=== PATIENT | female | born 1995 | race Caucasian/White ===

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

== ENCOUNTER 2024-05-20 09:55 | Inpatient (IN) ==
--- NOTE | 2024-05-20 10:21 | Emergency Department Note ---
Impression & Plan Elevated troponin ADMIT ED Provider Note HPI: History obtained from patient. The patient is a 29-year-old female who presents the emergency department with a chief complaint of fatigue, dyspnea, night sweats, and generalized arthralgias. Patient states that she has been having the symptoms for about the past year, patient states over the past 2 months she feels that they are getting worse. Patient states she is been working with her PCP and her nail kegger but they are unsure as of yet what exactly is causing her symptoms. Patient states at times she does get some headaches and shortness of breath as well. Patient notes that she was recently started on injectables (adalimumab) for her arthritis and she had an injection on April 28 as well as May 12 and she believes that this is actually worsened some of her symptoms. On arrival here to the ED the patient is noted to be tachycardic at 136, otherwise hemodynamically stable, she otherwise appears to be in no acute distress on my initial assessment. ROS: - Per HPI Differential Diagnosis: Rheumatoid arthritis, sepsis, urinary tract infection, pneumonia, adverse reaction to medication, myocarditis, pericarditis, pulmonary embolism, amongst other potential pathologies. *Outpatient medications and allergy history reviewed. PE: General: Alert HEENT: Normocephalic, trachea midline Eyes: Extraocular eye movement is intact, no scleral erythema Pulmonary: Clear to auscultation bilaterally, no wheezing Cardio: Tachycardic rate with regular rhythm GI: Abdomen is soft to palpation : No suprapubic tenderness MSK: No evidence of trauma or malformation of the extremities, no edema Skin: No evidence of rash Neuro: Alert, no focal deficits Psychiatric: Cooperative INDEPENDENT INTERPRETATIONS: monitor technician: (As interpreted by myself): - An order was placed for continuous cardiac monitoring - Patient was noted to be in sinus rhythm with a rate of 110 EKG: (As interpreted by myself): Rate: 104 Rhythm: Sinus tachycardia Intervals: Within normal limits ST changes: No ST elevation Time: 1028 Chest x-ray: (As interpreted by myself): No acute disease Interventions provided in ED: -IV fluid bolus Medical Decision Making: IV was established and lab work obtained, patient was placed on monitor technician. Lab work shows a mild nonspecific leukopenia at 1.83, hemoglobin is stable at 10.7, platelet count is normal. D-dimer was obtained given the patient's dyspnea and tachycardia, this is elevated at 2740, CMP does not show any evidence of any critical findings otherwise. Troponin did return elevated at 56.9 however the patient denies any chest pain. Urinalysis does not show any convincing evidence of infection and viral panel testing is negative. Lyme disease testing was added given the patient's elevated troponin. CT angiography of the chest was obtained as the patient's D-dimer was elevated, this does not show any evidence of pulmonary embolism, there is no evidence of pericardial effusion per the interpreting radiologist. On my reassessment the patient remains tachycardic, repeat troponin is down trended slightly to about 54. Given the patient's persistent tachycardia with unclear source for her troponin elevation, I do feel she would benefit from admission for observation and likely echocardiogram to be performed. Patient is in agreement to this plan, case was discussed with the on-call midlevel provider for [facility] and the patient was placed for admission in stable condition to the service of Dr. Quick. Consultants/Discussions held with other healthcare providers: -Hospitalist, Dr. Quick Disposition discussion held by myself with: -Patient and mother at the bedside Diagnosis: 1. Elevated troponin, acute, nonspecific 2. Dyspnea, acute, nonspecific 3. Sinus tachycardia Disposition: Admission Maikol Roman DO Emergency Medicine Past Med/Surg History Problem List (Updated 05/20/24 @ 14:33 by Maikol Roman DO) Elevated troponin (Acute) Anxiety Medical History No pertinent family history Anxiety Surgical History No pertinent past surgical history Family History Grandfather (Paternal) Myocardial infarction Father Myocardial infarction Family/Other Diabetes cousin Grandmother (Maternal) Pancreatoblastoma Social History Smoking Status: Never smoker Do You Dip or Chew Tobacco: No; Preferred Language: Austrian Feels Safe at Home: Yes Allergies Allergies Allergy/AdvReac Type Severity Reaction Status Date / Time adalimumab-atto Allergy Severe Chills and Unverified 05/20/24 12:40 [From Amjevita(CF)] hot flashes sulfasalazine Allergy Severe Unknown Unverified 05/20/24 12:40 Skin Reaction Home Meds Home Medications Medication Instructions Recorded Confirmed fluoxetine 20 mg capsule 20 mg PO QPM 04/01/24 05/20/24 norethindrone 1 mg-ethinyl 1 tab PO QPM 04/01/24 05/20/24 estradiol 20 mcg (21)-iron 75 mg (7) tablet (Melinda Fe 08/10 (28)) prednisone 5 mg tablet See Rx Instructions .Route .COMPLEX 04/01/24 05/20/24 baclofen 5 mg tablet 5 mg PO HS PRN Muscle Spasms 05/20/24 05/20/24 ferrous sulfate 325 mg (65 mg 325 mg PO Q2D 05/20/24 05/20/24 iron) tablet naratriptan 2.5 mg tablet 2.5 mg PO HS PRN Headache 05/20/24 05/20/24 topiramate 25 mg tablet See Rx Instructions .Route .COMPLEX 05/20/24 05/20/24 Results & Data (ED) Vital Signs Vital Signs - 24 hr 05/20/24 10:02 05/20/24 10:18 05/20/24 10:48 Temperature 37.6 C H Temperature Source Temporal Artery Scan Pulse Rate 136 H 109 H Pulse Rate [Apical] Pulse Rhythm Regular Respiratory Rate 18 18 Respiratory Effort / Characteristics Non-Labored Spontaneous Respiratory Depth Normal Respiratory Pattern Regular Blood Pressure 107/66 Blood Pressure [Right Arm] Blood Pressure Mean 79 Blood Pressure Mean [Right Arm] Pulse Oximetry 97 99 Oxygen Delivery Method Room Air Room Air Room Air Sepsis Recent Fever Within 48 Hours No Sepsis New/Unexplained Change in Mental Status No Sepsis Action Taken by Nursing No Action Required 05/20/24 11:56 05/20/24 12:32 05/20/24 12:46 Temperature Temperature Source Pulse Rate 112 H Pulse Rate [Apical] 113 H 89 Pulse Rhythm Respiratory Rate 20 20 Respiratory Effort / Characteristics Non-Labored Non-Labored Respiratory Depth Normal Normal Respiratory Pattern Blood Pressure Blood Pressure [Right Arm] 107/64 Blood Pressure Mean Blood Pressure Mean [Right Arm] 78 Pulse Oximetry 98 98 Oxygen Delivery Method Room Air Room Air Sepsis Recent Fever Within 48 Hours Sepsis New/Unexplained Change in Mental Status Sepsis Action Taken by Nursing 05/20/24 13:12 Temperature Temperature Source Pulse Rate Pulse Rate [Apical] 109 H Pulse Rhythm Respiratory Rate 20 Respiratory Effort / Characteristics Non-Labored Respiratory Depth Normal Respiratory Pattern Blood Pressure Blood Pressure [Right Arm] 109/67 Blood Pressure Mean Blood Pressure Mean [Right Arm] 81 Pulse Oximetry 99 Oxygen Delivery Method Room Air Sepsis Recent Fever Within 48 Hours Sepsis New/Unexplained Change in Mental Status Sepsis Action Taken by Nursing Laboratory Data 05/20/24 10:35 05/20/24 10:35 Lab Results 05/20/24 05/20/24 05/20/24 Range/Units 10:35 12:28 12:43 WBC 1.83 L (4.8-10.8) K/ul RBC 4.05 L (4.20-5.40) M/uL Hgb 10.7 L (12.0-16.0) g/dl Hct 32.2 L (37.0-47.0) % MCV 79.5 L (80.0-100.0) fL MCH 26.4 (25.0-34.0) pg MCHC 33.2 (32.0-36.0) g/dL RDW Std Deviation 50.4 H (36.4-46.3) fL RDW Coeff of Jackie 17.6 H (11.5-14.5) % Plt Count 331 (130-400) K/uL MPV 8.2 L (9.4-12.4) fL Immature Gran % (Auto) 1.6 % Neut % (Auto) 82.0 % Lymph % (Auto) 14.8 % Moore % (Auto) 1.6 % Eos % (Auto) 0.0 % Baso % (Auto) 0.0 % Neut # (Auto) 1.50 (1.40-6.50) K/uL Lymph # (Auto) 0.27 L (1.20-3.40) K/uL Moore # (Auto) 0.03 L (0.11-0.59) K/uL Eos # (Auto) 0.00 (0.00-0.50) K/uL Baso # (Auto) 0.00 (0.00-0.20) K/uL Immature Gran # (Auto) 0.03 (0.01-0.20) K/uL PT 9.8 (9.0-12.0) Seconds INR 0.9 (0.9-1.1) D-Dimer 2740 H* (0-500) ug/L FEU Sodium 134 L (136-145) mmol/L Potassium 3.9 (3.5-5.1) mmol/L Chloride 100 (98-107) mmol/L Carbon Dioxide 29 (21-32) mmol/L Anion Gap 5 (3-11) BUN 11 (6-23) mg/dl Creatinine 0.58 L (0.6-1.2) mg/dl Est Cr Clr Drug Dosing 125.8 ml/min eGFR 127.12 BUN/Creatinine Ratio 19.0 (10-20) Glucose 97 (70-99(Fasting)) mg/dl Calcium 8.2 L (8.6-10.3) mg/dl Total Bilirubin 0.4 (0.2-1.0) mg/dl AST 145 H (13-39) U/L ALT 48 (7-52) U/L Alkaline Phosphatase 92 (34-104) U/L Troponin I High Sens 56.9 H* 54.3 H* (0-14) pg/ml Total Protein 6.8 (6.0-8.3) gm/dl Albumin 2.8 L (3.4-5.0) gm/dl Globulin 4.0 (2.5-4.0) gm/dl Albumin/Globulin Ratio 0.7 L (0.9-2) Lipase 58 (11-82) U/L TSH 3.824 (0.300-4.500) uIu/ml Urine Color Yellow Urine Appearance Clear (Clear) Urine pH 8.0 H (4.5-7.5) Ur Specific [place] 1.037 H (1.000-1.030) Urine Protein 1+ H (Negative) Urine Glucose (UA) Negative (Negative) Urine Ketones Negative (Negative) Urine Blood Trace H (Negative) Urine Nitrite Negative (Negative) Urine Bilirubin Negative (Negative) Urine Urobilinogen Negative (Negative) Ur Leukocyte Esterase Negative (Negative) Urine WBC (Auto) 0-5 (0-5) /hpf Urine RBC (Auto) 0-2 (0-2) /hpf U Hyaline Cast (Auto) 0-2 (0-2) /lpf U Epithel Cells (Auto) 0-2 (0-2) /hpf Urine Bacteria (Auto) None Seen (None Seen) Adenovirus (PCR) Not Detected (NotDetected) B. pertussis DNA (PCR) Not Detected (NotDetected) B.parapertussis DNA PCR Not Detected (NotDetected) C. pneumoniae DNA (PCR) Not Detected (NotDetected) Coronavirus OC43 (PCR) Not Detected (NotDetected) Coronavirus HKU1 (PCR) Not Detected (NotDetected) Coronavirus 229E (PCR) Not Detected (NotDetected) SARS-CoV-2 (PCR) Not Detected (NotDetected) Coronavirus NL63 (PCR) Not Detected (NotDetected) Human Metapneumovir PCR Not Detected (NotDetected) Influenza Type A (PCR) Not Detected (NotDetected) Influenza Type B (PCR) Not Detected (NotDetected) M. pneumoniae (PCR) Not Detected (NotDetected) Parainfluenza 1 (PCR) Not Detected (NotDetected) Parainfluenza 2 (PCR) Not Detected (NotDetected) Parainfluenza 3 (PCR) Not Detected (NotDetected) Parainfluenza 4 (PCR) Not Detected (NotDetected) RSV (PCR) Not Detected (NotDetected) Entero/Rhino (PCR) Not Detected (NotDetected) Administered Medications Discontinued Medications Sodium Chloride (Nss) 1,000 mls @ 999 mls/hr IV .Q1H1M ONE Stop: 05/20/24 12:38 Last Infusion: 05/20/24 13:14 Dose: Infused Documented By: Admin: 05/20/24 11:44 Dose: 999 mls/hr Documented By: JESSICA Ioversol (Optiray 320 125ml) 118 ml IV ONCE ONE Stop: 05/20/24 12:06 Last Admin: 05/20/24 12:06 Dose: 118 ml Documented By: CE Imaging Data Radiologist's Impression: Chest X-Ray 05/20/24 10:18 SINGLE VIEW CHEST CLINICAL HISTORY: Generalized weakness. FINDINGS: An AP, portable, upright chest radiograph is compared to study dated 10/19/2023. The cardiomediastinal silhouette is unremarkable. The lungs and pleural spaces are clear. No pneumothorax is seen. The bony thorax is grossly intact. IMPRESSION: No active disease in the chest. ACT 112: Negative or not required by law. Electronically signed by: Obdulio Bliss M.D. 05/20/2024 11:01 AM Chest CTA 05/20/24 11:38 CT ANGIOGRAM OF THE CHEST CLINICAL HISTORY: Tachycardia. Lightheadedness. Nausea. COMPARISON STUDY: Chest x-ray dated 05/20/2024. TECHNIQUE: Following the IV administration of 118 cc of Optiray 320, CT angiogram of the chest was performed from the upper abdomen to the thoracic inlet utilizing the pulmonary embolus protocol. Images are reviewed in the axial, sagittal, and coronal planes. 3-D MIPS images are created and assessed. IV contrast was administered without complication. A dose lowering technique was utilized adhering to the principles of ALARA. CT DOSE: 512.78 mGy.cm FINDINGS: Thyroid: Imaged portions of the thyroid gland are normal in size and attenuation. Thoracic aorta: The thoracic aorta is normal in caliber and demonstrates standard 3-vessel arch anatomy. No dissection is seen. Pulmonary vasculature: The pulmonary trunk is normal in caliber. There are no filling defects identified in main, lobar, or segmental pulmonary branches to suggest pulmonary embolus. Heart: The heart is normal in size and without pericardial effusion. Lungs and pleural spaces: There is a 4 mm right middle lobe pulmonary nodule seen on axial image #110. This is of doubtful significance in this age group. No airspace consolidation or pleural effusion is identified. The trachea and central airways are clear. There is mild dependent atelectasis. Mediastinum: There is no mediastinal lymphadenopathy. Loren: Clear. Axillae: There are shotty axillary lymph nodes. Upper abdomen: Partially visualized upper abdominal viscera is within normal limits. Skeletal structures: No lytic or blastic bony lesions are seen. IMPRESSION: 1. There is no evidence of pulmonary embolus in the main, lobar, or segmental pulmonary arteries. 2. There is no airspace consolidation or pleural effusion. 3. Additional findings as above. ACT 112: Negative or not required by law. Electronically signed by: Obdulio Bliss M.D. 05/20/2024 12:29 PM Discharge Plan Visit Data Chief Complaint: Allergic Reaction Stated Complaint: ALLERGIC/NEW MED, CHILLS/HOT, PALPITATION, NAUSEA ED Provider: Maikol Roman Discharge Problem: Elevated troponin Forms Stand Alone Forms: [facility] Prescriptions Prescriptions: No Action topiramate 25 mg tablet See Rx Instructions .ROUTE .COMPLEX Rx Instructions: As of 05/20/24 - Pt is still on 25mg at bedtime, will start increase on 05/25/24 . Original Directions: TAKE 1 TABLET BY MOUTH EVERY NIGHT AT BEDTIME FOR 7 DAYS, THEN 2 TABS AT BEDTIME FOR 7 DAYS, THEN 3 TABS AT BEDTIME FOR 7 DAYS, THEN 4 TABS AT BEDTIME ferrous sulfate 325 mg (65 mg iron) Tablet 325 mg PO Q2D naratriptan 2.5 mg tablet 2.5 mg PO HS PRN (Reason: Headache) baclofen 5 mg tablet 5 mg PO HS PRN (Reason: Muscle Spasms) norethindrone-e.estradiol-iron [Melinda Doll 08/10 ()] 1 mg-20 mcg (21)/75 mg (7) tablet 1 tab PO QPM fluoxetine 20 mg capsule 20 mg PO QPM prednisone 5 mg tablet See Rx Instructions .ROUTE .COMPLEX Rx Instructions: take 4 tablets by mouth daily for 7 days, 3 tablets daily for 7 days, 2 tablets daily for 7 days, 1 tablet daily for 7 days. As of 05/20/24, pt took last dose of 10mg daily, Pt starts 5mg daily x7 days starting 05/21/24 Referrals Referrals: Payal Myers MD [Primary Care Provider] -
--- NOTE | 2024-05-20 11:02 | XRay Report ---
SINGLE VIEW CHEST CLINICAL HISTORY: Generalized weakness. FINDINGS: An AP, portable, upright chest radiograph is compared to study dated 10/19/2023. The cardiom ediastinal silhouette is unremarkable. The lungs and pleural spaces are clear. No pneumothorax is see n. The bony thorax is grossly intact. IMPRESSION: No active disease in the chest. ACT 112: Negative or not required by law. Electronically signed by: Obdulio Bliss M.D. 05/20/2024 11:01 AM
[2024-05-20 11:05] LABS: Hematocrit (blood only) 32.2 % (37.0-47.0); Hemoglobin 10.7 g/dl (12.0-16.0); Immature Granulocytes # (auto) 0.03 K/uL (0.01-0.20); Immature Granulocytes % (auto) 1.6 %; Lymphocytes # (auto) 0.27 K/uL (1.20-3.40); Lymphocytes % (auto) 14.8 %; Mean Corpuscular Hemoglobin 26.4 pg (25.0-34.0); Mean Corpuscular Hgb Conc 33.2 g/dL (32.0-36.0); Mean Corpuscular Volume 79.5 fL (80.0-100.0); Mean Platelet Volume 8.2 fL (9.4-12.4); Monocytes # (auto) 0.03 K/uL (0.11-0.59); Monocytes % (auto) 1.6 %; Platelet Count 331 K/uL (130-400); RDW Coefficient of Variation 17.6 % (11.5-14.5); RDW Standard Deviation 50.4 fL (36.4-46.3); Red Blood Count 4.05 M/uL (4.20-5.40); White Blood Count 1.83 K/ul (4.8-10.8)
[2024-05-20 11:22] LABS: Albumin Globulin Ratio 0.7 (0.9-2); Albumin Level 2.8 gm/dl (3.4-5.0); Bilirubin,Total 0.4 mg/dl (0.2-1.0); Calcium 8.2 mg/dl (8.6-10.3); Creatinine Clr Calc Pharmacy 125.8 ml/min; Potassium 3.9 mmol/L (3.5-5.1); Total Protein 6.8 gm/dl (6.0-8.3)
[2024-05-20 11:31] LABS: Troponin I High Sensitivity 56.9 pg/ml (0-14)
[2024-05-20 11:35] LABS: INR 0.9 (0.9-1.1); Prothrombin Time 9.8 Seconds (9.0-12.0)
[2024-05-20 11:38] LABS: D Dimer 2740 ug/L FEU (0-500); Thyroid Stimulating Hormone 3.824 uIu/ml (0.300-4.500)
--- OUTSIDE RECORDS SUMMARY | 2024-05-20 11:43 | External Medical Summary | Summary of Care ---
Author Name Unknown Organization [facility] Address [address] [place] [address] Phone [phone] Care Team Providers Care Telemarketer Name Role Phone Payal Myers MD Primary Care Provider [phone] Reason for Referral * Evaluate & Treat - Unlimited Visits (Within 10 days (routine)) - Pending Review Specialty Diagnoses / Procedures Referred By Conttaryn t Referred To Contact Pharmacist / Pharmacy Diagnoses Seronegative inflammatory arthritis Michelle Lima CRNP [address] [facility] [facility] [place] [address] Referral ID Status Reason Start Date Expiration Date Visits Requested Visits Authorized [id number] Pending Review Specialty Services Required 04/13/2024 10/10/2024 99 99 Question Answer Referral Priority Within 10 days (routine) Referring Provider Role: Specialist Specialty: Rheum Reason for Referral: Med Education Where should this appointment be scheduled? [facility] Reason for Visit * Reason Onset Date Comments Precert Approved 04/13/2024 AMJEVITA(CF) 40 MG/0.4ML AUTOIN Encounter Details Date Type Department Care Team (Late st Contact Info) Description 04/13/2024 Refill Rheumatology [address] [place] [phone] Michelle Lima CRNP [address] [facility] [place] [address] Seronegative inflammatory arthritis* Allergies Active Allergy Reactions Criticality Noted Date Comments Sulfasalazine Rash Medium 10/23/2023 documented as of this encounter (statuses as of 04/17/2024) Medications Medication Sig Dispensed Refills Start Date End Date Status 08/10 1-20 MG-MCG per tablet 1 Tablet in the morning. 11/16/2016 Active FLUoxetine HCl 20 MG Oral Capsule (PROzac)Indications :LUDA (generalized anxiety disorder) Take 1 Capsule by mouth in the morning. 90 Capsule 3 01/16/2024 Active Ferrous Sulfate 325 (65 Fe) MG Oral Tablet Delayed Release Take 1 Tablet by mouth. Every other day. Active predniSONE 5 MG Oral Tablet (Deltasone) Take 4 Tablets by mouth daily for 14 days, THEN 3 Tablets daily for 14 days, THEN 2 Tablets daily for 14 days, THEN 1 Tablet daily for 14 days. 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 Iron deficiency 02/28/2024 LUDA (generalized anxiety disorder) 10/09/2023 Seronegative inflammatory arthritis 10/09/2023 documented as of this encounter (statuses as of 04/17/2024) Immunizations Name Administration Dates Next Due COVID-19 mRNA, LNP-s, No Pre serve, 2-Dose Series (Moderna) 12/04/2020,11/06/2020 DTaP Dipth/Tet/Acell Pertussis (Infanrix), Peds 09/25/2001,10/18/1998,1997,08/19,1997 H1N1 2009 Influenza, IM 05/30/2009 HIB PRP-T, 4 Dose, PF, IM (H iberix, ActHib) 04/20/1998,1997,1997,06/22 HPV Vaccine, 4-Valent 09/13/2009,05/13/2009,02/19 Haemophilius B (HIB), unspecified 1997,1997,1997,06/22 Hepatitis A, Ped/Adol., 18 y ear and below, 2-Dose 02/06/2013,02/05/2012 Hepatitis B, 0-19 yrs 1997,1997,03/23 IPV - Polio Virus Vaccine (Inact) 2001,04/20/1998,1997,06/22 MMR - Measles/Mumps/Rubella Vaccine 09/25/2001,0 04/20/1998 Meningococcal Conjugate Vacc ine (Menactra/Menveo) 02/04/2014,01/30/2010 Seasonal Influenza, PF, 6 M & above, IM , (FluLaval or Fluzone) 05/02/2020,08/03/2019 Seasonal Influenza, Quadrivalent, ID 05/02/2020, 08/03/2019 TDAP (age 10 and older)(Boostrix) 01/12/2021,06/2010 Varicella Vaccine (Chicken Pox) 05/30/2007,04/20 documented as of this encounter Social History Tobacco Use Types Packs/Day Years Used Date Smoking Tobacco: Never Smokeless Tobacco: Never Alcohol Use Standard Drinks/Week Comments Yes 0 (1 standard drink = 0.6 oz pur e alcohol) occasionaly PHQ-2 Answer Date Recorded PHQ Adult Total Score 0 02/28/2024 Hunger Vital Sign Answer Date Recorded Within the past 12 months, y ou worried that your food would run out before you got the money to buy more. Never true 02/28/20 24 Within the past 12 months, t he food you bought just didn't last and you didn't have money to get more. Never true 02/28/2024 Childcare Answer Date Recorded Do you feel overwhelmed with taking care of a child, family member or friend? No 02/28/2024 Does your family need help f inding childcare? (Household - for ages 0-17 years) Not on file 02/28/2024 Clothing Answer Date Recorded Have you been unable to get clothing when it was really needed? No 02/28/2024 Is your family able to get c lothes or diapers when needed? (Household - for ages 0-17 years) Not on file 02/28/2024 Personal Safety Answer Date Recorded Do you feel unsafe or have concerns for your saf ety? No 02/28/2024 Do you have concerns for you r family's safety? (Household - for ages 0-17 years) Not on file 02/28/2024 Utilities Answer Date Recorded Do you have trouble paying y our heating, water, or electric bill? No 02/28/2024 Is your family able to pay t he heat, water, or electric bill? (Household - for ages 0-17 years) Not on file 02/28/2024 Does your family have access to good internet? (Household - for ages 0-17 years) Not on file 02/28/2024 Employment Status Answer Date Recorded Are you unemployed or without regular income? No 02/28/2024 Does the household have a re lar source of income? (Household - for ages 0-17 years) Not on file 02/28/2024 Social Connections Answer Date Recorded How often do you feel lonely or isolated from th ose around you? Never 02/28/2024 Financial Resource Strain Answer Date R ecorded Do you have any trouble payi ng for your medications, or do you think you might in the future? No 02/28/2024 Does your family have troubl e paying for medicine? (Household - for ages 0-17 years) Not on file 02/28/2024 Transportation Needs Answer Date Record ed Do you have trouble getting a ride to medical visits or work? (Adult - for ages 18 years and over) Not on file 02/28/2024 Does your family have a hard time getting a ride to doctors visits? (Household - for ages 0-17 years) Not on file 02/28/2024 Has lack of transportation k ept you from medical appointments, meetings, work, or from getting things needed for daily living? Check all that apply. No 02/28/2024 Do you (or your family) have trouble finding or paying for a ride (transportation)? (Household - for ages 0-17 years) Not on file 02/28/2024 Housing Stability Answer Date Recorded Do you currently live in a s helter or have no steady place to sleep at night? No 02/28/2024 Do you think you are at risk of becoming homeless? (Adult - for ages 18 years and over) Not on file 02/28/2024 Does your family worry about paying for your home or becoming homeless? (Household - for ages 0-17 years) Not on file 0 02/28/2024 Are you homeless or worried that you might be in the future? No 02/28/2024 Are you (or your family) nnamdi eless or worried that you might be in the future? (Household - for ages 0-17 years) Not on file Food Insecurity Answer Date Recorded Do you need food for this week? No 02/28/2024 Are you able to get enough f ood for your family? (Household - for ages 0-17 years) Not on file 02/28/2024 Does your family need food t his week? (Household - for ages 0-17 years) Not on file 02/28/2024 Do you always have enough fo od for your family? (Household - for ages 0-17 years) Not on file 02/28/2024 Sex and Gender Information Value Date Recorded Sex Assigned at Female 08/03/2019 10:35 AM EST Gender Identity Female 08/03/2019 10:35 AM EST Sexual Orientation Straight 08/03/2019 10 :35 AM EST Job Start Date Occupation Industry Not on file Not on file Not on file documented as of this encounter Miscellaneous Notes * Addendum Note - Lu Mandel CPhT - 04/17/2024 1:15 PM EDTAddended by: LU MANDEL on: 04/17/2024 01:15 PM Modules accepted: Orders * Telephone Encounter - Lu Mandel CPhT - 04/17/2024 1:15 PM EDT Rheumatology Pre-Certification Response Approved - Script pended - to be filled at [facility] (P: [phone]) Thank you, Lu Mandel CPhT-Adv Engineering Equipment Operator Inventory Control Supervisor [facility] ([facility]) 04/17/2024,1:15 PM * Telephone Encounter - Екатерина Love CPhT - 04/15/2024 12:09 PM EDT Patient Phone Numbers Sent [employer] message to patient to schedule MTD appointment for Medication Education. Appointment scheduled as noted below. 04/27/2024 Thank you, Екатерина Love CPhT Engineering Equipment Operator II [facility] ([facility]) 04/15/2024,12:09 PM * Telephone Encounter - Michelle Lima CRNP - 04/13/2024 4:12 PM EDT Please proceed with Hannah. ID cleared her in the past. Thank you * Telephone Encounter - Nirali Begum [facility] - 04/13/2024 11:41 AM EDT Rheumatology Pre-Certification Request Kathrin: I see that the TB was indeterminate but CXR seems WNL. Please advise if we are ok to proceed. Medication/Disease State Information: Diagnosis: Rheumatoid arthritis of multiple sites without rheumatoid factor [M06.09] Patient Age: [age] year old Medication/Dose/Route/Interval: Amjevita 40mg/0.4mL every other week Site of Care: Self-Administered Insurance considerations: [facility] Commercial: Formulary reviewed and medication selection on formulary Previously Tried Therapy: Previously tried and resulted in inadequate response/therapeutic failure: SSZ, Cimzia, MTX (Childbearing age), NSAID, Prednisone Required Screening Information: Vaccination(s): will coordinate care for pertinent vaccine TB Testing:Completed under scans, care everywhere or epic Hepatitis B Screenings: Completed under scans, care everywhere or epic Hepatitis C Screenings: Completed under scans, care everywhere or epic No active, severe, and/or uncontrolled infection Rheumatology Office Information: Jet Blade Polisher: MICHELLE LIMA Rheumatology Pharmacist: Nirali Begum Rheumatology Pharmacist Appointment Request Department & Provider: Rheumatology [address] [[id number]] - Pharmacist #1 Rheumatology [facility] [[id number]] Patient to be scheduled for visit type: Telephonic Medicine Visit [[id number]] Length of visit: 30 min Reason for visit: Med Edu: Narda MOSQUEDA Time Frame: within 1-2 weeks Request routed to [facility] Specialty Scheduling Pool ([id number]) Please route this encounter back to Rheum Pharmacist Refill Pool/Class [p [phone]] if unable to schedule patient after 3 attempts. * Telephone Encounter - LimaMichelle CRNP - 04/13/2024 11:16 AM EDT Rheumatology Education, Pre-Certification, and/or Pharmacist Co-Management Request Medication Education: yes Pre-Certification: [facility]: Pre-cert for Prednisone, DMARDs & IV/IM/SC Osteoporosis Meds (routeto rheumatology pharmacist pool p [phone]) Pharmacist Co-Management ([facility] ONLY; [place] select "no"): No Pharmacist Co-Management Medication/Disease State Information: Diagnosis: Rheumatoid arthritis of multiple sites without rheumatoid factor [M06.09] Medication:Adalimumab (Humira and biosimilars) per specialty workflow: 40 mg SQ every other week Failed or Intolerant to or Contraindicated: Cimzia and Sulfasalazine Comments Labs up to date Rheumatology Pharmacist Disease Modifying Antirheumatic Drug (DMARD) Co- Management (If Applicable) Minimum frequency patient should be seen in person for medication management: As appropriate per clinical condition and patient status By my signature, I understand that my patient will have [facility] per established policies, procedures, and protocols. I also certify that this referral may serve as an initiation of service for the management of drug therapy in the above noted patient. [facility] providers will be responsible for scheduling patient visits, obtaining appropriate laboratory studies, and adjusting medication management therapy per patient's need, in addition to those roles spelled out in the clinic policy, procedures, and drug management protocols. I understand that the service provided by the [facility] is voluntary and have informed patient that they can refuse the service at their discretion. I am aware that the [facility] Clinic will provide me with a copy of the patient encounter via my [employer] In-Basket. I authorize the [facility] to carryout these activities on my behalf. I consider this program to be a necessary part of the patient's medical care. BRYCE Rhodes documented in this encounter Plan of Treatment Upcoming Encounters Date Type Department Care Team (Late st Contact Info) Description 04/27/2024 9:30 AM EDT Telemedicine Rheumatology, [address] [address] Agc5, Pharmacist Rheumatology [address] [place] [address] 05/28/2024 1:30 PM EST Office Visit Rheumatology [address] [place] [address] Michelle Lima CRNP [address] [place] [address] [place] [address] 08/31/2024 8:20 AM EST Office Visit Family Practice [facility] [address] [facility] [place] [address] Payal Myers MD [address] [facility] [place] [address] Scheduled Referrals Name Type Priority Associated Diagnoses Orde r Schedule PHARMACIST MEDS THERAPY MGMT REFERRAL OP Referral Within 10 days (routine) Seronegative inflammatory arthritis Ordered: 04/13/2024 Health Maintenance Due Date Last Done Comments COVID-19 Vaccine ( season) 2024 12/04/2020, 11/06/2020 Influenza Vaccine (FLU shot) (#1) 2024 05/02/2020, 05/02/2020, 08/03/2019, Additional history exists Depression Screening 02/27/2025 02/28/2024 Pap Smear 06/25/2025 06/25/2022, 02/11/2019 DTap/Tdap Vaccines (8 - Td or Tdap) 01/12/2031 01/12/2021, 01/30/2010, 09/25/2001, Additional history exists Hepatitis B Vaccine Completed 1997, 1997, 1997 HPV (Gardasil) Vaccine Completed 0, 05/13/2009, 02/28/2009 MENINGOCOCCAL (MENACTRA/MENVEO) Completed 02/04/2014, 01/30/2010 Gonorrhea / Chlamydia Screen Discontinued 09/10/2023, 11/17/2016 Pneumococcal Vaccine: Pediatrics (0 to 5 Years) and At-Risk Patients (6 to 64 Years) Aged Out No longer eligible based on patient's age to complete this topic documented as of this encounter Medical Devices Not on filedocumented as of this encounter Visit Diagnoses Diagnosis Seronegative inflammatory arthritis- Primary documented in this encounter Care Teams Telemarketer Relationship Specialty Start Date End Date Payal Myers MD [address] [place] [address] PCP - General Family Medicine 01/21/24 documented as of this encounter
--- OUTSIDE RECORDS SUMMARY | 2024-05-20 11:43 | External Medical Summary | Summary of Care ---
Author Name Unknown Organization [facility] Address [address] [place] [address] Phone [phone] Care Team Providers Care Cook Room Supervisor Name Role Phone Payal Myers MD Primary Care Provider [phone] Reason for Referral * Evaluate & Treat - Unlimited Visits (Within 10 days (routine)) - Pending Review Specialty Diagnoses / Procedures Referred By Miko t Referred To Contact Pharmacist / Pharmacy Diagnoses Seronegative inflammatory arthritis Michelle Lima CRNP [address] [employer] [place] [place] [address] Referral ID Status Reason Start Date Expiration Date Visits Requested Visits Authorized [id number] Pending Review Specialty Services Required 04/13/2024 10/10/2024 99 99 Question Answer Referral Priority Within 10 days (routine) Referring Provider Role: Specialist Specialty: Rheum Reason for Referral: Med Education Where should this appointment be scheduled? [facility] Reason for Visit * Reason Onset Date Comments Precert Approved 04/13/2024 AMJEVITA(CF) 40 MG/0.4ML AUTOIN Encounter Details Date Type Department Care Team (Late st Contact Info) Description 04/13/2024 Telephone Rheumatology [address] [place] [phone] Michelle Lima CRNP [address] [facility] [place] [address] Precert Approved (AMJEVITA(CF) 40MG/0.4ML ... 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 Appointment scheduled as noted below. 04/27/2024 Thank you, Екатерина Love CPhT [employer] Print[employer] Worker II [facility] ([facility]) 04/15/2024,12:09 PM * Telephone Encounter - Michelle Lima CRNP - 04/13/2024 4:12 PM EDT Please proceed with Hannah. ID cleared her in the past. Thank you * Telephone Encounter - Nirali Begum [facility] - 04/13/2024 11:41 AM EDT Rheumatology Pre-Certification Request Kathrin: I see that the TB was indeterminate but CXR seems WNL. Please advise if we are ok to proceed. Medication/Disease State Information: Diagnosis: Rheumatoid arthritis of multiple sites without rheumatoid factor [M06.09] Patient Age: [age] year old Medication/Dose/Route/Interval: Amjevita 40mg/0.4mL every other week Site of Care: Self-Administered Insurance considerations: [facility] Commercial: Formulary reviewed and medication selection on [...] severe, and/or uncontrolled infection Rheumatology Office Information: Special Education Instructor: MICHELLE LIMA Rheumatology Pharmacist: Nirali Begum Rheumatology Pharmacist Appointment Request Department & Provider: Rheumatology [address] [[id number]] - Pharmacist #1 Rheumatology [facility] [[id number]] Patient to be scheduled for visit type: Telephonic Medicine Visit [[id number]] Length of visit: 30 min Reason for visit: Med Edu: Narda MOSQUEDA Time Frame: within 1-2 weeks Request routed to [facility] Specialty Scheduling Pool ([id number]) Please route this encounter back to Rheum Pharmacist Refill Pool/Class [p [phone]] if unable to schedule patient after 3 attempts. * Telephone Encounter - Michelle Lima CRNP - 04/13/2024 11:16 AM EDT Rheumatology Education, Pre-Certification, and/or Pharmacist Co-Management Request Medication Education: yes Pre-Certification: [facility]: Pre-cert for Prednisone, DMARDs & IV/IM/SC Osteoporosis Meds (route rheumatology pharmacist pool p [phone]) Pharmacist Co-Management ([facility] ONLY; [place] select "no"): No Pharmacist Co-Management Medication/Disease State [...] will have medication [facility] ([facility]) per established policies, procedures, and protocols. I also certify that this referral may serve as an initiation of service for the management of drug therapy in the above noted patient. [facility] providers will be responsible for scheduling patient visits, obtaining appropriate laboratory studies, and adjusting medication management therapy per patient's need, in addition to those roles spelled out in the clinic policy, procedures, and drug management protocols. I understand that the service provided by the [facility] Clinic is voluntary and have informed patient that they can refuse the service at their discretion. I am aware that the [facility] Clinic will provide me with a copy of the patient encounter via my [employer] In-Basket. I authorize the [facility] Clinic to carryout these activities on my behalf. I consider this program to be a necessary part of the patient's medical care. BRYCE Rhodes documented in this encounter Plan of Treatment Upcoming Encounters Date Type Department Care Team (Late st Contact Info) Description 04/27/2024 9:30 AM EDT Telemedicine Rheumatology, [address] [place] [address] Agc5, Pharmacist Rheumatology [address] [place] [address] 05/28/2024 1:30 PM EST Office Visit Rheumatology [facility] [address] [place] [address] Michelle Lima CRNP [address] [place] [address] 08/31/2024 8:20 AM EST Office Visit Family Practice [facility] [address] [facility] [place] [address] Payal Myers MD [address] [facility] [place] [address] Scheduled Referrals Name Type Priority Associated Diagnoses [...] Primary documented in this encounter Care Teams Cook Room Supervisor Relationship Specialty Start Date End Date Payal Myers MD [address] [place] [address] PCP - General Family Medicine 01/21/24 documented as of this encounter
--- OUTSIDE RECORDS SUMMARY | 2024-05-20 11:43 | External Medical Summary | Summary of Care ---
Author Name Unknown Organization [facility] Address [address] [place] [address] Phone [phone] Care Team Providers Care Fulfillment Associate Name Role Phone Payal Myers MD Primary Care Provider [phone] Reason for Visit * Reason Onset Date Comments Medication Refill 04/17/2024 Encounter Details Date Type Department Care Team (Late st Contact Info) Description 04/17/2024 [place]ill [place] [address] [place], [place] [phone] Michelle Goodwin CRNP [address] [place] [address] [place] [address] Allergies Active Allergy Reactions Criticality Noted Date Comments Sulfasalazine Rash Medium 10/23/2023 documented as of this encounter (statuses as of 04/17/2024) Medications Medication Sig Dispensed Refills Start Date End Date Status 08/10 1-20 MG-MCG per tablet 1 Tablet in the morning. 11/16/2016 Active FLUoxetine HCl 20 MG Oral Capsule (PROzac)Indication s:LUDA (generalized anxiety disorder) Take 1 Capsule by [...] 14 days. 140 Tablet 04/08/2024 06/03/2024 Active Amjevita 40 MG/0.4ML Subcutaneous Solution Auto-injector (Adalimumab-atto) Inject 40 mg under the skin every 14 days. 0.8 mL 2 04/17/2024 Active Amjevita 40 MG/0.4ML Subcutaneous Solution Auto-injector (Adalimumab-atto) Inject 40 mg under the skin every 14 days. 04/17/2024 04/17/2024 Discontinued (Refill) documented as of this encounter (statuses as [...] 02/28/2024 Does the household have a re gular source of income? (Household - for ages [...] encounter Miscellaneous Notes * Telephone Encounter - René Khan RPh - 04/17/2024 2:28 PM EDT Rheumatology: Refill Request(s) Per review of the refill parameters, Medication was refilled René Khan RPh [facility] Clinical Pharmacist Rheumatology Department 04/17/2024,2:28 PM documented in this encounter Plan of Treatment Upcoming Encounters Date Type Department Care Team (Late st Contact Info) Description 04/27/2024 9:30 AM EDT Telemedicine Rheumatology, [address] [address] Agc5, Pharmacist Rheumatology [address] [place] [address] 05/28/2024 1:30 PM EST Office Visit Rheumatology [place] [phone] [facility] [place], [place] [address] Michelle Goodwin CRNP [address] [email or web address] [place], [place] [address] 08/31/2024 8:20 AM EST Office Visit Family Practice [address] [place] [address] [facility] [place], [place] [address] Payal Myers MD [address] [facility] [place] [address] Health Maintenance Due Date Last Done Comments [...] Not on filedocumented as of this encounter Care Teams Fulfillment Associate Relationship Specialty Start Date End Date Payal Myers MD [address] [place] [address] PCP - General Family Medicine 01/21/24 documented as of this encounter
--- OUTSIDE RECORDS SUMMARY | 2024-05-20 11:43 | External Medical Summary | Summary of Care ---
Author Name Unknown Organization [facility] Address [address] [place] [address] Phone [phone] Care Team Providers Care Digital Data Analyst Name Role Phone Payal Myers MD Primary Care Provider [phone] Reason for Referral * Evaluate & Treat - Unlimited Visits (Within 10 days (routine)) - Pending Review Specialty Diagnoses / Procedures Referred By Conttaryn t Referred To Contact Pharmacist / Pharmacy Diagnoses Seronegative inflammatory arthritis Michelle Lima CRNP [address] [facility] [place] [address] Referral ID Status Reason Start Date Expiration Date Visits Requested Visits Authorized [id number] Pending Review Specialty Services Required 04/13/2024 10/10/2024 99 99 Question Answer Referral Priority Within 10 days (routine) Referring Provider Role: Specialist Specialty: Rheum Reason for Referral: Med Education Where should this appointment be scheduled? [facility] Reason for Visit * Reason Onset Date Comments Precert In Process 04/13/2024 24 DI GHP AMJEVITA(CF) 40MG/0.4ML AUTOIN Encounter Details Date Type Department Care Team (Late st Contact Info) Description 04/13/2024 Telephone Rheumatology [address] [place] [address] Michelle Lima CRNP [address] [facility] [place] [address] Precert In Process (24 DI GHP AMJEVITA... 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 Appointment scheduled as noted below. 04/27/2024 Thank you, Екатерина Love CPhT City Designer [facility] 04/15/2024,12:09 PM * Telephone Encounter - Michelle Lima CRNP - 04/13/2024 4:12 PM EDT Please proceed with Hannah. ID cleared her in the past. Thank you * Telephone Encounter - Nirali Begum [facility] - 04/13/2024 11:41 AM EDT Rheumatology Pre-Certification Request Kathrin: I see that the TB was indeterminate but CXR seems WNL. Please advise if we are ok to proceed. Medication/Disease State Information: Diagnosis: Rheumatoid arthritis of multiple sites without rheumatoid factor [M06.09] Patient Age: [age] year old Medication/Dose/Route/Interval: Amjevita 40mg/0.4mL every other week Site of Care: Self-Administered Insurance considerations: [employer] Commercial: Formulary reviewed and medication selection on [...] severe, and/or uncontrolled infection Rheumatology Office Information: Set And Exhibit Designer: MICHELLE LIMA Rheumatology Pharmacist: Nirali Begum Rheumatology Pharmacist Appointment Request Department & Provider: Rheumatology [address] [[id number]] - Pharmacist #1 Rheumatology [facility] [[id number]] Patient to be scheduled for visit type: Telephonic Medicine Visit [[id number]] Length of visit: 30 min Reason for visit: Med Edu: Narda MOSQUEDA Time Frame: within 1-2 weeks Request routed to [facility] Specialty Scheduling Pool ([id number]) Please route this encounter back to Rheum Pharmacist Refill Pool/Class [p [phone]] if unable to schedule patient after 3 attempts. * Telephone Encounter - Michelle Lima CRNP - 04/13/2024 11:16 AM EDT Rheumatology Education, Pre-Certification, and/or Pharmacist Co-Management Request Medication Education: yes Pre-Certification: [facility]: Pre-cert for Prednisone, DMARDs & IV/IM/SC Osteoporosis Meds ([facility] rheumatology pharmacist pool p [phone]) Pharmacist Co-Management ([facility] ONLY; Remigio select "no"): [...] will have medication therapy managed by [facility] ([facility]) per established policies, procedures, and protocols. I also certify that this referral may serve as an initiation of service for the management of drug therapy in the above noted patient. [facility] providers will be responsible for scheduling patient visits, obtaining appropriate laboratory studies, and adjusting medication management therapy per patient's need, in addition to those roles spelled out in the clinic policy, procedures, and drug management protocols. I understand that the service provided by the [facility] is voluntary and have informed patient that they can refuse the service at their discretion. I am aware that the [facility] will provide me with a copy of the patient encounter via my [email or web address] In-Basket. I authorize the [facility] to carryout these activities on my behalf. I consider this program to be a necessary part of the patient's medical care. BRYCE Rhodes documented in this encounter Plan of Treatment Upcoming Encounters Date Type Department Care Team (Late st Contact Info) Description 04/27/2024 9:30 AM EDT Telemedicine Rheumatology, [place] [address] [place] [address] Agc5, Pharmacist Rheumatology [address] [place] [address] 05/28/2024 1:30 PM EST Office Visit Rheumatology [facility] [email or web address] [place] [address] Michelle Lima CRNP [address] [facility] [place] [address] 08/31/2024 8:20 AM EST Office Visit Family Practice [facility] [address] [facility] [place] [address] Payal Myers MD [address] [facility] [place] [address] Scheduled Referrals Name Type Priority Associated Diagnoses [...] Primary documented in this encounter Care Teams Digital Data Analyst Relationship Specialty Start Date End Date Payal Myers MD [address] [place] [address] PCP - General Family Medicine 01/21/24 documented as of this encounter
--- OUTSIDE RECORDS SUMMARY | 2024-05-20 11:43 | External Medical Summary | Summary of Care ---
Author Name Unknown Organization [facility] Address [address] [place] [address] Phone [phone] Care Team Providers Care Clerical Assigner Name Role Phone Payal Myers MD Primary Care Provider [phone] Reason for Visit * Reason Onset Date Comments Appointment 05/06/2024 Encounter Details Date Type Department Care Team (Late st Contact Info) Description 05/06/2024 Telephone Radiology, [address] [address] Lupe Martell, RT (R) Appointment Allergies Active Allergy Reactions Criticality Noted Date Comments Sulfasalazine Rash Medium 10/23/2023 documented as of this encounter (statuses as of 05/06/2024) Medications Medication Sig Dispensed Refills Start Date End Date Status 08/10 1-20 MG-MCG per tablet 1 Tablet in the morning. 11/16/2016 Active FLUoxetine HCl 20 MG Oral Capsule (PROzac)Indications: LUDA (generalized anxiety disorder) Take 1 Capsule by [...] Subcutaneous Solution Auto-injector (Adalimumab-atto) Inject 40 mg (1 pen) under the skin every 14 days. 0.8 mL 2 04/17/2024 Active Gabapentin 300 MG Oral Capsule (Neurontin)Indicatio ns:Trigeminal neuralgia Take 1 Capsule by mouth in the morning and 1 Capsule at noon and 1 Capsule before bedtime. 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 Iron deficiency 02/28/2024 LUDA (generalized anxiety disorder) 10/09/2023 Seronegative inflammatory arthritis 10/09/2023 documented as of this encounter (statuses as of 05/06/2024) Immunizations Name Administration Dates Next Due COVID-19 [...] 05/02/2020,08/03/2019 Seasonal Influenza, Quadrivalent, ID 05/02/2020, 08/03/2019 Seasonal Influenza, Trivalen t, (IIV3), PF, (Fluzone) 04/24/2024 TDAP (age 10 and older)(Boostrix) 01/12/2021,06/2010 Varicella [...] encounter Miscellaneous Notes * Telephone Encounter - Lupe Martell RT (R) - 05/06/2024 9:20 AM EDT No implants documented in this encounter Plan of Treatment Upcoming Encounters Date Type Department Care Team (Late st Contact Info) Description 05/07/2024 4:00 PM EDT Hospital Encounter Radiology, [address] [address] 05/14/2024 11:20 AM EDT Office Visit [facility] [address] [place] [place] [address] Payal Myers MD [address] [place] [address] 05/28/2024 1:30 PM EST Office Visit Rheumatology [place] [address] [employer] [place] [address] Michelle Goodwin CRNP [facility] [employer] [place] [address] 08/31/2024 8:20 AM EST Office Visit [facility] [address] [place] [address] Payal Myers MD [address] [place] [address] Health Maintenance Due Date Last Done Comments COVID-19 Vaccine ( season) 2024 12/04/2020, 11/06/2020 Depression Screening 02/27/2025 02/28/2024 Pap Smear 06/25/2025 06/25/2022, 02/11/2019 DTap/Tdap Vaccines (8 - Td or Tdap) 01/12/2031 01/12/2021, 01/30/2010, 09/25/2001, Additional history exists Hepatitis B Vaccine Completed 1997, 1997, 1997 HPV (Gardasil) Vaccine Completed 0, 05/13/2009, 02/28/2009 MENINGOCOCCAL (MENACTRA/MENVEO) Completed 02/04/2014, 01/30/2010 Gonorrhea / Chlamydia Screen Discontinued 09/10/2023, 11/17/2016 Influenza Vaccine (FLU shot) Completed 04/24/2024, 05/02/2020, 05/02/2020, Additional history exists Pneumococcal Vaccine: Pediatrics (0 to 5 Years) and At-Risk Patients (6 to 64 Years) Aged Out No longer eligible based on patient's age to complete this topic documented as of this encounter Medical Devices Not on filedocumented as of this encounter Care Teams Clerical Assigner Relationship Specialty Start Date End Date Payal Myers MD [address] [place] [address] PCP - General Family Medicine 01/21/24 documented as of this encounter
--- OUTSIDE RECORDS SUMMARY | 2024-05-20 11:43 | External Medical Summary | Summary of Care ---
Author Name Unknown Organization [facility] Address [address] [place] [address] Phone [phone] Care Team Providers Care Hot Mix Operator Name Role Phone Payal Myers MD Primary Care Provider [phone] Reason for Visit * Reason Comments Medication Management Dosage Adjustment Via Phone (anticoag Cl inic) Encounter Details Date Type Department Care Team (Late st Contact Info) Description 04/27/2024 9:30 AM EDT Telemedicine Rheumatology, [place] [address] [place] [address] Agc5, Pharmacist Rheumatology [address] [place] [address] Seronegative inflammatory arthritis* Allergies Active Allergy Reactions Criticality Noted Date Comments Sulfasalazine Rash Medium 10/23/2023 documented as of this encounter (statuses as of 04/27/2024) Medications Medication Sig Dispensed Refills Start Date [...] 1 Capsule by mouth in the morning. 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 Patient was then informed that this was a telephone call only visit. The patient agreed to participate. Visit Disposition: Routine follow-up Total call duration was 12 minutes. 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 History of CHF: no History of Malignancy: no HEALTH MAINTENANCE: Immunizations recommended: Pneumonia - and HepB series PCP said patient does not need to repeat HBV Vaccine Labs recommended: no PLAN OF ACTION Medication Regimen: START Amjevita 40mg/0.4mL every other week Follow-Up Appointment: Pharmacist: Med Education Only Physician: 05/28/24 EDUCATION Medication Information: TNF Inhibitors The following information was verbally provided to the patient and afterwards, a copy of the ACR medication guide was provided to supplement with more extensive information: Adalimumab (Brand Name: Humira), is a Tumor Necrosis Factor (TNF) inhibitor, that inhibit inflammation and prevent disease progression. This medication is available in a subcutaneous injection or as an intravenous infusion. This medication may be taken with other oral medications for RA or may be taken alone. Side effects may include but are not limited to injection site reactions such as localized burning or itching, risk of worsening heart failure, and cancer, most commonly skin cancers and lymphoma. However, a more severe allergic reaction such as swelling of the lips, difficulty breathing, and low blood pressure can occur but medications to decrease the chances of an infusion reaction are available for use as needed. Because this medication can lower the ability of your immune system to fight infections, there is an increased risk of developing infections, including TB or fungal infections. If any of the above- mentioned side effects occur, please inform your physician or rheumatology pharmacist so that we can take the next appropriate steps in your care. Please make your physician aware if you are or planning to become , have kidney/liver damage, history of heart failure, history of MS or any demyelinating disease, HIV, Hepatitis B/C, any active infections, planning to get any vaccinations, or if you have new or changed medicationson your medication list as these factors may impact your care plan. This medication may take up to 4-12 weeks to see an effect on your joints. For your safety, we will monitor you routinely through aseries of blood work. For further inquiries, please refer to the medication information provided toyou as well as your rheumatology care team. Nirali Begum RPh [facility] Clinical Pharmacist Rheumatology Department 04/27/2024,9:26 AM documented in this encounter Plan of Treatment Upcoming Encounters Date Type Department Care Team (Late st Contact Info) Description 05/07/2024 4:00 PM EDT Appointment Radiology, [address] [address] 05/14/2024 11:20 AM EDT Office [facility] [place] [address] [place] [address] Payal Myers MD [address] [place] [address] 05/28/2024 1:30 PM EST Office Visit Rheumatology [facility] [place] [address] [place] [address] Michelle Goodwin CRNP [address] [place] [address] 08/31/2024 8:20 AM EST [facility] [place] [address] [place] [address] Payal Myers MD [address] [place] [address] Health Maintenance Due Date Last Done Comments COVID-19 Vaccine (2023- season) 2024 12/04/2020, 11/06/2020 Depression Screening 02/27/2025 [...] Primary documented in this encounter Care Teams Hot Mix Operator Relationship Specialty Start Date End Date Payal Myers MD [address] [place], [place] [address] PCP - General Family Medicine 01/21/24 documented as of this encounter
--- OUTSIDE RECORDS SUMMARY | 2024-05-20 11:43 | External Medical Summary | Summary of Care ---
Author Name Unknown Organization [facility] Address [address] [place] [address] Phone [phone] Care Team Providers Care Brand Sales Manager Name Role Phone Payal Myers MD Primary Care Provider [phone] Reason for Referral * Evaluate & Treat - Unlimited Visits (Within 10 days (routine)) - Authorized Specialty Diagnoses / Procedures Referred By Conttaryn t Referred To Contact Neurology Diagnoses Left-sided headache Payal Myers MD [address] [place] [address] Referral ID Status Reason Start Date Expiration Date Visits Requested Visits Authorized [id number] Authorized Specialty Services Required 4 [phone] Question Answer Referral Priority Within 10 days (routine) Where should this appointment be scheduled? [facility] Is this referral being placed for insurance purposes ONLY No, patient needs appointment [facility] NEUROLOGY REFERRAL QUESTIONS Headache Has the patient tried 1 abortive and 1 preventative medication? Yes Reason for Visit * Reason Comments Follow Up Encounter Details Date Type Department Care Team (Latest Contact Info) Description 05/14/2024 11:20 AM EDT Office Visit Family Practice [facility] [address] [place] [address] Payal Myers MD [address] [place] [address] Left-sided headache*; Seronegative inflammatory arthritis; Surveillance for control, oral contraceptives Allergies Active Allergy Reactions Criticality Noted Date Comments Sulfasalazine Rash Medium 10/23/2023 documented as of this encounter (statuses as of 05/14/2024) Medications Medication Sig Dispensed Refills Start Date [...] daily for 14 days. 140 Tablet 04/08/2024 4 Active Amjevita 40 MG/0.4ML Subcutaneous Solution Auto-injector (Adalimumab-atto) Inject 40 mg (1 pen) under the skin every 14 days. 0.8 mL 2 04/17/2024 Active OXcarbazepine 300 MG Oral Tablet (Trileptal)Indicat ions:Left-sided headache Take 1 Tablet by mouth in the morning and 1 Tablet before bedtime. 60 Tablet 3 05/14/2024 Active Gabapentin 300 MG Oral Capsule (Neurontin)Indicat ions:Trigeminal neuralgia Take 1 Capsule by mouth in the morning and 1 Capsule at noon and 1 Capsule before bedtime. 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 Iron deficiency 02/28/2024 LUDA (generalized anxiety disorder) 10/09/2023 Seronegative inflammatory arthritis 10/09/2023 documented as of this encounter (statuses as of 05/14/2024) Immunizations Name Administration Dates Next Due COVID-19 [...] on file documented as of this encounter Last Filed Vital Signs Vital Sign Reading Time Taken Comments Blood Pressure 102/58 05/14/2024 11:10 AM EDT Pulse 86 05/14/2024 11:10 AM EDT Temperature 37.2 C (99 F) 05/14/2024 11:10 AM EDT Respiratory Rate - - Oxygen Saturation 99% 05/14/2024 11:10 AM EDT Inhaled Oxygen Concentration - - Weight 55.7 kg (122 lb 12 oz) 05/14/2024 11:10 A M EDT Height 164.5 cm (5' 4.76") 05/14/2024 11:10 AM E DT Body Mass Index 20.58 05/14/2024 11:10 AM EDT documented in this encounter Progress Notes * Payal Myers MD - 05/14/2024 12:48 PM EDT Subjective Chief Complaint Patient presents with Follow Up HPI: Bhavin Wilson is a 29 year old female. Patient is unaccompanied. The following issues were addressed today: Patient is here for follow-up. She was seen on 04/24/24 for c/o intermittent, severe pain in the left side of her face and head which she described as an electrical shock-like sensation. She was started on gabapentin, up to 300mg TID. Does not think it has helped much. Has also continued to take Tylenol daily. She had a brain MRI done that showed the following: The left superior cerebellar artery contacts the upper surface of the cisternal left trigeminal nerve segment without displacement or associated volume loss, favored to be an incidental finding. No evidence of microvascular compression or other abnormality involving the internal auditory canal structures. Started on Amjevita by rheumatology for inflammatory arthritis. She has had two injections so far without any side effects. She remains on OCPs for control. Review of Systems: See HPI Objective BP 102/58 | Pulse 86 | Temp 37.2 C (99 F) | Ht 1.645 m (5' 4.76") | Wt 55.7 kg (122 lb 12 oz) |SpO2 99% | BMI 20.58 kg/m | BSA 1.6 m Wt Readings from Last 3 Encounters: 05/14/24 55.7 kg (122 lb 12 oz) 04/24/24 54.3 kg (119 lb 12.8 oz) 02/28/24 55.1 kg (121 lb 8 oz) BP Readings from Last 3 Encounters: 05/14/24 102/58 04/24/24 108/66 02/28/24 100/60 General: Well-appearing, no acute distress Neurological: Alert and oriented, no focal deficits noted Psychiatric: Appropriate mood and affect Assessment & Plan 1. Left-sided headache Will continue to treat as possible TGN. Switch to Trileptal 300mg BID since gabapentin has been ineffective. Monitor for rash. Discussed potential decreased efficacy of OCPs and need to use back-up method such as condoms. Will refer to neurology given persistent symptoms and unremarkable MRI. - ADULT NEUROLOGY REFERRAL OP - OXcarbazepine 300 MG Oral Tablet (Trileptal); Take 1 Tablet by mouth in the morning and 1 Tablet before bedtime. Dispense: 60 Tablet; Refill: 3 2. Seronegative inflammatory arthritis Plan per rheumatology. 3. Surveillance for control, oral contraceptives As above. Return in about 6 weeks (around 06/25/2024). This note was electronically signed by Payal Myers MD documented in this encounter Nursing Notes * Karyna Pabon CMA - 05/14/2024 11:08 AM EDT Patient presents today for follow up to review MRI results. MRI of brain was completed on 05/07/24.She denies any new concerns at this time. documented in this encounter Plan of Treatment Upcoming Encounters Date Type Department Care Team (Late st Contact Info) Description 05/18/2024 9:20 AM EDT Telemedicine Neurology [address] [place] [phone] Lalo Ivan, DO [address] [facility] [place] [address] 05/28/2024 1:30 PM EST Office Visit [facility]ology [facility] [address] [facility] [place] [address] Michelle Goodwin CRNP [address] [place] [address] 06/25/2024 11:40 AM EST [facility] [place] [address] [place] [address] Payal Myers MD [address] [place] [place] [address] 08/31/2024 8:20 AM EST Office Visit Family Practice [facility] [address] [place] [address] Payal Myers MD [address] [place] [address] Scheduled Referrals Name Type Priority Associated Diagnoses Orde r Schedule ADULT NEUROLOGY REFERRAL OP Referral Within 10 days (routine) Left-sided headache Ordered: 05/14/2024 Health Maintenance Due Date Last Done Comments [...] as of this encounter Visit Diagnoses Diagnosis Left-sided headache- Primary Headache Seronegative inflammatory arthritis Surveillance for control, oral contraceptives Surveillance of previously prescribed contraceptive pill documented in this encounter Care Teams Brand Sales Manager Relationship Specialty Start Date End Date Payal Myers MD [address] [place] [address] PCP - General Family Medicine 01/21/24 documented as of this encounter
--- OUTSIDE RECORDS SUMMARY | 2024-05-20 11:43 | External Medical Summary | Summary of Care ---
Author Name Unknown Organization [facility] Address [address] [place] [address] Phone [phone] Care Team Providers Care Stitcher Hand Name Role Phone Payal Myers MD Primary Care Provider [phone] Reason for Referral * Evaluate & Treat - Unlimited Visits (Within 10 days (routine)) - Pending Review Specialty Diagnoses / Procedures Referred By Conttaryn t Referred To Contact Pharmacist / Pharmacy Diagnoses Seronegative inflammatory arthritis Michelle Lima CRNP [address] [facility] [place] [address] Referral ID Status Reason Start Date Expiration Date Visits Requested Visits Authorized [id number] Pending Review Specialty Services Required 04/13/2024 10/10/2024 [...] st Contact Info) Description 04/13/2024 Refill Rheumatology [address] [place] [id number] Michelle Lima CRNP [address] [place] [address] Seronegative inflammatory arthritis* Allergies Active Allergy Reactions [...] encounter Miscellaneous Notes * Telephone Encounter - Brittney Khan RPh - 04/17/2024 2:30 PM EDTNo prescriptions requested or ordered in this encounter * Addendum Note - Brittney Khan RPh - 04/17/2024 2:30 PM EDTAddended by: BRITTNEY KHAN on: 04/17/2024 02:30 PM Modules accepted: Orders * Telephone Encounter - Brittney Khan RPh - 04/17/2024 2:26 PM EDT Rheumatology: Refill Request(s) Per review of the refill parameters, Medication was refilled in other encounter under correct dept Brittney Khan RPh [facility] Clinical Pharmacist Rheumatology Department 04/17/2024,2:26 PM * Addendum Note - Lu Mandel CPhT - 04/17/2024 1:15 PM EDTAddended by: LU MANDEL on: 04/17/2024 01:15 PM Modules accepted: Orders * Telephone Encounter - Lu Mandel CPhT - 04/17/2024 1:15 PM EDT Rheumatology Pre-Certification Response Approved - Script pended - to be filled at [facility] (P: [phone]) Thank you, Lu Mandel CPhT-[facility] [employer] [facility] 04/17/2024,1:15 PM * Telephone Encounter - Екатерина Love CPhT - 04/15/2024 12:09 PM EDT Patient Phone Numbers Sent 2Checkout message to patient to schedule [facility] appointment for Medication Education. Appointment scheduled as noted below. 04/27/2024 Thank you, Екатерина Love CPhT [facility] 04/15/2024,12:09 PM * Telephone Encounter - Michelle Lima CRNP - 04/13/2024 4:12 PM EDT Please proceed with Hannah. ID cleared her in the past. Thank you * Telephone Encounter - Nirali Begum RPh - 04/13/2024 11:41 AM EDT Rheumatology Pre-Certification Request Kathrin: I see that the TB was indeterminate but CXR seems WNL. Please advise if we are ok to proceed. Medication/Disease State Information: Diagnosis: Rheumatoid arthritis of multiple sites without rheumatoid factor [M06.09] Patient Age: [age] year old Medication/Dose/Route/Interval: Amjevita 40mg/0.4mL every other week Site of Care: Self-Administered Insurance considerations: [facility] Commercial: Formulary reviewed and medication selection [...] severe, and/or uncontrolled infection Rheumatology Office Information: Transport Company Manager: MICHELLE LIMA Rheumatology Pharmacist: Nirali Begum Rheumatology Pharmacist Appointment Request Department & Provider: Rheumatology [address] [[id number]] - Pharmacist #1 Rheumatology [facility] [[id number]] Patient to be scheduled for visit type: Telephonic Medicine Visit [[id number]] Length of visit: 30 min Reason for visit: Med Edu: Narda MOSQUEDA Time Frame: within 1-2 weeks Request routed to [facility] Specialty Scheduling Pool ([id number]) Please route this encounter back to Rheum Pharmacist Refill Pool/Class [p [id number]] if unable to schedule patient after 3 attempts. * Telephone Encounter - Michelle Lima CRNP - 04/13/2024 11:16 AM EDT Rheumatology Education, Pre-Certification, and/or Pharmacist Co-Management Request Medication Education: yes Pre-Certification: [facility]: Pre-cert for Prednisone, DMARDs & IV/IM/SC Osteoporosis Meds ([facility] rheumatology pharmacist pool p [phone]) Pharmacist Co-Management ([facility] ONLY; West select "no"): [...] will have medication therapy managed by [facility] ([facility]) per established policies, procedures, and protocols. I also certify that this referral may serve as an initiation of service for the management of drug therapy in the above noted patient. [facility] providers will be responsible for scheduling patient visits, obtaining appropriate laboratory studies, and adjusting medication management therapy per patient's need, in addition to those roles spelled out in the clinic policy, procedures, and drug management protocols. I understand that the service provided by the [facility] is voluntary and have informed patient that they can refuse the service at their discretion. I am aware that the [facility] will provide me with a copy of the patient encounter via my [employer] In-Basket. I authorize the [facility] to carryout these activities on my behalf. I consider this program to be a necessary part of the patient's medical care. BRYCE Rhodes documented in this encounter Plan of Treatment Upcoming Encounters Date Type Department Care Team (Late st Contact Info) Description 04/27/2024 9:30 AM EDT Telemedicine Rheumatology, [place] [address] [place] [address] Agc5, Pharmacist Rheumatology [facility] [place] [address] 05/28/2024 1:30 PM EST Office Visit Rheumatology [place] [address] [address] [place] [address] Michelle Lima CRNP [facility] [email or web address] [place] [address] 08/31/2024 8:20 AM EST Office Visit Family Practice [facility] [address] [facility] [place] [address] Payal Myers MD [address] [facility] [place] [address] Scheduled Referrals Name Type Priority Associated Diagnoses [...] Primary documented in this encounter Care Teams Stitcher Hand Relationship Specialty Start Date End Date Payal Myers MD [address] [place] [address] PCP - General Family Medicine 01/21/24 documented as of this encounter
--- OUTSIDE RECORDS SUMMARY | 2024-05-20 11:43 | External Medical Summary | Summary of Care ---
Author Name Unknown Organization [facility] Address [address] [place] [address] Phone [phone] Care Team Providers Care Data Management Name Role Phone Payal Myers MD Primary Care Provider [phone] Reason for Referral * Precert (Within 10 days (routine)) - Pending Review Specialty Diagnoses / Procedures Referred By Contac t Referred To Contact Radiology Diagnoses Trigeminal neuralgia Procedures MRI BRAIN W WO CONTRAST Payal Myers MD [address] [facility] [place] [address] Referral ID Status Reason Start Date Expiration Date V isits Requested Visits Authorized [id number] Pending Review 04/24/2024 999 999 Reason for Visit * Reason Comments Headache Encounter Details Date Type Department Care Team (Late st Contact Info) Description 04/24/2024 4:20 PM EDT Office Visit Family Practice [facility] [place] [address] [facility] [place] [address] Payal Myers MD [address] [facility] [place] [address] Trigeminal neuralgia*; Seronegative inflammatory arthritis; Need for prophylactic vaccination and inoculation against influenza Allergies Active Allergy Reactions Criticality Noted Date Comments Sulfasalazine Rash Medium 10/23/2023 documented as of this encounter (statuses as of 05/11/2024) Medications Medication Sig Dispensed Refills Start Date [...] 14 days. 0.8 mL 2 04/17/2024 Active predniSONE 5 MG Oral Tablet (Deltasone) Take 4 Tablets by mouth daily for 7 days, THEN 3 Tablets daily for 7 days, THEN 2 Tablets daily for 7 days, THEN 1 Tablet daily for 7 days. 70 Tablet 02/26/2024 04/24/2024 Discontinued (Medication List Clean Up) Gabapentin 300 MG Oral Capsule (Neurontin)Indicat ions:Trigeminal neuralgia Take 1 Capsule by mouth in the morning. 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 Iron deficiency 02/28/2024 LUDA (generalized anxiety disorder) 10/09/2023 Seronegative inflammatory arthritis 10/09/2023 documented as of this encounter (statuses as of 05/11/2024) Immunizations Name Administration Dates Next Due COVID-19 [...] Sign Reading Time Taken Comments Blood Pressure 108/66 04/24/2024 4:10 PM EDT Pulse 102 04/24/2024 4:10 PM EDT Temperature 36.9 C (98.5 F) 04/24/2024 4:10 PM ED T Respiratory Rate 16 04/24/2024 4:10 PM EDT Oxygen Saturation 97% 04/24/2024 4:10 PM EDT Inhaled Oxygen Concentration - - Weight 54.3 kg (119 lb 12.8 oz) 04/24/2024 4:10 PM EDT Height - - Body Mass Index 20.09 07/11/2023 8:40 AM EST documented in this encounter Progress Notes * Payal Myers MD - 04/24/2024 4:17 PM EDT Subjective Chief Complaint Patient presents with Headache HPI: Bhavin Wilson is a 29 year old female. Patient is unaccompanied. The following issues were addressed today: Patient presents today with c/o intermittent, severe pain in the left side of her face and head. Describes as an electrical shock-like sensation. Also feels inside the left ear. Notes that brushing her teeth, eating, or even the wind blowing on her face can trigger the symptoms. She has avoided taking NSAIDs given a recent allergic reaction to either Cimzia or Aleve. She also notes tender bumps at the back of her skull. Feel similar to enlarged lymph nodes she has experienced recently. She continues to follow with rheumatology for seronegative inflammatory arthritis. Review of Systems: See HPI Objective BP 108/66 | Pulse 102 | Temp 36.9 C (98.5 F) (Tympanic) | Resp 16 | Wt 54.3 kg (119 lb 12.8 oz)| SpO2 97% | BMI 20.09 kg/m | BSA 1.58 m Wt Readings from Last 3 Encounters: 04/24/24 54.3 kg (119 lb 12.8 oz) 02/28/24 55.1 kg (121 lb 8 oz) 02/26/24 57.2 kg (126 lb) BP Readings from Last 3 Encounters: 04/24/24 108/66 02/28/24 100/60 02/19/24 103/66 General: Well-appearing, no acute distress Head: Normocephalic and atraumatic Eyes: No conjunctival injection, no scleral icterus, extraocular movements are intact Ears: External ear unremarkable, canals normal and tympanic membranes clear bilaterally Throat/Mouth: Oral mucosa pink and moist, tongue normal in appearance without lesions and with symmetrical movement, pharynx normal in appearance Neurological: Alert and oriented, no focal deficits noted Psychiatric: Appropriate mood and affect Assessment & Plan 1. Trigeminal neuralgia Suspect TGN based on symptomatology. Will schedule for brain MRI. Trial of gabapentin 300mg once daily. Titrate dose as needed. Offered carbamazepine but worried about potential rash. - MRI BRAIN W WO CONTRAST; Future 2. Seronegative inflammatory arthritis Continue follow-up with rheumatology. 3. Need for prophylactic vaccination and inoculation against influenza - INFLUENZA VAC, TRIVALENT, (IIV3), PF, 0.5 ML (FLUZONE) Return for follow-up after MRI. This note was electronically signed by Payal Myers MD documented in this encounter Nursing Notes * Ekaterina Oates LPN - 04/24/2024 4:08 PM EDT Bhavin Wilson presents with complaints of frequent left sided headaches. documented in this encounter Plan of Treatment Upcoming Encounters Date Type Department Care Team (Late st Contact Info) Description 05/14/2024 11:20 AM EDT [address] [place] [address] Payal Myers MD [address] [place] [address] [place] [address] 05/28/2024 1:30 PM EST Office Visit Rheumatology [place] [address] [facility] [place] [address] Michelle Goodwin CRNP [address] [place] [address] 08/31/2024 8:20 AM EST Office Visit [place] [address] [address] [place] [address] Payal Myers MD [address] [place] [address] [place], [place] [address] Health Maintenance Due Date Last Done Comments [...] Not on filedocumented as of this encounter Results * MRI BRAIN W WO CONTRAST (05/07/2024 4:37 PM EDT) Anatomical Region Laterality Modality Neuro, Head Magnetic Resonan ce 05/08/2024 3:36 PM EDT Impressions 05/08/2024 3:59 PM EDT IMPRESSION No evidence of microvascular compression or other abnormality involving the internal auditory canal structures. No evidence of acute infarction, recent intracranial hemorrhage, or mass. I have personally reviewed this examination and agree with the resident/fellow physician's interpretation. Narrative 05/08/2024 3:59 PM EDT EXAM MRI BRAIN WITH AND WITHOUT CONTRAST - 05/07/2024 HISTORY Left-sided facial pain, concern for potential trigeminal neuralgia. TECHNIQUE MRI of the brain/internal auditory canals was performed with and without intravenous Gadavist contrast. COMPARISON None. FINDINGS No mass or abnormal enhancement within the internal auditory canals or cerebellopontine angle cisterns. Unremarkable appearance of the vestibulocochlear complexes. Normal course and caliber of the 5th, 7th, and 8th cranial nerves. The left superior cerebellar artery contacts the upper surface of the cisternal left trigeminal nerve segment without displacement or associated volume loss, favored to be an incidental finding. No evidence of acute infarction, recent hemorrhage, or mass. Normal parenchymal volume. No hydrocephalus. No extra-axial fluid collections. The vascular flow voids at the base of the brain are preserved. Chronic appearing polypoid mucosal thickening partially opacifying the right sphenoid sinus. The mastoid air cells are clear. Orbits are unremarkable. The calvarium is intact. Procedure Note Kel Encarnacion MD - 05/08/2024 EXAM MRI BRAIN WITH AND WITHOUT CONTRAST - 05/07/2024 HISTORY Left-sided facial pain, concern for potential trigeminal neuralgia. TECHNIQUE MRI of the brain/internal auditory canals was performed with and withoutintravenous Gadavist contrast. COMPARISON None. FINDINGS No mass or abnormal enhancement within the internal auditory canals orcerebellopontine angle cisterns. Unremarkable appearance of thevestibulocochlear complexes. Normal course and caliber of the 5th, 7th,and 8th cranial nerves. The left superior cerebellar artery contacts theupper surface of the cisternal left trigeminal nerve segment withoutdisplacement or associated volume loss, favored to be an incidentalfinding. No evidence of acute infarction, recent hemorrhage, or mass. Normalparenchymal volume. No hydrocephalus. No extra-axial fluid collections.The vascular flow voids at the base of the brain are preserved. Chronic appearing polypoid mucosal thickening partially opacifying theright sphenoid sinus. The mastoid air cells are clear. Orbits areunremarkable. The calvarium is intact. IMPRESSION IMPRESSION No evidence of microvascular compression or other abnormality involvingthe internal auditory canal structures. No evidence of acute infarction, recent intracranial hemorrhage, ormass. I have personally reviewed this examination and agree with the resident/fellow physician's interpretation. Payal Myers MD RAD MRI-MRA documented in this encounter Visit Diagnoses Diagnosis Trigeminal neuralgia- Primary Seronegative inflammatory arthritis Need for prophylactic vaccination and inoculation against influenza Trigeminal neuralgia documented in this encounter Care Teams Data Management Relationship Specialty Start Date End Date Payal Myers MD [address] [place] [address] [place] [address] PCP - General Family Medicine 01/21/24 documented as of this encounter"
--- OUTSIDE RECORDS SUMMARY | 2024-05-20 11:43 | External Medical Summary | Summary of Care ---
Author Name Unknown Organization [facility] Address [address] [place] [address] Phone [phone] Care Team Providers Care Medical Reimbursement Specialist Name Role Phone Payal Myers MD Primary Care Provider [phone] Reason for Referral * Precert (Within 10 days (routine)) - Pending Review Specialty Diagnoses / Procedures Referred By Contac t Referred To Contact Radiology Diagnoses Trigeminal neuralgia Procedures MRI BRAIN W WO CONTRAST Payal Myers MD [address] [place] [address] Referral ID Status Reason Start Date Expiration Date V isits Requested Visits Authorized [id number] Pending Review 04/24/2024 999 999 Reason for Visit * Precert (Within 10 days (routine)) - Pending Review Specialty Diagnoses / Procedures Referred By Contac t Referred To Contact Radiology Diagnoses Trigeminal neuralgia Procedures MRI BRAIN W WO CONTRAST Payal Myers MD [address] [place] [address] Referral ID Status Reason Start Date Expiration Date V isits Requested Visits Authorized [id number] Pending Review 04/24/2024 999 999 Encounter Details Date Type Department Care Team (Latest Contact Info) Description 05/07/2024 3:21 PM EDT - 05/07/2024 11:59 PM EDT Hospital Encounter Radiology, [address] [phone] Arrived Discharge Disposition: Home - Self Care Allergies Active Allergy Reactions Criticality Noted Date Comments Sulfasalazine Rash Medium 10/23/2023 documented as of this encounter (statuses as of 05/08/2024) Medications Medication Sig Dispensed Refills Start Date [...] as of this encounter (statuses as of 05/08/2024) Active Problems Problem Noted Date Diagnosed Date 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 Iron deficiency 02/28/2024 LUDA (generalized anxiety disorder) 10/09/2023 Seronegative inflammatory arthritis 10/09/2023 documented as of this encounter (statuses as of 05/08/2024) Immunizations Name Administration Dates Next Due COVID-19 [...] on file documented as of this encounter Plan of Treatment Upcoming Encounters Date Type Department Care Team (Late st Contact Info) Description 05/14/2024 11:20 AM EDT Office Visit Family Practice [facility] [place] [address] [place] [address] Payal Myers MD [address] [place] [address] 05/28/2024 1:30 PM EST Office Visit Rheumatology [facility] [address] [facility] [place] [address] Michelle Goodwin CRNP [address] [place], [place] [address] 08/31/2024 8:20 AM EST Office Visit [facility] [place] [address] [facility] [place] [address] Payal Myers MD [address] [facility] [place] [address] Pending Results Name Type Priority Associated Diagnoses Date /Time MRI BRAIN W WO CONTRAST Medical Imaging Routine Trigeminal neuralgia 05/07/2024 4:37 PM EDT Scheduled Orders Name Type Priority Associated Diagnoses Orde r Schedule MRI BRAIN W WO CONTRAST Medical Imaging Routine Trigeminal neuralgia 1 Occurrences starting 05/07/2024 until 05/07/2024 Health Maintenance Due Date Last Done Comments [...] as of this encounter Visit Diagnoses Diagnosis Trigeminal neuralgia documented in this encounter Administered Medications Inactive Administered Medications - up to 3 most recent administrations Medication Order MAR Action Action Date Dose Rate Site gadobutrol (Gadavist) inj 2 mL 2 mL, Intravenous, ONCE, On Yenny 05/07/24 at 1637, For 1 dose, Radiology Medication Routing (Non-IR) Given 05/07/2024 4:35 PM EDT 5.4 mL Antecubital Right documented in this encounter Care Teams Medical Reimbursement Specialist Relationship Specialty Start Date End Date Payal Myers MD [address] [place], [place] [phone] PCP - General Family Medicine 01/21/24 documented as of this encounter
--- OUTSIDE RECORDS SUMMARY | 2024-05-20 11:43 | External Medical Summary | Summary of Care ---
Author Name Unknown Organization [facility] Address [address] [place] [address] Phone [phone] Care Team Providers Care Director Cloud Transformation Name Role Phone Payal Myers MD Primary Care Provider [phone] Reason for Visit * Reason Comments NEW PATIENT Headache * Evaluate & Treat - Unlimited Visits (Within 10 days (routine)) - Authorized Specialty Diagnoses / Procedures Referred By Contac t Referred To Contact Neurology Diagnoses Left-sided headache Payal Myers MD [address] [place] [address] Referral ID Status Reason Start Date Expiration Date Visits Requested Visits Authorized [id number] Authorized Specialty Services Required [phone] Encounter Details Date Type Department Care Team (Late st Contact Info) Description 05/18/2024 9:20 AM EDT Telemedicine Neurology [address] [place] [phone] Lalo Ivan, DO [address] [place] [address] Occipital neuralgia of left side*; Migraine without aura and without status migrainosus, not intractable Allergies Active Allergy Reactions Criticality Noted Date Comments Sulfasalazine Rash Medium 10/23/2023 documented as of this encounter (statuses as of 05/18/2024) Medications Medication Sig Dispensed Refills Start Date [...] 04/17/2024 Active OXcarbazepine 300 MG Oral Tablet (Trileptal)Indicatio ns:Left-sided headache Take 1 Tablet by mouth in the morning and 1 Tablet before bedtime. 60 Tablet 3 05/14/2024 Active Topiramate 25 MG Oral Tablet (topAMAX) Take 1 Tablet by mouth every night at bedtime for 7 days, THEN 2 Tablets every night at bedtime for 7 days, THEN 3 Tablets every night at bedtime for 7 days, THEN 4 Tablets every night at bedtime. 90 Tablet 3 05/18/2024 06/08/2025 Active Naratriptan HCl 2.5 MG Oral Tablet (Amerge) Take 1 Tablet by mouth as needed for Migraine (take 1 tab by mouth at start of headache, may repeat once after 4 hours; may use up to 2 days a week). 10 Tablet 2 05/18/2024 Active Baclofen 5 MG Oral Tablet (Lioresal) Take 1 Tablet by mouth at bedtime as needed for Muscle spasms (for neck and jaw pain). 20 Tablet 3 05/18/2024 Active documented as of this encounter (statuses as of 05/18/2024) Active Problems Problem Noted Date Diagnosed Date 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 Iron deficiency 02/28/2024 LUDA (generalized anxiety disorder) 10/09/2023 Seronegative inflammatory arthritis 10/09/2023 documented as of this encounter (statuses as of 05/18/2024) Immunizations Name Administration Dates Next Due COVID-19 [...] as of this encounter Progress Notes * Lalo Ivan, - 05/18/2024 9:23 AM EDT Patient location: HOME. I was not in a hospital or clinic location. After connecting through televideo, patient was verified with two unique identifiers. 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 Methods to assure confidentiality were taken. Patient acknowledged consent and understanding of privacy and security of the Telemedicine visit. The patient agreed to participate. [facility] Consultation 05/18/2024 PCP: Payal Myers MD [address] [place] [id number] Name: Bhavin Wilson : 1995 Chief Complaint: Headache evaluation History of Present Illness: I saw Bhavin on 05/18/2024 via telemedicine with complaint of headache. She was referred by her PCP. She has not been seen by a prior neurologist. She is a 29 year old year old female who has a history of headaches since age 10- 11 (migraine hx). The headaches became problematic 6 months ago . This is when the pain increased in severity and frequency. Also , the location of pain has been different. Around 6 months ago, patient says she was also diagnosed with TMJ disorder. Currently, she has headaches daily (30/30 days per month) with average severity of 7-8/10 . This has been the trend for the past 2 months. Prior to that, the patient had headaches 15-16 days per month with average intensity of 3/10 -started 6 months ago. Had migraine headaches during youth, but decreased in frequency after several years. The worsening has been progressive. No thunderclap quality/sudden onset to the headache. No other events, lifestyle triggers, or illnesses that the patient can attribute the worsening to. The pain is currently described as a throbbing/pounding sensation. The pain is constant and starts in the left posterior head region. It radiates up to the left side of the head . No pain on the right side. There is neck msk tightness. Head movements do not trigger headaches. The patient says that initially ,the headaches started as a dull continuous headache and would go away after 2 weeks and then come back, however, in the last 2 months, her headaches have been continuous. Also, on top of the underlying dull constant pain, there was a period of time the patient would feel shock-like sensation on the left jewish lasting 1-2 minutes . The shock-like sensation went away about 2-3 weeks ago. The Sock-like pain would last 1-2 minutes and occur several times per day. That pain was not provoked by innocuous stimuli. Of note, patient also has jaw pain on the left. She saw her dentist and was told it was TMJ disorder. She was told to either consider mouth guard or chiropractor. Has not done these. Also, patient says there are 2 bumps on the left side posterior head region. She has already mentioned to her primary provider and was told not lymph node. Imaging negative. That area is tender to palpation. She does have paroxysmal, shooting or stabbing pain in the posterior part of the scalp on the left side, in the distribution(s) of the greater, lesser and/or third occipital nerves. There is dysaesthesia and/or allodynia apparent during innocuous stimulation of the scalp and/or hair. Difficult sleeping because placing back of head on pillow aggravates the posterior head pain. The duration of pain is continuous - from time she wakes up to the time she goes to sleep. The patient has photophobia and phonophobia with her headaches. GI symptoms include nausea , but no vomiting with headaches. Migraine Auras: Timing, frequency and sequence Visual aura - none Motor aura - none Sensory aura - none Language - none Brainstem aura - none Retinal aura - none Cranial autonomic symptoms --- NO lacrimation, conjunctival injection, ptosis, periorbital edema, itching/gritty eye, nasal congestion, rhinorrhea, ear fullness, facial flushing, facial pallor and sialorrhea. Atypical symptoms -- NO symptoms of TVO, whooshing sounds, jaw claudication, temporal tenderness, or visibly enlarged temporal arteries. She saw PCP . Sxs thought to be trigeminal neuralgia. Gabapentin tried for several weeks at 300mg TID dose, but not effective. No side effects. Switched to Trileptal 300mg BID. Took for a few days, but developed ?hot flashes so she stopped. Not on any preventive meds at this time. MRI Brain w/ and w/o did not show vascular or mass compressing on TN. Triggers and lifestyle factors: Stress may be a trigger. Menstrual cycle is regular. Currently on OCPs Menstrually related migraine - none Sleeps 3-4 hours, on average. Poor sleep because of the headaches. No snoring. No daytime fatigue. No history of HERO. Too much sleep is not a trigger. Too little sleep is not a trigger. Placing the posterior head down on pillow can trigger sharp stabs of pain that start in the posterior head region on the left and then radiate to the left-side of head/jewish. Food triggers - none Skipping meals is not a trigger. Dehydration is not a trigger. Weather changes is not a trigger. Heat exposure is not a trigger. Alcohol - rarely Caffeine - 1-2 cups per day Coughing, sneezing, and Valsalva maneuvers are not triggers. Postural changes are not triggers. Head or neck injury - PMHx: No past medical history on file. TMJ disorder Inflammatory arthritis / chronic pain Iron deficiency anemia Migraine headaches during youth There is NO history of HTN, HLD, DMII, stroke, TIA, PA, arrhythmia, kidney stones, or asthma. Psychiatric History: Anxiety and Depression Surgical Hx: Past Surgical History: Procedure Laterality Date IR BIOPSY 02/19/2024 Medication List: Current Outpatient Medications Medication Sig Dispense Refill 08/10 1-20 MG-MCG per tablet 1 Tablet in the morning. FLUoxetine HCl 20 MG Oral Capsule (PROzac) Take 1 Capsule by mouth in the morning. 90 Capsule 3 Ferrous Sulfate 325 (65 Fe) MG Oral Tablet Delayed Release Take 1 Tablet by mouth. Every other day. predniSONE 5 MG Oral Tablet (Deltasone) Take 4 Tablets by mouth daily for 14 days, THEN 3 Tablets daily for 14 days, THEN 2 Tablets daily for 14 days, THEN 1 Tablet daily for 14 days. 140 Tablet 0 Amjevita 40 MG/0.4ML Subcutaneous Solution Auto-injector (Adalimumab-atto) Inject 40 mg (1 pen) under the skin every 14 days. 0.8 mL 2 OXcarbazepine 300 MG Oral Tablet (Trileptal) Take 1 Tablet by mouth in the morning and 1 Tablet before bedtime. 60 Tablet 3 No current facility-administered medications for this visit. Name, dose, duration, effectiveness and side effects Current acute treatments: Tylenol 500mg prn - has been taking daily for 1 month; effective at reducing pain severity, but no pain resolution *on prednisone taper - for arthritis (did not help headaches) *avoiding NSAIDS bc she was told she had a reaction Current preventative treatments: None for headaches -- Fluoxetine 20mg daily - for A/D Past acute treatments: None Past preventative treatments: Gabapentin 300mg TID (2 weeks) - not effective ; no side effects Oxcarbazepine 300mg BID - took a few doses and had side effect of chills/hot flashes stopped Devices/procedures: No Botox tried Family Hx: Family history of migraine -- sister father w/ cluster Family History Problem Relation Name Age of Onset Cancer Mother bile duct Anemia Mother Heart Disorder Father mi Lung cancer Father Osteoarthritis Father Psoriasis Father Other (raynauds) Sister Psoriasis Sister Cancer Grandmother (Maternal) pancreatic Heart Disorder Grandfather (Paternal) mi @50 Allergies: Review of patient's allergies indicates: Allergen Reactions Sulfasalazine Rash Social Hx: Social History Socioeconomic History Marital status: Single Tobacco Use Smoking status: Never Smokeless tobacco: Never Vaping Use Vaping status: Never Used Substance and Sexual Activity Alcohol use: Yes Comment: occasionaly Drug use: Never Social Determinants of Health Financial Resource Strain: Low Risk (02/28/2024) Financial Resource Strain Do you have any trouble paying for your medications, or do you think you might in the future? (Adult - for ages 18 years and over): No Food Insecurity: No Food Insecurity (02/28/2024) Food Insecurity Do you need food for this week? (Adult - for ages 18 years and over): No Transportation Needs: No Transportation Needs (02/28/2024) Transportation Needs Has lack of transportation kept you from medical appointments, meetings, work, or from getting things needed for daily living? Check all that apply. (Adult - for ages 18 years and over): No Social Connections: Socially Integrated (02/28/2024) Social Connections How often do you feel lonely or isolated from those around you? (Adult - for ages 18 years and over): Never Housing Stability: Low Risk (02/28/2024) Housing Stability Do you currently live in a fpc or have no steady place to sleep at night? (Adult - for ages 18 years and over): No Are you homeless or worried that you might be in the future? 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 Mental Status: [ ] Confusion [ ] Poor memory [ ] Speech difficulty [ ] Word finding difficulty [ ] Difficulty read/writing [ ] Forgetting appointments [ ] Lost while driving [ ] Change in sleep habits [ ] Lost while driving [ ] Excessive daytime drowsiness [ ] Loss of interest in activities [ ] Loss of consciousness Cranial nerves: [ ] Change in smell [ ] Double vision [ ] Blurred vision [ ] Loss of vision [ ] Bright lines or flashes in vision [ ] Altered facial sensation [ ] Difficulty chewing [ ] Weakness of face [ ] Ringing in ears [ ] Diminished hearing [ ] Spinning sensation [ ] Difficulty swallowing Motor, Sen[place], Coordination: [ ] Difficulty standing [ ] Difficulty reaching [ ] Difficulty using hands [ ] Difficulty using feet [ ] Loss of muscle bulk [ ] Muscle twitching [ ] Muscle pain/cramps [ ] Incoordination [ ] Balance difficulty [ ] Involuntary movements [ ] Tremor [ ] Difficulty walking [ ] Numbness or tingling [ ] Urinary difficulty [ ] Bowel control difficulty [ ] Light headedness [ ] Fainting [ ] Change in sweating Systemic: [ ] Weight gain [ ] Weight loss [ ] Cold intolerance [ ] Heat intolerance [ ] Fever [ ] Chills [ ] Hair loss [ ] Shortness of breath [ ] Palpitations [ ] Chest pain [ ] Heart burn or acid reflux [ ] Joint pain [ ] Abdominal pain [ ] Night sweats [ ] Swollen glands [ ] Skin rash [ ] Nausea [ ] Vomiting [ ] Constipation [ ] Diarrhea [ ] Other: VITALS: 05/14/2024 04/24/2024 02/28/2024 BP: 102/58 108/66 100/60 Pulse: 86 102 108 Resp: -- 16 20 Temp: 37.2 C (99 F) 36.9 C (98.5 F) 36.7 C (98.1 F) Temp src: -- Tympanic Tympanic SpO2: 99 % 97 % -- Weight: 55.7 kg (122 lb 12 oz) 54.3 kg (119 lb 12.8 oz) 55.1 kg (121 lb 8 oz) Height: 1.645 m (5' 4.76" BMI 20 PHYSICAL EXAM: Mental Status: Alert, awake, and oriented with intact recent and remote memory. Full attention span, concentration, and fund of knowledge. Language: Speech is fluent and comprehension intact. Cranial Nerves: There is no ptosis. Extraocular movements are intact without nystagmus. Facial strength and sensation is symmetric, normal tongue position, speech is clear with no dysarthria, shoulder shrugs are full. Hearing is normal and symmetric to finger rub. Sensory: Intact to light touch. Motor: No tremors, no pronator drift. Able to get up out of a chair. Fine finger movements intact. Able to walk on the heels/toes. Coordination: No axial instability. Accurate finger to nose bilaterally. HEAVEN intact. Gait: Normal, narrow-based gait; Able to tandem well. * Physical exam was limited in the context of a video visit. Unable to perform manual motor exam, detailed sensory exam, full cranial nerve testing, reflexes, and tone exam. Labs: CBC Results: Results for orders placed or performed in visit on 02/28/24 CBC Result Value Ref Range WBC 8.69 4.00 - 10.80 K/uL RBC 4.55 3.85 - 5.15 M/uL HGB 11.8 (L) 12.0 - 15.3 g/dL HCT 37.3 36.0 - 45.2 % MCV 82.0 81.5 - 97.5 fL MCH 25.9 27.0 - 34.0 pg MCHC 31.6 32.0 - 36.0 g/dL RDW 14.0 11.5 - 15.5 % PLT 478 (H) 140 - 400 K/uL MPV 8.1 6.6 - 11.1 fL Basic Panel Results: TSH Results: No results found for: "TSH" Imaging: --- Neurodiagnostics --- MRI brain w/ and w/o contrast 05/07/2024: IMPRESSION No evidence of microvascular compression or other abnormality involving the internal auditory canalstructures. No evidence of acute infarction, recent intracranial hemorrhage, or mass. --- Eye Examination --- Last non-dilated exam was in the last 1 years ; wears glasses HEADACHE DISABILITY: MIDAS (Migraine Disability Assessment) score: DID NOT COMPLETE 1. On how many days in the last 3 months did you miss work or school because of your headaches? 2. How many days in the last 3 months was your productivity at work or school reduced by half or more because of your headaches? (Do not include days you counted in question 1 where you missed work or school) 3. On how many days in the last 3 months did you not do household work (such as housework, home repairs and maintenance, shopping, caring for children and relatives) because of your headaches? 4. How many days in the last 3 months was your productivity in household work reduced by half of more because of your headaches? (Do not include days you counted in question 3 where you did not do household work) 5. On how many days in the last 3 months did you miss family, social or leisure activities because of your headaches? TOTAL: MIDAS Score Level of impairment 0 - 5 MIDAS Grade I Little or no disability 6 - 10 MIDAS Grade II Mild disability 11 - 20 MIDAS Grade III Moderate disability >20 MIDAS Grade IV Severe disability No questionnaires available. Assessment and Plan: The patient presents with throbbing/pounding, constant head pain located on the left side of her head - developed about 6 months ago and progressively increased in frequency and intensity. No clear triggers/events preceding. Of note, was diagnosed with TMJ disorder on the left around same time. Certain characteristics of her current headaches fit migraine without aura phenotype (throbbing, > 4hours duration, + photo/phonophobia, +N). The patient has ap alissa hx of migraine diagnosed during her youth. There is a family history of migraine. Migraine comorbidities include anxiety, depression, iron deficiency, TMJ and inflammatory arthritis. Neuro exam is non-focal and previous neuro- imaging was negative for secondary migraine mimics. The patient would benefit from initiation of headache preventive and acute treatments as outlined below. Additionally, the patient does have paroxysmal, shooting or stabbing pain in the posterior part of the scalp on the left, in the distribution(s) of the greater, lesser and/or third occipital nerves. There is dysaesthesia and/or allodynia apparent during innocuous stimulation of the scalp and/or hair. Thus, can consider left-sided occipital neuralgia. Offered MEL block for diagnostic and therapeutic purposes, but patient defers for now. Patient also with cervicalgia. Will provide her with muscle relaxer. May help neck and jaw pain. Query if her TMJ is somewhat contributing to her current pain. Discussed with patient that I can referher to OMFS for further evaluation, but patient defers for now. Also encouraged patient to pursue mouth guard and PT through her dentist. Patient agrees and understands. The quality of her headaches at this time do not meet criteria for trigeminal neuralgia. Has tried both gabapentin and Trileptal with no improvement or intolerable side effects. MRI Brain w/ and w/o contrast was unremarkable - no vascular or mass compression of the TN. Additional diagnostic testing and studies: not indicated at this time, but may consider if headachered flags/changes occur Preventive treatment: Start topiramate 25mg nightly and increase by 25mg each week to a goal of 100mg nightly as tolerated; side effects discussed with patient Consider TCA in the future if above not effective or not tolerated Acute treatment: Start naratriptan 2.5 mg prn + APAP 500 mg prn Limit all acute agents to 2-3 per week to avoid MOH Start Baclofen 5mg prn for msk pain ; can increase dose in future if tolerated Avoid steroids for status as patient is currently on steroids for inflammatory arthritis Avoid NSIADS for now given reported reaction to them in the past Lifestyle Modification to include avoid skipping meals, avoid excessive caffeine, encourage aerobicexercise, smoking cessation, stress management, restorative sleep, adequate hydration, trigger identification and avoidance and headache diary (migraine mack chay) Offered OMFS referral for TMJ, but patient would like to hold off for now ; patient to continue with local dentist (encouraged mouth guard and PT) Given the location of her head pain ,patient may benefit from MEL block, bur she defers for now Follow-up: 3 months (sooner if needed) Lalo Ivan DO Headache Specialist Department of Neurology [facility] I spent a total of Greater than 55 mins (exact time 61 mins) on the date of service in preparation,delivery, and documentation of the care provided to Bhavin Wilson excluding any time spent in the performance of separately billed services. documented in this encounter Plan of Treatment Upcoming Encounters Date Type Department Care Team (Late st Contact Info) Description 05/28/2024 1:30 PM EST Office Visit Rheumatology [facility] [address] [facility] [place] [address] Michelle Goodwin CRNP [address] [facility] [place], [place] [address] 06/25/2024 11:40 AM EST Office Visit [facility] [address] [facility] [place] [id number] Payal Myers MD [address] [facility] [place] [id number] 08/31/2024 8:20 AM EST Office Visit [facility] [address] [facility] [place] [address] Payal Myers MD [address] [facility] [place], [place] [address] Health Maintenance Due Date Last Done Comments [...] as of this encounter Visit Diagnoses Diagnosis Occipital neuralgia of left side- Primary Migraine without aura and without status migrainosus, not intractable Migraine without aura, without mention of intractable migraine without mention of status migrainosus documented in this encounter Care Teams Director Cloud Transformation Relationship Specialty Start Date End Date Payal Myers MD [address] [facility] [place] [address] PCP - General Family Medicine 01/21/24 documented as of this encounter
[2024-05-20] MEDS: SODIUM CHLORIDE 0.9% 1,000 ML IV ONE ×2 (11:44→19:36)
--- OUTSIDE RECORDS SUMMARY | 2024-05-20 11:44 | External Medical Summary | Summary of Care ---
Author Name Unknown Organization [facility] Address [address] [place] [address] Phone [phone] Care Team Providers Care Orientor Name Role Phone Payal Myers MD Primary Care Provider [phone] Reason for Referral * Evaluate & Treat - Unlimited Visits (Within 10 days (routine)) - Pending Review Specialty Diagnoses / Procedures Referred By Conttaryn t Referred To Contact Pharmacist / Pharmacy Diagnoses Seronegative inflammatory arthritis Michelle Lima CRNP [address] [facility] [place] [address] Referral ID Status Reason Start Date Expiration Date Visits Requested Visits Authorized [id number] Pending Review Specialty Services Required 04/13/2024 10/10/2024 [...] st Contact Info) Description 04/13/2024 Telephone Rheumatology [address] [place] [address] Michelle Lima CRNP [address] [facility] [place] [address] Precert In Process (24 DI GHP AMJEVITA... [...] 12:09 PM EDT Patient Phone Numbers Sent BioRestorative Therapiest message to patient to schedule [facility] appointment for Medication Education. Appointment scheduled as noted below. 04/27/2024 Thank you, Екатерина Love CPhT Teacher Lip Reading II [facility]) 04/15/2024,12:09 PM * Telephone Encounter - Michelle Lima CRNP - 04/13/2024 4:12 PM EDT Please proceed with Hannah. ID cleared her in the past. Thank you * Telephone Encounter - Nirali Begum [facility] - 04/13/2024 11:41 AM EDT Rheumatology Pre-Certification Request Kathrin: I see that the TB was indeterminate but CXR seems WNL. Please advise if we are ok to proceed. Medication/Disease State Information: Diagnosis: Rheumatoid arthritis of multiple sites without rheumatoid factor [M06.09] Patient Age: [age] year old Medication/Dose/Route/Interval: Amjevita 40mg/0.4mL every other week Site of Care: Self-Administered Insurance considerations: [facility] Commercial: Formulary reviewed and medication [...] severe, and/or uncontrolled infection Rheumatology Office Information: Deck Officer: MICHELLE LIMA Rheumatology Pharmacist: Nirali Begum Rheumatology Pharmacist Appointment Request Department & Provider: Rheumatology [address] [[id number]] - Pharmacist #1 Rheumatology [facility] [[id number]] Patient to be scheduled for visit type: Telephonic Medicine Visit [[id number]] Length of visit: 30 min Reason for visit: Med Edu: Narda MOSQUEDA Time Frame: within 1-2 weeks Request routed to [facility] Specialty Scheduling Pool ([id number]) Please route this encounter back to Rheum Pharmacist Refill Pool/Class [p [phone]] if unable to schedule patient after 3 attempts. * Telephone Encounter - Michelle Lima CRNP - 04/13/2024 11:16 AM EDT Rheumatology Education, Pre-Certification, and/or Pharmacist Co-Management Request Medication Education: yes Pre-Certification: [facility]: Pre-cert for Prednisone, DMARDs & IV/IM/SC Osteoporosis Meds ([facility] rheumatology pharmacist pool p [phone]) Pharmacist Co-Management ([facility] ONLY; Remigio select "no"): [...] will have medication [facility]) per established policies, procedures, and protocols. I also certify that this referral may serve as an initiation of service for the management of drug therapy in the above noted patient. [facility] providers will be responsible for scheduling patient visits, obtaining appropriate laboratory studies, and adjusting medication management therapy per patient's need, in addition to those roles spelled out in the clinic policy, procedures, and drug management protocols. I understand that the service provided by the [facility] is voluntary and have informed patient that they can refuse the service at their discretion. I am aware that the [facility] will provide me with a copy of the patient encounter via my [email or web address] In-Basket. I authorize the [facility] to carryout these activities on my behalf. I consider this program to be a necessary part of the patient's medical care. BRYCE Rhodes documented in this encounter Plan of Treatment Upcoming Encounters Date Type Department Care Team (Late st Contact Info) Description 04/27/2024 9:30 AM EDT Telemedicine Rheumatology, [place] [address] [place] [address] Agc5, Pharmacist Rheumatology [address] [place] [address] 05/28/2024 1:30 PM EST Office Visit Rheumatology [facility] [address] [facility] [place] [address] Michelle Lima CRNP [address] [facility] [place] [address] 08/31/2024 8:20 AM EST Office Visit Family Practice [facility] [address] [facility] [place] [address] Payal Myers MD [address] [facility] [place] [address] Scheduled Referrals Name Type Priority Associated Diagnoses [...] Primary documented in this encounter Care Teams Orientor Relationship Specialty Start Date End Date Payal Myers MD [address] [place] [address] PCP - General Family Medicine 01/21/24 documented as of this encounter
--- OUTSIDE RECORDS SUMMARY | 2024-05-20 11:44 | External Medical Summary | Summary of Care ---
Author Name Unknown Organization [facility] Address [address] [place] [address] Phone [phone] Care Team Providers Care Operations Representative Name Role Phone Payal Myers MD Primary Care Provider [phone] Reason for Visit * Reason Onset Date Comments Follow Up 04/09/2024 Encounter Details Date Type Department Care Team (Late st Contact Info) Description 04/09/2024 Telephone Rheumatology [facility] [address] [place] [address] Michelle Goodwin CRNP [address] [place] [address] Follow Up Allergies Active Allergy Reactions Criticality Noted Date Comments Sulfasalazine Rash Medium 10/23/2023 documented as of this encounter (statuses as of 04/13/2024) Medications Medication Sig Dispensed Refills Start Date [...] as of this encounter (statuses as of 04/13/2024) Active Problems Problem Noted Date Diagnosed Date 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 Started Prednisone today already having a bit of relief. Reviewed benefits and side effects of Enbrel and Humira. Discussed continuing prednisone taper with starting biologic treatment. Advised patient to get blood work 1 month after starting treatment. Encouraged patient to contact clinic with any questions or concerns. documented in this encounter Plan of Treatment Upcoming Encounters Date Type Department Care Team (Late st Contact Info) Description 05/28/2024 1:30 PM EST Office Visit Rheumatology [address] [place], [place] [address] Michelle Goodwin CRNP [facility] [place] [address] 08/31/2024 8:20 AM EST Office Visit Family Practice [facility] [address] [facility] [place] [address] Payal Myers MD 200 [facility] [place] [address] Health Maintenance Due Date Last Done Comments [...] filedocumented as of this encounter Care Teams Operations Representative Relationship Specialty Start Date End Date Payal Myers MD [address] [place] [address] PCP - General Family Medicine 01/21/24 documented as of this encounter
--- OUTSIDE RECORDS SUMMARY | 2024-05-20 11:44 | External Medical Summary | Summary of Care ---
Author Name Unknown Organization [facility] Address [address] [place] [address] Phone [phone] Care Team Providers Care Solutions Consultant Name Role Phone Payal Myers MD Primary Care Provider [phone] Reason for Visit * Reason Onset Date Comments Follow Up 04/09/2024 Encounter Details Date Type Department Care Team (Late st Contact Info) Description 04/09/2024 Telephone Rheumatology [facility] [address] [place] [address] Michelle Goodwin CRNP [address] [place] [address] Follow Up Allergies Active Allergy Reactions Criticality Noted Date Comments Sulfasalazine Rash Medium 10/23/2023 documented as of this encounter (statuses as of 04/09/2024) Medications Medication Sig Dispensed Refills Start Date [...] as of this encounter (statuses as of 04/09/2024) Active Problems Problem Noted Date Diagnosed Date 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 Iron deficiency 02/28/2024 LUDA (generalized anxiety disorder) 10/09/2023 Seronegative inflammatory arthritis 10/09/2023 documented as of this encounter (statuses as of 04/09/2024) Immunizations Name Administration Dates Next Due COVID-19 [...] 05/28/2024 1:30 PM EST Office Visit [address]umatology [address] [place], [place] [address] Michelle Goodwin CRNP [facility] [employer] [place] [address] 08/31/2024 8:20 AM EST Office Visit Family Practice [facility] [address] [facility] [place] [address] Payal Myers MD [address] [facility] [place] [address] Health Maintenance Due Date Last Done Comments Pneumococcal Vaccine: Pediat rics (0 to 5 Years) and At-Risk Patients (6 to 64 Years) (1 of 2 - PCV) 2003 COVID-19 Vaccine (3 - Modern a risk series) 01/01/2021 12/04/2020, 11/06/2020 Influenza Vaccine (FLU shot) (#1) 2024 05/02/2020, 05/02/2020, 08/03/2019, Additional history exists Depression Screening 02/27/2025 02/28/2024 Pap Smear 06/25/2025 06/25/2022, 02/11/2019 DTap/Tdap Vaccines (8 - Td o r Tdap) 01/12/2031 01/12/2021, 01/30/2010, 09/25/2001, Additional history exists Hepatitis B Vaccine Completed 1997, 1997, 1997 HPV (Gardasil) Vaccine Completed 0, 05/13/2009, 02/28/2009 MENINGOCOCCAL (MENACTRA/MENVEO) Completed 4, 01/30/2010 Gonorrhea / Chlamydia Screen Discontinued 09/10/2023, 11/17/2016 documented as of this encounter Medical Devices Not on filedocumented as of this encounter Care Teams Solutions Consultant Relationship Specialty Start Date End Date Payal Myers MD [address] [place] [address] PCP - General Family Medicine 01/21/24 documented as of this encounter
--- OUTSIDE RECORDS SUMMARY | 2024-05-20 11:44 | External Medical Summary | Summary of Care ---
Author Name Unknown Organization [facility] Address [address] [place] [address] Phone [phone] Care Team Providers Care Ladle Cleaner Name Role Phone Payal Myers MD Primary Care Provider [phone] Reason for Visit * Reason Onset Date Comments Follow Up 04/09/2024 Encounter Details Date Type Department Care Team (Late st Contact Info) Description 04/09/2024 Telephone Rheumatology [facility] [address] [place] [address] Michelle Goodwin CRNP [address] [place] [address] Follow Up Allergies Active Allergy Reactions Criticality [...] 05/28/2024 1:30 PM EST Office Visit Rheumatology [address] [place], [place] [address] Michelle Goodwin CRNP [facility] [employer] [place] [address] 08/31/2024 8:20 AM EST Office Visit Family Practice [facility] [address] [facility] [place] [address] Payal Myers MD [address] [facility] [place] [address] Health Maintenance Due Date Last Done Comments [...] filedocumented as of this encounter Care Teams Ladle Cleaner Relationship Specialty Start Date End Date Payal Myers MD [address] [place] [address] PCP - General Family Medicine 01/21/24 documented as of this encounter
--- OUTSIDE RECORDS SUMMARY | 2024-05-20 11:44 | External Medical Summary | Summary of Care ---
Author Name Unknown Organization [facility] Address [address] [place] [address] Phone [phone] Care Team Providers Care Email Marketing Processor Name Role Phone Payal Myers MD Primary Care Provider [phone] Reason for Visit * Reason Onset Date Comments Follow Up 04/09/2024 Encounter Details Date Type Department Care Team (Late st Contact Info) Description 04/09/2024 Telephone Rheumatology [facility] [address] [place] [address] Michelle Goodwin CRNP [address] [place] [address] Follow Up Allergies Active Allergy Reactions Criticality [...] 05/28/2024 1:30 PM EST Office Visit Rheumatology [address] [place], [place] [address] Michelle Goodwin CRNP [facility] [place] [address] 08/31/2024 8:20 AM EST Office Visit Family Practice [facility] 200 [facility] [place] [address] Payal Myers MD [address] [facility] [place] [address] Health Maintenance Due Date Last Done Comments [...] filedocumented as of this encounter Care Teams Email Marketing Processor Relationship Specialty Start Date End Date Payal Myers MD [address] [place] [address] PCP - General Family Medicine 01/21/24 documented as of this encounter
--- OUTSIDE RECORDS SUMMARY | 2024-05-20 11:44 | External Medical Summary | Summary of Care ---
Author Name Unknown Organization [facility] Address [address] [place] [address] Phone [phone] Care Team Providers Care Director Of Dementia Operations Name Role Phone Payal Myers MD Primary Care Provider [phone] Reason for Visit * Reason Onset Date Comments Follow Up 04/09/2024 Encounter Details Date Type Department Care Team (Late st Contact Info) Description 04/09/2024 Telephone Rheumatology [facility] [address] [place] [address] Mihcelle Goodwin CRNP [address] [place] [address] Follow Up Allergies Active Allergy Reactions Criticality [...] 05/28/2024 1:30 PM EST Office Visit Rheumatology [address] [place], [place] [address] Michelle Goodwin CRNP [facility] [address] [place] [address] 08/31/2024 8:20 AM EST Office Visit Family Practice [facility] 200 [facility] [place] [address] Payal Myers MD 200 [facility] [place] [address] Health Maintenance Due Date Last Done Comments [...] filedocumented as of this encounter Care Teams Director Of Dementia Operations Relationship Specialty Start Date End Date Payal Myers MD [address] [place] [address] PCP - General Family Medicine 01/21/24 documented as of this encounter
--- OUTSIDE RECORDS SUMMARY | 2024-05-20 11:44 | External Medical Summary | Summary of Care ---
Author Name Unknown Organization [facility] Address [address] [place] [address] Phone [phone] Care Team Providers Care Crew Person Name Role Phone Payal Myers MD Primary Care Provider Reason for Visit * Reason Onset Date Comments Follow Up 04/09/2024 Encounter Details Date Type Department Care Team (Late st Contact Info) Description 04/09/2024 Telephone Rheumatology [facility] [address] [place] [address] Michelle Goodwin CRNP [address] [place] [address] Follow Up Allergies Active Allergy Reactions Criticality [...] 05/28/2024 1:30 PM EST Office Visit Rheumatology [address] [place], [place] [address] Michelle Goodwin CRNP [facility]0 [employer] [place] [address] 08/31/2024 8:20 AM EST Office Visit Family Practice [facility] [address] [facility] [place] [address] Payal Myers MD [address] [facility] [place] [address] Health Maintenance Due Date Last Done Comments [...] filedocumented as of this encounter Care Teams Crew Person Relationship Specialty Start Date End Date Payal Myers MD [address] [place] [address] PCP - General Family Medicine 01/21/24 documented as of this encounter
[2024-05-20 11:46] LABS: Adenovirus PCR Not Detected (NotDetected); Bordetella parapertussis PCR Not Detected (NotDetected); Bordetella pertussis PCR Not Detected (NotDetected); Chlamydia pneumoniae PCR Not Detected (NotDetected); Coronavirus 229E PCR Not Detected (NotDetected); Coronavirus CoV-2 (COVID19)PCR Not Detected (NotDetected); Coronavirus HKU1 PCR Not Detected (NotDetected); Coronavirus NL63 PCR Not Detected (NotDetected); Coronavirus OC43PCR Not Detected (NotDetected); Human Metapneumovirus PCR Not Detected (NotDetected); Influenza A PCR Not Detected (NotDetected); Influenza B PCR Not Detected (NotDetected); Mycoplasma pneumoniae PCR Not Detected (NotDetected); Parainfluenza Virus 1 PCR Not Detected (NotDetected); Parainfluenza Virus 2 PCR Not Detected (NotDetected); Parainfluenza Virus 3 PCR Not Detected (NotDetected); Parainfluenza Virus 4 PCR Not Detected (NotDetected); Respiratory Syncytial VirusPCR Not Detected (NotDetected); Rhinovirus/Enterovirus PCR Not Detected (NotDetected)
--- NOTE | 2024-05-20 11:58 | Electrocardiogram Report ---
Test Reason : Blood Pressure : */* mmHG Vent. Rate : 104 BPM Atrial Rate : 104 BPM P-R Int : 120 ms QRS Dur : 72 ms QT Int : 312 ms P-R-T Axes : 59 69 43 degrees QTcB Int : 410 ms Sinus tachycardia Low voltage QRS Borderline ECG When compared with ECG of 01-Apr-2024 18:52, No significant change was found Confirmed by Ren Suarez ([id number]) on 05/20/2024 11:58:08 AM Referred By: REFERRED SELF Confirmed By: Ren Suarez
[2024-05-20] MEDS: OPTIRAY 320 125ml IV ONE (12:06)
--- NOTE | 2024-05-20 12:30 | CT Scan Report ---
CT ANGIOGRAM OF THE CHEST CLINICAL HISTORY: Tachycardia. Lightheadedness. Nausea. COMPARISON STUDY: Chest x-ray dated 05/20/2024. TECHNIQUE: Following the IV administration of 118 cc of Optiray 320, CT angiogram of the chest was pe rformed from the upper abdomen to the thoracic inlet utilizing the pulmonary embolus protocol. Images are reviewed in the axial, sagittal, and coronal planes. 3-D MIPS images are created and assessed. I V contrast was administered without complication. A dose lowering technique was utilized adhering to the principles of ALARA. CT DOSE: 512.78 mGy.cm FINDINGS: Thyroid: Imaged portions of the thyroid gland are normal in size and attenuation. Thoracic aorta: The thoracic aorta is normal in caliber and demonstrates standard 3-vessel arch anato my. No dissection is seen. Pulmonary vasculature: The pulmonary trunk is normal in caliber. There are no filling defects identif ied in main, lobar, or segmental pulmonary branches to suggest pulmonary embolus. Heart: The heart is normal in size and without pericardial effusion. Lungs and pleural spaces: There is a 4 mm right middle lobe pulmonary nodule seen on axial image #110 . This is of doubtful significance in this age group. No airspace consolidation or pleural effusion i s identified. The trachea and central airways are clear. There is mild dependent atelectasis. Mediastinum: There is no mediastinal lymphadenopathy. Loren: Clear. Axillae: There are shotty axillary lymph nodes. Upper abdomen: Partially visualized upper abdominal viscera is within normal limits. Skeletal structures: No lytic or blastic bony lesions are seen. IMPRESSION: 1. There is no evidence of pulmonary embolus in the main, lobar, or segmental pulmonary arteries. 2. There is no airspace consolidation or pleural effusion. 3. Additional findings as above. ACT 112: Negative or not required by law. Electronically signed by: Obdulio Bliss M.D. 05/20/2024 12:29 PM
[2024-05-20 12:57] LABS: Appearance Urine Clear (Clear); Bacteria Urine Automated None Seen (None Seen); Bilirubin Urine Negative (Negative); Blood Urine Trace (Negative); Cast Urine Automated 0-2 /lpf (0-2); Color Urine Yellow; Epithelial Cell Urine Auto 0-2 /hpf (0-2); Glucose Urine UA Negative (Negative); Ketones Urine Negative (Negative); Leukocyte Esterase Urine Negative (Negative); Nitrite Urine Negative (Negative); Protein Urine 1+ (Negative); RBC Urine Automated 0-2 /hpf (0-2); Specific Gravity Urine 1.037 (1.000-1.030); Urobilinogen Urine Negative (Negative); WBC Urine Automated 0-5 /hpf (0-5)
--- NOTE | 2024-05-20 14:07 | History & Physical Report ---
Date of Service May 20, 2024 Assessment & Plan (1) Chills: (2) Arthralgia: (3) Sinus tachycardia: (4) Anemia: (5) Leukocytopenia: (6) Seronegative polyarthritis: Plan: #Chills #Arthralgia #Sinus tachycardia #Seronegative polyarthritis #Leukopenia #Elevated AST Patient is a 29-year-old female with PMH seronegative inflammatory polyarthritis presented to ER with c/o tactile fever, chills x 5 days. Started Amjevita 2 weeks ago, last dose was 8 days ago. Recurrent prednisone use, currently on prolonged prednisone taper with last dose of 10mg daily today and to start 5mg daily tomorrow. In ER T: 37.6C, P: 136, R: 18, BP 107/66, 97% on room air. Repeat T: 37.5C, P: 106, BP: 112/68, 97% on room air WBC: 1.83 Hgb:10.7 (11.8 on 02/28/24) Negative respiratory biofire panel Negative tickborne D-dimer: 2740 CTA chest: no infiltrate Obtain rthostatic vital signs Blood cultures pending Peripheral smear pending Tickborne labs pending Random cortisol, obtain cortisol level in a.m. CRP, ESR pending Anemia panel pending UA unremarkable In ER given 1L NSS Continue IV fluids Start empiric cefepime for possible underlying infection. Possible drug reaction ?Adrenal insufficiency Random cortisol level: 7.3. Obtain AM cortisol level. Will continue pt's home prednisone taper, is to start prednisone 5mg daily tomorrow. 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 PCP initially thought possible trigeminal neuralgia and trialed on gabapentin and Trileptal without relief. Outpatient brain MRI on 05/07/24 was unremarkable Hx of tele visit with [facility] neurology who stopped other medication and started on topiramate and baclofen prn and naratriptan prn History TMJ Obtain ESR and CRP. ?Possible temporal arteritis. If elevated consider general surgery consult for consideration biopsy #Elevated Dimer: D-dimer: 2740 CTA chest: negative for PE BLE venous doppler: negative for DVT #Elevated troponin: Troponin: 56.9--> 54.3 Denies CP Repeat troponin May need to consider echo or cardiology consult DVT Prophylaxis SCDs Admit telemetry Follows with Dr Payal Myers for routine care Pt was seen and care coordinated with Dr Quick. See addendum I spent a total of 80 minutes reviewing notes, outpatient records, labs, medication, coordinating, documenting and providing care for this patient excluding time spent in the performance of separately billed services. History of Present Illness Primary Care Provider: Payal Myers MD Patient is a 29-year-old female with PMH seronegative inflammatory polyarthritis presented to ER with c/o tactile fever, chills x 5 days. History obtained from patient and outpatient chart review. Patient reports having intermittent chills, hot flashes and sweats. Has been taking Tylenol so unsure if had fever. Also c/o some intermittent palpitations started 5 days ago. Today felt like had SOB. Denies CP. Today felt a little SOB. Denies leg pain or noted edema or erythema. States feeling tired. Having nausea. Hasn't been eating or drinking well. Lightheaded with standing. Has photophobia and denies vision changes. C/O some neck discomfort which she states often occurs. Denies vomiting, diarrhea, abdominal pain, urinary issues. Taking Tylenol daily. Currently menstruating. Denies V/D/C, syncope, orthopnea, cough, sore throat, choking, otalgia, rhinorrhea, abdominal pain, paresthesias, weakness, other rashes, urinary symptoms. Patient with ongoing history of intermittent HENRIQUEZ's, arthralgias and joint edema and has been following with rheumatology, Dr Malcolm. She has diagnosed seronegative inflammatory polyarthritis and has been tried on several me dications including sulfasalazine which caused rash and Cimzia which caused some similar symptoms. Patient reports her rash from Cimzia improved but never resolved. Patient feels her most recent symptoms seemed to have started after last dose of Amjevita. Last Amjevita 8 days ago. First dose was 2 weeks prior. She states has been on multiple prednisone tapers this year and this time was to be on almost 2 month taper. Today was last day of 10mg prednisone daily and tomorrow is to start 5mg daily. Reports has been having intermittent HENRIQUEZ's for 6 months that are intermittent left sided HENRIQUEZ around mormon. Has been following with PCP and seen on 04/24/24 and for left head and face pain thought possible trigeminal neuralgia and was started on gabapentin did not think that helped much. Had unremarkable brain MRI on 05/07/24 per outpatient chart review. Seen by PCP on 05/14/2024 for follow-up and was switched to Trileptal since gabapentin was ineffective. Was referred to neurology and had telemedicine neurology visit on 05/18/24 who felt less likely trigeminal neuralgia and was started on topiramate and baclofen prn and naratriptan prn. patient states is taking Topiramate and baclofen and hasn't noticed a difference in HENRIQUEZ's. Has not tried the naratriptan yet. She is also currently being treated for TMJ and using mouth guard. She reports enlarged left axilla lymph nodes and had benign appearing Lymph node biopsy left axilla in 01/2024 per chart review. Allergies Allergy/AdvReac Type Severity Reaction Status Date / Time adalimumab-atto Allergy Severe Chills and Unverified 05/20/24 12:40 [From Narda(EMIL)] hot flashes sulfasalazine Allergy Severe Unknown Unverified 05/20/24 12:40 Skin Reaction Home Medications Medication Instructions Recorded Confirmed Type fluoxetine 20 mg capsule 20 mg PO QPM 04/01/24 05/20/24 History norethindrone 1 mg-ethinyl 1 tab PO QPM 04/01/24 05/20/24 History estradiol 20 mcg (21)-iron 75 mg (7) tablet (Melinda Sharmila 08/10 ()) prednisone 5 mg tablet See Rx Instructions .Route .COMPLEX 04/01/24 05/20/24 History baclofen 5 mg tablet 5 mg PO HS PRN Muscle Spasms 05/20/24 05/20/24 History ferrous sulfate 325 mg (65 mg 325 mg PO Q2D 05/20/24 05/20/24 History iron) tablet naratriptan 2.5 mg tablet 2.5 mg PO HS PRN Headache 05/20/24 05/20/24 History topiramate 25 mg tablet See Rx Instructions .Route .COMPLEX 05/20/24 05/20/24 History Past Med/Surg History Problem List (Updated 05/20/24 @ 19:29 by Falguni Castelan PA-C) Leukocytopenia Seronegative polyarthritis Anemia Sinus tachycardia Arthralgia Chills Elevated troponin (Acute) Anxiety Surgical History (Updated 05/20/24 @ 19:29 by Falguni Castelan PA-C) History of lymph node biopsy Family History Grandfather (Paternal) Myocardial infarction Father Myocardial infarction Family/Other Diabetes cousin Grandmother (Maternal) Pancreatoblastoma Social History Smoking Status: Never smoker Do You Dip or Chew Tobacco: No; Hx Alcohol Use: No Hx Substance Use: No Preferred Language: Togolese Communication Ability: Effective It Help Desk Manager Required: No Beliefs That Will Affect Care: None Current Living Situation: Significant Other Current Living Situation Comment: one story home with Howard Feels Safe at Home: Yes Safety Concerns: Feels Safe At This Time Review of Systems Review of Systems: All systems reviewed & are unremarkable except as noted in HPI & below Physical Exam Physical Exam: PE per Dr Quick Results & Data Results & Data Vital Signs (Past 12 Hours) Vital Signs Temp Pulse Pulse Resp BP BP Pulse Ox 05/20/24 13:12 109 H 20 109/67 99 05/20/24 12:46 112 H 05/20/24 12:32 89 20 98 05/20/24 11:56 113 H 20 107/64 98 05/20/24 10:48 109 H 18 99 05/20/24 10:18 05/20/24 10:02 37.6 C H 136 H 18 107/66 97 O2 Del Method 05/20/24 13:12 Room Air 05/20/24 12:46 05/20/24 12:32 Room Air 05/20/24 11:56 Room Air 05/20/24 10:48 Room Air 05/20/24 10:18 Room Air 05/20/24 10:02 Room Air Laboratory Results Short CBC 05/20/24 Range/Units 10:35 WBC 1.83 L (4.8-10.8) K/ul Hgb 10.7 L (12.0-16.0) g/dl Hct 32.2 L (37.0-47.0) % Plt Count 331 (130-400) K/uL BMP 05/20/24 10:35 Sodium 134 L Potassium 3.9 Chloride 100 Carbon Dioxide 29 BUN 11 Creatinine 0.58 L Glucose 97 Calcium 8.2 L Liver Function 05/20/24 Range/Units 10:35 Total Bilirubin 0.4 (0.2-1.0) mg/dl AST 145 H (13-39) U/L ALT 48 (7-52) U/L Alkaline Phosphatase 92 (34-104) U/L Albumin 2.8 L (3.4-5.0) gm/dl Urine 05/20/24 Range/Units 12:43 Urine Color Yellow Urine Appearance Clear (Clear) Urine pH 8.0 H (4.5-7.5) Ur Specific [place] 1.037 H (1.000-1.030) Urine Protein 1+ H (Negative) Urine Glucose (UA) Negative (Negative) Diagnostic Findings Chest X-Ray 05/20/24 10:18 SINGLE VIEW CHEST CLINICAL HISTORY: Generalized weakness. FINDINGS: An AP, portable, upright chest radiograph is compared to study dated 10/19/2023. The cardiomediastinal silhouette is unremarkable. The lungs and pleural spaces are clear. No pneumothorax is seen. The bony thorax is grossly intact. IMPRESSION: No active disease in the chest. ACT 112: Negative or not required by law. Electronically signed by: Obdulio Bliss M.D. 05/20/2024 11:01 AM Chest CTA 05/20/24 11:38 CT ANGIOGRAM OF THE CHEST CLINICAL HISTORY: Tachycardia. Lightheadedness. Nausea. COMPARISON STUDY: Chest x-ray dated 05/20/2024. TECHNIQUE: Following the IV administration of 118 cc of Optiray 320, CT angiogram of the chest was performed from the upper abdomen to the thoracic inlet utilizing the pulmonary embolus protocol. Images are reviewed in the axial, sagittal, and coronal planes. 3-D MIPS images are created and assessed. IV contrast was administered without complication. A dose lowering technique was utilized adhering to the principles of ALARA. CT DOSE: 512.78 mGy.cm FINDINGS: Thyroid: Imaged portions of the thyroid gland are normal in size and attenuation. Thoracic aorta: The thoracic aorta is normal in caliber and demonstrates standard 3-vessel arch anatomy. No dissection is seen. Pulmonary vasculature: The pulmonary trunk is normal in caliber. There are no filling defects identified in main, lobar, or segmental pulmonary branches to suggest pulmonary embolus. Heart: The heart is normal in size and without pericardial effusion. Lungs and pleural spaces: There is a 4 mm right middle lobe pulmonary nodule seen on axial image #110. This is of doubtful significance in this age group. No airspace consolidation or pleural effusion is identified. The trachea and central airways are clear. There is mild dependent atelectasis. Mediastinum: There is no mediastinal lymphadenopathy. Loren: Clear. Axillae: There are shotty axillary lymph nodes. Upper abdomen: Partially visualized upper abdominal viscera is within normal limits. Skeletal structures: No lytic or blastic bony lesions are seen. IMPRESSION: 1. There is no evidence of pulmonary embolus in the main, lobar, or segmental pulmonary arteries. 2. There is no airspace consolidation or pleural effusion. 3. Additional findings as above. ACT 112: Negative or not required by law. Electronically signed by: Obdulio Bliss M.D. 05/20/2024 12:29 PM Venous Doppler Study 05/20/24 14:39 ULTRASOUND BILATERAL LOWER EXTREMITY VENOUS CLINICAL HISTORY: Elevated d-dimer. COMPARISON STUDY: No priors. TECHNIQUE: Real-time, grayscale, and color Doppler sonography of the deep veins of the right and left lower extremity was performed from the inguinal crease to the calf. Compression and augmentation were utilized. FINDINGS: There is no sonographic evidence of deep venous thrombosis identified in the right or left lower extremity. The common femoral, superficial femoral, and popliteal veins are patent and normally compressible bilaterally. The greater saphenous vein and the profunda femoris vein at the junction with the common femoral vein are clear in both legs. The visualized calf veins are patent bilaterally. IMPRESSION: There is no sonographic evidence of deep venous thrombosis identified in the right or left lower extremity. ACT 112: Negative or not required by law. Electronically signed by: Obdulio Bliss M.D. 05/20/2024 4:40 PM Supervising Physician Co-Signing Physician Notes Attending Addendum: Case reviewed with the advanced practitioner. I have personally performed a history and physical examination on the patient. I have reviewed the advanced practitioner's documentation on the date of service referenced in note, and I agree with, and take responsibility for the plan of care. please refer to her notes for full details patient seen and examined, records reviewed by myself as well on exam, patient Seen resting in bed, not in distress, appears weak Reports fever/chills, weakness, palpitations, nausea, poor appetite since receiving second dose of Amjevita for seronegative inflammatory arthritis Also reports worsening of chronic left-sided headache, no photophobia, blurring of vision no other symptoms VS noted and reviewed oriented x3, not in distress, speaks in sentences with no effort nor accessory muscle use, Somewhat weak Head: Positive moderate tenderness to the left temporal region Tachycardic, regular rhythm, no murmurs clear breath sounds bilaterally non distended, soft, nontender no bipedal edema, erythema, warmth no neuro deficits all labs, imaging noted and reviewed ASSESSMENT AND PLAN> Fever/chills, weakness Possible drug reaction to Amjevita (adalimumab) Rule out underlying infection Discussed with patient's other sports coach or instructor Dr. Malcolm Agree with the plan outlined below Call for questions anytime per Dr. Malcolm Chest x-ray: Negative BioFire: Negative UA: Negative Obtain blood cultures Empiric IV cefepime If fevers/chills, headache persistent, may need lumbar puncture Left-sided headache Positive tenderness on palpation of the left temporal region Was seen by [facility] headache specialist 2 days ago, and was diagnosed with occipital neuralgia and cervicalgia Prescribed with Topamax, Imitrex and baclofen, with minimal relief Concern for temporal arteritis? Check ESR, CRP Tachycardia, marginal blood pressure, weakness Rule out adrenal insufficiency Has been on multiple courses of prednisone throughout the year for seronegative inflammatory arthritis Check random cortisol, a.m. cortisol IV fluids, Protonix IV for associated poor appetite, nausea Neutropenia, anemia From drug reaction? 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
[2024-05-20] MEDS: PANTOprazole 40 MG/10 ML SYR IV ONE (15:10)
[2024-05-20] MEDS: CEFEPIME 2000MG 2,000 MG/20 ML SYR IV STA (15:31)
[2024-05-20] MEDS: SODIUM CHLORIDE 0.9% 1,000 ML IV SCH (15:50)
[2024-05-20 16:16] LABS: C Reactive Protein 7.2 mg/dl (0-0.5)
[2024-05-20 16:18] LABS: Cortisol Random 7.31 mcg/dl
[2024-05-20 16:34] LABS: Folate (Folic Acid),Ser orPlas 9.28 ng/ml (>5.38)
--- NOTE | 2024-05-20 16:41 | Ultrasound Report ---
ULTRASOUND BILATERAL LOWER EXTREMITY VENOUS CLINICAL HISTORY: Elevated d-dimer. COMPARISON STUDY: No priors. TECHNIQUE: Real-time, grayscale, and color Doppler sonography of the deep veins of the right and left lower extremity was performed from the inguinal crease to the calf. Compression and augmentation wer e utilized. FINDINGS: There is no sonographic evidence of deep venous thrombosis identified in the right or left lower extremity. The common femoral, superficial femoral, and popliteal veins are patent and normally compressible bilaterally. The greater saphenous vein and the profunda femoris vein at the junction w ith the common femoral vein are clear in both legs. The visualized calf veins are patent bilaterally. IMPRESSION: There is no sonographic evidence of deep venous thrombosis identified in the right or lef t lower extremity. ACT 112: Negative or not required by law. Electronically signed by: Obdulio Bliss M.D. 05/20/2024 4:40 PM
[2024-05-20] MEDS: ADVANCED PROBIOTIC 625 MG CAPSULE PO SCH (19:43)
[2024-05-20] MEDS: TOPIRAMATE 25 MG TAB PO SCH (20:00)
[2024-05-20] MEDS ORDERED: ONDANSETRON INJ 2 MG/ML 2 ML VIAL IV PRN (20:56)
[2024-05-20] MEDS ORDERED: POLYETHYLENE (MIRALAX) 17 GM PACK PO PRN (20:56)
[2024-05-20] MEDS: FLUoxetine HCL 20 MG CAP PO SCH (20:59)
[2024-05-20] MEDS: ACETAMINOPHEN 325 MG TAB PO PRN (21:05)
--- NOTE | 2024-05-20 21:33 | Surgery Consultation ---
Date of Consultation May 20, 2024 Assessment & Plan (1) Headache: Patient is a 29-year-old female who presented to the ED with complaints of fever and chills for the last 5 days. She also complains of intermittent palpitations, nausea and lightheadedness. The patient also complains of ongoing headaches for the last 6 months that are located to the left temporal region that radiates into her left cheek-bone. Patient denies any vision changes with her headaches. She recently has undergone a brain MRI which was unremarkable along with being evaluated by her PCP and teleneurology. Patient was recently started on gabapentin by her PCP for concerns for possible trigeminal neuralgia however after evaluation from neurology they believed this was not causing her symptoms and her medications were switched to topiramate and prn baclofen and naratriptan on 05/18/24. Since starting the medication, she still has not had much relief of her symptoms. Due to ongoing headaches with elevated ESR general surgery was consulted for possible temporal arteritis. Will discuss with on-call surgeon, Dr. Dill, about possible biopsy while inpatient vs outpatient setting For now continue medical management/workup per primary medical team, surgery will continue to follow. History of Present Illness Reason for Consultation: Possible temporal arteritis History of Present Illness Patient is a 29-year-old female who presented to the ED with complaints of fever and chills for the last 5 days. She also complains of intermittent palpitations, nausea, and feeling lightheaded that started around the same time. The patient also complains of ongoing headaches for the last 6 months that are located to the left side of her head. The headaches are always located around her baptism region and the pain radiates down into her cheek-bone as well. She has had some photophobia however denies any vision changes. Patient has also had ongoing arthralgias and joint edema and has been following with a exhaust emissions inspector as an outpatient and was diagnosed with seronegative inflammatory polyarthritis. Since her diagnosis she has tried multiple medications including prednisone tapers and is currently on one now. Originally her PCP believed her headaches were possibly due to trigeminal neuralgia and she was recently started on gabapentin which she states has not helped much. Due to her ongoing symptoms she has also underwent a brain MRI which was found to be unremarkable. She recently just had follow up with her PCP and her medication was switched to Trileptal and was referred to a neurologist. She states after her telemedicine appointment with the neurologist on 05/18/24 they did not feel her symptoms were due to trigeminal neuralgia and she was started on topiramate, prn baclofen and naratriptan. She states due to just starting these medications a few days ago she still has had not much relief in her symptoms. Patient was ultimately worked up in the emergency department and was found to be tachycardic, labs revealed elevated D-dimer and troponin and elevated ESR. Due to ongoing headache and concern for possible temporal arteritis, general surgery was consulted for further evaluation. Patient was seen and evaluated at bedside this evening. She is resting comfortably bed, stable vital signs although still slightly tachycardic in the low 100s, but is in no acute distress. Patient states that she continues with ongoing left-sided headache and denies any vision changes. Allergies Allergy/AdvReac Type Severity Reaction Status Date / Time adalimumab-atto Allergy Severe Chills and Unverified 05/20/24 12:40 [From Narda()] hot flashes sulfasalazine Allergy Severe Unknown Unverified 05/20/24 12:40 Skin Reaction Home Medications Medication Instructions Recorded Confirmed Type fluoxetine 20 mg capsule 20 mg PO QPM 04/01/24 05/20/24 History norethindrone 1 mg-ethinyl 1 tab PO QPM 04/01/24 05/20/24 History estradiol 20 mcg (21)-iron 75 mg (7) tablet (Melinda Doll 08/10 ()) prednisone 5 mg tablet See Rx Instructions .Route .COMPLEX 04/01/24 05/20/24 History baclofen 5 mg tablet 5 mg PO HS PRN Muscle Spasms 05/20/24 05/20/24 History ferrous sulfate 325 mg (65 mg 325 mg PO Q2D 05/20/24 05/20/24 History iron) tablet naratriptan 2.5 mg tablet 2.5 mg PO HS PRN Headache 05/20/24 05/20/24 History topiramate 25 mg tablet See Rx Instructions .Route .COMPLEX 05/20/24 05/20/24 History Patient History Surgical History (Updated 05/20/24 @ 19:29 by Falguni Castelan PA-C) History of lymph node biopsy Family History Grandfather (Paternal) Myocardial infarction Father Myocardial infarction Family/Other Diabetes cousin Grandmother (Maternal) Pancreatoblastoma Social History Smoking Status: Never smoker Do You Dip or Chew Tobacco: No; Hx Alcohol Use: No Hx Substance Use: No Preferred Language: Kosovan Communication Ability: Effective Media Associate Required: No Beliefs That Will Affect Care: None Current Living Situation: Significant Other Current Living Situation Comment: one story home with Howard Feels Safe at Home: Yes Safety Concerns: Feels Safe At This Time Review of Systems Review of Systems: All systems reviewed & are unremarkable except as noted in HPI & below Physical Exam Constitutional: WD/WN, vitals as above Eyes: PERRL, conjunctivae normal, anicteric sclerae ENMT: external ear and nose normal, oropharynx normal +TTP over left temporal region Respiratory: normal respiratory effort, lungs clear to auscultation Cardiovascular: Rate/Rhythm: regular rhythm and + tachycardic Heart Sounds: normal S1 and normal S2 Gastrointestinal (Abdomen): normal bowel sounds, soft, nontender, no hepatosplenomegaly Neurologic: PERRL, EOMI, accommodation nl, no face palsy, no dysarthria Psychiatric: A+Ox3, euthymic affect Results & Data Vital Signs (Past 12 Hours) Vital Signs Temp Pulse Pulse Pulse Resp BP BP 05/20/24 20:54 39.3 C H 102 H 18 106/58 L 05/20/24 19:47 38 C H 107 H 16 96/53 L 05/20/24 17:29 103 H 05/20/24 17:07 37.5 C 106 H 112/68 05/20/24 17:06 05/20/24 14:59 108 H 20 103/64 05/20/24 13:12 109 H 20 109/67 05/20/24 12:46 112 H 05/20/24 12:32 89 20 05/20/24 11:56 113 H 20 107/64 05/20/24 10:48 109 H 18 05/20/24 10:18 05/20/24 10:02 37.6 C H 136 H 18 107/66 Pulse Ox Pulse Ox O2 Del Method O2 Del Method 05/20/24 20:54 97 Room Air 05/20/24 19:47 97 Room Air 05/20/24 17:29 05/20/24 17:07 97 Room Air 05/20/24 17:06 97 Room Air 05/20/24 14:59 99 Room Air 05/20/24 13:12 99 Room Air 05/20/24 12:46 05/20/24 12:32 98 Room Air 05/20/24 11:56 98 Room Air 05/20/24 10:48 99 Room Air 05/20/24 10:18 Room Air 05/20/24 10:02 97 Room Air Diagnostic Findings CT ANGIOGRAM OF THE CHEST CLINICAL HISTORY: Tachycardia. Lightheadedness. Nausea. COMPARISON STUDY: Chest x-ray dated 05/20/2024. TECHNIQUE: Following the IV administration of 118 cc of Optiray 320, CT angiogra m of the chest was performed from the upper abdomen to the thoracic inlet utilizing the pulmonary embolus protocol. Images are reviewed in the axial, sagittal, and coronal planes. 3-D MIPS images are created and assessed. IV contrast was administered without complication. A dose lowering technique was utilized adhering to the principles of ALARA. CT DOSE: 512.78 mGy.cm FINDINGS: Thyroid: Imaged portions of the thyroid gland are normal in size and attenuation. Thoracic aorta: The thoracic aorta is normal in caliber and demonstrates standard 3-vessel arch anatomy. No dissection is seen. Pulmonary vasculature: The pulmonary trunk is normal in caliber. There are no filling defects identified in main, lobar, or segmental pulmonary branches to suggest pulmonary embolus. Heart: The heart is normal in size and without pericardial effusion. Lungs and pleural spaces: There is a 4 mm right middle lobe pulmonary nodule seen on axial image #110. This is of doubtful significance in this age group. No airspace consolidation or pleural effusion is identified. The trachea and central airways are clear. There is mild dependent atelectasis. Mediastinum: There is no mediastinal lymphadenopathy. Loren: Clear. Axillae: There are shotty axillary lymph nodes. Upper abdomen: Partially visualized upper abdominal viscera is within normal limits. Skeletal structures: No lytic or blastic bony lesions are seen. IMPRESSION: 1. There is no evidence of pulmonary embolus in the main, lobar, or segmental pulmonary arteries. 2. There is no airspace consolidation or pleural effusion. 3. Additional findings as above. ULTRASOUND BILATERAL LOWER EXTREMITY VENOUS CLINICAL HISTORY: Elevated d-dimer. COMPARISON STUDY: No priors. TECHNIQUE: Real-time, grayscale, and color Doppler sonography of the deep veins of the right and left lower extremity was performed from the inguinal crease to the calf. Compression and augmentation were utilized. FINDINGS: There is no sonographic evidence of deep venous thrombosis identified in the right or left lower extremity. The common femoral, superficial femoral, and popliteal veins are patent and normally compressible bilaterally. The greater saphenous vein and the profunda femoris vein at the junction with the common femoral vein are clear in both legs. The visualized calf veins are patent bilaterally. IMPRESSION: There is no sonographic evidence of deep venous thrombosis identified in the right or left lower extremity. SINGLE VIEW CHEST CLINICAL HISTORY: Generalized weakness. FINDINGS: An AP, portable, upright chest radiograph is compared to study dated 10/19/2023. The cardiomediastinal silhouette is unremarkable. The lungs and pleural spaces are clear. No pneumothorax is seen. The bony thorax is grossly intact. IMPRESSION: No active disease in the chest. PG Care Time/CCT Total # of Minutes Spent Total Time Spent with Patient: Total time spent is greater than 50% in coordination of care (as documented) at patient's floor/unit and/or counseling patient: Coding Level of Care Code 76901 IN/OBS CONSULT LVL 2,35M Diagnoses Headache R51.9
[2024-05-20] MEDS: NORETHINDRONE E ESTRADIOL IRON PO SCH (23:58)
[2024-05-21] MEDS: CEFEPIME 2000MG 2,000 MG/20 ML SYR IV SCH (00:34)
[2024-05-21] MEDS ORDERED: Nursing to Pharmacy Communication SCH (05:00)
[2024-05-21 07:26] LABS: Hematocrit (blood only) 27.6 % (37.0-47.0); Hemoglobin 9.1 g/dl (12.0-16.0); Mean Corpuscular Hemoglobin 25.9 pg (25.0-34.0); Mean Corpuscular Volume 78.4 fL (80.0-100.0); Mean Platelet Volume 8.4 fL (9.4-12.4); Platelet Count 288 K/uL (130-400); RDW Coefficient of Variation 17.7 % (11.5-14.5); RDW Standard Deviation 50.1 fL (36.4-46.3); Red Blood Count 3.52 M/uL (4.20-5.40); White Blood Count 2.11 K/ul (4.8-10.8)
[2024-05-21 07:45] LABS: Albumin Globulin Ratio 0.7 (0.9-2); Albumin Level 2.3 gm/dl (3.4-5.0); BUN Creatinine Ratio 19.6 (10-20); Bilirubin,Total 0.3 mg/dl (0.2-1.0); Calcium 7.2 mg/dl (8.6-10.3); Creatinine Clr Calc Pharmacy 141.5 ml/min; Globulin 3.1 gm/dl (2.5-4.0); Potassium 3.5 mmol/L (3.5-5.1); Total Protein 5.4 gm/dl (6.0-8.3)
[2024-05-21 07:48] LABS: Immature Granulocytes # (auto) 0.03 K/uL (0.01-0.20); Immature Granulocytes % (auto) 1.4 %; Lymphocytes # (auto) 0.44 K/uL (1.20-3.40); Lymphocytes % (auto) 20.9 %; Monocytes # (auto) 0.06 K/uL (0.11-0.59); Monocytes % (auto) 2.8 %; Neutrophils # (auto) 1.58 K/uL (1.40-6.50); Neutrophils % (auto) 74.9 %
[2024-05-21 07:53] LABS: Troponin I High Sensitivity 53.1 pg/ml (0-14)
[2024-05-21] MEDS: PANTOprazole 40 MG/10 ML SYR IV SCH (08:32)
[2024-05-21] MEDS: predniSONE 5 MG TAB PO SCH (08:32)
[2024-05-21] MEDS: FERROUS SULFATE 325 MG TAB PO SCH (08:32)
[2024-05-21] MEDS: CYANOCOBALAMIN (B-12) 500 MCG TABLET PO SCH (10:06)
[2024-05-21] MEDS: IRON SUCROSE 300 MG in SODIUM CHLORIDE 0.9% 250 ML IV ONE (10:06)
--- NOTE | 2024-05-21 10:32 | Surgery Progress Note ---
Date of Service May 21, 2024 Assessment & Plan (1) Migraine: Plan The patient has been on steroids for the past month and a half without improvement in symptoms rheumatoid arthritis symptoms or in her headaches. Steroids were initiated by her bridge worker apprentice for rheumatoid arthritis. Bhavin states she has been treated for this with steroids off and on many times. The steroids have not proven improvement in migraine symptoms which began roughly a year ago. Active steroid treatment is a contraindication for performing a temporal artery biopsy as this will be a non-diagnostic pathology result. The patient should be off of steroids for at least 2-4 weeks prior to performing an invasive TAB if a TAB is indicated. The patient is also low risk category for GCA as this is very rare in patients less than 50 years of age, she does not have associated vision changes, she has been having these headaches for the past 6 months and no improvement with the treatment for GCA. Bhavin states her neurologist has diagnosed her with migraines. She states neither her neurologist or bridge worker apprentice have suggested GCA based on her clinical picture or ever recommended a biopsy over this past 6 month period. Bhavin does admit that she self ordered her new glasses online back in September when her headaches became worse and believes this correlates with the time frame. She was prescribed Topamax recently for poorly controlled migraines on her other medications and has not gotten around to using it as of yet. Bhavin may follow up with me in the office as her steroid taper is complete for consideration of outpatient TAB if indicated and after discussion with her physicians who have been following this for the past 6 months. Admission and Anticipated Discharge Date Admission Date: May 20, 2024 Subjective The patient was seen and examined this am. In conversation with Results & Data Vital Signs (Past 12 Hours) Vital Signs Temp Pulse Pulse Resp BP BP Pulse Ox 05/21/24 07:56 37.2 C 94 H 18 105/63 96 05/21/24 07:33 94 H 05/21/24 02:51 37.0 C 75 18 97/61 L 97 05/20/24 23:36 37.4 C 97 H 16 97/56 L 95 O2 Del Method 05/21/24 07:56 Room Air 05/21/24 07:33 05/21/24 02:51 Room Air 05/20/24 23:36 Room Air PG Care Time/CCT Total # of Minutes Spent Total Time Spent with Patient: Total time spent is greater than 50% in coordination of care (as documented) at patient's floor/unit and/or counseling patient: Coding Level of Care Code 59627 SUB INP/OBS CARE MIN Diagnoses Migraine G43.909
--- NOTE | 2024-05-21 14:17 | Hospitalist Progress Note ---
Date of Service May 21, 2024 Assessment & Plan (1) Chills: (2) Arthralgia: (3) Sinus tachycardia: (4) Anemia: (5) Leukocytopenia: (6) Seronegative polyarthritis: Plan: Patient is a 29-year-old female with PMH seronegative inflammatory polyarthritis presented to ER with c/o tactile fever, chills x 5 days. Started Amjevita 2 weeks ago, last dose was 8 days ago. Recurrent prednisone use, currently on prolonged prednisone taper course. SIRS Leukopenia Likely drug reaction secondary to Amjevita (adalimumab) Rule out infection source -- Chest CTA showed no signs of consolidation -- UA not suggestive of UTI --BioFire negative --Serology for tickborne illness negative --Blood culture pending --Empirically on IV cefepime --Continue IV fluids Anemia of chronic disease Iron deficiency anemia Vitamin B12 deficiency Peripheral smear showed markedly diminished leukocytes, monocytes. No signs of bleeding No overt signs of bleeding Continue iron supplements Will give a dose of IV Venofer today Started on vitamin B12 supplements Monitor CBC May need to follow-up with hematology as outpatient Elevated D-dimer --Chest CTA: No evidence of PE --Venous Doppler: No DVT Elevated troponin Likely demand ischemia Echo showed no wall motion abnormality EKG showed no signs of acute ischemia Seronegative inflammatory polyarthritis Rash from Cimzia slowly improving Started Amjevita 2 weeks ago Continue prednisone taper course Follows with rheumatology Dr. Malcolm as outpatient Needs follow-up with rheumatology on discharge Left-sided headache Likely occipital neuralgia/cervicalgia Less likely temporal arteritis Seen by [facility] neurology recently Continue Topamax, Imitrex as needed, baclofen as needed Appreciate surgery input: Temporal artery biopsy contraindicated while on steroids. Will recommend to follow-up as outpatient Headache better today Monitor DVT Prophylaxis SCDs for now CODE STATUS Full code Disposition Expected discharge home when stable Admission and Anticipated Discharge Date Admission Date: May 20, 2024 Subjective Patient is seen and examined at bedside Headache much improved Had 1 loose BM today States feeling better today Denies any chest pain, dyspnea, nausea, vomiting, abdominal pain Review of Systems Review of Systems: All systems reviewed & are unremarkable except as noted in Subjective Physical Exam Physical Exam: Physical Exam: Vitals signs as noted above General Appearance:Moderately built and nourished, no apparent distress Head: normocephalic, Atraumatic Eyes: normal inspection, EOMI Neck: supple, Trachea midline Respiratory/Chest: Normal breath sounds, CTA, No accessory muscle use Cardiovascular: S1, S2, tachycardia, no murmur Abdomen/GI:Soft, Non tender, Bowel sounds present Extremities/Musculoskeletal:normal inspection, no edema Neurologic/Psych:AAOX3, grossly no focal neurological deficits Skin: normal color, warm, mild erythematous rash on upper extremities, chest Results & Data Results & Data Vital Signs (Past 12 Hours) Vital Signs Temp Pulse Pulse Resp BP BP Pulse Ox 05/21/24 11:25 37.3 C 121 H 18 101/65 96 05/21/24 07:56 37.2 C 94 H 18 105/63 96 05/21/24 07:33 94 H 05/21/24 02:51 37.0 C 75 18 97/61 L 97 O2 Del Method 05/21/24 11:25 Room Air 05/21/24 07:56 Room Air 05/21/24 07:33 05/21/24 02:51 Room Air Laboratory Results Short CBC 05/21/24 Range/Units 07:05 WBC 2.11 L (4.8-10.8) K/ul Hgb 9.1 L (12.0-16.0) g/dl Hct 27.6 L (37.0-47.0) % Plt Count 288 (130-400) K/uL BMP 05/21/24 07:05 Sodium 137 Potassium 3.5 Chloride 107 Carbon Dioxide 23 BUN 10 Creatinine 0.51 L Glucose 80 Calcium 7.2 L Liver Function 05/21/24 Range/Units 07:05 Total Bilirubin 0.3 (0.2-1.0) mg/dl AST 127 H (13-39) U/L ALT 38 (7-52) U/L Alkaline Phosphatase 65 (34-104) U/L Albumin 2.3 L (3.4-5.0) gm/dl
--- NOTE | 2024-05-21 15:01 | Electrocardiogram Report ---
Test Reason : Blood Pressure : */* mmHG Vent. Rate : 106 BPM Atrial Rate : 106 BPM P-R Int : 124 ms QRS Dur : 70 ms QT Int : 330 ms P-R-T Axes : 56 74 54 degrees QTcB Int : 438 ms Sinus tachycardia Otherwise normal ECG When compared with ECG of 20-May-2024 10:28, No significant change was found Confirmed by Ren Suarez ([id number]) on 05/21/2024 3:00:54 PM Referred By: REFERRED SELF Confirmed By: Ren Suarez
[2024-05-21] MEDS: NORETHINDRONE E ESTRADIOL IRON PO SCH (15:06)
[2024-05-21] MEDS: FLUoxetine HCL 20 MG CAP PO SCH (16:13)
[2024-05-21] MEDS: BACLOFEN 10 MG TAB PO PRN (19:34)
[2024-05-21] MEDS: NARATRIPTAN HCL 2.5 MG PO PRN (20:24)
[2024-05-22] MEDS: POTASSIUM CHLORIDE CRTAB 20 MEQ TABCR PO STA (00:27)
[2024-05-22] MEDS: dexAMETHasone 4 MG in SYRINGE 0 ML IV ONE (00:28)
[2024-05-22] MEDS: NSS + 20MEQ KCL 20 MEQ/1,000 ML BAG IV ONE (00:34)
[2024-05-22 00:58] LABS: Magnesium 1.9 mg/dl (1.7-2.4)
[2024-05-22] MEDS: MAGNESIUM SULFATE / D5W 1 GM/100 ML BAG IV ONE (03:53)
[2024-05-22 06:21] LABS: Hematocrit (blood only) 30.1 % (37.0-47.0); Mean Corpuscular Hemoglobin 26.5 pg (25.0-34.0); Mean Corpuscular Hgb Conc 33.2 g/dL (32.0-36.0); Mean Corpuscular Volume 79.6 fL (80.0-100.0); Mean Platelet Volume 8.5 fL (9.4-12.4); Platelet Count 281 K/uL (130-400); RDW Coefficient of Variation 17.8 % (11.5-14.5); RDW Standard Deviation 51.1 fL (36.4-46.3); Red Blood Count 3.78 M/uL (4.20-5.40); White Blood Count 2.02 K/ul (4.8-10.8)
[2024-05-22 06:47] LABS: Albumin Level 2.5 gm/dl (3.4-5.0); BUN Creatinine Ratio 15.1 (10-20); Bilirubin Direct 0.1 mg/dl (0-0.2); Bilirubin,Total 0.3 mg/dl (0.2-1.0); Calcium 7.7 mg/dl (8.6-10.3); Creatinine Clr Calc Pharmacy 136.2 ml/min; Magnesium 2.5 mg/dl (1.7-2.4); Potassium 4.2 mmol/L (3.5-5.1); Total Protein 5.9 gm/dl (6.0-8.3)
[2024-05-22] MEDS: IRON SUCROSE 300 MG in SODIUM CHLORIDE 0.9% 250 ML IV SCH (11:34)
--- NOTE | 2024-05-22 15:09 | Hospitalist Progress Note ---
Date of Service May 22, 2024 Assessment & Plan (1) Chills: (2) Arthralgia: (3) Sinus tachycardia: (4) Anemia: (5) Leukocytopenia: (6) Seronegative polyarthritis: Plan: Patient is a 29-year-old female with PMH seronegative inflammatory polyarthritis presented to ER with c/o tactile fever, chills x 5 days. Started Amjevita 2 weeks ago, last dose was 8 days ago. Recurrent prednisone use, currently on prolonged prednisone taper course. SIRS Leukopenia Likely drug reaction secondary to Amjevita (adalimumab) Rule out infection source -- Chest CTA showed no signs of consolidation -- UA not suggestive of UTI --BioFire negative --Serology for tickborne illness negative --Blood culture negative to date --Empirically on IV cefepime -- Received IV fluids Monitor CBC Likely discharge tomorrow if continues to improve Anemia of chronic disease Iron deficiency anemia Vitamin B12 deficiency Peripheral smear showed markedly diminished leukocytes, monocytes. No signs of bleeding No overt signs of bleeding Continue iron supplements Continue vitamin B12 supplements Monitor CBC May need to follow-up with hematology as outpatient Will give IV Venofer today Elevated D-dimer --Chest CTA: No evidence of PE --Venous Doppler: No DVT Elevated troponin Likely demand ischemia Echo showed no wall motion abnormality EKG showed no signs of acute ischemia Seronegative inflammatory polyarthritis Rash from Cimzia slowly improving Started Amjevita 2 weeks ago Continue prednisone taper course Follows with rheumatology Dr. Malcolm as outpatient Needs follow-up with rheumatology on discharge Left-sided headache Likely occipital neuralgia/cervicalgia Less likely temporal arteritis Seen by [facility] neurology recently Continue Topamax, Imitrex as needed, baclofen as needed Appreciate surgery input: Temporal artery biopsy contraindicated while on steroids. Will recommend to follow-up as outpatient Headache resolved DVT Prophylaxis SCDs for now CODE STATUS Full code Disposition Expected discharge home when stable Admission and Anticipated Discharge Date Admission Date: May 20, 2024 Subjective Patient is seen and examined at bedside Feels a lot better today Headache resolved Chest pain, dyspnea resolved as well Discussed with patient's family at bedside Eager to get discharged Offers no other complaints today Afebrile Review of Systems Review of Systems: All systems reviewed & are unremarkable except as noted in Subjective Physical Exam Physical Exam: Physical Exam: Vitals signs as noted above General Appearance:Moderately built and nourished, no apparent distress Head: normocephalic, Atraumatic Eyes: normal inspection, EOMI Neck: supple, Trachea midline Respiratory/Chest: Normal breath sounds, CTA, No accessory muscle use Cardiovascular: S1, S2, no murmur Abdomen/GI:Soft, Non tender, Bowel sounds present Extremities/Musculoskeletal:normal inspection, no edema Neurologic/Psych:AAOX3, grossly no focal neurological deficits Skin: normal color, warm, mild erythematous rash on upper extremities, chest Results & Data Results & Data Vital Signs (Past 12 Hours) Vital Signs Temp Pulse Pulse Resp BP BP Pulse Ox 05/22/24 15:00 72 05/22/24 11:43 36.5 C 64 18 106/70 98 05/22/24 07:59 36.3 C L 73 18 111/65 97 05/22/24 07:00 77 05/22/24 05:55 36.5 C 05/22/24 03:08 39.0 C H 98 H 18 110/66 97 O2 Del Method 05/22/24 15:00 05/22/24 11:43 Room Air 05/22/24 07:59 Room Air 05/22/24 07:00 05/22/24 05:55 05/22/24 03:08 Room Air Laboratory Results Short CBC 05/22/24 Range/Units 05:31 WBC 2.02 L (4.8-10.8) K/ul Hgb 10.0 L (12.0-16.0) g/dl Hct 30.1 L (37.0-47.0) % Plt Count 281 (130-400) K/uL BMP 05/22/24 05:31 Sodium 137 Potassium 4.2 Chloride 110 H Carbon Dioxide 22 BUN 8 Creatinine 0.53 L Glucose 104 H Calcium 7.7 L Liver Function 05/22/24 Range/Units 05:31 Total Bilirubin 0.3 (0.2-1.0) mg/dl Direct Bilirubin 0.1 (0-0.2) mg/dl AST 175 H (13-39) U/L ALT 52 (7-52) U/L Alkaline Phosphatase 67 (34-104) U/L Albumin 2.5 L (3.4-5.0) gm/dl
[2024-05-23 03:53] VITALS: O2SAT 97
[2024-05-23 07:21] LABS: Hematocrit (blood only) 31.2 % (37.0-47.0); Hemoglobin 10.1 g/dl (12.0-16.0); Mean Corpuscular Hemoglobin 26.1 pg (25.0-34.0); Mean Corpuscular Hgb Conc 32.4 g/dL (32.0-36.0); Mean Corpuscular Volume 80.6 fL (80.0-100.0); Mean Platelet Volume 8.4 fL (9.4-12.4); Platelet Count 310 K/uL (130-400); RDW Coefficient of Variation 18.1 % (11.5-14.5); RDW Standard Deviation 52.4 fL (36.4-46.3); Red Blood Count 3.87 M/uL (4.20-5.40); White Blood Count 2.34 K/ul (4.8-10.8)
[2024-05-23 07:35] LABS: Calcium 7.9 mg/dl (8.6-10.3); Creatinine Clr Calc Pharmacy 131.2 ml/min; Potassium 3.6 mmol/L (3.5-5.1)
[2024-05-23 07:52] VITALS: BP 98/64; RESP 16; TEMP 98.4
--- NOTE | 2024-05-23 10:57 | Hospitalist Progress Note ---
Date of Service May 23, 2024 Assessment & Plan (1) Chills: (2) Arthralgia: (3) Sinus tachycardia: (4) Anemia: (5) Leukocytopenia: (6) Seronegative polyarthritis: Plan: Patient is a 29-year-old female with PMH seronegative inflammatory polyarthritis presented to ER with c/o tactile fever, chills x 5 days. Started Amjevita 2 weeks ago, last dose was 8 days ago. Recurrent prednisone use, currently on prolonged prednisone taper course. SIRS Leukopenia Likely drug reaction secondary to Amjevita (adalimumab) Rule out infection source -- Chest CTA showed no signs of consolidation -- UA not suggestive of UTI --BioFire negative --Serology for tickborne illness negative --Blood culture negative to date --Empirically on IV cefepime plan to transition to Augmentin on discharge -- Received IV fluids Monitor CBC White blood cell count slowly improving Plan to discharge home today Anemia of chronic disease Iron deficiency anemia Vitamin B12 deficiency Peripheral smear showed markedly diminished leukocytes, monocytes. No signs of bleeding No overt signs of bleeding Continue iron supplements Continue vitamin B12 supplements Monitor CBC May need to follow-up with hematology as outpatient Received IV Venofer Elevated D-dimer --Chest CTA: No evidence of PE --Venous Doppler: No DVT Elevated troponin Likely demand ischemia Echo showed no wall motion abnormality EKG showed no signs of acute ischemia Seronegative inflammatory polyarthritis Rash from Cimzia slowly improving Started Amjevita 2 weeks ago Continue prednisone taper course Follows with rheumatology Dr. Malcolm as outpatient Needs follow-up with rheumatology on discharge Left-sided headache Likely occipital neuralgia/cervicalgia Less likely temporal arteritis Seen by [facility] neurology recently Continue Topamax, Imitrex as needed, baclofen as needed Appreciate surgery input: Temporal artery biopsy contraindicated while on steroids. Will recommend to follow-up as outpatient Headache resolved DVT Prophylaxis SCDs for now CODE STATUS Full code Disposition Home Admission and Anticipated Discharge Date Admission Date: May 20, 2024 Subjective Patient is seen and examined at bedside Doing well today No new complaints Headache, chest pain, dyspnea resolved Plan to discharge home today Review of Systems Review of Systems: All systems reviewed & are unremarkable except as noted in Subjective Physical Exam Physical Exam: Physical Exam: Vitals signs as noted above General Appearance:Moderately built and nourished, no apparent distress Head: normocephalic, Atraumatic Eyes: normal inspection, EOMI Neck: supple, Trachea midline Respiratory/Chest: Normal breath sounds, CTA, No accessory muscle use Cardiovascular: S1, S2, no murmur Abdomen/GI:Soft, Non tender, Bowel sounds present Extremities/Musculoskeletal:normal inspection, no edema Neurologic/Psych:AAOX3, grossly no focal neurological deficits Skin: normal color, warm, mild erythematous rash on upper extremities, chest Results & Data Results & Data Vital Signs (Past 12 Hours) Vital Signs Temp Pulse Resp BP BP Pulse Ox O2 Del Method 05/23/24 07:51 36.9 C 85 16 98/64 L 97 Room Air 05/23/24 03:52 36.6 C 85 20 99/62 L 97 Room Air 05/22/24 23:23 36.9 C 89 16 97/53 L 98 Laboratory Results Short CBC 05/23/24 Range/Units 06:53 WBC 2.34 L (4.8-10.8) K/ul Hgb 10.1 L (12.0-16.0) g/dl Hct 31.2 L (37.0-47.0) % Plt Count 310 (130-400) K/uL BMP 05/23/24 06:53 Sodium 137 Potassium 3.6 Chloride 107 Carbon Dioxide 23 BUN 11 Creatinine 0.55 L Glucose 87 Calcium 7.9 L
--- NOTE | 2024-05-23 11:10 | Discharge Summary ---
Date of Service May 23, 2024 Admission HPI Per Admitting Provider Patient is a 29-year-old female with PMH seronegative inflammatory polyarthritis presented to ER with c/o tactile fever, chills x 5 days. History obtained from patient and outpatient chart review. Patient reports having intermittent chills, hot flashes and sweats. Has been taking Tylenol so unsure if had fever. Also c/o some intermittent palpitations started 5 days ago. Today felt like had SOB. Denies CP. Today felt a little SOB. Denies leg pain or noted edema or erythema. States feeling tired. Having nausea. Hasn't been eating or drinking well. Lightheaded with standing. Has photophobia and denies vision changes. C/O some neck discomfort which she states often occurs. Denies vomiting, diarrhea, abdominal pain, urinary issues. Taking Tylenol daily. Currently menstruating. Denies V/D/C, syncope, orthopnea, cough, sore throat, choking, otalgia, rhinorrhea, abdominal pain, paresthesias, weakness, other rashes, urinary symptoms. Patient with ongoing history of intermittent HENRIQUEZ's, arthralgias and joint edema and has been following with rheumatology, Dr Malcolm. She has diagnosed seronegative inflammatory polyarthritis and has been tried on several medications including sulfasalazine which caused rash and Cimzia which caused some similar symptoms. Patient reports her rash from Cimzia improved but never resolved. Patient feels her most recent symptoms seemed to have started after last dose of Amjevita. Last Amjevita 8 days ago. First dose was 2 weeks prior. She states has been on multiple prednisone tapers this year and this time was to be on almost 2 month taper. Today was last day of 10mg prednisone daily and tomorrow is to start 5mg daily. Reports has been having intermittent HENRIQUEZ's for 6 months that are intermittent left sided HENRIQUEZ around gnosticist. Has been following with PCP and seen on 04/24/24 and for left head and face pain thought possible trigeminal neuralgia and was started on gabapentin did not think that helped much. Had unremarkable brain MRI on 05/07/24 per outpatient chart review. Seen by PCP on 05/14/2024 for follow-up and was switched to Trileptal since gabapentin was ineffective. Was referred to neurology and had telemedicine neurology visit on 05/18/24 who felt less likely trigeminal neuralgia and was started on topiramate and baclofen prn and naratriptan prn. patient states is taking Topiramate and baclofen and hasn't noticed a difference in HENRIQUEZ's. Has not tried the naratriptan yet. She is also currently being treated for TMJ and using mouth guard. She reports enlarged left axilla lymph nodes and had benign appearing Lymph node biopsy left axilla in 01/2024 per chart review. Admission Exam Per Admitting Provider VS noted and reviewed oriented x3, not in distress, speaks in sentences with no effort nor accessory muscle use, Somewhat weak Head: Positive moderate tenderness to the left temporal region Tachycardic, regular rhythm, no murmurs clear breath sounds bilaterally non distended, soft, nontender no bipedal edema, erythema, warmth no neuro deficits Principal Diagnosis SIRS Leukopenia Likely drug reaction secondary to Amjevita (adalimumab) Iron deficiency anemia Vitamin B12 deficiency Occipital neuralgia/cervicalgia Discharge Data Allergies Allergy/AdvReac Type Severity Reaction Status Date / Time adalimumab-atto Allergy Severe Chills and Unverified 05/20/24 12:40 [From Amjevita(CF)] hot flashes sulfasalazine Allergy Severe Unknown Unverified 05/20/24 12:40 Skin Reaction Consultations 05/20/24 13:43 ED Decision to Admit Stat 05/20/24 19:20 Consult General Surgery Routine Procedures Performed Laboratory Results WBC 2.34 K/ul (4.8-10.8) L 05/23/24 06:53 RBC 3.87 M/uL (4.20-5.40) L 05/23/24 06:53 Hgb 10.1 g/dl (12.0-16.0) L 05/23/24 06:53 Hct 31.2 % (37.0-47.0) L 05/23/24 06:53 MCV 80.6 fL (80.0-100.0) 05/23/24 06:53 MCH 26.1 pg (25.0-34.0) 05/23/24 06:53 MCHC 32.4 g/dL (32.0-36.0) 05/23/24 06:53 RDW Std Deviation 52.4 fL (36.4-46.3) H 05/23/24 06:53 RDW Coeff of Jackie 18.1 % (11.5-14.5) H 05/23/24 06:53 Plt Count 310 K/uL (130-400) 05/23/24 06:53 MPV 8.4 fL (9.4-12.4) L 05/23/24 06:53 Immature Gran % (Auto) 1.4 % 05/21/24 07:05 Neut % (Auto) 74.9 % 05/21/24 07:05 Lymph % (Auto) 20.9 % 05/21/24 07:05 [place] % (Auto) 2.8 % 05/21/24 07:05 Eos % (Auto) 0.0 % 05/21/24 07:05 Baso % (Auto) 0.0 % 05/21/24 07:05 Neut # (Auto) 1.58 K/uL (1.40-6.50) 05/21/24 07:05 Lymph # (Auto) 0.44 K/uL (1.20-3.40) L 05/21/24 07:05 [place] # (Auto) 0.06 K/uL (0.11-0.59) L 05/21/24 07:05 Eos # (Auto) 0.00 K/uL (0.00-0.50) 05/21/24 07:05 Baso # (Auto) 0.00 K/uL (0.00-0.20) 05/21/24 07:05 Immature Gran # (Auto) 0.03 K/uL (0.01-0.20) 05/21/24 07:05 Peripher Smr Path Cons 05/20/24 15:30 ESR 55 mm/hr (0-20) H 05/20/24 15:30 PT 9.8 Seconds (9.0-12.0) 05/20/24 10:35 INR 0.9 (0.9-1.1) 05/20/24 10:35 D-Dimer 2740 ug/L FEU (0-500) H* 05/20/24 10:35 Sodium 137 mmol/L (136-145) 05/23/24 06:53 Potassium 3.6 mmol/L (3.5-5.1) 05/23/24 06:53 Chloride 107 mmol/L (98-107) 05/23/24 06:53 Carbon Dioxide 23 mmol/L (21-32) 05/23/24 06:53 Anion Gap 7 (3-11) 05/23/24 06:53 BUN 11 mg/dl (6-23) 05/23/24 06:53 Creatinine 0.55 mg/dl (0.6-1.2) L 05/23/24 06:53 Est Cr Clr Drug Dosing 131.2 ml/min 05/23/24 06:53 eGFR 128.76 05/23/24 06:53 BUN/Creatinine Ratio 20.0 (10-20) 05/23/24 06:53 Glucose 87 mg/dl (70-99(Fasting)) 05/23/24 06:53 Calcium 7.9 mg/dl (8.6-10.3) L 05/23/24 06:53 Magnesium 2.5 mg/dl (1.7-2.4) H 05/22/24 05:31 Iron 13 mcg/dl (35-150) L 05/20/24 15:30 Unsaturated IBC 192 mcg/dl (155-355) 05/20/24 15:30 Transferrin 161 mg/dl (200-360) L 05/20/24 15:30 Ferritin 3444.0 ng/ml (8-388) H 05/20/24 15:30 Total Bilirubin 0.3 mg/dl (0.2-1.0) 05/22/24 05:31 Direct Bilirubin 0.1 mg/dl (0-0.2) 05/22/24 05:31 AST 175 U/L (13-39) H 05/22/24 05:31 ALT 52 U/L (7-52) 05/22/24 05:31 Alkaline Phosphatase 67 U/L (34-104) 05/22/24 05:31 Troponin I High Sens 53.1 pg/ml (0-14) H* D 05/21/24 07:05 C-Reactive Protein 7.20 mg/dl (0-0.5) H 05/20/24 15:30 Total Protein 5.9 gm/dl (6.0-8.3) L 05/22/24 05:31 Albumin 2.5 gm/dl (3.4-5.0) L 05/22/24 05:31 Globulin 3.1 gm/dl (2.5-4.0) 05/21/24 07:05 Albumin/Globulin Ratio 0.7 (0.9-2) L 05/21/24 07:05 Lipase 58 U/L (11-82) 05/20/24 10:35 Vitamin B12 155 pg/ml (180-914) L 05/20/24 15:30 Folate 9.28 ng/ml (>5.38) 05/20/24 15:30 TSH 3.824 uIu/ml (0.300-4.500) 05/20/24 10:35 Random Cortisol 7.31 mcg/dl 05/20/24 15:30 Cortisol AM Sample 15.18 mcg/dl (6.2-22.6) 05/21/24 07:05 Urine Color Yellow 05/20/24 12:43 Urine Appearance Clear (Clear) 05/20/24 12:43 Urine pH 8.0 (4.5-7.5) H 05/20/24 12:43 Ur Specific Dawn 1.037 (1.000-1.030) H 05/20/24 12:43 Urine Protein 1+ (Negative) H 05/20/24 12:43 Urine Glucose (UA) Negative (Negative) 05/20/24 12:43 Urine Ketones Negative (Negative) 05/20/24 12:43 Urine Blood Trace (Negative) H 05/20/24 12:43 Urine Nitrite Negative (Negative) 05/20/24 12:43 Urine Bilirubin Negative (Negative) 05/20/24 12:43 Urine Urobilinogen Negative (Negative) 05/20/24 12:43 Ur Leukocyte Esterase Negative (Negative) 05/20/24 12:43 Urine WBC (Auto) 0-5 /hpf (0-5) 05/20/24 12:43 Urine RBC (Auto) 0-2 /hpf (0-2) 05/20/24 12:43 U Hyaline Cast (Auto) 0-2 /lpf (0-2) 05/20/24 12:43 U Epithel Cells (Auto) 0-2 /hpf (0-2) 05/20/24 12:43 Urine Bacteria (Auto) None Seen (None Seen) 05/20/24 12:43 Adenovirus (PCR) Not Detected (NotDetected) 05/20/24 10:35 Anaplasma Smear See Comment 05/20/24 15:30 Babesia Smear See Comment 05/20/24 15:30 B. pertussis DNA (PCR) Not Detected (NotDetected) 05/20/24 10:35 B.parapertussis DNA PCR Not Detected (NotDetected) 05/20/24 10:35 Lyme Disease Screen Negative (Negative) 05/20/24 10:35 C. pneumoniae DNA (PCR) Not Detected (NotDetected) 05/20/24 10:35 Coronavirus OC43 (PCR) Not Detected (NotDetected) 05/20/24 10:35 Coronavirus HKU1 (PCR) Not Detected (NotDetected) 05/20/24 10:35 Coronavirus 229E (PCR) Not Detected (NotDetected) 05/20/24 10:35 SARS-CoV-2 (PCR) Not Detected (NotDetected) 05/20/24 10:35 Coronavirus NL63 (PCR) Not Detected (NotDetected) 05/20/24 10:35 Human Metapneumovir PCR Not Detected (NotDetected) 05/20/24 10:35 Influenza Type A (PCR) Not Detected (NotDetected) 05/20/24 10:35 Influenza Type B (PCR) Not Detected (NotDetected) 05/20/24 10:35 M. pneumoniae (PCR) Not Detected (NotDetected) 05/20/24 10:35 Parainfluenza 1 (PCR) Not Detected (NotDetected) 05/20/24 10:35 Parainfluenza 2 (PCR) Not Detected (NotDetected) 05/20/24 10:35 Parainfluenza 3 (PCR) Not Detected (NotDetected) 05/20/24 10:35 Parainfluenza 4 (PCR) Not Detected (NotDetected) 05/20/24 10:35 RSV (PCR) Not Detected (NotDetected) 05/20/24 10:35 Entero/Rhino (PCR) Not Detected (NotDetected) 05/20/24 10:35 Impressions Chest X-Ray 05/20/24 10:18 SINGLE VIEW CHEST CLINICAL HISTORY: Generalized weakness. FINDINGS: An AP, portable, upright chest radiograph is compared to study dated 10/19/2023. The cardiomediastinal silhouette is unremarkable. The lungs and pleural spaces are clear. No pneumothorax is seen. The bony thorax is grossly intact. IMPRESSION: No active disease in the chest. ACT 112: Negative or not required by law. Electronically signed by: Obdulio Bliss M.D. 05/20/2024 11:01 AM Chest CTA 05/20/24 11:38 CT ANGIOGRAM OF THE CHEST CLINICAL HISTORY: Tachycardia. Lightheadedness. Nausea. COMPARISON STUDY: Chest x-ray dated 05/20/2024. TECHNIQUE: Following the IV administration of 118 cc of Optiray 320, CT angiogram of the chest was performed from the upper abdomen to the thoracic inlet utilizing the pulmonary embolus protocol. Images are reviewed in the axial, sagittal, and coronal planes. 3-D MIPS images are created and assessed. IV contrast was administered without complication. A dose lowering technique was utilized adhering to the principles of ALARA. CT DOSE: 512.78 mGy.cm FINDINGS: Thyroid: Imaged portions of the thyroid gland are normal in size and attenuation. Thoracic aorta: The thoracic aorta is normal in caliber and demonstrates standard 3-vessel arch anatomy. No dissection is seen. Pulmonary vasculature: The pulmonary trunk is normal in caliber. There are no filling defects identified in main, lobar, or segmental pulmonary branches to suggest pulmonary embolus. Heart: The heart is normal in size and without pericardial effusion. Lungs and pleural spaces: There is a 4 mm right middle lobe pulmonary nodule seen on axial image #110. This is of doubtful significance in this age group. No airspace consolidation or pleural effusion is identified. The trachea and central airways are clear. There is mild dependent atelectasis. Mediastinum: There is no mediastinal lymphadenopathy. Loren: Clear. Axillae: There are shotty axillary lymph nodes. Upper abdomen: Partially visualized upper abdominal viscera is within normal limits. Skeletal structures: No lytic or blastic bony lesions are seen. IMPRESSION: 1. There is no evidence of pulmonary embolus in the main, lobar, or segmental pulmonary arteries. 2. There is no airspace consolidation or pleural effusion. 3. Additional findings as above. ACT 112: Negative or not required by law. Electronically signed by: Obdulio Bliss M.D. 05/20/2024 12:29 PM Venous Doppler Study 05/20/24 14:39 ULTRASOUND BILATERAL LOWER EXTREMITY VENOUS CLINICAL HISTORY: Elevated d-dimer. COMPARISON STUDY: No priors. TECHNIQUE: Real-time, grayscale, and color Doppler sonography of the deep veins of the right and left lower extremity was performed from the inguinal crease to the calf. Compression and augmentation were utilized. FINDINGS: There is no sonographic evidence of deep venous thrombosis identified in the right or left lower extremity. The common femoral, superficial femoral, and popliteal veins are patent and normally compressible bilaterally. The greater saphenous vein and the profunda femoris vein at the junction with the common femoral vein are clear in both legs. The visualized calf veins are patent bilaterally. IMPRESSION: There is no sonographic evidence of deep venous thrombosis identified in the right or left lower extremity. ACT 112: Negative or not required by law. Electronically signed by: Obdulio Bliss M.D. 05/20/2024 4:40 PM Ordered Studies 05/20/24 11:38 CT angio chest PE protocol Stat 05/20/24 14:39 US venous doppler [facility] Urgent Hospital Course (1) Chills: (2) Arthralgia: (3) Sinus tachycardia: (4) Anemia: (5) Leukocytopenia: (6) Seronegative polyarthritis: Patient is a 29-year-old female with PMH seronegative inflammatory polyarthritis presented to ER with c/o tactile fever, chills x 5 days. Started Amjevita 2 weeks ago, last dose was 8 days ago. Recurrent prednisone use, currently on prolonged prednisone taper course. SIRS Leukopenia Likely drug reaction secondary to Amjevita (adalimumab) Rule out infection source -- Chest CTA showed no signs of consolidation -- UA not suggestive of UTI --BioFire negative --Serology for tickborne illness negative --Blood culture negative to date --Empirically on IV cefepime plan to transition to Augmentin on discharge -- Received IV fluids Monitor CBC White blood cell count slowly improving Plan to discharge home today Anemia of chronic disease Iron deficiency anemia Vitamin B12 deficiency Peripheral smear showed markedly diminished leukocytes, monocytes. No signs of bleeding No overt signs of bleeding Continue iron supplements Continue vitamin B12 supplements Monitor CBC May need to follow-up with hematology as outpatient Received IV Venofer Elevated D-dimer --Chest CTA: No evidence of PE --Venous Doppler: No DVT Elevated troponin Likely demand ischemia Echo showed no wall motion abnormality EKG showed no signs of acute ischemia Seronegative inflammatory polyarthritis Rash from Cimzia slowly improving Started Amjevita 2 weeks ago Continue prednisone taper course Follows with rheumatology Dr. Malcolm as outpatient Needs follow-up with rheumatology on discharge Left-sided headache Likely occipital neuralgia/cervicalgia Less likely temporal arteritis Seen by [facility] neurology recently Continue Topamax, Imitrex as needed, baclofen as needed Appreciate surgery input: Temporal artery biopsy contraindicated while on steroids. Will recommend to follow-up as outpatient Headache resolved DVT Prophylaxis SCDs for now CODE STATUS Full code Disposition Home Total Time Total Time Spent Total Time Spent (In Minutes): 47 minutes Discharge Plan Discharge Items Patient Disposition: Home - Self-Care Reason For Visit: CHILLS Discharge Diagnosis: SIRS Leukopenia Likely drug reaction secondary to Amjevita (adalimumab) Iron deficiency anemia Vitamin B12 deficiency Occipital neuralgia/cervicalgia Activity: Per Instructions section Exercise/Sports: Wait until after follow-up appointment Non-emergency contact: Primary Care Provider and Specialist Call non-emergency contact if: you have any medication questions, your symptoms worsen, your pain is concerning for you and you have a fever Follow-up/Referrals: Audie Dill DO [Physician] - (If you wish to discuss elective surgery for a temporal artery biopsy once your steroid taper has been complete and it is still being recommended you may call our office for an appointment) Michelle Goodwin CRNP [Outside Practitioners] - (Date & Time 05/28/2024 1:30 PM Provider Michelle Goodwin CRNP Department Rheumatology [facility] ) Payal Myers MD [Primary Care Provider] - (Date & Time 05/28/2024 3:40 PM Provider Payal Myers MD Department Family Practice [facility] ) Diet: Regular Addtl Attending Provider Instructions: Follow-up with your primary care physician on 05/28/2024 3:40 PM 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 Follow-up with your physician for results. --- Complete the antibiotic Augmentin course as prescribed. -- Consider blood work (complete blood count, iron panel) in 2 weeks and follow- up with your physician for further recommendations. Seek immediate medical attention if your symptoms reoccur or worsen Please take all medications as instructed on discharge list below. Please call if you have any questions or problems. You can reach a [facility] hospitalist on duty at [facility] 24 hours a day by calling [phone] Pending Studies at Discharge: Yes Studies:: Blood cultures Stand-Alone Forms: My [facility], Smoking Cessation Medications and DC Order Prescriptions: New Advanced Probiotic 625 mg (10 billion cell) Capsule 1 cap PO DAILY Qty: 10 0RF cyanocobalamin (vitamin B-12) 500 mcg Tablet 1,000 mcg PO QAM Qty: 30 1RF amoxicillin-pot clavulanate [Augmentin] 500-125 mg tablet 1 tab PO BID Qty: 10 0RF Continued topiramate 25 mg tablet See Rx Instructions .ROUTE .COMPLEX Rx Instructions: As of 05/20/24 - Pt is still on 25mg at bedtime, will start increase on 05/25/24 . Original Directions: TAKE 1 TABLET BY MOUTH EVERY NIGHT AT BEDTIME FOR 7 DAYS, THEN 2 TABS AT BEDTIME FOR 7 DAYS, THEN 3 TABS AT BEDTIME FOR 7 DAYS, THEN 4 TABS AT BEDTIME ferrous sulfate 325 mg (65 mg iron) Tablet 325 mg PO Q2D naratriptan 2.5 mg tablet 2.5 mg PO HS PRN (Reason: Headache) baclofen 5 mg tablet 5 mg PO HS PRN (Reason: Muscle Spasms) norethindrone-e.estradiol-iron [Melinda Doll [birth year])] 1 mg-20 mcg (21)/75 mg (7) tablet 1 tab PO QPM fluoxetine 20 mg capsule 20 mg PO QPM prednisone 5 mg tablet See Rx Instructions .ROUTE .COMPLEX Rx Instructions: take 4 tablets by mouth daily for 7 days, 3 tablets daily for 7 days, 2 tablets daily for 7 days, 1 tablet daily for 7 days. As of 05/20/24, pt took last dose of 10mg daily, Pt starts 5mg daily x7 days starting 05/21/24 Discharge Orders: Discharge Order (Routine); Ordered 05/23/24 Ordered By: Mynor Castrejon Admission Data Admit Date/Time: 05/20/24 14:24 Attending Provider: Mynor Castrejon Admit Provider: Piter Quick Primary Care Provider: Payal Myers Other Providers: Piter Quick; Audie Dill
[2024-05-23 12:07] VITALS: PULSE 90
[2024-05-24 06:22] LABS: Babesia microti DNA Not Detected (Not Detected)
== END 2024-05-23 12:10 | disposition home or self-care (01) | DRG 815 ==
LOC: ED 09:55 → 2W 14:24 → SUATTDRO 14:24 → 2W 16:37

== ENCOUNTER 2024-07-03 16:48 | Inpatient (IN) ==
[2024-07-03] MEDS: SODIUM CHLORIDE 0.9% 500 ML IV ONE ×2 (17:21→19:16)
[2024-07-03 17:30] LABS: Hematocrit (blood only) 29.2 % (37.0-47.0); Hemoglobin 9.3 g/dl (12.0-16.0); Mean Corpuscular Hemoglobin 26.2 pg (25.0-34.0); Mean Corpuscular Hgb Conc 31.8 g/dL (32.0-36.0); Mean Corpuscular Volume 82.3 fL (80.0-100.0); Platelet Count 425 K/uL (130-400); RDW Coefficient of Variation 16.1 % (11.5-14.5); RDW Standard Deviation 48.6 fL (36.4-46.3); Red Blood Count 3.55 M/uL (4.20-5.40); White Blood Count 2.42 K/ul (4.8-10.8)
[2024-07-03 17:30] LABS: iSTAT Creatinine 1.1 mg/dl (0.6-1.3); iSTAT Hemoglobin 9.5 g/dl (12.0-16.0); iSTAT Ionized Calcium 1.44 mmol/l (1.12-1.32); iSTAT Potassium 4.1 mmol/L (3.3-5.0)
[2024-07-03 17:49] LABS: BUN Creatinine Ratio 25.3 (10-20); Calcium 11.2 mg/dl (8.6-10.3); Creatinine Clr Calc Pharmacy 68.5 ml/min; Potassium 4.1 mmol/L (3.5-5.1)
[2024-07-03 18:01] LABS: INR 1.1 (0.9-1.1); Partial Thromboplastin Ratio 1.3; Partial Thromboplastin Time 36 Seconds (21-31); Prothrombin Time 11.9 Seconds (9.0-12.0)
[2024-07-03 18:11] LABS: Albumin Globulin Ratio 0.8 (0.9-2); Bilirubin,Total 0.3 mg/dl (0.2-1.0); Globulin 3.6 gm/dl (2.5-4.0); Total Protein 6.6 gm/dl (6.0-8.3)
[2024-07-03 18:14] LABS: Stomatocytes 2+
--- NOTE | 2024-07-03 18:26 | Emergency Department Note ---
Impression & Plan Hyponatremia, Hypomagnesemia, Seronegative polyarthritis, Pancreatitis ED Provider Note NAME: ANN VALERO AGE: 29 SEX: F : 1995 ARRIVES VIA: Walk-In INFORMANT: Patient ED PROVIDER(S): Kervin Alexander MD CHIEF COMPLAINT: Weakness, low sodium, referred. PLAN: Disposition: Admit MEDICAL DECISION MAKING: The patient is a pleasant 29-year-old woman with a past medical history of seronegative inflammatory polyarthritis following with rheumatology who presents to the emergency department via walk-in accompanied by her for evaluation of low sodium after being referred by her outpatient providers for results of outpatient blood work today. Patient presents in the setting of with recent admission at [facility] discharge at the end of May where she had been managed for intermittent fevers which ultimately was suspected to be related to autoimmune process. Additionally, the patient was diagnosed with pancreatitis which was also suspected to be autoimmune in origin. She reports that her abdominal pain has steadily been improving since her discharge. Her oral intake also has improved but still not entirely normal. She reports she has been following with her outpatient provider since her discharge for weekly blood work. Her blood work today demonstrated a sodium of 128 and so she was referred to the emergency department. Patient reports that she did not necessarily feel any acute change in her symptoms today compared to last week as her intermittent headache, dizziness and nausea are unchanged in terms of severity or chronicity. She denies any chest pain or recurrence of severe abdominal pain like she experienced with her acute pancreatitis recently. Of note, the patient did arrive to emergency department during time of high volume, acuity and prolonged emergency department waiting times. Critical pathways initiated from triage. On evaluation the patient is fatigued appearing, but no acute distress, afebrile with heart in the 120s and blood pressure 90s/50s mentating at her baseline. She appears clinically dry. Abdomen is nontender. EKG without overt acute ischemia. CXR with possible trace left pleural effusion but no consolidation or pulmonary edema. WBC 2.4K similar to prior without neutrophilia or left shift. There is no neutropenia. H/H proximal to prior range of values. Platelets 425K, nonspecific. Chemistry without metabolic acidosis. Sodium is 129 with glucose of 78. Serum osmolality is 273 with urine osmolality 297 and random urine sodium 20 which suggests poor solute intake in the setting of free water intake. Magnesium 1.3 with IV repletion provided. Serum calcium mildly elevated 11.2. AST is 67, improved from prior. Lipase is elevated 869 which per review of [facility] records has up trended from 400s but the patient had been as high as 2000s on her last admission to [facility]. Respiratory BioFire was negative. UA without convincing evidence of infection. Given the patient's downtrending electrolytes with suspicion of poor absorption and oral intake patient agrees with plan for admission for further management including IV electrolyte repletion. [facility] the patient for [facility]. Further management per admitting team. Triage Nursing notes reviewed and agree them. Prior/external medical records reviewed Vital Signs: reviewed Differential diagnosis: Infection, dehydration, metabolic abnormality, hypo/hyperglycemia, electrolyte disturbance, anemia, hypoxia, cardiac sources, intracerebral event, toxicologic, neurologic, as well as other pathologies. ER treatment provided: See below. Diagnostics interpreted by me: ECG: Sinus tachycardia, 123 bpm, no ectopy, no overt ST ovation or depression, QTc 412, QRS 70. Cardiac Monitoring: An order for continuous cardiac monitoring was placed and demonstrated Sinus tachycardia, 123 bpm, no ectopy. Laboratory studies: See below Imaging studies: See below Consultation(s): [facility] who will evaluate the patient for admission. HPI: The patient is a pleasant 29-year-old woman with a past medical history of seronegative inflammatory polyarthritis following with rheumatology who presents to the emergency department via walk-in accompanied by her for evaluation of low sodium after being referred by her outpatient providers for results of outpatient blood work today. Patient presents in the setting of with recent admission at [facility] discharge at the end of May where she had been managed for intermittent fevers which ultimately was suspected to be related to autoimmune process. Additionally, the patient was diagnosed with pancreatitis which was also suspected to be autoimmune in origin. She reports that her abdominal pain has steadily been improving since her discharge. Her oral intake also has improved but still not entirely normal. She reports she has been following with her outpatient provider since her discharge for weekly blood work. Her blood work today demonstrated a sodium of 128 and so she was referred to the emergency department. Patient reports that she did not necessarily feel any acute change in her symptoms today compared to last week as her intermittent headache, dizziness and nausea are unchanged in terms of severity or chronicity. She denies any chest pain or recurrence of severe abdominal pain like she experienced with her acute pancreatitis recently. ROS: See above HPI for pertinent positives & negatives. A total of 10 systems reviewed and were otherwise negative. VITALS:See Below PHYSICAL EXAMINATION: GENERAL: Awake, alert, fatigued/chronically ill-appearing, in no distress HENT: Normocephalic, atraumatic. Oropharynx with dry mucous membranes and otherwise unremarkable. EYES: Normal conjunctiva. Sclera non-icteric. NECK: Supple. No nuchal rigidity. FROM. No JVD. RESPIRATORY: Clear to auscultation. CARDIAC: Tachycardic rate, normal rhythm. Extremities warm and well perfused. Pulses equal. ABDOMEN: Soft, non-distended. No tenderness to palpation. No rebound or guarding. No masses. MUSCULOSKELETAL: Chest examination reveals no tenderness. The back is symmetrical on inspection without obvious abnormality. There is no CVA tenderness to palpation. No joint edema. LOWER EXTREMITIES: Calves are equal size bilaterally and non-tender. No edema. No discoloration. NEURO: Normal sensorium. No sensory or motor deficits noted. SKIN: No rash or jaundice noted. Kervin Alexander MD Past Med/Surg History Problem List (Updated 07/04/24 @ 05:57 by Kervin Alexander MD) Pancreatitis (Acute) Hypomagnesemia (Acute) Hyponatremia (Acute) Migraine Headache Leukocytopenia Seronegative polyarthritis (Acute) Anemia Sinus tachycardia Arthralgia Chills Elevated troponin (Acute) Anxiety Surgical History History of lymph node biopsy Family History Grandfather (Paternal) Myocardial infarction Father Myocardial infarction Family/Other Diabetes cousin Grandmother (Maternal) Pancreatoblastoma Social History Smoking Status: Never smoker Second Hand Exposure: No; Do You Dip or Chew Tobacco: No; Tobacco Cessation Education Requested by Patient: No Hx Alcohol Use: No Hx Substance Use: No Preferred Language: Serbian Communication Ability: Effective B2[employer] Account Executive Required: No Beliefs That Will Affect Care: None Current Living Situation: Significant Other Current Living Situation Comment: one story home with Howard Other Information That Helps Us Care for You: No Feels Safe at Home: Yes Safety Concerns: Feels Safe At This Time Assistive Devices: Walker Assistive Devices Comment: needs help on how to properly use walker Allergies Allergies Allergy/AdvReac Type Severity Reaction Status Date / Time adalimumab-atto Allergy Severe Chills and Verified 07/04/24 00:03 [From Narda(EMIL)] hot flashes sulfasalazine Allergy Severe Unknown Verified 07/04/24 00:03 Skin Reaction Home Meds Home Medications Medication Instructions Recorded Confirmed fluoxetine 20 mg capsule 20 mg PO QAM 04/01/24 07/03/24 ferrous sulfate 325 mg (65 mg 325 mg PO Q2D 05/20/24 07/03/24 iron) tablet Dilaudid 1 tab PO Q4H PRN NEEDED 07/03/24 07/03/24 Senokot-S 2 tab PO QAM 07/03/24 07/03/24 fenofibrate 160 mg tablet 160 mg PO QAM 07/03/24 07/03/24 hydrocortisone 2.5 % topical cream 1 applic topical DIRECTED 07/03/24 07/03/24 levothyroxine 88 mcg tablet 88 mcg PO QAM 07/03/24 07/03/24 omeprazole 20 mg capsule,delayed 20 mg PO QAM 07/03/24 07/03/24 release Previous Rx's Medication Instructions Recorded cyanocobalamin (vitamin B-12) 500 1,000 mcg (2 x 500 mcg) PO QAM #30 05/23/24 mcg tablet tabs Results & Data (ED) Vital Signs Vital Signs - 24 hr 07/03/24 17:00 07/03/24 17:28 07/03/24 19:00 Temperature 36.8 C Temperature Source Temporal Artery Scan Pulse Rate 123 H 103 H 106 H Pulse Rate from SpO2 Sensor Respiratory Rate 20 30 H Blood Pressure 97/54 L Blood Pressure Mean 68 Pulse Oximetry 98 Oxygen Delivery Method Room Air Sepsis New/Unexplained Change in Mental Status No Sepsis Action Taken by Nursing No Action Required 07/03/24 19:14 07/03/24 20:30 07/03/24 21:00 Temperature Temperature Source Pulse Rate 108 H 107 H 110 H Pulse Rate from SpO2 Sensor 107 H 110 H Respiratory Rate 28 H 26 H 25 H Blood Pressure 115/65 114/71 124/82 Blood Pressure Mean 79 78 96 Pulse Oximetry 99 98 100 Oxygen Delivery Method Sepsis New/Unexplained Change in Mental Status Sepsis Action Taken by Nursing 07/03/24 21:30 07/03/24 21:30 07/03/24 21:46 Temperature Temperature Source Pulse Rate 105 H 108 H 105 H Pulse Rate from SpO2 Sensor 105 H Respiratory Rate 29 H 22 Blood Pressure 118/69 118/69 Blood Pressure Mean 85 74 Pulse Oximetry 99 97 Oxygen Delivery Method Sepsis New/Unexplained Change in Mental Status Sepsis Action Taken by Nursing 07/03/24 22:00 Temperature Temperature Source Pulse Rate 112 H Pulse Rate from SpO2 Sensor 112 H Respiratory Rate 26 H Blood Pressure 118/69 Blood Pressure Mean 77 Pulse Oximetry 97 Oxygen Delivery Method Sepsis New/Unexplained Change in Mental Status Sepsis Action Taken by Nursing Laboratory Data Attestation: I reviewed the patient's lab results. 07/03/24 17:06 07/04/24 00:49 Lab Results 07/03/24 07/03/24 07/03/24 Range/Units 17:06 17:17 19:10 WBC 2.42 L (4.8-10.8) K/ul RBC 3.55 L (4.20-5.40) M/uL Hgb 9.3 L (12.0-16.0) g/dl POC Hgb 9.5 L (12.0-16.0) g/dl Hct 29.2 L (37.0-47.0) % POC Hct 28 L (37-47) % MCV 82.3 (80.0-100.0) fL MCH 26.2 (25.0-34.0) pg MCHC 31.8 L (32.0-36.0) g/dL RDW Std Deviation 48.6 H (36.4-46.3) fL RDW Coeff of Jackie 16.1 H (11.5-14.5) % Plt Count 425 H (130-400) K/uL MPV 9.0 L (9.4-12.4) fL Immature Gran % (Auto) 3.3 % Neut % (Auto) 80.1 % Lymph % (Auto) 11.6 % [place] % (Auto) 5.0 % Eos % (Auto) 0.0 % Baso % (Auto) 0.0 % Neut # (Auto) 1.94 (1.40-6.50) K/uL Lymph # (Auto) 0.28 L (1.20-3.40) K/uL [place] # (Auto) 0.12 (0.11-0.59) K/uL Eos # (Auto) 0.00 (0.00-0.50) K/uL Baso # (Auto) 0.00 (0.00-0.20) K/uL Immature Gran # (Auto) 0.08 (0.01-0.20) K/uL Stomatocytes 2+ PT 11.9 (9.0-12.0) Seconds INR 1.1 (0.9-1.1) APTT 36 H (21-31) Seconds PTT Ratio 1.3 POC Sodium 126 L (135-144) mmol/L Sodium 129 L (136-145) mmol/L POC Potassium 4.1 (3.3-5.0) mmol/L Potassium 4.1 (3.5-5.1) mmol/L POC Chloride 85 L (101-112) mmol/L Chloride 87 L (98-107) mmol/L Carbon Dioxide 35 H (21-32) mmol/L POC Total CO2 32 H (24-31) mmol/L Anion Gap 7 (3-11) POC Anion Gap 14.0 L (16-25) mmol/L POC BUN 22 H (7-18) mg/dl BUN 22 (6-23) mg/dl Creatinine 0.87 (0.6-1.2) mg/dl POC Creatinine 1.1 (0.6-1.3) mg/dl Est Cr Clr Drug Dosing 68.5 ml/min eGFR 93.59 BUN/Creatinine Ratio 25.3 H (10-20) Glucose 78 (70-99(Fasting)) mg/dl POC Glucose (other) 81 (70-99) mg/dl Osmolality 273 L (280-300) mOsm/kg Calcium 11.2 H (8.6-10.3) mg/dl POC Ioniz Calcium Jared 1.44 H (1.12-1.32) mmol/l Phosphorus 2.8 (2.5-4.9) mg/dl Magnesium 1.3 L (1.7-2.4) mg/dl Total Bilirubin 0.3 (0.2-1.0) mg/dl AST 67 H (13-39) U/L ALT 15 (7-52) U/L Alkaline Phosphatase 90 (34-104) U/L Total Protein 6.6 (6.0-8.3) gm/dl Albumin 3.0 L (3.4-5.0) gm/dl Globulin 3.6 (2.5-4.0) gm/dl Albumin/Globulin Ratio 0.8 L (0.9-2) Lipase 869 H (11-82) U/L Procalcitonin 0.32 (0-0.5) ng/ml TSH 3.468 (0.300-4.500) uIu/ml Urine Color Yellow Urine Appearance Cloudy A (Clear) Urine pH 7.0 (4.5-7.5) Ur Specific [place] 1.011 (1.000-1.030) Urine Protein Trace H (Negative) Urine Glucose (UA) Negative (Negative) Urine Ketones Negative (Negative) Urine Blood Negative (Negative) Urine Nitrite Negative (Negative) Urine Bilirubin Negative (Negative) Urine Urobilinogen Negative (Negative) Ur Leukocyte Esterase 1+ H (Negative) Urine WBC (Auto) 6-10 H (0-5) /hpf Urine RBC (Auto) 0-2 (0-2) /hpf U Hyaline Cast (Auto) 6-10 H (0-2) /lpf U Epithel Cells (Auto) 3-5 H (0-2) /hpf Urine Bacteria (Auto) None Seen (None Seen) Amorphous Sediment Present A (None Prsent) Urine Osmolality 297 L (500-800) mOsm/kg Ur Random Sodium 20 mmol/L Adenovirus (PCR) Not Detected (NotDetected) B. pertussis DNA (PCR) Not Detected (NotDetected) B.parapertussis DNA PCR Not Detected (NotDetected) C. pneumoniae DNA (PCR) Not Detected (NotDetected) Coronavirus OC43 (PCR) Not Detected (NotDetected) Coronavirus HKU1 (PCR) Not Detected (NotDetected) Coronavirus 229E (PCR) Not Detected (NotDetected) SARS-CoV-2 (PCR) Not Detected (NotDetected) Coronavirus NL63 (PCR) Not Detected (NotDetected) Human Metapneumovir PCR Not Detected (NotDetected) Influenza Type A (PCR) Not Detected (NotDetected) Influenza Type B (PCR) Not Detected (NotDetected) M. pneumoniae (PCR) Not Detected (NotDetected) Parainfluenza 1 (PCR) Not Detected (NotDetected) Parainfluenza 2 (PCR) Not Detected (NotDetected) Parainfluenza 3 (PCR) Not Detected (NotDetected) Parainfluenza 4 (PCR) Not Detected (NotDetected) RSV (PCR) Not Detected (NotDetected) Entero/Rhino (PCR) Not Detected (NotDetected) Administered Medications Potassium Chloride/Sodium Chloride (Normal Saline W/20 Meq Kcl) 20 meq in 1,000 mls @ 75 mls/hr IV .[id number] ONE Stop: 07/04/24 15:49 Last Admin: 07/04/24 03:15 Dose: 75 mls/hr Documented By: ANA MARÍA Discontinued Medications Sodium Chloride (Nss) 500 mls @ 999 mls/hr IV .Q31M ONE Stop: 07/03/24 17:42 Last Infusion: 07/03/24 18:09 Dose: Infused Documented By: Admin: 07/03/24 17:21 Dose: 999 mls/hr Documented By: SANTOS Sodium Chloride (Nss) 1,000 mls @ 999 mls/hr IV .[id number] ONE Stop: 07/03/24 19:47 Last Admin: 07/03/24 19:57 Dose: Not Given Documented By: NAGI Sodium Chloride (Nss) 500 mls @ 999 mls/hr IV .Q31M ONE Stop: 07/03/24 19:28 Last Infusion: 07/03/24 20:23 Dose: Infused Documented By: Admin: 07/03/24 19:16 Dose: 999 mls/hr Documented By: NAGI Magnesium Sulfate/Dextrose (Magnesium Sulfate / D5w) 1 gm in 100 mls @ 100 mls/hr IV Q1H ABBY Stop: 07/03/24 23:16 Last Infusion: 07/03/24 23:51 Dose: Infused Documented By: Admin: 07/03/24 22:47 Dose: 100 mls/hr Documented By: Infusion: 07/03/24 22:37 Dose: Infused Documented By: Admin: 07/03/24 21:37 Dose: 100 mls/hr Documented By: NAGI Magnesium Sulfate/Dextrose (Magnesium Sulfate / D5w) 1 gm in 100 mls @ 50 mls/hr IV ONE ONE Stop: 07/04/24 02:14 Last Infusion: 07/04/24 03:16 Dose: Infused Documented By: ANA MARÍA Admin: 07/04/24 01:16 Dose: 50 mls/hr Documented By: ANA MARÍA Albumin Human (Albumin 25%) 25 gm in 100 mls @ 50 mls/hr IV ONE STA Stop: 07/03/24 23:48 Last Infusion: 07/04/24 00:45 Dose: Infused Documented By: ANA MARÍA Admin: 07/03/24 22:45 Dose: 50 mls/hr Documented By: NAGI Ioversol (Optiray 320 125ml) 118 ml IV ONCE ONE Stop: 07/04/24 00:29 Last Admin: 07/04/24 00:28 Dose: 118 ml Documented By: MARIANGEL Imaging Data Radiologist's Impression: Chest X-Ray 07/03/24 17:06 EXAM: Radiograph of the Chest 1 View INDICATION: Chest pain. TECHNIQUE: Frontal view of the chest. COMPARISON: 05/20/2024 FINDINGS: Lungs and pleural spaces: There may be a trace left pleural effusion with blunting of the left lateral costophrenic sulcus now present. No pneumothorax. No consolidation or pulmonary edema. Heart: Shape and configuration within normal limits allowing for technique. Mediastinum: Normal contour. Bones/joints: No fracture, erosion or dislocation. Soft tissues: No abnormality noted. No radiopaque foreign body noted. Upper abdomen: No abnormality noted. IMPRESSION: There may be a trace left pleural effusion with blunting of the left lateral costophrenic sulcus now present. Otherwise negative. ACT 112: Negative or not required by law. Electronically signed by Delfina Thomson 07-03-2024 6:58 PM Discharge Plan Visit Data Chief Complaint: Referred by Doctor Stated Complaint: SODIUM IS LOW AND CHLORIDE IS LOW ED Provider: Kervin Alexander Discharge Problem: Hyponatremia, Hypomagnesemia, Seronegative polyarthritis, Pancreatitis Patient Disposition: Admitted As Inpatient Discharge Instructions Interventions: ED Discharge Assessment Last Done: 07/03/24 23:54 Discharge Problem: Pancreatitis Qualifiers: Chronicity: acute Pancreatitis type: unspecified pancreatitis type Acute pancreatitis complication: unspecified Qualified Code(s): K85.90 - Acute pancreatitis without necrosis or infection, unspecified
[2024-07-03 18:34] LABS: Immature Granulocytes # (auto) 0.08 K/uL (0.01-0.20); Immature Granulocytes % (auto) 3.3 %; Lymphocytes # (auto) 0.28 K/uL (1.20-3.40); Lymphocytes % (auto) 11.6 %; Monocytes # (auto) 0.12 K/uL (0.11-0.59); Neutrophils # (auto) 1.94 K/uL (1.40-6.50); Neutrophils % (auto) 80.1 %
--- NOTE | 2024-07-03 18:58 | XRay Report ---
EXAM: Radiograph of the Chest 1 View INDICATION: Chest pain. TECHNIQUE: Frontal view of the chest. COMPARISON: 05/20/2024 FINDINGS: Lungs and pleural spaces: There may be a trace left pleural effusion with blunting of the left lateral costophrenic sulcus now present. No pneumothorax. No consolidation or pulmonary edema. Heart: Shape and configuration within normal limits allowing for technique. Mediastinum: Normal contour. Bones/joints: No fracture, erosion or dislocation. Soft tissues: No abnormality noted. No radiopaque foreign body noted. Upper abdomen: No abnormality noted. IMPRESSION: There may be a trace left pleural effusion with blunting of the left lateral costophrenic sulcus now present. Otherwise negative. ACT 112: Negative or not required by law. Electronically signed by Delfina Thomson 07-03-2024 6:58 PM
[2024-07-03 19:19] LABS: Magnesium 1.3 mg/dl (1.7-2.4)
[2024-07-03] MEDS: SODIUM CHLORIDE 0.9% 1,000 ML IV ONE (19:57)
[2024-07-03 20:21] LABS: Adenovirus PCR Not Detected (NotDetected); Bordetella parapertussis PCR Not Detected (NotDetected); Bordetella pertussis PCR Not Detected (NotDetected); Chlamydia pneumoniae PCR Not Detected (NotDetected); Coronavirus 229E PCR Not Detected (NotDetected); Coronavirus CoV-2 (COVID19)PCR Not Detected (NotDetected); Coronavirus HKU1 PCR Not Detected (NotDetected); Coronavirus NL63 PCR Not Detected (NotDetected); Coronavirus OC43PCR Not Detected (NotDetected); Human Metapneumovirus PCR Not Detected (NotDetected); Influenza A PCR Not Detected (NotDetected); Influenza B PCR Not Detected (NotDetected); Mycoplasma pneumoniae PCR Not Detected (NotDetected); Parainfluenza Virus 1 PCR Not Detected (NotDetected); Parainfluenza Virus 2 PCR Not Detected (NotDetected); Parainfluenza Virus 3 PCR Not Detected (NotDetected); Parainfluenza Virus 4 PCR Not Detected (NotDetected); Respiratory Syncytial VirusPCR Not Detected (NotDetected); Rhinovirus/Enterovirus PCR Not Detected (NotDetected)
[2024-07-03] MEDS: MAGNESIUM SULFATE / D5W 1 GM/100 ML BAG IV SCH (21:37)
[2024-07-03 22:10] LABS: Phosphorus 2.8 mg/dl (2.5-4.9)
--- NOTE | 2024-07-03 22:19 | History & Physical Report ---
Date of Service July 03, 2024 Assessment & Plan (1) Pleural effusion: Plan: Left pleural effusion (Bilateral pleural effusions on imaging from [facility] confinement last month) hx seronegative polyarthritis macrophage activation syndrome status post recent steroid Rx Pancreatitis with fluid collections hx gallstone pancreatitis during [facility] confinement last month hyponatremia secondary to illness Hypercalcemia, likely secondary to medications given for hypocalcemia during recent [facility] confinement recent diagnosis of hypothyroidism, currently euthyroid chronic anemia, hemoglobin at baseline Leukopenia likely from autoimmune condition Malnutrition, low BMI Medical telemetry Pulmonology consult re: pleural effusion GI consult re: pancreatitis with fluid collections Hyponatremia workup Careful correction of sodium Stop calcitriol and calcium supplements May benefit from nephrology eval given electrolyte abnormalities Nutrition consult re: low BMI DVT prophylaxis. SCDs for now re: possible procedure Full code Text document was generated using [employer] voice recognition software. It may contain grammatical or spelling errors. Kindly contact undersigned for clarification of any documentation item in question. History of Present Illness Chief Complaint: Sent by PCP Primary Care Provider: Payal Myers MD History obtained from patient, family, and records. Medical history significant for seronegative polyarthritis, macrophage activation syndrome, history of pancreatitis, hypothyroidism, chronic anemia (baseline hemoglobin 9-10), mood disorder. Recent [facility] confinement last month for fever chills joint aches attributed to Amjevita drug reaction. Persistent illness following hospital discharge. 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 Inflammatory polyarthritis/macrophage activation syndrome diagnosed during confinement. Patient received steroids during [facility] admission Hypocalcemia noted and primary hypothyroidism on blood work. Patient discharged on calcitriol, calcium tablets, levothyroxine, and steroid taper medications. Hospital course complicated by gallstone pancreatitis as per documentation. CT abdomen pelvis last 06/11 showed 1. Findings compatible with interstitial pancreatitis. 2. Moderate volume ascites. Mild peritoneal thickening may represent peritonit is. 3. Moderate bilateral pleural effusions. Ultrasound abdomen showed hepatic steatosis, equivocal for acute cholecystitis. TTE 06/04/2024 Interpretation Summary The examination is adequate to evaluate the referral indication. The qualitative LV ejection fraction is 55-59% (normal). No LV segmental wall motion abnormalities. The right ventricular cavity size is normal (basal dimension < 4.2 cm RV apical 4 chamber view). The right ventricular systolic function is qualitatively normal. No significant valvular disease is present. GI service recommended general surgery evaluation for possible gallstone pancreatitis. General surgery recommended outpatient surgery follow-up for elective cholecystectomy. Last few days, patient with shortness of breath worse on exertion. No chest pain. No cough symptoms. Usual achy abdominal discomfort. Persistent poor appetite since [facility] discharge few weeks ago. Chronic headache symptoms. Hyponatremia (1 32 to 128) and hypercalcemia (12.6 to 11.8) on outpatient blood work over the last 3 days. Patient directed to ER for evaluation. 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 Allergies Allergy/AdvReac Type Severity Reaction Status Date / Time adalimumab-atto Allergy Severe Chills and Verified 07/04/24 00:03 [From Narda(EMIL)] hot flashes sulfasalazine Allergy Severe Unknown Verified 07/04/24 00:03 Skin Reaction Home Medications Medication Instructions Recorded Confirmed Type fluoxetine 20 mg capsule 20 mg PO QAM 04/01/24 07/03/24 History ferrous sulfate 325 mg (65 mg 325 mg PO Q2D 05/20/24 07/03/24 History iron) tablet cyanocobalamin (vitamin B-12) 500 1,000 mcg (2 x 500 mcg) PO QAM #30 05/23/24 07/03/24 Rx mcg tablet tabs Dilaudid 1 tab PO Q4H PRN NEEDED 07/03/24 07/03/24 History Senokot-S 2 tab PO QAM 07/03/24 07/03/24 History fenofibrate 160 mg tablet 160 mg PO QAM 07/03/24 07/03/24 History hydrocortisone 2.5 % topical cream 1 applic topical DIRECTED 07/03/24 07/03/24 History levothyroxine 88 mcg tablet 88 mcg PO QAM 07/03/24 07/03/24 History omeprazole 20 mg capsule,delayed 20 mg PO QAM 07/03/24 07/03/24 History release Past Med/Surg History Problem List (Updated 07/04/24 @ 06:17 by Jono Golden MD) Pleural effusion Pancreatitis (Acute) Hypomagnesemia (Acute) Hyponatremia (Acute) Migraine Headache Leukocytopenia Seronegative polyarthritis (Acute) Anemia Sinus tachycardia Arthralgia Chills Elevated troponin (Acute) Anxiety Surgical History History of lymph node biopsy Family History Grandfather (Paternal) Myocardial infarction Father Myocardial infarction Family/Other Diabetes cousin Grandmother (Maternal) Pancreatoblastoma Social History Smoking Status: Never smoker Second Hand Exposure: No; Do You Dip or Chew Tobacco: No; Tobacco Cessation Education Requested by Patient: No Hx Alcohol Use: No Hx Substance Use: No Preferred Language: Telugu Communication Ability: Effective Product Manager [employer] Required: No Beliefs That Will Affect Care: None Current Living Situation: Significant Other Current Living Situation Comment: one story home with Howard Other Information That Helps Us Care for You: No Feels Safe at Home: Yes Safety Concerns: Feels Safe At This Time Assistive Devices: Walker Assistive Devices Comment: needs help on how to properly use walker Review of Systems Review of Systems: As per HPI, all other systems reviewed and negative Physical Exam Physical Exam: GENERAL: Slightly anxious, underweight, chronically ill, no respiratory distress SKIN: Pallor, warm HEENT: Pale palpebral conjunctivae, no ptosis, dry buccal mucosa NECK : Supple, no tenderness CHEST : Decreased breath sounds, no tenderness HEART : Tachycardic, no obvious murmurs ABDOMEN: Some distention, minimal epigastric tenderness EXTREMITIES : No LE swelling/tenderness, no other conspicuous deformities noted NEUROLOGIC : Coherent, no facial asymmetry, no other gross focality Results & Data Results & Data Vital Signs (Past 12 Hours) Vital Signs Temp Pulse Resp BP Pulse Ox O2 Del Method 07/03/24 21:46 105 H 07/03/24 21:30 105 H 29 H 118/69 99 07/03/24 21:00 110 H 25 H 124/82 100 07/03/24 20:30 107 H 26 H 114/71 98 07/03/24 19:14 108 H 28 H 115/65 99 07/03/24 19:00 106 H 30 H 07/03/24 17:28 103 H 07/03/24 17:00 36.8 C 123 H 20 97/54 L 98 Room Air Laboratory Results Laboratory Results WBC 2.42 K/ul (4.8-10.8) L 07/03/24 17:06 RBC 3.55 M/uL (4.20-5.40) L 07/03/24 17:06 Hgb 9.3 g/dl (12.0-16.0) L 07/03/24 17:06 POC Hgb 9.5 g/dl (12.0-16.0) L 07/03/24 17:17 Hct 29.2 % (37.0-47.0) L 07/03/24 17:06 POC Hct 28 % (37-47) L 07/03/24 17:17 MCV 82.3 fL (80.0-100.0) 07/03/24 17:06 MCH 26.2 pg (25.0-34.0) 07/03/24 17:06 MCHC 31.8 g/dL (32.0-36.0) L 07/03/24 17:06 RDW Std Deviation 48.6 fL (36.4-46.3) H 07/03/24 17:06 RDW Coeff of Jackie 16.1 % (11.5-14.5) H 07/03/24 17:06 Plt Count 425 K/uL (130-400) H 07/03/24 17:06 MPV 9.0 fL (9.4-12.4) L 07/03/24 17:06 Immature Gran % (Auto) 3.3 % 07/03/24 17:06 Neut % (Auto) 80.1 % 07/03/24 17:06 Lymph % (Auto) 11.6 % 07/03/24 17:06 Van Zandt % (Auto) 5.0 % 07/03/24 17:06 Eos % (Auto) 0.0 % 07/03/24 17:06 Baso % (Auto) 0.0 % 07/03/24 17:06 Neut # (Auto) 1.94 K/uL (1.40-6.50) 07/03/24 17:06 Lymph # (Auto) 0.28 K/uL (1.20-3.40) L 07/03/24 17:06 [place]andt # (Auto) 0.12 K/uL (0.11-0.59) 07/03/24 17:06 Eos # (Auto) 0.00 K/uL (0.00-0.50) 07/03/24 17:06 Baso # (Auto) 0.00 K/uL (0.00-0.20) 07/03/24 17:06 Immature Gran # (Auto) 0.08 K/uL (0.01-0.20) 07/03/24 17:06 Stomatocytes 2+ 07/03/24 17:06 PT 11.9 Seconds (9.0-12.0) 07/03/24 17:06 INR 1.1 (0.9-1.1) 07/03/24 17:06 APTT 36 Seconds (21-31) H 07/03/24 17:06 PTT Ratio 1.3 07/03/24 17:06 POC Sodium 126 mmol/L (135-144) L 07/03/24 17:17 Sodium 129 mmol/L (136-145) L 07/03/24 17:06 POC Potassium 4.1 mmol/L (3.3-5.0) 07/03/24 17:17 Potassium 4.1 mmol/L (3.5-5.1) 07/03/24 17:06 POC Chloride 85 mmol/L (101-112) L 07/03/24 17:17 Chloride 87 mmol/L (98-107) L 07/03/24 17:06 Carbon Dioxide 35 mmol/L (21-32) H 07/03/24 17:06 POC Total CO2 32 mmol/L (24-31) H 07/03/24 17:17 Anion Gap 7 (3-11) 07/03/24 17:06 POC Anion Gap 14.0 mmol/L (16-25) L 07/03/24 17:17 POC BUN 22 mg/dl (7-18) H 07/03/24 17:17 BUN 22 mg/dl (6-23) 07/03/24 17:06 Creatinine 0.87 mg/dl (0.6-1.2) 07/03/24 17:06 POC Creatinine 1.1 mg/dl (0.6-1.3) 07/03/24 17:17 Est Cr Clr Drug Dosing 68.5 ml/min 07/03/24 17:06 eGFR 93.59 07/03/24 17:06 BUN/Creatinine Ratio 25.3 (10-20) H 07/03/24 17:06 Glucose 78 mg/dl (70-99(Fasting)) 07/03/24 17:06 POC Glucose (other) 81 mg/dl (70-99) 07/03/24 17:17 Osmolality 273 mOsm/kg (280-300) L 07/03/24 17:06 Calcium 11.2 mg/dl (8.6-10.3) H 07/03/24 17:06 POC Ioniz Calcium Jared 1.44 mmol/l (1.12-1.32) H 07/03/24 17:17 Phosphorus 2.8 mg/dl (2.5-4.9) 07/03/24 17:06 Magnesium 1.3 mg/dl (1.7-2.4) L 07/03/24 17:06 Total Bilirubin 0.3 mg/dl (0.2-1.0) 07/03/24 17:06 AST 67 U/L (13-39) H 07/03/24 17:06 ALT 15 U/L (7-52) 07/03/24 17:06 Alkaline Phosphatase 90 U/L (34-104) 07/03/24 17:06 Total Protein 6.6 gm/dl (6.0-8.3) 07/03/24 17:06 Albumin 3.0 gm/dl (3.4-5.0) L 07/03/24 17:06 Globulin 3.6 gm/dl (2.5-4.0) 07/03/24 17:06 Albumin/Globulin Ratio 0.8 (0.9-2) L 07/03/24 17:06 Lipase 869 U/L (11-82) H 07/03/24 17:06 Procalcitonin 0.32 ng/ml (0-0.5) 07/03/24 17:06 Urine Osmolality 297 mOsm/kg (500-800) L 07/03/24 19:10 Ur Random Sodium 20 mmol/L 07/03/24 19:10 Adenovirus (PCR) Not Detected (NotDetected) 07/03/24 19:10 B. pertussis DNA (PCR) Not Detected (NotDetected) 07/03/24 19:10 B.parapertussis DNA PCR Not Detected (NotDetected) 07/03/24 19:10 C. pneumoniae DNA (PCR) Not Detected (NotDetected) 07/03/24 19:10 Coronavirus OC43 (PCR) Not Detected (NotDetected) 07/03/24 19:10 Coronavirus HKU1 (PCR) Not Detected (NotDetected) 07/03/24 19:10 Coronavirus 229E (PCR) Not Detected (NotDetected) 07/03/24 19:10 SARS-CoV-2 (PCR) Not Detected (NotDetected) 07/03/24 19:10 Coronavirus NL63 (PCR) Not Detected (NotDetected) 07/03/24 19:10 Human Metapneumovir PCR Not Detected (NotDetected) 07/03/24 19:10 Influenza Type A (PCR) Not Detected (NotDetected) 07/03/24 19:10 Influenza Type B (PCR) Not Detected (NotDetected) 07/03/24 19:10 M. pneumoniae (PCR) Not Detected (NotDetected) 07/03/24 19:10 Parainfluenza 1 (PCR) Not Detected (NotDetected) 07/03/24 19:10 Parainfluenza 2 (PCR) Not Detected (NotDetected) 07/03/24 19:10 Parainfluenza 3 (PCR) Not Detected (NotDetected) 07/03/24 19:10 Parainfluenza 4 (PCR) Not Detected (NotDetected) 07/03/24 19:10 RSV (PCR) Not Detected (NotDetected) 07/03/24 19:10 Entero/Rhino (PCR) Not Detected (NotDetected) 07/03/24 19:10 Impressions Chest X-Ray 07/03/24 17:06 EXAM: Radiograph of the Chest 1 View INDICATION: Chest pain. TECHNIQUE: Frontal view of the chest. COMPARISON: 05/20/2024 FINDINGS: Lungs and pleural spaces: There may be a trace left pleural effusion with blunting of the left lateral costophrenic sulcus now present. No pneumothorax. No consolidation or pulmonary edema. Heart: Shape and configuration within normal limits allowing for technique. Mediastinum: Normal contour. Bones/joints: No fracture, erosion or dislocation. Soft tissues: No abnormality noted. No radiopaque foreign body noted. Upper abdomen: No abnormality noted. IMPRESSION: There may be a trace left pleural effusion with blunting of the left lateral costophrenic sulcus now present. Otherwise negative. ACT 112: Negative or not required by law. Electronically signed by Delfina Thomson 07-03-2024 6:[address] chest: 1. Mild left sided pleural effusion with passive subsegmental collapse of left lower lobe is seen-new finding. 2. No evidence of pulmonary embolism. CT abdomen pelvis: . Mild left sided pleural effusion with passive subsegmental collapse of left lower lobe is seen. 2. Approximately 60 x 57 x 88 mm sized ill-defined peripherally enhancing loculated collection is noted involving peripancreatic and intrapancreatic region in the gastrocolic space. 3. Mild thickening of distal body and tail of pancreas without obvious necrotic component- serum amylase and lipase correlation suggested. 4. Mild inflammatory thickening is also noted involving adjacent large bowel loop. Diffuse adjacent omental thickening with nodularity also seen. Diagnostic Findings EKG as per my interpretation :Rate 125, sinus tachycardia, normal axis, T wave abnormalities septal leads
[2024-07-03 22:21] LABS: Thyroid Stimulating Hormone 3.468 uIu/ml (0.300-4.500)
[2024-07-03] MEDS ORDERED: oxyCODONE HCL IR 5 MG TAB (IMMEDIATE RELEASE) PO PRN (22:21)
[2024-07-03] MEDS ORDERED: hydrOXYzine HCl 10 MG TAB PO PRN (22:21)
[2024-07-03] MEDS ORDERED: PROMETHAZINE 6.25 MG/50.25 ML BAG IV PRN (22:21)
[2024-07-03] MEDS ORDERED: ACETAMINOPHEN 325 MG TAB PO PRN (22:21)
[2024-07-03] MEDS: ALBUMIN 25% 25 GM/100 ML VIAL IV STA (22:45)
[2024-07-03] MEDS ORDERED: ACETAMINOPHEN 500 MG TAB PO PRN (23:58)
[2024-07-04] MEDS: OPTIRAY 320 125ml IV ONE (00:28)
[2024-07-04 00:40] LABS: Amorphous Sediment Urine Present (None Prsent); Appearance Urine Cloudy (Clear); Bacteria Urine Automated None Seen (None Seen); Bilirubin Urine Negative (Negative); Blood Urine Negative (Negative); Color Urine Yellow; Glucose Urine UA Negative (Negative); Ketones Urine Negative (Negative); Leukocyte Esterase Urine 1+ (Negative); Nitrite Urine Negative (Negative); Protein Urine Trace (Negative); RBC Urine Automated 0-2 /hpf (0-2); Specific Gravity Urine 1.011 (1.000-1.030); Urobilinogen Urine Negative (Negative)
[2024-07-04] MEDS ORDERED: HYDROmorphone HCL 2 MG TAB PO PRN (00:40)
--- NOTE | 2024-07-04 01:15 | CT Scan Report ---
EXAM: CT angio chest PE protocol CLINICAL HISTORY: sob, r/o pe 118 cc''s optiray 320 TECHNIQUE: Contiguous axial images were obtained from the neck base through the upper abdomen following intravenous administration of iodinated contrast material. Angiographic images were processed, 3D MIP images were acquired for interpretation. If IV contrast material had not been administered, the likelihood of detecting abnormalities relevant to the patient's condition would have been substantially decreased. Coronal and sagittal 3-D MIPs were likewise performed and indicated to increase the sensitivity of detectin diffuse clinically relevant pathology. CT scan was performed according to ALARA (as low as reasonable achievable). COMPARISON: 05/20/2024 10:57:31 AUTOMATIC THREAD WINDER. FINDINGS: Mild left sided pleural effusion with passive subsegmental collapse of left lower lobe is seen. Adequate contrast bolus without evidence of pulmonary embolism. The central airways are patent. The lungs are clear. The heart, aorta, and pulmonary arteries are of normal size and configuration. There are no appreciable coronary artery and aortic atherosclerotic calcifications. No pericardial effusion is identified. The thyroid is unremarkable. No mediastinal, hilar, or axillary lymphadenopathy is noted. No suspicious lytic or sclerotic osseous lesions are identified. IMPRESSION: 1. Mild left sided pleural effusion with passive subsegmental collapse of left lower lobe is seen-new finding. 2. No evidence of pulmonary embolism. Electronically signed by Linwood Fraga 07-04-2024 01:15 AM
[2024-07-04] MEDS: MAGNESIUM SULFATE / D5W 1 GM/100 ML BAG IV ONE (01:16)
--- NOTE | 2024-07-04 01:26 | CT Scan Report ---
EXAM: CT abd pelvis IV con only CLINICAL HISTORY: abd pain 118 cc''s optiray 320 TECHNIQUE: Contiguous axial images were obtained from the level of the diaphragm to the pubic symphysis with intravenous contrast. Coronal and sagittal reconstructions were likewise performed and indicated to increase the sensitivity for detecting clinically relevant pathology. If IV contrast material had not been administered, the likelihood of detecting abnormalities relevant to the patient's condition would have been substantially decreased. CT scan was performed according to ALARA (as low as reasonable achievable). COMPARISON: None. FINDINGS: Mild left sided pleural effusion with passive subsegmental collapse of left lower lobe is seen. Approximately 60 x 57 x 88 mm sized ill-defined peripherally enhancing loculated collection is noted involving peripancreatic and intrapancreatic region in the gastrocolic space. Mild thickening of distal body and tail of pancreas without obvious necrotic component. Mild inflammatory thickening is also noted involving adjacent large bowel loop. Diffuse adjacent omental thickening with nodularity also seen. The liver is normal in size and attenuation. No focal liver lesions are seen. There is no intra or extrahepatic biliary ductal dilatation. Hepatic vasculature is patent. The gallbladder is present. The spleen, and adrenal glands are unremarkable. The kidneys are normal in size and attenuation. There is no hydronephrosis or perinephric fat stranding. No renal calculi or renal masses are identified. The ureters are normal in caliber and no ureteral calculi are seen. The bladder is normal in contour. Pelvic viscera are unremarkable. The appendix is visualized in the right lower quadrant and appears within normal limits. Abdominal and pelvic vasculature is patent. No aggressive appearing osseous lesions are identified. IMPRESSION: 1. Mild left sided pleural effusion with passive subsegmental collapse of left lower lobe is seen. 2. Approximately 60 x 57 x 88 mm sized ill-defined peripherally enhancing loculated collection is noted involving peripancreatic and intrapancreatic region in the gastrocolic space. 3. Mild thickening of distal body and tail of pancreas without obvious necrotic component- serum amylase and lipase correlation suggested. 4. Mild inflammatory thickening is also noted involving adjacent large bowel loop. Diffuse adjacent omental thickening with nodularity also seen. Electronically signed by Linwood Fraga 07-04-2024 01:26 AM
[2024-07-04 01:34] LABS: Creatinine Clr Calc Pharmacy 81.7 ml/min; Potassium 3.8 mmol/L (3.5-5.1)
[2024-07-04] MEDS: NSS + 20MEQ KCL 20 MEQ/1,000 ML BAG IV ONE (03:15)
[2024-07-04] MEDS: HEPARIN SOD 5,000 UNIT/0.5 ML VIAL SQ SCH (06:24)
[2024-07-04] MEDS: LEVOTHYROXINE SODIUM 88 MCG TABLET PO SCH (06:36)
[2024-07-04 06:37] LABS: Hematocrit (blood only) 22.8 % (37.0-47.0); Hemoglobin 7.5 g/dl (12.0-16.0); Immature Granulocytes # (auto) 0.03 K/uL (0.01-0.20); Immature Granulocytes % (auto) 1.8 %; Lymphocytes # (auto) 0.26 K/uL (1.20-3.40); Lymphocytes % (auto) 15.7 %; Mean Corpuscular Hemoglobin 27.2 pg (25.0-34.0); Mean Corpuscular Hgb Conc 32.9 g/dL (32.0-36.0); Mean Corpuscular Volume 82.6 fL (80.0-100.0); Mean Platelet Volume 9.2 fL (9.4-12.4); Monocytes # (auto) 0.09 K/uL (0.11-0.59); Monocytes % (auto) 5.4 %; Neutrophils # (auto) 1.28 K/uL (1.40-6.50); Neutrophils % (auto) 77.1 %; Platelet Count 343 K/uL (130-400); RDW Coefficient of Variation 15.9 % (11.5-14.5); RDW Standard Deviation 48.2 fL (36.4-46.3); Red Blood Count 2.76 M/uL (4.20-5.40); White Blood Count 1.66 K/ul (4.8-10.8)
[2024-07-04 06:54] LABS: Albumin Level 2.6 gm/dl (3.4-5.0); BUN Creatinine Ratio 26.2 (10-20); Bilirubin,Total 0.3 mg/dl (0.2-1.0); Calcium 9.6 mg/dl (8.6-10.3); Globulin 2.7 gm/dl (2.5-4.0); Magnesium 1.8 mg/dl (1.7-2.4); Potassium 3.3 mmol/L (3.5-5.1); Total Protein 5.3 gm/dl (6.0-8.3)
[2024-07-04] MEDS: POTASSIUM CHLORIDE CRTAB 20 MEQ TABCR PO STA (08:49)
[2024-07-04] MEDS: PANTOprazole 40 MG TAB PO SCH (08:50)
[2024-07-04] MEDS: CYANOCOBALAMIN (B-12) 500 MCG TABLET PO SCH (08:50)
[2024-07-04] MEDS: FENOFIBRATE NANOCRYSTALLIZED 145 MG TABLET PO SCH (08:50)
[2024-07-04] MEDS: FERROUS SULFATE 325 MG TAB PO SCH (08:50)
[2024-07-04] MEDS: DOCUSATE SODIUM/SENNA 50/8.6MG TAB PO SCH (08:54)
--- NOTE | 2024-07-04 11:27 | Hospitalist Progress Note ---
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 She also had autoimmune pancreatitis. Since she has been home she has really not been able to eat much of anything at all. Some persistent nausea and abdominal fullness and discomfort. Presents with multiple electrolyte abnormalities. Suspect much of her electrolyte abnormalities are due to poor oral intake of solute. Suspect patient may have mild ileus/gastroparesis from her ongoing autoimmune pancreatitis, trial of Reglan and advance diet Pleural effusion most likely inflammatory, very small, suspect not a candidate for any type of thoracentesis. Anticipate it improving as her inflammatory process continues to improve Consult nephrology for her ongoing electrolyte issues, had plan to follow with their office in outpatient setting GI consultation pending Consult dietitian, patient did not tolerate Ensure, believe she would benefit fr om some type of regular dietary supplementation such as boost breeze/boost clear or some sort of protein shake. Did not seem to tolerate the dairy based supplements Continue to monitor laboratory studies Discussed possible transfer to [place] with patient and family at bedside. At this time family and patient would like to continue with her care here unless there is truly some sort of intervention she requires that cannot be performed here or expertise that she requires urgently in the hospital. Updated mother and fianc at bedside 62 minutes spent on reviewing records, care at the bedside, communication with family, communication with care team Admission and Anticipated Discharge Date Admission Date: July 04, 2024 Subjective Patient continues to complain of abdominal fullness and nausea and poor appetite. This has been ongoing issue since her discharge from [facility] Physical Exam Physical Exam: Constitutional: Alert, nontoxic, underweight HEENT: Mucous membranes moist. Lungs: Clear to auscultation, decreased, no wheezes rales or rhonchi CV: S1-S2, regular Abdomen: Soft, minimal distention, minimal tenderness, no guarding or rigidity Extremities: No significant edema Neuro: No focal deficits, slow to speak, generalized weakness Psych: Cooperative, normal mood Results & Data Results & Data Vital Signs (Past 12 Hours) Vital Signs Temp Pulse Pulse Resp BP BP BP 07/04/24 11:11 36.5 C 93 H 14 100/62 07/04/24 07:49 99 H 07/04/24 07:33 37.1 C 97 H 14 100/57 L 07/04/24 02:45 36.9 C 103 H 16 105/51 L 07/04/24 00:37 96 H 07/04/24 00:37 36.5 C 16 109/68 07/03/24 23:30 108 H 32 H 122/75 Pulse Ox O2 Del Method 07/04/24 11:11 100 Room Air 07/04/24 07:49 07/04/24 07:33 98 Room Air 07/04/24 02:45 99 Room Air 07/04/24 00:37 07/04/24 00:37 97 Room Air 07/03/24 23:30 97 Diagnostic Findings Reviewed imaging, laboratory and diagnostic studies. Pertinent findings as below. Extensive review of outside EMR reviewed previous BMP, reviewed previous pancreatic studies. Reviewed specialist notes from outpatient including PCP and rheumatology. Reviewed records from hospitalization at [facility] WBCs 1.6 Hemoglobin 7.5 6 sodium 131 Potassium 3.3 Chloride 94 Calcium 9.6 TSH 3.4 PTH intact 1.0
--- NOTE | 2024-07-04 11:47 | Gastrointestinal Consultation ---
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 Gallstones Vs related to connective tissue disease, admitted with electrolytes imbalance, CT scan showed peripancreatic fluid collection however she is doing much better clinically and almost asymptomatic from Pancreas standpoint. I reviewed the scan the fluid collection is still not fully mature and its been only 3 weeks since her acute interstitial pancreatitis. Currently no signs of infected necrosis and the collection itself is not causing and external compression hence no indications for urgent drainage. Continue supportive care. Needs repeat CT scan in 3 weeks to assess the fluid collection again, if mature and increasing in size and symptomatic then we can arrange EUS guided drainage. Follow up with Rheumatology. Diet as tolerated. Recall GI if needed. 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 Her Lipase is around 800 and LFTs are normal. She feels rather fine, no abdominal pain today but often gets cramps through the day, feels hungry and appetite is better, tolerated diet and moving her bowel. Allergies Allergy/AdvReac Type Severity Reaction Status Date / Time adalimumab-atto Allergy Severe Chills and Verified 07/04/24 00:03 [From Narda(EMIL)] hot flashes sulfasalazine Allergy Severe Unknown Verified 07/04/24 00:03 Skin Reaction Home Medications Medication Instructions Recorded Confirmed Type fluoxetine 20 mg capsule 20 mg PO QAM 04/01/24 07/03/24 History ferrous sulfate 325 mg (65 mg 325 mg PO Q2D 05/20/24 07/03/24 History iron) tablet cyanocobalamin (vitamin B-12) 500 1,000 mcg (2 x 500 mcg) PO QAM #30 05/23/24 07/03/24 Rx mcg tablet tabs Dilaudid 1 tab PO Q4H PRN NEEDED 07/03/24 07/03/24 History Senokot-S 2 tab PO QAM 07/03/24 07/03/24 History fenofibrate 160 mg tablet 160 mg PO QAM 07/03/24 07/03/24 History hydrocortisone 2.5 % topical cream 1 applic topical DIRECTED 07/03/24 07/03/24 History levothyroxine 88 mcg tablet 88 mcg PO QAM 07/03/24 07/03/24 History omeprazole 20 mg capsule,delayed 20 mg PO QAM 07/03/24 07/03/24 History release Patient History Surgical History History of lymph node biopsy Family History Grandfather (Paternal) Myocardial infarction Father Myocardial infarction Family/Other Diabetes cousin Grandmother (Maternal) Pancreatoblastoma Social History Smoking Status: Never smoker Second Hand Exposure: No; Do You Dip or Chew Tobacco: No; Tobacco Cessation Education Requested by Patient: No Hx Alcohol Use: No Hx Substance Use: No Preferred Language: Brazilian Communication Ability: Effective Hand Mounter Required: No Beliefs That Will Affect Care: None Current Living Situation: Significant Other Current Living Situation Comment: one story home with Howard Other Information That Helps Us Care for You: No Feels Safe at Home: Yes Safety Concerns: Feels Safe At This Time Assistive Devices: Walker Assistive Devices Comment: needs help on how to properly use walker Review of Systems Review of Systems: Other Reviewed Results & Data Vital Signs (Past 12 Hours) Vital Signs Temp Pulse Pulse Resp BP BP Pulse Ox 07/04/24 11:11 36.5 C 93 H 14 100/62 100 07/04/24 07:49 99 H 07/04/24 07:33 37.1 C 97 H 14 100/57 L 98 07/04/24 02:45 36.9 C 103 H 16 105/51 L 99 07/04/24 00:37 96 H 07/04/24 00:37 36.5 C 16 109/68 97 O2 Del Method 07/04/24 11:11 Room Air 07/04/24 07:49 07/04/24 07:33 Room Air 07/04/24 02:45 Room Air 07/04/24 00:37 07/04/24 00:37 Room Air Laboratory Results Laboratory Results - last 24 hr 07/03/24 07/03/24 07/03/24 17:06 17:17 19:10 WBC 2.42 L RBC 3.55 L Hgb 9.3 L POC Hgb 9.5 L Hct 29.2 L POC Hct 28 L MCV 82.3 MCH 26.2 MCHC 31.8 L RDW Std Deviation 48.6 H RDW Coeff of Jackie 16.1 H Plt Count 425 H MPV 9.0 L Immature Gran % (Auto) 3.3 Neut % (Auto) 80.1 Lymph % (Auto) 11.6 Wright % (Auto) 5.0 Eos % (Auto) 0.0 Baso % (Auto) 0.0 Neut # (Auto) 1.94 Lymph # (Auto) 0.28 L Wright # (Auto) 0.12 Eos # (Auto) 0.00 Baso # (Auto) 0.00 Immature Gran # (Auto) 0.08 RBC Morphology Stomatocytes 2+ PT 11.9 INR 1.1 APTT 36 H PTT Ratio 1.3 POC Sodium 126 L Sodium 129 L POC Potassium 4.1 Potassium 4.1 POC Chloride 85 L Chloride 87 L Carbon Dioxide 35 H POC Total CO2 32 H Anion Gap 7 POC Anion Gap 14.0 L POC BUN 22 H BUN 22 Creatinine 0.87 POC Creatinine 1.1 Est Cr Clr Drug Dosing 68.5 eGFR 93.59 BUN/Creatinine Ratio 25.3 H Glucose 78 POC Glucose (other) 81 Osmolality 273 L Calcium 11.2 H POC Ioniz Calcium Jared 1.44 H Phosphorus 2.8 Magnesium 1.3 L Total Bilirubin 0.3 AST 67 H ALT 15 Alkaline Phosphatase 90 B-Natriuretic Peptide Total Protein 6.6 Albumin 3.0 L Globulin 3.6 Albumin/Globulin Ratio 0.8 L Lipase 869 H Procalcitonin 0.32 TSH 3.468 PTH Intact Urine Color Yellow Urine Appearance Cloudy A Urine pH 7.0 Ur Specific [place] 1.011 Urine Protein Trace H Urine Glucose (UA) Negative Urine Ketones Negative Urine Blood Negative Urine Nitrite Negative Urine Bilirubin Negative Urine Urobilinogen Negative Ur Leukocyte Esterase 1+ H Urine WBC (Auto) 6-10 H Urine RBC (Auto) 0-2 U Hyaline Cast (Auto) 6-10 H U Epithel Cells (Auto) 3-5 H Urine Bacteria (Auto) None Seen Amorphous Sediment Present A Urine Osmolality 297 L Ur Random Sodium 20 Adenovirus (PCR) Not Detected B. pertussis DNA (PCR) Not Detected B.parapertussis DNA PCR Not Detected C. pneumoniae DNA (PCR) Not Detected Coronavirus OC43 (PCR) Not Detected Coronavirus HKU1 (PCR) Not Detected Coronavirus 229E (PCR) Not Detected SARS-CoV-2 (PCR) Not Detected Coronavirus NL63 (PCR) Not Detected Human Metapneumovir PCR Not Detected Influenza Type A (PCR) Not Detected Influenza Type B (PCR) Not Detected M. pneumoniae (PCR) Not Detected Parainfluenza 1 (PCR) Not Detected Parainfluenza 2 (PCR) Not Detected Parainfluenza 3 (PCR) Not Detected Parainfluenza 4 (PCR) Not Detected RSV (PCR) Not Detected Entero/Rhino (PCR) Not Detected 07/04/24 07/04/24 00:49 06:00 WBC 1.66 L RBC 2.76 L Hgb 7.5 L POC Hgb Hct 22.8 L POC Hct MCV 82.6 MCH 27.2 MCHC 32.9 RDW Std Deviation 48.2 H RDW Coeff of Jackie 15.9 H Plt Count 343 MPV 9.2 L Immature Gran % (Auto) 1.8 Neut % (Auto) 77.1 Lymph % (Auto) 15.7 Wright % (Auto) 5.4 Eos % (Auto) 0.0 Baso % (Auto) 0.0 Neut # (Auto) 1.28 L Lymph # (Auto) 0.26 L Wright # (Auto) 0.09 L Eos # (Auto) 0.00 Baso # (Auto) 0.00 Immature Gran # (Auto) 0.03 RBC Morphology Unremarkable Stomatocytes PT INR APTT PTT Ratio POC Sodium Sodium 130 L 131 L POC Potassium Potassium 3.8 3.3 L POC Chloride Chloride 92 L 94 L Carbon Dioxide 33 H 31 POC Total CO2 Anion Gap 5 6 POC Anion Gap POC BUN BUN 20 17 Creatinine 0.74 0.65 POC Creatinine Est Cr Clr Drug Dosing 81.7 93.0 eGFR 113.65 123.68 BUN/Creatinine Ratio 27.0 H 26.2 H Glucose 75 77 POC Glucose (other) Osmolality Calcium 10.0 9.6 POC Ioniz Calcium Jared Phosphorus Magnesium 1.8 Total Bilirubin 0.3 AST 48 H ALT 9 Alkaline Phosphatase 65 B-Natriuretic Peptide 24 Total Protein 5.3 L Albumin 2.6 L Globulin 2.7 Albumin/Globulin Ratio 1.0 Lipase Procalcitonin TSH PTH Intact 1.0 L Urine Color Urine Appearance Urine pH Ur Specific [place] Urine Protein Urine Glucose (UA) Urine Ketones Urine Blood Urine Nitrite Urine Bilirubin Urine Urobilinogen Ur Leukocyte Esterase Urine WBC (Auto) Urine RBC (Auto) U Hyaline Cast (Auto) U Epithel Cells (Auto) Urine Bacteria (Auto) Amorphous Sediment Urine Osmolality Ur Random Sodium Adenovirus (PCR) B. pertussis DNA (PCR) B.parapertussis DNA PCR C. pneumoniae DNA (PCR) Coronavirus OC43 (PCR) Coronavirus HKU1 (PCR) Coronavirus 229E (PCR) SARS-CoV-2 (PCR) Coronavirus NL63 (PCR) Human Metapneumovir PCR Influenza Type A (PCR) Influenza Type B (PCR) M. pneumoniae (PCR) Parainfluenza 1 (PCR) Parainfluenza 2 (PCR) Parainfluenza 3 (PCR) Parainfluenza 4 (PCR) RSV (PCR) Entero/Rhino (PCR) (1) Pancreatitis Acute pancreatitis complication: unspecified Chronicity: acute Pancreatitis type: unspecified pancreatitis type Qualified Code(s): K85.90 - Acute pancreatitis without necrosis or infection, unspecified
[2024-07-04 11:49] LABS: RBC Morphology Unremarkable
[2024-07-04] MEDS: METOCLOPRAMIDE HCL 5 MG TABLET PO SCH (12:30)
--- NOTE | 2024-07-04 13:18 | Pulmonary Consultation ---
Date of Consultation July 04, 2024 Assessment & Plan (1) Pleural effusion, left: (2) Undifferentiated inflammatory polyarthritis: (3) Pancreatitis: Acute pancreatitis complication: unspecified Chronicity: acute Pancreatitis type: unspecified pancreatitis type Qualified Code(s): K85.90 - Acute pancreatitis without necrosis or infection, unspecified Plan The patient has a tiny left pleural effusion incidentally seen on chest CTA. This effusion is too small for sampling and the patient is asymptomatic at this time from a pulmonary perspective. Recommend a follow-up chest x-ray in 2 weeks to ensure stability or resolution. Suspect that the effusion is potentially related to serositis from autoimmune disease and/or a sympathetic effusion related to her pancreatitis. Patient has follow-up with rheumatology scheduled on Saturday to discuss other Biologics and/or immunosuppressive medications to treat her underlying rheumatological conditions. She will also have outpatient GI follow-up for her pancreatitis. Patient in agreement. Discussed with bedside nurse as well. No further pulmonary recommendations at this time. Please call with questions. Thank you for the consult. History of Present Illness Reason for Consultation: "Pleural effusion" Attending Physician: Drew Wills DO History of Present Illness 29-year-old female with a history of macrophage activation syndrome, adult onset stills disease, polyarthritis and autoimmune pancreatitis who presented to the hospital due to acute abdominal discomfort and nausea. She did not really have any respiratory complaints such as shortness of breath, pleurisy or cough. She apparently has had intermittent fevers. Admitting hospitalist documented that the patient had shortness of breath with exertion and that she had a chest CT with PE protocol ordered. She denies any shortness of breath with exertion to me. She does feel very fatigued chronically and has chronic pain related to her autoimmune condition. Chest CTA revealed a tiny left-sided pleural effusion with passive subsegmental atelectasis. No pulmonary embolism was identified. She is currently receiving IV fluids for pancreatitis. GI has evaluated the patient I did not feel that any acute interventions were necessary at this time nor were antibiotics needed. Supportive care was recommended. Additionally, outpatient follow-up CT scan in 3 weeks to reassess the fluid collection in the pancreas is noted and consideration of EUS guided drainage. Allergies Allergy/AdvReac Type Severity Reaction Status Date / Time adalimumab-atto Allergy Severe Chills and Verified 07/04/24 00:03 [From Amjevita(CF)] hot flashes sulfasalazine Allergy Severe Unknown Verified 07/04/24 00:03 Skin Reaction Home Medications Medication Instructions Recorded Confirmed Type fluoxetine 20 mg capsule 20 mg PO QAM 04/01/24 07/03/24 History ferrous sulfate 325 mg (65 mg 325 mg PO Q2D 05/20/24 07/03/24 History iron) tablet cyanocobalamin (vitamin B-12) 500 1,000 mcg (2 x 500 mcg) PO QAM #30 05/23/24 07/03/24 Rx mcg tablet tabs Dilaudid 1 tab PO Q4H PRN NEEDED 07/03/24 07/03/24 History Senokot-S 2 tab PO QAM 07/03/24 07/03/24 History fenofibrate 160 mg tablet 160 mg PO QAM 07/03/24 07/03/24 History hydrocortisone 2.5 % topical cream 1 applic topical DIRECTED 07/03/24 07/03/24 History levothyroxine 88 mcg tablet 88 mcg PO QAM 07/03/24 07/03/24 History omeprazole 20 mg capsule,delayed 20 mg PO QAM 07/03/24 07/03/24 History release Patient History Surgical History History of lymph node biopsy Family History Grandfather (Paternal) Myocardial infarction Father Myocardial infarction Family/Other Diabetes cousin Grandmother (Maternal) Pancreatoblastoma Social History Smoking Status: Never smoker Second Hand Exposure: No; Do You Dip or Chew Tobacco: No; Tobacco Cessation Education Requested by Patient: No Hx Alcohol Use: No Hx Substance Use: No Preferred Language: Swedish Communication Ability: Effective Manager Convention Required: No Beliefs That Will Affect Care: None Current Living Situation: Significant Other Current Living Situation Comment: one story home with Howard Other Information That Helps Us Care for You: No Feels Safe at Home: Yes Safety Concerns: Feels Safe At This Time Assistive Devices: Walker Assistive Devices Comment: needs help on how to properly use walker Review of Systems Review of Systems: All systems reviewed & are unremarkable except as noted in HPI & below Physical Exam Physical Exam: Constitutional: Patient appears to be of their stated age. Patient is thin and frail appearing. Eyes: Pupils are equal round and reactive to light. Conjunctivae are normal. Anicteric sclera. Ears nose, mouth and throat: No perioral cyanosis. Neck: Trachea is midline. Visual inspection is normal. Respiratory: Clear to auscultation bilaterally. No use of accessory muscles. No significant clubbing noted. Cardiovascular: Regular rate and rhythm. No murmurs. No edema. Gastrointestinal: Normal bowel sounds, soft, nontender and nondistended. No hepatosplenomegaly noted. Musculoskeletal: No cyanosis. Patient is able to move all extremities. Diffusely weak with sarcopenia present. Skin: No rashes, warm dry and intact. Neurologic: No obvious focal neurological deficits seen. She is very slow to respond to simple questions. Psychiatric: Alert and oriented x3 with a very flat affect. Results & Data Results & Data Vital Signs (Past 12 Hours) Vital Signs Temp Pulse Pulse Resp BP BP Pulse Ox 07/04/24 11:11 36.5 C 93 H 14 100/62 100 07/04/24 07:49 99 H 07/04/24 07:33 37.1 C 97 H 14 100/57 L 98 07/04/24 02:45 36.9 C 103 H 16 105/51 L 99 O2 Del Method 07/04/24 11:11 Room Air 07/04/24 07:49 07/04/24 07:33 Room Air 07/04/24 02:45 Room Air PG Care Time/CCT Total # of Minutes Spent Total Time Spent with Patient: Total time spent is greater than 50% in coordination of care (as documented) at patient's floor/unit and/or counseling patient: Coding Level of Care Code 23848 IN/OBS CONSULT LVL 3,45M Diagnoses Pleural effusion, left J90 Undifferentiated inflammatory polyarthritis M06.4 Pancreatitis K85.90 Acute pancreatitis complication: unspecified Chronicity: acute Pancreatitis type: unspecified pancreatitis type
[2024-07-04 14:38] VITALS: RESP 16
--- NOTE | 2024-07-04 16:41 | Nephrology Consultation ---
Date of Consultation July 04, 2024 Assessment & Plan (1) Electrolyte abnormality: suspect that hypercalcemia was from what proved to be excessive D, Ca supplementation in wake of last hospital stay. hypercalcemia can cause volume depletion and this patient w/ chronic abd pain would be prone to that anyway. -hypercalcemia resolved > Ca 9.6 today >marked and unexplained K drop since arrival despite therapy -mag, phos wnl; mag 1.8 today -mild hyponatremia at 131 w/ urine/serum studies and hx suggesting hypovolemic etiology ordered Repeat BMP w/ mag now > use results to evaluate if more supplements needed AM BMP and mag pls already appropriately ordered continue to hold Ca and D supplements may need more /gentle K supplementation and will have hospitalist ask physiotherapist's assistant to f/u on this Care coordinated w/ Dr Wills regarding lab checks medications, f/u plan; we are in agreement. History of Present Illness Reason for Consultation: multiple electrolyte abnormalities Requesting Physician: Dr Wills Attending Physician: Drew Wills, History of Present Illness 29 y/o F whom I'm asked to see for multiple electrolyte abnormalities was admitted last evening for L pleural effusion after presenting with a few days of worsening exertional dyspnea after ongoing illness in the wake of 06/02- [facility] [place] to evaluate for Still's disease. PMH seronegative polyarthritis, macrophage activation syndrome, gallstone pancreatitis for which OP eval for elective cholecystectomy planned, hypothyroidism (diagnosed 05/2024), chronic anemia (baseline hemoglobin 9-10), mood disorder, chronic headache. 05/20-05/23 [facility] admission for fever chills joint aches attributed to Amjevita drug reaction. Persistent illness following hospital discharge culminating in [facility] admission above. During that admission, dx'd w/ inflammatory polyarthritis/macrophage activation syndrome, treated w/ steroids. Hypocalcemia noted and primary hypothyroidism on blood work. Started on aggressive calcium / D supplementation. Also evaluated by nephrology for microhematuria and 1/2 gm proteinuria; for OP f/u w/ Dr Cardona to est care in late July. Patient discharged on calcitriol, calcium tablets, levothyroxine, and steroid taper medications. CT a/p 06/11 notable for interstitial pancreatitis, moderate ascites and BL pleural effusions, possible peritonitis. Pancreatitis f/u was for as above. Noted as OP to have new hypercalcemia (12.6 to 11.8) and hyponatremia (1 32 to 128) on OP bloodwork 06/30 and 07/03 and was directed to ER. Pulmonary evaluated L pleural effusion > too small for thoracentesis and w/ resolution of dypsnea; for 2 wk f/u CXR to ensure resolution; no PE on CTA chest. >>her presenting calcium was 11.2 > 9.6 today. Her PTH this admission is one. she had 1L NS plus another L of NS w/ 20 mEq/L K, ending today PM >>her presenting sodium was 129 > 131 today; serum osms 273. uOsms 297, sNa 20 >>Her potassium on presentation was 4.1 > 3.3 today. She had a L of K rich fluids as above for this plus 40 mEq PO >>her mag was 1.3 > 1.8 today. she had 2 gm IV mag yesterday and one today overall denies abdomainal pain currently; no sob, no n/v, no new/worrisome voiding sx, no f/c, no edema. endorses thirst and polyuria prior to admission improved some now. no joint /mm pain currently. feels appetite/intake improved some since arrival Allergies Allergy/AdvReac Type Severity Reaction Status Date / Time adalimumab-atto Allergy Severe Chills and Verified 07/04/24 00:03 [From Narda(EMIL)] hot flashes sulfasalazine Allergy Severe Unknown Verified 07/04/24 00:03 Skin Reaction Home Medications Medication Instructions Recorded Confirmed Type fluoxetine 20 mg capsule 20 mg PO QAM 04/01/24 07/03/24 History ferrous sulfate 325 mg (65 mg 325 mg PO Q2D 05/20/24 07/03/24 History iron) tablet cyanocobalamin (vitamin B-12) 500 1,000 mcg (2 x 500 mcg) PO QAM #30 05/23/24 07/03/24 Rx mcg tablet tabs Dilaudid 1 tab PO Q4H PRN NEEDED 07/03/24 07/03/24 History Senokot-S 2 tab PO QAM 07/03/24 07/03/24 History fenofibrate 160 mg tablet 160 mg PO QAM 07/03/24 07/03/24 History hydrocortisone 2.5 % topical cream 1 applic topical DIRECTED 07/03/24 07/03/24 History levothyroxine 88 mcg tablet 88 mcg PO QAM 07/03/24 07/03/24 History omeprazole 20 mg capsule,delayed 20 mg PO QAM 07/03/24 07/03/24 History release Patient History Surgical History History of lymph node biopsy Family History Grandfather (Paternal) Myocardial infarction Father Myocardial infarction Family/Other Diabetes cousin Grandmother (Maternal) Pancreatoblastoma Social History Smoking Status: Never smoker Second Hand Exposure: No; Do You Dip or Chew Tobacco: No; Tobacco Cessation Education Requested by Patient: No Hx Alcohol Use: No Hx Substance Use: No Preferred Language: Pakistani Communication Ability: Effective Pilot Required: No Beliefs That Will Affect Care: None Current Living Situation: Significant Other Current Living Situation Comment: one story home with Howard Other Information That Helps Us Care for You: No Feels Safe at Home: Yes Safety Concerns: Feels Safe At This Time Assistive Devices: Walker Assistive Devices Comment: needs help on how to properly use walker Review of Systems 2 Review of Systems: All systems reviewed & are unremarkable except as noted in HPI & below Physical Exam 2 Constitutional: well developed, + cachectic and cooperative; no acute distress Eyes: EOM intact bilaterally ENMT: Mouth: + dry oral mucous membranes Respiratory: normal respiratory effort (lying on L side in position on RA) Auscultation: + diminished lung sounds (BL bases) Cardiovascular: Rate/Rhythm: + tachycardic Extremities: no edema Gastrointestinal (Abdomen): Inspection/Auscultation: normal bowel sounds P ercussion/Palpation: abdomen soft; abdomen nontender Musculoskeletal: Extremities: strength 5/5 throughout Skin: no rashes, warm and dry skin very dry Neurologic: [place], fluent speech, no tremor Results & Data Vital Signs (Past 12 Hours) Vital Signs Temp Pulse Pulse Resp BP BP Pulse Ox 07/04/24 14:37 36.8 C 118 H 16 104/66 100 07/04/24 11:11 36.5 C 93 H 14 100/62 100 07/04/24 07:49 99 H 07/04/24 07:33 37.1 C 97 H 14 100/57 L 98 O2 Del Method 07/04/24 14:37 Room Air 07/04/24 11:11 Room Air 07/04/24 07:49 07/04/24 07:33 Room Air Laboratory Results 07/04/24 06:00 07/04/24 06:00 Diagnostic Findings as above; images CTA personally reviewed by me; agree w/ report
[2024-07-04 18:59] LABS: Calcium 9.1 mg/dl (8.6-10.3); Creatinine Clr Calc Pharmacy 102.4 ml/min; Potassium 3.9 mmol/L (3.5-5.1)
[2024-07-05 00:23] VITALS: TEMP 98.2
--- OUTSIDE RECORDS SUMMARY | 2024-07-05 06:39 | External Medical Summary ---
Author Name Unknown Address Unknown Organization K09:[facility] [address] [place] [address] Laboratory Report Ordering Provider Test Date Status MARIELA PANTOJA 07/03/2024 12:44:27 Final Observation Date Value Abnormality Reference (Units ) Status BUN 07/03/2024 12:44:27 22 Above high normal 6-20 (mg/dL) Final Creatinine 07/03/2024 12:44:27 1.0 0.5-1.0 (mg/dL) Final Glomerular filtration rate/1.73 sq M.predicted [Volume Rate/Area] in Serum, Plasma or Blood by Creatinine-based formula (CKD-EPI) 07/03/2024 12:44:27 82 >=60 (mL/min) Final eGFR is calculated based on the CKD-EPI 2020 equation. Sodium 07/03/2024 12:44:27 128 Below low normal 135 -146 (mmol/L) Final Potassium 07/03/2024 12:44:27 4.2 3.5-5.1 (m mol/L) Final Cl 07/03/2024 12:44:27 86 Below low normal 98- 107 (mmol/L) Final CO2 07/03/2024 12:44:27 32 22-32 (mmo l/L) Final Anion gap 07/03/2024 12:44:27 10 7-15 (mmol /L) Final Glucose 07/03/2024 12:44:27 84 70-120 (mg /dL) Final Albumin 07/03/2024 12:44:27 3.1 Below low normal 3.8 -5.0 (g/dL) Final AST (Aspartate aminotransferase) 07/03/2024 12:44:27 96 Above high normal 10-35 (U/L) Final Alk Phos 07/03/2024 12:44:27 108 35-130 (U/ L) Final Bilirubin, Total 07/03/2024 12:44:27 0.2 <=1 .2 (mg/dL) Final Calcium 07/03/2024 12:44:27 11.8 Above high normal 8. 4-10.2 (mg/dL) Final Protein 07/03/2024 12:44:27 6.5 6.0-8.3 (g /dL) Final ALT (Alanine aminotransferase) 07/03/2024 12:44:27 18 10-35 (U/L) Colin terry Performing Location [facility] [address] [place] [address]
--- OUTSIDE RECORDS SUMMARY | 2024-07-05 06:39 | External Medical Summary | Summary of Care ---
Author Name Unknown Organization [facility] Address [address] [facility] [place] [address] Phone [phone] Care Team Providers Care Montessori Toddler Teacher Name Role Phone Payal Myers MD Primary Care Provider [phone] Reason for Visit * Reason Comments Outpatient Testing Encounter Details Date Type Department Care Team (Late st Contact Info) Description 07/03/2024 12:50 PM EST Laboratory Laboratory [facility] [place] [address] [place] [address] [facility] [place] [address] Hypercalcemia Allergies Active Allergy Reactions Criticality Noted Date Comments Adalimumab High 05/20/2024 Other Reaction(s): Chills and hot flashes Sulfasalazine Rash Medium 10/23/2023 documented as of this encounter (statuses as of 07/03/2024) Medications 08/10 1-20 MG-MCG per tablet 1 Tablet in the morning. 7 Active FLUoxetine HCl 20 MG Oral Capsule (PROzac)Indicat ions:LUDA (generalized anxiety disorder) Take 1 Capsule by mouth in the morning. 90 Capsule 3 4 Active Ferrous Sulfate 325 (65 Fe) MG Oral Tablet Delayed Release Take 1 Tablet by mouth. Every other day. Active B-12 500 MCG Oral Tablet Take 2 Tablets by mouth in the morning. 4 Active Levothyroxine Sodium 88 MCG Oral Tablet (Levoxyl) Take 1 Tablet by mouth daily first thing in the morning. (at least 30 min prior to breakfast or other meds) 30 Tablet 06/13/2024 2:46 PM EST Active Omeprazole 20 MG Oral Capsule Delayed Release (PriLOSEC) Take 1 Capsule by mouth in the morning. 30 Capsule 06/13/2024 2:46 PM EST Active Sennosides 8.6 MG Oral Tablet Take 1 Tablet by mouth in the morning. 30 Tablet 06/13/2024 2:46 PM EST Active Fenofibrate 160 MG Oral Tablet (Lofibra) Take 1 Tablet by mouth in the morning. 30 Tablet 06/13/2024 2:46 PM EST Active HYDROmorphone HCl 2 MG Oral Tablet (Dilaudid) Take 1 Tablet by mouth every 4 hours as needed for moderate pain 30 Tablet 06/13/2024 2:46 PM EST Active Hydrocortisone 2.5 % External Cream Apply to chest and face twice daily for 2 weeks. 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 Anemia of chronic disease 06/02/2024 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 Iron deficiency 02/28/2024 LUDA (generalized anxiety disorder) 10/09/2023 Seronegative inflammatory arthritis 10/09/2023 documented as of this encounter (statuses as of 07/03/2024) Resolved Problems Problem Noted Date Diagnosed Date Resolved Date Ileus 06/08/2024 06/13/2024 Chest pain, non-cardiac 06/04/202405/23 Idiopathic acute pancreatitis 06/04/2024 06/13/2024 Gallstone pancreatitis 06/02/202406/13 documented as of this encounter (statuses as of 07/03/2024) Immunizations Name Administration Dates Next Due COVID-19 [...] Tobacco: Never Alcohol Use Standard Drinks/Week Comments Not Currently 0 (1 standard drink = 0.6 oz pur e alcohol) occasionaly PHQ-2 Answer Date Recorded PHQ Adult Total Score 21 07/01/2024 Hunger Vital Sign Answer Date Recorded Within the past 12 months, y ou worried that your food would run out before you got the money to buy more. Never true 07/01/20 24 Within the past 12 months, t he food you bought just didn't last and you didn't have money to get more. Never true 07/01/2024 Childcare Answer Date Recorded Do you feel overwhelmed with taking care of a child, family member or friend? No 07/01/2024 Does your family need help f inding childcare? (Household - for ages 0-17 years) Not on file 07/01/2024 Clothing Answer Date Recorded Have you been unable to get clothing when it was really needed? No 07/01/2024 Is your family able to get c lothes or diapers when needed? (Household - for ages 0-17 years) Not on file 07/01/2024 Personal Safety Answer Date Recorded Do you feel unsafe or have concerns for your saf ety? No 07/01/2024 Do you have concerns for you r family's safety? (Household - for ages 0-17 years) Not on file 07/01/2024 Utilities Answer Date Recorded Do you have trouble paying y our heating, water, or electric bill? No 07/01/2024 Is your family able to pay t he heat, water, or electric bill? (Household - for ages 0-17 years) Not on file 07/01/2024 Does your family have access to good internet? (Household - for ages 0-17 years) Not on file 07/01/2024 Employment Status Answer Date Recorded Are you unemployed or without regular income? No 07/01/2024 Does the household have a re gular source of income? (Household - for ages 0-17 years) Not on file 07/01/2024 Social Connections Answer Date Recorded How often do you feel lonely or isolated from those around you? Sometimes 07/01/2024 Financial Resource Strain Answer Date R ecorded Do you have any trouble payi ng for your medications, or do you think you might in the future? No 07/01/2024 Does your family have troubl e paying for medicine? (Household - for ages 0-17 years) Not on file 07/01/2024 Transportation Needs Answer Date Record ed Do you have trouble getting a ride to medical visits or work? (Adult - for ages 18 years and over) Not on file 07/01/2024 Does your family have a hard time getting a ride to doctors visits? (Household - for ages 0-17 years) Not on file 07/01/2024 Has lack of transportation k ept you from medical appointments, meetings, work, or from getting things needed for daily living? Check all that apply. No 07/01/2024 Do you (or your family) have trouble finding or paying for a ride (transportation)? (Household - for ages 0-17 years) Not on file 07/01/2024 Housing Stability Answer Date Recorded Do you currently live in a s helter or have no steady place to sleep at night? No 07/01/2024 Do you think you are at risk of becoming homeless? (Adult - for ages 18 years and over) Not on file 07/01/2024 Does your family worry about paying for your home or becoming homeless? (Household - for ages 0-17 years) Not on file 1 09/01/2023 Are you homeless or worried that you might be in the future? No 07/01/2024 Are you (or your family) nnamdi eless or worried that you might be in the future? (Household - for ages 0-17 years) Not on file Food Insecurity Answer Date Recorded Do you need food for this week? No 07/01/2024 Are you able to get enough f ood for your family? (Household - for ages 0-17 years) Not on file 07/01/2024 Does your family need food t his week? (Household - for ages 0-17 years) Not on file 07/01/2024 Do you always have enough fo od for your family? (Household - for ages 0-17 years) Not on file 07/01/2024 Comments No Sex and Gender Information Value Date Recorded Sex Assigned at Female 08/03/2019 10:35 AM EST Legal Sex Female 2:47 PM EDT Gender Identity Female 08/03/2019 10:35 AM EST Sexual Orientation Straight 08/03/2019 10 :35 AM EST documented as of this encounter Functional Status * Are you deaf or do you have serious difficulty hearing? Answer Date of Assessment Author No 06/02/2024 7:41 PM Elaine Hatch RN * Are you blind or do you have serious difficulty seeing, even when wearing glasses? Answer Date of Assessment Author No 06/02/2024 7:41 PM Elaine Hatch RN * Do you have serious difficulty walking or climbing stairs? (5 years old or older) Answer Date of Assessment Author No 06/02/2024 7:41 PM Elaine Hatch RN * Do you have difficulty dressing or bathing? (5 years old or older) Answer Date of Assessment Author No 06/02/2024 7:41 PM Elaine Hatch RN * Because of a physical, mental, or emotional condition, do you have difficulty doing errands alone such as visiting a doctors office or shopping? (15 years old or older) Answer Date of Assessment Author No 06/02/2024 7:41 PM Elaine Hatch RN documented as of this encounter Mental Status * Because of a physical, mental, or emotional condition, do you have serious difficulty concentrating, remembering, or making decisions? (5 years old or older) Answer Entry Date Author No 06/02/2024 7:41 PM Elaine Hatch RN documented in this encounter Plan of Treatment Upcoming Encounters Date Type Department Care Team (Late st Contact Info) Description 07/10/2024 9:00 AM EST Telemedicine Rheumat[address] [address] Agc5, Pharmacist Rheumatology [address] [place] [id number] 07/10/2024 12:40 PM EST Office Visit Family Practice [facility] [place] [address] [place] [address] Payal Myers MD [address] [place] [address] 07/30/2024 2:30 PM EST Office Visit Rheumatology [place] [id number] [facility] [place] [address] Michelle Goodwin CRNP [address] [place], [place] [address] 08/19/2024 9:00 AM EST Office Visit Nephrology, [facility] 200 [facility] [place], [place] [address] Ant Cardona MD 200 [facility] [address] 08/31/2024 8:20 AM EST Office Visit Family Practice [facility] [address] [facility] [place] [address] Payal Myers MD [address] [facility] [place] [address] 11/09/2024 3:20 PM EDT Office Visit Rheumatology [place] [id number] [facility] [place], [place] [address] Neal Vang MD [address] [place], [place] [address] Pending Results Name Type Priority Associated Diagnoses Date /Time COMPREHENSIVE METABOLIC PANEL Lab Routine Hypercalcemia 07/03/2024 12:44 PM EST Health Maintenance Due Date Last Done Comments COVID-19 Vaccine ( season) 2024 12/04/2020, 11/06/2020 TSH 06/01/2025 06/01/2024 Pap Smear 06/25/2025 06/25/2022, 02/11/2019 Depression Monitoring 07/01/2025 07/01/2024, 024 DTap/Tdap Vaccines (8 - Td or Tdap) [...] as of this encounter Visit Diagnoses Diagnosis Hypercalcemia documented in this encounter Advance Directives * Full Code (Latest Code Status on File) Date Activated Date Inactivated Comments 06/06/2024 9:25 PM 06/13/2024 7:28 PM This order reflects the patients wishes and were consensually agreed upon. Question Answer Comments Discussion of Advance Directives occurred with: Patient * Full Code Date Activated Date Inactivated Comments 06/02/2024 8:01 PM 06/06/2024 9:25 PM This order reflects the patients wishes and were consensually agreed upon. Question Answer Comments Discussion of Advance Directives occurred with: Patient Healthcare Agents on File Name Relationship Healthcare Agent Relationshi p Communication Howard Barrientos Significant Other Health Care Re presentative (appointed verbally by patient or by statute hierarchy) Care Teams Montessori Toddler Teacher Relationship Specialty Start Date End Date Payal Myers MD [address] [facility] [place] [address] PCP - General Family Medicine 01/21/24 documented as of this encounter
--- OUTSIDE RECORDS SUMMARY | 2024-07-05 06:39 | External Medical Summary | Summary of Care ---
Author Name Unknown Organization [facility] Address [address] [place] [address] Phone [phone] Care Team Providers Care Pipe Coverer Name Role Phone Payal Myers MD Primary Care Provider [phone] Reason for Visit * Reason Comments Hospital Follow-Up Encounter Details Date Type Department Care Team (Latest Contact Info) Description 06/16/2024 3:20 PM EST [facility] [place] [facility] [place] [address] Payal Myers MD 200 [place] [address] Hospital discharge follow-up*; Undifferentiated inflammatory polyarthritis (HCC); Still's disease (HCC); Gallstone pancreatitis; Anemia of chronic disease; Hypocalcemia; Isolated proteinuria without specific morphologic lesion; Wound drainage Allergies Active Allergy Reactions Criticality Noted Date Comments Adalimumab High 05/20/2024 Other Reaction(s): Chills and hot flashes Sulfasalazine Rash Medium 10/23/2023 documented as of this encounter (statuses as of 07/02/2024) Medications 08/10 1-20 MG-MCG per tablet 1 Tablet in the morning. 11/17/19 17 Active FLUoxetine HCl 20 MG Oral Capsule (PROzac)Indica tions:LUDA (generalized anxiety disorder) Take 1 Capsule by mouth in the morning. 90 Capsule 3 01/16/20 24 Active Ferrous Sulfate 325 (65 Fe) MG Oral Tablet Delayed Release Take 1 Tablet by mouth. Every other day. Active B-12 500 MCG Oral Tablet Take 2 Tablets by mouth in the morning. 05/23/20 Active Levothyroxine Sodium 88 MCG Oral Tablet (Levoxyl) Take 1 Tablet by mouth daily first thing in the morning. (at least 30 min prior to breakfast or other meds) 30 Tablet 4 2:46 PM EST 06/14/20 Active Omeprazole 20 MG Oral Capsule Delayed Release (PriLOSEC) Take 1 Capsule by mouth in the morning. 30 Capsule 4 2:46 PM EST 06/13/20 Active Sennosides 8.6 MG Oral Tablet Take 1 Tablet by mouth in the morning. 30 Tablet 4 2:46 PM EST 06/14/20 Active Fenofibrate 160 MG Oral Tablet (Lofibra) Take 1 Tablet by mouth in the morning. 30 Tablet 4 2:46 PM EST 06/14/20 Active HYDROmorphone HCl 2 MG Oral Tablet (Dilaudid) Take 1 Tablet by mouth every 4 hours as needed for moderate pain 30 Tablet 4 2:46 PM EST 06/13/20 Active Hydrocortisone 2.5 % External Cream Apply to chest and face twice daily for 2 weeks. 20 g 4 2:46 PM EST 06/13/20 Active Naratriptan HCl 2.5 MG Oral Tablet (Amerge) Take 1 Tablet by mouth as needed for Migraine (take 1 tab by mouth at start of headache, may repeat once after 4 hours; may use up to 2 days a week). 10 Tablet 2 05/18/20 24 024 Discontinued(Pedro Pablo feng preference/disc ontinuation) predniSONE 20 MG Oral Tablet (Deltasone) Take 2 Tablets by mouth daily for 1 day, THEN 1.5 Tablets daily for 5 days, THEN 1 Tablet daily for 5 days, THEN 0.5 Tablets daily for 5 days. 17 Tablet 4 2:46 PM EST 06/14/20 24 024 Ergocalciferol 1.25 MG (89741 UT) Oral Capsule (Vitamin D2(Drisdol)) Take 1 Capsule by mouth once a week. 12 Capsule 4 2:46 PM EST 06/18/20 024 Discontinued Calcitriol 0.5 MCG Oral Capsule (Rocaltrol) Take 1 capsule in the morning and 2 capsules at night. Do not start before June 14, 2024. 60 Capsule 4 2:46 PM EST 06/14/20 24 024 Discontinued Calcium Citrate 333 MG Oral Tablet Take 2 Tablets by mouth in the morning and 2 Tablets at noon and 2 Tablets in the evening. 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 Anemia of chronic disease 06/02/2024 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 Iron deficiency 02/28/2024 LUDA (generalized anxiety disorder) 10/09/2023 Seronegative inflammatory arthritis 10/09/2023 documented as of this encounter (statuses as of 07/02/2024) Resolved Problems Problem Noted Date Diagnosed Date Resolved Date Ileus 06/08/2024 06/13/2024 Chest pain, non-cardiac 06/04/202405/23 Idiopathic acute pancreatitis 06/04/2024 06/13/2024 Gallstone pancreatitis 06/02/202406/13 documented as of this encounter (statuses as of 07/02/2024) Immunizations Name Administration Dates Next Due COVID-19 [...] 07/01/2024 Does the household have a re lar [...] AM EST documented as of this encounter Last Filed Vital Signs Vital Sign Reading Time Taken Comments Blood Pressure 102/74 06/16/2024 3:07 PM EST Pulse 105 06/16/2024 3:07 PM EST Temperature 36.7 C (98.1 F) 06/16/2024 3:07 PM ES T Respiratory Rate 16 06/16/2024 3:07 PM EST Oxygen Saturation 97% 06/16/2024 3:07 PM EST Inhaled Oxygen Concentration - - Weight - - Height - - Body Mass Index - - documented in this encounter Functional Status * Are you deaf or do you have serious difficulty hearing? Answer Date of Assessment Author No 06/02/2024 7:41 PM EST Elaine Baldwin RN * Are you blind or do [...] Elaine Hatch RN documented in this encounter Progress Notes * Payal Myers MD - 06/16/2024 3:03 PM EST Subjective Chief Complaint Patient presents with Hospital Follow-Up HPI: Bhavin Wilson is a 29 year old female. The following issues were addressed today: Date of admission: 06/02/24 Date of discharge: 06/13/24 Hospital course: Patient was admitted to the hospital as a direct admission for rheumatology and hematology consults and further work up of her inflammatory polyarthritis. 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 She was followed very closely by the rheumatology team and was continued on oral steroids. She additionally she received a dose of Canakinumab with premedication to avoid a reaction and tolerated this well. While admitted, her hospital course was complicated by pancreatitis (which was felt to possibly be related to gallstone pancreatitis versus a serositis manifestation in the setting of DILE) and ileus. At time of discharge, she still had some abdominal fullness and discomfort but ultimately was tolerating a diet and felt her abdominal discomfort was much improved. She additionally was passing stools. A repeat CT was obtained which did show signs of pancreatitis but showed improved ileus. This was discussed with GI who felt that the imaging may read as "pancreatitis" for up to 4-6 weeks. She continued to have some mild low grade fevers while admitted and infectious workup was ultimately negative. It was felt that this was likely due to her underlying rheumatological condition. She was ultimately deemed stable for discharge with very close follow up with her PCP and maintenance engineer. She was given a surgery referral on discharge for evaluation for possible cholecystectomy. Tests/studies pending at time of discharge: None Home/outpatient services ordered: PT/OT Course since hospitalization: Patient presents today with her mom. Has still been having a lot of trouble since discharge. Very weak, difficult to walk and get around. Diffuse pain in joints makes it difficult to ambulate and rise out of a sitting position. She notes some clear drainage from the site of her bone marrow biopsy although the volume of drainage has been decreasing. Having a lot of swelling in her legs and her abdomen feels tense and bloated. She is having some trouble with constipation. Needs to set up appointment with rheumatology. Is still on prednisone taper. Taking other discharge medications as prescribed. Stop Topamax and OCPs at direction of hospitalist. Review of Systems: See HPI Objective BP 102/74 | Pulse 105 | Temp 98.1 F (36.7 C) (Tympanic) | Resp 16 | SpO2 97% Wt Readings from Last 3 Encounters: 06/22/24 106 lb (48.1 kg) 06/22/24 106 lb 4 oz (48.2 kg) 06/13/24 127 lb 9.6 oz (57.9 kg) BP Readings from Last 3 Encounters: 06/22/24 100/70 06/16/24 102/74 06/13/24 108/71 General: No acute distress, appears malnourished and fatigued Head: Normocephalic and atraumatic Cardiovascular: Regular rate and rhythm, no murmur Respiratory: Good respiratory effort, breath sounds equal and clear to auscultation bilaterally Abdomen: Distended, mild diffuse tenderness Extremities: Bilateral 2+ pitting edema from feet to thighs Skin: Warm and dry, scant clear drainage on right lower back/hip at biopsy site Neurological: Alert and oriented, no focal deficits noted Psychiatric: Appropriate mood and affect Assessment & Plan 1. Hospital discharge follow-up - DISCH MED RECON CUR MED LIS 2. Undifferentiated inflammatory polyarthritis (HCC) 3. Still's disease (HCC) Continue prednisone as prescribed. Continue Dilaudid 2mg every 4 hours as needed for pain. Call to schedule follow-up with rheumatology. 4. Gallstone pancreatitis Resolved. Will revisit consult with surgery to discuss cholecystectomy once feeling better and acute illness improved. 5. Anemia of chronic disease Stable. 6. Hypocalcemia Continue calcitriol 1 tablet in the morning and 2 tablets at night, and calcium citrate 2 tablets in the morning, 2 tablets at noon and 2 tablets at night. Will check weekly CMP. 7. Isolated proteinuria without specific morphologic lesion Follow-up with nephrology on 08/19/23 as scheduled. 8. Wound drainage Suspect this is related to interstitial fluid/retained abdominal fluid but will culture. - CULTURE, WOUND, SUPERFICIAL, AEROBIC; Future Follow Up: Return for follow-up as scheduled or sooner as needed. This note was electronically signed by Payal Myers MD documented in this encounter Nursing Notes * Cynthia Bay LPN - 06/16/2024 3:04 PM EST Bhavin Wilson presents for hospital follow up. Medications & HM reviewed. states incision from biopsy on her back is leaving Legs are so swollen she can't walk. documented in this encounter Plan of Treatment Upcoming Encounters Date Type Department Care Team (Late st Contact Info) Description 07/10/2024 9:00 AM EST Telemedicine Rheumatology, [place] [address] [place] [address] Agc5, Pharmacist Rheumatology [facility] [place] [address] 07/10/2024 12:40 PM EST Office Visit Family Practice [facility] [place] [address] [place] [address] Payal Myers MD 200 [place] [address] 07/30/2024 2:30 PM EST Office Visit Rheumatology [address] [place], [place] [address] Michelle Goodwin CRNP [address] [place] [address], [place] [address] 08/19/2024 9:00 AM EST [facility] 200 [facility] [place], [place] [address] Ant Cardona MD 200 [facility], [place] [address] 08/31/2024 8:20 AM EST Office Visit Family Practice [facility] 200 [facility] [place], [place] [address] Payal Myers MD 200 [facility], [place] [address] 11/09/2024 3:20 PM EDT Office Visit Rheumatology [address], [place] [address] Neal Vang MD [address] [place] [address], [place] [address] Health Maintenance Due Date Last Done Comments [...] Not on filedocumented as of this encounter Procedures Procedure Name Priority Date/Time Associated Diagnosis Comments CULTURE, WOUND, SUPERFICIAL, AEROBIC Routine 06/16/2024 4:51 PM EST Wound drainage documented in this encounter Results * CULTURE, WOUND, SUPERFICIAL, AEROBIC (06/16/2024 4:51 PM EST) Culture Growth No growth 06/18/2024 9:02 AM EST [facility] Swab Structure of right lumbar region of back / Unknown 06/16/2024 4:51 PM EST 06/16/2024 5:06 PM EST Payal Myers MD LAB MICRO - GENERAL ORDERABLES Final Result [facility] [address] [place], [place] [id number] documented in this encounter Visit Diagnoses Diagnosis Hospital discharge follow-up- Primary Other follow-up examination Undifferentiated inflammatory polyarthritis (HCC) Unspecified inflammatory polyarthropathy 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, chronic or unspecified Gallstone pancreatitis Acute pancreatitis Anemia of chronic disease Anemia of other chronic disease Hypocalcemia Isolated proteinuria without specific morphologic lesion Wound drainage Open wound(s) (multiple) of unspecified site(s), without mention of complication documented in this encounter Advance Directives * Full Code (Latest Code Status on File) Date Activated Date Inactivated Comments 06/06/2024 9:25 PM 06/13/2024 7:28 PM This orde r reflects the patients wishes and were consensually [...] Relationship Healthcare Agent Relationshi p Communication Howard Floyd Significant Other Health Care Re presentative (appointed verbally by patient or by statute hierarchy) Care Teams Pipe Coverer Relationship Specialty Start Date End Date Payal Myers MD [address] [facility] [address] PCP - General Family Medicine 01/21/24 documented as of this encounter
--- OUTSIDE RECORDS SUMMARY | 2024-07-05 06:40 | External Medical Summary | Summary of Care ---
Author Name Unknown Organization [facility] Address [address] [place] [address] Phone [phone] Care Team Providers Care Painter Maintenance Name Role Phone Payal Myers MD Primary Care Provider [phone] Reason for Visit * Reason Comments Follow Up Encounter Details Date Type Department Care Team (Latest Contact Info) Description 06/22/2024 9:00 AM EST Office Visit Family Practice [facility] [address] [place] [address] [facility] [place] [place] [address] Payal Myers MD 200 [facility] [place] [address] Undifferentiated inflammatory polyarthritis (HCC)*; Still's disease (HCC); MAS (macrophage activation syndrome) (HCC); Migraine without aura and without status migrainosus, not intractable; History of pancreatitis; Counseling for control, oral contraceptives Allergies Active Allergy Reactions Criticality Noted Date Comments Sulfasalazine Rash Medium 10/23/2023 documented as of this encounter (statuses as of 06/22/2024) Medications 08/10 1-20 MG-MCG per tablet 1 [...] 2 Tablets by mouth in the morning. Active predniSONE 20 MG Oral Tablet (Deltasone) Take 2 Tablets by mouth daily for 1 day, THEN 1.5 Tablets daily for 5 days, THEN 1 Tablet daily for 5 days, THEN 0.5 Tablets daily for 5 days. 17 Tablet 06/13/2024 2:46 PM EST 4 06/30/20 Active Ergocalciferol 1.25 MG (65938 UT) Oral Capsule (Vitamin D2(Drisdol)) Take 1 Capsule by mouth once a week. 12 Capsule 06/13/2024 2:46 PM EST Active Levothyroxine Sodium 88 MCG Oral Tablet (Levoxyl) Take 1 Tablet by mouth daily first thing in the morning. (at least 30 min prior to breakfast or other meds) 30 Tablet 06/13/2024 2:46 PM EST 4 Active Omeprazole 20 MG Oral Capsule Delayed Release (PriLOSEC) Take 1 Capsule by mouth in the morning. 30 Capsule 06/13/2024 2:46 PM EST 4 Active Sennosides 8.6 MG Oral Tablet Take 1 Tablet by mouth in the morning. 30 Tablet 06/13/2024 2:46 PM EST 4 Active Calcitriol 0.5 MCG Oral Capsule (Rocaltrol) Take 1 capsule in the morning and 2 capsules at night. Do not start before June 14, 2024. 60 Capsule 06/13/2024 2:46 PM EST 4 Active Fenofibrate 160 MG Oral Tablet (Lofibra) Take 1 Tablet by mouth in the morning. 30 Tablet 06/13/2024 2:46 PM EST 4 Active HYDROmorphone HCl 2 MG Oral Tablet (Dilaudid) Take 1 Tablet by mouth every 4 hours as needed for moderate pain 30 Tablet 06/13/2024 2:46 PM EST 4 Active Hydrocortisone 2.5 % External Cream Apply to chest and face twice daily for 2 weeks. 20 g 06/13/2024 2:46 PM EST 4 Active Calcium Citrate 333 MG Oral Tablet Take 2 Tablets by mouth in the morning and 2 Tablets at noon and 2 Tablets in the evening. 120 Tablet 4 Active Additional Information Patient taking differently:2 Tablet Oral TID 06;12;18,400, Reported on 06/22/2024 Naratriptan HCl 2.5 MG Oral Tablet (Amerge) Take 1 Tablet by mouth as needed for Migraine (take 1 tab by mouth at start of headache, may repeat once after 4 hours; may use up to 2 days a week). 10 Tablet 2 4 06/22/20 24 Discontin ued(Patie nt preferenc e/discont inuation) documented as of this encounter (statuses as of 06/22/2024) Active Problems Problem Noted Date Diagnosed Date Hypocalcemia 06/07/2024 Isolated proteinuria without specific morphologi c lesion 06/05/2024 Rash and nonspecific skin eruption 06/04/2024 MAS (macrophage activation syndrome) 06/03/2024 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 Anemia of chronic disease 06/02/2024 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 Iron deficiency 02/28/2024 LUDA (generalized anxiety disorder) 10/09/2023 Seronegative inflammatory arthritis 10/09/2023 documented as of this encounter (statuses as of 06/22/2024) Resolved Problems Problem Noted Date Diagnosed Date Resolved Date Ileus 06/08/2024 06/13/2024 Chest pain, non-cardiac 06/04/202405/23 Idiopathic acute pancreatitis 06/04/2024 06/13/2024 Gallstone pancreatitis 06/02/202406/13 documented as of this encounter (statuses as of 06/22/2024) Immunizations Name Administration Dates Next Due COVID-19 [...] Answer Date Recorded PHQ Adult Total Score 14 06/15/2024 Hunger Vital Sign Answer Date Recorded Within the past 12 months, y ou worried that your food would run out before you got the money to buy more. Never true 06/15/20 24 Within the past 12 months, t he food you bought just didn't last and you didn't have money to get more. Never true 06/15/2024 Childcare Answer Date Recorded Do you feel overwhelmed with taking care of a child, family member or friend? No 06/15/2024 Does your family need help f inding childcare? (Household - for ages 0-17 years) Not on file 06/15/2024 Clothing Answer Date Recorded Have you been unable to get clothing when it was really needed? No 06/15/2024 Is your family able to get c lothes or diapers when needed? (Household - for ages 0-17 years) Not on file 06/15/2024 Personal Safety Answer Date Recorded Do you feel unsafe or have concerns for your saf ety? No 06/15/2024 Do you have concerns for you r family's safety? (Household - for ages 0-17 years) Not on file 06/15/2024 Utilities Answer Date Recorded Do you have trouble paying y our heating, water, or electric bill? No 06/15/2024 Is your family able to pay t he heat, water, or electric bill? (Household - for ages 0-17 years) Not on file 06/15/2024 Does your family have access to good internet? (Household - for ages 0-17 years) Not on file 06/15/2024 Employment Status Answer Date Recorded Are you unemployed or without regular income? No 06/15/2024 Does the household have a [facility] source of income? (Household - for ages 0-17 years) Not on file 06/15/2024 Social Connections Answer Date Recorded How often do you feel lonely or isolated from th ose around you? Never 06/15/2024 Financial Resource Strain Answer Date R ecorded Do you have any trouble payi ng for your medications, or do you think you might in the future? No 06/15/2024 Does your family have troubl e paying for medicine? (Household - for ages 0-17 years) Not on file 06/15/2024 Transportation Needs Answer Date Record ed Do you have trouble getting a ride to medical visits or work? (Adult - for ages 18 years and over) Not on file 06/15/2024 Does your family have a hard time getting a ride to doctors visits? (Household - for ages 0-17 years) Not on file 06/15/2024 Has lack of transportation k ept you from medical appointments, meetings, work, or from getting things needed for daily living? Check all that apply. No 06/15/2024 Do you (or your family) have trouble finding or paying for a ride (transportation)? (Household - for ages 0-17 years) Not on file 06/15/2024 Housing Stability Answer Date Recorded Do you currently live in a s helter or have no steady place to sleep at night? No 06/15/2024 Do you think you are at risk of becoming homeless? (Adult - for ages 18 years and over) Not on file 06/15/2024 Does your family worry about paying for your home or becoming homeless? (Household - for ages 0-17 years) Not on file 1 08/15/2023 Are you homeless or worried that you might be in the future? No 06/15/2024 Are you (or your family) nnamdi eless or worried that you might be in the future? (Household - for ages 0-17 years) Not on file Food Insecurity Answer Date Recorded Do you need food for this week? No 06/15/2024 Are you able to get enough f ood for your family? (Household - for ages 0-17 years) Not on file 06/15/2024 Does your family need food t his week? (Household - for ages 0-17 years) Not on file 06/15/2024 Do you always have enough fo od for your family? (Household - for ages 0-17 years) Not on file 06/15/2024 Comments No Sex and Gender Information Value Date Recorded Sex Assigned at Female 08/03/2019 10:35 AM EST Legal Sex Female 2:47 PM EDT Gender Identity Female 08/03/2019 10:35 AM EST Sexual Orientation Straight 08/03/2019 10 :35 AM EST documented as of this encounter Last Filed Vital Signs Vital Sign Reading Time Taken Comments Blood Pressure 100/70 06/22/2024 9:00 AM EST Pulse 130 06/22/2024 9:00 AM EST Temperature 36.9 C (98.4 F) 06/22/2024 9:00 AM ES T Respiratory Rate - - Oxygen Saturation 99% 06/22/2024 9:00 AM EST Inhaled Oxygen Concentration - - Weight 48.2 kg (106 lb 4 oz) 06/22/2024 9:00 AM EST Height - - Body Mass Index 18.01 06/13/2024 5:54 AM EST documented in this encounter Functional Status * [...] Progress Notes * Payal Myers MD - 06/22/2024 10:25 AM EST Subjective Chief Complaint Patient presents with Follow Up Bhavin Wilson is a 29 year old female. Patient is accompanied by her fiance. The following issues were addressed today: History of Present Illness The patient presents for follow-up. Recently hospitalized for possible Still's disease/MAS, hospitalization complicated by gallstone pancreatitis and ileus. She reports ongoing abdominal pressure andconstipation. She reports feeling 'really bloated' and having difficulty with bowel movements, describing them as hard and difficult to pass. She has a bowel movement daily. She has not had any improvement with use of a stool softener. She also reports a sensation of fullness after eating, describing it as 'a brick sitting in my stomach.' She expresses concern about the possibility of developing chronic pancreatitis. In addition to the gastrointestinal symptoms, the patient reports intermittent fevers at night, reaching a maximum of 100.1 degrees Fahrenheit. She also mentions headaches, which started after discontinuing Topamax. She has been managing the headaches with Tylenol, but expresses dissatisfaction with having to take it frequently. The patient also reports improvement in her previously swollen feet, but notes that her abdomen still feels swollen. Also wondering if she can restart her OCPs. Suspect these were held during hospitalization due to concern of VTE in the setting of immobility. She is up and moving more. Still waiting to arrange PT/OT. Review of Systems: See HPI Objective BP 100/70 | Pulse 130 | Temp 98.4 F (36.9 C) (Tympanic) | Wt 106 lb 4 oz (48.2 kg) | SpO2 99% |BMI 18.01 kg/m | BSA 1.48 m Wt Readings from Last 3 Encounters: 06/22/24 106 lb 4 oz (48.2 kg) 06/13/24 127 lb 9.6 oz (57.9 kg) 06/02/24 118 lb (53.5 kg) BP Readings from Last 3 Encounters: 06/22/24 100/70 06/16/24 102/74 06/13/24 108/71 General: Well-appearing, no acute distress Abdomen: Mildly distended, non-tender Extremities: Mild non-pitting edema of ankles Neurological: Alert and oriented, no focal deficits noted Psychiatric: Appropriate mood and affect Assessment and Plan 1. Undifferentiated inflammatory polyarthritis (HCC) 2. Still's disease (HCC) 3. MAS (macrophage activation syndrome) (HCC) Continue current taper of prednisone. Will update labs today. Sees rheumatology later today. - COMPREHENSIVE METABOLIC PANEL; Future - MAGNESIUM; Future - PHOSPHORUS; Future - LIPASE; Future - COMPREHENSIVE METABOLIC PANEL; Standing 4. Migraine without aura and without status migrainosus, not intractable Will discuss with patient's neurologist regarding restarting Topamax versus other options. 5. History of pancreatitis Update labs. - COMPREHENSIVE METABOLIC PANEL; Future - LIPASE; Future - COMPREHENSIVE METABOLIC PANEL; Standing 6. Counseling for control, oral contraceptives OK to restart OCPs. Return in about 2 weeks (around 07/06/2024). This note was electronically signed by Payal Myers MD Text in this note was generated using an ambient documentation service. I discussed the use of a device to record and summarize our discussion today. All persons present during the encounter consented to its use. documented in this encounter Nursing Notes * Brianna Denney NA - 06/22/2024 8:56 AM EST Bhavin Wilson presents for follow-up from her previous hospital follow-up. Patient reports she is still having some pain from the pancreatitis, and joint pain. Patient also reports headaches. She was instructed to stop taking her migraine medication. Reports she has to take routine use of Tylenol or else she will get a headache. She also reports constipation. She was able to have a bowel movement yesterday and today. However, her bowel movements are hard and pale in consistency. She would also like to discuss contraception. Was instructed to stop taking it at the hospital and would like to discuss other options. Medications & HM reviewed. documented in this encounter Plan of Treatment Upcoming Encounters Date Type Department Care Team (Late st Contact Info) Description 06/22/2024 2:30 PM EST Office Visit Rheumatology [facility] [address] [place] [address] Michelle Goodwin CRNP [address] [place] [address] 07/10/2024 12:40 PM EST Office Visit [facility] [place] [place] [address] [place] [address] Payal Myers MD [address] [place] [id number] 08/19/2024 9:00 AM EST Office [facility] [place] [address] [place] [address] [address] Ant Cardona MD [address] [place] [address] 08/31/2024 8:20 AM EST Office Visit Family Practice [facility] [address] [place], [place] [address] Payal Myers MD [address] [place] [address] Pending Results Name Type Priority Associated Diagnoses Date /Time MAGNESIUM Lab Routine 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) 06/22/2024 9:39 AM EST PHOSPHORUS Lab Routine 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) 06/22/2024 9:39 AM EST LIPASE Lab Routine 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) History of pancreatitis 06/22/2024 9:39 AM EST COMPREHENSIVE METABOLIC PANEL Lab Routine 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) History of pancreatitis 06/22/2024 9:39 AM EST Scheduled Orders Name Type Priority Associated Diagnoses Orde r Schedule COMPREHENSIVE METABOLIC PANEL Lab Routine 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) History of pancreatitis Expected: 06/22/2024 (Approximate), Expires: 06/22/2025 MAGNESIUM Lab Routine 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) Expected: 06/22/2024 (Approximate), Expires: 06/22/2025 PHOSPHORUS Lab Routine 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) Expected: 06/22/2024 (Approximate), Expires: 06/22/2025 LIPASE Lab Routine 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) History of pancreatitis Expected: 06/22/2024 (Approximate), Expires: 06/22/2025 COMPREHENSIVE METABOLIC PANEL Lab Routine 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) History of pancreatitis Every Week for 6 Occurrences starting 06/22/2024 until 06/22/2025 Health Maintenance Due Date Last Done Comments COVID-19 Vaccine ( season) 2024 12/04/2020, 11/06/2020 TSH 06/01/2025 06/01/2024 Depression Monitoring 06/15/2025 06/15/2024, 024 Pap Smear 06/25/2025 06/25/2022, 02/11/2019 DTap/Tdap Vaccines [...] as of this encounter Visit Diagnoses Diagnosis Undifferentiated inflammatory polyarthritis (HCC)- Primary Unspecified inflammatory polyarthropathy 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, chronic or unspecified MAS (macrophage activation syndrome) (HCC) Hemophagocytic syndromes Migraine without aura and without status migrainosus, not intractable Migraine without aura, without mention of intractable migraine without mention of status migrainosus History of pancreatitis Personal history of other diseases of digestive system Counseling for control, oral contraceptives General counseling for prescription of oral contraceptives documented in this encounter Advance Directives * [...] Agents on File Name Relationship Healthcare Agent [facility] Communication Howard Barrientos Significant Other Health Care Re presentative (appointed verbally by patient or by statute hierarchy) Care Teams Painter Maintenance Relationship Specialty Start Date End Date Payal Myers MD [address] [place] [address] PCP - General Family Medicine 01/21/24 documented as of this encounter"
--- OUTSIDE RECORDS SUMMARY | 2024-07-05 06:40 | External Medical Summary ---
Author Name Unknown Address Unknown Organization K09:[facility] [place] [address] Laboratory Report Ordering Provider Test Date Status MARIELA PANTOJA 06/30/2024 12:45:17 Final Observation Date Value Abnormality Reference (Units ) Status Magnesium 06/30/2024 12:45:17 1.3 Below low normal 1.5 -2.6 (mg/dL) Final Performing Location [facility] [place] [address]
--- OUTSIDE RECORDS SUMMARY | 2024-07-05 06:40 | External Medical Summary | Summary of Care ---
Author Name Unknown Organization [facility] Address [address] [place] [address] Phone [phone] Care Team Providers Care Dispatch Specialist Name Role Phone Payal Myers MD Primary Care Provider [phone] Reason for Visit * Reason Comments Outpatient Testing Encounter Details Date Type Department Care Team (Late st Contact Info) Description 06/15/2024 11:50 AM EST Laboratory Laboratory [facility] [place] [place] [address] [place] [address] [facility] [address] [facility] [place] [address] Still's disease (HCC) Allergies Active Allergy Reactions Criticality Noted Date Comments Sulfasalazine Rash Medium 10/23/2023 documented as of this encounter (statuses as of 06/15/2024) Medications 08/10 1-20 MG-MCG per tablet 1 Tablet in the morning. 7 Active FLUoxetine HCl 20 MG Oral Capsule (PROzac)Indicat ions:LUDA (generalized anxiety disorder) Take 1 Capsule by mouth in the morning. 90 Capsule 3 4 Active Ferrous Sulfate 325 (65 Fe) MG Oral Tablet Delayed Release Take 1 Tablet by mouth. Every other day. Active Naratriptan HCl 2.5 MG Oral Tablet (Amerge) Take 1 Tablet by mouth as needed for Migraine (take 1 tab by mouth at start of headache, may repeat once after 4 hours; may use up to 2 days a week). 10 Tablet 2 4 Active B-12 500 MCG Oral Tablet Take 2 Tablets by mouth in the morning. Active Probiotic 250 MG Oral Capsule TAKE 2 CAPSULE BY MOUTH DAILY Active predniSONE 20 MG Oral Tablet (Deltasone) Take 2 Tablets by mouth daily for 1 day, THEN 1.5 Tablets daily for 5 days, THEN 1 Tablet daily for 5 days, THEN 0.5 Tablets daily for 5 days. 17 Tablet 06/13/2024 2:46 PM EST 4 06/30/20 24 Active Ergocalciferol 1.25 MG (47800 UT) Oral Capsule (Vitamin D2(Drisdol)) Take 1 [...] 30 Tablet 06/13/2024 2:46 PM EST Active Calcitriol 0.5 MCG Oral Capsule (Rocaltrol) Take 1 capsule in the morning and 2 capsules at night. Do not start before June 14, 2024. 60 Capsule 06/13/2024 2:46 PM EST Active Fenofibrate 160 [...] 2 Tablets in the evening. 120 Tablet Active documented as of this encounter (statuses as of 06/15/2024) Active Problems Problem Noted Date Diagnosed Date Hypocalcemia 06/07/2024 Isolated proteinuria without specific morphologi c lesion 06/05/2024 Rash and nonspecific skin eruption 06/04/2024 MAS (macrophage activation syndrome) 06/03/2024 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 Anemia of chronic disease 06/02/2024 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 Iron deficiency 02/28/2024 LUDA (generalized anxiety disorder) 10/09/2023 Seronegative inflammatory arthritis 10/09/2023 documented as of this encounter (statuses as of 06/15/2024) Resolved Problems Problem Noted Date Diagnosed Date Resolved Date Ileus 06/08/2024 06/13/2024 Chest pain, non-cardiac 06/04/202405/23 Idiopathic acute pancreatitis 06/04/2024 06/13/2024 Gallstone pancreatitis 06/02/202406/13 documented as of this encounter (statuses as of 06/15/2024) Immunizations Name Administration Dates Next Due COVID-19 [...] have concerns for your saf ety? No 06/02/2024 Do you have concerns for you r family's safety? (Household - for ages 0-17 years) Not on file 06/02/2024 Utilities Answer Date Recorded Do you have trouble paying y our heating, water, or electric bill? No 06/02/2024 Is your family able to pay t he heat, water, or electric bill? (Household - for ages 0-17 years) Not on file 06/02/2024 Does your family have access to good internet? (Household - for ages 0-17 years) Not on file 06/02/2024 Employment Status Answer Date Recorded Are you unemployed or without regular income? No 02/28/2024 Does the household have a [facility] source [facility] income? (Household - for ages [...] 18 years and over) Not on file 06/02/2024 Does your family have a hard time getting a ride to doctors visits? (Household - for ages 0-17 years) Not on file 06/02/2024 Has lack of transportation k ept you from medical appointments, meetings, work, or from getting things needed for daily living? Check all that apply. No 06/02/2024 Do you (or your family) have trouble finding or paying for a ride (transportation)? (Household - for ages 0-17 years) Not on file 06/02/2024 Housing Stability Answer Date Recorded Do you currently live in a s helter or have no steady place to sleep at night? No 06/02/2024 Do you think you are at risk of becoming homeless? (Adult - for ages 18 years and over) Not on file 06/02/2024 Does your family worry about paying for your home or becoming homeless? (Household - for ages 0-17 years) Not on file 1 08/02/2023 Are you homeless or worried that you might be in the future? No 06/02/2024 Are you (or your family) nnamdi eless or worried that you might be in the future? (Household - for ages 0-17 years) Not on file Food Insecurity Answer Date Recorded Do you need food for this week? No 06/02/2024 Are you able to get enough f ood for your family? (Household - for ages 0-17 years) Not on file 06/02/2024 Does your family need food t his week? (Household - for ages 0-17 years) Not on file 06/02/2024 Do you always have enough fo od for your family? (Household - for ages 0-17 years) Not on file 06/02/2024 Comments No Sex and Gender Information Value [...] of Assessment Author No 06/02/2024 7:41 PM lEaine Hatch RN * Do you have serious [...] Team (Late st Contact Info) Description 06/22/2024 9:00 AM EST Office Visit [facility] [address] [place] [address] Payal Myers MD [address] [facility] [place] [address] 08/19/2024 9:00 AM EST Office Visit Nephrology, [facility] [address] [place], [place] [address] Ant Cardnoa MD [address] [facility] [place], [place] [address] 08/31/2024 8:20 AM EST Office Visit [facility] [address] [facility] [place], [place] [address] Payal Myers MD [address] [facility] [place] [address] Pending Results Name Type Priority Associated Diagnoses Date /Time COMPREHENSIVE METABOLIC PANEL Lab Routine Still's disease (HCC) 06/15/2024 11:56 AM EST MAGNESIUM Lab Routine Still's disease (HCC) 06/15/2024 11:56 AM EST PHOSPHORUS Lab Routine Still's disease (HCC) 06/15/2024 11:56 AM EST Health Maintenance Due Date Last Done Comments COVID-19 Vaccine ( season) 2024 12/04/2020, 11/06/2020 Depression Screening 02/27/2025 02/28/2024 TSH 06/01/2025 06/01/2024 Pap Smear 06/25/2025 06/25/2022, 02/11/2019 DTap/Tdap Vaccines [...] as of this encounter Visit Diagnoses Diagnosis 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
--- OUTSIDE RECORDS SUMMARY | 2024-07-05 06:40 | External Medical Summary ---
Author Name Unknown Address Unknown Organization K[facility] [place] [address] Laboratory Report Ordering Provider Test Date Status MARIELA PANTOJA 06/22/2024 09:39:53 Final Observation Date Value Abnormality Reference (Units ) Status Phosphate 06/22/2024 09:39:53 4.3 2.5-4.8 (m g/dL) Final Performing Location [facility] [place] [address]
--- OUTSIDE RECORDS SUMMARY | 2024-07-05 06:40 | External Medical Summary ---
Author Name Unknown Address Unknown Organization [facility] [place] [address] Laboratory Report Ordering Provider Test Date Status MARIELA PANTOJA 06/30/2024 12:45:17 Final Observation Date Value Abnormality Reference (Units ) Status BUN 06/30/2024 12:45:17 20 6-20 (mg/dL) Final Creatinine 06/30/2024 12:45:17 0.9 0.5-1.0 (mg/dL) Final Glomerular filtration rate/1.73 sq M.predicted [Volume Rate/Area] in Serum, Plasma or Blood by Creatinine-based formula (CKD-EPI) 06/30/2024 12:45:17 90 >=60 (mL/min) Final eGFR is calculated based on the CKD-EPI 2020 equation. Sodium 06/30/2024 12:45:17 132 Below low normal 135 -146 (mmol/L) Final Potassium 06/30/2024 12:45:17 4.4 3.5-5.1 (m mol/L) Final Cl 06/30/2024 12:45:17 89 Below low normal 98- 107 (mmol/L) Final CO2 06/30/2024 12:45:17 33 Above high normal 22 -32 (mmol/L) Final Anion gap 06/30/2024 12:45:17 10 7-15 (mmol /L) Final Glucose 06/30/2024 12:45:17 92 70-120 (mg /dL) Final Albumin 06/30/2024 12:45:17 3.2 Below low normal 3.8 -5.0 (g/dL) Final AST (Aspartate aminotransferase) 06/30/2024 12:45:17 100 Above high normal 10-35 (U/L) Final Alk Phos 06/30/2024 12:45:17 141 Above high normal 35 -130 (U/L) Final Bilirubin, Total 06/30/2024 12:45:17 0.2 <=1 .2 (mg/dL) Final Calcium 06/30/2024 12:45:17 12.6 Above high normal 8. 4-10.2 (mg/dL) Final Protein 06/30/2024 12:45:17 6.4 6.0-8.3 (g /dL) Final ALT (Alanine aminotransferase) 06/30/2024 12:45:17 22 10-35 (U/L) Colin terry Performing Location [facility] [address] [place] [address]
--- OUTSIDE RECORDS SUMMARY | 2024-07-05 06:40 | External Medical Summary | Summary of Care ---
Author Name Unknown Organization [facility] [address] [address] Phone [phone] Care Team Providers Care [place] Name Role Phone Payal Myers MD Primary Care Provider Reason for Visit * Reason Comments Rheum Follow Up Follow up - Hospital discharge Encounter Details Date Type Department Care Team (Latest Contact Info) Description 06/22/2024 2:30 PM EST Office Visit Rheumatology [facility] [address] [place] [address] Michelle Goodwin CRNP [address] [place] [id number] Inflammatory polyarthritis (HCC)*; Serologic abnormality Allergies Active Allergy Reactions Criticality Noted Date [...] 2 Tablets by mouth in the morning. 11/02/202 4 Active predniSONE 20 MG Oral Tablet (Deltasone) Take 2 Tablets by mouth daily for 1 day, THEN 1.5 Tablets daily for 5 days, THEN 1 Tablet daily for 5 days, THEN 0.5 Tablets daily for 5 days. 17 Tablet 06/13/2024 2:46 PM EST 4 06/30/20 Active Ergocalciferol 1.25 MG (45629 UT) Oral Capsule (Vitamin D2(Drisdol)) Take 1 [...] Tablet Oral TID 06;12;18,400, Reported on 06/22/2024 documented as of this encounter (statuses as [...] Date Smoking Tobacco: Never Smokeless Tobacco: Never Tobacco Cessation:Counseling Given: Not Answered Alcohol Use Standard Drinks/Week Comments Not Currently [...] No 06/15/2024 Does the [facility] have a [facility]? (Household - for ages [...] Sign Reading Time Taken Comments Blood Pressure - - Pulse - - Temperature 36.4 C (97.5 F) 06/22/2024 2:19 PM ES T Respiratory Rate - - Oxygen Saturation - - Inhaled Oxygen Concentration - - Weight 48.1 kg (106 lb) 06/22/2024 2:19 PM EST Height - - Body Mass Index 17.96 06/13/2024 5:54 AM EST documented in this encounter Functional Status * Are you deaf or do you have serious difficulty hearing? Answer Date of Assessment Author No 06/02/2024 7:41 PM EST Elaine Baldwin RN * Are you blind or do you have serious difficulty seeing, even when wearing glasses? Answer Date of Assessment Author No 06/02/2024 7:41 PM EST Elaine Baldwin RN * Do you have serious difficulty walking or climbing stairs? (5 years old or older) Answer Date of Assessment Author No 06/02/2024 7:41 PM EST Elaine Baldwin RN * Do you have difficulty dressing or bathing? (5 years old or older) Answer Date of Assessment Author No 06/02/2024 7:41 PM EST Elaine Knott RN * Because of a physical, mental, [...] Elaine Hatch RN documented in this encounter Patient Instructions * Patient Instructions* Michelle Goodwin CRNP - 06/22/2024 3:19 PM EST Tofacitinib Brand Name(s): Siva Paniagua IMPORTANT WARNING: Taking tofacitinib may decrease your ability to fight infection and increase the risk that you willget a serious infection, including severe fungal, bacterial, or viral infections that spread through the body. These infections may need to be treated in a hospital and may cause . Tell your doctor if you often get any type of infection or if you think you may have any type of infection now. Th is includes minor infections (such as open cuts or sores), infections that come and go (such as cold sores), and chronic infections that do not go away. Also tell your doctor if you have or have everhad diabetes, human immunodeficiency virus (HIV), acquired immunodeficiency syndrome (AIDS), a lungdisease, or any other condition that affects your immune system. You should also tell your doctor if you live or have ever lived in areas such as the [place] or [facility] where severe fungal infections are more common. Ask your doctor if you are not sure if these infections are common in your area. Tell your doctor if you are taking medications that decrease the activity of the immune system such as the following: abatacept (Orencia); adalimumab (Humira); anakinra (Kineret); azathioprine (Azasan); certolizumab (Cimzia); cyclosporine (Gengraf, Neoral, Sandimmune); etanercept (Enbrel); golimumab (Simponi); infliximab (Remicade); methotrexate (Otrexup, Rasuvo, Trexall); rituximab (Rituxan); steroids including dexamethasone, methylprednisolone (Medrol), prednisolone (Orapred ODT,Prelone), and prednisone (Rg); tacrolimus (Astagraf, Envarsus XR, Prograf); and tocilizumab (Actemra). Your doctor will monitor you for signs of infection during and after your treatment. If you have any of the following symptoms before you begin your treatment or if you experience any of the following symptoms during or shortly after your treatment, call your doctor immediately: fever; sweating; chills; muscle aches; painful or difficult swallowing; cough; shortness of breath; weight loss; warm, red, or painful skin; painful rash; headache, sensitivity to light, neck stiffness, confusion; frequent, painful, or burning feeling during urination; stomach pain; diarrhea; or excessive tiredness. You may already be infected with tuberculosis (TB; a serious lung infection) but not have any symptoms of the disease. In this case, using tofacitinib may make your infection more serious and cause you to develop symptoms. Your doctor will perform a skin test to see if you have an inactive TB infection before you begin your treatment with tofacitinib. If necessary, your doctor will give you medica tion to treat this infection before you start using tofacitinib. Tell your doctor if you have or have ever had TB, if you have lived in or visited a country where TB is common, or if you have been around someone who has TB. If you have any of the following symptoms of TB, or if you develop any of these symptoms during your treatment, call your doctor immediately: cough, coughing up bloody mucus, weight loss, loss of muscle tone, or fever. Taking tofacitinib may cause serious or life-threatening heart problems, such as a heart attack or stroke, or serious or life-threatening blood clots in the legs, arms, lungs, or in the arteries during your treatment. Tell your doctor if you smoke or if you have ever smoked. Also tell your doctor if have or have ever had a heart attack or other heart problems; a stroke; a blood clot in your legs, arms, or lungs, or in the arteries; high cholesterol; high blood pressure; or diabetes. If you experience any of the following symptoms during your treatment, call your doctor immediately or get emergency medical treatment: pain in the chest, arms, back, neck, jaw, or stomach; breaking out in cold sweat; feeling light-headed; dizziness; numbness or weakness in face, arm, or legs; slow or difficult speech; sudden shortness of breath or difficulty breathing; swelling of a leg or arm; leg pain; redness, discoloration, or warmth in the legs or arms. Taking tofacitinib may increase the risk that you will develop a lymphoma (cancer that begins in the blood cells that fight infection) or other types of cancers, including lung cancer and skin cancer. Some people who took tofacitinib with other medications after they had a kidney transplant developed a condition that caused their bodies to produce too many white blood cells. Tell your doctor if you have or have ever had any type of cancer or have had a kidney transplant. Also tell your doctor if you smoke or if you have ever smoked. Your doctor or pharmacist will give you the relief master's patient information sheet (Medication Guide) when you begin treatment with tofacitinib and each time you refill your prescription. Read the information carefully and ask your doctor or pharmacist if you have any questions. You can also visit the Food and Drug Administration (FDA) website (https://www.fda.gov/Drugs/DrugSafety/ayv348633.htm) or the relief master's website to obtain the Medication Guide. WHY is this medicine prescribed? Tofacitinib is used alone or with other medications to treat rheumatoid arthritis (condition in which the body attacks its own joints causing pain, swelling, and loss of function) in adults who are unable to take or did not respond to one or more tumor necrosis factor (TNF) inhibitor medication(s).It is also used to treat psoriatic arthritis (a condition that causes joint pain and swelling and scales on the skin) in adults who are unable to take or did not respond to or tolerate one or more TNF inhibitor medication(s). Tofacitinib is used to treat ulcerative colitis (a condition which causesswelling and sores in the lining of the colon [large intestine] and rectum) in adults who are unable to take or who did not respond to one or more TNF inhibitor medication(s). It is also used to treat polyarticular juvenile idiopathic arthritis (PJIA; a type of childhood arthritis that affects fiveor more joints during the first six months of the condition, causing pain, swelling, and loss of function) in children 2 years and older who are unable to take or who did not respond to one or more TNF inhibitor medication(s). Tofacitinib is in a class of medications called Janus kinase (IRWIN) inhibitors. It works by decreasing the activity of the immune system. HOW should this medicine be used? Tofacitinib comes as a tablet, an extended-release (long-acting) tablet, and as an oral solution (liquid) to take by mouth. For the treatment of ulcerative colitis, rheumatoid arthritis, or psoriaticarthritis, the tablet is usually taken twice daily with or without food and the extended-release tablet is usually taken once daily with or without food. For the treatment of polyarticular course juvenile idiopathic arthritis, the tablet or the oral solution is usually taken twice daily with or without food. Take tofacitinib at around the same time(s) every day. Follow the directions on your prescription label carefully, and ask your doctor or pharmacist to explain any part you do not understand. Take tofacitinib exactly as directed. Do not take more or less of it or take it more often than prescribed by your doctor. Swallow the extended-release tablets whole; do not split, chew, or crush them. Always use the oral dosing syringe that comes with tofacitinib solution to measure your dose. Talk to your doctor or pharmacist if you have questions about how to measure your dose of tofacitinib solution. If you or your child are taking tofacitinib oral solution, ask your pharmacist or doctor for a copyof the relief master's instructions for use. Carefully read these instructions. Your doctor may need to decrease your dose or stop your treatment if you experience certain severe side effects. Be sure to tell your doctor how you are feeling during your treatment. Are there OTHER USES for this medicine? This medication may be prescribed for other uses; ask your doctor or pharmacist for more information. What SPECIAL PRECAUTIONS should I follow? Before taking tofacitinib, tell your doctor and pharmacist if you are allergic to tofacitinib, any other medications, or any of the ingredients in tofacitinib tablets, extended release tablets, or oral solution. Ask your pharmacist or check the Medication Guide for a list of the ingredients. tell your doctor and pharmacist what prescription and nonprescription medications, vitamins, and nutritional supplements you are taking or plan to take. Be sure to mention the medications listed in the IMPORTANT WARNING section and any of the following: certain antifungal medications such as fluconazole (Diflucan), itraconazole (Sporanox, Tolsura), and ketoconazole; aspirin and other nonsteroidalanti-inflammatory medications (NSAIDs) such as ibuprofen (Advil, Motrin) and naproxen (Naprosyn, Aleve); carbamazepine (Carbatrol, Equetro, Tegretol, others); clarithromycin (Biaxin, in Prevpac); certain medications for HIV including indinavir (Crixivan), nelfinavir (Viracept), and ritonavir (Norvir, in Kaletra); nefazodone; phenobarbital; phenytoin (Dilantin, Phenytek); rifabutin (Mycobutin); and rifampin (Rifadin, Rimactane). Your doctor may need to change the doses of your medications or monitor you carefully for side effects. tell your doctor what herbal products you are taking, especially Ocosta's wort. tell your doctor if you have stomach pain that has not been diagnosed and if you have or have ever had ulcers (sores in the lining of your stomach or intestine), diverticulitis (swelling of the lining of the large intestine), liver disease including hepatitis B or hepatitis C, cancer, anemia (a lower than normal number of red blood cells), dialysis (medical treatment to clean the blood when the ki dneys are not working properly), or kidney disease. If you are taking the extended-release tablets,tell your doctor if you have a narrowing or blockage of your digestive system. tell your doctor if you are or plan to become . You should not become while you are taking tofacitinib. If you become while taking tofacitinib, call your doctor. tell your doctor if you are . Do not breastfeed while you are taking tofacitinib tablets or oral solution and for at least 18 hours after the final dose of the tablet or for at least 36 hours after the final dose of the extended-release tablet. you should know that this medication may decrease fertility in women. Talk to your doctor about therisks of taking tofacitinib. tell your doctor if you have recently received or are scheduled to receive any vaccinations. If youneed any vaccinations, you may have to receive the vaccinations and then wait some time before beginning your treatment with tofacitinib. Do not have any vaccinations during your treatment without talking to your doctor. What SPECIAL DIETARY instructions should I follow? Unless your doctor tells you otherwise, continue your normal diet. What should I do IF I FORGET to take a dose? Take the missed dose as soon as you remember it. However, if it is almost time for the next dose, skip the missed dose and continue your regular dosing schedule. Do not take a double dose to make up for a missed one. What SIDE EFFECTS can this medicine cause? Tofacitinib may cause side effects. Tell your doctor if any of these symptoms are severe or do not go away: diarrhea headache stuffy or runny nose Some side effects can be serious. If you experience any of these symptoms or those listed in the IMPORTANT WARNING section, call your doctor immediately or get emergency medical treatment: hives, swelling of face, eyes, lips, or throat, difficulty swallowing or breathing stomach pain, especially if it comes along with fever and diarrhea or constipation yellowing of the skin or eyes loss of appetite dark urine tiffanie-colored bowel movements vomiting rash pale skin shortness of breath Tofacitinib may cause an increase in your blood cholesterol levels. Your doctor will order tests tomonitor your cholesterol levels during your treatment with tofacitinib. Upadacitinib Brand Name(s): Rinvoq, Rinvoq HIRAL IMPORTANT WARNING: Taking upadacitinib may decrease your ability to fight infection and increase the risk that you will get a serious infection, including severe fungal, bacterial, or viral infections that spread through the body. These infections may need to be treated in a hospital and may cause . Tell your doctor if you often get any type of infection or if you think you may have any type of infection now. This includes minor infections (such as open cuts or sores), infections that come and go (such as cold sores), and chronic infections that do not go away. Also tell your doctor if you have or have ever had diabetes, human immunodeficiency virus (HIV), acquired immunodeficiency syndrome (AIDS), hepati tis B (a viral infection that affects the liver), hepatitis C virus infection (HCV: an ongoing liver infection), herpes zoster (shingles; a rash that can occur in people who have had chickenpox in the past), a lung disease, or any other condition that affects your immune system. You should also tell your doctor if you live or have ever lived in areas such as the [place] or [facility] where severe fungal infections are more common. Ask your doctor if you are not sure if these infections are common in your area. Tell your doctor if you are taking medications that decrease the activity of the immune system. Make sure you have discussed any medications you are currently taking or plan to take with your doctor and pharmacist before starting upadacitinib. Your doctor will monitor you for signs of infection during and after your treatment. If you have any of the following symptoms before you begin your treatment or if you experience any of the following symptoms during or shortly after your treatment, call your doctor immediately: fever; sweating; chills; muscle aches; cough; shortness of breath; weight loss; warm, red, or painful skin; sores on the skin; frequent, painful, or burning feeling during urination; diarrhea; or excessive tiredness. You may already be infected with tuberculosis (TB; a serious lung infection) or hepatitis B or hepatitis C (viral infection that affects the liver) but not have any symptoms of these diseases. In this case, taking upadacitinib may make your infection more serious and cause you to develop symptoms. Your doctor will perform a skin test to see if you have an inactive TB infection and may order a blood test to see if you have an inactive hepatitis B or hepatitis C infection before you begin your treatment with upadacitinib. If necessary, your doctor will give you medication to treat this infection before you start using upadacitinib. Tell your doctor if you have or have ever had TB, if you havelived in or visited a country where TB is common, or if you have been around someone who has TB. Ifyou have any of the following symptoms of TB, or if you develop any of these symptoms during your treatment, call your doctor immediately: cough, coughing up bloody mucus, weight loss, loss of muscletone, or fever. Taking upadacitinib may increase the risk that you will develop a lymphoma (cancer that begins in the cells that fight infection) or other types of cancers such as skin cancer or lung cancer. Tell your doctor if you have or have ever had any type of cancer. Plan to avoid unnecessary or prolonged exposure to sunlight and to wear protective clothing and sunscreen. Also tell your doctor if you smokeor if you have ever smoked. Taking upadacitinib may cause serious or life-threatening heart problems, such as a heart attack orstroke, or serious or life-threatening blood clots in the lungs or legs. Tell your doctor if you smoke or if you have ever smoked. Also tell your doctor if have or have ever had a heart attack or other heart problems; a stroke; a blood clot in your legs, arms, or lungs, or in the arteries; high cholesterol; high blood pressure; or diabetes. If you experience any of the following symptoms during your treatment, call your doctor immediately or get emergency medical treatment: pain in the chest, arms, back, neck, jaw, or stomach; breaking out in cold sweat; feeling light-headed; dizziness; numbness or weakness in face, arm, or legs; slow or difficult speech; sudden shortness of breath or difficulty breathing; swelling of a leg or arm; leg pain; redness, discoloration, or warmth in the legs or arms. Keep all appointments with your doctor and the laboratory. Your doctor may order certain lab tests before, during, and after your treatment to check your body's response to upadacitinib. Your doctor or pharmacist will give you the relief master's patient information sheet (Medication Guide) when you begin treatment with upadacitinib and each time you refill your prescription. Read theinformation carefully and ask your doctor or pharmacist if you have any questions. You can also visit the Food and Drug Administration (FDA) website http://www.fda.gov/Drugs/DrugSafety/zyx657554.htm or the relief master's website to obtain the Medication Guide. Talk to your doctor about the risk(s) of taking upadacitinib. WHY is this medicine prescribed? Upadacitinib is used alone or with other medications to treat rheumatoid arthritis (condition in which the body attacks its own joints causing pain, swelling, and loss of function) in people who are unable to take or have not responded well to one or more tumor necrosis factor (TNF) inhibitor medica tion(s). It is also used to treat psoriatic arthritis (a condition that causes joint pain and swelling and scales on the skin) in adults who are unable to take or did not respond to or tolerate one or more TNF inhibitor medication(s) in adults and children 2 years of age and older. Upadacitinib is also used to treat symptoms of eczema (atopic dermatitis; a skin disease that causes the skin to be dry and itchy and to sometimes develop red, scaly rashes) in adults and children 12 years and older who cannot use other medications for their condition or whose eczema has not responded to other medications. It is also used to treat ulcerative colitis (a condition that causes swelling and sores in the lining of the colon [large intestine] and rectum) in adults who are unable to take or who did not respond to one or more TNF inhibitor medication(s). Upadacitinib is also used to treat Crohn's disease (a condition in which the body attacks the lining of the digestive tract, causing pain, diarrhea, weight loss, and fever) in adults who are unable to take or who did not respond to one or more TNF inhibitor medication(s). Upadacitinib is used to treat ankylosing spondylitis (a condition in which the body attacks the joints of the spine and other areas, causing pain, swelling, and joint damage) in adults who are unable to take or who did not respond to one or more TNF inhibitor medication(s). It is also used to treat active non-radiographic axial spondyloarthritis (a condition in which thebody attacks the joints of the spine and other areas, causing pain and signs of swelling), but without changes seen on X-ray, in adults who are unable to take or who did not respond to one or more TNF inhibitor medication(s). Upadacitinib is also used to treat polyarticular juvenile idiopathic arthritis (PJIA; a type of childhood arthritis that affects five or more joints during the first six months of the condition, causing pain, swelling, and loss of function) in children 2 years of age or older who are unable to take or who did not respond to one or more TNF inhibitor medication(s). Upadacitinib is in a class of medications called Janus kinase (IRWIN) inhibitors. It works by decreasing the activity of the immune system. HOW should this medicine be used? Upadacitinib comes as an extended-release (long-acting) tablet and solution (liquid) to take by mouth. The extended-release tablet is usually taken with or without food once daily. The oral solution is usually taken without or without food twice a day. Take upadacitinib at around the same time(s) every day. Follow the directions on your prescription label carefully, and ask your doctor or pharmacist to explain any part you do not understand. Take upadacitinib exactly as directed. Do not take more or less of it or take it more often than prescribed by your doctor. Swallow the extended-release tablets whole; do not split, chew, or crush them. If you are taking the liquid, do not use a household spoon to measure your dose. Always use the bottle adapter and measuring syringe provided by the relief master to measure each dose of the liquid. Your doctor may need to temporarily or permanently stop treatment if you experience certain severe side effects. Be sure to tell your doctor how you are feeling during your treatment. Are there OTHER USES for this medicine? This medication may be prescribed for other uses; ask your doctor or pharmacist for more information. What SPECIAL PRECAUTIONS should I follow? Before taking upadacitinib, tell your doctor and pharmacist if you are allergic to upadacitinib, any other medications, or any of the ingredients in upadacitinib extended-release tablets or solution. Ask your pharmacist or check the Medication Guide for a list of the ingredients. tell your doctor and pharmacist what other prescription and nonprescription medications, vitamins, nutritional supplements, and herbal products you are taking or plan to take while you are taking upadacitinib. Your doctor may need to change the doses of your medications or monitor you carefully forside effects. tell your doctor if you have or ever had ulcers (sores in the lining of your stomach or intestine),diverticulitis (swelling of the lining of the large intestine), a low number of white blood cells, anemia (a lower than normal number of red blood cells), or kidney or liver problems. Also, tell yourdoctor if you ever had any kind of surgery on your stomach or intestines, if you have had an iliostomy or colostomy (surgery to create an opening for waste to leave the body through the abdomen), or any other gastrointestinal problem. tell your doctor if you are or plan to become . You will need to have a test before you start treatment with upadacitinib. You should use control to prevent pregnancyduring your treatment and for at least 4 weeks after your final dose. Talk to your doctor about control methods that you can use. If you become , call your doctor immediately. Upadacitinib may harm the fetus. tell your doctor if you are . You should not breastfeed during your treatment with upadacitinib and for 6 days after your final dose. tell your doctor if you have recently received or are scheduled to receive any vaccinations. If youneed any vaccinations, you may have to receive the vaccinations and then wait some time before beginning your treatment with upadacitinib. Do not have any vaccinations during your treatment without talking to your doctor. you should know that some people may see something that looks like a tablet (whole tablet or tabletpieces) in their stool. If this happens, it could mean that you did not get your complete dose of medication. Call your doctor if you see a whole tablet or tablet pieces in your stool. What SPECIAL DIETARY instructions should I follow? Avoid drinking grapefruit juice or eating grapefruit while taking upadacitinib. What should I do IF I FORGET to take a dose? Take the missed dose as soon as you remember it. However, if it is almost time for the next dose, skip the missed dose and continue your regular dosing schedule. Do not take a double dose to make up for a missed one. What SIDE EFFECTS can this medicine cause? Upadacitinib may cause side effects. Tell your doctor if any of these symptoms are severe or do notgo away: stuffy or runny nose nausea acne headache increased weight muscle pain red bumps or pimples around hair follicles Some side effects can be serious. If you experience any of these symptoms or those listed in the IMPORTANT WARNING section, call your doctor immediately or get emergency medical treatment: rash, hives, swelling of face, eyes, lips, or throat, difficulty swallowing or breathing stomach pain, especially if it comes along with fever, chills, nausea, and vomiting shortness of breath, tiredness, or pale skin sudden changes in vision Upadacitinib may cause an increase in your blood cholesterol levels. Your doctor will order tests to monitor your cholesterol levels during your treatment with upadacitinib. Talk to your doctor aboutthe risks of taking this medication. Upadacitinib may cause other side effects. Call your doctor if you have any unusual problems while taking this medication. If you experience a serious side effect, you or your doctor may send a report to the Food and Drug Administration's (FDA) MedWatch Adverse Event Reporting program online (http://www.fda.gov/Safety/MedWatch) or by phone ( ). What should I know about STORAGE and DISPOSAL of this medication? Keep this medication in the container it came in, tightly closed, and out of reach of children. Store it either in the refrigerator or at room temperature and away from excess heat and moisture (not in the bathroom). Dispose of any unused oral solution 60 days after first opening the bottle. It is important to keep all medication out of sight and reach of children as many containers (such as weekly pill minders and those for eye drops, creams, patches, and inhalers) are not child-resistant and young children can open them easily. To protect young children from poisoning, always lock safety caps and immediately place the medication in a safe location - one that is up and away and out of their sight and reach. http://www.[employer].org Unneeded medications should be disposed of in special ways to ensure that pets, children, and otherpeople cannot consume them. However, you should not flush this medication down the toilet. Instead,the best way to dispose of your medication is through a medicine take-back program. Talk to your pharmacist or contact your local garbage/recycling department to learn about take-back programs in your community. See the FDA's Safe Disposal of Medicines website (http://goo.gl/c4Rm4p) for more information if you do not have access to a take- back program. What should I do in case of OVERDOSE? In case of overdose, call the poison control helpline at . Information is also available online at https://www.poisonhelp.org/help. If the victim has collapsed, had a seizure, has trouble breathing, or can't be awakened, immediately call emergency services at 481. What OTHER INFORMATION should I know? Do not let anyone else take your medication. Ask your pharmacist any questions you have about refilling your prescription. It is important for you to keep a written list of all of the prescription and nonprescription ([id number]) medicines you are taking, as well as any products such as vitamins, minerals, or otherdietary supplements. You should bring this list with you each time you visit a doctor or if you areadmitted to a hospital. It is also important information to carry with you in case of emergencies. This report on medications is for your information only, and is not considered individual patient advice. Because of the changing nature of drug information, please consult your physician or pharmacist about specific clinical use. The [employer] [place] [employer] represents that the information provided hereunder was formulated with a reasonable standard of care, and in conformity with professional standards in the field. The [employer] [place] [employer] makes no representations or warranties, express or implied, including, but not limited to, any implied warranty of merchantability and/or fitness for a particular purpose, with respect to such information and specifically disclaims all such warranties. Users are advised that decisions regarding drug therapy are complex medical decisions requiring the independent, informed decision of an appropriate health primary care physician, and the information is provided for informational purposes only. The entire monograph for a drug should be reviewed for a thorough understanding of the drug's actions, uses and side effects. The [employer] [place] [employer] does not endorse or recommend the use of any drug.The information is not a substitute for medical care. [facility] Patient Medication Information. Copyright, 2023. [employer] [place] [employer], [facility] Formerly [facility], [address], [place], [place]. All Rights Reserved. Duplication for commercial use must be authorized by [facility]. documented in this encounter Progress Notes * Michelle Goodwin CRNP - 06/22/2024 2:41 PM EST Date of last clinic visit reviewed: 02/26/2024 Current medication therapy: None Prior medication therapy: Sulfasalazine (diffused skin rash), Cimzia (Rash), Amjevita (chills, HENRIQUEZ, palpitations) Date of last labs reviewed: 06/16/2024 & 06/22/2024 Subjective: Patient seen today for further follow up evaluation of seronegative polyarthritis. She is accompanied by her mother. Since the last visit she had reaction to sulfasalazine, Cimzia, and Humira. 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 Was continued on steroids andfollowed by Rheumatology. She received Canakinumab with pretreatment and tolerated well . While shewas hospitalized she diagnosed treated for pancreatitis. At discharge she was given surgery referral for evaluation of a possible cholecystectomy. Reports she still has hardening of the abdomen and was told to await to that resolves before surgery consult. She is finishing her prednisone taper at this time. Reports that she still gets fevers at night of 100.1F but has not been logging daily. She reports she still has a lot of legs and ankles and has had several falls. Reports some minimal ankle swelling. She notes that her whole body is tender/painful 8/10 aching. She notes that sitting makes her leg pain worse. She notes that when she walks it feels like she is walking on a balloon. She notes that she will soon be meeting with a physical therapist. Hospital reports, "Patient was admitted to the hospital as a direct admission for rheumatology and hematology consults and further work up of her inflammatory polyarthritis. 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 She was followed very closely by the rheumatology team and was continued on oralsteroids. She additionally she received a dose of Canakinumab with premedication to avoid a reaction and tolerated this well. While admitted, her hospital course was complicated by pancreatitis (which was felt to possibly be related to gallstone pancreatitis versus a serositis manifestation in the s etting of DILE) and ileus. At time of [...] very close follow up with her PCP an d light adjuster. She was given a surgery referral on discharge for evaluation for possible cholecystectomy. " Musculoskeletal ROS: . Abnormal: joint pain, joint swelling, stiff muscles, weak muscles, and painful muscles . AM stiffness (hours): all day . Pain scale (0-10): 8 . Fatigue scale (0-10): 9 Other ROS: . Constitutional: fatigue and trouble sleeping . Head hx of migraines . Eyes: normal . Ears, nose, throat, mouth: dry mouth . Cardiovascular: palpitations . Respiratory: coughing up blood . Gastrointestinal: nausea, abdominal pain, and constipation . Genitourinary: normal . Skin: normal . Neurologic: numbness and tingling of legs and feet intermittently _ All other ROS reviewed and negative. Pertinent positives listed in HPI. Social History: Social History Tobacco Use Smoking status: Never Smokeless tobacco: Never Substance Use Topics Alcohol use: Not Currently Comment: occasionaly Vaping/E-Cigarette Use Vaping/E-Cigarette Use Never User Vaping/E-Cigarette Substances Vaping/E-Cigarette Devices Current Outpatient Medications Medication Sig Dispense Refill 08/10 1-20 MG-MCG per tablet 1 Tablet in the morning. FLUoxetine HCl 20 MG Oral Capsule (PROzac) Take 1 Capsule by mouth in the morning. 90 Capsule 3 Ferrous Sulfate 325 (65 Fe) MG Oral Tablet Delayed Release Take 1 Tablet by mouth. Every other day. B-12 500 MCG Oral Tablet Take 2 Tablets by mouth in the morning. predniSONE 20 MG Oral Tablet (Deltasone) Take 2 Tablets by mouth daily for 1 day, THEN 1.5 Tablets daily for 5 days, THEN 1 Tablet daily for 5 days, THEN 0.5 Tablets daily for 5 days. 17 Tablet 0 Ergocalciferol 1.25 MG (42713 UT) Oral Capsule (Vitamin D2(Drisdol)) Take 1 Capsule by mouth once aweek. 12 Capsule 0 Levothyroxine Sodium 88 MCG Oral Tablet (Levoxyl) Take 1 Tablet by mouth daily first thing in the morning. (at least 30 min prior to breakfast or other meds) 30 Tablet 0 Omeprazole 20 MG Oral Capsule Delayed Release (PriLOSEC) Take 1 Capsule by mouth in the morning. 30Capsule 0 Sennosides 8.6 MG Oral Tablet Take 1 Tablet by mouth in the morning. 30 Tablet 0 Calcitriol 0.5 MCG Oral Capsule (Rocaltrol) Take 1 capsule in the morning and 2 capsules at night. Do not start before June 14, 2024. 60 Capsule 0 Fenofibrate 160 MG Oral Tablet (Lofibra) Take 1 Tablet by mouth in the morning. 30 Tablet 0 HYDROmorphone HCl 2 MG Oral Tablet (Dilaudid) Take 1 Tablet by mouth every 4 hours as needed for moderate pain 30 Tablet 0 Hydrocortisone 2.5 % External Cream Apply to chest and face twice daily for 2 weeks. 20 g 0 Calcium Citrate 333 MG Oral Tablet Take 2 Tablets by mouth in the morning and 2 Tablets at noon and2 Tablets in the evening. (Patient taking differently: Take 2 Tablets by mouth in the morning and 2Tablets at noon and 2 Tablets in the evening. 400.) 120 Tablet 0 No current facility-administered medications for this visit. Physical Exam: Temp 36.4 C (97.5 F) (Infrared ) | Wt 48.1 kg (106 lb) | BMI 17.96 kg/m | BSA 1.48 m General: alert, ill looking, and malnourished HENT: normocephalic, external ears normal, no mucosal erythema, no mucosal edema, moist mucosa, no oral ulcers Eye Exam: PERRL, EOMI, conjunctiva are pink and non-injected, sclera clear Neck: supple, no adenopathy Lymph: no palpable lymphadenopathy Heart: regular rate & rhythm, no murmur, and no gallops Lungs: clear to auscultation , no rales, wheezes or rhonchi Abdomen: normal bowel sounds and distended Extremities: no clubbing, no cyanosis, +2 nonpitting edema bilateral ankles Neuro Exam: alert & oriented x 3 with fluent speech, no focal motor/sensory deficits Skin: skin color, texture, turgor are normal, no rashes or significant lesions Musculoskeletal Exam: A comprehensive musculoskeletal exam was performed for all joints of each upper and lower extremity and assessed for swelling, tenderness and range of motion. Diffuse soft tissue tenderness of bilateral arms and legs. Tenderness of bilateral shoulders on active and passive range of motion with limited range of motion. Bilateral hip pain on passive range of motion. No synovitis of joints on exam. Car Knocker strength 3/5. Flexion of the bilateral thumbs 3/5 Latest Reference Range & Units 06/22/24 09:39 SODIUM 135 - 146 mmol/L 135 POTASSIUM 3.5 - 5.1 mmol/L 4.7 CHLORIDE 98 - 107 mmol/L 93 (L) CO2 22 - 32 mmol/L 28 BUN 6 - 20 mg/dL 8 CREATININE 0.5 - 1.0 mg/dL 0.5 EGFR >=60 mL/min >90 ANION GAP 7 - 15 mmol/L 14 GLUCOSE 70 - 120 mg/dL 97 CALCIUM 8.4 - 10.2 mg/dL 10.5 (H) Magnesium 1.5 - 2.6 mg/dL 1.9 Phosphorus 2.5 - 4.8 mg/dL 4.3 Protein 6.0 - 8.3 g/dL 6.9 Latest Reference Range & Units 06/16/24 14:35 CBC Rpt ! WBC 4.00 - 10.80 K/uL 8.70 RBC 3.85 - 5.15 M/uL 3.57 HGB 12.0 - 15.3 g/dL 9.5 (L) HCT 36.0 - 45.2 % 30.7 (L) MCV 81.5 - 97.5 fL 86.0 MCH 27.0 - 34.0 pg 26.6 MCHC 32.0 - 36.0 g/dL 30.9 RDW 11.5 - 15.5 % 19.6 PLT 140 - 400 K/uL 353 MPV 6.6 - 11.1 fL 8.1 Latest Reference Range & Units 06/22/24 09:39 Albumin 3.8 - 5.0 g/dL 3.3 (L) AST 10 - 35 U/L 100 (H) ALT 10 - 35 U/L 35 Alkaline Phosphatase 35 - 130 U/L 171 (H) Bilirubin, Total <=1.2 mg/dL 0.3 Assessment: (M06.4) Inflammatory polyarthritis (HCC) (primary encounter diagnosis) (R89.4) Serologic abnormality Ms. Wilson returns today for hospital follow up of management inflammatory polyarthritis. She has failed sulfasalazine, Cimzia, Humira. She has ongoing joint pains and soft tissue tenderness. Discussed IRWIN kinase inhibitors such as Rinvoq or Xeljanz. Reviewed benefits and side effects with information given at checkout. We will start authorization for Xeljanz at this time. Advised patient to hold medication 3-5 days prior to cholecystectomy and 7-10 days postop if not on antibiotics and without infection. Advised patient to continue monitoring/logging fevers and other symptoms that may occur. We will follow up in 5 weeks. Patient advised to hold any immunosuppressant medication if they are sick or on antibiotics. Labs ordered for monitoring for medication toxicity. Patient advised to contact the clinic with questions,concerns, worsening symptoms. Patient agreeable to this plan and verbalized understanding. Plan: 1. Labs: CBC/CMP 1 month after starting Xeljanz 2. Review information on Xeljanz 3. Start authorization on Xeljanz 4. Follow up 5 weeks 5. Contact clinic with any questions, concerns, worsening symptoms 6. Discussed the above in detail with the patient. All questions answered. CC BRYCE Tong Department of Rheumatology I saw and examined the patient. I agree with the findings and plan as documented by Michelle WU in this note. She is not doing well and has not been doing well for some time. She has limited range of motion her shoulders on exam. No knee effusions. Bilateral ankle edema without pain on exam. No rashes. Will look into coverage for Xeljanz. Will contact the Rheumatology team in [place] about the prednisone taper. Neal Vang MD Rheumatology Department documented in this encounter Nursing Notes * Una Ruelas LPN - 06/22/2024 2:17 PM EST Chief Complaint Patient presents with Rheum Follow Up Follow up - Hospital discharge Pt stated that she was in the hospital from possible side effects to Amjetva documented in this encounter Plan of Treatment Upcoming Encounters Date Type Department Care Team (Late st Contact Info) Description 07/10/2024 12:40 PM EST Office Visit [facility] [address] [facility] [place] [address] Payal Myers MD [address] [facility] [place] [address] 08/19/2024 9:00 AM EST Office Visit [facility] [address] [facility] [place] [address] Ant Cardona MD [address] [facility] [place] [address] 08/31/2024 8:20 AM EST Office Visit [facility] [address] [facility] [place], [place] [address] Payal Myers MD [address] [facility] [place] [address] 11/09/2024 3:20 PM EDT Office Visit Rheumatology [place] [address] [place] [address] Neal Vang MD [facility] [place] [address] Health Maintenance Due Date Last Done Comments COVID-19 Vaccine (2023- season) 2024 12/04/2020, 11/06/2020 TSH 06/01/2025 06/01/2024 [...] as of this encounter Visit Diagnoses Diagnosis Inflammatory polyarthritis (HCC)- Primary Unspecified inflammatory polyarthropathy Serologic abnormality Other and unspecified nonspecific immunological findings documented in this encounter Advance Directives * [...] patient or by statute hierarchy) Care Teams [place] Relationship Specialty Start Date End Date Payal Myers MD [address] [facility] [place] [address] PCP - General Family Medicine 01/21/24 documented as of this encounter
--- OUTSIDE RECORDS SUMMARY | 2024-07-05 06:40 | External Medical Summary ---
Author Name Unknown Address Unknown Organization [id number]:[facility] [address] [place] [address] Laboratory Report Ordering Provider Test Date Status MARIELA PANTOJA 06/22/2024 09:39:53 Final Observation Date Value Abnormality Reference (Units ) Status BUN 06/22/2024 09:39:53 8 6-20 (mg/dL) Final Creatinine 06/22/2024 09:39:53 0.5 0.5-1.0 (mg/dL) Final Glomerular filtration rate/1.73 sq M.predicted [Volume Rate/Area] in Serum, Plasma or Blood by Creatinine-based formula (CKD-EPI) 06/22/2024 09:39:53 >90 >=60 (mL/min) Final eGFR is calculated based on the CKD-EPI 2020 equation. Sodium 06/22/2024 09:39:53 135 135-146 (m mol/L) Final Potassium 06/22/2024 09:39:53 4.7 3.5-5.1 (m mol/L) Final Cl 06/22/2024 09:39:53 93 Below low normal 98- 107 (mmol/L) Final CO2 06/22/2024 09:39:53 28 22-32 (mmo l/L) Final Anion gap 06/22/2024 09:39:53 14 7-15 (mmol /L) Final Glucose 06/22/2024 09:39:53 97 70-120 (mg /dL) Final Albumin 06/22/2024 09:39:53 3.3 Below low normal 3.8 -5.0 (g/dL) Final AST (Aspartate aminotransferase) 06/22/2024 09:39:53 100 Above high normal 10-35 (U/L) Final Alk Phos 06/22/2024 09:39:53 171 Above high normal 35 -130 (U/L) Final Bilirubin, Total 06/22/2024 09:39:53 0.3 <=1 .2 (mg/dL) Final Calcium 06/22/2024 09:39:53 10.5 Above high normal 8. 4-10.2 (mg/dL) Final Protein 06/22/2024 09:39:53 6.9 6.0-8.3 (g /dL) Final ALT (Alanine aminotransferase) 06/22/2024 09:39:53 35 10-35 (U/L) Colin terry Performing Location [facility] [address] [place] [address]
--- OUTSIDE RECORDS SUMMARY | 2024-07-05 06:40 | External Medical Summary | Summary of Care ---
Author Name Unknown Organization [facility] Address [address] [facility] [address] Phone [phone] Care Team Providers Care General Teller Name Role Phone Scarlett Myers MD Primary Care Provider [phone] Reason for Visit * Reason Onset Date Comments Hospital Follow-Up 06/13/2024 Encounter Details Date Type Department Care Team (Late st Contact Info) Description 06/13/2024 Telephone Family Practice [facility] [place] 200 [facility] [place] [address] Scarlett Myers MD 200 [facility] [place] [address] Hospital Follow-Up Allergies Active Allergy Reactions Criticality Noted Date Comments Sulfasalazine Rash Medium 10/23/2023 documented as of this encounter (statuses as of 06/17/2024) Medications 08/10 1-20 MG-MCG per tablet 1 [...] by mouth in the morning. 4 Active predniSONE 20 MG Oral Tablet (Deltasone) Take 2 Tablets by mouth daily for 1 day, THEN 1.5 Tablets daily for 5 days, THEN 1 Tablet daily for 5 days, THEN 0.5 Tablets daily for 5 days. 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 Anemia of chronic disease 06/02/2024 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 Iron deficiency 02/28/2024 LUDA (generalized anxiety disorder) 10/09/2023 Seronegative inflammatory arthritis 10/09/2023 documented as of this encounter (statuses as of 06/17/2024) Resolved Problems Problem Noted Date Diagnosed Date Resolved Date Ileus 06/08/2024 06/13/2024 Chest pain, non-cardiac 06/04/202405/23 Idiopathic acute pancreatitis 06/04/2024 06/13/2024 Gallstone pancreatitis 06/02/202406/13 documented as of this encounter (statuses as of 06/17/2024) Immunizations Name Administration Dates Next Due COVID-19 [...] No 06/15/2024 Does the household have a re lar [...] Entry Date Author No 06/02/2024 7:41 PM EST Elaine Baldwin RN documented in this encounter Miscellaneous Notes * Telephone Encounter - Ely Beckman OSA - 06/17/2024 1:43 PM EST Patient is scheduled for 06/23/24. No further appointment needed at this time. * Telephone Encounter - Neal Vang MD - 06/16/2024 4:56 PM EST Email sent the patient about follow up appointment next week * Telephone Encounter - Cassidy Barrett MD - 06/16/2024 1:10 PM EST Rheumatology follow up Called patient to check in on her symptoms post discharge. She continues to have arthralgia, and difficulty with ambulating, is using walker and toilet risingyet did fall yesterday. Continues to have foot swelling, continues to have dyspnea. Has been having subjective fevers at night yet no objective fever on her thermometer. Symptoms are otherwise stable, currently tapered from the 40 mg prednisone, now on 30 mg prednisone. No changes with this regimen. Overall symptoms are unchanged since her discharge. Plan: -she is due to f/u today with physician as wound from bmarrow biopsy site is leaking -pt ot referral was placed -I reached out to Dr. Malcolm, her creative assistant at [place], she should expect a call from their office regarding setting up follow up. -I did senior counsel commercial her to continue to monitor her temperatures, and go to urgent care if any severe symptoms develops. * Telephone Encounter - Ashley Shine OSA - 06/13/2024 1:51 PM EST Patient Name: BHAVIN VALERO([id number]) Sex: Female : 1995 PCP: SCARLETT MYERS Center: [address] Types of orders made on 06/13/2024: IP Post Discharge , Lab Order Date:06/13/2024 Ordering User:DEANNA AMNDEL [[id number]] Attending Provider:Deanna Mandel DO [[id number]] Authorizing Provider: Deanna Mandel DO [[id number]] Department:BP5T IP [facility][[id number]] Order Specific Information Order: RETURN APPT [CUSTOM: [id number]] Order #: [id number]: 1 Priority: Routine Class: Nursing Unit Department (Single Entry) -> Family Practice Appt Needed Within: (Specify # of Days, Weeks, Months) -> 3 Days Provider -> SCARLETT MYERS Tests Needed Prior to Appt -> CMP, Mg, Phos Released on: 06/13/2024 11:40 AM Priority: Routine Class: Nursing Unit Department (Single Entry) -> Family Practice Appt Needed Within: (Specify # of Days, Weeks, Months) -> 3 Days Provider -> SCARLETT MYERS Tests Needed Prior to Appt -> CMP, Mg, Phos Released on: 06/13/2024 11:40 AM documented in this encounter Plan of Treatment Upcoming Encounters Date Type Department Care Team (Late st Contact Info) Description 06/22/2024 9:00 AM EST Office Visit Family Practice [facility] [place] [address] [place] [address] Scarlett Myers MD [address] [place] [address] 06/22/2024 2:30 PM EST Office Visit Rheumatology [place] [id number] [place] [address] Michelle Goodwin CRNP [facility] [employer] [place] [address] 08/19/2024 9:00 AM EST Office Visit Nephrology, [facility] [address] [place] [address] Ant Cardona MD 200 [facility] [place], [place] [address] 08/31/2024 8:20 AM EST Office Visit Family Practice [facility] [place] [place] 200 [facility] [place], [place] [address] Scarlett Myers MD 200 [facility] [place], [place] [address] Health Maintenance Due Date Last Done Comments [...] Not on filedocumented as of this encounter Advance Directives * Full Code [...] patient or by statute hierarchy) Care Teams General Teller Relationship Specialty Start Date End Date Scarlett Myers MD 200 [place] [address] PCP - General Family Medicine 01/21/24 documented as of this encounter
--- OUTSIDE RECORDS SUMMARY | 2024-07-05 06:40 | External Medical Summary | Summary of Care ---
Author Name Unknown Organization [facility] Address [address] [facility] [place] [address] Phone [phone] Care Team Providers Care Rod Cup Filler Name Role Phone Payal Myers MD Primary Care Provider [phone] Reason for Visit * Reason Comments Outpatient Testing Encounter Details Date Type Department Care Team (Late st Contact Info) Description 06/22/2024 9:40 AM EST Laboratory Laboratory [facility] [place] [address] [place] [address] [facility] [address] [facility] [place] [address] Still's disease ([facility]); MAS (macrophage activation syndrome) ([facility]); History of pancreatitis Allergies Active Allergy Reactions Criticality Noted Date [...] EST 4 06/30/20 Active Ergocalciferol 1.25 MG (35469 UT) Oral Capsule (Vitamin D2(Drisdol)) Take 1 [...] 20 g 06/13/2024 2:46 PM EST Active Calcium Citrate 333 MG Oral Tablet [...] 06/15/2024 Does the household have a re gular [...] Elaine Baldwin RN documented in this encounter Plan of Treatment Upcoming Encounters Date Type Department Care Team (Late st Contact Info) Description 06/22/2024 2:30 PM EST Office Visit Rheumatology [place] [phone] [facility] [place], [place] [address] Michelle Goodwin CRNP [facility] [place] [address] 07/10/2024 12:40 PM EST Office Visit [facility] 200 [facility] [place] [address] Payal Myers MD 200 [facility] [place] [address] 08/19/2024 9:00 AM EST Office Visit Nephrology, [facility] [address] [facility] [place] [address] Ant Cardona MD 200 [facility] [place], [place] [address] 08/31/2024 8:20 AM EST Office Visit [facility] [address] [facility] [place] [address] Payal Myers MD 200 [facility] [place], [place] [address] Pending Results Name Type Priority Associated Diagnoses [...] History of pancreatitis 06/22/2024 9:39 AM EST Health Maintenance Due Date Last [...] MAS (macrophage activation syndrome) (HCC) Hemophagocytic syndromes History of pancreatitis Personal history of other diseases of digestive system documented in this encounter Advance Directives * [...] patient or by statute hierarchy) Care Teams Rod Cup Filler Relationship Specialty Start Date End Date Payal Myers MD 200 [place] [address] PCP - General Family Medicine 01/21/24 documented as of this encounter
--- OUTSIDE RECORDS SUMMARY | 2024-07-05 06:40 | External Medical Summary | Summary of Care ---
Author Name Unknown Organization [facility] Address [address] [place] [address] Phone [phone] Care Team Providers Care Flask Fitter Name Role Phone Payal Myers MD Primary Care Provider [phone] Reason for Visit * Reason Onset Date Comments Appointment 06/22/2024 Encounter Details Date Type Department Care Team (Late st Contact Info) Description 06/22/2024 Telephone Rheumat[address] [place] [phone] Services, Scheduling [address] [place] [address] Appointment Allergies Active Allergy Reactions Criticality Noted Date Comments Adalimumab High 05/20/2024 Other Reaction(s): Chills and hot flashes Sulfasalazine Rash Medium 10/23/2023 documented as of this encounter (statuses as of 06/23/2024) Medications 08/10 1-20 MG-MCG per tablet 1 [...] EST 4 06/30/20 Active Ergocalciferol 1.25 MG (13896 UT) Oral Capsule (Vitamin D2(Drisdol)) Take 1 [...] as of this encounter (statuses as of 06/23/2024) Active Problems Problem Noted Date Diagnosed Date Hypocalcemia 06/07/2024 Isolated proteinuria without specific morphologi c lesion 06/05/2024 Rash and nonspecific skin eruption 06/04/2024 MAS (macrophage activation syndrome) 06/03/2024 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 Anemia of chronic disease 06/02/2024 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 Iron deficiency 02/28/2024 LUDA (generalized anxiety disorder) 10/09/2023 Seronegative inflammatory arthritis 10/09/2023 documented as of this encounter (statuses as of 06/23/2024) Resolved Problems Problem Noted Date Diagnosed Date Resolved Date Ileus 06/08/2024 06/13/2024 Chest pain, non-cardiac 06/04/202405/23 Idiopathic acute pancreatitis 06/04/2024 06/13/2024 Gallstone pancreatitis 06/02/202406/13 documented as of this encounter (statuses as of 06/23/2024) Immunizations Name Administration Dates Next Due COVID-19 [...] encounter Miscellaneous Notes * Telephone Encounter - Lyssa Coffey OSA - 06/22/2024 4:44 PM EST Patient calling in stating that Zora called her from the Rheumatology office to notify patient of an appointment scheduled for her in the beginning of July 2024, but patient is not seeing it on her MyG appointments. Please review and contact patient or send a MyG as necessary, thank you. I do not see any documentation stating this. documented in this encounter Plan of Treatment Upcoming Encounters Date Type Department Care Team (Late st Contact Info) Description 07/10/2024 12:40 PM EST Office Visit [facility] [address] [place] [address] Payal Myers MD [address] [place] [address] 07/30/2024 2:30 PM EST Office Visit Rheumatology [place] [phone] [facility] [place] [address] Michelle Goodwin CRNP [address] [employer] [place] [address] 08/19/2024 9:00 AM EST Office Visit Nephrology, [facility] [address] [place] [address] Ant Cardona MD [address] [place], [place] [address] 08/31/2024 8:20 AM EST Office Visit [facility] [address] [place] [address] Payal Myers MD [address] [place] [address] 11/09/2024 3:20 PM EDT Office Visit Rheumatology [facility] [address] [employer] [place] [address] Neal Vang MD [address] [employer] [place] [address] Health Maintenance Due Date Last Done Comments [...] patient or by statute hierarchy) Care Teams Flask Fitter Relationship Specialty Start Date End Date Payal Myers MD 200 [facility] [place] [address] PCP - General Family Medicine 01/21/24 documented as of this encounter
--- OUTSIDE RECORDS SUMMARY | 2024-07-05 06:40 | External Medical Summary | Summary of Care ---
Author Name Unknown Organization [facility] Address [address] [facility] [place] [address] Phone [phone] Care Team Providers Care Business Development Assistant Name Role Phone Payal Myers MD Primary Care Provider Encounter Details Date Type Department Care Team (Late st Contact Info) Description 06/24/2024 Orders Only PATIENT PORTAL DO NOT DELETE THIS DEPT USED BY [place] [id number] Allergies Active Allergy Reactions Criticality Noted Date Comments Adalimumab High 05/20/2024 Other Reaction(s): Chills and hot flashes Sulfasalazine Rash Medium 10/23/2023 documented as of this encounter (statuses as of 06/24/2024) Medications 08/10 1-20 MG-MCG per tablet 1 [...] days. 17 Tablet 06/13/2024 2:46 PM EST 11/24/202 4 06/30/20 24 Active Ergocalciferol 1.25 MG (75806 UT) Oral Capsule (Vitamin D2(Drisdol)) Take 1 [...] Tablets in the evening. 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 Anemia of chronic disease 06/02/2024 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 Iron deficiency 02/28/2024 LUDA (generalized anxiety disorder) 10/09/2023 Seronegative inflammatory arthritis 10/09/2023 documented as of this encounter (statuses as of 06/24/2024) Resolved Problems Problem Noted Date Diagnosed Date Resolved Date Ileus 06/08/2024 06/13/2024 Chest pain, non-cardiac 06/04/202405/23 Idiopathic acute pancreatitis 06/04/2024 06/13/2024 Gallstone pancreatitis 06/02/202406/13 documented as of this encounter (statuses as of 06/24/2024) Immunizations Name Administration Dates Next Due COVID-19 [...] Date Author No 06/02/2024 7:41 PM EST Benscoter , Elaine M, RN documented in this encounter Plan of Treatment Upcoming Encounters Date Type Department Care Team (Late st Contact Info) Description 07/10/2024 12:40 PM EST Office Visit [facility] [place], [place] [address] Payal Myers MD 200 [facility] [place] [address] 07/30/2024 2:30 PM EST Office Visit Rheumatology [place] [address] [facility] [place], [place] [address] Michelle Goodwin CRNP [facility] [employer] [facility] [place] [address] 08/19/2024 9:00 AM EST Office Visit Nephrology, [facility] 200 [facility] [place], [place] [address] Ant Cardona MD 200 [facility] [place], [place] [address] 08/31/2024 8:20 AM EST Office Visit [facility] [address] [place], [place] [address] Payal Myers MD 200 [facility] [place], [place] [address] 11/09/2024 3:20 PM EDT Office Visit Rheumatology [address] [place] [address] Neal Vang MD [facility] [employer] [facility] [place] [address] Health Maintenance Due Date Last Done Comments [...] patient or by statute hierarchy) Care Teams Business Development Assistant Relationship Specialty Start Date End Date Payal Myers MD 200 [facility] [place] [address] PCP - General Family Medicine 01/21/24 documented as of this encounter
--- OUTSIDE RECORDS SUMMARY | 2024-07-05 06:40 | External Medical Summary ---
Author Name Unknown Address Unknown Organization K[facility] [address] Laboratory Report Ordering Provider Test Date Status MARIELA PANTOJA 06/16/2024 14:35:52 Final Observation Date Value Abnormality Reference (Units ) Status WBC, Total 06/16/2024 14:35:52 8.70 4.00-10.8 0 (K/uL) Final RBC 06/16/2024 14:35:52 3.57 3.85-5.15 (M/uL) Final Hemoglobin 06/16/2024 14:35:52 9.5 Below low normal 12 .0-15.3 (g/dL) Final HCT 06/16/2024 14:35:52 30.7 Below low normal 36. 0-45.2 (%) Final MCV 06/16/2024 14:35:52 86.0 81.5-97.5 (fL) Final MCH 06/16/2024 14:35:52 26.6 27.0-34.0 (pg) Final MCHC 06/16/2024 14:35:52 30.9 32.0-36.0 (g/dL) Final RDW 06/16/2024 14:35:52 19.6 11.5-15.5 (%) Final Platelets 06/16/2024 14:35:52 353 140-400 (K /uL) Final MPV 06/16/2024 14:35:52 8.1 6.6-11.1 ( fL) Final Performing Location [facility] [address]
--- OUTSIDE RECORDS SUMMARY | 2024-07-05 06:40 | External Medical Summary | Summary of Care ---
Author Name Unknown Organization [facility] Address [address] [facility] [address] Phone [phone] Care Team Providers Care Rope Making Machine Operator Name Role Phone Payal Myers MD Primary Care Provider [phone] Reason for Visit * Reason Comments Outpatient Testing Encounter Details Date Type Department Care Team (Late st Contact Info) Description 06/30/2024 12:40 PM EST Laboratory Laboratory [facility] [place] [address] [place] [address] [facility] [address] [facility] [place] [address] Still's disease ([facility]); MAS (macrophage activation syndrome) ([facility]); History of pancreatitis Allergies Active Allergy Reactions Criticality Noted Date Comments Adalimumab High 05/20/2024 Other Reaction(s): Chills and hot flashes Sulfasalazine Rash Medium 10/23/2023 documented as of this encounter (statuses as of 06/30/2024) Medications 08/10 1-20 MG-MCG per tablet 1 [...] EST 4 06/30/20 Active Ergocalciferol 1.25 MG (60845 UT) Oral Capsule (Vitamin D2(Drisdol)) Take 1 Capsule by mouth once a week. 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 Iron deficiency 02/28/2024 LUDA (generalized anxiety disorder) 10/09/2023 Seronegative inflammatory arthritis 10/09/2023 documented as of this encounter (statuses as of 06/30/2024) Resolved Problems Problem Noted Date Diagnosed Date Resolved Date Ileus 06/08/2024 06/13/2024 Chest pain, non-cardiac 06/04/202405/23 Idiopathic acute pancreatitis 06/04/2024 06/13/2024 Gallstone pancreatitis 06/02/202406/13 documented as of this encounter (statuses as of 06/30/2024) Immunizations Name Administration Dates Next Due COVID-19 [...] Description 07/10/2024 9:00 AM EST Telemedicine Rheumatology, [place] [address] [place] [address] Agc[employer], Pharmacist Rheumatology [facility] [place] [address] 07/10/2024 12:40 PM EST [facility] Visit [facility] [address] [place] [address] Payal Myers MD [address] [place] [address] 07/30/2024 2:30 PM EST Office Visit Rheumatology [place] [address] [facility] [place] [address] Michelle Goodwin CRNP [address] [place] [address] [place] [address] 08/19/2024 9:00 AM EST Office Visit Nephrology, [facility] [address] [place] [address] Ant Cardona MD [address] [place] [address] 08/31/2024 8:20 AM EST Office Visit [facility] [address] [place] [address] Payal Myers MD [address] [place] [address] 11/09/2024 3:20 PM EDT Office Visit Rheumatology [place] [address] [facility] [place] [address] Neal Vang MD [address] [place] [address] Pending Results Name Type Priority Associated Diagnoses Date /Time COMPREHENSIVE METABOLIC PANEL Lab Routine 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) History of pancreatitis 06/30/2024 12:45 PM EST Health Maintenance Due Date Last [...] patient or by statute hierarchy) Care Teams Rope Making Machine Operator Relationship Specialty Start Date End Date Payal Myers MD 200 [facility] [place] [address] PCP - General Family Medicine 01/21/24 documented as of this encounter
--- OUTSIDE RECORDS SUMMARY | 2024-07-05 06:40 | External Medical Summary ---
Author Name Unknown Address Unknown Organization K09:[facility] [place] [address] Laboratory Report Ordering Provider Test Date Status MARIELA PANTOJA 06/30/2024 12:45:17 Final Observation Date Value Abnormality Reference (Units ) Status Phosphate 06/30/2024 12:45:17 3.9 2.5-4.8 (m g/dL) Final Performing Location [facility] [place] [address]
--- OUTSIDE RECORDS SUMMARY | 2024-07-05 06:40 | External Medical Summary | Summary of Care ---
Author Name Unknown Organization [facility] Address [address] [place] [address] Phone [phone] Care Team Providers Care Security Infrastructure Engineer Name Role Phone Payal Myers MD Primary Care Provider [phone] Reason for Referral * Evaluate & Treat - Unlimited Visits (Within 10 days (routine)) - Authorized Specialty Diagnoses / Procedures Referred By Miko hopper Referred To Contact Occupational Medicine / Occupational Therapy Diagnoses Need for case management follow-up Still's disease (HCC) Payal Myers MD [address] [place] [address] Phone: tel: fax: Referral ID Status Reason Start Date Expiration Date Visits Requested Visits Authorized [id number] Authorized Specialty Services Required [phone] Question Answer Referral Priority Within 10 days (routine) Where should this appointment be scheduled? [facility] * Evaluate & Treat - Unlimited Visits (Within 10 days (routine)) - Authorized Specialty Diagnoses / Procedures Referred By Conttaryn t Referred To Contact Physical Therapy / Physical Medicine And Rehab Diagnoses Need for case management follow-up Still's disease (HCC) Payal Myers MD [address] [place] [address] Phone: tel: fax: Referral ID Status Reason Start Date Expiration Date Visits Requested Visits Authorized [id number] Authorized Specialty Services Required [phone] Question Answer Referral Priority Within 10 days (routine) Where should this appointment be scheduled? External - [facility] Encounter Details Date Type Department Care Team (Late st Contact Info) Description 06/15/2024 Orders Only Family Practice [place] Maria E Phillip [address] [facility] [place] [address] Payal Myers MD [address] [facility] [place] [address] Need for case management follow-up*; Still's disease (HCC) Allergies Active Allergy Reactions [...] a week). 10 Tablet 2 4 Active Additional Information Patient not taking.Reported on 06/15/2024 B-12 500 MCG Oral Tablet Take 2 [...] 4 06/30/20 24 Active Ergocalciferol 1.25 MG (75864 UT) Oral Capsule (Vitamin D2(Drisdol)) Take 1 [...] differently:2 Tablet Oral TID 06;12;18,400, Reported on 06/15/2024 documented as of this encounter (statuses as [...] money to buy more. Never true 06/15/20 Within the past 12 months, t he [...] Care Team (Late st Contact Info) Description 06/16/2024 3:20 PM EST [facility] [address] [place] [address] Payal Myers MD [address] [facility] [place] [address] 06/22/2024 9:00 AM EST Office Visit [facility] [address] [facility] [place] [address] Payal Myers MD [address] [facility] [place] [address] 08/19/2024 9:00 AM EST Office Visit Nephrology, [facility] [address] [facility] [place] [address] Ant Cardona MD [address] [facility] [place] [address] 08/31/2024 8:20 AM EST Office Visit [facility] [address] [facility] [place] [address] Payal Myers MD [address] [facility] [place] [address] Scheduled Orders Name Type Priority Associated Diagnoses Orde r Schedule CBC Lab STAT Need for case management follow-up Still's disease (HCC) Expected: 06/16/2024 (Approximate), Expires: 06/15/2025 Scheduled Referrals Name Type Priority Associated Diagnoses Order Schedule PHYSICAL THERAPY REFERRAL OP Referral Within 10 days (routine) Need for case management follow-up Still's disease (HCC) Ordered: 06/15/2024 OCCUPATIONAL THERAPY REFERRAL OP Referral Within 10 days (routine) Need for case management follow-up Still's disease (HCC) Ordered: 06/15/2024 Health Maintenance Due Date Last Done Comments [...] as of this encounter Visit Diagnoses Diagnosis Need for case management follow-up- Primary 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, [...] patient or by statute hierarchy) Care Teams Security Infrastructure Engineer Relationship Specialty Start Date End Date Payal Myers MD [address] [facility] [place] [address] PCP - General Family Medicine 01/21/24 documented as of this encounter
--- OUTSIDE RECORDS SUMMARY | 2024-07-05 06:40 | External Medical Summary ---
Author Name Unknown Address Unknown Organization [id number]:[facility] [address] Laboratory Report Ordering Provider Test Date Status MARIELA PANTOJA 06/22/2024 09:39:53 Final Observation Date Value Abnormality Reference (Units ) Status Magnesium 06/22/2024 09:39:53 1.9 1.5-2.6 (m g/dL) Final Performing Location [facility] [place] [address]
--- OUTSIDE RECORDS SUMMARY | 2024-07-05 06:40 | External Medical Summary | Summary of Care ---
Author Name Unknown Organization [facility] [address] [facility] [address] Phone [phone] Care Team Providers Care Webbing Seamer Pound Net Name Role Phone Payal Myers MD Primary Care Provider [phone] Reason for Visit * Reason Comments Outpatient Testing Encounter Details Date Type Department Care Team (Late st Contact Info) Description 06/16/2024 2:30 PM EST Laboratory Laboratory [facility] [place] [address] [place] [address] [facility] [address] [facility] [place] [address] Need for case management follow-up; Still's disease (HCC) Allergies Active Allergy Reactions Criticality Noted Date Comments Sulfasalazine Rash Medium 10/23/2023 documented as of this encounter (statuses as of 06/16/2024) Medications 08/10 1-20 MG-MCG per tablet 1 [...] 4 06/30/20 24 Active Ergocalciferol 1.25 MG (14192 UT) Oral Capsule (Vitamin D2(Drisdol)) Take 1 [...] as of this encounter (statuses as of 06/16/2024) Active Problems Problem Noted Date Diagnosed Date Hypocalcemia 06/07/2024 Isolated proteinuria without specific morphologi c lesion 06/05/2024 Rash and nonspecific skin eruption 06/04/2024 MAS (macrophage activation syndrome) 06/03/2024 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 Anemia of chronic disease 06/02/2024 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 Iron deficiency 02/28/2024 LUDA (generalized anxiety disorder) 10/09/2023 Seronegative inflammatory arthritis 10/09/2023 documented as of this encounter (statuses as of 06/16/2024) Resolved Problems Problem Noted Date Diagnosed Date Resolved Date Ileus 06/08/2024 06/13/2024 Chest pain, non-cardiac 06/04/202405/23 Idiopathic acute pancreatitis 06/04/2024 06/13/2024 Gallstone pancreatitis 06/02/202406/13 documented as of this encounter (statuses as of 06/16/2024) Immunizations Name Administration Dates Next Due COVID-19 [...] Description 06/16/2024 3:20 PM EST Office Visit [facility] [address] [place] [address] [address] Payal Myers MD [address] [place] [address] Arrived 06/22/2024 9:00 AM EST Office Visit [facility] [place] [address] [place] [address] Payal Myers MD [address] [place] [address] 08/19/2024 9:00 AM EST Office Visit Nephrology, 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
--- OUTSIDE RECORDS SUMMARY | 2024-07-05 06:40 | External Medical Summary ---
Author Name Unknown Address Unknown Organization [id number]:[facility] [address] [place] [address] Laboratory Report Ordering Provider Test Date Status MARIELA PANTOJA 06/16/2024 16:51:48 Final Observation Date Value Abnormality Reference (Units ) Status Bacteria identified in Specimen by Culture 06/16/2024 16:51:48 No growth Final Test: Culture, Wound, Superf icial, Aerobic
Specimen Source: Back, Right lower
Specimen Type: Swab
Specimen Date: 06/16/2024 1651
Result Date: 06/18/2024 0902
Result Status: Final result
Resulting Lab: [facility]
[address]
[place] [address]

CULTURE

No growth

null Performing Location [facility] - [address] [place] [id number]
--- OUTSIDE RECORDS SUMMARY | 2024-07-05 06:40 | External Medical Summary ---
Author Name Unknown Address Unknown Organization [id number]:[facility] - [address] [place] [address] Laboratory Report Ordering Provider Test Date Status MARIELA PANTOJA 06/22/2024 09:39:53 Final Observation Date Value Abnormality Reference (Units ) Status Lipase 06/22/2024 09:39:53 408 Above high normal 13 -60 (U/L) Final Performing Location [facility] - [address] [place] [address]
--- OUTSIDE RECORDS SUMMARY | 2024-07-05 06:41 | External Medical Summary ---
Author Name Unknown Address Unknown Organization K09:[facility] [place] [address] Laboratory Report Ordering Provider Test Date Status AMY RAE 06/15/2024 11:56:54 Final Discharge Order Observation Date Value Abnormality Reference (Units ) Status Magnesium 06/15/2024 11:56:54 1.8 1.5-2.6 (m g/dL) Final Performing Location [facility] [place] [address]
--- OUTSIDE RECORDS SUMMARY | 2024-07-05 06:41 | External Medical Summary ---
Author Name Unknown Address Unknown Organization K09:[facility] - [address] [place] [address] Laboratory Report Ordering Provider Test Date Status AMY RAE 06/15/2024 11:56:54 Final Discharge Order Observation Date Value Abnormality Reference (Units ) Status BUN 06/15/2024 11:56:54 8 6-20 (mg/dL) Final Creatinine 06/15/2024 11:56:54 0.3 Below low normal 0.5-1.0 (mg/dL) Final Glomerular filtration rate/1.73 sq M.predicted [Volume Rate/Area] in Serum, Plasma or Blood by Creatinine-based formula (CKD-EPI) 06/15/2024 11:56:54 >90 >=60 (mL/min) Final eGFR is calculated based on the CKD-EPI 2020 equation. Sodium 06/15/2024 11:56:54 139 135-146 (m mol/L) Final Potassium 06/15/2024 11:56:54 4.3 3.5-5.1 (m mol/L) Final Cl 06/15/2024 11:56:54 99 98-107 (mm ol/L) Final CO2 06/15/2024 11:56:54 27 22-32 (mmo l/L) Final Anion gap 06/15/2024 11:56:54 13 7-15 (mmol /L) Final Glucose 06/15/2024 11:56:54 102 70-120 (mg /dL) Final Albumin 06/15/2024 11:56:54 2.7 Below low normal 3.8 -5.0 (g/dL) Final AST (Aspartate aminotransferase) 06/15/2024 11:56:54 97 Above high normal 10-35 (U/L) Final Alk Phos 06/15/2024 11:56:54 85 35-130 (U/ L) Final Bilirubin, Total 06/15/2024 11:56:54 0.2 <=1 .2 (mg/dL) Final Calcium 06/15/2024 11:56:54 8.6 8.4-10.2 ( mg/dL) Final Protein 06/15/2024 11:56:54 5.8 Below low normal 6.0 -8.3 (g/dL) Final ALT (Alanine aminotransferase) 06/15/2024 11:56:54 30 10-35 (U/L) Colin terry Performing Location [facility] [address] [place] [address]
--- OUTSIDE RECORDS SUMMARY | 2024-07-05 06:41 | External Medical Summary | Summary of Care ---
Author Name Unknown Organization [facility] Address [address] [facility] [place] [address] Phone [phone] Care Team Providers Care Granulizing Machine Operator Name Role Phone Payal Myers MD Primary Care Provider [phone] Encounter Details Date Type Department Care Team (Late st Contact Info) Description 06/15/2024 Population Health External Data Unspecified Department Allergies Active Allergy Reactions Criticality Noted Date [...] by mouth in the morning. 4 Active Probiotic 250 MG Oral Capsule TAKE 2 CAPSULE BY MOUTH DAILY 4 Active predniSONE 20 MG Oral Tablet (Deltasone) Take 2 Tablets by mouth daily for 1 day, THEN 1.5 Tablets daily for 5 days, THEN 1 Tablet daily for 5 days, THEN 0.5 Tablets daily for 5 days. 17 Tablet 06/13/2024 2:46 PM EST 4 06/30/20 Active Ergocalciferol 1.25 MG (88987 UT) Oral Capsule (Vitamin D2(Drisdol)) Take 1 [...] in the evening. 120 Tablet 4 Active documented as of this encounter [...] Care Team (Late st Contact Info) Description 06/25/2024 11:40 AM EST Office Visit [facility] [address] [facility] [address] [place], [place] [address] Payal Myers MD [address] [facility] [place], [place] [address] 08/19/2024 9:00 AM EST Office Visit Nephrology, [facility] [address] [facility] [address] [place], [place] [address] Ant Cardona MD [address] [facility] [place], [place] [address] 08/31/2024 8:20 AM EST Office Visit [facility] [address] [facility] [address] [place], [place] [address] Payal Myers MD [address] [facility] [place] [address] Health Maintenance Due Date Last Done Comments [...] Advance Directives occurred with: Patient Care Teams Granulizing Machine Operator Relationship Specialty Start Date End Date Payal Myers MD [address] [facility] [place] [address] PCP - General Family Medicine 01/21/24 documented as of this encounter
--- OUTSIDE RECORDS SUMMARY | 2024-07-05 06:42 | External Medical Summary | Summary of Care ---
Author Name Unknown Organization [facility] Address [address] [place] [address] Phone [phone] Care Team Providers Care Consultative Sales Associate Name Role Phone Payal Myers MD Primary Care Provider [phone] Reason for Referral * Evaluate & Treat - Unlimited Visits (Within 30 days (routine)) - Authorized Specialty Diagnoses / Procedures Referred By Miko hopper Referred To Contact General Surgery Diagnoses Gallstone pancreatitis Manuel Palumbo DO [address] [place] [address] Phone: tel: fax: Referral ID Status Reason Start Date Expiration Date Visits Requested Visits Authorized [id number] Authorized Specialty Services Required 4 [phone] Question Answer Referral Priority Within 30 days (routine) Where should this appointment be scheduled? [facility] What condition is the patient being seen for? General Surgery Conditions What condition is the patient being seen for? Gallbladder Comments gallstone pancreatitis. Surgery deferred inpatient 2/2 acute illness requiring ICU stay Discharge Order Reason for Visit * Auth/Cert Specialty Diagnoses / Procedures Referred By Miko hopper Referred To Contact Diagnoses Arthritis Potential Still's disease Deanna Mandel DO [address] [facility] [place] [address] Phone: tel: fax: Formerly [facility], [facility], [facility] [address] [place] [address] Referral ID Status Reason Start Date Expiration Date Visits Re quested Visits Authorized [id number] Encounter Details Date Type Department Care Team (Late st Contact Info) Description 06/02/2024 7:35 PM EST - 06/13/2024 3:23 PM EST Hospital Encounter [id number] [facility] [place] [address] Deanna Mandel, [address] [place] [address] Serina Mata, [facility] [place] [address] Linwood Carrillo, [facility] [address] [place] [id number] Ga Blanton MD [facility] [place] [address] Giuseppe Myers MD [facility] [place] [address] [place], [place] [id number] Toney Redmond MD [facility] [place], [place] [id number] EKG Report Discharge Disposition: Home - Self Care Allergies Active Allergy Reactions Criticality Noted Date Comments Sulfasalazine Rash Medium 10/23/2023 documented as of this encounter (statuses as of 06/14/2024) Medications 08/10 1-20 MG-MCG per tablet 1 Tablet in the morning. 11/17/19 17 Active FLUoxetine HCl 20 MG Oral Capsule (PROzac)Indica tions:KENYA (generalized anxiety disorder) Take 1 Capsule by [...] days a week). 10 Tablet 2 05/18/20 Active B-12 500 MCG Oral Tablet Take 2 Tablets by mouth in the morning. 05/23/20 Active Probiotic 250 MG Oral Capsule TAKE 2 CAPSULE BY MOUTH DAILY 05/23/20 Active predniSONE 20 MG Oral Tablet (Deltasone) Take 2 Tablets by mouth daily for 1 day, THEN 1.5 Tablets daily for 5 days, THEN 1 Tablet daily for 5 days, THEN 0.5 Tablets daily for 5 days. 17 Tablet 06/13/2024 2:46 PM EST 06/14/20 24 Active Ergocalciferol 1.25 MG (44823 UT) Oral Capsule (Vitamin D2(Drisdol)) Take 1 Capsule by mouth once a week. 12 Capsule 06/13/2024 2:46 PM EST 06/18/20 Active Levothyroxine Sodium 88 MCG Oral Tablet (Levoxyl) Take 1 Tablet by mouth daily first thing in the morning. (at least 30 min prior to breakfast or other meds) 30 Tablet 06/13/2024 2:46 PM EST 06/14/20 Active Omeprazole 20 MG Oral Capsule Delayed Release (PriLOSEC) Take 1 Capsule by mouth in the morning. 30 Capsule 06/13/2024 2:46 PM EST 06/13/20 24 Active Sennosides 8.6 MG Oral Tablet Take 1 Tablet by mouth in the morning. 30 Tablet 06/13/2024 2:46 PM EST 06/14/20 Active Calcitriol 0.5 MCG Oral Capsule (Rocaltrol) Take 1 capsule in the morning and 2 capsules at night. Do not start before June 14, 2024. 60 Capsule 06/13/2024 2:46 PM EST 06/14/20 Active Fenofibrate 160 MG Oral Tablet (Lofibra) Take 1 Tablet by mouth in the morning. 30 Tablet 06/13/2024 2:46 PM EST 06/14/20 Active HYDROmorphone HCl 2 MG Oral Tablet (Dilaudid) Take 1 Tablet by mouth every 4 hours as needed for moderate pain 30 Tablet 06/13/2024 2:46 PM EST 06/13/20 Active Hydrocortisone 2.5 % External Cream Apply to chest and face twice daily for 2 weeks. 20 g 06/13/2024 2:46 PM EST 06/13/20 Active predniSONE 5 MG Oral Tablet (Deltasone) Take 4 Tablets by mouth daily for 14 days, THEN 3 Tablets daily for 14 days, THEN 2 Tablets daily for 14 days, THEN 1 Tablet daily for 14 days. 140 Tablet 04/08/20 024 Discontinued Topiramate 25 MG Oral Tablet (topAMAX) Take 1 Tablet by mouth every night at bedtime for 7 days, THEN 2 Tablets every night at bedtime for 7 days, THEN 3 Tablets every night at bedtime for 7 days, THEN 4 Tablets every night at bedtime. 90 Tablet 3 05/18/20 024 Discontinued Baclofen 5 MG Oral Tablet (Lioresal) Take 1 Tablet by mouth at bedtime as needed for Muscle spasms (for neck and jaw pain). 20 Tablet 3 05/18/20 Discontinued Calcium Citrate 333 MG Oral Tablet Take 2 Tablets by mouth in the morning and 2 Tablets at noon and 2 Tablets in the evening. 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 Anemia of chronic disease 06/02/2024 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 Iron deficiency 02/28/2024 KENYA (generalized anxiety disorder) 10/09/2023 Seronegative inflammatory arthritis 10/09/2023 documented as of this encounter (statuses as of 06/14/2024) Resolved Problems Problem Noted Date Diagnosed Date Resolved Date Ileus 06/08/2024 06/13/2024 Chest pain, non-cardiac 06/04/202405/23 Idiopathic acute pancreatitis 06/04/2024 06/13/2024 Gallstone pancreatitis 06/02/202406/13 documented as of this encounter (statuses as of 06/14/2024) Immunizations Name Administration Dates Next Due COVID-19 [...] Sign Reading Time Taken Comments Blood Pressure 108/71 06/13/2024 10:26 AM EST Pulse 97 06/13/2024 10:26 AM EST Temperature 36.5 C (97.7 F) 06/13/2024 10:[address] Respiratory Rate 18 06/13/2024 10:26 AM EST Oxygen Saturation 93% 06/13/2024 10:26 AM EST Inhaled Oxygen Concentration - - Weight 57.9 kg (127 lb 9.6 oz) 06/13/2024 5:54 A M EST Height 163.6 cm (5' 4.41") 06/13/2024 5:54 AM ES T Body Mass Index 21.63 06/13/2024 5:54 AM EST documented in this [...] 7:41 PM EST Elaine Baldwin RN * Because of a physical, mental, [...] Elaine Hatch RN documented in this encounter Discharge Summaries * Deanna Mandel DO - 06/13/2024 12:05 PM EST Images from the original note were not included. [facility] [address] Admission Date: 06/02/2024 Discharge Date: 06/13/2024 RECOMMENDED TO DO FOR NEXT PROVIDER(S): PCP follow up requested within 3 days with repeat CMP, Mg & Phos. Will need weekly CMP per endocrinology (not ordered). Rheumatology follow up requested (per rheum team at [facility] they will be in contact with her primary sales process manager ; will defer further blood work order to their team). Will need repeat TFTs in 4-6 weeks (not ordered) Surgery referral placed Follow up send out labs as ordered by rheumatology. Nephrology follow up 08/19 REASON(S) FOR MEDICATION CHANGE(S): - start taking Calcitriol 1 tablet in the morning and 2 tablets at night. - start taking Calcium citrate 2 tablets in the morning, 2 tablets at noon and 2 tablets at night. - start taking vit D 1 capsule once per week on . - start using Hydrocortisone cream twice daily on affected area for 2 weeks. - start taking Dilaudid 2 mg every 4 hours as needed for moderate or severe pain. - start taking Levothyroxine 88 mcg daily. - start taking Prilosec 20 mg daily - start taking Senna daily (can hold if having diarrhea) - Prednisone dose changed. Take 40 mg for 1 additional day followed by 30 mg for 5 days, 20 mg for 5 days, and then 10 mg for 5 days. This may be adjusted by your sales process manager. - stop taking Baclofen and Topamax - you may re-start your control on the FIRST day of your next menses. DISPOSITION ON DISCHARGE: Home - Self Care Active Hospital Problems Diagnosis *Principal Diagnosis - Undifferentiated inflammatory polyarthritis (HCC) Hypocalcemia Isolated proteinuria without specific morphologic lesion Rash and nonspecific skin eruption MAS (macrophage activation syndrome) (HCC) Still's disease (HCC) Anemia of chronic disease Resolved Hospital Problems Diagnosis Date Resolved Ileus (HCC) 06/13/2024 Chest pain, non-cardiac 06/13/2024 Idiopathic acute pancreatitis 06/13/2024 Gallstone pancreatitis 06/13/2024 ADMISSION HISTORY & PHYSICAL EXAM (focused): PRESENTING PROBLEM: Joint Pain, Intermittent Fever HPI: Bhavin Wilson is a 29 y/o F with a PMHx as below who presents as a transfer from [facility] with joint pain and intermittent fever. Bhavin is a 29-year-old female who reports joint pain and intermittent fevers for the past year. Patient states that her initial symptom was joint pain, swelling, and stiffness in the small joints ofher hand. This began last fall, and at first was a mild annoyance, and felt like a dull ache". The pain in her hands progressively got worse with each flare attack. She states that these symptoms were intermittent, lasted a couple of weeks, spontaneously resolved, and then returned. She states that she would go a month or so, do well, and then she will have another flare for 4-6 weeks with dull, achy pain rated 7/10. During these episodes, she would report trouble grasping and making a fist.She then states that these symptoms progressed to her lower extremities, with involvement of her feet and ankles, and legs with concurrent swelling. This pain has made it harder for her to ambulate around the house, and she has had trouble sitting down. Patient states that she has trailed several medications (listed below) without relief and currently follows with rheumatology for seronegative inflammatory arthritis. Of note, patient was recently admitted to [facility] from May 20- May 23 with concerns for sepsis. Patient was discharged on prednisone taper, given IV Venofer in the hospital and started on p.o. vitamin B12. 05/29/24: Primary care appointment for recent hospitalization: Patient endorsed continued diffuse joint pain, generalized weakness, and waxing and waning fevers. Patient was febrile in the office to 101.1F and tachycardic in the 130s with continued L sided headache. Lab work after that visit showed LD of 633, corrected calcium of 9.1, transaminitis with AST 171, ALT 54, negative HIV. Iron 32, IBC low at 179, Ferritin 9974, Vitamin b12 borderline low at 331. CBC showed leukopenia of 3.53 (previously 8.69), HgB 10.2 (previously 11.8), Plt 438. CRP elevated at 65, ESR elevated 47. Patient instructed to present to the ED. [facility] ED Course: Patient was afebrile, tachycardic with pulse of 134. Blood pressure soft at 103/59 mmHg. Patient given 1 L fluid bolus. Patient given 5 mg of Compazine and 1g of magnesium for history of Migraines. Lab work-up showed mild hyponatremia 130, elevated LD at 632, HgB of 8.7 (10.2). LFTs showed hypoalbuminemia 2.6, transaminitis with AST 156 (171), ALT 47 (54). Otherwise unremarkable. CT A/P showed simple appearing right renal cyst, mild distention of small-bowel loops, enlarged retroperitoneal and iliac chain lymph nodes, and upper limit sized of normal-sized spleen. Patient was discussed with Rheumatology at [facility], and given patient's history of inflammatory arthritis, Rheumatology suggested transferring to [facility] for potential bone marrow biopsy to evaluate for Still's disease. Patient was evaluated at bedside with patient's mother and partner at bedside. Patient states that she feels lightheaded, and that she feels like she is in a fog. Patient states that this has been constant since she presented to [facility] and that she feels fatigued. Patient endorses diffuse joint pain, rated a sharp 10/10. She localizes this pain to the R knee/posterior Leg and the small joints of her hands bilaterally. Patient denies any neck stiffness, new rashes, shortness of breath, chest pain, shortness of breath, abdominal pain, nausea, vomiting, diarrhea, urinary symptoms, hematochezia. Patient states that she feels some numbness in her L infraorbital region. Denies any tingling in her extremities. Patient states that the last time she had a fever was "a day or two ago". She states that at that time, she experienced diaphoresis and she "sweat the bed". Patient endorses right upper extremity rash that she states has been present since she recently trialed new medication and hasnot changed since admission to [facility]. She denies any itchiness or burning with this rash. Past Medical Hx: -L sided Migraines -Seronegative inflammatory arthritis -KENYA Rheum Pharm Hx: -Amjevita -Cimzia -Sulfasalazine (Caused Diffuse skin rash) Social Hx: Patient wishes to be FULL code. Patient understands the risks/benefits associated with this decision after bedside discussion. If patient was unable to make decisions for themselves, they would wish her partner Howard ([phone]) to make medical decisions for them. Patient lives at home with Howard. The home is one floor, and she states that she has had trouble ambulating for the past couple of months, needing to use a toilet riser and shower stool to complete her activities of daily living.Patient denies any alcohol use or IVDU use. Physical Exam Most Recent Vital Signs: BP: 109 mmHg/61 mmHg (06/02/242219) Pulse: 110 (06/02/240) Resp: 16 (06/02/242219) Temp: 37 C (06/02/242219) Temp Summary: Temp Min: 37 C (98.6 F) Max: 37.2 C (98.9 F) SpO2: 100 % (06/02/242219) O2 flow rate: Supplemental O2 Delivery: Room Air, None (06/02/242219) Constitutional: Pleasant 29 y/o F laying in bed. In NAD. Well developed, well nourished. HEENT: NC/AT. Sclera white, extraocular muscles intact Cardiovascular: Tachycardic rate. Normal rhythm, S1 and S2 present, no murmurs on auscultation Respiratory: Clear to auscultation bilaterally, no wheezes, rhonchi, crackles Abdomen: Soft, non-tender, non-distended, normal bowel sounds Musculoskeletal: No joint deformity Extremities: No lower extremity edema bilaterally Neuro: AAO x3. CN 2-12 in tact. Moves all extremities equally. UE extensor strength 3+/5, otherwisestrength 5/5 in UE and LE bilaterally. No asymmetry noted in facial muscles. Skin: Erythematous rash in right upper extremity. No bruising noted. Peripheral Line Lower;Right Arm 20 Gauge (Active) Number of days: 0 HOSPITAL COURSE (focused): Patient was admitted to the hospital as a direct admission for rheumatology and hematology consults and further work up of her inflammatory polyarthritis. 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 She was followed very closely by the rheumatology team and was continuedon oral steroids. She additionally she received a dose of Canakinumab with premedication to avoid areaction and tolerated this well. While admitted, her hospital course was complicated by pancreatitis (which was felt to possibly be related to gallstone pancreatitis versus a serositis manifestationin the setting of DILE) and ileus. At time of discharge, she still had some abdominal fullness and discomfort but ultimately was tolerating a diet and felt her abdominal discomfort was much improved.She additionally was passing stools. A repeat CT [...] close follow up with her PCP and sales process manager. She was given a surgery referral on discharge for evaluation for possiblecholecystectomy. DAY OF DISCHARGE EXAM: BP 108/71 | Pulse 97 | Temp 36.5 C (97.7 F) (Tympanic) | Resp 18 | Ht 1.636 m (5' 4.41") | Wt 57.9 kg (127 lb 9.6 oz) | SpO2 93% | BMI 21.63 kg/m | BSA 1.62 m Constitutional: Lying in bed in no acute distress, appears comfortable HEENT: normocephalic, atraumatic, KRYSTLE, EOMI Neck: Supple Cardiac: RRR no murmurs Lungs: CTA bilaterally no wheezes rales or rhonchi Abdomen: improved distention, mild TTP, active BS Extremities: non pitting edema Skin: warm, dry, intact, erythematous rash over face, chest, extremities, improving Neuro: A&O x3, no focal neurologic deficits Psych: flat mood and affect Operations & Procedures: bone marrow biopsy Complications: pancreatitis, ileus Significant Lab and Imaging Results: Latest Reference Range & Units 06/13/24 03:40 Triglycerides <=174 mg/dL 251 (H) SODIUM 135 - 146 mmol/L 139 POTASSIUM 3.5 - 5.1 mmol/L 4.3 CHLORIDE 98 - 107 mmol/L 101 CO2 22 - 32 mmol/L 27 BUN 6 - 20 mg/dL 7 CREATININE 0.5 - 1.0 mg/dL 0.3 (L) EGFR >=60 mL/min >90 ANION GAP 7 - 15 mmol/L 11 GLUCOSE 70 - 120 mg/dL 93 CALCIUM 8.4 - 10.2 mg/dL 7.7 (L) Calcium, Ionized 1.13 - 1.32 mmol/L 1.13 Magnesium 1.5 - 2.6 mg/dL 1.9 Phosphorus 2.5 - 4.8 mg/dL 3.5 Protein 6.0 - 8.3 g/dL 5.1 (L) LD <=250 U/L 648 (H) INR 0.8 - 1.2 1.4 (H) Prothrombin Time 11.6 - 15.2 seconds 17.2 (H) aPTT 21 - 38 seconds 76 (H) CBC Rpt ! WBC 4.00 - 10.80 K/uL 12.30 (H) RBC 3.85 - 5.15 M/uL 3.14 HGB 12.0 - 15.3 g/dL 8.6 (L) HCT 36.0 - 45.2 % 26.9 (L) MCV 81.5 - 97.5 fL 85.7 MCH 27.0 - 34.0 pg 27.4 MCHC 32.0 - 36.0 g/dL 32.0 RDW 11.5 - 15.5 % 19.6 PLT 140 - 400 K/uL 274 MPV 6.6 - 11.1 fL 8.5 CBC WITH WBC DIFFERENTIAL Rpt ! Absolute Neutrophils 1.80 - 7.70 K/uL 11.29 (H) Absolute Lymphocytes 1.00 - 4.80 K/ul 0.54 (L) Absolute Monocytes 0.00 - 1.10 K/uL 0.26 Absolute Eosinophils 0.00 - 0.70 K/uL 0.00 Absolute Basophils 0.00 - 0.20 K/uL 0.01 Ferritin 13 - 150 ng/mL 5,506 (H) (H): Data is abnormally high (L): Data is abnormally low !: Data is abnormal Rpt: View report in Results Review for more information CT abd pelvis 06/11 : IMPRESSION 1. Findings compatible with interstitial pancreatitis. 2. Moderate volume ascites. Mild peritoneal thickening may represent peritonitis. 3. Moderate bilateral pleural effusions. US abd 06/05: IMPRESSION 1. Heterogenous appearance of the pancreas with trace fluid about the pancreatic head in keeping with known pancreatitis 2. Cholelithiasis with trace pericholecystic fluid a possibly related to pancreatitis. The gallbladder wall is at the upper limits of normal in thickness negative sonographic Turner's sign. Findings are equivocal for equivocal for acute cholecystitis. Fluid cystitis 3. Hepatic steatosis. Results Pending at Discharge: send-out labs (IL-18 , plasma neopterin, soluble CD163) MEDICATION UPDATES AT DISCHARGE START taking these medications INSTRUCTIONS Calcitriol 0.5 MCG Capsule Commonly known as: Rocaltrol Start taking on: June 14, 2024 Take 1 capsule in the morning and 2 capsules at night. Do not start before June 14, 2024. Calcium Citrate 333 MG Tabs Take 2 Tablets by mouth in the morning and 2 Tablets at noon and 2 Tablets in the evening. Ergocalciferol 44074 UNIT Capsule Commonly known as: Vitamin D2(Drisdol) Start taking on: June 18, 2024 Take 1 Capsule by mouth once a week. Fenofibrate 160 MG Tablet Commonly known as: Lofibra Start taking on: June 14, 2024 Take 1 Tablet by mouth in the morning. Hydrocortisone 2.5 % cream Apply to chest and face twice daily for 2 weeks. HYDROmorphone 2 MG Tablet Commonly known as: Dilaudid Take 1 Tablet by mouth every 4 hours as needed for moderate pain levothyroxine 88 MCG Tablet Commonly known as: Levoxyl Start taking on: June 14, 2024 Take 1 Tablet by mouth daily first thing in the morning. (at least 30 min prior to breakfast or other meds) omeprazole 20 MG Cpdr Commonly known as: PriLOSEC Take 1 Capsule by mouth in the morning. senna Tablet Commonly known as: Senna Lax Start taking on: June 14, 2024 Take 1 Tablet by mouth in the morning. CHANGE how you take these medications INSTRUCTIONS predniSONE 20 MG Tabs Tablet Commonly known as: Deltasone Start taking on: June 14, 2024 What changed: medication strength See the new instructions. Take 2 Tablets by mouth daily for 1 day, THEN 1.5 Tablets daily for 5 days, THEN 1 Tablet daily for5 days, THEN 0.5 Tablets daily for 5 days. CONTINUE taking these medications INSTRUCTIONS B-12 500 MCG Tabs Take 2 Tablets by mouth in the morning. Ferrous Sulfate 325 (65 Fe) MG Tbec Take 1 Tablet by mouth. Every other day. FLUoxetine 20 MG Capsule Commonly known as: PROzac Take 1 Capsule by mouth in the morning. Junel FE 08/10 1-20 MG-MCG per tablet Generic drug: Norethin Jack-Eth Estrad-FE 1 Tablet in the morning. naratriptan 2.5 MG Tablet Commonly known as: Amerge Take 1 Tablet by mouth as needed for Migraine (take 1 tab by mouth at start of headache, may repeatonce after 4 hours; may use up to 2 days a week). Probiotic 250 MG Caps TAKE 2 CAPSULE BY MOUTH DAILY STOP taking these medications Baclofen 5 MG Tabs Commonly known as: Lioresal topiramate 25 MG Tabs Commonly known as: topAMAX SCHEDULED FOLLOW-UP: Future Appointments Appt Date/Time Provider Department 06/25/2024 11:40 AM Payal Myers MD [facility] [place] 08/19/2024 9:00 AM [facility] 8:20 AM Payal Myers MD [facility] Outpatient Follow Up Comprehensive Metabolic Panel Magnesium Phosphorus SURGERY REFERRAL OP Other Information Indwelling Devices: LINES None Vital Signs (last recorded): Most Recent Systolic BP: 108 mmHg (06/13/24 1026) Most Recent Diastolic BP: 71 mmHg (06/13/24 1026) Pulse: 97 (06/13/24 1026) Resp: 18 (06/13/24 1026) Most Recent Temperature: 36.5 C (06/13/24 1026) Weight: 57.9 kg (127 lb 9.6 oz) (06/13/24 0554) SpO2: 93 % (06/13/24 1026) O2 flow rate: 0 L/MIN (06/12/24 0207) Allergies: Sulfasalazine Activity: as tolerated Diet: age appropriate diet Code Status: Full Code Condition on Discharge: good Isolation status: None Cognition: normal HOSPITAL CONSULTS ORDERED: ADULT PHYSICAL THERAPY CONSULT IP ADULT OCCUPATIONAL THERAPY CONSULT IP RHEUMATOLOGY CONSULT IP HEMATOLOGY CONSULT IP CARDIOLOGY CONSULT IP DERMATOLOGY CONSULT IP GASTROENTEROLOGY CONSULT IP NEPHROLOGY CONSULT IP GENERAL SURGERY CONSULT IP ADULT ENDOCRINOLOGY CONSULT IP REFERRING PHYSICIAN: REF: MARLO MATTA PRIMARY CARE PROVIDER: PCP: Payal Myers MD [address] [place] [address] / [place] [address] (office) [phone] (fax) Note: To contact a physician responsible for this patients hospital care, please call [facility] [phone]. I spent a total of 40 minutes coordinating, documenting, and providing care for this patient excluding time spent in the performance of separately billed services. documented in this encounter Discharge Instructions * Discharge Instr - AVS* Deanna Mandel DO - 06/13/2024 11:34 AM EST Discharge Date: 06/13/24 The information below provides you with the instructions and the list of medications you need to betaking following discharge from the hospital. If you have any questions, please ask before leaving. If you have questions after leaving, you can reach us at the numbers below. YOUR HOSPITAL PROVIDERS: Discharging Provider: Deanna Mandel DO Provider Department: Hospital Medicine To reach this Provider Saturday through Saturday (8:00 AM to 4:30 PM) for any questions or test results: Call [phone] For after-hours concerns: Call [phone] and have your provider paged, or the provider alteration worker for the Department of Hospital Medicine paged. Please note, the discharging provider will not be able to provide you with any medications refills.Please discuss these with your primary care provider. Worsening Symptoms: If you have new symptoms, or your symptoms get worse, please contact your Discharge Provider or Primary Care Provider (PCP). If these providers are not available, you can go to your local [facility] or [facility] during their business hours. In an EMERGENCY situation: Call [phone] or go to the nearest emergency room. A BRIEF SUMMARY OF YOUR HOSPITAL STAY: You came to the hospital with: joint pain, intermittent fever, need for hematology / rheumatology evaluation You presented as a direct admission from an outside hospital for the above. You were ultimately seen by multiple specialists and you were found to have an inflammatory polyarthritis and there was concern for a drug induced lupus versus Still's disease. Your hospital course was further complicated by pancreatitis (which was possibly related to gallstones versus your rheumatological disease) and ileus. This improved. After much discussion, you were deemed stable for discharge with close follow up- specifically with rheumatology, your PCP and endocrinology. 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 No YOUR FOLLOW UP APPOINTMENTS: Primary Care Provider Information: PCP: Payal Myers MD [address] [facility] / [place] [address] (office) [phone] (fax) FUTURE APPOINTMENTS: - PCP follow up requested within 3 days - rheumatology follow up requested. You will hear from this department early this upcoming week. - a surgery referral was placed. FUTURE LABS/STUDIES: - CMP, Mg and Phos (in 3 days) and then weekly per endocrinology recommendations (these will need to be ordered by your PCP) - you will need repeat thyroid function studies. This will be ordered by your PCP/specialists. Otherwise, as directed by PCP/specialists MEDICATION CHANGES: - start taking Calcitriol 1 tablet in the morning and 2 tablets at night. - start taking Calcium citrate 2 tablets in the morning, 2 tablets at noon and 2 tablets at night. - start taking vit D 1 capsule once per week on . - start using Hydrocortisone cream twice daily on affected area for 2 weeks. - start taking Dilaudid 2 mg every 4 hours as needed for moderate or severe pain. - start taking Levothyroxine 88 mcg daily. - start taking Prilosec 20 mg daily - start taking Senna daily (can hold if having diarrhea) - Prednisone dose changed. Take 40 mg for 1 additional day followed by 30 mg for 5 days, 20 mg for 5 days, and then 10 mg for 5 days. This may be adjusted by your sales process manager. - stop taking Baclofen and Topamax - you may re-start your control on the FIRST day of your next menses. INSTRUCTIONS: Diet: Normal diet Activity: As tolerated Additional Instructions: - Call your primary care physician or seek medical attention if you develop chest pain, shortness of breath, nausea, vomiting, diarrhea, fevers, chills or any other concerning symptoms. documented in this encounter Progress Notes * Cassidy Barrett MD - 06/12/2024 3:26 PM EST PROGRESS NOTE - [place] [facility] [address] Name: Bhavin Wilson [place] [facility] [place] [facility] Date: 06/12/2024 Time: 3:26 PM PATIENT ASSESSMENT AND FINDINGS: 24 hour: t max 99.7 Wbc 14.6 (from 13.05) Abx d/c today Plan for first dose canakinumab today S: Continues to have abdominal pain diffusely; passing gas and loose stool; denies any arthralgia today; continues to have slight erythematous rash on face, arms improved from prior MUSCULOSKELETAL ROS: 10 pt ros performed PHYSICAL EXAM: Most Recent Vital Signs: Vital Signs Last 24 Hours: Temperature: Most Recent Temperature Av C Min: 36.28 C Max: 38.11 C Pulse: Pulse Av Min: 86 Max: 111 Respirations: Resp Av.3 Min: 18 Max: 34 SpO2: SpO2 Av.5 % Min: 91 % Max: 96 % Systolic BP: Most Recent Systolic BP Av.7 mmHg Min: 102 mmHg Max: 114 mmHg General appearance: normal appearing, no acute distress Skin: decreased rash on face from yesterday HEENT: normal, moist oropharynx, no nasal or oral ulcers Neck: supple, no thyromegaly Lymph nodes: no palpable adenopathy Lungs: normal respiratory effort, comfortable on room air, lungs clear to auscultation b/l Heart: normal heart sounds, normal rate, normal rhythm, Pulses: normal Abdomen: mild abdominal pain diffusely Neurologic: no obvious neurological deficits Extremities: no edema, warm and well perfused Musculoskeletal Exam: - Observation: no obvious joint abnormalities , non pitting edema feet bilaterally - Palpation: mild pain in knees bilaterally - Synovitis: absent - Joint effusions: absent - ROM: intact throughout - Muscle Strength: 5/5 throughout Pathology 06/04/2024: Bone marrow, right posterior iliac crest, aspirate, biopsy, touch imprints: - Hypercellular bone marrow with maturing trilineage hematopoiesis. No significant dysplasia or increase in blasts. No prominent hemophagocytosis. Peripheral blood: - Mild leukopenia with granulocytic left shift; normocytic anemia with mild anisopoikilocytosis == A. Skin, right arm, shave: Very mild epidermal keratinocyte dysmaturation and focal superficial dermal inflammation (see comment) Comment: Hematoxylin and eosin stained sections reveal very mild dysmaturation of keratinocytes in the epidermis. The superficial dermis shows a very mild focal perivascular lymphocytic infiltrate aswell as melanin pigment deposition. Definitive pathogenic fungal hyphal forms are not identified inthe planes of section examined on PAS special stain (controls appropriate). Overt histologic evidence of adult onset Still disease, such as dyskeratotic keratinocytes in the epidermis or mixed/neutrophilic dermal infiltrate, are not identified in the planes of section examined. However, the specimen could represent an early evolving or resolving dermatitis. Clinical correlation is required. A repeat sampling of the rash/lesions with deeper portions of tissue should be considered if there is persistence, recurrence, worsening, failed response to treatment/intervention, or continued clinical uncertainty. LABS: Britney, panca (-) C3 74, c4 14 Crp 142, esr 24 Destiny 1:640, ds dna Ferritin 5686 (9974 on 06/01 --> 6321 06/10) Trig 217 (507 on 06/05 -->230 06/10 Soluble il2 2842 Cxcl9 6283 Latest Reference Range & Units 06/03/24 05:57 IgA 70 - 400 mg/dL 72 IgG 700 - 1,600 mg/dL 1,410 IgM 40 - 230 mg/dL 131 Ebv igg positive Chlamydia, neisseria (-) Latest Reference Range & Units 06/10/24 04:01 INR 0.8 - 1.2 1.7 (H) Prothrombin Time 11.6 - 15.2 seconds 19.9 (H) aPTT 21 - 38 seconds 108 (H) (H): Data is abnormally high Latest Reference Range & Units 06/12/24 05:03 WBC 4.00 - 10.80 K/uL 14.60 (H) RBC 3.85 - 5.15 M/uL 3.27 HGB 12.0 - 15.3 g/dL 8.7 (L) HCT 36.0 - 45.2 % 28.0 (L) MCV 81.5 - 97.5 fL 85.6 MCH 27.0 - 34.0 pg 26.6 MCHC 32.0 - 36.0 g/dL 31.1 RDW 11.5 - 15.5 % 20.0 PLT 140 - 400 K/uL 353 (H): Data is abnormally high (L): Data is abnormally low Latest Reference Range & Units 06/12/24 05:03 SODIUM 135 - 146 mmol/L 134 (L) POTASSIUM 3.5 - 5.1 mmol/L 3.9 CHLORIDE 98 - 107 mmol/L 101 CO2 22 - 32 mmol/L 24 BUN 6 - 20 mg/dL 6 CREATININE 0.5 - 1.0 mg/dL 0.3 (L) (L): Data is abnormally low Latest Reference Range & Units 06/12/24 05:03 Albumin 3.8 - 5.0 g/dL 2.5 (L) AST 10 - 35 U/L 88 (H) ALT 10 - 35 U/L 32 Alkaline Phosphatase 35 - 130 U/L 74 Bilirubin, Total <=1.2 mg/dL 0.2 (L): Data is abnormally low (H): Data is abnormally high RADIOLOGY: Cxr 05/2024: IMPRESSION Mild left basilar opacities may represent atelectasis versus early pneumonia. Query small pleural effusions. Ct abdomen 06/02/2024: Liver: Normal. Gallbladder and biliary ducts: No acute process. Pancreas: Normal. Spleen: Upper limits of normal-sized spleen. Adrenal glands: The adrenal glands appear normal. Kidneys and ureters: Simple appearing right renal cyst. Stomach and bowel: Mild fluid distention of small-bowel loops. Appendix: No evidence of appendicitis. Intraperitoneal space: There is a small volume of free fluid in the pelvis. Vasculature: The abdominal aorta and its major branches appear normal without evidence of aneurysm or stenosis. There are pelvic phleboliths. Lymph nodes: There are extensive prominent retroperitoneal lymph nodes, some of which are borderline enlarged such as a left common iliac node measuring up to 1.1 cm. Prominent bilateral inguinal lymph nodes are noted. Urinary bladder: Unremarkable as visualized. Reproductive: No acute process. Bones/joints: The visualized osseous structures of the abdomen and pelvis appear normal for patient age. Soft tissues: Unremarkable. IMPRESSION IMPRESSION: 1. Borderline enlarged retroperitoneal and iliac chain lymph nodes. Upper limits of normal-sized spleen. 2. Otherwise, incidental findings as above. COMMENTS: Consistent with the [employer]'s Incidental Findings Committee white paper (J Am Nayeli Radiol 2018): Any incidental renal lesion less than 1 cm or classified as too small to characterize, or any incidental cystic renal lesion characterized as simple-appearing, is likely benign. No follow-up imaging is recommended for these lesions per consensus recommendations based on imaging criteria. == EXAM: CT ABD/PELVIS W IV CONTRAST - WO ORAL CONTRAST DATE and TIME: 06/11/2024 11:47 am IMPRESSION 1. Findings compatible with interstitial pancreatitis. 2. Moderate volume ascites. Mild peritoneal thickening may represent peritonitis. 3. Moderate bilateral pleural effusions. -- EXAM EXAM: CT ABD/PELVIS W IV CONTRAST - WO ORAL CONTRAST DATE and TIME: 06/11/2024 11:47 am HISTORY CLINICAL INFORMATION: abd pain, recent ileus and gallstone pancreatitis TECHNIQUE Oral Contrast: None. IV Contrast: Intravenous contrast was administered COMPARISON XR ABDOMEN 1 VIEW, ACC: [id number], dated 2024-06-10 15:52:19; CT ABD_PELVIS W IV CONTRAST - WO ORAL CONTRAST, ACC: [id number], dated 2024-06-02 15:28:33 FINDINGS LINES AND DEVICES: None LOWER CHEST:Moderate bilateral pleural effusions and bibasilar atelectasis. The heart is normal in size without pericardial effusion. ABDOMEN/PELVIS: LIVER: The liver is enlarged measuring 21.7 cm in length. There is no focal suspicious abnormality. GALLBLADDER: Unremarkable CT appearance of the gallbladder. BILE DUCTS: No intrahepatic or extrahepatic bile duct dilatation. PANCREAS: The pancreas, particularly the pancreatic head appears slightly enlarged and edematous compatible with interstitial pancreatitis. SPLEEN: Normal in size without focal lesion. ADRENALS: Normal. KIDNEYS/URETERS: The kidneys are normal in size without hydronephrosis or suspicious mass. BLADDER: Unremarkable. REPRODUCTIVE ORGANS: Unremarkable. BOWEL: The small and large bowel is normal in caliber without wall thickening or associated inflammation. The appendix is normal. LYMPH NODES: There are no enlarged or suspicious abdominal or pelvic lymph nodes. VESSELS: The aorta and the origins of its branches are patent and normal in caliber. The portal venous system is grossly patent. PERITONEUM/RETROPERITONEUM: Moderate ascites. No organized collection or pneumoperitoneum. Mild peritoneal thickening. ABDOMINAL WALL/SOFT TISSUES: Mild subcutaneous edema. BONES: Unremarkable. IMPRESSION IMPRESSION 1. Findings compatible with interstitial pancreatitis. 2. Moderate volume ascites. Mild peritoneal thickening may represent peritonitis. 3. Moderate bilateral pleural effusions. IMPRESSION/RECOMMENDATION: 29 year old female with hx of migraines, ken[place], seronegative RA, and priorreactions to cimzia, sulfazalazine, adalimumab. Presents on 06/02 with several weeks of fever, joint pain, headaches, fatrigue; with elevated ferritin, LDH and mild elevation in transaminase levels. On presentation she was subsequently found to have elevated triglycerides, haptoglobin, ESR, CRP andprotein/cr ratio, as well as decreased C3. Patient was started on anakinra and steroids due to concern for aosd with evolving mas/secondary hlh yet developed possible drug rash. Currently on prednisone. Course notable for acute pancreatitis currently on antibiotics, troponin leak, new onset hypothyroidism, possible drug rash 2/2 to anakinra, subnephrotic range proteinuria, symptomatic hypocalcemia, ileus, and recurrent fevers Overall ddx is broad--- yet favor MAS/HLH 2/2 to drug induced lupus. Though bone marrow biopsy was negative for hemophagocytosis there can be false negative and her h score elevated (score 229 with a96-98% probability of hlh with elevated ferritin, triglycerides, ast, hepatomegaly, elevated il2 and cxcl9). She showed some clinical response in inflammatory markers and resolved fever on anakinra (y et developed a drug rash and this was stopped). Possible that secondary mas/hlh could be caused by underlying autoimmune process-- favor underlying issue is drug induced lupus or tnf inhibitor drug-induced sle-- given that her fever and rash started a few weeks after getting adalimumab and she has positive ds dna, positive destiny, positive histone ab. Will trial her with canakinumab to help with MASand fever, fortunately il1b will also not worsen any infection risk. Also on ddx is serum sickness 2/2 to tnf is also a consideration with fever/arthralgia and time course weeks after adalilmumab; AOSD is a concern given her fever, arthrlagia and rash history, lymphadenopathy, elevated ferritin and transaminitis and she meets Dorcas criteria yet clinically what may not point in this favor is that fever and occasional rash after medication trigger cimizia, sulfazalzine rather than typical evanescent rash and quotidian fever seen in aosd; finally underlying infectious etiology for fevers given her gallstone pancreatitis diagnosis vs pna-- currently on day 3 of abx with plan for cholecystectomy. RHEUMATOLOGY CONCURRENT CARE SUGGESTION(S): Continue PO prednisone 40 mg daily now day 3, taper by 10 mg every 5 days Today will give one dose 140 mg cankinumab (il1b inhibitor) for MAS, with premedication with 50 mg iv benadryl and 40 mg iv solumederol 30 minutes prior to medication F/u send-out labs (IL-18 , plasma neopterin, soluble CD163; continue to trend daily CBC with diff, CMP, Liver enzymes, Ferritin, LDH. No longer need to trend ESR, CRP, coags, D-dimer, or complements. R/o underlying infectious etiology; management of gallstone pancreatitis as per primary team and surgery, cholecystectomy planned for early next week Follow up: F/u with Dr. Malcolm, would favor starting il6 or ger inhibitor as an outpatient for her RA once infection clears as this can also treat a working dx of stills. Will likely need bendaryl/steroid premedication prior to future biologic meds administration ATTESTATION: Patient seen and discussed with Dr. Mojica Rheumatology Attending. Cosigned by Lissett Gerard MD at 06/12/2024 3:46 PM EST Associated attestation - Lissett Gerard MD - 06/12/2024 3:46 PM EST I saw and evaluated the patient today. I have reviewed the resident/fellow physician note and agree. Agree with plan for canakinumab (IL-1) inhibitor with longer mechanism of action for MAS. The diagnosis of MAS is fairly clear based on her lab findings (particularly elevated CXCL9 and IL-18 with high ferritin, low ESR, cytopenias). However, the underlying cause of the MAS is still not certain. Favor drug- induced lupus (DILE) given her DESTINY, dsDNA, histone ab, and low C3. Question whether the pancreatitis could be a serositis manifestation in the setting of DILE. Could also be unrelated from gallstone disease. Patient desires to be discharged as soon as medically able. I am ok with this, but will need to have close outpatient follow up. If fevers, rash, arthralgia not controlled with IL-1 inhibition alone,may need to add Hanane (good success in blocking interferon gamma pathway which is prominent in MAS) vs IL-6i. We will communicate with her outpatient sales process manager. I spent a total of 55 minutes coordinating, documenting, and providing care for this patient excluding time spent in the performance of separately billed services or time spent by another provider/QHP. Lissett Gerard MD, [facility] Department of Rheumatology * Deanna Mandel, DO - 06/12/2024 1:53 PM EST Images from the original note were not included. [facility]530/[facility] INTERVAL HISTORY: Overnight, no acute events. This AM, patient states that she continues to feel better. Has some difficulty ambulating because of joint pains. She is moving her bowels. Feels that her abdomen is a bit less swollen. No nausea or vomiting. Still gets some cramping in the abdomen but is tolerating her meals well. Objective Physical Exam Most Recent Vital Signs: BP: 111 mmHg/72 mmHg (06/12/24 105) Pulse: 106 (06/12/241052) Resp: 28 (RN notified) (06/12/241052) Temp: 37 C (06/12/241052) Temp Summary: Temp Min: 36.3 C (97.3 F) Max: 37.6 C (99.7 F) SpO2: 93 % (06/12/241052) O2 flow rate: 0 L/MIN (06/11/241999) Supplemental O2 Delivery: Room Air, None (06/12/241052) Constitutional: Lying in bed in no acute distress, appears comfortable HEENT: normocephalic, atraumatic, KRYSTLE, EOMI Neck: Supple Cardiac: tachycardiac, no murmurs Lungs: CTA bilaterally no wheezes rales or rhonchi Abdomen: slightly distended but improved abdomen, mild TTP, active BS Extremities: non pitting edema Skin: warm, dry, intact Neuro: A&O x3, no focal neurologic deficits Psych: somewhat flat mood and affect Peripheral Line Lower;Right Arm 22 Gauge (Active) Number of days: 2 STUDIES: Encounter Orders Labs and other studies reviewed with pertinent findings noted below: Triglycerides 260 Na 134 Cr 0.3 Calcium 7.6 Phos 1.8 INR 1.5 WBC 14.60 Hgb 8.7 Assessment and Plan IMPRESSION : Principal Problem: Undifferentiated inflammatory polyarthritis (HCC) Active Problems: Anemia of chronic disease 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 * DIFFERENTIAL AND PLAN: Bhavin Wilson is a 29 year old F who is admitted for undifferentiated inflammatory polyarthritis, severe hypocalcemia and pancreatitis. Undifferentiated inflammatory polyarthritis Concern for Stills disease versus drug induced lupus - rheumatology, hematology and dermatology consulted this admission. - continue PO prednisone 40 mg daily, and taper by 10 every 5 days. Rheum to give Canakinumab todaywith pre-medication as outlined. Will observe in hospital for any reactions to this medication. - BMB done 06/04 - no evidence of HLH - derm following for rash Severe hypocalcemia in setting of vit D deficiency, stable - continue monitoring daily - continue with supplementation. Calcitriol 0.5 mcg AM and 1 mcg HS. Continue calcium citrate 630 mg TID. Continue vit D 50K weekly for 3 months. Continue vit D 2000 units daily. - monitor on telemetry Gallstone pancreatitis Concern for possible infection? Ileus, resolving - patient is tolerating regular diet. Has been moving her bowels well. Still has some mild distention and CT shows some interstitial pancreatitis but discussed this with GI and it was felt CT may show this for 4-6 weeks. - no concern for infection at this time ; it is felt low grade fevers may be due to her rheumatological condition. Observe off abx at this time. 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 STOP Topamax due to increased risk of pancreatitis. - she can re-start her control on the onset of her next menses. .Misc: - Diet: regular diet - VTE ppx: heparin - GI ppx: omeprazole - Bowel regimen: miralax, senna - Lines/Devices: PIV - PT/OT: consulted - Dispo: keep in med surg - Code: full - plan is hopefully for DC to home tomorrow with close OP follow up. PHARMACOLOGIC VTE PROPHYLAXIS: hEParin CODE STATUS: Full Code EXPECTED DISCHARGE DATE: 06/13/2024 I spent a total of 55 minutes coordinating, documenting, and providing care for this patient excluding time spent in the performance of separately billed services or time spent by another provider/QHP. * Scott Marie MD - 06/11/2024 3:26 PM EST PROGRESS NOTE - Dermatology [address] [address] Name: Bhavin Wilson [place] [facility] [place] [facility] Date: 06/11/2024 Time: 3:26 PM SUBJECTIVE: Patient seen and examined at bedside today. Notes stable rash though pruritus on face. Still endorses daily fevers, loss of appetite, fatigue, joint pain. 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 SKIN: Detailed exam of hair, face including lids and lips, oral cavity, neck, chest, abdomen, back,right and left upper extremities, right and left lower extremities, and nails and digits completed and are normal except: A. erythematous macules and papules coalescing into larger patches/plaques on extremities, upper chest and face. ASSESSMENT AND PLAN: 1. Rash differential diagnosis - adult onset stills diease, drug induced lupus, drug related rash - recommend Hydrocortisone 2.5 % cream BID for 2 weeks - Discussed possible side effects with inappropriate use including: skin thinning, dyspigmentation,striae - patient to transition to cankinumab - if any further flare up with cankinumab - cross reactivity with anakinra may provide evidence of drug related rash Follow-up: will follow Patient was discussed with Dr. Dwight Domínguez Cosigned by Jose Domínguez MD at 06/11/2024 5:11 PM EST Associated attestation - Jose Domínguez MD - 06/11/2024 5:11 PM EST I did not see the patient, but I have reviewed the resident/fellow physician documentation and was readily available on date of service. * Cassidy Barrett MD - 06/11/2024 11:33 AM EST PROGRESS NOTE - [place]umat[place] [facility] [place] [address] Name: Bhavin Wilson [place] [facility] [place] [facility] Date: 06/11/2024 Time: 11:33 AM PATIENT ASSESSMENT AND FINDINGS: 24 hour: t max 38.4 WBC 13.05 (10.12) Xray abdomen yesterday negative Ct scan today with interstitial pancreatitis, cecily effusions, mild peritoneal thickening which may represent peritonitis Prednisone 40 mg day 2 (from 40 mg solumedrol) Currently on day 3 of vancomycin, cefepime C/o of bloating, passing gas and stool; continues to have arthralgia wrists, fingers; knees though slightly less than yesterday; edema in lower extremities. MUSCULOSKELETAL ROS: 10 pt ros performed PHYSICAL EXAM: Most Recent Vital Signs: Vital Signs Last 24 Hours: Temperature: Most Recent Temperature Av.8 C Min: 37.22 C Max: 38.39 C Pulse: Pulse Av.4 Min: 82 Max: 127 Respirations: Resp Av.6 Min: 18 Max: 24 SpO2: SpO2 Av.4 % Min: 92 % Max: 97 % Systolic BP: Most Recent Systolic BP Av.6 mmHg Min: 104 mmHg Max: 115 mmHg General appearance: normal appearing, no acute distress Skin: decreased rash on face from yesterday HEENT: normal, moist oropharynx, no nasal or oral ulcers Neck: supple, no thyromegaly Lymph nodes: no palpable adenopathy Lungs: normal respiratory effort, comfortable on room air, lungs clear to auscultation b/l Heart: normal heart sounds, normal rate, normal rhythm, Pulses: normal Abdomen: soft, normal bowel sounds, no tenderness Neurologic: no obvious neurological deficits Extremities: no edema, warm and well perfused Musculoskeletal Exam: - Observation: no obvious joint abnormalities , non pitting edema feet bilaterally - Palpation: mild pain in knees bilaterally - Synovitis: absent - Joint effusions: absent - ROM: intact throughout - Muscle Strength: 5/5 throughout Pathology 06/04/2024: Bone marrow, right posterior iliac crest, aspirate, biopsy, touch imprints: - Hypercellular bone marrow with maturing trilineage hematopoiesis. No significant dysplasia or increase in blasts. No prominent hemophagocytosis. Peripheral blood: - Mild leukopenia with granulocytic left shift; normocytic anemia with mild anisopoikilocytosis == A. Skin, right arm, shave: Very mild epidermal keratinocyte dysmaturation and focal superficial dermal inflammation (see comment) Comment: Hematoxylin and eosin stained sections reveal very mild dysmaturation of keratinocytes in the epidermis. The superficial dermis shows a very mild focal perivascular lymphocytic infiltrate aswell as melanin pigment deposition. Definitive pathogenic fungal hyphal forms are not identified inthe planes of section examined on PAS special stain (controls appropriate). Overt histologic evidence of adult onset Still disease, such as dyskeratotic keratinocytes in the epidermis or mixed/neutrophilic dermal infiltrate, are not identified in the planes of section examined. However, the specimen could represent an early evolving or resolving dermatitis. Clinical correlation is required. A repeat sampling of the rash/lesions with deeper portions of tissue should be considered if there is persistence, recurrence, worsening, failed response to treatment/intervention, or continued clinical uncertainty. LABS: Britney, panca (-) C3 74, c4 14 Crp 142, esr 24 Destiny 1:640, ds dna Ferritin 5686 (9974 on 06/01 --> 6321 06/10) Trig 217 (507 on 06/05 -->230 06/10 Soluble il2 2842 Cxcl9 6283 Latest Reference Range & Units 06/03/24 05:57 IgA 70 - 400 mg/dL 72 IgG 700 - 1,600 mg/dL 1,410 IgM 40 - 230 mg/dL 131 Ebv igg positive Chlamydia, neisseria (-) Latest Reference Range & Units 06/10/24 04:01 INR 0.8 - 1.2 1.7 (H) Prothrombin Time 11.6 - 15.2 seconds 19.9 (H) aPTT 21 - 38 seconds 108 (H) (H): Data is abnormally high Latest Reference Range & Units 06/11/24 04:35 WBC 4.00 - 10.80 K/uL 13.05 (H) RBC 3.85 - 5.15 M/uL 3.04 HGB 12.0 - 15.3 g/dL 8.2 (L) HCT 36.0 - 45.2 % 26.1 (L) MCV 81.5 - 97.5 fL 85.9 MCH 27.0 - 34.0 pg 27.0 MCHC 32.0 - 36.0 g/dL 31.4 RDW 11.5 - 15.5 % 20.4 PLT 140 - 400 K/uL 305 (H): Data is abnormally high (L): Data is abnormally low Labs reviewed as indicated below: Latest Reference Range & Units 06/11/24 04:35 SODIUM 135 - 146 mmol/L 136 POTASSIUM 3.5 - 5.1 mmol/L 4.1 CHLORIDE 98 - 107 mmol/L 104 CO2 22 - 32 mmol/L 23 BUN 6 - 20 mg/dL 6 CREATININE 0.5 - 1.0 mg/dL 0.3 (L) EGFR >=60 mL/min >90 (L): Data is abnormally low Latest Reference Range & Units 06/11/24 04:35 Albumin 3.8 - 5.0 g/dL 2.4 (L) AST 10 - 35 U/L 92 (H) ALT 10 - 35 U/L 33 Alkaline Phosphatase 35 - 130 U/L 66 Bilirubin, Total <=1.2 mg/dL 0.3 (L): Data is abnormally low (H): Data is abnormally high RADIOLOGY: Cxr 05/2024: IMPRESSION Mild left basilar opacities may represent atelectasis versus early pneumonia. Query small pleural effusions. Ct abdomen 06/02/2024: Liver: Normal. Gallbladder and biliary ducts: No acute process. Pancreas: Normal. Spleen: Upper limits of normal-sized spleen. Adrenal glands: The adrenal glands appear normal. Kidneys and ureters: Simple appearing right renal cyst. Stomach and bowel: Mild fluid distention of small-bowel loops. Appendix: No evidence of appendicitis. Intraperitoneal space: There is a small volume of free fluid in the pelvis. Vasculature: The abdominal aorta and its major branches appear normal without evidence of aneurysm or stenosis. There are pelvic phleboliths. Lymph nodes: There are extensive prominent retroperitoneal lymph nodes, some of which are borderline enlarged such as a left common iliac node measuring up to 1.1 cm. Prominent bilateral inguinal lymph nodes are noted. Urinary bladder: Unremarkable as visualized. Reproductive: No acute process. Bones/joints: The visualized osseous structures of the abdomen and pelvis appear normal for patient age. Soft tissues: Unremarkable. IMPRESSION IMPRESSION: 1. Borderline enlarged retroperitoneal and iliac chain lymph nodes. Upper limits of normal-sized spleen. 2. Otherwise, incidental findings as above. COMMENTS: Consistent with the [employer]'s Incidental Findings Committee white paper (J Am Nayeli Radiol 2018): Any incidental renal lesion less than 1 cm or classified as too small to characterize, or any incidental cystic renal lesion characterized as simple-appearing, is likely benign. No follow-up imaging is recommended for these lesions per consensus recommendations based on imaging criteria. == EXAM: CT ABD/PELVIS W IV CONTRAST - WO ORAL CONTRAST DATE and TIME: 06/11/2024 11:47 am IMPRESSION 1. Findings compatible with interstitial pancreatitis. 2. Moderate volume ascites. Mild peritoneal thickening may represent peritonitis. 3. Moderate bilateral pleural effusions. -- EXAM EXAM: CT ABD/PELVIS W IV CONTRAST - WO ORAL CONTRAST DATE and TIME: 06/11/2024 11:47 am HISTORY CLINICAL INFORMATION: abd pain, recent ileus and gallstone pancreatitis TECHNIQUE Oral Contrast: None. IV Contrast: Intravenous contrast was administered COMPARISON XR ABDOMEN 1 VIEW, ACC: [id number], dated 2024-06-10 15:52:19; CT ABD_PELVIS W IV CONTRAST - WO ORAL CONTRAST, ACC: [id number], dated 2024-06-02 15:28:33 FINDINGS LINES AND DEVICES: None LOWER CHEST:Moderate bilateral pleural effusions and bibasilar atelectasis. The heart is normal in size without pericardial effusion. ABDOMEN/PELVIS: LIVER: The liver is enlarged measuring 21.7 cm in length. There is no focal suspicious abnormality. GALLBLADDER: Unremarkable CT appearance of the gallbladder. BILE DUCTS: No intrahepatic or extrahepatic bile duct dilatation. PANCREAS: The pancreas, particularly the pancreatic head appears slightly enlarged and edematous compatible with interstitial pancreatitis. SPLEEN: Normal in size without focal lesion. ADRENALS: Normal. KIDNEYS/URETERS: The kidneys are normal in size without hydronephrosis or suspicious mass. BLADDER: Unremarkable. REPRODUCTIVE ORGANS: Unremarkable. BOWEL: The small and large bowel is normal in caliber without wall thickening or associated inflammation. The appendix is normal. LYMPH NODES: There are no enlarged or suspicious abdominal or pelvic lymph nodes. VESSELS: The aorta and the origins of its branches are patent and normal in caliber. The portal venous system is grossly patent. PERITONEUM/RETROPERITONEUM: Moderate ascites. No organized collection or pneumoperitoneum. Mild peritoneal thickening. ABDOMINAL WALL/SOFT TISSUES: Mild subcutaneous edema. BONES: Unremarkable. IMPRESSION IMPRESSION 1. Findings compatible with interstitial pancreatitis. 2. Moderate volume ascites. Mild peritoneal thickening may represent peritonitis. 3. Moderate bilateral pleural effusions. IMPRESSION/RECOMMENDATION: 29 year old female with hx of migraines, [place], seronegative RA, and priorreactions to cimzia, sulfazalazine, adalimumab. Presents on 06/02 with several weeks of fever, joint pain, headaches, fatrigue; with elevated ferritin, LDH and mild elevation in transaminase levels. On presentation she was subsequently found to have elevated triglycerides, haptoglobin, ESR, CRP andprotein/cr ratio, as well as decreased C3. Patient was started on anakinra and steroids due to concern for aosd with evolving mas/secondary hlh yet developed possible drug rash. Currently on prednisone. Course notable for acute pancreatitis currently on antibiotics, troponin leak, new onset hypothyroidism, possible drug rash 2/2 to anakinra, subnephrotic range proteinuria, symptomatic hypocalcemia, ileus, and recurrent fevers Overall ddx is broad--- yet favor MAS/HLH 2/2 to drug induced lupus. Though bone marrow biopsy was negative for hemophagocytosis there can be false negative and her h score 229 with a 96-98% probability of hlh with elevated ferritin, triglycerides, ast, hepatomegaly, elevated il2 and cxcl9. She showed some some response to her inflammatory markers and resolved fever on anakinra (yet developed a drug rash and this was stopped). Possible that secondary mas/hlh could be caused by underlying autoimmune process-- favor underlying issue is drug induced lupus or tnf inhibitor drug-induced sle-- given that her fever and rash started a few weeks after getting adalimumab and she has positive ds dna, p ositive destiny, positive histone ab. Will trial her with canakinumab to help with MAS process and fever, fortunately will also not worsen any infection risk. Also on ddx is serum sickness 2/2 to tnf is also a consideration with fever/arthralgia and time course weeks after adalilmumab; AOSD is a concern given her fever, arthrlagia and rash history, lymphadenopathy, elevated ferritin and transaminitis and she meets Dorcas criteria yet clinically what may not point in this favor is that fever and occasional rash after medication trigger cimizia, sulfazalzine rather than typical evanescent rash and quotidian fever seen in aosd; finally underlying infectious etiology for fevers given her gallstone pancreatitis diagnosis vs pna-- currently on day 3 of abx with plan for cholecystectomy. RHEUMATOLOGY CONCURRENT CARE SUGGESTION(S): Continue PO prednisone 40 mg daily now day 2, taper by 10 mg every 5 days Give one dose 140 mg cankinumab (il1b inhibitor) for MAS, with premedication with 50 mg iv benadryland 40 mg iv solumederol 30 minutes prior to medication F/u send-out labs (IL-18 , plasma neopterin, soluble CD163; continue to trend daily CBC with diff, CMP, Liver enzymes, Ferritin, LDH. No longer need to trend ESR, CRP, coags, D-dimer, or complements. R/o underlying infectious etiology; management of gallstone pancreatitis as per primary team and surgery, cholecystectomy planned for early next week Follow up: F/u with Dr. Malcolm, would favor starting il6 as an outpatient for her RA once infection clears as this can also treat a working dx of stills. Will likely need bendaryl/steroid premedication prior to future biologic meds administration ATTESTATION: Patient seen and discussed with Dr. Mojica Rheumatology Attending. Cosigned by Polly Mojica MD at 06/11/2024 3:33 PM EST Associated attestation - Polly Mojica MD - 06/11/2024 3:33 PM EST I saw and evaluated the patient today. I have reviewed the resident/fellow physician note and agree. Agree with canakinumab with pre-medication as outlined. Lower suspicion for infectious process andlikely related to auto- inflammatory condition. Will update Dr. Gerard who will be taking over rheumat ology consult service as of tomorrow. * Deanna Mandel DO - 06/11/2024 10:33 AM EST Images from the original note were not included. [facility] B530/A INTERVAL HISTORY: Overnight, patient was febrile 101.1. This AM, patient is doing okay. She states that she feels slowly improved. She still feels her abdomen is tense and bloated. She has been passing gas but did not have a bowel movement yesterday. She denies nausea or vomiting and has been tolerating a regular diet. Does not feel short of breath or have chest pain. Notes that when she had a fever yesterday she was found to have a temp in one of herears but not in the other? Additionally, has some headaches which she thinks is because her medications were stopped. No pain with urination or new skin rashes. Objective Physical Exam Most Recent Vital Signs: BP: 115 mmHg/77 mmHg (06/11/24 1017) Pulse: 127 (alerted Monisha Del Rio RN of elevated heart rate) (06/11/241016) Resp: 18 (06/11/241016) Temp: 37.22 C (06/11/247) Temp Summary: Temp Min: 37.2 C (99 F) Max: 38.4 C (101.1 F) SpO2: 94 % (06/11/24 1017) O2 flow rate: 0 L/MIN (06/11/24 1017) Supplemental O2 Delivery: Room Air, None (06/11/24 1017) Constitutional: Lying in bed in no acute distress, appears comfortable HEENT: normocephalic, atraumatic, KRYSTLE, EOMI Neck: Supple Cardiac: tachycardiac, no murmurs Lungs: CTA bilaterally no wheezes rales or rhonchi Abdomen: mildly distended, firm, active BS, non tender to palpation Extremities: non pitting edema Skin: warm, dry, intact, flushed face Neuro: A&O x3, no focal neurologic deficits Psych: normal mood and affect Peripheral Line Lower;Right Arm 22 Gauge (Active) Number of days: 1 STUDIES: Encounter Orders Labs and other studies reviewed with pertinent findings noted below: Triglycerides 217 Na 136 K 4.1 Cr 0.3 Phos 1.7 WBC 13.05 Assessment and Plan IMPRESSION : Principal Problem: Undifferentiated inflammatory polyarthritis (HCC) Active Problems: Anemia of chronic disease MAS (macrophage activation syndrome) (HCC) Still's disease (HCC) Rash Chest pain, non-cardiac Idiopathic acute pancreatitis Gallstone pancreatitis Isolated proteinuria without specific morphologic lesion Hypocalcemia Ileus (HCC) Resolved Problems: * No resolved hospital problems. * DIFFERENTIAL AND PLAN: Bhavin Wilson is a 29 year old F who is admitted for undifferentiated inflammatory polyarthritis, severe hypocalcemia and pancreatitis. Undifferentiated inflammatory polyarthritis Concern for Stills disease versus drug induced lupus - rheumatology, hematology and dermatology consulted this admission. - continue PO prednisone 40 mg daily, and taper by 10 every 5 days. Rheum team will consider starting Rilonacept. - BMB done 06/04 - no evidence of HLH - derm following for rash Severe hypocalcemia in setting of vit D deficiency, stable - continue monitoring Q8H for now - continue with supplementation. Calcitriol increased to 0.5 mcg BID. Continue calcium citrate 630 mg TID. Continue vit D 50K weekly for 3 months. - monitor on telemetry Gallstone pancreatitis Concern for possible infection? Ileus, resolving - patient is tolerating regular diet. She last had a BM 06/09. Bowel regimen started 06/10. KUB yesterday was reassuring. She is passing gas and would like her to have BM today. Discussed with surgery, no plans for inpatient cholecystectomy at this time. - she did have fever of 101.1 yesterday. No clear source at this time. There was concern for possible PNA initially but fairly low suspicion for this now. Given abd is still tense and she had known gallstone pancreatitis, will check CT abd pelvis. De-escalate to CTX. If CT is negative, I feel her fevers may be due to her underlying rheumatological condition as there is no obvious source. - follow cultures closely. .Misc: - Diet: regular diet - VTE ppx: heparin - GI ppx: omeprazole - Bowel regimen: miralax, senna - Lines/Devices: PIV - PT/OT: consulted - Dispo: keep in med surg - Code: full PHARMACOLOGIC VTE PROPHYLAXIS: hEParin CODE STATUS: Full Code EXPECTED DISCHARGE DATE: 06/13/2024 I spent a total of 56 minutes coordinating, documenting, and providing care for this patient excluding time spent in the performance of separately billed services or time spent by another provider/QHP. * Deanna Mandel DO - 06/10/2024 1:56 PM EST Images from the original note were not included. [facility] B[facility]/A INTERVAL HISTORY: Overnight, no acute events. This AM, patient is doing well. She is lying in bed. Feels okay. Still feels her abdomen is tight but states that she is tolerating food okay and is having bowel movements. Denies nausea or vomiting.No chest pain or shortness of breath. Objective Physical Exam Most Recent Vital Signs: BP: 113 mmHg/75 mmHg (06/10/24 1000) Pulse: 120 (06/10/24 1000) Resp: 28 (06/10/24 1029) Temp: 38 C (06/10/24 1000) Temp Summary: Temp Min: 36.5 C (97.7 F) Max: 38 C (100.4 F) SpO2: 98 % (06/10/24 1000) O2 flow rate: Supplemental O2 Delivery: Nasal Cannula (06/10/24 1000) Constitutional: Lying in bed in no acute distress, appears comfortable HEENT: normocephalic, atraumatic, KRYSTLE, EOMI, flushed face Neck: Supple Cardiac: tachycardiac, no murmurs Lungs: CTA bilaterally no wheezes rales or rhonchi Abdomen: tense, mildly distended, active BS, no TTP Extremities: no edema Skin: warm, dry, intact Neuro: A&O x3, no focal neurologic deficits Psych: normal mood and affect Peripheral Line Lower;Right Arm 20 Gauge (Active) Number of days: 8 Peripheral Line Left;Lower Arm 20 Gauge (Active) Number of days: 4 Peripheral Line Left Arm 22 Gauge (Active) Number of days: 1 STUDIES: Encounter Orders Labs and other studies reviewed with pertinent findings noted below: K 3.2 Calcium 6.5 Phos 1.7 LD 695 Hgb 9.1 Assessment and Plan IMPRESSION : Principal Problem: Undifferentiated inflammatory polyarthritis (HCC) Active Problems: Anemia of chronic disease MAS (macrophage activation syndrome) (HCC) Still's disease (HCC) Rash Chest pain, non-cardiac Idiopathic acute pancreatitis Gallstone pancreatitis Isolated proteinuria without specific morphologic lesion Hypocalcemia Ileus (HCC) Resolved Problems: * No resolved hospital problems. * DIFFERENTIAL AND PLAN: Bhavin Wilson is a 29 year old F who is admitted for undifferentiated inflammatory polyarthritis, severe hypocalcemia and pancreatitis. Undifferentiated inflammatory polyarthritis Concern for Stills disease - rheumatology, hematology and dermatology consulted this admission. - continue on oral steroid as per rheumatology. Follow workup per them. - BMB done 06/04 - no evidence of HLH - derm following for rash Severe hypocalcemia, stable - continue monitoring Q8H for now - continue with supplementation - monitor on telemetry Gallstone pancreatitis Ileus, resolving - advance to regular diet today - continues to tolerate diet and has bowel movements - can check KUB tomorrow - plan for alexa early next week Concern for possible pneumonia - check MRSA swab. If negative, stop Vanc. Can likely transition to oral abx tomorrow. - wean oxygen as able. May need amb ox prior to discharge. .Misc: - Diet: regular diet - VTE ppx: heparin - GI ppx: omeprazole - Bowel regimen: miralax, senna. Last BM 06/09 - Lines/Devices: PIV - PT/OT: consulted - Dispo: keep in med surg - Code: full PHARMACOLOGIC VTE PROPHYLAXIS: hEParin CODE STATUS: Full Code EXPECTED DISCHARGE DATE: 06/11/2024 I spent a total of 57 minutes coordinating, documenting, and providing care for this patient excluding time spent in the performance of separately billed services or time spent by another provider/QHP. * Cassidy Barrett MD - 06/10/2024 1:16 PM EST PROGRESS NOTE - [place] [facility] [id number] Name: Bhavin Wilson [facility] [facility] Date: 06/10/2024 Time: 1:16 PM PATIENT ASSESSMENT AND FINDINGS: 24 hour: t max 101.8 yesterday, 38 today Prednisone 40 mg today (from 40 mg solumedrol yesterday) Currently on day 2 of vancomycin, cefepime C/o of bloating, passing gas and stool; continues to have arthralgia wrists, fingers; knees; edema in lower extremities. MUSCULOSKELETAL ROS: 10 pt ros performed PHYSICAL EXAM: Most Recent Vital Signs: Vital Signs Last 24 Hours: Temperature: Most Recent Temperature Av.9 C Min: 36.5 C Max: 38 C Pulse: Pulse Av.5 Min: 89 Max: 120 Respirations: Resp Av.6 Min: 17 Max: 34 SpO2: SpO2 Av.7 % Min: 90 % Max: 100 % Systolic BP: Most Recent Systolic BP Av mmHg Min: 102 mmHg Max: 113 mmHg General appearance: normal appearing, no acute distress Skin: erythematous rash on face, arms back HEENT: normal, moist oropharynx, no nasal or oral ulcers Neck: supple, no thyromegaly Lymph nodes: no palpable adenopathy Lungs: normal respiratory effort, comfortable on room air, lungs clear to auscultation b/l Heart: normal heart sounds, normal rate, normal rhythm, Pulses: normal Abdomen: soft, normal bowel sounds, no tenderness Neurologic: no obvious neurological deficits Extremities: no edema, warm and well perfused Musculoskeletal Exam: - Observation: no obvious joint abnormalities , non pitting edema feet bilaterally - Palpation: arthralgia in wrists, fingers, knees - Synovitis: absent - Joint effusions: absent - ROM: intact throughout - Muscle Strength: 5/5 throughout Pathology 06/04/2024: Bone marrow, right posterior iliac crest, aspirate, biopsy, touch imprints: - Hypercellular bone marrow with maturing trilineage hematopoiesis. No significant dysplasia or increase in blasts. No prominent hemophagocytosis. Peripheral blood: - Mild leukopenia with granulocytic left shift; normocytic anemia with mild anisopoikilocytosis == A. Skin, right arm, shave: Very mild epidermal keratinocyte dysmaturation and focal superficial dermal inflammation (see comment) Comment: Hematoxylin and eosin stained sections reveal very mild dysmaturation of keratinocytes in the epidermis. The superficial dermis shows a very mild focal perivascular lymphocytic infiltrate aswell as melanin pigment deposition. Definitive pathogenic fungal hyphal forms are not identified inthe planes of section examined on PAS special stain (controls appropriate). Overt histologic evidence of adult onset Still disease, such as dyskeratotic keratinocytes in the epidermis or mixed/neutrophilic dermal infiltrate, are not identified in the planes of section examined. However, the specimen could represent an early evolving or resolving dermatitis. Clinical correlation is required. A repeat sampling of the rash/lesions with deeper portions of tissue should be considered if there is persistence, recurrence, worsening, failed response to treatment/intervention, or continued clinical uncertainty. LABS: Britney, panca (-) C3 74, c4 14 Crp 142, esr 24 Destiny 1:640, ds dna Ferritin 6321 Trig 230 Latest Reference Range & Units 06/03/24 05:57 IgA 70 - 400 mg/dL 72 IgG 700 - 1,600 mg/dL 1,410 IgM 40 - 230 mg/dL 131 Ebv igg positive Chlamydia, neisseria (-) Latest Reference Range & Units 06/10/24 04:01 INR 0.8 - 1.2 1.7 (H) Prothrombin Time 11.6 - 15.2 seconds 19.9 (H) aPTT 21 - 38 seconds 108 (H) (H): Data is abnormally high Latest Reference Range & Units 06/10/24 04:01 Albumin 3.8 - 5.0 g/dL 2.6 (L) AST 10 - 35 U/L 120 (H) ALT 10 - 35 U/L 39 (H) Alkaline Phosphatase 35 - 130 U/L 65 Bilirubin, Total <=1.2 mg/dL 0.3 (L): Data is abnormally low (H): Data is abnormally high Latest Reference Range & Units 06/10/24 04:01 WBC 4.00 - 10.80 K/uL 10.12 RBC 3.85 - 5.15 M/uL 3.39 HGB 12.0 - 15.3 g/dL 9.1 (L) HCT 36.0 - 45.2 % 28.8 (L) MCV 81.5 - 97.5 fL 85.0 MCH 27.0 - 34.0 pg 26.8 MCHC 32.0 - 36.0 g/dL 31.6 RDW 11.5 - 15.5 % 20.0 PLT 140 - 400 K/uL 305 (L): Data is abnormally low Labs reviewed as indicated below: Latest Reference Range & Units 06/10/24 04:01 SODIUM 135 - 146 mmol/L 139 POTASSIUM 3.5 - 5.1 mmol/L 3.2 (L) CHLORIDE 98 - 107 mmol/L 107 CO2 22 - 32 mmol/L 22 BUN 6 - 20 mg/dL 7 CREATININE 0.5 - 1.0 mg/dL 0.3 (L) (L): Data is abnormally low RADIOLOGY: Cxr 05/2024: IMPRESSION Mild left basilar opacities may represent atelectasis versus early pneumonia. Query small pleural effusions. Ct abdomen 06/02/2024: Liver: Normal. Gallbladder and biliary ducts: No acute process. Pancreas: Normal. Spleen: Upper limits of normal-sized spleen. Adrenal glands: The adrenal glands appear normal. Kidneys and ureters: Simple appearing right renal cyst. Stomach and bowel: Mild fluid distention of small-bowel loops. Appendix: No evidence of appendicitis. Intraperitoneal space: There is a small volume of free fluid in the pelvis. Vasculature: The abdominal aorta and its major branches appear normal without evidence of aneurysm or stenosis. There are pelvic phleboliths. Lymph nodes: There are extensive prominent retroperitoneal lymph nodes, some of which are borderline enlarged such as a left common iliac node measuring up to 1.1 cm. Prominent bilateral inguinal lymph nodes are noted. Urinary bladder: Unremarkable as visualized. Reproductive: No acute process. Bones/joints: The visualized osseous structures of the abdomen and pelvis appear normal for patient age. Soft tissues: Unremarkable. IMPRESSION IMPRESSION: 1. Borderline enlarged retroperitoneal and iliac chain lymph nodes. Upper limits of normal-sized spleen. 2. Otherwise, incidental findings as above. COMMENTS: Consistent with the [employer]'s Incidental Findings Committee white paper (J Am Nayeli Radiol 2018): Any incidental renal lesion less than 1 cm or classified as too small to characterize, or any incidental cystic renal lesion characterized as simple-appearing, is likely benign. No follow-up imaging is recommended for these lesions per consensus recommendations based on imaging criteria. IMPRESSION/RECOMMENDATION: 29 year old female with hx of migraines, k[place], seronegative RA, and priorreactions to cimzia, sulfazalazine, adalimumab. Presents on 06/02 with several week of fever, jointpain, headaches, fatrigue ; with elevated ferritin, LDH and mild elevation in transaminase levels. On presentation she was subsequently found to have elevated triglycerides, haptoglobin, ESR, CRP andprotein/cr ratio, as well as decreased C3. Patient was started on anakinra steroids due to concern for aosd with evolving mas/secondary hlh yet developed possible drug rash. Currently on prednisone. Course notable for acute pancreatitis currently on antibiotics, troponin leak, new onset hypothyroidism, possible drug rash 2/2 to anakinra, subnephrotic range proteinuria, symptomatic hypocalcemia, ileus, and recurrent fevers Overall ddx is broad--- including tnf inhibitor drug-induced sle is a concern given that her fever and rash started a few weeks after getting adalimumab, she has positive ds dna, positive destiny; serum sickness 2/2 to tnf is also a consideration with fever/arthralgia and time course weeks after adalilmumab; AOSD is a concern given her fever, arthrlagia and rash history, lymphadenopathy, elevated ferritin and transaminitis; HLH is a consideration though less likely b marrow biopsy was negative on 06/04 and low h score; and finally underlying infectious etiology for fevers given her gallstone pancreatitis diagnosis vs pna though notable no leukocytosis and negative cultures; she is currently on day 2 of abx with plan for cholecystectomy. She likely has underlying seronegative ra, and likely would need premedication in the the future prior to starting medications RHEUMATOLOGY CONCURRENT CARE SUGGESTION(S): Continue PO prednisone 40 mg daily, taper by 10 mg every 5 days consideration of start Rilonacept (320 mg once, then 160 mg weekly), if worsening fevers F/u send-out labs (IL-18, CXCL9, plasma neopterin, soluble CD163, soluble IL-2R) continue to trend daily CBC with diff, CMP, Liver enzymes, Ferritin, LDH. No longer need to trend ESR, CRP, coags, D-dimer, or complements. R/o underlying infectious etiology; management of gallstone pancreatitis as per primary team and surgery, cholecystectomy planned for early next week ATTESTATION: Patient seen and discussed with Dr. Velez , Rheumatology Attending. Cosigned by Conrad Velez III, MD at 06/10/2024 4:37 PM EST Associated attestation - Conrad Velez III, MD - 06/10/2024 4:37 PM EST I saw and evaluated the patient today. I have reviewed the resident/fellow physician note and agree.Pt having more lower abdominal pain and distention when sitting in chair. Better lying down. No n/v. Poor PO intake. Low grade fever persists. Rash minimal currently but still apparent. Pt feels she is getting different advice from different providers and is confused. Did discuss diagnostic uncertainties. Infection begin ruled out. ?active cholecystitis/pancreatitis, surgery being considered. ?adult stills. I favor. ?drug indueced lupus from anti TNF. Off drug a month. Discussed with pharmacy. P ossible rash all along associated with Stills and not drug rashes. Consider canakinumab one time dose to suppress adults stills and help with joint pain and all over inflammed state. Dr Mojica back on service for rheumatology tomorrow. Conrad Velez III, MD * Scott Marie MD - 06/09/2024 5:47 PM EST PROGRESS NOTE - [place] [facility] [place] [address] Name: Bhavin Wilson [place] [facility] [place] [facility] Date: 06/09/2024 Time: 5:47 PM SUBJECTIVE: Patient seen and examined at bedside today. No acute distress. NG tube removed. Rash slightly improved. Rash remains asymptomatic. ALLERGIES: Sulfasalazine OBJECTIVE: Vital Signs Last 24 Hours: Most Recent Systolic BP Av.7 mmHg Min: 105 mmHg Max: 118 mmHg Most Recent Temperature Av.6 C Min: 36.5 C Max: 38.78 C Pulse Av.5 Min: 89 Max: 138 Resp Av.4 Min: 16 Max: 18 SpO2 Av.5 % Min: 95 % Max: 100 % PHYSICAL EXAM: GEN: Healthy, alert, no distress, appears oriented, pleasant, and cooperative. SKIN: Detailed exam of hair, face including lids and lips, oral cavity, neck, chest, abdomen, back,right and left upper extremities, right and left lower extremities, and nails and digits completed and are normal except: A. Subtle erythematous macules and papules coalescing into larger patches/plaques on extremities, upper chest and face. LABS: Labs reviewed as indicated below: DESTINY + dsDNA + Histone antibody + Ferritin 6,776 Shave bx 06/04/2024: A. Skin, right arm, shave: Very mild epidermal keratinocyte dysmaturation and focal superficial dermal inflammation (see comment) ASSESSMENT AND PLAN: 1. Rash - differential diagnosis includes autoimmune connective tissue (Adult Onset Stills dx, Acute Lupus,Drug Induced Lupus) vs drug related rash (antibiotics, anakinra) - elected to not pursue punch bx as rash is slighlty improved and clinically suspected to be 2/2 anakinra by rheumatology - anakinra has been discontinued, patient is on solumedrol - immunosuppression may mask extent of rash and distort histological findings, thus will continue to clinically monitor and pursue punch biopsy if warranted. Follow-up: will follow Patient was seen and examined with Dr. Jose Domínguez * Toney Redmond MD - 06/09/2024 4:06 PM EST Images from the original note were not included. [facility] INTERVAL HISTORY: Patient was seen and examined in the morning. She was in the bed. Denied any complaints. Abdomen was still pretty distended tells me that she is having bowel movements which are liquidy of varying amount. Overnight patient was febrile. Infective workup was sent and patient is started on broad-spectrum IV antibiotics. Later afternoon I talked with patient rasheed Shin and updated about patient condition, Objective Physical Exam Most Recent Vital Signs: BP: 105 mmHg/63 mmHg (06/09/241350) Pulse: 105 (06/09/241350) Resp: 18 (06/09/241350) Temp: 36.5 C (06/09/241350) Temp Summary: Temp Min: 36.5 C (97.7 F) Max: 38.8 C (101.8 F) SpO2: 100 % (06/09/241350) O2 flow rate: Supplemental O2 Delivery: Room Air, None (06/09/241350) General: Patient not in distress HEENT: normocephalic, atraumatic Heart: Regular rate and rhythm; S1 and S2 present; no murmurs, rubs or gallops. Bilateral radial and PT pulses 2+ Pulmonary: Lungs clear to auscultation bilaterally; no wheezes, rhonchi or crackles. Abdomen: Tense, distended. Mild tenderness to palpation in left upper and lower quadrants. No tenderness to palpation in right upper or right lower quadrants. No rebound or guarding, no suprapubic tenderness MSK: Gross motor function intact, no tenderness to palpation over MCP joints bilaterally Extremities: 1+ nonpitting edema to bilateral LE up to knees, consistent from prior Skin: [place], warm, continued lacy pink rash over bilateral posterior arms and left cheek, no significant changes from yesterday Neuro: AAOx3. No gross motor or sensory deficits. Negative Chvostek sign Psych: Appropriate mood and affect Peripheral Line Lower;Right Arm 20 Gauge (Active) Number of days: 7 Peripheral Line Left;Lower Arm 20 Gauge (Active) Number of days: 3 Peripheral Line Left Arm 22 Gauge (Active) Number of days: 0 STUDIES: Encounter Orders Labs and other studies reviewed with pertinent findings noted below: Latest Reference Range & Units 06/09/24 05:01 06/09/24 07:59 06/09/24 11:43 06/09/24 15:28 SODIUM 135 - 146 mmol/L 135 POTASSIUM 3.5 - 5.1 mmol/L 3.6 CHLORIDE 98 - 107 mmol/L 102 CO2 22 - 32 mmol/L 20 (L) BUN 6 - 20 mg/dL 6 CREATININE 0.5 - 1.0 mg/dL 0.4 (L) EGFR >=60 mL/min >90 ANION GAP 7 - 15 mmol/L 13 GLUCOSE 70 - 120 mg/dL 74 CALCIUM 8.4 - 10.2 mg/dL 6.7 (L) Calcium, Ionized 1.13 - 1.32 mmol/L 0.97 (L) 0.91 (L) 1.05 (L) 1.04 (L) Magnesium 1.5 - 2.6 mg/dL 2.1 Phosphorus 2.5 - 4.8 mg/dL 2.2 (L) Protein 6.0 - 8.3 g/dL 5.6 (L) LD <=250 U/L 727 (H) (L): Data is abnormally low (H): Data is abnormally high Latest Reference Range & Units 06/09/24 05:01 CBC Rpt ! WBC 4.00 - 10.80 K/uL 5.98 RBC 3.85 - 5.15 M/uL 3.73 HGB 12.0 - 15.3 g/dL 9.9 (L) HCT 36.0 - 45.2 % 32.2 (L) MCV 81.5 - 97.5 fL 86.3 MCH 27.0 - 34.0 pg 26.5 MCHC 32.0 - 36.0 g/dL 30.7 RDW 11.5 - 15.5 % 19.9 PLT 140 - 400 K/uL 323 MPV 6.6 - 11.1 fL 8.7 CBC WITH WBC DIFFERENTIAL Rpt ! Absolute Neutrophils 1.80 - 7.70 K/uL 5.98 Ferritin 13 - 150 ng/mL 6,776 (H) !: Data is abnormal (L): Data is abnormally low (H): Data is abnormally high Rpt: View report in Results Review for more information Assessment and Plan IMPRESSION : Principal Problem: Undifferentiated inflammatory polyarthritis (HCC) Active Problems: Anemia of chronic disease MAS (macrophage activation syndrome) (HCC) Still's disease (HCC) Rash Chest pain, non-cardiac Idiopathic acute pancreatitis Gallstone pancreatitis Isolated proteinuria without specific morphologic lesion Hypocalcemia Ileus (HCC) Resolved Problems: * No resolved hospital problems. * DIFFERENTIAL AND PLAN: Pt is a 29 year old female with hx as above admitted for undifferentiated inflammatory polyarthritis, severe hypocalcemia, SOB, pancreatitis. She was initially admitted in Med/Surg unit after PCP noticed abnormal lab work of elevated CRP, ESR, ferritin of approximately 10,000, LD of 633, and mild transaminitis. Patient was transferred to [facility] for potential bone marrow biopsy to evaluate for Still's disease (completed June 04) . Hospital course has been complicated by gallstone pancreatitis and ileus. After severe hypocalcemia , she was transferred to ICU for calcium gtt on 05/06/2024. Patient has been evaluated by general surgery for illeus, gallstone pancreatitis. Rheumatology evaluation done to evaluate for inflammatory disorder. After her calcium being relatively in safer level she is downgraded to medicine floor and being monitored for electrolyte and replete prn. For illeus/gallstone pancreatitis she was treated conservatively with NG tube decompression she hassince been removed. Was given clear liquid diet and is advanced to full liquid diet now. Surgery will only perform cholecystectomy outpatient/ Overnight on 06/08/2024 patient was febrile and infective workup was sent. There was suspicion of early pneumonia in chest x-ray . Urine analysis with 3-5 WBC not much impressive of infection. Was started on broad-spectrum antibiotics. Febrile overnight- Chest x-ray suspicious of pneumonia Infective workup sent Started vancomycin and cefepime Continue to monitor Severe hypocalcemia-was on ICU for calcium GTT since been downgraded Q8H calcium monitoring Supplement oral for mild hypocalcemia, IV if severe and symptomatic If severely decreased will need to monitor QTC Continue with tree sapper QTC Avoid QTC prolonging medication Inflammatory disorder to rule out SLE Was treated with anti TNF for negative polyarthritis Rheumatology on board-was on IV steroid now on oral steroid to be tapered Hematology was on board-bone marrow biopsy done and 06/04-no evidence of HLH Dermatology evaluation done previously for rash Cytoplasmic DESTINY positive, DsDNA postive, Positive histone antibodies which can be due to SLE or overlap syndrome Change to IV Solu-Medrol to oral prednisolone-every 5 days Bhavesh as per Rheumatology Ileus NG tube removed yesterday Advance diet from clear liquid to full liquid diet Surgery was on board but signed of Monitor bowel movement Gallstone pancreatitis Tolerating clear liquid diet Abdomen distended but not want standard Advance diet to full liquid diet Continue to monitor Patient will only get gallstone surgery outpatient as per surgical consultation Severely low vitamin-D- continue vitamin D supplement Proteinuria- nephrology was on board, to follow outpatient if biopsy requrie PHARMACOLOGIC VTE PROPHYLAXIS: hEParin CODE STATUS: Full Code EXPECTED DISCHARGE DATE: 06/11/2024 I spent a total of 60 minutes coordinating, documenting, and providing care for this patient excluding time spent in the performance of separately billed services or time spent by another provider/QHP. * Tiffanie Fisher MD - 06/09/2024 8:46 AM EST PROGRESS NOTE - [place] [facility] [place] [address] Name: Bhavin Wilson [place] [facility] [place] [facility] Date: 06/09/2024 Time: 4:35 PM PATIENT ASSESSMENT AND FINDINGS: Patient febrile to 101.8 overnight, infectious workup sent, and started on vanc and cefepime. She has been off anakinra since 06/06 and is still on solumedrol 40 mg IV daily. She denies new shortnessof breath, cough, chest pain, worsening abdominal pain, urinary frequency, or dysuria. Her rash is about the same as prior -- possibly slightly improved. Joint pain/stiffness are about the same a prior. She is still feeling very weak and needs assistance to stand from sitting. She notes some musclepain/tenderness. MUSCULOSKELETAL ROS: . Abnormal: joint pain and weak muscles OTHER ROS: . Constitutional: fatigue and fevers . Gastrointestinal: abdominal pain and distension . Skin: rash All other ROS negative. PHYSICAL EXAM: Most Recent Vital Signs: BP: 105 mmHg/63 mmHg (06/09/24 135) Pulse: 105 (06/09/24 1351) Resp: 18 (06/09/241350) Temp: 36.5 C (06/09/24 135) Temp Summary: Temp Min: 36.5 C (97.7 F) Max: 38.8 C (101.8 F) SpO2: 100 % (06/09/241350) O2 flow rate: Supplemental O2 Delivery: Room Air, None (06/09/24 135) Vital Signs Last 24 Hours: Temperature: Most Recent Temperature Av.6 C Min: 36.5 C Max: 38.78 C Pulse: Pulse Av.6 Min: 88 Max: 138 Respirations: Resp Av.4 Min: 16 Max: 18 SpO2: SpO2 Av.4 % Min: 95 % Max: 100 % Systolic BP: Most Recent Systolic BP Av.1 mmHg Min: 99 mmHg Max: 118 mmHg General: alert and no distress HENT: normocephalic, external ears normal Eye Exam: conjunctiva are pink and non-injected, sclera clear Heart: regular rate & rhythm, no murmur, and no gallops Lungs: clear to auscultation , no rales, wheezes or rhonchi Abdomen: abdomen soft, no rebound or guarding, distended, and mild tenderness to deep palpation Extremities: no clubbing, no cyanosis, non-pitting edema of lower extremities about the same as prior Skin: erythematous macular rash on L>R cheek and chin and lacy reticulated rash on RUE, similar to previous Musculoskeletal Exam: . Range of Motion: decreased flexion of fingers LABS: Labs reviewed as indicated below: CBC Lab results within last 7 days (see chart for full results) Units 06/09/24 0501 06/08/24205606/08/24 0522 WBC K/uL 5.98 6.34 3.78* HGB g/dL 9.9* 8.7* 8.7* HCT % 32.2* 26.9* 27.8* PLT K/uL 323 286 306 Lab results within last 7 days (see chart for full results) Units 06/09/24 0501 06/08/24 0522 06/07/24 0554 Triglycerides mg/dL 265* 312* 357* Lab results within last 7 days (see chart for full results) Units 06/09/24 0759 06/06/24 0512 06/05/24 0551 06/04/24 0543 06/03/24 0557 Prothrombin Time seconds 19.4* < > 13.0 < > 13.6 aPTT seconds 83* < > 36 < > 40* INR 1.6* < > 1.0 < > 1.0 D-Dimer ug/mL FEU -- -- 4.09* < > 2.70* Fibrinogen mg/dL -- -- -- -- 389 < > = values in this interval not displayed. Lab results within last 7 days (see chart for full results) Units 06/09/24 0501 06/09/24 0500 06/08/24 0522 06/07/24 0554 06/06/24 0512 06/05/24 0551 Complement C3 mg/dL 74* -- 58* 60* -- -- Complement C4 mg/dL 14 -- 10 10 -- -- CRP (Inflammatory Marker) mg/L 142* -- 58* 37* 31* 32* ESR mm/hour -- 24* 9 14 35* 32* Ferritin ng/mL 6,776* -- 5,969* 6,328* 6,885* 7,613* LD U/L 727* -- 503* 581* 611* 532* Lab results within last 7 days (see chart for full results) Units 06/05/24 0858 Antinuclear Antibody Interpretation, IFA Positive* Antinuclear Antibody Titer, IFA Titer 1:640 Double Stranded DNA (dsDNA) Antibody Interpretation Positive* Double Stranded DNA (dsDNA) Antibody Titer Titer 1:10 Histone Antibodies 4.1 High Lab results within last 7 days (see chart for full results) Units 06/09/24 0501 06/08/24 0522 AST U/L 147* 129* ALT U/L 46* 35 Albumin g/dL 2.9* 2.7* Alkaline Phosphatase U/L 76 72 Bilirubin, Total mg/dL 0.3 0.3 Protein g/dL 5.6* 4.8* Lab results within last 7 days (see chart for full results) Units 06/08/24 2122 06/04/24 2318 Color, Urine Yellow Yellow Clarity, Urine Clear Clear Glucose, Urine mg/dL Negative Negative Bilirubin, Urine Negative Negative Specific [place], Urine 1.025 1.042* Blood, Urine Moderate* Moderate* pH, Urine Units 6.5 6.0 Protein, Urine mg/dL 30* 30* Protein, Random Urine mg/dL -- 99 Urobilinogen, Urine mg/dL Normal Normal Nitrite, Urine Negative Negative Esterase, Urine Negative Negative RBC, Urine /HPF 3-5* 30-49* WBC, Urine /HPF 3-5* 0-2 Bacteria, Urine /HPF 101-150* 0-25 Creatinine, Random Urine mg/dL -- 86 IMAGING: XR CHEST 1 VIEW Result Date: 06/09/2024 IMPRESSION Mild left basilar opacities may represent atelectasis versus early pneumonia. Query small pleural effusions. IMPRESSION/RECOMMENDATION: 29 year old female with concern for drug-induced lupus vs AOSD with evolving MAS vs SLE vs serum sickness or serum sickness like reaction. Her course has been complicated by acute pancreatitis, troponin leak and possible drug rash (likely from anakinra), subnephrotic range proteinuria, symptomatic hypocalcemia, ileus, and recurrent fevers. Suspect that recurrent fevers are related to underling autoimmune condition rather than infection. Will continue to treat with solumedrol (Anakinra discontinued), and would like to start Rilonacept, pending pharmacy approval. Suspect pancreatitis is unrelated to the inflammatory rheumatic process and secondary to gallstones. Will continue to closely monitor labs as below RHEUMATOLOGY CONCURRENT CARE SUGGESTION(S): Continue PO prednisone 40 mg daily, taper by 10 mg every 5 days Plan to start Rilonacept (320 mg once, then 160 mg weekly), pending pharmacy approval. Non-formulary request form already sent to pharmacy. Continue to trend daily CBC with diff, CMP, Liver enzymes, Ferritin, LDH. No longer need to trend ESR, CRP, coags, D-dimer, or complements. Continue to follow Soluble Il- 2 receptor, (sCD25 or Angelia-2R), CXCL9 , Immunoglobulin levels; IgG, Aand M, and send-out labs (IL-18, CXCL9, plasma neopterin, soluble CD163, soluble IL-2R) Continue to follow blood cultures Management of gallstone pancreatitis as per primary team and surgery, cholecystectomy planned for early next week Cosigned by Conrad Velez III, MD at 06/09/2024 4:59 PM EST Associated attestation - Conrad Velez III, MD - 06/09/2024 4:59 PM EST I saw and evaluated the patient today. I have reviewed the resident/fellow physician note and agree. Fevers have recurred off anakinra. Rash fading. Good candidate for alternative IL - 1 inhibitor rilonacept for what appears to be adult stills disease. Conrad Velez III, MD * Greg Mendez MD - 06/09/2024 5:04 AM EST PROGRESS NOTE - Trauma/Emergency Surgery [facility] [place] [address] Name: Bhavin Wilson [place] [facility] [place] [facility] Date: 06/09/2024 Time: 9:31 AM DIAGNOSIS: pancreatitis, cholelithiasis SUBJECTIVE: Patient was transferred out of ICU yesterday after correction of severe hypocalcemia. Spiked fever overnight and primary team started abx and fever work up. Patient resting comfortably in bed. No major complaints this morning OBJECTIVE: Most Recent Vital Signs: BP: 118 mmHg/64 mmHg (06/09/24734) Pulse: 97 (06/09/24734) Resp: 17 (06/09/24734) Temp: 37.11 C (06/09/24734) Temp Summary: Temp Min: 37 C (98.6 F) Max: 38.8 C (101.8 F) SpO2: 96 % (06/09/24734) O2 flow rate: 0 Supplemental O2 Delivery: Room Air, None (06/09/24734) Vital Signs Last 24 Hours: Systolic BP: Most Recent Systolic BP Av.9 mmHg Min: 94 mmHg Max: 118 mmHg Temperature: Most Recent Temperature Av.7 C Min: 37 C Max: 38.78 C Pulse: Pulse Av.2 Min: 88 Max: 138 Respirations: Resp Av.3 Min: 16 Max: 18 SpO2: SpO2 Av.5 % Min: 95 % Max: 100 % In / Out Past 24 Hrs: Intake/Output Summary (Last 24 hours) at 06/09/2024 0931 Last data filed at 06/09/2024 0848 Gross per 24 hour Intake 891.69 ml Output 2450 ml Net -1558.31 ml Physical Exam: Gen: no acute distress Neck: supple CV: RRR Chest: nonlabored breathing Abdomen: soft, disetnded, tympanic, no tenderness Neuro: AOX3 Extremities: warm, well perfused LABS: Labs reviewed as indicated below: BMP Lab results within last 7 days (see chart for full results) Units 06/09/24 0501 06/08/24205606/08/24 0522 06/07/24 0554 SODIUM mmol/L 135 134* 134* 137 POTASSIUM mmol/L 3.6 3.7 3.6 3.8 CHLORIDE mmol/L 102 103 103 106 CO2 mmol/L 20* 22 20* 20* BUN mg/dL 6 5* 4* 6 CREATININE mg/dL 0.4* 0.4* 0.3* 0.3* Phosphorus mg/dL 2.2* -- 2.2* 2.3* Magnesium mg/dL 2.1 -- 2.4 2.2 CBC Lab results within last 7 days (see chart for full results) Units 06/09/24 05006/08/24205606/08/24 0522 06/07/24 0554 06/06/24 0512 06/05/24 0552 HGB g/dL 9.9* 8.7* 8.7* 8.7* 9.4* 9.0* HCT % 32.2* 26.9* 27.8* 28.1* 31.0* 29.0* WBC K/uL 5.98 6.34 3.78* 2.63* 3.28* 3.12* PLT K/uL 323 286 306 287 301 319 Neutrophils % % 100.0* -- 84.6* 91.0* 79.8* 79.2* Monocytes % % -- -- 1.9 3.0 3.4 2.9 Eosinophils % % -- -- 0.0 -- 0.0 0.0 HEPATIC PANEL Lab results within last 7 days (see chart for full results) Units 06/09/24 05006/08/2452106/07/24 0554 Protein g/dL 5.6* 4.8* 4.8* Bilirubin, Total mg/dL 0.3 0.3 0.2 Alkaline Phosphatase U/L 76 72 72 AST U/L 147* 129* 105* ALT U/L 46* 35 36* TROPONIN Lab results within last 7 days (see chart for full results) Units 06/04/24 1133 06/04/24 0855 06/04/24 0543 Troponin T, High Sensitivity ng/L 137* 147* 125* LACTIC ACID Lab results within last 7 days (see chart for full results) Units 06/08/24205506/04/24 1205 06/04/24 1032 Lactate mmol/L 1.4 0.9 1.1 IMAGING: XR CHEST 1 VIEW Result Date: 06/09/2024 IMPRESSION Mild left basilar opacities may represent atelectasis versus early pneumonia. Query small pleural effusions. IMPRESSION: Principal Problem: Undifferentiated inflammatory polyarthritis (HCC) Active Problems: Anemia of chronic disease MAS (macrophage activation syndrome) (HCC) Still's disease (HCC) Rash Chest pain, non-cardiac Idiopathic acute pancreatitis Gallstone pancreatitis Isolated proteinuria without specific morphologic lesion Hypocalcemia Ileus (HCC) Resolved Problems: * No resolved hospital problems. * 29 yo F w pancreatitis in the setting of autoimmune workup w suspicion for Still's disease and cholelithiasis. Now w distention - likely ileus in setting of pancreatitis and opioid use. Patient with NGT in place, symptoms improving. Patient is having BM's (last output 06/07 evening). PLAN: - Continue fever work up - Encourage OOB and ambulation - No plan for surgical cholecystectomy at this time. We placed surgery referral for elective cholecystectomy but patient can have it done at the facility close to her home outside [facility] - Rest of care per primary - EGS will be available for any questions. Patient was seen and discussed with Dr. John Mendez MD General Surgery Resident, PGY-1 [facility] Cosigned by René Lopez MD at 06/09/2024 10:15 AM EST Associated attestation - René Lopez MD - 06/09/2024 10:15 AM EST I saw and evaluated the patient today. I have reviewed the resident/fellow physician note and agree. No plan for cholecystectomy at this time we will continue to follow peripherally consider outpatient cholecystectomy * Ankur Pratt, [facility] - 06/09/2024 4:44 AM EST PHARMACY PHARMACOKINETIC CONSULT [facility] [place] [address] Name: Bhavin Wilson [place] [facility] [place] [facility] Date: 06/09/2024 Time: 4:44 AM Requesting service: Med Q Bacteria being treated: empiric Source of infection: unknown sepsis Medication(s) being managed: Vancomycin Pharmacokinetic calculations will be performed utilizing Valuation App software. Lab information: Lab Results Component Value Date/Time WBC 6.34 06/08/2024 08:57 PM WBC 3.78 (L) 06/08/2024 05:22 AM WBC 2.63 (L) 06/07/2024 05:54 AM WBC 3.28 (L) 06/06/2024 05:12 AM WBC 3.12 (L) 06/05/2024 05:52 AM Lab Results Component Value Date/Time BUN 5 (L) 06/08/2024 08:57 PM BUN 4 (L) 06/08/2024 05:22 AM BUN 6 06/07/2024 05:54 AM BUN 7 06/06/2024 11:31 PM BUN 8 06/06/2024 09:06 PM Lab Results Component Value Date/Time CREAT 0.4 (L) 06/08/2024 08:57 PM CREAT 0.3 (L) 06/08/2024 05:22 AM CREAT 0.3 (L) 06/07/2024 05:54 AM CREAT 0.3 (L) 06/06/2024 11:31 PM CREAT 0.3 (L) 06/06/2024 09:06 PM ANTIMICROBIALS GIVEN (last 28 hours) None Wt Readings from Last 1 Encounters: 06/08/24 59.9 kg (132 lb 0.9 oz) Levels to date: No results found for: "VANCO", "VANCOPEAK", "VANCORANDOM", "VANCOTROUGH", "GENTPEAK", "GENTRANDOM","GENTTROUGH", "TOBRAPEAK", "TOBRARANDOM", "TOBRATROUGH", "AMIKAPEAK", "AMIKARANDOM", "AMIKATROUGH" Impression: Bhavin Wilson is a/an 29 year old female receiving vancomycin therapy. The pharmacokinetic target for therapy is AUC24,SS (range) 400-600mg/L.hr Assessment and Plan: Analysis using [employer] gives the following patient-specific pharmacokinetic parameters: CL: 6.86 L/hr V: 40.4 L T1/2: 5.7 hours At this time we recommend a loading dose of 1500 mg at 05:15 06/09/2024, followed by a regimen of 1250 mg IV every 8 hours, which is predicted to result in a steady-state trough of 12.8 mg/L and AUC24 of 543 mg/L.hr. Recommendations: - Vancomycin 1250 mg IV every 8 hours - Obtain Vancomycin level 24-48 hours - Continue to monitor serum creatinine Pharmacy will continue to follow and dose as appropriate by renal function, culture results, infectious disease input, and overall clinical status. Contact the Pharmacy at extension [phone] if there are any questions. * Toney Redmond MD - 06/08/2024 6:27 PM EST Transfer note: Pt is a 29 year old female with hx as above admitted for undifferentiated inflammatory polyarthritis, severe hypocalcemia, SOB, pancreatitis in ICU. She is being transferred to medical service after she was stable and her calcium is stable. She was initially present in Medicine unit after PCP noticed abnormal lab work of elevated CRP, ESR, ferritin of approximately 10,000, LD of 633, and mild transaminitis. Patient was transferred to [facility] for potential bone marrow biopsy to evaluate for Still's disease (completed June 04) . Hospital course has been complicated by gallstone pancreatitis and ileus. After severe hypocalcemia , she was transferred to ICU for calcium gtt on 05/06/2024. Patient has been evaluated by general surgery for illeus, gallstone pancreatitis. Rheumatology evaluation done to evaluate for inflammatory disorder. After her calcium being relatively in safer level she is downgraded to medicine floor and being monitored for electrolyte and replete prn. For illeus/gallstone pancreatitis she is continued with NG tube. On clear liquid diet. If symptomatic need to place on suction and surgery is not planning for any surgical intervention at this time. * Scott Marie MD - 06/08/2024 5:51 PM EST PROGRESS NOTE - [place] [facility] [place] [address] Name: Bhavin Wilson [place] [facility] [id number] Date: 06/08/2024 Time: 5:51 PM SUBJECTIVE: Patient seen and examined at bedside today. Is in intensive care - NG tube in place. Currently dealing with acute pancreatitis and symptomatic hypocalcemia. Per patient, rash has improved. Asymptomatic with minimal itch. Is scheduled to be off of anakinra tomorrow and transitioned from solumedrol to prednisone. ALLERGIES: Sulfasalazine OBJECTIVE: Vital Signs Last 24 Hours: Most Recent Systolic BP Av.5 mmHg Min: 94 mmHg Max: 115 mmHg Most Recent Temperature Av.1 C Min: 36.5 C Max: 37.61 C Pulse Av Min: 75 Max: 105 Resp Av.6 Min: 16 Max: 18 SpO2 Av.9 % Min: 96 % Max: 100 % PHYSICAL EXAM: GEN: Healthy, alert, no distress, appears oriented, pleasant, and cooperative. NG tube in place SKIN: Detailed exam of hair, face including lids and lips, oral cavity, neck, chest, abdomen, back,right and left upper extremities, right and left lower extremities, and nails and digits completed and are normal except: A. Erythematous patches scattered on face and upper arms. Reticular erythema on bilateral arms. A. Skin, right arm, shave: 06/14/2024 Very mild epidermal keratinocyte dysmaturation and focal superficial dermal inflammation (see comment) Comment: Hematoxylin and eosin stained sections reveal very mild dysmaturation of keratinocytes in the epidermis. The superficial dermis shows a very mild focal perivascular lymphocytic infiltrate aswell as melanin pigment deposition. Definitive pathogenic fungal hyphal forms are not identified inthe planes of section examined on PAS special stain (controls appropriate). Overt histologic evidence of adult onset Still disease, such as dyskeratotic keratinocytes in the epidermis or mixed/neutrophilic dermal infiltrate, are not identified in the planes of section examined. However, the specimen could represent an early evolving or resolving dermatitis. Clinical correlation is required. A repeat sampling of the rash/lesions with deeper portions of tissue should be considered if there is persistence, recurrence, worsening, failed response to treatment/intervention, or continued clinical uncertainty. ASSESSMENT AND PLAN: 1. Rash - differential diagnosis drug eruption, adult onset stills disease - rash does not appear much improved, slightly more erythematous on face - patient asymptomatic - off anakinra, still on systemic steroids which may contribute to subtle rash presentation and alter pathological evaluation - will monitor off of suspected culprit anakinra, she has also been off antibiotics - if no improvement in rash, may pursue punch bx for further evaluation Follow-up: will follow Patient was discussed with Dr. Dwight Domínguez Cosigned by Jose Domínguez MD at 06/09/2024 7:32 AM EST Associated attestation - Jose Domínguez MD - 06/09/2024 7:32 AM EST I did not see the patient, but I have reviewed the resident/fellow physician documentation and was readily available on date of service. Jose Domínguez MD * Ulises Ralph MD - 06/08/2024 3:41 PM EST BRIEF TRANSFER OUT OF INTENSIVE CARE NOTE - CRITICAL CARE [place]ICINE [facility] [place] [address] Name: Bhavin Wilson Current Location: [address] Primary ICU Problem: symptomatic hypocalcemia ICU Course/Complications: none Delirium: No Mechanical Ventilation: Intubated: No Difficult airway: n/a Major Procedures: none Medications: Medication changes: Calcium gtt started in ICU but now d/c with improvement of labs Transitioning back to enteral meds Prozac restarted with improvement of QTc Antibiotics: No Pending ICU Issues: Active issues currently being followed or monitored at time of transfer out of ICU: Hypocalcemia Pancreatitis Rheumatology workup Consults following or that need to be accomplished: none Central Lines/Chest Tubes/PICC/IUBC: Remaining in place: No Family Meeting/Goals of Care: Full Code Follow Up: Outpatient follow up clinics/labs/studies: f/u rheumatology, possible kidney bx, blood chemistry Incidental findings that need to be addressed: none * Dong Morgan MD - 06/08/2024 11:08 AM EST PROGRESS NOTE - Trauma/Emergency Surgery [facility] [place] [address] Name: Bhavin Wilson [place] [facility] [id number] Date: 06/08/2024 Time: 11:08 AM DIAGNOSIS: pancreatitis, cholelithiasis SUBJECTIVE: Patient resting comfortably in bed. No acute events overnight. Patient continues ICU admission for correction of severe hypocalcemia. OBJECTIVE: Most Recent Vital Signs: BP: 108 mmHg/76 mmHg (06/08/24 1049) Pulse: 104 (06/08/24 1049) Resp: 18 (06/08/24 1000) Temp: 37.22 C (06/08/24 0800) Temp Summary: Temp Min: 36.4 C (97.5 F) Max: 37.6 C (99.7 F) SpO2: 100 % (06/08/24 1000) O2 flow rate: Supplemental O2 Delivery: Room Air, None (06/08/24 1100) Vital Signs Last 24 Hours: Systolic BP: Most Recent Systolic BP Av.1 mmHg Min: 98 mmHg Max: 115 mmHg Temperature: Most Recent Temperature Av C Min: 36.39 C Max: 37.61 C Pulse: Pulse Av.4 Min: 75 Max: 104 Respirations: Resp Av Min: 18 Max: 18 SpO2: SpO2 Av.3 % Min: 96 % Max: 100 % In / Out Past 24 Hrs: Intake/Output Summary (Last 24 hours) at 06/08/2024 1108 Last data filed at 06/08/2024 0900 Gross per 24 hour Intake 3790.21 ml Output 1950 ml Net 1840.21 ml Physical Exam: Gen: no acute distress Neck: supple CV: RRR Chest: nonlabored breathing Abdomen: soft, disetnded, tympanic, mild generalized tenderness persists. Neuro: AOX3 Extremities: warm, well perfused LABS: Labs reviewed as indicated below: BMP Lab results within last 7 days (see chart for full results) Units 06/08/24 0522 06/07/24 0554 06/06/24 2331 SODIUM mmol/L 134* 137 136 POTASSIUM mmol/L 3.6 3.8 3.5 CHLORIDE mmol/L 103 106 106 CO2 mmol/L 20* 20* 20* BUN mg/dL 4* 6 7 CREATININE mg/dL 0.3* 0.3* 0.3* Phosphorus mg/dL 2.2* 2.3* 1.5* Magnesium mg/dL 2.4 2.2 2.4 CBC Lab results within last 7 days (see chart for full results) Units 06/08/24 0522 06/07/24 0554 06/06/24 0512 06/05/24 0552 HGB g/dL 8.7* 8.7* 9.4* 9.0* HCT % 27.8* 28.1* 31.0* 29.0* WBC K/uL 3.78* 2.63* 3.28* 3.12* PLT K/uL 306 287 301 319 Neutrophils % % 84.6* 91.0* 79.8* 79.2* Monocytes % % 1.9 3.0 3.4 2.9 Eosinophils % % 0.0 -- 0.0 0.0 HEPATIC PANEL Lab results within last 7 days (see chart for full results) Units 06/08/24 0522 06/07/24 0554 06/06/24 0512 Protein g/dL 4.8* 4.8* 5.1* Bilirubin, Total mg/dL 0.3 0.2 0.2 Alkaline Phosphatase U/L 72 72 90 AST U/L 129* 105* 109* ALT U/L 35 36* 41* TROPONIN Lab results within last 7 days (see chart for full results) Units 06/04/24 1133 06/04/24 0855 06/04/24 0543 Troponin T, High Sensitivity ng/L 137* 147* 125* LACTIC ACID Lab results within last 7 days (see chart for full results) Units 06/04/24 1205 06/04/24 1032 Lactate mmol/L 0.9 1.1 IMAGING: No imaging results in the last 24 hours IMPRESSION: Principal Problem: Undifferentiated inflammatory polyarthritis (HCC) Active Problems: Anemia of chronic disease MAS (macrophage activation syndrome) (HCC) Still's disease (HCC) Rash Chest pain, non-cardiac Idiopathic acute pancreatitis Gallstone pancreatitis Isolated proteinuria without specific morphologic lesion Hypocalcemia Resolved Problems: * No resolved hospital problems. * 29 yo F w pancreatitis in the setting of autoimmune workup w suspicion for Still's disease and cholelithiasis. Now w distention - likely ileus in setting of pancreatitis and opioid use. Patient with NGT in place, symptoms improving. Patient is having BM's (last output 06/07 evening). PLAN: - Encourage OOB and ambulation - NGT to suction - monitor and record output -No plan for surgical cholecystectomy at this time. EGS will continue to follow. - Continue to monitor abdominal exam - Rest of care per primary Cosigned by Maia Luna MD at 06/08/2024 6:05 PM EST Associated attestation - Maia Luna MD - 06/08/2024 6:05 PM EST I saw and evaluated the patient. I have reviewed the trainee note. I have reviewed and independently interpreted the history, physical, chart, labs, and imaging. 29 yo admitted on 06/02 with joint pain and intermittent fevers in the setting of ongoing workup byRheumatology for possible adult onset Still's disease. She was also diagnosed with pancreatitis andequivocal gallbladder findings, making possible cause of pancreatitis biliary in etiology. She alsohad an ileus. Plan was tentatively for cholecystectomy this admission after abdominal exam improved. However, this was cancelled when she had progressive worsening hypocalcemia requiring transfer to the ICU for calcium infusion. She was also managed with an NGT. On rounds today pt had a CLD and NGT in place. She had very significant abdominal distention and abdomen was firm. She denies any significant BMs. There are 3 BMs recorded from 06/07, but there are no specifics to determine if these were truly BMs, if they were liquid, and quantity. NGT output was not recorded. Bowel distention on KUB from today looks improved compared to days prior. - I am concerned that she will not tolerate PO, and she has an increased risk of aspiration if dietwhile NGT is in place, please maintain strict aspiration precautions, pt should be upright in bed, especially for at least 2 hours after PO intake. - If there is any nausea or increased distention/firmness please place NGT to suction immediately - Hold off on cholecystectomy at this time. Will likely have pt f/u with repeat CT A/P in 2-4 weeksfor re-evaluation - Will continue to follow Maia Luna MD, FACS Trauma, Emergency General Surgery, and Critical Care * Tiffnaie Fisher MD - 06/08/2024 9:03 AM EST PROGRESS NOTE - [place] [facility] [place] [address] Name: Bhavin Wilson [place] [facility] [place] Date: 06/08/2024 Time: 9:03 AM PATIENT ASSESSMENT AND FINDINGS: Patient seen and examined at bedside. Patient was afebrile since yesterday. Rashes about the same as prior. Joint pain improving. Abdominal pain improving, having bowel movements, but still feels distended. MUSCULOSKELETAL ROS: . Abnormal: joint pain OTHER ROS: . Constitutional: fatigue . Gastrointestinal: abdominal pain . Skin: rash All other ROS negative. PHYSICAL EXAM: Most Recent Vital Signs: BP: 110 mmHg/78 mmHg (06/08/24 0700) Pulse: 97 (06/08/24 0700) Resp: 18 (06/07/24 1200) Temp: 37.22 C (06/08/24 0800) Temp Summary: Temp Min: 36.4 C (97.5 F) Max: 37.6 C (99.7 F) SpO2: 96 % (06/08/24 07) O2 flow rate: Supplemental O2 Delivery: Room Air, None (06/08/24699) Vital Signs Last 24 Hours: Temperature: Most Recent Temperature Av C Min: 36.39 C Max: 37.61 C Pulse: Pulse Av.9 Min: 75 Max: 145 Respirations: Resp Av Min: 18 Max: 18 SpO2: SpO2 Av.9 % Min: 96 % Max: 98 % Systolic BP: Most Recent Systolic BP Av.8 mmHg Min: 100 mmHg Max: 115 mmHg General: alert, healthy, and no distress HENT: normocephalic, external ears normal Eye Exam: conjunctiva are pink and non-injected, sclera clear Heart: regular rate & rhythm, no murmur, and no gallops Lungs: clear to auscultation , no rales, wheezes or rhonchi Skin: erythematous macular rash on L>R cheek and chin and lacy reticulated rash on RUE, similar to previous Musculoskeletal Exam: . Normal LABS: Labs reviewed as indicated below: CBC Lab results within last 7 days (see chart for full results) Units 06/08/24 0506/07/24 0506/06/24 05 WBC K/uL 3.78* 2.63* 3.28* HGB g/dL 8.7* 8.7* 9.4* HCT % 27.8* 28.1* 31.0* PLT K/uL 306 287 301 BMP Lab results within last 7 days (see chart for full results) Units 06/08/24 0506/07/24 0554 06/06/24 2331 SODIUM mmol/L 134* 137 136 POTASSIUM mmol/L 3.6 3.8 3.5 CHLORIDE mmol/L 103 106 106 CO2 mmol/L 20* 20* 20* BUN mg/dL 4* 6 7 CREATININE mg/dL 0.3* 0.3* 0.3* GLUCOSE mg/dL 76 69* 81 Lab results within last 7 days (see chart for full results) Units 06/08/24 0506/07/24 0554 06/06/24 0512 Triglycerides mg/dL 312* 357* 465* Lab results within last 7 days (see chart for full results) Units 06/08/24 0506/06/24 0512 06/05/24 0551 06/04/24 0543 06/03/24 0557 Prothrombin Time seconds 14.7 < > 13.0 < > 13.6 aPTT seconds 41* < > 36 < > 40* INR 1.1 < > 1.0 < > 1.0 D-Dimer ug/mL FEU -- -- 4.09* < > 2.70* Fibrinogen mg/dL -- -- -- -- 389 < > = values in this interval not displayed. Lab results within last 7 days (see chart for full results) Units 06/08/24 0506/07/24 0554 06/06/24 0512 06/05/24 0551 06/04/24 2158 06/04/24 1133 06/04/24 0543 06/03/24 0557 06/02/24 1431 06/01/24 1136 DESTINY Screen -- -- -- -- -- -- -- Negative -- -- dsDNA Antibody Interpretation -- -- -- -- -- -- -- Negative Negative -- dsDNA Antibody Value IU/mL -- -- -- -- -- -- -- 2.9 3.0 -- SHANNAN Antibodies Screen Interpretation -- -- -- -- -- -- -- Negative -- -- SHANNAN Antibodies Screen Value Ratio -- -- -- -- -- -- -- 0.3 -- -- Complement C3 mg/dL 58* 60* -- -- -- 85* -- 70* -- < > Complement C4 mg/dL 10 10 -- -- -- 19 -- 17 -- < > CRP (Inflammatory Marker) mg/L 58* 37* 31* 32* -- -- 56* 67* -- -- ESR mm/hour 9 14 35* 32* -- -- 41* 29* -- -- c-ANCA -- -- -- -- Negative -- -- -- -- -- p-ANCA -- -- -- -- Negative -- -- -- -- -- Ferritin ng/mL 5,969* 6,328* 6,885* 7,613* -- -- 9,351* 9,201* -- -- LD U/L 503* 581* 611* 532* -- -- 541* 557* 632* -- < > = values in this interval not displayed. Lab results within last 7 days (see chart for full results) Units 06/08/24 0506/07/24 0554 06/03/24 0557 06/02/24 1431 AST U/L 129* 105* < > 156* ALT U/L 35 36* < > 47* Albumin g/dL 2.7* 2.6* < > 2.6* Alkaline Phosphatase U/L 72 72 < > 112 Bilirubin, Total mg/dL 0.3 0.2 < > 0.3 Bilirubin, Direct mg/dL -- -- -- <0.2 Protein g/dL 4.8* 4.8* < > 5.9* | 6.2 < > = values in this interval not displayed. Latest Reference Range & Units 06/05/24 08:58 Antinuclear Antibody Interpretation, IFA Negative Positive ! Antinuclear Antibody Pattern, IFA Cytoplasmic Fibrillar Antinuclear Antibody Titer, IFA <1:80 Titer 1:640 !: Data is abnormal IMAGING: No imaging results in the last 24 hours IMPRESSION/RECOMMENDATION: 29 year old female with concern for drug-induced lupus vs AOSD with evolving MAS vs SLE vs serum sickness or serum sickness like reaction. Her course has been complicated by acute pancreatitis, troponin leak and possible drug rash (likely from anakinra), subnephrotic range proteinuria, symptomatic hypocalcemia, and ileus. Will continue to treat with solumedrol (Anakinra discontinued). Suspect pancreatitis is unrelated to the inflammatory rheumatic process and secondary to gallstones. Will continue to closely monitor labs as below. RHEUMATOLOGY CONCURRENT CARE SUGGESTION(S): Switch solumedrol to 40 mg IV to PO prednisone 40 mg daily, starting tomorrow. Continue to trend daily CBC with diff, CMP, Liver enzymes, Ferritin, LDH. No longer need to trend ESR, CRP, coags, D-dimer, or complements. Continue to follow Histone antibodies, dsDNA with IFA, Soluble Il- 2 receptor, (sCD25 or Angelia-2R), CXCL9 , Immunoglobulin levels; IgG, A and M, and send-out labs (IL-18, CXCL9, plasma neopterin, soluble CD163, soluble IL-2R) Management of gallstone pancreatitis as per primary team and surgery, cholecystectomy planned for early next week Given that she has had rash to several DMARD therapies (SSZ, cimzia, and adalimumab biosimilar) andlikely rash from anakinra as well, will need to determine optimal outpatient DMARD therapy. Consider GER-inhibitor as outpatient given different mechanism of action. Cosigned by Polly Mojica MD at 06/08/2024 1:39 PM EST Associated attestation - Polly Mojica MD - 06/08/2024 1:39 PM EST I saw and evaluated the patient today. I have reviewed the resident/fellow physician note and agree. 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 Agree with transitioning to oral prednisone 40 mg daily and would taper by 10 mg every 5 days. Rheumatology will continue to follow while in the hospital and will arrange outpatient rheumatology follow-up with Dr. Vang in [place]. Dr. Velez will be taking over rheumatology consult service tomorrow, will update him on plans. Can consider IL-6 inhibitor or GER inhibitor as outpatient for her inflammatory arthritis. Will need gallbladder out before initiating new biologic DMARD therapy. * Ulises Ralph MD - 06/08/2024 6:48 AM EST CCM - PROGRESS [place] [facility] [place] [address] Name: Bhavin Wilson [place] [facility] [place] Date: 06/08/2024 Time: 6:48 AM Date of admission: 06/02/2024 Hospital length of stay: 6 days Subjective PATIENT DESCRIPTION: The patient is a 29 year old female with hx of autoimmune arthropathy admitted as a transfer from [facility] for joint pain and intermittent fever (Tmax 102.7F on 06/03). EVENTS OF NOTE: [place] [facility] [place] Hypocalcemia. OVERNIGHT EVENTS: No acute events overnight. Ca gtt increased and prozac restarted. VSS and afebrile. This AM pt awake and alert in bed. AOx3. Endorses abdominal distention; states she has discomfort from bloating but that it is not painful. Denies other complaints this AM and states all other sx have improved. ROS: Review of Systems Constitutional: Negative for chills and fever. HENT: Negative for facial swelling and trouble swallowing. Eyes: Negative for visual disturbance. Respiratory: Negative for shortness of breath. Gastrointestinal: Positive for abdominal distention and abdominal pain. Negative for nausea and vomiting. Genitourinary: Negative for difficulty urinating. Musculoskeletal: Polyarthropathy Skin: Negative for color change and pallor. Neurological: Negative for tremors, seizures, facial asymmetry, speech difficulty and light-headedness. Psychiatric/Behavioral: Negative for agitation. Objective CONSTITUTIONAL DATA / OBJECTIVE: Most Recent Vitals: BP: 110 mmHg/78 mmHg (06/08/24 07) Pulse: 97 (06/08/24 0700) Resp: 18 (06/07/24 1200) Temp: 37.22 C (06/08/24 08) Temp Summary: Temp Min: 36.4 C (97.5 F) Max: 37.6 C (99.7 F) SpO2: 96 % (06/08/24699) O2 flow rate: Supplemental O2 Delivery: Room Air, None (06/08/24699) Average Vitals Overnight: Pulse Av.1 Min: 75 Max: 97 No data recorded Most Recent Systolic BP Av.6 mmHg Min: 100 mmHg Max: 115 mmHg Most Recent Diastolic BP Av.6 mmHg Min: 70 mmHg Max: 83 mmHg No data recorded Most Recent Temperature Av.1 C Min: 36.5 C Max: 37.61 C SpO2 Av.9 % Min: 96 % Max: 98 % Vital Signs Last 24 Hours: SBP: Most Recent Systolic BP Av.8 mmHg Min: 100 mmHg Max: 115 mmHg Temp: Most Recent Temperature Av C Min: 36.39 C Max: 37.61 C Pulse: Pulse Av.9 Min: 75 Max: 145 Respirations: Resp Av Min: 18 Max: 18 SpO2: SpO2 Av.9 % Min: 96 % Max: 98 % Intake & Output Summary (Last 24 hours): Intake/Output Summary (Last 24 hours) at 06/08/2024 0915 Last data filed at 06/08/2024 0700 Gross per 24 hour Intake 3818.23 ml Output 1850 ml Net 1968.23 ml Net IO Since Admission: 8,219.35 mL [06/08/24 1443] Height & Weight: Height: 162.6 cm (5' 4") (06/02/24 1940) Weight: 59.9 kg (132 lb 0.9 oz) (06/08/24 0600) Weight change: 2.1 kg (4 lb 10.1 oz) Body mass index is 22.67 kg/m. Physical Exam Vitals and nursing note reviewed. Constitutional: General: She is awake. She is not in acute distress. Appearance: She is normal weight. She is ill-appearing. HENT: Head: Normocephalic and atraumatic. Nose: Comments: NGT Mouth/Throat: Mouth: Mucous membranes are dry. Pharynx: Oropharynx is clear. Eyes: Pupils: Pupils are equal, round, and reactive to light. Cardiovascular: Rate and Rhythm: Regular rhythm. Tachycardia present. Pulses: Normal pulses. Heart sounds: No murmur heard. No friction rub. No gallop. Pulmonary: Effort: Pulmonary effort is normal. No respiratory distress. Breath sounds: No wheezing, rhonchi or rales. Abdominal: General: Bowel sounds are decreased. There is distension. Tenderness: There is abdominal tenderness in the right lower quadrant, periumbilical area, suprapubic area and left lower quadrant. There is no guarding or rebound. Musculoskeletal: General: No deformity. Normal range of motion. Skin: General: Skin is warm and dry. Neurological: General: No focal deficit present. Mental Status: She is alert and oriented to person, place, and time. Psychiatric: Mood and Affect: Mood normal. Behavior: Behavior is cooperative. Laboratory Values: I have personally reviewed the results as of 9:15 AM on 06/08/2024 -- Brief labs below include the 7 most recent results over the past week. Blood Gas: No results in the last 7 days - inpatent use only Blood Chemistry: Lab results within last 7 days (see chart for full results) Units 06/08/24 0522 06/07/24 0554 06/06/24 2331 06/06/24 2106 06/06/24 0512 06/05/24 0858 06/05/24 0551 06/04/24 1133 06/04/24 0543 06/02/24 1431 06/01/24 1136 SODIUM mmol/L 134* 137 136 136 137 -- 137 -- 133* < > 135 POTASSIUM mmol/L 3.6 3.8 3.5 4.0 3.8 -- 3.3* -- 3.7 < > 4.5 CHLORIDE mmol/L 103 106 106 105 107 -- 107 -- 105 < > 99 CO2 mmol/L 20* 20* 20* 20* 18* -- 19* 18* 19* < > 25 EGFR mL/min >90 >90 >90 >90 >90 -- >90 -- >90 < > >90 BUN mg/dL 4* 6 7 8 9 -- 10 -- 11 < > 10 CREATININE mg/dL 0.3* 0.3* 0.3* 0.3* 0.4* -- 0.4* -- 0.4* < > 0.5 eGFR (CysC) mL/min -- -- -- -- -- 53* -- -- -- -- -- GLUCOSE mg/dL 76 69* 81 102 80 -- 86 -- 90 < > 99 CALCIUM mg/dL 7.8* 6.3* 5.6* 5.0* 4.5* -- 6.3* -- 7.6* < > 8.1* Magnesium mg/dL 2.4 2.2 2.4 2.3 2.4 -- -- -- -- -- 2.2 Phosphorus mg/dL 2.2* 2.3* 1.5* -- -- 2.1* -- -- -- -- -- ANION GAP mmol/L 11 11 10 11 12 -- 11 -- 9 < > 11 < > = values in this interval not displayed. Hematology: Lab results within last 7 days (see chart for full results) Units 06/08/24 0522 06/07/24 0554 06/06/24 0512 06/05/24 0552 06/04/24 0543 06/03/24 0557 06/02/24 1431 WBC K/uL 3.78* 2.63* 3.28* 3.12* 3.75* 4.46 4.32 HGB g/dL 8.7* 8.7* 9.4* 9.0* 9.1* 8.5* 8.7* HCT % 27.8* 28.1* 31.0* 29.0* 29.3* 26.6* 27.3* PLT K/uL 306 287 301 319 329 321 362 MCV fL 84.2 84.9 86.4 84.8 84.7 84.7 83.0 Lab results within last 7 days (see chart for full results) Units 06/02/24 2217 ABO B | B Rh Negative | Negative Cardiac Studies: Lab results within last 7 days (see chart for full results) Units 06/04/24 1133 06/04/24 0855 06/04/24 0543 Troponin T, High Sensitivity ng/L 137* 147* 125* BNP, NT-Pro pg/mL -- -- 1,482* Coagulation Studies: Lab results within last 7 days (see chart for full results) Units 06/08/24 0522 06/07/24 0554 06/06/24 0512 06/05/24 0551 06/04/24 0543 06/03/24 0557 Prothrombin Time seconds 14.7 13.9 13.5 13.0 13.1 13.6 INR 1.1 1.1 1.0 1.0 1.0 1.0 aPTT seconds 41* 36 35 36 38 40* D-Dimer ug/mL FEU -- -- -- 4.09* 3.77* 2.70* Liver Function Panel: Lab results within last 7 days (see chart for full results) Units 06/08/24 0522 06/07/24 0554 06/06/24 0512 06/05/24 0551 06/04/24 0543 06/03/24 0557 06/02/24 1431 06/01/24 1136 Albumin g/dL 2.7* 2.6* 2.2* 2.2* 2.3* 2.1* 2.6* 2.7* Protein g/dL 4.8* 4.8* 5.1* 5.1* 5.5* 5.0* 5.9* | 6.2 5.9* Bilirubin, Total mg/dL 0.3 0.2 0.2 0.2 0.2 0.3 0.3 0.3 Bilirubin, Direct mg/dL -- -- -- -- -- -- <0.2 -- AST U/L 129* 105* 109* 121* 134* 137* 156* 171* ALT U/L 35 36* 41* 43* 41* 42* 47* 54* Alkaline Phosphatase U/L 72 72 90 89 95 93 112 118 Triglycerides mg/dL 312* 357* 465* 507* 411* 352* -- 456* Infectious Studies: Lab results within last 7 days (see chart for full results) Units 06/08/24 0522 06/07/24 0554 06/06/24 0512 06/05/24 0551 06/04/24 1205 06/04/24 1032 06/04/24 0543 06/03/24 0557 06/01/24 1136 Lactate mmol/L -- -- -- -- 0.9 1.1 -- -- -- Ferritin ng/mL 5,969* 6,328* 6,885* 7,613* -- -- 9,351* 9,201* 9,974* CRP (Inflammatory Marker) mg/L 58* 37* 31* 32* -- -- 56* 67* 65* ESR mm/hour 04 04 35* 32* -- -- 41* 29* 47* Recent Cultures (2 Weeks) 06/02/2024 06/02/2024 11:07 PM 10:17 PM BLOOD CULTURE GROWTH -- No growth No growth QUANT URINE CULTURE GROWTH No significant growth -- Lab results within last 7 days (see chart for full results) Units 06/04/24 1104 Coronavirus SARS-CoV-2 by PCR Negative Toxicology Studies No results in the last 7 days - inpatent use only Radiographic Studies: I have personally reviewed the results as of 9:15 AM on 06/08/2024 XR ABDOMEN 1 VIEW Result Date: 06/07/2024 IMPRESSION Gastric tube is appropriately positioned in the stomach. XR ABDOMEN 1 VIEW Result Date: 06/06/2024 IMPRESSION Similar probable ileus. XR ABDOMEN 1 VIEW Result Date: 06/06/2024 IMPRESSION Variable gaseous distention of the colon. Nonobstructive bowel gas pattern. Assessment & Plan Principal Problem: Undifferentiated inflammatory polyarthritis (HCC) (POA: Yes) Active Problems: Anemia of chronic disease (POA: Yes) MAS (macrophage activation syndrome) (HCC) (POA: Unknown) Still's disease (HCC) (POA: Unknown) Rash (POA: Unknown) Chest pain, non-cardiac (POA: Unknown) Idiopathic acute pancreatitis (POA: Unknown) Gallstone pancreatitis (POA: Unknown) Isolated proteinuria without specific morphologic lesion (POA: Unknown) Hypocalcemia (POA: Unknown) POA = Present On Admission ASSESSMENT: Pt is a 29 year old female with hx as above admitted for undifferentiated inflammatory polyarthritis, severe hypocalcemia, SOB, pancreatitis and concern for still disease. NEUROLOGIC: No acute concerns RASS Goal: 0 RASS Assessment: 0 Alert and Calm (06/08/24 0800) Sedation: None Pain Control: Tylenol 650 mg q6h ATC Dilaudid 2 mg and 4 mg prn pain Pain Assessment Scale: [facility] Scale 0-10 (06/08/24 07) Current Pain Score: 0 (no pain) (06/08/24 07) PULMONARY / RESPIRATORY: SOB - most likely secondary to hypocalcemia. Patient driven respiratory protocol SpO2 > 92% CARDIOVASCULAR: Long QTC - most likely secondary to hypercalcemia Monitor QTC with EKG twice daily. Avoid QTC prolonging medication. GASTROINTESTINAL / HEPATOBILIARY: Ileus Gallbladder disease - cholelithiasis with trace giovanny cholecystic fluid with negative sonographic Turner's sign. Equivocal findings for acute cholecystitis Gallstone pancreatitis - elevated lipase with triglycerides trending down. NPO except meds this AM; advance to clear liquid diet and continue advancing as tolerated NGT to remain until she tolerates diet well Last Bowel Movement: 06/08/24 (06/08/24 07) Stool Description: Small;Watery;Yellow (06/08/24 07) Stress Ulcer Prophylaxis: Proton Pump Inhibitor. RENAL / METABOLIC / FLUIDS: Hypocalcemia Low vitamin-D <6 CKD 3 Proteinuria Elevated ferritin level at 6300 without fever in the last 24 hours Monitor electrolytes q.6h for calcium and q.a.m. for all of the labs. Replete electrolytes as indicated Strict monitoring of fluid intake and output Renal dosing and medication considerations adjusted for glomerular filtration rate Daily weights Nephrology team signed off - we will consider outpatient kidney biopsy if indicated. D/c Calcium gluconate GTT; replete prn Switch calcitriol to PO with start of diet iCa q4h; significant improvement of Ca and related sx Consider spacing out this PM Consider calcium citrate supplement with advancing diet INFECTIOUS DISEASES: No acute concerns COVID neg ENDOCRINE: Hypothyroidism Blood Glucose Monitoring (BGM) Goal: 140-180 mg/dL. A-C p.r.n. 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 Transfuse for Hb <7 MUSCULOSKELETAL / RHEUMATOLOGY/ P.T / O.T. / MOBILITY: Undifferentiated inflammatory polyarthritis - with positive DESTINY, Still's disease - ferritin level at 6300 and fevers of up to 102 F Discontinued Anakinra per Rheumatology team. Continue Solu-Medrol 40 mg IV daily We will consider alternative biologic DMARD therapies (IL 6 inhibition with tocilizumab or GER inhibitor for inflammatory arthritis in the near future per Rheumatology team. DERMATOLOGIC / WOUND CARE: Malar rash - most likely secondary to rheumatological undifferentiated inflammatory. Arthritis/medication induced from anakinra. Continue to monitor. LINES / DRAINS / TUBES: LINES ALL Duration Peripheral Line Lower;Right Arm 20 Gauge 6 days NG/OG Tube Right nostril 1 day Peripheral Line Left;Lower Arm 20 Gauge 1 day GLOBAL ISSUES: Analgesia: protocol with control Sedation: N/A Delirium/Confusion Assessment Method for ICU (CAM-ICU): CAM-ICU negative HOB Elevation: greater than 30 degress Nutrition: NPO except medications DVT Prophylaxis: chemoprophylaxis with pneumatic compression devices Stress Ulcer Prophylaxis: PPI therapy for other indication Glycemic Control: controlled - not in protocol Central Line Necessity Reviewed: N/A Burnham: N/A Disposition: transfer to floor List of consulted services: ADULT PHYSICAL THERAPY CONSULT IP ADULT OCCUPATIONAL THERAPY CONSULT IP RHEUMATOLOGY CONSULT IP HEMATOLOGY CONSULT IP CARDIOLOGY CONSULT IP DERMATOLOGY CONSULT IP GASTROENTEROLOGY CONSULT IP NEPHROLOGY CONSULT IP GENERAL SURGERY CONSULT IP ADULT ENDOCRINOLOGY CONSULT IP Patient's decisional capacity: has capacity to make decisions Communication with Patient/Family: Mother via phone Goals of Care: improve respiratory status, stabilize hemodynamic status, and stabilize electrolytes Patient was seen and discussed on rounds with MD Ulises Dize MD PGY3 Cosigned by Giuseppe Myers MD at 06/08/2024 6:47 PM EST Associated attestation - Giuseppe Myers MD - 06/08/2024 6:47 PM EST I have examined the patient, reviewed the chart, labs, and relevant imaging, and discussed the patient's condition and plan of care with the resident and the ICU team. I agree with the resident's documentation, except where noted in my notes. Pt tolerating PO clears. Cont frequent Bms. Reports abd pain and distention improving, but still w/moderate giovanny-umbilical pain and TTP. Lipase, Ca++ improving. Suspect primary cause of acute decompensation was severe pancreatitis, likely biliary but auto-immune also possible. --Slowly advance diet as tolerated. DC NGT --Stop calcium gtt. In setting of pancreatitis, tolerate mild/ moderate hypocalcemia (Ca++ ionized or corrected for hypoalbuminemia) if asymptomatic. Use oral replacement preferentially if indicated. --diurese --Taper oral prednisone per Rheum. No evidence of HLH on bone marrow biopsy. Labs pending. * Ada Flaherty MD - 06/07/2024 7:14 AM EST CCM - [place] [facility] [place] [id number] Name: Bhavin Wilson [place] [facility] [id number] Date: 06/07/2024 Time: 7:20 AM Date of admission: 06/02/2024 Hospital length of stay: 5 days Subjective PATIENT DESCRIPTION: The patient is a 29 year old female with hx of autoimmune arthropathy admitted as a transfer from [facility] for joint pain and intermittent fever (Tmax 102.7F on 06/03). EVENTS OF NOTE: [place]02[place] [facility] [place] Hypocalcemia OVERNIGHT EVENTS: Patient remained with very low ionized calcium levels. Received calcium repletion overnight via gtts. When evaluated this morning, patient stated that her joint pain had improved and her numbness and tingling sensation on her face and digits was intermittent. Symptoms were worse yesterday. She deniesany fever overnight but admits to feeling flushed and warm. ROS: Review of Systems Constitutional: Positive for fatigue and fever. Negative for activity change, chills and diaphoresis. HENT: Negative for congestion, sore throat and voice change. Eyes: Negative for visual disturbance. Respiratory: Positive for shortness of breath. Negative for cough, choking, chest tightness and wheezing. Cardiovascular: Negative for chest pain, palpitations and leg swelling. Gastrointestinal: Positive for abdominal pain and constipation. Negative for blood in stool, diarrhea, nausea and vomiting. Endocrine: Negative for polyuria. Genitourinary: Negative for difficulty urinating. Musculoskeletal: Positive for arthralgias, joint swelling and myalgias. Skin: Positive for rash (facial). Allergic/Immunologic: Negative for environmental allergies. Neurological: Positive for weakness (generalized) and numbness (facial and tips of fingers intermittently). Negative for dizziness and headaches. Psychiatric/Behavioral: Negative for agitation, confusion and sleep disturbance. Objective CONSTITUTIONAL DATA / OBJECTIVE: Most Recent Vitals: BP: 113 mmHg/77 mmHg (06/07/24 0700) Pulse: 116 (06/07/24 0700) Resp: 22 (06/07/24 0015) Temp: 36.28 C (06/07/24 0400) Temp Summary: Temp Min: 36.2 C (97.2 F) Max: 36.8 C (98.2 F) SpO2: 97 % (06/07/24 0500) O2 flow rate: Supplemental O2 Delivery: Room Air, None (06/07/24 07) Average Vitals Overnight: Pulse Av.1 Min: 73 Max: 135 No data recorded Most Recent Systolic BP Av.9 mmHg Min: 94 mmHg Max: 113 mmHg Most Recent Diastolic BP Av.6 mmHg Min: 66 mmHg Max: 85 mmHg Resp Av.1 Min: 15 Max: 25 Most Recent Temperature Av.3 C Min: 36.22 C Max: 36.61 C SpO2 Av.2 % Min: 91 % Max: 100 % Vital Signs Last 24 Hours: SBP: Most Recent Systolic BP Av.4 mmHg Min: 89 mmHg Max: 113 mmHg Temp: Most Recent Temperature Av.5 C Min: 36.22 C Max: 36.78 C Pulse: Pulse Av.4 Min: 73 Max: 135 Respirations: Resp Av.8 Min: 15 Max: 25 SpO2: SpO2 Av.1 % Min: 91 % Max: 100 % Intake & Output Summary (Last 24 hours): Intake/Output Summary (Last 24 hours) at 06/07/2024719 Last data filed at 06/07/2024 07 Gross per 24 hour Intake 3790.62 ml Output 1100 ml Net 2690.62 ml Net IO Since Admission: 7,301.19 mL [06/07/24719] Height & Weight: Height: 162.6 cm (5' 4") (06/02/24 1940) Weight: 57.8 kg (127 lb 6.8 oz) (06/07/24 06) Weight change: 2.461 kg (5 lb 6.8 oz) Body mass index is 21.87 kg/m. Physical Exam Constitutional: General: She is not in acute distress. Appearance: Normal appearance. She is normal weight. She is ill-appearing. HENT: Head: Normocephalic and atraumatic. Nose: Nose normal. No congestion or rhinorrhea. Mouth/Throat: Mouth: Mucous membranes are moist. Pharynx: No oropharyngeal exudate or posterior oropharyngeal erythema. Eyes: General: No scleral icterus. Pupils: Pupils are equal, round, and reactive to light. Cardiovascular: Rate and Rhythm: Normal rate and regular rhythm. Pulses: Normal pulses. Heart sounds: Normal heart sounds. No murmur heard. Pulmonary: Effort: No respiratory distress. Abdominal: General: Abdomen is flat. Bowel sounds are normal. There is no distension. Palpations: Abdomen is soft. Tenderness: There is no guarding or rebound. Musculoskeletal: General: No swelling or tenderness. Skin: General: Skin is warm and dry. Capillary Refill: Capillary refill takes less than 2 seconds. Findings: No lesion or rash. Neurological: General: No focal deficit present. Mental Status: She is alert and oriented to person, place, and time. Motor: No weakness. Psychiatric: Mood and Affect: Mood normal. Behavior: Behavior normal. Thought Content: Thought content normal. Judgment: Judgment normal. Laboratory Values: I have personally reviewed the results as of 7:20 AM on 06/07/2024 -- Brief labs below include the 7 most recent results over the past week. Blood Gas: No results in the last 7 days - inpatent use only Blood Chemistry: Lab results within last 7 days (see chart for full results) Units 06/07/24 0554 06/06/24 2331 06/06/24 2106 06/06/24 0512 06/05/24 0858 06/05/24 0551 06/04/24 1133 06/04/24 0543 06/03/24 0557 06/02/24 1431 06/01/24 1136 SODIUM mmol/L 137 136 136 137 -- 137 -- 133* 134* < > 135 POTASSIUM mmol/L 3.8 3.5 4.0 3.8 -- 3.3* -- 3.7 3.4* < > 4.5 CHLORIDE mmol/L 106 106 105 107 -- 107 -- 105 104 < > 99 CO2 mmol/L 20* 20* 20* 18* -- 19* 18* 19* 21* < > 25 EGFR mL/min >90 >90 >90 >90 -- >90 -- >90 >90 < > >90 BUN mg/dL 6 7 8 9 -- 10 -- 11 6 < > 10 CREATININE mg/dL 0.3* 0.3* 0.3* 0.4* -- 0.4* -- 0.4* 0.5 < > 0.5 eGFR (CysC) mL/min -- -- -- -- 53* -- -- -- -- -- -- GLUCOSE mg/dL 69* 81 102 80 -- 86 -- 90 95 < > 99 CALCIUM mg/dL 6.3* 5.6* 5.0* 4.5* -- 6.3* -- 7.6* 7.1* < > 8.1* Magnesium mg/dL 2.2 2.4 2.3 2.4 -- -- -- -- -- -- 2.2 Phosphorus mg/dL 2.3* 1.5* -- -- 2.1* -- -- -- -- -- -- ANION GAP mmol/L 11 10 11 12 -- 11 -- 9 9 < > 11 < > = values in this interval not displayed. Hematology: Lab results within last 7 days (see chart for full results) Units 06/07/24 0554 06/06/24 0512 06/05/24 0552 06/04/24 0543 06/03/24 0557 06/02/24 1431 06/01/24 1136 WBC K/uL 2.63* 3.28* 3.12* 3.75* 4.46 4.32 3.53* HGB g/dL 8.7* 9.4* 9.0* 9.1* 8.5* 8.7* 10.2* HCT % 28.1* 31.0* 29.0* 29.3* 26.6* 27.3* 31.9* PLT K/uL 287 301 319 329 321 362 438* MCV fL 84.9 86.4 84.8 84.7 84.7 83.0 83.3 Lab results within last 7 days (see chart for full results) Units 06/02/24 2217 ABO B | B Rh Negative | Negative Cardiac Studies: Lab results within last 7 days (see chart for full results) Units 06/04/24 1133 06/04/24 0855 06/04/24 0543 Troponin T, High Sensitivity ng/L 137* 147* 125* BNP, NT-Pro pg/mL -- -- 1,482* Coagulation Studies: Lab results within last 7 days (see chart for full results) Units 06/07/24 0554 06/06/24 0512 06/05/24 0551 06/04/24 0543 06/03/24 0557 Prothrombin Time seconds 13.9 13.5 13.0 13.1 13.6 INR 1.1 1.0 1.0 1.0 1.0 aPTT seconds 36 35 36 38 40* D-Dimer ug/mL FEU -- -- 4.09* 3.77* 2.70* Liver Function Panel: Lab results within last 7 days (see chart for full results) Units 06/07/24 0554 06/06/24 0512 06/05/24 0551 06/04/24 0543 06/03/24 0557 06/02/24 1431 06/01/24 1136 Albumin g/dL 2.6* 2.2* 2.2* 2.3* 2.1* 2.6* 2.7* Protein g/dL 4.8* 5.1* 5.1* 5.5* 5.0* 5.9* | 6.2 5.9* Bilirubin, Total mg/dL 0.2 0.2 0.2 0.2 0.3 0.3 0.3 Bilirubin, Direct mg/dL -- -- -- -- -- <0.2 -- AST U/L 105* 109* 121* 134* 137* 156* 171* ALT U/L 36* 41* 43* 41* 42* 47* 54* Alkaline Phosphatase U/L 72 90 89 95 93 112 118 Triglycerides mg/dL 357* 465* 507* 411* 352* -- 456* Infectious Studies: Lab results within last 7 days (see chart for full results) Units 06/07/24 0554 06/06/24 0512 06/05/24 0551 06/04/24 1205 06/04/24 1032 06/04/24 0543 06/03/24 0557 06/01/24 1136 Lactate mmol/L -- -- -- 0.9 1.1 -- -- -- Ferritin ng/mL -- 6,885* 7,613* -- -- 9,351* 9,201* 9,974* CRP (Inflammatory Marker) mg/L 37* 31* 32* -- -- 56* 67* 65* ESR mm/hour 14 35* 32* -- -- 41* 29* 47* Recent Cultures (2 Weeks) 06/02/2024 06/02/2024 11:07 PM 10:17 PM BLOOD CULTURE GROWTH -- No growth to date No growth to date QUANT URINE CULTURE GROWTH No significant growth -- Lab results within last 7 days (see chart for full results) Units 06/04/24 1104 Coronavirus SARS-CoV-2 by PCR Negative Toxicology Studies No results in the last 7 days - inpatent use only Radiographic Studies: I have personally reviewed the results as of 7:20 AM on 06/07/2024 XR ABDOMEN 1 VIEW Result Date: 06/07/2024 IMPRESSION Gastric tube is appropriately positioned in the stomach. XR ABDOMEN 1 VIEW Result Date: 06/06/2024 IMPRESSION Similar probable ileus. XR ABDOMEN 1 VIEW Result Date: 06/06/2024 IMPRESSION Variable gaseous distention of the colon. Nonobstructive bowel gas pattern. US ABDOMEN COMPLETE Result Date: 06/05/2024 IMPRESSION 1. Heterogenous appearance of the pancreas with trace fluid about the pancreatic head inkeeping with known pancreatitis 2. Cholelithiasis with trace pericholecystic fluid a possibly related to pancreatitis. The gallbladder wall is at the upper limits of normal in thickness negative sonographic Turner's sign. Findings are equivocal for equivocal for acute cholecystitis. Fluid cystitis 3. Hepatic steatosis. CT PULMONARY EMBOLUS W CONTRAST Result Date: 06/04/2024 IMPRESSION 1. No pulmonary embolism. 2. Acute interstitial edematous pancreatitis in the imaged upper abdomen, new in the short interval from 06/02/2024. 3. Mild multifocal infectious/inflammatory nodular opacities in the lungs. 4. Trace pleural effusions. 5. Axillary/subpectoral lymphadenopathy, of ten related to connective tissue disease, unchanged on the left and improved on the right since 01/28/2024. Assessment & Plan Principal Problem: Undifferentiated inflammatory polyarthritis (HCC) (POA: Yes) Active Problems: Anemia of chronic disease (POA: Yes) MAS (macrophage activation syndrome) (HCC) (POA: Unknown) Still's disease (HCC) (POA: Unknown) Rash (POA: Unknown) Chest pain, non-cardiac (POA: Unknown) Idiopathic acute pancreatitis (POA: Unknown) Gallstone pancreatitis (POA: Unknown) Isolated proteinuria without specific morphologic lesion (POA: Unknown) POA = Present On Admission ASSESSMENT: Pt is a 29 year old female with hx as above admitted for undifferentiated inflammatory polyarthritis, severe hypocalcemia, SOB, pancreatitis and concern for still disease. NEUROLOGIC: No acute concerns RASS Goal: 0 RASS Assessment: 0 Alert and Calm (06/07/24 0400) Sedation: None Pain Control: Tylenol 650 mg q.6h scheduled Dilaudid 2 mg and 4 mg prn pain Morphine 3 mg IV prn pain Pain Assessment Scale: [facility] Scale 0-10 (06/07/24 0700) Current Pain Score: 0 (no pain) (06/07/24 0700) Paralytic None PULMONARY / RESPIRATORY: SOB - most likely secondary to hypocalcemia. Patient driven respiratory protocol CARDIOVASCULAR: Long QTC - most likely secondary to hypercalcemia Monitor QTC with EKG twice daily. Avoid QTC prolonging medication. GASTROINTESTINAL / HEPATOBILIARY: Ileus Gallbladder disease - cholelithiasis with trace giovanny cholecystic fluid with negative sonographic Turner's sign. Equivocal findings for acute cholecystitis Gallstone pancreatitis - elevated lipase with triglycerides trending down. Needs NPO except meds - with NGT to continuous suction due to ileus Last Bowel Movement: 06/07/24 (06/07/24 07) Stool Description: Small;Loose;Brown (06/07/24 07) Bowel Regimen: Deferred due to ileus . Stress Ulcer Prophylaxis: Proton Pump Inhibitor.. RENAL / METABOLIC / FLUIDS: Hypocalcemia Low vitamin-D <6 CKD 3 Proteinuria Elevated ferritin level at 6300 without fever in the last 24 hours Monitor electrolytes q.6h for calcium and q.a.m. for all of the labs. Replete electrolytes as indicated Strict monitoring of fluid intake and output Renal dosing and medication considerations adjusted for glomerular filtration rate Daily weights Nephrology team signed off - we will consider outpatient kidney biopsy if indicated. Current medications: Calcium gluconate GTT S 30 mL/h per endocrine recs in D5W Calcitriol 0.5 mcg IV push daily. Since patient is NPO we will not absorb the 50,000 daily. P.o. INFECTIOUS DISEASES: No acute concerns ENDOCRINE: Hypothyroidism Blood Glucose Monitoring (BGM) Goal: 140-180 mg/dL. A-C p.r.n. 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 Transfuse for Hb <7 MUSCULOSKELETAL / RHEUMATOLOGY/ P.T / O.T. / MOBILITY: Undifferentiated inflammatory polyarthritis - with positive DESTINY, Still's disease - ferritin level at 6300 and fevers of up to 102 F Discontinued Anakinra per Rheumatology team. Continue Solu-Medrol 40 mg IV daily We will consider alternative biologic DMARD therapies (IL 6 inhibition with tocilizumab or GER inhibitor for inflammatory arthritis in the near future per Rheumatology team. DERMATOLOGIC / WOUND CARE: Malar rash - most likely secondary to rheumatological undifferentiated inflammatory. Arthritis/medication induced from anakinra. Continue to monitor. LINES / DRAINS / TUBES: LINES ALL Duration Peripheral Line Lower;Right Arm 20 Gauge 5 days NG/OG Tube Right nostril <1 day Peripheral Line Left;Lower Arm 20 Gauge <1 day GLOBAL ISSUES: Analgesia: protocol with control Sedation: N/A Delirium/Confusion Assessment Method for ICU (CAM-ICU): CAM-ICU negative HOB Elevation: greater than 30 degress Nutrition: NPO except medications DVT Prophylaxis: chemoprophylaxis with pneumatic compression devices Stress Ulcer Prophylaxis: PPI therapy for other indication Glycemic Control: controlled - not in protocol Central Line Necessity Reviewed: N/A Burnham: N/A Disposition: keep in ICU List of consulted services: ADULT PHYSICAL THERAPY CONSULT IP ADULT OCCUPATIONAL THERAPY CONSULT IP RHEUMATOLOGY CONSULT IP HEMATOLOGY CONSULT IP CARDIOLOGY CONSULT IP DERMATOLOGY CONSULT IP GASTROENTEROLOGY CONSULT IP NEPHROLOGY CONSULT IP GENERAL SURGERY CONSULT IP Patient's decisional capacity: has capacity to make decisions Communication with Patient/Family: Mother via phone Goals of Care: improve respiratory status, stabilize hemodynamic status, and stabilize electrolytes Patient was seen and discussed on rounds with MD Ada Lawler MD Fellow Pulmonary & Critical Care Medicine Cosigned by Ga Blanton MD at 06/07/2024 2:01 PM EST Associated attestation - Ga Blanton MD - 06/07/2024 2:01 PM EST I saw and evaluated the patient today. I have reviewed the resident/fellow physician note and agree. Transferred overnight to CICU for severe hypocalcemia requiring continuous calcium infusion. Calcium levels improving appropriately. Endocrinology Ask-A-Doc note reviewed. Discussed case with Nephrology team-no further workup needed while inpatient from Nephrology standpoint. Discuss with Rheumatology team during morning rounds-hold anakinra and continue with Solu-Medrol at this time. Hematology on board-awaiting bone marrow biopsy obtained on 06/04. Serial abdominal examination for mild ileus.NG tube to continuous suctioning. Keep strict NPO at this time. Positive flatus and moving bowels this a.m.. May consider to start clear liquids tonight versus tomorrow if remained stable. Otherwise plan as documented below. I spent a total of 35 minutes coordinating, documenting, and providing care for this patient excluding time spent in the performance of separately billed services or time spent by another provider/QHP. * Jono Curran MD - 06/07/2024 6:27 AM EST PROGRESS NOTE - Trauma/Emergency [place] [facility] [place] [address] Name: Bhavin Wilson [place] [facility] [place] Date: 06/07/2024 Time: 6:27 AM DIAGNOSIS: pancreatitis, cholelithiasis SUBJECTIVE: NGT placed overnight. No additional acute events occurred overnight. Patient with NGT in place. Denies nausea, vomiting. Pain well controlled. Distention improved. Voiding without difficulty. Last . OBJECTIVE: Most Recent Vital Signs: BP: 100 mmHg/66 mmHg (06/07/24599) Pulse: 92 (06/07/24599) Resp: 22 (06/07/24 0015) Temp: 36.28 C (06/07/24 0400) Temp Summary: Temp Min: 36.2 C (97.2 F) Max: 36.8 C (98.2 F) SpO2: 97 % (06/07/24 0500) O2 flow rate: Supplemental O2 Delivery: Room Air, None (06/07/24599) Vital Signs Last 24 Hours: Systolic BP: Most Recent Systolic BP Av.2 mmHg Min: 88 mmHg Max: 111 mmHg Temperature: Most Recent Temperature Av.5 C Min: 36.22 C Max: 36.78 C Pulse: Pulse Av.8 Min: 73 Max: 135 Respirations: Resp Av.7 Min: 15 Max: 25 SpO2: SpO2 Av.1 % Min: 91 % Max: 100 % In / Out Past 24 Hrs: Intake/Output Summary (Last 24 hours) at 06/07/2024 06 Last data filed at 06/07/2024 0600 Gross per 24 hour Intake 3591.03 ml Output 950 ml Net 2641.03 ml Physical Exam: Gen: no acute distress Neck: supple CV: RRR Chest: nonlabored breathing Abdomen: soft, disetnded, tympanic, mild generalized tenderness - mostly around epigastrium Neuro: AOX3 Extremities: warm, well perfused LABS: Labs reviewed as indicated below: BMP Lab results within last 7 days (see chart for full results) Units 06/06/24 2331 06/06/24 2106 06/06/24 0512 06/05/24 0858 SODIUM mmol/L 136 136 137 -- POTASSIUM mmol/L 3.5 4.0 3.8 -- CHLORIDE mmol/L 106 105 107 -- CO2 mmol/L 20* 20* 18* -- BUN mg/dL 7 8 9 -- CREATININE mg/dL 0.3* 0.3* 0.4* -- Phosphorus mg/dL 1.5* -- -- 2.1* Magnesium mg/dL 2.4 2.3 2.4 -- CBC Lab results within last 7 days (see chart for full results) Units 06/06/24 0512 06/05/24 0552 06/04/24 0543 HGB g/dL 9.4* 9.0* 9.1* HCT % 31.0* 29.0* 29.3* WBC K/uL 3.28* 3.12* 3.75* PLT K/uL 301 319 329 Neutrophils % % 79.8* 79.2* 78.9* Monocytes % % 3.4 2.9 2.4 Eosinophils % % 0.0 0.0 0.0 HEPATIC PANEL Lab results within last 7 days (see chart for full results) Units 06/06/24 0512 06/05/24 0551 06/04/24 0543 Protein g/dL 5.1* 5.1* 5.5* Bilirubin, Total mg/dL 0.2 0.2 0.2 Alkaline Phosphatase U/L 90 89 95 AST U/L 109* 121* 134* ALT U/L 41* 43* 41* TROPONIN Lab results within last 7 days (see chart for full results) Units 06/04/24 1133 06/04/24 0855 06/04/24 0543 Troponin T, High Sensitivity ng/L 137* 147* 125* LACTIC ACID Lab results within last 7 days (see chart for full results) Units 06/04/24 1205 06/04/24 1032 Lactate mmol/L 0.9 1.1 IMAGING: XR ABDOMEN 1 VIEW Result Date: 06/07/2024 IMPRESSION Gastric tube is appropriately positioned in the stomach. XR ABDOMEN 1 VIEW Result Date: 06/06/2024 IMPRESSION Similar probable ileus. XR ABDOMEN 1 VIEW Result Date: 06/06/2024 IMPRESSION Variable gaseous distention of the colon. Nonobstructive bowel gas pattern. IMPRESSION: Principal Problem: Undifferentiated inflammatory polyarthritis (HCC) Active Problems: Anemia of chronic disease MAS (macrophage activation syndrome) (HCC) Still's disease (HCC) Rash Chest pain, non-cardiac Idiopathic acute pancreatitis Gallstone pancreatitis Isolated proteinuria without specific morphologic lesion Resolved Problems: * No resolved hospital problems. * 29 yo F w pancreatitis in the setting of autoimmune workup w suspicion for Still's disease and cholelithiasis. Now w distention - likely ileus in setting of pancreatitis and opioid use. Patient with NGT in place, symptoms improving. Will continue to monitor ileus. Now having Bms. PLAN: - Encourage OOB and ambulation - NGT to suction - monitor and record output - Will continue to monitor - Rest of care per primary Patient seen and discussed w Dr Curran I have discussed the patient's management with the resident/fellow physician and agree with the note. Please refer to the documented findings and plan of care. This patient's visit today consisted ofan evaluation. I was present and confirmed the findings of the history and exam. Plan as per [facility] Trend exam * Angela Lala MD - 06/06/2024 9:53 PM EST PROGRESS NOTE - Nephrology [facility] [place] [address] Name: Bhavin Wilson [place] [facility] [place] Date: 06/06/2024 Time: 9:53 PM Summary 29 year old female with PMHx significant for seronegative inflammatory arthritis, migraines, anxiety disorder, AOSD, admitted for evaluation of persistent fever, tachycardia, elevated ferritin, LDH and mild transaminitis, suspected to have HLH/MAS syndrome along with Still's disease and Lupus beingin the differentials. Nephrology consulted for subnephrotic range proteinuria. Her UA is positive for microscopic hematuria, proteinuria. SUBJECTIVE: Patient was seen and examined this morning. No acute events overnight. She had no new complaints. OBJECTIVE: Most Recent Vital Signs: BP: 111 mmHg/75 mmHg (06/06/242114) Pulse: 84 (06/06/242114) Resp: 24 (06/06/242114) Temp: 36.22 C (06/06/242044) Temp Summary: Temp Min: 35.9 C (96.6 F) Max: 36.8 C (98.2 F) SpO2: 99 % (06/06/242114) O2 flow rate: Supplemental O2 Delivery: Room Air, None (06/06/242099) Vital Signs last 24 Hours: Systolic BP: Most Recent Systolic BP Av.2 mmHg Min: 88 mmHg Max: 111 mmHg Temperature: Most Recent Temperature Av.5 C Min: 35.89 C Max: 36.78 C Pulse: Pulse Av.7 Min: 79 Max: 96 Respirations: Resp Av.1 Min: 16 Max: 24 SpO2: SpO2 Av.3 % Min: 94 % Max: 100 % Physical Examination: Constitutional: No acute respiratory distress, chronically ill looking. HEENT: NCAT. Atraumatic, No icterus CV: regular rate, regular rhythm Chest: normal respiratory effort, lungs clear on auscultation Abdomen: soft, no tenderness, nondistended Extremities: no LE edema. Skin: warm, dry Neuro: awake, alert, oriented Psych: appropriate mood LABS: Reviewed CHEMISTRY: BUN, Creatinine, GFR Estimated, Sodium, Potassium, Chloride, Carbon Dioxide, Glucose, Calcium (see below for most recent value): Lab Results Component Value Date/Time BUN 9 06/06/2024 05:12 AM CREAT 0.4 (L) 06/06/2024 05:12 AM NA 137 06/06/2024 05:12 AM POTASSIUM 3.8 06/06/2024 05:12 AM CL 107 06/06/2024 05:12 AM CO2 18 (L) 06/06/2024 05:12 AM CA 4.5 (LL) 06/06/2024 05:12 AM CREATININE: Creatinine (see below for last three most recent values): Lab Results Component Value Date/Time CREAT 0.4 (L) 06/06/2024 05:12 AM CREAT 0.4 (L) 06/05/2024 05:51 AM CREAT 0.4 (L) 06/04/2024 05:43 AM BLOOD COUNT: WBC, Hgb, Platelets (see below for most recent value): Lab Results Component Value Date/Time WBC 3.28 (L) 06/06/2024 05:12 AM HGB 9.4 (L) 06/06/2024 05:12 AM HGB 13.3 09/07/2019 12:00 AM PLT 301 06/06/2024 05:12 AM IMAGING: Reviewed. IMPRESSION: 29 year old female with history of seronegative inflammatory arthritis, migraines, anxiety disorder, currently being treated for AOSD with IV solumedrol 1mg/kg and Anakinra.Nephrology hasbeen consulted for ongoing sub nephrotic range proteinuria. Hypocalcemia s/p calcium gluconate Impaired kidney function- cystatin based eGFR 53. Cr likely to be underestimating her kidney function Elevated LD Anemia: Hgb 9.4, elevated serum ferritin Gallstone pancreatitis MAS vs HLH. Awaiting BM biopsy report New onset hypothyroidism Plan: 24 hour urine collection for protein estimation still pending No plan for kidney biopsy- may consider if proteinuria persists/worsens Discussed with the primary team Patient was seen, examined and reviewed with Dr Augusto Lala MD. Nephrology Fellow. Cosigned by Kristy Casas MD at 06/06/2024 10:32 PM EST Associated attestation - Kristy Casas MD - 06/06/2024 10:32 PM EST I saw and evaluated the patient today. I have reviewed the resident/fellow physician note and agree. * Bhavin Bailon PA-C - 06/06/2024 9:24 PM EST TRANSFER RECEIVING NOTE - YANNA Valente [address] [place] [address] Name: Bhavin Wilson Current Location: [address] HANDOFF COMMUNICATION: Sending patient service: Medicine Accepting service: [facility] [place] Sending attending aware of patient and transfer: yes Receiving attending aware of patient and transfer: yes Name of receiving attending provider: Dr. Gallardo Patient care is being assumed by receiving service: 10:01 PM in current location Reason for transfer: Calcium infusion PATIENT DESCRIPTION: Ms. Wilson is a 29 year old female with a PMHx of left sided migraines, seronegative inflammatory arthritis and KENYA. [place] [facility] [place] with concerns for autoimmune arthritis and for further work up with bone marrow biopsy. 06/03: pt developed hypotension, given fluid, started on Abx Persistent Fevers, Rheum Consult, Heme Consult Rheum: R/o Still's disease with HLH/MAS, SLE, started on Solumedrol 1mg/kg daily, started on subq Anakinra Heme: Planned BMBx 06/04: found to have pancreatitis after c/o epigastric pain/chest pain Rheum advised continue with plan from 06/03 Cardiology consult, non cardiac chest pain due to pancreatitis Heme: underwent BMBx Derm consulted for rash, underwent shave bx GI consult for pancreatitis: recommended US of abdomen and checking lab work 06/05: Still with abdominal pain, anakinra dose decreased could be related to rash GI recommend general surgery consult Gen Surgery: plan for lap alexa when epigastric/ruq pain improves Nephrology consulted for proteinuria, recommended 24 hour urine Heme: BMBx no prominent/obvious hemophagocytosis, looks reactive/toxic with increased iron storage,shave bx looked like normal skin 06/06: Pain improving, started on calcium infusion and required transfer to ICU for continuation ofcare. HPI/EVENTS OF NOTE: See above TRANSFER MEDICATION RECONCILIATION COMPLETED? yes REVIEW OF SYSTEMS: Still has some rash but Joint pain improving, abdominal pain improving, fever improving No chest pain, shortness of breath, diarrhea CONSTITUTIONAL DATA: BP: 111 mmHg/75 mmHg (06/06/242114) Pulse: 84 (06/06/242114) Resp: 24 (06/06/242114) Temp: 36.22 C (06/06/242044) Temp Summary: Temp Min: 35.9 C (96.6 F) Max: 36.8 C (98.2 F) SpO2: 99 % (06/06/242114) O2 flow rate: Supplemental O2 Delivery: Room Air, None (11/16/24 2100) Vent Settings: PHYSICAL EXAM: Constit: No acute distress, appears comfortable HEENT: AT/NC, PERRL Lungs: CTA b/l no w/r/r Heart: RRR S1 S2 no m/r/g Abd: Distended, some pain to palpation, bowel sounds heard Skin: light rash present on face/chest, no mottling Neuro: AAO x 3, GCS 15 Psych: Cooperative, pleasant, calm LABORATORY VALUES: reviewed RADIOGRAPHIC STUDIES: reviewed Principal Problem: Undifferentiated inflammatory polyarthritis (HCC) (POA: Yes) Active Problems: Anemia of chronic disease (POA: Yes) MAS (macrophage activation syndrome) (HCC) (POA: Unknown) Still's disease (HCC) (POA: Unknown) Rash (POA: Unknown) Chest pain, non-cardiac (POA: Unknown) Idiopathic acute pancreatitis (POA: Unknown) Gallstone pancreatitis (POA: Unknown) Isolated proteinuria without specific morphologic lesion (POA: Unknown) POA = Present On Admission SYSTEM BASED PLAN: Neuro: Migraines - q4 NC - Prozac stopped due to elevated qtc - Dilaudid prn pain - Morphine prn pain - RTC tylenol Resp: Stable - Chest PT/Flutter/Incentive Cardiovascular: Stable - Elevated qtc, improving on most recent EKG GI/Hepatobiliary: Suspected Gallstone pancreatitis, Transaminitis - General surgery following - Recommend NGT to LCS - Will need surgery, possible 06/08 - Possible Ileus, keep npo except meds, continue bowel reg - Miralax - Fenofibrate - Prilosec - Senna Renal/Metabolic/Fluids: Severe Hypocalcemia - MIVF Isolyte - Started on Calcium infusion and sent to ICU for continuation of care - Tums - Check q4 Ical - Proteinuria 24 hour urine collection - RTC Albumin - Phos Nak Endocrine: new onset hypothyroidism - Levoxyl 88 mcg ID: Stable Heme: Acute on Chronic anemia, B12 def Leukopenia - [employer] b12 - Heme Consult Rheum: Elevated Ferritin - Rheum consult - Per heme, unlikely HLH - Methylpred 40 mg daily - Anakinra mg 100 daily M/S: Stable - TEDs/SCDs - Heparin VTE Multiple specialty labs pending Will require follow up. GLOBAL ISSUES: Analgesia: protocol with control Sedation: N/A Delirium/Confusion Assessment Method for ICU (CAM-ICU): CAM-ICU negative HOB Elevation: greater than 30 degress Nutrition: NPO except medications DVT Prophylaxis: chemoprophylaxis with pneumatic compression devices Stress Ulcer Prophylaxis: PPI therapy for other indication Glycemic Control: controlled - not in protocol Central Line Necessity Reviewed: N/A Burnham: N/A Disposition: keep in ICU Patient's decisional capacity: has capacity to make decisions Communication with Patient/Family: No meeting held. Goals of Care: decrease pain and discomfort Pt seen, examined and discussed with Dr. Gallardo. I spent a total of 60 minutes coordinating, documenting, and providing care for this patient excluding time spent in the performance of separately billed services or time spent by another provider/QHP. Addendum change to billing time. Cosigned by Ashley Gallardo MD at 06/12/2024 8:53 AM EST * Raad Barajas RN - 06/06/2024 8:30 PM EST Nursing Critical Care Response Note [facility] [place] [address] Name: Bhavin Leóngenevieve Date: 06/06/2024 Time: 9:03 PM Event [place] [facility] [place] Area: GP3 In the role of the Critical Response Nurse I was involved in the care of this patient. Method of notification to the critical care response nurse: Other: ICU Triage Thread Reason for notification or follow up: Patient acuity Other. ICU Transfer Observations/Interventions/Assessment: Was alerted via ICU Triage Thread that per Dr. Gallardo patient is to be transferred to CICU 756 for Calcium infusion. Outcome/Plan Patient transported to CICU 756 by CRN team. VSS throughout transfer. CICU RN to continue care. CRNcan be contacted via [facility] Text: [facility] [place] Critical Response Nurse. * Noah Marie DO - 06/06/2024 8:04 PM EST TRANSFER SENDING NOTE - MEDICINE [address] [address] Name: Bhavin Wilson Current Location: [address] [place] COMMUNICATION: Sending patient service: Santino Valente Accepting service: YANNA valente Sending attending aware of patient and transfer: yes Receiving attending aware of patient and transfer: yes Name of receiving attending provider: Dr. Ga Blanton Patient care is being assumed by receiving service: when patient arrives in receiving unit Reason for transfer: worsening hypocalcemia in the setting of QTc prolongation SUBJECTIVE: 29-year-old female with a past medical history L sided migraines, seronegative inflammatory arthritis, and KENYA who presented to [facility] as a transfer from outside hospital after PCP noticed abnormal lab work of elevated CRP, ESR, ferritin of approximately 10,000, LD of 633, and mild transaminitis. Patient transferred to [facility] for potential bone marrow biopsy to evaluate for Still's disease (completed June 04). Hospital course has been complicated by gallstone pancreatitis and ileus, with tentative plans for lap alexa on June 08 by General Surgery. Hospital course further c/b abdominal distension with ileus seen on KUB. Recommendations for conservative management with NG tube placement on low continuous suctioning. Patient has been evaluated by Rheumatology, Hematology, Dermatology for workup of undifferentiated polyarthritis with rash. Patient underwent shave biopsy, and was started on Solu-Medrol and anikinira. Nephrology was consulted for proteinuria with a workup including 24 hour urine. In the setting of her gallstone pancreatitis, patient's hypocalcemia continue to worsen. QTC show prolongation at 550 ms. Spoke with CCRN staff and unit staff, and they are unable to treat hypocalcemia with calcium gtt on the floor. Patient was transferred to ICU for treatment of severe hypocalcemia in the setting of Qtc prolongation. TRANSFER MEDICATION RECONCILIATION COMPLETED? yes OBJECTIVE: Most Recent Vital Signs: BP: 103 mmHg/70 mmHg (06/06/241856) Pulse: 89 (06/06/241856) Resp: 18 (06/06/241856) Temp: 36.61 C (06/06/241856) Temp Summary: Temp Min: 35.9 C (96.6 F) Max: 36.8 C (98.2 F) SpO2: 100 % (06/06/241856) O2 flow rate: Supplemental O2 Delivery: Room Air, None (06/06/241856) Vital Signs Last 24 Hours: Systolic BP: Most Recent Systolic BP Av.6 mmHg Min: 88 mmHg Max: 109 mmHg Temperature: Most Recent Temperature Av.5 C Min: 35.89 C Max: 36.78 C Pulse: Pulse Av.5 Min: 85 Max: 96 Respirations: Resp Av.2 Min: 16 Max: 18 SpO2: SpO2 Av % Min: 94 % Max: 100 % Intake/Output Summary (Last 24 hours) at 06/06/20242003 Last data filed at 06/06/2024 1934 Gross per 24 hour Intake 2185.42 ml Output 550 ml Net 1635.42 ml Patient Vitals for the past 72 hrs: Weight 06/06/24 0600 55.3 kg (122 lb) 06/05/24 0600 55.3 kg (121 lb 14.4 oz) 06/04/24 0600 54.7 kg (120 lb 11.2 oz) Constitutional: 29-year-old female lying in bed. In no acute distress. HEENT: Normocephalic, atraumatic. Sclera white, extraocular muscles intact Cardiovascular: Regular rate and rhythm, S1 and S2 present, no murmurs on auscultation Respiratory: Clear to auscultation bilaterally, no wheezes, rhonchi, crackles Abdomen: Tense, slightly distended. Mild tenderness to palpation in all 4 quadrants. No rebound or guarding. Musculoskeletal: Gross motor function intact, no tenderness to palpation. Extremities: No lower extremity edema bilaterally Neuro: Alert and oriented x3, cranial nerves 2-12 intact. Moves all extremities equally, no focal deficits. Able to answer questions and respond appropriately. Skin: Lacy pink rash over posterior arms and left cheek IMPRESSION and PLAN: Principal Problem: Undifferentiated inflammatory polyarthritis (HCC) (POA: Yes) Active Problems: Anemia of chronic disease (POA: Yes) MAS (macrophage activation syndrome) (HCC) (POA: Unknown) Still's disease (HCC) (POA: Unknown) Rash (POA: Unknown) Chest pain, non-cardiac (POA: Unknown) Idiopathic acute pancreatitis (POA: Unknown) Gallstone pancreatitis (POA: Unknown) Isolated proteinuria without specific morphologic lesion (POA: Unknown) POA = Present On Admission Bhavin Wilson is a 29 year old female with PMHx of left-sided migraines, seronegative inflammatory arthritis, and KENYA who presented as a transfer from [facility] with joint pain and intermittent fever. Patient is status post bone marrow biopsy, awaiting results. Patient's hospital course has been further complicated by chest and epigastric pain with concurrent elevations introponins, epigastric pain with imaging concerning for gallstone pancreatitis, and imaging concerning for large bowel distention and ileus. Severe Hypocalcemia Prolonged Qtc (550 ms)- likely 2/2 hypocalcemia Patient's ionized calcium low at 0.66 this afternoon, with repeat calcium this evening at 5.0 on basic metabolic panel. QTC was prolonged at 550ms. Calcium drip was attempted to be started, although protocols prohibit is from being started on Med/Surg floor. Patient will necessitate transferred to Critical Care for calcium drip infusion. Patient's hypocalcemia likely 2/2 pancreatitis. Continue trending iCal and Calcium levels Continue with calcium gtt Holding Prozac as per conversation with pharmacy (Qtc prolongation effects) Gallstone Pancreatitis Patient reports still passing flatus. As per Jenners criteria, 1 point for elevated LDH, 3 cumulative points for hypocalcemia. Passing flatus, last bowel movement was 2 days ago. General Surgery following, lap alexa plan for June 08. Continue with isolate 100 per hour Continue with the fenofibrate 160 continue with Tylenol, Dilaudid, morphine for pain regimen Ileus KUB from earlier today showed ileus. Upon evening rounds, patient's abdomen appeared distended, with KUB showing similar ileus. Touch base with General Surgery, recommended conservative management with NG tube placement on low continuous suctioning. Continue with NG tube placement on LCS Hold on Bowel Regimen MAS versus HLH Proteinuria Bone marrow biopsy performed on June 04, awaiting results. Hematology and Rheumatology consulted, appreciate recommendations. Nephrology consulted for sub-nephrotic range proteinuria, will continue work up with 24hr urine protein. Hematology consulted, appreciate recs Rheumatology consulted, appreciate recs Nephrology consulted, appreciate recs Continue with methylprednisolone Continue with anakinra 24 hour Urine protein ? Drug-induced exanthem Dermatology consulted, appreciate further recommendations Acute normocytic anemia Likely secondary to anemia of chronic disease. We will continue workup for undifferentiated polyarthritis. Trend with CBC New onset hypothyroidism TSH 10.6, free T4 0.8 Continue with Levoxyl 88 mcg Chronic Problems: Migraines: Holding [employer] Triptan and Topamax Misc: Diet: NPO Except Meds Bowel Regimen: MiraLax, senna, docusate Last Bowel Movement: 06/04/24 (06/04/241723) Stool Description: Mushy;Brown (06/04/241723) Sleep: No sleep protocol ordered Burnham: Not indicated at this time PT/OT: Consulted, recommendations appreciated GI prophylaxis: Not indicated at this time VTE Prophylaxis: Code Status: FULL Anticipated Discharge: LINES / DRAINS / TUBES: LINES ALL Duration Peripheral Line Lower;Right Arm 20 Gauge 4 days List of services consulted/following: ADULT PHYSICAL THERAPY CONSULT IP ADULT OCCUPATIONAL THERAPY CONSULT IP RHEUMATOLOGY CONSULT IP HEMATOLOGY CONSULT IP CARDIOLOGY CONSULT IP DERMATOLOGY CONSULT IP GASTROENTEROLOGY CONSULT IP NEPHROLOGY CONSULT IP GENERAL SURGERY CONSULT IP Noah Marie DO PGY-1, [facility] Internal Medicine Residency * Polly Mojica MD - 06/06/2024 9:14 AM EST PROGRESS NOTE - Rheumatology [facility] [address] Name: Bhavin Wilson [place] [facility]308[place][id number] Date: 06/06/2024 Time: 9:14 AM PATIENT ASSESSMENT AND FINDINGS: No fevers overnight. Rash is similar to yesterday. Abdominal pain is better, joint pain improving. Hasn't had BM recently. MUSCULOSKELETAL ROS: . Abnormal: joint pain OTHER ROS: . Constitutional: fatigue . Head normal . Eyes: normal . Ears, nose, throat, mouth: dry mouth . Cardiovascular: normal . Respiratory: shortness of breath but now able to walk to bathroom . Gastrointestinal: abdominal pain and constipation . Genitourinary: normal . Skin: rash . Neurologic: normal . Psychiatric: normal . Endocrine: normal . Hematologic/lymphatic: normal . Allergic/immunologic: normal All other ROS negative. PHYSICAL EXAM: Most Recent Vital Signs: BP: 89 mmHg/64 mmHg (06/06/24 0758) Pulse: 96 (06/06/24653) Resp: 18 (06/06/24653) Temp: 36.78 C (06/06/24653) Temp Summary: Temp Min: 35.9 C (96.6 F) Max: 36.8 C (98.2 F) SpO2: 98 % (06/06/24653) O2 flow rate: Supplemental O2 Delivery: Room Air, None (06/06/24653) Vital Signs Last 24 Hours: Temperature: Most Recent Temperature Av.2 C Min: 35.89 C Max: 36.78 C Pulse: Pulse Av.2 Min: 79 Max: 96 Respirations: Resp Av.7 Min: 16 Max: 18 SpO2: SpO2 Av.3 % Min: 98 % Max: 100 % Systolic BP: Most Recent Systolic BP Av.6 mmHg Min: 88 mmHg Max: 102 mmHg General: alert, pleasant, mildly uncomfortable Head: normocephalic, atraumatic Eyes: sclera clear without injection or icterus, no redness Mouth: moist mucosa, no oral ulcers or lesions, dentition normal Oropharynx: clear without exudate or lesion Lymph: no anterior or posterior cervical, posterior auricular, or supraclavicular adenopathy Lungs: clear to auscultation bilaterally without wheezes, rales or rhonchi Heart: tachycardic, +S1, +S2, no murmurs, rubs or gallops Abd: epigastic tenderness Extremities: no clubbing, cyanosis, or edema Neuro: alert and answers questions appropriately Skin: erythematous macular rash on L>R cheek and chin and lacy reticulated rash on RUE, similar to previous MUSCULOSKELETAL: -Hands: normal -Wrists: normal -Elbows: normal -Knees: normal -Ankles: normal -Feet: normal LABS: Labs reviewed as indicated below: Significant for leukopenia 3.2 (stable), Hgb 9.4, platelets normal, ESR and CRP stable (35 and 31),ferritin pending, transaminases decreasing, TG stable to improving, hypocalcemia Following labs are pending: IL-2 receptor CXCL9, IL-18 DESTINY and dsDNA by IFA ANCA Serum light chains 24 urine protein IgG subclasses Histone ab Pathology: BM biopsy with reactive changes, no hemophagocytosis seen, skin bx with mild lymphocyticinfiltration, but no significant neutrophilic predominance RADIOLOGY: N/a IMPRESSION/RECOMMENDATION: 29 year old female with concern for AOSD with evolving MAS vs SLE vs serum sickness or serum sickness like reaction. Her course has been complicated by acute pancreatitis, troponin leak and possible drug rash (likely from anakinra), subnephrotic range proteinuria. Will continue to treat with solumedrol and Anakinra (decreased dose). Suspect pancreatitis is unrelated to the inflammatory rheumatic process and secondary to gallstones. Will continue to closely monitor labs as below. RHEUMATOLOGY CONCURRENT CARE SUGGESTION(S): Decrease solumedrol to 40 mg IV daily Continue Anakinra 100 mg daily Continue to trend daily CBC with diff, CMP, ESR and CRP, Coags, D-dimer, Liver enzymes, Ferritin, LDH, complements Continue to follow DESTINY with IFA, dsDNA with IFA, Soluble Il- 2 receptor, (sCD25 or Angelia-2R), CXCL9 ,Immunoglobulin levels; IgG, A and M, and send-out labs (IL- 18, CXCL9, plasma neopterin, soluble CD163, soluble IL-2R) Management of gallstone pancreatitis as per primary team and surgery, cholecystectomy planned for early next week Given that she has had rash to several DMARD therapies (SSZ, cimzia, and adalimumab biosimilar) andlikely rash from anakinra as well, will need to determine optimal outpatient DMARD therapy. Consider GER-inhibitor as outpatient given different mechanism of action. Discussed with primary team. * Primitivo Barrett MD - 06/06/2024 6:29 AM EST PROGRESS NOTE - Tra[place]/Emergency [place] [facility] [place] [address] Name: Bhavin Wilson Location: [place] [address]/B Date: 06/06/2024 Time: 6:29 AM DIAGNOSIS: pancreatitis, cholelithiasis SUBJECTIVE: No acute events overnight. AF, VSS, on RA. Patient not eating well - feels very distended, bloated today. Pain well controlled. OBJECTIVE: Most Recent Vital Signs: BP: 102 mmHg/69 mmHg (06/06/24199) Pulse: 85 (06/06/24199) Resp: 16 (06/06/24199) Temp: 36.28 C (06/06/24199) Temp Summary: Temp Min: 35.9 C (96.6 F) Max: 36.4 C (97.5 F) SpO2: 98 % (06/06/24199) O2 flow rate: Supplemental O2 Delivery: Room Air, None (06/05/242221) Vital Signs Last 24 Hours: Systolic BP: Most Recent Systolic BP Av mmHg Min: 96 mmHg Max: 107 mmHg Temperature: Most Recent Temperature Av.1 C Min: 35.89 C Max: 36.39 C Pulse: Pulse Av Min: 79 Max: 85 Respirations: Resp Av.7 Min: 16 Max: 18 SpO2: SpO2 Av.5 % Min: 98 % Max: 100 % In / Out Past 24 Hrs: Intake/Output Summary (Last 24 hours) at 06/06/2024 0629 Last data filed at 06/06/2024 0329 Gross per 24 hour Intake 2363.91 ml Output 200 ml Net 2163.91 ml Physical Exam: Gen: no acute distress Neck: supple CV: RRR Chest: nonlabored breathing Abdomen: soft, disetnded, tympanic, mild generalized tenderness - mostly around epigastrium Neuro: AOX3 Extremities: warm, well perfused LABS: Labs reviewed as indicated below: BMP Lab results within last 7 days (see chart for full results) Units 06/05/24 0858 06/05/24 0551 06/04/24 1133 06/04/24 0543 06/03/24 0557 06/02/24 1431 06/01/24 1136 SODIUM mmol/L -- 137 -- 133* 134* < > 135 POTASSIUM mmol/L -- 3.3* -- 3.7 3.4* < > 4.5 CHLORIDE mmol/L -- 107 -- 105 104 < > 99 CO2 mmol/L -- 19* 18* 19* 21* < > 25 BUN mg/dL -- 10 -- 11 6 < > 10 CREATININE mg/dL -- 0.4* -- 0.4* 0.5 < > 0.5 Phosphorus mg/dL 2.1* -- -- -- -- -- -- Magnesium mg/dL -- -- -- -- -- -- 2.2 < > = values in this interval not displayed. CBC Lab results within last 7 days (see chart for full results) Units 06/06/24 0512 06/05/24 0552 06/04/24 0543 HGB g/dL 9.4* 9.0* 9.1* HCT % 31.0* 29.0* 29.3* WBC K/uL 3.28* 3.12* 3.75* PLT K/uL 301 319 329 Neutrophils % % 79.8* 79.2* 78.9* Monocytes % % 3.4 2.9 2.4 Eosinophils % % 0.0 0.0 0.0 HEPATIC PANEL Lab results within last 7 days (see chart for full results) Units 06/05/24 0551 06/04/24 0543 06/03/24 0557 Protein g/dL 5.1* 5.5* 5.0* Bilirubin, Total mg/dL 0.2 0.2 0.3 Alkaline Phosphatase U/L 89 95 93 AST U/L 121* 134* 137* ALT U/L 43* 41* 42* TROPONIN Lab results within last 7 days (see chart for full results) Units 06/04/24 1133 06/04/24 0855 06/04/24 0543 Troponin T, High Sensitivity ng/L 137* 147* 125* LACTIC ACID Lab results within last 7 days (see chart for full results) Units 06/04/24 1205 06/04/24 1032 Lactate mmol/L 0.9 1.1 IMAGING: No imaging results in the last 24 hours IMPRESSION: Principal Problem: Undifferentiated inflammatory polyarthritis (HCC) Active Problems: Anemia of chronic disease MAS (macrophage activation syndrome) (HCC) Still's disease (HCC) Rash Chest pain, non-cardiac Idiopathic acute pancreatitis Gallstone pancreatitis Isolated proteinuria without specific morphologic lesion Resolved Problems: * No resolved hospital problems. * 29 yo F w pancreatitis in the setting of autoimmune workup w suspicion for Still's disease and cholelithiasis. Now w distention - likely ileus in setting of pancreatitis and opioid use PLAN: - will postpone OR for 06/08 - please order bowel regimen, KUB - ambulate - EGS will follow Patient seen and discussed w Dr Bina Barrett MD, PGY-4 General Surgery [facility] Cosigned by Jono Curran MD at 06/06/2024 11:33 AM EST Associated attestation - Jono Curran MD - 06/06/2024 11:33 AM EST I saw and evaluated the patient today. I have reviewed the resident/fellow physician note and agree. Distended today Trend exam Will hold on Lap alexa until this resolves * Flex Nunez MD - 06/06/2024 6:01 AM EST PROGRESS NOTE - Internal Medicine [place] [facility] [place] [address] Name: Bhavin Wilson [place] [facility] [place] Date: 06/06/2024 Time: 11:38 AM Date of admission: 06/02/2024 Hospital length of stay: 4 days Subjective Overnight Events: No acute events overnight. Subjective: Patient seen and examined at bedside. Patient states she feels her pain is improved since yesterdaybut that she feels leg weakness that makes standing difficult as well as tingling and numbness overher face. She feels more bloated today but denies nausea. All systems were reviewed, all pertinent findings were documented above, otherwise negative. Objective CONSTITUTIONAL DATA / OBJECTIVE: Vital Signs (Most Recent): Blood Pressure: 109/65 mmHg Last 12H: Most Recent Systolic BP Av mmHg Min: 88 mmHg Max: 109 mmHg Pulse: 92 Last 12H: Pulse Av Min: 85 Max: 96 Temperature: 36.6 C (97.9 F) Last 12H: Most Recent Temperature Av.6 C Min: 36.28 C Max: 36.78 C Respiratory Rate: 18 O2 Saturation: 94 % Vital Signs (Last 24 Hours): Pulse Av Min: 79 Max: 96 No data recorded Most Recent Systolic BP Av.6 mmHg Min: 88 mmHg Max: 109 mmHg Most Recent Diastolic BP Av.3 mmHg Min: 64 mmHg Max: 72 mmHg Resp Av Min: 16 Max: 18 Most Recent Temperature Av.3 C Min: 35.89 C Max: 36.78 C SpO2 Av.3 % Min: 94 % Max: 100 % Intake & Output Summary (Last 24 hours): Intake/Output Summary (Last 24 hours) at 06/06/2024 1138 Last data filed at 06/06/2024 0922 Gross per 24 hour Intake 2483.91 ml Output 350 ml Net 2133.91 ml Height & Weight: Height: 162.6 cm (5' 4") (06/02/24 1940) Weight: 55.3 kg (122 lb) (06/06/24 0600) Weight change: 0.045 kg (1.6 oz) Body mass index is 20.94 kg/m. Telemetry: Brief episode of sinus tachycardia up to 130 bpm but otherwise NSR overnight Physical Examination: General: Patient not in distress HEENT: normocephalic, atraumatic Heart: Regular rate and rhythm; S1 and S2 present; no murmurs, rubs or gallops. Bilateral radial and PT pulses 2+ Pulmonary: Lungs clear to auscultation bilaterally; no wheezes, rhonchi or crackles. Abdomen: Tense, distended. Mild tenderness to palpation in left upper and lower quadrants. No tenderness to palpation in right upper or right lower quadrants. No rebound or guarding, no suprapubic tenderness MSK: Gross motor function intact, no tenderness to palpation over MCP joints bilaterally Extremities: 1+ nonpitting edema to bilateral LE up to knees, consistent from prior Skin: [place], warm, continued lacy pink rash over bilateral posterior arms and left cheek, no significant changes from yesterday Neuro: AAOx3. No gross motor or sensory deficits. Negative Chvostek sign Psych: Appropriate mood and affect Peripheral Line Lower;Right Arm 20 Gauge (Active) Number of days: 4 Laboratory Values: reviewed. -- Brief labs below include the 7 most recent results over the past week. No results in the last 7 days - inpatent use only Lab results within last 7 days (see chart for full results) Units 06/06/24 0512 06/05/24 0858 06/05/24 0551 06/04/24 1133 06/04/24 0543 06/03/24 0557 06/02/24 1431 06/01/24 1136 SODIUM mmol/L 137 -- 137 -- 133* 134* 130* 135 POTASSIUM mmol/L 3.8 -- 3.3* -- 3.7 3.4* 4.4 4.5 CHLORIDE mmol/L 107 -- 107 -- 105 104 97* 99 CO2 mmol/L 18* -- 19* 18* 19* 21* 22 25 EGFR mL/min >90 -- >90 -- >90 >90 >90 >90 BUN mg/dL 9 -- 10 -- 11 6 10 10 CREATININE mg/dL 0.4* -- 0.4* -- 0.4* 0.5 0.5 0.5 eGFR (CysC) mL/min -- 53* -- -- -- -- -- -- GLUCOSE mg/dL 80 -- 86 -- 90 95 89 99 CALCIUM mg/dL 4.5* -- 6.3* -- 7.6* 7.1* 7.8* 8.1* Magnesium mg/dL 2.4 -- -- -- -- -- -- 2.2 Phosphorus mg/dL -- 2.1* -- -- -- -- -- -- ANION GAP mmol/L -- 11 -- 9 9 11 11 Lab results within last 7 days (see chart for full results) Units 06/06/24 0512 06/05/24 0552 06/04/24 0543 06/03/24 0557 06/02/24 1431 06/01/24 1136 WBC K/uL 3.28* 3.12* 3.75* 4.46 4.32 3.53* HGB g/dL 9.4* 9.0* 9.1* 8.5* 8.7* 10.2* HCT % 31.0* 29.0* 29.3* 26.6* 27.3* 31.9* PLT K/uL 301 319 329 321 362 438* MCV fL 86.4 84.8 84.7 84.7 83.0 83.3 Lab results within last 7 days (see chart for full results) Units 06/04/24 1133 06/04/24 0855 06/04/24 0543 Troponin T, High Sensitivity ng/L 137* 147* 125* BNP, NT-Pro pg/mL -- -- 1,482* Lab results within last 7 days (see chart for full results) Units 06/06/24 0512 06/05/24 0551 06/04/24 0543 06/03/24 0557 Prothrombin Time seconds 13.5 13.0 13.1 13.6 INR 1.0 1.0 1.0 1.0 aPTT seconds 35 36 38 40* D-Dimer ug/mL FEU -- 4.09* 3.77* 2.70* Lab results within last 7 days (see chart for full results) Units 06/06/24 0512 06/05/24 0551 06/04/24 0543 06/03/24 0557 06/02/24 1431 06/01/24 1136 Albumin g/dL 2.2* 2.2* 2.3* 2.1* 2.6* 2.7* Protein g/dL 5.1* 5.1* 5.5* 5.0* 5.9* | 6.2 5.9* Bilirubin, Total mg/dL 0.2 0.2 0.2 0.3 0.3 0.3 Bilirubin, Direct mg/dL -- -- -- -- <0.2 -- AST U/L 109* 121* 134* 137* 156* 171* ALT U/L 41* 43* 41* 42* 47* 54* Alkaline Phosphatase U/L 90 89 95 93 112 118 Triglycerides mg/dL 465* 507* 411* 352* -- 456* Lab results within last 7 days (see chart for full results) Units 06/06/24 0512 06/05/24 0551 06/04/24 1205 06/04/24 1032 06/04/24 0543 06/03/24 0557 06/01/24 1136 Lactate mmol/L -- -- 0.9 1.1 -- -- -- Ferritin ng/mL -- 7,613* -- -- 9,351* 9,201* 9,974* CRP (Inflammatory Marker) mg/L 31* 32* -- -- 56* 67* 65* ESR mm/hour 35* 32* -- -- 41* 29* 47* Cultures: reviewed. Recent Cultures (2 Weeks) 06/02/2024 06/02/2024 11:07 PM 10:17 PM BLOOD CULTURE GROWTH -- No growth to date No growth to date QUANT URINE CULTURE GROWTH No significant growth -- Radiographic Studies: reviewed. XR ABDOMEN 1 VIEW Result Date: 06/06/2024 IMPRESSION Variable gaseous distention of the colon. Nonobstructive bowel gas pattern. US ABDOMEN COMPLETE Result Date: 06/05/2024 IMPRESSION 1. Heterogenous appearance of the pancreas with trace fluid about the pancreatic head inkeeping with known pancreatitis 2. Cholelithiasis with trace pericholecystic fluid a possibly related to pancreatitis. The gallbladder wall is at the upper limits of normal in thickness negative sonographic Turner's sign. Findings are equivocal for equivocal for acute cholecystitis. Fluid cystitis3. Hepatic steatosis. CT PULMONARY EMBOLUS W CONTRAST Result Date: 06/04/2024 IMPRESSION 1. No pulmonary embolism. 2. Acute interstitial edematous pancreatitis in the imaged upper abdomen, new in the short interval from 06/02/2024. 3. Mild multifocal infectious/inflammatory nodular opacities in the lungs. 4. Trace pleural effusions. 5. Axillary/subpectoral lymphadenopathy, of ten related to connective tissue disease, unchanged on the left and improved on the right since 01/28/2024. Current Facility-Administered Medications: albumin, human 25 % inj 25 g, 25 g, Intravenous, Q12H, Flex Nunez MD, Last Rate: 100 mL/hr at 06/06/24 1059, 25 g at 06/06/24 1059 calcium CARBonate (Tums E-X) tab CHEW 750 mg, 750 mg, Oral, TID(AM/NOON/HS), Flex Nunez MD, 750mg at 06/06/24 0941 [START ON 06/07/2024] methylPREDNISolone sodium succ (SOLU-Medrol) inj 40 mg, 40 mg, Intravenous, Daily(AM), Flex Nunez MD Polyethylene Glycol 3350 (Miralax) oral powder 17 g, 1 Packet, Oral, Daily(AM), Flex Nunez MD senna (Senokot) 1 Tablet, 1 Tablet, Oral, Daily(AM), Flex Nunez MD, 1 Tablet at 06/06/24 0941 Anakinra (Kineret) inj 100 mg, 100 mg, Subcutaneous, Daily(AM), Flex Nunez MD, 100 mg at 06/06/24 0820 HYDROmorphone (Dilaudid) tab 2 mg, 2 mg, Oral, Q4H PRN, Flex Nunez MD, 2 mg at 06/05/24 1507 HYDROmorphone (Dilaudid) tab 4 mg, 4 mg, Oral, Q4H PRN, Flex Nunez MD, 4 mg at 06/05/24 2049 potassium and sodium phosphate (Phos-Nak) oral powder 1 Packet, 1 Packet, Oral, TID(AM/NOON/HS), Flex Nunez MD, 1 Packet at 06/06/24 1136 Acetaminophen (Tylenol) tab 650 mg, 650 mg, Oral, Q6H, Flex Nunez MD, 650 mg at 06/06/24 1136 Fenofibrate (Lofibra) tab 160 mg, 160 mg, Oral, Daily(AM), Flex Nunez MD, 160 mg at 06/06/24 0819 Isolyte-S pH 7.4 infusion, , Intravenous, Continuous, Flex Nunez MD, Last Rate: 100 mL/hr at 06/06/24 0329, Rate Verify at 06/06/24 0329 Morphine Sulfate (PF) inj 3 mg, 3 mg, IV Push, Q4H PRN, Flex Nunez MD, 3 mg at 06/06/24 0003 FLUoxetine (PROzac) cap 20 mg, 20 mg, Oral, Daily 1500, Linwood Carrillo DO, 20 mg at 06/05/24 1506 levothyroxine (Levoxyl) tab 88 mcg, 88 mcg, Oral, Daily 0630, Flex Nunez MD, 88 mcg at 506 omeprazole (PriLOSEC) cap 40 mg, 40 mg, Oral, Daily(AM), Flex Nunez MD, 40 mg at 06/06/24 0820 sodium chloride 0.9 % flush/inj 3 mL, 3 mL, IV Push, PRN, Noah Marie DO SUMAtriptan (Imitrex) tab 12.5 mg, 12.5 mg, Oral, Q2H PRN, Noah Marie DO Assessment & Plan Assessment and Plan: Principal Problem: Undifferentiated inflammatory polyarthritis (HCC) (POA: Yes) Active Problems: Anemia of chronic disease (POA: Yes) MAS (macrophage activation syndrome) (HCC) (POA: Unknown) Still's disease (HCC) (POA: Unknown) Rash (POA: Unknown) Chest pain, non-cardiac (POA: Unknown) Idiopathic acute pancreatitis (POA: Unknown) Gallstone pancreatitis (POA: Unknown) Isolated proteinuria without specific morphologic lesion (POA: Unknown) Resolved Problems: * No resolved hospital problems. * POA = Present On Admission Bhavin Wilson is a 29 year old female with PMHx of seronegative arthropathy, migraines presenting for worsening fevers and bilateral hand pain concerning for AOSD vs HLH. Bone marrow biopsy performed, awaiting results. Patient had chest/epigastric pain with elevations in troponin. Cardiac consult performed which was low suspicion for cardiac causes. CT abdomen performed showing pancreatitis.GI was consulted for further management. RUQ US performed showing gallstones but equivocal for cholecystitis. General Surgery consulted, laparoscopic cholecystectomy planned for tentatively 06/08/2024. KUB showed gaseous distention of large bowel. Likely Gallstone Pancreatitis Nevin's criteria, 1 point on admission for LDH, 3 cumulative points for hypocalcemia, base deficit. Low po intake in setting of pain, last reported bowel movement 06/04/24, but still passing flatus. - General Surgery consulted, lap alexa planned for 06/08/24 - High protein low fat as tolerated - Albumin 25g 25% for 48 hours - Isolyte 100/hr - Fenofibrate 160 - Tylenol 650 q8h - Dilaudid 2 Q4 p.r.n. pain moderate - Dilaudid 4 Q4 p.r.n. pain severe - Morphine 3 mg IV q4h PRN pain breakthrough Hypocalcemia I-jeff 0.72 this morning, likely in setting of pancreatitis. - calcium carbonate 750 TID - calcium gluconate - Will monitor magnesium, vitamin-D levels - Repeat I-jeff later today MAS vs HLH Bone marrow biopsy performed 06/04/24, awaiting results. Per heme note 06/05/24, unlikely HLH basedon constellation of symptoms and low H score for determination of HLH as well as biopsy review. Unclear etiology at this time. Differential includes serum sickness, serum sickness like reaction, drug-induced reactions. - methylprednisolone 55 mg -> 40 mg daily per rheum recs - Anakinra 100 daily - Heme consulted, appreciate recs - Rheum consulted, appreciate recs Proteinuria Increasing proteinuria over the past few days but subnephrotic. CT abd/pelvis 06/02/24 showing extensive prominent retroperitoneal lymph nodes with borderline enlargement. GFR: 86 per CKD-EPI Creatinine/Cys C equation 53 per CKD-EPI Cys C equation - 24 hr urine protein - Nephrology consulted, appreciate recs Likely drug induced exanthem Shave biopsy performed 06/04/24 with mild focal perivascular lymphocytic infiltrate not consistent with HLH or Still's disease pattern. Repeat sampling recommended with deeper portions of tissue. Perheme note 06/05/24, potential for punch biopsy for more data - Derm consulted, appreciate further recs New onset Hypothyroidism TSH 10.6, T4 0.8, started on Levoxyl 25 overnight - Levothyroxine 88 mcg - Re-check TSH, free T4 in 4-6 weeks Acute normocytic anemia Tsat 18%, likely anemia of chronic disease based on most recent iron panel, s/p IV Venofer at OSH - Will treat underlying illness Communication: Spoke with patient's fiance, and called patient's mother to provide updates on patient's hospital course and the still uncertain diagnosis/sequence of events that led to the patient's current condition. Informed both that the patient will likely have cholecystectomy on 06/08/24 and that patient will receive albumin at this time. Chronic Problems: Migraines: Continue [employer] Triptan, hold topamax Misc: Diet: Regular Bowel Regimen: Miralax scheduled Last Bowel Movement: 06/04/24 (06/04/241723) Stool Description: EvieyDarrick (06/04/24 172) Sleep: No sleep protocol ordered Burnham: Not indicated at this time PT/OT: Not indicated at this time GI prophylaxis: Omeprazole VTE Prophylaxis: Holding in case of procedure today Code Status: Full LINES / DRAINS / TUBES: LINES ALL Duration Peripheral Line Lower;Right Arm 20 Gauge 4 days List of services consulted/following: ADULT PHYSICAL THERAPY CONSULT IP ADULT OCCUPATIONAL THERAPY CONSULT IP RHEUMATOLOGY CONSULT IP HEMATOLOGY CONSULT IP CARDIOLOGY CONSULT IP DERMATOLOGY CONSULT IP GASTROENTEROLOGY CONSULT IP NEPHROLOGY CONSULT IP GENERAL SURGERY CONSULT IP Patient was discussed with attending physician, DO Flex Zhao MD Med-Peds PGY-1 Cosigned by Linwood Carrillo DO at 06/07/2024 8:04 AM EST Associated attestation - Linwood Carrillo DO - 06/07/2024 8:04 AM EST I saw and evaluated the patient 06/06. I have reviewed the resident/fellow physician note and agree. BMBx likely ruled out HLH no evidence hemophagocytosis per heme Awaiting CXCL9 and IL2R although AOSD also less likely per rheum Pending DESTINY IFA, histone AB as well Considering possible serum sickness 2/2 adalimumab Reduce steroids today, Anakinra reduced and ultimate decision w/r/t anakinra care home tbd althoughlikely will be discontinued in the coming days Explore Rinvoq (?) as approaches dc Identify optimal timing of lap alexa in discussion with gen surg for gallstone panc and iso cholelithiasis; dilaudid po for panc pain, cont miralax. Passing flatus but possibly developing ileus. Aggressive Ca repletion and Vit D I spent a total of 65 minutes coordinating, documenting, and providing care for this patient excluding time spent in the performance of separately billed services or time spent by another provider/QHP. * Jama Edwards DO - 06/05/2024 10:01 AM EST PROGRESS NOTE - Gastroenterology [place] [facility] [place] [address] Name: Bhavin Wilson [place] [facility] [place] Date: 06/05/2024 Time: 1:35 PM SUBJECTIVE: The patient was seen and examined, chart reviewed. Still having some pain, tolerated diet so-so yesterday, no n/v. ROS: GI: Per HPI, otherwise negative. OBJECTIVE: Vital Signs Last 24 Hours: Systolic BP: Most Recent Systolic BP Av.8 mmHg Min: 101 mmHg Max: 113 mmHg Temperature: Most Recent Temperature Av C Min: 35.61 C Max: 36.39 C Pulse: Pulse Av.3 Min: 68 Max: 83 Respirations: Resp Av.3 Min: 16 Max: 18 SpO2: SpO2 Av.8 % Min: 95 % Max: 100 % Constitutional: no acute distress, resting comfortably in bed, speaking in full sentences CV: normal rate and rhythm, no murmur, gallops or rub Chest: normal respiratory effort, lungs clear to auscultation Abdomen:tender in epigastric area, negative murphys sign, no distention. LABS: Labs reviewed as indicated below: Hgb: 9.0 WBC: 3.12 Platelets: 319 Cr: 0.4 K: 3.3 Mg: N/a Ca: 6.3 with correction for albumin 7.7 Triglycerides 507 CRP 32 ESR 32 Albumin 2.2 AST 121 ALT 43 Alkaline phosphatase 89 Total bilirubin 0.2 IMAGING: US ABDOMEN COMPLETE Result Date: 06/05/2024 IMPRESSION 1. Heterogenous appearance of the pancreas with trace fluid about the pancreatic head in keeping with known pancreatitis 2. Cholelithiasis with trace pericholecystic fluid a possibly related to pancreatitis. The gallbladder wall is at the upper limits of normal in thickness negative sonographic Turner's sign. Findings are equivocal for equivocal for acute cholecystitis. Fluid cystitis 3. Hepatic steatosis. CT PULMONARY EMBOLUS W CONTRAST Result Date: 06/04/2024 IMPRESSION 1. No pulmonary embolism. 2. Acute interstitial edematous pancreatitis in the imaged upper abdomen, new in the short intervalfrom 06/02/2024. 3. Mild multifocal infectious/inflammatory nodular opacities in the lungs. 4. Trace pleural effusions. 5. Axillary/subpectoral lymphadenopathy, often related to connective tissue disease, unchanged on the left and improved on the right since 01/28/2024. CT ABD/PELVIS W IV CONTRAST - WO ORAL CONTRAST Result Date: 06/02/2024 IMPRESSION: 1.Borderline enlarged retroperitoneal and iliac chain lymph nodes. Upper limits of normal-sized spleen. IMPRESSION: 29-year-old female being worked up and treated for adult onset Still's disease questionmacrophage activating syndrome who was found to have elevated lipase and imaging findings consistent with pancreatitis. Ultrasound overnight revealed gallstones. RECOMMENDATIONS: -follow-up studies for other pancreatitis causes although it seems that gallstones is the likely culprit here -recommend surgery consult for gallstone pancreatitis. -c/w IVF -pain control -anti-emetics -GI will remain available if any questions arise. I have discussed the case with my attending, Dr Mena. Cosigned by August Mena MD at 06/05/2024 9:18 PM EST Associated attestation - August Mena MD - 06/05/2024 9:18 PM EST I saw and evaluated the patient today. I have reviewed the resident/fellow physician note and agree. August Mena MD * Tiffanie Fisher MD - 06/05/2024 8:43 AM EST PROGRESS NOTE - Rheumatology [facility] [place] [address] Name: Bhavin Wilson [place] [facility] [place] Date: 06/05/2024 Time: 12:37 PM PATIENT ASSESSMENT AND FINDINGS: Patient seen and examined at bedside. She continues to be afebrile and have improvement in joint pain/stiffness. However, today she notes that rash on her face, chest, and arms is worsening. She noticed worsening of the rash after getting another dose of Anakinra. Abdominal pain improved since yesterday. MUSCULOSKELETAL ROS: . Abnormal: joint pain OTHER ROS: . Constitutional: fatigue . Gastrointestinal: abdominal pain . Skin: rash All other ROS negative. PHYSICAL EXAM: Most Recent Vital Signs: BP: 102 mmHg/71 mmHg (06/05/241050) Pulse: 83 (06/05/241050) Resp: 16 (06/05/241050) Temp: 36.39 C (06/05/241050) Temp Summary: Temp Min: 35.6 C (96.1 F) Max: 36.4 C (97.5 F) SpO2: 100 % (06/05/241050) O2 flow rate: Supplemental O2 Delivery: Room Air, None (06/05/241050) Vital Signs Last 24 Hours: Temperature: Most Recent Temperature Av C Min: 35.61 C Max: 36.39 C Pulse: Pulse Av.3 Min: 68 Max: 83 Respirations: Resp Av.3 Min: 16 Max: 18 SpO2: SpO2 Av.8 % Min: 95 % Max: 100 % Systolic BP: Most Recent Systolic BP Av.8 mmHg Min: 101 mmHg Max: 113 mmHg General: alert, healthy, and no distress HENT: normocephalic, external ears normal, moist mucosa Eye Exam: EOMI, conjunctiva are pink and non-injected, sclera clear Heart: regular rate & rhythm, no murmur, and no gallops Lungs: clear to auscultation , no rales, wheezes or rhonchi Extremities: no clubbing, no cyanosis, non-pitting edema of bilateral ankles Skin: skin color, texture, turgor are normal, bilateral arms, chest, legs and face with patchy erythematous macules/papules, slightly worse compare to yesterday Musculoskeletal Exam: . Normal LABS: Labs reviewed as indicated below: Lab results within last 7 days (see chart for full results) Units 06/05/24 0551 06/04/24 0543 06/03/24 0557 Triglycerides mg/dL 507* 411* 352* Lab results within last 7 days (see chart for full results) Units 06/05/24 0551 06/04/24 0543 06/03/24 0557 Prothrombin Time seconds 13.0 < > 13.6 aPTT seconds 36 < > 40* INR 1.0 < > 1.0 D-Dimer ug/mL FEU 4.09* < > 2.70* Fibrinogen mg/dL -- -- 389 < > = values in this interval not displayed. Lab results within last 7 days (see chart for full results) Units 06/05/24 0551 06/04/24 1133 06/04/24 0543 06/03/24 0557 06/02/24 1431 06/01/24 1136 DESTINY Screen -- -- -- Negative -- -- dsDNA Antibody Interpretation -- -- -- Negative Negative -- dsDNA Antibody Value IU/mL -- -- -- 2.9 3.0 -- SHANNAN Antibodies Screen Interpretation -- -- -- Negative -- -- SHANNAN Antibodies Screen Value Ratio -- -- -- 0.3 -- -- Complement C3 mg/dL -- 85* -- 70* -- -- Complement C4 mg/dL -- 19 -- 17 -- -- CRP (Inflammatory Marker) mg/L 32* -- 56* 67* -- 65* ESR mm/hour 32* -- 41* 29* -- 47* Ferritin ng/mL 7,613* -- 9,351* 9,201* -- 9,974* LD U/L 532* -- 541* 557* 632* 633* Lab results within last 7 days (see chart for full results) Units 06/05/24 0551 06/04/24 0543 06/03/24 0557 06/02/24 1431 AST U/L 121* 134* < > 156* ALT U/L 43* 41* < > 47* Albumin g/dL 2.2* 2.3* < > 2.6* Alkaline Phosphatase U/L 89 95 < > 112 Bilirubin, Total mg/dL 0.2 0.2 < > 0.3 Bilirubin, Direct mg/dL -- -- -- <0.2 Protein g/dL 5.1* 5.5* < > 6.2 < > = values in this interval not displayed. CBC Lab results within last 7 days (see chart for full results) Units 06/05/24 0552 06/04/24 0543 06/03/24 0557 WBC K/uL 3.12* 3.75* 4.46 HGB g/dL 9.0* 9.1* 8.5* HCT % 29.0* 29.3* 26.6* PLT K/uL 319 329 321 BMP Lab results within last 7 days (see chart for full results) Units 06/05/24 0551 06/04/24 1133 06/04/24 0543 06/03/24 0557 SODIUM mmol/L 137 -- 133* 134* POTASSIUM mmol/L 3.3* -- 3.7 3.4* CHLORIDE mmol/L 107 -- 105 104 CO2 mmol/L 19* 18* 19* 21* BUN mg/dL 10 -- 11 6 CREATININE mg/dL 0.4* -- 0.4* 0.5 GLUCOSE mg/dL 86 -- 90 95 Lab results within last 7 days (see chart for full results) Units 06/04/24 2318 06/02/24 2307 Color, Urine Yellow Yellow Clarity, Urine Clear Clear Glucose, Urine mg/dL Negative Negative Bilirubin, Urine Negative Negative Specific [place], Urine 1.042* 1.050* Blood, Urine Moderate* Small* pH, Urine Units 6.0 6.5 Protein, Urine mg/dL 30* 30* Protein, Random Urine mg/dL 99 53 Urobilinogen, Urine mg/dL Normal Normal Nitrite, Urine Negative Negative Esterase, Urine Negative Negative RBC, Urine /HPF 30-49* 10-19* WBC, Urine /HPF 0-2 3-5* Bacteria, Urine /HPF 0-25 51-100* Creatinine, Random Urine mg/dL 86 85 Protein/ Creatinine Ratio, Urine mg/g 1,151* 624* IMAGING: US ABDOMEN COMPLETE Result Date: 06/05/2024 IMPRESSION 1. Heterogenous appearance of the pancreas with trace fluid about the pancreatic head inkeeping with known pancreatitis 2. Cholelithiasis with trace pericholecystic fluid a possibly related to pancreatitis. The gallbladder wall is at the upper limits of normal in thickness negative sonographic Turner's sign. Findings are equivocal for equivocal for acute cholecystitis. Fluid cystitis 3. Hepatic steatosis. IMPRESSION/RECOMMENDATION: 29 year old female with Concern for AOSD with evolving MAS/secondary HLHvs SLE. Her course has been complicated by acute pancreatitis, elevated trops, and possible drug rash. Will continue to treat with solumedrol and Anakinra, but will decrease Anakinra for now due to possible drug rash. Will continue to closely monitor labs as below. RHEUMATOLOGY CONCURRENT CARE SUGGESTION(S): Continue IV solumedrol 1mg/kg daily Decrease subcutaneous Anakinra 100 mg daily Continue to trend daily CBC with diff, CMP, ESR and CRP, Coags, D-dimer, Liver enzymes, Ferritin, LDH, compliments Continue to follow bone marrow biopsy, skin biopsy, DESTINY with IFA, dsDNA with IFA, Soluble Il- 2 receptor, (sCD25 or Angelia-2R), CXCL9 , Immunoglobulin levels; IgG, A and M, and send-out labs (IL-18, CXCL9, plasma neopterin, soluble CD163, soluble IL-2R) Cosigned by oPlly Mojica MD at 06/05/2024 1:46 PM EST Associated attestation - Polly Mojica MD - 06/05/2024 1:46 PM EST I saw and evaluated the patient today. I have reviewed the resident/fellow physician note and agree. Continue to trend labs and agree with decreasing dose of anakinra (likely worsening rash related to anakinra). We will continue to follow-up on pending studies. Still not definitive that this is AOSD/MAS. Nephrology consult to evaluate for further evaluation of proteinuria which is not commonly seen in AOSD/MAS. Noted negative screening DESTINY, recommend DESTINY and dsDNA antibody by IFA as SLE still apossibility. Care for pancreatitis through primary team and GI, pancreatitis unlikely medication induced and would be rare in AOSD. Discussed with primary team. * Flex Nunez MD - 06/05/2024 5:52 AM EST PROGRESS NOTE - Internal Medicine [place] [facility] [place] [id number] Name: Bhavin Wilson [address] Date: 06/05/2024 Time: 5:53 AM Date of admission: 06/02/2024 Hospital length of stay: 3 days Subjective Overnight Events: No acute events overnight. Subjective: Patient seen and examined at bedside. Patient reports that her pain is better controlled on morphine and that she has not had another bowel movement since yesterday. She denies shortness of breath orchest pains. All systems were reviewed, all pertinent findings were documented above, otherwise negative. Objective CONSTITUTIONAL DATA / OBJECTIVE: Vital Signs (Most Recent): Blood Pressure: 103/63 mmHg Last 12H: Most Recent Systolic BP Av.7 mmHg Min: 101 mmHg Max: 113 mmHg Pulse: 77 Last 12H: Pulse Av.3 Min: 68 Max: 77 Temperature: 35.6 C (96.1 F) Last 12H: Most Recent Temperature Av.9 C Min: 35.61 C Max: 36 C Respiratory Rate: 18 O2 Saturation: 99 % Vital Signs (Last 24 Hours): Pulse Av.7 Min: 68 Max: 117 No data recorded Most Recent Systolic BP Av.4 mmHg Min: 101 mmHg Max: 113 mmHg Most Recent Diastolic BP Av.9 mmHg Min: 63 mmHg Max: 79 mmHg Resp Av.7 Min: 16 Max: 20 Most Recent Temperature Av C Min: 35.61 C Max: 36.5 C SpO2 Av.1 % Min: 95 % Max: 100 % Intake & Output Summary (Last 24 hours): Intake/Output Summary (Last 24 hours) at 06/05/2024 0553 Last data filed at 06/05/2024 0431 Gross per 24 hour Intake 2073.04 ml Output 250 ml Net 1823.04 ml Net IO Since Admission: 2,446.66 mL [06/05/24 0553] Height & Weight: Height: 162.6 cm (5' 4") (06/02/241939) Weight: 55.3 kg (121 lb 14.4 oz) (06/05/24 0600) Weight change: 0.544 kg (1 lb 3.2 oz) Body mass index is 20.92 kg/m. Telemetry: Brief episode of sinus tachycardia up to 150 bpm but otherwise NSR overnight Physical Examination: General: Patient not in distress HEENT: normocephalic, atraumatic Heart: RRR; S1 and S2 present; no murmurs, rubs or gallops. Bilateral radial and PT pulses 2+ Pulmonary: Lungs CTAB; no wheezes, rhonchi or crackles. Abdomen: Soft, mild epigastric tenderness improved from yesterday, non- distended. Normal bowel sounds and no rebound or guarding, no suprapubic tenderness MSK: Patient able to ambulate; Gross motor function intact, mild but improving tenderness over MCP joints bilaterally Extremities: 1+ nonpitting edema to bilateral LE up to knees Skin: Pearsall, warm, continued lacy pink rash over bilateral posterior arms and left cheek Neuro: AAOx3. No gross motor or sensory deficits. Psych: Appropriate mood and affect Peripheral Line Lower;Right Arm 20 Gauge (Active) Number of days: 3 Laboratory Values: reviewed. -- Brief labs below include the 7 most recent results over the past week. No results in the last 7 days - inpatent use only Lab results within last 7 days (see chart for full results) Units 06/04/24 1133 06/04/24 0543 06/03/24 0557 06/02/24 1431 06/01/24 1136 SODIUM mmol/L -- 133* 134* 130* 135 POTASSIUM mmol/L -- 3.7 3.4* 4.4 4.5 CHLORIDE mmol/L -- 105 104 97* 99 CO2 mmol/L 18* 19* 21* 22 25 EGFR mL/min -- >90 >90 >90 >90 BUN mg/dL -- 11 6 10 10 CREATININE mg/dL -- 0.4* 0.5 0.5 0.5 GLUCOSE mg/dL -- 90 95 89 99 CALCIUM mg/dL -- 7.6* 7.1* 7.8* 8.1* Magnesium mg/dL -- -- -- -- 2.2 ANION GAP mmol/L -- 9 9 11 11 Lab results within last 7 days (see chart for full results) Units 06/04/24 0543 06/03/24 0557 06/02/24 1431 06/01/24 1136 WBC K/uL 3.75* 4.46 4.32 3.53* HGB g/dL 9.1* 8.5* 8.7* 10.2* HCT % 29.3* 26.6* 27.3* 31.9* PLT K/uL 329 321 362 438* MCV fL 84.7 84.7 83.0 83.3 Lab results within last 7 days (see chart for full results) Units 06/04/24 1133 06/04/24 0855 06/04/24 0543 Troponin T, High Sensitivity ng/L 137* 147* 125* BNP, NT-Pro pg/mL -- -- 1,482* Lab results within last 7 days (see chart for full results) Units 06/04/24 0543 06/03/24 0557 Prothrombin Time seconds 13.1 13.6 INR 1.0 1.0 aPTT seconds 38 40* D-Dimer ug/mL FEU 3.77* 2.70* Lab results within last 7 days (see chart for full results) Units 06/04/24 0543 06/03/24 0557 06/02/24 1431 06/01/24 1136 Albumin g/dL 2.3* 2.1* 2.6* 2.7* Protein g/dL 5.5* 5.0* 6.2 5.9* Bilirubin, Total mg/dL 0.2 0.3 0.3 0.3 Bilirubin, Direct mg/dL -- -- <0.2 -- AST U/L 134* 137* 156* 171* ALT U/L 41* 42* 47* 54* Alkaline Phosphatase U/L 95 93 112 118 Triglycerides mg/dL 411* 352* -- 456* Lab results within last 7 days (see chart for full results) Units 06/04/24 1205 06/04/24 1032 06/04/24 0543 06/03/24 0557 06/01/24 1136 Lactate mmol/L 0.9 1.1 -- -- -- Ferritin ng/mL -- -- 9,351* 9,201* 9,974* CRP (Inflammatory Marker) mg/L -- -- 56* 67* 65* ESR mm/hour -- -- 41* 29* 47* Cultures: reviewed. Recent Cultures (2 Weeks) 06/02/2024 06/02/2024 11:07 PM 10:17 PM BLOOD CULTURE GROWTH -- No growth to date No growth to date QUANT URINE CULTURE GROWTH No significant growth -- Radiographic Studies: reviewed. CT PULMONARY EMBOLUS W CONTRAST Result Date: 06/04/2024 IMPRESSION 1. No pulmonary embolism. 2. Acute interstitial edematous pancreatitis in the imaged upper abdomen, new in the short interval from 06/02/2024. 3. Mild multifocal infectious/inflammatory nodular opacities in the lungs. 4. Trace pleural effusions. 5. Axillary/subpectoral lymphadenopathy, of ten related to connective tissue disease, unchanged on the left and improved on the right since 01/28/2024. CT ABD/PELVIS W IV CONTRAST - WO ORAL CONTRAST Result Date: 06/02/2024 IMPRESSION: 1. Borderline enlarged retroperitoneal and iliac chain lymph nodes. Upper limits of normal-sized spleen. 2. Otherwise, incidental findings as above. COMMENTS: Consistent with the AmericanCollege of Radiology's Incidental Findings Committee white paper (J Am Nayeli Radiol 2018): Any incidental renal lesion less than 1 cm or classified as too small to characterize, or any incidental cystic renal lesion characterized as simple-appearing, is likely benign. No follow-up imaging is recommended for these lesions per consensus recommendations based on imaging criteria. THIS DOCUMENT HAS BEEN ELECTRONICALLY SIGNED BY GLENN ULLOA MD Current Facility-Administered Medications: Acetaminophen (Tylenol) tab 650 mg, 650 mg, Oral, Q6H, Flex Nunez MD, 650 mg at 06/05/24 0507 Fenofibrate (Lofibra) tab 160 mg, 160 mg, Oral, Daily(AM), Flex Nunez MD, 160 mg at 06/04/24 1802 Isolyte-S pH 7.4 infusion, , Intravenous, Continuous, Flex Nunez MD, Last Rate: 100 mL/hr at 06/05/24 0431, Rate Verify at 06/05/24 0431 Morphine Sulfate (PF) inj 3 mg, 3 mg, IV Push, Q4H PRN, Flex Nunez MD, 3 mg at 06/05/24 0407 morphine sulfate inj 1 mg, 1 mg, IV Push, Q4H PRN, Flex Nunez MD, 1 mg at 06/05/24 0145 Polyethylene Glycol 3350 (Miralax) oral powder 17 g, 1 Packet, Oral, PRN, Flex Nunez MD senna-docusate (Senokot-S) 1 Tablet, 1 Tablet, Oral, Daily PRN, Flex Nunez MD Anakinra (Kineret) inj 200 mg, 200 mg, Subcutaneous, Daily(AM), Flex Nunez MD, 200 mg at 06/04/24 0742 FLUoxetine (PROzac) cap 20 mg, 20 mg, Oral, Daily 1500, Linwood Carrillo DO, 20 mg at 06/04/24 1628 levothyroxine (Levoxyl) tab 88 mcg, 88 mcg, Oral, Daily 0630, Flex Nunez MD, 88 mcg at 507 methylPREDNISolone sodium succ (SOLU-Medrol) inj 55 mg, 55 mg, Intravenous, Daily(AM), Flex Nunez MD, 55 mg at 06/04/24 0756 omeprazole (PriLOSEC) cap 40 mg, 40 mg, Oral, Daily(AM), Flex Nunez MD, 40 mg at 06/04/24 0741 sodium chloride 0.9 % flush/inj 3 mL, 3 mL, IV Push, PRN, Noah Marie DO SUMAtriptan (Imitrex) tab 12.5 mg, 12.5 mg, Oral, Q2H PRN, Noah Marie DO topiramate (topAMAX) tab 75 mg, 75 mg, Oral, QHS, Noah Marie DO, 75 mg at 06/04/242014 Assessment & Plan Assessment and Plan: Principal Problem: Undifferentiated inflammatory polyarthritis (HCC) (POA: Yes) Active Problems: Anemia of chronic disease (POA: Yes) MAS (macrophage activation syndrome) (HCC) (POA: Unknown) Still's disease (HCC) (POA: Unknown) Rash (POA: Unknown) Chest pain, non-cardiac (POA: Unknown) Idiopathic acute pancreatitis (POA: Unknown) Resolved Problems: * No resolved hospital problems. * POA = Present On Admission Bhavin Wilson is a 29 year old female with PMHx of seronegative arthropathy, migraines presenting for worsening fevers and bilateral hand pain concerning for AOSD vs HLH. Bone marrow biopsy performed, awaiting results. Patient had chest/epigastric pain with elevations in troponin. Cardiac consult performed which was low suspicion for cardiac causes. CT abdomen performed showing pancreatitis.GI was consulted for further management. RUQ US performed showing gallstones but equivocal for cholecystitis. Pancreatitis, likely 2/2 gallstones Patient meets criteria for pancreatitis with characteristic symptoms and imaging findings. Triglycerides elevated to 400s, likely not culprit. Patient denies alcohol use. RUQ US performed which showscholelithiasis without duct dilation. - Consult gen surg for lap alexa - High protein low carb diet as tolerated, after procedure - Isolyte 100/hr - Isolyte 500 mL bolus today - Fenofibrate 160 - IGG4 negative - Tylenol 650 q8h - Dilaudid 2 Q4 p.r.n. pain moderate - Dilaudid 4 Q4 p.r.n. pain severe - Morphine 3 mg IV q4h PRN pain breakthrough Still's disease vs HLH Bone marrow biopsy performed 06/04/24, awaiting results - methylprednisolone 1 mg/kg - Anakinra 200 -> 100 daily - Heme consulted, appreciate recs - Rheum consulted, appreciate recs Proteinuria Increasing proteinuria (subnephrotic), edema, unclear clinical picture. - Nephrology consulted, appreciate recs Rash, concern for Still's disease rash vs drug induced exanthem - Derm consulted, shave biopsy performed - Awaiting pathology results Concern for myopericarditis Patient with elevated troponin up to peak 147 with non-specific EKG changes. 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 Misc: Diet: Regular Bowel Regimen: Miralax PRN constipation Last Bowel Movement: 06/04/24 (06/04/241723) Stool Description: Mushy;Brown (06/04/241723) Sleep: No sleep protocol ordered [place]: Not indicated at this time PT/OT: Not indicated at this time GI prophylaxis: Omeprazole VTE Prophylaxis: Holding in case of procedure today Code Status: Full LINES / DRAINS / TUBES: LINES ALL Duration Peripheral Line Lower;Right Arm 20 Gauge 3 days List of services consulted/following: ADULT PHYSICAL THERAPY CONSULT IP ADULT OCCUPATIONAL THERAPY CONSULT IP RHEUMATOLOGY CONSULT IP HEMATOLOGY CONSULT IP CARDIOLOGY CONSULT IP DERMATOLOGY CONSULT IP GASTROENTEROLOGY CONSULT IP Patient was discussed with attending physician, DO Flex Zhao MD Med-Peds PGY-1 Cosigned by Linwood Carrillo DO at 06/05/2024 8:36 PM EST Associated attestation - Linwood Carrillo DO - 06/05/2024 8:36 PM EST Images from the original note were not included. I saw and evaluated the patient today. I have reviewed the resident/fellow physician note and agree. Endorses anorexia today Still with some mid epigastric pain No sig diarrhea today Morphine seems to help with pain Rash has evolved across chest more prominently BP 98/68 | Pulse 83 | Temp 36 C (96.8 F) (Tympanic) | Resp 18 | Ht 1.626 m (5' 4") | Wt 55.3 kg(121 lb 14.4 oz) | SpO2 100% | BMI 20.92 kg/m | BSA 1.58 m White female NAD AAO3 Lacy confluent erythematous rash BUE across chest to left breast Tender mid epigasrium Reg tachycardia no mrg s1/2 Nonpitting edema BLE to knee W 3.12 Hb 9 Co2 19 Cr 0.4 TG 507 Ferritin 7613 CRP 32 ESR 32 DD 4.09 Syphilis nonreactive Parvo serologies neg DESTINY Screen Negative Negative dsDNA Antibody Interpretation Negative Negative dsDNA Antibody Value <20 IU/mL 2.9 SHANNAN Antibodies Screen Interpretation Negative Negative SHANNAN Antibodies Screen Value <0.7 Ratio 0.3 Comment: Screening is based on detection of the following antibodies: dsDNA, U1- PIPE CLEANING MACHINE OPERATOR (RNP70, A, C), SS-A/Ro, SS-B / La, Marlene-1, Scl-70, Centromere B proteins and Sm proteins. CTPE IMPRESSION 1. No pulmonary embolism. 2. Acute interstitial edematous pancreatitis in the imaged upper abdomen, new in the short intervalfrom 06/02/2024. 3. Mild multifocal infectious/inflammatory nodular opacities in the lungs. 4. Trace pleural effusions. 5. Axillary/subpectoral lymphadenopathy, often related to connective tissue disease, unchanged on the left and improved on the right since 01/28/2024. US abdomen IMPRESSION 1. Heterogenous appearance of the pancreas with trace fluid about the pancreatic head in keeping with known pancreatitis 2. Cholelithiasis with trace pericholecystic fluid a possibly related to pancreatitis. The gallbladder wall is at the upper limits of normal in thickness negative sonographic Turner's sign. Findingsare equivocal for equivocal for acute cholecystitis. Fluid cystitis 3. Hepatic steatosis. Assessment Fevers Migratory polyarthralgias. Rule out AOSD Rule out HLH Rule out DILE Rule out SLE Rule out vasculitis Rule out [place] Rule out CTD Rule out IGG4RD Retroperitoneal lymphadenopathy Axillary Lymphadenopathy Inflammatory lung nodules Troponinemia NOS Rule out myocarditis Acute interstitial pancreatitis - Suspected gallstone pancreatitis. Rule out IgG4 RD Cholelithaisis without cholecystitis Bicytopenia Anemia Leukopenia NAGMA HTG Hypothyroidism Plan Pending anti-histona, DESTINY, ANCA, flow cytometry, CXCL9 / IL18 / soluble IL2R, IgG subclasses. general surgery consultation, discuss timing of lap cholecystectomy. cont steroids, reduced anakinra per Rheumatology. Appreciate multidisciplinary discussion w Rheum and Heme Onc. BMBx toxic granulation / reactive. Stop topomax. Cont ifbrate. Cont levothyroxine. High MDM D/w rheum, gen surg, GI I spent a total of 75 minutes coordinating, documenting, and providing care for this patient excluding time spent in the performance of separately billed services or time spent by another provider/QHP. * Juliocesar Rae, Medical Student - 06/04/2024 1:53 PM EST PROGRESS NOTE - HOSPITAL [place]ICINE [facility] [place] [id number] Name: Bhavin Wilson [place] [facility] [id number] Date: 06/04/2024 Date of admission: 06/02/2024 Hospital length of stay: 2 days Subjective Overnight Events: Pt with epigastric/substernal CP upon awakening this morning. Described as sharp rated as a 7/10. Constant pain and worse when taking a deep breath. Reproducible with palpation. Associated with mild SOB. EKG showing new T-wave inversion in lead V2. Subjective: Patient seen and examined at bedside. Pt notes that he pain is now concentrated in the epigastric region and radiates into the rest of her abd. Notes that this pain is a sharp stabbing pain that has been worsening since this morning when it woke her up from sleep. Pt notes that her pain is now a 9/10. Pain is worsened when taking a deep breath and with palpation. Pt notes that she had many episode s of diarrhea yesterday, but has not had any episodes this morning. Pt also notes that she has had some new rash on her b/l arms. On her R arm she notes that she previously had a rash that was resolving, but has started to worsen again. Notes that she continues to have some joint pains, primarily in her knees. Denies fevers, chills, HENRIQUEZ, dizziness, cough, SOB, n/v, dysuria, or hematuria. All systems were reviewed, all pertinent findings were documented above, otherwise negative. Objective CONSTITUTIONAL DATA / OBJECTIVE: Vital Signs (Most Recent): Blood Pressure: 102/65 mmHg Last 12H: Most Recent Systolic BP Av.6 mmHg Min: 98 mmHg Max: 114 mmHg Pulse: 84 Last 12H: Pulse Av.2 Min: 66 Max: 117 Temperature: 36.5 C (97.7 F) Last 12H: Most Recent Temperature Av C Min: 35.56 C Max: 36.5 C Respiratory Rate: 20 O2 Saturation: 100 % Vital Signs (Last 24 Hours): Pulse Av.6 Min: 61 Max: 117 No data recorded Most Recent Systolic BP Av mmHg Min: 97 mmHg Max: 114 mmHg Most Recent Diastolic BP Av.4 mmHg Min: 58 mmHg Max: 79 mmHg Resp Av.8 Min: 16 Max: 20 Most Recent Temperature Av.8 C Min: 35.56 C Max: 38.72 C SpO2 Av.8 % Min: 93 % Max: 100 % Intake & Output Summary (Last 24 hours): Intake/Output Summary (Last 24 hours) at 06/04/2024 1353 Last data filed at 06/04/2024 0800 Gross per 24 hour Intake 240 ml Output 250 ml Net -10 ml Height & Weight: Height: 162.6 cm (5' 4") (06/02/24 1940) Weight: 54.7 kg (120 lb 11.2 oz) (06/04/24 0600) Weight change: -0.59 kg (-1 lb 4.8 oz) Body mass index is 20.72 kg/m. Physical Examination: General: Patient in moderate distress secondary to pain HEENT: normocephalic, atraumatic Heart: regular rate and rhythm; S1 and S2 present; no murmurs, rubs or gallops. Pulmonary: Lungs clear to auscultation bilaterally; no wheezes, rhonchi or crackles. Abdomen: Soft, diffusely tender, non-distended. Normal bowel sounds and no rebound or guarding. MSK: Gross motor function intact Extremities: No pitting edema present at lower extremity bilaterally Skin: Pearsall, lacy erythematous rash on b/l upper extremities and chest in centripetal pattern. Neuro: No gross motor deficits. Psych: Appropriate mood and affect Peripheral Line Lower;Right Arm 20 Gauge (Active) Number of days: 2 Laboratory Values: reviewed. -- Brief labs below include the 7 most recent results over the past week. Blood Gas: No results in the last 7 days - inpatent use only Chemistry Panel: Lab results within last 7 days (see chart for full results) Units 06/04/24 0543 06/03/24 0557 06/02/24 1431 06/01/24 1136 SODIUM mmol/L 133* 134* 130* 135 POTASSIUM mmol/L 3.7 3.4* 4.4 4.5 CHLORIDE mmol/L 105 104 97* 99 CO2 mmol/L 19* 21* 22 25 EGFR mL/min >90 >90 >90 >90 BUN mg/dL 11 6 10 10 CREATININE mg/dL 0.4* 0.5 0.5 0.5 GLUCOSE mg/dL 90 95 89 99 CALCIUM mg/dL 7.6* 7.1* 7.8* 8.1* Magnesium mg/dL -- -- -- 2.2 ANION GAP mmol/L 9 9 11 11 Complete Blood Count: Lab results within last 7 days (see chart for full results) Units 06/04/24 0543 06/03/24 0557 06/02/24 1431 06/01/24 1136 WBC K/uL 3.75* 4.46 4.32 3.53* HGB g/dL 9.1* 8.5* 8.7* 10.2* HCT % 29.3* 26.6* 27.3* 31.9* PLT K/uL 329 321 362 438* MCV fL 84.7 84.7 83.0 83.3 Cardiac Studies: Lab results within last 7 days (see chart for full results) Units 06/04/24 1133 06/04/24 0855 06/04/24 0543 Troponin T, High Sensitivity ng/L 137* 147* 125* BNP, NT-Pro pg/mL -- -- 1,482* Coagulation Studies: Lab results within last 7 days (see chart for full results) Units 06/04/24 0543 06/03/24 0557 Prothrombin Time seconds 13.1 13.6 INR 1.0 1.0 aPTT seconds 38 40* D-Dimer ug/mL FEU 3.77* 2.70* Liver Function Panel: Lab results within last 7 days (see chart for full results) Units 06/04/24 0543 06/03/24 0557 06/02/24 1431 06/01/24 1136 Albumin g/dL 2.3* 2.1* 2.6* 2.7* Protein g/dL 5.5* 5.0* 6.2 5.9* Bilirubin, Total mg/dL 0.2 0.3 0.3 0.3 Bilirubin, Direct mg/dL -- -- <0.2 -- AST U/L 134* 137* 156* 171* ALT U/L 41* 42* 47* 54* Alkaline Phosphatase U/L 95 93 112 118 Triglycerides mg/dL 411* 352* -- 456* Infectious Studies: Lab results within last 7 days (see chart for full results) Units 06/04/24 1205 06/04/24 1032 06/04/24 0543 06/03/24 0557 06/01/24 1136 Lactate mmol/L 0.9 1.1 -- -- -- Ferritin ng/mL -- -- 9,351* 9,201* 9,974* CRP (Inflammatory Marker) mg/L -- -- 56* 67* 65* ESR mm/hour -- -- 41* 29* 47* Cultures: reviewed. Lab results within last 7 days (see chart for full results) Units 06/04/24 1104 Coronavirus SARS-CoV-2 by PCR Negative Recent Cultures (2 Weeks) 06/02/2024 06/02/2024 11:07 PM 10:17 PM BLOOD CULTURE GROWTH -- No growth to date No growth to date QUANT URINE CULTURE GROWTH No significant growth -- Radiographic Studies: reviewed. CT PULMONARY EMBOLUS W CONTRAST Result Date: 06/04/2024 IMPRESSION 1. No pulmonary embolism. 2. Acute interstitial edematous pancreatitis in the imaged upper abdomen, new in the short interval from 06/02/2024. 3. Mild multifocal infectious/inflammatory nodular opacities in the lungs. 4. Trace pleural effusions. 5. Axillary/subpectoral lymphadenopathy, of ten related to connective tissue disease, unchanged on the left and improved on the right since 01/28/2024. CT ABD/PELVIS W IV CONTRAST - WO ORAL CONTRAST Result Date: 06/02/2024 IMPRESSION: 1. Borderline enlarged retroperitoneal and iliac chain lymph nodes. Upper limits of normal-sized spleen. 2. Otherwise, incidental findings as above. COMMENTS: Consistent with the AmericanCollege of Radiology's Incidental Findings Committee white paper (J Am Nayeli Radiol 2018): Any incidental renal lesion less than 1 cm or classified as too small to characterize, or any incidental cystic renal lesion characterized as simple-appearing, is likely benign. No follow-up imaging is recommended for these lesions per consensus recommendations based on imaging criteria. THIS DOCUMENT HAS BEEN ELECTRONICALLY SIGNED BY GLENN ULLOA MD Current Facility-Administered Medications: Acetaminophen (Tylenol) tab 650 mg, 650 mg, Oral, Q6H, Flex Nunez MD, 650 mg at 06/04/24 1150 buffered lidocaine 1 % inj 30 mL, 30 mL, Intradermal, Once, Aleksandra Knutson MD Isolyte-S pH 7.4 infusion, , Intravenous, Continuous, Flex Nunez MD, Last Rate: 100 mL/hr at 06/04/24 1114, New Bag at 06/04/24 1114 Lidocaine (Aspercreme) 4 % patch 1 Patch, 1 Patch, Transdermal, Once, Gaston Youssef MD, 1 Patch at 06/04/24 0741 Morphine Sulfate (PF) inj 3 mg, 3 mg, IV Push, Q4H PRN, Flex Nunez MD morphine sulfate inj 1 mg, 1 mg, IV Push, Q4H PRN, Flex Nunez MD, 1 mg at 06/04/24 1205 Polyethylene Glycol 3350 (Miralax) oral powder 17 g, 1 Packet, Oral, PRN, Flex Nunez MD senna-docusate (Senokot-S) 1 Tablet, 1 Tablet, Oral, Daily PRN, Flex Nunez MD Anakinra (Kineret) inj 200 mg, 200 mg, Subcutaneous, Daily(AM), Flex Nunez MD, 200 mg at 06/04/24 0742 FLUoxetine (PROzac) cap 20 mg, 20 mg, Oral, Daily 1500, Linwood Carrillo DO, 20 mg at 06/03/24 1523 levothyroxine (Levoxyl) tab 88 mcg, 88 mcg, Oral, Daily 0630, Flex Nunez MD, 88 mcg at 531 methylPREDNISolone sodium succ (SOLU-Medrol) inj 55 mg, 55 mg, Intravenous, Daily(AM), Flex Nunez MD, 55 mg at 06/04/24 0756 omeprazole (PriLOSEC) cap 40 mg, 40 mg, Oral, Daily(AM), Flex Nunez MD, 40 mg at 06/04/24 0741 Enoxaparin (Lovenox) inj 40 mg, 40 mg, Subcutaneous, Daily(AM), Amanuel Blanton MD, 40 mgat 06/04/24 0741 sodium chloride 0.9 % flush/inj 3 mL, 3 mL, IV Push, PRN, Noah Marie DO SUMAtriptan (Imitrex) tab 12.5 mg, 12.5 mg, Oral, Q2H PRN, Noah Marie DO topiramate (topAMAX) tab 75 mg, 75 mg, Oral, QHS, Noah Marie DO, 75 mg at 06/03/242015 Assessment & Plan Assessment and Plan: Principal Problem: Undifferentiated inflammatory polyarthritis (HCC) (POA: Yes) Active Problems: Anemia of chronic disease (POA: Yes) MAS (macrophage activation syndrome) (HCC) (POA: Unknown) Still's disease (HCC) (POA: Unknown) Resolved Problems: * No resolved hospital problems. * POA = Present On Admission Bhavin Wilson is a 29 year old female with Hx significant for seronegative arthropathy and migraines, who is admitted for progressive arthralgias, fevers, and organomegaly concerning for Still'sDisease vs HLH. Epigastric/Substernal CP Troponinemia- ACS vs myocarditis vs pericarditis Pt with new onset substernal CP that woke the pt up from sleep this morning. Pt notes that her painhas now migrated to her epigastric region and radiates to the rest of her abd. Pt notes that her pain is worsening and is currently a 9/10. EKG done showed new t-wave inversion in lead V2. Repeat EKGshowed sinus tachycardia. Troponin done this AM was 125. Repeat Troponin 147 and then downtrending to 137. HANY score of 1. CT PE this morning showing no PE. Showed mild multifocal infectious/inflammatory nodular opacities in lungs with trace pleural effusions. Acute interstitial pancreatitis. Axillary/subpectoral lymphadenopathy, unchanged on L and improved on R. TTE showed normal EF with no wall motion abnormalities and no valvular disease. At this point, cause of troponinemia is unknown, could be ACS vs myocarditis vs pericarditis. -Will continue to trend troponin -Cardiology consulted, appreciate recs -Pain control with Tylenol 650mg q6h, morphine 1mg for severe pain and 3mg morphine for breakthrough pain. Pancreatitis Pt with evidence of epigastric pain beginning this morning with evidence of pancreatitis on CT imaging. Pt denies any n/v. Etiology possibly related to systemic inflammation in setting of Still's disease. Other possible causes include hypertriglyceridemia and recent steroid use. Pt is still tolerating diet. -Continue patient on regular diet as long as she tolerates. -Moderate fluid resuscitation with isolyte at 100 ml/hr. -Pain control with Tylenol 650mg q6h, morphine 1mg for severe pain and morphine 3mg for breakthrough pain. Suspected Rheumatic Condition, Still's Disease vs HLH -Continue Methylprednisolone 1mg/kg -Continue Anakinra 200mg daily -Rheumatology following, appreciate recs -Follow-up on pending lab tests including: Parvovirus B19 antibodies, DESTINY EIA screen with reflex ABquant, DESTINY HARINI, IL-2 receptor alpha, Intrinsic factor blocking antibody, IL-18, CD163, CXCL9, andneopterin plasma Non Anion Gap Metabolic Acidosis Pt reports multiple episodes of diarrhea yesterday that have since resolved. Lactate 1.1. Delta-Delta gap -0.6 indicating pure non-anion gap metabolic acidosis. Expect that acidosis is related to patients diarrhea yesterday. -Continue to monitor New onset hypothyroidism Pt with TSH of 10.6 and T4 of 0.8. -Pt initially on 25mcg of levothyroxine, will increase dose to 88mcg today. -F/u thyroid labs in 4-6 months Acute Normocytic Anemia Hb today is 9.1. Stable. Likely anemia of chronic disease in setting of chronic inflammatory rheumatologic condition -Continue to monitor CBC Transaminitis AST 134, ALT 41. Likely elevated in setting of suspected rheumatic condition -Continue to monitor Asymptomatic Bacteriuria Proteinuria UA showing Bacteria, WBCs, and RBCs. Nitrite and esterase negative. Pt denies sxs of dysuria or hematuria. Urine also showing protein with UPCR 624. Proteinuria likely transient in relation to acute illness. -Continue to monitor for sxs Chronic Problems: Migraines: Continue [employer] sumatriptan and Topamax KENYA: Continue [employer] MA[employer]GER Prozac Misc: Diet: Regular Diet Bowel Regimen: Miralax PRN and Senna S PRN Last Bowel Movement: 06/03/24 (06/03/241939) Stool Description: Medium;Brown;Green;Mushy (915) Sleep: No sleep protocol ordered Burnham: Not indicated at this time PT/OT: Not indicated at this time GI prophylaxis: Omeprazole VTE Prophylaxis: Lovenox 40mg q24h Code Status: Full Code LINES / DRAINS / TUBES: LINES ALL Duration Peripheral Line Lower;Right Arm 20 Gauge 2 days List of services consulted/following: ADULT PHYSICAL THERAPY CONSULT IP ADULT OCCUPATIONAL THERAPY CONSULT IP RHEUMATOLOGY CONSULT IP HEMATOLOGY CONSULT IP CARDIOLOGY CONSULT IP Patient was discussed with attending physician, DO Juliocesar Zhao, Medical Student Resident Physician This chart was completed in part utilizing [employer] Speech Voice Recognition Software. Grammatical errors, random word insertions, pronoun errors, and incomplete sentences are an occasional consequence of this system due to software limitations, ambient noise, and hardware issues. Any formal questions or concerns about the content, text, or information contained within the body of this dictation should be directly addressed to the provider for clarification. Cosigned by Linwood Carrillo DO at 06/04/2024 5:22 PM EST Associated attestation - Linwood Carrillo DO - 06/04/2024 5:22 PM EST I attest that I have reviewed the student note and that the components of the history, the physicalexam, and the assessment and plan documented were performed in my presence with the student where Iverified the documentation and performed (or re-performed) the exam and medical decision making. Chest pain and epigastric pain overnight ECG w ?TWI V2 lead otherwise NSR / ST Continues with 8/10 chest pain / epigastric tenderness and pain Worsening rash across chest today Denies pruritus on back Discussed morphine for chest and or pancreatitis pain Had x4BM yesterday which has self resolved today thus far BP 103/69 | Pulse 72 | Temp 36.2 C (97.1 F) (Tympanic) | Resp 18 | Ht 1.626 m (5' 4") | Wt 54.7kg (120 lb 11.2 oz) | SpO2 100% | BMI 20.72 kg/m | BSA 1.57 m Well appearing wf NAD AAO3 Reg tachycardia no mrg s1/2 Lacy confluent erythematous rash across BUE and across chest No appreciable synovitis, dactylitis Acutely tender subxiphoid area to palpation +involuntary guarding Knees and hips flexed W 3.7k Hb 9.1 Ferr 9351 Na 133 CO2 19 Cr 0.4 RVP negative Aundrea 125 -> 147 TG411 EKG ovn: TWI V2 iso incomplete RBBB EKG repeated: NSR Echo The examination is adequate to evaluate the referral indication. The qualitative LV ejection fraction is 55-59% (normal). No LV segmental wall motion abnormalities. The right ventricular cavity size is normal (basal dimension < 4.2 cm RV apical 4 chamber view). The right ventricular systolic function is qualitatively normal. No significant valvular disease is present CTPE IMPRESSION 1. No pulmonary embolism. 2. Acute interstitial edematous pancreatitis in the imaged upper abdomen, new in the short intervalfrom 06/02/2024. 3. Mild multifocal infectious/inflammatory nodular opacities in the lungs. 4. Trace pleural effusions. 5. Axillary/subpectoral lymphadenopathy, often related to connective tissue disease, unchanged on the left and improved on the right since 01/28/2024. Assessment Fevers Migratory polyarthralgias. Rule out AOSD Rule out HLH Inflammatory lung nodules Troponinemia NOS Rule out myocarditis Acute interstitial pancreatitis - Rule out secondary to AOSD? Rule out biliary lesion Rule out HTG induced Rule out IgG4 RD Bicytopenia NAGMA HTG Cont Isolyte for pancreatitis; advise high protein low fat diet for pancreatitis; query RUQ US to rule out biliary tract disease as cause of pancreatitis; role for fibrates for HTG panc? morphine prnfor pain; cardiology consult for elevated Aundrea; monitor for worsening of resp status at risk for ?DAH as complication of AOSD; pending BMBx per hematology; cont Steroids and Anakinra for suspected AOSD; derm consult for progressive rash I spent a total of 55 minutes coordinating, documenting, and providing care for this patient excluding time spent in the performance of separately billed services or time spent by another provider/QHP. * Tiffanie Fisher MD - 06/04/2024 10:26 AM EST PROGRESS NOTE - [place] [facility] [place] [address] Name: Bhavin Wilson [place] [facility] [place] Date: 06/04/2024 Time: 10:27 AM PATIENT ASSESSMENT AND FINDINGS: Patient seen and examined at bedside. Patient reports early this morning she started having constant, stabbing, substernal/epigastric chest/abdomen pain that worsens with deep breaths. She denies shortness of breath, but feels like she cannot take a full, deep breath due to the pain. Otherwise reports that her joint pain/stiffness is improving. Also notes new reddness of her arms/legs and face, that is new since this morning. She is worried that it could be a drug rash. MUSCULOSKELETAL ROS: . Abnormal: joint pain, improving OTHER ROS: . Cardiovascular: chest pain . Skin: rash All other ROS negative. PHYSICAL EXAM: Most Recent Vital Signs: BP: 103 mmHg/79 mmHg (06/04/24930) Pulse: 117 (06/04/24930) Resp: 18 (06/04/24930) Temp: 36 C (06/04/24930) Temp Summary: Temp Min: 35.6 C (96 F) Max: 38.7 C (101.7 F) SpO2: 100 % (06/04/24930) O2 flow rate: Supplemental O2 Delivery: Room Air, None (06/04/24930) Vital Signs Last 24 Hours: Temperature: Most Recent Temperature Av.9 C Min: 35.56 C Max: 38.72 C Pulse: Pulse Av.6 Min: 61 Max: 117 Respirations: Resp Av Min: 14 Max: 20 SpO2: SpO2 Av.8 % Min: 93 % Max: 100 % Systolic BP: Most Recent Systolic BP Av.5 mmHg Min: 97 mmHg Max: 114 mmHg General: alert, healthy, and no distress HENT: normocephalic, external ears normal, moist mucosa Eye Exam: EOMI, conjunctiva are pink and non-injected, sclera clear Heart: regular rate & rhythm, no murmur, and no gallops Lungs: clear to auscultation , no rales, wheezes or rhonchi Extremities: no clubbing, no cyanosis, non-pitting edema of bilateral ankles Skin: skin color, texture, turgor are normal, bilateral arms, chest, legs and face with patchy erythematous rash Musculoskeletal Exam: . Normal LABS: Labs reviewed as indicated below: CBC Lab results within last 7 days (see chart for full results) Units 06/04/24 0543 06/03/24 0557 06/02/24 1431 WBC K/uL 3.75* 4.46 4.32 HGB g/dL 9.1* 8.5* 8.7* HCT % 29.3* 26.6* 27.3* PLT K/uL 329 321 362 BMP Lab results within last 7 days (see chart for full results) Units 06/04/24 0543 06/03/24 0557 06/02/24 1431 SODIUM mmol/L 133* 134* 130* POTASSIUM mmol/L 3.7 3.4* 4.4 CHLORIDE mmol/L 105 104 97* CO2 mmol/L 19* 21* 22 BUN mg/dL 11 6 10 CREATININE mg/dL 0.4* 0.5 0.5 GLUCOSE mg/dL 90 95 89 LD U/L 541* 557* 632* Lab results within last 7 days (see chart for full results) Units 06/04/24 0855 06/04/24 0543 Troponin T, High Sensitivity ng/L 147* 125* BNP, NT-Pro pg/mL -- 1,482* Lab results within last 7 days (see chart for full results) Units 06/04/24 0543 06/03/24 0557 Prothrombin Time seconds 13.1 13.6 aPTT seconds 38 40* INR 1.0 1.0 D-Dimer ug/mL FEU 3.77* 2.70* Fibrinogen mg/dL -- 389 Lab results within last 7 days (see chart for full results) Units 06/04/24 0543 06/03/24 0557 06/02/24 1431 06/01/24 1136 Complement C3 mg/dL -- 70* -- -- Complement C4 mg/dL -- 17 -- -- CRP (Inflammatory Marker) mg/L 56* 67* -- 65* ESR mm/hour 41* 29* -- 47* Ferritin ng/mL 9,351* 9,201* -- 9,974* LD U/L 541* 557* 632* 633* Lab results within last 7 days (see chart for full results) Units 06/04/24 0543 06/03/24 0557 06/02/24 1431 AST U/L 134* 137* 156* ALT U/L 41* 42* 47* Albumin g/dL 2.3* 2.1* 2.6* Alkaline Phosphatase U/L 95 93 112 Bilirubin, Total mg/dL 0.2 0.3 0.3 Bilirubin, Direct mg/dL -- -- <0.2 Protein g/dL 5.5* 5.0* 6.2 IMAGING: CT PULMONARY EMBOLUS W CONTRAST Result Date: 06/04/2024 IMPRESSION 1. No pulmonary embolism. 2. Acute interstitial edematous pancreatitis in the imaged upper abdomen, new in the short interval from 06/02/2024. 3. Mild multifocal infectious/inflammatory nodular opacities in the lungs. 4. Trace pleural effusions. 5. Axillary/subpectoral lymphadenopathy, of ten related to connective tissue disease, unchanged on the left and improved on the right since 01/28/2024. ECHO 06/04/2024 The examination is adequate to evaluate the referral indication. The qualitative LV ejection fraction is 55-59% (normal). No LV segmental wall motion abnormalities. The right ventricular cavity size is normal (basal dimension < 4.2 cm RV apical 4 chamber view). The right ventricular systolic function is qualitatively normal. No significant valvular disease is present IMPRESSION/RECOMMENDATION: 29 year old female with a history of migraines and seronegative inflammatory arthritis who presents with joint pain, fevers, and fatigue with elevated ferritin, LDH and mild elevation in transaminase levels. On presentation she was subsequently found to have elevated triglycerides, haptoglobin, ESR, CRP and protein/cr ratio, as well as decreased C3. Her course has been complicated by acute pancreatitis and elevated trops. From the Rheumatology standpoint, we will ruleout possible etiologies, differential diagnosis would include Still's disease with HLH/MAS, SLE also in the differential with rash/arthralgia/synovitis and abnormal labs. Will continue to treat with solumedrol and Anakinra. Will continue to closely monitor labs as below. . RHEUMATOLOGY CONCURRENT CARE SUGGESTION(S): Continue IV solumedrol 1mg/kg daily Continue subcutaneous Anakinra 200 mg daily Recommend ordering repeat UA and protein/Cr ratio, repeat compliments Follow up on DESTINY ; EIA screen with reflexive antibodies, Soluble Il- 2 receptor, (sCD25 or Angelia-2R), CXCL9 Immunoglobulin levels; IgG, A and M Continue to trend daily CBC with diff CMP ESR and CRP Coags D-dimer Liver enzymes Ferritin LDH Bone marrow biopsy with Hematology today Recommend Dermatology consult for possible drug rash Cosigned by Katt Aguayo MD at 06/04/2024 4:03 PM EST Associated attestation - Katt Aguayo MD - 06/04/2024 4:03 PM EST I saw and evaluated the patient today. I have reviewed the resident/fellow physician note and agree. Overnight, Ms. Wilson developed chest pain/abdominal pain. Work up showed an elevated troponin, EKG changes and BNP. Imaging was consistent with new pancreatitis. While elevated TG can be seen in AOSD I would not expect the pancreatitis to be a manifestation of treatment or Still's disease. I agree with evaluation for other causes of pancreatitis. She has not had a daily fever and symptoms of joint pain are improving. She pointed out a faintly pink rash over her chin and her left arm. While skin manifestations are common with AOSD I would haveexpected the same trend as her joint pain and fever towards improvement. Drug rash I suppose is a possibility. I recommend evaluation by Dermatology before deciding if a change in treatment is necessary. I agree with continuing monitoring labs as well as repeating UA and urine protein and creatinine. Pending bone marrow biopsy. I spent a total of 65 minutes coordinating, documenting, and providing care for this patient excluding time spent in the performance of separately billed services or time spent by another provider/QHP. * Flex Nunez MD - 06/03/2024 5:46 AM EST PROGRESS NOTE - Internal Medicine [place] [facility] [place] [address] Name: Bhavin Wilson [place] [facility] [place] Date: 06/03/2024 Time: 5:48 AM Date of admission: 06/02/2024 Hospital length of stay: 1 days Subjective Overnight Events: Patient was transferred from [facility] overnight Subjective: Patient seen and examined at bedside. Patient reports she has continued fevers over the past week and that her recorded temperatures ranged from 99 - 100.4 degrees F. She states she has continued right arm rash from sulfasalazine which she hasn't taken in months and continued bilateral hand pain. No chest pain, shortness of breath, or other pains at this time. All systems were reviewed, all pertinent findings were documented above, otherwise negative. Objective CONSTITUTIONAL DATA / OBJECTIVE: Vital Signs (Most Recent): Blood Pressure: 100/45 mmHg Last 12H: Most Recent Systolic BP Av.3 mmHg Min: 88 mmHg Max: 114 mmHg Pulse: 80 Last 12H: Pulse Av Min: 80 Max: 113 Temperature: 37.3 C (99.1 F) Last 12H: Most Recent Temperature Av C Min: 37 C Max: 39.28 C Respiratory Rate: 16 O2 Saturation: 99 % Vital Signs (Last 24 Hours): Pulse Av Min: 80 Max: 113 No data recorded Most Recent Systolic BP Av.3 mmHg Min: 88 mmHg Max: 114 mmHg Most Recent Diastolic BP Av.1 mmHg Min: 41 mmHg Max: 73 mmHg Resp Av Min: 16 Max: 16 Most Recent Temperature Av C Min: 37 C Max: 39.28 C SpO2 Av % Min: 98 % Max: 100 % Intake & Output Summary (Last 24 hours): Intake/Output Summary (Last 24 hours) at 06/03/2024547 Last data filed at 06/03/2024 0416 Gross per 24 hour Intake 1120.22 ml Output 500 ml Net 620.22 ml Net IO Since Admission: 620.22 mL [06/03/24547] Height & Weight: Height: 162.6 cm (5' 4") (06/02/241939) Weight: 55.9 kg (123 lb 4.8 oz) (06/03/24513) Weight change: Body mass index is 21.16 kg/m. Telemetry: Sporadic 10-15 minute episodes of tachycardia up to 120s throughout the night but otherwise NSR Physical Examination: General: No acute distress HEENT: normocephalic, atraumatic, no lymphadenopathy appreciable Heart: regular rate and rhythm; S1 and S2 present; no murmurs, rubs or gallops. Radial and PT pulses 2+ bilaterally Pulmonary: Lungs clear to auscultation bilaterally; no wheezes, rhonchi or crackles. Abdomen: Soft, non-tender, non-distended. Normal bowel sounds and no rebound or guarding. MSK: Gross motor function intact Extremities: No edema to BLE Skin: [place], warm, multiple 1 cm pink macules overlying right arm, no tenderness Neuro: AAOx3. No gross motor or sensory deficits. Psych: Appropriate mood and affect Peripheral Line Lower;Right Arm 20 Gauge (Active) Number of days: 1 Laboratory Values: reviewed. -- Brief labs below include the 7 most recent results over the past week. No results in the last 7 days - inpatent use only Lab results within last 7 days (see chart for full results) Units 06/02/24 1431 06/01/24 1136 SODIUM mmol/L 130* 135 POTASSIUM mmol/L 4.4 4.5 CHLORIDE mmol/L 97* 99 CO2 mmol/L 22 25 EGFR mL/min >90 >90 BUN mg/dL 10 10 CREATININE mg/dL 0.5 0.5 GLUCOSE mg/dL 89 99 CALCIUM mg/dL 7.8* 8.1* Magnesium mg/dL -- 2.2 ANION GAP mmol/L 11 11 Lab results within last 7 days (see chart for full results) Units 06/02/24 1431 06/01/24 1136 WBC K/uL 4.32 3.53* HGB g/dL 8.7* 10.2* HCT % 27.3* 31.9* PLT K/uL 362 438* MCV fL 83.0 83.3 No results in the last 7 days - inpatent use only No results in the last 7 days - inpatent use only Lab results within last 7 days (see chart for full results) Units 06/02/24 1431 06/01/24 1136 Albumin g/dL 2.6* 2.7* Protein g/dL 6.2 5.9* Bilirubin, Total mg/dL 0.3 0.3 Bilirubin, Direct mg/dL <0.2 -- AST U/L 156* 171* ALT U/L 47* 54* Alkaline Phosphatase U/L 112 118 Triglycerides mg/dL -- 456* Lab results within last 7 days (see chart for full results) Units 06/01/24 1136 Ferritin ng/mL 9,974* CRP (Inflammatory Marker) mg/L 65* ESR mm/hour 47* Cultures: reviewed. Recent Cultures (2 Weeks) 06/02/2024 10:17 PM BLOOD CULTURE GROWTH No growth to date No growth to date Radiographic Studies: reviewed. CT ABD/PELVIS W IV CONTRAST - WO ORAL CONTRAST Result Date: 06/02/2024 IMPRESSION: 1. Borderline enlarged retroperitoneal and iliac chain lymph nodes. Upper limits of normal-sized spleen. 2. Otherwise, incidental findings as above. COMMENTS: Consistent with the AmericanCollege of Radiology's Incidental Findings Committee white paper (J Am Nayeli Radiol 2018): Any incidental renal lesion less than 1 cm or classified as too small to characterize, or any incidental cystic renal lesion characterized as simple-appearing, is likely benign. No follow-up imaging is recommended for these lesions per consensus recommendations based on imaging criteria. THIS DOCUMENT HAS BEEN ELECTRONICALLY SIGNED BY GLENN ULLOA MD Current Facility-Administered Medications: Acetaminophen (Tylenol) tab 650 mg, 650 mg, Oral, Q6H PRN, Noah Marie DO, 650 mg at 06/03/24 0152 Piperacillin-Tazobactam (Zosyn) 4.5 g in 100 mL NSS ivpb (FOUR hour infusion), 4.5 g, IV Piggyback,Q8H Now, Noah Marie DO [START ON 06/04/2024] Enoxaparin (Lovenox) inj 40 mg, 40 mg, Subcutaneous, Daily(AM), Ruby Blanton MD FLUoxetine (PROzac) cap 20 mg, 20 mg, Oral, Daily(AM), Noah Marie DO Isolyte-S pH 7.4 infusion, , Intravenous, Continuous, Noah Marie DO, Last Rate: 100 mL/hr at 06/03/24 0416, Rate Verify at 06/03/24 0416 levothyroxine (Levoxyl) tab 25 mcg, 25 mcg, Oral, Daily 0630, Noah Marie DO, 25 mcg at 06/03/24 0535 Polyethylene Glycol 3350 (Miralax) oral powder 17 g, 1 Packet, Oral, Daily(AM), Noah Marie DO predniSONE (Deltasone) tab 5 mg, 5 mg, Oral, Daily(AM), Noah Marie DO senna-docusate (Senokot-S) 1 Tablet, 1 Tablet, Oral, Daily(AM), Noah Marie DO sodium chloride 0.9 % flush/inj 3 mL, 3 mL, IV Push, PRN, Noah Marie DO SUMAtriptan (Imitrex) tab 12.5 mg, 12.5 mg, Oral, Q2H PRN, Noah Marie DO topiramate (topAMAX) tab 75 mg, 75 mg, Oral, QHS, Noah Marie, , 75 mg at 06/02/24 0261 Assessment & Plan Assessment and Plan: Principal Problem: Undifferentiated inflammatory polyarthritis (HCC) (POA: Yes) Active Problems: Anemia of chronic disease (POA: Yes) Resolved Problems: * No resolved hospital problems. * POA = Present On Admission Bhavin Wilson is a 29 year old female with PMHx of seronegative arthropathy and migraines withprogressive arthralgias, fevers, organomegaly concerning for rheumatologic disease including Still's disease, HLH, MIS-A, SLE, vasculitis, tick-borne illness, disseminated gonorrheal infection, parvovirus, syphilis. Per Dorcas criteria, patient arthralgias persisting for >2 weeks but no other major criteria.She has borderline lymphadenopathy/splenomegaly on CT, increased serum aminotransferases, LDH, prior RF 2022 <10, prior DESTINY negative. Patient meets 1 major criteria and 2 minor criteria. Of note, HLA-B27 negative, dsDNA 3.0. Patient has HLH score of 166, indicating 40-54% likelihood ofHLH diagnosis. Suspected Rheumatic Condition, Still's Disease vs HLH - Start Methylprednisolone 1 mg/kg/dose - Start Anakinra 200 mg daily - Discontinue Zosyn - Syphilis antibody and parvovirus IgG, IgM - Rheumatology consulted, workup performed as noted below: DESTINY; EIA screen with reflexive AB pending C3 low at 70 UA infectious, UPC 624 OR/INR , aPTT 40, D dimer 2.7 Fibrinogen level 389 IL-2 Receptor, Anaplasma, EBV Ab pending IgG, IgA, IgM levels normal ESR/CRP 47, 65 on arrival Ferritin 9974, 1 day prior to arrival LDH 632 -> 557 Triglycerides 456 -> 352 today BCX 06/02 no growth to date New onset Hypothyroidism TSH 10.6, T4 0.8, started on Levoxyl 25 overnight - Increase levothyroxine to 88 mcg tomorrow - Re-check TSH, free T4 in 4-6 weeks Acute normocytic anemia Tsat 18%, likely anemia of chronic disease based on most recent iron panel, s/p IV Venofer at OSH - Will treat underlying illness Asymptomatic bacteriuria Proteinuria UA infectious, patient denies dysuria or urinary frequency. No suprapubic tenderness on exam. UA shows protein, UPCR elevated at 624. Ddx includes transient proteinuria in setting of acute illness, less likely nephrotic syndrome, DM2, glomerulonephritis, or CHF. - Monitor for symptoms or cont Transaminitis AST 137, ALT 42. Likely in setting of acute illness - Continue to monitor Incidental findings: Right renal cyst Chronic Problems: Migraines: Sumatriptan (patient has BIODIESEL TECHNOLOGY MANAGER Naratriptan), continue BIODIESEL TECHNOLOGY MANAGER Topamax (increase dose to 100 mgon 06/06) Vitamins: Continue BI[employer]IESEL TECHNOLOGY MANAGER B12 and oral ferrous sulfate KENYA: Continue BIODIESEL TECHNOLOGY MANAGER Prozac Misc: Finished prednisone taper Misc: Diet: Regular Bowel Regimen: None at this time Sleep: No sleep protocol ordered Burnham: Not indicated at this time PT/OT: Not indicated at this time GI prophylaxis: Omeprazole 40 VTE Prophylaxis: Lovenox Code Status: Full LINES / DRAINS / TUBES: LINES ALL Duration Peripheral Line Lower;Right Arm 20 Gauge 1 day List of services consulted/following: ADULT PHYSICAL THERAPY CONSULT IP ADULT OCCUPATIONAL THERAPY CONSULT IP RHEUMATOLOGY CONSULT IP Patient was discussed with attending physician, DO Flex Zhao MD Med-Peds PGY-1 Cosigned by Linwood Carrillo DO at 06/03/2024 8:26 PM EST Associated attestation - Linwood Carrillo DO - 06/03/2024 8:26 PM EST I saw and evaluated the patient today. I have reviewed the resident/fellow physician note and agree. Persistent fevers Arthralgias mainly in hands but did have some swelling of toes and ankles Feels dizzy and lightheaded Wants to eat if possible amairani Discussed methylpred risks of activation type sxs, sugars, heart rate. BP 97/59 | Pulse 87 | Temp 37.3 C (99.2 F) (Tympanic) | Resp 20 | Ht 1.626 m (5' 4") | Wt 55.9 kg (123 lb 4.8 oz) | SpO2 97% | BMI 21.16 kg/m | BSA 1.59 m Well appearing wf Reg tachycardia s1/2 Abd soft nont nond Lacy erythematous coalescent maculopapular RUE rash No appreciable synovitis BLE Labs OSH DESTINY 01/21 neg HLA b27 10/01 neg Chlamydia Ur 10/19/23 negative Hb 8.5 Plt 321k Ferr 9201 LD 557 Haptoglobin 496 TG 352 Na 134 K 3.4 BCX ngtd ESR 29 CRP 67 EBV IgG +ve, IgM neg IgG 1410 IgA 72 IgM 131 Fibrinogen C3 [address] abd pelvis IMPRESSION: 1. Borderline enlarged retroperitoneal and iliac chain lymph nodes. Upper limits of normal-sized spleen. 2. Otherwise, incidental findings as above. Assessment FUO Hyperferritinemia Rule out AOSD Rule out HLH Migratory polyarthralgias, synovitis. Hyponatremia, mild. Retroperitoneal Lymphadenopathy Plan Hematology, rheumatology consults. Start methylpred 1mg/kg with GI ppy. Start Anakinra per Rheumatology. Heme cs for BMBx. Check Parvo serologies, Syphilis Ab. I spent a total of 75 minutes coordinating, documenting, and providing care for this patient excluding time spent in the performance of separately billed services or time spent by another provider/QHP. documented in this encounter H&P Notes * Noah Marie, - 06/02/2024 7:51 PM EST Images from the original note were not included. [facility] G308/B PRESENTING PROBLEM: Joint Pain, Intermittent Fever HPI: Bhavin Wilson is a 29 y/o F with a PMHx as below who presents as a transfer from [facility] with joint pain and intermittent fever. Bhavin is a 29-year-old female who reports joint pain and intermittent fevers for the past year. Patient states that her initial symptom was joint pain, swelling, and stiffness in the small joints ofher hand. This began last fall, and at first was a mild annoyance, and felt like a dull ache". The pain in her hands progressively got worse with each flare attack. She states that these symptoms were intermittent, lasted a couple of weeks, spontaneously resolved, and then returned. She states that she would go a month or so, do well, and then she will have another flare for 4-6 weeks with dull, achy pain rated 7/10. During these episodes, she would report trouble grasping and making a fist.She then states that these symptoms progressed to her lower extremities, with involvement of her feet and ankles, and legs with concurrent swelling. This pain has made it harder for her to ambulate around the house, and she has had trouble sitting down. Patient states that she has trailed several medications (listed below) without relief and currently follows with rheumatology for seronegative inflammatory arthritis. Of note, patient was recently admitted to [facility] from May 20- May 23 with concerns for sepsis. Patient was discharged on prednisone taper, given IV Venofer in the hospital and started on p.o. vitamin B12. 05/29/24: Primary care appointment for recent hospitalization: Patient endorsed continued diffuse joint pain, generalized weakness, and waxing and waning fevers. Patient was febrile in the office to 101.1F and tachycardic in the 130s with continued L sided headache. Lab work after that visit showed LD of 633, corrected calcium of 9.1, transaminitis with AST 171, ALT 54, negative HIV. Iron 32, IBC low at 179, Ferritin 9974, Vitamin b12 borderline low at 331. CBC showed leukopenia of 3.53 (previously 8.69), HgB 10.2 (previously 11.8), Plt 438. CRP elevated at 65, ESR elevated 47. Patient instructed to present to the ED. [facility] ED Course: Patient was afebrile, tachycardic with pulse of 134. Blood pressure soft at 103/59 mmHg. Patient given 1 L fluid bolus. Patient given 5 mg of Compazine and 1g of magnesium for history of Migraines. Lab work-up showed mild hyponatremia 130, elevated LD at 632, HgB of 8.7 (10.2). LFTs showed hypoalbuminemia 2.6, transaminitis with AST 156 (171), ALT 47 (54). Otherwise unremarkable. CT A/P showed simple appearing right renal cyst, mild distention of small-bowel loops, enlarged retroperitoneal and iliac chain lymph nodes, and upper limit sized of normal-sized spleen. Patient was discussed with Rheumatology at [facility], and given patient's history of inflammatory arthritis, Rheumatology suggested transferring to [facility] for potential bone marrow biopsy to evaluate for Still's disease. Patient was evaluated at bedside with patient's mother and partner at bedside. Patient states that she feels lightheaded, and that she feels like she is in a fog. Patient states that this has been constant since she presented to [facility] and that she feels fatigued. Patient endorses diffuse joint pain, rated a sharp 10/10. She localizes this pain to the R knee/posterior Leg and the small joints of her hands bilaterally. Patient denies any neck stiffness, new rashes, shortness of breath, chest pain, shortness of breath, abdominal pain, nausea, vomiting, diarrhea, urinary symptoms, hematochezia. Patient states that she feels some numbness in her L infraorbital region. Denies any tingling in her extremities. Patient states that the last time she had a fever was "a day or two ago". She states that at that time, she experienced diaphoresis and she "sweat the bed". Patient endorses right upper extremity rash that she states has been present since she recently trialed new medication and hasnot changed since admission to [facility]. She denies any itchiness or burning with this rash. Past Medical Hx: -L sided Migraines -Seronegative inflammatory arthritis -KENYA Rheum Pharm Hx: -Amjevita -Cimzia -Sulfasalazine (Caused Diffuse skin rash) Social Hx: Patient wishes to be FULL code. Patient understands the risks/benefits associated with this decision after bedside discussion. If patient was unable to make decisions for themselves, they would wish her partner Howard ([phone]) to make medical decisions for them. Patient lives at home with Howard. The home is one floor, and she states that she has had trouble ambulating for the past couple of months, needing to use a toilet riser and shower stool to complete her activities of daily living.Patient denies any alcohol use or IVDU use. Subjective Patient's past history, medications, and allergies were reviewed. Objective Physical Exam Most Recent Vital Signs: BP: 109 mmHg/61 mmHg (06/02/242219) Pulse: 110 (06/02/241939) Resp: 16 (06/02/242219) Temp: 37 C (06/02/242219) Temp Summary: Temp Min: 37 C (98.6 F) Max: 37.2 C (98.9 F) SpO2: 100 % (06/02/242219) O2 flow rate: Supplemental O2 Delivery: Room Air, None (06/02/242219) Constitutional: Pleasant 29 y/o F laying in bed. In NAD. Well developed, well nourished. HEENT: NC/AT. Sclera white, extraocular muscles intact Cardiovascular: Tachycardic rate. Normal rhythm, S1 and S2 present, no murmurs on auscultation Respiratory: Clear to auscultation bilaterally, no wheezes, rhonchi, crackles Abdomen: Soft, non-tender, non-distended, normal bowel sounds Musculoskeletal: No joint deformity Extremities: No lower extremity edema bilaterally Neuro: AAO x3. CN 2-12 in tact. Moves all extremities equally. UE extensor strength 3+/5, otherwisestrength 5/5 in UE and LE bilaterally. No asymmetry noted in facial muscles. Skin: Erythematous rash in right upper extremity. No bruising noted. Peripheral Line Lower;Right Arm 20 Gauge (Active) Number of days: 0 STUDIES: Encounter Orders Labs and other studies reviewed with pertinent findings noted below: Laboratory Values: reviewed. -- Brief labs below include the 7 most recent results over the past week. Blood Gas: No results in the last 7 days - inpatent use only Chemistry Panel: Lab results within last 7 days (see chart for full results) Units 06/02/24 1431 06/01/24 1136 SODIUM mmol/L 130* 135 POTASSIUM mmol/L 4.4 4.5 CHLORIDE mmol/L 97* 99 CO2 mmol/L 22 25 EGFR mL/min >90 >90 BUN mg/dL 10 10 CREATININE mg/dL 0.5 0.5 GLUCOSE mg/dL 89 99 CALCIUM mg/dL 7.8* 8.1* Magnesium mg/dL -- 2.2 ANION GAP mmol/L 11 11 Complete Blood Count: Lab results within last 7 days (see chart for full results) Units 06/02/24 1431 06/01/24 1136 WBC K/uL 4.32 3.53* HGB g/dL 8.7* 10.2* HCT % 27.3* 31.9* PLT K/uL 362 438* MCV fL 83.0 83.3 Cardiac Studies: No results in the last 7 days - inpatent use only Coagulation Studies: No results in the last 7 days - inpatent use only Liver Function Panel: Lab results within last 7 days (see chart for full results) Units 06/02/24 1431 06/01/24 1136 Albumin g/dL 2.6* 2.7* Protein g/dL 6.2 5.9* Bilirubin, Total mg/dL 0.3 0.3 Bilirubin, Direct mg/dL <0.2 -- AST U/L 156* 171* ALT U/L 47* 54* Alkaline Phosphatase U/L 112 118 Triglycerides mg/dL -- 456* Infectious Studies: Lab results within last 7 days (see chart for full results) Units 06/01/24 1136 Ferritin ng/mL 9,974* CRP (Inflammatory Marker) mg/L 65* ESR mm/hour 47* Cultures: reviewed. No results in the last 7 days - inpatent use only Recent Cultures (2 Weeks) No lab values to display. Radiographic Studies: reviewed. CT ABD/PELVIS W IV CONTRAST - WO ORAL CONTRAST Result Date: 06/02/2024 IMPRESSION: 1. Borderline enlarged retroperitoneal and iliac chain lymph nodes. Upper limits of normal-sized spleen. 2. Otherwise, incidental findings as above. COMMENTS: Consistent with the AmericanCollege of Radiology's Incidental Findings Committee white paper (J Am Nayeli Radiol 2018): Any incidental renal lesion less than 1 cm or classified as too small to characterize, or any incidental cystic renal lesion characterized as simple-appearing, is likely benign. No follow-up imaging is recommended for these lesions per consensus recommendations based on imaging criteria. THIS DOCUMENT HAS BEEN ELECTRONICALLY SIGNED BY GLENN ULLOA MD TTE 05/21/2024: Resting echocardiogram is normal. Normal left ventricular wall thickness. Left ventricular systolicfunction is normal. Left ventricular ejection fraction 55- 60%. Left ventricular wall motion is normal. Left ventricular diastolic function is normal. There is no significant valvular disease. There is no pericardial effusion. Assessment and Plan IMPRESSION: Principal Problem: Undifferentiated inflammatory polyarthritis (HCC) Active Problems: Anemia of chronic disease Resolved Problems: * No resolved hospital problems. * DIFFERENTIAL AND PLAN: Bhavin Wilson is a 29 year old female with PMHx significant for seronegative inflammatory arthritis, L sided migraines, and AoC ACD who was transferred from [facility] with concerns for autoimmune arthritis and for further work up with bone marrow biopsy. Undifferentiated Autoimmune Polyarthritis ?Still's Disease At this point, differential diagnosis remains broad with Still's disease, HLH/MAS, SLE, systemic vasculitis. Rheumatology has been consulted, appreciate recommendations. We will obtain full auto-immune workup as below, but will also obtain another set of Bcx to rule out infectious causes given patient's tachycardia and hx of fevers. Will make patient NPO after midnight with hopes for Bone Marrow Biopsy tomorrow. Patient currently afebrile and hemodynamically stable, saturating at 100% on room air. Rheumatology consulted, appreciate recommendations DESTINY; EIA screen with reflexive AB Complement levels UA with Urine P/C ratio OR/INR , APTT, D-Dimer Fibrinogen levels F/U IL-2 Receptor, Anaplasma, EBV Ab pending F/U IgG, IgA, IgM levels Trending CBC, CMP daily Trending ESR/ CRP daily Trending Ferritin daily Trending LDH daily Trending Triglyceride Levels daily Bcx to rule out sepsis New onset Hypothyroidism Weakness, Fatigue Lab work from June 01 showed TSH of 10.6 and free T4 of 0.8. This is indicative of new onset hypothyroidism, and could be contributing to her weakness and fatigue. Reasonable to start her on low-dose Levoxyl 25 mcg with close OP follow up. Although patient's orthostatics were negative, reasonable to give her trial of Isolyte to help with softer blood pressures as this could also be contributing to weakness and fatigue. Start levoxyl 25 mcg OP follow up in 2-3 weeks 100 mL/ of Isolyte for 10 hours Acute on Chronic Anemia of Chronic Disease- worsening HgB downtrended from recent baseline of 11-12 to 8.7 today. Patient's ferritin levels [id number], indicative of anemia of chronic disease. Outside hospital records show diagnosis of iron-deficiency anemia. Although it is possible that patient has components of both, likely that patient has anemia is likely inflammatory in nature. No signs of active bleeding on exam, we will continue to trend with daily CBC and keep type and screen active. No signs of hemolysis. LDH high 632, however no hyperbilirubinemia Trend with Daily CBC, check haptoglobin Keep T&S active q3days Transfuse for HgB >7 Transaminitis- improving Likely related to arthritis and acute illness. Trending with CMP daily Chronic Problems: Migraines: Continue BIODIESEL TECHNOLOGY MANAGER 75 mg Topamax (6 more days on this dose, then increase to 100 mg on 06/06),Sumatriptan 12.5mg q2h prn KENYA: Continue BI[employer]EL TECHNOLOGY MANAGER Prozac 20 mg ACD/Vit. B12 def: Continue BIODIESEL TECHNOLOGY MANAGER Vitamin B12, holding Ferrous Sulfate 325 mg EOD Misc: Patient has 1 more dose of prednisone as per taper from OSH, will continue with 1 more dose of prednisone 5 mg Misc: Diet: Regular Diet, NPO after 2400 for potential BMB tomorrow Bowel Regimen: M/S Sleep: No sleep protocol ordered Burnham: Not indicated at this time PT/OT: consulted, appreciate recs GI prophylaxis: Not indicated at this time VTE Prophylaxis: Lovenox from 06/04 Code Status: FULL Anticipated Discharge: pending clinical course Incidental Findings: R renal simple cyst LINES / DRAINS / TUBES: LINES ALL Duration Peripheral Line Lower;Right 20 Gauge <1 day Peripheral Line Lower;Right Arm 20 Gauge <1 day List of services consulted/following: ADULT PHYSICAL THERAPY CONSULT IP ADULT OCCUPATIONAL THERAPY CONSULT IP RHEUMATOLOGY CONSULT IP CODE STATUS: Full Code EXPECTED DISCHARGE DATE: No information available This patient was discussed with Dr. Amanuel Blanton MD at the time of admission. Please see attending attestation for any updates/ changes to the plan. Noah Marie DO PGY-1, [facility] Internal Medicine Residency Cosigned by Amanuel Blanton MD at 06/02/2024 11:16 PM EST Associated attestation - Amanuel Blanton MD - 06/02/2024 11:16 PM EST I saw and evaluated the patient today. I have reviewed the resident/fellow physician note and agree. documented in this encounter Procedure Notes * Jonah Collado MD - 06/07/2024 4:14 PM ESTAssociated Order(s): EKG REASON FOR STUDY: Notify provider if obtaining EKG;Chest pain CONCLUSIONS: Warning: interpretation of this ECG, although attempted, may be adversely affected by data quality Normal sinus rhythm Prolonged QT interval or tu fusion, consider myocardial disease, electrolyte imbalance, or drug effects Abnormal ECG When compared with ECG of 06-Jun-2024 21:18, No significant change was found Ventricular Rate: 87 Atrial Rate: 87 OR Interval: 146 QRS Duration: 72 QT/QTc: 412/495 ms P-R-T Altha: 56 : 67 : 70 degrees * Maksim Dixon DO - 06/06/2024 9:18 PM ESTAssociated Order(s): EKG REASON FOR STUDY: ADDMIT CONCLUSIONS: Normal sinus rhythm Prolonged QT interval or tu fusion, consider myocardial disease, electrolyte imbalance, or drug effects Ventricular Rate: 93 Atrial Rate: 93 OR Interval: 130 QRS Duration: 74 QT/QTc: 420/522 ms P-R-T Altha: 50 : 73 : 73 degrees * Yannick Hall MD - 06/06/2024 5:56 PM ESTAssociated Order(s): EKG REASON FOR STUDY: electrolyte abnl;electrolyte abnl;Electroly CONCLUSIONS: Warning: interpretation of this ECG, although attempted, may be adversely affected by data quality Unusual P axis, possible ectopic atrial rhythm Nonspecific ST abnormality Prolonged QT interval or tu fusion, consider myocardial disease, electrolyte imbalance, or drug effects When compared with ECG of 04-Jun-2024 09:41, Ectopic atrial rhythm has replaced Sinus rhythm QT has lengthened Ventricular Rate: 96 Atrial Rate: 94 QRS Duration: 72 QT/QTc: 436/550 ms P-R-T Altha: 0 : 64 : 67 degrees * Zoie Cruz DO - 06/04/2024 3:11 PM EST PROCEDURE - Bone Marrow Biopsy/Aspiration - [place] [facility] [place] [id number] Name: Bhavin Wilson [place] [facility] Date: 06/04/2024 Time: 3:11 PM Bone Marrow Biopsy/Aspiration: Zoie Cruz DO, James Kamau, MD PRIOR TO PROCEDURE: Verify Correct Patient: Yes Verify Correct Site: Yes Verify Procedure Matches Verbalized Consent: Yes Verify Correct Position: Yes Availability of Necessary Equipment: Yes Other Healthcare Professional(s) Verbalize(s) Agreement with Timeout: Yes Anticoagulation / Antiplatelet: Yes - Lovenox PROCEDURE NOTE: Procedure: Bone marrow biopsy/aspiration Indication: fever work-up Zoning Administrator/Fundraising Sale Representative: Zoie Cruz DO directly supervised by Godwin Holt MD Complication/Corrective Action: None Comments/Findings: Patient identified and verified with medical record, name, and /or . After informed consent was obtained an area was identified in the right posterior iliac crest. Using sterile technique, the area was prepped with betadine and then infiltrated with 1% lidocaine without epinephrine. The patient specifically denied allergy to lidocaine. A bone marrow aspirate, biopsy, and specimens of flow cytometry and cytogenetics were easily obtained. The patient tolerated the procedure well. A pressure dressing was applied, and the patient was advised to leave this in place for 48 hours and to keep the area dry during that period. The patient was provided with written and verbal instructions. Minimal blood loss. Directly supervised by Godwin Holt MD and indirectly supervised by Jono De Jesus MD. Cosigned by Jono De Jesus MD at 06/04/2024 10:44 PM EST * Yannick Hall MD - 06/04/2024 9:41 AM ESTAssociated Order(s): EKG REASON FOR STUDY: Notify provider if obtaining EKG;Chest pain CONCLUSIONS: Sinus tachycardia When compared with ECG of 04-Jun-2024 05:28, No significant change was found Ventricular Rate: 104 Atrial Rate: 104 OR Interval: 122 QRS Duration: 74 QT/QTc: 346/454 ms P-R-T Altha: 64 : 78 : 63 degrees * Yannick Hall MD - 06/04/2024 5:28 AM ESTAssociated Order(s): EKG REASON FOR STUDY: CHEST PAIN CONCLUSIONS: Normal sinus rhythm Normal ECG When compared with ECG of 02-Jun-2024 14:13, No significant change was found Ventricular Rate: 78 Atrial Rate: 78 OR Interval: 162 QRS Duration: 78 QT/QTc: 408/465 ms P-R-T Altha: 68 : 79 : 62 degrees documented in this encounter Consult Notes * Lauryn Blanton MD - 06/07/2024 8:59 AM ESTAssociated Order(s): ADULT ENDOCRINOLOGY CONSULT IP See askadoc note * Kristy Casas MD - 06/05/2024 3:54 PM ESTAssociated Order(s): NEPHROLOGY CONSULT IP CONSULT - [place] [facility] [place] [id number] Name: Bhavin Wilson [place] [facility] [place] Date: 06/05/2024 Time: 5:54 PM REQUESTING SERVICE: Internal Medicine REASON FOR CONSULT: Concern for stills disease vs HLH, s/p bone marrow biopsy, subnephrotic proteinuria with edema, consulting for further guidance PROBLEM: proteinuria HPI: 29 year old female with history of seronegative inflammatory arthritis, migraines, anxiety disorder, currently being treated for AOSD with IV solumedrol 1mg/kg and Anakinra.Of note she follows with Rheumat[facility] [place] and was tried on Cimzia in February for arthritis but was stopped in March due to adverse reactions with rash, soon after that she was started on adalimumab in Aprilhowever that led to stopping of the medication due to worsening headaches. This admission is noted for persistent fever, tachycardia, elevated ferritin, LDH and mild transaminases, which are attributed to HLH/MAS syndrome along with Still's disease and Lupus being in the differentials. Nephrology has been consulted for ongoing sub nephrotic range proteinuria. Her UA is positive for moderate amount of blood, 30-49 red blood cells and spot urine PCR of 1.1 g. Of note she has no priorknown renal involvement. PAST MEDICAL HISTORY: No past medical history on file. PAST SURGICAL HISTORY: Past Surgical History: Procedure Laterality Date IR BIOPSY 02/19/2024 ALLERGIES: Sulfasalazine FAMILY HISTORY: Family History Problem Relation Name Age of Onset Cancer Mother bile duct Anemia Mother Heart Disorder Father mi Lung cancer Father Osteoarthritis Father Psoriasis Father Other (raynauds) Sister Psoriasis Sister Cancer Grandmother (Maternal) pancreatic Heart Disorder Grandfather (Paternal) mi @50 SOCIAL HISTORY: Social History Tobacco Use Smoking status: Never Smokeless tobacco: Never Vaping Use Vaping status: Never Used Substance Use Topics Alcohol use: Yes Comment: occasionaly Drug use: Never ROS: Constitutional: (+) fever, (+) weakness, and (+) fatigue Eyes: (-) negative, no amaurosis fugax, pain, blurred vision, or redness ENT: (+) headaches Cardiovascular: (+) epigastric pain Pulmonary : (-) negative: no cough, wheezing, or shortness of breath Abdominal/GI: (-) negative: no pain, heartburn, dysphagia, bleeding, change in bowel habits, nauseaor vomiting Female : (-) negative: no dysuria, pelvic pain, irregular menses, or vaginal discharge Skin: (-) negative: no rash or new or changing moles History of NSAID: No History of exposure to IV contrast: No Denies any other symptoms, all other ROS are negative. PHYSICAL EXAMINATION: Most Recent Vital Signs: BP: 96 mmHg/72 mmHg (06/05/24 1450) Pulse: 79 (06/05/24 1450) Resp: 16 (06/05/24 1450) Temp: 36 C (06/05/24 1450) Temp Summary: Temp Min: 35.6 C (96.1 F) Max: 36.4 C (97.5 F) SpO2: 100 % (06/05/24 1450) O2 flow rate: Supplemental O2 Delivery: Room Air, None (06/05/24 145) Vital Signs Last 24 Hours: Systolic BP: Most Recent Systolic BP Av.7 mmHg Min: 96 mmHg Max: 113 mmHg Temperature: Most Recent Temperature Av C Min: 35.61 C Max: 36.39 C Pulse: Pulse Av.5 Min: 68 Max: 83 Respirations: Resp Av Min: 16 Max: 18 SpO2: SpO2 Av.8 % Min: 95 % Max: 100 % I/O Brief: Intake/Output Summary (Last 24 hours) at 06/05/2024 1754 Last data filed at 06/05/2024 1528 Gross per 24 hour Intake 2887.81 ml Output 250 ml Net 2637.81 ml Drips: Constitutional: (+) chronically ill HEENT: normal: normocephalic, atraumatic; no masses, tenderness, or adenopathy CV: normal rate and rhythm, no murmur, gallops or rub Chest: normal respiratory effort, lungs clear to auscultation and percussion Abdomen: normal: soft, bowel sounds normal, no masses, tenderness or organomegaly Extremities Edema: no edema Neuro: alert, oriented to person, place, and time, normal mental status exam Skin: warm, dry, intact LABS: Labs reviewed as indicated below: Lab results within last 7 days (see chart for full results) Units 06/05/24 0552 06/04/24 0543 06/03/24 0557 HGB g/dL 9.0* 9.1* 8.5* HCT % 29.0* 29.3* 26.6* WBC K/uL 3.12* 3.75* 4.46 PLT K/uL 319 329 321 Lab results within last 7 days (see chart for full results) Units 06/05/24 0551 06/04/24 1133 06/04/24 0543 06/03/24 0557 SODIUM mmol/L 137 -- 133* 134* POTASSIUM mmol/L 3.3* -- 3.7 3.4* CHLORIDE mmol/L 107 -- 105 104 CO2 mmol/L 19* 18* 19* 21* BUN mg/dL 10 -- 11 6 CREATININE mg/dL 0.4* -- 0.4* 0.5 Intake/Output Summary (Last 24 hours) at 06/05/2024 1758 Last data filed at 06/05/2024 1528 Gross per 24 hour Intake 2887.81 ml Output 250 ml Net 2637.81 ml IMAGING: CT abdomen pelvis with IV contrast from 06/02/2024 seen and images independently interpreted retroperitoneal lymph node seen. IMPRESSION: 29 year old female with history of seronegative inflammatory arthritis, migraines, anxiety disorder, currently being treated for AOSD with IV solumedrol 1mg/kg and Anakinra.Nephrology hasbeen consulted for ongoing sub nephrotic range proteinuria. Plan -kidney involvement in adult onset still disease mainly represents ongoing proteinuria. This couldbe from underlying interstitial nephritis, mesangial GN /IgAN or secondary amyloidosis. -Degree of proteinuria is not convincing for any underlying glomerulonephritis, lupus is less likely -Recommend 24 hour urine for proteinuria -Can consider renal biopsy is proteinuria persists -Check cystatin C -Avoid nephrotoxins Will follow with you Kristy Casas MD Nephrology * Manuel Palumbo, DO - 06/05/2024 1:06 PM ESTAssociated Order(s): GENERAL SURGERY CONSULT IP CONSULTS - Trauma/Emergency Surgery [facility] [place] [id number] Name: Bhavin Wilson [place] [facility] [place] Date: 06/05/2024 Time: 1:06 PM PRESENTING PROBLEM: Epigastric pain HISTORY OF PRESENT ILLNESS: Bhavin Wilson is a 29 year old female who initially presented on 06/02/24 with joint pain, fevers, and rash. 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 She was started on methylprednisolone and Anakinra and that has been continued so far this admission. On the morning of 06/04/24, patient reported 8/10 epigastric and substernal pain. There was concernfor cardiac etiology with abnormal EKG and elevated troponin and so Cardiology was consulted. However they ruled out cardiac cause due to normal repeat EKGs, steady troponin, and normal TTE. D-dimer was also elevated (2.70>4.09) and so a CTPE was negative for PE. The CT PE was however, positive for extensive perihepatic edema suggestive of pancreatitis. GI recommended abdominal US which found cholelithiasis without choledocholithiasis. Patient did have an elevated lipase (2652), AST (171>121), ALT (54>43), triglycerides (507). Total bilirubin and lactate normal. No leukocytosis. Last fever on 06/03/24. Per patient, epigastric pain began the morning of 06/03. Initially rated 8/10, now 4/10. Radiates to back. Nothing alleviates or aggravates pain. Denies fever, chills, nausea, vomiting. Reports several episodes of diarrhea two days ago but one small regular bowel movement yesterday. Continues to pass flatus. She never experienced symptoms like this previously. No history of gallstones. No hx of ab dominal surgery. HOSPITAL PROBLEM LIST: Principal Problem: Undifferentiated inflammatory polyarthritis (HCC) (POA: Yes) Active Problems: Anemia of chronic disease (POA: Yes) MAS (macrophage activation syndrome) (HCC) (POA: Unknown) Still's disease (HCC) (POA: Unknown) Rash (POA: Unknown) Chest pain, non-cardiac (POA: Unknown) Idiopathic acute pancreatitis (POA: Unknown) POA = Present On Admission PAST MEDICAL HISTORY: No past medical history on file. PAST SURGICAL HISTORY: Past Surgical History: Procedure Laterality Date IR BIOPSY 02/19/2024 FAMILY HISTORY: Family History Problem Relation Name Age of Onset Cancer Mother bile duct Anemia Mother Heart Disorder Father mi Lung cancer Father Osteoarthritis Father Psoriasis Father Other (raynauds) Sister Psoriasis Sister Cancer Grandmother (Maternal) pancreatic Heart Disorder Grandfather (Paternal) mi @50 SOCIAL HISTORY: Social History Tobacco Use Smoking status: Never Smokeless tobacco: Never Vaping Use Vaping status: Never Used Substance Use Topics Alcohol use: Yes Comment: occasionaly Drug use: Never CURRENT HOSPITAL MEDICATIONS: Note that completed medications (per the MAR) continue to display for 24 hours. Ordered medicationsto be given in the future also display. Current Facility-Administered Medications Medication Dose Route Frequency Provider HYDROmorphone (Dilaudid) tab 2 mg 2 mg Oral Q4H PRN Flex Nunez MD HYDROmorphone (Dilaudid) tab 4 mg 4 mg Oral Q4H PRN Flex Nunez MD potassium and sodium phosphate (Phos-Nak) oral powder 1 Packet 1 Packet Oral TID(AM/NOON/HS) Flex Nunez MD Acetaminophen (Tylenol) tab 650 mg 650 mg Oral Q6H Flex Nunez MD Fenofibrate (Lofibra) tab 160 mg 160 mg Oral Daily(AM) Flex Nunez MD Isolyte-S pH 7.4 infusion Intravenous Continuous Flex Nunez MD Morphine Sulfate (PF) inj 3 mg 3 mg IV Push Q4H PRN Flex Nunez MD Polyethylene Glycol 3350 (Miralax) oral powder 17 g 1 Packet Oral PRN Flex Nunez MD senna-docusate (Senokot-S) 1 Tablet 1 Tablet Oral Daily PRN Flex Nunez MD Anakinra (Kineret) inj 200 mg 200 mg Subcutaneous Daily(AM) Flex Nunez MD FLUoxetine (PROzac) cap 20 mg 20 mg Oral Daily 1500 Linwood Carrillo DO levothyroxine (Levoxyl) tab 88 mcg 88 mcg Oral Daily 0630 Flex Nunez MD methylPREDNISolone sodium succ (SOLU-Medrol) inj 55 mg 55 mg Intravenous Daily(AM) Flex Nunez MD omeprazole (PriLOSEC) cap 40 mg 40 mg Oral Daily(AM) Flex Nunez MD sodium chloride 0.9 % flush/inj 3 mL 3 mL IV Push PRN Noah Marie DO SUMAtriptan (Imitrex) tab 12.5 mg 12.5 mg Oral Q2H PRN Noah Marie DO ALLERGIES: Sulfasalazine ROS: Pertinent positive and negatives are mentioned in the HPI. Otherwise ROS is negative. PHYSICAL EXAMINATION: Most Recent Vital Signs: BP: 102 mmHg/71 mmHg (06/05/24 1051) Pulse: 83 (06/05/24 1051) Resp: 16 (06/05/24 1051) Temp: 36.39 C (06/05/24 1051) Temp Summary: Temp Min: 35.6 C (96.1 F) Max: 36.4 C (97.5 F) SpO2: 100 % (06/05/24 1051) O2 flow rate: Supplemental O2 Delivery: Room Air, None (06/05/24 1051) Constitutional: mild distress due to pain HEENT: normal: normocephalic, atraumatic Chest: normal respiratory effort on room air Abdomen: soft, diffuse mild tenderness, moderate epigastric region tenderness, nondistended, no rebound or guarding Skin: warm, dry Neuro: alert, oriented to person, place, and time Psych: normal mood and affect LABS: Labs reviewed as indicated below: Chemistry Panel: Lab results within last 7 days (see chart for full results) Units 06/05/24 0858 06/05/24 0551 06/04/24 1133 06/04/24 0543 06/03/24 0557 06/02/24 1431 06/01/24 1136 SODIUM mmol/L -- 137 -- 133* 134* 130* 135 POTASSIUM mmol/L -- 3.3* -- 3.7 3.4* 4.4 4.5 CHLORIDE mmol/L -- 107 -- 105 104 97* 99 CO2 mmol/L -- 19* 18* 19* 21* 22 25 EGFR mL/min -- >90 -- >90 >90 >90 >90 BUN mg/dL -- 10 -- 11 6 10 10 CREATININE mg/dL -- 0.4* -- 0.4* 0.5 0.5 0.5 GLUCOSE mg/dL -- 86 -- 90 95 89 99 CALCIUM mg/dL -- 6.3* -- 7.6* 7.1* 7.8* 8.1* Magnesium mg/dL -- -- -- -- -- -- 2.2 Phosphorus mg/dL 2.1* -- -- -- -- -- -- ANION GAP mmol/L -- 11 -- 9 9 11 11 Complete Blood Count: Lab results within last 7 days (see chart for full results) Units 06/05/24 0552 06/04/24 0543 06/03/24 0557 06/02/24 1431 06/01/24 1136 WBC K/uL 3.12* 3.75* 4.46 4.32 3.53* HGB g/dL 9.0* 9.1* 8.5* 8.7* 10.2* HCT % 29.0* 29.3* 26.6* 27.3* 31.9* PLT K/uL 319 329 321 362 438* MCV fL 84.8 84.7 84.7 83.0 83.3 Cardiac Studies: Lab results within last 7 days (see chart for full results) Units 06/04/24 1133 06/04/24 0855 06/04/24 0543 Troponin T, High Sensitivity ng/L 137* 147* 125* BNP, NT-Pro pg/mL -- -- 1,482* Coagulation Studies: Lab results within last 7 days (see chart for full results) Units 06/05/24 0551 06/04/24 0543 06/03/24 0557 Prothrombin Time seconds 13.0 13.1 13.6 INR 1.0 1.0 1.0 aPTT seconds 36 38 40* D-Dimer ug/mL FEU 4.09* 3.77* 2.70* Liver Function Panel: Lab results within last 7 days (see chart for full results) Units 06/05/24 0551 06/04/24 0543 06/03/24 0557 06/02/24 1431 06/01/24 1136 Albumin g/dL 2.2* 2.3* 2.1* 2.6* 2.7* Protein g/dL 5.1* 5.5* 5.0* 6.2 5.9* Bilirubin, Total mg/dL 0.2 0.2 0.3 0.3 0.3 Bilirubin, Direct mg/dL -- -- -- <0.2 -- AST U/L 121* 134* 137* 156* 171* ALT U/L 43* 41* 42* 47* 54* Alkaline Phosphatase U/L 89 95 93 112 118 Triglycerides mg/dL 507* 411* 352* -- 456* Infectious Studies: Lab results within last 7 days (see chart for full results) Units 06/05/24 0551 06/04/24 1205 06/04/24 1032 06/04/24 0543 06/03/24 0557 06/01/24 1136 Lactate mmol/L -- 0.9 1.1 -- -- -- Ferritin ng/mL 7,613* -- -- 9,351* 9,201* 9,974* CRP (Inflammatory Marker) mg/L 32* -- -- 56* 67* 65* ESR mm/hour 32* -- -- 41* 29* 47* Cultures: reviewed. Lab results within last 7 days (see chart for full results) Units 06/04/24 1104 Coronavirus SARS-CoV-2 by PCR Negative Recent Cultures (2 Weeks) 06/02/2024 06/02/2024 11:07 PM 10:17 PM BLOOD CULTURE GROWTH -- No growth to date No growth to date QUANT URINE CULTURE GROWTH No significant growth -- IMAGING: US ABDOMEN 06/04/2024 1. Heterogenous appearance of the pancreas with trace fluid about the pancreatic head in keeping with known pancreatitis 2. Cholelithiasis with trace pericholecystic fluid a possibly related to pancreatitis. The gallbladder wall is at the upper limits of normal in thickness negative sonographic Turner's sign. Findings are equivocal for equivocal for acute cholecystitis. Fluid cystitis 3. Hepatic steatosis. CT ABD/PELVIS W IV CONTRAST WO ORAL CONTRAST 06/02/2024 FINDINGS: Liver: Normal. Gallbladder and biliary ducts: No acute process. Pancreas: Normal. IMPRESSION: Omar Wilson is a 29 year old female with PMH of KENYA initially presenting for joint pain and fevers 2/2 uncertain rheumatic etiology, now with epigastric pain. Pancreatitis confirmed with elevated lipase (2652), epigastric pain radiating to back, and CT and US findings of peripancreatic fluid. Gallstone etiology likely with cholelithiasis on US. Imaging equivocal for cholecystitis, which isless likely given normal WBC and no fever. Other significant labs include elevated AST (171>121), ALT (54>43), and mildly elevated triglycerides (507). Bilirubin and lactate normal. PLAN: - Plan for lap alexa when epigastric/RUQ pain improves - Tentatively booked for Saturday but case is subject to cancellation if signficant epigastric pain continues - Will need consent - Please order NPO after midnight tomorrow for possible OR on Saturday - Continue fluids and pain management for pancreatitis - GI following, appreciate recs Patient examined at bedside and discussed w/ Dr. Curran This note was a combined effort by Anjelica Lara, MS-3 and Manuel Palumbo DO Cosigned by Jono Curran MD at 06/06/2024 11:26 AM EST Associated attestation - Jono Curran MD - 06/06/2024 11:26 AM EST I saw and evaluated the patient 06/05/2024. I have reviewed the resident/fellow physician note and agree. Pancreatitis- probable gallstone related- trend pain and once pain resolved will plan for lap alexa * Jama Edwards DO - 06/04/2024 5:30 PM ESTAssociated Order(s): GASTROENTEROLOGY CONSULT IP CONSULT - Gastroenterology [facility] [place] [id number] Name: Bhavin Wilson [place] [facility] [place] Date: 06/04/2024 Time: 3:25 PM REQUESTING SERVICE: Santino Valente REASON FOR CONSULT: patient with suspected Still's disease, suspicion for myopericarditis, now w/ CT showing pancreatitis unknown etiology - appreciate assistance w/ evaluation of cause (hypertriglycerides, igg4?, vs other) HPI: Bhavin Wilson is a 29 year old female who is evaluated for pancreatitis in the setting ofsuspected Still's Disease with c/f for myopericarditis as well. She has a hx of migraines, seronegative inflammatory arthritis who was transferred from [facility] for suspected Still's disease after she hadjoint pain, intermittent fever, h/a for the last 2-3 weeks. Last night and into today she begun to have chest pain, and had elevated troponin's to 127 to 147 to 137 and had a CTAPE done to rule out PE as cause of CP and elevated troponins, but incidentally found acute interstitial edematous pancreatitis which is new from 06/02. She was seen bedside, and reported being hungry but having some pain in the epigastric area still. She says she's never had history of pancreatitis, no family history either, and is a occasional userof ETOH. Currently denies fever chills chest pain sob cough n/v. HISTORY: Past Medical History: No past medical history on file. Past Surgical History: Past Surgical History: Procedure Laterality Date IR BIOPSY 02/19/2024 Social History: Social History Tobacco Use Smoking status: Never Smokeless tobacco: Never Vaping Use Vaping status: Never Used Substance Use Topics Alcohol use: Yes Comment: occasionaly Drug use: Never Family History: Family History Problem Relation Name Age of Onset Cancer Mother bile duct Anemia Mother Heart Disorder Father mi Lung cancer Father Osteoarthritis Father Psoriasis Father Other (raynauds) Sister Psoriasis Sister Cancer Grandmother (Maternal) pancreatic Heart Disorder Grandfather (Paternal) mi @50 Allergies: Sulfasalazine ROS: As per above. PHYSICAL EXAMINATION: Most Recent Vital Signs: BP: 103 mmHg/69 mmHg (06/04/24 145) Pulse: 72 (06/04/24 145) Resp: 18 (06/04/241452) Temp: 36.17 C (06/04/241452) Temp Summary: Temp Min: 35.6 C (96 F) Max: 37.3 C (99.2 F) SpO2: 100 % (06/04/241452) O2 flow rate: Supplemental O2 Delivery: Room Air, None (06/04/241452) Vital Signs Last 24 Hours: Systolic BP: Most Recent Systolic BP Av.9 mmHg Min: 97 mmHg Max: 114 mmHg Temperature: Most Recent Temperature Av.4 C Min: 35.56 C Max: 37.33 C Pulse: Pulse Av Min: 61 Max: 117 Respirations: Resp Av.5 Min: 16 Max: 20 SpO2: SpO2 Av.8 % Min: 93 % Max: 100 % Constitutional: no acute distress, resting comfortably in bed, speaking in full sentences HENT: NCAT, MMM Eyes: sclera and conjunctiva normal Neck: normal range of motion CV: normal rate and rhythm, no murmur, gallops or rub Chest: normal respiratory effort, lungs clear to auscultation Abdomen: soft, bowel sounds normal, mild tenderness in epigastric area Extremities: no clubbing, cyanosis, or edema, otherwise grossly normal, warm, and dry Psych: normal mood and affect LABS: Labs reviewed. Hgb: 9.1 WBC: 3.75 Platelets: 329 Cr: 0.4 K: 3.7 Mg: n/a Ca: 7.6 CRP 56 ESR 41 Albumin 2.3 AST 134 ALT 41 TB 0.2 Triglycerides 456-->352-->411 Lipase 2652 Imaging: CT pulmonary embolism with contrast: No pulmonary embolism, acute interstitial edematous pancreatitis in the imaged upper abdomen new from previous abdominal scan on 06/02 IMPRESSION: Bhavin Wilson is a(n) 29 year old female who presents with concern for adult onsetstill's disease and ? Macrophage activating syndrome with possible myopericarditis and now imaging showing new interstitial edematous pancreas new from her CTAP on 06/02. Before contributing pancreatitis to the Adult onset Stills disease, would like to rule out other culprits. Triglycerides elevated to 400s, but doubt that would be enough to be culprit. Calcium appropriate level, CTAP on 06/02 without any GB findings, however, doesn't rule out non-calcified stones. Will also need to r/o genetic/familial causes. RECOMMENDATIONS/PLAN: -follow up US of abdomen -c/w fluid resuscitation -okay for diet -recommend checking IgG4 -recommend checking familial/genetic pancreatitis panel -will continue to follow I have discussed the case with my attending, Dr Mena. Cosigned by August Mena MD at 06/04/2024 11:16 PM EST Associated attestation - August Mena MD - 06/04/2024 11:16 PM EST I saw and evaluated the patient today. I have reviewed the resident/fellow physician note and agree. August Mena MD * Ren Mann MD - 06/04/2024 1:22 PM ESTAssociated Order(s): CARDIOLOGY CONSULT IP CONSULT - Cardiology [facility] [place] [id number] Name: Bhavin Wilson [place] [facility] [place] Date: 06/04/2024 Time: 1:22 PM REQUESTING SERVICE: Shonna Valente REASON FOR CONSULT: "Concern for Still's disease vs HLH, now with elevated troponin, atypical chestpain, concern for myocarditis, consulting for further guidance" HPI: Bhavin Wilson is a 29 year old female admitted on 06/02/24 for persistent fevers, rash, and joint pain, concerning for Still's Disease with evolving macrophage activating syndrome. Cardiology has been consulted for atypical chest pain and elevated troponin PMH includes: Seronegative inflammatory arthritis Migraines GERD Anxiety Patient originally presented to [facility] on 05/29/24 at the recommendation of Primary Care Provider afternoting joint pain, generalized weakness, and persistent waxing/waning fevers with vital signs notable of 101.1*F temperature and heart rate of 130's bpm. Due to concern of inflammatory arthritis, discussed patient with Rheumatology who ultimately recommended [place] [facility] [place] in evaluation of Still's disease. Upon transfer, Rheumatology and Hematology have been consulted for further evaluation of patient, most concerning for AOSD with HLH/MAS and started on Solumedrol + Anakinra. Starting this AM, patient began reporting non-cardiac chest pain/abdominal pain, characterized as sharp-stabbing, located in epigastric/substernal region with radiation to back and into abdomen, reproducible upon palpation, minimally exacerbated by lying back and deep inspiration, alleviated by lying forward/not moving, and associated symptoms of nausea. ECG obtained by primary team and noted concern for acute changes. Troponin and BNP obtained and found to be elevated. CTPE negative for PE, however, discovered acute pancreatitis. Lipase discovered to be 2652. PAST MEDICAL HISTORY: No past medical history on file. PAST SURGICAL HISTORY: Past Surgical History: Procedure Laterality Date IR BIOPSY 02/19/2024 FAMILY HISTORY: Family History Problem Relation Name Age of Onset Cancer Mother bile duct Anemia Mother Heart Disorder Father mi Lung cancer Father Osteoarthritis Father Psoriasis Father Other (raynauds) Sister Psoriasis Sister Cancer Grandmother (Maternal) pancreatic Heart Disorder Grandfather (Paternal) mi @50 SOCIAL HISTORY: Social History Tobacco Use Smoking status: Never Smokeless tobacco: Never Vaping Use Vaping status: Never Used Substance Use Topics Alcohol use: Yes Comment: occasionaly Drug use: Never ALLERGIES: Sulfasalazine ROS: Negative unless pertinent positives above in HPI PHYSICAL EXAMINATION: Most Recent Vital Signs: BP: 102 mmHg/65 mmHg (06/04/241114) Pulse: 84 (06/04/241114) Resp: 20 (06/04/241114) Temp: 36.5 C (06/04/241114) Temp Summary: Temp Min: 35.6 C (96 F) Max: 38.7 C (101.7 F) SpO2: 100 % (06/04/241114) O2 flow rate: Supplemental O2 Delivery: Room Air, None (06/04/241114) Vital Signs Last 24 Hours: Systolic BP: Most Recent Systolic BP Av mmHg Min: 97 mmHg Max: 114 mmHg Temperature: Most Recent Temperature Av.8 C Min: 35.56 C Max: 38.72 C Pulse: Pulse Av.6 Min: 61 Max: 117 Respirations: Resp Av.8 Min: 16 Max: 20 SpO2: SpO2 Av.8 % Min: 93 % Max: 100 % General Exam: General: No acute distress, resting comfortably in bedside recliner, appears both acutely and chronically ill, notable muscular wasting, thin habitus Head and face: atraumatic, normocephalic Eyes: normal lids, nonicteric sclera, no conjunctival injection Nose: no rhinorrhea or congestion, nares patent Neck: supple, symmetrical, trachea midline Respiratory: Non-labored breathing, CTAB, no adventitious breath sounds Cardiovascular: Regular rate and rhythm, S1 and S2 appreciated, no r/g/m, No JVD, negative HJR Abdomen: Tender to palpation in RUQ with less tenderness throughout remainder of abdomen Peripheral vascular: cap refill 2-3 seconds, 1+ LE edema, Radial 3/4, Carotid 3/4 bilaterally Skin: intact, Psychiatric: Flat affect Mental status: Alert, oriented to person, place, and time Language: expression / comprehension intact Speech: no dysarthria LABS: Reviewed EMR BNP 1482 Trop 137 <- 147 <- 125 AST 134, ALT 41 Na 133, K 3.7 BUN 11, Cr 0.4 WBC 3.75 Hgb 9.1 Plt 329 STUDIES: Reviewed EMR CTPE 06/04/2024 IMPRESSION 1. No pulmonary embolism. 2. Acute interstitial edematous pancreatitis in the imaged upper abdomen, new in the short intervalfrom 06/02/2024. 3. Mild multifocal infectious/inflammatory nodular opacities in the lungs. 4. Trace pleural effusions. 5. Axillary/subpectoral lymphadenopathy, often related to connective tissue disease, unchanged on the left and improved on the right since 01/28/2024. TTE 06/04/2024 Interpretation Summary The examination is adequate to evaluate the referral indication. The qualitative LV ejection fraction is 55-59% (normal). No LV segmental wall motion abnormalities. The right ventricular cavity size is normal (basal dimension < 4.2 cm RV apical 4 chamber view). The right ventricular systolic function is qualitatively normal. No significant valvular disease is present. ECG 06/04/2024: Per my read - Tachycardia at rate of 104 bpm. Normal T-waves and R wave progression ECG 06/04/2024: Per my read - Normal sinus rhythm with T-waves inverted in lead V2 compared to prior ECG ECG 06/02/2024: Per my read - NSR without acute segment/interval changes [employer] Cardiac Meds: N/A Active Cardiac Meds: N/A IMPRESSION and RECOMMENDATIONS: Principal Problem: Undifferentiated inflammatory polyarthritis (HCC) (POA: Yes) Active Problems: Anemia of chronic disease (POA: Yes) MAS (macrophage activation syndrome) (HCC) (POA: Unknown) Still's disease (HCC) (POA: Unknown) Resolved Problems: * No resolved hospital problems. * POA = Present On Admission Bhavin Wilson is a 29 year old female admitted with concern for adult onset stills disease with/without progression to macrophage activating syndrome/hemophagocytic lymphohistiocytosis. Pertinent PMH inflammatory arthritis, migraines, GERD, anxiety. Cardiology consulted for non-cardiac chest pain, T-wave change in lead V2, and elevated troponin. Patient's repeat ECG showed resolution of T-wave change, may/may not be in relation to lead placement. Troponin elevated but flat, most consistentwith nonischemic myocardial injury which can be explained by ongoing active inflammatory disease (concern for AOSD/MAS) as evidenced by laboratory markers. TTE did now show any abnormalities, specifically negative for pericardial effusion or obvious cardiomyopathy. At best, patient meets 1/4 markers for pericarditis and clinical picture is not consistent with myocarditis. No concern for ACS. Current symptoms, CT imaging, and lipase all consistent with acute pancreatitis. Recommendations by problem as follows: Nonischemic Myocardial Injury Patient does not meet criteria for ACS or pericarditis/myocarditis, do not recommend further workup. Workup consistent with pancreatitis If patient's telemetry continues to remain stable 24 hours after inciting event (tomorrow AM) wouldrecommend discontinuation Pt was seen, examined, and discussed with attending physician Dr. Olivera. Please see final attestation for any additional recommendations. This chart was completed in part utilizing [employer] Speech Voice Recognition Software. Grammatical errors, random word insertions, pronoun errors, and incomplete sentences are an occasional consequence of this system due to software limitations, ambient noise, and hardware issues. Any formal questions or concerns about the content, text, or information contained within the body of this dictation should be directly addressed to the physician for clarification. Cosigned by Campbell Olivera MD at 06/04/2024 5:31 PM EST Associated attestation - Campbell Olivera MD - 06/04/2024 5:31 PM EST I saw and evaluated the patient today. I have reviewed the resident/fellow physician note and agree. 1- Noncardiac chest pain due to pancreatitis. * Candelaria Barcenas DPT - 06/03/2024 2:06 PM ESTAssociated Order(s): ADULT PHYSICAL THERAPY CONSULT IP Physical Therapy - General Evaluation [address] [id number] Name: Bhavin Wilson [place] [facility] [place] Date: 06/03/2024 Time: 2:06 PM Bhavin Wilson is a/an 29 year old female. Patient Status: Inpatient Insurance: Payor: [facility] Plan: [employer] EXTRA HM-[id number] Product Type: *No Product type* Patient Seen: at bedside, nursing cleared patient for therapy Patient Identified By: Name, ID Band and Date Diagnosis: undifferentiated inflammatory polyarthritis (06/03/24 1406) Status of treatment: Evaluation completed (06/03/241405) Orders: PT evaluation and treatment (06/03/241405) Weight Bearing Status: Weight bearing as tolerated (06/03/241405) Precautions: Falls;Safety (06/03/241405) Total Treatment Time--free text: 8 (06/03/241405) Subjective: Pt encountered supine in bed and agreeable to therapy. Past Medical History: No past medical history on file. Past Surgical History: Past Surgical History: Procedure Laterality Date IR BIOPSY 02/19/2024 Social History/Disposition Lives with: (partner) (06/03/241405) Assistance available: Yes (06/03/241405) Dwelling type: Single story home (06/03/241405) Entry steps: None (06/03/241405) Inside steps: None (06/03/241405) Bedroom location: 1st floor (06/03/241405) Bath location: 1st floor full bath (06/03/241405) Prior Level of Function Reported by: Patient (06/03/241405) Ambulation: Ambulatory without device (06/03/241405) Devices at home: Shower chair (06/03/241405) Observations Consciousness: Alert (06/03/241405) Orientation: Oriented times 4 (06/03/241405) Psychosocial: Patient can communicate basic needs;Patient can converse in a social setting (06/03/241405) Sitting Posture: Forward head;Rounded shoulders (06/03/241405) Standing Posture: Forward head;Rounded shoulders (06/03/241405) Pain: No complaints of pain Range of Motion Range of Motion: WFL (06/03/241405) Strength Assessment Strength Assessment: (B LE grossly 3-/5) (06/03/241405) P.T. Bed Mobility Supine-Sit: Minimal Assistance (06/03/241405) Sit-Supine: Minimal Assistance (06/03/241405) Transfers Sit-Stand: Minimal Assistance (x2) (06/03/241405) Stand-Sit: Minimal Assistance (x2) (06/03/241405) Ambulation Assist: Minimal Assistance (x2) (06/03/241405) Distance Ambulated (feet): 3 (06/03/241405) Assistive Device: No device (06/03/241405) Noted gait deviations: slow gait speed, mild unsteadiness (06/03/241405) Ambulatory safety: Patient verbalizes insight of current deficits (06/03/241405) Balance Sit (Static): Fair (06/03/241405) Sit (Dynamic): Fair (06/03/241405) Stand (Static): Poor (06/03/241405) Stand (Dynamic): Poor (06/03/241405) Patient and or Family Goal(s): to get well and to return home Patient Education Review of Precautions: Safety;Fall (06/03/241405) Safety Awareness: Patient verbalizes insight of current deficits;Patient can communicate basic needs;Needs cueing supervision (06/03/241405) Preferred learning method: Combination (06/03/241405) Barriers to learning: Medical Status (06/03/241405) Method of Education: Verbalized to patient (06/03/241405) Topic of Education: Safety with mobility and Goals/plan of care Treatment Provided: Evaluation Low Complexity 8 minutes - 58309: Patient was cooperative during treatment session. Low complexity evaluation performed with indication of no personal factors or comorbidities that impact plan of care. Patient presents with limitations in strength, bed mobility, transfers, gait, balance, endurance, and safety, which will impact plan of care. These limitations will be addressed by the goals set for this patient. Alarm Status Patient positioned in: Chair (06/03/241405) With: Call ma in reach (06/03/241405) No alarm present on bed upon entry. Treatment Status: Treatment at bedside (06/03/241405) Assessment: [place] [facility] [place] undifferentiated inflammatory poly[place]. Prior to admissionpt was living with her partner in a single story home with no steps to enter. Pt states prior was ambulating without a device. Today pt required minimal assistance for supine to sitting edge of bed for UE and trunk. Pt able to complete sit to stand from bed with minimal assistance of 2. Pt ambulated 3' from bed to chair with minimal assistance of 2. Pt demonstrates weakness in B LE and declined further mobility today as pt wanting to eat lunch. Pt would benefit from skilled PT to improve stateddeficits. Please consider post-acute care services which may include home health, penitentiary, o utpatient therapy or inpatient rehabilitation. The level of care will be determined in collaboration with patient, family/caregiver and care team members. Goals: Demonstrate Bed Mobility with: Sit to supine: modified independent Supine to sit: modified independent Demonstrate transfers with: Sit to stand: modified independent Stand to sit: modified independent Bed to chair: modified independent with least restrictive device Chair to bed: modified independent with least restrictive device Demonstrate ambulation: distance: 150 feet with assistive device: least restrictive device and level of assistance: modified independent Increase Strength: to 5/5 BLE Increase Balance: fair+ sitting / fair+ standing Increase safety: with all functional mobility Time Frame: 8 visits Treatment Plan: Bed mobility training, Transfer training, Gait training, Strengthening exercises, and Balance activities Deficits requiring P.T. treatment needs: Safety;Mobility;Weakness;Balance;Endurance;Lower extremitystrength (06/03/24 140) Equipment needs: No device (06/03/241405) Anticipated Frequency (on eval): 1 to 3 times per week (06/03/241405) AM-PAC Score With Stairs : 13 (06/03/24 140) A portion of this AM-PAC assessment not scored based on functional assessment; rather clinical decision making utilized based on current findings and/or prior level of function. Please refer to future AM-PAC calculations of functional ability as they become available. Candelaria Barcenas, PT, DPT, NCS * Maia Fisher OTR/Rere - 06/03/2024 2:06 PM ESTAssociated Order(s): ADULT OCCUPATIONAL THERAPY CONSULT IP GENERAL EVALUATION - [place]ational [place] [facility] [place] [id number] Name: Bhavin Wilson [place] [facility] [place] Date: 06/03/2024 Time: 2:06 PM Bhavin Wilson is a 29 year old female. Patient Status: Inpatient Insurance: Payor: [facility] Plan: [employer] EXTRA HM-E3 Product Type: *No Product type* Patient Seen: at bedside, nursing cleared patient for therapy Patient Identified By: Name, ID Band and Date Diagnosis: Undifferentiated inflammatory polyarthritis (06/03/241405) Status of treatment: Evaluation completed (06/03/241405) Orders: OT evaluation and treatment (06/03/241405) Weight Bearing Status: Weight bearing as tolerated (06/03/241405) Precautions: Falls;Safety (06/03/241405) Total Treatment Time: 8 (06/03/241405) Past Medical History: No past medical history on file. Past Surgical History: Past Surgical History: Procedure Laterality Date IR BIOPSY 02/19/2024 Social History/Disposition Lives with: (significant other) (06/03/241405) Assistance available: Yes (06/03/241405) Dwelling type: Single story home (06/03/241405) Entry steps: None (06/03/241405) Inside steps: None (06/03/241405) Bedroom location: 1st floor (06/03/241405) Bath location: 1st floor full bath (06/03/241405) Prior Level of Function Reported by: Patient (06/03/241405) Ambulation: Ambulatory without device (06/03/241405) Grooming: Independent (06/03/241405) Bathing: Independent (06/03/241405) Dressing: Independent (06/03/241405) Feeding: Independent (06/03/241405) Toileting: Independent (06/03/241405) Meal Prep: Assistance (06/03/241405) Homemaking: Assistance (06/03/241405) Durable Medical Equipment at home: Shower chair (06/03/241405) Subjective: Pt agreeable to OT evaluation. Pain: No complaints of pain Observations Consciousness: Alert (06/03/241405) Orientation: Oriented times 4 (06/03/241405) Psychosocial: Patient can communicate basic needs;Patient can converse in a social setting (06/03/241405) Sitting posture: Forward head;Rounded shoulders (06/03/241405) Standing posture: Forward head;Rounded shoulders (06/03/241405) Safety awareness: The Patient verbalizes insight of current deficits. (06/03/241405) Other Findings Endurance: Fair (06/03/241405) Light touch sensation: LUE;RUE;Intact (06/03/241405) Coordination: LUE;RUE;Intact (06/03/241405) Current Functional Status: Bilateral Upper Extremity Range of Motion: WFL (06/03/241405) Strength Assessment: Deficits noted (06/03/241405) LUE: Shoulder;2-/5;Elbow;3/5;Grasp;3+/5 (06/03/241405) RUE: Shoulder;2-/5;Elbow;3/5;Grasp;3+/5 (06/03/241405) Dressing Upper Body: Minimal Assistance (to simulate) (06/03/241405) Lower Body: Dependent (to keli socks) (06/03/241405) Functional Ambulation Assistive Device: No device (06/03/241405) Distance in feet:: 3 (06/03/241405) Level of Assistance: Minimal Assistance (x2) (06/03/241405) Bed Mobility Supine-Sit: Minimal Assistance (06/03/241405) OT Transfers Sit-Stand: Minimal Assistance (x2) (06/03/241405) Stand-Sit: Minimal Assistance (x2) (06/03/241405) Balance Sit (Static): Fair (06/03/241405) Sit (Dynamic): Fair (06/03/241405) Stand (Static): Poor (06/03/241405) Stand (Dynamic): Poor (06/03/241405) Alarm Status Patient positioned in: Chair (06/03/241405) With: Call ma in reach (alarm not on upon arrival) (06/03/241405) Patient and Family Goals: to get well Patient Education Education Topic: Role of OT;Plan of care goals (06/03/241405) Review of Precautions: Safety;Fall (06/03/241405) Method of Education: Verbalized to patient (06/03/241405) Education Provided to: Patient (06/03/241405) Response to Education: Receptive and agreeable to education (06/03/24 1406) Barriers to learning: None (06/03/24 1406) Preferred learning method: Combination (06/03/24 140) Treatment Provided: Evaluation Moderate Complexity 8 minutes - 14297: Patient was cooperative during treatment session. Moderate complexity evaluation performed and 3-5 activity limitations were identified, including ADL deficit, functional mobility deficit, bed mobility deficit, decreased strength, decreased endurance, and impaired balance. Minimal or moderate modification of the functional taskwas necessary to complete the evaluation. Assessment: Pt is a 29 yr old female, admitted to the hospital on 06/02 for undifferentiated inflammatory polyarthritis. Pt lives with significant other, and completed ADL tasks and functional mobility with independence. Pt reports requiring assistance with ADL tasks in the last week. Pt seen for OT evaluation on this date. Pt completed bed mobility of supine to sit with min A for trunk. Pt completed simulated UB dressing with min A due to decreased strength, and LB dressing with dependency dueto decreased functional reach. Pt completed sit to stand transfer from bed, and functional mobilityfrom bed to chair of 3 feet with min A x 2 for safety and steadying. Pt deferred further mobility at this time due to wanting to eat lunch. Pt with needs met. Pt presents with deficits in strength, balance, endurance, functional transfers, functional mobility, and ADL task completion. Pt would benefit from continued OT to work on strength and endurance in order to maximize independence with self care ADL tasks. Please consider post-acute care services which may include home health, skilled nursi ng, outpatient therapy or inpatient rehabilitation. The level of care will be determined in collaboration with patient, family/caregiver and care team members. Deficits Requiring O.T. Treatment: Deficits requiring O.T. treatment needs: ADL/self-care;Balance;Endurance;Functional mobility;Safety;Upper extremity strength;Weakness (06/03/24 140) Goals: ADLs Demonstrate grooming tasks with independence Demonstrate UB dressing task with independence Demonstrate LB dressing task with mod A Demonstrate UB bathing task with independence Demonstrate LB bathing task with mod A Demonstrate toilet task with contact guard Bed Mobility Demonstrate rolling L and R with supervision Demonstrate supine to sit with supervision Demonstrate sit to supine with supervision Functional Transfers Demonstrate sit to stand transfer with supervision Demonstrate bed to chair transfer with supervision Demonstrate transfers onto/off of commode with supervision Functional Mobility Demonstrate functional mobility for ADL task completion with supervision using least restrictive device Balance Improve static/dynamic seated balance for ADL task completion to a grading of good Improve static/dynamic standing balance for ADL task completion to a grading of fair Strength Improve bilateral UE strength by 1/2 grade Goal Time Frame: 10 visits Treatment Plan: Safety, Bed mobility training, Functional Ambulation, Transfer training, Upper extremity strengthening, Balance activities, ADL training, and Endurance Anticipated Frequency (on eval): 1 to 3 times per week (06/03/241405) AM-PAC Help From Another Person Eating Meals: A little (06/03/241405) Help From Another Person Taking Care of Personal Grooming: A little (06/03/241405) Help From Another Person To Put On/Take Off Upper Body Clothing: A little (06/03/241405) Help From Another Person To Put On/Take Off Lower Body Clothing: Total (06/03/241405) Help From Another Person Toileting: A lot (06/03/241405) Help From Another Person Bathing: A lot (06/03/241405) OT AM-PAC Score: 14 (06/03/241405) OT AM-PAC t-Scale Score: 33.39 (06/03/241405) HLM (Highest Level of Mobility) Goal: Level 4 move to chair/commode (06/03/241405) A portion of this AM-PAC assessment not scored based on functional assessment; rather clinical decision making utilized based on current findings and/or prior level of function. Please refer to future AM-PAC calculations of functional ability as they become available. * Aleksandra Knutson MD - 06/03/2024 12:41 PM ESTAssociated Order(s): HEMATOLOGY CONSULT IP Hematology New Consult Note PATIENT NAME: Bhavin Wilson DATE OF SERVICE: 06/03/2024 [place] [facility] [place] Primary Care Physician: Payal Myers MD Consulting Physician: Linwood Carrillo DO Reason for Consult: concern for HLH vs Still's disease HISTORY OF PRESENT ILLNESS Bhavin Wilson is a 29 year old female with history of seronegative inflammatory arthritis, migraines, generalized anxiety disorder who we are seeing in consultation for further evaluation for concern of HLH and possible bone marrow biopsy. She initially presented to [facility] ED with ongoing joint pain, intermittent fever and headaches for the past few weeks. She was previously admitted to [facility] on 05/20 for similar symptoms of fever, chills, joint pain and weakness, admitted for SIRS criteria and infectious workup. and was treated for sepsis without any clear etiology. On hospital discharge follow up with her PCP, they noted persistent fever of 101.1, tachycardia to 130s, and with elevated ferritin, LDH and mild elevation in transaminase levels, were concerned for some other underlyingdisease like Still's and had her referred to the ER. On my evaluation, she reports symptoms worsening after starting adalimumab in April which is whatprompted [facility] visit. She reports persistent joint ache, fever, fatigue since that time. She denies bleeding or bruising, night sweats, chills, does notes previous axillary lymphadenopathy. No clear episode of flu-like illness. She had a rash on the RUE which is resolving now. She lives in [facility] but does not go outside much, no recent travel, denies history of tick-borne illness or STI. No history of vesicular rash to suggest HSV. On the current visit, hemoglobin 8.5, WBC 3.14, platelets 321, haptoglobin 496, LD 577, ferritin 9000, B12 of 331, hypoproliferative retic index, AST 137, ALT 42, KAYCEE negative, D-dimer 2.7, fibrinogen 250, bilirubin 0.3, immunoglobulin levels normal, TSH 10.6, T4 0.8 (low). CRP 67, ESR 29, C3 70 (low), C4 17. Blood cultures collected, hepatitis serologies negative, HIV negative, EBV capsid IgG positive, Lyme screen negative. CT abdomen and pelvis showed prominent retropharyngeal and iliac chainlymph nodes. She had a leukemia lymphoma flow panel done on FNA of a right axillary lymph node and 02/12/2024 without evidence of a monotypic lymphoid population. She reports family history is notable for biliary cancer in her mother and lung cancer in her father. She is unaware of any history of autoimmune disease or hematologic malignancy. She had an unremarkable childhood without significant illness. Visit Diagnoses: ICD-10-CM 1. Joint pain M25.50 2. Chest pain R07.9 No past medical history on file. Surgical History: Past Surgical History: Procedure Laterality Date IR BIOPSY 02/19/2024 Medications: Acetaminophen (Tylenol) tab 650 mg Anakinra (Kineret) inj 200 mg FLUoxetine (PROzac) cap 20 mg [START ON 06/04/2024] levothyroxine (Levoxyl) tab 88 mcg methylPREDNISolone sodium succ (SOLU-Medrol) inj 55 mg omeprazole (PriLOSEC) cap 40 mg potassium chloride ER tab 40 mEq [START ON 06/04/2024] Enoxaparin (Lovenox) inj 40 mg Polyethylene Glycol 3350 (Miralax) oral powder 17 g senna-docusate (Senokot-S) 1 Tablet sodium chloride 0.9 % flush/inj 3 mL SUMAtriptan (Imitrex) tab 12.5 mg topiramate (topAMAX) tab 75 mg Allergies: Sulfasalazine Social History: Social History Socioeconomic History Marital status: Single Tobacco Use Smoking status: Never Smokeless tobacco: Never Vaping Use Vaping status: Never Used Substance and Sexual Activity Alcohol use: Yes Comment: occasionaly Drug use: Never Social Needs Financial Resource Strain: Low Risk (02/28/2024) Financial Resource Strain Do you have any trouble paying for your medications, or do you think you might in the future? (Adult - for ages 18 years and over): No Food Insecurity: No Food Insecurity (06/02/2024) Food Insecurity Do you need food for this week? (Adult - for ages 18 years and over): No Transportation Needs: No Transportation Needs (06/02/2024) Transportation Needs Has lack of transportation kept [...] and over): Never Housing Stability: Low Risk (06/02/2024) Housing Stability Do you currently live in a skilled nursing or have no steady place to sleep at night? (Adult - for ages 18 years and over): No Are you homeless or worried that you might be in the future? (Adult - for ages 18 years and over): No Family History: family history includes Anemia in her mother; Cancer in her grandmother (maternal) and mother; Heart Disorder in her father and grandfather (paternal); Lung cancer in her father; Osteoarthritis in her father; Psoriasis in her father and sister; raynauds in her sister. PMH, PSH, Allergies, Social history, Family history reviewed. Review of Systems Constitutional: Positive for fatigue and fever. Negative for chills, diaphoresis and unexpected weight change. HENT: Negative for lump/mass. Eyes: Positive for eye problems. Negative for icterus. Respiratory: Negative for chest tightness, cough, hemoptysis and shortness of breath. Cardiovascular: Negative for chest pain. Gastrointestinal: Negative for abdominal pain, blood in stool, diarrhea and nausea. Genitourinary: Negative for dysuria. Musculoskeletal: Positive for arthralgias and myalgias. Skin: Positive for rash. Neurological: Positive for dizziness and headaches. Hematological: Negative for adenopathy. Does not bruise/bleed easily. Objective : Blood pressure 98/53, pulse 108, temperature 37.3 C (99.1 F), temperature source Tympanic, resp. rate 14, height 1.626 m (5' 4"), weight 55.9 kg (123 lb 4.8 oz), SpO2 100%. Intake/Output Summary (Last 24 hours) at 06/03/2024 1241 Last data filed at 06/03/2024 0648 Gross per 24 hour Intake 1373.62 ml Output 500 ml Net 873.62 ml Physical Exam Constitutional: General: She is not in acute distress. Comments: Fatigued-appearing HENT: Head: Normocephalic. Mouth/Throat: Mouth: Mucous membranes are moist. Pharynx: Oropharynx is clear. Eyes: General: No scleral icterus. Extraocular Movements: Extraocular movements intact. Pupils: Pupils are equal, round, and reactive to light. Neck: Comments: No axillary adenopathy Cardiovascular: Rate and Rhythm: Regular rhythm. Tachycardia present. Pulses: Normal pulses. Heart sounds: Normal heart sounds. Pulmonary: Effort: Pulmonary effort is normal. Breath sounds: Normal breath sounds. Abdominal: General: Abdomen is flat. Bowel sounds are normal. Palpations: Abdomen is soft. Musculoskeletal: General: No swelling. Cervical back: Normal range of motion. Comments: Bilateral 1+ lower extremity edema Lymphadenopathy: Cervical: No cervical adenopathy. Skin: General: Skin is warm and dry. Coloration: Skin is not jaundiced. Findings: No bruising. Comments: Resolving right upper extremity rash Neurological: General: No focal deficit present. Mental Status: She is alert and oriented to person, place, and time. Mental status is at baseline. Test Results: reviewed. Lab Results Component Value Date/Time WBC 4.46 06/03/2024 05:57 AM WBC 4.32 06/02/2024 02:31 PM WBC, URINE - [facility] 3-5 (A) 06/02/2024 11:07 PM Lab Results Component Value Date/Time HGB 8.5 (L) 06/03/2024 05:57 AM HGB 8.7 (L) 06/02/2024 02:31 PM HGB 13.3 09/07/2019 12:00 AM Lab Results Component Value Date/Time PLT 321 06/03/2024 05:57 AM PLT 362 06/02/2024 02:31 PM No components found for: "ABS. NEUTS" Lab Results Component Value Date/Time CREATININE - [facility] 0.5 06/03/2024 05:57 AM CREATININE - [facility] 0.5 06/02/2024 02:31 PM CREATININE, RANDOM URINE - [facility] 85 06/02/2024 11:07 PM Assessment/Recommendations: Bhavin Wilson is a 29 year old female with history of seronegative inflammatory arthritis, whowe are seeing in consultation for further evaluation of fevers concern for HLH/MAS. 1. Fever, inflammatory syndrome - concern for HLH vs MAS Presentation with cyclical fevers, persistent arthralgias and fatigue with notable lab findings of anemia of inflammation, markedly elevated ferritin and inflammatory markers suggestive some underlying inflammatory syndrome. Differential from Rheumatology evaluation includes Still's disease with HLH versus MS, SLE. So far infectious workup including blood cultures, hepatitis serologies, HIV, EBV has been unremarkable (note positive EBV capsid IgG). No localizing signs or symptoms to suggest infection. Besides fever no constitutional symptoms or cytopenias to suggest an underlying hematologic m alignancy. We reviewed peripheral smear which was notable for scattered ovalocytes and anisopoikilocytosis (varied size and shape of red blood cells), lymphopenia but otherwise unremarkable with no abnormal appearing white blood cells. Regarding triggers for HLH, an underlying autoimmune disease orgenetic abnormality would be the most likely culprits based on workup so far. Overall with only cytopenia being anemia of chronic disease, benign appearing peripheral smear, andlack of multiorgan dysfunction would not highly suspect HLH. If using H score to risk stratify, shehas 133 points for ferritin, triglyceride, AST (9-16% chance of a hemophagocytic syndrome). This isnot specific for HLH and may be seen in other inflammatory syndromes. Discussed with Rheumatology for concern for an evolving MAS/HLH and would like bone marrow biopsy if possible for diagnostics andfurther management. From the hematology perspective he will be reasonable to definitively exclude hematologic malignancy or infection infiltrating the bone marrow with a bone marrow biopsy, and agree that it may help with diagnosis of HLH. Discussed with the patient and she was agreeable. Plan: - plan for bedside bone marrow biopsy tomorrow, no need to be NPO, consent in chart - agree with soluble IL2 receptor and CXCL 9 for diagnosis - steroids and and anakinra per Rheumatology - we will continue to follow The patient is in agreement with the plan and all questions were answered. Patient was seen and discussed with attending Dr. De Jesus. Aleksandra Knutson MD Hematology Oncology fellow, PGY4 [facility] Cosigned by Jono De Jesus MD at 06/04/2024 10:44 PM EST Associated attestation - Jono De Jesus MD - 06/04/2024 10:44 PM EST I saw and evaluated the patient 06/04/24. I have reviewed the resident/fellow physician note and agree. * Tiffanie Fisher MD - 06/03/2024 9:03 AM ESTAssociated Order(s): RHEUMATOLOGY CONSULT IP CONSULT - [place] [facility] [id number] Name: Bhavin Wilson [place] [facility] [place] Date: 06/03/2024 Time: 9:05 AM REQUESTING SERVICE: General Internal Medicine REASON FOR CONSULT: "transfer from [facility] for [facility] with joint pain and fever, concern for ?Still's disease" HISTORY OF PRESENT ILLNESS: Bhavin is a 29-year-old female with a medical hx of Migraines, seronegative inflammatory arthritis who is being transferred from [facility] to [facility] for further evaluation. She has had ongoing joint pain, intermittent fever, and headaches for the past 2-3 weeks.She was previously admitted at [facility] on 05/20 for similar symptoms, and underwent sepsis evaluation, for which no etiology was noted. Following discharge from [facility], she had an OP visit with her PCP who noted elevated ferritin, LDH, and mild elevation in transaminase levels, he did express concern for some other underlying disease like Still's and had her referred to the ER. She reports ongoing joint pain/stiffness, especially in her hands, knees, and ankles, which has been ongoing for about the past year but worsened within the last few weeks with associated fevers, myalgias, and fatigue.Of note, she reports that she has intermittent fevers for the past few months. Reports difficulty making a fist/trouble grasping. She was febrile to 102.7 overnight. Denies current headache, sores in the mouth or nose, shortness of breath, cough, chest pain, palpitations, abdominal pain, nausea/vomiting, numbness/tingling of extremities. 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 Vang/Michelle his [employer] at [place], was previously triedon Cimzia in February for management of her arthritis however developed a rash which was thought to be drug related, hence Cimzia was stopped in March. Shortly after this, was commenced on adalimumab bio similar in Apr, took only 2 doses and developed chills/ worsening headache/ palpitations for which she was admitted, medication was stopped following symptoms; ? Exact etiology. MUSCULOSKELETAL ROS: . Abnormal: joint pain and joint stiffness OTHER ROS: . Constitutional: fatigue, fevers, and sweats . Head headaches . Skin: rash All other ROS negative. ALLERGIES: Sulfasalazine PAST MEDICAL HISTORY: No past medical history on file. PAST SURGICAL HISTORY: Past Surgical History: Procedure Laterality Date IR BIOPSY 02/19/2024 FAMILY HISTORY: positive for father and sister with psoriasis SOCIAL HISTORY: Social History Tobacco Use Smoking status: Never Smokeless tobacco: Never Vaping Use Vaping status: Never Used Substance Use Topics Alcohol use: Yes Comment: occasionaly Drug use: Never PHYSICAL EXAM: Most Recent Vital Signs: BP: 95 mmHg/53 mmHg (06/03/24618) Pulse: 89 (06/03/24618) Resp: 18 (06/03/24618) Temp: 36.28 C (06/03/24618) Temp Summary: Temp Min: 36.3 C (97.3 F) Max: 39.3 C (102.7 F) SpO2: 89 % (06/03/24618) O2 flow rate: Supplemental O2 Delivery: Room Air, None (06/03/24618) Vital Signs Last 24 Hours: Temperature: Most Recent Temperature Av.8 C Min: 36.28 C Max: 39.28 C Pulse: Pulse Av.2 Min: 80 Max: 119 Respirations: Resp Av.4 Min: 16 Max: 18 SpO2: SpO2 Av.5 % Min: 89 % Max: 100 % Systolic BP: Most Recent Systolic BP Av.1 mmHg Min: 88 mmHg Max: 114 mmHg General: alert and healthy Heart: regular rate & rhythm, no murmur, and no gallops Lungs: clear to auscultation , no rales, wheezes or rhonchi Extremities: no edema, no clubbing, no cyanosis Skin: skin color, texture, turgor are normal, positive for: omero rash on right arm, more prominenton flexor surface Musculoskeletal Exam: . Synovitis: none . Range of Motion: decreased finger flexion . Kiln Puller strength: both 4/5 LABS: Labs reviewed as indicated below: Lab results within last 7 days (see chart for full results) Units 06/03/24 0557 06/01/24 1136 Complement C3 mg/dL 70* -- Complement C4 mg/dL 17 -- CRP (Inflammatory Marker) mg/L 67* 65* ESR mm/hour 29* 47* Lab results within last 7 days (see chart for full results) Units 06/02/24 2307 Color, Urine Yellow Clarity, Urine Clear Glucose, Urine mg/dL Negative Bilirubin, Urine Negative Specific [place], Urine 1.050* Blood, Urine Small* pH, Urine Units 6.5 Protein, Urine mg/dL 30* Protein, Random Urine mg/dL 53 Urobilinogen, Urine mg/dL Normal Nitrite, Urine Negative Esterase, Urine Negative RBC, Urine /HPF 10-19* WBC, Urine /HPF 3-5* Bacteria, Urine /HPF 51-100* Creatinine, Random Urine mg/dL 85 Coags Lab results within last 7 days (see chart for full results) Units 06/03/24 0557 Prothrombin Time seconds 13.6 aPTT seconds 40* INR 1.0 D-Dimer ug/mL FEU 2.70* Fibrinogen mg/dL 389 Triglycerides Lab results within last 7 days (see chart for full results) Units 06/03/24 0557 06/01/24 1136 Triglycerides mg/dL 352* 456* CBC Lab results within last 7 days (see chart for full results) Units 06/03/24 0557 06/02/24 1431 06/01/24 1136 WBC K/uL 4.46 4.32 3.53* HGB g/dL 8.5* 8.7* 10.2* HCT % 26.6* 27.3* 31.9* PLT K/uL 321 362 438* BMP Lab results within last 7 days (see chart for full results) Units 06/03/24 0557 06/02/24 1431 06/01/24 1136 SODIUM mmol/L 134* 130* 135 POTASSIUM mmol/L 3.4* 4.4 4.5 CHLORIDE mmol/L 104 97* 99 CO2 mmol/L 21* 22 25 BUN mg/dL 6 10 10 CREATININE mg/dL 0.5 0.5 0.5 GLUCOSE mg/dL 95 89 99 IMAGING: CT ABD/PELVIS W IV CONTRAST - WO ORAL CONTRAST Result Date: 06/02/2024 IMPRESSION: 1. Borderline enlarged retroperitoneal and iliac chain lymph nodes. Upper limits of normal-sized spleen. 2. Otherwise, incidental findings as above. COMMENTS: Consistent with the AmericanCollege of Radiology's Incidental Findings Committee white paper (J Am Nayeli Radiol 2018): Any incidental renal lesion less than 1 cm or classified as too small to characterize, or any incidental cystic renal lesion characterized as simple-appearing, is likely benign. No follow-up imaging is recommended for these lesions per consensus recommendations based on imaging criteria. THIS DOCUMENT HAS BEEN ELECTRONICALLY SIGNED BY GLENN ULLOA MD RHEUMATOLOGY CONSULTATION IMPRESSION: 29 year old female with active hospital problems as listed below: Principal Problem: Undifferentiated inflammatory polyarthritis (HCC) (POA: Yes) Active Problems: Anemia of chronic disease (POA: Yes) POA = Present On Admission Bhavin Wilson is a 29 year old female with a history of migraines and seronegative inflammatory arthritis who presents with joint pain, fevers, and fatigue with elevated ferritin, LDH and mild elevation in transaminase levels. On presentation she was subsequently found to have elevated triglycerides, haptoglobin, ESR, CRP and protein/cr ratio, as well as decreased C3. From the Rheumatology standpoint, we will rule out possible etiologies, differential diagnosis would include Still's disease with HLH/MAS, SLE also in the differential with rash/arthralgia/synovitis and abnormal labs, doubta systemic vasculitis/DM or sweet syndrome. Agree with infectious w/u to rule out infectious etiologies. At this time will treat for Stills with possible MAS with solumedrol and Anakinra. Will continue to closely monitor labs as below. RHEUMATOLOGY CONSULTATION SUGGESTION(S): Start IV solumedrol 1mg/kg daily Start subcutaneous Anakinra 200 mg daily Follow up on DESTINY ; EIA screen with reflexive antibodies, Soluble Il- 2 receptor, (sCD25 or Angelia-2R), CXCL9 Immunoglobulin levels; IgG, A and M Continue to trend daily CBC with diff CMP ESR and CRP Coags D-dimer Liver enzymes Ferritin LDH Recommend Hematology consult for possible HLH/MAS with possible bone marrow biopsy Cosigned by Polly Mojica MD at 06/03/2024 1:12 PM EST Associated attestation - Polly Mojica MD - 06/03/2024 1:12 PM EST I saw and evaluated the patient today. I have reviewed the resident/fellow physician note and agree. Concern for AOSD with evolving MAS/secondary HLH. Agree with glucocorticoids and initiation of anakinra and hematology evaluation. Will continue to follow closely while in the hospital. Discussed with hospital medicine team. documented in this encounter Nursing Notes * Brenda Rangel RN - 06/10/2024 11:16 PM EST VAT- Assessed pt bilaterally with u/s and only vein that would be able to be accessed would be the right a/c. That is where labs will be going and it it is not optimal for piv. I attempted one piv inthe right lower f/a area with a 24g and it blew when flushed. She is very limited and soul be considered for more reliable access. Staff aware. * Karla Pike RN - 06/06/2024 10:14 PM EST Dual Licensed Skin Assessment completed by Bisi Garcia RN and Karla Pike RN. The patient is/has a N/A Skin Breakdown (includes non blanchable erythema): No * Luisa Pruett LPN - 06/04/2024 9:41 AM EST Patient complained of severe chest and mid abd pain Dr. Flex Nunez aware. Patients VS are stable and EKG obtained. Will continue to assess patient as needed for ongoing chest pain. See additional orders from provider * Julisa Mesa RN - 06/04/2024 5:35 AM EST Pt c/o of sharp epigastric pain with inspiration and movement. VSS. EKG obtained and submitted. Denies SOB; AAOX4; answering questions appropriately. Dr. Youssef made aware of same. Offers no additionalconcerns or questions at this current time. Safety measures in place. * Ashley Monroy RN - 06/02/2024 8:33 PM EST Dual Licensed Skin Assessment completed by Audie Monroy RN and Gutierrez Baldwin RN. The patient is/has a N/A Skin Breakdown (includes non blanchable erythema): No documented in this encounter Miscellaneous Notes * Care Plan - Katey Thomas RN - 06/13/2024 12:02 PM EST Clinical Goal(s): Pt will remain free from falls this shift (06/13/24 0700) Possible barriers to meeting goal(s)/advancing plan of care: pt condition Stability of the patient: Moderately stable - low risk of patient condition declining or worsening Summary regarding today's goal(s): Met: pt remained free from falls this shift Recommendations: continue fall risk precautions * Progress Notes - Non-Billable - Kourtney Noonan MD - 06/13/2024 9:25 AM EST Remote chart review - patient not seen 29 yo with undifferentiated inflammatory polyarthritis, severe hypocalcemia and pancreatitis. Vit D <6, had ileus. Hypocalcemia is primarily due to vit D def, and poor absorption. Current Rx: Calcitriol 0.5 mcg QAM and 1 mcg HS Calcium citrate 315 mg 2 tabs TID Latest Reference Range & Units 06/11/24 04:35 06/11/24 09:01 06/11/24 15:14 06/11/24 22:45 06/12/24 05:03 06/13/24 03:40 SODIUM 135 - 146 mmol/L 136 134 (L) 139 POTASSIUM 3.5 - 5.1 mmol/L 4.1 3.9 4.3 CHLORIDE 98 - 107 mmol/L 104 101 101 CO2 22 - 32 mmol/L 23 24 27 BUN 6 - 20 mg/dL 6 6 7 CREATININE 0.5 - 1.0 mg/dL 0.3 (L) 0.3 (L) 0.3 (L) EGFR >=60 mL/min >90 >90 >90 ANION GAP 7 - 15 mmol/L 9 9 11 GLUCOSE 70 - 120 mg/dL 77 69 (L) 93 CALCIUM 8.4 - 10.2 mg/dL 7.1 (L) 7.6 (L) 7.7 (L) Calcium, Ionized 1.13 - 1.32 mmol/L 1.08 (L) 1.09 (L) 1.12 (L) 1.13 Magnesium 1.5 - 2.6 mg/dL 2.1 2.0 1.9 Phosphorus 2.5 - 4.8 mg/dL 1.7 (L) 1.8 (L) 3.5 Latest Reference Range & Units 06/06/24 05:12 PTH 15 - 65 pg/mL 74 (H) PTH Rpt ! 25-Hydroxy Vitamin D >19 ng/mL <6 (L) Plan: Continue calcitriol 0.5 mcg QAM and 1 mcg HS Continue vit D 50k units weekly for 3 months Continue calcium citrate 630 mg TID Check Ca, albumin and ionized Ca Q12H for now Discharge recs: calcitriol 0.5 mcg QAM and 1 mcg HS vit D 50k units weekly for 3 months calcium citrate 630 mg TID Obtain CMP every week after discharge to monitor calcium and adjust calcitriol. She will likely need to reduce or possibly discontinue calcitriol once vitamin-D is improving. She may develop hypercalcemia if this is not done. Please ensure patient has proper follow-up with PCP in 1 week to follow up on chemistry. I would suggest to send a message or contact PCP directly to review the plan. TT endo with any questions or concerns * Care Plan - Katey Valenzuela RN - 06/13/2024 4:32 AM EST Clinical Goal(s): Patient will remain free from falls and injuries (06/12/24 2300) Possible barriers to meeting goal(s)/advancing plan of care: Patient condition Stability of the patient: Moderately stable - low risk of patient condition declining or worsening Summary regarding today's goal(s): Met: Recommendations: Will continue implementing fall risk precautions. * Ancillary Progress Note - Moe Hong RN - 06/12/2024 12:17 PM EST CARE MANAGEMENT - ADULT TRANSITION [place] [facility] [place] [address] Name: Bhavin Wilson [place] [facility] [place] Date: 06/12/2024 Time: 12:17 PM Risk Stratification Readmission Risk Score: 21.02 (06/12/24 1200) AM-PAC Score With Stairs : 18 (06/11/24 1405) Caregiver Information Emergency Contacts None on File Other Contacts Name Relation Home Work Mobile Abigail Wilson Mother [phone] Transition of Care Checklist Transition of Care Checklist (aka Readmission Risk Score) Discharge Disposition: Home (06/03/241222) Home or Home w/Home Health: Moderate (12-17%) (06/03/241222) Narrative: Pt discussed in IDT Rounds today. Discussed with Dr Mandel this morning. Not medically ready. Possible discharge Wednesday 06/13 pending progress. No anticipated discharge needs. Please contact CM with any further concerns. Anticipated Transportation at Discharge: family Patient/Family Expectations: home Transition Planning Transition Planning Transition Plan/Considerations: Needs uncertain at this time - Continue monitoring for needs;Discussed at Interdisciplinary Team / Boost Rounds (06/03/241222) Insurance Considerations: Precertification needed for Post-Acute Care;Therapy documentation needed for precert request (06/03/241222) Referral to Community Agency : N/A (06/03/241222) Post-Acute Care needs identified and Referrals Completed: N/A (06/03/241222) Additional Considerations: none Care Management will continue to monitor and assist with discharge planning needs * Care Plan - Starla Pierson LPN - 06/12/2024 6:08 AM EST Clinical Goal(s): Patient will remain free from falls and injuries this shift. (06/11/24 1900) Possible barriers to meeting goal(s)/advancing plan of care: Patient condition. Stability of the patient: Moderately stable - low risk of patient condition declining or worsening Summary regarding today's goal(s): Met: Patient remained free from falls and injuries this shift. Recommendations: Continue safety precautions. * Care Plan - Monisha Walker RN - 06/11/2024 7:01 PM EST Clinical Goal(s): Patient remained free from falls or injury this shift. (06/11/24 1500) Possible barriers to meeting goal(s)/advancing plan of care: patient's conditions. Stability of the patient: Moderately stable - low risk of patient condition declining or worsening Summary regarding today's goal(s): Met: Patient remained free from falls and injury during this shift. Recommendations: fall precautions. * Ancillary Progress Note - Obdulio Bhakta PTA - 06/11/2024 2:05 PM EST PROGRESS NOTE - Physical Therapy [facility] [place] [address] Name: Bhavin Wilson [place] [facility] [place] Date: 06/11/2024 Time: 2:05 PM Bhavin Wilson is a/an 29 year old female. Patient Status: Inpatient Insurance: Payor: [facility] Plan: [employer] H[employer] EXTRA [id number] Product Type: *No Product type* Patient Seen: at bedside, nursing cleared patient for therapy Patient Identified By: Name, ID Band and Date Diagnosis: undifferentiated inflammatory polyarthritis (06/11/24 140) Status of treatment: Treatment completed (06/11/24 140) Orders: PT evaluation and treatment (06/11/24 140) Weight Bearing Status: Weight bearing as tolerated (06/11/24 140) Precautions: Falls;NG tube (06/11/241404) Total Treatment Time--free text: 10 (06/11/241404) Subjective: "It hurts everywhere." Pain: Patient has complaints of pain. Pain located "All of my joints and my belly." 02/28 Staff Notified P.T. Bed Mobility Supine-Sit: Minimal Assistance (06/03/241405) Transfers Sit-Stand: Contact Guard (06/11/241404) Stand-Sit: Supervision (06/11/241404) Ambulation: Distance ambulated (feet): 85 Assistive Device: Rolling walker Assist: Supervision Balance Sit (Static): Fair (06/11/241404) Sit (Dynamic): Fair (06/11/241404) Stand (Static): Fair (06/11/241404) Stand (Dynamic): Fair (06/11/241404) Patient and or Family Goal(s): to get well and to return home Topic of Education: Safety with mobility and Fall prevention Method of Education: Verbal discussion and explanation provided to patient: verbalized understanding and or agreement of this information Treatment Provided: Therapeutic Activities 4 minutes: bed mobility training transfer training Gait Training 6 minutes: gait training with rolling walker Alarm Status Patient positioned in: (bathroom) (06/11/241404) With: Call ma in reach (nursing aware) (06/11/241404) Patient Education Review of Precautions: Safety;Fall (06/11/241404) Safety Awareness: Patient verbalizes insight of current deficits;Patient can communicate basic needs (06/11/241404) Preferred learning method: Combination (06/11/241404) Barriers to learning: Medical Status (06/11/241404) Method of Education: Verbalized to patient (06/11/241404) Assessment: Patient found supine in bed, awake and alert on arrival. Patient reported 8/10 joint and abdominal pain, but was willing to mobilize. Patient required Minimal Assistance for supine to sittransition, but she was able to sit unsupported. Patient stood with contact guard Assistance beforeambulating 85' using a rolling Walker with Supervision (slow gait speed). Once patient returned to her room, she ambulated an additional 15' into her bathroom without an assistive device with ContactGuard Assistance. Patient was left in bathroom with call ma in hand and primary nurse present andaware. Please consider home with post-acute care services which may include home health or outpatient therapy. The level of care will be determined in collaboration with the patient, family/caregiverand care team members. Deficits requiring P.T. treatment needs: Safety;Mobility;Balance;Weakness;Endurance;Lower extremitystrength (06/11/24 1405) Equipment needs: Rolling walker (06/08/24 1115) Plan: Continue with current treatment plan established on evaluation. AM PAC Score with Stairs: 18. AM-PAC assessment not scored at this time. Please refer to future AM-PAC calculations of functional mobility as they become available. * Progress Notes - Non-Billable - Kourtney Noonan MD - 06/11/2024 12:23 PM EST Remote chart review - patient not seen 29 yo with undifferentiated inflammatory polyarthritis, severe hypocalcemia and pancreatitis. Vit D <6, had ileus. Hypocalcemia is primarily due to vit D def, and poor absorption. Current Rx: Calcitriol 0.5 mcg BID Calcium citrate 315 mg 2 tabs TID Vit D was not given Latest Reference Range & Units Most Recent 06/09/24 05:01 06/09/24 07:59 06/09/24 11:43 06/09/24 15:28 06/10/24 00:07 06/10/24 04:01 06/10/24 08:58 06/10/24 15:22 06/10/24 23:54 06/11/24 04:35 06/11/24 09:01 EGFR >=60 mL/min >90 06/11/24 04:35 >90 >90 >90 CALCIUM 8.4 - 10.2 mg/dL 7.1 (L) 06/11/24 04:35 6.7 (L) 6.5 (L) 7.1 (L) Calcium, Ionized 1.13 - 1.32 mmol/L 1.08 (L) 06/11/24 09:01 0.97 (L) 0.91 (L) 1.05 (L) 1.04 (L) 0.98 (L) 1.05 (L) 1.00 (L) 1.08 (L) 1.08 (L) PTH 15 - 65 pg/mL 74 (H) 06/06/24 05:12 PTH Rpt ! 06/06/24 05:12 1,25-DIHYDROXY VITAMIN D Rpt (IP) 06/07/24 05:54 25-Hydroxy Vitamin D >19 ng/mL <6 (L) 06/06/24 05:12 Plan: Increase calcitriol to 0.5 mcg QAM and 1 mcg HS Start vit D 50k units weekly for 3 months, give first dose today Start vit D 2000 IU daily Continue calcium citrate 630 mg TID Check Ca, albumin and ionized Ca Q12H for now TT endo with any questions or concerns * Ancillary Progress Note - Moe Hong RN - 06/11/2024 10:26 AM EST CARE MANAGEMENT - [place] [facility] [place] [address] Name: Bhavin Wilson [place] [facility] [place] [facility] Date: 06/11/2024 Time: 10:26 AM Risk Stratification Readmission Risk Score: 19.47 (06/11/24 0801) AM-PAC Score With Stairs : 19 (06/11/24 0936) Caregiver Information Emergency Contacts None on File Other Contacts Name Relation Home Work Mobile Abigail Wilson Mother [phone] Transition of Care Checklist Transition of Care Checklist (aka Readmission Risk Score) Discharge Disposition: Home (06/03/24 1223) Home or Home w/Home Health: Moderate (12-17%) (06/03/24 1223) Narrative: Pt discussed in IDT Rounds today. CM received update from Dr Mandel this morning. Not medically ready. Febrile yesterday. CT scan today. Rheumatology consulted for discharge recommendations. AMPAC= 20 Possible discharge Wednesday 06/13 pending remains afebrile. CM following for arising discharge needs- none anticipated at this time. Please contact CM with any further concerns. Anticipated Transportation at Discharge: family/friend Patient/Family Expectations: home Transition Planning Transition Planning Transition Plan/Considerations: Needs uncertain at this time - Continue monitoring for needs;Discussed at Interdisciplinary Team / Boost Rounds (06/03/24 1223) Insurance Considerations: Precertification needed for Post-Acute Care;Therapy documentation needed for precert request (06/03/24 1223) Referral to Community Agency : N/A (06/03/24 1223) Post-Acute Care needs identified and Referrals Completed: N/A (06/03/24 1223) Additional Considerations: none Care Management will continue to monitor and assist with discharge planning needs * Care Plan - Starla Pierson LPN - 06/11/2024 6:29 AM EST Clinical Goal(s): Patient will remain free from falls and injuries this shift. (06/10/24 1900) Possible barriers to meeting goal(s)/advancing plan of care: Patient condition. Stability of the patient: Moderately stable - low risk of patient condition declining or worsening Summary regarding today's goal(s): Met: Patient remained free from falls and injuries this shift. Recommendations: Continue safety precautions. * Care Plan - Monisha Walker RN - 06/10/2024 6:48 PM EST Clinical Goal(s): Patient will ambulate in the pink today. (06/10/24 0700) Possible barriers to meeting goal(s)/advancing plan of care: Patient's condition, pain. Stability of the patient: Moderately stable - low risk of patient condition declining or worsening Summary regarding today's goal(s): Not Met: Patient was unable to ambulate in pink today. Patient did ambulate in room to bathroom several times today. Recommendations: Continue to encourage patient to ambulate in the pink and at least 3 times a day. * Progress Notes - Non-Billable - Lauryn Balnton MD - 06/10/2024 4:05 PM EST Remote chart review - patient not seen 29 yo with undifferentiated inflammatory polyarthritis, severe hypocalcemia and pancreatitis. Vit D <6, had ileus. Hypocalcemia is primarily due to vit D def, and poor absorption. She was treated with calcium infusion. She was also started on calcitriol and calcium citrate. Component Latest Ref Rng 06/06/2024 06/07/2024 06/08/2024 06/09/2024 06/10/2024 Calcium, Ionized 1.13 - 1.32 mmol/L 0.85 (L) 1.05 (L) 1.04 (L) 1.04 (L) 1.00 (L) Calcium, Ionized 0.81 (L) 1.02 (L) 1.02 (L) 1.05 (L) 1.05 (L) Calcium, Ionized 0.66 (LL) 1.06 (L) 1.02 (L) 0.91 (L) 0.98 (L) Calcium, Ionized 0.72 (LL) 1.10 (L) 1.07 (L) 0.97 (L) Calcium, Ionized 1.07 (L) 1.15 Calcium, Ionized 1.00 (L) 1.15 25-Hydroxy Vitamin D >19 ng/mL <6 (L) PTH 15 - 65 pg/mL 74 (H) Phosphorus 2.5 - 4.8 mg/dL 1.5 (L) 2.3 (L) 2.2 (L) 2.2 (L) 1.7 (L) Legend: (L) Low (LL) Low Panic (H) High Plan Increase calcitriol to 0.5 mcg BID Continue vit D 50k units weekly for 3 months Continue calcium citrate 630 mg TID. Lauryn Blanton MD * Ancillary Progress Note - Moe Hong RN - 06/10/2024 12:12 PM EST CARE MANAGEMENT - ADULT [place]ANSITION [place] [facility] [place] [address] Name: Bhavin Wilson [place] [facility] [place] Date: 06/10/2024 Time: 12:12 PM Risk Stratification Readmission Risk Score: 19.25 (06/10/24 1201) AM-PAC Score With Stairs : 18 (06/09/24 2200) Caregiver Information Emergency Contacts None on File Other Contacts Name Relation Home Work Mobile Abigail Wilson Mother [phone] Transition of Care Checklist Transition of Care Checklist (aka Readmission Risk Score) Discharge Disposition: Home (06/03/24 122) Home or Home w/Home Health: Moderate (12-17%) (06/03/241222) Narrative: Pt discussed in IDT Rounds today. Discussed with Dr Mandel via [employer] this morning. Not medically ready. Trending electrolytes for stability. Advancing diet. Weaning supplemental oxygen need. Pain management an issue per Nursing. IV cefepime and IV vanco currently. S/p Lap Alexa 06/08/2024 [facility]= 18; PT OT evaluation noted. Possible discharge home tomorrow 06/11, pending progress. CM continuing to follow for arising discharge needs. Please contact CM with any further concerns. Anticipated Transportation at Discharge: family/friend Patient/Family Expectations: home Transition Planning Transition Planning Transition Plan/Considerations: Needs uncertain at this time - Continue monitoring for needs;Discussed at Interdisciplinary Team / Boost Rounds (06/03/241222) Insurance Considerations: Precertification needed for Post-Acute Care;Therapy documentation needed for precert request (06/03/241222) Referral to Community Agency : N/A (06/03/24 122) Post-Acute Care needs identified and Referrals Completed: N/A (06/03/24 122) Additional Considerations: none Care Management will continue to monitor and assist with discharge planning needs * Care Plan - Katey Thomas RN - 06/10/2024 2:10 AM EST Clinical Goal(s): Pt will remain free from falls this shift (06/10/24 0300) Possible barriers to meeting goal(s)/advancing plan of care: pt condition Stability of the patient: Moderately stable - low risk of patient condition declining or worsening Summary regarding today's goal(s): Met: pt remained free from falls this shift Recommendations: continue fall risk precautions * Care Plan - Norma Ochoa, ASH - 06/09/2024 6:50 PM EST Clinical Goal(s): Patient will remain free from fall throughout this shift (06/09/24 0700) Possible barriers to meeting goal(s)/advancing plan of care: pt diagnosis Stability of the patient: Moderately stable - low risk of patient condition declining or worsening Summary regarding today's goal(s): Met: pt did not fall or injury self throughout this shift Recommendations: continue fall prevention mgt * Ancillary Progress Note - Gloria Garcia RDN - 06/09/2024 11:00 AM EST CLINICAL NUTRITION ADULT RISK ASSESSMENT [address] [address] Name: Bhavin Wilson [place] [facility] [place] Date: 06/09/2024 Time: 11:00 AM How patient was identified (select 2): date and Name Bhavin Wilson is a 29 year old female being assessed for clinical nutrition risk related to extended LOS Primary diagnosis: Admitted with arthritis, joint pain, pancreatitis, and concern for Still disease Other pertinent information: Pt is currently on clear liquids, NGT has been removed. Pt is looking forward to diet advancement - feels hungry. When on a diet, was eating 0-75% of meals. Reports not eating well for about a month prior to admission. Does feel that appetite is coming back. Pt does notconsume or take supplements like Boost/Ensure or herbal supplements. Does take vitamin B12. Boost is ordered for pt currently, but not receiving due to clear liquid status. Pt is open to boost breezeuntil diet is advanced further. No reports of N/V. Does report abdominal distention, but no reportsof pain. Had a watery bowel movement today per pt report. No c/o chewing or swallowing difficulties. Reports no weight loss prior to admission. Weight has increased during admission - likely related to fluid (noted changes in edema during admission). Will monitor further diet advancement and adjustsupplements as able. Anthropometrics Measurements Admission weight (for dietitians): 55.3 kg Height: 162.6 cm (5' 4") (06/02/241939) Weight: 60.3 kg (133 lb) (06/09/2435) BMI: 20.93 (06/02/241939) Usual Body Weight or EDW for Dialysis Patients: 53-55 kg per pt, 55-58 kg usually per EHR Diet: Clear liquid Previously followed diet: Regular Food Allergies/Intolerances: No known Oral Nutrition Supplement (ONS): Boost (1 cup provides 240 calories, 10 grams protein, 37 grams carbohydrate) TID (not receiving dueto clear liquid status) Pertinent medications/vitamins/minerals/supplements: calcitriol, calcium chloride, levoxyl, omeprazole, solu-medrol, vancomycin RISK FACTORS: Adult Energy Intake: Less than 75% of estimated energy requirement for greater than 7 days (moderate, acute illness). Interpretation of Weight Change: Weight gain during admission - likely associated with fluid changes given edema status Skin: Intact NUTRITION RISK CATEGORY: Nutrition Risk Category: Low/Moderate (0-1 factors) Clinical Nutrition Recommendations: Diet: Advance diet when clinically feasible If unable to advance within the next 3-5 days, may need to consider parenteral nutrition. NUTRITION INTERVENTION/PLAN: Orders: Oral nutrition supplement adjusted While on clear liquids, adding Boost Breeze (1 cup provides 250 calories, 9 grams protein, 54 gramscarbohydrate) TID Will adjust when diet is advanced further Will follow and adjust nutritional plan as medical condition requires. Please contact for change(s)in patient condition requiring earlier intervention. Gloria Garcia RDN, PAULON Clinical Dietitian Extension: [phone] [employer] * Ancillary Progress Note - Viv Collado COTA - 06/09/2024 10:52 AM EST PROGRESS NOTE - Occupational Therapy [address] [address] Name: Bhavin Wilson [place] [facility] [place] Date: 06/09/2024 Time: 10:52 AM Bhavin Wilson is a 29 year old female. Patient Status: Inpatient Insurance: Payor: [facility] Plan: [employer] H[employer] EXTRA HM-E3 Product Type: *No Product type* Patient Seen: at bedside, nursing cleared patient for therapy Patient Identified By: Name, ID Band and Date Diagnosis: undifferentiated inflammatory polyarthritis (06/09/24 1050) Status of treatment: Treatment completed (06/09/24 105) Orders: OT evaluation and treatment (06/09/241049) Weight Bearing Status: Weight bearing as tolerated (06/09/24 105) Precautions: Falls;Safety (06/09/24 105) Total Treatment Time: 12 (06/09/24 105) Pain: Patient has complaints of pain. Pain located left LE. Current Functional Status: Activities of Daily Living: Self Care Grooming: Supervision (Please comment) (06/09/24 105) Toileting: Supervision (Please comment) (06/09/24 105) Dressing Lower Body: Dependent (06/09/24 105) Functional Ambulation Assistive Device: Rolling walker (06/09/24 1050) Distance in feet:: 12 (06/09/24 105) Level of Assistance: Supervision (Please Comment) (06/09/24 105) Bed Mobility Sit-Supine: Supervision (Please comment) (06/09/24 105) OT Transfers Sit-Stand: Contact Guard (06/09/24 1050) Stand-Sit: Contact Guard (06/09/24 1050) Toilet: Moderate Assistance (06/09/24 1050) Balance Sit (Static): Fair (06/09/24 1050) Sit (Dynamic): Fair (06/09/24 1050) Stand (Static): Fair (06/09/24 1050) Stand (Dynamic): Fair (06/09/24 1050) Alarm Status Patient positioned in: Bed (06/09/24 1050) With: Call ma in reach (06/09/24 1050) Treatment Provided: Self Longterm Management Trainin minutes Assessment: Seated on toilet with nursing present. Patient demonstrates grooming and toileting supervision level set up. Patient requires assistance with lower body dressing seated. Patient performedfunctional transfer from low toilet surface with moderate assistance using rolling walker and grab rail. Patient demonstrates functional ambulation supervision level using rolling walker. Patient returned to seated position at edge of bed. Patient demonstrates sit to supine supervision level. Patient would benefit from continued OT services to maximize functional independence. Please consider post-acute care services which may include home health, penitentiary, outpatient therapy or inpatient rehabilitation. The level of care will be determined in collaboration with patient, family/caregiver and care team members. Plan: Will continue to follow as per plan. Anticipated Frequency (on eval): 1 to 3 times per week (06/09/241049) AM-PAC Help From Another Person Eating Meals: A little (06/09/241049) Help From Another Person Taking Care of Personal Grooming: A little (06/09/241049) Help From Another Person To Put On/Take Off Upper Body Clothing: A little (06/09/241049) Help From Another Person To Put On/Take Off Lower Body Clothing: Total (06/09/241049) Help From Another Person Toileting: A little (06/09/241049) Help From Another Person Bathing: A lot (06/09/24 105) OT AM-PAC Score: 15 (06/09/24 1050) OT AM-PAC t-Scale Score: 34.69 (06/09/24 1050) A portion of this AM-PAC assessment not scored based on functional assessment; rather clinical decision making utilized based on current findings and/or prior level of function. Please refer to future AM-PAC calculations of functional ability as they become available. * Communication - Mariano Dimas CRNP - 06/09/2024 5:00 AM EST 05/1924 at 5:00 a.m. Patient had fever at start of shift, infectious workup ordered. Fever resolved after Tylenol. Chestx-ray concerning for early pneumonia. This mornings temp back up to 101.8. Evaluated at bedside, patient resting with head of bed slightly elevated, alert and oriented x4, denies chest pain, shortness of breath, cough, abdominal pain, nausea/vomiting/diarrhea, or chills. She describes urinary urgency and frequency, denies burning. UA obtained, reflex to culture. Stat blood cultures pending. Notedto be tachycardic, concerns for sepsis with immunocompromise, will start on broad-spectrum antibiotics with cefepime and vanc. Motrin x1 for fever, and isolyte 1 L bolus. Examination: Pleasant femaleresting with head of bed slightly elevated, alert and oriented x4, lung sounds with diminished bases, no cough, heart rate tachycardic with normal heart tones, abdomen is soft and nontender, bowel sounds active x4 quadrants, and mild bilateral lower extremity edema. Nursing staff updated on plan ofcare. * Care Plan - Katey Thomas RN - 06/09/2024 2:05 AM EST Clinical Goal(s): Pt will remain free from falls this shift (06/09/24 0300) Possible barriers to meeting goal(s)/advancing plan of care: pt condition Stability of the patient: Moderately stable - low risk of patient condition declining or worsening Summary regarding today's goal(s): Met: pt remained free from falls this shift Recommendations: follow fall risk precautions * Care Plan - Jolene Castellon RN - 06/08/2024 12:41 PM EST Clinical Goal(s): pt will get oob to chair (06/08/24 0800) Possible barriers to meeting goal(s)/advancing plan of care: weakness, pain Stability of the patient: Moderately stable - low risk of patient condition declining or worsening Summary regarding today's goal(s): Met: pt got oob to chair and ambulated x3 Recommendations: continue ambulating * Ancillary Progress Note - Deondre Platt RN - 06/08/2024 11:25 AM EST CARE MANAGEMENT - ADULT [place]ANSITION [place] [facility] [place] [address] Name: Bhavin Wilson [place] [facility] [place] Date: 06/08/2024 Time: 11:26 AM Risk Stratification Readmission Risk Score: 14.55 (06/08/24 0801) AM-PAC Score With Stairs : 18 (06/08/24 1115) Caregiver Information Emergency Contacts None on File Other Contacts Name Relation Home Work Mobile Abigail Wilson Mother [phone] Transition of Care Checklist Transition of Care Checklist (aka Readmission Risk Score) Discharge Disposition: Home (06/03/241222) Home or Home w/Home Health: Moderate (12-17%) (06/03/241222) Narrative: CM has been following Bhavin's hospital course. Patient discussed in IDT rounds. They are not medically stable for discharge at this time. She ws admitted with pancreatitis and cholelithiasis. She was transferred to CICU with symptomatic hypocalcemia. She also has concerns for ileus - NGT to suction remains in place. She is receiving IVF with added calcium and steroids. She is being followed by General surgery, Rheumatology, Nephrology and Endocrinology. Discharge plan evolving - CM will continue to follow for discharge needs. Anticipated Transportation at Discharge: family Patient/Family Expectations: return to home Transition Planning Transition Planning Transition Plan/Considerations: Needs uncertain at this time - Continue monitoring for needs;Discussed at Interdisciplinary Team / Boost Rounds (06/03/241222) Insurance Considerations: Precertification needed for Post-Acute Care;Therapy documentation needed for precert request (06/03/241222) Referral to Community Agency : N/A (06/03/241222) Post-Acute Care needs identified and Referrals Completed: N/A (06/03/241222) Additional Considerations: n/a Care Management will continue to monitor and assist with discharge planning needs * Ancillary Progress Note - Marlyn Quinteros PTA - 06/08/2024 11:17 AM EST PROGRESS NOTE - Physical Therapy [address] [address] Name: Bhavin Wilson [place] [facility] [place] Date: 06/08/2024 Time: 11:17 AM Bhavin Wilson is a/an 29 year old female. Patient Status: Inpatient Insurance: Payor: [facility] Plan: [employer] EXTRA HM-E3 Product Type: *No Product type* Patient Identified By: Name, ID Band and Date Diagnosis: undifferentiated inflammatory polyarthritis (06/08/241114) Status of treatment: Treatment completed (06/08/241114) Orders: PT evaluation and treatment (06/08/241114) Weight Bearing Status: Weight bearing as tolerated (06/08/241114) Precautions: Falls;NG tube (06/08/241114) Total Treatment Time--free text: 8 (06/08/241114) Treatment Provided: Gait Training 8 minutes: gait training with rolling walker Pain: No complaints of pain Transfers Sit-Stand: Contact Guard (06/08/241114) Stand-Sit: Contact Guard (poor descent control) (06/08/241114) Ambulation: Distance ambulated (feet): 100 Assistive Device: Rolling walker Assist: Supervision Noted gait deviations: slow gait speed, 1 standing rest break (06/08/241114) Balance Sit (Static): Fair (06/08/241114) Sit (Dynamic): Fair (06/08/241114) Stand (Static): Fair (06/08/241114) Stand (Dynamic): Fair (06/08/241114) Topic of Education: Safety with mobility, Goals/plan of care, and Use of assistive device Method of Education: Verbal discussion and explanation provided to pt: Alarm Status Patient positioned in: Chair (06/08/241114) With: Call ma in reach (no alarm upon arrival) (06/08/241114) Patient Education Review of Precautions: Safety;Fall (06/08/241114) Safety Awareness: Patient verbalizes insight of current deficits;Patient demonstrates carryover of insight during functional tasks;Patient can communicate basic needs;Needs cueing supervision (06/08/24 111) Assessment: Upon arrival pt seated in recliner. She completed transfers with supervision with cues for hand placement. She ambulated 100' using a rolling walker requiring supervision. She presents with a slow gait speed, but no loss of balance. She required 1 short standing rest break due to increased work of breathing. Noted prior to mobility her HR was 139. It increased to 171 during ambulation, but once seated it decreased to 110's quickly. Discussed pt with PT Candelaria Barcenas and agreed due to functional improvement to please consider home with post-acute care services which may include home health or outpatient therapy. The level of care will be determined in collaboration with the patient, family/caregiver and care team members. Deficits requiring P.T. treatment needs: Safety;Balance;Mobility;Weakness;Endurance;Lower extremitystrength (06/08/24 1115) Equipment needs: Rolling walker (06/08/24 111) Plan: Continue with current treatment plan established on evaluation. AM PAC Score with Stairs: 18 A portion of this AM-PAC assessment not scored based on functional assessment; rather clinical decision making utilized based on current findings and/or prior level of function. Please refer to future AM-PAC calculations of functional ability as they become available. * Communication - Angela Lala MD - 06/07/2024 4:34 PM EST Reviewed patient's chart. She was transferred to ICU overnight due to symptomatic hypocalcemia and has been on calcium infusion. Also has paralytic ileus secondary to electrolyte abnormalities. She has multiple medical issues ongoing and is still acutely ill. She would be followed up at the nephrology clinic following discharge for further workup of proteinuria if proteinuria still persists We discussed with [facility] Message sent to Nephrology nursing staff and wax ball molder for follow-up upon discharge Cosigned by Kristy Casas MD at 06/07/2024 4:55 PM EST * Communication - Ada Flaherty MD - 06/07/2024 3:35 PM EST Spoke to patient's mother Abigail and provided update. All questions were answered. * Care Plan - Dayana Olsen RN - 06/07/2024 2:27 PM EST Clinical Goal(s): PY WILL GET OOB (06/07/24 0800) Possible barriers to meeting goal(s)/advancing plan of care: Stability of the patient: Moderately stable - low risk of patient condition declining or worsening Summary regarding today's goal(s): Met: oob to bathroom Recommendations: * Communication - Polly Mojica MD - 06/07/2024 10:16 AM EST Brief Rheumatology Staff Note: Reviewed events and labs since yesterday. Agree with aggressive management of electrolytes (calciumand magnesium), vitamin D replacement as per endocrinology recommendations. Stop anakinra as of today as likely contributing to rash. Continue solumedrol 40 mg IV daily for now. If clinical status more unstable, she might require stress dose steroids as she has been on varying doses of supraphysiologic prednisone as outpatient and now in hospital. Will consider alternative biologic DMARD therapies (IL-6 inhibition with tocilizumab or GER-inhibitor) for inflammatory arthritis in near future. Discussed with ICU team. Coders: Patient not seen, please do not bill. Polly Mojica MD * Inpatient Ask-A-Doc - Lauryn Blanton MD - 06/07/2024 9:00 AM EST Images from the original note were not included. ASK-A-DOC Inpatient Note [address] [address] Name: Bhavin Wilson [place] [facility] [place] Date: 06/07/2024 Time: 9:00 AM Date of Response: 06/07/2024 Latest Reference Range & Units 06/06/24 05:12 25-Hydroxy Vitamin D >19 ng/mL <6 (L) (L): Data is abnormally low Assessment: Persistent hypocalcemia Pancreatitis and cholelithiasis Recommendations: Please consider the following: Change calcium gluconate infusion (11 amp of calcium gluconate in 1 liter dextrose) - run it at 30 ml per hr. Check calcium every 6 hrs, increase rate if calcium is not trending up, once corrected calcium is more than 7.5, stop calcium gluconate infusion. Start vit D 24107 units weekly for 12 weeks Change Tums to calcium citrate 315 mg - 2 tabs three times daily Start rocaltrol 0.5 mcg daily Time spent: 30 minutes * Communication - Primitivo Barrett MD - 06/07/2024 1:11 AM EST Patient with ileus, likely 2/2 electrolyte abnormalities. Please cont NGT, hold on bowel regimen. Correct electrolytes. Primitivo Barrett MD, PGY-4 General Surgery [facility] * Ancillary Progress Note - Sherri Bailey RRT - 06/06/2024 10:40 PM EST PATIENT DRIVEN PROTOCOL - Respiratory Care Services [address] [address] Name: Bhavin Wilson [place] [facility] [place] Date: 06/06/2024 Time: 10:40 PM Patient Driven Protocol Summary: Initial evaluation performed. This Treatment Plan and medications will be reviewed by the Primary Care Team for any contraindications. Respiratory Care Treatment Plan Pulmonary Volume Expansion Therapy: Incentive Spirometry PRN to prevent or treat alveolar consolidation and atelectasis. Secretion Management Treatment: Flutter TherapyPRN to enhance mobilization of secretions and prevent or treat alveolar consolidation and atelectasis. The patient will be re-evaluated: No re-evaluation needed. Indications for treatment met. The Triage Level is: (Assessment Score = 0 - 5) Level 5. Triage Level Definitions: Level 1 Severe Respiratory/Airway Compromise Level 2 Moderate Respiratory/Airway Compromise or high risk for pulmonary complications Level 3 Mild Respiratory/Airway Compromise or moderate risk for pulmonary complications Level 4 Episodic Respiratory/Airway Compromise or low risk for pulmonary complications Level 5 No Respiratory/Airway Compromise Triage 1 Triage 2 Triage 3 Triage 4 Triage 5 greater than 20 16 - 20 11 - 15 6 - 10 0 - 5 Medical Record Assessment Clinical Findings Pulmonary Status: 0 - No History Surgical Status: 0 - No Surgical History Chest X-Ray: 0 - Not Performed or performed greater than 3 days ago Assessment Score: 0 Patient Assessment Clinical Findings Respiratory Pattern: 0 - RR 12 - 20; Patient only gets breathless with strenuous exercise. Breath Sounds: 0 - Clear to auscultation Cough Effectiveness: 0 - Strong non-productive Sputum Production: 0 - No sputum production Level of Activity: 0 - Ambulatory O2 needed to keep SpO2 greater than or equal to 92%: 0 - Room Air Assessment Score: 0 Total Assessment Score: 0 Breath Sounds: Inspiratory and expiratory clear bilaterally.. Cough and Sputum: An effective cough produced no sputum... CXR: Not performed. Vital Signs: Resp: 19 (06/06/242229) Pulse: 79 (06/06/242229) Temp: 36.2 C (97.2 F) (06/06/242044) BP: 99/72 (06/06/242229) SpO2: 98 % (06/06/242229) PFT: Minimal Predicted IC: 0.819 L. Inspiratory capacity: 0.5 L. Primary Service: [facility] [place]. Admitting Diagnosis: Arthritis [M19.90] Joint pain [M25.50] Pulmonary Diagnosis: None . Prescriptions/Home Medications/Durable Medical Equipment: None. * Care Plan - Mildred Chin RN - 06/06/2024 6:30 PM EST Clinical Goal(s): pt will remain free from falls (06/06/24 0800) Possible barriers to meeting goal(s)/advancing plan of care: weakness Stability of the patient: Moderately stable - low risk of patient condition declining or worsening Summary regarding today's goal(s): Met: Recommendations: * Communication - Gaston Youssef MD - 06/04/2024 6:22 AM EST Brief Communication Note [facility] [place] [address] Name: Bhavin Wilson Date of : 1995 Subjective: Paged by nursing in regards to chest pain. Nursing staff reported that patient was experiencing chest pain, epigastric to substernal. EKG was obtained, which demonstrated new T wave inversions in V2.Patient seen and examined at bedside. Patient reported chest pain starting around 0500, upon waking, rated 7/10, described as a "stabbing pain," constant in nature, exacerbated by deep breaths, not related to positional changes, associated with mild shortness of breath. Pain was reproducible on palpation to central chest/epigastric area. Patient reports history of GERD, and states it feels similar although not as severe. Objective: Vital Signs: BP 114/75 | Pulse 73 | Temp 35.6 C (96 F) (Tympanic) | Resp 16 | Ht 1.626 m (5' 4") | Wt 54.7 kg (120 lb 11.2 oz) | SpO2 93% | BMI 20.72 kg/m | BSA 1.57 m Physical Exam: Constitutional: awake, alert, appears uncomfortable CV: S1, S2 present; no murmurs, unable to appreciate any friction rubs Chest: tender to palpation of epigastrum and sternum Abdomen: Soft, tender to palpation of epigastric region Lower Extremities: No edema Neurologic: no focal deficits, mentation in tact Assessment & Plan: Patient has history of elevated troponin, and given complex history with Stills disease, and changes on EKG, there is concern for possible cardiac etiology, whether it be myocarditis/pericarditis. Other differentials to consider for her chest pain would be costochondritis, GERD, and less likely anxiety. -Obtain troponin -Lidocaine patch Gaston Youssef MD Internal Medicine PGY-1 * Ancillary Progress Note - Dayana Erickson RN - 06/03/2024 12:24 PM EST CARE MANAGEMENT - ADULT [place]ANS[place] [facility] [place] [id number] Name: Bhavin Wilson [place] [facility] [place] Date: 06/03/2024 Time: 12:24 PM Risk Stratification Readmission Risk Score: 14.43 (06/03/24 1202) AM-PAC Score With Stairs : 17 (06/02/241940) Caregiver Information Emergency Contacts None on File Other Contacts Name Relation Home Work Mobile Abigail Wilson Mother [phone] Transition of Care Checklist Transition of Care Checklist (aka Readmission Risk Score) Discharge Disposition: Home (06/03/241222) Home or Home w/Home Health: Moderate (12-17%) (06/03/241222) Narrative: Chart reviewed; full Care Management assessment not indicated at this time. As per chartreview, patient resides at home with significant other, is independent at baseline. Anticipate [facility] when medically stable. Discussed in IDT rounds. As per service, patient is not medically stable for discharge. NPO for possible bone marrow biopsy, rheumatology and PT/OT consult/recs pending. Pt to receive IV steroids andanakinra today. Anticipated Transportation at Discharge: family Patient/Family Expectations: return home Transition Planning Transition Planning Transition Plan/Considerations: Needs uncertain at this time - Continue monitoring for needs;Discussed at Interdisciplinary Team / Boost Rounds (06/03/241222) Insurance Considerations: Precertification needed for Post-Acute Care;Therapy documentation needed for precert request (06/03/241222) Referral to Community Agency : N/A (06/03/241222) Post-Acute Care needs identified and Referrals Completed: N/A (06/03/241222) Additional Considerations: Care Management will continue to monitor and assist with discharge planning needs * Communication - Noah Marie DO - 06/03/2024 2:42 AM EST Paged to bedside regarding patient's fever and low BP of 98/48 mmHg (repeat-manual). Patient states that she feels an interval improvement in her lightheadedness from before, although she feels thirsty. She understands that she has a potential procedure today, and that she is not allow to eat or drink anything by mouth. Patient states that the fever she has been experiencing is typical for her, and that she felt hot earlier on in the night. Patient denies any syncope, chest pain,palpitations, shortness of breath, nausea, vomiting, diarrhea. Constitutional: 29-year-old female resting comfortably in bed. In no acute distress. Cardiovascular: Regular rate and rhythm, S1 and S2 present, no murmurs on auscultation Respiratory: Clear to auscultation bilaterally, no wheezes, rhonchi, crackles Abdomen: Soft, non-tender, non-distended, normal bowel sounds Extremities: No lower extremity edema bilaterally A/P: At this time, favor that patient's fever is likely inflammatory in nature. Given that Bcx were already drawn, we can start empiric Abx for infectious coverage and consider discontinuing in the AM. - Finish current Isolyte bag as bolus - Start Isolyte 100 mL/hr afterwards - Start Broad Spectrum Abx for Infectious Coverage, can consider d/c'ing Noah Marie DO PGY-1, [facility] Internal Medicine Residency documented in this encounter Plan of Treatment Upcoming Encounters Date Type Department Care Team (Late st Contact Info) Description 06/25/2024 11:40 AM EST Office Visit Family Practice State Maria E Garcia [address] [place] [id number] Payal Myers MD [address] [place] [id number] 08/19/2024 9:00 AM EST Office Visit Nephrology, Suleiman Phillip [address] [place] [address] Ant Cardona MD [address] [facility] [place] [address] 08/31/2024 8:20 AM EST Office Visit [facility] [address] [facility] [place], [address] [id number] Payal Myers MD [address] [facility] [place], [address] [id number] Pending Results Name Type Priority Associated Diagnoses Date /Time REFERRED TEST, OTHER,(LAB USE ONLY) Lab Routine 06/04/2024 8:37 AM EST REFERRED TEST, OTHER,(LAB USE ONLY) Lab Routine 06/04/2024 8:38 AM EST BONE MARROW PANEL Lab Routine 2:26 PM EST BONE MARROW ASPIRATE LAVENDER (MOLECULAR) - 2 TUB* Lab Routine 06/04/2024 2:26 PM EST BONE MARROW ASPIRATE GREEN (REFERRED) Lab Routine 06/04/2024 2:26 PM EST COMPREHENSIVE BONE MARROW CONSULTATION Pathology Routine 06/04/2024 2:26 PM EST CULTURE, BLOOD Lab STAT 06/09/2024 5:00 AM EST CULTURE, BLOOD Lab Routine 06/09/2024 5:05 AM EST Scheduled Orders Name Type Priority Associated Diagnoses Orde r Schedule REFERRED TEST, OTHER,(LAB USE ONLY) Lab Routine One Time fo r 1 Occurrences starting 06/03/2024 until 06/03/2024 REFERRED TEST, OTHER,(LAB USE ONLY) Lab Routine One Time fo r 1 Occurrences starting 06/03/2024 until 06/03/2024 BONE MARROW PANEL Lab Routine One Jeremiah e for 1 Occurrences starting 06/04/2024 until 06/04/2024 BONE MARROW ASPIRATE LAVENDER (MOLECULAR) - 2 TUB* Lab Routine Once for 1 Occurrences starting 06/04/2024 until 06/04/2024, 1 completed BONE MARROW ASPIRATE GREEN (REFERRED) Lab Routine Once for 1 Occurrences starting 06/04/2024 until 06/04/2024 COMPREHENSIVE BONE MARROW CONSULTATION Pathology Routine One Time for 1 Occurrences starting 06/04/2024 until 06/04/2024, 1 completed COMPREHENSIVE METABOLIC PANEL Lab Routine Still's disease (HCC) Expected: 06/16/2024, Expires: 06/13/2025 MAGNESIUM Lab Routine Still's disease (HCC) Expected: 06/16/2024, Expires: 06/13/2025 PHOSPHORUS Lab Routine Still's disease (HCC) Expected: 06/16/2024, Expires: 06/13/2025 Scheduled Referrals Name Type Priority Associated Diagnoses Orde r Schedule SURGERY REFERRAL OP Referral Within 30 days (routine) Gallstone pancreatitis Ordered: 06/08/2024 Health Maintenance Due Date Last Done Comments [...] Procedure Name Priority Date/Time Associated Diagnosis Comments DIFFERENTIAL, AUTOMATED Routine 06/13/2024 3:40 AM EST COMPREHENSIVE METABOLIC PANEL Routine 06/13/2024 3:40 AM EST CBC Routine 06/13/2024 3:40 AM EST PT INR Routine 06/13/2024 3:40 AM EST PHOSPHORUS STAT 06/13/2024 3:40 AM EST LD Routine 06/13/2024 3:40 AM EST CALCIUM, IONIZED STAT 06/13/2024 3:40 AM EST APTT Routine 06/13/2024 3:40 AM EST CBC Routine 06/13/2024 3:40 AM EST TRIGLYCERIDES Routine 06/13/2024 3:40 AM EST MAGNESIUM STAT 06/13/2024 3:40 AM EST FERRITIN Routine 06/13/2024 3:40 AM EST DIFFERENTIAL, AUTOMATED Routine 06/12/2024 5:03 AM EST COMPREHENSIVE METABOLIC PANEL Routine 06/12/2024 5:03 AM EST CBC Routine 06/12/2024 5:03 AM EST PT INR Routine 06/12/2024 5:03 AM EST PHOSPHORUS STAT 06/12/2024 5:03 AM EST LD Routine 06/12/2024 5:03 AM EST APTT Routine 06/12/2024 5:03 AM EST CBC Routine 06/12/2024 5:03 AM EST TRIGLYCERIDES Routine 06/12/2024 5:03 AM EST MAGNESIUM STAT 06/12/2024 5:03 AM EST FERRITIN Routine 06/12/2024 5:03 AM EST CALCIUM, IONIZED STAT 06/11/2024 10:4 5 PM EST CALCIUM, IONIZED STAT 06/11/2024 3:[address] ABD/PELVIS W IV CONTRAST - WO ORAL CONTRAST Routine 06/11/2024 11:47 AM EST Pleural effusion, not elsewhere classified Other ascites Abnormal findings on diagnostic imaging of other abdominal regions, including retroperitoneum Unspecified abdominal pain Personal history of other diseases of the digestive system CALCIUM, IONIZED STAT 06/11/2024 9:01 AM EST DIFFERENTIAL, AUTOMATED Routine 06/11/2024 4:35 AM EST COMPREHENSIVE METABOLIC PANEL Routine 06/11/2024 4:35 AM EST CBC Routine 06/11/2024 4:35 AM EST PT INR Routine 06/11/2024 4:35 AM EST PHOSPHORUS STAT 06/11/2024 4:35 AM EST LD Routine 06/11/2024 4:35 AM EST APTT Routine 06/11/2024 4:35 AM EST CBC Routine 06/11/2024 4:35 AM EST DIFFERENTIAL, TECHNOLOGIST REVIEW Routine 06/11/2024 4:35 AM EST TRIGLYCERIDES Routine 06/11/2024 4:35 AM EST MAGNESIUM STAT 06/11/2024 4:35 AM EST FERRITIN Routine 06/11/2024 4:35 AM EST CALCIUM, IONIZED STAT 06/10/2024 11:5 4 PM EST XR ABDOMEN 1 VIEW STAT 06/10/2024 4:0 7 PM EST CALCIUM, IONIZED STAT 06/10/2024 3:22 PM EST MRSA SCREEN, PCR Routine 06/10/2024 3:17 PM EST CALCIUM, IONIZED STAT 06/10/2024 8:58 AM EST DIFFERENTIAL, AUTOMATED Routine 06/10/2024 4:01 AM EST COMPREHENSIVE METABOLIC PANEL Routine 06/10/2024 4:01 AM EST CBC Routine 06/10/2024 4:01 AM EST PT INR Routine 06/10/2024 4:01 AM EST PHOSPHORUS STAT 06/10/2024 4:01 AM EST LD Routine 06/10/2024 4:01 AM EST APTT Routine 06/10/2024 4:01 AM EST CBC Routine 06/10/2024 4:01 AM EST TRIGLYCERIDES Routine 06/10/2024 4:01 AM EST MAGNESIUM STAT 06/10/2024 4:01 AM EST FERRITIN Routine 06/10/2024 4:01 AM EST CALCIUM, IONIZED STAT 06/10/2024 12:0 7 AM EST CALCIUM, IONIZED STAT 06/09/2024 3:28 PM EST CALCIUM, IONIZED STAT 06/09/2024 11:4 3 AM EST PT INR Routine 06/09/2024 7:59 AM EST CALCIUM, IONIZED STAT 06/09/2024 7:59 AM EST APTT Routine 06/09/2024 7:59 AM EST CULTURE, BLOOD Routine 06/09/2024 5:05 AM EST DIFFERENTIAL, AUTOMATED Routine 06/09/2024 5:01 AM EST PROCALCITONIN Add-on 06/09/2024 5:01 AM EST CRP (INFLAMMATORY MARKER) Routine 06/09/2024 5:01 AM EST COMPREHENSIVE METABOLIC PANEL Routine 06/09/2024 5:01 AM EST CBC Routine 06/09/2024 5:01 AM EST COMPLEMENT C4 Routine 06/09/2024 5:01 AM EST COMPLEMENT C3 Routine 06/09/2024 5:01 AM EST PHOSPHORUS STAT 06/09/2024 5:01 AM EST LD Routine 06/09/2024 5:01 AM EST CALCIUM, IONIZED STAT 06/09/2024 5:01 AM EST CBC Routine 06/09/2024 5:01 AM EST DIFFERENTIAL, TECHNOLOGIST REVIEW Routine 06/09/2024 5:01 AM EST TRIGLYCERIDES Routine 06/09/2024 5:01 AM EST MAGNESIUM STAT 06/09/2024 5:01 AM EST FERRITIN Routine 06/09/2024 5:01 AM EST CULTURE, BLOOD STAT 06/09/2024 5:00 AM EST ERYTHROCYTE SEDIMENTATION RATE (ESR) Routine 06/09/2024 5:00 AM EST CALCIUM, IONIZED STAT 06/08/2024 11:3 3 PM EST XR CHEST 1 VIEW STAT 06/08/2024 10:52 PM EST URINALYSIS, REFLEX TO CULTURE Routine 06/08/2024 9:22 PM EST URINALYSIS, REFLEX TO CULTURE (CUP ONLY) Routine 06/08/2024 9:22 PM EST URINALYSIS, REFLEX TO CULTURE (NOT FOR NEUTROPENIC PATIENTS) Routine 06/08/2024 9:22 PM EST RESPIRATORY PATHOGEN PANEL, PCR STAT 06/08/2024 9:22 PM EST CULTURE, URINE, QUANTITATIVE Routine 06/08/2024 9:22 PM EST BASIC METABOLIC PANEL STAT 06/08/2024 8:57 PM EST CBC STAT 06/08/2024 8:57 PM EST LACTATE STAT 06/08/2024 8:56 PM EST CALCIUM, IONIZED STAT 06/08/2024 8:51 PM EST CALCIUM, IONIZED STAT 06/08/2024 4:31 PM EST CALCIUM, IONIZED STAT 06/08/2024 11:4 0 AM EST CALCIUM, IONIZED STAT 06/08/2024 9:10 AM EST XR ABDOMEN 1 VIEW Routine 06/08/2024 8:2 8 AM EST DIFFERENTIAL, AUTOMATED Routine 06/08/2024 5:22 AM EST CRP (INFLAMMATORY MARKER) Routine 06/08/2024 5:22 AM EST COMPREHENSIVE METABOLIC PANEL Routine 06/08/2024 5:22 AM EST CBC Routine 06/08/2024 5:22 AM EST COMPLEMENT C4 Routine 06/08/2024 5:22 AM EST COMPLEMENT C3 Routine 06/08/2024 5:22 AM EST PT INR Routine 06/08/2024 5:22 AM EST PHOSPHORUS STAT 06/08/2024 5:22 AM EST LD Routine 06/08/2024 5:22 AM EST CALCIUM, IONIZED STAT 06/08/2024 5:22 AM EST APTT Routine 06/08/2024 5:22 AM EST ERYTHROCYTE SEDIMENTATION RATE (ESR) Routine 06/08/2024 5:22 AM EST CBC Routine 06/08/2024 5:22 AM EST TRIGLYCERIDES Routine 06/08/2024 5:22 AM EST MAGNESIUM STAT 06/08/2024 5:22 AM EST FERRITIN Routine 06/08/2024 5:22 AM EST URINE PROTEIN, 24 HOUR Routine 3:34 AM EST CALCIUM, IONIZED STAT 06/07/2024 11:4 2 PM EST CALCIUM, IONIZED STAT 06/07/2024 7:18 PM EST CALCIUM, IONIZED STAT 06/07/2024 4:34 PM EST GLUCOSE METER, POINT OF CARE AMAIRANI 06/07/2024 4:19 PM EST HC ECG TRACING ONLY STAT 06/07/2024 4 :14 PM EST Chest pain CALCIUM, IONIZED STAT 06/07/2024 11:1 8 AM EST CALCIUM, IONIZED STAT 06/07/2024 8:56 AM EST DIFFERENTIAL, AUTOMATED Routine 06/07/2024 5:54 AM EST 1,25-DIHYDROXY VITAMIN D Add-on 06/07/2024 5:54 AM EST CRP (INFLAMMATORY MARKER) Routine 06/07/2024 5:54 AM EST BETA-HCG, QUANTITATIVE Routine 5:54 AM EST COMPREHENSIVE METABOLIC PANEL Routine 06/07/2024 5:54 AM EST CBC Routine 06/07/2024 5:54 AM EST COMPLEMENT C4 Routine 06/07/2024 5:54 AM EST COMPLEMENT C3 Routine 06/07/2024 5:54 AM EST PT INR Routine 06/07/2024 5:54 AM EST PHOSPHORUS STAT 06/07/2024 5:54 AM EST LIPASE Add-on 06/07/2024 5:54 AM EST LD Routine 06/07/2024 5:54 AM EST CALCIUM, IONIZED STAT 06/07/2024 5:54 AM EST APTT Routine 06/07/2024 5:54 AM EST ERYTHROCYTE SEDIMENTATION RATE (ESR) Routine 06/07/2024 5:54 AM EST CBC Routine 06/07/2024 5:54 AM EST DIFFERENTIAL, TECHNOLOGIST REVIEW Routine 06/07/2024 5:54 AM EST TRIGLYCERIDES Routine 06/07/2024 5:54 AM EST MAGNESIUM STAT 06/07/2024 5:54 AM EST FERRITIN Routine 06/07/2024 5:54 AM EST BASIC METABOLIC PANEL Routine 06/06/2024 11:31 PM EST PHOSPHORUS STAT 06/06/2024 11:31 PM EST CALCIUM, IONIZED STAT 06/06/2024 11:3 1 PM EST MAGNESIUM STAT 06/06/2024 11:31 PM EST XR ABDOMEN 1 VIEW STAT 06/06/2024 11: 08 PM EST Encounter for fitting and adjustment of other gastrointestinal appliance and device HC ECG TRACING ONLY STAT 06/06/2024 9 :18 PM EST Chest pain BASIC METABOLIC PANEL Routine 06/06/2024 9:06 PM EST CALCIUM, IONIZED Routine 06/06/2024 9:06 PM EST MAGNESIUM Routine 06/06/2024 9:06 PM EST XR ABDOMEN 1 VIEW STAT 06/06/2024 6:5 0 PM EST Abnormal findings on diagnostic imaging of other abdominal regions, including retroperitoneum Unspecified abdominal pain HC ECG TRACING ONLY STAT 06/06/2024 5 :56 PM EST Electrolyte abnormality CALCIUM, IONIZED Routine 06/06/2024 4:30 PM EST XR ABDOMEN 1 VIEW STAT 06/06/2024 9:2 2 AM EST Acute pancreatitis without necrosis or infection, unspecified Abdominal distension (gaseous) DIFFERENTIAL, AUTOMATED Routine 06/06/2024 5:12 AM EST 25-HYDROXY VITAMIN D Add-on 06/06/2024 5:12 AM EST CRP (INFLAMMATORY MARKER) Routine 06/06/2024 5:12 AM EST COMPREHENSIVE METABOLIC PANEL Routine 06/06/2024 5:12 AM EST CBC Routine 06/06/2024 5:12 AM EST PT INR Routine 06/06/2024 5:12 AM EST PTH Add-on 06/06/2024 5:12 AM EST LD Routine 06/06/2024 5:12 AM EST CALCIUM, IONIZED Routine 06/06/2024 5:12 AM EST APTT Routine 06/06/2024 5:12 AM EST ERYTHROCYTE SEDIMENTATION RATE (ESR) Routine 06/06/2024 5:12 AM EST CBC Routine 06/06/2024 5:12 AM EST TRIGLYCERIDES Routine 06/06/2024 5:12 AM EST MAGNESIUM Add-on 06/06/2024 5:12 AM EST FERRITIN Routine 06/06/2024 5:12 AM EST CYSTATIN C WITH EGFR Add-on 06/05/2024 8:58 AM EST DOUBLE STRANDED DNA (DSDNA) ANTIBODY, IFA Add-on 06/05/2024 8:58 AM EST ANTINUCLEAR ANTIBODY (DESTINY), IFA Routine 06/05/2024 8:58 AM EST IMMUNOGLOBULIN G SUBCLASSES Routine 06/05/2024 8:58 AM EST SERUM FREE LIGHT CHAINS Add-on 06/05/2024 8:58 AM EST PHOSPHORUS Add-on 06/05/2024 8:58 AM EST FILARIA ANTIBODY (IGG4) Routine 06/05/2024 6:44 AM EST US ABDOMEN COMPLETE STAT 06/05/2024 6 :17 AM EST DIFFERENTIAL, AUTOMATED Routine 06/05/2024 5:52 AM EST CBC Routine 06/05/2024 5:52 AM EST CBC Routine 06/05/2024 5:52 AM EST CRP (INFLAMMATORY MARKER) Routine 06/05/2024 5:51 AM EST COMPREHENSIVE METABOLIC PANEL Routine 06/05/2024 5:51 AM EST D-DIMER Routine 06/05/2024 5:51 AM EST PT INR Routine 06/05/2024 5:51 AM EST LD Routine 06/05/2024 5:51 AM EST APTT Routine 06/05/2024 5:51 AM EST ERYTHROCYTE SEDIMENTATION RATE (ESR) Routine 06/05/2024 5:51 AM EST TRIGLYCERIDES Routine 06/05/2024 5:51 AM EST FERRITIN Routine 06/05/2024 5:51 AM EST URINALYSIS, REFLEX TO CULTURE Routine 06/04/2024 11:18 PM EST URINALYSIS, REFLEX TO CULTURE (CUP ONLY) Routine 06/04/2024 11:18 PM EST URINALYSIS, REFLEX TO CULTURE (NOT FOR NEUTROPENIC PATIENTS) Routine 06/04/2024 11:18 PM EST PROTEIN/ CREATININE RATIO, URINE Routine 06/04/2024 11:18 PM EST ANCA, IFA Routine 06/04/2024 9:58 PM EST ANCA REFLEX PANEL Add-on 06/04/2024 9:5 8 PM EST HISTONE ANTIBODIES Add-on 06/04/2024 9: 58 PM EST THYROID PEROXIDASE ANTIBODY Routine 06/04/2024 9:58 PM EST SURGICAL PATHOLOGY STAT 06/04/2024 4: 49 PM EST CYTOGENETICS ONCOLOGY CHROMOSOME ANALYSIS Routine 06/04/2024 2:26 PM EST FLOW CYTOMETRY, LEUKEMIA LYMPHOMA PANEL Routine 06/04/2024 2:26 PM EST BONE MARROW ASPIRATE GREEN (FLOW) Routine 06/04/2024 2:26 PM EST MYGENVAR HEMATOLOGY GENE PANEL, NEXT GENERATION SEQUENCING Routine 06/04/2024 2:26 PM EST BONE MARROW WITH REFLEX TESTING Routine 06/04/2024 2:26 PM EST LACTATE Routine 06/04/2024 12:05 PM EST TROPONIN T, HIGH SENSITIVITY Routine 06/04/2024 11:33 AM EST COMPLEMENT C4 Add-on 06/04/2024 11:33 AM EST COMPLEMENT C3 Add-on 06/04/2024 11:33 AM EST LIPASE Add-on 06/04/2024 11:33 AM EST CO2 Add-on 06/04/2024 11:33 AM EST RESPIRATORY PATHOGEN PANEL, PCR STAT 06/04/2024 11:04 AM EST ECHO, COMPLETE (2D), TRANS-THORACIC STAT 06/04/2024 10:42 AM EST Chest pain, unspecified type LACTATE Routine 06/04/2024 10:[address] PULMONARY EMBOLUS W CONTRAST STAT 06/04/2024 10:10 AM EST Acute pancreatitis without necrosis or infection, unspecified Other disorders of lung Other nonspecific abnormal finding of lung field Localized enlarged lymph nodes Tachycardia, unspecified HC ECG TRACING ONLY STAT 06/04/2024 9 :41 AM EST Chest pain TROPONIN T, HIGH SENSITIVITY Routine 06/04/2024 8:55 AM EST REFERRED TEST, OTHER,(LAB USE ONLY) Routine 06/04/2024 8:38 AM EST REFERRED TEST, OTHER,(LAB USE ONLY) Routine 06/04/2024 8:37 AM EST REFERRED TEST, OTHER,(LAB USE ONLY) Routine 06/04/2024 8:37 AM EST EXTRA LAVENDER TOP Routine 06/04/2024 8: 31 AM EST EXTRA TUBES Routine 06/04/2024 8:31 AM EST DIFFERENTIAL, AUTOMATED Routine 06/04/2024 5:43 AM EST TROPONIN T, HIGH SENSITIVITY STAT 06/04/2024 5:43 AM EST CRP (INFLAMMATORY MARKER) Routine 06/04/2024 5:43 AM EST BNP (NT-PROBNP) Add-on 06/04/2024 5:43 AM EST COMPREHENSIVE METABOLIC PANEL Routine 06/04/2024 5:43 AM EST D-DIMER Routine 06/04/2024 5:43 AM EST CBC Routine 06/04/2024 5:43 AM EST PT INR Routine 06/04/2024 5:43 AM EST LD Routine 06/04/2024 5:43 AM EST APTT Routine 06/04/2024 5:43 AM EST ERYTHROCYTE SEDIMENTATION RATE (ESR) Routine 06/04/2024 5:43 AM EST CBC Routine 06/04/2024 5:43 AM EST TRIGLYCERIDES Routine 06/04/2024 5:43 AM EST FERRITIN Routine 06/04/2024 5:43 AM EST HC ECG TRACING ONLY STAT 06/04/2024 5 :28 AM EST Chest pain GLUCOSE METER, POINT OF CARE AMAIRANI 06/03/2024 1:31 PM EST PARVOVIRUS B19 ANTIBODIES (IGG, IGM) Routine 06/03/2024 11:19 AM EST NON-FORMULARY TEST REQUEST Routine 06/03/2024 9:41 AM EST NON-FORMULARY TEST REQUEST Routine 06/03/2024 9:41 AM EST NON-FORMULARY TEST REQUEST Routine 06/03/2024 9:41 AM EST NON-FORMULARY TEST REQUEST Routine 06/03/2024 9:41 AM EST NON-FORMULARY TEST REQUEST Routine 06/03/2024 9:41 AM EST CLINICIAN PERIPHERAL BLOOD SLIDE REQUEST Add-on 06/03/2024 5:57 AM EST SYPHILIS ANTIBODY SCREEN Add-on 06/03/2024 5:57 AM EST ANTINUCLEAR ANTIBODY (DESTINY) SCREEN, HARINI Routine 06/03/2024 5:57 AM EST ANTINUCLEAR ANTIBODY (DESTINY) EIA SCREEN WITH REFLEX AB QUANT Routine 06/03/2024 5:57 AM EST SYPHILIS ANTIBODY SCREEN WITH REFLEX TO RPR Add-on 06/03/2024 5:57 AM EST CRP (INFLAMMATORY MARKER) Routine 06/03/2024 5:57 AM EST IMMUNOGLOBULIN G SUBCLASSES Add-on 06/03/2024 5:57 AM EST COMPREHENSIVE METABOLIC PANEL Routine 06/03/2024 5:57 AM EST D-DIMER Routine 06/03/2024 5:57 AM EST IGM Routine 06/03/2024 5:57 AM EST IGG Routine 06/03/2024 5:57 AM EST IGA Routine 06/03/2024 5:57 AM EST COMPLEMENT C4 Routine 06/03/2024 5:57 AM EST COMPLEMENT C3 Routine 06/03/2024 5:57 AM EST PT INR Routine 06/03/2024 5:57 AM EST LD Routine 06/03/2024 5:57 AM EST APTT Routine 06/03/2024 5:57 AM EST ERYTHROCYTE SEDIMENTATION RATE (ESR) Routine 06/03/2024 5:57 AM EST FIBRINOGEN Routine 06/03/2024 5:57 AM EST CBC Routine 06/03/2024 5:57 AM EST TRIGLYCERIDES Routine 06/03/2024 5:57 AM EST FERRITIN Routine 06/03/2024 5:57 AM EST URINALYSIS, REFLEX TO CULTURE Routine 06/02/2024 11:07 PM EST URINALYSIS, REFLEX TO CULTURE (CUP ONLY) Routine 06/02/2024 11:07 PM EST URINALYSIS, REFLEX TO CULTURE (NOT FOR NEUTROPENIC PATIENTS) Routine 06/02/2024 11:07 PM EST CULTURE, URINE, QUANTITATIVE Routine 06/02/2024 11:07 PM EST PROTEIN/ CREATININE RATIO, URINE Routine 06/02/2024 11:07 PM EST ABO/RH STAT 06/02/2024 10:17 PM EST TYPE AND SCREEN Routine 06/02/2024 10:17 PM EST CULTURE, BLOOD Routine 06/02/2024 10:17 PM EST CULTURE, BLOOD Routine 06/02/2024 10:17 PM EST DOUBLE STRANDED DNA (DSDNA) ANTIBODY, QUANT Add-on 06/02/2024 2:31 PM EST SERUM PROTEIN ELECTROPHORESIS REFLEX PROFILE Add-on 06/02/2024 2:31 PM EST SERUM IMMUNOFIXATION Add-on 06/02/2024 2:31 PM EST HAPTOGLOBIN Add-on 06/02/2024 2:31 PM EST ACUTE HEPATITIS PANEL Add-on 06/01/2024 11:36 AM EST documented in this encounter Results * (ABNORMAL) DIFFERENTIAL, AUTOMATED (06/13/2024 3:40 AM EST) WBC 12.30(H) 4.00 - 10.80 K/uL 06/13/2024 3:55 AM EST [facility] Neutrophils % 91.8(H) 40.0 - 75.0 % 06/13/2024 3:55 AM EST [facility] Lymphocytes % 4.4(L) 18.0 - 42.0 % 06/13/2024 3:55 AM EST [facility] Monocytes % 2.1 1.0 - 11.0 % 06/13/2024 3:55 AM EST [facility] Eosinophils % 0.0 0.0 - 6.0 % 06/13/2024 3:55 AM EST [facility] Basophils % 0.1 0.0 - 2.0 % 06/13/2024 3:55 AM EST [facility] Immature Granulocytes % 1.6 0.0 - 2.0 % 06/13/2024 3:55 AM EST [facility] Absolute Neutrophils 11.29(H) 1.80 - 7.70 K/uL 06/13/2024 3:55 AM EST [facility] Absolute Lymphocytes 0.54(L) 1.00 - 4.80 K/ul 06/13/2024 3:55 AM EST [facility] Absolute Monocytes 0.26 0.00 - 1.10 K/uL 06/13/2024 3:55 AM EST [facility] Absolute Eosinophils 0.00 0.00 - 0.70 K/uL 06/13/2024 3:55 AM EST [facility] Absolute Basophils 0.01 0.00 - 0.20 K/uL 06/13/2024 3:55 AM EST [facility] Absolute Immature Granulocytes 0.20 0.00 - 0.20 K/uL 06/13/2024 3:55 AM EST [facility] Blood Venous blood specimen / Unknown Venipuncture / Unknown 06/13/2024 3:40 AM EST 06/13/2024 3:47 AM EST us Flex Nunez MD LAB BLOOD ORDERABLES Final Resul t Performing Organization Address City/[facility]/ZIP Co de Phone Number [facility] [address] [place] [address] * (ABNORMAL) CBC (06/13/2024 3:40 AM EST) WBC 12.30(H) 4.00 - 10.80 K/uL 06/13/2024 3:55 AM EST [facility] RBC 3.14 3.85 - 5.15 M/uL 06/13/2024 3:55 AM EST [facility] HGB 8.6(L) 12.0 - 15.3 g/dL 06/13/2024 3:55 AM EST [facility] HCT 26.9(L) 36.0 - 45.2 % 06/13/2024 3:55 AM EST [facility] MCV 85.7 81.5 - 97.5 fL 06/13/2024 3:55 AM EST [facility] MCH 27.4 27.0 - 34.0 pg 06/13/2024 3:55 AM EST [facility] MCHC 32.0 32.0 - 36.0 g/dL 06/13/2024 3:55 AM EST [facility] RDW 19.6 11.5 - 15.5 % 06/13/2024 3:55 AM EST [facility] PLT 274 140 - 400 K/uL 06/13/2024 3:55 AM EST [facility] MPV 8.5 6.6 - 11.1 fL 06/13/2024 3:55 AM EST [facility] nRBCs 0 <=0 /100 WBCs 06/13/2024 3:55 AM EST [facility] Blood Venous blood specimen / Unknown Venipuncture / Unknown 06/13/2024 3:40 AM EST 06/13/2024 3:47 AM EST us Flex Nunez MD LAB BLOOD ORDERABLES Final Resul t Performing Organization Address City/[facility]/ZIP Co de Phone Number [facility] [address] [place] [address] * CALCIUM, IONIZED (06/13/2024 3:40 AM EST) Calcium, Ionized 1.13 1.13 - 1.32 mmol/L 06/13/2024 4:12 AM EST [facility] Comment:This test was develo ped and its performance characteristics dtermined by [employer]. It has not been cleared or approved by the [place] Food and Drug Administration Blood Venous blood specimen / Unknown Venipuncture / Unknown 06/13/2024 3:40 AM EST 06/13/2024 3:47 AM EST Deanna Mandel DO LAB BLOOD ORDERABLES Fin al Result [facility] [address] [place] [address] * PHOSPHORUS (06/13/2024 3:40 AM EST) Pathologist [facility] Phosphorus 3.5 2.5 - 4.8 mg/dL 06/13/2024 4:14 AM EST [facility] Blood Venous blood specimen / Unknown Venipuncture / Unknown 06/13/2024 3:40 AM EST 06/13/2024 3:47 AM EST Bhavin Bailon PA-C LAB BLOOD ORDERABLES Fin al Result Performing Organization Address City/[facility]/ZIP Co de Phone Number LAB[facility]ATORY [place] [address] [place] [address] * MAGNESIUM (06/13/2024 3:40 AM EST) Pathologist [facility] Magnesium 1.9 1.5 - 2.6 mg/dL 06/13/2024 4:14 AM EST [facility] Blood Venous blood specimen / Unknown Venipuncture / Unknown 06/13/2024 3:40 AM EST 06/13/2024 3:47 AM EST Bhavin Bailon PA-C LAB BLOOD ORDERABLES Fin al Result [facility] [address] [place] [address] * (ABNORMAL) COMPREHENSIVE METABOLIC PANEL (06/13/2024 3:40 AM EST) BUN 7 6 - 20 mg/dL 06/13/2024 4:14 AM EST [facility] CREATININE 0.3(L) 0.5 - 1.0 mg/dL 06/13/2024 4:14 AM EST [facility] EGFR >90 >=60 mL/min 06/13/2024 4:14 AM EST [facility] Comment:eGFR is calculated b ased on the CKD-EPI 2020 equation. SODIUM 139 135 - 146 mmol/L 06/13/2024 4:14 AM EST [facility] POTASSIUM 4.3 3.5 - 5.1 mmol/L 06/13/2024 4:14 AM EST [facility] CHLORIDE 101 98 - 107 mmol/L 06/13/2024 4:14 AM EST [facility] CO2 27 22 - 32 mmol/L 06/13/2024 4:14 AM EST [facility] ANION GAP 11 7 - 15 mmol/L 06/13/2024 4:14 AM EST [facility] GLUCOSE 93 70 - 120 mg/dL 06/13/2024 4:14 AM EST [facility] Albumin 2.4(L) 3.8 - 5.0 g/dL 06/13/2024 4:14 AM EST [facility] AST 75(H) 10 - 35 U/L 06/13/2024 4:14 AM EST [facility] Alkaline Phosphatase 72 35 - 130 U/L 06/13/2024 4:14 AM EST [facility] Bilirubin, Total 0.2 <=1.2 mg/dL 06/13/2024 4:14 AM EST [facility] CALCIUM 7.7(L) 8.4 - 10.2 mg/dL 06/13/2024 4:14 AM EST [facility] Protein 5.1(L) 6.0 - 8.3 g/dL 06/13/2024 4:14 AM EST [facility] ALT 27 10 - 35 U/L 06/13/2024 4:14 AM EST [facility] Blood Venous blood specimen / Unknown Venipuncture / Unknown 06/13/2024 3:40 AM EST 06/13/2024 3:47 AM EST Noah Cynthia DO LAB BLOOD ORDERABLES Final Res ult Performing Organization Address City/[facility]/ZIP Co de Phone Number [facility] [address] [place] [address] * (ABNORMAL) APTT (06/13/2024 3:40 AM EST) aPTT 76(H) 21 - 38 seconds 06/13/2024 4:10 AM EST [facility] Blood Venous blood specimen / Unknown Venipuncture / Unknown 06/13/2024 3:40 AM EST 06/13/2024 3:47 AM EST Narrative [facility] - 06/13/2024 4:10 AM EST Anticoagulation may affect testing. Refer to [employer] Test Catalog for a list of effects. Noah Marie DO LAB BLOOD ORDERABLES Final Res ult Performing Organization Address [facility] Co de Phone Number [facility] [address] [place] [address] * (ABNORMAL) PT INR (06/13/2024 3:40 AM EST) Prothrombin Time 17.2(H) 11.6 - 15.2 seconds 06/13/2024 4:08 AM EST [facility] INR 1.4(H) 0.8 - 1.2 06/13/2024 4:08 AM EST [facility] Blood Venous blood specimen / Unknown Venipuncture / Unknown 06/13/2024 3:40 AM EST 06/13/2024 3:47 AM EST Narrative LABORATORY C - 06/13/2024 4:08 AM EST Warfarin Therapy INR: 2.0-3.0 conventional anticoagulation INR: 2.5-3.5 high intensity anticoagulation Noah Marie [facility] Spine LAB BLOOD ORDERABLES Final Res ult Performing Organization Address City/[facility]/ZIP Co de Phone Number [facility] [address] [place] [address] * (ABNORMAL) TRIGLYCERIDES (06/13/2024 3:40 AM EST) Triglycerides 251(H) <=174 mg/dL 06/13/2024 4:14 AM EST [facility] Comment: Triglyceride Reference Ranges (mg/dL): <150 Acceptable 150-174 Borderline high 175-499 High >=500 Very high Blood Venous blood specimen / Unknown Venipuncture / Unknown 06/13/2024 3:40 AM EST 06/13/2024 3:47 AM EST Noah Marie DO LAB BLOOD ORDERABLES Final Res ult [facility] [address] [place] [address] * (ABNORMAL) LD (06/13/2024 3:40 AM EST) LD 648(H) <=250 U/L 06/13/2024 4:14 AM EST [facility] Blood Venous blood specimen / Unknown Venipuncture / Unknown 06/13/2024 3:40 AM EST 06/13/2024 3:47 AM EST Noah Marie DO LAB BLOOD ORDERABLES Final Res ult Performing Organization Address City/[facility]/ZIP Co de Phone Number [facility] [address] [place] [address] * (ABNORMAL) FERRITIN (06/13/2024 3:40 AM EST) Pathologist [facility] Ferritin 5,506(H) 13 - 150 ng/mL 06/13/2024 5:00 AM EST [facility] Blood Venous blood specimen / Unknown Venipuncture / Unknown 06/13/2024 3:40 AM EST 06/13/2024 3:47 AM EST Noah Marie DO LAB BLOOD ORDERABLES Final Res ult [facility] [address] [place] [address] * (ABNORMAL) DIFFERENTIAL, AUTOMATED (06/12/2024 5:03 AM EST) WBC 14.60(H) 4.00 - 10.80 K/uL 06/12/2024 6:09 AM EST [facility] Neutrophils % 93.1(H) 40.0 - 75.0 % 06/12/2024 6:09 AM EST [facility] Lymphocytes % 4.2(L) 18.0 - 42.0 % 06/12/2024 6:09 AM EST [facility] Monocytes % 1.5 1.0 - 11.0 % 06/12/2024 6:09 AM EST [facility] Eosinophils % 0.0 0.0 - 6.0 % 06/12/2024 6:09 AM EST [facility] Basophils % 0.1 0.0 - 2.0 % 06/12/2024 6:09 AM EST [facility] Immature Granulocytes % 1.1 0.0 - 2.0 % 06/12/2024 6:09 AM EST [facility] Absolute Neutrophils 13.59(H) 1.80 - 7.70 K/uL 06/12/2024 6:09 AM EST [facility] Absolute Lymphocytes 0.62(L) 1.00 - 4.80 K/ul 06/12/2024 6:09 AM EST [facility] Absolute Monocytes 0.22 0.00 - 1.10 K/uL 06/12/2024 6:09 AM EST [facility] Absolute Eosinophils 0.00 0.00 - 0.70 K/uL 06/12/2024 6:09 AM EST [facility] Absolute Basophils 0.01 0.00 - 0.20 K/uL 06/12/2024 6:09 AM EST [facility] Absolute Immature Granulocytes 0.16 0.00 - 0.20 K/uL 06/12/2024 6:09 AM EST [facility] Blood Venous blood specimen / Unknown Venipuncture / Unknown 06/12/2024 5:03 AM EST 06/12/2024 5:56 AM EST us Flex Nunez MD LAB BLOOD ORDERABLES Final Resul t [facility] [address] [place] [address] * (ABNORMAL) CBC (06/12/2024 5:03 AM EST) WBC 14.60(H) 4.00 - 10.80 K/uL 06/12/2024 6:09 AM EST LABORATORY [facility] RBC 3.27 3.85 - 5.15 M/uL 06/12/2024 6:09 AM EST [facility] HGB 8.7(L) 12.0 - 15.3 g/dL 06/12/2024 6:09 AM EST [facility] HCT 28.0(L) 36.0 - 45.2 % 06/12/2024 6:09 AM EST [facility] MCV 85.6 81.5 - 97.5 fL 06/12/2024 6:09 AM EST [facility] MCH 26.6 27.0 - 34.0 pg 06/12/2024 6:09 AM EST [facility] MCHC 31.1 32.0 - 36.0 g/dL 06/12/2024 6:09 AM EST [facility] RDW 20.0 11.5 - 15.5 % 06/12/2024 6:09 AM EST [facility] PLT 353 140 - 400 K/uL 06/12/2024 6:09 AM EST [facility] MPV 9.2 6.6 - 11.1 fL 06/12/2024 6:09 AM EST [facility] nRBCs 0 <=0 /100 WBCs 06/12/2024 6:09 AM EST [facility] Blood Venous blood specimen / Unknown Venipuncture / Unknown 06/12/2024 5:03 AM EST 06/12/2024 5:56 AM EST us Flex Nunez MD LAB BLOOD ORDERABLES Final Resul t [facility] [address] [place] [address] * (ABNORMAL) PHOSPHORUS (06/12/2024 5:03 AM EST) Phosphorus 1.8(L) 2.5 - 4.8 mg/dL 06/12/2024 7:05 AM EST [facility] Blood Venous blood specimen / Unknown Venipuncture / Unknown 06/12/2024 5:03 AM EST 06/12/2024 5:56 AM EST Bhavin Bailon PA-C LAB BLOOD ORDERABLES Fin al Result Performing Organization Address City/[facility]/ZIP Co de Phone Number [facility] [address] [place] [address] * MAGNESIUM (06/12/2024 5:03 AM EST) Magnesium 2.0 1.5 - 2.6 mg/dL 06/12/2024 7:05 AM EST [facility] Blood Venous blood specimen / Unknown Venipuncture / Unknown 06/12/2024 5:03 AM EST 06/12/2024 5:56 AM EST Bhavin Bailon PA-C LAB BLOOD ORDERABLES Fin al Result Performing Organization Address City/[facility] de Phone Number [facility]ORY [facility] [address] [place] [address] * (ABNORMAL) COMPREHENSIVE METABOLIC PANEL (06/12/2024 5:03 AM EST) BUN 6 6 - 20 mg/dL 06/12/2024 7:05 AM EST [facility] CREATININE 0.3(L) 0.5 - 1.0 mg/dL 06/12/2024 7:05 AM EST [facility] EGFR >90 >=60 mL/min 06/12/2024 7:05 AM EST [facility] Comment:eGFR is calculated b ased on the CKD-EPI 2020 equation. SODIUM 134(L) 135 - 146 mmol/L 06/12/2024 7:05 AM EST [facility] POTASSIUM 3.9 3.5 - 5.1 mmol/L 06/12/2024 7:05 AM EST [facility] CHLORIDE 101 98 - 107 mmol/L 06/12/2024 7:05 AM EST [facility] CO2 24 22 - 32 mmol/L 06/12/2024 7:05 AM EST [facility] ANION GAP 9 7 - 15 mmol/L 06/12/2024 7:05 AM EST [facility] GLUCOSE 69(L) 70 - 120 mg/dL 06/12/2024 7:05 AM EST [facility] Albumin 2.5(L) 3.8 - 5.0 g/dL 06/12/2024 7:05 AM EST [facility] AST 88(H) 10 - 35 U/L 06/12/2024 7:05 AM EST [facility] Alkaline Phosphatase 74 35 - 130 U/L 06/12/2024 7:05 AM EST [facility] Bilirubin, Total 0.2 <=1.2 mg/dL 06/12/2024 7:05 AM EST [facility] CALCIUM 7.6(L) 8.4 - 10.2 mg/dL 06/12/2024 7:05 AM EST [facility] Protein 5.3(L) 6.0 - 8.3 g/dL 06/12/2024 7:05 AM EST [facility] ALT 32 10 - 35 U/L 06/12/2024 7:05 AM EST [facility] Blood Venous blood specimen / Unknown Venipuncture / Unknown 06/12/2024 5:03 AM EST 06/12/2024 5:56 AM EST Noah Marie DO LAB BLOOD ORDERABLES Final Res ult Performing Organization Address City/State/[facility] Co de Phone Number [facility]ATORY [facility] [address] [place] [address] * (ABNORMAL) APTT (06/12/2024 5:03 AM EST) aPTT 52(H) 21 - 38 seconds 06/12/2024 6:28 AM EST [facility] Blood Venous blood specimen / Unknown Venipuncture / Unknown 06/12/2024 5:03 AM EST 06/12/2024 5:56 AM EST Narrative [facility] - 06/12/2024 6:28 AM EST Anticoagulation may affect testing. Refer to [employer] Test Catalog for a list of effects. Noah Marie DO LAB BLOOD ORDERABLES Final Res ult Performing Organization Address City/State/[facility] Co de Phone Number [facility] [address] [place] [address] * (ABNORMAL) PT INR (06/12/2024 5:03 AM EST) Pathologist [facility] Prothrombin Time 18.7(H) 11.6 - 15.2 seconds 06/12/2024 6:25 AM EST [facility] INR 1.5(H) 0.8 - 1.2 06/12/2024 6:25 AM EST [facility] Blood Venous blood specimen / Unknown Venipuncture / Unknown 06/12/2024 5:03 AM EST 06/12/2024 5:56 AM EST Narrative [facility] - 06/12/2024 6:25 AM EST Warfarin Therapy INR: 2.0-3.0 conventional anticoagulation INR: 2.5-3.5 high intensity anticoagulation Noah Marie DO LAB BLOOD ORDERABLES Final Res ult Performing Organization Address [facility] de Phone Number [facility]ORY [facility] [address] [place] [address] * (ABNORMAL) TRIGLYCERIDES (06/12/2024 5:03 AM EST) Pathologist [facility] Triglycerides 260(H) <=174 mg/dL 06/12/2024 7:05 AM EST [facility] Comment: Triglyceride Reference Ranges (mg/dL): <150 Acceptable 150-174 Borderline high 175-499 High >=500 Very high Blood Venous blood specimen / Unknown Venipuncture / Unknown 06/12/2024 5:03 AM EST 06/12/2024 5:56 AM EST Noah Marie DO LAB BLOOD ORDERABLES Final Res ult Performing Organization Address [facility] Co de Phone Number [facility] [address] [place] [address] * (ABNORMAL) LD (06/12/2024 5:03 AM EST) Pathologist [facility] LD 600(H) <=250 U/L 06/12/2024 7:05 AM EST [facility] Blood Venous blood specimen / Unknown Venipuncture / Unknown 06/12/2024 5:03 AM EST 06/12/2024 5:56 AM EST Noah Marie LAB BLOOD ORDERABLES Final Res ult Performing Organization Address [facility] de Phone Number [facility] [address] [place] [address] * (ABNORMAL) FERRITIN (06/12/2024 5:03 AM EST) Ferritin 5,773(H) 13 - 150 ng/mL 06/12/2024 9:48 AM EST [facility] Blood Venous blood specimen / Unknown Venipuncture / Unknown 06/12/2024 5:03 AM EST 06/12/2024 5:56 AM EST Noah Marie LAB BLOOD ORDERABLES Final Res ult Performing Organization Address [facility] Phone Number [facility] [address] [place] [address] * (ABNORMAL) CALCIUM, IONIZED (06/11/2024 10:45 PM EST) Pathologist [facility] Calcium, Ionized 1.12(L) 1.13 - 1.32 mmol/L 06/11/2024 10:59 PM EST [facility] Comment:This test was develo ped and its performance characteristics dtermined by [email or web address]. It has not been cleared or approved by the [place] Food and Drug Administration Blood Venous blood specimen / Unknown Venipuncture / Unknown 06/11/2024 10:45 PM EST 06/11/2024 10:51 PM EST Deanna Mandel DO LAB BLOOD ORDERABLES Fin al Result Performing Organization Address [facility] Co de Phone Number [facility] [address] [place] [address] * (ABNORMAL) CALCIUM, IONIZED (06/11/2024 3:14 PM EST) Calcium, Ionized 1.09(L) 1.13 - 1.32 mmol/L 06/11/2024 4:17 PM EST [facility] Comment:This test was develo ped and its performance characteristics dtermined by [email or web address]. It has not been cleared or approved by the [place] Food and Drug Administration Blood Venous blood specimen / Unknown Venipuncture / Unknown 06/11/2024 3:14 PM EST 06/11/2024 3:21 PM EST Toney Redmond MD LAB BLOOD ORDERABLES Final Re sult [facility] [address] [place] [address] * CT ABD/PELVIS W IV CONTRAST - WO ORAL CONTRAST (06/11/2024 11:47 AM EST) Anatomical Region Laterality Modality Body, Abdomen, Pelvis Computed T omography 06/11/2024 1:21 PM EST Impressions 06/11/2024 1:18 PM EST IMPRESSION 1. Findings compatible with interstitial pancreatitis. 2. Moderate volume ascites. Mild peritoneal thickening may represent peritonitis. 3. Moderate bilateral pleural effusions. Narrative 06/11/2024 1:18 PM EST EXAM EXAM: CT ABD/PELVIS W IV CONTRAST - WO ORAL CONTRAST DATE and TIME: 06/11/2024 11:47 am HISTORY CLINICAL INFORMATION: abd pain, recent ileus and gallstone pancreatitis TECHNIQUE Oral Contrast: None. IV Contrast: Intravenous contrast was administered COMPARISON XR ABDOMEN 1 VIEW, ACC: [id number], dated 2024-06-10 15:52:19; CT ABD_PELVIS W IV CONTRAST - WO ORAL CONTRAST, ACC: [id number], dated 2024-06-02 15:28:33 FINDINGS LINES AND DEVICES: None LOWER CHEST:Moderate bilateral pleural effusions and bibasilar atelectasis. The heart is normal in size without pericardial effusion. ABDOMEN/PELVIS: LIVER: The liver is enlarged measuring 21.7 cm in length. There is no focal suspicious abnormality. GALLBLADDER: Unremarkable CT appearance of the gallbladder. BILE DUCTS: No intrahepatic or extrahepatic bile duct dilatation. PANCREAS: The pancreas, particularly the pancreatic head appears slightly enlarged and edematous compatible with interstitial pancreatitis. SPLEEN: Normal in size without focal lesion. ADRENALS: Normal. KIDNEYS/URETERS: The kidneys are normal in size without hydronephrosis or suspicious mass. BLADDER: Unremarkable. REPRODUCTIVE ORGANS: Unremarkable. BOWEL: The small and large bowel is normal in caliber without wall thickening or associated inflammation. The appendix is normal. LYMPH NODES: There are no enlarged or suspicious abdominal or pelvic lymph nodes. VESSELS: The aorta and the origins of its branches are patent and normal in caliber. The portal venous system is grossly patent. PERITONEUM/RETROPERITONEUM: Moderate ascites. No organized collection or pneumoperitoneum. Mild peritoneal thickening. ABDOMINAL WALL/SOFT TISSUES: Mild subcutaneous edema. BONES: Unremarkable. Procedure Note Eduardo Leija MD - 06/11/2024 EXAM EXAM: CT ABD/PELVIS W IV CONTRAST - WO ORAL CONTRAST DATE and TIME: 06/11/2024 11:47 am HISTORY CLINICAL INFORMATION: abd pain, recent ileus and gallstone pancreatitis TECHNIQUE Oral Contrast: None. IV Contrast: Intravenous contrast was administered COMPARISON XR ABDOMEN 1 VIEW, ACC: [id number], dated 2024-06-10 15:52:19; CT ABD_PELVIS W IV CONTRAST - WO ORAL CONTRAST, ACC: [id number], [id number] 15:28:33 FINDINGS LINES AND DEVICES: None LOWER CHEST:Moderate bilateral pleural effusions and bibasilaratelectasis. The heart is normal in size without pericardial effusion. ABDOMEN/PELVIS: LIVER: The liver is enlarged measuring 21.7 cm in length. There is nofocal suspicious abnormality. GALLBLADDER: Unremarkable CT appearance of the gallbladder. BILE DUCTS: No intrahepatic or extrahepatic bile duct dilatation. PANCREAS: The pancreas, particularly the pancreatic head appears slightlyenlarged and edematous compatible with interstitial pancreatitis. SPLEEN: Normal in size without focal lesion. ADRENALS: Normal. KIDNEYS/URETERS: The kidneys are normal in size without hydronephrosis orsuspicious mass. BLADDER: Unremarkable. REPRODUCTIVE ORGANS: Unremarkable. BOWEL: The small and large bowel is normal in caliber without wallthickening or associated inflammation. The appendix is normal. LYMPH NODES: There are no enlarged or suspicious abdominal or pelvic lymphnodes. VESSELS: The aorta and the origins of its branches are patent and normalin caliber. The portal venous system is grossly patent. PERITONEUM/RETROPERITONEUM: Moderate ascites. No organized collection orpneumoperitoneum. Mild peritoneal thickening. ABDOMINAL WALL/SOFT TISSUES: Mild subcutaneous edema. BONES: Unremarkable. IMPRESSION IMPRESSION 1. Findings compatible with interstitial pancreatitis. 2. Moderate volume ascites. Mild peritoneal thickening may representperitonitis. 3. Moderate bilateral pleural effusions. Deanna Mandel DO RAD CT Final Re sult * (ABNORMAL) CALCIUM, IONIZED (06/11/2024 9:01 AM EST) Calcium, Ionized 1.08(L) 1.13 - 1.32 mmol/L 06/11/2024 9:43 AM EST [facility] Comment:This test was develo ped and its performance characteristics dtermined by [email or web address]. It has not been cleared or approved by the [place] Food and Drug Administration Blood Venous blood specimen / Unknown Venipuncture / Unknown 06/11/2024 9:01 AM EST 06/11/2024 9:26 AM EST Toney Redmond MD LAB BLOOD ORDERABLES Final Re sult [facility] [address] [place] [address] * (ABNORMAL) DIFFERENTIAL, TECHNOLOGIST REVIEW (06/11/2024 4:35 AM EST) WBC 13.05(H) 4.00 - 10.80 K/uL 06/11/2024 5:47 AM EST [facility] Neutrophils % 99.0(H) 40.0 - 75.0 % 06/11/2024 5:47 AM EST [facility] Lymphocytes % 1.0(L) 18.0 - 42.0 % 06/11/2024 5:47 AM EST [facility] Absolute Neutrophils 12.92(H) 1.80 - 7.70 K/uL 06/11/2024 5:47 AM EST [facility] Absolute Lymphocytes 0.13(L) 1.00 - 4.80 K/uL 06/11/2024 5:47 AM EST [facility] Blood Venous blood specimen / Unknown Venipuncture / Unknown 06/11/2024 4:35 AM EST 06/11/2024 5:01 AM EST us Flex Nunez MD LAB BLOOD ORDERABLES Final Resul t Performing Organization Address City/[facility] Co de Phone Number [facility] [address] [place] [address] * DIFFERENTIAL, AUTOMATED (06/11/2024 4:35 AM EST) Blood Venous blood specimen / Unknown Venipuncture / Unknown 06/11/2024 4:35 AM EST 06/11/2024 5:01 AM EST us Flex Nunez MD LAB BLOOD ORDERABLES Final Resul t Performing Organization Address [facility] Co de Phone Number [facility] [address] [place] [address] * (ABNORMAL) CBC (06/11/2024 4:35 AM EST) WBC 13.05(H) 4.00 - 10.80 K/uL 06/11/2024 5:18 AM EST [facility] RBC 3.04 3.85 - 5.15 M/uL 06/11/2024 5:18 AM EST [facility] HGB 8.2(L) 12.0 - 15.3 g/dL 06/11/2024 5:18 AM EST LAB[facility]ATORY [facility] HCT 26.1(L) 36.0 - 45.2 % 06/11/2024 5:18 AM EST LAB[facility] MCV 85.9 81.5 - 97.5 fL 06/11/2024 5:18 AM EST LAB[facility]ATORY [facility] MCH 27.0 27.0 - 34.0 pg 06/11/2024 5:18 AM EST LAB[facility] MCHC 31.4 32.0 - 36.0 g/dL 06/11/2024 5:18 AM EST LAB[facility] RDW 20.4 11.5 - 15.5 % 06/11/2024 5:18 AM EST LAB[facility]ATORY [facility] PLT 305 140 - 400 K/uL 06/11/2024 5:18 AM EST LAB[facility]ATORY [facility] MPV 8.8 6.6 - 11.1 fL 06/11/2024 5:18 AM EST LAB[facility]ATORY [facility] nRBCs 0 <=0 /100 WBCs 06/11/2024 5:18 AM EST LAB[facility]ATORY [facility] Blood Venous blood specimen / Unknown Venipuncture / Unknown 06/11/2024 4:35 AM EST 06/11/2024 5:01 AM EST Flex Nunez MD LAB BLOOD ORDERABLES Final Resul t Performing Organization Address City/[facility]/ZIP Co de Phone Number LABORATORY C [address] [place] [address] * (ABNORMAL) PHOSPHORUS (06/11/2024 4:35 AM EST) Phosphorus 1.7(L) 2.5 - 4.8 mg/dL 06/11/2024 5:33 AM EST LAB[facility]ATORY [facility] Blood Venous blood specimen / Unknown Venipuncture / Unknown 06/11/2024 4:35 AM EST 06/11/2024 5:01 AM EST Bhavin Bailon PA-C LAB BLOOD ORDERABLES Fin al Result Performing Organization Address [facility] Co de Phone Number [facility]ATORY [facility] [address] [place] [address] * MAGNESIUM (06/11/2024 4:35 AM EST) Magnesium 2.1 1.5 - 2.6 mg/dL 06/11/2024 5:33 AM EST LAB[facility]ATORY [facility] Blood Venous blood specimen / Unknown Venipuncture / Unknown 06/11/2024 4:35 AM EST 06/11/2024 5:01 AM EST Bhavin Bailon PA-C LAB BLOOD ORDERABLES Fin al Result Performing Organization Address City/[facility] Co de Phone Number [facility]ATORY [facility] [address] [place] [address] * (ABNORMAL) COMPREHENSIVE METABOLIC PANEL (06/11/2024 4:35 AM EST) BUN 6 6 - 20 mg/dL 06/11/2024 5:33 AM EST LAB[facility]ATORY [facility] CREATININE 0.3(L) 0.5 - 1.0 mg/dL 06/11/2024 5:33 AM EST LAB[facility]ATORY [facility] EGFR >90 >=60 mL/min 06/11/2024 5:33 AM EST LAB[facility]ATORY [facility] Comment:eGFR is calculated b ased on the CKD-EPI 2020 equation. SODIUM 136 135 - 146 mmol/L 06/11/2024 5:33 AM EST LAB[facility]ATORY [facility] POTASSIUM 4.1 3.5 - 5.1 mmol/L 06/11/2024 5:33 AM EST LAB[facility]AT[facility] CHLORIDE 104 98 - 107 mmol/L 06/11/2024 5:33 AM EST LAB[facility]ATORY [facility] CO2 23 22 - 32 mmol/L 06/11/2024 5:33 AM EST LAB[facility]ATORY [facility] ANION GAP 9 7 - 15 mmol/L 06/11/2024 5:33 AM EST LAB[facility]ATORY [facility] GLUCOSE 77 70 - 120 mg/dL 06/11/2024 5:33 AM EST LAB[facility]ATORY [facility] Albumin 2.4(L) 3.8 - 5.0 g/dL 06/11/2024 5:33 AM EST LAB[facility]ATORY [facility] AST 92(H) 10 - 35 U/L 06/11/2024 5:33 AM EST LAB[facility]ATORY [facility] Alkaline Phosphatase 66 35 - 130 U/L 06/11/2024 5:33 AM EST LAB[facility]ATORY [facility] Bilirubin, Total 0.3 <=1.2 mg/dL 06/11/2024 5:33 AM EST LAB[facility]ATORY [facility] CALCIUM 7.1(L) 8.4 - 10.2 mg/dL 06/11/2024 5:33 AM EST LAB[facility]ATORY [facility] Protein 5.0(L) 6.0 - 8.3 g/dL 06/11/2024 5:33 AM EST LAB[facility]ATORY [facility] ALT 33 10 - 35 U/L 06/11/2024 5:33 AM EST LAB[facility]ATORY [facility] Blood Venous blood specimen / Unknown Venipuncture / Unknown 06/11/2024 4:35 AM EST 06/11/2024 5:01 AM EST us Noah Marie DO LAB BLOOD ORDERABLES Final Res ult Performing Organization Address [facility]/ZIP Co de Phone Number LAB[facility]ATORY [facility] [address] [place] [address] * (ABNORMAL) APTT (06/11/2024 4:35 AM EST) aPTT 50(H) 21 - 38 seconds 06/11/2024 5:30 AM EST [facility] Blood Venous blood specimen / Unknown Venipuncture / Unknown 06/11/2024 4:35 AM EST 06/11/2024 5:01 AM EST Narrative LAB[facility]ATORY [facility] - 06/11/2024 5:30 AM EST Anticoagulation may affect testing. Refer to [employer] Test Catalog for a list of effects. Noah Marie DO LAB BLOOD ORDERABLES Final Res ult Performing Organization Address [facility] Co de Phone Number LAB[facility]ATORY [facility] [address] [place] [address] * (ABNORMAL) PT INR (06/11/2024 4:35 AM EST) Prothrombin Time 18.4(H) 11.6 - 15.2 seconds 06/11/2024 5:27 AM EST LABORATORY C INR 1.5(H) 0.8 - 1.2 06/11/2024 5:27 AM EST [facility] Blood Venous blood specimen / Unknown Venipuncture / Unknown 06/11/2024 4:35 AM EST 06/11/2024 5:01 AM EST Narrative LAB[facility]ATORY [facility] - 06/11/2024 5:27 AM EST Warfarin Therapy INR: 2.0-3.0 conventional anticoagulation INR: 2.5-3.5 high intensity anticoagulation Noah Marie DO LAB BLOOD ORDERABLES Final Res ult Performing Organization Address City/[facility]/ZIP Co de Phone Number LAB[facility]ATORY [facility] [address] [place] [address] * (ABNORMAL) TRIGLYCERIDES (06/11/2024 4:35 AM EST) Triglycerides 217(H) <=174 mg/dL 06/11/2024 5:33 AM EST LAB[facility]ATORY [facility] Comment: Triglyceride Reference Ranges (mg/dL): <150 Acceptable 150-174 Borderline high 175-499 High >=500 Very high Blood Venous blood specimen / Unknown Venipuncture / Unknown 06/11/2024 4:35 AM EST 06/11/2024 5:01 AM EST Noah Marie DO LAB BLOOD ORDERABLES Final Res ult LAB[facility]ATORY [facility] [address] [place] [address] * (ABNORMAL) LD (06/11/2024 4:35 AM EST) LD 613(H) <=250 U/L 06/11/2024 5:33 AM EST [facility] Blood Venous blood specimen / Unknown Venipuncture / Unknown 06/11/2024 4:35 AM EST 06/11/2024 5:01 AM EST Noah Marie DO LAB BLOOD ORDERABLES Final Res ult Performing Organization Address [facility] Co de Phone Number LAB[facility]ATORY [facility] [address] [place] [address] * (ABNORMAL) FERRITIN (06/11/2024 4:35 AM EST) Pathologist [facility] Ferritin 5,686(H) 13 - 150 ng/mL 06/11/2024 6:23 AM EST LAB[facility]ATORY [facility] Blood Venous blood specimen / Unknown Venipuncture / Unknown 06/11/2024 4:35 AM EST 06/11/2024 5:01 AM EST Noah Marie DO LAB BLOOD ORDERABLES Final Res ult Performing Organization Address City/[facility]/ZIP Co de Phone Number LABORATORY [facility] [address] [place] [address] * (ABNORMAL) CALCIUM, IONIZED (06/10/2024 11:54 PM EST) Calcium, Ionized 1.08(L) 1.13 - 1.32 mmol/L 06/11/2024 12:34 AM EST [facility]ORY [facility] Comment:This test was develo ped and its performance characteristics dtermined by [email or web address]. It has not been cleared or approved by the [place] Food and Drug Administration Blood Venous blood specimen / Unknown Venipuncture / Unknown 06/10/2024 11:54 PM EST 06/11/2024 12:14 AM EST Toney Redmond MD LAB BLOOD ORDERABLES Final Re sult LAB[facility]ATORY [facility] [address] [place] [address] * XR ABDOMEN 1 VIEW (06/10/2024 4:07 PM EST) Anatomical Region Laterality Modality Abdomen, Pelvis Computed Radiogr aphy 06/10/2024 4:20 PM EST Impressions 06/10/2024 4:18 PM EST IMPRESSION Normal bowel gas pattern. Narrative 06/10/2024 4:18 PM EST EXAM XR ABDOMEN 1 VIEW-06/10/2024 4:07 pm HISTORY follow up ileus COMPARISON Abdominal radiograph 06/08/2024. TECHNIQUE AP supine radiograph of the abdomen. FINDINGS Bowel gas pattern is within normal limits. No appreciable stool burden. No obstruction, discrete portal venous gas or free air. Osseous structures appear intact. Procedure Note Maulik Mckeon MD - 06/10/2024 EXAM XR ABDOMEN 1 VIEW-06/10/2024 4:07 pm HISTORY follow up ileus COMPARISON Abdominal radiograph 06/08/2024. TECHNIQUE AP supine radiograph of the abdomen. FINDINGS Bowel gas pattern is within normal limits. No appreciable stool burden.No obstruction, discrete portal venous gas or free air. Osseousstructures appear intact. IMPRESSION IMPRESSION Normal bowel gas pattern. Deanna Mandel DO RADIOLOGY (RAD GENERAL) Final Result * (ABNORMAL) CALCIUM, IONIZED (06/10/2024 3:22 PM EST) Calcium, Ionized 1.00(L) 1.13 - 1.32 mmol/L 06/10/2024 3:53 PM EST LAB[facility]ATORY [facility] Comment:This test was develo ped and its performance characteristics dtermined by [email or web address]. It has not been cleared or approved by the [place] Food and Drug Administration Blood Venous blood specimen / Unknown Venipuncture / Unknown 06/10/2024 3:22 PM EST 06/10/2024 3:28 PM EST Toney Redmond MD LAB BLOOD ORDERABLES Final Re sult Performing Organization Address City/[facility]/ZIP Co de Phone Number LABORATORY [address] [address] * MRSA SCREEN, PCR (06/10/2024 3:17 PM EST) Pathologist [facility] MRSA PCR Result Negative Negative 5:54 PM EST LABORATORY [facility] Comment:No Methicillin resis tant Staphylococcus aureus detected by PCR (amplified probe). Upper Respiratory Swab of internal nose / Unknown Non-blood Collection / Unknown 06/10/2024 3:17 PM EST 06/10/2024 4:21 PM EST Deanna Mandel DO LAB MICRO - GENERAL ORDE RABLES Final Result Performing Organization Address City/[facility]/ZIP Co de Phone Number LABORATORY [place] [address] [place] [address] * (ABNORMAL) CALCIUM, IONIZED (06/10/2024 8:58 AM EST) Calcium, Ionized 1.05(L) 1.13 - 1.32 mmol/L 06/10/2024 9:22 AM EST LAB[facility]ATORY [facility] Comment:This test was develo ped and its performance characteristics dtermined by [email or web address]. It has not been cleared or approved by the US Food and Drug Administration Blood Venous blood specimen / Unknown Venipuncture / Unknown 06/10/2024 8:58 AM EST 06/10/2024 9:07 AM EST us Toney Redmond MD LAB BLOOD ORDERABLES Final Re sult LAB[facility]ATORY [facility] [address] [place] [address] * (ABNORMAL) DIFFERENTIAL, AUTOMATED (06/10/2024 4:01 AM EST) WBC 10.12 4.00 - 10.80 K/uL 06/10/2024 4:30 AM EST LAB[facility]ATORY [facility] Neutrophils % 92.4(H) 40.0 - 75.0 % 06/10/2024 4:30 AM EST LAB[facility]ATORY [facility] Lymphocytes % 5.4(L) 18.0 - 42.0 % 06/10/2024 4:30 AM EST LAB[facility]ATORY [facility] Monocytes % 1.0 1.0 - 11.0 % 06/10/2024 4:30 AM EST LAB[facility]ATORY [facility] Eosinophils % 0.0 0.0 - 6.0 % 06/10/2024 4:30 AM EST LAB[facility]ATORY [facility] Basophils % 0.0 0.0 - 2.0 % 06/10/2024 4:30 AM EST LAB[facility]ATORY [facility] Immature Granulocytes % 1.2 0.0 - 2.0 % 06/10/2024 4:30 AM EST LAB[facility]ATORY [facility] Absolute Neutrophils 9.35(H) 1.80 - 7.70 K/uL 06/10/2024 4:30 AM EST LABORATORY [facility] Absolute Lymphocytes 0.55(L) 1.00 - 4.80 K/ul 06/10/2024 4:30 AM EST LABORATORY [facility] Absolute Monocytes 0.10 0.00 - 1.10 K/uL 06/10/2024 4:30 AM EST LABORATORY [facility] Absolute Eosinophils 0.00 0.00 - 0.70 K/uL 06/10/2024 4:30 AM EST LAB[facility]ATORY [facility] Absolute Basophils 0.00 0.00 - 0.20 K/uL 06/10/2024 4:30 AM EST LABORATORY [facility] Absolute Immature Granulocytes 0.12 0.00 - 0.20 K/uL 06/10/2024 4:30 AM EST LAB[facility]ATORY [facility] Blood Venous blood specimen / Unknown Venipuncture / Unknown 06/10/2024 4:01 AM EST 06/10/2024 4:20 AM EST us Flex Nunez MD LAB BLOOD ORDERABLES Final Resul t LABORATORY [facility] [address] [facility] [place] [address] * (ABNORMAL) CBC (06/10/2024 4:01 AM EST) WBC 10.12 4.00 - 10.80 K/uL 06/10/2024 4:30 AM EST LABORATORY [facility] RBC 3.39 3.85 - 5.15 M/uL 06/10/2024 4:30 AM EST LAB[facility]ATORY [facility] HGB 9.1(L) 12.0 - 15.3 g/dL 06/10/2024 4:30 AM EST LAB[facility]ATORY [facility] HCT 28.8(L) 36.0 - 45.2 % 06/10/2024 4:30 AM EST LAB[facility]ATORY [facility] MCV 85.0 81.5 - 97.5 fL 06/10/2024 4:30 AM EST LAB[facility]ATORY [facility] MCH 26.8 27.0 - 34.0 pg 06/10/2024 4:30 AM EST LAB[facility]ATORY [facility] MCHC 31.6 32.0 - 36.0 g/dL 06/10/2024 4:30 AM EST LAB[facility]ATORY [facility] RDW 20.0 11.5 - 15.5 % 06/10/2024 4:30 AM EST LABORATORY [facility] PLT 305 140 - 400 K/uL 06/10/2024 4:30 AM EST LAB[facility]ATORY [facility] MPV 8.8 6.6 - 11.1 fL 06/10/2024 4:30 AM EST LABORATORY [facility] nRBCs 0 <=0 /100 WBCs 06/10/2024 4:30 AM EST LAB[facility]ATORY [facility] Blood Venous blood specimen / Unknown Venipuncture / Unknown 06/10/2024 4:01 AM EST 06/10/2024 4:20 AM EST us Flex Nunez MD LAB BLOOD ORDERABLES Final Resul t LABORATORY [facility] [address] [place] [address] * (ABNORMAL) PHOSPHORUS (06/10/2024 4:01 AM EST) Phosphorus 1.7(L) 2.5 - 4.8 mg/dL 06/10/2024 5:39 AM EST LABORATORY C Blood Venous blood specimen / Unknown Venipuncture / Unknown 06/10/2024 4:01 AM EST 06/10/2024 4:20 AM EST Bhavin Bailon PA-C LAB BLOOD ORDERABLES Fin al Result LABORATORY [address] [address] * MAGNESIUM (06/10/2024 4:01 AM EST) Magnesium 2.3 1.5 - 2.6 mg/dL 06/10/2024 5:39 AM EST [facility]ORY [facility] Blood Venous blood specimen / Unknown Venipuncture / Unknown 06/10/2024 4:01 AM EST 06/10/2024 4:20 AM EST Bhavin Bailon PA-C LAB BLOOD ORDERABLES Fin al Result Performing Organization Address City/[facility]/ZIP Co de Phone Number LABORATORY [address] [address] * (ABNORMAL) COMPREHENSIVE METABOLIC PANEL (06/10/2024 4:01 AM EST) BUN 7 6 - 20 mg/dL 06/10/2024 5:39 AM EST LAB[facility]ATORY [facility] CREATININE 0.3(L) 0.5 - 1.0 mg/dL 06/10/2024 5:39 AM EST LABORATORY GM EGFR >90 >=60 mL/min 06/10/2024 5:39 AM EST [facility]ORY [facility] Comment:eGFR is calculated b ased on the CKD-EPI 2020 equation. SODIUM 139 135 - 146 mmol/L 06/10/2024 5:39 AM EST LABORATORY [facility] POTASSIUM 3.2(L) 3.5 - 5.1 mmol/L 06/10/2024 5:39 AM EST LAB[facility]ATORY [facility] CHLORIDE 107 98 - 107 mmol/L 06/10/2024 5:39 AM EST LAB[facility]ATORY [facility] CO2 22 22 - 32 mmol/L 06/10/2024 5:39 AM EST LAB[facility]ATORY [facility] ANION GAP 10 7 - 15 mmol/L 06/10/2024 5:39 AM EST LAB[facility]ATORY [facility] GLUCOSE 81 70 - 120 mg/dL 06/10/2024 5:39 AM EST LABORATORY [facility] Albumin 2.6(L) 3.8 - 5.0 g/dL 06/10/2024 5:39 AM EST LABORATORY [facility] AST 120(H) 10 - 35 U/L 06/10/2024 5:39 AM EST LAB[facility]ATORY [facility] Alkaline Phosphatase 65 35 - 130 U/L 06/10/2024 5:39 AM EST LAB[facility]ATORY [facility] Bilirubin, Total 0.3 <=1.2 mg/dL 06/10/2024 5:39 AM EST LAB[facility]ATORY [facility] CALCIUM 6.5(L) 8.4 - 10.2 mg/dL 06/10/2024 5:39 AM EST LAB[facility]ATORY [facility] Protein 5.2(L) 6.0 - 8.3 g/dL 06/10/2024 5:39 AM EST LABORATORY [facility] ALT 39(H) 10 - 35 U/L 06/10/2024 5:39 AM EST LAB[facility]ATORY [facility] Blood Venous blood specimen / Unknown Venipuncture / Unknown 06/10/2024 4:01 AM EST 06/10/2024 4:20 AM EST Noah Marie DO LAB BLOOD ORDERABLES Final Res ult [facility]ORY [facility] [address] [place] [address] * (ABNORMAL) APTT (06/10/2024 4:01 AM EST) aPTT 108(H) 21 - 38 seconds 06/10/2024 4:53 AM EST LAB[facility]ATORY [facility] Blood Venous blood specimen / Unknown Venipuncture / Unknown 06/10/2024 4:01 AM EST 06/10/2024 4:20 AM EST Narrative LAB[facility]ATORY [facility] - 06/10/2024 4:53 AM EST Anticoagulation may affect testing. Refer to [employer] Test Catalog for a list of effects. Noah Marie [employer] [facility] LAB BLOOD ORDERABLES Final Res ult Performing Organization Address [facility] de Phone Number LABORATORY [facility] [address] [place] [address] * (ABNORMAL) PT INR (06/10/2024 4:01 AM EST) Prothrombin Time 19.9(H) 11.6 - 15.2 seconds 06/10/2024 4:43 AM EST LAB[facility]ORY [facility] INR 1.7(H) 0.8 - 1.2 06/10/2024 4:43 AM EST [facility] Blood Venous blood specimen / Unknown Venipuncture / Unknown 06/10/2024 4:01 AM EST 06/10/2024 4:20 AM EST Narrative LAB[facility]ATORY [facility] - 06/10/2024 4:43 AM EST Warfarin Therapy INR: 2.0-3.0 conventional anticoagulation INR: 2.5-3.5 high intensity anticoagulation Noah Marie DO LAB BLOOD ORDERABLES Final Res ult Performing Organization Address [facility] de Phone Number LABORATORY [facility] [address] [place] [address] * (ABNORMAL) TRIGLYCERIDES (06/10/2024 4:01 AM EST) Triglycerides 230(H) <=174 mg/dL 06/10/2024 5:29 AM EST LAB[facility]ATORY [facility] Comment: Triglyceride Reference Ranges (mg/dL): <150 Acceptable 150-174 Borderline high 175-499 High >=500 Very high Blood Venous blood specimen / Unknown Venipuncture / Unknown 06/10/2024 4:01 AM EST 06/10/2024 4:20 AM EST Noah Cynthia DO LAB BLOOD ORDERABLES Final Res ult Performing Organization Address City/[facility]/ZIP Co de Phone Number LABORATORY [facility] [address] [place] [address] * (ABNORMAL) LD (06/10/2024 4:01 AM EST) LD 695(H) <=250 U/L 06/10/2024 5:29 AM EST [facility] Blood Venous blood specimen / Unknown Venipuncture / Unknown 06/10/2024 4:01 AM EST 06/10/2024 4:20 AM EST Noah Marie DO LAB BLOOD ORDERABLES Final Res ult Performing Organization Address [facility]/ZIP Co de Phone Number LABORATORY [address] [address] * (ABNORMAL) FERRITIN (06/10/2024 4:01 AM EST) Ferritin 6,321(H) 13 - 150 ng/mL 06/10/2024 10:00 AM EST [facility]ORY [facility] Blood Venous blood specimen / Unknown Venipuncture / Unknown 06/10/2024 4:01 AM EST 06/10/2024 4:20 AM EST Noah Marie DO LAB BLOOD ORDERABLES Final Res ult Performing Organization Address City/[facility] de Phone Number LABORATORY [address] [address] * (ABNORMAL) CALCIUM, IONIZED (06/10/2024 12:07 AM EST) Calcium, Ionized 0.98(L) 1.13 - 1.32 mmol/L 06/10/2024 12:48 AM EST [facility]ORY [facility] Comment:This test was develo ped and its performance characteristics dtermined by [email or web address]. It has not been cleared or approved by the [place] Food and Drug Administration Blood Venous blood specimen / Unknown Venipuncture / Unknown 06/10/2024 12:07 AM EST 06/10/2024 12:17 AM EST Toney Redmond MD LAB BLOOD ORDERABLES Final Re sult Performing Organization Address [facility] Co de Phone Number LABORATORY [facility] [address] [place] [address] * (ABNORMAL) CALCIUM, IONIZED (06/09/2024 3:28 PM EST) Calcium, Ionized 1.04(L) 1.13 - 1.32 mmol/L 06/09/2024 3:46 PM EST [facility]ORY [facility] Comment:This test was develo ped and its performance characteristics dtermined by [email or web address]. It has not been cleared or approved by the [place] Food and Drug Administration Blood Venous blood specimen / Unknown Venipuncture / Unknown 06/09/2024 3:28 PM EST 06/09/2024 3:34 PM EST Bhavin Bailon PA-C LAB BLOOD ORDERABLES Fin al Result Performing Organization Address [facility] Phone Number LABORATORY [facility] [address] [place] [address] * (ABNORMAL) CALCIUM, IONIZED (06/09/2024 11:43 AM EST) Calcium, Ionized 1.05(L) 1.13 - 1.32 mmol/L 06/09/2024 12:17 PM EST [facility]ORY [facility] Comment:This test was develo ped and its performance characteristics dtermined by [email or web address]. It has not been cleared or approved by the [place] Food and Drug Administration Blood Venous blood specimen / Unknown Venipuncture / Unknown 06/09/2024 11:43 AM EST 06/09/2024 11:54 AM EST Bhavin Bailon PA-C LAB BLOOD ORDERABLES Fin al Result Performing Organization Address City/[facility] Co de Phone Number LABORATORY [facility] [address] [place] [address] * (ABNORMAL) CALCIUM, IONIZED (06/09/2024 7:59 AM EST) Calcium, Ionized 0.91(L) 1.13 - 1.32 mmol/L 06/09/2024 8:57 AM EST [facility]ORY [facility] Comment:This test was develo ped and its performance characteristics dtermined by [email or web address]. It has not been cleared or approved by the [place] Food and Drug Administration Blood Venous blood specimen / Unknown Venipuncture / Unknown 06/09/2024 7:59 AM EST 06/09/2024 8:07 AM EST Bhavin Bailon PA-C LAB BLOOD ORDERABLES Fin al Result Performing Organization Address [facility] Co de Phone Number LABORATORY [place] [address] [place] [address] * (ABNORMAL) APTT (06/09/2024 7:59 AM EST) aPTT 83(H) 21 - 38 seconds 06/09/2024 8:53 AM EST [facility] Blood Venous blood specimen / Unknown Venipuncture / Unknown 06/09/2024 7:59 AM EST 06/09/2024 8:12 AM EST Narrative LAB[facility] - 06/09/2024 8:53 AM EST Anticoagulation may affect testing. Refer to [employer] Test Catalog for a list of effects. Noah Marie DO LAB BLOOD ORDERABLES Final Res ult Performing Organization Address City/[facility] Co de Phone Number LABORATORY [place] [address] [place] [address] * (ABNORMAL) PT INR (06/09/2024 7:59 AM EST) Prothrombin Time 19.4(H) 11.6 - 15.2 seconds 06/09/2024 8:35 AM EST LABORATORY C INR 1.6(H) 0.8 - 1.2 06/09/2024 8:35 AM EST [facility] Blood Venous blood specimen / Unknown Venipuncture / Unknown 06/09/2024 7:59 AM EST 06/09/2024 8:12 AM EST Narrative LAB[facility] - 06/09/2024 8:35 AM EST Warfarin Therapy INR: 2.0-3.0 conventional anticoagulation INR: 2.5-3.5 high intensity anticoagulation Noah Marie DO LAB BLOOD ORDERABLES Final Res ult Performing Organization Address [facility] Co de Phone Number LAB[facility]ATORY [facility] [address] [place] [address] * (ABNORMAL) PROCALCITONIN (06/09/2024 5:01 AM EST) Procalcitonin 0.12(H) <0.10 ng/mL 06/09/2024 8:24 AM EST LABORATORY [facility] Blood Venous blood specimen / Unknown Venipuncture / Unknown 06/09/2024 5:01 AM EST 06/09/2024 5:17 AM EST Narrative LAB[facility]AT[facility] - 06/09/2024 8:24 AM EST Less than 0.5 ng/mL: Low risk for progression to sepsis. Review patients condition for localized infections. 0.5 to 2.0 ng/mL: Intermediate risk for progresion to sepsis. Review underlying conditions. Recommend repeat PCT after 6 hours has elapsed. Greater than 2.0 ng/mL: high risk for progression to sepsis unless other causes are known. Toney Redmond MD LAB BLOOD ORDERABLES Final Re sult Performing Organization Address [facility] Co de Phone Number LAB[facility]ATORY [facility] [address] [place] [address] * (ABNORMAL) DIFFERENTIAL, TECHNOLOGIST REVIEW (06/09/2024 5:01 AM EST) WBC 5.98 4.00 - 10.80 K/uL 06/09/2024 6:04 AM EST LABORATORY [facility] Neutrophils % 100.0(H) 40.0 - 75.0 % 06/09/2024 6:04 AM EST LAB[facility]ATORY [facility] Absolute Neutrophils 5.98 1.80 - 7.70 K/uL 06/09/2024 6:04 AM EST LAB[facility]ATORY [facility] Blood Venous blood specimen / Unknown Venipuncture / Unknown 06/09/2024 5:01 AM EST 06/09/2024 5:17 AM EST us Flex Nunez MD LAB BLOOD ORDERABLES Final Resul t Performing Organization Address [facility] de Phone Number [facility] [place] [address] [place] [address] * DIFFERENTIAL, AUTOMATED (06/09/2024 5:01 AM EST) Blood Venous blood specimen / Unknown Venipuncture / Unknown 06/09/2024 5:01 AM EST 06/09/2024 5:17 AM EST us Flex Nunez MD LAB BLOOD ORDERABLES Final Resul t Performing Organization Address [facility] de Phone Number [facility] [place] [address] [place] [address] * (ABNORMAL) CBC (06/09/2024 5:01 AM EST) Pathologist [facility] WBC 5.98 4.00 - 10.80 K/uL 06/09/2024 5:45 AM EST LABORATORY [facility] RBC 3.73 3.85 - 5.15 M/uL 06/09/2024 5:45 AM EST LAB[facility]ATORY [facility] HGB 9.9(L) 12.0 - 15.3 g/dL 06/09/2024 5:45 AM EST LAB[facility]ATORY [facility] HCT 32.2(L) 36.0 - 45.2 % 06/09/2024 5:45 AM EST LAB[facility]ATORY [facility] MCV 86.3 81.5 - 97.5 fL 06/09/2024 5:45 AM EST LAB[facility]ATORY [facility] MCH 26.5 27.0 - 34.0 pg 06/09/2024 5:45 AM EST LAB[facility]ATORY [facility] MCHC 30.7 32.0 - 36.0 g/dL 06/09/2024 5:45 AM EST LAB[facility]ATORY [facility] RDW 19.9 11.5 - 15.5 % 06/09/2024 5:45 AM EST LABORATORY [facility] PLT 323 140 - 400 K/uL 06/09/2024 5:45 AM EST LABORATORY [facility] MPV 8.7 6.6 - 11.1 fL 06/09/2024 5:45 AM EST LABORATORY C nRBCs 0 <=0 /100 WBCs 06/09/2024 5:45 AM EST LABORATORY [facility] Blood Venous blood specimen / Unknown Venipuncture / Unknown 06/09/2024 5:01 AM EST 06/09/2024 5:17 AM EST Flex Nunez MD LAB BLOOD ORDERABLES Final Resul t Performing Organization Address City/[facility]/ZIP Co de Phone Number [facility]ATORY [facility] [address] [place] [address] * (ABNORMAL) PHOSPHORUS (06/09/2024 5:01 AM EST) Phosphorus 2.2(L) 2.5 - 4.8 mg/dL 06/09/2024 5:57 AM EST LAB[facility]ATORY [facility] Blood Venous blood specimen / Unknown Venipuncture / Unknown 06/09/2024 5:01 AM EST 06/09/2024 5:17 AM EST Bhavin Bailon PA-C LAB BLOOD ORDERABLES Fin al Result Performing Organization Address [facility] [place] [address] * MAGNESIUM (06/09/2024 5:01 AM EST) Magnesium 2.1 1.5 - 2.6 mg/dL 06/09/2024 5:57 AM EST LABORATORY C Blood Venous blood specimen / Unknown Venipuncture / Unknown 06/09/2024 5:01 AM EST 06/09/2024 5:17 AM EST Bhavin Bailon PA-C LAB BLOOD ORDERABLES Fin al Result Performing Organization Address City/[facility] [place] [address] * (ABNORMAL) CALCIUM, IONIZED (06/09/2024 5:01 AM EST) Calcium, Ionized 0.97(L) 1.13 - 1.32 mmol/L 06/09/2024 5:43 AM EST LAB[facility]ATORY [facility] Comment:This test was develo ped and its performance characteristics dtermined by [email or web address]. It has not been cleared or approved by the [place] Food and Drug Administration Blood Venous blood specimen / Unknown Venipuncture / Unknown 06/09/2024 5:01 AM EST 06/09/2024 5:17 AM EST Bhavin Bailon PA-C LAB BLOOD ORDERABLES Fin al Result Performing Organization Address City/[facility] Co de Phone Number LABORATORY [facility] [address] [place] [address] * COMPLEMENT C4 (06/09/2024 5:01 AM EST) Complement C4 14 10 - 40 mg/dL 06/09/2024 5:57 AM EST LAB[facility]ATORY [facility] Blood Venous blood specimen / Unknown Venipuncture / Unknown 06/09/2024 5:01 AM EST 06/09/2024 5:17 AM EST Flex Nunez MD LAB BLOOD ORDERABLES Final Resul t Performing Organization Address [facility] Co de Phone Number [facility]ATORY [facility] [address] [place] [address] * (ABNORMAL) COMPLEMENT C3 (06/09/2024 5:01 AM EST) Complement C3 74(L) 90 - 180 mg/dL 06/09/2024 5:57 AM EST [facility] Blood Venous blood specimen / Unknown Venipuncture / Unknown 06/09/2024 5:01 AM EST 06/09/2024 5:17 AM EST Flex Nunez MD LAB BLOOD ORDERABLES Final Resul t Performing Organization Address City/[facility] Co de Phone Number [facility]ATORY [facility] [address] [place] [address] * (ABNORMAL) COMPREHENSIVE METABOLIC PANEL (06/09/2024 5:01 AM EST) BUN 6 6 - 20 mg/dL 06/09/2024 5:57 AM EST LABORATORY [facility] CREATININE 0.4(L) 0.5 - 1.0 mg/dL 06/09/2024 5:57 AM EST LABORATORY [facility] EGFR >90 >=60 mL/min 06/09/2024 5:57 AM EST LABORATORY [facility] Comment:eGFR is calculated b ased on the CKD-EPI 2020 equation. SODIUM 135 135 - 146 mmol/L 06/09/2024 5:57 AM EST LAB[facility]ATORY [facility] POTASSIUM 3.6 3.5 - 5.1 mmol/L 06/09/2024 5:57 AM EST LAB[facility]ATORY [facility] CHLORIDE 102 98 - 107 mmol/L 06/09/2024 5:57 AM EST LAB[facility]ATORY [facility] CO2 20(L) 22 - 32 mmol/L 06/09/2024 5:57 AM EST LAB[facility]ATORY [facility] ANION GAP 13 7 - 15 mmol/L 06/09/2024 5:57 AM EST LAB[facility]ATORY [facility] GLUCOSE 74 70 - 120 mg/dL 06/09/2024 5:57 AM EST LAB[facility]ATORY [facility] Albumin 2.9(L) 3.8 - 5.0 g/dL 06/09/2024 5:57 AM EST LAB[facility]ATORY [facility] AST 147(H) 10 - 35 U/L 06/09/2024 5:57 AM EST LAB[facility]ATORY [facility] Alkaline Phosphatase 76 35 - 130 U/L 06/09/2024 5:57 AM EST LAB[facility]ATORY [facility] Bilirubin, Total 0.3 <=1.2 mg/dL 06/09/2024 5:57 AM EST LAB[facility]ATORY [facility] CALCIUM 6.7(L) 8.4 - 10.2 mg/dL 06/09/2024 5:57 AM EST LAB[facility]ATORY [facility] Protein 5.6(L) 6.0 - 8.3 g/dL 06/09/2024 5:57 AM EST LAB[facility]ATORY [facility] ALT 46(H) 10 - 35 U/L 06/09/2024 5:57 AM EST LAB[facility]ATORY [facility] Blood Venous blood specimen / Unknown Venipuncture / Unknown 06/09/2024 5:01 AM EST 06/09/2024 5:17 AM EST Noah Marie DO LAB BLOOD ORDERABLES Final Res ult Performing Organization Address City/[facility]/ZIP Co de Phone Number LAB[facility]ATORY [facility] [address] [place] [address] * (ABNORMAL) TRIGLYCERIDES (06/09/2024 5:01 AM EST) Triglycerides 265(H) <=174 mg/dL 06/09/2024 5:57 AM EST LAB[facility]ATORY [facility] Comment: Triglyceride Reference Ranges (mg/dL): <150 Acceptable 150-174 Borderline high 175-499 High >=500 Very high Blood Venous blood specimen / Unknown Venipuncture / Unknown 06/09/2024 5:01 AM EST 06/09/2024 5:17 AM EST Noah Marie DO LAB BLOOD ORDERABLES Final Res ult Performing Organization Address City/[facility] Co de Phone Number LAB[facility]ATORY [facility] [address] [place] [address] * (ABNORMAL) LD (06/09/2024 5:01 AM EST) LD 727(H) <=250 U/L 06/09/2024 5:57 AM EST LAB[facility]ORY [facility] Blood Venous blood specimen / Unknown Venipuncture / Unknown 06/09/2024 5:01 AM EST 06/09/2024 5:17 AM EST Noah Marie DO LAB BLOOD ORDERABLES Final Res ult LABORATORY [facility] [address] [place] [address] * (ABNORMAL) FERRITIN (06/09/2024 5:01 AM EST) Ferritin 6,776(H) 13 - 150 ng/mL 06/09/2024 6:43 AM EST LAB[facility]ATORY [facility] Blood Venous blood specimen / Unknown Venipuncture / Unknown 06/09/2024 5:01 AM EST 06/09/2024 5:17 AM EST Noah Marie DO LAB BLOOD ORDERABLES Final Res ult Performing Organization Address [facility]/ZIP Co de Phone Number LAB[facility]ATORY [facility] [address] [place] [address] * (ABNORMAL) CRP (INFLAMMATORY MARKER) (06/09/2024 5:01 AM EST) CRP (Inflammatory Marker) 142(H) <=5 mg/L 06/09/2024 5:57 AM EST LAB[facility]ORY [facility] Blood Venous blood specimen / Unknown Venipuncture / Unknown 06/09/2024 5:01 AM EST 06/09/2024 5:17 AM EST Noah Marie DO LAB BLOOD ORDERABLES Final Res ult Performing Organization Address [facility] Co de Phone Number LABORATORY [facility] [address] [place] [address] * (ABNORMAL) ERYTHROCYTE SEDIMENTATION RATE (ESR) (06/09/2024 5:00 AM EST) ESR 24(H) <20 mm/hour 06/09/2024 6:07 AM EST LAB[facility]ATORY [facility] Blood Venous blood specimen / Unknown Venipuncture / Unknown 06/09/2024 5:00 AM EST 06/09/2024 5:17 AM EST Noah Marie DO LAB BLOOD ORDERABLES Final Res ult Performing Organization Address [facility] Co de Phone Number LABORATORY [facility] [address] [place] [address] * (ABNORMAL) CALCIUM, IONIZED (06/08/2024 11:33 PM EST) Calcium, Ionized 1.04(L) 1.13 - 1.32 mmol/L 06/08/2024 11:52 PM EST LAB[facility]ATORY [facility] Comment:This test was develo ped and its performance characteristics dtermined by [email or web address]. It has not been cleared or approved by the [place] Food and Drug Administration Blood Venous blood specimen / Unknown Venipuncture / Unknown 06/08/2024 11:33 PM EST 06/08/2024 11:41 PM EST Bhavin Bailon PA-C LAB BLOOD ORDERABLES Fin al Result LAB[facility]ATORY [facility] [address] [place] [address] * XR CHEST 1 VIEW (06/08/2024 10:52 PM EST) Anatomical Region Laterality Modality Chest Computed Radiogr aphy 06/09/2024 12:4 4 AM EST Impressions 06/09/2024 12:41 AM EST IMPRESSION Mild left basilar opacities may represent atelectasis versus early pneumonia. Query small pleural effusions. Narrative 06/09/2024 12:41 AM EST EXAM XR CHEST 1 VIEW-06/08/2024 10:52 pm HISTORY fever COMPARISON 06/04/2024 and priors TECHNIQUE AP radiograph of the chest FINDINGS No pneumothorax. Hypoventilatory changes. Mild left basilar opacities. Query small pleural effusions. Cardiac silhouette is not enlarged. Procedure Note Kp Kirkland MD - 06/09/2024 EXAM XR CHEST 1 VIEW-06/08/2024 10:52 pm HISTORY fever COMPARISON 06/04/2024 and priors TECHNIQUE AP radiograph of the chest FINDINGS No pneumothorax. Hypoventilatory changes. Mild left basilar opacities.Query small pleural effusions. Cardiac silhouette is not enlarged. IMPRESSION IMPRESSION Mild left basilar opacities may represent atelectasis versus earlypneumonia. Query small pleural effusions. Mariano [facility] RADIOLOGY (RAD GENERAL) Fi nal Result * CULTURE, URINE, QUANTITATIVE (06/08/2024 9:22 PM EST) Culture Growth No significant growth 06/09/2024 7:00 PM EST LAB[facility]ATORY [facility] Urine Urine specimen / Unknown Non-blood Collection / Unknown 06/08/2024 9:22 PM EST 06/08/2024 9:33 PM EST Mariano Bushmond RN X RAY LAB MICRO - GENERAL ORDERA BLES Final Result LABORATORY [facility] [address] [place] [address] * (ABNORMAL) URINALYSIS, REFLEX TO CULTURE (06/08/2024 9:22 PM EST) Color, Urine Yellow Colorless, Light Yellow, Yellow, Dark Yellow 06/08/2024 10:14 PM EST LAB[facility]ATORY [facility] Clarity, Urine Clear Clear 06/08/2024 10:14 PM EST LAB[facility]ATORY [facility] Glucose, Urine Negative Negative mg/dL 06/08/2024 10:14 PM EST LAB[facility]ATORY [facility] Bilirubin, Urine Negative Negative 06/08/2024 10:14 PM EST LAB[facility]ATORY [facility] Ketone, Urine Negative Negative mg/dL 06/08/2024 10:14 PM EST LAB[facility]ATORY [facility] Specific [place], Urine 1.025 1.003 - 1.030 06/08/2024 10:14 PM EST LABORATORY GM Blood, Urine Moderate(A) Negative 06/08/2024 10:14 PM EST LAB[facility]ATORY [facility] pH, Urine 6.5 5.0 - 7.5 Units 06/08/2024 10:14 PM EST LAB[facility]ORY [facility] Protein, Urine 30(A) Negative mg/dL 06/08/2024 10:14 PM EST LABORATORY GM Urobilinogen, Urine Normal Normal mg/dL 06/08/2024 10:14 PM EST LAB[facility]ATORY [facility] Nitrite, Urine Negative Negative 06/08/2024 10:14 PM EST LAB[facility]ATORY [facility] Esterase, Urine Negative Negative 06/08/2024 10:14 PM EST LAB[facility]ATORY [facility] RBC, Urine 3-5(A) 0 - 2 /HPF 06/08/2024 10:14 PM EST LAB[facility]ATORY [facility] WBC, Urine 3-5(A) 0 - 2 /HPF 06/08/2024 10:14 PM EST LAB[facility]ATORY [facility] Bacteria, Urine 101-150(A) 0 - 25 /HPF 06/08/2024 10:14 PM EST LAB[facility] Culture, Urine 06/08/2024 10:14 PM EST LAB[facility]ATORY [facility] Comment:Quantitative urine c ulture to be performed Urine Urine specimen / Unknown Non-blood Collection / Unknown 06/08/2024 9:22 PM EST 06/08/2024 9:33 PM EST [facility] LAB URINE ORDERABLES Final Result Performing Organization Address City/[facility]/ZIP Co de Phone Number LABORATORY [facility] [address] [place] [address] * URINALYSIS, REFLEX TO CULTURE (CUP ONLY) (06/08/2024 9:22 PM EST) Urinalysis, Reflex to Culture Specimen Specimen collected and received 06/08/2024 11:02 PM EST LAB[facility]ATORY [facility] Urine Urine specimen / Unknown Non-blood Collection / Unknown 06/08/2024 9:22 PM EST 06/08/2024 9:33 PM EST [facility] LAB URINE ORDERABLES Final Result Performing Organization Address [facility] de Phone Number LABORATORY [facility] [address] [place] [address] * RESPIRATORY PATHOGEN PANEL, PCR (06/08/2024 9:22 PM EST) Adenovirus by PCR Negative Negative 11:23 PM EST LAB[facility]ATORY [facility] Coronavirus 229E by PCR Negative Negative 06/08/2024 11:23 PM EST LAB[facility]ORY [facility] Coronavirus HKU1 by PCR Negative Negative 06/08/2024 11:23 PM EST LAB[facility]ORY [facility] Coronavirus NL63 by PCR Negative Negative 06/08/2024 11:23 PM EST LAB[facility]ORY [facility] Coronavirus OC43 by PCR Negative Negative 06/08/2024 11:23 PM EST LAB[facility]ORY [facility] Coronavirus SARS-CoV-2 by PCR Negative Negative 06/08/2024 11:23 PM EST LAB[facility]ATORY [facility] Human Metapneumovirus by PCR Negative Negative 06/08/2024 11:23 PM EST LAB[facility]ATORY [facility] Rhinovirus/Enterovi cori by PCR Negative Negative 06/08/2024 11:23 PM EST LAB[facility] Influenza A Virus by PCR Negative Negative 06/08/2024 11:23 PM EST LAB[facility] Influenza B Virus by PCR Negative Negative 06/08/2024 11:23 PM EST LAB[facility] Parainfluenza Virus 1 by PCR Negative Negative 06/08/2024 11:23 PM EST [facility] Parainfluenza Virus 2 by PCR Negative Negative 06/08/2024 11:23 PM EST LAB[facility] Parainfluenza Virus 3 by PCR Negative Negative 06/08/2024 11:23 PM EST LAB[facility] Parainfluenza Virus 4 by PCR Negative Negative 06/08/2024 11:23 PM EST [facility] Respiratory Syncytial Virus by PCR Negative Negative 06/08/2024 11:23 PM EST LAB[facility] Bordetella pertussis by PCR Negative Negative 06/08/2024 11:23 PM EST LAB[facility] Chlamydia pneumoniae by PCR Negative Negative 06/08/2024 11:23 PM EST [facility] Mycoplasma pneumoniae by PCR Negative Negative 06/08/2024 11:23 PM EST LAB[facility] Bordetella parapertussis by PCR Negative Negative 06/08/2024 11:23 PM EST [facility] Comment: The primers that detect Rhinovirus may cross react with some Enterorviruses. The validation of bronchial specimens, tracheal aspirates, and throats for this assay was developed and performance characteristics determined by [employer]. The validation of alternate specimen types has not been cleared or approved by the U.S. Food and Drug Administration (FDA). It has been determined that such clearance or approval is not necessary. Upper Respiratory Mid-turbinate nasal swab / Unknown Non-blood Collection / Unknown 06/08/2024 9:22 PM EST 06/08/2024 10:21 PM EST Mariano [facility] LAB MICRO - GENERAL ORDERA BLES Final Result LAB[facility]AT[facility] [address] [place] [address] * (ABNORMAL) BASIC METABOLIC PANEL (06/08/2024 8:57 PM EST) BUN 5(L) 6 - 20 mg/dL 06/08/2024 9:34 PM EST [facility] CREATININE 0.4(L) 0.5 - 1.0 mg/dL 06/08/2024 9:34 PM EST LAB[facility]ATORY [facility] EGFR >90 >=60 mL/min 06/08/2024 9:34 PM EST LAB[facility]ATORY [facility] Comment:eGFR is calculated b ased on the CKD-EPI 2020 equation. SODIUM 134(L) 135 - 146 mmol/L 06/08/2024 9:34 PM EST LAB[facility]ATORY [facility] POTASSIUM 3.7 3.5 - 5.1 mmol/L 06/08/2024 9:34 PM EST LAB[facility]ATORY [facility] CHLORIDE 103 98 - 107 mmol/L 06/08/2024 9:34 PM EST LAB[facility]ORY [facility] CO2 22 22 - 32 mmol/L 06/08/2024 9:34 PM EST LAB[facility] ANION GAP 9 7 - 15 mmol/L 06/08/2024 9:34 PM EST LAB[facility]ORY [facility] GLUCOSE 78 70 - 120 mg/dL 06/08/2024 9:34 PM EST LAB[facility]ATORY [facility] CALCIUM 6.7(L) 8.4 - 10.2 mg/dL 06/08/2024 9:34 PM EST LAB[facility]AT[facility] Blood Venous blood specimen / Unknown Venipuncture / Unknown 06/08/2024 8:57 PM EST 06/08/2024 9:04 PM EST Mariano [facility] LAB BLOOD ORDERABLES Final Result Performing Organization Address City/State/[facility] Co de Phone Number LABORATORY [facility] [address] [place] [address] * (ABNORMAL) CBC (06/08/2024 8:57 PM EST) WBC 6.34 4.00 - 10.80 K/uL 06/08/2024 9:13 PM EST LAB[facility]ATORY [facility] RBC 3.22 3.85 - 5.15 M/uL 06/08/2024 9:13 PM EST LAB[facility]ATORY [facility] HGB 8.7(L) 12.0 - 15.3 g/dL 06/08/2024 9:13 PM EST LAB[facility]ORY [facility] HCT 26.9(L) 36.0 - 45.2 % 06/08/2024 9:13 PM EST LAB[facility] MCV 83.5 81.5 - 97.5 fL 06/08/2024 9:13 PM EST LAB[facility]ORY [facility] MCH 27.0 27.0 - 34.0 pg 06/08/2024 9:13 PM EST [facility] MCHC 32.3 32.0 - 36.0 g/dL 06/08/2024 9:13 PM EST LAB[facility]ORY [facility] RDW 19.6 11.5 - 15.5 % 06/08/2024 9:13 PM EST LAB[facility]ORY [facility] PLT 286 140 - 400 K/uL 06/08/2024 9:13 PM EST LAB[facility]ATORY [facility] MPV 8.7 6.6 - 11.1 fL 06/08/2024 9:13 PM EST LAB[facility] nRBCs 0 <=0 /100 WBCs 06/08/2024 9:13 PM EST LAB[facility]ORY [facility] Blood Venous blood specimen / Unknown Venipuncture / Unknown 06/08/2024 8:57 PM EST 06/08/2024 9:04 PM EST [facility] LAB BLOOD ORDERABLES Final Result Performing Organization Address City/[facility]/ZIP Co de Phone Number LABORATORY [facility] [address] [place] [address] * LACTATE (06/08/2024 8:56 PM EST) Pathologist [facility] Lactate 1.4 0.4 - 2.0 mmol/L 06/08/2024 9:32 PM EST LAB[facility]ORY [facility] Blood Venous blood specimen / Unknown Venipuncture / Unknown 06/08/2024 8:56 PM EST 06/08/2024 9:04 PM EST [facility] LAB BLOOD ORDERABLES Final Result Performing Organization Address City/[facility]/ZIP Co de Phone Number LABORATORY [facility] [address] [place] [address] * (ABNORMAL) CALCIUM, IONIZED (06/08/2024 8:51 PM EST) Calcium, Ionized 1.02(L) 1.13 - 1.32 mmol/L 06/08/2024 9:17 PM EST [facility]ORY [facility] Comment:This test was develo ped and its performance characteristics dtermined by [email or web address]. It has not been cleared or approved by the [place] Food and Drug Administration Blood Venous blood specimen / Unknown Venipuncture / Unknown 06/08/2024 8:51 PM EST 06/08/2024 9:04 PM EST Bhavin Melecio [facility] LAB BLOOD ORDERABLES Fin al Result Performing Organization Address [facility] [place] [address] * (ABNORMAL) CALCIUM, IONIZED (06/08/2024 4:31 PM EST) Calcium, Ionized 1.02(L) 1.13 - 1.32 mmol/L 06/08/2024 4:49 PM EST [facility] Comment:This test was develo ped and its performance characteristics dtermined by [email or web address]. It has not been cleared or approved by the [place] Food and Drug Administration Blood Venous blood specimen / Unknown Venipuncture / Unknown 06/08/2024 4:31 PM EST 06/08/2024 4:35 PM EST Bhavin Melecio [facility] LAB BLOOD ORDERABLES Fin al Result Performing Organization Address [facility] [place] [address] * (ABNORMAL) CALCIUM, IONIZED (06/08/2024 11:40 AM EST) Calcium, Ionized 1.07(L) 1.13 - 1.32 mmol/L 06/08/2024 12:05 PM EST [facility] Comment:This test was develo ped and its performance characteristics dtermined by [email or web address]. It has not been cleared or approved by the [place] Food and Drug Administration Blood Venous blood specimen / Unknown Venipuncture / Unknown 06/08/2024 11:40 AM EST 06/08/2024 11:42 AM EST Bhavin Melecio [facility] LAB BLOOD ORDERABLES Fin al Result Performing Organization Address [facility] Co de Phone Number [facility]ATORY [facility] [address] [place] [address] * CALCIUM, IONIZED (06/08/2024 9:10 AM EST) Calcium, Ionized 1.15 1.13 - 1.32 mmol/L 06/08/2024 9:56 AM EST [facility] Comment:This test was develo ped and its performance characteristics dtermined by [email or web address]. It has not been cleared or approved by the [place] Food and Drug Administration Blood Venous blood specimen / Unknown Venipuncture / Unknown 06/08/2024 9:10 AM EST 06/08/2024 9:27 AM EST Bhavin Bailon PA-C LAB BLOOD ORDERABLES Fin al Result Performing Organization Address [facility] de Phone Number LAB[facility]ATORY [facility] [address] [place] [address] * XR ABDOMEN 1 VIEW (06/08/2024 8:28 AM EST) Anatomical Region Laterality Modality Abdomen, Pelvis Computed Radiogr aphy 06/08/2024 1:39 PM EST Impressions 06/08/2024 1:36 PM EST IMPRESSION Decreased gaseous distention of the bowel. Nonobstructive bowel gas pattern. Narrative 06/08/2024 1:36 PM EST EXAM XR ABDOMEN 1 VIEW-06/08/2024 8:28 am HISTORY ileus COMPARISON XR abdomen 06/06/2024, 06/06/2024, 06/06/2024 TECHNIQUE Single AP view encompassing portions of the abdomen and pelvis. FINDINGS Gastric suction tube tip and sidehole project over the stomach. Decreased gaseous distention of the bowel. Nonobstructive bowel gas pattern. The osseous structures are unremarkable. Procedure Note Ankur Stanley MD - 06/08/2024 EXAM XR ABDOMEN 1 VIEW-06/08/2024 8:28 am HISTORY ileus COMPARISON XR abdomen 06/06/2024, 06/06/2024, 06/06/2024 TECHNIQUE Single AP view encompassing portions of the abdomen and pelvis. FINDINGS Gastric suction tube tip and sidehole project over the stomach. Decreased gaseous distention of the bowel. Nonobstructive bowel gaspattern. The osseous structures are unremarkable. IMPRESSION IMPRESSION Decreased gaseous distention of the bowel. Nonobstructive bowel gaspattern. us Ada Flaherty MD RADIOLOGY ([facility]) Final Result * (ABNORMAL) COMPREHENSIVE METABOLIC PANEL (06/08/2024 5:22 AM EST) BUN 4(L) 6 - 20 mg/dL 06/08/2024 6:00 AM EST [facility]ORY [facility] CREATININE 0.3(L) 0.5 - 1.0 mg/dL 06/08/2024 6:00 AM EST LAB[facility] EGFR >90 >=60 mL/min 06/08/2024 6:00 AM EST LAB[facility] Comment:eGFR is calculated b ased on the CKD-EPI 2020 equation. SODIUM 134(L) 135 - 146 mmol/L 06/08/2024 6:00 AM EST [facility] POTASSIUM 3.6 3.5 - 5.1 mmol/L 06/08/2024 6:00 AM EST [facility] CHLORIDE 103 98 - 107 mmol/L 06/08/2024 6:00 AM EST [facility] CO2 20(L) 22 - 32 mmol/L 06/08/2024 6:00 AM EST [facility] ANION GAP 11 7 - 15 mmol/L 06/08/2024 6:00 AM EST [facility] GLUCOSE 76 70 - 120 mg/dL 06/08/2024 6:00 AM EST [facility] Albumin 2.7(L) 3.8 - 5.0 g/dL 06/08/2024 6:00 AM EST [facility] AST 129(H) 10 - 35 U/L 06/08/2024 6:00 AM EST [facility] Alkaline Phosphatase 72 35 - 130 U/L 06/08/2024 6:00 AM EST [facility] Bilirubin, Total 0.3 <=1.2 mg/dL 06/08/2024 6:00 AM EST [facility] CALCIUM 7.8(L) 8.4 - 10.2 mg/dL 06/08/2024 6:00 AM EST [facility] Protein 4.8(L) 6.0 - 8.3 g/dL 06/08/2024 6:00 AM EST [facility] ALT 35 10 - 35 U/L 06/08/2024 6:00 AM EST [facility] Blood Venous blood specimen / Unknown Venipuncture / Unknown 06/08/2024 5:22 AM EST 06/08/2024 5:28 AM EST Noah Wildevak LAB BLOOD ORDERABLES Final Res ult Performing Organization Address [facility] Co de Phone Number [facility] [place] [address] [place] [address] * (ABNORMAL) APTT (06/08/2024 5:22 AM EST) aPTT 41(H) 21 - 38 seconds 06/08/2024 5:53 AM EST [facility] [place] Venous blood specimen / Unknown Venipuncture / Unknown 06/08/2024 5:22 AM EST 06/08/2024 5:28 AM EST Narrative [facility] [place] 06/08/2024 5:53 AM EST Anticoagulation may affect testing. Refer to [employer] Test Catalog for a list of effects. Noah Marie DO LAB BLOOD ORDERABLES Final Res ult Performing Organization Address [facility] de Phone Number LAB[facility]ATORY [place] [address] [place] [address] * PT INR (06/08/2024 5:22 AM EST) Prothrombin Time 14.7 11.6 - 15.2 seconds 06/08/2024 5:52 AM EST [facility] [place] INR 1.1 0.8 - 1.2 06/08/2024 5:52 AM EST [facility] Venous blood specimen / Unknown Venipuncture / Unknown 06/08/2024 5:22 AM EST 06/08/2024 5:28 AM EST Narrative [facility] [place] 06/08/2024 5:52 AM EST Warfarin Therapy INR: 2.0-3.0 conventional anticoagulation INR: 2.5-3.5 high intensity anticoagulation Noah Cynthia LAB BLOOD ORDERABLES Final Res ult Performing Organization Address [facility] Co de Phone Number [facility] [place] [address] [place] [address] * (ABNORMAL) LD (06/08/2024 5:22 AM EST) LD 503(H) <=250 U/L 06/08/2024 6:00 AM EST [facility] [place] Venous blood specimen / Unknown Venipuncture / Unknown 06/08/2024 5:22 AM EST 06/08/2024 5:28 AM EST Noah Marie LAB BLOOD ORDERABLES Final Res ult Performing Organization Address [facility] de Phone Number [facility] [place] [address] [place] [address] * (ABNORMAL) TRIGLYCERIDES (06/08/2024 5:22 AM EST) Triglycerides 312(H) <=174 mg/dL 06/08/2024 6:00 AM EST [facility]: Triglyceride Reference Ranges (mg/dL): <150 Acceptable 150-174 Borderline high 175-499 High >=500 Very high Blood Venous blood specimen / Unknown Venipuncture / Unknown 06/08/2024 5:22 AM EST 06/08/2024 5:28 AM EST Noah Marie LAB BLOOD ORDERABLES Final Res ult Performing Organization Address City/[facility] de Phone Number [facility] [place] [address] [place] [address] * (ABNORMAL) FERRITIN (06/08/2024 5:22 AM EST) Ferritin 5,969(H) 13 - 150 ng/mL 06/08/2024 6:52 AM EST [facility] Venous blood specimen / Unknown Venipuncture / Unknown 06/08/2024 5:22 AM EST 06/08/2024 5:28 AM EST Noah Marie DO LAB BLOOD ORDERABLES Final Res ult Performing Organization Address [facility] de Phone Number [facility] [address] [place] [address] * (ABNORMAL) CRP (INFLAMMATORY MARKER) (06/08/2024 5:22 AM EST) CRP (Inflammatory Marker) 58(H) <=5 mg/L 06/08/2024 6:00 AM EST [facility] Blood Venous blood specimen / Unknown Venipuncture / Unknown 06/08/2024 5:22 AM EST 06/08/2024 5:28 AM EST Noah Marie DO LAB BLOOD ORDERABLES Final Res ult Performing Organization Address [facility] Phone Number [facility] [place] [address] [place] [address] * ERYTHROCYTE SEDIMENTATION RATE (ESR) (06/08/2024 5:22 AM EST) Pathologist [facility] ESR 9 <20 mm/hour 06/08/2024 5:43 AM EST [facility] Blood Venous blood specimen / Unknown Venipuncture / Unknown 06/08/2024 5:22 AM EST 06/08/2024 5:28 AM EST Noah Marie DO LAB BLOOD ORDERABLES Final Res ult Performing Organization Address [facility] de Phone Number [facility] [place] [address] [place] [address] * (ABNORMAL) DIFFERENTIAL, AUTOMATED (06/08/2024 5:22 AM EST) WBC 3.78(L) 4.00 - 10.80 K/uL 06/08/2024 6:43 AM EST [facility] Neutrophils % 84.6(H) 40.0 - 75.0 % 06/08/2024 6:43 AM EST [facility] Lymphocytes % 9.5(L) 18.0 - 42.0 % 06/08/2024 6:43 AM EST [facility] Monocytes % 1.9 1.0 - 11.0 % 06/08/2024 6:43 AM EST [facility] Eosinophils % 0.0 0.0 - 6.0 % 06/08/2024 6:43 AM EST [facility] Basophils % 0.0 0.0 - 2.0 % 06/08/2024 6:43 AM EST [facility] Immature Granulocytes % 4.0(H) 0.0 - 2.0 % 06/08/2024 6:43 AM EST [facility] Absolute Neutrophils 3.20 1.80 - 7.70 K/uL 06/08/2024 6:43 AM EST [facility] Absolute Lymphocytes 0.36(L) 1.00 - 4.80 K/ul 06/08/2024 6:43 AM EST [facility] Absolute Monocytes 0.07 0.00 - 1.10 K/uL 06/08/2024 6:43 AM EST [facility] Absolute Eosinophils 0.00 0.00 - 0.70 K/uL 06/08/2024 6:43 AM EST [facility] Absolute Basophils 0.00 0.00 - 0.20 K/uL 06/08/2024 6:43 AM EST [facility] Absolute Immature Granulocytes 0.15 0.00 - 0.20 K/uL 06/08/2024 6:43 AM EST [facility] Blood Venous blood specimen / Unknown Venipuncture / Unknown 06/08/2024 5:22 AM EST 06/08/2024 5:28 AM EST us Flex Nunez MD LAB BLOOD ORDERABLES Final Resul t [facility] [address] [place] [address] * (ABNORMAL) CBC (06/08/2024 5:22 AM EST) WBC 3.78(L) 4.00 - 10.80 K/uL 06/08/2024 5:47 AM EST [facility] RBC 3.30 3.85 - 5.15 M/uL 06/08/2024 5:47 AM EST [facility] HGB 8.7(L) 12.0 - 15.3 g/dL 06/08/2024 5:47 AM EST [facility] HCT 27.8(L) 36.0 - 45.2 % 06/08/2024 5:47 AM EST [facility] MCV 84.2 81.5 - 97.5 fL 06/08/2024 5:47 AM EST [facility] MCH 26.4 27.0 - 34.0 pg 06/08/2024 5:47 AM EST [facility] MCHC 31.3 32.0 - 36.0 g/dL 06/08/2024 5:47 AM EST [facility] RDW 19.3 11.5 - 15.5 % 06/08/2024 5:47 AM EST [facility] PLT 306 140 - 400 K/uL 06/08/2024 5:47 AM EST [facility] MPV 8.3 6.6 - 11.1 fL 06/08/2024 5:47 AM EST [facility] nRBCs 0 <=0 /100 WBCs 06/08/2024 5:47 AM EST [facility] Blood Venous blood specimen / Unknown Venipuncture / Unknown 06/08/2024 5:22 AM EST 06/08/2024 5:28 AM EST us Flex Nunez MD LAB BLOOD ORDERABLES Final Resul t Performing Organization Address City/[facility] Co de Phone Number [facility] [address] [place] [address] * COMPLEMENT C4 (06/08/2024 5:22 AM EST) Complement C4 10 10 - 40 mg/dL 06/08/2024 6:00 AM EST [facility] Blood Venous blood specimen / Unknown Venipuncture / Unknown 06/08/2024 5:22 AM EST 06/08/2024 5:28 AM EST us Flex Nunez MD LAB BLOOD ORDERABLES Final Resul t [facility] [address] [place] [address] * (ABNORMAL) COMPLEMENT C3 (06/08/2024 5:22 AM EST) Complement C3 58(L) 90 - 180 mg/dL 06/08/2024 6:00 AM EST [facility] Blood Venous blood specimen / Unknown Venipuncture / Unknown 06/08/2024 5:22 AM EST 06/08/2024 5:28 AM EST Flex Nunez MD LAB BLOOD ORDERABLES Final Resul t Performing Organization Address City/[facility]/ZIP Co de Phone Number [facility] [place] [address] [place] [address] * (ABNORMAL) PHOSPHORUS (06/08/2024 5:22 AM EST) Phosphorus 2.2(L) 2.5 - 4.8 mg/dL 06/08/2024 6:00 AM EST LABORATORY [facility] Blood Venous blood specimen / Unknown Venipuncture / Unknown 06/08/2024 5:22 AM EST 06/08/2024 5:28 AM EST Bhavin Bailon PA-C LAB BLOOD ORDERABLES Fin al Result Performing Organization Address City/[facility]/ZIP Co de Phone Number [facility] [place] [address] [place] [address] * MAGNESIUM (06/08/2024 5:22 AM EST) Magnesium 2.4 1.5 - 2.6 mg/dL 06/08/2024 6:00 AM EST [facility] [place] Blood Venous blood specimen / Unknown Venipuncture / Unknown 06/08/2024 5:22 AM EST 06/08/2024 5:28 AM EST Bhavin Bailon PA-C LAB BLOOD ORDERABLES Fin al Result Performing Organization Address City/[facility]/ZIP Co de Phone Number [facility] [place] [address] [place] [address] * CALCIUM, IONIZED (06/08/2024 5:22 AM EST) Calcium, Ionized 1.15 1.13 - 1.32 mmol/L 06/08/2024 5:57 AM EST [facility] Comment:This test was develo ped and its performance characteristics dtermined by [email or web address]. It has not been cleared or approved by the [place] Food and Drug Administration Blood Venous blood specimen / Unknown Venipuncture / Unknown 06/08/2024 5:22 AM EST 06/08/2024 5:28 AM EST Bhavin Bailon PA-C LAB BLOOD ORDERABLES Fin al Result LABORATORY [address] [address] * (ABNORMAL) URINE PROTEIN, 24 HOUR (06/08/2024 3:34 AM EST) Protein, Urine 35 mg/dL 06/08/2024 4:22 AM EST [facility] Urine Volume 1,600 mL 06/08/2024 4:22 AM EST [facility] [place] Protein, 24 Hour Urine 560(H) <150 mg/24 hours 06/08/2024 4:22 AM EST [facility] Urine Urine specimen / Unknown Non-blood Collection / Unknown 06/08/2024 3:34 AM EST 06/08/2024 3:39 AM EST Narrative [facility] [place] 06/08/2024 4:22 AM EST Normal: <150 mg/24 hours High: 150-500 mg/24 hours Very High: >500 mg/24 hours Nephrotic: >3000 mg/24 hours Brian Edward DO LAB URINE ORDERABLES Final Result LABORATORY [address] [address] * (ABNORMAL) CALCIUM, IONIZED (06/07/2024 11:42 PM EST) Calcium, Ionized 1.05(L) 1.13 - 1.32 mmol/L 06/08/2024 12:13 AM EST [facility] Comment:This test was develo ped and its performance characteristics dtermined by [email or web address]. It has not been cleared or approved by the [place] Food and Drug Administration Blood Venous blood specimen / Unknown Venipuncture / Unknown 06/07/2024 11:42 PM EST 06/07/2024 11:45 PM EST Bhavin Melecio BARBER-Dangelo LAB BLOOD ORDERABLES Fin al Result Performing Organization Address [facility] de Phone Number LABORATORY [place] [address] [place] [address] * (ABNORMAL) CALCIUM, IONIZED (06/07/2024 7:18 PM EST) Calcium, Ionized 1.02(L) 1.13 - 1.32 mmol/L 06/07/2024 8:09 PM EST [facility] Comment:This test was develo ped and its performance characteristics dtermined by [email or web address]. It has not been cleared or approved by the [place] Food and Drug Administration Blood Venous blood specimen / Unknown Venipuncture / Unknown 06/07/2024 7:18 PM EST 06/07/2024 7:27 PM EST Bhavin BARBER-Dangelo LAB BLOOD ORDERABLES Fin al Result Performing Organization Address [facility] de Phone Number LABORATORY [place] [address] [place] [address] * (ABNORMAL) CALCIUM, IONIZED (06/07/2024 4:34 PM EST) Calcium, Ionized 1.06(L) 1.13 - 1.32 mmol/L 06/07/2024 5:18 PM EST [facility] [place] Comment:This test was develo ped and its performance characteristics dtermined by [email or web address]. It has not been cleared or approved by the [place] Food and Drug Administration Blood Venous blood specimen / Unknown Venipuncture / Unknown 06/07/2024 4:34 PM EST 06/07/2024 4:55 PM EST Bhavin Bailon PA-C LAB BLOOD ORDERABLES Fin al Result [facility] [place] [address] [place] [address] * GLUCOSE METER, POINT OF CARE (06/07/2024 4:19 PM EST) Pathologist [facility] GLUCOSE - POCT 76 70 - 120 mg/dL 06/07/2024 4:25 PM EST [facility] Hang w/ [facility] Blood Whole blood specimen / Unknown 06/07/2024 4:19 PM EST 06/07/2024 4:25 PM EST Ga Blanton MD LAB POINT OF CARE TE ST DOCKED DEVICE UNSOLICITED RESULTS Final Result Performing Organization Address [facility] Co de Phone Number [facility] [address] [place] [address] * EKG (06/07/2024 4:14 PM EST) 06/07/2024 4:14 PM EST Narrative Procedure Note Jonah Collado MD - 06/07/2024 4:14 PM EST REASON FOR STUDY: Notify provider if obtaining EKG;Chest pain CONCLUSIONS: Warning: interpretation of this ECG, although attempted, may be adverselyaffected by data quality Normal sinus rhythm Prolonged QT interval or tu fusion, consider myocardial disease,electrolyte imbalance, or drug effects Abnormal ECG When compared with ECG of 06-Jun-2024 21:18, No significant change was found Ventricular Rate: 87 Atrial Rate: 87 OR Interval: 146 QRS Duration: 72 QT/QTc: 412/495 ms P-R-T Altha: 56 : 67 : 70 degrees us Noah Marie DO EKG Final Result Performing Organization Address City/[facility]/ZIP Co de Phone Number [facility] * (ABNORMAL) CALCIUM, IONIZED (06/07/2024 11:18 AM EST) Pathologist [facility] Calcium, Ionized 1.10(L) 1.13 - 1.32 mmol/L 06/07/2024 11:41 AM EST [facility] Comment:This test was develo ped and its performance characteristics dtermined by [email or web address]. It has not been cleared or approved by the [place] Food and Drug Administration Blood Venous blood specimen / Unknown Venipuncture / Unknown 06/07/2024 11:18 AM EST 06/07/2024 11:29 AM EST Bhavin Bailon PA-C LAB BLOOD ORDERABLES Fin al Result Performing Organization Address [facility] de Phone Number [facility] [place] [address] [place] [address] * (ABNORMAL) CALCIUM, IONIZED (06/07/2024 8:56 AM EST) Calcium, Ionized 1.07(L) 1.13 - 1.32 mmol/L 06/07/2024 9:23 AM EST [facility] Comment:This test was develo ped and its performance characteristics dtermined by [email or web address]. It has not been cleared or approved by the [place] Food and Drug Administration Blood Venous blood specimen / Unknown Venipuncture / Unknown 06/07/2024 8:56 AM EST 06/07/2024 9:02 AM EST Bhavin Bailon PA-C LAB BLOOD ORDERABLES Fin al Result Performing Organization Address [facility] de Phone Number [facility] [address] [place] [address] * (ABNORMAL) LIPASE (06/07/2024 5:54 AM EST) Lipase 686(H) 13 - 60 U/L 06/07/2024 8:10 AM EST [facility] Blood Venous blood specimen / Unknown Venipuncture / Unknown 06/07/2024 5:54 AM EST 06/07/2024 5:59 AM EST Ada Flaherty MD LAB BLOOD ORDERABLES Final Res ult Performing Organization Address City/[facility]/ZIP Co de Phone Number [facility] [address] [place] [address] * 1,25-DIHYDROXY VITAMIN D (06/07/2024 5:54 AM EST) Pathologist [facility] Vitamin D,1,25 (OH)2,Total 57 18 - 72 pg/mL 06/11/2024 12:57 PM EST [facility] [place] Vitamin D3,1,25 (OH)2 42 pg/mL 06/11/2024 12:57 PM EST [facility] [place] Vitamin D2,1,25 (OH)2 15 pg/mL 06/11/2024 12:57 PM EST [facility] [place] Comment: Vitamin D3, 1,25(OH)2 indicates both endogenous production and supplementation. Vitamin D2, 1,25(OH)2 is an indicator of exogenous sources, such as diet or supplementation. Interpretation and therapy are based on measurement of Vitamin D,1,25(OH)2, Total. This test was developed and its analytical performance characteristics have been determined by [place] It has not been cleared or approved by the FDA. This assay has been validated pursuant to the CLIA regulations and is used for clinical purposes. Test Performed at: [facility] [address] [address] Rei Kimball M.D., Ph.D.,Director of Laboratories Blood Venous blood specimen / Unknown Venipuncture / Unknown 06/07/2024 5:54 AM EST 06/07/2024 5:59 AM EST us Ada Flaherty MD LAB BLOOD ORDERABLES Final Res ult [employer] [address] [address] * (ABNORMAL) DIFFERENTIAL, TECHNOLOGIST REVIEW (06/07/2024 5:54 AM EST) Pathologist [facility] WBC 2.63(L) 4.00 - 10.80 K/uL 06/07/2024 7:10 AM EST [facility] Neutrophils % 91.0(H) 40.0 - 75.0 % 06/07/2024 7:10 AM EST [facility] Lymphocytes % 6.0(L) 18.0 - 42.0 % 06/07/2024 7:10 AM EST [facility] Monocytes % 3.0 1.0 - 11.0 % 06/07/2024 7:10 AM EST [facility] Absolute Neutrophils 2.39 1.80 - 7.70 K/uL 06/07/2024 7:10 AM EST [facility] Absolute Lymphocytes 0.16(L) 1.00 - 4.80 K/uL 06/07/2024 7:10 AM EST [facility] Absolute Monocytes 0.08 0.00 - 1.10 K/uL 06/07/2024 7:10 AM EST [facility] Blood Venous blood specimen / Unknown Venipuncture / Unknown 06/07/2024 5:54 AM EST 06/07/2024 5:59 AM EST Flex Nunez MD LAB BLOOD ORDERABLES Final Resul t Performing Organization Address City/[facility] de Phone Number [facility] [place] [address] [place] [address] * DIFFERENTIAL, AUTOMATED (06/07/2024 5:54 AM EST) Blood Venous blood specimen / Unknown Venipuncture / Unknown 06/07/2024 5:54 AM EST 06/07/2024 5:59 AM EST us Flex Nunez MD LAB BLOOD ORDERABLES Final Resul t Performing Organization Address [facility] de Phone Number [facility] [place] [address] [place] [address] * (ABNORMAL) CBC (06/07/2024 5:54 AM EST) WBC 2.63(L) 4.00 - 10.80 K/uL 06/07/2024 7:03 AM EST [facility] RBC 3.31 3.85 - 5.15 M/uL 06/07/2024 7:03 AM EST [facility] HGB 8.7(L) 12.0 - 15.3 g/dL 06/07/2024 7:03 AM EST [facility] HCT 28.1(L) 36.0 - 45.2 % 06/07/2024 7:03 AM EST [facility] MCV 84.9 81.5 - 97.5 fL 06/07/2024 7:03 AM EST [facility] MCH 26.3 27.0 - 34.0 pg 06/07/2024 7:03 AM EST [facility] MCHC 31.0 32.0 - 36.0 g/dL 06/07/2024 7:03 AM EST [facility] RDW 19.1 11.5 - 15.5 % 06/07/2024 7:03 AM EST [facility] PLT 287 140 - 400 K/uL 06/07/2024 7:03 AM EST [facility] MPV 8.3 6.6 - 11.1 fL 06/07/2024 7:03 AM EST [facility] nRBCs 0 <=0 /100 WBCs 06/07/2024 7:03 AM EST [facility] Blood Venous blood specimen / Unknown Venipuncture / Unknown 06/07/2024 5:54 AM EST 06/07/2024 5:59 AM EST us Flex Nunez MD LAB BLOOD ORDERABLES Final Resul t [facility] [address] [place] [address] * COMPLEMENT C4 (06/07/2024 5:54 AM EST) Complement C4 10 10 - 40 mg/dL 06/07/2024 6:37 AM EST LABORATORY [facility] Blood Venous blood specimen / Unknown Venipuncture / Unknown 06/07/2024 5:54 AM EST 06/07/2024 5:59 AM EST us Flex Nunez MD LAB BLOOD ORDERABLES Final Resul t [facility] [address] [place] [address] * (ABNORMAL) COMPLEMENT C3 (06/07/2024 5:54 AM EST) Complement C3 60(L) 90 - 180 mg/dL 06/07/2024 6:37 AM EST [facility] Blood Venous blood specimen / Unknown Venipuncture / Unknown 06/07/2024 5:54 AM EST 06/07/2024 5:59 AM EST us Flex Nunez MD LAB BLOOD ORDERABLES Final Resul t Performing Organization Address City/State/[facility] Co de Phone Number [facility] [address] [place] [address] * (ABNORMAL) COMPREHENSIVE METABOLIC PANEL (06/07/2024 5:54 AM EST) BUN 6 6 - 20 mg/dL 06/07/2024 6:37 AM EST [facility] CREATININE 0.3(L) 0.5 - 1.0 mg/dL 06/07/2024 6:37 AM EST [facility] EGFR >90 >=60 mL/min 06/07/2024 6:37 AM EST [facility] Comment:eGFR is calculated b ased on the CKD-EPI 2020 equation. SODIUM 137 135 - 146 mmol/L 06/07/2024 6:37 AM EST [facility] POTASSIUM 3.8 3.5 - 5.1 mmol/L 06/07/2024 6:37 AM EST [facility] CHLORIDE 106 98 - 107 mmol/L 06/07/2024 6:37 AM EST [facility] CO2 20(L) 22 - 32 mmol/L 06/07/2024 6:37 AM EST [facility] ANION GAP 11 7 - 15 mmol/L 06/07/2024 6:37 AM EST [facility] GLUCOSE 69(L) 70 - 120 mg/dL 06/07/2024 6:37 AM EST [facility] Albumin 2.6(L) 3.8 - 5.0 g/dL 06/07/2024 6:37 AM EST [facility] AST 105(H) 10 - 35 U/L 06/07/2024 6:37 AM EST [facility] Alkaline Phosphatase 72 35 - 130 U/L 06/07/2024 6:37 AM EST [facility] Bilirubin, Total 0.2 <=1.2 mg/dL 06/07/2024 6:37 AM EST [facility] CALCIUM 6.3(L) 8.4 - 10.2 mg/dL 06/07/2024 6:37 AM EST [facility] Protein 4.8(L) 6.0 - 8.3 g/dL 06/07/2024 6:37 AM EST [facility] ALT 36(H) 10 - 35 U/L 06/07/2024 6:37 AM EST [facility] Blood Venous blood specimen / Unknown Venipuncture / Unknown 06/07/2024 5:54 AM EST 06/07/2024 5:59 AM EST Noah Marie LAB BLOOD ORDERABLES Final Res ult [facility] [address] [place] [address] * APTT (06/07/2024 5:54 AM EST) aPTT 36 21 - 38 seconds 06/07/2024 6:27 AM EST [facility] Blood Venous blood specimen / Unknown Venipuncture / Unknown 06/07/2024 5:54 AM EST 06/07/2024 5:59 AM EST Narrative [facility] - 06/07/2024 6:27 AM EST Anticoagulation may affect testing. Refer to [employer] Test Catalog for a list of effects. Noah Marie DO LAB BLOOD ORDERABLES Final Res ult [facility] [address] [place] [address] * PT INR (06/07/2024 5:54 AM EST) Prothrombin Time 13.9 11.6 - 15.2 seconds 06/07/2024 6:26 AM EST [facility] INR 1.1 0.8 - 1.2 06/07/2024 6:26 AM EST LABORATORY C Blood Venous blood specimen / Unknown Venipuncture / Unknown 06/07/2024 5:54 AM EST 06/07/2024 5:59 AM EST Narrative [facility] [place] - 06/07/2024 6:26 AM EST Warfarin Therapy INR: 2.0-3.0 conventional anticoagulation INR: 2.5-3.5 high intensity anticoagulation us Noah Marie DO LAB BLOOD ORDERABLES Final Res ult Performing Organization Address [facility] Co de Phone Number [facility] [address] [place] [address] * (ABNORMAL) TRIGLYCERIDES (06/07/2024 5:54 AM EST) Triglycerides 357(H) <=174 mg/dL 06/07/2024 6:37 AM EST [facility] Comment: Triglyceride Reference Ranges (mg/dL): <150 Acceptable 150-174 Borderline high 175-499 High >=500 Very high Blood Venous blood specimen / Unknown Venipuncture / Unknown 06/07/2024 5:54 AM EST 06/07/2024 5:59 AM EST us Noah Marie DO LAB BLOOD ORDERABLES Final Res ult Performing Organization Address [facility] de Phone Number [facility] [address] [place] [address] * (ABNORMAL) LD (06/07/2024 5:54 AM EST) Pathologist [facility] LD 581(H) <=250 U/L 06/07/2024 6:37 AM EST [facility] Blood Venous blood specimen / Unknown Venipuncture / Unknown 06/07/2024 5:54 AM EST 06/07/2024 5:59 AM EST Noah Marie DO LAB BLOOD ORDERABLES Final Res ult Performing Organization Address City/[facility] Co de Phone Number [facility] [address] [place] [address] * (ABNORMAL) FERRITIN (06/07/2024 5:54 AM EST) Ferritin 6,328(H) 13 - 150 ng/mL 06/07/2024 10:25 AM EST LABORATORY C Blood Venous blood specimen / Unknown Venipuncture / Unknown 06/07/2024 5:54 AM EST 06/07/2024 5:59 AM EST Noah Marie DO LAB BLOOD ORDERABLES Final Res ult Performing Organization Address [facility] Co de Phone Number [facility] [address] [place] [address] * (ABNORMAL) CRP (INFLAMMATORY MARKER) (06/07/2024 5:54 AM EST) CRP (Inflammatory Marker) 37(H) <=5 mg/L 06/07/2024 6:37 AM EST [facility] [place] Venous blood specimen / Unknown Venipuncture / Unknown 06/07/2024 5:54 AM EST 06/07/2024 5:59 AM EST Noah Marie DO LAB BLOOD ORDERABLES Final Res ult Performing Organization Address [facility] Phone Number [facility]ATORY [facility] [address] [place] [address] * ERYTHROCYTE SEDIMENTATION RATE (ESR) (06/07/2024 5:54 AM EST) ESR 14 <20 mm/hour 06/07/2024 6:06 AM EST [facility] [place] Venous blood specimen / Unknown Venipuncture / Unknown 06/07/2024 5:54 AM EST 06/07/2024 5:59 AM EST Noah Marie DO LAB BLOOD ORDERABLES Final Res ult Performing Organization Address [facility] de Phone Number [place]ATORY [facility] [address] [place] [address] * (ABNORMAL) PHOSPHORUS (06/07/2024 5:54 AM EST) Phosphorus 2.3(L) 2.5 - 4.8 mg/dL 06/07/2024 6:37 AM EST [facility] Venous blood specimen / Unknown Venipuncture / Unknown 06/07/2024 5:54 AM EST 06/07/2024 5:59 AM EST [facility] Melecio Bailon PA-C LAB BLOOD ORDERABLES Fin al Result Performing Organization Address [facility] de Phone Number [facility]ATORY [facility] [address] [place] [address] * MAGNESIUM (06/07/2024 5:54 AM EST) Pathologist [facility] Magnesium 2.2 1.5 - 2.6 mg/dL 06/07/2024 6:37 AM EST [facility]ORY [facility] Blood Venous blood specimen / Unknown Venipuncture / Unknown 06/07/2024 5:54 AM EST 06/07/2024 5:59 AM EST [facility] Melecio Bailon PA-C LAB BLOOD ORDERABLES Fin al Result Performing Organization Address [facility] Phone Number LABORATORY [facility] [address] [place] [address] * (ABNORMAL) CALCIUM, IONIZED (06/07/2024 5:54 AM EST) [facility] Calcium, Ionized 1.00(L) 1.13 - 1.32 mmol/L 06/07/2024 6:18 AM EST LAB[facility]ATORY [facility] Comment:This test was develo ped and its performance characteristics dtermined by [email or web address]. It has not been cleared or approved by the [place] Food and Drug Administration Blood Venous blood specimen / Unknown Venipuncture / Unknown 06/07/2024 5:54 AM EST 06/07/2024 5:59 AM EST [facility] Melecio Bailon PA-C LAB BLOOD ORDERABLES Fin al Result Performing Organization Address [facility] de Phone Number [facility]ATORY [facility] [address] [place] [address] * BETA-HCG, QUANTITATIVE (06/07/2024 5:54 AM EST) Beta-HCG, Quantitative <0.3 <=1.0 mIU/mL 06/07/2024 6:39 AM EST [facility] Blood Venous blood specimen / Unknown Venipuncture / Unknown 06/07/2024 5:54 AM EST 06/07/2024 5:59 AM EST Narrative LAB[facility]ATORY [facility] - 06/07/2024 6:39 AM EST hCG can serve as a screening assay for . However, early may not give a positive hCG test result. In addition, some non- women may have a hCG result slightly higher than the reference limit. Careful interpretation of the hCG with clinical history is required to determine whether the patient may be . Bhavin Bailon PA-C LAB BLOOD ORDERABLES Fin al Result Performing Organization Address City/[facility]/ZIP Co de Phone Number LABORATORY [address] [address] * (ABNORMAL) PHOSPHORUS (06/06/2024 11:31 PM EST) Pathologist [facility] Phosphorus 1.5(L) 2.5 - 4.8 mg/dL 06/07/2024 12:31 AM EST [facility] Blood Venous blood specimen / Unknown Venipuncture / Unknown 06/06/2024 11:31 PM EST 06/06/2024 11:55 PM EST Bhavin Bailon PA-C LAB BLOOD ORDERABLES Fin al Result LABORATORY [address] [address] * MAGNESIUM (06/06/2024 11:31 PM EST) Magnesium 2.4 1.5 - 2.6 mg/dL 06/07/2024 12:31 AM EST [facility] Blood Venous blood specimen / Unknown Venipuncture / Unknown 06/06/2024 11:31 PM EST 06/06/2024 11:55 PM EST Bhavin Bailon PA-C LAB BLOOD ORDERABLES Fin al Result Performing Organization Address [facility] de Phone Number LAB[facility]ATORY [facility] [address] [place] [address] * (ABNORMAL) CALCIUM, IONIZED (06/06/2024 11:31 PM EST) Calcium, Ionized 0.85(L) 1.13 - 1.32 mmol/L 06/07/2024 12:38 AM EST LABORATORY [facility] Comment:This test was develo ped and its performance characteristics dtermined by [email or web address]. It has not been cleared or approved by the US Food and Drug Administration Blood Venous blood specimen / Unknown Venipuncture / Unknown 06/06/2024 11:31 PM EST 06/06/2024 11:55 PM EST Bhavin Bailon PA-C LAB BLOOD ORDERABLES Fin al Result Performing Organization Address [facility] de Phone Number LAB[facility]ATORY [facility] [address] [place] [address] * (ABNORMAL) BASIC METABOLIC PANEL (06/06/2024 11:31 PM EST) BUN 7 6 - 20 mg/dL 06/07/2024 12:31 AM EST [facility] CREATININE 0.3(L) 0.5 - 1.0 mg/dL 06/07/2024 12:31 AM EST LAB[facility]ORY [facility] EGFR >90 >=60 mL/min 06/07/2024 12:31 AM EST LAB[facility]ATORY [facility] Comment:eGFR is calculated b ased on the CKD-EPI 2020 equation. SODIUM 136 135 - 146 mmol/L 06/07/2024 12:31 AM EST [facility] POTASSIUM 3.5 3.5 - 5.1 mmol/L 06/07/2024 12:31 AM EST [facility] CHLORIDE 106 98 - 107 mmol/L 06/07/2024 12:31 AM EST [facility] CO2 20(L) 22 - 32 mmol/L 06/07/2024 12:31 AM EST [facility] ANION GAP 10 7 - 15 mmol/L 06/07/2024 12:31 AM EST [facility] GLUCOSE 81 70 - 120 mg/dL 06/07/2024 12:31 AM EST [facility] CALCIUM 5.6(LL) 8.4 - 10.2 mg/dL 06/07/2024 12:31 AM EST [facility] Blood Venous blood specimen / Unknown Venipuncture / Unknown 06/06/2024 11:31 PM EST 06/06/2024 11:55 PM EST Bhavin Bailon PA-C LAB BLOOD ORDERABLES Fin al Result LAB[facility]ATORY [facility] [address] [place] [address] * XR ABDOMEN 1 VIEW (06/06/2024 11:08 PM EST) Anatomical Region Laterality Modality Abdomen, Pelvis Computed Radiogr aphy 06/07/2024 12:0 2 AM EST Impressions 06/07/2024 12:00 AM EST IMPRESSION Gastric tube is appropriately positioned in the stomach. Narrative 06/07/2024 12:00 AM EST EXAM XR ABDOMEN 1 VIEW-06/06/2024 11:08 pm HISTORY Gastric Tube placement verification COMPARISON Radiograph dated earlier on 06/06/2024. TECHNIQUE AP semi upright radiograph of the upper abdomen. FINDINGS Gastric tube is appropriately positioned in the stomach. Air-filled loops of bowel are seen in the visualized portion of the upper abdomen. No appreciable portal venous gas or free air. Procedure Note Maulik Mckeon MD - 06/07/2024 EXAM XR ABDOMEN 1 VIEW-06/06/2024 11:08 pm HISTORY Gastric Tube placement verification COMPARISON Radiograph dated earlier on 06/06/2024. TECHNIQUE AP semi upright radiograph of the upper abdomen. FINDINGS Gastric tube is appropriately positioned in the stomach. Air-filled loopsof bowel are seen in the visualized portion of the upper abdomen. Noappreciable portal venous gas or free air. IMPRESSION IMPRESSION Gastric tube is appropriately positioned in the stomach. Noah Marie DO RADIOLOGY (RAD GENERAL) Final Result * EKG (06/06/2024 9:18 PM EST) 06/06/2024 9:18 PM EST Narrative Procedure Note DestinyMaksimDO - 06/06/2024 9:18 PM EST REASON FOR STUDY: ADDMIT CONCLUSIONS: Normal sinus rhythm Prolonged QT interval or tu fusion, consider myocardial disease,electrolyte imbalance, or drug effects Ventricular Rate: 93 Atrial Rate: 93 OR Interval: 130 QRS Duration: 74 QT/QTc: 420/522 ms P-R-T Altha: 50 : 73 : 73 degrees us Bhavin Bailon PA-C EKG Final Re sult N-Sided CARDIOLOGY * (ABNORMAL) CALCIUM, IONIZED (06/06/2024 9:06 PM EST) Calcium, Ionized 0.81(L) 1.13 - 1.32 mmol/L 06/06/2024 9:36 PM EST LABORATORY [facility] Comment:This test was develo ped and its performance characteristics dtermined by [email or web address]. It has not been cleared or approved by the US Food and Drug Administration Blood Venous blood specimen / Unknown Venipuncture / Unknown 06/06/2024 9:06 PM EST 06/06/2024 9:15 PM EST us Melinda Erickson MD LAB BLOOD ORDERABLES Mary l Result LAB[facility]ATORY [facility] [address] [place] [address] * MAGNESIUM (06/06/2024 9:06 PM EST) Magnesium 2.3 1.5 - 2.6 mg/dL 06/06/2024 10:01 PM EST [facility]ORY [facility] Blood Venous blood specimen / Unknown Venipuncture / Unknown 06/06/2024 9:06 PM EST 06/06/2024 9:15 PM EST Noah Marie DO LAB BLOOD ORDERABLES Final Res ult LABORATORY [facility] [address] [place] [address] * (ABNORMAL) BASIC METABOLIC PANEL (06/06/2024 9:06 PM EST) BUN 8 6 - 20 mg/dL 06/06/2024 10:01 PM EST [facility] CREATININE 0.3(L) 0.5 - 1.0 mg/dL 06/06/2024 10:01 PM EST LAB[facility] EGFR >90 >=60 mL/min 06/06/2024 10:01 PM EST LAB[facility]ATORY [facility] Comment:eGFR is calculated b ased on the CKD-EPI 2020 equation. SODIUM 136 135 - 146 mmol/L 06/06/2024 10:01 PM EST [facility] POTASSIUM 4.0 3.5 - 5.1 mmol/L 06/06/2024 10:01 PM EST [facility] CHLORIDE 105 98 - 107 mmol/L 06/06/2024 10:01 PM EST [facility] CO2 20(L) 22 - 32 mmol/L 06/06/2024 10:01 PM EST [facility] ANION GAP 11 7 - 15 mmol/L 06/06/2024 10:01 PM EST [facility] GLUCOSE 102 70 - 120 mg/dL 06/06/2024 10:01 PM EST [facility] CALCIUM 5.0(LL) 8.4 - 10.2 mg/dL 06/06/2024 10:01 PM EST LABORATORY [facility] Blood Venous blood specimen / Unknown Venipuncture / Unknown 06/06/2024 9:06 PM EST 06/06/2024 9:15 PM EST Noah Marie DO LAB BLOOD ORDERABLES Final Res ult LABORATORY [facility] [address] [place] [address] * XR ABDOMEN 1 VIEW (06/06/2024 6:50 PM EST) Anatomical Region Laterality Modality Abdomen, Pelvis Computed Radiogr aphy 06/06/2024 7:19 PM EST Impressions 06/06/2024 7:16 PM EST IMPRESSION Similar probable ileus. Narrative 06/06/2024 7:16 PM EST EXAM XR ABDOMEN 1 VIEW-06/06/2024 6:50 pm HISTORY worsening abd pain, firm, distended COMPARISON X-ray from earlier the same date TECHNIQUE AP supine radiograph of the abdomen FINDINGS Again noted is scattered gaseous distention of the bowel, which is similar to prior and likely represents ileus. Procedure Note Berhane Marc MD - 06/06/2024 EXAM XR ABDOMEN 1 VIEW-06/06/2024 6:50 pm HISTORY worsening abd pain, firm, distended COMPARISON X-ray from earlier the same date TECHNIQUE AP supine radiograph of the abdomen FINDINGS Again noted is scattered gaseous distention of the bowel, which is similarto prior and likely represents ileus. IMPRESSION IMPRESSION Similar probable ileus. us Melinda Erickson MD RADIOLOGY ([facility]) F inal Result * EKG (06/06/2024 5:56 PM EST) 06/06/2024 5:56 PM EST Narrative Procedure Note Yannick Hall MD - 06/06/2024 5:56 PM EST REASON FOR STUDY: electrolyte abnl;electrolyte abnl;Electroly CONCLUSIONS: Warning: interpretation of this ECG, although attempted, may be adverselyaffected by data quality Unusual P axis, possible ectopic atrial rhythm Nonspecific ST abnormality Prolonged QT interval or tu fusion, consider myocardial disease,electrolyte imbalance, or drug effects When compared with ECG of 04-Jun-2024 09:41, Ectopic atrial rhythm has replaced Sinus rhythm QT has lengthened Ventricular Rate: 96 Atrial Rate: 94 QRS Duration: 72 QT/QTc: 436/550 ms P-R-T Altha: 0 : 64 : 67 degrees us Melinda Erickson MD EKG Final Res ult [facility] * (ABNORMAL) CALCIUM, IONIZED (06/06/2024 4:30 PM EST) Calcium, Ionized 0.66(LL) 1.13 - 1.32 mmol/L 06/06/2024 4:58 PM EST LAB[facility]ORY [facility] Comment:This test was develo ped and its performance characteristics dtermined by [email or web address]. It has not been cleared or approved by the US Food and Drug Administration Blood Venous blood specimen / Unknown Venipuncture / Unknown 06/06/2024 4:30 PM EST 06/06/2024 4:37 PM EST Narrative LAB[facility]ATORY [facility] - 06/06/2024 4:58 PM EST Results rechecked. us Flex Nunez MD LAB BLOOD ORDERABLES Final Resul t LABORATORY [facility] [address] [place] [address] * XR ABDOMEN 1 VIEW (06/06/2024 9:22 AM EST) Anatomical Region Laterality Modality Abdomen, Pelvis Computed Radiogr aphy 06/06/2024 9:58 AM EST Impressions 06/06/2024 9:55 AM EST IMPRESSION Variable gaseous distention of the colon. Nonobstructive bowel gas pattern. Narrative 06/06/2024 9:55 AM EST EXAM XR ABDOMEN 1 VIEW-06/06/2024 9:22 am HISTORY distended abdomen in setting of pancreatitis COMPARISON CT abdomen/pelvis 06/02/2024 TECHNIQUE Single AP view encompassing portions of the abdomen and pelvis. FINDINGS Variable gaseous distention of the colon. Nonobstructive bowel gas pattern. The osseous structures are unremarkable. Procedure Note Triffo, Ankur Quintana MD - 06/06/2024 EXAM XR ABDOMEN 1 VIEW-06/06/2024 9:22 am HISTORY distended abdomen in setting of pancreatitis COMPARISON CT abdomen/pelvis 06/02/2024 TECHNIQUE Single AP view encompassing portions of the abdomen and pelvis. FINDINGS Variable gaseous distention of the colon. Nonobstructive bowel gaspattern. The osseous structures are unremarkable. IMPRESSION IMPRESSION Variable gaseous distention of the colon. Nonobstructive bowel gaspattern. us Flex Nunez MD RADIOLOGY (RAD GENERAL) Final Re sult * (ABNORMAL) PTH (06/06/2024 5:12 AM EST) PTH 74(H) 15 - 65 pg/mL 06/06/2024 11:23 AM EST LAB[facility]ATORY [facility] Blood Venous blood specimen / Unknown Venipuncture / Unknown 06/06/2024 5:12 AM EST 06/06/2024 5:31 AM EST Angela Lala MD LAB BLOOD ORDERABLES Final Re sult Performing Organization Address [facility] de Phone Number LABORATORY [address] [address] * (ABNORMAL) 25-HYDROXY VITAMIN D (06/06/2024 5:12 AM EST) 25-Hydroxy Vitamin D <6(L) >19 ng/mL 06/06/2024 12:20 PM EST [facility] Blood Venous blood specimen / Unknown Venipuncture / Unknown 06/06/2024 5:12 AM EST 06/06/2024 5:31 AM EST Narrative LAB[facility]AT[facility] - 06/06/2024 12:20 PM EST Deficient: <20 ng/mL Insufficient: 20-29 ng/mL Recommended/Optimum:30-50 ng/mL Vitamin D intoxication is rare. If suspicious of Vitamin D toxicity, evaluation of serum Calcium and PTH is recommended. Flex Nunez MD LAB BLOOD ORDERABLES Final Resul t Performing Organization Address [facility] de Phone Number LABORATORY [address] [address] * MAGNESIUM (06/06/2024 5:12 AM EST) Magnesium 2.4 1.5 - 2.6 mg/dL 06/06/2024 11:22 AM EST LAB[facility] Blood Venous blood specimen / Unknown Venipuncture / Unknown 06/06/2024 5:12 AM EST 06/06/2024 5:31 AM EST Flex Nunez MD LAB BLOOD ORDERABLES Final Resul t [facility] [address] [place] [address] * (ABNORMAL) DIFFERENTIAL, AUTOMATED (06/06/2024 5:12 AM EST) WBC 3.28(L) 4.00 - 10.80 K/uL 06/06/2024 5:52 AM EST [facility] Neutrophils % 79.8(H) 40.0 - 75.0 % 06/06/2024 5:52 AM EST [facility] Lymphocytes % 11.0(L) 18.0 - 42.0 % 06/06/2024 5:52 AM EST [facility] Monocytes % 3.4 1.0 - 11.0 % 06/06/2024 5:52 AM EST [facility] Eosinophils % 0.0 0.0 - 6.0 % 06/06/2024 5:52 AM EST [facility] Basophils % 0.3 0.0 - 2.0 % 06/06/2024 5:52 AM EST [facility] Immature Granulocytes % 5.5(H) 0.0 - 2.0 % 06/06/2024 5:52 AM EST [facility] Absolute Neutrophils 2.62 1.80 - 7.70 K/uL 06/06/2024 5:52 AM EST [facility] Absolute Lymphocytes 0.36(L) 1.00 - 4.80 K/ul 06/06/2024 5:52 AM EST [facility] Absolute Monocytes 0.11 0.00 - 1.10 K/uL 06/06/2024 5:52 AM EST [facility] Absolute Eosinophils 0.00 0.00 - 0.70 K/uL 06/06/2024 5:52 AM EST [facility] Absolute Basophils 0.01 0.00 - 0.20 K/uL 06/06/2024 5:52 AM EST [facility] Absolute Immature Granulocytes 0.18 0.00 - 0.20 K/uL 06/06/2024 5:52 AM EST [facility] Blood Venous blood specimen / Unknown Venipuncture / Unknown 06/06/2024 5:12 AM EST 06/06/2024 5:31 AM EST us Flex Nunez MD LAB BLOOD ORDERABLES Final Resul t Performing Organization Address City/[facility]/ZIP Co de Phone Number LABORATORY [facility] [address] [place] [address] * (ABNORMAL) CBC (06/06/2024 5:12 AM EST) WBC 3.28(L) 4.00 - 10.80 K/uL 06/06/2024 5:52 AM EST [facility] RBC 3.59 3.85 - 5.15 M/uL 06/06/2024 5:52 AM EST [facility] HGB 9.4(L) 12.0 - 15.3 g/dL 06/06/2024 5:52 AM EST [facility] HCT 31.0(L) 36.0 - 45.2 % 06/06/2024 5:52 AM EST [facility] MCV 86.4 81.5 - 97.5 fL 06/06/2024 5:52 AM EST [facility] MCH 26.2 27.0 - 34.0 pg 06/06/2024 5:52 AM EST [facility] MCHC 30.3 32.0 - 36.0 g/dL 06/06/2024 5:52 AM EST [facility] RDW 19.0 11.5 - 15.5 % 06/06/2024 5:52 AM EST [facility] PLT 301 140 - 400 K/uL 06/06/2024 5:52 AM EST [facility] MPV 8.8 6.6 - 11.1 fL 06/06/2024 5:52 AM EST [facility] nRBCs 0 <=0 /100 WBCs 06/06/2024 5:52 AM EST [facility] Blood Venous blood specimen / Unknown Venipuncture / Unknown 06/06/2024 5:12 AM EST 06/06/2024 5:31 AM EST us Flex Nunez MD LAB BLOOD ORDERABLES Final Resul t Performing Organization Address City/[facility]/ZIP Co de Phone Number LABORATORY [facility] [address], [place] [id number] * (ABNORMAL) COMPREHENSIVE METABOLIC PANEL (06/06/2024 5:12 AM EST) BUN 9 6 - 20 mg/dL 06/06/2024 11:22 AM EST [facility] CREATININE 0.4(L) 0.5 - 1.0 mg/dL 06/06/2024 11:22 AM EST [facility] EGFR >90 >=60 mL/min 06/06/2024 11:22 AM EST [facility] Comment:eGFR is calculated b ased on the CKD-EPI 2020 equation. SODIUM 137 135 - 146 mmol/L 06/06/2024 11:22 AM EST [facility] POTASSIUM 3.8 3.5 - 5.1 mmol/L 06/06/2024 11:22 AM EST [facility] CHLORIDE 107 98 - 107 mmol/L 06/06/2024 11:22 AM EST [facility] CO2 18(L) 22 - 32 mmol/L 06/06/2024 11:22 AM EST [facility] ANION GAP 12 7 - 15 mmol/L 06/06/2024 11:22 AM EST [facility] GLUCOSE 80 70 - 120 mg/dL 06/06/2024 11:22 AM EST [facility] Albumin 2.2(L) 3.8 - 5.0 g/dL 06/06/2024 11:22 AM EST [facility] AST 109(H) 10 - 35 U/L 06/06/2024 11:22 AM EST [facility] Alkaline Phosphatase 90 35 - 130 U/L 06/06/2024 11:22 AM EST [facility] Bilirubin, Total 0.2 <=1.2 mg/dL 06/06/2024 11:22 AM EST [facility] CALCIUM 4.5(LL) 8.4 - 10.2 mg/dL 06/06/2024 11:22 AM EST [facility] Protein 5.1(L) 6.0 - 8.3 g/dL 06/06/2024 11:22 AM EST [facility] ALT 41(H) 10 - 35 U/L 06/06/2024 11:22 AM EST [facility] Blood Venous blood specimen / Unknown Venipuncture / Unknown 06/06/2024 5:12 AM EST 06/06/2024 5:31 AM EST Noah Marie DO LAB BLOOD ORDERABLES Final Res ult [facility] [address] [place] [address] * APTT (06/06/2024 5:12 AM EST) aPTT 35 21 - 38 seconds 06/06/2024 6:16 AM EST [facility] Blood Venous blood specimen / Unknown Venipuncture / Unknown 06/06/2024 5:12 AM EST 06/06/2024 5:31 AM EST Narrative LAB[facility] - 06/06/2024 6:16 AM EST Anticoagulation may affect testing. Refer to [employer] Test Catalog for a list of effects. us Noah Marie DO LAB BLOOD ORDERABLES Final Res ult Performing Organization Address [facility] Co de Phone Number LABORATORY [facility] [address] [place] [address] * PT INR (06/06/2024 5:12 AM EST) Prothrombin Time 13.5 11.6 - 15.2 seconds 06/06/2024 6:15 AM EST [facility] INR 1.0 0.8 - 1.2 06/06/2024 6:15 AM EST [facility] Blood Venous blood specimen / Unknown Venipuncture / Unknown 06/06/2024 5:12 AM EST 06/06/2024 5:31 AM EST Narrative [facility] - 06/06/2024 6:15 AM EST Warfarin Therapy INR: 2.0-3.0 conventional anticoagulation INR: 2.5-3.5 high intensity anticoagulation Noah Marie DO LAB BLOOD ORDERABLES Final Res ult [facility] [address] [place] [address] * (ABNORMAL) TRIGLYCERIDES (06/06/2024 5:12 AM EST) Triglycerides 465(H) <=174 mg/dL 06/06/2024 6:23 AM EST LAB[facility]ORY [facility] Comment: Triglyceride Reference Ranges (mg/dL): <150 Acceptable 150-174 Borderline high 175-499 High >=500 Very high Blood Venous blood specimen / Unknown Venipuncture / Unknown 06/06/2024 5:12 AM EST 06/06/2024 5:31 AM EST Noah Marie DO LAB BLOOD ORDERABLES Final Res ult [facility] [address] [place] [address] * (ABNORMAL) LD (06/06/2024 5:12 AM EST) LD 611(H) <=250 U/L 06/06/2024 6:23 AM EST [facility] Blood Venous blood specimen / Unknown Venipuncture / Unknown 06/06/2024 5:12 AM EST 06/06/2024 5:31 AM EST Noah Marie DO LAB BLOOD ORDERABLES Final Res ult Performing Organization Address City/[facility]/ZIP Co de Phone Number LAB[facility]ATORY [facility] [address] [place] [address] * (ABNORMAL) FERRITIN (06/06/2024 5:12 AM EST) Ferritin 6,885(H) 13 - 150 ng/mL 06/06/2024 12:20 PM EST [facility] Blood Venous blood specimen / Unknown Venipuncture / Unknown 06/06/2024 5:12 AM EST 06/06/2024 5:31 AM EST Noah Marie DO LAB BLOOD ORDERABLES Final Res ult Performing Organization Address City/[facility]/ZIP Co de Phone Number LAB[facility]ATORY [facility] [address] [place] [address] * (ABNORMAL) CRP (INFLAMMATORY MARKER) (06/06/2024 5:12 AM EST) Pathologist [facility] CRP (Inflammatory Marker) 31(H) <=5 mg/L 06/06/2024 6:23 AM EST LAB[facility] Blood Venous blood specimen / Unknown Venipuncture / Unknown 06/06/2024 5:12 AM EST 06/06/2024 5:31 AM EST Noah Marie DO LAB BLOOD ORDERABLES Final Res ult Performing Organization Address [facility] de Phone Number LAB[facility]ATORY [facility] [address] [place] [address] * (ABNORMAL) ERYTHROCYTE SEDIMENTATION RATE (ESR) (06/06/2024 5:12 AM EST) [facility] ESR 35(H) <20 mm/hour 06/06/2024 6:36 AM EST [facility] Blood Venous blood specimen / Unknown Venipuncture / Unknown 06/06/2024 5:12 AM EST 06/06/2024 5:31 AM EST Noah Marie DO LAB BLOOD ORDERABLES Final Res ult Performing Organization Address [facility] [place] [address] * (ABNORMAL) CALCIUM, IONIZED (06/06/2024 5:12 AM EST) [facility] Calcium, Ionized 0.72(LL) 1.13 - 1.32 mmol/L 06/06/2024 6:34 AM EST [facility] Comment:This test was develo ped and its performance characteristics dtermined by [email or web address]. It has not been cleared or approved by the [place] Food and Drug Administration Blood Venous blood specimen / Unknown Venipuncture / Unknown 06/06/2024 5:12 AM EST 06/06/2024 5:31 AM EST Flex Nunez MD LAB BLOOD ORDERABLES Final Resul t Performing Organization Address [facility] de Phone Number LAB[facility]ATORY [facility] [address] [place] [address] * (ABNORMAL) CYSTATIN C WITH EGFR (06/05/2024 8:58 AM EST) [facility] Cystatin C 1.40(H) 0.63 - 1.03 mg/L 06/05/2024 9:32 PM EST LAB[facility] eGFR (CysC) 53(L) >=60 mL/min 06/05/2024 9:32 PM EST [facility] Comment:eGFR is calculated b ased on the CKD-EPI 2012 equation. Blood Venous blood specimen / Unknown Venipuncture / Unknown 06/05/2024 8:58 AM EST 06/05/2024 9:35 AM EST Brian Edward DO LAB BLOOD ORDERABLES Final Result Performing Organization Address [facility] Co de Phone Number [facility] [place] [address] [place] [address] * (ABNORMAL) SERUM FREE LIGHT CHAINS (06/05/2024 8:58 AM EST) [facility] [place] Free Light Chains, Serum 67.10(H) 3.30 - 19.40 mg/L 06/06/2024 11:40 AM EST [facility] [place]ambda Free Light Chains, Serum 58.19(H) 5.71 - 26.30 mg/L 06/06/2024 11:40 AM EST [facility] [place] Lambda Free Light Chains Ratio 1.15 0.26 - 1.65 06/06/2024 11:40 AM EST [facility] [place] Blood Venous blood specimen / Unknown Venipuncture / Unknown 06/05/2024 8:58 AM EST 06/05/2024 9:35 AM EST Sue Blanton DO LAB BLOOD ORDERABLES Fin al Result Performing Organization Address [facility]/ZIP Co de Phone Number [facility] [place] [address] [address] [place] [address] * (ABNORMAL) DOUBLE STRANDED DNA (DSDNA) ANTIBODY, IFA (06/05/2024 8:58 AM EST) [facility] Double Stranded DNA (dsDNA) Antibody Interpretation Positive( A) Negative 06/09/2024 12:39 PM EST [facility] Double Stranded DNA (dsDNA) Antibody Titer 1:10 <1:10 Titer 06/09/2024 12:39 PM EST [facility] Blood Venous blood specimen / Unknown Venipuncture / Unknown 06/05/2024 8:58 AM EST 06/05/2024 9:35 AM EST Tiffanie Fisher MD LAB BLOOD ORDERABLES Fin al Result Performing Organization Address City/[facility]/ZIP Co de Phone Number LABORATORY [place] [address] [place] [address] * (ABNORMAL) PHOSPHORUS (06/05/2024 8:58 AM EST) [facility] Phosphorus 2.1(L) 2.5 - 4.8 mg/dL 06/05/2024 10:55 AM EST [facility] Blood Venous blood specimen / Unknown Venipuncture / Unknown 06/05/2024 8:58 AM EST 06/05/2024 9:35 AM EST Flex Nunez MD LAB BLOOD ORDERABLES Final Resul t Performing Organization Address [facility]/ZIP Co de Phone Number LABORATORY [address] [address] * (ABNORMAL) IMMUNOGLOBULIN G SUBCLASSES (06/05/2024 8:58 AM EST) [facility] Immunoglobulin G Subclass 1 854 382 - 929 mg/dL 06/09/2024 4:15 AM EST [facility] Immunoglobulin G Subclass 2 102(L) 241 - 700 mg/dL 06/09/2024 4:15 AM EST [facility] Immunoglobulin G Subclass 3 66 22 - 178 mg/dL 06/09/2024 4:15 AM EST [facility] Immunoglobulin G Subclass 4 8.9 4.0 - 86.0 mg/dL 06/09/2024 4:15 AM EST [facility] Immunoglobulin G, Serum 1209 600 - 1640 mg/dL 06/09/2024 4:15 AM EST [facility] Comment: Test Performed at: [employer] [facility] [address] [place] [address] Rei Kimball M.D., Ph.D.,Director of Laboratories Blood Venous blood specimen / Unknown Venipuncture / Unknown 06/05/2024 8:58 AM EST 06/05/2024 9:36 AM EST Linwood Carrillo DO LAB BLOOD ORDERABLES Final Resu lt [employer] [place] [address] [place] [address] * (ABNORMAL) ANTINUCLEAR ANTIBODY (DESTINY), IFA (06/05/2024 8:58 AM EST) Antinuclear Antibody Interpretation , IFA Positive(A) Negative 06/07/2024 11:17 AM EST [facility] Antinuclear Antibody Titer, IFA 1:640 <1:80 Titer 06/07/2024 11:17 AM EST [facility] Antinuclear Antibody Pattern, IFA Cytoplasmic Fibrillar 06/07/2024 11:17 AM EST [facility] Blood Venous blood specimen / Unknown Venipuncture / Unknown 06/05/2024 8:58 AM EST 06/05/2024 9:35 AM EST Flex Nunez MD LAB BLOOD ORDERABLES Final Resul t Performing Organization Address City/[facility]/ZIP Co de Phone Number [facility]AT[facility] [address] [place] [address] * FILARIA ANTIBODY (IGG4) (06/05/2024 6:44 AM EST) Filaria Antibody (IGG4) 0.54 INDEX 06/12/2024 1:07 PM EST [employer] [facility] [place] Comment: REFERENCE RANGE: <2.50 INTERPRETIVE CRITERIA: <2.50 NEGATIVE >=2.50 POSITIVE This assay detects Filaria IgG4 associated with infections caused by the major filarial parasites, including Dirofilaria immitis, Wuchereria brancrofti, Brugia malayi, and Onchocerca volvulus. Chronic filarial infections manifesting as elephantiasis may not show a significant IgG4 response and cannot be ruled out using this test. Samples containing antibodies to other nematodes, particularly Strongyloides, may cross-react in the assay. This test was developed and its analytical performance characteristics have been determined by [employer]. It has not been cleared or approved by the U.S. Food and Drug Administration. This assay has been validated pursuant to the CLIA regulations and is used for clinical purposes. Test performed by [employer] [address] [place] [address] Chief Engineer Production: Svetlana Gruber MD,PHD,THERON Test Reported by [employer], [employer] [facility], [address] [place], [place] Rei Kimball M.D., Ph.D., Director of Laboratories , CLIA [id number] Blood Venous blood specimen / Unknown Venipuncture / Unknown 06/05/2024 6:44 AM EST 06/05/2024 6:49 AM EST us Flex Nunez MD LAB BLOOD ORDERABLES Final Resul t [employer] [place] [address] [place] [address] * US ABDOMEN COMPLETE (06/05/2024 6:17 AM EST) Anatomical Region Laterality Modality Abdomen, Body Ultrasound 06/05/2024 6:31 AM EST Impressions 06/05/2024 6:29 AM EST IMPRESSION 1. Heterogenous appearance of the pancreas with trace fluid about the pancreatic head in keeping with known pancreatitis 2. Cholelithiasis with trace pericholecystic fluid a possibly related to pancreatitis. The gallbladder wall is at the upper limits of normal in thickness negative sonographic Turner's sign. Findings are equivocal for equivocal for acute cholecystitis. Fluid cystitis 3. Hepatic steatosis. Narrative 06/05/2024 6:29 AM EST EXAM US ABDOMEN COMPLETE-06/05/2024 6:17 am HISTORY please assess for CBD dilation and possible gallstones as cause of pancreatitis TECHNIQUE Sonographic imaging of the abdomen. COMPARISON CT abdomen pelvis 06/02/2024 FINDINGS LIVER: Increased echogenicity no mass. BILE DUCTS: No intrahepatic or extrahepatic duct dilatation. Common bile duct measures 3 mm. GALLBLADDER: Cholelithiasis. Gallbladder wall is at the upper limits of normal.. Trace pericholecystic fluid. Negative sonographic Turner's sign. PANCREAS: Heterogenous appearance of the pancreas. Trace fluid about the pancreatic head. RIGHT KIDNEY: 11.7 cm in length. Normal size and echogenicity. No hydronephrosis, shadowing calculi, or mass. LEFT KIDNEY: 12.0 cm in length. Normal size and echogenicity. No hydronephrosis, shadowing calculi, or mass. SPLEEN: 11.4 cm. Normal size without mass. AORTA: Visualized portions normal in caliber. OTHER: No ascites. Procedure Note Edgard Brody MD - 06/05/2024 EXAM US ABDOMEN COMPLETE-06/05/2024 6:17 am HISTORY please assess for CBD dilation and possible gallstones as cause ofpancreatitis TECHNIQUE Sonographic imaging of the abdomen. COMPARISON CT abdomen pelvis 06/02/2024 FINDINGS LIVER: Increased echogenicity no mass. BILE DUCTS: No intrahepatic or extrahepatic duct dilatation. Common bileduct measures 3 mm. GALLBLADDER: Cholelithiasis. Gallbladder wall is at the upper limits ofnormal.. Trace pericholecystic fluid. Negative sonographic Turner'ssign. PANCREAS: Heterogenous appearance of the pancreas. Trace fluid about thepancreatic head. RIGHT KIDNEY: 11.7 cm in length. Normal size and echogenicity. Nohydronephrosis, shadowing calculi, or mass. LEFT KIDNEY: 12.0 cm in length. Normal size and echogenicity. Nohydronephrosis, shadowing calculi, or mass. SPLEEN: 11.4 cm. Normal size without mass. AORTA: Visualized portions normal in caliber. OTHER: No ascites. IMPRESSION IMPRESSION 1. Heterogenous appearance of the pancreas with trace fluid about thepancreatic head in keeping with known pancreatitis 2. Cholelithiasis with trace pericholecystic fluid a possibly related topancreatitis. The gallbladder wall is at the upper limits of normal inthickness negative sonographic Turner's sign. Findings are equivocal forequivocal for acute cholecystitis. Fluid cystitis 3. Hepatic steatosis. us Sue Blanton DO RAD ULTRASOUND Final Re sult * (ABNORMAL) DIFFERENTIAL, AUTOMATED (06/05/2024 5:52 AM EST) WBC 3.12(L) 4.00 - 10.80 K/uL 06/05/2024 6:40 AM EST [facility] Neutrophils % 79.2(H) 40.0 - 75.0 % 06/05/2024 6:40 AM EST [facility] Lymphocytes % 12.5(L) 18.0 - 42.0 % 06/05/2024 6:40 AM EST [facility] Monocytes % 2.9 1.0 - 11.0 % 06/05/2024 6:40 AM EST [facility] Eosinophils % 0.0 0.0 - 6.0 % 06/05/2024 6:40 AM EST [facility] Basophils % 0.0 0.0 - 2.0 % 06/05/2024 6:40 AM EST [facility] Immature Granulocytes % 5.4(H) 0.0 - 2.0 % 06/05/2024 6:40 AM EST [facility] Absolute Neutrophils 2.47 1.80 - 7.70 K/uL 06/05/2024 6:40 AM EST [facility] Absolute Lymphocytes 0.39(L) 1.00 - 4.80 K/ul 06/05/2024 6:40 AM EST [facility] Absolute Monocytes 0.09 0.00 - 1.10 K/uL 06/05/2024 6:40 AM EST [facility] Absolute Eosinophils 0.00 0.00 - 0.70 K/uL 06/05/2024 6:40 AM EST [facility] Absolute Basophils 0.00 0.00 - 0.20 K/uL 06/05/2024 6:40 AM EST [facility] Absolute Immature Granulocytes 0.17 0.00 - 0.20 K/uL 06/05/2024 6:40 AM EST [facility] Blood Venous blood specimen / Unknown Venipuncture / Unknown 06/05/2024 5:52 AM EST 06/05/2024 6:23 AM EST us Flex Nunez MD LAB BLOOD ORDERABLES Final Resul t Performing Organization Address City/[facility]/ZIP Co de Phone Number [facility] [address] [place] [address] * (ABNORMAL) CBC (06/05/2024 5:52 AM EST) WBC 3.12(L) 4.00 - 10.80 K/uL 06/05/2024 6:40 AM EST [facility] RBC 3.42 3.85 - 5.15 M/uL 06/05/2024 6:40 AM EST [facility] HGB 9.0(L) 12.0 - 15.3 g/dL 06/05/2024 6:40 AM EST [facility] HCT 29.0(L) 36.0 - 45.2 % 06/05/2024 6:40 AM EST [facility] MCV 84.8 81.5 - 97.5 fL 06/05/2024 6:40 AM EST [facility] MCH 26.3 27.0 - 34.0 pg 06/05/2024 6:40 AM EST [facility] MCHC 31.0 32.0 - 36.0 g/dL 06/05/2024 6:40 AM EST [facility] RDW 18.6 11.5 - 15.5 % 06/05/2024 6:40 AM EST [facility] PLT 319 140 - 400 K/uL 06/05/2024 6:40 AM EST [facility] MPV 8.8 6.6 - 11.1 fL 06/05/2024 6:40 AM EST [facility] nRBCs 0 <=0 /100 WBCs 06/05/2024 6:40 AM EST [facility] Blood Venous blood specimen / Unknown Venipuncture / Unknown 06/05/2024 5:52 AM EST 06/05/2024 6:23 AM EST us Flex Nunez MD LAB BLOOD ORDERABLES Final Resul t Performing Organization Address City/[facility]/ZIP Co de Phone Number LAB[facility]ATORY [facility] [address] [place] [address] * (ABNORMAL) COMPREHENSIVE METABOLIC PANEL (06/05/2024 5:51 AM EST) Pathologist [facility] BUN 10 6 - 20 mg/dL 06/05/2024 6:59 AM EST [facility] CREATININE 0.4(L) 0.5 - 1.0 mg/dL 06/05/2024 6:59 AM EST [facility] EGFR >90 >=60 mL/min 06/05/2024 6:59 AM EST [facility] Comment:eGFR is calculated b ased on the CKD-EPI 2020 equation. SODIUM 137 135 - 146 mmol/L 06/05/2024 6:59 AM EST [facility] POTASSIUM 3.3(L) 3.5 - 5.1 mmol/L 06/05/2024 6:59 AM EST [facility] CHLORIDE 107 98 - 107 mmol/L 06/05/2024 6:59 AM EST [facility] CO2 19(L) 22 - 32 mmol/L 06/05/2024 6:59 AM EST [facility] ANION GAP 11 7 - 15 mmol/L 06/05/2024 6:59 AM EST [facility] GLUCOSE 86 70 - 120 mg/dL 06/05/2024 6:59 AM EST [facility] Albumin 2.2(L) 3.8 - 5.0 g/dL 06/05/2024 6:59 AM EST [facility] AST 121(H) 10 - 35 U/L 06/05/2024 6:59 AM EST [facility] Alkaline Phosphatase 89 35 - 130 U/L 06/05/2024 6:59 AM EST [facility] Bilirubin, Total 0.2 <=1.2 mg/dL 06/05/2024 6:59 AM EST [facility] CALCIUM 6.3(L) 8.4 - 10.2 mg/dL 06/05/2024 6:59 AM EST [facility] Protein 5.1(L) 6.0 - 8.3 g/dL 06/05/2024 6:59 AM EST [facility] ALT 43(H) 10 - 35 U/L 06/05/2024 6:59 AM EST [facility] Blood Venous blood specimen / Unknown Venipuncture / Unknown 06/05/2024 5:51 AM EST 06/05/2024 6:23 AM EST Noah Marie DO LAB BLOOD ORDERABLES Final Res ult Performing Organization Address [facility]/ZIP Co de Phone Number LABORATORY [address] [address] * APTT (06/05/2024 5:51 AM EST) aPTT 36 21 - 38 seconds 06/05/2024 7:09 AM EST [facility] Blood Venous blood specimen / Unknown Venipuncture / Unknown 06/05/2024 5:51 AM EST 06/05/2024 6:23 AM EST Narrative [facility] - 06/05/2024 7:09 AM EST Anticoagulation may affect testing. Refer to [employer] Test Catalog for a list of effects. Noah Marie DO LAB BLOOD ORDERABLES Final Res ult Performing Organization Address [facility] de Phone Number LABORATORY [address] [address] * (ABNORMAL) D-DIMER (06/05/2024 5:51 AM EST) D-Dimer 4.09(H) <0.50 ug/mL FEU 06/05/2024 7:19 AM EST [facility] Blood Venous blood specimen / Unknown Venipuncture / Unknown 06/05/2024 5:51 AM EST 06/05/2024 6:23 AM EST Narrative [facility] - 06/05/2024 7:19 AM EST Rheumatoid factor at a level above 50 IU/mL may lead to an overestimation of the D-dimer level. A normal D-dimer result (<0.50 ug/mL FEU) has a negative predictive value of approximately 95% for the exclusion of acute pulmonary embolism (PE) or deep vein thrombosis when there is low or moderate pretest PE probability. Increased D-dimer values are abnormal but do not indicate a specific disease state and the D-dimer increase does not definitively correlate with clinical severity of disease. Noah Marie DO LAB BLOOD ORDERABLES Final Res ult Performing Organization Address [facility] Co de Phone Number [facility]ATORY [facility] [address] [place] [address] * PT INR (06/05/2024 5:51 AM EST) Prothrombin Time 13.0 11.6 - 15.2 seconds 06/05/2024 7:09 AM EST [facility] INR 1.0 0.8 - 1.2 06/05/2024 7:09 AM EST [facility] Blood Venous blood specimen / Unknown Venipuncture / Unknown 06/05/2024 5:51 AM EST 06/05/2024 6:23 AM EST Narrative LABORATORY C - 06/05/2024 7:09 AM EST Warfarin Therapy INR: 2.0-3.0 conventional anticoagulation INR: 2.5-3.5 high intensity anticoagulation Noah Marie DO LAB BLOOD ORDERABLES Final Res ult Performing Organization Address [facility] de Phone Number [facility]ATORY [facility] [address] [place] [address] * (ABNORMAL) TRIGLYCERIDES (06/05/2024 5:51 AM EST) Pathologist [facility] Triglycerides 507(H) <=174 mg/dL 06/05/2024 6:59 AM EST [facility] Comment: Triglyceride Reference Ranges (mg/dL): <150 Acceptable 150-174 Borderline high 175-499 High >=500 Very high Blood Venous blood specimen / Unknown Venipuncture / Unknown 06/05/2024 5:51 AM EST 06/05/2024 6:23 AM EST Noah [employer] LAB BLOOD ORDERABLES Final Res ult Performing Organization Address [facility] Co de Phone Number [facility]ATORY [facility] [address] [place] [address] * (ABNORMAL) LD (06/05/2024 5:51 AM EST) Pathologist [facility] LD 532(H) <=250 U/L 06/05/2024 6:59 AM EST [facility] Blood Venous blood specimen / Unknown Venipuncture / Unknown 06/05/2024 5:51 AM EST 06/05/2024 6:23 AM EST Noah Marie DO LAB BLOOD ORDERABLES Final Res ult Performing Organization Address City/[facility]/ZIP Co de Phone Number [facility]ATORY [facility] [address] [place] [address] * (ABNORMAL) FERRITIN (06/05/2024 5:51 AM EST) Ferritin 7,613(H) 13 - 150 ng/mL 06/05/2024 10:30 AM EST [facility] Blood Venous blood specimen / Unknown Venipuncture / Unknown 06/05/2024 5:51 AM EST 06/05/2024 6:23 AM EST Noah Marie DO LAB BLOOD ORDERABLES Final Res ult Performing Organization Address [facility] Co de Phone Number [facility]ATORY [facility] [address] [place] [address] * (ABNORMAL) CRP (INFLAMMATORY MARKER) (06/05/2024 5:51 AM EST) [facility] CRP (Inflammatory Marker) 32(H) <=5 mg/L 06/05/2024 6:59 AM EST [facility] Blood Venous blood specimen / Unknown Venipuncture / Unknown 06/05/2024 5:51 AM EST 06/05/2024 6:23 AM EST Noah Marie DO LAB BLOOD ORDERABLES Final Res ult Performing Organization Address City/[facility] de Phone Number [facility]ATORY [facility] [address] [place] [address] * (ABNORMAL) ERYTHROCYTE SEDIMENTATION RATE (ESR) (06/05/2024 5:51 AM EST) Pathologist [facility] ESR 32(H) <20 mm/hour 06/05/2024 6:48 AM EST [facility] Blood Venous blood specimen / Unknown Venipuncture / Unknown 06/05/2024 5:51 AM EST 06/05/2024 6:23 AM EST us Noah Marie DO LAB BLOOD ORDERABLES Final Res ult [facility] [address] [place] [address] * (ABNORMAL) URINALYSIS, REFLEX TO CULTURE (06/04/2024 11:18 PM EST) Color, Urine Yellow Colorless, Light Yellow, Yellow, Dark Yellow 06/04/2024 11:43 PM EST [facility] Clarity, Urine Clear Clear 06/04/2024 11:43 PM EST [facility] Glucose, Urine Negative Negative mg/dL 06/04/2024 11:43 PM EST [facility] Bilirubin, Urine Negative Negative 06/04/2024 11:43 PM EST [facility] Ketone, Urine Negative Negative mg/dL 06/04/2024 11:43 PM EST [facility] Specific [place], Urine 1.042(H) 1.003 - 1.030 06/04/2024 11:43 PM EST [facility] Blood, Urine Moderate(A) Negative 06/04/2024 11:43 PM EST [facility] pH, Urine 6.0 5.0 - 7.5 Units 06/04/2024 11:43 PM EST [facility] Protein, Urine 30(A) Negative mg/dL 06/04/2024 11:43 PM EST [facility] Urobilinogen, Urine Normal Normal mg/dL 06/04/2024 11:43 PM EST [facility] Nitrite, Urine Negative Negative 06/04/2024 11:43 PM EST [facility] Esterase, Urine Negative Negative 06/04/2024 11:43 PM EST [facility] RBC, Urine 30-49(A) 0 - 2 /HPF 06/04/2024 11:43 PM EST [facility] WBC, Urine 0-2 0 - 2 /HPF 06/04/2024 11:43 PM EST [facility] Bacteria, Urine 0-25 0 - 25 /HPF 06/04/2024 11:43 PM EST [facility] Culture, Urine 06/04/2024 11:43 PM EST [facility] Comment:Culture not indicate d by urinalysis results Urine Urine specimen obtained by clean catch procedure / Unknown Non-blood Collection / Unknown 06/04/2024 11:18 PM EST 06/04/2024 11:30 PM EST us Flex Nunez MD LAB URINE ORDERABLES Final Resul t Performing Organization Address [facility] Co de Phone Number [facility]ATORY [facility] [address] [place] [address] * URINALYSIS, REFLEX TO CULTURE (CUP ONLY) (06/04/2024 11:18 PM EST) Urinalysis, Reflex to Culture Specimen Specimen collected and received 06/05/2024 1:01 AM EST [facility] Urine Urine specimen obtained by clean catch procedure / Unknown Non-blood Collection / Unknown 06/04/2024 11:18 PM EST 06/04/2024 11:30 PM EST us Flex Nunez MD LAB URINE ORDERABLES Final Resul t Performing Organization Address [facility] de Phone Number LABORATORY [address] [address] * (ABNORMAL) PROTEIN/ CREATININE RATIO, URINE (06/04/2024 11:18 PM EST) Protein/ Creatinine Ratio, Urine 1,151(H) <150 mg/g 06/05/2024 12:03 AM EST [facility] Protein, Random Urine 99 mg/dL 06/05/2024 12:03 AM EST [facility] Creatinine, Random Urine 86 mg/dL 06/05/2024 12:03 AM EST [facility] Urine Non-blood Collection / Unknown 06/04/2024 11:18 PM EST 06/04/2024 11:30 PM EST Narrative [facility] - 06/05/2024 12:03 AM EST Normal: <150 mg/g creatinine High: 150-500 mg/g creatinine Very High: >500 mg/g creatinine Nephrotic: >3000 mg/g creatinine us Flex Nunez MD LAB URINE ORDERABLES Final Resul t [facility] [address] [place] [address] * (ABNORMAL) HISTONE ANTIBODIES (06/04/2024 9:58 PM EST) Histone Antibodies 4.1(H) <1.0 U 06/09/2024 12:54 PM EST [employer] [place] Comment: Value Explanation of Results ------ <1.0 Negative 1.0 - 1.5 Weak Positive 1.6 - 2.5 Moderate Positive >2.5 Strong Positive Test Performed at: [employer] [address] [address] Rei Kimball M.D., Ph.D.,Director of Laboratories Blood Venous blood specimen / Unknown Venipuncture / Unknown 06/04/2024 9:58 PM EST 06/04/2024 10:17 PM EST [facility] BLOOD ORDERABLES Fin al Result Performing Organization Address [facility] Co de Phone Number [employer] [address] [address] * ANCA, IFA (06/04/2024 9:58 PM EST) c-ANCA Negative Negative 06/07/2024 10:52 AM EST [facility] p-ANCA Negative Negative 06/07/2024 10:52 AM EST [facility] Comment:Negative for ANCA. Blood Venous blood specimen / Unknown Venipuncture / Unknown 06/04/2024 9:58 PM EST 06/04/2024 10:17 PM EST [facility]ne Ayalael DO LAB BLOOD ORDERABLES Fin al Result Performing Organization Address City/[facility]/ZIP Co de Phone Number LAB[facility]ATORY [facility] [address] [place] [address] * THYROID PEROXIDASE ANTIBODY (06/04/2024 9:58 PM EST) Thyroid Peroxidase Antibody 7.5 <34.0 IU/mL 06/04/2024 11:10 PM EST [facility] Blood Venous blood specimen / Unknown Venipuncture / Unknown 06/04/2024 9:58 PM EST 06/04/2024 10:17 PM EST Sue Blanton DO LAB BLOOD ORDERABLES Fin al Result [facility] [address] [place] [address] * SURGICAL PATHOLOGY (06/04/2024 4:49 PM EST) Addendum Deeper tissue levels were obtained. Very few dyskeratotic epidermal keratinocytes are noted. No other significant additional histologic findings are noted. The number of dyskeratotic keratinocytes is less than what would be expected in a cutaneous manifestation of Still disease. 06/08/2024 5:45 PM EST [facility] Addendum electronically signed by Mark Vega MD on 06/08/2024 at 5:45 PM Final Diagnosis A. Skin, right arm, shave: Very mild epidermal keratinocyte dysmaturation and focal superficial dermal inflammation (see comment) Comment: Hematoxylin and eosin stained sections reveal very mild dysmaturation of keratinocytes in the epidermis. The superficial dermis shows a very mild focal perivascular lymphocytic infiltrate as well as melanin pigment deposition. Definitive pathogenic fungal hyphal forms are not identified in the planes of section examined on PAS special stain (controls appropriate). Overt histologic evidence of adult onset Still disease, such as dyskeratotic keratinocytes in the epidermis or mixed/neutrophilic dermal infiltrate, are not identified in the planes of section examined. However, the specimen could represent an early evolving or resolving dermatitis. Clinical correlation is required. A repeat sampling of the rash/lesions with deeper portions of tissue should be considered if there is persistence, recurrence, worsening, failed response to treatment/interven tion, or continued clinical uncertainty. 06/08/2024 5:45 PM EST [facility] Clinical History rash 06/08/2024 5:45 PM EST [facility] Order Comments A. Very subtle erythematous macules and papules coalescing into larger patches/plaques on upper chest, proximal arms and face. Pt admitted for potential adult onset stills disease. Ddx exanthematous drug eruption, Stills, viral exanthem 06/08/2024 5:45 PM EST [facility] Gross Description A. Arm, Right. Received in formalin with a container labeled with "Bhavin Wilson", "[id number]", "1995" and " right arm". Received is a 0.8 x 0.6 cm skin shave. The skin surface is king to bello, firm, smooth throughout, previously inked. The underlying tissue is inked. The specimen is trisected and submitted in cassette A1. Gross By: MF 06/08/2024 5:45 PM EST [facility] Photographic images and diagrams represent armenta findings in this case; they are not intended to replace a complete review of the final diagnostic report. The following statement applies to Flow Cytometry, Histology, In situ Hybridization Assays and Molecular Genetics. This test was developed and performed at [facility] and its performance characteristics determined by [facility]. It has not been cleared or approved by the U.S. Food and Drug Administration. The FDA has determined that such clearance or approval is not necessary. This test is used for clinical purposes. It should not be regarded as investigational or for research. Special stains, including histochemical stains, and studies using immunologic and GENE methodology (where applicable) are performed with appropriate positive and negative control reactions. 06/08/2024 5:45 PM EST LAB[facility]ORY [facility] Tissue Right upper arm structure / Unknown 06/04/2024 4:49 PM EST 06/04/2024 5:02 PM EST Comment:A. Very subtle eryth ematous macules and papules coalescing into larger patches/plaques on upper chest, proximal arms and face. Pt admitted for potential adult onset stills disease. Ddx exanthematous drug eruption, Stills, viral exanthem us Scott Marie MD LAB PATHOLOGY ORDERABLES E dited Result - Final [facility] [address] [place] [address] * CYTOGENETICS ONCOLOGY CHROMOSOME ANALYSIS (06/04/2024 2:26 PM EST) Pathologist [facility] External Lab Report See Scanned Report 06/12/2024 10:50 AM EST LABORATORY [facility] Bone Marrow Venous blood specimen / Unknown 06/04/2024 2:26 PM EST 06/12/2024 10:47 AM EST us Aleksandra Knutson MD LAB BLOOD ORDERABLES Final Re sult LAB[facility]ATORY [facility] [address] [place] [address] * FLOW CYTOMETRY, LEUKEMIA LYMPHOMA PANEL (06/04/2024 2:26 PM EST) Pathologist [facility] Indication for Flow Testing Unexplained cytopenia 06/08/2024 2:03 PM EST LABORATORY [facility] Viability (%) Specimen A: 100 % 06/08/2024 2:03 PM EST [facility]ATORY [facility] Cell Count Specimen A: 1740 Cells/uL in 4 mL of fluid Cells/u L in mL of Fluid 06/08/2024 2:03 PM EST LAB[facility]ATORY [facility] Gross Description A. Bone Marrow, Aspirate. Specimen: A, Source: Bone Marrow, Aspirate See 06/08/2024 2:03 PM EST LAB[facility]ATORY [facility] Flow Interpretation Bone marrow aspirate: - No phenotypic evidence of neoplasia. COMMENT: No phenotypic evidence of neoplasia. No increase in myeloid progenitors or blasts. No aberrancies detected in myeloid cells, monocytes, or lymphoid cells. Morphologic assessment of hematopoietic production/matura tion and the final diagnosis deferred to the biopsy report ([id number]). The absence of an aberrant population by flow cytometry does not exclude the presence of a hematopoietic disorder since abnormal cells may be phenotypically undetectable. Please correlate with morphologic, molecular and cytogenetic studies. BLASTS: No significant increase in CD34+ or CD117+ blasts. LYMPHOCYTES: Lymphocytes (identified by CD45 vs. SSC) comprise 3% of total events analyzed. B-cells comprise 17% of total lymphocytes and appear polytypic; no abnormal B-cell antigen expression is seen. CD3+ T-cells comprise 61% of total lymphocytes and show a CD4:CD8 ratio of [0.9:1]. No aberrant T-cell antigen expression is identified with the antibodies examined. NK cells (CD3- CD56+) comprise 14% of total lymphocytes. PLASMA CELLS: No significant increase in (bright)CD38+ plasma cells. MYELOID/MONOCYTIC CELLS: Maturing myeloid cells (identified by CD45 vs. SSC) comprise 87% of total events analyzed. Monocytes (identified by CD45 vs. SSC) comprise 3% of total events analyzed. No immunophenotypic aberrancies identified in granulocytes and monocytes with analyzed markers. 06/08/2024 2:03 PM EST [facility] Markers Performed A1: KAPPA (FITC), LAMBDA (PE), CD5 ([id number]), CD19 (PE-CY7), CD20 (APC), CD23 (APC R700), CD45 (APCH7), FMC7 (BV450), CD43 RUO (BV510), CD10 (BV605). A2: CD8 (FITC), CD16 (PE), CD3 (MHEWYYR61), CD5 (PE-CY7), CD14 (APC), CD56 (APC R700), CD45 (APCH7), CD2 (BV450), CD4 (BV510), CD7 (BV605). A3: CD7 (FITC), CD64 (PE), CD38 ([id number]), CD33 (PE-CY7), CD13 (APC), CD34 (APC R700), CD45 (APCH7), CD14 (BV450), XY56-U205 (BV510), CD117 (BV605). A4: CD16 (FITC), CD11B (PE), CD22 ([id number]), CD19 (PE-CY7), HLADR (APC), CD45 (APCH7), CD15 (BV450), CD10 (BV605), CD34 (APC R700). 06/08/2024 2:03 PM EST [facility] Performing Labs 2:03 PM EST [facility]ATORY [facility] Comment:Performed at [facility] ([facility] [address] [place] [address]. Flow Disclaimer Photographic images and diagrams represent armenta findings in this case; they are not intended to replace a complete review of the final diagnostic report. The following statement applies to Flow Cytometry, Histology, In situ Hybridization Assays and Molecular Genetics. This test was developed and performed at [facility] and its performance characteristics determined by [facility] [employer]. It has not been cleared or approved by the U.S. Food and Drug Administration. The FDA has determined that such clearance or approval is not necessary. This test is used for clinical purposes. It should not be regarded as investigational or for research. Special stains, including histochemical stains, and studies using immunologic and GENE methodology (where applicable) are performed with appropriate positive and negative control reactions. 06/08/2024 2:03 PM EST [facility] Bone Marrow Specimen from bone marrow obtained by aspiration / Unknown Non-blood Collection / Unknown 06/04/2024 2:26 PM EST 06/05/2024 8:16 AM EST Aleksandra Knutson MD LAB PATHOLOGY ORDERABLES Mary rere Result [facility] [address] [place] [address] * MYGENVAR HEMATOLOGY GENE PANEL, NEXT GENERATION SEQUENCING (06/04/2024 2:26 PM EST) Tested Case/Block [id number] 06/12/2024 5:41 PM EST [facility]ORY [facility] Genomic Findings Tier I: Strong Significance Variants No variants detected. Tier II: Potential Significance Variants No variants detected. 06/12/2024 5:41 PM EST LAB[facility]ORY [facility] Interpretation This sample was negative for Tier I and Tier II mutations in the targeted gene regions listed below that are associated with the major types of hematologic conditions. These results do not exclude the possibility of a hematologic process, and they should be interpreted in the context of the patient's clinical presentation, radiographic findings, laboratory results, and morphologic impression. 06/12/2024 5:41 PM EST [facility] Variants of Unknown Significance NOTE: Tier III variants are typically associated with limited and/or conflicting evidence regarding their pathogenicity. Their exact clinical significance has not yet been firmly established in the current context. For variants with allele frequencies of approximately 50%, the possibility of germline derivation or polymorphism cannot be excluded. Determination of germline vs somatic origin would require specific testing of the germline, if clinically indicated. To consult with a cancer genetic counselor regarding the utility of a referral, please submit an Ask-A-Doc request to Genetics (clinical). Single Nucleotide Variants and Insertions/Deletio ns Gene Variant Tier Amino Acid Change Nucleotide Change Consequence Allele Frequency Sequencing Depth CREBBP [id number] Tier 3: Unknown clinical significance [id number]: c.[id number]>G Missense Variant 47.7% 1173 CTCF P643S Tier 3: Unknown clinical significance [id number]: c.[id number]>T Missense Variant 47.5% 1264 06/12/2024 5:41 PM EST LAB[facility]ORY [facility] Test Description The [employer] Hematology Gene Panel targets DNA variants in hematologic neoplasms by high-throughput sequencing. It helps determine diagnostic classification and provide prognostic or therapeutic information for clinical management. 06/12/2024 5:41 PM EST LAB[facility]ATORY [facility] Methodology This test is performed using targeted next-generation sequencing to detect the presence or absence of mutations in ABL1, ANKRD26, ASXL1, ATRX, BCOR, BCORL1, BRAF, BRCC3, BTK, CALR, CBL, CBLB, CBLC, CCND2, CDC25C, CDKN2A, CEBPA, CREBBP, CSF1R, CSF3R, CTCF, CUX1, CXCR4, DCK, DDX41, DHX15, DNMT3A, ENTK1, ETV6, EZH2, FBXW7, FLT3, GATA1, GATA2, GNAS, GNB1, HRAS, IDH1, IDH2, IKZF1, JAK2, JAK3, KDM6A, KIT, KMT2A, KRAS, LUC7L2, MAP2K1, MPL, MYC, MYD88, NF1, NOTCH1, NPM1, NRAS, PDGFRA, PHF6, PIGA, PPM1D, TYXQ89B, PTEN, PTPN11, RAD21, RBBP6, RHOA, RPS14, RUNX1, SAMD9, SAMD9L, SETBP1, SF1, SF3A1, SF3B1, SH2B3, LMG77E4, SMC1A, SMC3, SRSF2, STAG2, STAT3, STAT5B, TET2, TP53, U2AF1, U2AF2, UBA1, WT1, XPO1, and ZRSR2. This analysis applies to only single base-pair, small insertion/deletion , and FLT3 ITD alterations in the coding regions and adjacent intron/exon boundaries. Alterations deep in introns or copy number variants will not be reported. In general, the NGS method has a sensitivity of > 99% in detection of variants at >=5% Minor Allele Frequency in the wild-type background. False negative results are possible due to mutant cell populations below the analytical sensitivity of the method, which is approximately 10% of cells for most mutations. 06/12/2024 5:41 PM EST LAB[facility]ORY [facility] Disclaimer The performance characteristics of this assay have been validated to detect somatic variants by the Molecular Diagnostics Laboratory at [facility]. It has not been cleared or approved by the FDA. The laboratory is regulated under CLIA as qualified to perform high complexity testing. This test is used for clinical purposes. Determination of germline versus somatic origin of a variant would require specific testing of the germline, if clinically indicated. To consult with a cancer genetic counselor regarding the utility of a referral, please submit an Ask-A-Doc request to Genetics (clinical). Benign or likely benign variants, which are alterations with strong evidence against pathogenicity, are not routinely included in result reports. Result interpretation is limited by public information presently available. 06/12/2024 5:41 PM EST [facility]ORY [facility] Resulting Pathologist Dr. Mariano Zeng 06/12/2024 5:41 PM EST [facility] Bone Marrow Specimen from bone marrow obtained by aspiration / Unknown Non-blood Collection / Unknown 06/04/2024 2:26 PM EST 06/04/2024 2:57 PM EST Narrative This result has genomic variants that were not included in this document. us Aleksandra Knutson MD LAB MOLECULAR ORDERABLES Mary jernigan Result LABORATORY [facility] [address] [place] [address] * BONE MARROW WITH REFLEX TESTING (06/04/2024 2:26 PM EST) Diagnosis Bone marrow, right posterior iliac crest, aspirate, biopsy, touch imprints: - Hypercellular bone marrow with maturing trilineage hematopoiesis. No significant dysplasia or increase in blasts. No prominent hemophagocytosis. Peripheral blood: - Mild leukopenia with granulocytic left shift; normocytic anemia with mild anisopoikilocytosis Comment: Flow cytometric immunophenotypic analysis ([id number]) shows no phenotypic evidence of neoplasia. Currently, the findings are insufficient for diagnosis of a myeloid neoplasm or other specific process to explain cytopenias. The differential diagnosis for leukopenia and normocytic anemia includes drug/toxin effect, nutritional deficiency, infection, autoimmune disease, or early myelodysplastic syndrome. Ancillary studies including chromosome analysis and hematology gene panel are pending. These results may require correlation with morphology and clinical history for final diagnosis. Please see Comprehensive Bone Marrow Consultation when completed. 2:01 PM [facility] LAB[facility]ATORY [facility] Clinical History Unexplained cytopenia 2:01 PM EST LAB[facility]ATORY [facility] Bone Marrow Aspirate Microscopic Findings Aspirate Adequacy: adequate cellularity. Core Touch Imprint Adequacy: adequate cellularity. Blasts: within normal limits. Myelopoiesis: mild left shift with full spectrum of maturation; no dysplasia identified . Erythropoiesis: full spectrum of maturation; mild megaloblastoid changes and rare binucleated precursor . Megakaryocytes: variable morphology with small and large forms . Lymphocytes: within normal limits. Plasma Cells: within normal limits. 2:01 PM EST LAB[facility]ATORY [facility] Iron Status Stainable Iron: increased 6+. Number of Sideroblasts: decreased. Ring Sideroblasts: rare ring sideroblasts. 2:01 PM EST LAB[facility]ORY [facility] Bone Marrow Biopsy and Clot Microscopic Findings Core Biopsy Adequacy: limited (prominent aspiration or crush artifact). Clot Section Adequacy: not submitted. Marrow Cellularity: 90-95% hypercellular. Cellular Composition: similar to aspirate smears. Myelopoiesis: increased with granulocytic left shift . Erythropoiesis: relative decreased with slightly disrupted erythroid islands . Megakaryocytes: moderate increase with occasional small clusters; no overt cytology atypia. Trabecular Bone: unremarkable. Marrow Stroma: foci with eosinophilic granular debris and focal hemosiderin deposition. 2:01 PM EST LAB[facility]ORY [facility] Immunostains and Special Stains Immunohistochemical stains with appropriately reactive controls are reviewed. CD34 highlights rare, scattered, blasts. CD117 highlights immature myeloid precursors, approximately 5-10% of marrow cellularity. CD138 highlights few, scattered, plasma cells, <5% of marrow cellularity. CD3 highlights few, scattered, T-cells. CD20 highlights fewer, scattered, B-cells. 2:01 PM [facility] Peripheral Blood Microscopic Findings CBC resulted date/time: 06/04/2024 0613 EST. WBC: 3.75 K/uL, HGB: 9.1 g/dL, MCV: 84.7 fL, RDW: 18.6 %, PLT: 329 K/uL Red Blood Cells: normocytic anemia with mild, non-specific, anisopoikilocytosis; rare nucleated red blood cell seen . White Blood Cells: mild leukopenia with slight granulocytic left shift and occasional reactive appearing lymphocytes . Platelets: normal in number; normal platelet morphology. 2:01 PM [facility] Bone Marrow Aspirate Differential Value % Reference Range % Blasts 1 0-3 Early myeloid precursors 13 11-15 Neutrophils and other late precursors 54 22-40 Monocytes 6 0-2 Erythroid precursors 20 15-25 Lymphocytes 5 10-15 Plasma Cells 1 0-1 2:01 PM [facility] Peripheral Blood Differential Value % Reference Range % Neutrophils 89 40-75 Lymphocytes 8 18-42 Monocytes 2 1-11 Metamyelocytes 1 <=0 nRBCs/100 WBC 1 <=0 2:01 PM [facility] Gross Description A. Bone Marrow Biopsy, Right Iliac Crest. Received in B+ fixative with a container labeled with "Bhavin Wilson", "[id number]", "1995" and "bone marrow biopsy, right iliac crest unexplained cytopenia" is a red-brown cylindrical portion of bone measuring 1.3 x 0.3 cm. The specimen is wrapped and submitted in A1 following decalcification. Grossed By: ARPITA 2:01 PM [facility] Photographic images and diagrams represent armenta findings in this case; they are not intended to replace a complete review of the final diagnostic report. The following statement applies to Flow Cytometry, Histology, In situ Hybridization Assays and Molecular Genetics. This test was developed and performed at [facility] and its performance characteristics determined by [employer]. It has not been cleared or approved by the U.S. Food and Drug Administration. The FDA has determined that such clearance or approval is not necessary. This test is used for clinical purposes. It should not be regarded as investigational or for research. Special stains, including histochemical stains, and studies using immunologic and GENE methodology (where applicable) are performed with appropriate positive and negative control reactions. 2:01 PM EST [facility]ATORY [facility] Bone Marrow Venous blood specimen / Unknown Non-blood Collection / Unknown 06/04/2024 2:26 PM EST 06/04/2024 2:57 PM EST Bone marrow specimen (specimen) (Bone Marrow Aspirate, Right Iliac Crest) Non-blood Collection / Unknown 06/04/2024 2:26 PM EST 06/04/2024 2:58 PM EST Bone marrow specimen (specimen) Venous blood specimen / Unknown 06/04/2024 2:26 PM EST 06/04/2024 2:58 PM EST Aleksandra Knutson MD LAB PATHOLOGY ORDERABLES Mary l Result Performing Organization Address City/[facility]/ZIP Co de Phone Number LABORATORY [facility] [address] [place] [address] * BONE MARROW ASPIRATE GREEN (FLOW) (06/04/2024 2:26 PM EST) Pathologist [facility] Bone Marrow for Flow Cytometry Yes 06/05/2024 8:16 AM EST LAB[facility]ATORY [facility] Bone Marrow Specimen from bone marrow obtained by aspiration / Unknown Non-blood Collection / Unknown 06/04/2024 2:26 PM EST 06/04/2024 2:57 PM EST Aleksandra Knutson MD LAB MOLECULAR ORDERABLES Mary l Result Performing Organization Address City/[facility]/ZIP Co de Phone Number LAB[facility]ATORY [facility] [address] [place] [address] * LACTATE (06/04/2024 12:05 PM EST) Lactate 0.9 0.4 - 2.0 mmol/L 06/04/2024 1:40 PM EST LAB[facility]ORY [facility] Blood Venous blood specimen / Unknown Venipuncture / Unknown 06/04/2024 12:05 PM EST 06/04/2024 1:02 PM EST us Flex Nunez MD LAB BLOOD ORDERABLES Final Resul t Performing Organization Address [facility] Co de Phone Number [facility]ATORY [facility] [address] [place] [address] * (ABNORMAL) LIPASE (06/04/2024 11:33 AM EST) Lipase 2,652(H) 13 - 60 U/L 06/04/2024 4:08 PM EST [facility] Blood Venous blood specimen / Unknown Venipuncture / Unknown 06/04/2024 11:33 AM EST 06/04/2024 12:07 PM EST Sue Blanton DO LAB BLOOD ORDERABLES Fin al Result Performing Organization Address [facility] Co de Phone Number [facility]ORY [facility] [address] [place] [address] * (ABNORMAL) CO2 (06/04/2024 11:33 AM EST) CO2 18(L) 22 - 32 mmol/L 06/04/2024 3:30 PM EST [facility] Blood Venous blood specimen / Unknown Venipuncture / Unknown 06/04/2024 11:33 AM EST 06/04/2024 12:07 PM EST Flex Nunez MD LAB BLOOD ORDERABLES Final Resul t Performing Organization Address [facility] de Phone Number [facility]ATORY [facility] [address] [place] [address] * COMPLEMENT C4 (06/04/2024 11:33 AM EST) Complement C4 19 10 - 40 mg/dL 06/04/2024 3:14 PM EST [facility] Blood Venous blood specimen / Unknown Venipuncture / Unknown 06/04/2024 11:33 AM EST 06/04/2024 12:07 PM EST us Flex Nunez MD LAB BLOOD ORDERABLES Final Resul t Performing Organization Address City/[facility] Co de Phone Number [facility]ATORY [facility] [address] [place] [address] * (ABNORMAL) COMPLEMENT C3 (06/04/2024 11:33 AM EST) Complement C3 85(L) 90 - 180 mg/dL 06/04/2024 3:14 PM EST [facility] Blood Venous blood specimen / Unknown Venipuncture / Unknown 06/04/2024 11:33 AM EST 06/04/2024 12:07 PM EST us Flex Nunez MD LAB BLOOD ORDERABLES Final Resul t Performing Organization Address [facility] Phone Number [facility]ATORY [facility] [address] [place] [address] * (ABNORMAL) TROPONIN T, HIGH SENSITIVITY (06/04/2024 11:33 AM EST) Troponin T, High Sensitivity 137(HH) <=14 ng/L 06/04/2024 12:39 PM EST [facility] Blood Venous blood specimen / Unknown Venipuncture / Unknown 06/04/2024 11:33 AM EST 06/04/2024 12:07 PM EST us Flex Nunez MD LAB BLOOD ORDERABLES Final Resul t Performing Organization Address City/[facility] Co de Phone Number [facility]ORY [facility] [address] [place] [address] * RESPIRATORY PATHOGEN PANEL, PCR (06/04/2024 11:04 AM EST) Adenovirus by PCR Negative Negative 024 12:22 PM EST [facility] Coronavirus 229E by PCR Negative Negative 06/04/2024 12:22 PM EST [facility] Coronavirus HKU1 by PCR Negative Negative 06/04/2024 12:22 PM EST [facility] Coronavirus NL63 by PCR Negative Negative 06/04/2024 12:22 PM EST [facility] Coronavirus OC43 by PCR Negative Negative 06/04/2024 12:22 PM EST [facility] Coronavirus SARS-CoV-2 by PCR Negative Negative 06/04/2024 12:22 PM EST [facility] Human Metapneumovirus by PCR Negative Negative 06/04/2024 12:22 PM EST [facility] Rhinovirus/Enterovi cori by PCR Negative Negative 06/04/2024 12:22 PM EST [facility] Influenza A Virus by PCR Negative Negative 06/04/2024 12:22 PM EST [facility] Influenza B Virus by PCR Negative Negative 06/04/2024 12:22 PM EST [facility] Parainfluenza Virus 1 by PCR Negative Negative 06/04/2024 12:22 PM EST [facility] Parainfluenza Virus 2 by PCR Negative Negative 06/04/2024 12:22 PM EST [facility] Parainfluenza Virus 3 by PCR Negative Negative 06/04/2024 12:22 PM EST [facility] Parainfluenza Virus 4 by PCR Negative Negative 06/04/2024 12:22 PM EST [facility] Respiratory Syncytial Virus by PCR Negative Negative 06/04/2024 12:22 PM EST [facility] Bordetella pertussis by PCR Negative Negative 06/04/2024 12:22 PM EST [facility] Chlamydia pneumoniae by PCR Negative Negative 06/04/2024 12:22 PM EST [facility] Mycoplasma pneumoniae by PCR Negative Negative 06/04/2024 12:22 PM EST [facility] Bordetella parapertussis by PCR Negative Negative 06/04/2024 12:22 PM EST [facility] Comment: The primers that detect Rhinovirus may cross react with some Enterorviruses. The validation of bronchial specimens, tracheal aspirates, and throats for this assay was developed and performance characteristics determined by [employer]. The validation of alternate specimen types has not been cleared or approved by the U.S. Food and Drug Administration (FDA). It has been determined that such clearance or approval is not necessary. Upper Respiratory Mid-turbinate nasal swab / Unknown Non-blood Collection / Unknown 06/04/2024 11:04 AM EST 06/04/2024 11:15 AM EST Sue Blanton DO LAB MICRO - GENERAL ORDE RABLES Final Result Performing Organization Address City/[facility]/ZIP Co de Phone Number [facility]ATORY [facility] [address] [place] [address] * ECHO, COMPLETE (2D), TRANS-THORACIC (06/04/2024 10:42 AM EST) LEFT VENTRICULAR EJECTION FRACTION 55 % [facility] CARDIOLOGY 06/04/2024 10:2 3 AM EST Flex Nunez MD ECHOCARDIOLOGY Final Result Performing Organization Address City/[facility]/ZIP Co de Phone Number [facility] CARDIOLOGY * LACTATE (06/04/2024 10:32 AM EST) Pathologist [facility] Lactate 1.1 0.4 - 2.0 mmol/L 06/04/2024 11:14 AM EST [facility] [place] Venous blood specimen / Unknown Venipuncture / Unknown 06/04/2024 10:32 AM EST 06/04/2024 10:45 AM EST Flex Nunez MD LAB BLOOD ORDERABLES Final Resul t Performing Organization Address [facility] Co de Phone Number LABORATORY [address] [address] * CT PULMONARY EMBOLUS W CONTRAST (06/04/2024 10:10 AM EST) Anatomical Region Laterality Modality Chest, Cardio, Body Computed Dwayne ography 06/04/2024 10:2 8 AM EST Impressions 06/04/2024 10:26 AM EST IMPRESSION 1. No pulmonary embolism. 2. Acute interstitial edematous pancreatitis in the imaged upper abdomen, new in the short interval from 06/02/2024. 3. Mild multifocal infectious/inflammatory nodular opacities in the lungs. 4. Trace pleural effusions. 5. Axillary/subpectoral lymphadenopathy, often related to connective tissue disease, unchanged on the left and improved on the right since 01/28/2024. Narrative 06/04/2024 10:[address] PULMONARY EMBOLUS W [id number]/14/2024 10:10 am HISTORY tachycardia with evidence of cardiac ischemia TECHNIQUE CT chest with intravenous contrast: PE protocol. Axial 1 mm images were obtained. MPR and MIP images were reformatted from axial data. COMPARISON CT abdomen/pelvis dated 06/02/2024. FINDINGS LUNGS/AIRWAYS: In the interval since 01/28/[address] and within the field of view of the [place] June 2024 CT abdomen, there are a few new nodular opacities in the periphery of the left lung with an ill-defined contour and acute onset implying acinar nodularity of infection/inflammation. PLEURA: Trace pleural fluid is also new bilaterally, potentially reactive to above pulmonary findings, the trauma process, and/or volume overload. No pneumothorax. CARDIOVASCULAR: The heart appears normal in size. No appreciable atherosclerosis. No pericardial effusion. The overall quality of the study is good with the pulmonary arteries adequately evaluated through the proximal subsegmental level. There is no evidence of pulmonary embolism. LYMPH NODES: Multiple enlarged axillary and subpectoral lymph nodes, unchanged on the left and relatively decreased on the right since 01/28/2024. THYROID: Visualized gland unremarkable. ESOPHAGUS: Normally decompressed. UPPER ABDOMEN: There is new, extensive peripancreatic edema within the imaged upper abdomen. Borderline spleen size relative to patient body habitus, 12.3 cm in greatest axial span. SOFT TISSUES: Unremarkable. BONES: No acute or destructive osseous abnormality. Procedure Note Timur Padilla MD - 06/04/[address] PULMONARY EMBOLUS W [id number]/14/2024 10:10 am HISTORY tachycardia with evidence of cardiac ischemia TECHNIQUE CT chest with intravenous contrast: PE protocol. Axial 1 mm images were obtained. MPR and MIP images were reformatted fromaxial data. COMPARISON CT abdomen/pelvis dated 06/02/2024. FINDINGS LUNGS/AIRWAYS: In the interval since 01/28/[address] and within thefield of view of the [place] June 2024 CT abdomen, there are a few newnodular opacities in the periphery of the left lung with an ill-definedcontour and acute onset implying acinar nodularity ofinfection/inflammation. PLEURA: Trace pleural fluid is also new bilaterally, potentially reactiveto above pulmonary findings, the trauma process, and/or volume overload.No pneumothorax. CARDIOVASCULAR: The heart appears normal in size. No appreciableatherosclerosis. No pericardial effusion. The overall quality of the study is good with the pulmonary arteriesadequately evaluated through the proximal subsegmental level. There is noevidence of pulmonary embolism. LYMPH NODES: Multiple enlarged axillary and subpectoral lymph nodes,unchanged on the left and relatively decreased on the right since01/28/2024. THYROID: Visualized gland unremarkable. ESOPHAGUS: Normally decompressed. UPPER ABDOMEN: There is new, extensive peripancreatic edema within theimaged upper abdomen. Borderline spleen size relative to patient bodyhabitus, 12.3 cm in greatest axial span. SOFT TISSUES: Unremarkable. BONES: No acute or destructive osseous abnormality. IMPRESSION IMPRESSION 1. No pulmonary embolism. 2. Acute interstitial edematous pancreatitis in the imaged upper abdomen,new in the short interval from 06/02/2024. 3. Mild multifocal infectious/inflammatory nodular opacities in thelungs. 4. Trace pleural effusions. 5. Axillary/subpectoral lymphadenopathy, often related to connectivetissue disease, unchanged on the left and improved on the right since01/28/2024. Flex Nunez MD RAD CT Final Result * EKG (06/04/2024 9:41 AM EST) 06/04/2024 9:41 AM EST Narrative Procedure Note Yannick Hall MD - 06/04/2024 9:41 AM EST REASON FOR STUDY: Notify provider if obtaining EKG;Chest pain CONCLUSIONS: Sinus tachycardia When compared with ECG of 04-Jun-2024 05:28, No significant change was found Ventricular Rate: 104 Atrial Rate: 104 OR Interval: 122 QRS Duration: 74 QT/QTc: 346/454 ms P-R-T Altha: 64 : 78 : 63 degrees us Noah Marie DO EKG Final Result [facility] * (ABNORMAL) TROPONIN T, HIGH SENSITIVITY (06/04/2024 8:55 AM EST) Troponin T, High Sensitivity 147(HH) <=14 ng/L 06/04/2024 9:51 AM EST [facility] [place] Venous blood specimen / Unknown Venipuncture / Unknown 06/04/2024 8:55 AM EST 06/04/2024 9:23 AM EST Flex Nunez MD LAB BLOOD ORDERABLES Final Resul t Performing Organization Address City/[facility]/ZIP Co de Phone Number [facility] [address] [place] [address] * REFERRED TEST, OTHER,(LAB USE ONLY) (06/04/2024 8:38 AM EST) External Lab Report RESULT SCAN 06/07/2024 1:23 PM EST GENERIC LAB Blood Blood specimen / Unknown Venipuncture / Unknown 06/04/2024 8:38 AM EST 06/04/2024 8:47 AM EST Linwood Carrillo DO LAB BLOOD ORDERABLES Final Resu lt Performing Organization Address City/[facility] Co de Phone Number GENERIC LAB * REFERRED TEST, OTHER,(LAB USE ONLY) (06/04/2024 8:37 AM EST) External Lab Report RESULT SCAN 06/10/2024 1:40 PM EST GENERIC LAB Blood Blood specimen / Unknown Venipuncture / Unknown 06/04/2024 8:37 AM EST 06/04/2024 8:45 AM EST Linwood Carrillo DO LAB BLOOD ORDERABLES Final Resu lt Performing Organization Address City/[facility]/ZIP Co de Phone Number GENERIC LAB * REFERRED TEST, OTHER,(LAB USE ONLY) (06/04/2024 8:37 AM EST) External Lab Report RESULT SCAN 06/10/2024 1:40 PM EST GENERIC LAB Blood Blood specimen / Unknown Venipuncture / Unknown 06/04/2024 8:37 AM EST 06/04/2024 8:47 AM EST Linwood Carrillo DO LAB BLOOD ORDERABLES Final Resu lt GENERIC LAB * EXTRA LAVENDER TOP (06/04/2024 8:31 AM EST) Blood Venous blood specimen / Unknown 06/04/2024 8:31 AM EST 06/04/2024 8:50 AM EST Linwood Carrillo DO LAB BLOOD ORDERABLES Final Resu lt Performing Organization Address [facility] Co de Phone Number LABORATORY [address] [address] * (ABNORMAL) BNP, NT-PRO (06/04/2024 5:43 AM EST) BNP, NT-Pro 1,482(H) <300 pg/mL 06/04/2024 8:45 AM EST [facility] [place] Venous blood specimen / Unknown Venipuncture / Unknown 06/04/2024 5:43 AM EST 06/04/2024 5:56 AM EST Narrative [facility] - 06/04/2024 8:45 AM EST Exclude Heart Failure: <300 pg/mL Diagnose Heart Failure: Age <50 yr: >450 pg/mL 50-75 yr: >900 pg/mL >75 yr: >1800 pg/mL GFR is 30-59 mL/min: >1200 pg/mL or Age-adjusted values GFR <30 mL/min: do not use, not reliable Prognostic threshold: 1000 pg/mL Sue Blanton DO LAB BLOOD ORDERABLES Fin al Result Performing Organization Address City/[facility]/ZIP Co de Phone Number LABORATORY [place] [address] [place] [address] * (ABNORMAL) TROPONIN T, HIGH SENSITIVITY (06/04/2024 5:43 AM EST) Troponin T, High Sensitivity 125(HH) <=14 ng/L 06/04/2024 7:10 AM EST [facility] Blood Venous blood specimen / Unknown Venipuncture / Unknown 06/04/2024 5:43 AM EST 06/04/2024 5:56 AM EST us Gaston Youssef MD LAB BLOOD ORDERABLES Final Resul t LAB[facility]ATORY [facility] [address] [place] [address] * (ABNORMAL) DIFFERENTIAL, AUTOMATED (06/04/2024 5:43 AM EST) WBC 3.75(L) 4.00 - 10.80 K/uL 06/04/2024 6:49 AM EST LAB[facility]ATORY [facility] Neutrophils % 78.9(H) 40.0 - 75.0 % 06/04/2024 6:49 AM EST [facility] Lymphocytes % 13.1(L) 18.0 - 42.0 % 06/04/2024 6:49 AM EST [facility] Monocytes % 2.4 1.0 - 11.0 % 06/04/2024 6:49 AM EST [facility] Eosinophils % 0.0 0.0 - 6.0 % 06/04/2024 6:49 AM EST [facility] Basophils % 0.3 0.0 - 2.0 % 06/04/2024 6:49 AM EST [facility] Immature Granulocytes % 5.3(H) 0.0 - 2.0 % 06/04/2024 6:49 AM EST LAB[facility] Absolute Neutrophils 2.96 1.80 - 7.70 K/uL 06/04/2024 6:49 AM EST LAB[facility] Absolute Lymphocytes 0.49(L) 1.00 - 4.80 K/ul 06/04/2024 6:49 AM EST LAB[facility] Absolute Monocytes 0.09 0.00 - 1.10 K/uL 06/04/2024 6:49 AM EST LAB[facility] Absolute Eosinophils 0.00 0.00 - 0.70 K/uL 06/04/2024 6:49 AM EST [facility] Absolute Basophils 0.01 0.00 - 0.20 K/uL 06/04/2024 6:49 AM EST LAB[facility] Absolute Immature Granulocytes 0.20 0.00 - 0.20 K/uL 06/04/2024 6:49 AM EST LAB[facility] Blood Venous blood specimen / Unknown Venipuncture / Unknown 06/04/2024 5:43 AM EST 06/04/2024 5:56 AM EST us Flex Nunez MD LAB BLOOD ORDERABLES Final Resul t Performing Organization Address City/State/[facility] Co de Phone Number LABORATORY [facility] [address] [place] [address] * (ABNORMAL) CBC (06/04/2024 5:43 AM EST) WBC 3.75(L) 4.00 - 10.80 K/uL 06/04/2024 6:21 AM EST LAB[facility]ORY [facility] RBC 3.46 3.85 - 5.15 M/uL 06/04/2024 6:21 AM EST [facility] HGB 9.1(L) 12.0 - 15.3 g/dL 06/04/2024 6:21 AM EST [facility] HCT 29.3(L) 36.0 - 45.2 % 06/04/2024 6:21 AM EST [facility] MCV 84.7 81.5 - 97.5 fL 06/04/2024 6:21 AM EST [facility] MCH 26.3 27.0 - 34.0 pg 06/04/2024 6:21 AM EST [facility] MCHC 31.1 32.0 - 36.0 g/dL 06/04/2024 6:21 AM EST [facility] RDW 18.6 11.5 - 15.5 % 06/04/2024 6:21 AM EST [facility] PLT 329 140 - 400 K/uL 06/04/2024 6:21 AM EST [facility] MPV 8.5 6.6 - 11.1 fL 06/04/2024 6:21 AM EST [facility] nRBCs 0 <=0 /100 WBCs 06/04/2024 6:21 AM EST [facility] Blood Venous blood specimen / Unknown Venipuncture / Unknown 06/04/2024 5:43 AM EST 06/04/2024 5:56 AM EST us Flex Nunez MD LAB BLOOD ORDERABLES Final Resul t LAB[facility]ORY [facility] [address] [place] [address] * (ABNORMAL) COMPREHENSIVE METABOLIC PANEL (06/04/2024 5:43 AM EST) BUN 11 6 - 20 mg/dL 06/04/2024 6:38 AM EST LAB[facility]ORY [facility] CREATININE 0.4(L) 0.5 - 1.0 mg/dL 06/04/2024 6:38 AM EST LAB[facility] EGFR >90 >=60 mL/min 06/04/2024 6:38 AM EST LAB[facility]ORY [facility] Comment:eGFR is calculated b ased on the CKD-EPI 2020 equation. SODIUM 133(L) 135 - 146 mmol/L 06/04/2024 6:38 AM EST [facility] POTASSIUM 3.7 3.5 - 5.1 mmol/L 06/04/2024 6:38 AM EST [facility] CHLORIDE 105 98 - 107 mmol/L 06/04/2024 6:38 AM EST [facility] CO2 19(L) 22 - 32 mmol/L 06/04/2024 6:38 AM EST [facility] ANION GAP 9 7 - 15 mmol/L 06/04/2024 6:38 AM EST [facility] GLUCOSE 90 70 - 120 mg/dL 06/04/2024 6:38 AM EST [facility] Albumin 2.3(L) 3.8 - 5.0 g/dL 06/04/2024 6:38 AM EST [facility] AST 134(H) 10 - 35 U/L 06/04/2024 6:38 AM EST [facility] Alkaline Phosphatase 95 35 - 130 U/L 06/04/2024 6:38 AM EST [facility] Bilirubin, Total 0.2 <=1.2 mg/dL 06/04/2024 6:38 AM EST [facility] CALCIUM 7.6(L) 8.4 - 10.2 mg/dL 06/04/2024 6:38 AM EST [facility] Protein 5.5(L) 6.0 - 8.3 g/dL 06/04/2024 6:38 AM EST [facility] ALT 41(H) 10 - 35 U/L 06/04/2024 6:38 AM EST [facility] Blood Venous blood specimen / Unknown Venipuncture / Unknown 06/04/2024 5:43 AM EST 06/04/2024 5:56 AM EST Noah Marie DO LAB BLOOD ORDERABLES Final Res ult Performing Organization Address [facility] de Phone Number LABORATORY [address] [address] * APTT (06/04/2024 5:43 AM EST) Pathologist [facility] aPTT 38 21 - 38 seconds 06/04/2024 6:27 AM EST [facility] Blood Venous blood specimen / Unknown Venipuncture / Unknown 06/04/2024 5:43 AM EST 06/04/2024 5:56 AM EST Narrative [facility] - 06/04/2024 6:27 AM EST Anticoagulation may affect testing. Refer to [employer] Test Catalog for a list of effects. Noah Marie DO [facility] BLOOD ORDERABLES Final Res ult Performing Organization Address [facility] de Phone Number LABORATORY [address] [address] * (ABNORMAL) D-DIMER (06/04/2024 5:43 AM EST) D-Dimer 3.77(H) <0.50 ug/mL FEU 06/04/2024 6:29 AM EST [facility] Blood Venous blood specimen / Unknown Venipuncture / Unknown 06/04/2024 5:43 AM EST 06/04/2024 5:56 AM EST Narrative [facility] - 06/04/2024 6:29 AM EST Rheumatoid factor at a level above 50 IU/mL may lead to an overestimation of the D-dimer level. A normal D-dimer result (<0.50 ug/mL FEU) has a negative predictive value of approximately 95% for the exclusion of acute pulmonary embolism (PE) or deep vein thrombosis when there is low or moderate pretest PE probability. Increased D-dimer values are abnormal but do not indicate a specific disease state and the D-dimer increase does not definitively correlate with clinical severity of disease. Noah Marie DO LAB BLOOD ORDERABLES Final Res ult Performing Organization Address [facility] de Phone Number LAB[facility]ATORY [facility] [address] [place] [address] * PT INR (06/04/2024 5:43 AM EST) Prothrombin Time 13.1 11.6 - 15.2 seconds 06/04/2024 6:27 AM EST [facility] INR 1.0 0.8 - 1.2 06/04/2024 6:27 AM EST [facility] Blood Venous blood specimen / Unknown Venipuncture / Unknown 06/04/2024 5:43 AM EST 06/04/2024 5:56 AM EST Narrative [facility] - 06/04/2024 6:27 AM EST Warfarin Therapy INR: 2.0-3.0 conventional anticoagulation INR: 2.5-3.5 high intensity anticoagulation Noah Marie DO LAB BLOOD ORDERABLES Final Res ult Performing Organization Address [facility] de Phone Number [facility]ATORY [facility] [address] [place] [address] * (ABNORMAL) TRIGLYCERIDES (06/04/2024 5:43 AM EST) Pathologist [facility] Triglycerides 411(H) <=174 mg/dL 06/04/2024 6:38 AM EST LAB[facility]ORY [facility] Comment: Triglyceride Reference Ranges (mg/dL): <150 Acceptable 150-174 Borderline high 175-499 High >=500 Very high Blood Venous blood specimen / Unknown Venipuncture / Unknown 06/04/2024 5:43 AM EST 06/04/2024 5:56 AM EST Noah Marie DO LAB BLOOD ORDERABLES Final Res ult Performing Organization Address City/[facility] Co de Phone Number LAB[facility]ATORY [facility] [address] [place] [address] * (ABNORMAL) LD (06/04/2024 5:43 AM EST) Pathologist [facility] LD 541(H) <=250 U/L 06/04/2024 6:38 AM EST [facility] Blood Venous blood specimen / Unknown Venipuncture / Unknown 06/04/2024 5:43 AM EST 06/04/2024 5:56 AM EST Noah Marie DO LAB BLOOD ORDERABLES Final Res ult Performing Organization Address [facility]/ZIP Co de Phone Number [facility]ATORY [facility] [address] [place] [address] * (ABNORMAL) FERRITIN (06/04/2024 5:43 AM EST) [facility] Ferritin 9,351(H) 13 - 150 ng/mL 06/04/2024 8:45 AM EST LAB[facility] Blood Venous blood specimen / Unknown Venipuncture / Unknown 06/04/2024 5:43 AM EST 06/04/2024 5:56 AM EST us Noah Marie DO LAB BLOOD ORDERABLES Final Res ult Performing Organization Address City/[facility]/ZIP Co de Phone Number [facility]ORY [facility] [address] [place] [address] * (ABNORMAL) CRP (INFLAMMATORY MARKER) (06/04/2024 5:43 AM EST) [facility] CRP (Inflammatory Marker) 56(H) <=5 mg/L 06/04/2024 6:38 AM EST [facility] Blood Venous blood specimen / Unknown Venipuncture / Unknown 06/04/2024 5:43 AM EST 06/04/2024 5:56 AM EST us Noah Marie DO LAB BLOOD ORDERABLES Final Res ult [facility] [address] [place] [address] * (ABNORMAL) ERYTHROCYTE SEDIMENTATION RATE (ESR) (06/04/2024 5:43 AM EST) Pathologist [facility] ESR 41(H) <20 mm/hour 06/04/2024 7:12 AM EST LAB[facility] Blood Venous blood specimen / Unknown Venipuncture / Unknown 06/04/2024 5:43 AM EST 06/04/2024 5:56 AM EST Noah Marie DO LAB BLOOD ORDERABLES Final Res ult Performing Organization Address City/[facility]/ZIP Co de Phone Number [facility]ATORY [facility] [address] [place] [address] * EKG (06/04/2024 5:28 AM EST) 06/04/2024 5:28 AM EST Narrative Procedure Note Yannick Hall MD - 06/04/2024 5:28 AM EST REASON FOR STUDY: CHEST PAIN CONCLUSIONS: Normal sinus rhythm Normal ECG When compared with ECG of 02-Jun-2024 14:13, No significant change was found Ventricular Rate: 78 Atrial Rate: 78 OR Interval: 162 QRS Duration: 78 QT/QTc: 408/465 ms P-R-T Altha: 68 : 79 : 62 degrees Noah Marie DO EKG Final Result Performing Organization Address [facility]/ZIP Co de Phone Number [facility] CARDIOLOGY * GLUCOSE METER, POINT OF CARE (06/03/2024 1:31 PM EST) [facility] GLUCOSE - POCT 97 70 - 120 mg/dL 06/03/2024 1:37 PM EST [facility] Blood Whole blood specimen / Unknown 06/03/2024 1:31 PM EST 06/03/2024 1:37 PM EST Linwood Carrillo DO LAB POINT OF CARE TE ST DOCKED DEVICE UNSOLICITED RESULTS Final Result [facility] [address] [facility] [place] [address] * PARVOVIRUS B19 ANTIBODIES (IGG, IGM) (06/03/2024 11:19 AM EST) Parovirus B19 AB IGG 0.1 <0.9 06/05/2024 6:38 PM EST [facility] [place] Parvovirus B19 AB IGM 0.1 <0.9 06/05/2024 6:38 PM EST [facility] [place] Comment: Reference Range: <0.9 Negative 0.9-1.1 Equivocal >1.1 Positive IgG persists for years and provides life-long immunity. Results from any one IgM assay should not be used as a sole determinant of a current or recent infection. Because IgM tests can yield false positive results and low levels of IgM antibody may persist for months post infection, reliance on a single test result could be misleading. If an acute infection is suspected, consider obtaining a new specimen and submit for both IgG and IgM testing in two or more weeks. To diagnose current infection, consider Parvovirus B19 DNA, PCR. Test Performed at: [facility] [address] [address] Rei Kimball M.D., Ph.D.,Director of Laboratories Blood Venous blood specimen / Unknown Venipuncture / Unknown 06/03/2024 11:19 AM EST 06/03/2024 11:26 AM EST Flex Nunez MD LAB BLOOD ORDERABLES Final Resul t [employer] [facility] [place] [address] [place] [address] * NON-FORMULARY TEST REQUEST (06/03/2024 9:41 AM EST) Request accepted/reject ed Accepted 06/03/2024 12:45 PM EST [facility] Performing Lab Other 06/03/2024 12:45 PM EST [facility] Test Code Soluble IL-2R (Soluble CD25) 06/03/2024 12:45 PM EST [facility] Test Description Soluble IL-2R (Soluble CD25) 06/03/2024 12:45 PM EST [facility] 06/03/2024 9:41 AM EST 06/03/2024 9:41 AM EST Narrative [facility] - 06/03/2024 12:45 PM EST Laboratory testing ordered. PATIENT MAY NOW BE COLLECTED Approve this testing, send to [facility]. This non-formulary test request was reviewed by Danika Witt MD Tiffanie Fisher MD LAB BLOOD ORDERABLES Fin al Result Performing Organization Address [facility] Co de Phone Number LAB[facility]ORY [facility] [address] [place] [address] * NON-FORMULARY TEST REQUEST (06/03/2024 9:41 AM EST) Request accepted/reject ed Accepted 06/03/2024 12:46 PM EST [facility] Performing Lab Other 06/03/2024 12:46 PM EST [facility] Test Code Soluble CD163 06/03/2024 12:46 PM EST [facility] Test Description Soluble CD163 06/03/2024 12:46 PM EST [facility] 06/03/2024 9:41 AM EST 06/03/2024 9:41 AM EST Narrative [facility] - 06/03/2024 12:46 PM EST Laboratory testing ordered. PATIENT MAY NOW BE COLLECTED Approve this testing, send to [facility]. This non-formulary test request was reviewed by Danika Witt MD us Tiffanie Fisher MD LAB BLOOD ORDERABLES Fin al Result Performing Organization Address [facility] de Phone Number LAB[facility] [address] [place] [address] * NON-FORMULARY TEST REQUEST (06/03/2024 9:41 AM EST) Request accepted/reject ed Accepted 06/03/2024 12:46 PM EST [facility] Performing Lab Other 06/03/2024 12:46 PM EST [facility] Test Code Neopterin: Plasma 06/03/2024 12:46 PM EST [facility] Test Description Neopterin: Plasma 06/03/2024 12:46 PM EST [facility] 06/03/2024 9:41 AM EST 06/03/2024 9:41 AM EST Narrative [facility] - 06/03/2024 12:46 PM EST Laboratory testing ordered. PATIENT MAY NOW BE COLLECTED Approve this testing, send to [facility]. This non-formulary test request was reviewed by Danika Witt MD us Tiffanie Fisher MD LAB BLOOD ORDERABLES Fin al Result Performing Organization Address [facility] Co de Phone Number [facility]ATORY [facility] [address] [place] [address] * NON-FORMULARY TEST REQUEST (06/03/2024 9:41 AM EST) Request accepted/reject ed Accepted 06/03/2024 12:47 PM EST [facility] Performing Lab Other 06/03/2024 12:47 PM EST [facility] Test Code Interleukin- 18 06/03/2024 12:47 PM EST [facility] Test Description Interleukin- 18 06/03/2024 12:47 PM EST [facility] 06/03/2024 9:41 AM EST 06/03/2024 9:41 AM EST Narrative [facility] - 06/03/2024 12:47 PM EST Laboratory testing ordered. PATIENT MAY NOW BE COLLECTED Approve this testing, send to [facility]. This non-formulary test request was reviewed by Danika Wtit MD us Tiffanie Fisher MD LAB BLOOD ORDERABLES Fin al Result Performing Organization Address City/[facility] Co de Phone Number LAB[facility]ATORY [facility] [address] [place] [address] * NON-FORMULARY TEST REQUEST (06/03/2024 9:41 AM EST) Request accepted/rejecte d Accepted 06/03/2024 12:48 PM EST [facility] Performing Lab Other 06/03/2024 12:48 PM EST [facility] Test Code CXCL9 06/03/2024 12:48 PM EST [facility] Test Description CXCL9 06/03/20 12:48 PM EST [facility] 06/03/2024 9:41 AM EST 06/03/2024 9:41 AM EST Narrative [facility] - 06/03/2024 12:48 PM EST Laboratory testing ordered. PATIENT MAY NOW BE COLLECTED Approve this testing, send to [facility] This non-formulary test request was reviewed by Danika Witt MD us Tiffanie Fisher MD LAB BLOOD ORDERABLES Fin al Result [facility]ATORY [facility] [address] [place] [address] * (ABNORMAL) IMMUNOGLOBULIN G SUBCLASSES (06/03/2024 5:57 AM EST) Pathologist [facility] Immunoglobulin G Subclass 1 862 382 - 929 mg/dL 06/07/2024 2:59 PM EST [facility] Immunoglobulin G Subclass 2 102(L) 241 - 700 mg/dL 06/07/2024 2:59 PM EST [facility] Immunoglobulin G Subclass 3 64 22 - 178 mg/dL 06/07/2024 2:59 PM EST [facility] Immunoglobulin G Subclass 4 9.5 4.0 - 86.0 mg/dL 06/07/2024 2:59 PM EST [facility] Immunoglobulin G, Serum 1274 600 - 1640 mg/dL 06/07/2024 2:59 PM EST [facility] Comment: Test Performed at: [employer] [address] [id number] Rei Kimball M.D., Ph.D.,Director of Laboratories Blood Venous blood specimen / Unknown Venipuncture / Unknown 06/03/2024 5:57 AM EST 06/03/2024 6:20 AM EST us Sue Blanton DO LAB BLOOD ORDERABLES Fin al Result [employer] [place] [address] [place] [address] * CLINICIAN PERIPHERAL BLOOD SLIDE REQUEST (06/03/2024 5:57 AM EST) Pathologist [facility] Clinician Slide Ready? Yes 06/03/2024 2:18 PM EST [facility] Location to pickup slide: [facility] [place] 06/03/2024 2:18 PM EST [facility] Blood Venous blood specimen / Unknown Venipuncture / Unknown 06/03/2024 5:57 AM EST 06/03/2024 6:20 AM EST Aleksandra Knutson MD LAB BLOOD ORDERABLES Final Re sult Performing Organization Address City/[facility]/ZIP Co de Phone Number [facility]ATORY [facility] [address] [place] [address] * SYPHILIS ANTIBODY SCREEN (06/03/2024 5:57 AM EST) [facility] Syphilis Screen Interpretation Nonreactive Nonreactive 06/04/2024 9:38 AM EST [facility] Comment:No serologic evidenc e of syphilis. No additional testing clinicially indicated at this time. Consider repeat testing in 2-4 weeks if acute or primary syphilis is suspected. Blood Venous blood specimen / Unknown Venipuncture / Unknown 06/03/2024 5:57 AM EST 06/03/2024 6:20 AM EST Flex Nunez MD LAB BLOOD ORDERABLES Final Resul t Performing Organization Address City/[facility] Co de Phone Number [facility]ATORY [facility] [address] [place] [address] * ANTINUCLEAR ANTIBODY (DESTINY) SCREEN, HARINI (06/03/2024 5:57 AM EST) Pathologist [facility] DESTINY Screen Negative Negative 06/04/2024 2:09 PM EST [facility] dsDNA Antibody Interpretation Negative Negative 06/04/2024 2:09 PM EST [facility] dsDNA Antibody Value 2.9 <20 IU/mL 06/04/2024 2:09 PM EST [facility] [place]NAN Antibodies Screen Interpretation Negative Negative 06/04/2024 2:09 PM EST [facility]ATORY [facility] Antibodies Screen Value 0.3 <0.7 Ratio 06/04/2024 2:09 PM EST LABORATORY [facility] Comment: Screening is based on detection of the following antibodies: dsDNA, U1-PIPE CLEANING MACHINE OPERATOR (RNP70, A, C), SS-A/Ro, SS-B / La, Marlene-1, Scl-70, Centromere B proteins and Sm proteins. In conjunction with clinical findings, this can aid in the diagnosis of systemic lupus erythematosous (SLE), mixed connective tissue disease (MCTD), Sjogren's syndrome, scleroderma and polymyositis/dermatomyositis. However, a negative result does not rule out systemic rheumatic or other autoimmune disease. If clinically suspected, further evaluation and testing may be necessary. Please consult with Rheumatology Department. Methodology: Fluorescent Enzyme Immunoassay. Blood Venous blood specimen / Unknown Venipuncture / Unknown 06/03/2024 5:57 AM EST 06/03/2024 6:20 AM EST Noah Marie DO LAB BLOOD ORDERABLES Final Res ult [facility] [address] [place] [address] * (ABNORMAL) COMPREHENSIVE METABOLIC PANEL (06/03/2024 5:57 AM EST) BUN 6 6 - 20 mg/dL 06/03/2024 9:43 AM EST LAB[facility]ATORY [facility] CREATININE 0.5 0.5 - 1.0 mg/dL 06/03/2024 9:43 AM EST LAB[facility]ATORY [facility] EGFR >90 >=60 mL/min 06/03/2024 9:43 AM EST LABORATORY [facility] Comment:eGFR is calculated b ased on the CKD-EPI 2020 equation. SODIUM 134(L) 135 - 146 mmol/L 06/03/2024 9:43 AM EST [facility] POTASSIUM 3.4(L) 3.5 - 5.1 mmol/L 06/03/2024 9:43 AM EST [facility] CHLORIDE 104 98 - 107 mmol/L 06/03/2024 9:43 AM EST [facility] CO2 21(L) 22 - 32 mmol/L 06/03/2024 9:43 AM EST [facility] ANION GAP 9 7 - 15 mmol/L 06/03/2024 9:43 AM EST [facility] GLUCOSE 95 70 - 120 mg/dL 06/03/2024 9:43 AM EST [facility] Albumin 2.1(L) 3.8 - 5.0 g/dL 06/03/2024 9:43 AM EST [facility] AST 137(H) 10 - 35 U/L 06/03/2024 9:43 AM EST [facility] Alkaline Phosphatase 93 35 - 130 U/L 06/03/2024 9:43 AM EST [facility] Bilirubin, Total 0.3 <=1.2 mg/dL 06/03/2024 9:43 AM EST [facility] CALCIUM 7.1(L) 8.4 - 10.2 mg/dL 06/03/2024 9:43 AM EST [facility] Protein 5.0(L) 6.0 - 8.3 g/dL 06/03/2024 9:43 AM EST [facility] ALT 42(H) 10 - 35 U/L 06/03/2024 9:43 AM EST [facility] Blood Venous blood specimen / Unknown Venipuncture / Unknown 06/03/2024 5:57 AM EST 06/03/2024 6:20 AM EST Noah Marie DO LAB BLOOD ORDERABLES Final Res ult [facility] [address] [place] [address] * (ABNORMAL) APTT (06/03/2024 5:57 AM EST) aPTT 40(H) 21 - 38 seconds 06/03/2024 6:54 AM EST [facility] Blood Venous blood specimen / Unknown Venipuncture / Unknown 06/03/2024 5:57 AM EST 06/03/2024 6:20 AM EST Narrative [facility]ATORY [facility] - 06/03/2024 6:54 AM EST Anticoagulation may affect testing. Refer to [employer] Test Catalog for a list of effects. Noah Marie DO LAB BLOOD ORDERABLES Final Res ult [facility] [address] [place] [address] * (ABNORMAL) D-DIMER (06/03/2024 5:57 AM EST) D-Dimer 2.70(H) <0.50 ug/mL FEU 06/03/2024 7:06 AM EST [facility] Blood Venous blood specimen / Unknown Venipuncture / Unknown 06/03/2024 5:57 AM EST 06/03/2024 6:20 AM EST Narrative [facility] - 06/03/2024 7:06 AM EST Rheumatoid factor at a level above 50 IU/mL may lead to an overestimation of the D-dimer level. A normal D-dimer result (<0.50 ug/mL FEU) has a negative predictive value of approximately 95% for the exclusion of acute pulmonary embolism (PE) or deep vein thrombosis when there is low or moderate pretest PE probability. Increased D-dimer values are abnormal but do not indicate a specific disease state and the D-dimer increase does not definitively correlate with clinical severity of disease. Noah Marie DO LAB BLOOD ORDERABLES Final Res ult Performing Organization Address City/[facility]/ZIP Co de Phone Number [facility]ATORY [facility] [address] [place] [address] * PT INR (06/03/2024 5:57 AM EST) Pathologist [facility] Prothrombin Time 13.6 11.6 - 15.2 seconds 06/03/2024 6:54 AM EST [facility] INR 1.0 0.8 - 1.2 06/03/2024 6:54 AM EST [facility] Blood Venous blood specimen / Unknown Venipuncture / Unknown 06/03/2024 5:57 AM EST 06/03/2024 6:20 AM EST Narrative [facility] - 06/03/2024 6:54 AM EST Warfarin Therapy INR: 2.0-3.0 conventional anticoagulation INR: 2.5-3.5 high intensity anticoagulation Noah Marie DO LAB BLOOD ORDERABLES Final Res ult Performing Organization Address City/[facility]/ZIP Co de Phone Number [facility] [address] [place] [address] * (ABNORMAL) TRIGLYCERIDES (06/03/2024 5:57 AM EST) Triglycerides 352(H) <=174 mg/dL 06/03/2024 7:02 AM EST [facility] Comment: Triglyceride Reference Ranges (mg/dL): <150 Acceptable 150-174 Borderline high 175-499 High >=500 Very high Blood Venous blood specimen / Unknown Venipuncture / Unknown 06/03/2024 5:57 AM EST 06/03/2024 6:20 AM EST Noah Marie DO LAB BLOOD ORDERABLES Final Res ult Performing Organization Address City/[facility]/ZIP Co de Phone Number [facility] [address] [place] [address] * (ABNORMAL) LD (06/03/2024 5:57 AM EST) LD 557(H) <=250 U/L 06/03/2024 7:02 AM EST [facility] Blood Venous blood specimen / Unknown Venipuncture / Unknown 06/03/2024 5:57 AM EST 06/03/2024 6:20 AM EST Noah Marie DO LAB BLOOD ORDERABLES Final Res ult [facility] [address] [place] [address] * (ABNORMAL) FERRITIN (06/03/2024 5:57 AM EST) Ferritin 9,201(H) 13 - 150 ng/mL 06/03/2024 10:15 AM EST [facility] Blood Venous blood specimen / Unknown Venipuncture / Unknown 06/03/2024 5:57 AM EST 06/03/2024 6:20 AM EST Noah Marie DO LAB BLOOD ORDERABLES Final Res ult Performing Organization Address [facility] Co de Phone Number [facility] [address] [place] [address] * (ABNORMAL) CRP (INFLAMMATORY MARKER) (06/03/2024 5:57 AM EST) CRP (Inflammatory Marker) 67(H) <=5 mg/L 06/03/2024 7:02 AM EST [facility] Blood Venous blood specimen / Unknown Venipuncture / Unknown 06/03/2024 5:57 AM EST 06/03/2024 6:20 AM EST Noah Marie DO LAB BLOOD ORDERABLES Final Res ult Performing Organization Address [facility] Phone Number [facility] [address] [place] [address] * (ABNORMAL) ERYTHROCYTE SEDIMENTATION RATE (ESR) (06/03/2024 5:57 AM EST) ESR 29(H) <20 mm/hour 06/03/2024 6:35 AM EST LABORATORY [facility] Blood Venous blood specimen / Unknown Venipuncture / Unknown 06/03/2024 5:57 AM EST 06/03/2024 6:20 AM EST Noah Marie DO LAB BLOOD ORDERABLES Final Res ult Performing Organization Address [facility] de Phone Number [facility] [address] [place] [address] * (ABNORMAL) CBC (06/03/2024 5:57 AM EST) WBC 4.46 4.00 - 10.80 K/uL 06/03/2024 6:41 AM EST [facility] RBC 3.14 3.85 - 5.15 M/uL 06/03/2024 6:41 AM EST [facility] HGB 8.5(L) 12.0 - 15.3 g/dL 06/03/2024 6:41 AM EST [facility] HCT 26.6(L) 36.0 - 45.2 % 06/03/2024 6:41 AM EST [facility] MCV 84.7 81.5 - 97.5 fL 06/03/2024 6:41 AM EST [facility] MCH 27.1 27.0 - 34.0 pg 06/03/2024 6:41 AM EST [facility] MCHC 32.0 32.0 - 36.0 g/dL 06/03/2024 6:41 AM EST [facility] RDW 18.1 11.5 - 15.5 % 06/03/2024 6:41 AM EST [facility] PLT 321 140 - 400 K/uL 06/03/2024 6:41 AM EST [facility] MPV 8.6 6.6 - 11.1 fL 06/03/2024 6:41 AM EST [facility] nRBCs 0 <=0 /100 WBCs 06/03/2024 6:41 AM EST [facility] Blood Venous blood specimen / Unknown Venipuncture / Unknown 06/03/2024 5:57 AM EST 06/03/2024 6:20 AM EST Noah Marie DO LAB BLOOD ORDERABLES Final Res ult [facility] [address] [place] [address] * IGM (06/03/2024 5:57 AM EST) IgM 131 40 - 230 mg/dL 06/03/2024 7:04 AM EST [facility] Blood Venous blood specimen / Unknown Venipuncture / Unknown 06/03/2024 5:57 AM EST 06/03/2024 6:20 AM EST Noah Marie DO LAB BLOOD ORDERABLES Final Res ult [facility] [address] [place] [address] * IGA (06/03/2024 5:57 AM EST) IgA 72 70 - 400 mg/dL 06/03/2024 7:04 AM EST [facility] Blood Venous blood specimen / Unknown Venipuncture / Unknown 06/03/2024 5:57 AM EST 06/03/2024 6:20 AM EST Noah Marie DO LAB BLOOD ORDERABLES Final Res ult Performing Organization Address City/[facility]/ZIP Co de Phone Number [facility] [address] [place] [address] * IGG (06/03/2024 5:57 AM EST) IgG 1,410 700 - 1,600 mg/dL 06/03/2024 7:04 AM EST [facility] Blood Venous blood specimen / Unknown Venipuncture / Unknown 06/03/2024 5:57 AM EST 06/03/2024 6:20 AM EST Noah Marie DO LAB BLOOD ORDERABLES Final Res ult Performing Organization Address City/[facility]/ZIP Co de Phone Number [facility] [address] [place] [address] * FIBRINOGEN (06/03/2024 5:57 AM EST) Fibrinogen 389 178 - 467 mg/dL 06/03/2024 6:54 AM EST [facility] Blood Venous blood specimen / Unknown Venipuncture / Unknown 06/03/2024 5:57 AM EST 06/03/2024 6:20 AM EST Noah Marie DO LAB BLOOD ORDERABLES Final Res ult Performing Organization Address City/[facility] Co de Phone Number [facility] [address] [place] [address] * COMPLEMENT C4 (06/03/2024 5:57 AM EST) Complement C4 17 10 - 40 mg/dL 06/03/2024 7:04 AM EST [facility] Blood Venous blood specimen / Unknown Venipuncture / Unknown 06/03/2024 5:57 AM EST 06/03/2024 6:20 AM EST Noah Wildevak LAB BLOOD ORDERABLES Final Res ult Performing Organization Address [facility] de Phone Number [facility] [address] [place] [address] * (ABNORMAL) COMPLEMENT C3 (06/03/2024 5:57 AM EST) Complement C3 70(L) 90 - 180 mg/dL 06/03/2024 7:04 AM EST [facility] Blood Venous blood specimen / Unknown Venipuncture / Unknown 06/03/2024 5:57 AM EST 06/03/2024 6:20 AM EST Noah Marie DO LAB BLOOD ORDERABLES Final Res ult Performing Organization Address [facility] de Phone Number [facility] [address] [place] [address] * CULTURE, URINE, QUANTITATIVE (06/02/2024 11:07 PM EST) Culture Growth No significant growth 06/04/2024 8:47 AM EST [facility] Urine Urine specimen obtained by clean catch procedure / Unknown Non-blood Collection / Unknown 06/02/2024 11:07 PM EST 06/02/2024 11:17 PM EST Noah aMrie DO LAB MICRO - GENERAL ORDERABLES Final Result Performing Organization Address [facility] de Phone Number [facility] [address] [place] [address] * (ABNORMAL) URINALYSIS, REFLEX TO CULTURE (06/02/2024 11:07 PM EST) Color, Urine Yellow Colorless, Light Yellow, Yellow, Dark Yellow 06/03/2024 12:10 AM EST [facility] Clarity, Urine Clear Clear 06/03/2024 12:10 AM EST [facility] Glucose, Urine Negative Negative mg/dL 06/03/2024 12:10 AM EST [facility] Bilirubin, Urine Negative Negative 06/03/2024 12:10 AM EST [facility] Ketone, Urine Negative Negative mg/dL 06/03/2024 12:10 AM EST [facility] Specific [place], Urine 1.050(H) 1.003 - 1.030 06/03/2024 12:10 AM EST [facility] Blood, Urine Small(A) Negative 06/03/2024 12:10 AM EST LABORATORY C pH, Urine 6.5 5.0 - 7.5 Units 06/03/2024 12:10 AM EST LABORATORY [facility] Protein, Urine 30(A) Negative mg/dL 06/03/2024 12:10 AM EST [facility] Urobilinogen, Urine Normal Normal mg/dL 06/03/2024 12:10 AM EST [facility] Nitrite, Urine Negative Negative 06/03/2024 12:10 AM EST [facility] Esterase, Urine Negative Negative 06/03/2024 12:10 AM EST [facility] RBC, Urine 10-19(A) 0 - 2 /HPF 06/03/2024 12:10 AM EST [facility] WBC, Urine 3-5(A) 0 - 2 /HPF 06/03/2024 12:10 AM EST [facility] Bacteria, Urine 51-100(A) 0 - 25 /HPF 06/03/2024 12:10 AM EST [facility] Culture, Urine 06/03/2024 12:10 AM EST [facility] Comment:Quantitative urine c ulture to be performed Urine Urine specimen obtained by clean catch procedure / Unknown Non-blood Collection / Unknown 06/02/2024 11:07 PM EST 06/02/2024 11:17 PM EST us Noah Marie DO LAB URINE ORDERABLES Final Res ult [facility] [address] [place] [address] * URINALYSIS, REFLEX TO CULTURE (CUP ONLY) (06/02/2024 11:07 PM EST) Urinalysis, Reflex to Culture Specimen Specimen collected and received 06/03/2024 1:02 AM EST [facility] Urine Urine specimen obtained by clean catch procedure / Unknown Non-blood Collection / Unknown 06/02/2024 11:07 PM EST 06/02/2024 11:17 PM EST Noah [facility] LAB URINE ORDERABLES Final Res ult Performing Organization Address City/[facility]/ZIP Co de Phone Number [facility] [address] [place] [address] * (ABNORMAL) PROTEIN/ CREATININE RATIO, URINE (06/02/2024 11:07 PM EST) Protein/ Creatinine Ratio, Urine 624(H) <150 mg/g 06/02/2024 11:46 PM EST [facility] Protein, Random Urine 53 mg/dL 06/02/2024 11:46 PM EST [facility] Creatinine, Random Urine 85 mg/dL 06/02/2024 11:46 PM EST [facility] Urine Urine specimen obtained by clean catch procedure / Unknown Non-blood Collection / Unknown 06/02/2024 11:07 PM EST 06/02/2024 11:17 PM EST Narrative [facility] - 06/02/2024 11:46 PM EST Normal: <150 mg/g creatinine High: 150-500 mg/g creatinine Very High: >500 mg/g creatinine Nephrotic: >3000 mg/g creatinine Noah Cynthia DO LAB URINE ORDERABLES Final Res ult Performing Organization Address City/[facility]/ZIP Co de Phone Number [facility] [address] [place] [address] * ABO/RH (06/02/2024 10:17 PM EST) ABO B 06/02/2024 11:34 PM EST [facility] BLOOD B[facility] Rh Negative 06/02/2024 11:34 PM EST [facility] Blood Venous blood specimen / Unknown Venipuncture / Unknown 06/02/2024 10:17 PM EST 06/02/2024 10:40 PM EST [facility] LAB BLOOD BANK TEST ORDERABLES Final Result Performing Organization Address City/[facility]/ZIP Co de Phone Number [facility] [address] [place] [address] * TYPE AND SCREEN (06/02/2024 10:17 PM EST) ABO B 06/02/2024 11:17 PM EST [facility] BLO[facility] Rh Negative 06/02/2024 11:17 PM EST [facility] Red Blood Cell Antibody Screen Negative 06/02/2024 11:17 PM EST [facility] Specimen Expiration Date 06/05/2024 23:59 06/02/2024 11:17 PM EST [facility] B[facility] Blood Venous blood specimen / Unknown Venipuncture / Unknown 06/02/2024 10:17 PM EST 06/02/2024 10:40 PM EST [facility] LAB BLOOD BANK TEST ORDERABLES Final Result Performing Organization Address [facility] Co de Phone Number [facility] B[facility] [address] [place] [address] * CULTURE, BLOOD (06/02/2024 10:17 PM EST) Blood Culture Growth No growth 06/07/2024 11:02 PM EST [facility] Blood Venous blood specimen / Unknown Venipuncture / Unknown 06/02/2024 10:17 PM EST 06/02/2024 10:55 PM EST [facility] LAB MICRO - GENERAL ORDERABLES Final Result Performing Organization Address City/[facility] Co de Phone Number [facility] [address] [place] [address] * CULTURE, BLOOD (06/02/2024 10:17 PM EST) Blood Culture Growth No growth 06/07/2024 11:02 PM EST LAB[facility] Blood Venous blood specimen / Unknown Venipuncture / Unknown 06/02/2024 10:17 PM EST 06/02/2024 10:55 PM EST Noah Marie DO LAB MICRO - GENERAL ORDERABLES Final Result [facility] [address] [place] [address] * SERUM IMMUNOFIXATION (06/02/2024 2:31 PM EST) Pathologist [facility] Normal/Abnormal Normal Normal 4:42 PM EST LAB[facility] Immunofixation Interpretation No monoclonal gammopathy detected. 06/05/2024 4:42 PM EST [facility] Blood Venous blood specimen / Unknown Venipuncture / Unknown 06/02/2024 2:31 PM EST 06/02/2024 2:38 PM EST Sue Blanton DO LAB BLOOD ORDERABLES Fin al Result Performing Organization Address City/[facility]/ZIP Co de Phone Number [facility] [address] [place] [address] * (ABNORMAL) SERUM PROTEIN ELECTROPHORESIS REFLEX PROFILE (06/02/2024 2:31 PM EST) [facility] Normal/Abnormal Normal Normal 4:42 PM EST [facility] Protein 5.9(L) 6.0 - 8.3 g/dL 06/05/2024 4:42 PM EST [facility] Albumin 2.03(L) 3.30 - 4.40 g/dL 06/05/2024 4:42 PM EST [facility] Alpha-1 Globulin 0.41(H) 0.10 - 0.30 g/dL 06/05/2024 4:42 PM EST [facility] Alpha-2 Globulin 1.22(H) 0.60 - 1.00 g/dL 06/05/2024 4:42 PM EST [facility] Beta-Globulin 0.70(L) 0.80 - 1.30 g/dL 06/05/2024 4:42 PM EST [facility] Gamma-Globulin 1.54 0.70 - 1.70 g/dL 06/05/2024 4:42 PM EST [facility] Electrophoresis Interpretation No paraprotein detected. There is a polyclonal increase in the gamma fraction. This finding may be seen in association with chronic inflammation, infection, chronic liver disease or collagen disorders. 06/05/2024 4:42 PM EST LABORATORY [facility] Blood Venous blood specimen / Unknown Venipuncture / Unknown 06/02/2024 2:31 PM EST 06/02/2024 2:38 PM EST Sue Blanton LAB BLOOD ORDERABLES Fin al Result Performing Organization Address City/[facility]/ZIP Co de Phone Number [facility] [address] [place] [address] * DOUBLE STRANDED DNA (DSDNA) ANTIBODY, QUANT (06/02/2024 2:31 PM EST) dsDNA Antibody Interpretation Negative Negative 06/05/2024 12:04 PM EST [facility] dsDNA Antibody Value 3.0 <20 IU/mL 06/05/2024 12:04 PM EST [facility] Blood Venous blood specimen / Unknown Venipuncture / Unknown 06/02/2024 2:31 PM EST 06/02/2024 2:38 PM EST Sue Blanton DO LAB BLOOD ORDERABLES Fin al Result Performing Organization Address City/[facility] Co de Phone Number [facility] [address] [place] [address] * (ABNORMAL) HAPTOGLOBIN (06/02/2024 2:31 PM EST) Haptoglobin 496(H) 30 - 200 mg/dL 06/03/2024 12:01 AM EST [facility] Blood Venous blood specimen / Unknown Venipuncture / Unknown 06/02/2024 2:31 PM EST 06/02/2024 2:38 PM EST Amanuel Blanton MD LAB BLOOD ORDERABLES Final Result [facility] [address] [place] [address] * ACUTE HEPATITIS PANEL (06/01/2024 11:36 AM EST) Hepatitis A Antibody IgM Negative Negative 06/03/2024 9:33 AM EST [facility] [place] B Core Antibody IgM Negative Negative 06/03/2024 9:33 AM EST [facility] [place] B Surface Antigen Negative Negative 06/03/2024 9:33 AM EST [facility] [place] C Antibody Negative Negative 06/03/2024 9:33 AM EST [facility] [place] Venous blood specimen / Unknown Venipuncture / Unknown 06/01/2024 11:36 AM EST 06/01/2024 11:36 AM EST Sue Blanton DO LAB BLOOD ORDERABLES Fin al Result Performing Organization Address [facility] Co de Phone Number [facility] [address] [place] [address] documented in this encounter Visit Diagnoses Diagnosis Undifferentiated inflammatory polyarthritis (HCC)- Primary Unspecified inflammatory polyarthropathy Joint pain Pain in joint, site unspecified Chest pain, unspecified type Gallstone pancreatitis Acute pancreatitis Acute pancreatitis without necrosis or infection, unspecified Other disorders of lung Other nonspecific abnormal finding of lung field Localized enlarged lymph nodes Enlargement of lymph nodes Tachycardia, unspecified Electrolyte abnormality Electrolyte and fluid disorders not elsewhere classified Abdominal distension (gaseous) Flatulence, eructation, and gas pain Abnormal findings on diagnostic imaging of other abdominal regions, including retroperitoneum Unspecified abdominal pain Encounter for fitting and adjustment of other gastrointestinal appliance and device Pleural effusion, not elsewhere classified Other ascites Personal history of other diseases of the digestive system 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, chronic or unspecified Anemia of chronic disease Anemia of other chronic disease MAS (macrophage activation 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, chronic or unspecified Rash and nonspecific skin eruption Rash and other nonspecific skin eruption Chest pain, non-cardiac Other chest pain Idiopathic acute pancreatitis Acute pancreatitis Gallstone pancreatitis Acute pancreatitis Isolated proteinuria without specific morphologic lesion Hypocalcemia Ileus (HCC) Paralytic ileus documented in this encounter Administered Medications Inactive Administered Medications - up to 3 most recent administrations Medication Order MAR Action Action Date Dose Rate Site Acetaminophen (Tylenol) tab 650 mg 650 mg, Oral, Q6H PRN Fever >38C(100.5F), Pain, Mild, Starting on Sat06/03/24 at 0148, Until Yenny 06/04/24 at 0941, Maximum of 4 grams (4000 mg) per day. Given 06/03/2024 3:24 PM EST 650 mg Given 06/03/2024 1:52 AM EST 650 mg Acetaminophen (Tylenol) tab 650 mg 650 mg, Oral, Q6H, First dose (after last modification) on [place] 06/04/24 at 1200, Until Discontinued, Maximum of 4 grams (4000 mg) per day. Given 06/06/2024 5:40 PM EST 650 mg Given 06/06/2024 11:36 AM EST 650 mg Given 06/06/2024 5:06 AM EST 650 mg Acetaminophen (Tylenol) tab 650 mg 650 mg, NG Tube, Q6H, First dose (after last modification) on Sat06/07/24 at 0045, Until Discontinued, Maximum of 4 grams (4000 mg) per day. Given 06/08/2024 12:01 PM EST 650 mg Given 06/08/2024 5:19 AM EST 650 mg Given 06/07/2024 11:02 PM EST 650 mg Acetaminophen (Tylenol) tab 650 mg 650 mg, Oral, Q6H, First dose (after last modification) on 06/08/24 at 2130, Until Discontinued, Maximum of 4 grams (4000 mg) per day. Given 06/13/2024 11:26 AM EST 650 mg Given 06/13/2024 5:58 AM EST 650 mg Given 06/12/2024 11:49 PM EST 650 mg albumin, human 25 % inj 25 g Intravenous, Please scan computer engineering technologist "square" 2D barcode to record Lot/ Expiration, Q12H, 4 doses, First dose (after last modification) on 06/06/24 at 1100, Last dose on 06/07/24 at 2100 Rate Verify 06/07/2024 10:00 PM EST 100 mL/hr New Bag 06/07/2024 9:17 PM EST 25 g 100 mL/hr New Bag 06/07/2024 9:02 AM EST 25 g 200 mL/hr Anakinra (Kineret) inj 100 mg 100 mg, Subcutaneous, Daily(AM), First dose (after last modification) on Sat06/06/24 at 0900, Until Discontinued Given 06/06/2024 8:20 AM EST 100 mg Abdomen Right Lower Anakinra (Kineret) inj 200 mg 200 mg, Subcutaneous, Daily(AM), First dose on Sat06/03/24 at 1000, Until Discontinued Given 06/05/2024 8:02 AM EST 200 mg Abdomen Left Lower Given 06/04/2024 7:42 AM EST 200 mg Ar m Right Upper Given 06/03/2024 10:24 AM EST 200 mg A bdomen Right Lower buffered lidocaine 1 % inj 30 mL 30 mL, Intradermal, ONCE, On [place] 06/04/24 at 1430, For 1 dose, Buffered with sodium bicarbonate Given By 06/04/2024 2:07 PM EST 30 mL Calcitriol (Calcijex) inj 0.5 mcg 0.5 mcg, IV Push, Daily(AM), First dose on Sat06/07/24 at 1300, Until Discontinued Given 06/08/2024 8:44 AM EST 0.5 mcg Given 06/07/2024 2:05 PM EST 0.5 mcg Calcitriol (Rocaltrol) cap 0.5 mcg 0.5 mcg, Oral, Daily(AM), First dose (after last modification) on Sat06/12/24 at 0900, Until Discontinued Given 06/13/2024 7:48 AM EST 0.5 mcg Given 06/12/2024 7:28 AM EST 0.5 mcg Calcitriol (Rocaltrol) cap 1 mcg 1 mcg, Oral, HS, First dose on Sat06/11/24 at 2200, Until Discontinued Given 06/12/2024 8:57 PM EST 1 mcg Given 06/11/2024 10:25 PM EST 1 mcg Calcitriol (Rocaltrol) oral soln 0.5 mcg 0.5 mcg, Oral, Daily(AM), First dose (after last modification) on Sat06/09/24 at 0900, Until Discontinued Given 06/10/2024 8:14 AM EST 0.5 mcg Given 06/09/2024 10:00 AM EST 0.5 mcg Calcitriol (Rocaltrol) oral soln 0.5 mcg 0.5 mcg, Oral, BID (.AM/PM), First dose (after last modification) on Sat06/10/24 at 2100, Until Discontinued Given 06/11/2024 8:36 AM EST 0.5 mcg Given 06/10/2024 9:44 PM EST 0.5 mcg calcium CARBonate (Tums E-X) tab CHEW 750 mg 750 mg, Oral, TID(AM/NOON/HS), First dose on Sat06/06/24 at 0930, Until Discontinued Given 06/06/2024 9:41 AM EST 750 mg calcium CARBonate (Tums E-X) tab CHEW 750 mg 750 mg, Oral, TID(AM/NOON/HS), First dose (after last modification) on Sat06/06/24 at 1745, Until Discontinued Given 06/06/2024 9:13 PM EST 750 mg Given 06/06/2024 5:40 PM EST 750 mg calcium CARBonate (Tums E-X) tab CHEW 750 mg 750 mg, NG Tube, TID(AM/NOON/HS), First dose (after last modification) on Sat06/07/24 at 0600, Until Discontinued Given 06/07/2024 11:43 AM EST 750 mg Given 06/07/2024 5:51 AM EST 750 mg calcium CHLORide 1,000 mg in D5W 100 mL ivpb 1,000 mg, IV Piggyback, ONCE, 1 dose, On Sat06/09/24 at 0630, Do not run through TPN line or with any phosphate containing solution New Bag 06/09/2024 10:19 AM EST 1,000 mg 230 mL/hr calcium CITRATE 315 mg + vitamin D 5 mcg (200 units) per tab 2 Tablet, NG Tube, TID (INP ADJ TIME), First dose (after last modification) on Sat06/08/24 at 1200, Until Discontinued, 315 mg elemental calcium and 200 units (5 mcg) vitamin D per tablet Given 06/08/2024 12:01 PM EST 2 Tablets calcium CITRATE 315 mg + vitamin D 5 mcg (200 units) per tab 2 Tablet, Oral, TID (INP ADJ TIME), First dose (after last modification) on Sat06/08/24 at 2200, Until Discontinued, 315 mg elemental calcium and 200 units (5 mcg) vitamin D per tablet Given 06/13/2024 11:26 AM EST 2 Tablets Given 06/13/2024 5:58 AM EST 2 Tablets Given 06/12/2024 8:59 PM EST 2 Tablets calcium GLUConate 1000 mg in 50ml ivpb 1,000 mg, IV Piggyback, ONCE, 1 dose, On Sat06/05/24 at 0800 KVO 06/05/2024 8:56 AM EST 5 mL/hr New 06/05/2024 8:26 AM EST 1,000 mg 100 mL/hr calcium GLUConate 1000 mg in 50ml ivpb 1,000 mg, IV Piggyback, ONCE, 1 dose, On Sat06/08/24 at 1330 New Bag 06/08/2024 2:16 PM EST 1,000 mg 50 mL/hr calcium GLUConate 1000 mg in 50ml ivpb 1,000 mg, IV Piggyback, ONCE, 1 dose, On Sat06/08/24 at 1730 New Bag 06/08/2024 7:54 PM EST 1,000 mg 100 mL/hr calcium GLUConate 2000 mg in 100ml ivpb 2,000 mg, IV Piggyback, ONCE, 1 dose, On 06/06/24 at 0845 New 06/06/2024 8:40 AM EST 2,000 mg 200 mL/hr calcium GLUConate 2000 mg in 100ml ivpb 2,000 mg, IV Piggyback, ONCE, 1 dose, On 06/06/24 at 1800 Rate Verify 06/06/2024 6:29 PM EST 200 mL/hr Restarted 06/06/2024 6:25 PM EST 200 mL/hr KVO 06/06/2024 6:22 PM EST 5 mL/hr calcium GLUConate 2000 mg in 100ml ivpb 2,000 mg, IV Piggyback, ONCE, 1 dose, On Sat06/08/24 at 2215 New Bag 06/08/2024 10:25 PM EST 2,000 mg 100 mL/hr calcium GLUConate 2000 mg in 100ml ivpb 2,000 mg, IV Piggyback, ONCE, 1 dose, On Sat06/10/24 at 0515 New Bag 06/10/2024 5:41 AM EST 2,000 mg 200 mL/hr calcium GLUConate 2000 mg in 100ml ivpb 2,000 mg, IV Piggyback, ONCE, 1 dose, On Sat06/10/24 at 2030 New 06/10/2024 9:44 PM EST 2,000 mg 200 mL/hr Camphor-Menthol (Sarna (Men-Phor)) lotion Topical, PRN Other, Itchy skin, Starting on Sat06/10/24 at 2105, Until Sat06/11/24 at 1651, See nursing care plan Given 06/10/2024 9:50 PM EST Canakinumab (Ilaris) inj 150 mg 150 mg, Subcutaneous, ONCE, On Sat06/12/24 at 1500, For 1 dose, Give premeds 30 minutes prior to injection Given 06/12/2024 3:11 PM EST 150 mg Thigh Left cefepime in D5W (Maxipime) ivpb (THREE hour infusion) 1 g 1 g, IV Piggyback, Q6HNOW, 20 doses, First dose on Sat06/09/24 at 0945, Last dose on Sat06/14/24 at 0700, THREE HOUR INFUSION New 06/11/2024 8:35 AM EST 1 g 16.67 mL/hr Forearm Right Rate Verify 06/11/2024 3:00 AM EST 0.333 g/hr 16.67 mL/hr New 06/11/2024 12:31 AM EST 1 g 16.67 mL/hr cefepime in dextrose premix ivpb 2 g 2 g, IV Piggyback, ONCE, 1 dose, On Sat06/09/24 at 0515, Administer over 30 Minutes New 06/09/2024 7:04 AM EST 2 g 100 mL/hr cefTRIAXone in dextrose (Rocephin) IVPB 2 g IV Piggyback, 2 g, Q24H, First dose (after last modification) on Sat06/11/24 at 1600, Until Discontinued, Administer over 30 Minutes Restarted 06/11/2024 4:59 PM EST 4 g/hr 100 mL/hr New 06/11/2024 4:55 PM EST 2 g 100 mL/hr chlorHEXIDINE (Periogard) 0.12 % oral rinse 15 mL 15 mL, Oral mucosal membrane, BID (0800,1999), First dose on Sat06/06/24 at 2200, Until Discontinued, Include oral/gum/tooth brushing with medication. Use prepackaged oral kit suction tooth brush if available. Given 06/10/2024 8:11 AM EST 15 mL Given 06/09/2024 9:30 PM EST 15 mL Given 06/09/2024 10:00 AM EST 15 mL cholecalciferol (VIT D3) (Vitamin D3) tab 2,000 Units 2,000 Units, Oral, Daily(AM), First dose on Sat06/12/24 at 0900, Until Discontinued, NOTE: 1000 units = 25 mcg Given 06/13/2024 7:[address] 2,000 Units Given 06/12/2024 8:58 AM EST 2,000 Units D5W 1,000 mL with calcium GLUConate 11,000 mg INFUSION Peripheral IV, at 30 mL/hr, CONTINUOUS, Starting on 06/07/24 at 1300, Until Sat06/07/24 at 2041 Rate Verify 06/07/2024 8:00 PM EST 30 mL/hr Rate Verify 06/07/2024 7:00 PM EST 30 mL/hr Rate Verify 06/07/2024 6:00 PM EST 30 mL/hr D5W 1,000 mL with calcium GLUConate 11,000 mg INFUSION Peripheral IV, at 100 mL/hr, CONTINUOUS, Starting on 06/07/24 at 2115, Until Sat06/08/24 at 0601 Rate Verify 06/08/2024 6:00 AM EST 100 mL/hr Rate Verify 06/08/2024 5:00 AM EST 100 mL/hr Rate Verify 06/08/2024 4:00 AM EST 100 mL/hr D5W 1,000 mL with calcium GLUConate 11,000 mg INFUSION Peripheral IV, at 50 mL/hr, CONTINUOUS, Starting on Sat06/08/24 at 0645, Until Sat06/08/24 at 0914 Rate Verify 06/08/2024 9:00 AM EST 50 mL/hr Rate Verify 06/08/2024 7:00 AM EST 50 mL/hr Rate Verify 06/08/2024 6:13 AM EST 50 mL/hr diphenhydrAMINE (Benadryl) inj 50 mg 50 mg, IV Push, ONCE, On Sat06/12/24 at 1430, For 1 dose Given 06/12/2024 2:30 PM EST 50 mg Docusate Sodium (Colace) cap 100 mg 100 mg, Oral, ONCE, On 06/06/24 at 1900, For 1 dose, For oral administration ONLY, if route of administration is other than oral and alternative product must be ordered. Given 06/06/2024 6:33 PM EST 100 mg Enoxaparin (Lovenox) inj 40 mg 40 mg, Subcutaneous, Daily(AM), First dose (after last modification) on Yenny 06/04/24 at 0900, Until Discontinued, If patient is on warfarin, inform provider if daily INR value is 2 or greater! Given 06/04/2024 7:41 AM EST 40 mg Abdomen Left Lower Ergocalciferol (Vitamin D2(Drisdol)) cap 50,000 Units 50,000 Units, Oral, ONCE, On 06/06/24 at 1515, For 1 dose, 1.25 mg = 50,000 units Given 06/06/2024 3:52 PM EST 50,000 Units Ergocalciferol (Vitamin D2(Drisdol)) cap 50,000 Units 50,000 Units, Oral, QWEEK, First dose on Yenny 06/11/24 at 1315, Until Discontinued, 1.25 mg = 50,000 units Given 06/11/2024 2:18 PM EST 50,000 Units Fenofibrate (Lofibra) tab 160 mg 160 mg, Oral, Daily(AM), First dose on Yenny 06/04/24 at 1700, Until Discontinued Given 06/06/2024 8:19 AM EST 160 mg Given 06/05/2024 8:02 AM EST 160 mg Given 06/04/2024 6:02 PM EST 160 mg Fenofibrate (Lofibra) tab 160 mg 160 mg, NG Tube, Daily(AM), First dose (after last modification) on [place] 06/07/24 at 0900, Until Discontinued Given 06/08/2024 8:35 AM EST 160 mg Given 06/07/2024 8:55 AM EST 160 mg Fenofibrate (Lofibra) tab 160 mg 160 mg, Oral, Daily(AM), First dose (after last modification) on e 06/09/24 at 0900, Until Discontinued Given 06/13/2024 7:48 AM EST 160 mg Given 06/12/2024 8:59 AM EST 160 mg Given 06/11/2024 8:37 AM EST 160 mg FLUoxetine (PROzac) cap 20 mg 20 mg, Oral, [id number], First dose (after last modification) on Sat06/03/24 at 1500, Until Discontinued Given 06/06/2024 3:52 PM EST 20 mg Given 06/05/2024 3:06 PM EST 20 mg Given 06/04/2024 4:28 PM EST 20 mg FLUoxetine (PROzac) cap 20 mg 20 mg, Oral, Daily(AM), First dose on Sat06/08/24 at 0900, Until Discontinued Given 06/08/2024 8:35 AM EST 20 mg FLUoxetine (PROzac) cap 20 mg 20 mg, Oral, Daily(AM), First dose (after last modification) on Sat06/09/24 at 0900, Until Discontinued Given 06/13/2024 7:48 AM EST 20 mg Given 06/12/2024 8:58 AM EST 20 mg Given 06/11/2024 8:37 AM EST 20 mg Furosemide (Lasix) inj 20 mg 20 mg, IV Push, ONCE, On Sat06/12/24 at 0900, For 1 dose Given 06/12/2024 8:58 AM EST 20 mg Furosemide (Lasix) inj 40 mg 40 mg, IV Push, ONCE, On Sat06/08/24 at 1000, For 1 dose Given 06/08/2024 10:49 AM EST 40 mg hEParin inj 5,000 Units 5,000 Units, Subcutaneous, Q8H, First dose on 06/07/24 at 0600, Until Discontinued Given 06/13/2024 1:53 PM EST 5,000 Units Abdomen Right Lower Given 06/13/2024 5:58 AM EST 5,000 Units A bdomen Left Lower Given 06/12/2024 8:57 PM EST 5,000 Units A bdomen Right Lower home medication stored in pharmacy Daily(AM), First dose on 06/07/24 at 0900, Until Discontinued, Routine, when the patient is ready for discharge contact pharmacy Hydrocortisone 2.5 % cream Topical, BID (.AM/PM), First dose on Sat06/12/24 at 0900, Until Discontinued, use for ANUSOL HC/PROCTOSOL HC Given 06/13/2024 7:49 AM EST Given 06/12/2024 9:00 PM EST Given 06/12/2024 8:59 AM EST HYDROmorphone (Dilaudid) inj 0.2 mg 0.2 mg, IV Push, ONCE, On Sat06/12/24 at 0530, For 1 dose Given 06/12/2024 5:18 AM EST 0.2 mg HYDROmorphone (Dilaudid) tab 2 mg 2 mg, Oral, Q4H PRN Pain, Moderate, Starting on Sat06/05/24 at 1035, Until Sat06/08/24 at 0903 Given 06/05/2024 3:07 PM EST 2 mg HYDROmorphone (Dilaudid) tab 2 mg 2 mg, Oral, Q4H PRN Pain, Moderate, Starting on Sat06/08/24 at 1846, Until 06/13/24 at 1923 Given 06/12/2024 2:02 AM EST 2 mg Given 06/11/2024 5:47 PM EST 2 mg Given 06/11/2024 8:44 AM EST 2 mg HYDROmorphone (Dilaudid) tab 4 mg 4 mg, Oral, Q4H PRN Pain, Severe, Starting on Sat06/05/24 at 1053, Until 06/08/24 at 0903 Given 06/06/2024 5:40 PM EST 4 mg Given 06/05/2024 8:49 PM EST 4 mg HYDROmorphone (Dilaudid) tab 4 mg 4 mg, Oral, Q4H PRN Pain, Severe, Starting on Sat06/08/24 at 1846, Until 06/13/24 at 1923 Given 06/12/2024 12:16 PM EST 4 mg Given 06/10/2024 12:39 PM EST 4 mg Given 06/10/2024 12:51 AM EST 4 mg Ibuprofen (Motrin) tab 400 mg 400 mg, Oral, ONCE, On 06/09/24 at 0515, For 1 dose Given 06/09/2024 5:17 AM EST 400 mg Iopamidol (Isovue 370) inj 80 mL 80 mL, Intravenous, ONCE, On Yenny 06/04/24 at 1045, For 1 dose, Radiology Medication Routing (Non-IR) Given 06/04/2024 10:45 AM EST 54 mL Iopamidol (Isovue 370) inj 80 mL 80 mL, Intravenous, ONCE, On Y[place] 06/11/24 at 1230, For 1 dose, Radiology Medication Routing (Non-IR) Given 06/11/2024 12:30 PM EST 80 mL isolyte 1,000 mL bolus infusion Intravenous, Administer entire volume within 60 minutes or less. Plasma-LYTE 148, isolyte-S, and isolyte-S pH 7.4 are considered equivalent - including for MAR barcode scanning., ONCE, 1 dose, On Sat06/09/24 at 0515 New Bag 06/09/2024 5:34 AM EST 1,000 mL 1000 mL/hr isolyte 500 mL bolus infusion Intravenous, Administer entire volume within 60 minutes or less. Plasma-LYTE 148, isolyte-S, and isolyte-S pH 7.4 are considered equivalent - including for MAR barcode scanning., ONCE, 1 dose, On Sat06/03/24 at 0330 Associate Infusion Pump 06/03/2024 2:59 AM EST 1000 mL/hr Rate Verify 06/03/2024 2:35 AM EST 1000 mL/hr Bolus from Bag 06/03/2024 2:30 AM EST 500 mL 1000 mL/h r isolyte 500 mL bolus infusion Intravenous, Administer entire volume within 60 minutes or less. Plasma-LYTE 148, isolyte-S, and isolyte-S pH 7.4 are considered equivalent - including for MAR barcode scanning., ONCE, 1 dose, On Sat06/05/24 at 1115 New Bag 06/05/2024 11:41 AM EST 500 mL 500 mL/hr Isolyte-S pH 7.4 infusion Intravenous, at 100 mL/hr, Plasma-LYTE 148, isolyte-S, and isolyte-S pH 7.4 are considered equivalent - including for MAR barcode scanning., CONTINUOUS, Starting on Sat06/02/24 at 2200, Until Sat06/03/24 at 0759 Rate Verify 06/03/2024 6:48 AM EST 100 mL/hr Rate Verify 06/03/2024 4:16 AM EST 100 mL/hr Restarted 06/03/2024 3:38 AM EST 100 mL/hr Isolyte-S pH 7.4 infusion Intravenous, at 100 mL/hr, Plasma-LYTE 148, isolyte-S, and isolyte-S pH 7.4 are considered equivalent - including for MAR barcode scanning., CONTINUOUS, Starting on Yenny 06/04/24 at 1115, Until 06/06/24 at 1848 Restarted 06/06/2024 3:27 PM EST 100 mL/hr Restarted 06/06/2024 3:20 PM EST 100 mL/hr Restarted 06/06/2024 3:15 PM EST 100 mL/hr Isolyte-S pH 7.4 infusion Intravenous, at 100 mL/hr, Plasma-LYTE 148, isolyte-S, and isolyte-S pH 7.4 are considered equivalent - including for MAR barcode scanning., CONTINUOUS, Starting on 06/06/24 at 2030, Until 06/08/24 at 0924 Rate Verify 06/08/2024 9:00 AM EST 100 mL/hr Rate Verify 06/08/2024 7:00 AM EST 100 mL/hr Rate Verify 06/08/2024 6:00 AM EST 100 mL/hr levothyroxine (Levoxyl) tab 25 mcg 25 mcg, Oral, [id number], First dose on Sat06/03/24 at 0630, Until Discontinued Given 06/03/2024 5:35 AM EST 25 mcg levothyroxine (Levoxyl) tab 88 mcg 88 mcg, Oral, [id number], First dose (after last modification) on [place] 06/04/24 at 0630, Until Discontinued Given 06/06/2024 5:06 AM EST 88 mcg Given 06/05/2024 5:07 AM EST 88 mcg Given 06/04/2024 5:31 AM EST 88 mcg levothyroxine (Levoxyl) tab 88 mcg 88 mcg, NG Tube, [id number], First dose (after last modification) on Sat06/07/24 at 0630, Until Discontinued Given 06/08/2024 5:19 AM EST 88 mcg Given 06/07/2024 5:51 AM EST 88 mcg levothyroxine (Levoxyl) tab 88 mcg 88 mcg, Oral, [id number], First dose (after last modification) on Sat06/09/24 at 0630, Until Discontinued Given 06/13/2024 5:58 AM EST 88 mcg Given 06/12/2024 7:27 AM EST 88 mcg Given 06/11/2024 5:53 AM EST 88 mcg Lidocaine (Aspercreme) 4 % patch 1 Patch 1 Patch, Transdermal, ONCE, On [place] 06/04/24 at 0700, For 1 dose, Apply patch for 12 hours then remove for 12 hours! Remove any Lidocaine patches the patient may currently be wearing prior to applying the new patch Patch Applied 06/04/2024 7:41 AM EST 1 Patch Other-Specify magnesium sulfate in SWFI iv piggyback 4,000 mg 4,000 mg, IV Piggyback, ONCE, 1 dose, On Sat06/07/24 at 0830, Administer over 4 Hours Rate Verify 06/07/2024 1:00 PM EST 1 g/hr 25 mL/hr Rate Verify 06/07/2024 12:00 PM EST 1 g/hr 25 mL/hr Restarted 06/07/2024 11:22 AM EST 1 g/hr 25 mL/hr methylPREDNISolone sodium succ (SOLU-Medrol) inj 40 mg 40 mg, Intravenous, Daily(AM), First dose (after last modification) on Sat06/07/24 at 0900, Until Discontinued Given 06/09/2024 10:11 AM EST 40 mg Given 06/08/2024 8:41 AM EST 40 mg Given 06/07/2024 8:55 AM EST 40 mg methylPREDNISolone sodium succ (SOLU-Medrol) inj 40 mg 40 mg, IV Push, ONCE, On Sat06/12/24 at 1430, For 1 dose Given 06/12/2024 2:45 PM EST 40 mg methylPREDNISolone sodium succ (SOLU-Medrol) inj 55 mg 55 mg, Intravenous, Daily(AM), First dose on Sat06/03/24 at 1015, Until Discontinued Given 06/06/2024 8:21 AM EST 55 mg Given 06/05/2024 8:03 AM EST 55 mg Given 06/04/2024 7:56 AM EST 55 mg Morphine Sulfate (PF) inj 3 mg 3 mg, IV Push, Q4H PRN Pain, Breakthrough, Starting on [place] 06/04/24 at 0939, Until Sat06/08/24 at 1448 Given 06/06/2024 12:03 AM EST 3 mg Given 06/05/2024 4:07 AM EST 3 mg Given 06/04/2024 7:32 PM EST 3 mg morphine sulfate inj 1 mg 1 mg, IV Push, Q4H PRN Pain, Severe, Starting on [place] 06/04/24 at 0938, Until 06/05/24 at 1053 Given 06/05/2024 1:45 AM EST 1 mg Given 06/04/2024 5:58 PM EST 1 mg Given 06/04/2024 12:05 PM EST 1 mg morphine sulfate inj 2 mg 2 mg, IV Push, ONCE, On Sat06/10/24 at 0430, For 1 dose Given 06/10/2024 4:11 AM EST 2 mg NSS 1,000 mL with calcium GLUConate 11,000 mg INFUSION Peripheral IV, at 100 mL/hr, CONTINUOUS, Starting on 06/06/24 at 1930, Until Sat06/07/24 at 1211 New Bag 06/07/2024 8:09 AM EST 100 mL/hr Rate Verify 06/07/2024 8:00 AM EST 100 mL/hr Rate Verify 06/07/2024 7:11 AM EST 100 mL/hr omeprazole (PriLOSEC) cap 40 mg 40 mg, Oral, Daily(AM), First dose on Sat06/03/24 at 1400, Until Discontinued, This med should NOT be Crushed or Chewed Given 06/06/2024 8:20 AM EST 40 mg Given 06/05/2024 8:02 AM EST 40 mg Given 06/04/2024 7:41 AM EST 40 mg omeprazole (PriLOSEC) oral susp 40 mg 40 mg, NG Tube, Daily(AM), First dose on Sat06/07/24 at 0900, Until Discontinued, SHAKE WELL AND REFRIGERATEREFRIGERATEREFRIGERATE Given 06/08/2024 8:35 AM EST 40 m g Given 06/07/2024 9:02 AM EST 40 mg omeprazole (PriLOSEC) oral susp 40 mg 40 mg, Oral, Daily(AM), First dose (after last modification) on Sat06/09/24 at 0900, Until Discontinued, SHAKE WELL AND REFRIGERATEREFRIGERATEREFRIGERATE Given 06/13/2024 7:47 AM EST 40 m g Given 06/12/2024 9:04 AM EST 40 mg Given 06/11/2024 8:35 AM EST 40 mg Oral Hygiene: Mouth Swab with dentifrice Oral, Q4H LIMITED (00;04;12;16), First dose on Sat06/07/24 at 0000, Until Discontinued, To be used with 1.5% hydrogen peroxide solution or 0.05% cetylpyridium chloride oral rinse Given 06/10/2024 4:00 PM EST Other-Specify Given 06/10/2024 1:09 PM EST Given 06/10/2024 4:00 AM EST Piperacillin-Tazobactam (Zosyn) 4.5 g in 100 mL NSS ivpb (FOUR hour infusion) IV Piggyback, 4.5 g, Q8HNOW, 15 doses, First dose on Sat06/03/24 at 0800, Last dose on Sat06/08/24 at 0000, Administer over 4 Hours, at 26.25 mL/hr New Bag 06/03/2024 8:04 AM EST 4.5 g 26.25 mL/hr Piperacillin-Tazobactam (Zosyn) 4.5 g in 100 mL NSS ivpb (HALF hour infusion) IV Piggyback, 4.5 g, ONCE, 1 dose, On Sat06/03/24 at 0330, Administer over 30 Minutes Rate Verify 06/03/2024 3:10 AM EST 9 g/hr 210 mL/hr New Bag 06/03/2024 3:08 AM EST 4.5 g 210 mL/hr Polyethylene Glycol 3350 (Miralax) oral powder 17 g 17 g (1 Packet), Oral, PRN Other, If no bowel movement for 24 hours, Starting on [place] 06/04/24 at 0900, Until 06/06/24 at 0856, Mix in 8 oz of water, juice, soda, coffee, or tea. Given 06/06/2024 8:23 AM EST 17 g Polyethylene Glycol 3350 (Miralax) oral powder 17 g 17 g (1 Packet), Oral, BID (0900,2100), First dose (after last modification) on 06/06/24 at 1845, Until Discontinued, Mix in 8 oz of water, juice, soda, coffee, or tea. Given 06/06/2024 6:33 PM EST 17 g Polyethylene Glycol 3350 (Miralax) oral powder 17 g 17 g (1 Packet), Oral, Daily(AM), First dose on [place] 06/11/24 at 0900, Until Discontinued, Mix in 8 oz of water, juice, soda, coffee, or tea. Given 06/11/2024 8:37 AM EST 17 g potassium and sodium phosphate (Phos-Nak) oral powder 1 Packet 1 Packet, Oral, TID(AM/NOON/HS), First dose (after last modification) on Sat06/05/24 at 1300, Last dose on Sat06/08/24 at 0600, For 3 days, Mix in 1/3 glass of water, stir well and administer promptly. 1 packet contains Phosphorus 250 mg (~8 mMoles) + potassium 280 mg (~7.125 mEq) + sodium 160mg (~7.125 mEq) Given 06/06/2024 9:13 PM EST 1 Packet Given 06/06/2024 11:36 AM EST 1 Packet Given 06/06/2024 5:06 AM EST 1 Packet potassium and sodium phosphate (Phos-Nak) oral powder 1 Packet 1 Packet, NG Tube, TID(AM/NOON/HS), First dose (after last modification) on Sat06/07/24 at 0600, Last dose on Sat06/08/24 at 0600, For 4 doses, Mix in 1/3 glass of water, stir well and administer promptly. 1 packet contains Phosphorus 250 mg (~8 mMoles) + potassium 280 mg (~7.125 mEq) + sodium 160mg (~7.125 mEq) Given 06/07/2024 5:51 AM EST 1 Packet potassium and sodium phosphate (Phos-Nak) oral powder 2 Packet 2 Packet, NG Tube, TID(AM/NOON/HS), First dose (after last modification) on Sat06/07/24 at 0800, Last dose on Sat06/08/24 at 0600, For 3 doses, Mix in 1/3 glass of water, stir well and administer promptly. 1 packet contains Phosphorus 250 mg (~8 mMoles) + potassium 280 mg (~7.125 mEq) + sodium 160mg (~7.125 mEq) Given 06/08/2024 5:19 AM EST 2 Packets Given 06/07/2024 9:13 PM EST 2 Packets Given 06/07/2024 8:55 AM EST 2 Packets potassium chloride ER tab 30 mEq 30 mEq, Oral, ONCE, On Yenny 06/04/24 at 0845, For 1 dose, This med should NOT be Crushed or Chewed Given 06/04/2024 8:45 AM EST 30 mEq potassium chloride ER tab 30 mEq 30 mEq, Oral, ONCE, On Sat06/05/24 at 1100, For 1 dose, This med should NOT be Crushed or Chewed Given 06/05/2024 11:40 AM EST 30 mEq potassium chloride ER tab 40 mEq 40 mEq, Oral, ONCE, On Sat06/03/24 at 1030, For 1 dose, This med should NOT be Crushed or Chewed Given 06/03/2024 10:23 AM EST 40 mEq potassium chloride ER tab 40 mEq 40 mEq, Oral, ONCE, On Sat06/03/24 at 1300, For 1 dose, This med should NOT be Crushed or Chewed Given 06/03/2024 2:06 PM EST 40 mEq potassium chloride ER tab 40 mEq 40 mEq, Oral, ONCE, On Sat06/05/24 at 0845, For 1 dose, This med should NOT be Crushed or Chewed Given 06/05/2024 9:53 AM EST 40 mEq potassium chloride ER tab 40 mEq 40 mEq, Oral, ONCE, On Sat06/10/24 at 0845, For 1 dose, This med should NOT be Crushed or Chewed Given 06/10/2024 8:21 AM EST 40 mEq potassium CHLORide liquid 40 mEq 40 mEq, NG Tube, ONCE, On Sat06/08/24 at 0645, For 1 dose, To avoid GI irritation, must further diilute 15 ml in 3 ounces H2O or other fluid Given 06/08/2024 6:13 AM EST 40 mEq potassium phosphate 15 mmol in NSS 250 mL (K phos) ivpb 15 mmol, Peripheral IV, ONCE, 1 dose, On 06/07/24 at 0200 Rate Verify 06/07/2024 4:00 AM EST 6 mmol/hr 104 mL/hr Rate Verify 06/07/2024 3:00 AM EST 6 mmol/hr 104 mL/hr New Bag 06/07/2024 2:15 AM EST 15 mmol 104 mL/hr potassium phosphate 30 mmol in NSS 250 mL (K phos) ivpb 30 mmol, Peripheral IV, ONCE, 1 dose, On 06/10/24 at 0845 Restarted 06/10/2024 3:24 PM EST 6 mmol/hr 53 mL/hr New Bag 06/10/2024 10:32 AM EST 30 mmol 53 mL/hr potassium phosphate 30 mmol in NSS 250 mL (K phos) ivpb 30 mmol, Peripheral IV, ONCE, 1 dose, On Sat06/11/24 at 0815 Restarted 06/11/2024 3:22 PM EST 6 mmol/hr 53 mL/hr Restarted 06/11/2024 1:08 PM EST 6 mmol/hr 53 mL/hr Restarted 06/11/2024 11:49 AM EST 6 mmol/hr 53 mL/hr potassium phosphate 30 mmol in NSS 250 mL (K phos) ivpb 30 mmol, Peripheral IV, ONCE, 1 dose, On Sat06/12/24 at 0830 New Bag 06/12/2024 9:08 AM EST 30 mmol 5 3 mL/hr predniSONE (Deltasone) tab 40 mg 40 mg, Oral, Daily(AM), First dose on Sat06/10/24 at 0900, Until Discontinued Given 06/13/2024 7:47 AM EST 40 mg Given 06/12/2024 8:58 AM EST 40 mg Given 06/11/2024 8:37 AM EST 40 mg predniSONE (Deltasone) tab 5 mg 5 mg, Oral, Daily(AM), First dose on Sat06/03/24 at 0900, Last dose on Sat06/03/24 at 0900, For 1 dose Given 06/03/2024 8:00 AM EST 5 mg senna (Senokot) 1 Tablet 1 Tablet, Oral, Daily(AM), First dose on Sat06/06/24 at 0930, Until Discontinued Given 06/06/2024 9:41 AM EST 1 T ablet senna (Senokot) 1 Tablet 1 Tablet, Oral, BID (.AM/PM), First dose (after last modification) on Sat06/06/24 at 2100, Until Discontinued Given 06/06/2024 9:13 PM EST 1 Tablet senna (Senokot) 1 Tablet 1 Tablet, Oral, Daily(AM), First dose on Sat06/11/24 at 0900, Until Discontinued Given 06/11/2024 8:37 AM EST 1 T ablet senna-docusate (Senokot-S) 1 Tablet 1 Tablet, Oral, Daily(AM), First dose on Sat06/03/24 at 0900, Until Discontinued Given 06/03/2024 8:00 AM EST 1 T ablet sodium chloride 0.9 % flush peripheral matilda 3 mL 3 mL, IV Push, Q8H, First dose on 06/06/24 at 2200, Until Discontinued, Do not flush if lock, PICC, or central line not in place; IV infusing or unable to flush. Given 06/13/2024 2:00 PM EST 3 mL Given 06/13/2024 5:58 AM EST 3 mL Given 06/12/2024 8:59 PM EST 3 mL sodium chloride 0.9 % flush/inj 3 mL 3 mL, IV Push, PRN Other, Line Patency, Starting on Sat06/02/24 at 2000, Until Sat06/13/24 at 1923, Do not flush if lock, PICC, or central line not in place, IV infusing or unable to flush topiramate (topAMAX) tab 75 mg 75 mg, Oral, QHS, First dose on Sat06/02/24 at 2200, Last dose on Sat06/07/24 at 2200, For 6 doses Given 06/04/2024 8:15 PM EST 75 mg Given 06/03/2024 8:16 PM EST 75 mg Given 06/02/2024 9:51 PM EST 75 mg Vancomycin (Vancocin) 1,250 mg in NSS 250 mL ivpb 1,250 mg, IV Piggyback, Q8HNOW, First dose on Sat06/09/24 at 1400, Until Discontinued Rate Verify 06/11/2024 6:32 AM EST 833.3 mg/hr 178 mL/hr Restarted 06/11/2024 5:58 AM EST 833.3 mg/hr 178 mL/hr Restarted 06/11/2024 5:54 AM EST 833.3 mg/hr 178 mL/hr Vancomycin (Vancocin) 1,500 mg in NSS 250 mL ivpb 1,500 mg, IV Piggyback, ONCE, 1 dose, On Sat06/09/24 at 0515 New Bag 06/09/2024 5:24 AM EST 1,500 mg 1 80 mL/hr documented in this encounter Active and Recently Administered Medications Times are shown in EST. Scheduled Medication Order 06/11/2024 06/12/2024 06/13/2024 Acetaminophen (Tylenol) tab 650 mg 650 mg, Oral, Q6H, First dose (after last modification) on Sat06/08/24 at 2130, Until Discontinued, Maximum of 4 grams (4000 mg) per day. 0032 (Given - Provider: Starla Pierson LPN)0555 (Given - Provider: Starla Pierson LPN)1310 (Given - Provider: Monisha Walker, RN)1743 (Given - Provider: Monisha Walker RN) 0201 (Given - Provider: Starla Pierson LPN)0652 (Given - Provider: Starla Pierson LPN)1201 (Given - Provider: Jeanie Cardoza RN)1710 (Given - Provider: Jeanie Cardoza, ASH)2349 (Given - Provider: Katey Valenzuela, ASH) 0558 (Given - Provider: Katey Valenzuela RN)1126 (Given - Provider: Nicole Awad RN) Calcitriol (Rocaltrol) cap 0.5 mcg 0.5 mcg, Oral, Daily(AM), First dose (after last modification) on Sat06/12/24 at 0900, Until Discontinued 07 (Given - Provider: Starla Pierson LPN) 0748 (Given - Provider: Katey Thomas, ASH) Calcitriol (Rocaltrol) cap 1 mcg 1 mcg, Oral, HS, First dose on Sat06/11/24 at 2200, Until Discontinued 2224 (Given - Provider: Starla Pierson LPN) 2056 (Given - Provider: Katey Valenzuela, ASH) Calcitriol (Rocaltrol) oral soln 0.5 mcg (CANCELED) 0.5 mcg, Oral, BID (.AM/PM), First dose (after last modification) on Sat06/10/24 at 2100, Until Discontinued 08 (Given - Provider: Monisha Walker, ASH) calcium CITRATE 315 mg + vitamin D 5 mcg (200 units) per tab 2 Tablet, Oral, TID (INP ADJ TIME), First dose (after last modification) on Sat06/08/24 at 2200, Until Discontinued, 315 mg elemental calcium and 200 units (5 mcg) vitamin D per tablet 0554 (Given - Provider: Starla Pierson LPN)1310 (Given - Provider: Monisha Walker, ASH)2225 (Given - Provider: Starla Pierson LPN) 0726 (Given - Provider: Starla Pierson LPN)1210 (Given - Provider: Jeanie Cardoza, RN)2059 (Given - Provider: Katey Valenzuela, RN) 0558 (Given - Provider: Katey Valenzuela, ASH)1126 (Given - Provider: Nicole Awad, ASH) Canakinumab (Ilaris) inj 150 mg (COMPLETED) 150 mg, Subcutaneous, ONCE, On Sat06/12/24 at 1500, For 1 dose, Give premeds 30 minutes prior to injection 1511 (Given - Provider: Jeanie Cardoza RN) cefepime in D5W (Maxipime) ivpb (THREE hour infusion) 1 g (CANCELED) 1 g, IV Piggyback, Q6HNOW, 20 doses, First dose on Sat06/09/24 at 0945, Last dose on Sat06/14/24 at 0700, THREE HOUR INFUSION 0031 (New Bag - Provider: Strala Pierson LPN)0300 (Rate Verify - Provider: Starla Pierson LPN)0331 (Stopped - Provider: Starla Pierson LPN)0835 (New Bag - Provider: Monisha Walker RN)1015 (Stopped - Provider: Monisha Walker RN) cefTRIAXone in dextrose (Rocephin) IVPB 2 g (CANCELED) IV Piggyback, 2 g, Q24H, First dose (after last modification) on Yenny 06/11/24 at 1600, Until Discontinued, Administer over 30 Minutes 1655 (New Bag - Provider: Monisha Walker RN)1658 (Paused - Provider: Monisha Walker RN)1659 (Restarted - Provider: Monisha Walker RN)1726 (Stopped - Provider: Monisha Walker, ASH) cholecalciferol (VIT D3) (Vitamin D3) tab 2,000 Units 2,000 Units, Oral, Daily(AM), First dose on Sat06/12/24 at 0900, Until Discontinued, NOTE: 1000 units = 25 mcg 0858 (Given - Provider: Jeanie Cardoza RN) 0748 (Given - Provider: Katey Thomas RN) diphenhydrAMINE (Benadryl) inj 50 mg 50 mg, IV Push, Once, On Sat06/12/24 at 1130, For 1 dose, Please premedicate with iv benadrl and iv methylprednisone 30 min prior to administring canakiumab on 06/12 1201 (Not Given - Provider: Jeanie Cardoza RN - Reason: Other- Please add reason in Comments - Comment: Waiting for medication from pharmacy to give in conjuntion per MD.) diphenhydrAMINE (Benadryl) inj 50 mg (COMPLETED) 50 mg, IV Push, ONCE, On Sat06/12/24 at 1430, For 1 dose 1430 (Given - Provider: Jeanie Cardoza, ASH) Ergocalciferol (Vitamin D2(Drisdol)) cap 50,000 Units 50,000 Units, Oral, QWEEK, First dose on Sat06/11/24 at 1315, Until Discontinued, 1.25 mg = 50,000 units 1418 (Given - Provider: Monisha Walker RN) Fenofibrate (Lofibra) tab 160 mg 160 mg, Oral, Daily(AM), First dose (after last modification) on Sat06/09/24 at 0900, Until Discontinued 0837 (Given - Provider: Monisha Walker RN) 0859 (Given - Provider: Jeanie Cardoza RN) 0748 (Given - Provider: Katey Thomas RN) FLUoxetine (PROzac) cap 20 mg 20 mg, Oral, Daily(AM), First dose (after last modification) on Sat06/09/24 at 0900, Until Discontinued 0837 (Given - Provider: Monisha Walker RN) 0858 (Given - Provider: Jeanie Cardoza RN) 0748 (Given - Provider: Katey Thomas RN) Furosemide (Lasix) inj 20 mg (COMPLETED) 20 mg, IV Push, ONCE, On Sat06/12/24 at 0900, For 1 dose 0858 (Given - Provider: Jeanie Cardoza RN) hEParin inj 5,000 Units 5,000 Units, Subcutaneous, Q8H, First dose on Sat06/07/24 at 0600, Until Discontinued 0554 (Given - Provider: Starla Pierson LPN)1310 (Given - Provider: Monisha Walker RN)2225 (Given - Provider: Starla Pierson LPN) 0652 (Given - Provider: Starla Pierson LPN)1457 (Given - Provider: Jeanie Cardoza RN)2057 (Given - Provider: Katey Valenzuela, ASH) 0558 (Given - Provider: Katey Valenzuela, ASH)1353 (Given - Provider: Katey Thomas, ASH) home medication stored in pharmacy Daily(AM), First dose on Sat06/07/24 at 0900, Until Discontinued, Routine, when the patient is ready for discharge contact pharmacy 0900 (Order Check Addressed - Provider: Monisha Walker RN) 0900 (Order Check Addressed - Provider: Jeanie Cardoza RN) 0900 (Order Check Addressed - Provider: Katey Thomas, ASH) Hydrocortisone 2.5 % cream Topical, BID (.AM/PM), First dose on Sat06/12/24 at 0900, Until Discontinued, use for ANUSOL HC/PROCTOSOL HC 0859 (Given - Provider: Jeanie Cardoza RN)2100 (Given - Provider: Katey Valenzuela, ASH) 0749 (Given - Provider: Katey Thomas, ASH) HYDROmorphone (Dilaudid) inj 0.2 mg (COMPLETED) 0.2 mg, IV Push, ONCE, On Sat06/12/24 at 0530, For 1 dose 0518 (Given - Provider: Leny Alvarez, ASH) Iopamidol (Isovue 370) inj 80 mL (COMPLETED) 80 mL, Intravenous, ONCE, On Yenny 06/11/24 at 1230, For 1 dose, Radiology Medication Routing (Non-IR) 1230 (Given - Provider: Corin Bennett, RT) levothyroxine (Levoxyl) tab 88 mcg 88 mcg, Oral, [id number], First dose (after last modification) on Sat06/09/24 at 0630, Until Discontinued 0553 (Given - Provider: Starla Pierson LPN) 0727 (Given - Provider: Starla Pierson LPN) 0558 (Given - Provider: Katey Valenzuela RN) methylPREDNISolone sodium succ (SOLU-Medrol) inj 40 mg (COMPLETED) 40 mg, IV Push, ONCE, On Sat06/12/24 at 1430, For 1 dose 1445 (Given - Provider: Jeanie Cardoza, ASH) omeprazole (PriLOSEC) oral susp 40 mg 40 mg, Oral, Daily(AM), First dose (after last modification) on Sat06/09/24 at 0900, Until Discontinued, SHAKE WELL AND REFRIGERATEREFRIGERATE REFRIGERATE 0835 (Given - Provider: Monisha Walker RN) 0904 (Given - Provider: Jeanie Cardoza RN) 0747 (Given - Provider: Katey Thomas, ASH) Polyethylene Glycol 3350 (Miralax) oral powder 17 g 17 g (1 Packet), Oral, Daily(AM), First dose on Sat06/11/24 at 0900, Until Discontinued, Mix in 8 oz of water, juice, soda, coffee, or tea. 0837 (Given - Provider: Monisha Walker RN) 0900 (Not Given - Provider: Jeanie Cardoza RN - Reason: Parameter(s) Not Met - Comment: loose stools x4) 0900 (Not Given - Provider: Katey Thomas RN - Reason: Refused-Notify Provider - Comment: Deanna Mandel MD notified) potassium phosphate 30 mmol in NSS 250 mL (K phos) ivpb (COMPLETED) 30 mmol, Peripheral IV, ONCE, 1 dose, On Sat06/11/24 at 0815 1043 (New Bag - Provider: Monisha Walker RN - Comment: limited vascular access, discussed with pharmacist)1142 (Paused - Provider: Monisha Walker RN)1149 (Restarted - Provider: Monisha Walker RN)1300 (Paused - Provider: Monisha Walker RN)1308 (Restarted - Provider: Monisha Walker, RN)1513 (Paused - Provider: Monisha Walker RN)1522 (Restarted - Provider: Monisha Walker RN)1608 (Stopped - Provider: Monisha Walker RN) potassium phosphate 30 mmol in NSS 250 mL (K phos) ivpb (COMPLETED) 30 mmol, Peripheral IV, ONCE, 1 dose, On Sat06/12/24 at 0830 0908 (New Bag - Provider: Jeanie Cardoza RN) predniSONE (Deltasone) tab 40 mg 40 mg, Oral, Daily(AM), First dose on Sat06/10/24 at 0900, Until Discontinued 0837 (Given - Provider: Monisha Walker RN) 0858 (Given - Provider: Jeanie Cardoza, ASH) 0747 (Given - Provider: Katey Thomas, ASH) senna (Senokot) 1 Tablet 1 Tablet, Oral, Daily(AM), First dose on Sat06/11/24 at 0900, Until Discontinued 0837 (Given - Provider: Monisha Walker RN) 0900 (Not Given - Provider: Jeanie Cardoza RN - Reason: Parameter(s) Not Met - Comment: loose stools x5) 0900 (Not Given - Provider: Katey Thomas RN - Reason: Refused-Notify Provider - Comment: Deanna Mandel MD notified) sodium chloride 0.9 % flush peripheral matilda 3 mL 3 mL, IV Push, Q8H, First dose on Sat06/06/24 at 2200, Until Discontinued, Do not flush if lock, PICC, or central line not in place; IV infusing or unable to flush. 0600 (Not Given - Provider: Starla Piesron LPN - Reason: Parameter(s) Not Met - Comment: IV infusing.)1316 (Not Given - Provider: Monisha Walker RN - Reason: Other- Please add reason in Comments - Comment: Meds infusing)2200 (Given - Provider: Starla Pierson LPN) 0600 (Not Given - Provider: Jeanie Cardoza RN - Reason: Parameter(s) Not Met)1400 (Given - Provider: Jeanie Cardoza RN)2059 (Given - Provider: Katey Valenzuela RN) 0558 (Given - Provider: Katey Valenzuela RN)1400 (Given - Provider: Katey Thomas RN) Vancomycin (Vancocin) 1,250 mg in NSS 250 mL ivpb (CANCELED) 1,250 mg, IV Piggyback, Q8HNOW, First dose on Sat06/09/24 at 1400, Until Discontinued 0015 (Paused - Provider: Starla Pierson LPN)0553 (New Bag - Provider: Starla Pierson LPN)0553 (Paused - Provider: Starla Pierson LPN)0554 (Restarted - Provider: Starla Pierson LPN)0558 (Paused - Provider: Starla Pierson LPN)0558 (Restarted - Provider: Starla Pierson LPN)0632 (Rate Verify - Provider: Starla Pierson LPN)0735 (Stopped - Provider: Monisha Walker RN) PRN Medication Order 06/11/2024 06/12/2024 06/13/2024 HYDROmorphone (Dilaudid) tab 2 mg 2 mg, Oral, Q4H PRN Pain, Moderate, Starting on Sat06/08/24 at 1846, Until 06/13/24 at 1923 0844 (Given - Provider: Monisha Walker RN)1747 (Given - Provider: Monisha Walker RN) 0202 (Given - Provider: Starla Pierson LPN) HYDROmorphone (Dilaudid) tab 4 mg 4 mg, Oral, Q4H PRN Pain, Severe, Starting on Sat06/08/24 at 1846, Until 06/13/24 at 1923 1216 (Given - Provider: Jeanie Cardoza RN) sodium chloride 0.9 % flush/inj 3 mL 3 mL, IV Push, PRN Other, Line Patency, Starting on Sat06/02/24 at 2000, Until 06/13/24 at 1923, Do not flush if lock, PICC, or central line not in place, IV infusing or unable to flush documented in this encounter Additional Health Concerns Infection Onset Date Last Indicated Resolved Time Respiratory Rule-Out 06/04/2024 06/04/2024 024 12:22 PM EST COVID-19 Rule-Out 06/04/2024 06/04/2024 06/04/2024 12:22 PM EST Respiratory Rule-Out 06/08/2024 06/08/2024 024 11:23 PM EST COVID-19 Rule-Out 06/08/2024 06/08/2024 06/08/2024 11:23 PM EST documented as of this encounter Advance Directives * [...] Advance Directives occurred with: Patient Care Teams Consultative Sales Associate Relationship Specialty Start Date End Date Payal Myers MD [address] [place] [address] PCP - General Family Medicine 01/21/24 documented as of this encounter
--- OUTSIDE RECORDS SUMMARY | 2024-07-05 06:43 | External Medical Summary ---
Author Name Unknown Address Unknown Organization [id number]:[facility] [address] [place] [address] Laboratory Report Ordering Provider Test Date Status PATRICIA ALBERTO 06/12/2024 05:03:00 Final Observation Date Value Abnormality Reference (Units ) Status Ferritin 06/12/2024 05:03:00 5773 Above high normal 13 -150 (ng/mL) Final Performing Location [facility] - [address] [place] [address]
--- OUTSIDE RECORDS SUMMARY | 2024-07-05 06:43 | External Medical Summary ---
Author Name Unknown Address Unknown Organization [id number]:[facility] [place] [facility] [address] [place] [address] Laboratory Report Ordering Provider Test Date Status MICHAEL BARBA 06/10/2024 04:01:00 Final Observation Date Value Abnormality Reference (Units ) Status WBC, Total 06/10/2024 04:01:00 10.12 4.00-10.80 (K/uL) Final RBC 06/10/2024 04:01:00 3.39 3.85-5.15 (M/uL) Final Hemoglobin 06/10/2024 04:01:00 9.1 Below low normal 12.0-15.3 (g/dL) Final HCT 06/10/2024 04:01:00 28.8 Below low normal 36.0-45.2 (%) Final MCV 06/10/2024 04:01:00 85.0 81.5-97.5 (fL) Final MCH 06/10/2024 04:01:00 26.8 27.0-34.0 (pg) Final MCHC 06/10/2024 04:01:00 31.6 32.0-36.0 (g/dL) Final RDW 06/10/2024 04:01:00 20.0 11.5-15.5 (%) Final Platelets 06/10/2024 04:01:00 305 140-400 (K/uL) Final MPV 06/10/2024 04:01:00 8.8 6.6-11.1 (fL) Final Nucleated erythrocytes/100 leukocytes [Ratio] in Blood by Automated count 06/10/2024 04:01:00 0 <=0 (/100 WBCs) Final Performing Location [facility] [place] - [address] [place] [address]
--- OUTSIDE RECORDS SUMMARY | 2024-07-05 06:43 | External Medical Summary ---
Author Name Unknown Address Unknown Organization [id number]:[facility]ATORY [facility] [place] - [address] [facility] [address] Laboratory Report Ordering Provider Test Date Status PATRICIA ALBERTO 06/13/2024 03:40:00 Final Observation Date Value Abnormality Reference (Units ) Status BUN 06/13/2024 03:40:00 7 6-20 (mg/dL) Final Creatinine 06/13/2024 03:40:00 0.3 Below low normal 0.5-1.0 (mg/dL) Final Glomerular filtration rate/1.73 sq M.predicted [Volume Rate/Area] in Serum, Plasma or Blood by Creatinine-based formula (CKD-EPI) 06/13/2024 03:40:00 >90 >=60 (mL/min) Final eGFR is calculated based on the CKD-EPI 2020 equation. Sodium 06/13/2024 03:40:00 139 135-146 (m mol/L) Final Potassium 06/13/2024 03:40:00 4.3 3.5-5.1 (m mol/L) Final Cl 06/13/2024 03:40:00 101 98-107 (mm ol/L) Final CO2 06/13/2024 03:40:00 27 22-32 (mmo l/L) Final Anion gap 06/13/2024 03:40:00 11 7-15 (mmol /L) Final Glucose 06/13/2024 03:40:00 93 70-120 (mg /dL) Final Albumin 06/13/2024 03:40:00 2.4 Below low normal 3.8 -5.0 (g/dL) Final AST (Aspartate aminotransferase) 06/13/2024 03:40:00 75 Above high normal 10-35 (U/L) Final Alk Phos 06/13/2024 03:40:00 72 35-130 (U/ L) Final Bilirubin, Total 06/13/2024 03:40:00 0.2 <=1 .2 (mg/dL) Final Calcium 06/13/2024 03:40:00 7.7 Below low normal 8.4 -10.2 (mg/dL) Final Protein 06/13/2024 03:40:00 5.1 Below low normal 6.0 -8.3 (g/dL) Final ALT (Alanine aminotransferase) 06/13/2024 03:40:00 27 10-35 (U/L) Colin terry Performing Location LABORATORY [facility] [place] - [address] [facility] [address]
--- OUTSIDE RECORDS SUMMARY | 2024-07-05 06:43 | External Medical Summary ---
Author Name Unknown Address Unknown Organization [id number]:[facility] - [address] [place] [address] Laboratory Report Ordering Provider Test Date Status JOSE JUAREZ 06/12/2024 05:03:00 Final Observation Date Value Abnormality Reference (Units ) Status Magnesium 06/12/2024 05:03:00 2.0 1.5-2.6 (m g/dL) Final Performing Location [facility] - [address] [place] [address]
--- OUTSIDE RECORDS SUMMARY | 2024-07-05 06:43 | External Medical Summary ---
Author Name Unknown Address Unknown Organization [id number]:[facility] [place] - [address] [facility] [address] [facility] [address] Laboratory Report Ordering Provider Test Date Status MIGEL BEAN 06/10/2024 23:54:00 Final Observation Date Value Abnormality Reference (Units ) Status Calcium.ionized [Moles/volume] in Serum or Plasma by Ion-selective membrane electrode (ISE) 06/10/2024 23:54:00 1.08 Below low normal 1.13-1.32 (mmol/L) Final This test was developed and its performance characteristics dtermined by [employer]. It has not been cleared or approved by the [place] Food and Drug Administration Performing Location LABORATORY [facility] [place] - [facility] [address] [facility] [address]
--- OUTSIDE RECORDS SUMMARY | 2024-07-05 06:43 | External Medical Summary ---
Author Name Unknown Address Unknown Organization [id number]:LABORATORY [facility] [place] - [facility] [address] [facility] [address] Laboratory Report Ordering Provider Test Date Status MICHAEL BARBA 06/12/2024 05:03:00 Final Observation Date Value Abnormality Reference (Units ) Status WBC, Total 06/12/2024 05:03:00 14.60 Above high normal 4.00-10.80 (K/uL) Final RBC 06/12/2024 05:03:00 3.27 3.85-5.15 (M/uL) Final Hemoglobin 06/12/2024 05:03:00 8.7 Below low normal 12.0-15.3 (g/dL) Final HCT 06/12/2024 05:03:00 28.0 Below low normal 36.0-45.2 (%) Final MCV 06/12/2024 05:03:00 85.6 81.5-97.5 (fL) Final MCH 06/12/2024 05:03:00 26.6 27.0-34.0 (pg) Final MCHC 06/12/2024 05:03:00 31.1 32.0-36.0 (g/dL) Final RDW 06/12/2024 05:03:00 20.0 11.5-15.5 (%) Final Platelets 06/12/2024 05:03:00 353 140-400 (K/uL) Final MPV 06/12/2024 05:03:00 9.2 6.6-11.1 (fL) Final Nucleated erythrocytes/100 leukocytes [Ratio] in Blood by Automated count 06/12/2024 05:03:00 0 <=0 (/100 WBCs) Final Performing Location LABORATORY [facility] [place] - [facility] [place] [address]
--- OUTSIDE RECORDS SUMMARY | 2024-07-05 06:43 | External Medical Summary ---
Author Name Unknown Address Unknown Organization [id number]:[facility] [place] [address] [facility] [address] Laboratory Report Ordering Provider Test Date Status PATRICIA ALBERTO 06/11/2024 04:35:00 Final Observation Date Value Abnormality Reference (Units ) Status BUN 06/11/2024 04:35:00 6 6-20 (mg/dL) Final Creatinine 06/11/2024 04:35:00 0.3 Below low normal 0.5-1.0 (mg/dL) Final Glomerular filtration rate/1.73 sq M.predicted [Volume Rate/Area] in Serum, Plasma or Blood by Creatinine-based formula (CKD-EPI) 06/11/2024 04:35:00 >90 >=60 (mL/min) Final eGFR is calculated based on the CKD-EPI 2020 equation. Sodium 06/11/2024 04:35:00 136 135-146 (m mol/L) Final Potassium 06/11/2024 04:35:00 4.1 3.5-5.1 (m mol/L) Final Cl 06/11/2024 04:35:00 104 98-107 (mm ol/L) Final CO2 06/11/2024 04:35:00 23 22-32 (mmo l/L) Final Anion gap 06/11/2024 04:35:00 9 7-15 (mmol /L) Final Glucose 06/11/2024 04:35:00 77 70-120 (mg /dL) Final Albumin 06/11/2024 04:35:00 2.4 Below low normal 3.8 -5.0 (g/dL) Final AST (Aspartate aminotransferase) 06/11/2024 04:35:00 92 Above high normal 10-35 (U/L) Final Alk Phos 06/11/2024 04:35:00 66 35-130 (U/ L) Final Bilirubin, Total 06/11/2024 04:35:00 0.3 <=1 .2 (mg/dL) Final Calcium 06/11/2024 04:35:00 7.1 Below low normal 8.4 -10.2 (mg/dL) Final Protein 06/11/2024 04:35:00 5.0 Below low normal 6.0 -8.3 (g/dL) Final ALT (Alanine aminotransferase) 06/11/2024 04:35:00 33 10-35 (U/L) Colin terry Performing Location [facility] [place] [address] [facility] [address]
--- OUTSIDE RECORDS SUMMARY | 2024-07-05 06:43 | External Medical Summary ---
Author Name Unknown Address Unknown Organization K01:[facility] - [address] [place] [address] Laboratory Report Ordering Provider Test Date Status REMYPATRICIA 06/12/2024 05:03:00 Final Observation Date Value Abnormality Reference (Units ) Status Triglyceride 06/12/2024 05:03:00 260 Above high normal <=174 (mg/dL) Final Triglyceride Reference Range s (mg/dL):
<150 Acceptable
150-174 Borderline high
175-499 High
>=500 Very high Performing Location [facility] - [address] [place] [address]
--- OUTSIDE RECORDS SUMMARY | 2024-07-05 06:43 | External Medical Summary ---
Author Name Unknown Address Unknown Organization [id number]:[facility]ATORY [facility] [place] - [address] [facility] [address] Laboratory Report Ordering Provider Test Date Status PATRICIA ALBERTO 06/12/2024 05:03:00 Final Observation Date Value Abnormality Reference (Units ) Status BUN 06/12/2024 05:03:00 6 6-20 (mg/dL) Final Creatinine 06/12/2024 05:03:00 0.3 Below low normal 0.5-1.0 (mg/dL) Final Glomerular filtration rate/1.73 sq M.predicted [Volume Rate/Area] in Serum, Plasma or Blood by Creatinine-based formula (CKD-EPI) 06/12/2024 05:03:00 >90 >=60 (mL/min) Final eGFR is calculated based on the CKD-EPI 2020 equation. Sodium 06/12/2024 05:03:00 134 Below low normal 135 -146 (mmol/L) Final Potassium 06/12/2024 05:03:00 3.9 3.5-5.1 (m mol/L) Final Cl 06/12/2024 05:03:00 101 98-107 (mm ol/L) Final CO2 06/12/2024 05:03:00 24 22-32 (mmo l/L) Final Anion gap 06/12/2024 05:03:00 9 7-15 (mmol /L) Final Glucose 06/12/2024 05:03:00 69 Below low normal 70- 120 (mg/dL) Final Albumin 06/12/2024 05:03:00 2.5 Below low normal 3.8 -5.0 (g/dL) Final AST (Aspartate aminotransferase) 06/12/2024 05:03:00 88 Above high normal 10-35 (U/L) Final Alk Phos 06/12/2024 05:03:00 74 35-130 (U/ L) Final Bilirubin, Total 06/12/2024 05:03:00 0.2 <=1 .2 (mg/dL) Final Calcium 06/12/2024 05:03:00 7.6 Below low normal 8.4 -10.2 (mg/dL) Final Protein 06/12/2024 05:03:00 5.3 Below low normal 6.0 -8.3 (g/dL) Final ALT (Alanine aminotransferase) 06/12/2024 05:03:00 32 10-35 (U/L) Colin terry Performing Location [facility] [place] - [address] [facility] [address]
--- OUTSIDE RECORDS SUMMARY | 2024-07-05 06:43 | External Medical Summary ---
Author Name Unknown Address Unknown Organization [id number]:[facility]ATORY [facility] [place] - [address] [facility] [address] [facility] [address] Laboratory Report Ordering Provider Test Date Status MIGEL BEAN 06/10/2024 15:22:00 Final Observation Date Value Abnormality Reference (Units ) Status Calcium.ionized [Moles/volume] in Serum or Plasma by Ion-selective membrane electrode (ISE) 06/10/2024 15:22:00 1.00 Below low normal 1.13-1.32 (mmol/L) Final This test was developed and its performance characteristics dtermined by [employer]. It has not been cleared or approved by the US Food and Drug Administration Performing Location LABORATORY [place] [address] [facility] [address]
--- OUTSIDE RECORDS SUMMARY | 2024-07-05 06:43 | External Medical Summary ---
Author Name Unknown Address Unknown Organization [id number]:LABORATORY [facility] [place] - [address] [place] [address] Laboratory Report Ordering Provider Test Date Status PATRICIA ALBERTO 06/13/2024 03:40:00 Final Anticoagulation may affect t esting. Refer to [employer] Test Catalog for a list of effects. Observation Date Value Abnormality Reference (Units ) Status aPTT panel - Platelet poor plasma 06/13/2024 03:40:00 76 Above high normal 21-38 (seconds) Final Performing Location LABORATORY [facility] [place] - [address] [place] [address]
--- OUTSIDE RECORDS SUMMARY | 2024-07-05 06:43 | External Medical Summary | Summary of Care ---
Author Name Unknown Organization [facility] Address [address] [facility] [place] [address] Phone [phone] Care Team Providers Care Reeling Machine Setup Operator Name Role Phone Payal Myers MD Primary Care Provider [phone] Encounter Details Date Type Department Care Team (Late st Contact Info) Description 06/05/2024 Result Scan Unspecified Department <No scans attached> Allergies Active Allergy Reactions Criticality Noted Date Comments Sulfasalazine Rash Medium 10/23/2023 documented as of this encounter (statuses as of 06/10/2024) Medications 08/10 1-20 MG-MCG per tablet 1 Tablet in the morning. 7 Suspended FLUoxetine HCl 20 MG Oral Capsule (PROzac)Indicat ions:LUDA (generalized anxiety disorder) Take 1 Capsule by mouth in the morning. 90 Capsule 3 4 Suspended Ferrous Sulfate 325 (65 Fe) MG Oral Tablet Delayed Release Take 1 Tablet by mouth. Every other day. Suspended Topiramate 25 MG Oral Tablet (topAMAX) Take 1 Tablet by mouth every night at bedtime for 7 days, THEN 2 Tablets every night at bedtime for 7 days, THEN 3 Tablets every night at bedtime for 7 days, THEN 4 Tablets every night at bedtime. 90 Tablet 3 4 06/08/20 25 Suspended Naratriptan HCl 2.5 MG Oral Tablet (Amerge) Take 1 Tablet by mouth as needed for Migraine (take 1 tab by mouth at start of headache, may repeat once after 4 hours; may use up to 2 days a week). 10 Tablet 2 4 Suspended Baclofen 5 MG Oral Tablet (Lioresal) Take 1 Tablet by mouth at bedtime as needed for Muscle spasms (for neck and jaw pain). 20 Tablet 3 4 Suspended B-12 500 MCG Oral Tablet Take 2 Tablets by mouth in the morning. 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 (Household - for [...] Description 06/25/2024 11:40 AM EST Office Visit [facility] [address] [facility] [place] [address] Payal Myers MD [address] [facility] [place] [address] 08/19/2024 9:00 AM EST Office Visit Nephrology, [facility] [address] [place] [address] Ant Cardona MD [address] [facility] [place] [address] 08/31/2024 8:20 AM EST Office Visit [facility] [address] [facility] [place] [address] Payal Myers MD [address] [facility] [place] [address] Health Maintenance Due Date Last Done Comments Pneumococcal Vaccine: Pediat rics (0 to 5 Years) and At-Risk Patients (6 to 64 Years) (1 of 2 - PCV) 2003 COVID-19 Vaccine (3 - Modern a risk series) 01/01/2021 12/04/2020, 11/06/2020 Depression Screening 02/27/2025 02/28/2024 TSH 06/01/2025 06/01/2024 Pap Smear 06/25/2025 06/25/2022, 02/11/2019 DTap/Tdap Vaccines (8 - Td o r Tdap) 01/12/2031 01/12/2021, 01/30/2010, 09/25/2001, Additional history exists Hepatitis B Vaccine Completed 1997, 1997, 1997 HPV (Gardasil) Vaccine Completed 0, 05/13/2009, 02/28/2009 MENINGOCOCCAL (MENACTRA/MENVEO) Completed 4, 01/30/2010 Gonorrhea / Chlamydia Screen Discontinued 09/10/2023, 11/17/2016 Influenza Vaccine (FLU shot) Completed 10/2023, 05/02/2020, 05/02/2020, Additional history exists documented as of this encounter [employer] Not on filedocumented as of this encounter Procedures Procedure Name Priority Date/Time Associated Diagnosis Comments OUTSIDE LAB RESULTS 06/05/2024 documented in this encounter Results * OUTSIDE LAB RESULTS (06/05/2024) 06/05/2024 us No Physician Data Unknown LABORATORY Final Result documented in this encounter Additional Health Concerns Infection Onset Date Last Indicated Resolved Time Respiratory Rule-Out 06/08/2024 06/08/2024 024 11:23 PM EST COVID-19 Rule-Out 06/08/2024 06/08/2024 06/08/2024 11:23 PM EST documented as of this encounter Advance Directives * Full Code (Latest Code Status on File) Date Activated Date Inactivated Comments 06/06/2024 9:25 PM This order re flects the patients wishes and were consensually agreed upon. Question Answer Comments Discussion of Advance Directives occurred with: Patient * Full Code Date Activated Date Inactivated Comments 06/02/2024 8:01 PM 06/06/2024 9:25 PM This order reflects the patients wishes and were consensually agreed upon. Question Answer Comments Discussion of Advance Directives occurred with: Patient Care Teams Reeling Machine Setup Operator Relationship Specialty Start Date End Date Payal Myers MD [address] [facility] [place], [place] [address] PCP - General Family Medicine 01/21/24 documented as of this encounter
--- OUTSIDE RECORDS SUMMARY | 2024-07-05 06:43 | External Medical Summary ---
Author Name Unknown Address Unknown Organization K01:LABORATORY [facility] - [address] [place] [address] Laboratory Report Ordering Provider Test Date Status PATRICIA ALBERTO 06/11/2024 04:35:00 Final Observation Date Value Abnormality Reference (Units ) Status Ferritin 06/11/2024 04:35:00 5686 Above high normal 13 -150 (ng/mL) Final Performing Location [facility] - [address] [place] [address]
--- OUTSIDE RECORDS SUMMARY | 2024-07-05 06:43 | External Medical Summary ---
Author Name Unknown Address Unknown Organization K01:[facility] - [address] [place] [address] Laboratory Report Ordering Provider Test Date Status JOSE JUAREZ 06/12/2024 05:03:00 Final Observation Date Value Abnormality Reference (Units ) Status Phosphate 06/12/2024 05:03:00 1.8 Below low normal 2.5 -4.8 (mg/dL) Final Performing Location [facility] - [address] [place] [address]
--- OUTSIDE RECORDS SUMMARY | 2024-07-05 06:43 | External Medical Summary ---
Author Name Unknown Address Unknown Organization K01:[facility] [place] [address] [facility] [place]. [facility] [address] Laboratory Report Ordering Provider Test Date Status AMY RAE 06/11/2024 22:45:00 Final Observation Date Value Abnormality Reference (Units ) Status Calcium.ionized [Moles/volume] in Serum or Plasma by Ion-selective membrane electrode (ISE) 06/11/2024 22:45:00 1.12 Below low normal 1.13-1.32 (mmol/L) Final This test was developed and its performance characteristics dtermined by [employer]. It has not been cleared or approved by the US Food and Drug Administration Performing Location [facility] [place] [address] [place] [address]
--- OUTSIDE RECORDS SUMMARY | 2024-07-05 06:43 | External Medical Summary ---
Author Name Unknown Address Unknown Organization K01:[facility]AT[facility] - [address] [place] [address] Laboratory Report Ordering Provider Test Date Status PATRICIA ALBERTO 06/12/2024 05:03:00 Final Observation Date Value Abnormality Reference (Units ) Status LDH 06/12/2024 05:03:00 600 Above high normal <= 250 (U/L) Final Performing Location [facility] - [address] [place] [address]
--- OUTSIDE RECORDS SUMMARY | 2024-07-05 06:43 | External Medical Summary ---
Author Name Unknown Address Unknown Organization K01:[facility]ORY [place] [address] [address] [facility] [address] Laboratory Report Ordering Provider Test Date Status MICHAEL BARBA 06/13/2024 03:40:00 Final Observation Date Value Abnormality Reference (Units ) Status WBC, Total 06/13/2024 03:40:00 12.30 Above high normal 4.00-10.80 (K/uL) Final RBC 06/13/2024 03:40:00 3.14 3.85-5.15 (M/uL) Final Hemoglobin 06/13/2024 03:40:00 8.6 Below low normal 12.0-15.3 (g/dL) Final HCT 06/13/2024 03:40:00 26.9 Below low normal 36.0-45.2 (%) Final MCV 06/13/2024 03:40:00 85.7 81.5-97.5 (fL) Final MCH 06/13/2024 03:40:00 27.4 27.0-34.0 (pg) Final MCHC 06/13/2024 03:40:00 32.0 32.0-36.0 (g/dL) Final RDW 06/13/2024 03:40:00 19.6 11.5-15.5 (%) Final Platelets 06/13/2024 03:40:00 274 140-400 (K/uL) Final MPV 06/13/2024 03:40:00 8.5 6.6-11.1 (fL) Final Nucleated erythrocytes/100 leukocytes [Ratio] in Blood by Automated count 06/13/2024 03:40:00 0 <=0 (/100 WBCs) Final Performing Location LAB[facility]ATORY [facility] [place] - [facility] [place] [address]
--- OUTSIDE RECORDS SUMMARY | 2024-07-05 06:43 | External Medical Summary ---
Author Name Unknown Address Unknown Organization K01:[facility] - [address] [place] [address] Laboratory Report Ordering Provider Test Date Status PATRICIA ALBERTO 06/13/2024 03:40:00 Final Observation Date Value Abnormality Reference (Units ) Status Ferritin 06/13/2024 03:40:00 5506 Above high normal 13 -150 (ng/mL) Final Performing Location [facility] - [address] [place] [address]
--- OUTSIDE RECORDS SUMMARY | 2024-07-05 06:43 | External Medical Summary ---
Author Name Unknown Address Unknown Organization K01:LAB[facility]ATORY [facility] - [address] [place] [address] Laboratory Report Ordering Provider Test Date Status REMYPATRICIA 06/13/2024 03:40:00 Final Observation Date Value Abnormality Reference (Units ) Status Triglyceride 06/13/2024 03:40:00 251 Above high normal <=174 (mg/dL) Final Triglyceride Reference Range s (mg/dL):
<150 Acceptable
150-174 Borderline high
175-499 High
>=500 Very high Performing Location LABORATORY [facility] - [address] [place] [address]
--- OUTSIDE RECORDS SUMMARY | 2024-07-05 06:43 | External Medical Summary ---
Author Name Unknown Address Unknown Organization K01:[facility] - [address] [place] [place] [address] Laboratory Report Ordering Provider Test Date Status MICHAEL BARBA 06/11/2024 04:35:00 Final Observation Date Value Abnormality Reference (Units ) Status SYNC LEUKOCYTES IN BLOOD BY AUTOMATED COUNT 06/11/2024 04:35:00 13.05 Above high normal 4.00-10.80 (K/uL) Final Neutrophils/100 leukocytes in Blood by Manual count 06/11/2024 04:35:00 99.0 Above high normal 40.0-75.0 (%) Final Lymphocytes/100 leukocytes in Blood by Manual count 06/11/2024 04:35:00 1.0 Below low normal 18.0-42.0 (%) Final Neutrophils [#/volume] in Blood by Manual count 06/11/2024 04:35:00 12.92 Above high normal 1.80-7.70 (K/uL) Final Lymphocytes [#/volume] in Blood by Manual count 06/11/2024 04:35:00 0.13 Below low normal 1.00-4.80 (K/uL) Final Performing Location [facility] - [address] [place] [address]
--- OUTSIDE RECORDS SUMMARY | 2024-07-05 06:43 | External Medical Summary ---
Author Name Unknown Address Unknown Organization K01:[facility] - [address] [place] [address] Laboratory Report Ordering Provider Test Date Status PATRICIA ALBERTO 06/11/2024 04:35:00 Final Observation Date Value Abnormality Reference (Units ) Status LDH 06/11/2024 04:35:00 613 Above high normal <= 250 (U/L) Final Performing Location LAB[facility] - [address] [place] [address]
--- OUTSIDE RECORDS SUMMARY | 2024-07-05 06:43 | External Medical Summary ---
Author Name Unknown Address Unknown Organization K01:LABORATORY [facility] [place] - [address] [place] [address] Laboratory Report Ordering Provider Test Date Status PATRICIA ALBERTO 06/11/2024 04:35:00 Final Warfarin Therapy
INR: 2 .0-3.0 conventional anticoagulation
INR: 2.5- 3.5 high intensity anticoagulation Observation Date Value Abnormality Reference (Units ) Status PT 06/11/2024 04:35:00 18.4 Above high normal 11 .6-15.2 (seconds) Final INR 06/11/2024 04:35:00 1.5 Above high normal 0. 8-1.2 Final Performing Location LABORATORY [facility] [place] - [address] [place] [address]
--- OUTSIDE RECORDS SUMMARY | 2024-07-05 06:43 | External Medical Summary | Summary of Care ---
Author Name Unknown Organization [facility] Address [address] [place] [address] Phone [phone] Care Team Providers Care Plumbing Engineer Name Role Phone Payal Myers MD Primary Care Provider [phone] Reason for Visit * Reason Onset Date Comments Encounter Created in Error 06/06/2024 Encounter Details Date Type Department Care Team (Late st Contact Info) Description 06/06/2024 Telephone [facility] [place] [address], [place] [phone] Polly Mojica MD [address] [place], [place] [phone] Encounter Created in Error Allergies Active Allergy Reactions Criticality Noted Date Comments Sulfasalazine Rash Medium 10/23/2023 documented as of this encounter (statuses as of 06/11/2024) Medications 08/10 1-20 MG-MCG per tablet 1 [...] as of this encounter (statuses as of 06/11/2024) Active Problems Problem Noted Date Diagnosed Date [...] as of this encounter (statuses as of 06/11/2024) Immunizations Name Administration Dates Next Due COVID-19 [...] No 02/28/2024 Does the household have a [facility] source of income? (Household - for ages [...] Description 06/25/2024 11:40 AM EST Office Visit [facility] [address] [place] [address] Payal Myers MD [address] [place] [address] 08/19/2024 9:00 AM EST Office Visit Nephrology, [facility] [address] [place] [address] Ant Cardona MD [address] [place] [address] 08/31/2024 8:20 AM EST Office Visit [facility] [address] [place] [address] Payal Myers MD [address] [place] [address] Health Maintenance Due Date Last Done Comments [...] Not on filedocumented as of this encounter Additional Health Concerns Infection Onset [...] Advance Directives occurred with: Patient Care Teams Plumbing Engineer Relationship Specialty Start Date End Date Payal Myers MD [address] [facility] [place] [address] PCP - General Family Medicine 01/21/24 documented as of this encounter
--- OUTSIDE RECORDS SUMMARY | 2024-07-05 06:43 | External Medical Summary ---
Author Name Unknown Address Unknown Organization K01:[facility]ATORY [facility] [place] - [address] [facility] [address] [facility] [address] Laboratory Report Ordering Provider Test Date Status MIGEL BEAN 06/11/2024 09:01:00 Final Observation Date Value Abnormality Reference (Units ) Status Calcium.ionized [Moles/volume] in Serum or Plasma by Ion-selective membrane electrode (ISE) 06/11/2024 09:01:00 1.08 Below low normal 1.13-1.32 (mmol/L) Final This test was developed and its performance characteristics dtermined by [employer]. It has not been cleared or approved by the [place] Food and Drug Administration Performing Location [facility]ORY [facility] [place] - [address] [facility] [address]
--- OUTSIDE RECORDS SUMMARY | 2024-07-05 06:43 | External Medical Summary ---
Author Name Unknown Address Unknown Organization K01:[facility] - [address] [place] [address] Laboratory Report Ordering Provider Test Date Status JOSE JUAREZ 06/11/2024 04:35:00 Final Observation Date Value Abnormality Reference (Units ) Status Phosphate 06/11/2024 04:35:00 1.7 Below low normal 2.5 -4.8 (mg/dL) Final Performing Location LAB[facility] - [address] [place] [address]
--- OUTSIDE RECORDS SUMMARY | 2024-07-05 06:43 | External Medical Summary ---
Author Name Unknown Address Unknown Organization K01:[facility] [place] [address] [facility] [address]. [facility] [address] Laboratory Report Ordering Provider Test Date Status MIGEL BEAN 06/10/2024 08:58:00 Final Observation Date Value Abnormality Reference (Units ) Status Calcium.ionized [Moles/volume] in Serum or Plasma by Ion-selective membrane electrode (ISE) 06/10/2024 08:58:00 1.05 Below low normal 1.13-1.32 (mmol/L) Final This test was developed and its performance characteristics dtermined by [employer]. It has not been cleared or approved by the US Food and Drug Administration Performing Location [facility] [place] [address] [facility] [address]
--- OUTSIDE RECORDS SUMMARY | 2024-07-05 06:43 | External Medical Summary | Summary of Care ---
Author Name Unknown Organization [facility] Address [address] [place] [address] Phone [phone] Care Team Providers Care Die Try Out Worker Name Role Phone Payal Myers MD Primary Care Provider [phone] Reason for Visit * Reason Onset Date Comments Medication Problem 06/13/2024 Encounter Details Date Type Department Care Team (Late st Contact Info) Description 06/13/2024 Telephone [facility] [address] [place] [address] Deanna Mandel DO [address] [facility] [place] [address] Medication Problem Allergies Active Allergy Reactions Criticality Noted Date Comments Sulfasalazine Rash Medium 10/23/2023 documented as of this encounter (statuses as of 06/13/2024) Medications 08/10 1-20 MG-MCG per tablet 1 [...] 2 days a week). 10 Tablet 2 10/28/20 24 Active B-12 500 MCG Oral Tablet Take [...] 17 Tablet 06/13/2024 2:46 PM EST 06/14/20 Active Ergocalciferol 1.25 MG (940[address] UT) Oral Capsule (Vitamin D2(Drisdol)) Take 1 [...] 30 Capsule 06/13/2024 2:46 PM EST 06/13/20 Active Sennosides 8.6 [...] weeks. 20 g 06/13/2024 2:46 PM EST 11/23/20 24 Active Calcium Citrate 333 MG Oral Tablet Take 2 Tablets by mouth in the morning and 2 Tablets at noon and 2 Tablets in the evening. 120 Tablet 06/13/20 24 Active Calcium Citrate 333 MG Oral Tablet Take 2 Tablets by mouth in the morning and 2 Tablets at noon and 2 Tablets in the evening. 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 Iron deficiency 02/28/2024 LUDA (generalized anxiety disorder) 10/09/2023 Seronegative inflammatory arthritis 10/09/2023 documented as of this encounter (statuses as of 06/13/2024) Resolved Problems Problem Noted Date Diagnosed Date Resolved Date Ileus 06/08/2024 06/13/2024 Chest pain, non-cardiac 06/04/202405/23 Idiopathic acute pancreatitis 06/04/2024 06/13/2024 Gallstone pancreatitis 06/02/202406/13 documented as of this encounter (statuses as of 06/13/2024) Immunizations Name Administration Dates Next Due COVID-19 [...] Elaine Hatch RN documented in this encounter Miscellaneous Notes * Telephone Encounter - Deanna Mandel DO - 06/13/2024 5:23 PM EST Patient discharged today with bedside rx. Upon arriving home, realized that she did not receive hercalcium citrate. New script sent to [facility] in [place]. She will picker feeder in the AM on 06/14. documented in this encounter Plan of Treatment Upcoming Encounters Date Type Department Care Team (Late st Contact Info) Description 06/25/2024 11:40 AM EST Office Visit [facility] [address] [place] [address] Payal Myers MD [address] [place] [address] 08/19/2024 9:00 AM EST Office Visit Nephrology, [facility] [address] [place] [address] Ant Cardona MD [address] [place] [address] 08/31/2024 8:20 AM EST Office Visit [facility] [address] [place] [address] Payal Myers MD [address] [place] [address] Health Maintenance Due Date Last Done Comments [...] Advance Directives occurred with: Patient Care Teams Die Try Out Worker Relationship Specialty Start Date End Date Payal Myers MD [address] [facility] [place] [address] PCP - General Family Medicine 01/21/24 documented as of this encounter
--- OUTSIDE RECORDS SUMMARY | 2024-07-05 06:43 | External Medical Summary ---
Author Name Unknown Address Unknown Organization K01:[facility]ORY [facility] [place] [address] [facility] [address] Laboratory Report Ordering Provider Test Date Status MICHAEL BARBA 06/13/2024 03:40:00 Final Observation Date Value Abnormality Reference (Units ) Status SYNC LEUKOCYTES IN BLOOD BY AUTOMATED COUNT 06/13/2024 03:40:00 12.30 Above high normal 4.00-10.80 (K/uL) Final Segs 06/13/2024 03:40:00 91.8 Above high normal 40.0-75.0 (%) Final Lymphs % 06/13/2024 03:40:00 4.4 Below low normal 18.0-42.0 (%) Final Monos 06/13/2024 03:40:00 2.1 1.0-11.0 (%) Final Eosinophils 06/13/2024 03:40:00 0.0 0.0-6.0 (%) Final Basos 06/13/2024 03:40:00 0.1 0.0-2.0 (%) Final Immature Granulocyte, Percent 06/13/2024 03:40:00 1.6 0.0-2.0 (%) Final Absolute Segs 06/13/2024 03:40:00 11.29 Above high normal 1.80-7.70 (K/uL) Final Lymphs, absolute 06/13/2024 03:40:00 0.54 Below low normal 1.00-4.80 (K/ul) Final Monos, Abs 06/13/2024 03:40:00 0.26 0.00-1.10 (K/uL) Final Eos, Abs 06/13/2024 03:40:00 0.00 0.00-0.70 (K/uL) Final Basos, Abs 06/13/2024 03:40:00 0.01 0.00-0.20 (K/uL) Final Immature Granulocytes, Number 06/13/2024 03:40:00 0.20 0.00-0.20 (K/uL) Final Performing Location [facility]ORY [facility] [place] [facility] [place] [address] [place] [address]
--- OUTSIDE RECORDS SUMMARY | 2024-07-05 06:43 | External Medical Summary ---
Author Name Unknown Address Unknown Organization K01:[place] [place] [address] [place] [address] Laboratory Report Ordering Provider Test Date Status AMY RAE 06/10/2024 15:17:33 Final Observation Date Value Abnormality Reference (Units ) Status Methicillin resistant Staphylococcus aureus (MRSA) DNA [Presence] in Nose by TRE with probe detection 06/10/2024 15:17:33 Negative Negative Final No Methicillin resistant Sta phylococcus aureus detected by PCR (amplified probe). Performing Location [facility] [place] [address] [place] [address]
--- OUTSIDE RECORDS SUMMARY | 2024-07-05 06:43 | External Medical Summary ---
Author Name Unknown Address Unknown Organization K01:[facility]ATORY [facility] - [address] [place] [address] Laboratory Report Ordering Provider Test Date Status JOSE JUAREZ 06/13/2024 03:40:00 Final Observation Date Value Abnormality Reference (Units ) Status Phosphate 06/13/2024 03:40:00 3.5 2.5-4.8 (m g/dL) Final Performing Location LAB[facility] - [address] [place] [address]
--- OUTSIDE RECORDS SUMMARY | 2024-07-05 06:43 | External Medical Summary ---
Author Name Unknown Address Unknown Organization K01:LABORATORY [facility] [place] - [address] [place] [address] Laboratory Report Ordering Provider Test Date Status PATRICIA ALBERTO 06/10/2024 04:01:00 Final Anticoagulation may affect t esting. Refer to [employer] Test Catalog for a list of effects. Observation Date Value Abnormality Reference (Units ) Status aPTT panel - Platelet poor plasma 06/10/2024 04:01:00 108 Above high normal 21-38 (seconds) Final Performing Location LABORATORY [facility] [place] - [address] [place] [address]
--- OUTSIDE RECORDS SUMMARY | 2024-07-05 06:43 | External Medical Summary ---
Author Name Unknown Address Unknown Organization K01:LABORATORY [place] [address] [address] [facility] [address] Laboratory Report Ordering Provider Test Date Status MICHAEL BARBA 06/11/2024 04:35:00 Final Observation Date Value Abnormality Reference (Units ) Status WBC, Total 06/11/2024 04:35:00 13.05 Above high normal 4.00-10.80 (K/uL) Final RBC 06/11/2024 04:35:00 3.04 3.85-5.15 (M/uL) Final Hemoglobin 06/11/2024 04:35:00 8.2 Below low normal 12.0-15.3 (g/dL) Final HCT 06/11/2024 04:35:00 26.1 Below low normal 36.0-45.2 (%) Final MCV 06/11/2024 04:35:00 85.9 81.5-97.5 (fL) Final MCH 06/11/2024 04:35:00 27.0 27.0-34.0 (pg) Final MCHC 06/11/2024 04:35:00 31.4 32.0-36.0 (g/dL) Final RDW 06/11/2024 04:35:00 20.4 11.5-15.5 (%) Final Platelets 06/11/2024 04:35:00 305 140-400 (K/uL) Final MPV 06/11/2024 04:35:00 8.8 6.6-11.1 (fL) Final Nucleated erythrocytes/100 leukocytes [Ratio] in Blood by Automated count 06/11/2024 04:35:00 0 <=0 (/100 WBCs) Final Performing Location LAB[facility]ORY [facility] [place] - [facility] [place] [address]
--- OUTSIDE RECORDS SUMMARY | 2024-07-05 06:43 | External Medical Summary ---
Author Name Unknown Address Unknown Organization K01:LABORATORY [facility] - [address] [place] [address] Laboratory Report Ordering Provider Test Date Status REMYPATRICIA 06/11/2024 04:35:00 Final Observation Date Value Abnormality Reference (Units ) Status Triglyceride 06/11/2024 04:35:00 217 Above high normal <=174 (mg/dL) Final Triglyceride Reference Range s (mg/dL):
<150 Acceptable
150-174 Borderline high
175-499 High
>=500 Very high Performing Location LABORATORY [facility] - [address] [place] [address]
--- OUTSIDE RECORDS SUMMARY | 2024-07-05 06:43 | External Medical Summary ---
Author Name Unknown Address Unknown Organization : Laboratory Report Ordering Provider Test Date Status MICHAEL BARBA 06/11/2024 04:35:00 Final Observation Date Value Abnormality Reference (Units ) Status Performing Location
--- OUTSIDE RECORDS SUMMARY | 2024-07-05 06:43 | External Medical Summary ---
Author Name Unknown Address Unknown Organization K01:[place] [place] [address] [facility] [address] Laboratory Report Ordering Provider Test Date Status MICHAEL BARBA 06/12/2024 05:03:00 Final Observation Date Value Abnormality Reference (Units ) Status SYNC LEUKOCYTES IN BLOOD BY AUTOMATED COUNT 06/12/2024 05:03:00 14.60 Above high normal 4.00-10.80 (K/uL) Final Segs 06/12/2024 05:03:00 93.1 Above high normal 40.0-75.0 (%) Final Lymphs % 06/12/2024 05:03:00 4.2 Below low normal 18.0-42.0 (%) Final Monos 06/12/2024 05:03:00 1.5 1.0-11.0 (%) Final Eosinophils 06/12/2024 05:03:00 0.0 0.0-6.0 (%) Final Basos 06/12/2024 05:03:00 0.1 0.0-2.0 (%) Final Immature Granulocyte, Percent 06/12/2024 05:03:00 1.1 0.0-2.0 (%) Final Absolute Segs 06/12/2024 05:03:00 13.59 Above high normal 1.80-7.70 (K/uL) Final Lymphs, absolute 06/12/2024 05:03:00 0.62 Below low normal 1.00-4.80 (K/ul) Final Monos, Abs 06/12/2024 05:03:00 0.22 0.00-1.10 (K/uL) Final Eos, Abs 06/12/2024 05:03:00 0.00 0.00-0.70 (K/uL) Final Basos, Abs 06/12/2024 05:03:00 0.01 0.00-0.20 (K/uL) Final Immature Granulocytes, Number 06/12/2024 05:03:00 0.16 0.00-0.20 (K/uL) Final Performing Location [facility] [place] [facility] [address] [place] [address]
--- OUTSIDE RECORDS SUMMARY | 2024-07-05 06:43 | External Medical Summary ---
Author Name Unknown Address Unknown Organization K01:[facility]ORY [facility] - [address] [place] [address] Laboratory Report Ordering Provider Test Date Status JOSE JUAREZ 06/10/2024 04:01:00 Final Observation Date Value Abnormality Reference (Units ) Status Phosphate 06/10/2024 04:01:00 1.7 Below low normal 2.5 -4.8 (mg/dL) Final Performing Location LABORATORY [facility] - [address] [place] [address]
--- OUTSIDE RECORDS SUMMARY | 2024-07-05 06:43 | External Medical Summary ---
Author Name Unknown Address Unknown Organization K01:LABORATORY [facility] - [address] [place] [address] Laboratory Report Ordering Provider Test Date Status REMYPATRICIA 06/10/2024 04:01:00 Final Observation Date Value Abnormality Reference (Units ) Status Triglyceride 06/10/2024 04:01:00 230 Above high normal <=174 (mg/dL) Final Triglyceride Reference Range s (mg/dL):
<150 Acceptable
150-174 Borderline high
175-499 High
>=500 Very high Performing Location LABORATORY [facility] - [address] [place] [address]
--- OUTSIDE RECORDS SUMMARY | 2024-07-05 06:44 | External Medical Summary ---
Author Name Unknown Address Unknown Organization K01:LAB[facility]ATORY [facility] [place] - [address] [facility] [address] Laboratory Report Ordering Provider Test Date Status ANNJOSE 06/08/2024 20:51:00 Final Observation Date Value Abnormality Reference (Units ) Status Calcium.ionized [Moles/volume] in Serum or Plasma by Ion-selective membrane electrode (ISE) 06/08/2024 20:51:00 1.02 Below low normal 1.13-1.32 (mmol/L) Final This test was developed and its performance characteristics dtermined by [employer]. It has not been cleared or approved by the [place] Food and Drug Administration Performing Location LABORATORY [facility] [place] - [address] [place] [address]
--- OUTSIDE RECORDS SUMMARY | 2024-07-05 06:44 | External Medical Summary ---
Author Name Unknown Address Unknown Organization K01:LAB[facility]ATORY [facility] [place] - [address] [facility] [place] [address] Laboratory Report Ordering Provider Test Date Status ANNJOSE 06/08/2024 23:33:00 Final Observation Date Value Abnormality Reference (Units ) Status Calcium.ionized [Moles/volume] in Serum or Plasma by Ion-selective membrane electrode (ISE) 06/08/2024 23:33:00 1.04 Below low normal 1.13-1.32 (mmol/L) Final This test was developed and its performance characteristics dtermined by [employer]oz[employer]. It has not been cleared or approved by the US Food and Drug Administration Performing Location LABORATORY [facility] [place] - [address] [place] [address]
--- OUTSIDE RECORDS SUMMARY | 2024-07-05 06:44 | External Medical Summary ---
Author Name Unknown Address Unknown Organization K01:LABORATORY [place] [address] [facility] [address] Laboratory Report Ordering Provider Test Date Status MIGEL BEAN 06/09/2024 05:01:00 Final Less than 0.5 ng/mL: Low ris k for progression to sepsis. Review patients condition for localized infections.

0.5 to 2.0 ng/mL: Intermediate risk for progresion to sepsis. Review underlying conditions. Recommend repeat PCT after 6 hours has elapsed.

Greater than 2.0 ng/mL: high risk for progression to sepsis unless other causes are known. Observation Date Value Abnormality Reference (Units ) Status Procalcitonin [Mass/volume] in Serum or Plasma by Immunoassay 06/09/2024 05:01:00 0.12 Above high normal <0.10 (ng/mL) Final Performing Location LABORATORY [facility] [place] - [facility] [address] [facility] [address]
--- OUTSIDE RECORDS SUMMARY | 2024-07-05 06:44 | External Medical Summary ---
Author Name Unknown Address Unknown Organization K01:LAB[facility]ATORY [facility] - [address] [place] [address] Laboratory Report Ordering Provider Test Date Status MICHAEL BARBA 06/09/2024 05:01:00 Final Observation Date Value Abnormality Reference (Units ) Status C4 06/09/2024 05:01:00 14 10-40 (mg/ dL) Final Performing Location LAB[facility]ATORY [facility] - [address] [place] [address]
--- OUTSIDE RECORDS SUMMARY | 2024-07-05 06:44 | External Medical Summary ---
Author Name Unknown Address Unknown Organization K01:LABORATORY [facility] [place] - [address] [place] [address] [place] [address] Laboratory Report Ordering Provider Test Date Status MICHAEL BARBA 06/09/2024 05:01:00 Final Observation Date Value Abnormality Reference (Units ) Status WBC, Total 06/09/2024 05:01:00 5.98 4.00-10.80 (K/uL) Final RBC 06/09/2024 05:01:00 3.73 3.85-5.15 (M/uL) Final Hemoglobin 06/09/2024 05:01:00 9.9 Below low normal 12.0-15.3 (g/dL) Final HCT 06/09/2024 05:01:00 32.2 Below low normal 36.0-45.2 (%) Final MCV 06/09/2024 05:01:00 86.3 81.5-97.5 (fL) Final MCH 06/09/2024 05:01:00 26.5 27.0-34.0 (pg) Final MCHC 06/09/2024 05:01:00 30.7 32.0-36.0 (g/dL) Final RDW 06/09/2024 05:01:00 19.9 11.5-15.5 (%) Final Platelets 06/09/2024 05:01:00 323 140-400 (K/uL) Final MPV 06/09/2024 05:01:00 8.7 6.6-11.1 (fL) Final Nucleated erythrocytes/100 leukocytes [Ratio] in Blood by Automated count 06/09/2024 05:01:00 0 <=0 (/100 WBCs) Final Performing Location LABORATORY [facility] [place] - [address] [place] [address]
--- OUTSIDE RECORDS SUMMARY | 2024-07-05 06:44 | External Medical Summary ---
Author Name Unknown Address Unknown Organization K01:LABORATORY [facility] [place] - [address] [place] [address] Laboratory Report Ordering Provider Test Date Status PATRICIA ALBERTO 06/09/2024 07:59:00 Final Warfarin Therapy
INR: 2 .0-3.0 conventional anticoagulation
INR: 2.5- 3.5 high intensity anticoagulation Observation Date Value Abnormality Reference (Units ) Status PT 06/09/2024 07:59:00 19.4 Above high normal 11 .6-15.2 (seconds) Final INR 06/09/2024 07:59:00 1.6 Above high normal 0. 8-1.2 Final Performing Location LABORATORY [facility] [place] - [address] [place] [address]
--- OUTSIDE RECORDS SUMMARY | 2024-07-05 06:44 | External Medical Summary ---
Author Name Unknown Address Unknown Organization K01:[place] [facility] [place] [address] [place] [address] Laboratory Report Ordering Provider Test Date Status PATRICIA ALBERTO 06/10/2024 04:01:00 Final Warfarin Therapy
INR: 2 .0-3.0 conventional anticoagulation
INR: 2.5- 3.5 high intensity anticoagulation Observation Date Value Abnormality Reference (Units ) Status PT 06/10/2024 04:01:00 19.9 Above high normal 11 .6-15.2 (seconds) Final INR 06/10/2024 04:01:00 1.7 Above high normal 0. 8-1.2 Final Performing Location [place] [place] [address] [place] [address]
--- OUTSIDE RECORDS SUMMARY | 2024-07-05 06:44 | External Medical Summary ---
Author Name Unknown Address Unknown Organization K01:LABORATORY [facility] - [address] [place] [address] Laboratory Report Ordering Provider Test Date Status JOSE JUAREZ 06/09/2024 05:01:00 Final Observation Date Value Abnormality Reference (Units ) Status Phosphate 06/09/2024 05:01:00 2.2 Below low normal 2.5 -4.8 (mg/dL) Final Performing Location LAB[facility]ATORY [facility] - [address] [place] [address]
--- OUTSIDE RECORDS SUMMARY | 2024-07-05 06:44 | External Medical Summary ---
Author Name Unknown Address Unknown Organization K01:LABORATORY [facility] - [address] [place] [address] Laboratory Report Ordering Provider Test Date Status PATRICIA ALBERTO 06/09/2024 05:01:00 Final Observation Date Value Abnormality Reference (Units ) Status Triglyceride 06/09/2024 05:01:00 265 Above high normal <=174 (mg/dL) Final Triglyceride Reference Range s (mg/dL):
<150 Acceptable
150-174 Borderline high
175-499 High
>=500 Very high Performing Location LABORATORY [facility] - [address] [place] [address]
--- OUTSIDE RECORDS SUMMARY | 2024-07-05 06:44 | External Medical Summary ---
Author Name Unknown Address Unknown Organization K01:LABORATORY [facility] [place] - [address] [facility] [place] [address] Laboratory Report Ordering Provider Test Date Status PATRICIA ALBERTO 06/10/2024 04:01:00 Final Observation Date Value Abnormality Reference (Units ) Status BUN 06/10/2024 04:01:00 7 6-20 (mg/dL) Final Creatinine 06/10/2024 04:01:00 0.3 Below low normal 0.5-1.0 (mg/dL) Final Glomerular filtration rate/1.73 sq M.predicted [Volume Rate/Area] in Serum, Plasma or Blood by Creatinine-based formula (CKD-EPI) 06/10/2024 04:01:00 >90 >=60 (mL/min) Final eGFR is calculated based on the CKD-EPI 2020 equation. Sodium 06/10/2024 04:01:00 139 135-146 (m mol/L) Final Potassium 06/10/2024 04:01:00 3.2 Below low normal 3.5 -5.1 (mmol/L) Final Cl 06/10/2024 04:01:00 107 98-107 (mm ol/L) Final CO2 06/10/2024 04:01:00 22 22-32 (mmo l/L) Final Anion gap 06/10/2024 04:01:00 10 7-15 (mmol /L) Final Glucose 06/10/2024 04:01:00 81 70-120 (mg /dL) Final Albumin 06/10/2024 04:01:00 2.6 Below low normal 3.8 -5.0 (g/dL) Final AST (Aspartate aminotransferase) 06/10/2024 04:01:00 120 Above high normal 10-35 (U/L) Final Alk Phos 06/10/2024 04:01:00 65 35-130 (U/ L) Final Bilirubin, Total 06/10/2024 04:01:00 0.3 <=1 .2 (mg/dL) Final Calcium 06/10/2024 04:01:00 6.5 Below low normal 8.4 -10.2 (mg/dL) Final Protein 06/10/2024 04:01:00 5.2 Below low normal 6.0 -8.3 (g/dL) Final ALT (Alanine aminotransferase) 06/10/2024 04:01:00 39 Above high normal 10-35 (U/L) Final Performing Location LABORATORY [facility] [place] - [address] [facility] [address]
--- OUTSIDE RECORDS SUMMARY | 2024-07-05 06:44 | External Medical Summary ---
Author Name Unknown Address Unknown Organization K01:LABORATORY [facility] [place] - [address] [facility] [address] Laboratory Report Ordering Provider Test Date Status MICHAEL BARBA 06/10/2024 04:01:00 Final Observation Date Value Abnormality Reference (Units ) Status SYNC LEUKOCYTES IN BLOOD BY AUTOMATED COUNT 06/10/2024 04:01:00 10.12 4.00-10.80 (K/uL) Final Segs 06/10/2024 04:01:00 92.4 Above high normal 40.0-75.0 (%) Final Lymphs % 06/10/2024 04:01:00 5.4 Below low normal 18.0-42.0 (%) Final Monos 06/10/2024 04:01:00 1.0 1.0-11.0 (%) Final Eosinophils 06/10/2024 04:01:00 0.0 0.0-6.0 (%) Final Basos 06/10/2024 04:01:00 0.0 0.0-2.0 (%) Final Immature Granulocyte, Percent 06/10/2024 04:01:00 1.2 0.0-2.0 (%) Final Absolute Segs 06/10/2024 04:01:00 9.35 Above high normal 1.80-7.70 (K/uL) Final Lymphs, absolute 06/10/2024 04:01:00 0.55 Below low normal 1.00-4.80 (K/ul) Final Monos, Abs 06/10/2024 04:01:00 0.10 0.00-1.10 (K/uL) Final Eos, Abs 06/10/2024 04:01:00 0.00 0.00-0.70 (K/uL) Final Basos, Abs 06/10/2024 04:01:00 0.00 0.00-0.20 (K/uL) Final Immature Granulocytes, Number 06/10/2024 04:01:00 0.12 0.00-0.20 (K/uL) Final Performing Location LABORATORY [facility] [place] - [facility] [address] [facility] [address]
--- OUTSIDE RECORDS SUMMARY | 2024-07-05 06:44 | External Medical Summary ---
Author Name Unknown Address Unknown Organization K01:LAB[facility]ORY [facility] [place] [address] [place] [address] Laboratory Report Ordering Provider Test Date Status PATRICIA ALBERTO 06/08/2024 05:22:00 Final Anticoagulation may affect t esting. Refer to [employer] Test Catalog for a list of effects. Observation Date Value Abnormality Reference (Units ) Status aPTT panel - Platelet poor plasma 06/08/2024 05:22:00 41 Above high normal 21-38 (seconds) Final Performing Location LABOR[facility]ORY [facility] [place] [address] [place] [address]
--- OUTSIDE RECORDS SUMMARY | 2024-07-05 06:44 | External Medical Summary ---
Author Name Unknown Address Unknown Organization K01:LABORATORY [facility] [place] - [facility] [address] [facility] [address] Laboratory Report Ordering Provider Test Date Status DIVINA MILIAN 06/08/2024 20:57:00 Final Observation Date Value Abnormality Reference (Units ) Status WBC, Total 06/08/2024 20:57:00 6.34 4.00-10.80 (K/uL) Final RBC 06/08/2024 20:57:00 3.22 3.85-5.15 (M/uL) Final Hemoglobin 06/08/2024 20:57:00 8.7 Below low normal 12.0-15.3 (g/dL) Final HCT 06/08/2024 20:57:00 26.9 Below low normal 36.0-45.2 (%) Final MCV 06/08/2024 20:57:00 83.5 81.5-97.5 (fL) Final MCH 06/08/2024 20:57:00 27.0 27.0-34.0 (pg) Final MCHC 06/08/2024 20:57:00 32.3 32.0-36.0 (g/dL) Final RDW 06/08/2024 20:57:00 19.6 11.5-15.5 (%) Final Platelets 06/08/2024 20:57:00 286 140-400 (K/uL) Final MPV 06/08/2024 20:57:00 8.7 6.6-11.1 (fL) Final Nucleated erythrocytes/100 leukocytes [Ratio] in Blood by Automated count 06/08/2024 20:57:00 0 <=0 (/100 WBCs) Final Performing Location LABORATORY [facility] [place] - [facility] [place] [address]
--- OUTSIDE RECORDS SUMMARY | 2024-07-05 06:44 | External Medical Summary ---
Author Name Unknown Address Unknown Organization K01:LABORATORY [facility] [place] - [address] [place] [address] Laboratory Report Ordering Provider Test Date Status PATRICIA ALBERTO 06/09/2024 07:59:00 Final Anticoagulation may affect t esting. Refer to [employer] Test Catalog for a list of effects. Observation Date Value Abnormality Reference (Units ) Status aPTT panel - Platelet poor plasma 06/09/2024 07:59:00 83 Above high normal 21-38 (seconds) Final Performing Location LABORATORY [facility] [place] - [address] [place] [address]
--- OUTSIDE RECORDS SUMMARY | 2024-07-05 06:44 | External Medical Summary ---
Author Name Unknown Address Unknown Organization K01:LABORATORY [facility] - [address] [place] [address] Laboratory Report Ordering Provider Test Date Status PATRICIA ALBERTO 06/09/2024 05:01:00 Final Observation Date Value Abnormality Reference (Units ) Status Ferritin 06/09/2024 05:01:00 6776 Above high normal 13 -150 (ng/mL) Final Performing Location LAB[facility] - [address] [place] [address]
--- OUTSIDE RECORDS SUMMARY | 2024-07-05 06:44 | External Medical Summary ---
Author Name Unknown Address Unknown Organization K01:LABORATORY [facility] [place] - [facility] [address] [facility] [address] [facility] [address] Laboratory Report Ordering Provider Test Date Status MIGEL BEAN 06/10/2024 00:07:00 Final Observation Date Value Abnormality Reference (Units ) Status Calcium.ionized [Moles/volume] in Serum or Plasma by Ion-selective membrane electrode (ISE) 06/10/2024 00:07:00 0.98 Below low normal 1.13-1.32 (mmol/L) Final This test was developed and its performance characteristics dtermined by [employer]. It has not been cleared or approved by the [place] Food and Drug Administration Performing Location LABORATORY [place] [address] [facility] [address]
--- OUTSIDE RECORDS SUMMARY | 2024-07-05 06:44 | External Medical Summary ---
Author Name Unknown Address Unknown Organization K01:LABORATORY [facility] [place] [address] [place] [address] Laboratory Report Ordering Provider Test Date Status PATRICIA ALBERTO 06/09/2024 05:01:00 Final Observation Date Value Abnormality Reference (Units ) Status CRP, low-sensitivity 06/09/2024 05:01:00 142 Above high normal <=5 (mg/L) Final Performing Location LAB[facility]ORY [facility] - [address] [place] [address]
--- OUTSIDE RECORDS SUMMARY | 2024-07-05 06:44 | External Medical Summary ---
Author Name Unknown Address Unknown Organization K01:[place] [facility] [place] [address] [place] [address] Laboratory Report Ordering Provider Test Date Status DIVINA MILIAN 06/08/2024 21:22:08 Final Observation Date Value Abnormality Reference (Units) Status Bacteria identified in Specimen by Culture 06/08/2024 21:22:08 No significant growth Final Test: Culture, Urine, Quanti tative
Specimen Source: Urine, Unspecified
Specimen Type: Urine
Specimen Date: 06/08/[id number]
Result Date: 06/09/20241899
Result Status: Final result
Resulting Lab: [facility] [place]
[address]
[place] [address]

CULTURE

No significant growth

null Performing Location [facility] [place] [address] [facility] [address]
--- OUTSIDE RECORDS SUMMARY | 2024-07-05 06:44 | External Medical Summary ---
Author Name Unknown Address Unknown Organization K01:LABORATORY [facility] - [address] [place] [address] Laboratory Report Ordering Provider Test Date Status REMYPATRICIA 06/08/2024 05:22:00 Final Observation Date Value Abnormality Reference (Units ) Status Triglyceride 06/08/2024 05:22:00 312 Above high normal <=174 (mg/dL) Final Triglyceride Reference Range s (mg/dL):
<150 Acceptable
150-174 Borderline high
175-499 High
>=500 Very high Performing Location LABORATORY C - [address] [place] [address]
--- OUTSIDE RECORDS SUMMARY | 2024-07-05 06:44 | External Medical Summary ---
Author Name Unknown Address Unknown Organization [id number]:[place] [facility] [place] [address] [place] [address] Laboratory Report Ordering Provider Test Date Status DIVINA MILIAN 06/08/2024 20:56:00 Final Observation Date Value Abnormality Reference (Units ) Status Lactic Acid 06/08/2024 20:56:00 1.4 0.4-2.0 (mmol/L) Final Performing Location LABORATORY C - [address] [place] [address]
--- OUTSIDE RECORDS SUMMARY | 2024-07-05 06:44 | External Medical Summary ---
Author Name Unknown Address Unknown Organization [id number]:[place] [facility] [place] [address] [place] [address] Laboratory Report Ordering Provider Test Date Status RENE MCKENNA 06/09/2024 05:05:00 Final Observation Date Value Abnormality Reference (Units ) Status Bacteria identified in Specimen by Culture 06/09/2024 05:05:00 No growth Final Test: Culture, Blood (Site 2 )
Specimen Source: Blood, Venous
Specimen Type: Blood
Specimen Date: 06/09/2024 0505
Result Date: 06/14/2024 0701
Result Status: Final result
Resulting Lab: [place] [facility] [place]
[address]
[place] [address]

CULTURE

No growth

null Performing Location [place] [facility] [place] [address] [place] [address]
--- OUTSIDE RECORDS SUMMARY | 2024-07-05 06:44 | External Medical Summary | Summary of Care ---
Author Name Unknown Organization [facility] Address [address] [facility] [place] [address] Phone [phone] Care Team Providers Care Associate Trainer Name Role Phone Payal Myers MD Primary Care Provider [phone] Encounter Details Date Type Department Care Team (Late st Contact Info) Description 06/09/2024 Result Scan Unspecified Department <No scans attached> Allergies Active Allergy Reactions Criticality Noted Date Comments Sulfasalazine Rash Medium 10/23/2023 documented as of this encounter (statuses as of 06/09/2024) Medications 08/10 1-20 MG-MCG per tablet 1 [...] as of this encounter (statuses as of 06/09/2024) Active Problems Problem Noted Date Diagnosed Date [...] as of this encounter (statuses as of 06/09/2024) Immunizations Name Administration Dates Next Due COVID-19 [...] No 02/28/2024 Does the household have a [facility] source of income? (Household - for ages [...] Description 06/25/2024 11:40 AM EST Office Visit [facility] [address] [facility] [place] [address] Payal Myers MD [address] [facility] [place] [address] 08/19/2024 9:00 AM EST Office Visit Nephrology, [facility] [address] [place] [address] Ant Cardona MD [address] [facility] [place] [address] 08/31/2024 8:20 AM EST Office Visit [facility] [address] [facility] [place] [address] Payal Myers MD [address] [facility] [place] [address] Health Maintenance Due Date Last Done Comments [...] Date/Time Associated Diagnosis Comments OUTSIDE LAB RESULTS 06/09/2024 documented in this encounter Results * OUTSIDE LAB RESULTS (06/09/2024) 06/09/2024 us No Physician Data Unknown LABORATORY Final Result documented in this encounter Advance Directives * [...] Advance Directives occurred with: Patient Care Teams Associate Trainer Relationship Specialty Start Date End Date Payal Myers MD [address] [place] [address] PCP - General Family Medicine 01/21/24 documented as of this encounter
--- OUTSIDE RECORDS SUMMARY | 2024-07-05 06:44 | External Medical Summary ---
Author Name Unknown Address Unknown Organization [id number]:[place] [facility] [place] [address] [place] [address] Laboratory Report Ordering Provider Test Date Status PATRICIA ALBERTO 06/09/2024 05:00:00 Final Observation Date Value Abnormality Reference (Units ) Status Erythrocyte sedimentation rate by Photometric method 06/09/2024 05:00:00 24 Above high normal <20 (mm/hour) Final Performing Location [facility] [place] [address] [place] [address]
--- OUTSIDE RECORDS SUMMARY | 2024-07-05 06:44 | External Medical Summary ---
Author Name Unknown Address Unknown Organization K01:LABORATORY [facility] - [address] [place] [address] Laboratory Report Ordering Provider Test Date Status PATRICIA ALBERTO 06/09/2024 05:01:00 Final Observation Date Value Abnormality Reference (Units ) Status LDH 06/09/2024 05:01:00 727 Above high normal <= 250 (U/L) Final Performing Location LAB[facility]ORY [facility] - [address] [place] [address]
--- OUTSIDE RECORDS SUMMARY | 2024-07-05 06:44 | External Medical Summary ---
Author Name Unknown Address Unknown Organization K01:LAB[place]ATORY [facility] [place] [address] [facility] [place] [address] Laboratory Report Ordering Provider Test Date Status ANNJOSE 06/08/2024 11:40:00 Final Observation Date Value Abnormality Reference (Units ) Status Calcium.ionized [Moles/volume] in Serum or Plasma by Ion-selective membrane electrode (ISE) 06/08/2024 11:40:00 1.07 Below low normal 1.13-1.32 (mmol/L) Final This test was developed and its performance characteristics dtermined by [email or web address]. It has not been cleared or approved by the US Food and Drug Administration Performing Location LABORATORY [facility] [place] - [address] [place] [address]
--- OUTSIDE RECORDS SUMMARY | 2024-07-05 06:44 | External Medical Summary ---
Author Name Unknown Address Unknown Organization K01:LABORATORY [facility] - [address] [place] [address] Laboratory Report Ordering Provider Test Date Status PATRICIA ALBERTO 06/10/2024 04:01:00 Final Observation Date Value Abnormality Reference (Units ) Status Ferritin 06/10/2024 04:01:00 6321 Above high normal 13 -150 (ng/mL) Final Performing Location LAB[facility]ATORY [facility] - [address] [place] [address]
--- OUTSIDE RECORDS SUMMARY | 2024-07-05 06:44 | External Medical Summary ---
Author Name Unknown Address Unknown Organization K01:LABORATORY [facility] [place] - [address] [facility] [place] [address] Laboratory Report Ordering Provider Test Date Status ANNJOSE 06/09/2024 05:01:00 Final Observation Date Value Abnormality Reference (Units ) Status Calcium.ionized [Moles/volume] in Serum or Plasma by Ion-selective membrane electrode (ISE) 06/09/2024 05:01:00 0.97 Below low normal 1.13-1.32 (mmol/L) Final This test was developed and its performance characteristics dtermined by [employer]. It has not been cleared or approved by the US Food and Drug Administration Performing Location LABORATORY [facility] [place] - [address] [place] [address]
--- OUTSIDE RECORDS SUMMARY | 2024-07-05 06:44 | External Medical Summary ---
Author Name Unknown Address Unknown Organization K01:LABORATORY [facility] - [address] [place] [address] Laboratory Report Ordering Provider Test Date Status PATRICIA ALBERTO 06/08/2024 05:22:00 Final Observation Date Value Abnormality Reference (Units ) Status Ferritin 06/08/2024 05:22:00 5969 Above high normal 13 -150 (ng/mL) Final Performing Location LAB[facility]ORY [facility] - [address] [place] [address]
--- OUTSIDE RECORDS SUMMARY | 2024-07-05 06:44 | External Medical Summary ---
Author Name Unknown Address Unknown Organization K01:LABORATORY [facility] [place] - [address] [facility] [address] Laboratory Report Ordering Provider Test Date Status DIVINA MILIAN 06/08/2024 21:22:08 Final Observation Date Value Abnormality Reference (Units ) Status Color of Urine by Auto 06/08/2024 21:22:08 Yellow Colorless, Light Yellow, Yellow, Dark Yellow Final Clarity, Urine 06/08/2024 21:22:08 Clear Clear Final Glucose [Mass/volume] in Urine by Automated test strip 06/08/2024 21:22:08 Negative Negative (mg/dL) Final Bilirubin.total [Presence] in Urine by Automated test strip 06/08/2024 21:22:08 Negative Negative Final Ketones [Mass/volume] in Urine by Automated test strip 06/08/2024 21:22:08 Negative Negative (mg/dL) Final Specific gravity, Urine 06/08/2024 21:22:08 1.025 1.003-1.030 Final Hemoglobin [Presence] in Urine by Automated test strip 06/08/2024 21:22:08 Moderate Abnormal Negative Final pH, Urine 06/08/2024 21:22:08 6.5 5.0-7.5 (Units) Final Protein [Mass/volume] in Urine by Automated test strip 06/08/2024 21:22:08 30 Abnormal Negative (mg/dL) Final Urobilinogen [Mass/volume] in Urine by Automated test strip 06/08/2024 21:22:08 Normal Normal (mg/dL) Final Nitrite [Presence] in Urine by Automated test strip 06/08/2024 21:22:08 Negative Negative Final Leukocyte esterase [Presence] in Urine by Automated test strip 06/08/2024 21:22:08 Negative Negative Final RBC, Urine 06/08/2024 21:22:08 3-5 Abnormal 0-2 (/HPF) Final WBC, Urine 06/08/2024 21:22:08 3-5 Abnormal 0-2 (/HPF) Final Bacteria [#/area] in Urine sediment by Microscopy high power field 06/08/2024 21:22:08 101-150 Abnormal 0-25 (/HPF) Final CULTURE, URINE - [facility] 06/08/2024 21:22:08 Final Quantitative urine culture t o be performed Performing Location LABORATORY [facility] [place] - [address] [facility] [address]
--- OUTSIDE RECORDS SUMMARY | 2024-07-05 06:44 | External Medical Summary ---
Author Name Unknown Address Unknown Organization K01:[place]ATORY [facility] [place] [address] [place] [address] Laboratory Report Ordering Provider Test Date Status PATRICIA ALBERTO 06/08/2024 05:22:00 Final Observation Date Value Abnormality Reference (Units ) Status Erythrocyte sedimentation rate by Photometric method 06/08/2024 05:22:00 9 <20 (mm/hour) Final Performing Location LABORATORY [facility] [place] [address] [place] [address]
--- OUTSIDE RECORDS SUMMARY | 2024-07-05 06:44 | External Medical Summary ---
Author Name Unknown Address Unknown Organization K01:LAB[facility]ATORY [facility] [place] [address] [facility] [address] Laboratory Report Ordering Provider Test Date Status MICHAEL BARBA 06/08/2024 05:22:00 Final Observation Date Value Abnormality Reference (Units ) Status SYNC LEUKOCYTES IN BLOOD BY AUTOMATED COUNT 06/08/2024 05:22:00 3.78 Below low normal 4.00-10.80 (K/uL) Final Segs 06/08/2024 05:22:00 84.6 Above high normal 40.0-75.0 (%) Final Lymphs % 06/08/2024 05:22:00 9.5 Below low normal 18.0-42.0 (%) Final Monos 06/08/2024 05:22:00 1.9 1.0-11.0 (%) Final Eosinophils 06/08/2024 05:22:00 0.0 0.0-6.0 (%) Final Basos 06/08/2024 05:22:00 0.0 0.0-2.0 (%) Final Immature Granulocyte, Percent 06/08/2024 05:22:00 4.0 Above high normal 0.0-2.0 (%) Final Absolute Segs 06/08/2024 05:22:00 3.20 1.80-7.70 (K/uL) Final Lymphs, absolute 06/08/2024 05:22:00 0.36 Below low normal 1.00-4.80 (K/ul) Final Monos, Abs 06/08/2024 05:22:00 0.07 0.00-1.10 (K/uL) Final Eos, Abs 06/08/2024 05:22:00 0.00 0.00-0.70 (K/uL) Final Basos, Abs 06/08/2024 05:22:00 0.00 0.00-0.20 (K/uL) Final Immature Granulocytes, Number 06/08/2024 05:22:00 0.15 0.00-0.20 (K/uL) Final Performing Location LABORATORY [facility] [place] - [facility] [address] [place] [address]
--- OUTSIDE RECORDS SUMMARY | 2024-07-05 06:44 | External Medical Summary ---
Author Name Unknown Address Unknown Organization K01:[place]ORY [facility] [place] [address] [place] [address] Laboratory Report Ordering Provider Test Date Status MICHAEL BARBA 06/08/2024 05:22:00 Final Observation Date Value Abnormality Reference (Units ) Status Complement C3c [Mass/volume] in Serum or Plasma 06/08/2024 05:22:00 58 Below low normal 90-180 (mg/dL) Final Performing Location LAB[facility]ORY [facility] [place] [address] [place] [address]
--- OUTSIDE RECORDS SUMMARY | 2024-07-05 06:44 | External Medical Summary ---
Author Name Unknown Address Unknown Organization K01:LABORATORY [facility] - [address] [place] [address] Laboratory Report Ordering Provider Test Date Status PATRICIA ALBERTO 06/10/2024 04:01:00 Final Observation Date Value Abnormality Reference (Units ) Status LDH 06/10/2024 04:01:00 695 Above high normal <= 250 (U/L) Final Performing Location LABORATORY [facility] - [address] [place] [address]
--- OUTSIDE RECORDS SUMMARY | 2024-07-05 06:44 | External Medical Summary ---
Author Name Unknown Address Unknown Organization K01:[place]ORY [facility] [place] [address] [place] [address] Laboratory Report Ordering Provider Test Date Status RENE MCKENNA 06/09/2024 05:00:00 Final Observation Date Value Abnormality Reference (Units ) Status Bacteria identified in Specimen by Culture 06/09/2024 05:00:00 No growth Final Test: Culture, Blood
Spe cimen Source: Blood, Venous
Specimen Type: Blood
Specimen Date: 06/09/2024 0500
Result Date: 06/14/2024 0701
Result Status: Final result
Resulting Lab: LABORATORY [facility]
[address]
[place] [address]

CULTURE

No growth

null Performing Location LABORATORY [facility] - [address] [place] [address]
--- OUTSIDE RECORDS SUMMARY | 2024-07-05 06:44 | External Medical Summary ---
Author Name Unknown Address Unknown Organization K01:LABORATORY [facility] [place] - [address] [place] [address] Laboratory Report Ordering Provider Test Date Status MICHAEL BARBA 06/09/2024 05:01:00 Final Observation Date Value Abnormality Reference (Units ) Status Complement C3c [Mass/volume] in Serum or Plasma 06/09/2024 05:01:00 74 Below low normal 90-180 (mg/dL) Final Performing Location LABORATORY [facility] [place] - [address] [place] [address]
--- OUTSIDE RECORDS SUMMARY | 2024-07-05 06:44 | External Medical Summary ---
Author Name Unknown Address Unknown Organization K01:[place] [facility] [place] [address] [facility] [place] [address] Laboratory Report Ordering Provider Test Date Status ANNJOSE 06/08/2024 16:31:00 Final Observation Date Value Abnormality Reference (Units ) Status Calcium.ionized [Moles/volume] in Serum or Plasma by Ion-selective membrane electrode (ISE) 06/08/2024 16:31:00 1.02 Below low normal 1.13-1.32 (mmol/L) Final This test was developed and its performance characteristics dtermined by [employer]. It has not been cleared or approved by the [place] Food and Drug Administration Performing Location LAB[facility] [facility] [place] [address] [place] [address]
--- OUTSIDE RECORDS SUMMARY | 2024-07-05 06:44 | External Medical Summary ---
Author Name Unknown Address Unknown Organization K01:[place]ORY [facility] [place] [address] [place] [address] Laboratory Report Ordering Provider Test Date Status PATRICIA ALBERTO 06/08/2024 05:22:00 Final Observation Date Value Abnormality Reference (Units ) Status CRP, low-sensitivity 06/08/2024 05:22:00 58 Above high normal <=5 (mg/L) Final Performing Location LABORATORY [facility] - [address] [place] [address]
--- OUTSIDE RECORDS SUMMARY | 2024-07-05 06:44 | External Medical Summary ---
Author Name Unknown Address Unknown Organization K01:LABORATORY [facility] [place] - [address] [place] [address] Laboratory Report Ordering Provider Test Date Status ANNJOSHUAFRANKIE 06/09/2024 07:59:00 Final Observation Date Value Abnormality Reference (Units ) Status Calcium.ionized [Moles/volume] in Serum or Plasma by Ion-selective membrane electrode (ISE) 06/09/2024 07:59:00 0.91 Below low normal 1.13-1.32 (mmol/L) Final This test was developed and its performance characteristics dtermined by [employer]. It has not been cleared or approved by the US Food and Drug Administration Performing Location LABORATORY [facility] [place] - [address] [place] [address]
--- OUTSIDE RECORDS SUMMARY | 2024-07-05 06:44 | External Medical Summary ---
Author Name Unknown Address Unknown Organization K01:LABORATORY [place] [address] [address] [facility] [address] [facility] [address] Laboratory Report Ordering Provider Test Date Status JOSE JUAREZ 06/08/2024 09:10:00 Final Observation Date Value Abnormality Reference (Units ) Status Calcium.ionized [Moles/volume] in Serum or Plasma by Ion-selective membrane electrode (ISE) 06/08/2024 09:10:00 1.15 1.13-1.32 (mmol/L) Final This test was developed and its performance characteristics dtermined by [employer]. It has not been cleared or approved by the US Food and Drug Administration Performing Location LABORATORY [address] [facility] [address]
--- OUTSIDE RECORDS SUMMARY | 2024-07-05 06:45 | External Medical Summary ---
Author Name Unknown Address Unknown Organization K01:LABORATORY [facility] [place] - [facility] [address] [facility] [address] Laboratory Report Ordering Provider Test Date Status MICHAEL BARBA 06/07/2024 05:54:00 Final Observation Date Value Abnormality Reference (Units ) Status WBC, Total 06/07/2024 05:54:00 2.63 Below low normal 4.00-10.80 (K/uL) Final RBC 06/07/2024 05:54:00 3.31 3.85-5.15 (M/uL) Final Hemoglobin 06/07/2024 05:54:00 8.7 Below low normal 12.0-15.3 (g/dL) Final HCT 06/07/2024 05:54:00 28.1 Below low normal 36.0-45.2 (%) Final MCV 06/07/2024 05:54:00 84.9 81.5-97.5 (fL) Final MCH 06/07/2024 05:54:00 26.3 27.0-34.0 (pg) Final MCHC 06/07/2024 05:54:00 31.0 32.0-36.0 (g/dL) Final RDW 06/07/2024 05:54:00 19.1 11.5-15.5 (%) Final Platelets 06/07/2024 05:54:00 287 140-400 (K/uL) Final MPV 06/07/2024 05:54:00 8.3 6.6-11.1 (fL) Final Nucleated erythrocytes/100 leukocytes [Ratio] in Blood by Automated count 06/07/2024 05:54:00 0 <=0 (/100 WBCs) Final Performing Location LABORATORY [facility] [place] - [address] [place] [address]
--- OUTSIDE RECORDS SUMMARY | 2024-07-05 06:45 | External Medical Summary ---
Author Name Unknown Address Unknown Organization K01:LABORATORY [facility] [place] - [address] [facility] [address] [facility] [address] [place] [address] Laboratory Report Ordering Provider Test Date Status JOSE JUAREZ 06/06/2024 23:31:00 Final Observation Date Value Abnormality Reference (Units ) Status BUN 06/06/2024 23:31:00 7 6-20 (mg/dL) Final Creatinine 06/06/2024 23:31:00 0.3 Below low normal 0.5-1.0 (mg/dL) Final Glomerular filtration rate/1.73 sq M.predicted [Volume Rate/Area] in Serum, Plasma or Blood by Creatinine-based formula (CKD-EPI) 06/06/2024 23:31:00 >90 >=60 (mL/min) Final eGFR is calculated based on the CKD-EPI 2020 equation. Sodium 06/06/2024 23:31:00 136 135-146 (m mol/L) Final Potassium 06/06/2024 23:31:00 3.5 3.5-5.1 (m mol/L) Final Cl 06/06/2024 23:31:00 106 98-107 (mm ol/L) Final CO2 06/06/2024 23:31:00 20 Below low normal 22- 32 (mmol/L) Final Anion gap 06/06/2024 23:31:00 10 7-15 (mmol /L) Final Glucose 06/06/2024 23:31:00 81 70-120 (mg /dL) Final Calcium 06/06/2024 23:31:00 5.6 Below lower panic li mits 8.4-10.2 (mg/dL) Final Performing Location LABORATORY [facility] [place] - [address] [place] [address]
--- OUTSIDE RECORDS SUMMARY | 2024-07-05 06:45 | External Medical Summary ---
Author Name Unknown Address Unknown Organization K01:LABORATORY [facility] [place] - [facility] [address] [facility] [address] [facility] [address] Laboratory Report Ordering Provider Test Date Status MICHAEL BARBA 06/06/2024 05:12:00 Final Observation Date Value Abnormality Reference (Units ) Status WBC, Total 06/06/2024 05:12:00 3.28 Below low normal 4.00-10.80 (K/uL) Final RBC 06/06/2024 05:12:00 3.59 3.85-5.15 (M/uL) Final Hemoglobin 06/06/2024 05:12:00 9.4 Below low normal 12.0-15.3 (g/dL) Final HCT 06/06/2024 05:12:00 31.0 Below low normal 36.0-45.2 (%) Final MCV 06/06/2024 05:12:00 86.4 81.5-97.5 (fL) Final MCH 06/06/2024 05:12:00 26.2 27.0-34.0 (pg) Final MCHC 06/06/2024 05:12:00 30.3 32.0-36.0 (g/dL) Final RDW 06/06/2024 05:12:00 19.0 11.5-15.5 (%) Final Platelets 06/06/2024 05:12:00 301 140-400 (K/uL) Final MPV 06/06/2024 05:12:00 8.8 6.6-11.1 (fL) Final Nucleated erythrocytes/100 leukocytes [Ratio] in Blood by Automated count 06/06/2024 05:12:00 0 <=0 (/100 WBCs) Final Performing Location LABORATORY [facility] [place] - [address] [place] [address]
--- OUTSIDE RECORDS SUMMARY | 2024-07-05 06:45 | External Medical Summary ---
Author Name Unknown Address Unknown Organization K01:LABORATORY [facility] [place] - [address] [place] [address] Laboratory Report Ordering Provider Test Date Status PATRICIA ALBERTO 06/08/2024 05:22:00 Final Warfarin Therapy
INR: 2 .0-3.0 conventional anticoagulation
INR: 2.5- 3.5 high intensity anticoagulation Observation Date Value Abnormality Reference (Units ) Status PT 06/08/2024 05:22:00 14.7 11.6-15.2 (seconds) Final INR 06/08/2024 05:22:00 1.1 0.8-1.2 Final Performing Location LABORATORY [facility] [place] - [address] [place] [address]
--- OUTSIDE RECORDS SUMMARY | 2024-07-05 06:45 | External Medical Summary ---
Author Name Unknown Address Unknown Organization K01:LABORATORY [facility] [place] - [address] [facility] [address] Laboratory Report Ordering Provider Test Date Status PATRICIA ALBERTO 06/07/2024 05:54:00 Final Observation Date Value Abnormality Reference (Units ) Status BUN 06/07/2024 05:54:00 6 6-20 (mg/dL) Final Creatinine 06/07/2024 05:54:00 0.3 Below low normal 0.5-1.0 (mg/dL) Final Glomerular filtration rate/1.73 sq M.predicted [Volume Rate/Area] in Serum, Plasma or Blood by Creatinine-based formula (CKD-EPI) 06/07/2024 05:54:00 >90 >=60 (mL/min) Final eGFR is calculated based on the CKD-EPI 2020 equation. Sodium 06/07/2024 05:54:00 137 135-146 (m mol/L) Final Potassium 06/07/2024 05:54:00 3.8 3.5-5.1 (m mol/L) Final Cl 06/07/2024 05:54:00 106 98-107 (mm ol/L) Final CO2 06/07/2024 05:54:00 20 Below low normal 22- 32 (mmol/L) Final Anion gap 06/07/2024 05:54:00 11 7-15 (mmol /L) Final Glucose 06/07/2024 05:54:00 69 Below low normal 70- 120 (mg/dL) Final Albumin 06/07/2024 05:54:00 2.6 Below low normal 3.8 -5.0 (g/dL) Final AST (Aspartate aminotransferase) 06/07/2024 05:54:00 105 Above high normal 10-35 (U/L) Final Alk Phos 06/07/2024 05:54:00 72 35-130 (U/ L) Final Bilirubin, Total 06/07/2024 05:54:00 0.2 <=1 .2 (mg/dL) Final Calcium 06/07/2024 05:54:00 6.3 Below low normal 8.4 -10.2 (mg/dL) Final Protein 06/07/2024 05:54:00 4.8 Below low normal 6.0 -8.3 (g/dL) Final ALT (Alanine aminotransferase) 06/07/2024 05:54:00 36 Above high normal 10-35 (U/L) Final Performing Location LABORATORY [facility] [place] - [address] [facility] [address]
--- OUTSIDE RECORDS SUMMARY | 2024-07-05 06:45 | External Medical Summary ---
Author Name Unknown Address Unknown Organization K01:[place] [facility] [place] [address] [place] [address] Laboratory Report Ordering Provider Test Date Status PATRICIA ALBERTO 06/06/2024 05:12:00 Final Warfarin Therapy
INR: 2 .0-3.0 conventional anticoagulation
INR: 2.5- 3.5 high intensity anticoagulation Observation Date Value Abnormality Reference (Units ) Status PT 06/06/2024 05:12:00 13.5 11.6-15.2 (seconds) Final INR 06/06/2024 05:12:00 1.0 0.8-1.2 Final Performing Location [place] [facility] [place] [address] [place] [address]
--- OUTSIDE RECORDS SUMMARY | 2024-07-05 06:45 | External Medical Summary ---
Author Name Unknown Address Unknown Organization K01:LABORATORY [facility] - [address] [place] [address] Laboratory Report Ordering Provider Test Date Status PATRICIA ALBERTO 06/07/2024 05:54:00 Final Observation Date Value Abnormality Reference (Units ) Status Triglyceride 06/07/2024 05:54:00 357 Above high normal <=174 (mg/dL) Final Triglyceride Reference Range s (mg/dL):
<150 Acceptable
150-174 Borderline high
175-499 High
>=500 Very high Performing Location LABORATORY [facility] - [address] [place] [address]
--- OUTSIDE RECORDS SUMMARY | 2024-07-05 06:45 | External Medical Summary ---
Author Name Unknown Address Unknown Organization : Laboratory Report Ordering Provider Test Date Status RENE STOVER 06/07/2024 16:19:18 Final Observation Date Value Abnormality Reference (Units ) Status Glucose Point of Care 06/07/2024 16:19:18 76 70-120 (mg/dL) Final Performing Location
--- OUTSIDE RECORDS SUMMARY | 2024-07-05 06:45 | External Medical Summary ---
Author Name Unknown Address Unknown Organization K01:LABORATORY [facility] [place] - [address] [facility] [address] Laboratory Report Ordering Provider Test Date Status ANNJOSE 06/07/2024 23:42:00 Final Observation Date Value Abnormality Reference (Units ) Status Calcium.ionized [Moles/volume] in Serum or Plasma by Ion-selective membrane electrode (ISE) 06/07/2024 23:42:00 1.05 Below low normal 1.13-1.32 (mmol/L) Final This test was developed and its performance characteristics dtermined by [employer]. It has not been cleared or approved by the US Food and Drug Administration Performing Location LABORATORY [facility] [place] - [address] [place] [address]
--- OUTSIDE RECORDS SUMMARY | 2024-07-05 06:45 | External Medical Summary ---
Author Name Unknown Address Unknown Organization [id number]:LABORATORY [facility] [place] - [address] [address] Laboratory Report Ordering Provider Test Date Status PATRICIA ALBERTO 06/06/2024 05:12:00 Final Observation Date Value Abnormality Reference (Units ) Status CRP, low-sensitivity 06/06/2024 05:12:00 31 Above high normal <=5 (mg/L) Final Performing Location [facility]ORY [facility] - [address] [address]
--- OUTSIDE RECORDS SUMMARY | 2024-07-05 06:45 | External Medical Summary ---
Author Name Unknown Address Unknown Organization K01:LABORATORY [facility] [place] - [address] [facility] [place] [address] Laboratory Report Ordering Provider Test Date Status MICHAEL BARBA 06/06/2024 05:12:00 Final Observation Date Value Abnormality Reference (Units ) Status Calcium.ionized [Moles/volume] in Serum or Plasma by Ion-selective membrane electrode (ISE) 06/06/2024 05:12:00 0.72 Below lower panic limits 1.13-1.32 (mmol/L) Final This test was developed and its performance characteristics dtermined by [employer]. It has not been cleared or approved by the US Food and Drug Administration Performing Location LABORATORY [facility] [place] - [address] [place] [address]
--- OUTSIDE RECORDS SUMMARY | 2024-07-05 06:45 | External Medical Summary ---
Author Name Unknown Address Unknown Organization [id number]:LABORATORY [facility] [place] - [address] [facility] [address] Laboratory Report Ordering Provider Test Date Status PATRICIA ALBERTO 06/06/2024 05:12:00 Final Observation Date Value Abnormality Reference (Units ) Status BUN 06/06/2024 05:12:00 9 6-20 (mg/dL) Final Creatinine 06/06/2024 05:12:00 0.4 Below low normal 0.5-1.0 (mg/dL) Final Glomerular filtration rate/1.73 sq M.predicted [Volume Rate/Area] in Serum, Plasma or Blood by Creatinine-based formula (CKD-EPI) 06/06/2024 05:12:00 >90 >=60 (mL/min) Final eGFR is calculated based on the CKD-EPI 2020 equation. Sodium 06/06/2024 05:12:00 137 135-146 (m mol/L) Final Potassium 06/06/2024 05:12:00 3.8 3.5-5.1 (m mol/L) Final Cl 06/06/2024 05:12:00 107 98-107 (mm ol/L) Final CO2 06/06/2024 05:12:00 18 Below low normal 22- 32 (mmol/L) Final Anion gap 06/06/2024 05:12:00 12 7-15 (mmol /L) Final Glucose 06/06/2024 05:12:00 80 70-120 (mg /dL) Final Albumin 06/06/2024 05:12:00 2.2 Below low normal 3.8 -5.0 (g/dL) Final AST (Aspartate aminotransferase) 06/06/2024 05:12:00 109 Above high normal 10-35 (U/L) Final Alk Phos 06/06/2024 05:12:00 90 35-130 (U/ L) Final Bilirubin, Total 06/06/2024 05:12:00 0.2 <=1 .2 (mg/dL) Final Calcium 06/06/2024 05:12:00 4.5 Below lo wer panic limits 8.4-10.2 (mg/dL) Final Protein 06/06/2024 05:12:00 5.1 Below low normal 6.0 -8.3 (g/dL) Final ALT (Alanine aminotransferase) 06/06/2024 05:12:00 41 Above high normal 10-35 (U/L) Final Performing Location LABORATORY [facility] [place] - [address] [facility] [address]
--- OUTSIDE RECORDS SUMMARY | 2024-07-05 06:45 | External Medical Summary ---
Author Name Unknown Address Unknown Organization K01:[facility]ATORY [facility] - [address] [address] Laboratory Report Ordering Provider Test Date Status JOSE JUAREZ 06/06/2024 23:31:00 Final Observation Date Value Abnormality Reference (Units ) Status Phosphate 06/06/2024 23:31:00 1.5 Below low normal 2.5 -4.8 (mg/dL) Final Performing Location [facility] - [address] [address]
--- OUTSIDE RECORDS SUMMARY | 2024-07-05 06:45 | External Medical Summary ---
Author Name Unknown Address Unknown Organization K01:LABORATORY [facility] - [address] [address] Laboratory Report Ordering Provider Test Date Status PATRICIA ALBERTO 06/08/2024 05:22:00 Final Observation Date Value Abnormality Reference (Units ) Status LDH 06/08/2024 05:22:00 503 Above high normal <= 250 (U/L) Final Performing Location LAB[facility] - [address] [address]
--- OUTSIDE RECORDS SUMMARY | 2024-07-05 06:45 | External Medical Summary ---
Author Name Unknown Address Unknown Organization K01:LABORATORY [place] [address] [facility] [address] Laboratory Report Ordering Provider Test Date Status ANNJOSE 06/07/2024 05:54:00 Final hCG can serve as a screening assay for . However, early may not give a positive hCG test result. In addition, some non- women may have a hCG result slightly higher than the reference limit. Careful interpretation of the hCG with clinical history is required to determine whether the patient may be . Observation Date Value Abnormality Reference (Units ) Status Choriogonadotropin.intact +Beta subunit [Units/volume] in Serum or Plasma 06/07/2024 05:54:00 <0.3 <=1.0 (mIU/mL) Final Performing Location LABORATORY [facility] [place] - [facility] [address] [facility] [address]
--- OUTSIDE RECORDS SUMMARY | 2024-07-05 06:45 | External Medical Summary ---
Author Name Unknown Address Unknown Organization K01:LABORATORY [facility] [place] - [address] [facility] [place] [address] Laboratory Report Ordering Provider Test Date Status ANNJOSE 06/07/2024 16:34:00 Final Observation Date Value Abnormality Reference (Units ) Status Calcium.ionized [Moles/volume] in Serum or Plasma by Ion-selective membrane electrode (ISE) 06/07/2024 16:34:00 1.06 Below low normal 1.13-1.32 (mmol/L) Final This test was developed and its performance characteristics dtermined by [employer]. It has not been cleared or approved by the US Food and Drug Administration Performing Location LABORATORY [facility] [place] - [address] [place] [address]
--- OUTSIDE RECORDS SUMMARY | 2024-07-05 06:45 | External Medical Summary ---
Author Name Unknown Address Unknown Organization K01:[place] [facility] [place] [address] [place] [address] Laboratory Report Ordering Provider Test Date Status ECHO SCOTT 06/07/2024 05:54:00 Final Observation Date Value Abnormality Reference (Units ) Status Lipase 06/07/2024 05:54:00 686 Above high normal 13 -60 (U/L) Final Performing Location [facility] - [address] [place] [address]
--- OUTSIDE RECORDS SUMMARY | 2024-07-05 06:45 | External Medical Summary ---
Author Name Unknown Address Unknown Organization K01:LABORATORY [facility] - [address] [place] [address] Laboratory Report Ordering Provider Test Date Status JOSE JUAREZ 06/06/2024 23:31:00 Final Observation Date Value Abnormality Reference (Units ) Status Magnesium 06/06/2024 23:31:00 2.4 1.5-2.6 (m g/dL) Final Performing Location LAB[facility] - [address] [address]
--- OUTSIDE RECORDS SUMMARY | 2024-07-05 06:45 | External Medical Summary ---
Author Name Unknown Address Unknown Organization K01:LABORATORY [facility] [place] - [address] [place] [address] Laboratory Report Ordering Provider Test Date Status MARCEL YOUNG 06/08/2024 03:34:25 Final Normal: <150 mg/24 hours<br/ >High: 150-500 mg/24 hours
Very High: >500 mg/24 hours
Nephrotic: >3000 mg/24 hours Observation Date Value Abnormality Reference (Units ) Status Protein, 24-hr Urine 06/08/2024 03:34:25 35 (mg/dL) Final Urine Volume 06/08/2024 03:34:25 1600 (mL) Final Protein, 24-hr Urine 06/08/2024 03:34:25 560 Above high normal <150 (mg/24 hours) Final Performing Location LABORATORY [facility] [place] - [address] [place] [address]
--- OUTSIDE RECORDS SUMMARY | 2024-07-05 06:45 | External Medical Summary ---
Author Name Unknown Address Unknown Organization K01:LABORATORY [facility] [place] - [address] [address] Laboratory Report Ordering Provider Test Date Status PATRICIA ALBERTO 06/07/2024 05:54:00 Final Warfarin Therapy
INR: 2 .0-3.0 conventional anticoagulation
INR: 2.5- 3.5 high intensity anticoagulation Observation Date Value Abnormality Reference (Units ) Status PT 06/07/2024 05:54:00 13.9 11.6-15.2 (seconds) Final INR 06/07/2024 05:54:00 1.1 0.8-1.2 Final Performing Location LABORATORY [facility] [place] - [address] [address]
--- OUTSIDE RECORDS SUMMARY | 2024-07-05 06:45 | External Medical Summary ---
Author Name Unknown Address Unknown Organization K01:LABORATORY [facility] - [address] [address] Laboratory Report Ordering Provider Test Date Status PATRICIA ALBERTO 06/06/2024 05:12:00 Final Observation Date Value Abnormality Reference (Units ) Status LDH 06/06/2024 05:12:00 611 Above high normal <= 250 (U/L) Final Performing Location [facility] - [address] [address]
--- OUTSIDE RECORDS SUMMARY | 2024-07-05 06:45 | External Medical Summary ---
Author Name Unknown Address Unknown Organization K01:LABORATORY [facility] - [address] [address] Laboratory Report Ordering Provider Test Date Status PATRICIA ALBERTO 06/07/2024 05:54:00 Final Observation Date Value Abnormality Reference (Units ) Status LDH 06/07/2024 05:54:00 581 Above high normal <= 250 (U/L) Final Performing Location LAB[facility]ATORY [facility] - [address] [place] [address]
--- OUTSIDE RECORDS SUMMARY | 2024-07-05 06:45 | External Medical Summary ---
Author Name Unknown Address Unknown Organization K01:LABORATORY [facility] - [address] [facility] [address] Laboratory Report Ordering Provider Test Date Status MICHAEL BARBA 06/07/2024 05:54:00 Final Observation Date Value Abnormality Reference (Units ) Status SYNC LEUKOCYTES IN BLOOD BY AUTOMATED COUNT 06/07/2024 05:54:00 2.63 Below low normal 4.00-10.80 (K/uL) Final Neutrophils/100 leukocytes in Blood by Manual count 06/07/2024 05:54:00 91.0 Above high normal 40.0-75.0 (%) Final Lymphocytes/100 leukocytes in Blood by Manual count 06/07/2024 05:54:00 6.0 Below low normal 18.0-42.0 (%) Final Monocytes/100 leukocytes in Blood by Manual count 06/07/2024 05:54:00 3.0 1.0-11.0 (%) Final Neutrophils [#/volume] in Blood by Manual count 06/07/2024 05:54:00 2.39 1.80-7.70 (K/uL) Final Lymphocytes [#/volume] in Blood by Manual count 06/07/2024 05:54:00 0.16 Below low normal 1.00-4.80 (K/uL) Final Monocytes [#/volume] in Blood by Manual count 06/07/2024 05:54:00 0.08 0.00-1.10 (K/uL) Final Performing Location LAB[facility]ATORY [facility] - [address] [facility] [address] [facility] [address]
--- OUTSIDE RECORDS SUMMARY | 2024-07-05 06:45 | External Medical Summary ---
Author Name Unknown Address Unknown Organization K01:LABORATORY [facility] - [address] [address] Laboratory Report Ordering Provider Test Date Status JSOE JUAREZ 06/07/2024 05:54:00 Final Observation Date Value Abnormality Reference (Units ) Status Phosphate 06/07/2024 05:54:00 2.3 Below low normal 2.5 -4.8 (mg/dL) Final Performing Location LAB[facility] - [address] [address]
--- OUTSIDE RECORDS SUMMARY | 2024-07-05 06:45 | External Medical Summary ---
Author Name Unknown Address Unknown Organization K01:LABORATORY [facility] [place] - [address] [address] Laboratory Report Ordering Provider Test Date Status PATRICIA ALBERTO 06/07/2024 05:54:00 Final Anticoagulation may affect t esting. Refer to [employer] Test Catalog for a list of effects. Observation Date Value Abnormality Reference (Units ) Status aPTT panel - Platelet poor plasma 06/07/2024 05:54:00 36 21-38 (seconds) Final Performing Location LABORATORY [facility] [place] - [address] [address]
--- OUTSIDE RECORDS SUMMARY | 2024-07-05 06:45 | External Medical Summary ---
Author Name Unknown Address Unknown Organization K01:LABORATORY [facility] [place] - [address] [facility] [place] [address] Laboratory Report Ordering Provider Test Date Status ANNJOSE 06/06/2024 23:31:00 Final Observation Date Value Abnormality Reference (Units ) Status Calcium.ionized [Moles/volume] in Serum or Plasma by Ion-selective membrane electrode (ISE) 06/06/2024 23:31:00 0.85 Below low normal 1.13-1.32 (mmol/L) Final This test was developed and its performance characteristics dtermined by [employer]. It has not been cleared or approved by the US Food and Drug Administration Performing Location LABORATORY [facility] [place] - [address] [place] [address]
--- OUTSIDE RECORDS SUMMARY | 2024-07-05 06:45 | External Medical Summary ---
Author Name Unknown Address Unknown Organization K01:[place]ORY [facility] [place] [address] [place] [address] Laboratory Report Ordering Provider Test Date Status MARIELLE DU 06/06/2024 21:06:00 Final Observation Date Value Abnormality Reference (Units ) Status Calcium.ionized [Moles/volume] in Serum or Plasma by Ion-selective membrane electrode (ISE) 06/06/2024 21:06:00 0.81 Below low normal 1.13-1.32 (mmol/L) Final This test was developed and its performance characteristics dtermined by [employer]. It has not been cleared or approved by the US Food and Drug Administration Performing Location LABORATORY [facility] [place] [address] [place] [address]
--- OUTSIDE RECORDS SUMMARY | 2024-07-05 06:45 | External Medical Summary ---
Author Name Unknown Address Unknown Organization K01:LABORATORY [facility] [place] - [address] [facility] [place] [address] Laboratory Report Ordering Provider Test Date Status ANNJOSE 06/07/2024 11:18:00 Final Observation Date Value Abnormality Reference (Units ) Status Calcium.ionized [Moles/volume] in Serum or Plasma by Ion-selective membrane electrode (ISE) 06/07/2024 11:18:00 1.10 Below low normal 1.13-1.32 (mmol/L) Final This test was developed and its performance characteristics dtermined by [employer]. It has not been cleared or approved by the [place] Food and Drug Administration Performing Location LABORATORY [facility] [place] - [address] [place] [address]
--- OUTSIDE RECORDS SUMMARY | 2024-07-05 06:45 | External Medical Summary ---
Author Name Unknown Address Unknown Organization K01:LABORATORY [facility] [place] - [address] [facility] [place] [address] Laboratory Report Ordering Provider Test Date Status ANNJOSE 06/07/2024 05:54:00 Final Observation Date Value Abnormality Reference (Units ) Status Calcium.ionized [Moles/volume] in Serum or Plasma by Ion-selective membrane electrode (ISE) 06/07/2024 05:54:00 1.00 Below low normal 1.13-1.32 (mmol/L) Final This test was developed and its performance characteristics dtermined by [employer] It has not been cleared or approved by the [place] Food and Drug Administration Performing Location LABORATORY [facility] [place] - [address] [place] [address]
--- OUTSIDE RECORDS SUMMARY | 2024-07-05 06:45 | External Medical Summary ---
Author Name Unknown Address Unknown Organization K01:LABORATORY [facility] - [address] [address] Laboratory Report Ordering Provider Test Date Status PATRICIA ALBERTO 06/06/2024 05:12:00 Final Observation Date Value Abnormality Reference (Units ) Status Ferritin 06/06/2024 05:12:00 6885 Above high normal 13 -150 (ng/mL) Final Performing Location LAB[facility] - [address] [place] [address]
--- OUTSIDE RECORDS SUMMARY | 2024-07-05 06:45 | External Medical Summary ---
Author Name Unknown Address Unknown Organization K01:LABORATORY [facility] [place] - [address] [facility] [place] [address] Laboratory Report Ordering Provider Test Date Status ANNJOSE 06/07/2024 08:56:00 Final Observation Date Value Abnormality Reference (Units ) Status Calcium.ionized [Moles/volume] in Serum or Plasma by Ion-selective membrane electrode (ISE) 06/07/2024 08:56:00 1.07 Below low normal 1.13-1.32 (mmol/L) Final This test was developed and its performance characteristics dtermined by [employer]. It has not been cleared or approved by the US Food and Drug Administration Performing Location LABORATORY [facility] [place] - [address] [place] [address]
--- OUTSIDE RECORDS SUMMARY | 2024-07-05 06:45 | External Medical Summary ---
Author Name Unknown Address Unknown Organization K01:LABORATORY [facility] - [address] [address] Laboratory Report Ordering Provider Test Date Status MICHAEL BARBA 06/08/2024 05:22:00 Final Observation Date Value Abnormality Reference (Units ) Status C4 06/08/2024 05:22:00 10 10-40 (mg/ dL) Final Performing Location LAB[facility] - [address] [address]
--- OUTSIDE RECORDS SUMMARY | 2024-07-05 06:45 | External Medical Summary ---
Author Name Unknown Address Unknown Organization K01:LABORATORY [facility] - [address] [address] Laboratory Report Ordering Provider Test Date Status MICHAEL BARBA 06/06/2024 05:12:00 Final Deficient: <20 ng/mL
Ins ufficient: 20-29 ng/mL
Recommended/Optimum:30-50 ng/mL

Vitamin D intoxication is rare. If suspicious of Vitamin D toxicity, evaluation of serum Calcium and PTH is recommended. Observation Date Value Abnormality Reference (Units ) Status 25-OH Vitamin D total 06/06/2024 05:12:00 <6 Below low normal >19 (ng/mL) Final Performing Location [facility] - [address] [address]
--- OUTSIDE RECORDS SUMMARY | 2024-07-05 06:45 | External Medical Summary ---
Author Name Unknown Address Unknown Organization K01:LABORATORY [facility] [place] [address] [facility] [address] Laboratory Report Ordering Provider Test Date Status MICHAEL BARBA 06/06/2024 05:12:00 Final Observation Date Value Abnormality Reference (Units ) Status SYNC LEUKOCYTES IN BLOOD BY AUTOMATED COUNT 06/06/2024 05:12:00 3.28 Below low normal 4.00-10.80 (K/uL) Final Segs 06/06/2024 05:12:00 79.8 Above high normal 40.0-75.0 (%) Final Lymphs % 06/06/2024 05:12:00 11.0 Below low normal 18.0-42.0 (%) Final Monos 06/06/2024 05:12:00 3.4 1.0-11.0 (%) Final Eosinophils 06/06/2024 05:12:00 0.0 0.0-6.0 (%) Final Basos 06/06/2024 05:12:00 0.3 0.0-2.0 (%) Final Immature Granulocyte, Percent 06/06/2024 05:12:00 5.5 Above high normal 0.0-2.0 (%) Final Absolute Segs 06/06/2024 05:12:00 2.62 1.80-7.70 (K/uL) Final Lymphs, absolute 06/06/2024 05:12:00 0.36 Below low normal 1.00-4.80 (K/ul) Final Monos, Abs 06/06/2024 05:12:00 0.11 0.00-1.10 (K/uL) Final Eos, Abs 06/06/2024 05:12:00 0.00 0.00-0.70 (K/uL) Final Basos, Abs 06/06/2024 05:12:00 0.01 0.00-0.20 (K/uL) Final Immature Granulocytes, Number 06/06/2024 05:12:00 0.18 0.00-0.20 (K/uL) Final Performing Location LABORATORY [facility] [place] - [facility] [place] [address]
--- OUTSIDE RECORDS SUMMARY | 2024-07-05 06:45 | External Medical Summary ---
Author Name Unknown Address Unknown Organization K01:LAB[facility]ATORY [facility] - [address] [address] Laboratory Report Ordering Provider Test Date Status PATRICIA ALBERTO 06/07/2024 05:54:00 Final Observation Date Value Abnormality Reference (Units ) Status Ferritin 06/07/2024 05:54:00 6328 Above high normal 13 -150 (ng/mL) Final Performing Location LAB[facility] - [address] [place] [address]
--- OUTSIDE RECORDS SUMMARY | 2024-07-05 06:45 | External Medical Summary ---
Author Name Unknown Address Unknown Organization K01:LABORATORY [facility] [place] [address] [place] [address] Laboratory Report Ordering Provider Test Date Status PATRICIA ALBERTO 06/06/2024 21:06:00 Final Observation Date Value Abnormality Reference (Units ) Status BUN 06/06/2024 21:06:00 8 6-20 (mg/dL) Final Creatinine 06/06/2024 21:06:00 0.3 Below low normal 0.5-1.0 (mg/dL) Final Glomerular filtration rate/1.73 sq M.predicted [Volume Rate/Area] in Serum, Plasma or Blood by Creatinine-based formula (CKD-EPI) 06/06/2024 21:06:00 >90 >=60 (mL/min) Final eGFR is calculated based on the CKD-EPI 2020 equation. Sodium 06/06/2024 21:06:00 136 135-146 (m mol/L) Final Potassium 06/06/2024 21:06:00 4.0 3.5-5.1 (m mol/L) Final Cl 06/06/2024 21:06:00 105 98-107 (mm ol/L) Final CO2 06/06/2024 21:06:00 20 Below low normal 22- 32 (mmol/L) Final Anion gap 06/06/2024 21:06:00 11 7-15 (mmol /L) Final Glucose 06/06/2024 21:06:00 102 70-120 (mg /dL) Final Calcium 06/06/2024 21:06:00 5.0 Below lower panic li mits 8.4-10.2 (mg/dL) Final Performing Location LABORATORY [facility] [place] [address] [place] [address]
--- OUTSIDE RECORDS SUMMARY | 2024-07-05 06:45 | External Medical Summary ---
Author Name Unknown Address Unknown Organization K01:LAB[facility]ORY [facility] - [address] [place] [address] Laboratory Report Ordering Provider Test Date Status JOSE JUAREZ 06/07/2024 05:54:00 Final Observation Date Value Abnormality Reference (Units ) Status Magnesium 06/07/2024 05:54:00 2.2 1.5-2.6 (m g/dL) Final Performing Location [facility] - [address] [place] [address]
--- OUTSIDE RECORDS SUMMARY | 2024-07-05 06:45 | External Medical Summary ---
Author Name Unknown Address Unknown Organization K01:LAB[facility]ORY [facility] - [address] [place] [address] Laboratory Report Ordering Provider Test Date Status JOSE JUAREZ 06/08/2024 05:22:00 Final Observation Date Value Abnormality Reference (Units ) Status Phosphate 06/08/2024 05:22:00 2.2 Below low normal 2.5 -4.8 (mg/dL) Final Performing Location [facility] - [address] [address]
--- OUTSIDE RECORDS SUMMARY | 2024-07-05 06:45 | External Medical Summary ---
Author Name Unknown Address Unknown Organization K01:LABORATORY [facility] [place] - [address] [place] [address] Laboratory Report Ordering Provider Test Date Status JEFFRY,CULLENDUANEOYO 06/06/2024 05:12:00 Final Observation Date Value Abnormality Reference (Units ) Status Parathyrin.intact [Mass/volume] in Serum or Plasma 06/06/2024 05:12:00 74 Above high normal 15-65 (pg/mL) Final Performing Location LABORATORY [facility] [place] - [address] [place] [address]
--- OUTSIDE RECORDS SUMMARY | 2024-07-05 06:45 | External Medical Summary ---
Author Name Unknown Address Unknown Organization K01:LABORATORY [place] [address] [address] [facility] [address] [facility] [address] Laboratory Report Ordering Provider Test Date Status MICHAEL BARBA 06/06/2024 16:30:00 Final Results rechecked.
Observation Date Value Abnormality Reference (Units ) Status Calcium.ionized [Moles/volume] in Serum or Plasma by Ion-selective membrane electrode (ISE) 06/06/2024 16:30:00 0.66 Below lower panic limits 1.13-1.32 (mmol/L) Final This test was developed and its performance characteristics dtermined by [employer]. It has not been cleared or approved by the [place] Food and Drug Administration Performing Location [address]ATORY [address] [facility] [address]
--- OUTSIDE RECORDS SUMMARY | 2024-07-05 06:45 | External Medical Summary ---
Author Name Unknown Address Unknown Organization [id number]:LAB[place]ATORY [facility] [place] [address] [address] Laboratory Report Ordering Provider Test Date Status PATRICIA ALBERTO 06/07/2024 05:54:00 Final Observation Date Value Abnormality Reference (Units ) Status CRP, low-sensitivity 06/07/2024 05:54:00 37 Above high normal <=5 (mg/L) Final Performing Location [facility] - [address] [address]
--- OUTSIDE RECORDS SUMMARY | 2024-07-05 06:45 | External Medical Summary ---
Author Name Unknown Address Unknown Organization [id number]:LABORATORY [facility] – [place] - [address] [address] Laboratory Report Ordering Provider Test Date Status PATRICIA ALBERTO 06/07/2024 05:54:00 Final Observation Date Value Abnormality Reference (Units ) Status Erythrocyte sedimentation rate by Photometric method 06/07/2024 05:54:00 14 <20 (mm/hour) Final Performing Location LABORATORY [facility] [place] - [address] [address]
--- OUTSIDE RECORDS SUMMARY | 2024-07-05 06:45 | External Medical Summary ---
Author Name Unknown Address Unknown Organization [id number]:LABORATORY [facility] [place] - [address] [place] [address] Laboratory Report Ordering Provider Test Date Status REMYPATRICIA 06/06/2024 05:12:00 Final Observation Date Value Abnormality Reference (Units ) Status Erythrocyte sedimentation rate by Photometric method 06/06/2024 05:12:00 35 Above high normal <20 (mm/hour) Final Performing Location LABORATORY [facility] [place] - [address] [place] [address]
--- OUTSIDE RECORDS SUMMARY | 2024-07-05 06:45 | External Medical Summary ---
Author Name Unknown Address Unknown Organization K01:LABORATORY [facility] – [place] - [address] [address] Laboratory Report Ordering Provider Test Date Status MICHAEL BARBA 06/07/2024 05:54:00 Final Observation Date Value Abnormality Reference (Units ) Status Complement C3c [Mass/volume] in Serum or Plasma 06/07/2024 05:54:00 60 Below low normal 90-180 (mg/dL) Final Performing Location LABORATORY [facility] – [place] - [address] [address]
--- OUTSIDE RECORDS SUMMARY | 2024-07-05 06:45 | External Medical Summary ---
Author Name Unknown Address Unknown Organization K01:[facility]ATORY [facility] - [address] [address] Laboratory Report Ordering Provider Test Date Status MICHAEL BARBA 06/07/2024 05:54:00 Final Observation Date Value Abnormality Reference (Units ) Status C4 06/07/2024 05:54:00 10 10-40 (mg/ dL) Final Performing Location [facility] - [address] [address]
--- OUTSIDE RECORDS SUMMARY | 2024-07-05 06:45 | External Medical Summary ---
Author Name Unknown Address Unknown Organization K01:LABORATORY [facility] - [address] [address] Laboratory Report Ordering Provider Test Date Status REMYPATRICIA 06/06/2024 05:12:00 Final Observation Date Value Abnormality Reference (Units ) Status Triglyceride 06/06/2024 05:12:00 465 Above high normal <=174 (mg/dL) Final Triglyceride Reference Range s (mg/dL):
<150 Acceptable
150-174 Borderline high
175-499 High
>=500 Very high Performing Location LABORATORY [facility] - [address] [place] [address]
--- OUTSIDE RECORDS SUMMARY | 2024-07-05 06:45 | External Medical Summary ---
Author Name Unknown Address Unknown Organization K01:LAB[facility]ATORY [facility] - [address] [address] Laboratory Report Ordering Provider Test Date Status PATRICIA ALBERTO 06/06/2024 21:06:00 Final Observation Date Value Abnormality Reference (Units ) Status Magnesium 06/06/2024 21:06:00 2.3 1.5-2.6 (m g/dL) Final Performing Location [facility] - [address] [address]
--- OUTSIDE RECORDS SUMMARY | 2024-07-05 06:45 | External Medical Summary ---
Author Name Unknown Address Unknown Organization : Laboratory Report Ordering Provider Test Date Status ECHO SCOTT 06/07/2024 05:54:00 Final Observation Date Value Abnormality Reference (Units ) Status 1,25-Dihydroxyvitamin D [Mass/volume] in Serum or Plasma 06/07/2024 05:54:00 57 18-72 (pg/mL) Final Calcitriol [Mass/volume] in Serum or Plasma 06/07/2024 05:54:00 42 (pg/mL) Final 1,25-Dihydroxyvitamin D2 [Mass/volume] in Serum or Plasma 06/07/2024 05:54:00 15 (pg/mL) Final Vitamin D3, 1,25(OH)2 indica mayra both endogenous
production and supplementation. Vitamin D2, 1,25(OH)2
is an indicator of exogenous sources, such as diet or
supplementation. Interpretation and therapy are based
on measurement of Vitamin D,1,25(OH)2, Total.
This test was developed and its analytical
performance characteristics have been determined
by [employer], [place], [place].
It has not been cleared or approved by the FDA. This
assay has been validated pursuant to the CLIA
regulations and is used for clinical purposes.

Test Performed at:
[facility] [facility]
[id number]
[place] [address]
Rei Kimball M.D., Ph.D.,Director of Laboratories Performing Location
--- OUTSIDE RECORDS SUMMARY | 2024-07-05 06:46 | External Medical Summary ---
Author Name Unknown Address Unknown Organization K01:LABORATORY [facility] – [place] - [address] [address] Laboratory Report Ordering Provider Test Date Status PATRICIA ALBERTO 06/05/2024 05:51:00 Final Warfarin Therapy
INR: 2 .0-3.0 conventional anticoagulation
INR: 2.5- 3.5 high intensity anticoagulation Observation Date Value Abnormality Reference (Units ) Status PT 06/05/2024 05:51:00 13.0 11.6-15.2 (seconds) Final INR 06/05/2024 05:51:00 1.0 0.8-1.2 Final Performing Location LABORATORY [facility] [place] - [address] [address]
--- OUTSIDE RECORDS SUMMARY | 2024-07-05 06:46 | External Medical Summary ---
Author Name Unknown Address Unknown Organization K01:LABORATORY [facility] - [address] [place] [address] Laboratory Report Ordering Provider Test Date Status RENE CARLSON 06/04/2024 21:58:00 Final Observation Date Value Abnormality Reference (Units ) Status Neutrophil cytoplasmic Ab [Presence] in Serum by Immunofluorescence 06/04/2024 21:58:00 Negative Negative Final Neutrophil cytoplasmic Ab [Presence] in Serum by Immunofluorescence 06/04/2024 21:58:00 Negative Negative Final Negative for ANCA. Performing Location LABORATORY [facility] - [address] [place] [address]
--- OUTSIDE RECORDS SUMMARY | 2024-07-05 06:46 | External Medical Summary ---
Author Name Unknown Address Unknown Organization K01:LABORATORY [facility] [place] - [address] [address] Laboratory Report Ordering Provider Test Date Status RENE CARLSON 06/04/2024 05:43:00 Final Exclude Heart Failure: <300 pg/mL
Diagnose Heart Failure:
Age <50 yr: >450 pg/mL
50-75 yr: >900 pg/mL
>75 yr: >1800 pg/mL
GFR is 30-59 mL/min: >1200 pg/mL or Age- adjusted values
GFR <30 mL/min: do not use, not reliable

Prognostic threshold: 1000 pg/mL Observation Date Value Abnormality Reference (Units ) Status BNP, Pro-hormone 06/04/2024 05:43:00 1482 Above high no rmal <300 (pg/mL) Final Performing Location LABORATORY [facility] [place] - [address] [address]
--- OUTSIDE RECORDS SUMMARY | 2024-07-05 06:46 | External Medical Summary ---
Author Name Unknown Address Unknown Organization K01:LABORATORY [facility] – [place] - [address] [facility] [address] Laboratory Report Ordering Provider Test Date Status PATRICIA ALBERTO 06/05/2024 05:51:00 Final Observation Date Value Abnormality Reference (Units ) Status BUN 06/05/2024 05:51:00 10 6-20 (mg/dL) Final Creatinine 06/05/2024 05:51:00 0.4 Below low normal 0.5-1.0 (mg/dL) Final Glomerular filtration rate/1.73 sq M.predicted [Volume Rate/Area] in Serum, Plasma or Blood by Creatinine-based formula (CKD-EPI) 06/05/2024 05:51:00 >90 >=60 (mL/min) Final eGFR is calculated based on the CKD-EPI 2020 equation. Sodium 06/05/2024 05:51:00 137 135-146 (m mol/L) Final Potassium 06/05/2024 05:51:00 3.3 Below low normal 3.5 -5.1 (mmol/L) Final Cl 06/05/2024 05:51:00 107 98-107 (mm ol/L) Final CO2 06/05/2024 05:51:00 19 Below low normal 22- 32 (mmol/L) Final Anion gap 06/05/2024 05:51:00 11 7-15 (mmol /L) Final Glucose 06/05/2024 05:51:00 86 70-120 (mg /dL) Final Albumin 06/05/2024 05:51:00 2.2 Below low normal 3.8 -5.0 (g/dL) Final AST (Aspartate aminotransferase) 06/05/2024 05:51:00 121 Above high normal 10-35 (U/L) Final Alk Phos 06/05/2024 05:51:00 89 35-130 (U/ L) Final Bilirubin, Total 06/05/2024 05:51:00 0.2 <=1 .2 (mg/dL) Final Calcium 06/05/2024 05:51:00 6.3 Below low normal 8.4 -10.2 (mg/dL) Final Protein 06/05/2024 05:51:00 5.1 Below low normal 6.0 -8.3 (g/dL) Final ALT (Alanine aminotransferase) 06/05/2024 05:51:00 43 Above high normal 10-35 (U/L) Final Performing Location LABORATORY [facility] [place] - [address] [facility] [address]
--- OUTSIDE RECORDS SUMMARY | 2024-07-05 06:46 | External Medical Summary ---
Author Name Unknown Address Unknown Organization : Laboratory Report Ordering Provider Test Date Status EMORY GONZALEZ 06/04/2024 08:38:00 Final COLLECT:
1 EDTA LAVENDER TUBE
CENTRIFUGE
ALIQUOT PLASMA AND POOJA LABEL "PLASMA"
FREEZE Observation Date Value Abnormality Reference (Units ) Status REFERENCE LAB SCANNED REPORT 06/04/2024 08:38:00 RESULT SCAN Final Performing Location
--- OUTSIDE RECORDS SUMMARY | 2024-07-05 06:46 | External Medical Summary | Summary of Care ---
Author Name Unknown Organization [facility] Address [address] [place] [address] Phone [phone] Care Team Providers Care Spooling Supervisor Name Role Phone Payal Myers MD Primary Care Provider [phone] Reason for Visit * Auth/Cert Specialty Diagnoses / Procedures Referred By Miko t Referred To Contact Diagnoses Arthritis Potential Still's disease Deanna Mandel, [address] [facility] [place] [address] Phone: tel: fax: [facility], [facility] [place] [address] [place] [address] Referral ID Status Reason Start Date Expiration Date Visits Re quested Visits Authorized [id number] Encounter Details Date Type Department Care Team (Latest Contact Info) Description 06/04/2024 10:10 AM EST - 06/04/2024 11:59 PM [facility] Hospital Encounter Cardiac Studies [facility] 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 [address] [place] [address] Payal Myers MD [address] [facility] [place] [address] 08/31/2024 8:20 AM EST Office Visit [facility] [address] [place] [address] Payal Myers MD [address] [facility] [place] [address] Health Maintenance Due Date Last Done Comments COVID-19 Vaccine (3 - Moderna risk series) 01/01/2021 12/04/2020, 11/06/2020 Depression Screening [...] Procedure Name Priority Date/Time Associated Diagnosis Comments ECHO, COMPLETE (2D), TRANS-THORACIC STAT 06/04/2024 10:42 AM EST Chest pain, unspecified type documented in this encounter Results * ECHO, COMPLETE (2D), TRANS-THORACIC (06/04/2024 10:42 AM EST) LEFT VENTRICULAR EJECTION FRACTION 55 % [facility] 06/04/2024 10:2 3 AM EST Flex Nunez MD ECHOCARDIOLOGY Final Result [facility] documented in this encounter Additional Health Concerns Infection Onset Date Last Indicated Resolved Time Respiratory Rule-Out 06/04/2024 06/04/2024 024 12:22 PM EST COVID-19 Rule-Out 06/04/2024 06/04/2024 06/04/2024 12:22 PM EST documented as of this encounter Advance Directives * Full Code (Latest Code Status on File) Date Activated Date Inactivated Comments 06/02/2024 8:01 PM This order re flects the patients wishes and were consensually agreed upon. Question Answer Comments Discussion of Advance Directives occurred with: Patient Care Teams Spooling Supervisor Relationship Specialty Start Date End Date Payal Myers MD [address] [facility] [place], [place] [id number] PCP - General Family Medicine 01/21/24 documented as of this encounter
--- OUTSIDE RECORDS SUMMARY | 2024-07-05 06:46 | External Medical Summary ---
Author Name Unknown Address Unknown Organization : Laboratory Report Ordering Provider Test Date Status EMORY GONZALEZ 06/04/2024 08:37:00 Final COLLECT:
1 RED TOP TUBE< br/>CENTRIFUGE
ALIQUOT INTO TWO SEPARATE ALIQUOTS MARKED "SERUM"
FREEZE Observation Date Value Abnormality Reference (Units ) Status REFERENCE LAB SCANNED REPORT 06/04/2024 08:37:00 RESULT SCAN Final Performing Location
--- OUTSIDE RECORDS SUMMARY | 2024-07-05 06:46 | External Medical Summary ---
Author Name Unknown Address Unknown Organization K01:LABORATORY [facility] [place] - [address] [address] Laboratory Report Ordering Provider Test Date Status FREDAMARKLUIZ 06/04/2024 12:05:00 Final Observation Date Value Abnormality Reference (Units ) Status Lactic Acid 06/04/2024 12:05:00 0.9 0.4-2.0 (mmol/L) Final Performing Location [facility] - [address] [address]
--- OUTSIDE RECORDS SUMMARY | 2024-07-05 06:46 | External Medical Summary ---
Author Name Unknown Address Unknown Organization K01:LAB[place]ATORY [facility] [place] [facility] [address] [place] [address] Laboratory Report Ordering Provider Test Date Status CELESTINA JHA 06/05/2024 08:58:00 Final Observation Date Value Abnormality Reference (Units ) Status DNA double strand Ab [Presence] in Serum 06/05/2024 08:58:00 Positive Abnormal Negative Final DNA double strand Ab [Titer] in Serum by Immunofluorescence (IF) Boubacar macias 06/05/2024 08:58:00 1:10 <1:10 (Titer) Final Performing Location LABORATORY [facility] [place] [facility] [place] [address]
--- OUTSIDE RECORDS SUMMARY | 2024-07-05 06:46 | External Medical Summary ---
Author Name Unknown Address Unknown Organization K01:LABORATORY [facility] - [address] [place] [address] Laboratory Report Ordering Provider Test Date Status MICHAEL BARBA 06/04/2024 11:33:00 Final Observation Date Value Abnormality Reference (Units ) Status C4 06/04/2024 11:33:00 19 10-40 (mg/ dL) Final Performing Location LAB[facility]ORY [facility] - [address] [place] [address]
--- OUTSIDE RECORDS SUMMARY | 2024-07-05 06:46 | External Medical Summary ---
Author Name Unknown Address Unknown Organization K01:LABORATORY [facility] [place] [facility] [address] [address] Laboratory Report Ordering Provider Test Date Status RENE CARLSON 06/04/2024 21:58:00 Final Observation Date Value Abnormality Reference (Units ) Status Thyroperoxidase Ab [Units/volume] in Serum or Plasma by Immunoassay 06/04/2024 21:58:00 7.5 <34.0 (IU/mL) Final Performing Location LABORATORY [facility] [place] [facility] [address] [place] [address]
--- OUTSIDE RECORDS SUMMARY | 2024-07-05 06:46 | External Medical Summary ---
Author Name Unknown Address Unknown Organization K01:LABORATORY [facility] - [address] [place] [address] Laboratory Report Ordering Provider Test Date Status RENE CARLSON 06/04/2024 11:04:56 Final ADMITTED patient Observation Date Value Abnormality Reference (Units ) Status Adenovirus DNA [Presence] in Nasopharynx by TRE with non-probe detection 06/04/2024 11:04:56 Negative Negative Final Human coronavirus 229E RNA [Presence] in Nasopharynx by TRE with non-probe detection 06/04/2024 11:04:56 Negative Negative Final Human coronavirus HKU1 RNA [Presence] in Nasopharynx by TRE with non-probe detection 06/04/2024 11:04:56 Negative Negative Final Human coronavirus NL63 RNA [Presence] in Nasopharynx by TRE with non-probe detection 06/04/2024 11:04:56 Negative Negative Final Human coronavirus OC43 RNA [Presence] in Nasopharynx by TRE with non-probe detection 06/04/2024 11:04:56 Negative Negative Final SARS-CoV-2 (COVID-19) RNA [Presence] in Nasopharynx by TRE with non-probe detection 06/04/2024 11:04:56 Negative Negative Final Human metapneumovirus RNA [Presence] in Nasopharynx by TRE with non-probe detection 06/04/2024 11:04:56 Negative Negative Final Rhinovirus+Enterovirus RNA [Presence] in Nasopharynx by TRE with non-probe detection 06/04/2024 11:04:56 Negative Negative Final Influenza virus A RNA [Presence] in Nasopharynx by TRE with non-probe detection 06/04/2024 11:04:56 Negative Negative Final Influenza virus B RNA [Presence] in Nasopharynx by TRE with non-probe detection 06/04/2024 11:04:56 Negative Negative Final Parainfluenza virus 1 RNA [Presence] in Nasopharynx by TRE with non-probe detection 06/04/2024 11:04:56 Negative Negative Final Parainfluenza virus 2 RNA [Presence] in Nasopharynx by TRE with non-probe detection 06/04/2024 11:04:56 Negative Negative Final Parainfluenza virus 3 RNA [Presence] in Nasopharynx by TRE with non-probe detection 06/04/2024 11:04:56 Negative Negative Final Parainfluenza virus 4 RNA [Presence] in Nasopharynx by TRE with non-probe detection 06/04/2024 11:04:56 Negative Negative Final Respiratory syncytial virus RNA [Presence] in Nasopharynx by TRE with non-probe detection 06/04/2024 11:04:56 Negative Negative Final Bordetella pertussis.pertussis toxin promoter region [Presence] in Nasopharynx by TRE with non-probe detection 06/04/2024 11:04:56 Negative Negative Final Chlamydophila pneumoniae DNA [Presence] in Nasopharynx by TRE with non-probe detection 06/04/2024 11:04:56 Negative Negative Final Mycoplasma pneumoniae DNA [Presence] in Nasopharynx by TRE with non-probe detection 06/04/2024 11:04:56 Negative Negative Final Bordetella parapertussis [id number] DNA [Presence] in Nasopharynx by TRE with non-probe detection 06/04/2024 11:04:56 Negative Negative Final The primers that detect Rhin ovirus may cross react with some Enterorviruses. The validation of bronchial specimens, tracheal aspirates, and throats for this assay was developed and performance characteristics determined by [employer]. The validation of alternate specimen types has not been cleared or approved by the U.S. Food and Drug Administration (FDA). It has been determined that such clearance or approval is not necessary. [facility] Location LABORATORY [facility] - [facility] [address] [facility] [facility] [address]
--- OUTSIDE RECORDS SUMMARY | 2024-07-05 06:46 | External Medical Summary ---
Author Name Unknown Address Unknown Organization K01:LABORATORY [facility] - [address] [place] [address] Laboratory Report Ordering Provider Test Date Status RICHMOND ALBERTOVAK 06/05/2024 05:51:00 Final Observation Date Value Abnormality Reference (Units ) Status Triglyceride 06/05/2024 05:51:00 507 Above high normal <=174 (mg/dL) Final Triglyceride Reference Range s (mg/dL):
<150 Acceptable
150-174 Borderline high
175-499 High
>=500 Very high Performing Location LABORATORY [facility] - [address] [place] [address]
--- OUTSIDE RECORDS SUMMARY | 2024-07-05 06:46 | External Medical Summary ---
Author Name Unknown Address Unknown Organization K01:LABORATORY [facility] [place] - [address] [address] Laboratory Report Ordering Provider Test Date Status FREDAMARKLUIZ 06/04/2024 11:33:00 Final Observation Date Value Abnormality Reference (Units ) Status Complement C3c [Mass/volume] in Serum or Plasma 06/04/2024 11:33:00 85 Below low normal 90-180 (mg/dL) Final Performing Location LABORATORY [facility] [place] - [address] [address]
--- OUTSIDE RECORDS SUMMARY | 2024-07-05 06:46 | External Medical Summary ---
Author Name Unknown Address Unknown Organization : Laboratory Report Ordering Provider Test Date Status YOSELIN CALDERÓN 06/04/2024 14:26:00 Final Observation Date Value Abnormality Reference (Units ) Status Performing Location
--- OUTSIDE RECORDS SUMMARY | 2024-07-05 06:46 | External Medical Summary ---
Author Name Unknown Address Unknown Organization K01:LABORATORY [facility] [place] [address] [place] [address] Laboratory Report Ordering Provider Test Date Status SHAY CARLSONEL 06/04/2024 11:33:00 Final Observation Date Value Abnormality Reference (Units ) Status Lipase 06/04/2024 11:33:00 2652 Above high normal 13 -60 (U/L) Final Performing Location [facility]ORY [facility] - [address] [place] [address]
--- OUTSIDE RECORDS SUMMARY | 2024-07-05 06:46 | External Medical Summary ---
Author Name Unknown Address Unknown Organization : Laboratory Report Ordering Provider Test Date Status EMORY GONZALEZ 06/05/2024 08:58:00 Final Observation Date Value Abnormality Reference (Units ) Status IgG subclass 1 06/05/2024 08:58:00 854 382-9 29 (mg/dL) Final IgG subclass 2 06/05/2024 08:58:00 102 Below low kevin l 241-700 (mg/dL) Final IgG subclass 3 06/05/2024 08:58:00 66 22-17 8 (mg/dL) Final IgG subclass 4 06/05/2024 08:58:00 8.9 4.0-8 6.0 (mg/dL) Final IgG 06/05/2024 08:58:00 4552 922-2208 ( mg/dL) Final Test Performed at:
[facility]
[address] [facility]
[place] [address]
Rei Kimball M.D., Ph.D.,Director of Laboratories Performing Location
--- OUTSIDE RECORDS SUMMARY | 2024-07-05 06:46 | External Medical Summary ---
Author Name Unknown Address Unknown Organization K01:LABORATORY [facility] - [address] [place] [address] Laboratory Report Ordering Provider Test Date Status YOSELIN CALDERÓN 06/04/2024 14:26:00 Final Observation Date Value Abnormality Reference (Units ) Status REFERENCE LAB SCANNED REPORT 06/04/2024 14:26:00 See Scanned Report Final Performing Location LAB[facility]ORY [facility] - [address] [place] [address]
--- OUTSIDE RECORDS SUMMARY | 2024-07-05 06:46 | External Medical Summary ---
Author Name Unknown Address Unknown Organization K01:LABORATORY [facility] [place] [address] [address] Laboratory Report Ordering Provider Test Date Status PATRICIA ALBERTO 06/05/2024 05:51:00 Final Anticoagulation may affect t esting. Refer to [employer] Test Catalog for a list of effects. Observation Date Value Abnormality Reference (Units ) Status aPTT panel - Platelet poor plasma 06/05/2024 05:51:00 36 21-38 (seconds) Final Performing Location LABORATORY [facility] [place] [address] [place] [address]
--- OUTSIDE RECORDS SUMMARY | 2024-07-05 06:46 | External Medical Summary ---
Author Name Unknown Address Unknown Organization : Laboratory Report Ordering Provider Test Date Status MICHAEL BARBA 06/05/2024 06:44:00 Final Observation Date Value Abnormality Reference (Units ) Status FILARIA ANTIBODY (IGG4) 06/05/2024 06:44:00 0.54 (INDEX) Final REFERENCE RANGE: <2.50
I NTERPRETIVE CRITERIA:
<2.50 NEGATIVE
>=2.50 POSITIVE
This assay [...] analytical performance
characteristics have been determined by [employer].
It has not been cleared or approved by the U.S. Food and
Drug Administration. This assay has been validated pursuant
to the CLIA regulations and is used for clinical purposes.
Test performed by [employer]
[address],
[place] [address]

Rack Washer: Svetlana Gruber MD,PHD,THERON
Test Reported by [facility],
[employer] [place],
[address] [place], [place]
Rei Kimball M.D., Ph.D., Director of Laboratories
, [facility] [id number] Performing Location
--- OUTSIDE RECORDS SUMMARY | 2024-07-05 06:46 | External Medical Summary ---
Author Name Unknown Address Unknown Organization [id number]:LABORATORY [facility] [place] - [facility] [place] [address] Laboratory Report Ordering Provider Test Date Status MICHAEL BARBA 06/05/2024 08:58:00 Final Observation Date Value Abnormality Reference (Units) Status Nuclear Ab [Presence] in Serum by Immunofluorescence 06/05/2024 08:58:00 Positive Abnormal Negative Final DESTINY, dilution 06/05/2024 08:58:00 1:640 <1:80 (Titer) Final DESTINY, pattern 06/05/2024 08:58:00 Cytoplasmic Fibrillar Final Performing Location LABORATORY [facility] [place] - [address] [place] [address]
--- OUTSIDE RECORDS SUMMARY | 2024-07-05 06:46 | External Medical Summary ---
Author Name Unknown Address Unknown Organization K01:LABORATORY C - [address] [place] [address] Laboratory Report Ordering Provider Test Date Status REMYPATRICIA 06/04/2024 05:43:00 Final Observation Date Value Abnormality Reference (Units ) Status Triglyceride 06/04/2024 05:43:00 411 Above high normal <=174 (mg/dL) Final Triglyceride Reference Range s (mg/dL):
<150 Acceptable
150-174 Borderline high
175-499 High
>=500 Very high Performing Location LABORATORY C - [address] [place] [address]
--- OUTSIDE RECORDS SUMMARY | 2024-07-05 06:46 | External Medical Summary ---
Author Name Unknown Address Unknown Organization [id number]:LABORATORY [facility] [place] - [address] [place] [address] Laboratory Report Ordering Provider Test Date Status RICHMOND ALBERTOVAK 06/05/2024 05:51:00 Final Observation Date Value Abnormality Reference (Units ) Status Erythrocyte sedimentation rate by Photometric method 06/05/2024 05:51:00 32 Above high normal <20 (mm/hour) Final Performing Location LABORATORY [facility] [place] - [address] [place] [address]
--- OUTSIDE RECORDS SUMMARY | 2024-07-05 06:46 | External Medical Summary ---
Author Name Unknown Address Unknown Organization [id number]:[place] [facility] [place] [address] [address] Laboratory Report Ordering Provider Test Date Status MARCEL YOUNG 06/05/2024 08:58:00 Final Observation Date Value Abnormality Reference (Units ) Status Cystatin C [Mass/volume] in Serum or Plasma 06/05/2024 08:58:00 1.40 Above high normal 0.63-1.03 (mg/L) Final Glomerular filtration rate/1.73 sq M.predicted [Volume Rate/Area] in Serum, Plasma or Blood by Cystatin-based formula 06/05/2024 08:58:00 53 Below low normal >=60 (mL/min) Final eGFR is calculated based on the CKD-EPI 2012 equation. Performing Location [place] [facility] [place] [address] [place] [id number]
--- OUTSIDE RECORDS SUMMARY | 2024-07-05 06:46 | External Medical Summary ---
Author Name Unknown Address Unknown Organization : Laboratory Report Ordering Provider Test Date Status RENE CARLSON 06/04/2024 21:58:00 Final Observation Date Value Abnormality Reference (Units ) Status Histone Ab [Units/volume] in Serum by Immunoassay 06/04/2024 21:58:00 4.1 Above high normal <1.0 (U) Final Value Explanation of Results
------
<1.0 Negative
1.0 - 1.5 Weak Positive
1.6 - 2.5 Moderate Positive
>2.5 Strong Positive

Test Performed at:
[employer] [facility]
[address]
[place] [address]
Rei Kimball M.D., Ph.D.,Director of Laboratories Performing Location
--- OUTSIDE RECORDS SUMMARY | 2024-07-05 06:46 | External Medical Summary ---
Author Name Unknown Address Unknown Organization K01:[place]ORY [facility] [place] [address] [address] Laboratory Report Ordering Provider Test Date Status FREDAMARKLUIZ 06/04/2024 10:32:00 Final Observation Date Value Abnormality Reference (Units ) Status Lactic Acid 06/04/2024 10:32:00 1.1 0.4-2.0 (mmol/L) Final Performing Location [facility] - [address] [place] [address]
--- OUTSIDE RECORDS SUMMARY | 2024-07-05 06:46 | External Medical Summary ---
Author Name Unknown Address Unknown Organization : Laboratory Report Ordering Provider Test Date Status EMORY GONZALEZ 06/04/2024 08:38:00 Final COLLECT:
1 EDTA LAVENDER TUBE
CENTRIFUGE
ALIQUOT PLASMA AND POOJA LABEL PLASMA
FREEZE Observation Date Value Abnormality Reference (Units ) Status REFERENCE LAB SCANNED REPORT 06/04/2024 08:38:00 RESULT SCAN Final Performing Location
--- OUTSIDE RECORDS SUMMARY | 2024-07-05 06:46 | External Medical Summary ---
Author Name Unknown Address Unknown Organization K01:LABORATORY [facility] - [address] [address] Laboratory Report Ordering Provider Test Date Status PATRICIA ALBERTO 06/05/2024 05:51:00 Final Observation Date Value Abnormality Reference (Units ) Status LDH 06/05/2024 05:51:00 532 Above high normal <= 250 (U/L) Final Performing Location LAB[facility]ATORY [facility] - [address] [place] [address]
--- OUTSIDE RECORDS SUMMARY | 2024-07-05 06:46 | External Medical Summary ---
Author Name Unknown Address Unknown Organization K01:LABORATORY [facility] [place] - [address] [address] Laboratory Report Ordering Provider Test Date Status JOLIE MAJOR 06/04/2024 05:43:00 Final Observation Date Value Abnormality Reference (Units ) Status Troponin T 06/04/2024 05:43:00 125 Above upper panic limits <=14 (ng/L) Final Performing Location [facility]ORY [facility] - [address] [place] [address]
--- OUTSIDE RECORDS SUMMARY | 2024-07-05 06:46 | External Medical Summary ---
Author Name Unknown Address Unknown Organization K01:LABORATORY [facility] - [address] [address] Laboratory Report Ordering Provider Test Date Status MICHAEL BARBA 06/04/2024 08:55:00 Final Observation Date Value Abnormality Reference (Units ) Status Troponin T 06/04/2024 08:55:00 147 Above upper panic limits <=14 (ng/L) Final Performing Location LAB[facility] - [address] [place] [address]
--- OUTSIDE RECORDS SUMMARY | 2024-07-05 06:46 | External Medical Summary ---
Author Name Unknown Address Unknown Organization K01:LABORATORY [facility] - [address] [place] [address] Laboratory Report Ordering Provider Test Date Status PATRICIA ALBERTO 06/05/2024 05:51:00 Final Observation Date Value Abnormality Reference (Units ) Status Ferritin 06/05/2024 05:51:00 7613 Above high normal 13 -150 (ng/mL) Final Performing Location LAB[facility]ATORY [facility] - [address] [place] [address]
--- OUTSIDE RECORDS SUMMARY | 2024-07-05 06:46 | External Medical Summary ---
Author Name Unknown Address Unknown Organization K01:LABORATORY [facility] [place] - [address] [address] Laboratory Report Ordering Provider Test Date Status MICHAEL BARBA 06/04/2024 11:33:00 Final Observation Date Value Abnormality Reference (Units ) Status Troponin T 06/04/2024 11:33:00 137 Above upper panic limits <=14 (ng/L) Final Performing Location LAB[facility] - [address] [place] [address]
--- OUTSIDE RECORDS SUMMARY | 2024-07-05 06:46 | External Medical Summary ---
Author Name Unknown Address Unknown Organization K01:LABORATORY [facility] - [address] [address] Laboratory Report Ordering Provider Test Date Status FREDAMARKLUIZ 06/05/2024 08:58:00 Final Observation Date Value Abnormality Reference (Units ) Status Phosphate 06/05/2024 08:58:00 2.1 Below low normal 2.5 -4.8 (mg/dL) Final Performing Location LAB[facility]ATORY [facility] - [address] [place] [address]
--- OUTSIDE RECORDS SUMMARY | 2024-07-05 06:46 | External Medical Summary ---
Author Name Unknown Address Unknown Organization K01:[place] [facility] [place] [facility] [address] [address] Laboratory Report Ordering Provider Test Date Status REMYPATRICIA 06/04/2024 05:43:00 Final Rheumatoid factor at a level above 50 [...] definitively correlate with clinical severity of disease. Observation Date Value Abnormality Reference (Units ) Status Fibrin D-dimer FEU [Mass/volume] in Platelet poor plasma by Immunoassay 06/04/2024 05:43:00 3.77 Above high normal <0.50 (ug/mL FEU) Final Performing Location [place] [facility] [place] [facility] [address] [address]
--- OUTSIDE RECORDS SUMMARY | 2024-07-05 06:46 | External Medical Summary ---
Author Name Unknown Address Unknown Organization K01:LABORATORY [facility] [place] - [address] [place] [address] Laboratory Report Ordering Provider Test Date Status PATRICIA ALBERTO 06/04/2024 05:43:00 Final Observation Date Value Abnormality Reference (Units ) Status Erythrocyte sedimentation rate by Photometric method 06/04/2024 05:43:00 41 Above high normal <20 (mm/hour) Final Performing Location LABORATORY [facility] [place] - [address] [place] [address]
--- OUTSIDE RECORDS SUMMARY | 2024-07-05 06:46 | External Medical Summary ---
Author Name Unknown Address Unknown Organization K01:[place] [facility] [place] [facility] [address] [address] Laboratory Report Ordering Provider Test Date Status RICHMOND ALBERTOVAK 06/05/2024 05:51:00 Final Rheumatoid factor at a level above [...] [Mass/volume] in Platelet poor plasma by Immunoassay 06/05/2024 05:51:00 4.09 Above high normal <0.50 (ug/mL FEU) Final Performing Location [place] [facility] [place] [facility] [address] [address]
--- OUTSIDE RECORDS SUMMARY | 2024-07-05 06:46 | External Medical Summary ---
Author Name Unknown Address Unknown Organization K01:LABORATORY [place] [address] [place] [address] Laboratory Report Ordering Provider Test Date Status RENE CARLSON 06/05/2024 08:58:00 Final Observation Date Value Abnormality Reference (Units ) Status Villanueva light chains, Free, Serum 06/05/2024 08:58:00 67.10 Above high normal 3.30-19.40 (mg/L) Final Lambda light chains, free, Serum 06/05/2024 08:58:00 58.19 Above high normal 5.71-26.30 (mg/L) Final KAPPA LAMBDA FLC RATIO 06/05/2024 08:58:00 1.15 0.26-1.65 Final Performing Location [place] [facility] [place] [facility] [place] [address]
--- OUTSIDE RECORDS SUMMARY | 2024-07-05 06:46 | External Medical Summary ---
Author Name Unknown Address Unknown Organization K01:LABORATORY [facility] - [address] [address] Laboratory Report Ordering Provider Test Date Status MICHAEL BARBA 06/04/2024 11:33:00 Final Observation Date Value Abnormality Reference (Units ) Status CO2 06/04/2024 11:33:00 18 Below low normal 22- 32 (mmol/L) Final Performing Location LABORATORY [facility] - [address] [place] [address]
--- OUTSIDE RECORDS SUMMARY | 2024-07-05 06:46 | External Medical Summary ---
Author Name Unknown Address Unknown Organization K01:LABORATORY [facility] [place] - [address] [address] Laboratory Report Ordering Provider Test Date Status MICHAEL BARBA 06/04/2024 23:18:59 Final Normal: <150 mg/ g creatinine
High: 150-500 mg/g creatinine
Very High: >500 mg/g creatinine
Nephrotic: >3000 mg/g creatinine Observation Date Value Abnormality Reference (Units ) Status Protein/Creatinine [Ratio] in Urine 06/04/2024 23:18:59 1151 Above high normal <150 (mg/g ) Final Protein, Urine 06/04/2024 23:18:59 99 (mg/dL) Final Creatinine, Urine 06/04/2024 23:18:59 86 (mg/dL) Final Performing Location LABORATORY [facility] [place] - [address] [place] [address]
--- OUTSIDE RECORDS SUMMARY | 2024-07-05 06:46 | External Medical Summary ---
Author Name Unknown Address Unknown Organization K01:[place] [facility] [place] [facility] [address] Laboratory Report Ordering Provider Test Date Status MICHAEL BARBA 06/04/2024 05:43:00 Final Observation Date Value Abnormality Reference (Units ) Status WBC, Total 06/04/2024 05:43:00 3.75 Below low normal 4.00-10.80 (K/uL) Final RBC 06/04/2024 05:43:00 3.46 3.85-5.15 (M/uL) Final Hemoglobin 06/04/2024 05:43:00 9.1 Below low normal 12.0-15.3 (g/dL) Final HCT 06/04/2024 05:43:00 29.3 Below low normal 36.0-45.2 (%) Final MCV 06/04/2024 05:43:00 84.7 81.5-97.5 (fL) Final MCH 06/04/2024 05:43:00 26.3 27.0-34.0 (pg) Final MCHC 06/04/2024 05:43:00 31.1 32.0-36.0 (g/dL) Final RDW 06/04/2024 05:43:00 18.6 11.5-15.5 (%) Final Platelets 06/04/2024 05:43:00 329 140-400 (K/uL) Final MPV 06/04/2024 05:43:00 8.5 6.6-11.1 (fL) Final Nucleated erythrocytes/100 leukocytes [Ratio] in Blood by Automated count 06/04/2024 05:43:00 0 <=0 (/100 WBCs) Final Performing Location [place] [facility] [place] [facility] [place] [address]
--- OUTSIDE RECORDS SUMMARY | 2024-07-05 06:46 | External Medical Summary ---
Author Name Unknown Address Unknown Organization K01:[place] [facility] [place] [address] [facility] [address] Laboratory Report Ordering Provider Test Date Status MICHAEL BARBA 06/05/2024 05:52:00 Final Observation Date Value Abnormality Reference (Units ) Status SYNC LEUKOCYTES IN BLOOD BY AUTOMATED COUNT 06/05/2024 05:52:00 3.12 Below low normal 4.00-10.80 (K/uL) Final Segs 06/05/2024 05:52:00 79.2 Above high normal 40.0-75.0 (%) Final Lymphs % 06/05/2024 05:52:00 12.5 Below low normal 18.0-42.0 (%) Final Monos 06/05/2024 05:52:00 2.9 1.0-11.0 (%) Final Eosinophils 06/05/2024 05:52:00 0.0 0.0-6.0 (%) Final Basos 06/05/2024 05:52:00 0.0 0.0-2.0 (%) Final Immature Granulocyte, Percent 06/05/2024 05:52:00 5.4 Above high normal 0.0-2.0 (%) Final Absolute Segs 06/05/2024 05:52:00 2.47 1.80-7.70 (K/uL) Final Lymphs, absolute 06/05/2024 05:52:00 0.39 Below low normal 1.00-4.80 (K/ul) Final Monos, Abs 06/05/2024 05:52:00 0.09 0.00-1.10 (K/uL) Final Eos, Abs 06/05/2024 05:52:00 0.00 0.00-0.70 (K/uL) Final Basos, Abs 06/05/2024 05:52:00 0.00 0.00-0.20 (K/uL) Final Immature Granulocytes, Number 06/05/2024 05:52:00 0.17 0.00-0.20 (K/uL) Final Performing Location [place] [facility] [place] [facility] [address] [place] [address]
--- OUTSIDE RECORDS SUMMARY | 2024-07-05 06:46 | External Medical Summary ---
Author Name Unknown Address Unknown Organization K01:LABORATORY [facility] - [address] [address] Laboratory Report Ordering Provider Test Date Status PATRICIA ALBERTO 06/04/2024 05:43:00 Final Observation Date Value Abnormality Reference (Units ) Status LDH 06/04/2024 05:43:00 541 Above high normal <= 250 (U/L) Final Performing Location LABORATORY [facility] - [address] [place] [address]
--- OUTSIDE RECORDS SUMMARY | 2024-07-05 06:46 | External Medical Summary ---
Author Name Unknown Address Unknown Organization K01:LABORATORY [facility] [place] - [address] [facility] [address] Laboratory Report Ordering Provider Test Date Status PATRICIA ALBERTO 06/04/2024 05:43:00 Final Observation Date Value Abnormality Reference (Units ) Status BUN 06/04/2024 05:43:00 11 6-20 (mg/dL) Final Creatinine 06/04/2024 05:43:00 0.4 Below low normal 0.5-1.0 (mg/dL) Final Glomerular filtration rate/1.73 sq M.predicted [Volume Rate/Area] in Serum, Plasma or Blood by Creatinine-based formula (CKD-EPI) 06/04/2024 05:43:00 >90 >=60 (mL/min) Final eGFR is calculated based on the CKD-EPI 2020 equation. Sodium 06/04/2024 05:43:00 133 Below low normal 135 -146 (mmol/L) Final Potassium 06/04/2024 05:43:00 3.7 3.5-5.1 (m mol/L) Final Cl 06/04/2024 05:43:00 105 98-107 (mm ol/L) Final CO2 06/04/2024 05:43:00 19 Below low normal 22- 32 (mmol/L) Final Anion gap 06/04/2024 05:43:00 9 7-15 (mmol /L) Final Glucose 06/04/2024 05:43:00 90 70-120 (mg /dL) Final Albumin 06/04/2024 05:43:00 2.3 Below low normal 3.8 -5.0 (g/dL) Final AST (Aspartate aminotransferase) 06/04/2024 05:43:00 134 Above high normal 10-35 (U/L) Final Alk Phos 06/04/2024 05:43:00 95 35-130 (U/ L) Final Bilirubin, Total 06/04/2024 05:43:00 0.2 <=1 .2 (mg/dL) Final Calcium 06/04/2024 05:43:00 7.6 Below low normal 8.4 -10.2 (mg/dL) Final Protein 06/04/2024 05:43:00 5.5 Below low normal 6.0 -8.3 (g/dL) Final ALT (Alanine aminotransferase) 06/04/2024 05:43:00 41 Above high normal 10-35 (U/L) Final Performing Location LABORATORY [facility] [place] - [address] [facility] [address]
--- OUTSIDE RECORDS SUMMARY | 2024-07-05 06:46 | External Medical Summary ---
Author Name Unknown Address Unknown Organization : Laboratory Report Ordering Provider Test Date Status EMORY GONZALEZ 06/04/2024 08:37:00 Final COLLECT:
2 EDTA LAVENDER TUBES
MUST BE SPUN WITHIN 8 HOURS OF COLLECTION
ALIQUOT INTO TWO SEPARATE ALIQUOTS AND POOJA LABELS WITH "PLASMA"
FREEZE Observation Date Value Abnormality Reference (Units ) Status REFERENCE LAB SCANNED REPORT 06/04/2024 08:37:00 RESULT SCAN Final Performing Location
--- OUTSIDE RECORDS SUMMARY | 2024-07-05 06:47 | External Medical Summary | Summary of Care ---
Author Name Unknown Organization [facility] Address [address] [facility] [place] [address] Phone [phone] Care Team Providers Care Stamp Clerk Name Role Phone Payal Myers MD Primary Care Provider [phone] Encounter Details Date Type Department Care Team (Late st Contact Info) Description 06/03/2024 Population Health External Data Unspecified Department Allergies Active Allergy Reactions Criticality Noted Date Comments Sulfasalazine Rash Medium 10/23/2023 documented as of this encounter (statuses as of 06/03/2024) Medications 08/10 1-20 MG-MCG per tablet 1 Tablet in the morning. 7 Suspended FLUoxetine HCl 20 MG Oral Capsule (PROzac)Indicat ions:LUDA (generalized anxiety disorder) Take 1 Capsule by mouth in the morning. 90 Capsule 3 4 Suspended Ferrous Sulfate 325 (65 Fe) MG Oral Tablet Delayed Release Take 1 Tablet by mouth. Every other day. Suspended predniSONE 5 MG Oral Tablet (Deltasone) Take 4 Tablets by mouth daily for 14 days, THEN 3 Tablets daily for 14 days, THEN 2 Tablets daily for 14 days, THEN 1 Tablet daily for 14 days. 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 (Household - [...] Description 06/25/2024 11:40 AM EST Office Visit [facility] [address] [facility] [address] [place] [address] Payal Myers MD [address] [facility] [place] [address] 08/31/2024 8:20 AM EST Office Visit [facility] [address] [facility] [place] [address] Payal Myers MD [address] [facility] [place] [address] Health Maintenance Due Date Last Done Comments [...] Advance Directives occurred with: Patient Care Teams Stamp Clerk Relationship Specialty Start Date End Date Pay[place] Myers MD [address] [place] [address] PCP - General Family Medicine 01/21/24 documented as of this encounter
--- OUTSIDE RECORDS SUMMARY | 2024-07-05 06:47 | External Medical Summary ---
Author Name Unknown Address Unknown Organization K01:LABORATORY [facility] - [address] [place] [address] Laboratory Report Ordering Provider Test Date Status PATRICIA ALBERTO 06/03/2024 05:57:00 Final Observation Date Value Abnormality Reference (Units ) Status IgA 06/03/2024 05:57:00 72 70-400 (mg /dL) Final Performing Location LABORATORY [facility] - [address] [place] [address]
--- OUTSIDE RECORDS SUMMARY | 2024-07-05 06:47 | External Medical Summary ---
Author Name Unknown Address Unknown Organization K01:LABORATORY [facility] [place] - [address] [address] Laboratory Report Ordering Provider Test Date Status PATRICIA ALBERTO 06/03/2024 05:57:00 Final Observation Date Value Abnormality Reference (Units ) Status Complement C3c [Mass/volume] in Serum or Plasma 06/03/2024 05:57:00 70 Below low normal 90-180 (mg/dL) Final Performing Location LABORATORY [facility] [place] - [address] [place] [address]
--- OUTSIDE RECORDS SUMMARY | 2024-07-05 06:47 | External Medical Summary ---
Author Name Unknown Address Unknown Organization K01:LABORATORY [facility] - [address] [place] [address] Laboratory Report Ordering Provider Test Date Status PATRICIA ALBERTO 06/03/2024 05:57:00 Final Observation Date Value Abnormality Reference (Units ) Status LDH 06/03/2024 05:57:00 557 Above high normal <= 250 (U/L) Final Performing Location LABORATORY [facility] - [address] [place] [address]
--- OUTSIDE RECORDS SUMMARY | 2024-07-05 06:47 | External Medical Summary ---
Author Name Unknown Address Unknown Organization K01:[place] [facility] [place] [address] [place] [address] Laboratory Report Ordering Provider Test Date Status CELESTINA JHA 06/03/2024 09:41:07 Final Laboratory testing ordered.< br/>
PATIENT MAY NOW BE COLLECTED

Approve this testing, send to [facility].
This non-formulary test request was reviewed by Danika Witt MD Observation Date Value Abnormality Reference (Units ) Status REQUEST ACCEPTED/REJECTED 06/03/2024 09:41:07 Accepted Final PERFORMING LAB 06/03/2024 09:41:07 Other Final TEST CODE 06/03/2024 09:41:07 CXCL9 Final TEST DESCRIPTION 06/03/2024 09:41:07 CXCL9 Final Performing Location LABORATORY C - [address] [place] [address]
--- OUTSIDE RECORDS SUMMARY | 2024-07-05 06:47 | External Medical Summary ---
Author Name Unknown Address Unknown Organization : Laboratory Report Ordering Provider Test Date Status EMORY GONZALEZ 06/03/2024 13:31:24 Final Observation Date Value Abnormality Reference (Units ) Status Glucose Point of Care 06/03/2024 13:31:24 97 70-120 (mg/dL) Final Performing Location
--- OUTSIDE RECORDS SUMMARY | 2024-07-05 06:47 | External Medical Summary ---
Author Name Unknown Address Unknown Organization : Laboratory Report Ordering Provider Test Date Status MICHAEL BARBA 06/03/2024 11:19:00 Final Observation Date Value Abnormality Reference (Units ) Status Parvovirus B19 IgG 06/03/2024 11:19:00 0.1 < 0.9 Final Parvovirus B19 IgM 06/03/2024 11:19:00 0.1 < 0.9 Final Reference Range:
<0.9 N egative
0.9-1.1 Equivocal
>1.1 Positive
IgG persists for [...] Parvovirus B19 DNA, PCR.

Test Performed at:
[employer] [facility]
[address]
[place], [place]
Rei Kimball M.D., Ph.D.,Director of Laboratories Performing Location
--- OUTSIDE RECORDS SUMMARY | 2024-07-05 06:47 | External Medical Summary ---
Author Name Unknown Address Unknown Organization [id number]:LABORATORY [facility] [place] - [address] [address] Laboratory Report Ordering Provider Test Date Status YOSELIN CALDERÓN 06/03/2024 05:57:00 Final Observation Date Value Abnormality Reference (Units ) Status CLINICIAN SLIDE READY? 06/03/2024 05:57:00 Yes Final CLINICIAN SLIDE REQUEST PICKUP LOCATION 06/03/2024 05:57:00 [facility] Main Laboratory - [place] Final Performing Location LABORATORY [facility] [place] - [address] [address]
--- OUTSIDE RECORDS SUMMARY | 2024-07-05 06:47 | External Medical Summary | Summary of Care ---
Author Name Unknown Organization [facility] Address [address] [place] [address] Phone [phone] Care Team Providers Care Makeup Sales Consultant Name Role Phone Payal Myers MD Primary Care Provider [phone] Encounter Details Date Type Department Care Team (Late st Contact Info) Description 06/02/2024 Telephone Rheumatology, [place] [address] [place] [address] Jenae Guajardo MD [address] [place] [address] Allergies Active Allergy Reactions Criticality Noted Date Comments Sulfasalazine Rash Medium 10/23/2023 documented as of this encounter (statuses as of 06/02/2024) Medications 08/10 1-20 MG-MCG per tablet 1 [...] daily for 14 days. 140 Tablet 04/08/2024 06/03/20 24 Active Topiramate 25 MG Oral Tablet (topAMAX) Take 1 Tablet by mouth every night at bedtime for 7 days, THEN 2 Tablets every night at bedtime for 7 days, THEN 3 Tablets every night at bedtime for 7 days, THEN 4 Tablets every night at bedtime. 90 Tablet 3 05/18/2024 06/08/20 25 Active Naratriptan HCl 2.5 MG Oral Tablet [...] jaw pain). 20 Tablet 3 05/18/2024 Active B-12 500 MCG Oral Tablet Take 2 Tablets by mouth in the morning. 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 Iron deficiency 02/28/2024 LUDA (generalized anxiety disorder) 10/09/2023 Seronegative inflammatory arthritis 10/09/2023 documented as of this encounter (statuses as of 06/02/2024) Immunizations Name Administration Dates Next Due COVID-19 [...] ages 0-17 years) Not on file 02/28/2024 Comments No Sex and Gender Information Value Date Recorded Sex Assigned at Female 08/03/2019 10:35 AM EST Legal Sex Female 2:47 PM EDT Gender Identity Female 08/03/2019 10:35 AM EST Sexual Orientation Straight 08/03/2019 10 :35 AM EST documented as of this encounter Miscellaneous Notes * Telephone Encounter - Jenae Guajardo MD - 06/02/2024 4:59 PM EST Bhavin is a 29-year-old female with a medical hx of Migraines, seronegative inflammatory arthritis who is being transferred from [facility] to [facility] for further evaluation. Appears has had ongoing joint pain, intermittent fever and headaches in the past 2-3 weeks. Was previously admitted at [facility] on 05/20 for above symptoms, underwent sepsis evaluation and appears no etiology noted. Following discharge from [facility], had an OP visit with her PCP who noted elevated ferritin, LDH and mild elevation in transaminase levels, he did express concern for some other underlying disease like Still's and had her referred to the ER. She follows with thread grinder Dr. Vang/Michelle his [employer] [facility] at [place], was previously triedon Cimzia in February for management of her arthritis however developed a rash which was thought to be drug related, hence Cimzia was stopped in March. Shortly after this, was commenced on adalimumab bio similar in Apr, took only 2 doses and developed chills/ worsening headache/ palpitations for which she was admitted, medication was stopped following symptoms; ? Exact etiology. From chart review, appears rash has resolved doubt a biopsy or derm evaluation was done at onset. From the Rheumatology standpoint, we will rule out possible etiologies, differential diagnosis would include Still's disease, HLH/MAS, SLE also in the differential with rash/arthralgia/synovitis and abnormal labs, doubt a systemic vasculitis/DM or sweet syndrome. Would also be necessary to obtain a thorough infective evaluation as could be triggers for this (Blood cultures, Viral panel ? LP/CSF studies). Radiographic evaluation to exclude an underlying malignancy. Recommend the following labs on presentation ; DESTINY ; EIA screen with reflexive antibodies, 2. Complement levels, 3. Urinalysis with Urine protein creatinine ratio 4. PT/INR , APTT, D-dimer 5. Fibrinogen 6. Soluble Il- 2 receptor, (sCD25 or Angelia-2R), CXCL9 7. Immunoglobulin levels; IgG, A and M 8. CBC, CMP 9. Trend ESR and CRP, Ferritin, LDH and Triglyceride levels Depending on clinical findings may decide if a bone marrow or lymph node biopsy is needed. documented in this encounter Plan of Treatment Upcoming Encounters Date Type Department Care Team (Late st Contact Info) Description 06/25/2024 11:40 AM EST [facility] [place] [address] [place] [address] Payal Myers MD [address] [place] [address] 08/31/2024 8:20 AM EST Office Visit [facility] Maria E Garcia [address] [place] [address] Payal Myers MD [address] [place] [address] Health Maintenance Due Date Last Done Comments [...] filedocumented as of this encounter Care Teams Makeup Sales Consultant Relationship Specialty Start Date End Date Payal Myers MD [address] [place] [address] PCP - General Family Medicine 01/21/24 documented as of this encounter
--- OUTSIDE RECORDS SUMMARY | 2024-07-05 06:47 | External Medical Summary ---
Author Name Unknown Address Unknown Organization [id number]:[facility]ORY [facility] [address] [address] Laboratory Report Ordering Provider Test Date Status RICHMOND ALBERTOVAK 06/03/2024 05:57:00 Final Rheumatoid factor at a level above [...] [Mass/volume] in Platelet poor plasma by Immunoassay 06/03/2024 05:57:00 2.70 Above high normal <0.50 (ug/mL FEU) Final Performing Location LAB[facility]ORY [facility] [address] [address]
--- OUTSIDE RECORDS SUMMARY | 2024-07-05 06:47 | External Medical Summary ---
Author Name Unknown Address Unknown Organization K01:LABORATORY [facility] - [address] [address] Laboratory Report Ordering Provider Test Date Status PATRICIA ALBERTO 06/03/2024 05:57:00 Final Observation Date Value Abnormality Reference (Units ) Status C4 06/03/2024 05:57:00 17 10-40 (mg/ dL) Final Performing Location LABORATORY [facility] - [address] [place] [address]
--- OUTSIDE RECORDS SUMMARY | 2024-07-05 06:47 | External Medical Summary ---
Author Name Unknown Address Unknown Organization [id number]:LABORATORY [facility] - [address] [place] [address] Laboratory Report Ordering Provider Test Date Status PATRICIA ALBERTO 06/03/2024 05:57:00 Final Observation Date Value Abnormality Reference (Units ) Status IgM 06/03/2024 05:57:00 131 40-230 (mg /dL) Final Performing Location LABORATORY [facility] - [address] [address]
--- OUTSIDE RECORDS SUMMARY | 2024-07-05 06:47 | External Medical Summary ---
Author Name Unknown Address Unknown Organization K01:LABORATORY [facility] - [address] [address] Laboratory Report Ordering Provider Test Date Status CELESTINA JHA 06/03/2024 09:41:07 Final Laboratory testing ordered.< br/>
PATIENT MAY NOW BE COLLECTED

Approve this testing, send to [facility].
This non-formulary test request was reviewed by Danika Witt MD Observation Date Value Abnormality Reference (Units ) Status REQUEST ACCEPTED/REJECTED 06/03/2024 09:41:07 Accepted Final PERFORMING LAB 06/03/2024 09:41:07 Other Final TEST CODE 06/03/2024 09:41:07 Interleukin-18 Final TEST DESCRIPTION 06/03/2024 09:41:07 Interleukin-18 Final Performing Location LAB[facility]ATORY [facility] - [address] [address]
--- OUTSIDE RECORDS SUMMARY | 2024-07-05 06:47 | External Medical Summary ---
Author Name Unknown Address Unknown Organization K01:LAB[facility]ATORY [facility] [place] [address] [facility] Laboratory Report Ordering Provider Test Date Status PATRICIA ALBERTO 06/02/2024 23:07:08 Final Observation Date Value Abnormality Reference (Units) Status Bacteria identified in Specimen by Culture 06/02/2024 23:07:08 No significant growth Final Test: Culture, Urine, Quanti tative
Specimen Source: Urine, Clean Catch
Specimen Type: Urine
Specimen Date: 06/02/20242306
Result Date: 06/04/2024 0847
Result Status: Final result
Resulting Lab: LAB[facility]ATORY [facility]
[address]
[place] [address]

CULTURE

No significant growth

null Performing Location LABORATORY [facility] [place] [address] [place] [address]
--- OUTSIDE RECORDS SUMMARY | 2024-07-05 06:47 | External Medical Summary ---
Author Name Unknown Address Unknown Organization K01:LABORATORY [facility] - [address] [address] Laboratory Report Ordering Provider Test Date Status CELESTINA JHA 06/03/2024 09:41:07 Final Laboratory testing ordered.< br/>
PATIENT MAY NOW BE COLLECTED

Approve this testing, send to [facility].
This non-formulary test request was reviewed by Danika Witt MD Observation Date Value Abnormality Reference (Units ) Status REQUEST ACCEPTED/REJECTED 06/03/2024 09:41:07 Accepted Final PERFORMING LAB 06/03/2024 09:41:07 Other Final TEST CODE 06/03/2024 09:41:07 Soluble CD163 Final TEST DESCRIPTION 06/03/2024 09:41:07 Soluble CD163 Final Performing Location LAB[facility]ATORY [facility] - [address] [address]
--- OUTSIDE RECORDS SUMMARY | 2024-07-05 06:47 | External Medical Summary ---
Author Name Unknown Address Unknown Organization [id number]:LABORATORY [facility] [place] - [address] [facility] [address] Laboratory Report Ordering Provider Test Date Status PATRICIA ALBERTO 06/03/2024 05:57:00 Final Observation Date Value Abnormality Reference (Units ) Status BUN 06/03/2024 05:57:00 6 6-20 (mg/dL) Final Creatinine 06/03/2024 05:57:00 0.5 0.5-1.0 (mg/dL) Final Glomerular filtration rate/1.73 sq M.predicted [Volume Rate/Area] in Serum, Plasma or Blood by Creatinine-based formula (CKD-EPI) 06/03/2024 05:57:00 >90 >=60 (mL/min) Final eGFR is calculated based on the CKD-EPI 2020 equation. Sodium 06/03/2024 05:57:00 134 Below low normal 135 -146 (mmol/L) Final Potassium 06/03/2024 05:57:00 3.4 Below low normal 3.5 -5.1 (mmol/L) Final Cl 06/03/2024 05:57:00 104 98-107 (mm ol/L) Final CO2 06/03/2024 05:57:00 21 Below low normal 22- 32 (mmol/L) Final Anion gap 06/03/2024 05:57:00 9 7-15 (mmol /L) Final Glucose 06/03/2024 05:57:00 95 70-120 (mg /dL) Final Albumin 06/03/2024 05:57:00 2.1 Below low normal 3.8 -5.0 (g/dL) Final AST (Aspartate aminotransferase) 06/03/2024 05:57:00 137 Above high normal 10-35 (U/L) Final Alk Phos 06/03/2024 05:57:00 93 35-130 (U/ L) Final Bilirubin, Total 06/03/2024 05:57:00 0.3 <=1 .2 (mg/dL) Final Calcium 06/03/2024 05:57:00 7.1 Below low normal 8.4 -10.2 (mg/dL) Final Protein 06/03/2024 05:57:00 5.0 Below low normal 6.0 -8.3 (g/dL) Final ALT (Alanine aminotransferase) 06/03/2024 05:57:00 42 Above high normal 10-35 (U/L) Final Performing Location LABORATORY [facility] - [address] [facility] [address]
--- OUTSIDE RECORDS SUMMARY | 2024-07-05 06:47 | External Medical Summary ---
Author Name Unknown Address Unknown Organization K01:[place] [facility] [place] [address] [address] Laboratory Report Ordering Provider Test Date Status PATRICIA ALBERTO 06/04/2024 05:43:00 Final Anticoagulation may affect t esting. Refer to [employer] Test Catalog for a list of effects. Observation Date Value Abnormality Reference (Units ) Status aPTT panel - Platelet poor plasma 06/04/2024 05:43:00 38 21-38 (seconds) Final Performing Location [facility] [place] [address] [address]
--- OUTSIDE RECORDS SUMMARY | 2024-07-05 06:47 | External Medical Summary ---
Author Name Unknown Address Unknown Organization K01:[place] [place] [address] [place] [address] Laboratory Report Ordering Provider Test Date Status REMYPATRICIA 06/03/2024 05:57:00 Final Observation Date Value Abnormality Reference (Units ) Status Erythrocyte sedimentation rate by Photometric method 06/03/2024 05:57:00 29 Above high normal <20 (mm/hour) Final Performing Location [facility] [place] [address] [place] [address]
--- OUTSIDE RECORDS SUMMARY | 2024-07-05 06:47 | External Medical Summary ---
Author Name Unknown Address Unknown Organization K01:[facility] [place] [address] [facility] [address] Laboratory Report Ordering Provider Test Date Status MICHAEL BARBA 06/04/2024 05:43:00 Final Observation Date Value Abnormality Reference (Units ) Status SYNC LEUKOCYTES IN BLOOD BY AUTOMATED COUNT 06/04/2024 05:43:00 3.75 Below low normal 4.00-10.80 (K/uL) Final Segs 06/04/2024 05:43:00 78.9 Above high normal 40.0-75.0 (%) Final Lymphs % 06/04/2024 05:43:00 13.1 Below low normal 18.0-42.0 (%) Final Monos 06/04/2024 05:43:00 2.4 1.0-11.0 (%) Final Eosinophils 06/04/2024 05:43:00 0.0 0.0-6.0 (%) Final Basos 06/04/2024 05:43:00 0.3 0.0-2.0 (%) Final Immature Granulocyte, Percent 06/04/2024 05:43:00 5.3 Above high normal 0.0-2.0 (%) Final Absolute Segs 06/04/2024 05:43:00 2.96 1.80-7.70 (K/uL) Final Lymphs, absolute 06/04/2024 05:43:00 0.49 Below low normal 1.00-4.80 (K/ul) Final Monos, Abs 06/04/2024 05:43:00 0.09 0.00-1.10 (K/uL) Final Eos, Abs 06/04/2024 05:43:00 0.00 0.00-0.70 (K/uL) Final Basos, Abs 06/04/2024 05:43:00 0.01 0.00-0.20 (K/uL) Final Immature Granulocytes, Number 06/04/2024 05:43:00 0.20 0.00-0.20 (K/uL) Final Performing Location [facility] [place] [facility] [address] [place] [address]
--- OUTSIDE RECORDS SUMMARY | 2024-07-05 06:47 | External Medical Summary ---
Author Name Unknown Address Unknown Organization K01:LABORATORY [facility] - [address] [place] [address] Laboratory Report Ordering Provider Test Date Status PATRICIA ALBERTO 06/03/2024 05:57:00 Final Observation Date Value Abnormality Reference (Units ) Status Fibrinogen 06/03/2024 05:57:00 389 178-467 ( mg/dL) Final Performing Location LABORATORY [facility] - [address] [place] [address]
--- OUTSIDE RECORDS SUMMARY | 2024-07-05 06:47 | External Medical Summary ---
Author Name Unknown Address Unknown Organization K01:LABORATORY [facility] [place] - [address] [address] Laboratory Report Ordering Provider Test Date Status PATRICIA ALBERTO 06/04/2024 05:43:00 Final Warfarin Therapy
INR: 2 .0-3.0 conventional anticoagulation
INR: 2.5- 3.5 high intensity anticoagulation Observation Date Value Abnormality Reference (Units ) Status PT 06/04/2024 05:43:00 13.1 11.6-15.2 (seconds) Final INR 06/04/2024 05:43:00 1.0 0.8-1.2 Final Performing Location LABORATORY [facility] [place] - [address] [address]
--- OUTSIDE RECORDS SUMMARY | 2024-07-05 06:47 | External Medical Summary ---
Author Name Unknown Address Unknown Organization K01:[place] [place] [address] [address] Laboratory Report Ordering Provider Test Date Status PATRICIA ALBERTO 06/02/2024 23:07:08 Final Normal: <150 mg/ g creatinine
High: 150-500 mg/g creatinine
Very High: >500 mg/g creatinine
Nephrotic: >3000 mg/g creatinine Observation Date Value Abnormality Reference (Units ) Status Protein/Creatinine [Ratio] in Urine 06/02/2024 23:07:08 624 Above high normal <150 (mg/g ) Final Protein, Urine 06/02/2024 23:07:08 53 (mg/dL) Final Creatinine, Urine 06/02/2024 23:07:08 85 (mg/dL) Final Performing Location [facility] [place] [address] [place] [address]
--- OUTSIDE RECORDS SUMMARY | 2024-07-05 06:47 | External Medical Summary ---
Author Name Unknown Address Unknown Organization K01:[place] [place] [facility] [place] [address] Laboratory Report Ordering Provider Test Date Status PATRICIA ALBERTO 06/03/2024 05:57:00 Final Observation Date Value Abnormality Reference (Units ) Status WBC, Total 06/03/2024 05:57:00 4.46 4.00-10.80 (K/uL) Final RBC 06/03/2024 05:57:00 3.14 3.85-5.15 (M/uL) Final Hemoglobin 06/03/2024 05:57:00 8.5 Below low normal 12.0-15.3 (g/dL) Final HCT 06/03/2024 05:57:00 26.6 Below low normal 36.0-45.2 (%) Final MCV 06/03/2024 05:57:00 84.7 81.5-97.5 (fL) Final MCH 06/03/2024 05:57:00 27.1 27.0-34.0 (pg) Final MCHC 06/03/2024 05:57:00 32.0 32.0-36.0 (g/dL) Final RDW 06/03/2024 05:57:00 18.1 11.5-15.5 (%) Final Platelets 06/03/2024 05:57:00 321 140-400 (K/uL) Final MPV 06/03/2024 05:57:00 8.6 6.6-11.1 (fL) Final Nucleated erythrocytes/100 leukocytes [Ratio] in Blood by Automated count 06/03/2024 05:57:00 0 <=0 (/100 WBCs) Final Performing Location LAB[facility]ORY [facility] [place] [address] [place] [address]
--- OUTSIDE RECORDS SUMMARY | 2024-07-05 06:47 | External Medical Summary ---
Author Name Unknown Address Unknown Organization K01:[facility]ATORY [facility] [place] - [address] [address] Laboratory Report Ordering Provider Test Date Status PATRICIA ALBERTO 06/03/2024 05:57:00 Final Warfarin Therapy
INR: 2 .0-3.0 conventional anticoagulation
INR: 2.5- 3.5 high intensity anticoagulation Observation Date Value Abnormality Reference (Units ) Status PT 06/03/2024 05:57:00 13.6 11.6-15.2 (seconds) Final INR 06/03/2024 05:57:00 1.0 0.8-1.2 Final Performing Location LAB[facility]ORY [facility] [place] - [address] [address]
--- OUTSIDE RECORDS SUMMARY | 2024-07-05 06:47 | External Medical Summary ---
Author Name Unknown Address Unknown Organization K01:LABORATORY [facility] - [address] [place] [address] Laboratory Report Ordering Provider Test Date Status PATRICIA ALBERTO 06/03/2024 05:57:00 Final Observation Date Value Abnormality Reference (Units ) Status IgG 06/03/2024 05:57:00 9530 430-9816 ( mg/dL) Final Performing Location LABORATORY [facility] - [address] [place] [address]
--- OUTSIDE RECORDS SUMMARY | 2024-07-05 06:47 | External Medical Summary ---
Author Name Unknown Address Unknown Organization K01:LABORATORY [facility] [place] [address] [place] [address] Laboratory Report Ordering Provider Test Date Status CELESTINA JHA 06/03/2024 09:41:07 Final Laboratory testing ordered.< br/>
PATIENT MAY NOW BE COLLECTED

Approve this testing, send to [facility].
This non-formulary test request was reviewed by Danika Witt MD Observation Date Value Abnormality Reference (Units ) Status REQUEST ACCEPTED/REJECTED 06/03/2024 09:41:07 Accepted Final PERFORMING LAB 06/03/2024 09:41:07 Other Final TEST CODE 06/03/2024 09:41:07 Neopterin: Plasma Final TEST DESCRIPTION 06/03/2024 09:41:07 Neopterin: Plasma Final Performing Location LABORATORY [facility] - [address] [place] [address]
--- OUTSIDE RECORDS SUMMARY | 2024-07-05 06:47 | External Medical Summary ---
Author Name Unknown Address Unknown Organization K01:[facility]ORY [facility] [place] - [address] [facility] [address] Laboratory Report Ordering Provider Test Date Status PATRICIA ALBERTO 06/02/2024 23:07:08 Final Observation Date Value Abnormality Reference (Units ) Status Color of Urine by Auto 06/02/2024 23:07:08 Yellow Colorless, Light Yellow, Yellow, Dark Yellow Final Clarity, Urine 06/02/2024 23:07:08 Clear Clear Final Glucose [Mass/volume] in Urine by Automated test strip 06/02/2024 23:07:08 Negative Negative (mg/dL) Final Bilirubin.total [Presence] in Urine by Automated test strip 06/02/2024 23:07:08 Negative Negative Final Ketones [Mass/volume] in Urine by Automated test strip 06/02/2024 23:07:08 Negative Negative (mg/dL) Final Specific gravity, Urine 06/02/2024 23:07:08 1.050 Above high normal 1.003-1.030 Final Hemoglobin [Presence] in Urine by Automated test strip 06/02/2024 23:07:08 Small Abnormal Negative Final pH, Urine 06/02/2024 23:07:08 6.5 5.0-7.5 (Units) Final Protein [Mass/volume] in Urine by Automated test strip 06/02/2024 23:07:08 30 Abnormal Negative (mg/dL) Final Urobilinogen [Mass/volume] in Urine by Automated test strip 06/02/2024 23:07:08 Normal Normal (mg/dL) Final Nitrite [Presence] in Urine by Automated test strip 06/02/2024 23:07:08 Negative Negative Final Leukocyte esterase [Presence] in Urine by Automated test strip 06/02/2024 23:07:08 Negative Negative Final RBC, Urine 06/02/2024 23:07:08 10-19 Abnormal 0-2 (/HPF) Final WBC, Urine 06/02/2024 23:07:08 3-5 Abnormal 0-2 (/HPF) Final Bacteria [#/area] in Urine sediment by Microscopy high power field 06/02/2024 23:07:08 51-100 Abnormal 0-25 (/HPF) Final CULTURE, [facility]INE [facility] 06/02/2024 23:07:08 Final Quantitative urine culture t o be performed Performing Location LAB[facility]ORY [facility] [place] - [facility] [address] [facility] [address]
--- OUTSIDE RECORDS SUMMARY | 2024-07-05 06:47 | External Medical Summary ---
Author Name Unknown Address Unknown Organization K01:[facility]ORY [facility] [place] [address] [place] [address] Laboratory Report Ordering Provider Test Date Status FREDAMARKLUIZ 06/03/2024 05:57:00 Final Observation Date Value Abnormality Reference (Units ) Status Treponema pallidum Ab [Presence] in Serum by Immunoassay 06/03/2024 05:57:00 Nonreactive Nonreactive Final No serologic evidence of syp hilis. No additional testing clinicially indicated at this time. Consider repeat testing in 2-4 weeks if acute or primary syphilis is suspected. Performing Location LAB[facility]ORY [facility] [place] [address] [place] [address]
--- OUTSIDE RECORDS SUMMARY | 2024-07-05 06:47 | External Medical Summary | Summary of Care ---
Author Name Unknown Organization [facility] Address [address] [place] [address] Phone [phone] Care Team Providers Care Drug And Alcohol Treatment Specialist Name Role Phone Payal Myers MD Primary Care Provider [phone] Reason for Visit * Reason Comments Abnormal Test Results * Auth/Cert Specialty Diagnoses / Procedures Referred By Conttaryn t Referred To Contact Diagnoses fevers and inflammation [facility] [address] [place] [address] Phone: [phone] [facility] ([facility]) [address] [place] [address] Phone: tel: fax: Referral ID Status Reason Start Date Expiration Date Visits Re quested Visits Authorized [id number] Encounter Details Date Type Department Care Team (Late st Contact Info) Description 06/02/2024 1:28 PM EST - 06/02/2024 5:59 PM EST Emergency [facility] ([facility]) [address] [place] [address] Kennedy Peraza DO [address] [place] [address] Inflammatory arthritis (Primary Dx); Tachycardia; Generalized weakness Discharge Disposition: Short Term Hospital Allergies Active Allergy Reactions Criticality Noted Date Comments Sulfasalazine Rash Medium 10/23/2023 documented as of this encounter (statuses as of 06/03/2024) Medications FE 08/10 1-20 MG-MCG per tablet 1 Tablet [...] Sign Reading Time Taken Comments Blood Pressure 97/56 06/02/2024 5:45 PM EST Pulse 101 06/02/2024 5:45 PM EST Temperature 36.9 C (98.4 F) 06/02/2024 4:51 PM ES T Respiratory Rate 20 06/02/2024 5:00 PM EST Oxygen Saturation 97% 06/02/2024 3:39 PM EST Inhaled Oxygen Concentration - - Weight 53.5 kg (118 lb) 06/02/2024 1:20 PM EST Height 162.6 cm (5' 4") 06/02/2024 1:20 PM EST Body Mass Index 20.25 06/02/2024 1:20 PM EST documented in this encounter ED Notes * Kennedy Peraza, DO - 06/02/2024 1:49 PM EST HISTORY OF PRESENT ILLNESS Bhavin Wilson is a 29 year old female who presents to the ED for evaluation of Abnormal Test Results. The patient was seen at 06/02/24 1329. This is a 29-year-old female with history of seronegative inflammatory arthritis presenting for joint discomfort, intermittent fevers, headaches. Reportedly admitted to [facility] on 05/20 for 3 days for her symptoms with concern for sepsis then though ultimately no evidence of ongoing infectious source. Presumed to be related to her rheumatologic medication. This current episode has overall been going on for about 2-3 weeks. Reports that she has had episodes of joint discomfort with intermittent fevers in the past. Also has history of migraines for which she was treated outpatient and has followed with Neurology. Had outpatient laboratory studies performed yesterday by PCP after discharge from [facility] with no significant improvement in her symptoms.Reportedly the PCP discussed with her foundry operator with concern that she may have Still's diseasegiven her significantly elevated ferritin and LD with mild transaminitis as well. Sent to the emergency department for further workup. Patient was does report that this current episode seems worse compared to previous though has had these symptoms in the past as well. Denies any vision changes, neck stiffness, new rash, shortness of breath, abdominal pain, nausea, vomiting, diarrhea, urinary symptoms, focal weakness, or numbness. Does report mild chest discomfort. The patient's allergies, past history, and medications were reviewed. PHYSICAL EXAM Initial Vitals (see all): BP 103/59 | Pulse 134 | Resp 18 | Temp 99.3 | O2 100 %, Room Air, None | Weight 55.34 kg | Height 162.6 cm | BMI 20.94 kg/m2 Initial Pain Assessment (see all): 10 (severe pain)/10 ([facility] Adult Scale 0-10) Physical Exam Vitals and nursing note reviewed. Constitutional: Appearance: She is well-developed. HENT: Head: Normocephalic and atraumatic. Right Ear: External ear normal. Left Ear: External ear normal. Nose: Nose normal. No rhinorrhea. Mouth/Throat: Mouth: Mucous membranes are dry. Pharynx: Oropharynx is clear. No posterior oropharyngeal erythema. Eyes: Extraocular Movements: Extraocular movements intact. Conjunctiva/sclera: Conjunctivae normal. Pupils: Pupils are equal, round, and reactive to light. Cardiovascular: Rate and Rhythm: Regular rhythm. Tachycardia present. Heart sounds: No murmur heard. Pulmonary: Effort: Pulmonary effort is normal. No respiratory distress. Breath sounds: Normal breath sounds. No stridor. No wheezing, rhonchi or rales. Abdominal: General: There is no distension. Palpations: Abdomen is soft. Tenderness: There is abdominal tenderness (Mild mid). There is no right CVA tenderness, left CVA tenderness, guarding or rebound. Musculoskeletal: General: No swelling. Normal range of motion. Cervical back: Normal range of motion and neck supple. No tenderness. Skin: General: Skin is warm and dry. Capillary Refill: Capillary refill takes less than 2 seconds. Neurological: General: No focal deficit present. Mental Status: She is alert and oriented to person, place, and time. Sensory: No sensory deficit. Motor: No weakness. PROCEDURES AND TREATMENTS ED Orders | ED Results MEDICAL DECISION MAKING Nursing notes and vital signs were reviewed. ED Course as of 06/02/245 Tue Jun 02, 2024 1345 Patient was evaluated. Afebrile though tachycardic. Blood pressure similar to previous on chart review. History of seronegative inflammatory arthritis sent to the emergency department by PCP following reported discussion with Rheumatology due to concern for potential Still's disease with 2-3 weeks of generalized joint discomfort, intermittent fevers, and feeling generally weak. Dry appearance on exam. Provided with 1 L fluid bolus. Ongoing headaches though does have history of migraines and does not feel significantly different from these. Provided with Compazine and magnesium. Concern outpatient for reaction to aleve and unable to take NSAIDs with her other home medications. Laboratory studies obtained yesterday outpatient with mild transaminitis, significantly elevated ferritin, mild general elevation in inflammatory markers, elevated LD, mild leukopenia. Before obtaining additional blood work will discuss with Rheumatology at [facility] regarding next steps as reportedly may require a bone marrow biopsy for this Still's disease. [AH] 1414 Discussed with [facility] Rheumatology through transfer center who recommends admission following completion of villalpando scan with CTA chest performed just over a week ago. We will obtain CT abdomen/pelvis here now. Additional laboratory studies obtained at their recommendation. No clear indication for transferred to [facility] at this time though will require admission and following these studies will help further delineate future treatment/workup options. [AH] 1446 CBC(!) 1.5 g decrease in hemoglobin compared to test performed yesterday however overall down including hematocrit, platelets, and white blood cell count. With ongoing IV fluids may be more related to localized hemodilution. [AH] 1448 EKG interpreted by me with sinus tachycardia with a rate of 105bpm, no evidence of significantST elevation, ST depressions, or significant dysrhythmia otherwise. [AH] 1519 Informed by nurse that blood work obtained was prior to IV fluids being started. We will provide with additional small fluid bolus. [AH] 1546 Bedside echocardiogram performed. Hyperdynamic myocardium with no evidence of right ventricular dilatation or right heart strain. IVC collapsible with respiratory variability. Additional 500 mL fluid bolus ordered. Remains around baseline blood pressure currently. Contacted by Dr. Malcolm, her foundry operator, who discussed with [facility] Rheumatology recommending now that shebe transferred to [facility] given her more complicated case. CT abdomen/pelvis just now obtained. We will discuss with transfer center for transfer. [AH] 2232 Accepted by hospitalist service for transfer. EMTALA completed. [AH] ED Course User Index [AH] Kennedy Peraza, DO Differential Diagnoses Based on my history, physical exam, and evaluation, the differential includes, but is not limited, to the following diagnoses: Still disease, inflammatory arthritis, migraine headache, meningitis, Lyme arthritis, pulmonary embolism. Clinical Impressions Tachycardia Inflammatory arthritis Generalized weakness Disposition Transferred. The patient's condition at disposition was: stable. Comments ED Disposition Transferred Comment Kennedy Peraza * Agnes Howard RN - 06/02/2024 1:22 PM EST Sent from PCP for abnormal inflammatory markers. Hx of inflammatory arthritis. documented in this encounter Miscellaneous Notes * ED Sew On Operator Note - Kylah Malloy RN - 06/02/2024 3:41 PM EST 1445: Pt remains very stiff. Pt has difficulty changing positions or moving herself in her bed. Pt not able to straighten her arm for the IV insertion. 1530: pt reports feeling lightheaded and "spacey". Provider aware. 1541: Chaperoned US efast with Dr Peraza. 1633: pt still feeling lightheaded. Pt was adjusted in bed with help from Eh OLIVO. Pt reports it helped a little. Provider aware. 1640: Pt assisted to bathroom via wheelchair. Pt's mother assists pt to rise off toilet since she cannot lift herself. 1720: pt provided with snacks and water at this time. 1758: called report to [facility] [place] at this time. Gave report to [facility] and pt left this facility at this time. documented in this encounter Plan of Treatment Upcoming Encounters Date Type Department Care Team (Late st Contact Info) Description 06/25/2024 11:40 AM EST Office Visit [facility] [address] [facility] [place] [address] Payal Myers MD [address] [facility] [place] [address] 08/31/2024 8:20 AM EST Office Visit [facility] [address] [facility] [place] [address] Payal Myers MD [address] [facility] [place] [address] Pending Results Name Type Priority Associated Diagnoses Date /Time INTERLEUKIN 2 CERTIFED REFRIGERATION OPERATOR ALPHA (IL-2R/CD25), SOLUBLE Lab STAT 06/02/2024 2:31 PM EST LYME DISEASE ANTIBODY SCREEN WITH REFLEX TO CONFIRMATION Lab Routine 05/22 2:31 PM EST ANAPLASMA PHAGOCYTOPHILUM DNA, QL REAL-TIME PCR Lab Routine 06/02/2024 2:31 PM EST EBV ANTIBODY PROFILE Lab STAT 05/22 2:31 PM EST LYME DISEASE ANTIBODY SCREEN Lab Routine 06/02/2024 2:31 PM EST Scheduled Orders Name Type Priority Associated Diagnoses Orde r Schedule INTERLEUKIN 2 CERTIFED REFRIGERATION OPERATOR ALPHA (IL-2R/CD25), SOLUBLE Lab STAT One Time f or 1 Occurrences starting 06/02/2024 until 06/02/2024 LYME DISEASE ANTIBODY SCREEN WITH REFLEX TO CONFIRMATION Lab Routine One Time for 1 Occurrences starting 06/02/2024 until 06/02/2024 ANAPLASMA PHAGOCYTOPHILUM DNA, QL REAL-TIME PCR Lab Routine One Time f or 1 Occurrences starting 06/02/2024 until 06/02/2024 EBV ANTIBODY PROFILE Lab STAT One Time for 1 Occurrences starting 06/02/2024 until 06/02/2024 LYME DISEASE ANTIBODY SCREEN Lab Routine Once for 1 Occur rences starting 06/02/2024 until 06/02/2024 Health Maintenance Due Date Last Done Comments [...] Procedure Name Priority Date/Time Associated Diagnosis Comments CT ABD/PELVIS W IV CONTRAST - WO ORAL CONTRAST STAT 06/02/2024 3:35 PM EST BILIRUBIN, DIRECT STAT 06/02/2024 2:3 1 PM EST COMPREHENSIVE METABOLIC PANEL STAT 06/02/2024 2:31 PM EST LD STAT 06/02/2024 2:31 PM EST CBC STAT 06/02/2024 2:31 PM EST documented in this encounter Results * CT ABD/PELVIS W IV CONTRAST - WO ORAL CONTRAST (06/02/2024 3:35 PM EST) Anatomical Region Laterality Modality Body, Abdomen, Pelvis Computed T omography 06/02/2024 3:28 PM EST Impressions 06/02/2024 4:02 PM EST IMPRESSION: 1. Borderline enlarged retroperitoneal and iliac chain lymph nodes. Upper limits of normal-sized spleen. 2. Otherwise, incidental findings as above. COMMENTS: Consistent with the [employer]'s Incidental Findings Committee white [...] BEEN ELECTRONICALLY SIGNED BY GLENN ULLOA MD Narrative 06/02/2024 4:02 PM EST PROCEDURE INFORMATION: Exam: CT Abdomen And Pelvis With Contrast Exam date and time: 06/02/2024 3:28 PM Age: 29 years old Clinical indication: Other: R/O still disease; Previous cta; Evaluating for other sources per rheumatology TECHNIQUE: Imaging protocol: Computed tomography of the abdomen and pelvis with contrast. Radiation optimization: All CT scans at this facility use at least one of these dose optimization techniques: automated exposure control; mA and/or kV adjustment per patient size (includes targeted exams where dose is matched to clinical indication); or iterative reconstruction. Contrast material: ISO 370; Contrast volume: 100 ml; Contrast route: INTRAVENOUS (IV); COMPARISON: 1. CT CHEST W CONTRAST 01/28/2024 6:59 AM 2. CR CHEST PA 10/02/2023 12:05 PM 3. US EXTREMITY AXILLA 01/17/2024 9:23 AM FINDINGS: Liver: Normal. Gallbladder and biliary ducts: [...] normal for patient age. Soft tissues: Unremarkable. Procedure Note Glenn Ulloa MD - 06/02/2024 PROCEDURE INFORMATION: Exam: CT Abdomen And Pelvis With Contrast Exam date and time: 06/02/2024 3:28 PM Age: 29 years old Clinical indication: Other: R/O still disease; Previous cta; Evaluatingfor other sources per rheumatology TECHNIQUE: Imaging protocol: Computed tomography of the abdomen and pelvis withcontrast. Radiation optimization: All CT scans at this facility use at least one ofthese dose optimization techniques: automated exposure control; mA and/or kV adjustment per patient size (includes targeted exams where dose is matchedto clinical indication); or iterative reconstruction. Contrast material: ISO 370; Contrast volume: 100 ml; Contrast route: INTRAVENOUS (IV); COMPARISON: 1. CT CHEST W CONTRAST 01/28/2024 6:59 AM 2. CR CHEST PA 10/02/2023 12:05 PM 3. US EXTREMITY AXILLA 01/17/2024 9:23 AM FINDINGS: Liver: Normal. Gallbladder and biliary ducts: No acute process. Pancreas: Normal. Spleen: Upper limits of normal-sized spleen. Adrenal glands: The adrenal glands appear normal. Kidneys and ureters: Simple appearing right renal cyst. Stomach and bowel: Mild fluid distention of small-bowel loops. Appendix: No evidence of appendicitis. Intraperitoneal space: There is a small volume of free fluid in thepelvis. Vasculature: The abdominal aorta and its major branches appear normalwithout evidence of aneurysm or stenosis. There are pelvic phleboliths. Lymph nodes: There are extensive prominent retroperitoneal lymph nodes,some of which are borderline enlarged such as a left common iliac node measuringup to 1.1 cm. Prominent bilateral inguinal lymph nodes are noted. Urinary bladder: Unremarkable as visualized. Reproductive: No acute process. Bones/joints: The visualized osseous structures of the abdomen and pelvis appear normal for patient age. Soft tissues: Unremarkable. IMPRESSION IMPRESSION: 1. Borderline enlarged retroperitoneal and iliac chain lymph nodes.Upper limits of normal-sized spleen. 2. Otherwise, incidental findings as above. COMMENTS: Consistent with the [employer]'s Incidental Findings Committee white paper (J Am Nayeli Radiol 2018): Any incidental renal lesionless than 1 cm or classified as too small to characterize, or any incidentalcystic renal lesion characterized as simple-appearing, is likely benign. Nofollow-up imaging is recommended for these lesions per consensus recommendationsbased on imaging criteria. THIS DOCUMENT HAS BEEN ELECTRONICALLY SIGNED BY GLENN ULLOA MD Kennedy Peraza DO RAD CT Final Result * BILIRUBIN, DIRECT (06/02/2024 2:31 PM EST) Bilirubin, Direct <0.2 0.0 - 0.3 mg/dL 06/02/2024 2:59 PM EST [facility] Blood Venous blood specimen / Unknown Venipuncture / Unknown 06/02/2024 2:31 PM EST 06/02/2024 2:38 PM EST Kennedy Taviayossi LAB BLOOD ORDERABLES Final Re sult LAB[facility]ORY [facility] [address] [place] [address] * (ABNORMAL) COMPREHENSIVE METABOLIC PANEL (06/02/2024 2:31 PM EST) BUN 10 6 - 20 mg/dL 06/02/2024 2:59 PM EST [facility] CREATININE 0.5 0.5 - 1.0 mg/dL 06/02/2024 2:59 PM EST [facility] EGFR >90 >=60 mL/min 06/02/2024 2:59 PM EST [facility] Comment:eGFR is calculated b ased on the CKD-EPI 2020 equation. SODIUM 130(L) 135 - 146 mmol/L 06/02/2024 2:59 PM EST [facility] POTASSIUM 4.4 3.5 - 5.1 mmol/L 06/02/2024 2:59 PM EST [facility] CHLORIDE 97(L) 98 - 107 mmol/L 06/02/2024 2:59 PM EST [facility] CO2 22 22 - 32 mmol/L 06/02/2024 2:59 PM EST [facility] ANION GAP 11 7 - 15 mmol/L 06/02/2024 2:59 PM EST [facility] GLUCOSE 89 70 - 120 mg/dL 06/02/2024 2:59 PM EST [facility] Albumin 2.6(L) 3.8 - 5.0 g/dL 06/02/2024 2:59 PM EST [facility] AST 156(H) 10 - 35 U/L 06/02/2024 2:59 PM EST [facility] Alkaline Phosphatase 112 35 - 130 U/L 06/02/2024 2:59 PM EST [facility] Bilirubin, Total 0.3 <=1.2 mg/dL 06/02/2024 2:59 PM EST [facility] CALCIUM 7.8(L) 8.4 - 10.2 mg/dL 06/02/2024 2:59 PM EST [facility] Protein 6.2 6.0 - 8.3 g/dL 06/02/2024 2:59 PM EST [facility] ALT 47(H) 10 - 35 U/L 06/02/2024 2:59 PM EST [facility] Blood Venous blood specimen / Unknown Venipuncture / Unknown 06/02/2024 2:31 PM EST 06/02/2024 2:38 PM EST us Kennedy Peraza DO LAB BLOOD ORDERABLES Final Re sult [facility]ORY [facility] [address] [place] [address] * (ABNORMAL) CBC (06/02/2024 2:31 PM EST) WBC 4.32 4.00 - 10.80 K/uL 06/02/2024 2:43 PM EST [facility] RBC 3.29 3.85 - 5.15 M/uL 06/02/2024 2:43 PM EST [facility] HGB 8.7(L) 12.0 - 15.3 g/dL 06/02/2024 2:43 PM EST [facility] HCT 27.3(L) 36.0 - 45.2 % 06/02/2024 2:43 PM EST [facility] MCV 83.0 81.5 - 97.5 fL 06/02/2024 2:43 PM EST [facility] MCH 26.4 27.0 - 34.0 pg 06/02/2024 2:43 PM EST [facility] MCHC 31.9 32.0 - 36.0 g/dL 06/02/2024 2:43 PM EST [facility] RDW 18.0 11.5 - 15.5 % 06/02/2024 2:43 PM EST [facility] PLT 362 140 - 400 K/uL 06/02/2024 2:43 PM EST [facility] MPV 8.8 6.6 - 11.1 fL 06/02/2024 2:43 PM EST LABORATORY [facility] nRBCs 0 <=0 /100 WBCs 06/02/2024 2:43 PM EST LABORATORY [facility] Blood Venous blood specimen / Unknown Venipuncture / Unknown 06/02/2024 2:31 PM EST 06/02/2024 2:38 PM EST [employer] LAB BLOOD ORDERABLES Final Re sult Performing Organization Address City/[facility]/ZIP Co de Phone Number LABORATORY [address] [address] * (ABNORMAL) LD (06/02/2024 2:31 PM EST) LD 632(H) <=250 U/L 06/02/2024 2:59 PM EST LABORATORY [facility] Blood Venous blood specimen / Unknown Venipuncture / Unknown 06/02/2024 2:31 PM EST 06/02/2024 2:38 PM EST [facility] LAB BLOOD ORDERABLES Final Re sult Performing Organization Address [facility] de Phone Number LABORATORY [address] [address] documented in this encounter Visit Diagnoses Diagnosis Inflammatory arthritis- Primary Unspecified inflammatory polyarthropathy Tachycardia Tachycardia, unspecified Generalized weakness Other malaise and fatigue documented in this encounter Administered Medications Inactive Administered Medications - up to 3 most recent administrations Medication Order MAR Action Action Date Dose Rate Site Iopamidol (Isovue 370) inj 80 mL 80 mL, Intravenous, ONCE, On Sat06/02/24 at 1615, For 1 dose, Radiology Medication Routing (Non-IR) Given 06/02/2024 3:36 PM EST 80 mL isolyte 1,000 mL bolus infusion Intravenous, at 1,000 mL/hr Administer over 60 Minutes, Administer entire volume within 60 minutes or less. Plasma-LYTE 148, isolyte-S, and isolyte-S pH 7.4 are considered equivalent - including for MAR barcode scanning., ONCE, 1 dose, On Sat06/02/24 at 1430 New Bag 06/02/2024 2:30 PM EST 1,000 mL 1000 mL/hr magnesium sulfate 1 g in d5w 100mL LOCKED DOSE 1 g, IV Piggyback, ONCE, 1 dose, On Sat06/02/24 at 1430, Administer over 60 Minutes New Bag 06/02/2024 3:04 PM EST 1 g 100 mL/hr NSS 0.9% 500 mL bolus infusion Intravenous, at 500 mL/hr Administer over 60 Minutes, Administer entire volume within 60 minutes or less., ONCE, 1 dose, On Sat06/02/24 at 1600 New Bag 06/02/2024 3:37 PM EST 500 mL 500 mL/hr Prochlorperazine (Compazine) inj 5 mg 5 mg, Intravenous, ONCE, On Sat06/02/24 at 1430, For 1 dose Given 06/02/2024 2:38 PM EST 5 mg documented in this encounter Active and Recently Administered Medications Times are shown in EST. Scheduled Medication Order 05/31/2024 06/01/2024 06/02/2024 Iopamidol (Isovue 370) inj 80 mL (COMPLETED) 80 mL, Intravenous, ONCE, On Sat06/02/24 at 1615, For 1 dose, Radiology Medication Routing (Non-IR) 1536 (Given - Provid er: Tashia Snider, RT (R)) isolyte 1,000 mL bolus infusion (COMPLETED) Intravenous, at 1,000 mL/hr Administer over 60 Minutes, Administer entire volume within 60 minutes or less. Plasma-LYTE 148, isolyte-S, and isolyte-S pH 7.4 are considered equivalent - including for MAR barcode scanning., ONCE, 1 dose, On Sat06/02/24 at 1430 1430 (New Bag - Prov ider: Kylah Malloy RN)1504 (Stopped - Provider: Willie Lebron RN) magnesium sulfate 1 g in d5w 100mL LOCKED DOSE (COMPLETED) 1 g, IV Piggyback, ONCE, 1 dose, On Sat06/02/24 at 1430, Administer over 60 Minutes 1504 (New Bag - Prov ider: Willie Lebron RN)1641 (Stopped - Provider: Kylah Malloy RN) NSS 0.9% 500 mL bolus infusion (COMPLETED) Intravenous, at 500 mL/hr Administer over 60 Minutes, Administer entire volume within 60 minutes or less., ONCE, 1 dose, On Sat06/02/24 at 1600 1537 (New Bag - Prov ider: Kylah Malloy RN)1641 (Stopped - Provider: Kylah Malloy RN) Prochlorperazine (Compazine) inj 5 mg (COMPLETED) 5 mg, Intravenous, ONCE, On Sat06/02/24 at 1430, For 1 dose 1438 (Given - Provid er: Kylah Malloy RN) documented in this encounter Advance Directives * Full Code (Latest Code Status on File) Date Activated Date Inactivated Comments 06/02/2024 8:01 PM This order re flects the patients wishes and were consensually agreed upon. Question Answer Comments Discussion of Advance Directives occurred with: Patient Care Teams Drug And Alcohol Treatment Specialist Relationship Specialty Start Date End Date Payal Myers MD [address] [place] [address] PCP - General Family Medicine 01/21/24 documented as of this encounter
--- OUTSIDE RECORDS SUMMARY | 2024-07-05 06:47 | External Medical Summary ---
Author Name Unknown Address Unknown Organization K01:LABORATORY [facility] - [address] [place] [address] Laboratory Report Ordering Provider Test Date Status PATRICIA ALBERTO 06/03/2024 05:57:00 Final Anticoagulation may affect t esting. Refer to [employer] Test Catalog for a list of effects. Observation Date Value Abnormality Reference (Units ) Status aPTT panel - Platelet poor plasma 06/03/2024 05:57:00 40 Above high normal 21-38 (seconds) Final Performing Location LABORATORY [facility] - [address] [place] [address]
--- OUTSIDE RECORDS SUMMARY | 2024-07-05 06:47 | External Medical Summary ---
Author Name Unknown Address Unknown Organization K01:[facility] [address] [place] [address] Laboratory Report Ordering Provider Test Date Status PATRICIA ALBERTO 06/03/2024 05:57:00 Final Observation Date Value Abnormality Reference (Units ) Status Ferritin 06/03/2024 05:57:00 9201 Above high normal 13 -150 (ng/mL) Final Performing Location [facility] - [address] [place] [address]
--- OUTSIDE RECORDS SUMMARY | 2024-07-05 06:47 | External Medical Summary ---
Author Name Unknown Address Unknown Organization : Laboratory Report Ordering Provider Test Date Status RENE CARLSON 06/03/2024 05:57:00 Final Observation Date Value Abnormality Reference (Units ) Status IgG subclass 1 06/03/2024 05:57:00 862 382-9 29 (mg/dL) Final IgG subclass 2 06/03/2024 05:57:00 102 Below low kevin l 241-700 (mg/dL) Final IgG subclass 3 06/03/2024 05:57:00 64 22-17 8 (mg/dL) Final IgG subclass 4 06/03/2024 05:57:00 9.5 4.0-8 6.0 (mg/dL) Final IgG 06/03/2024 05:57:00 6415 375-0963 ( mg/dL) Final Test Performed at:
[facility]
[address]
[place] [address]
Rei Kimball M.D., Ph.D.,Director of Laboratories Performing Location
--- OUTSIDE RECORDS SUMMARY | 2024-07-05 06:47 | External Medical Summary | Summary of Care ---
Author Name Unknown Organization [facility] Address [address] [place] [address] Phone [phone] Care Team Providers Care Shuttle Inspector Name Role Phone Payal Myers MD Primary Care Provider [phone] Encounter Details Date Type Department Care Team (Late st Contact Info) Description 06/02/2024 Telephone Rheumatology, [place] [address] [place] [address] Jenae Guajardo MD [address] [place] [address] Allergies Active Allergy Reactions Criticality [...] No 02/28/2024 Does the household have a [facility] source of income? (Household - for [...] inflammatory arthritis who [facility] for further evaluation. Appears has had ongoing joint pain, intermittent fever and headaches in the past 2-3 weeks. Was previously admitted at [facility] on 05/20 for above symptoms, underwent sepsis evaluation and appears no etiology noted. Following discharge from [facility], had an OP visit with her PCP who noted elevated ferritin, LDH and mild elevation in transaminase levels, he did express concern for some other underlying disease like Still's and had her referred to the ER. She follows with float builder Dr. Vang/Michelle his DESK DIRECTOR at [place], was previously triedon Cimzia in February for [...] Description 06/25/2024 11:40 AM EST [facility] [place] [address] [place] [address] Payal Myers MD [address] [place] [address] 08/31/2024 8:20 AM EST Office Visit [facility] Maria E Garcia [address] [place] [address] Payal Myers MD [address] [place] [address] Health Maintenance Due Date Last Done Comments [...] filedocumented as of this encounter Care Teams Shuttle Inspector Relationship Specialty Start Date End Date Payal Myers MD [address] [place] [address] PCP - General Family Medicine 01/21/24 documented as of this encounter
--- OUTSIDE RECORDS SUMMARY | 2024-07-05 06:47 | External Medical Summary ---
Author Name Unknown Address Unknown Organization [id number]:LABORATORY [facility] - [address] [place] [address] Laboratory Report Ordering Provider Test Date Status REMYPATRICIA 06/03/2024 05:57:00 Final Observation Date Value Abnormality Reference (Units ) Status Triglyceride 06/03/2024 05:57:00 352 Above high normal <=174 (mg/dL) Final Triglyceride Reference Range s (mg/dL):
<150 Acceptable
150-174 Borderline high
175-499 High
>=500 Very high Performing Location LAB[facility]ATORY [facility] - [address] [place] [address]
--- OUTSIDE RECORDS SUMMARY | 2024-07-05 06:47 | External Medical Summary ---
Author Name Unknown Address Unknown Organization K01:LABORATORY [address] [facility] [address] Laboratory Report Ordering Provider Test Date Status PATRICIA ALBERTO 06/03/2024 05:57:00 Final Observation Date Value Abnormality Reference (Units ) Status Nuclear IgG Ab [Ratio] in Serum by Immunoassay 06/03/2024 05:57:00 Negative Negative Final DNA double strand Ab [Presence] in Serum 06/03/2024 05:57:00 Negative Negative Final DOUBLE STRANDED DNA VALUE - [facility] 06/03/2024 05:57:00 2.9 <20 (IU/mL) Final Extractable nuclear Ab [Presence] in Serum 06/03/2024 05:57:00 Negative Negative Final Nuclear IgG Ab [Ratio] in Serum by Immunoassay 06/03/2024 05:57:00 0.3 <0.7 (Ratio) Final Screening is based on detect ion of the following antibodies: dsDNA, U1-REGISTERED RADIATION THERAPIST (RNP70, A, C), SS-A/Ro, SS-B / La, [...] with Rheumatology Department.
Methodology: Fluorescent Enzyme Immunoassay. Performing Location LABORATORY [address] [facility] [address]
--- OUTSIDE RECORDS SUMMARY | 2024-07-05 06:47 | External Medical Summary ---
Author Name Unknown Address Unknown Organization [id number]:[facility] [place] [address] [address] Laboratory Report Ordering Provider Test Date Status PATRICIA ALBERTO 06/03/2024 05:57:00 Final Observation Date Value Abnormality Reference (Units ) Status CRP, low-sensitivity 06/03/2024 05:57:00 67 Above high normal <=5 (mg/L) Final Performing Location [facility] - [address] [address]
--- OUTSIDE RECORDS SUMMARY | 2024-07-05 06:47 | External Medical Summary ---
Author Name Unknown Address Unknown Organization [id number]:[facility] [place] [address] [address] Laboratory Report Ordering Provider Test Date Status PATRICIA ALBERTO 06/04/2024 05:43:00 Final Observation Date Value Abnormality Reference (Units ) Status CRP, low-sensitivity 06/04/2024 05:43:00 56 Above high normal <=5 (mg/L) Final Performing Location LAB[facility]AT[facility] - [address] [address]
--- OUTSIDE RECORDS SUMMARY | 2024-07-05 06:47 | External Medical Summary ---
Author Name Unknown Address Unknown Organization K01:LABORATORY [facility] [place] [address] [address] Laboratory Report Ordering Provider Test Date Status CELESTINA JHA 06/03/2024 09:41:07 Final Laboratory testing ordered.< br/>
PATIENT MAY NOW BE COLLECTED

Approve this testing, send to [facility].
This non-formulary test request was reviewed by Danika Witt MD

null Observation Date Value Abnormality Reference (Units ) Status REQUEST ACCEPTED/REJECTED 06/03/2024 09:41:07 Accepted Final PERFORMING LAB 06/03/2024 09:41:07 Other Final TEST CODE 06/03/2024 09:41:07 Soluble IL-2R (Soluble CD25) Final TEST DESCRIPTION 06/03/2024 09:41:07 Soluble IL-2R (Soluble CD25) Final Performing Location LABORATORY [facility] [place] - [address] [address]
--- OUTSIDE RECORDS SUMMARY | 2024-07-05 06:48 | External Medical Summary | Summary of Care ---
Author Name Unknown Organization [facility] Address [address] [place] [address] Phone [phone] Care Team Providers Care Technology Sales Specialist Name Role Phone Payal Myers MD Primary Care Provider [phone] Encounter Details Date Type Department Care Team (Late st Contact Info) Description 06/02/2024 Telephone Rheumatology, [place] [address] [place] [address] Jenae Guajardo MD [address] [place] [address] Allergies Active Allergy Reactions Criticality [...] inflammatory arthritis who is being transferred [facility] for further evaluation. Appears has had ongoing joint pain, intermittent fever and headaches in the past 2-3 weeks. Was previously admitted at [facility] on 05/20 for above symptoms, underwent sepsis evaluation and appears no etiology noted. Following discharge from [facility], had an OP visit with her PCP who noted elevated ferritin, LDH and mild elevation in transaminase levels, he did express concern for some other underlying disease like Still's and had her referred to the ER. She follows with hanger Dr. Vang/Michelle his SUBASSEMBLER at [place], was previously triedon Cimzia in February for [...] Rheumatology standpoint, we will rule out possible etiologies which would include Still's disease, HLH/MAS, SLE also in the differential with rash/arthralgia/synovitis and abnormal labs, doubt a systemic vasculitis/DM or sweet syndrome. Would also be necessary to obtain a thorough infective evaluation as could be triggers for this (Blood cultures, ? LP/CSF studies. Radiographic evaluation to exclude underlying malignancy. Recommend the following labs on presentation ; DESTINY ; EIA screen with reflexive antibodies, 2. Complement levels, 3. Urinalysis with Urine protein creatinine ratio 4. PT/INR , APTT, D-dimer 5. Fibrinogen 6. Soluble Il- 2 receptor, (sCD25 or Angelia-2R), CXCL9 6. CBC, CMP 7. Trend ESR and CRP, Ferritin, LDH and Triglyceride levels Depending on clinical findings may decide if a bone marrow biopsy is needed. documented in this encounter Plan of Treatment Upcoming Encounters Date Type Department Care Team (Late st Contact Info) Description 06/25/2024 11:40 AM EST Office Visit [facility] [place] [address] [place] [address] Payal Myers MD [address] [place] [address] 08/31/2024 8:20 AM EST [facility] [place] [address] [place] [address] Payal Myers MD [address] [place] [address] Health Maintenance Due Date Last Done Comments [...] filedocumented as of this encounter Care Teams Technology Sales Specialist Relationship Specialty Start Date End Date Payal Myers MD [address] [place] [address] PCP - General Family Medicine 01/21/24 documented as of this encounter
--- OUTSIDE RECORDS SUMMARY | 2024-07-05 06:48 | External Medical Summary ---
Author Name Unknown Address Unknown Organization K01:[facility] [place] [address] [facility] [address] Laboratory Report Ordering Provider Test Date Status RENE CARLSON 06/02/2024 14:31:48 Final Observation Date Value Abnormality Reference (Units) Status PARAPROTEIN NORMAL/ABNORMAL 06/02/2024 14:31:48 Normal Normal Final Protein 06/02/2024 14:31:48 5.9 Below low normal 6.0-8.3 (g/dL) Final Albumin/Protein.total [Pure mass fraction] in Serum or Plasma by Electrophoresis 06/02/2024 14:31:48 2.03 Below low normal 3.30-4.40 (g/dL) Final Alpha 1 globulin/Protein.tota l [Pure mass fraction] in Serum or Plasma by Electrophoresis 06/02/2024 14:31:48 0.41 Above high normal 0.10-0.30 (g/dL) Final Alpha 2 globulin/Protein.tota l [Pure mass fraction] in Serum or Plasma by Electrophoresis 06/02/2024 14:31:48 1.22 Above high normal 0.60-1.00 (g/dL) Final Beta globulin/Protein.tota l [Pure mass fraction] in Serum or Plasma by Electrophoresis 06/02/2024 14:31:48 0.70 Below low normal 0.80-1.30 (g/dL) Final Gamma globulin/Protein.tota l [Pure mass fraction] in Serum or Plasma by Electrophoresis 06/02/2024 14:31:48 1.54 0.70-1.70 (g/dL) Final Protein Fractions [Interpretation] in Serum or Plasma by Electrophoresis Narrative 06/02/2024 14:31:48 No paraprotein detected. There is a polyclonal increase in the gamma fraction. This finding may be seen in association with chronic inflammation, infection, chronic liver disease or collagen disorders. Final Performing Location [facility] [place] [address] [facility] [address]
--- OUTSIDE RECORDS SUMMARY | 2024-07-05 06:48 | External Medical Summary ---
Author Name Unknown Address Unknown Organization K01:LABORATORY [facility] - [address] [address] Laboratory Report Ordering Provider Test Date Status REMYPATRICIA 06/02/2024 22:17:00 Final Observation Date Value Abnormality Reference (Units ) Status ABO 06/02/2024 22:17:00 B Final RH 06/02/2024 22:17:00 Negative Final RED BLOOD CELL ANTIBODY SCREEN 06/02/2024 22:17:00 Negative Final SPECIMEN EXPIRATION DATE 06/02/2024 22:17:00 06/05/2024 23:59 Final Performing Location LABORATORY [facility] - [address] [address]
--- OUTSIDE RECORDS SUMMARY | 2024-07-05 06:48 | External Medical Summary | Summary of Care ---
Author Name Unknown Organization [facility] Address [address] [place] [address] Phone [phone] Care Team Providers Care Painter Mirror Name Role Phone Payal Myers MD Primary Care Provider [phone] Encounter Details Date Type Department Care Team (Late st Contact Info) Description 06/02/2024 Telephone Rheumatology, [place] [address] [place] [address] Jenae Guajardo MD [address] [place] [address] Allergies Active Allergy Reactions Criticality [...] No 02/28/2024 Does the household have a [facility] regionr source of income? (Household - for ages [...] inflammatory arthritis who is being transferred from [facility] to [facility] for further evaluation. Appears has had ongoing joint pain, intermittent fever and headaches in the past 2-3 weeks. Was previously admitted at [facility] on 05/20 for above symptoms, underwent sepsis evaluation and appears no etiology noted. Following discharge from [facility], had an OP visit with her PCP who noted elevated ferritin, LDH and mild elevation in transaminase levels, he did express concern for some other underlying disease like Still's and had her referred to the ER. She follows with waiter waitress Dr. Vang/Michelle his COKE LOADER at [place], was previously triedon Cimzia in February for [...] Description 06/25/2024 11:40 AM EST Office Visit [facility] Maria E Garcia [address] [place] [address] Payal Myers MD [address] [place] [address] 08/31/2024 8:20 AM EST Office Visit [facility] Maria E Garcia [address] [place] [address] Payal Myers MD [address] [place] [address] Health Maintenance Due Date Last Done Comments [...] filedocumented as of this encounter Care Teams Painter Mirror Relationship Specialty Start Date End Date Payal Myers MD [address] [place] [address] PCP - General Family Medicine 01/21/24 documented as of this encounter
--- OUTSIDE RECORDS SUMMARY | 2024-07-05 06:48 | External Medical Summary ---
Author Name Unknown Address Unknown Organization K01:[facility] [place] [address] [place] [address] Laboratory Report Ordering Provider Test Date Status RENE CARLSON 06/02/2024 14:31:48 Final Observation Date Value Abnormality Reference (Units ) Status DNA double strand Ab [Presence] in Serum 06/02/2024 14:31:48 Negative Negative Final DOUBLE STRANDED DNA VALUE - [facility] 06/02/2024 14:31:48 3.0 <20 (IU/mL) Final Performing Location [facility] [place] [address] [address]
--- OUTSIDE RECORDS SUMMARY | 2024-07-05 06:48 | External Medical Summary | Summary of Care ---
Author Name Unknown Organization [facility] Address [address] [place] [address] Phone [phone] Care Team Providers Care Endoscopic Technician Name Role Phone Payal Myers MD Primary Care Provider [phone] Reason for Visit * Reason Comments Outpatient Testing Encounter Details Date Type Department Care Team (Late st Contact Info) Description 06/01/2024 11:30 AM EST Laboratory Laboratory [facility] [address] [place] [id number] [facility] [address] [facility] [address] [address] Fever, unspecified fever cause; Seronegative inflammatory arthritis; Axillary lymphadenopathy; Generalized weakness; Vitamin B12 deficiency Allergies Active Allergy Reactions Criticality Noted Date Comments Sulfasalazine Rash Medium 10/23/2023 documented as of this encounter (statuses as of 06/01/2024) Medications 08/10 1-20 MG-MCG per tablet 1 [...] as of this encounter (statuses as of 06/01/2024) Active Problems Problem Noted Date Diagnosed Date 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 Iron deficiency 02/28/2024 LUDA (generalized anxiety disorder) 10/09/2023 Seronegative inflammatory arthritis 10/09/2023 documented as of this encounter (statuses as of 06/01/2024) Immunizations Name Administration Dates Next Due COVID-19 [...] AM EST documented as of this encounter Plan of Treatment Upcoming Encounters Date Type Department Care Team (Late st Contact Info) Description 06/25/2024 11:40 AM EST Office Visit [facility] [address] [place] [place] [address] Payal Myers MD [address] [place] [address] 08/31/2024 8:20 AM EST Office Visit [facility] [address] [place] [address] [place] [address] Payal Myers MD [address] [place] [address] Pending Results Name Type Priority Associated Diagnoses Date /Time COMPREHENSIVE METABOLIC PANEL Lab Routine Fever, unspecified fever cause Seronegative inflammatory arthritis 06/01/2024 11:36 AM EST CRP (INFLAMMATORY MARKER) Lab Routine Fever, unspecified fever cause Seronegative inflammatory arthritis 06/01/2024 11:36 AM EST ERYTHROCYTE SEDIMENTATION RATE (ESR) Lab Routine Fever, unspecified fever cause Seronegative inflammatory arthritis 06/01/2024 11:36 AM EST FERRITIN Lab Routine Fever, unspecified fever cause Axillary lymphadenopathy Generalized weakness 06/01/2024 11:36 AM EST HIV ANTIGEN & ANTIBODY SCREEN W/ CONFIRMATION Lab Routine Fever, unspecified fever cause Axillary lymphadenopathy Generalized weakness 06/01/2024 11:36 AM EST IRON SCREEN, INCLUDING TIBC Lab Routine Fever, unspecified fever cause Axillary lymphadenopathy Generalized weakness 06/01/2024 11:36 AM EST MAGNESIUM Lab Routine Fever, unspecified fever cause Axillary lymphadenopathy Generalized weakness 06/01/2024 11:36 AM EST TSH WITH FREE T4 IF INDICATED Lab Routine Fever, unspecified fever cause Axillary lymphadenopathy Generalized weakness 06/01/2024 11:36 AM EST VITAMIN B12 Lab Routine Vitamin B12 deficiency 06/01/2024 11:36 AM EST LIPID PANEL WITH DIRECT LDL IF TG IS HIGH Lab Routine Fever, unspecified fever cause Axillary lymphadenopathy Generalized weakness 06/01/2024 11:36 AM EST LD Lab Routine Fever, unspecified fever cause Axillary lymphadenopathy Generalized weakness 06/01/2024 11:36 AM EST INTRINSIC FACTOR BLOCKING ANTIBODY Lab Routine Vitamin B12 deficiency 06/01/2024 11:36 AM EST Health Maintenance Due Date Last [...] Date/Time Associated Diagnosis Comments DIFFERENTIAL, AUTOMATED Routine 06/01/2024 11:36 AM EST Fever, unspecified fever cause Seronegative inflammatory arthritis CBC Routine 06/01/2024 11:36 AM EST Fever, unspecified fever cause Seronegative inflammatory arthritis CBC Routine 06/01/2024 11:36 AM EST Fever, unspecified fever cause Seronegative inflammatory arthritis DIFFERENTIAL, TECHNOLOGIST REVIEW Routine 06/01/2024 11:36 AM EST Fever, unspecified fever cause Seronegative inflammatory arthritis documented in this encounter Results * DIFFERENTIAL, TECHNOLOGIST REVIEW (06/01/2024 11:36 AM EST) nRs 06/01/2024 12:15 PM EST [facility] 56-02 Blood Venous blood specimen / Unknown Venipuncture / Unknown 06/01/2024 11:36 AM EST 06/01/2024 11:36 AM EST us Payal Myers MD LAB BLOOD ORDERABLES Final Resu lt [facility] [address] [place], [place] [id number] * (ABNORMAL) DIFFERENTIAL, AUTOMATED (06/01/2024 11:36 AM EST) WBC 3.53(L) 4.00 - 10.80 K/uL 06/01/2024 12:15 PM EST [facility] 56-02 Neutrophils % 86.4(H) 40.0 - 75.0 % 06/01/2024 12:15 PM EST [facility] 56-02 Lymphocytes % 10.2(L) 18.0 - 42.0 % 06/01/2024 12:15 PM EST [facility] 56- Monocytes % 3.1 1.0 - 11.0 % 06/01/2024 12:15 PM EST [facility] 56- Eosinophils % 0.3 0.0 - 6.0 % 06/01/2024 12:15 PM EST [facility] 56- Basophils % 0.0 0.0 - 2.0 % 06/01/2024 12:15 PM EST [facility] 56- Absolute Neutrophils 3.05 1.80 - 7.70 K/uL 06/01/2024 12:15 PM EST [facility] 56- Absolute Lymphocytes 0.36(L) 1.00 - 4.80 K/ul 06/01/2024 12:15 PM EST [facility] 56- Absolute Monocytes 0.11 0.00 - 1.10 K/uL 06/01/2024 12:15 PM [facility] 56- Absolute Eosinophils 0.01 0.00 - 0.70 K/uL 06/01/2024 12:15 PM [facility] 56 Absolute Basophils 0.00 0.00 - 0.20 K/uL 06/01/2024 12:15 PM [facility] 56 Blood Venous blood specimen / Unknown Venipuncture / Unknown 06/01/2024 11:36 AM EST 06/01/2024 11:36 AM EST us Payal Myers MD LAB BLOOD ORDERABLES Final Resu lt [facility] [address] [place] [address] * (ABNORMAL) CBC (06/01/2024 11:36 AM EST) WBC 3.53(L) 4.00 - 10.80 K/uL 06/01/2024 12:15 PM EST [facility] 56- RBC 3.83 3.85 - 5.15 M/uL 06/01/2024 12:15 PM [facility] 56- HGB 10.2(L) 12.0 - 15.3 g/dL 06/01/2024 12:15 PM [facility] 56 HCT 31.9(L) 36.0 - 45.2 % 06/01/2024 12:15 PM [facility] 56 MCV 83.3 81.5 - 97.5 fL 06/01/2024 12:15 PM [facility] 56 MCH 26.6 27.0 - 34.0 pg 06/01/2024 12:15 PM [facility] 56 MCHC 32.0 32.0 - 36.0 g/dL 06/01/2024 12:15 PM [facility] 56 RDW 18.8 11.5 - 15.5 % 06/01/2024 12:15 PM [facility] 56 PLT 438(H) 140 - 400 K/uL 06/01/2024 12:15 PM [facility] 56 MPV 8.6 6.6 - 11.1 fL 06/01/2024 12:15 PM [facility] 56 Blood Venous blood specimen / Unknown Venipuncture / Unknown 06/01/2024 11:36 AM EST 06/01/2024 11:36 AM EST us Payal Myers MD LAB BLOOD ORDERABLES Final Resu lt [facility] [address] [facility] [facility] [address] documented in this encounter Visit Diagnoses Diagnosis Fever, unspecified fever cause Seronegative inflammatory arthritis Axillary lymphadenopathy Enlargement of lymph nodes Generalized weakness Other malaise and fatigue Vitamin B12 deficiency Other B-complex deficiencies documented in this encounter Care Teams Endoscopic Technician Relationship Specialty Start Date End Date Payal Myers MD [address] [address] PCP - General Family Medicine 01/21/24 documented as of this encounter
--- OUTSIDE RECORDS SUMMARY | 2024-07-05 06:48 | External Medical Summary ---
Author Name Unknown Address Unknown Organization K01:LABORATORY [facility] [place] - [address] [address] Laboratory Report Ordering Provider Test Date Status SIGRID SELLERS 06/02/2024 14:31:48 Final Observation Date Value Abnormality Reference (Units ) Status Linnea Khalil virus capsid IgG Ab avidity [Presence] in Serum by Immunoassay 06/02/2024 14:31:48 Positive Abnormal Negative Final Linnea Khalil virus capsid IgM Ab [Presence] in Serum by Immunoassay 06/02/2024 14:31:48 Negative Negative Final Linnea Khalil virus nuclear IgG Ab [Presence] in Serum by Immunoassay 06/02/2024 14:31:48 Negative Negative Final Performing Location LABORATORY [facility] [place] - [address] [address]
--- OUTSIDE RECORDS SUMMARY | 2024-07-05 06:48 | External Medical Summary ---
Author Name Unknown Address Unknown Organization K01:LABORATORY [facility] [place] [facility] - [address] [address] Laboratory Report Ordering Provider Test Date Status PATRICIA ALBERTO 06/02/2024 22:17:00 Final Observation Date Value Abnormality Reference (Units ) Status ABO 06/02/2024 22:17:00 B Final RH 06/02/2024 22:17:00 Negative Final Performing Location LABORATORY [facility] [place] [facility] - [address] [address]
--- OUTSIDE RECORDS SUMMARY | 2024-07-05 06:48 | External Medical Summary | Summary of Care ---
Author Name Unknown Organization [facility] Address [address] [place] [address] Phone [phone] Care Team Providers Care Channel Executive Name Role Phone Payal Myers MD Primary Care Provider Reason for Visit * Reason Onset Date Comments Follow Up 06/01/2024 Encounter Details Date Type Department Care Team (Late st Contact Info) Description 06/01/2024 Telephone Family Practice [facility] 200 [facility] [address] Payal Myers MD 200 [facility] [place] [address] Follow Up Allergies Active Allergy Reactions Criticality [...] at bedtime. 90 Tablet 3 05/18/2024 06/08/20 Active Naratriptan HCl 2.5 MG Oral Tablet [...] 11:40 AM EST Office [facility] [address] [place] [address] Payal Myers MD [address] [place] [address] 08/31/2024 8:20 AM EST Office Visit [facility] [address] [place] [address] [place] [address] Payal Myers MD [address] [place] [address] Health Maintenance Due Date Last Done Comments [...] filedocumented as of this encounter Care Teams Channel Executive Relationship Specialty Start Date End Date Payal Myers MD 200 [facility] [place] [address] PCP - General Family Medicine 01/21/24 documented as of this encounter
--- OUTSIDE RECORDS SUMMARY | 2024-07-05 06:48 | External Medical Summary | Summary of Care ---
Author Name Unknown Organization [facility] Address [address] [place] [address] Phone [phone] Care Team Providers Care Sill Worker Name Role Phone Payal Myers MD Primary Care Provider [phone] Reason for Visit * Reason Comments Outpatient Testing Encounter Details Date Type Department Care Team (Late st Contact Info) Description 06/01/2024 11:30 AM EST Laboratory Laboratory [facility] [address] [place] [id number] [facility] [address] [facility] [place] [address] Fever, unspecified fever cause; Seronegative inflammatory arthritis; [...] Description 06/25/2024 11:40 AM EST Office Visit [facility] [place] [address] Payal Myers MD [address] [place] [address] 08/31/2024 8:20 AM EST Office Visit [facility] [place] [address] [place] [address] Payal Myers MD [address] [place] [address] Pending Results Name Type Priority Associated Diagnoses Date /Time CBC WITH WBC DIFFERENTIAL Lab Routine Fever, unspecified fever cause Seronegative inflammatory arthritis 06/01/2024 11:36 AM EST COMPREHENSIVE METABOLIC PANEL Lab Routine Fever, unspecified [...] Vitamin B12 deficiency 06/01/2024 11:36 AM EST CBC Lab Routine Fever, unspecified fever cause Seronegative inflammatory arthritis 06/01/2024 11:36 AM EST DIFFERENTIAL, AUTOMATED Lab Routine Fever, unspecified fever cause Seronegative inflammatory arthritis 06/01/2024 11:36 AM EST Health Maintenance Due [...] as of this encounter Visit Diagnoses Diagnosis Fever, unspecified fever cause Seronegative inflammatory arthritis Axillary lymphadenopathy Enlargement of lymph nodes Generalized weakness Other malaise and fatigue Vitamin B12 deficiency Other B-complex deficiencies documented in this encounter Care Teams Sill Worker Relationship Specialty Start Date End Date Payal Myers MD [address] [place] [address] PCP - General Family Medicine 01/21/24 documented as of this encounter
--- OUTSIDE RECORDS SUMMARY | 2024-07-05 06:48 | External Medical Summary ---
Author Name Unknown Address Unknown Organization K1F:[facility] - [address] [address] Laboratory Report Ordering Provider Test Date Status AGATHA SELLERSJACEK 06/02/2024 14:31:48 Final Observation Date Value Abnormality Reference (Units ) Status LDH 06/02/2024 14:31:48 632 Above high normal <= 250 (U/L) Final Performing Location [facility] - [address] [address]
--- OUTSIDE RECORDS SUMMARY | 2024-07-05 06:48 | External Medical Summary | Summary of Care ---
Author Name Unknown Organization [facility] Address [address] [place] [address] Phone [phone] Care Team Providers Care Middle [employer] History Teacher Name Role Phone Payal Myers MD Primary Care Provider [phone] Encounter Details Date Type Department Care Team (Late st Contact Info) Description 06/01/2024 Orders Only Family Practice [facility] 200 [facility] [place] [address] Payal Myers MD 200 [facility] [place] [address] Allergies Active Allergy Reactions Criticality Noted Date [...] No 02/28/2024 Does the household have a [facility]ension [facility] hospitalr source of income? (Household - for [...] 11:40 AM EST Office Visit Family Practice [facility] [address] [place] [address] Payal Myers MD [address] [place] [address] 08/31/2024 8:20 AM EST Office Visit Family Practice [facility] [place] [address] [place] [address] Payal Myers MD [address] [place] [address] Health Maintenance Due Date Last Done Comments [...] Procedure Name Priority Date/Time Associated Diagnosis Comments CTA CHEST NON-CORONARY W CONTRAST Routine 05/20/2024 documented in this encounter Results * CTA CHEST NON-CORONARY W CONTRAST (05/20/2024) Anatomical Region Laterality Modality Chest, Cardio, Body Other 05/20/2024 us History Per Patient RAD CT Final Result documented in this encounter Care Teams Middle [employer] History Teacher Relationship Specialty Start Date End Date Payal Myers MD [address] [place] [address] PCP - General Family Medicine 01/21/24 documented as of this encounter
--- OUTSIDE RECORDS SUMMARY | 2024-07-05 06:48 | External Medical Summary ---
Author Name Unknown Address Unknown Organization [id number]:LABORATORY [facility] - [address] [address] Laboratory Report Ordering Provider Test Date Status RENE CARLSON 06/02/2024 14:31:48 Final Observation Date Value Abnormality Reference (Units) Status PARAPROTEIN NORMAL/ABNORMAL 06/02/2024 14:31:48 Normal Normal Final Immunofixation for Serum or Plasma 06/02/2024 14:31:48 No monoclonal gammopathy detected. Final Performing Location LABORATORY [facility] - [address] [address]
--- OUTSIDE RECORDS SUMMARY | 2024-07-05 06:48 | External Medical Summary ---
Author Name Unknown Address Unknown Organization K1F:LABORATORY [facility] - [address] [address] Laboratory Report Ordering Provider Test Date Status MARLOAGATHAJACEK 06/02/2024 14:31:48 Final Observation Date Value Abnormality Reference (Units ) Status Bilirubin, Direct 06/02/2024 14:31:48 <0.2 0. 0-0.3 (mg/dL) Final Performing Location [facility] - [address] [address]
--- OUTSIDE RECORDS SUMMARY | 2024-07-05 06:48 | External Medical Summary ---
Author Name Unknown Address Unknown Organization K01:LABORATORY [facility] - [facility] [address] [address] Laboratory Report Ordering Provider Test Date Status SIGRID SELLERS 06/02/2024 14:31:48 Final Observation Date Value Abnormality Reference (Units ) Status Borrelia burgdorferi IgG and IgM [Interpretation] in Serum by Immunoassay 06/02/2024 14:31:48 Negative Negative Final Performing Location LABORATORY [facility] - [facility] [address] [place] [address]
--- OUTSIDE RECORDS SUMMARY | 2024-07-05 06:48 | External Medical Summary | Summary of Care ---
Author Name Unknown Organization [facility] Address [address] [place] [address] Phone [phone] Care Team Providers Care Tourist Escort Name Role Phone Payal Myers MD Primary Care Provider Reason for Visit * Reason Onset Date Comments Follow Up 06/01/2024 Encounter Details Date Type Department Care Team (Late st Contact Info) Description 06/01/2024 Telephone Family Practice [facility] 200 [facility] [place] [address] Payal Myers MD 200 [facility] [place] [address] Follow Up Allergies Active Allergy Reactions Criticality [...] 11:40 AM EST Office Visit [facility] [place] [address] [place] [address] Payal Myers MD [address] [place] [address] 08/31/2024 8:20 AM EST Office Visit [facility] S[place] [address] [place] [address] Payal Myers MD [address] [place] [address] Health Maintenance Due Date Last Done Comments [...] filedocumented as of this encounter Care Teams Tourist Escort Relationship Specialty Start Date End Date Payal Myers MD 200 [facility] [place] [address] PCP - General Family Medicine 01/21/24 documented as of this encounter
--- OUTSIDE RECORDS SUMMARY | 2024-07-05 06:48 | External Medical Summary ---
Author Name Unknown Address Unknown Organization K01:LABORATORY [facility] - [address] [address] Laboratory Report Ordering Provider Test Date Status PATRICIA ALBERTO 06/02/2024 22:17:00 Final Observation Date Value Abnormality Reference (Units ) Status Bacteria identified in Specimen by Culture 06/02/2024 22:17:00 No growth Final Test: Culture, Blood (Site 2 )
Specimen Source: Blood, Venous
Specimen Type: Blood
Specimen Date: 06/02/20242216
Result Date: 06/07/20242301
Result Status: Final result
Resulting Lab: LABORATORY [facility]
[address]
[place] [address]

CULTURE

No growth

null Performing Location LABORATORY [facility] - [address] [address]
--- OUTSIDE RECORDS SUMMARY | 2024-07-05 06:48 | External Medical Summary ---
Author Name Unknown Address Unknown Organization K1F:[facility] [address] [facility] [place] [address] Laboratory Report Ordering Provider Test Date Status SIGRID SELLERS 06/02/2024 14:31:48 Final Observation Date Value Abnormality Reference (Units ) Status BUN 06/02/2024 14:31:48 10 6-20 (mg/dL) Final Creatinine 06/02/2024 14:31:48 0.5 0.5-1.0 (mg/dL) Final Glomerular filtration rate/1.73 sq M.predicted [Volume Rate/Area] in Serum, Plasma or Blood by Creatinine-based formula (CKD-EPI) 06/02/2024 14:31:48 >90 >=60 (mL/min) Final eGFR is calculated based on the CKD-EPI 2020 equation. Sodium 06/02/2024 14:31:48 130 Below low normal 135 -146 (mmol/L) Final Potassium 06/02/2024 14:31:48 4.4 3.5-5.1 (m mol/L) Final Cl 06/02/2024 14:31:48 97 Below low normal 98- 107 (mmol/L) Final CO2 06/02/2024 14:31:48 22 22-32 (mmo l/L) Final Anion gap 06/02/2024 14:31:48 11 7-15 (mmol /L) Final Glucose 06/02/2024 14:31:48 89 70-120 (mg /dL) Final Albumin 06/02/2024 14:31:48 2.6 Below low normal 3.8 -5.0 (g/dL) Final AST (Aspartate aminotransferase) 06/02/2024 14:31:48 156 Above high normal 10-35 (U/L) Final Alk Phos 06/02/2024 14:31:48 112 35-130 (U/ L) Final Bilirubin, Total 06/02/2024 14:31:48 0.3 <=1 .2 (mg/dL) Final Calcium 06/02/2024 14:31:48 7.8 Below low normal 8.4 -10.2 (mg/dL) Final Protein 06/02/2024 14:31:48 6.2 6.0-8.3 (g /dL) Final ALT (Alanine aminotransferase) 06/02/2024 14:31:48 47 Above high normal 10-35 (U/L) Final Performing Location LABORATORY [facility] - [facility] [address] [address]
--- OUTSIDE RECORDS SUMMARY | 2024-07-05 06:48 | External Medical Summary ---
Author Name Unknown Address Unknown Organization K01:LABORATORY [address] [facility] [address] Laboratory Report Ordering Provider Test Date Status SIGRID SELLERS 06/02/2024 14:31:48 Final Observation Date Value Abnormality Reference (Units ) Status Anaplasma phagocytophilum DNA [Presence] in Blood by TRE with probe detection 06/02/2024 14:31:48 Negative Negative Final No Anaplasma phagocytophilum detected by PCR (amplified probe).
This test was developed, and its performance characteristics determined by [facility]. It has not been cleared or approved by the FDA. The laboratory is regulated under CLIA as qualified to perform high-complexity testing. This test is used for clinical purposes. It should not be regarded as investigational or for research. Babesia sp DNA [Presence] in Blood by TRE with probe detection 06/02/2024 14:31:48 Negative Negative Final No Babesia species detected by PCR (amplified probe).
This test was developed, and its performance characteristics determined by [facility]. It has not been cleared or approved by the FDA. The laboratory is regulated under CLIA as qualified to perform high-complexity testing. This test is used for clinical purposes. It should not be regarded as investigational or for research. Performing Location LABORATORY [place] [address] [facility] [address] [facility] [address]
--- OUTSIDE RECORDS SUMMARY | 2024-07-05 06:48 | External Medical Summary | Summary of Care ---
Author Name Unknown Organization [facility] Address [address] [place] [address] Phone [phone] Care Team Providers Care Transportation Department Head Name Role Phone Payal Myers MD Primary Care Provider [phone] Reason for Visit * Reason Onset Date Comments Follow Up 06/01/2024 Encounter Details Date Type Department Care Team (Late st Contact Info) Description 06/01/2024 Telephone Family Practice [facility] 200 [facility] [place] [address] Payal Myers MD [address] [facility] [place] [address] Follow Up Allergies Active Allergy Reactions Criticality [...] 11:40 AM EST Office [facility] [place] [address] [place] [address] Payal Myers MD [address] [place] [address] 08/31/2024 8:20 AM EST Office Visit [facility] [address] [place] [address] [place] [address] Payal Myers MD [address] [place] [address] Health Maintenance Due Date Last Done Comments [...] filedocumented as of this encounter Care Teams Transportation Department Head Relationship Specialty Start Date End Date Payal Myers MD 200 [facility] [place] [address] PCP - General Family Medicine 01/21/24 documented as of this encounter
--- OUTSIDE RECORDS SUMMARY | 2024-07-05 06:48 | External Medical Summary ---
Author Name Unknown Address Unknown Organization K01:LABORATORY [facility] - [address] [place] [address] Laboratory Report Ordering Provider Test Date Status RENE MCKENNA 06/02/2024 14:31:48 Final Observation Date Value Abnormality Reference (Units ) Status Haptoglobin 06/02/2024 14:31:48 496 Above high normal 30-200 (mg/dL) Final Performing Location LABORATORY [facility] - [address] [place] [address]
--- OUTSIDE RECORDS SUMMARY | 2024-07-05 06:48 | External Medical Summary ---
Author Name Unknown Address Unknown Organization K1F:LABORATORY [facility] - [address] [address] Laboratory Report Ordering Provider Test Date Status SIGRID SELLERS 06/02/2024 14:31:48 Final Observation Date Value Abnormality Reference (Units ) Status WBC, Total 06/02/2024 14:31:48 4.32 4.00-10.80 (K/uL) Final RBC 06/02/2024 14:31:48 3.29 3.85-5.15 (M/uL) Final Hemoglobin 06/02/2024 14:31:48 8.7 Below low normal 12.0-15.3 (g/dL) Final HCT 06/02/2024 14:31:48 27.3 Below low normal 36.0-45.2 (%) Final MCV 06/02/2024 14:31:48 83.0 81.5-97.5 (fL) Final MCH 06/02/2024 14:31:48 26.4 27.0-34.0 (pg) Final MCHC 06/02/2024 14:31:48 31.9 32.0-36.0 (g/dL) Final RDW 06/02/2024 14:31:48 18.0 11.5-15.5 (%) Final Platelets 06/02/2024 14:31:48 362 140-400 (K/uL) Final MPV 06/02/2024 14:31:48 8.8 6.6-11.1 (fL) Final Nucleated erythrocytes/100 leukocytes [Ratio] in Blood by Automated count 06/02/2024 14:31:48 0 <=0 (/100 WBCs) Final Performing Location LABORATORY [facility] - [address] [address]
--- OUTSIDE RECORDS SUMMARY | 2024-07-05 06:48 | External Medical Summary | Summary of Care ---
Author Name Unknown Organization [facility] Address [address] [place] [address] Phone [phone] Care Team Providers Care Sprinkler Fitter Helper Name Role Phone Payal Myers MD Primary Care Provider [phone] Reason for Visit * Reason Comments Hospital Follow-Up Encounter Details Date Type Department Care Team (Late st Contact Info) Description 05/29/2024 4:00 PM EST Office Visit Family [facility] [address] [facility] [place] [address] Payal Myers MD 200 [facility] [place] [address] Fever, unspecified fever cause*; Seronegative inflammatory arthritis; Axillary lymphadenopathy; Generalized weakness; [...] daily for 14 days. 140 Tablet 4 024 Active Topiramate 25 MG Oral Tablet (topAMAX) Take 1 Tablet by mouth every night at bedtime for 7 days, THEN 2 Tablets every night at bedtime for 7 days, THEN 3 Tablets every night at bedtime for 7 days, THEN 4 Tablets every night at bedtime. 90 Tablet 3 4 025 Active Naratriptan HCl 2.5 MG Oral Tablet (Amerge) Take 1 Tablet by mouth as needed for Migraine (take 1 tab by mouth at start of headache, may repeat once after 4 hours; may use up to 2 days a week). 10 Tablet 2 4 Active Baclofen 5 MG Oral Tablet (Lioresal) Take 1 Tablet by mouth at bedtime as needed for Muscle spasms (for neck and jaw pain). 20 Tablet 3 4 Active B-12 500 MCG Oral Tablet Take 2 Tablets by mouth in the morning. 4 Active Probiotic 250 MG Oral Capsule TAKE 2 CAPSULE BY MOUTH DAILY 4 Active OXcarbazepine 300 MG Oral Tablet (Trileptal)Ind ications:Left- sided headache Take 1 Tablet by mouth in the morning and 1 Tablet before bedtime. 60 Tablet 3 4 024 Discontinued documented as of this encounter [...] below, 2-Dose 02/06/2013,02/05/2012 Hepatitis B, 0-19 yrs 1997,1997, IPV - Polio Virus Vaccine (Inact) 2001,04/20/1998,1997,06/22 [...] No 02/28/2024 Does the household have a [facility] source of income? (Household - [...] Sign Reading Time Taken Comments Blood Pressure 104/62 05/29/2024 3:57 PM EST Pulse 132 05/29/2024 3:57 PM EST Temperature 38.4 C (101.1 F) 05/29/2024 3:[address] Respiratory Rate 18 05/29/2024 3:57 PM EST Oxygen Saturation 98% 05/29/2024 3:57 PM EST Inhaled Oxygen Concentration - - Weight 53.6 kg (118 lb 1.9 oz) 05/29/2024 3:57 P M EST Height - - Body Mass Index 19.8 05/14/2024 11:10 AM EDT documented in this encounter Progress Notes * Payal Myers MD - 05/29/2024 4:03 PM EST Subjective Chief Complaint Patient presents with Hospital Follow-Up HPI: Bhavin Wilson is a 29 year old female. The following issues were addressed today: Date of admission: 05/20/24 Date of discharge: 05/23/24 Hospital course: 29 year old with seronegative inflammatory arthritis, new onset left-sided headaches presented to [facility] with fever, chills, joint pain, and weakness. She met SIRS criteria and was admitted for infectious work-up. Significant labs included: WBC 2.34, Hgb 10.1, Hct 31.2, abs lymph 0.44, D-dimer 2740, calcium 7.9, iron 13, ferritin 3444, AST 175, ALT 52, CRP 7.2, vitamin B12 155. Viral panel, UA, chest x-ray, and CTA chest were negative. Venous Doppler was also negative for DVT. Her symptoms were suspected to be due to a drug reaction to Amjevita, which she started 2 weeks ago. Currently is on a prednisone taper. She was given IV Venofer in the hospital and started on PO vitamin B12. Tests/studies pending at time of discharge: None Home/outpatient services ordered: None Course since hospitalization: Patient reports she is not feeling much better since discharge. She continues to have diffuse joint pain, generalized weakness, and waxing and waning fevers. She is febrile in the office today with a temperature of 101.1F and is tachycardia in the 130s. Continues to have left- sided headache. Review of Systems: See HPI Objective BP 104/62 | Pulse 132 | Temp (!) 38.4 C (101.1 F) (Tympanic) | Resp 18 | Wt 53.6 kg (118 lb 1.9oz) | SpO2 98% | BMI 19.80 kg/m | BSA 1.56 m Wt Readings from Last 3 Encounters: 06/02/24 53.5 kg (118 lb) 05/29/24 53.6 kg (118 lb 1.9 oz) 05/14/24 55.7 kg (122 lb 12 oz) BP Readings from Last 3 Encounters: 06/02/24 99/42 05/29/24 104/62 05/14/24 102/58 General: Mildly ill-appearing, no acute distress Cardiovascular: Regular rhythm, tachycardic, no murmur Respiratory: Good respiratory effort, breath sounds equal and clear to auscultation bilaterally Neurological: Alert and oriented, no focal deficits noted Psychiatric: Appropriate mood and affect Assessment & Plan 1. Fever, unspecified fever cause - CBC WITH WBC DIFFERENTIAL; Future - COMPREHENSIVE METABOLIC PANEL; Future - CRP (INFLAMMATORY MARKER); Future - ERYTHROCYTE SEDIMENTATION RATE (ESR); Future - FERRITIN; Future - HIV ANTIGEN & ANTIBODY SCREEN W/ CONFIRMATION; Future - IRON SCREEN, INCLUDING TIBC; Future - MAGNESIUM; Future - TSH WITH FREE T4 IF INDICATED; Future - LIPID PANEL WITH DIRECT LDL IF TG IS HIGH; Future - LD; Future 2. Seronegative inflammatory arthritis - CBC WITH WBC DIFFERENTIAL; Future - COMPREHENSIVE METABOLIC PANEL; Future - CRP (INFLAMMATORY MARKER); Future - ERYTHROCYTE SEDIMENTATION RATE (ESR); Future 3. Axillary lymphadenopathy - FERRITIN; Future - HIV ANTIGEN & ANTIBODY SCREEN W/ CONFIRMATION; Future - IRON SCREEN, INCLUDING TIBC; Future - MAGNESIUM; Future - TSH WITH FREE T4 IF INDICATED; Future - LIPID PANEL WITH DIRECT LDL IF TG IS HIGH; Future - LD; Future 4. Generalized weakness - FERRITIN; Future - HIV ANTIGEN & ANTIBODY SCREEN W/ CONFIRMATION; Future - IRON SCREEN, INCLUDING TIBC; Future - MAGNESIUM; Future - TSH WITH FREE T4 IF INDICATED; Future - LIPID PANEL WITH DIRECT LDL IF TG IS HIGH; Future - LD; Future 5. Vitamin B12 deficiency - VITAMIN B12; Future - INTRINSIC FACTOR BLOCKING ANTIBODY; Future ?Medication reaction versus possible adult-onset Still's disease Will check additional labs and touch base with rheumatology Will follow-up with patient via phone call when labs resulted Hold off on scheduling IV iron for now as recommended by the ER, discussed cytopenia and elevated ferritin are more likely reactive in nature and not related to true iron deficiency anemia Follow Up: Return for follow-up as scheduled or sooner as needed. This note was electronically signed by Payal Myers MD documented in this encounter Nursing Notes * Cynthia Bay LPN - 05/29/2024 3:51 PM EST Bhavin Espinoza Steve presents for hospital follow up. Medications & HM reviewed. C/O still feeling fatigued. Says she needs to schedule iron infusion Has finished antibiotic states she is feeling a little better but not normal. Mother would like to discuss heart concerns that were brought up in hospital documented in this encounter Plan of Treatment Upcoming Encounters Date Type Department Care Team (Late st Contact Info) Description 06/25/2024 11:40 AM EST Office Visit [facility] [place] [address] [facility] [place] [address] Payal Myers MD 200 [facility] [place] [address] 08/31/2024 8:20 AM EST Office Visit [facility] [place] [address] [place] [address] Payal Myers MD 200 [facility] [place] [address] Pending Results Name Type Priority Associated Diagnoses Date /Time INTRINSIC FACTOR BLOCKING ANTIBODY Lab Routine Vitamin B12 deficiency 06/01/2024 11:36 AM EST Scheduled Orders Name Type Priority Associated Diagnoses Orde r Schedule INTRINSIC FACTOR BLOCKING ANTIBODY Lab Routine Vitamin B12 deficiency Expected: 06/01/2024, Expires: 06/01/2025 Health Maintenance Due Date Last Done Comments [...] filedocumented as of this encounter Results * (ABNORMAL) LD (06/01/2024 11:36 AM EST) LD 633(H) <=250 U/L 06/01/2024 9:42 PM EST LABORATORY [facility] Blood Venous blood specimen / Unknown Venipuncture / Unknown 06/01/2024 11:36 AM EST 06/01/2024 11:36 AM EST Payal Myers MD LAB BLOOD ORDERABLES Final Resu lt Performing Organization Address City/State/[facility] Co de Phone Number LABORATORY [facility] [address] [place] [address] * (ABNORMAL) LIPID PANEL WITH DIRECT LDL IF TG IS HIGH (06/01/2024 11:36 AM EST) Triglycerides 456(H) <=174 mg/dL 06/01/2024 9:42 PM EST LAB[facility]ATORY [facility] Comment: Triglyceride Reference Ranges (mg/dL): <150 Acceptable 150-174 Borderline high 175-499 High >=500 Very high Cholesterol 151 <200 mg/dL 06/01/2024 9:42 PM EST LABORATORY [facility] Comment: Total Cholesterol Reference Ranges (mg/dL): <200 Desirable 200-239 Borderline high >=240 High HDL Cholesterol 14(L) >49 mg/dL 9:42 PM EST LABORATORY [facility] Comment: HDL Cholesterol Reference Ranges (mg/dL): >=60 High (Desirable) <50 Low (Undesirable) For Females <40 Low (Undesirable) For Males Non-HDL Cholesterol 137 <=159 mg/dL 06/01/2024 9:42 PM EST LABORATORY [facility] Comment: Non-HDL Cholesterol Reference Range (mg/dL): <100 Target level for high risk ASCVD patient <130 Optimal for general population 130-159 Near optimal for general population 160-189 Borderline High 190-219 High >=220 Very High Blood Venous blood specimen / Unknown Venipuncture / Unknown 06/01/2024 11:36 AM EST 06/01/2024 11:36 AM EST Payal Myers MD LAB BLOOD ORDERABLES Final Resu lt Performing Organization Address City/[facility]/ZIP Co de Phone Number LABORATORY [facility] [address] [place] [address] * VITAMIN B12 (06/01/2024 11:36 AM EST) Vitamin B12 331 232 - 1,245 pg/mL 06/01/2024 11:18 PM EST LAB[facility]ATORY [facility] Blood Venous blood specimen / Unknown Venipuncture / Unknown 06/01/2024 11:36 AM EST 06/01/2024 11:36 AM EST Payal Myers MD LAB BLOOD ORDERABLES Final Resu lt Performing Organization Address [facility] de Phone Number LABORATORY [facility] [address] [place] [address] * (ABNORMAL) TSH WITH FREE T4 IF INDICATED (06/01/2024 11:36 AM EST) Pathologist [facility] TSH 10.60(H) 0.27 - 4.20 uIU/mL 06/01/2024 10:54 PM EST LABORATORY [facility] Blood Venous blood specimen / Unknown Venipuncture / Unknown 06/01/2024 11:36 AM EST 06/01/2024 11:36 AM EST us Payal Myers MD LAB BLOOD ORDERABLES Final Resu lt Performing Organization Address City/[facility] Co de Phone Number LAB[facility]ATORY [facility] [address] [place] [address] * MAGNESIUM (06/01/2024 11:36 AM EST) Pathologist [facility] Magnesium 2.2 1.5 - 2.6 mg/dL 06/01/2024 12:53 PM EST LAB[facility]ATORY [facility] Blood Venous blood specimen / Unknown Venipuncture / Unknown 06/01/2024 11:36 AM EST 06/01/2024 11:36 AM EST us Payal Myers MD LAB BLOOD ORDERABLES Final Resu lt LABORATORY [facility] [address] [place] [address] * (ABNORMAL) IRON SCREEN, INCLUDING TIBC (06/01/2024 11:36 AM EST) Iron 32(L) 33 - 151 ug/dL 06/01/2024 9:42 PM EST [facility] Iron Binding Capacity 179(L) 250 - 425 ug/dL 06/01/2024 9:42 PM EST [facility] Transferrin Saturation Percent 18 15 - 55 % 06/01/2024 9:42 PM EST LAB[facility]ATORY [facility] Blood Venous blood specimen / Unknown Venipuncture / Unknown 06/01/2024 11:36 AM EST 06/01/2024 11:36 AM EST us Payal Myers MD LAB BLOOD ORDERABLES Final Resu lt LABORATORY [facility] [address] [place] [address] * HIV ANTIGEN & ANTIBODY SCREEN W/ CONFIRMATION (06/01/2024 11:36 AM EST) Pathologist [facility] HIV Antigen & Antibody Negative Negative 06/01/2024 9:55 PM EST [facility] Comment:Negative HIV-1/2 ant igen and antibody screening tset results usually indicate the absence of HIV-1 and HIV-2 infection. However, such negative results do not rule-out acute HIV infection. If acute HIV-1 infection is highly suspected, it is recommended that a specimen be submitted for detection of HIV-1 RNA. Blood Venous blood specimen / Unknown Venipuncture / Unknown 06/01/2024 11:36 AM EST 06/01/2024 11:36 AM EST us Payal Myers MD LAB BLOOD ORDERABLES Final Resu lt Performing Organization Address [facility] Co de Phone Number LAB[facility]ATORY [facility] [address] [place] [address] * (ABNORMAL) FERRITIN (06/01/2024 11:36 AM EST) Ferritin 9,974(H) 13 - 150 ng/mL 06/01/2024 11:18 PM EST [facility] Blood Venous blood specimen / Unknown Venipuncture / Unknown 06/01/2024 11:36 AM EST 06/01/2024 11:36 AM EST us Payal Myers MD LAB BLOOD ORDERABLES Final Resu lt Performing Organization Address [facility] de Phone Number LAB[facility]ATORY [facility] [address] [place] [address] * (ABNORMAL) ERYTHROCYTE SEDIMENTATION RATE (ESR) (06/01/2024 11:36 AM EST) Pathologist [facility] ESR 47(H) <20 mm/hour 06/01/2024 8:30 PM EST [facility] Blood Venous blood specimen / Unknown Venipuncture / Unknown 06/01/2024 11:36 AM EST 06/01/2024 11:36 AM EST us Payal Myers MD LAB BLOOD ORDERABLES Final Resu lt Performing Organization Address [facility] de Phone Number LABORATORY [facility] [address] [place] [address] * (ABNORMAL) CRP (INFLAMMATORY MARKER) (06/01/2024 11:36 AM EST) CRP (Inflammatory Marker) 65(H) <=5 mg/L 06/01/2024 9:42 PM EST [facility] Blood Venous blood specimen / Unknown Venipuncture / Unknown 06/01/2024 11:36 AM EST 06/01/2024 11:36 AM EST us Payal Myers MD LAB BLOOD ORDERABLES Final Resu lt LAB[facility]ATORY [facility] [address] [place] [address] * (ABNORMAL) COMPREHENSIVE METABOLIC PANEL (06/01/2024 11:36 AM EST) BUN 10 6 - 20 mg/dL 06/01/2024 12:53 PM EST [facility] CREATININE 0.5 0.5 - 1.0 mg/dL 06/01/2024 12:53 PM EST [facility] 5602 EGFR >90 >=60 mL/min 06/01/2024 12:53 PM [facility] 56 Comment:eGFR is calculated b ased on the CKD-EPI 2020 equation. SODIUM 135 135 - 146 mmol/L 06/01/2024 12:53 PM [facility] 56 POTASSIUM 4.5 3.5 - 5.1 mmol/L 06/01/2024 12:53 PM [facility] 56 CHLORIDE 99 98 - 107 mmol/L 06/01/2024 12:53 PM [facility] 56 CO2 25 22 - 32 mmol/L 06/01/2024 12:53 PM [facility] 56 ANION GAP 11 7 - 15 mmol/L 06/01/2024 12:53 PM [facility] 5602 GLUCOSE 99 70 - 120 mg/dL 06/01/2024 12:53 PM [facility] 56 Albumin 2.7(L) 3.8 - 5.0 g/dL 06/01/2024 12:53 PM [facility] 56 AST 171(H) 10 - 35 U/L 06/01/2024 12:53 PM [facility] 5602 Alkaline Phosphatase 118 35 - 130 U/L 06/01/2024 12:53 PM [facility] 56 Bilirubin, Total 0.3 <=1.2 mg/dL 06/01/2024 12:53 PM [facility] 56 CALCIUM 8.1(L) 8.4 - 10.2 mg/dL 06/01/2024 12:53 PM [facility] 56 Protein 5.9(L) 6.0 - 8.3 g/dL 06/01/2024 12:53 PM [facility] 56- ALT 54(H) 10 - 35 U/L 06/01/2024 12:53 PM [facility] 56 Blood Venous blood specimen / Unknown Venipuncture / Unknown 06/01/2024 11:36 AM EST 06/01/2024 11:36 AM EST us Payal Myers MD LAB BLOOD ORDERABLES Final Resu lt [facility] [address] [facility] [address] documented in this encounter Visit Diagnoses Diagnosis Fever, unspecified fever cause- Primary Seronegative inflammatory arthritis Axillary lymphadenopathy Enlargement of lymph nodes Generalized weakness Other malaise and fatigue Vitamin B12 deficiency Other B-complex deficiencies documented in this encounter Care Teams Sprinkler Fitter Helper Relationship Specialty Start Date End Date Payal Myers MD [address] [facility] [place] [address] PCP - General Family Medicine 01/21/24 documented as of this encounter"
--- OUTSIDE RECORDS SUMMARY | 2024-07-05 06:48 | External Medical Summary ---
Author Name Unknown Address Unknown Organization K01:LABORATORY [facility] [place] - [address] [place] [address] Laboratory Report Ordering Provider Test Date Status PATRICIA ALBERTO 06/02/2024 22:17:00 Final Observation Date Value Abnormality Reference (Units ) Status Bacteria identified in Specimen by Culture 06/02/2024 22:17:00 No growth Final Test: Culture, Blood
Spe cimen Source: Blood, Venous
Specimen Type: Blood
Specimen Date: 06/02/20242216
Result Date: 06/07/20242301
Result Status: Final result
Resulting Lab: LABORATORY [facility]
[address]
[place] [address]

CULTURE

No growth

null Performing Location LABORATORY [facility] [place] - [address] [place] [address]
--- OUTSIDE RECORDS SUMMARY | 2024-07-05 06:48 | External Medical Summary ---
Author Name Unknown Address Unknown Organization : Laboratory Report Ordering Provider Test Date Status SIGRID SELLERS 06/02/2024 14:31:48 Final Observation Date Value Abnormality Reference (Units ) Status IL-2RALPHA(CD25), SOLUBLE 06/02/2024 14:31:48 [address] Above high normal 532-1891 (pg/mL) Final This test was performed usin g a kit that has not
been cleared or approved by the FDA. The
analytical performance characteristics of this
test have been determined by [facility]. This test
should not be used for diagnosis without
confirmation by other medically established means.
[facility] [place]
[address] [facility] [place] [address]

Sports Statistician: Svetlana Gruber MD,PHD,THERON
Test Reported by [facility],
[facility],
[address] [place], [place]
Rei Kimball M.D., Ph.D., Director of Laboratories
, [place] [id number] Performing Location
--- OUTSIDE RECORDS SUMMARY | 2024-07-05 06:48 | External Medical Summary | Summary of Care ---
Author Name Unknown Organization [facility] Address [address] [facility] [place] [address] Phone [phone] Care Team Providers Care Extruder Operator Name Role Phone Payal Myers MD Primary Care Provider [phone] Encounter Details Date Type Department Care Team (Late st Contact Info) Description 05/21/2024 Result Scan Unspecified Department <No scans attached> [...] night at bedtime. 90 Tablet 3 05/18/2024 11/18/20 25 Active Naratriptan HCl 2.5 MG Oral [...] 11:40 AM EST Office Visit Family Practice [facility] [address] [place] [address] Payal Myers MD [address] [place] [address] 08/31/2024 8:20 AM EST Office Visit [facility] [address] [place] [address] Payal Myers MD [address] [place] [address] Health Maintenance Due Date Last Done Comments [...] Date/Time Associated Diagnosis Comments OUTSIDE LAB RESULTS 05/23/2024 ECHOCARDIOLOGY SCANNED RESULT 05/21/2024 OUTSIDE LAB RESULTS 05/20/2024 documented in this encounter Results * OUTSIDE LAB RESULTS (05/23/2024) 05/23/2024 us No Physician Data Unknown LABORATORY Final Result * ECHOCARDIOLOGY SCANNED RESULT (05/21/2024) 05/21/2024 us No Physician Data Unknown ECHOCARDIOLOGY Final Result * OUTSIDE LAB RESULTS (05/20/2024) 05/20/2024 us No Physician Data Unknown LABORATORY Final Result documented in this encounter Care Teams Extruder Operator Relationship Specialty Start Date End Date [facility]al Myers [facility] [address] [facility] [address] PCP - General Family Medicine 01/21/24 documented as of this encounter
--- OUTSIDE RECORDS SUMMARY | 2024-07-05 06:49 | External Medical Summary ---
Author Name Unknown Address Unknown Organization K01:LABORATORY [facility] - [address] [place] [address] Laboratory Report Ordering Provider Test Date Status MARIELA PANTOJA 06/01/2024 11:36:58 Final Observation Date Value Abnormality Reference (Units ) Status LDL, (direct) 06/01/2024 11:36:58 38 <=129 (mg/dL) Final LDL Cholesterol Reference Ra nges (mg/dL):
<70 Target level for high risk ASCVD patient
<100 Optimal for general population
100-129 Near optimal for general population
130-159 Borderline high
160-189 High
>=190 Very high Performing Location [facility] - [address] [place] [address]
--- OUTSIDE RECORDS SUMMARY | 2024-07-05 06:49 | External Medical Summary ---
Author Name Unknown Address Unknown Organization : Laboratory Report Ordering Provider Test Date Status MARIELA PANTOJA 06/01/2024 11:36:58 Final Observation Date Value Abnormality Reference (Units ) Status Intrinsic factor blocking Ab [Presence] in Serum 06/01/2024 11:36:58 Negative Negative Final For additional information, please refer to
http://education.[employer]/[email or web address]
(This link is being provided for informational/
educational purposes only.)

Test Performed at:
[email or web address]
[address] [facility] [place] [address]
Rei Kimball M.D., Ph.D.,Director of Laboratories Performing Location
--- OUTSIDE RECORDS SUMMARY | 2024-07-05 06:49 | External Medical Summary ---
Author Name Unknown Address Unknown Organization K09:LABORATORY [facility] - [address] [place] [place] [address] Laboratory Report Ordering Provider Test Date Status MARIELA PANTOJA 06/01/2024 11:36:58 Final Observation Date Value Abnormality Reference (Units ) Status BUN 06/01/2024 11:36:58 10 6-20 (mg/dL) Final Creatinine 06/01/2024 11:36:58 0.5 0.5-1.0 (mg/dL) Final Glomerular filtration rate/1.73 sq M.predicted [Volume Rate/Area] in Serum, Plasma or Blood by Creatinine-based formula (CKD-EPI) 06/01/2024 11:36:58 >90 >=60 (mL/min) Final eGFR is calculated based on the CKD-EPI 2020 equation. Sodium 06/01/2024 11:36:58 135 135-146 (m mol/L) Final Potassium 06/01/2024 11:36:58 4.5 3.5-5.1 (m mol/L) Final Cl 06/01/2024 11:36:58 99 98-107 (mm ol/L) Final CO2 06/01/2024 11:36:58 25 22-32 (mmo l/L) Final Anion gap 06/01/2024 11:36:58 11 7-15 (mmol /L) Final Glucose 06/01/2024 11:36:58 99 70-120 (mg /dL) Final Albumin 06/01/2024 11:36:58 2.7 Below low normal 3.8 -5.0 (g/dL) Final AST (Aspartate aminotransferase) 06/01/2024 11:36:58 171 Above high normal 10-35 (U/L) Final Alk Phos 06/01/2024 11:36:58 118 35-130 (U/ L) Final Bilirubin, Total 06/01/2024 11:36:58 0.3 <=1 .2 (mg/dL) Final Calcium 06/01/2024 11:36:58 8.1 Below low normal 8.4 -10.2 (mg/dL) Final Protein 06/01/2024 11:36:58 5.9 Below low normal 6.0 -8.3 (g/dL) Final ALT (Alanine aminotransferase) 06/01/2024 11:36:58 54 Above high normal 10-35 (U/L) Final Performing Location LABORATORY [facility] [address] [place] [address]
--- OUTSIDE RECORDS SUMMARY | 2024-07-05 06:49 | External Medical Summary ---
Author Name Unknown Address Unknown Organization K01:LABORATORY [facility] - [address] [place] [address] Laboratory Report Ordering Provider Test Date Status MARIELA PANTOJA 06/01/2024 11:36:58 Final Observation Date Value Abnormality Reference (Units ) Status T4, Free 06/01/2024 11:36:58 0.8 Below low normal 0.9 -1.7 (ng/dL) Final Performing Location LAB[facility]ATORY [facility] - [address] [place] [address]
--- OUTSIDE RECORDS SUMMARY | 2024-07-05 06:49 | External Medical Summary ---
Author Name Unknown Address Unknown Organization [id number]:[facility]ORY [facility] [place] [address] [place] [address] Laboratory Report Ordering Provider Test Date Status RENE CARLSON 06/01/2024 11:36:58 Final Observation Date Value Abnormality Reference (Units ) Status Hep A IgM 06/01/2024 11:36:58 Negative Negative Final Hep B Core IgM 06/01/2024 11:36:58 Negative Negat martha Final Hep B surface Ag 06/01/2024 11:36:58 Negative Neg ative Final Hep C Ab 06/01/2024 11:36:58 Negative Negative Final Performing Location LABORATORY [facility] - [address] [place] [address]
--- OUTSIDE RECORDS SUMMARY | 2024-07-05 06:49 | External Medical Summary ---
Author Name Unknown Address Unknown Organization [id number]:[facility] [place] [address] [place] [address] Laboratory Report Ordering Provider Test Date Status MARIELA PANTOJA 06/01/2024 11:36:58 Final Observation Date Value Abnormality Reference (Units ) Status Iron 06/01/2024 11:36:58 32 Below low normal 33-151 (ug/dL) Final Iron-binding capacity 06/01/2024 11:36:58 179 Below low normal 250-425 (ug/dL) Final Transferrin Sat % 06/01/2024 11:36:58 18 15-55 (%) Final Performing Location [facility] [place] [address] [place] [address]
--- OUTSIDE RECORDS SUMMARY | 2024-07-05 06:49 | External Medical Summary ---
Author Name Unknown Address Unknown Organization [id number]:LAB[facility]ATORY [facility] - [address] [place] [address] Laboratory Report Ordering Provider Test Date Status MARIELA PANTOJA 06/01/2024 11:36:58 Final Observation Date Value Abnormality Reference (Units ) Status LDH 06/01/2024 11:36:58 633 Above high normal <= 250 (U/L) Final Performing Location [facility] - [address] [place] [address]
--- OUTSIDE RECORDS SUMMARY | 2024-07-05 06:49 | External Medical Summary ---
Author Name Unknown Address Unknown Organization [id number][place] [facility] [address] [facility] [address] Laboratory Report Ordering Provider Test Date Status MARIELA PANTOJA 06/01/2024 11:36:58 Final Observation Date Value Abnormality Reference (Units ) Status TSH 06/01/2024 11:36:58 10.60 Above high normal 0. 27-4.20 (uIU/mL) Final Performing Location [place] [facility] [address] [place] [address]
--- OUTSIDE RECORDS SUMMARY | 2024-07-05 06:49 | External Medical Summary ---
Author Name Unknown Address Unknown Organization [id number]:[facility]ATORY [facility] [place] - [address] [place] [address] Laboratory Report Ordering Provider Test Date Status MARIELA PANTOJA 06/01/2024 11:36:58 Final Observation Date Value Abnormality Reference (Units ) Status Vitamin B12 06/01/2024 11:36:58 [phone] (pg/mL) Final Performing Location [facility] - [address] [place] [address]
--- OUTSIDE RECORDS SUMMARY | 2024-07-05 06:49 | External Medical Summary ---
Author Name Unknown Address Unknown Organization [id number]:[facility]ATORY [place] [address] Laboratory Report Ordering Provider Test Date Status MARIELA PANTOJA 06/01/2024 11:36:58 Final Observation Date Value Abnormality Reference (Units ) Status Magnesium 06/01/2024 11:36:58 2.2 1.5-2.6 (m g/dL) Final Performing Location [facility] [place] [address]
--- OUTSIDE RECORDS SUMMARY | 2024-07-05 06:49 | External Medical Summary ---
Author Name Unknown Address Unknown Organization [id number]:[facility]ATORY [place] [address] Laboratory Report Ordering Provider Test Date Status MARIELA PANTOJA 06/01/2024 11:36:58 Final Observation Date Value Abnormality Reference (Units ) Status SYNC LEUKOCYTES IN BLOOD BY AUTOMATED COUNT 06/01/2024 11:36:58 3.53 Below low normal 4.00-10.80 (K/uL) Final Segs 06/01/2024 11:36:58 86.4 Above high normal 40.0-75.0 (%) Final Lymphs % 06/01/2024 11:36:58 10.2 Below low normal 18.0-42.0 (%) Final Monos 06/01/2024 11:36:58 3.1 1.0-11.0 (%) Final Eosinophils 06/01/2024 11:36:58 0.3 0.0-6.0 (%) Final Basos 06/01/2024 11:36:58 0.0 0.0-2.0 (%) Final Absolute Segs 06/01/2024 11:36:58 3.05 1.80-7.70 (K/uL) Final Lymphs, absolute 06/01/2024 11:36:58 0.36 Below low normal 1.00-4.80 (K/ul) Final Monos, Abs 06/01/2024 11:36:58 0.11 0.00-1.10 (K/uL) Final Eos, Abs 06/01/2024 11:36:58 0.01 0.00-0.70 (K/uL) Final Basos, Abs 06/01/2024 11:36:58 0.00 0.00-0.20 (K/uL) Final Performing Location [facility] [place] [address]
--- OUTSIDE RECORDS SUMMARY | 2024-07-05 06:49 | External Medical Summary ---
Author Name Unknown Address Unknown Organization [id number]:LABORATORY [facility] [place] - [address] [place] [address] Laboratory Report Ordering Provider Test Date Status MARIELA PANTOJA 06/01/2024 11:36:58 Final Observation Date Value Abnormality Reference (Units ) Status Triglyceride 06/01/2024 11:36:58 456 Above high normal <=174 (mg/dL) Final Triglyceride Reference Range s (mg/dL):
<150 Acceptable
150-174 Borderline high
175-499 High
>=500 Very high Cholesterol 06/01/2024 11:36:58 151 <200 (mg /dL) Final Total Cholesterol Reference Ranges (mg/dL):
<200 Desirable
200-239 Borderline high
>=240 High HDL 06/01/2024 11:36:58 14 Below low normal >49 (mg/dL) Final HDL Cholesterol Reference Ra nges (mg/dL):
>=60 High (Desirable)
<50 Low (Undesirable) For Females
<40 Low (Undesirable) For Males NON-HDL CHOLESTEROL 06/01/2024 11:36:58 137 <=159 (mg/dL) Final Non-HDL Cholesterol Referenc e Range (mg/dL):
<100 Target level for high risk ASCVD patient
<130 Optimal for general population
130-159 Near optimal for general population
160-189 Borderline High
190-219 High
>=220 Very High Performing Location [facility]ORY [facility] - [address] [place] [address]
--- OUTSIDE RECORDS SUMMARY | 2024-07-05 06:49 | External Medical Summary ---
Author Name Unknown Address Unknown Organization [id number]:LABORATORY [place] [address] Laboratory Report Ordering Provider Test Date Status MARIELA PANTOJA 06/01/2024 11:36:58 Final Observation Date Value Abnormality Reference (Units ) Status WBC, Total 06/01/2024 11:36:58 3.53 Below low normal 4. 00-10.80 (K/uL) Final RBC 06/01/2024 11:36:58 3.83 3.85-5.15 (M/uL) Final Hemoglobin 06/01/2024 11:36:58 10.2 Below low normal 12 .0-15.3 (g/dL) Final HCT 06/01/2024 11:36:58 31.9 Below low normal 36. 0-45.2 (%) Final MCV 06/01/2024 11:36:58 83.3 81.5-97.5 (fL) Final MCH 06/01/2024 11:36:58 26.6 27.0-34.0 (pg) Final MCHC 06/01/2024 11:36:58 32.0 32.0-36.0 (g/dL) Final RDW 06/01/2024 11:36:58 18.8 11.5-15.5 (%) Final Platelets 06/01/2024 11:36:58 438 Above high normal 14 0-400 (K/uL) Final MPV 06/01/2024 11:36:58 8.6 6.6-11.1 ( fL) Final Performing Location LAB[facility]ATORY [place] [address]
--- OUTSIDE RECORDS SUMMARY | 2024-07-05 06:49 | External Medical Summary | Summary of Care ---
Author Name Unknown Organization [facility] Address [address] [place] [address] Phone [phone] Care Team Providers Care Voice Network Administrator Name Role Phone Payal Myers MD Primary Care Provider [phone] Reason for Visit * Reason Onset Date Comments Follow Up 06/01/2024 Encounter Details Date Type Department Care Team (Late st Contact Info) Description 06/01/2024 Telephone Family Practice [facility] [address] [facility] [place] [address] Payal Myers MD [address] [facility] [place] [address] Follow Up Allergies Active Allergy Reactions Criticality [...] 11:40 AM EST Office Visit Family [facility] [place] [address] [place] [address] Payal Myers MD [address] [place] [address] 08/31/2024 8:20 AM EST Office Visit [facility] [place] [address] [place] [address] Payal Myers MD [address] [place] [address] Health Maintenance Due Date Last Done Comments [...] filedocumented as of this encounter Care Teams Voice Network Administrator Relationship Specialty Start Date End Date Payal Myers MD [address] [facility] [place] [address] PCP - General Family Medicine 01/21/24 documented as of this encounter
--- OUTSIDE RECORDS SUMMARY | 2024-07-05 06:49 | External Medical Summary ---
Author Name Unknown Address Unknown Organization K09:[facility]ORY [place] [address] Laboratory Report Ordering Provider Test Date Status MARIELA PANTOJA 06/01/2024 11:36:58 Final Observation Date Value Abnormality Reference (Units ) Status Nucleated erythrocytes/100 leukocytes [Ratio] in Blood by Automated count 06/01/2024 11:36:58 Final Performing Location [facility]ORY [facility] [place] [address]
--- OUTSIDE RECORDS SUMMARY | 2024-07-05 06:49 | External Medical Summary ---
Author Name Unknown Address Unknown Organization K01:LABORATORY [facility] [place] - [address] [place] [address] Laboratory Report Ordering Provider Test Date Status MARIELA PANTOJA 06/01/2024 11:36:58 Final Observation Date Value Abnormality Reference (Units ) Status CRP, low-sensitivity 06/01/2024 11:36:58 65 Above high normal <=5 (mg/L) Final Performing Location LABORATORY [facility] - [address] [place] [address]
--- OUTSIDE RECORDS SUMMARY | 2024-07-05 06:49 | External Medical Summary | Summary of Care ---
Author Name Unknown Organization [facility] Address [address] [place] [address] Phone [phone] Care Team Providers Care Powerplant Operator Name Role Phone Payal Myers MD Primary Care Provider Reason for Visit * Reason Onset Date Comments Follow Up 06/01/2024 Encounter Details Date Type Department Care Team (Late st Contact Info) Description 06/01/2024 Telephone Family Practice [facility] [address] [facility] [place] [address] Payal Myers MD [address] [facility] [place] [address] Follow Up Allergies Active Allergy Reactions Criticality [...] AM EST Office Visit [facility] [place] [address] [place] [address] Payal Myers MD [address] [place] [address] 08/31/2024 8:20 AM EST Office Visit [facility] [place] [address] [place] [address] Payal Myers MD [address] [place] [address] Health Maintenance Due Date Last Done Comments [...] filedocumented as of this encounter Care Teams Powerplant Operator Relationship Specialty Start Date End Date Payal Myers MD 200 [facility] [place] [address] PCP - General Family Medicine 01/21/24 documented as of this encounter
--- OUTSIDE RECORDS SUMMARY | 2024-07-05 06:49 | External Medical Summary | Summary of Care ---
Author Name Unknown Organization [facility] Address [address] [place] [address] Phone [phone] Care Team Providers Care Building Repair Maintenance Supervisor Name Role Phone Payal Myers MD Primary Care Provider [phone] Reason for Visit * Reason Onset Date Comments Follow Up 06/01/2024 Encounter Details Date Type Department Care Team (Late st Contact Info) Description 06/01/2024 Telephone Family Practice [facility] [address] [facility] [place] [address] Payal Myers MD [address] [facility] [place] [address] Follow Up Allergies Active Allergy Reactions Criticality [...] 11:40 AM EST Office [facility] [place] [address] [place] [address] Payal Myers MD [address] [place] [address] 08/31/2024 8:20 AM EST Office Visit [facility] [place] [address] [place] [address] Payal Myers MD [address] [place] [address] Health Maintenance Due Date Last Done Comments [...] filedocumented as of this encounter Care Teams Building Repair Maintenance Supervisor Relationship Specialty Start Date End Date Payal Myers MD [address] [facility] [place] [address] PCP - General Family Medicine 01/21/24 documented as of this encounter
--- OUTSIDE RECORDS SUMMARY | 2024-07-05 06:49 | External Medical Summary ---
Author Name Unknown Address Unknown Organization [id number]:LABORATORY [facility] [place] - [facility] [address] [facility] [address] Laboratory Report Ordering Provider Test Date Status MARIELA PANTOJA 06/01/2024 11:36:58 Final Observation Date Value Abnormality Reference (Units ) Status HIV 1+2 Ab+HIV1 p24 Ag [Presence] in Serum or Plasma by Immunoassay 06/01/2024 11:36:58 Negative Negative Final Negative HIV-1/2 antigen and antibody screening tset results usually indicate the absence of HIV-1 and HIV-2 infection. However, such negative results do not rule-out acute HIV infection. If acute HIV-1 infection is highly suspected, it is recommended that a specimen be submitted for detection of HIV-1 RNA. Performing Location LABORATORY [facility] [place] - [address] [place] [address] [place] [address]
--- OUTSIDE RECORDS SUMMARY | 2024-07-05 06:49 | External Medical Summary ---
Author Name Unknown Address Unknown Organization K01:LAB[facility]ATORY [facility] - [address] [place] [address] Laboratory Report Ordering Provider Test Date Status MARIELA PANTOJA 06/01/2024 11:36:58 Final Observation Date Value Abnormality Reference (Units ) Status Ferritin 06/01/2024 11:36:58 9974 Above high normal 13 -150 (ng/mL) Final Performing Location [facility] - [address] [place] [address]
[2024-07-05 08:05] LABS: Hematocrit (blood only) 24.8 % (37.0-47.0); Hemoglobin 7.9 g/dl (12.0-16.0); Immature Granulocytes # (auto) 0.04 K/uL (0.01-0.20); Immature Granulocytes % (auto) 1.6 %; Lymphocytes # (auto) 0.23 K/uL (1.20-3.40); Lymphocytes % (auto) 9.4 %; Mean Corpuscular Hemoglobin 26.3 pg (25.0-34.0); Mean Corpuscular Hgb Conc 31.9 g/dL (32.0-36.0); Mean Corpuscular Volume 82.7 fL (80.0-100.0); Mean Platelet Volume 8.9 fL (9.4-12.4); Monocytes # (auto) 0.13 K/uL (0.11-0.59); Monocytes % (auto) 5.3 %; Neutrophils # (auto) 2.05 K/uL (1.40-6.50); Neutrophils % (auto) 83.7 %; Platelet Count 382 K/uL (130-400); RDW Coefficient of Variation 16.2 % (11.5-14.5); RDW Standard Deviation 49.1 fL (36.4-46.3); White Blood Count 2.45 K/ul (4.8-10.8)
[2024-07-05 08:17] LABS: BUN Creatinine Ratio 21.6 (10-20); Calcium 9.1 mg/dl (8.6-10.3); Creatinine Clr Calc Pharmacy 118.5 ml/min; Magnesium 1.3 mg/dl (1.7-2.4); Phosphorus 2.1 mg/dl (2.5-4.9); Potassium 3.7 mmol/L (3.5-5.1)
[2024-07-05] MEDS ORDERED: POTASSIUM PHOS 3 MMOL/1 ML INFUSION IV STA (08:22)
[2024-07-05 08:26] LABS: RBC Morphology Unremarkable
[2024-07-05] MEDS: MAGNESIUM SULFATE / D5W 1 GM/100 ML BAG IV SCH (09:13)
[2024-07-05] MEDS: POT PHOSPHATE MONOBASIC W/ SOD TAB PO SCH (09:26)
[2024-07-05] MEDS: ONDANSETRON 4 MG OD TAB PO PRN (09:33)
[2024-07-05] MEDS: MAGNESIUM OXIDE 400 MG TAB PO SCH (10:13)
[2024-07-05 14:10] VITALS: PULSE 116; O2SAT 99
[2024-07-05 16:08] LABS: Calcium 8.9 mg/dl (8.6-10.3); Creatinine Clr Calc Pharmacy 110.8 ml/min; Potassium 3.9 mmol/L (3.5-5.1)
[2024-07-05 16:10] LABS: Magnesium 1.8 mg/dl (1.7-2.4); Phosphorus 2.6 mg/dl (2.5-4.9)
[2024-07-05] MEDS ORDERED: SODIUM CHLORIDE 1 GM TABLET PO ONE (16:32)
--- NOTE | 2024-07-05 16:39 | Nephrology Progress Note ---
Date of Service July 05, 2024 Assessment & Plan (1) Electrolyte abnormality: Plan: suspect that hypercalcemia was from what proved to be excessive D, Ca supplementation in wake of last hospital stay. hypercalcemia can cause volume depletion and this patient w/ chronic abd pain would be prone to that anyway. -hypercalcemia resolved and calcium now dropping > Ca 9.6 > 9.1 > 8.9 today >marked and unexplained K drop since arrival despite therapy on 07/04 now stabilizd -mag, phos wnl; mag 1.8 today -mild hyponatremia at 131 > 130 w/ urine/serum studies and hx suggesting hypovolemic etiology; slight decrease in K but continue to think she is volume depleted >>>>Would not start salt tabs and cancelled this; would stop phos supplements as soon as feasible >> can worsen her GI upset, complicate her nutrition >>focus on encouraging her regular diet especially protein rich and phosphorus rich foods >>>started calcitriol 0.5 mcg daily and resumed D2 15564 weekly Admission and Anticipated Discharge Date Admission Date: July 04, 2024 Subjective had one L NS w/ 20 K ON, ending at 1600. Physical Exam 2 Constitutional: well developed, + cachectic and cooperative; no acute distress Eyes: EOM intact bilaterally ENMT: Mouth: + dry oral mucous membranes Respiratory: normal respiratory effort (lying on L side in position on RA) Auscultation: + diminished lung sounds (BL bases) Cardiovascular: Rate/Rhythm: + tachycardic Extremities: no edema Gastrointestinal (Abdomen): Inspection/Auscultation: normal bowel sounds P ercussion/Palpation: abdomen soft; abdomen nontender Musculoskeletal: Extremities: strength 5/5 throughout Skin: no rashes, warm and dry Results & Data Vital Signs (Past 12 Hours) Vital Signs Temp Pulse Resp BP Pulse Ox O2 Del Method 07/05/24 14:09 36.8 C 116 H 16 98/52 L 99 Room Air 07/05/24 07:59 Room Air Laboratory Results 07/05/24 07:23 07/05/24 15:13
--- NOTE | 2024-07-05 16:41 | Discharge Summary ---
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 Since being home from the hospital she has had relatively poor oral intake. Patient was cared for in the hospital. She was given some IV fluid resuscitation. Her sodium levels improved. Her electrolytes were replaced. Laboratory studies were most consistent with hypovolemia hyponatremia and poor oral solute intake as etiology for her electrolyte abnormalities. GI consultation was obtained for findings of persistent pancreatitis on her CT. there was some evidence of fluid collection and possibly early formation of pseudocyst but yet yet mature. Was not causing any compression. GI recommends repeating CT of the abdomen approximately 3 weeks to assess for maturity and determine if EUS drainage is an option. Can follow-up with GI outpatient. Can follow-up with outpatient. Pulmonary consultation was obtained for a very small pleural effusion. It was not large enough to consider thoracentesis. Most likely transudative effusion from her pancreatitis and inflammatory autoimmune disorder no additional pulmonary follow-up was recommended.. Nephrology consultation was obtained due to her multiple electrolyte abnormalities and patient was is going to be establishing care with the practice outpatient. Recommended continue to monitor and replace electrolytes. Patient was seen by the dietitian. Going over nutritional supplements and replacement electrolytes. On day of discharge her electrolytes had improved. Sodium was fluctuating. Her oral intake seem to be improving. She was tolerating small meals. Tolerating some Ensure clear. She was very motivated to get home and be able to have a diet of her choosing. She seems to be tolerating meals better with the use of the Reglan. We discussed the potential of her going home and continue to monitor here in the hospital. She is quite confident that she will be able to continue to improve her oral intake at home much better than being here in the hospital. She instructed to hold her calcium supplements since she was hypercalcemic when she came in. We will start sodium chloride and magnesium replacement. And she will need close follow-up of her electrolytes outpatient. Patient had already established plans for home health care after discharge from [facility]. Will continue with home health care and they can assist with therapies as well as a laboratory monitoring as needed. Notes For Next Care Provider Repeat CT of the abdomen in approximately 3 weeks to evaluate for maturing of fluid collection and need for possible EUS drainage Recommend BMP, magnesium, phosphorus in 7 to 14 days Follow-up with subspecialists as already coordinated from previous hospitalization Medication Changes From Visit Calcium supplements discontinue Mag-Ox daily NaCl tab daily Metoclopramide 10 mg q. ACHS Zofran as needed Admission HPI Per Admitting Provider History obtained from patient, family, and records. Medical history significant for seronegative polyarthritis, macrophage activation syndrome, history of pancreatitis, hypothyroidism, chronic anemia (baseline hemoglobin 9-10), mood disorder. Recent [facility] confinement last month for fever chills joint aches attributed to Amjevita drug reaction. Persistent illness following hospital discharge. Patient admitted at [facility] from June 02 to 2023 for persistent illness following [facility] ER transfer following patient wine master's recommendations to evaluate for adult onset Still's disease. Inflammatory polyarthritis/macrophage activation syndrome diagnosed during confinement. Patient received steroids during [facility] admission Hypocalcemia noted and primary hypothyroidism on blood work. Patient discharged on calcitriol, calcium tablets, levothyroxine, and steroid taper medications. Admission Exam Per Admitting Provider See H&P Discharge Exam Constitutional: Alert, underweight, nontoxic HEENT: Mucous membranes moist. Lungs: Clear to auscultation, decreased, no wheezes rales or rhonchi CV: S1-S2, regular Abdomen: Soft, minimal tenderness, nondistended, no guarding, no rigidity, no mass Extremities: No significant edema Neuro: No focal deficits Psych: Cooperative, normal mood Updated Medication List Medication Instructions Recorded Confirmed Type fluoxetine 20 mg capsule 20 mg PO QAM 04/01/24 07/03/24 History ferrous sulfate 325 mg (65 mg 325 mg PO Q2D 05/20/24 07/03/24 History iron) tablet cyanocobalamin (vitamin B-12) 500 1,000 mcg (2 x 500 mcg) PO QAM #30 05/23/24 07/03/24 Rx mcg tablet tabs Senokot-S 2 tab PO QAM 07/03/24 07/03/24 History fenofibrate 160 mg tablet 160 mg PO QAM 07/03/24 07/03/24 History hydrocortisone 2.5 % topical cream 1 applic topical DIRECTED 07/03/24 07/03/24 History levothyroxine 88 mcg tablet 88 mcg PO QAM 07/03/24 07/03/24 History omeprazole 20 mg capsule,delayed 20 mg PO QAM 07/03/24 07/03/24 History release magnesium oxide 400 mg (241.3 mg 400 mg PO DAILY #30 tabs 07/05/24 Rx magnesium) tablet metoclopramide HCl 10 mg tablet 10 mg PO ACHS #120 tabs 07/05/24 Rx ondansetron 4 mg disintegrating 4 mg PO Q6H PRN nausea and 07/05/24 Rx tablet vomiting #20 tabs sodium chloride 1,000 mg soluble 1,000 mg PO DAILY #30 tabs 07/05/24 Rx tablet Hospital Stay Data Consultations 07/03/24 21:33 ED Decision to Admit Stat 07/04/24 02:10 Consult Gastroenterology Routine Consult Pulmonology Routine 07/04/24 07:46 Consult Nephrology Routine Diagnostic Imagining Performed 07/03/24 22:20 CT Abd and Pelvis [CT abd pelvis IV con only] Stat CT angio chest PE protocol Stat Reviewed imaging, laboratory and diagnostic studies. Pertinent findings as below. WBCs 2.4, improved Hemoglobin 7.9, improved Platelets 382 Sodium 130 Potassium 3.9 Chloride at 95 Bicarb of 30 BUN 11 Creatinine 0.55 Phosphorus 2.6 Magnesium 1.8 CTA chest negative for PE's very small left pleural effusion CT of the abdomen pelvis showed peripancreatic and intra pancreatic fluid collection that is ill-defined. With some Adjacent inflammatory thickening of t he large bowel. Pending Results Patient Have Any Pending Studies at Discharge: No Discharge Instructions Given to Patient (Per Discharging Provider) Follow-up with your specialists as already scheduled Discussed with your PCP/kiosk sales representative follow-up CAT scan of your abdomen to evaluate pancreatitis and fluid collection Get follow-up lab studies through your PCP on Saturday when you have your follow- up appointment [place] salt diet Drink Ensure clear 2-3 bottles daily. Encourage you to sip 1 bottle over the course of 2 hours to minimize risk of nausea. Take the metoclopramide before meals and at bedtime to help you tolerate here meals Recommend 4-6 small meals throughout the day. Encouraged high-protein meals Home Health Attestation I certify that this patient is under my care and that I, or a physicians statistical assistant working with me, had a face to-face encounter that meets the home health [id number] encounter requirements with this patient. The encounter with the patient was in whole, or in part, for the following medical condition, which is the primary reason for home health care (list medical condition): I certify that, based on my findings, the following services are medically necessary home health services: My clinical findings support the need for the above services because: Further, I certify that my clinical findings support that this patient is homebound (i.e. absences from home require considerable and taxing effort and are for medical reasons or islam services or infrequently or of short d uration when for other reasons) because: Certification for Home Health Services: Based on the above findings, I certify that this patient is confined to the home and needs intermittent residential care, physical therapy and/or speech therapy or continues to need occupational therapy. The patient is under my care, and I have initiated the establishment of the plan of care. This patient will be followed by a physician who will periodically review the plan of care. Total Time Total Time Spent Total Time Spent (In Minutes): 46
[2024-07-05 16:44] VITALS: BP 103/67
--- NOTE | 2024-07-05 17:12 | Communication Note ---
Date of Service: July 05, 2024 pt for d/c before I'm able to see her in person. labs and care reviewed w/ Dr Wills by phone -note calcium dropping again but still wnl NEPHRO D/C RECS -at PCP appt on 07/10, PCP should check BMP, phos, mag -nephro nurses will order labs ALSO to be done on 07/10 > serum/urine osms, urine electrolytes, UACM -resume D2 50K units weekly -resume calcitriol 1 tab daily (0.5 mcg) << note lower than [facility] d/c dose -resume jeff citrate 1 tab twice daily << note lower than [facility] d/c dose -start 1 gm salt tab daily -start mag oxide 1 tab bid >>>aim for 50-100 gm daily protein intake -nephro team will change neph appt from july to late June/july
--- NOTE | 2024-07-05 22:42 | Electrocardiogram Report ---
Test Reason : Blood Pressure : */* mmHG Vent. Rate : 123 BPM Atrial Rate : 123 BPM P-R Int : 118 ms QRS Dur : 70 ms QT Int : 288 ms P-R-T Axes : 65 65 49 degrees QTcB Int : 412 ms Sinus tachycardia Cannot rule out Anterior infarct , age undetermined Nonspecific T wave abnormality Abnormal ECG When compared with ECG of 20-May-2024 19:32, Nonspecific T wave abnormality now evident in Anterior leads Confirmed by Giuseppe Patel ([id number]) on 07/05/2024 10:42:44 PM Referred By: Confirmed By: Giuseppe Patel
--- OUTSIDE RECORDS SUMMARY | 2024-07-06 16:19 | External Medical Summary | Summary of Care ---
Author Name Unknown Organization [facility] [address] [address] Phone [phone] Care Team Providers Care Activities Leader Name Role Phone Payal Myers MD Primary Care Provider [phone] Encounter Details Date Type Department Care Team (Late st Contact Info) Description 07/05/2024 Telephone Gastroenterology, [facility] [address] [place] [address] Noreen Weller MD [address] [place] [id number] Allergies Active Allergy Reactions Criticality Noted Date Comments Adalimumab High 05/20/2024 Other Reaction(s): Chills and hot flashes Sulfasalazine Rash Medium 10/23/2023 documented as of this encounter (statuses as of 07/05/2024) Medications 08/10 1-20 MG-MCG per tablet 1 [...] Tablet 06/13/2024 2:46 PM EST 4 Active Fenofibrate [...] as of this encounter (statuses as of 07/05/2024) Active Problems Problem Noted Date Diagnosed Date Hypocalcemia 06/07/2024 Isolated proteinuria without specific morphologi c lesion 06/05/2024 Rash and nonspecific skin eruption 06/04/2024 MAS (macrophage activation syndrome) 06/03/2024 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 Anemia of chronic disease 06/02/2024 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 Iron deficiency 02/28/2024 LUDA (generalized anxiety disorder) 10/09/2023 Seronegative inflammatory arthritis 10/09/2023 documented as of this encounter (statuses as of 07/05/2024) Resolved Problems Problem Noted Date Diagnosed Date Resolved Date Ileus 06/08/2024 06/13/2024 Chest pain, non-cardiac 06/04/202405/23 Idiopathic acute pancreatitis 06/04/2024 06/13/2024 Gallstone pancreatitis 06/02/202406/13 documented as of this encounter (statuses as of 07/05/2024) Immunizations Name Administration Dates Next Due COVID-19 [...] encounter Miscellaneous Notes * Telephone Encounter - Noreen Weller MD - 07/05/2024 11:48 AM EST Currently admitted to [facility] with peripancreatic fluid collection after recent pancreatitis, please arrange office visit with a mid level in 2 weeks to order a follow up CT scan. documented in this encounter Plan of Treatment Upcoming Encounters Date Type Department Care Team (Late st Contact Info) Description 07/10/2024 12:40 PM EST Office Visit Family Practice [facility] [address] [place] [id number] Payal Myers MD [address] [place] [address] 07/30/2024 2:30 PM EST Office Visit Rheumatology [place] [id number] [facility] [place] [address] Michelle Goodwin CRNP [facility] [address] [facility] [place] [address] 08/19/2024 9:00 AM EST Office Visit Nephrology, [facility] [address] [facility] [place] [address] Ant Cardona MD [address] [facility] [place] [address] 08/31/2024 8:20 AM EST Office Visit Family Practice [facility] [address] [facility] [place] [address] Payal Myers MD [address] [facility] [place] [address] 11/09/2024 3:20 PM EDT Office Visit Rheumatology [place] [id number] [facility] [place] [address] Neal Vang MD [address] [place] [address] [place] [address] Health Maintenance Due Date Last Done Comments [...] patient or by statute hierarchy) Care Teams Activities Leader Relationship Specialty Start Date End Date Payal Myers MD [address] [place] [address] PCP - General Family Medicine 01/21/24 documented as of this encounter
--- OUTSIDE RECORDS SUMMARY | 2024-07-06 16:26 | External Medical Summary ---
Author Name Unknown Address Unknown Organization : Laboratory Report Ordering Provider Test Date Status YOSELIN CALDERÓN 06/04/2024 14:26:00 Final Observation Date Value Abnormality Reference (Units) Status BONE MARROW COLLECTION 06/04/2024 14:26:00 Sent to [facility] Final Performing Location
== END 2024-07-05 17:31 | disposition home health service (06) | DRG 640 ==
LOC: ED 16:48 → 2W 22:20 → 3W 07-05 00:16

== ENCOUNTER 2024-07-07 18:26 | Inpatient (IN) ==
[2024-07-07 19:25] LABS: Hematocrit (blood only) 25.1 % (37.0-47.0); Hemoglobin 8.1 g/dl (12.0-16.0); Immature Granulocytes # (auto) 0.05 K/uL (0.01-0.20); Immature Granulocytes % (auto) 1.2 %; Lymphocytes # (auto) 0.25 K/uL (1.20-3.40); Lymphocytes % (auto) 5.9 %; Mean Corpuscular Hemoglobin 26.6 pg (25.0-34.0); Mean Corpuscular Hgb Conc 32.3 g/dL (32.0-36.0); Mean Corpuscular Volume 82.6 fL (80.0-100.0); Mean Platelet Volume 9.2 fL (9.4-12.4); Monocytes % (auto) 4.7 %; Neutrophils # (auto) 3.75 K/uL (1.40-6.50); Neutrophils % (auto) 88.2 %; Platelet Count 402 K/uL (130-400); RDW Coefficient of Variation 15.9 % (11.5-14.5); RDW Standard Deviation 47.8 fL (36.4-46.3); Red Blood Count 3.04 M/uL (4.20-5.40); White Blood Count 4.25 K/ul (4.8-10.8)
[2024-07-07 19:41] LABS: Alanine Aminotransferase 14 U/L (7-52); Albumin Globulin Ratio 0.9 (0.9-2); Alkaline Phosphatase 70 U/L (34-104); Anion Gap 6 (3-11); Aspartate Aminotransferase 68 U/L (13-39); BUN Creatinine Ratio 22.6 (10-20); Bilirubin,Total 0.4 mg/dl (0.2-1.0); Blood Urea Nitrogen 12 mg/dl (6-23); Calcium 9.2 mg/dl (8.6-10.3); Carbon Dioxide 30 mmol/L (21-32); Chloride 94 mmol/L (98-107); Globulin 3.3 gm/dl (2.5-4.0); Glucose 105 mg/dl (70-99(Fasting)); Potassium 3.9 mmol/L (3.5-5.1); Sodium 130 mmol/L (136-145); Total Protein 6.3 gm/dl (6.0-8.3)
--- NOTE | 2024-07-07 21:57 | Emergency Department Note ---
History of Present Illness General Chief complaint: Weakness Stated complaint: LIP QUIVER, BLINKING RAPIDLY, SPEACH IS HARD Time Seen by Provider: 07/07/24 21:34 History of Present Illness This is a 29-year-old female presenting to the emergency department for evaluation of lip quivering, difficulty speaking, and blinking rapidly. Patient has extensive history of stills disease, undifferentiated inflammatory polyarthritis, and electrolyte imbalance. She was recently admitted to this facility for the electrolyte imbalance, which was corrected and she is following with nephrology. Patient started on metoclopramide, and has taken roughly 1 day of the medication before starting with symptoms. She has not had fevers or chills. She rates her discomfort a 3/10. Home Medications Medication Instructions Recorded Confirmed Type fluoxetine 20 mg capsule 20 mg PO QAM 04/01/24 07/08/24 History ferrous sulfate 325 mg (65 mg 325 mg PO Q2D 05/20/24 07/08/24 History iron) tablet cyanocobalamin (vitamin B-12) 500 1,000 mcg (2 x 500 mcg) PO QAM #30 05/23/24 07/08/24 Rx mcg tablet tabs fenofibrate 160 mg tablet 160 mg PO QAM 07/03/24 07/08/24 History hydrocortisone 2.5 % topical cream 1 applic topical DIRECTED 07/03/24 07/08/24 History levothyroxine 88 mcg tablet 88 mcg PO QAM 07/03/24 07/08/24 History omeprazole 20 mg capsule,delayed 20 mg PO QAM 07/03/24 07/08/24 History release calcitriol 0.5 mcg capsule 0.5 mcg PO DAILY #30 caps 07/05/24 07/08/24 Rx calcium 250 mg 1 tab PO BID #60 tabs 07/05/24 07/08/24 Rx (citrate)-ergocalciferol (D2) 2.5 mcg (100 unit) tablet (Chriss-Citrate) ergocalciferol (vitamin D2) 1,250 50,000 unit PO .weekly #20 caps 07/05/24 07/08/24 Rx mcg (50,000 unit) capsule magnesium oxide 400 mg PO BID #60 tabs 07/05/24 07/08/24 Rx ondansetron 4 mg disintegrating 4 mg PO Q6H PRN nausea and 07/05/24 07/08/24 Rx tablet vomiting #20 tabs sodium chloride 1,000 mg soluble 1,000 mg PO DAILY #30 tabs 07/05/24 07/08/24 Rx tablet Allergies Allergy/AdvReac Type Severity Reaction Status Date / Time adalimumab-atto Allergy Severe Chills and Verified 07/04/24 00:03 [From Narda(CF)] hot flashes sulfasalazine Allergy Severe Unknown Verified 07/04/24 00:03 Skin Reaction metoclopramide [From Reglan] AdvReac Intermediate facial Verified 07/08/24 09:55 twitch Past Med/Surg History Problem List (Updated 07/08/24 @ 21:55 by Godwin Greer PA-C) Pancreatitis (Acute) Elevated troponin Hypokalemia Depression Seronegative arthritis Hypothyroidism (acquired) Severe protein-calorie malnutrition Pleural effusion, left 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, unspecified Malnutrition Acute on chronic anemia 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 activation syndrome Electrolyte abnormality (Acute) Pleural effusion Pancreatitis (Acute) Hypomagnesemia (Acute) Hyponatremia (Acute) Migraine Headache Leukocytopenia Seronegative polyarthritis (Acute) Anemia Sinus tachycardia Arthralgia Chills Elevated troponin (Acute) Anxiety Surgical History History of lymph node biopsy Family History Grandfather (Paternal) Myocardial infarction Father Myocardial infarction Family/Other Diabetes cousin Grandmother (Maternal) Pancreatoblastoma Social History Smoking Status: Never smoker Second Hand Exposure: No; Do You Dip or Chew Tobacco: No; Hx Alcohol Use: No Hx Substance Use: No Preferred Language: Swedish Communication Ability: Effective Automatic Pattern Edger Required: No Beliefs That Will Affect Care: None Current Living Situation: Family Current Living Situation Comment: one story home with Howard Feels Safe at Home: Yes Assistive Devices: Raised Toilet Seat and Walker Review of Systems A total of 10 systems reviewed and were otherwise negative Physical Exam Vital Signs Vital Signs - 24 hr 07/07/24 22:10 07/07/24 23:23 07/08/24 01:15 Pulse Rate Pulse Rate [Apical] 124 H 121 H 102 H Respiratory Rate 30 H 30 H 24 Respiratory Effort / Characteristics Spontaneous Spontaneous Respiratory Depth Normal Respiratory Pattern Regular Regular Blood Pressure [Right Arm] 110/76 114/76 95/62 L Blood Pressure Mean [Right Arm] 87 88 73 Pulse Oximetry 98 98 99 Oxygen Delivery Method Room Air Room Air 07/08/24 01:17 Pulse Rate 103 H Pulse Rate [Apical] Respiratory Rate Respiratory Effort / Characteristics Respiratory Depth Respiratory Pattern Blood Pressure [Right Arm] Blood Pressure Mean [Right Arm] Pulse Oximetry Oxygen Delivery Method VITALS: Vitals are noted on the nurse's note and reviewed by myself. Vital signs stable. GENERAL: Well-developed, well-nourished, white female, who is in no acute distress and resting comfortably. Patient is cooperative with the examination. HEAD: Normocephalic atraumatic. EARS: External ear normal. External auditory canals clear, tympanic membranes pearly bello without erythema or effusion bilaterally. EYES: Pupils equal round and reactive to light and accommodation. Conjunctivae without injection, sclerae without icterus. Extraocular movements intact. NOSE: Patent, turbinates without inflammation or discharge. MOUTH: Mucous membranes moist. Tonsils are not enlarged. Pharynx without erythema, blood, or exudate. Uvula midline. Airway patent. NECK: Supple without nuchal rigidity. No lymphadenopathy. No thyromegaly. Cervical spine is nontender. HEART: Regular rate and rhythm without murmurs gallops or rubs. LUNGS: Clear to auscultation bilaterally without wheezes, rales or rhonchi. No retractions or accessory muscle use. Course Administered Medications Calcitriol (Calcitriol 0.25 Mcg Capsule) 0.5 mcg PO DAILY [facility] Stop: 08/07/24 08:59 Last Admin: 07/08/24 08:11 Dose: 0.5 mcg Documented By: DLR Calcium/Vitamin D (Calcium 600mg + Vit D 400 Iu Tab) 1 tab PO BID [facility] Stop: 08/07/24 08:59 Last Admin: 07/08/24 20:10 Dose: 1 tab Documented By: metallurgy teacher: 07/08/24 08:12 Dose: 1 tab Documented By: DLR Cyanocobalamin (Cyanocobalamin (B-12) 500 Mcg Tablet) 1,000 mcg PO QAM [facility] Stop: 08/07/24 08:59 Last Admin: 07/08/24 08:13 Dose: 1,000 mcg Documented By: DLR Ergocalciferol (Ergocalciferol 1250 Mcg (50,000 Units) Cap) 1,250 mcg PO Q7D@0900 [facility] Stop: 08/07/24 08:59 Last Admin: 07/08/24 08:12 Dose: 1,250 mcg Documented By: DLR Fenofibrate (Fenofibrate Nanocrystallized 145 Mg Tablet) 145 mg PO QAM [facility] Stop: 08/07/24 08:59 Last Admin: 07/08/24 08:12 Dose: 145 mg Documented By: DLR Ferrous Sulfate (Ferrous Sulfate 325 Mg Tab) 325 mg PO Q48H [facility] Stop: 08/07/24 08:59 Last Admin: 07/08/24 08:12 Dose: 325 mg Documented By: DLR Fluoxetine HCl (Fluoxetine Hcl 20 Mg Cap) 20 mg PO QAM [facility] Stop: 08/07/24 08:59 Last Admin: 07/08/24 08:11 Dose: 20 mg Documented By: DLR Heparin Sodium (Porcine) (Heparin Sod 5,000 Unit/0.5 Ml Vial) 5,000 units SQ Q8 [facility] Stop: 08/07/24 05:59 Last Admin: 07/08/24 21:00 Dose: 5,000 units Documented By: metallurgy teacher: 07/08/24 14:21 Dose: Not Given Documented By: Admin: 07/08/24 06:07 Dose: 5,000 units Documented By: CF Levothyroxine Sodium (Levothyroxine Sodium 88 Mcg Tablet) 88 mcg PO DAILYBB [facility] Stop: 08/07/24 06:29 Last Admin: 07/08/24 06:07 Dose: 88 mcg Documented By: CF Lorazepam (Lorazepam 0.5 Mg Tab) 0.25 mg PO TID PRN PRN Reason: Anxiety Stop: 08/07/24 02:01 Last Admin: 07/08/24 16:25 Dose: 0.25 mg Documented By: DLR Magnesium Oxide (Magnesium Oxide 400 Mg Tab) 800 mg PO BID [facility] Stop: 08/07/24 20:59 Last Admin: 07/08/24 20:09 Dose: 800 mg Documented By: MED Megestrol Acetate (Megestrol Acetate Susp 400 Mg/10 Ml Udc) 400 mg PO BID [facility] Stop: 08/07/24 20:59 Last Admin: 07/08/24 21:00 Dose: 400 mg Documented By: MED Pantoprazole Sodium (Pantoprazole 40 Mg Tab) 40 mg PO QAM ABBY Stop: 08/07/24 08:59 Last Admin: 07/08/24 08:12 Dose: 40 mg Documented By: DLR Potassium Chloride (Potassium Chloride Crtab 20 Meq Tabcr) 40 meq PO DAILY ABBY Stop: 08/07/24 11:29 Last Admin: 07/08/24 11:43 Dose: 40 meq Documented By: DLR Sodium Chloride (Sodium Chloride 1 Gm Tablet) 1 gm PO DAILY ABBY Stop: 08/07/24 08:59 Last Admin: 07/08/24 08:12 Dose: 1 gm Documented By: DLR Discontinued Medications Sodium Chloride (Nss) 1,000 mls @ 999 mls/hr IV .Q1H1M ONE Stop: 07/07/24 22:50 Last Infusion: 07/08/24 01:41 Dose: Infused Documented By: MED(2) Admin: 07/07/24 22:02 Dose: 999 mls/hr Documented By: MED(2) Magnesium Sulfate/Dextrose (Magnesium Sulfate / D5w) 1 gm in 100 mls @ 100 mls/hr IV NOW STA Stop: 07/08/24 00:05 Last Infusion: 07/08/24 01:41 Dose: Infused Documented By: MED(2) Admin: 07/07/24 23:21 Dose: 100 mls/hr Documented By: MED(2) Magnesium Sulfate/Dextrose (Magnesium Sulfate / D5w) 1 gm in 100 mls @ 50 mls/hr IV Q2H ABBY Stop: 07/08/24 05:29 Last Infusion: 07/08/24 06:39 Dose: Infused Documented By: Admin: 07/08/24 04:34 Dose: 50 mls/hr Documented By: Infusion: 07/08/24 03:52 Dose: Infused Documented By: Admin: 07/08/24 01:52 Dose: 50 mls/hr Documented By: MED(2) Potassium Chloride/Sodium Chloride (Normal Saline W/20 Meq Kcl) 20 meq in 1,000 mls @ 75 mls/hr IV .[id number] ONE Stop: 07/08/24 15:22 Last Infusion: 07/08/24 16:34 Dose: Infused Documented By: Admin: 07/08/24 04:52 Dose: 75 mls/hr Documented By: EMIL Ioversol (Optiray 320 100ml) 100 ml IV ONCE ONE Stop: 07/08/24 00:27 Last Admin: 07/08/24 00:26 Dose: 93 ml Documented By: PRATEEK Lorazepam (Lorazepam 1 Mg/1 Ml Syr Ed Inj Use) 0.5 mg IV ONE STA Stop: 07/07/24 21:50 Last Admin: 07/07/24 22:02 Dose: 0.5 mg Documented By: MED(2) Magnesium Oxide (Magnesium Oxide 400 Mg Tab) 400 mg PO BID ABBY Stop: 08/07/24 08:59 Last Admin: 07/08/24 08:13 Dose: 400 mg Documented By: DLR Medical Decision Making Differential Diagnosis Differential diagnosis: Etiologies such as medication reaction, stroke, alcohol intoxication, toxicological, infection, hypoglycemia, electrolyte abnormalities, cardiac sources, intracerebral event, neurologic, as well as others were entertained. Laboratory Data 07/08/24 09:04 07/08/24 05:54 Lab Results 07/07/24 07/07/24 Range/Units 19:09 22:41 WBC 4.25 L (4.8-10.8) K/ul RBC 3.04 L (4.20-5.40) M/uL Hgb 8.1 L (12.0-16.0) g/dl Hct 25.1 L (37.0-47.0) % MCV 82.6 (80.0-100.0) fL MCH 26.6 (25.0-34.0) pg MCHC 32.3 (32.0-36.0) g/dL RDW Std Deviation 47.8 H (36.4-46.3) fL RDW Coeff of Jackie 15.9 H (11.5-14.5) % Plt Count 402 H (130-400) K/uL MPV 9.2 L (9.4-12.4) fL Immature Gran % (Auto) 1.2 % Neut % (Auto) 88.2 % Lymph % (Auto) 5.9 % Hyde % (Auto) 4.7 % Eos % (Auto) 0.0 % Baso % (Auto) 0.0 % Neut # (Auto) 3.75 (1.40-6.50) K/uL Lymph # (Auto) 0.25 L (1.20-3.40) K/uL Hyde # (Auto) 0.20 (0.11-0.59) K/uL Eos # (Auto) 0.00 (0.00-0.50) K/uL Baso # (Auto) 0.00 (0.00-0.20) K/uL Immature Gran # (Auto) 0.05 (0.01-0.20) K/uL Sodium 130 L (136-145) mmol/L Potassium 3.9 (3.5-5.1) mmol/L Chloride 94 L (98-107) mmol/L Carbon Dioxide 30 (21-32) mmol/L Anion Gap 6 (3-11) BUN 12 (6-23) mg/dl Creatinine 0.53 L (0.6-1.2) mg/dl Est Cr Clr Drug Dosing Not Reportable eGFR 129.92 BUN/Creatinine Ratio 22.6 H (10-20) Glucose 105 H (70-99(Fasting)) mg/dl Calcium 9.2 (8.6-10.3) mg/dl Magnesium 1.3 L (1.7-2.4) mg/dl Total Bilirubin 0.4 (0.2-1.0) mg/dl AST 68 H (13-39) U/L ALT 14 (7-52) U/L Alkaline Phosphatase 70 (34-104) U/L Troponin I High Sens 57.9 H* 47.9 H D (0-14) pg/ml Total Protein 6.3 (6.0-8.3) gm/dl Albumin 3.0 L (3.4-5.0) gm/dl Globulin 3.3 (2.5-4.0) gm/dl Albumin/Globulin Ratio 0.9 (0.9-2) Lipase 1049 H (11-82) U/L TSH 9.163 H (0.300-4.500) uIu/ml Free T4 1.07 (0.61-1.60) ng/dl Lyme Disease Screen Negative (Negative) Imaging Data Radiologist's Impression: Abdomen/Pelvis CT 07/07/24 23:25 EXAM: CT abd pelvis IV con only CLINICAL HISTORY: Increasing lipase, tachy TECHNIQUE: CT of the abdomen and pelvis was performed with 93ml of Opitray-320mg/ml contrast, with the following protocol: axial images with, and reconstructed coronal and sagittal images. One of the following dose reduction techniques was utilized for this exam: Automated exposure control, adjustment of the mA and/or kV according to patient size, and use of iterative reconstruction. COMPARISON: Comparison is made with previous CT imaging study dated 07/03/2024. FINDINGS: Abdomen: Still noted is mild left-sided pleural effusion with passive subsegmental collapse of left lower lobe. Unchanged previously noted loculated fluid collection of Approximately [id number] mm size compared to 60 x 57 x 88 mm with mild peripheral enhancement is noted involving peripancreatic and intrapancreatic region in the gastrocolic space. Unchanged Mild thickening of distal body and tail of pancreas without obvious necrotic component. OBX.5.1OBX.5.1.1Still noted Mild inflammatory thickening is also noted involving adjacent large bowel loops. Diffuse adjacent omental thickening with nodularity /OBX.5.1.1OBX.5.1.2 fat stranding was also seen. /OBX.5.1.2/OBX.5.1 Liver: Enlarged in size (22,5 cm in right lobe span ), shape, and density. No focal lesions, cysts, or masses were identified. Hepatic vasculature and biliary ducts are unremarkable. Gallbladder and Biliary System: The gallbladder is normal in size and shape. No wall thickening, pericholecystic fluid, or gallstones were identified. The common bile duct is normal in caliber without dilation. Spleen: Normal in size, shape, and density. No splenic lesions or masses were identified. Kidneys and Adrenal Glands: Both kidneys are normal in size, shape, and position. Cortical thickness is within normal limits. No renal calculi or hydronephrosis. Adrenal glands are unremarkable with no evidence of masses or hyperplasia. Pelvis: Urinary Bladder: Normal in contour and wall thickness. No intraluminal lesions were identified. Uterus: Normal in size and contour. No masses or abnormal thickening. Ovaries: Not well visualized but no gross abnormalities were noted. Vagina: Normal in contour and wall thickness. Cervix: No evidence of mass or abnormal thickening. Peritoneal and Retroperitoneal Structures: Mild free pelvic ascites are also newly seen. Mildly enlarged reactionary retroperitoneal lymphadenopathy was noted. Bowel: The visualized bowel loops are normal in caliber and appearance. No evidence of bowel obstruction or wall thickening. Bones and Soft Tissues: Mild right side scoliosis seen. Pelvic bones and soft tissues are unremarkable. No fractures or abnormal masses were identified. IMPRESSION: OBX.5.1OBX.5.1.11. Unchanged size and appearance of the previously noted complicated pancreatitis with giovanny pancreatic /OBX.5.1.1OBX.5.1.2 gastric bed loculated fluid collection referring to acute peripancretic collection, follow up is advised./OBX.5.1.2/OBX.5.1 2. Hepatomegaly was seen. (stable). 3. Retroperitoneal mild lymphadenopathy noted. (stable ). 4. Newly noted mild free pelvic ascites. 5. Still noted mild left-side pleural effusion. Electronically signed by Ginger Bar 07-08-2024 01:50 AM Chest X-Ray 07/08/24 01:25 EXAM: XR chest 1V portable CLINICAL HISTORY: HYPONATREMIA TECHNIQUE: An X-ray image of the chest is obtained in AP projection. COMPARISON: CT: 07/03/2024 FINDINGS: Pulmonary Parenchyma: No definite lung consolidation or masses. Subtle blunting of the left costophrenic angle. Clear right costophrenic angle. Heart and Mediastinum: Heart size and shape are normal. No mediastinal widening or masses. Bony Thorax: The bony thorax appears intact without fractures or deformities. Soft Tissues: Soft tissues overlying the chest wall are unremarkable. IMPRESSION: 1. Subtle blunting of the left costophrenic angle, indicating mild pleural effusion/thickening. (Stable) 2. No consolidation or cavitation was seen. Electronically signed by Ginger Bar 07-08-2024 03:31 AM MDM Narrative Physical exam and history were performed. Nursing notes, EMR, and Medication List were personally reviewed. No social concerns were identified as barriers to patients care. Patient appears to have several symptoms bringing her to the ER. Patient's primary voiced concern is that she may have tardive dyskinesia from taking metoclopramide for the past 1 to 2 days. IV access was established and labs were obtained. Patient's blood work is as above and was reviewed. She does not have a significantly elevated white blood cell count. She is anemic at 8.1. Magnesium is 1.3 despite taking home magnesium supplements. BUN and creatinine seem preserved. Glucose normal. Transaminases are not diagnostic. She does have an elevated initial troponin of 57 with repeat decreasing to 47. This is likely demand related as she is persistently tachycardic. Patient's lipase is over thousand, which seems to be increasing from several days ago when it was 800. CT scan of the abdomen and pelvis was performed and reviewed by myself and radiology and continues to show pancreatic findings as above. Overall the patient does not appear well for discharge and escalation of care is felt to be necessary. She has an elevated troponin, low magnesium, anemia, and elevated lipase from previous. Patient case was discussed with the on-call hospitalist who agreed to evaluate her here in the ER. Please see the hospitalist dictation for further patient course, plan, and disposition. The chart was completed utilizing [employer] Speech Voice Recognition Software. Grammatical errors, random word insertions, pronoun errors, and incomplete sentences are an occasional consequence of this system due to software limitations, ambient noise, and hardware issues. Any formal questions or concerns about the content, text, or information contained within the body of this dictation should be directly addressed to the provider for clarification. Impression & Plan Pancreatitis, Hypomagnesemia, Electrolyte abnormality Discharge Plan Visit Data Chief Complaint: Weakness Stated Complaint: LIP QUIVER, BLINKING RAPIDLY, SPEACH IS HARD ED Provider: Candelaria Botello ED Midlevel Provider: Godwin Greer Discharge Problem: Pancreatitis, Hypomagnesemia, Electrolyte abnormality Patient Disposition: Admitted As Inpatient Discharge Instructions Interventions: ED Discharge Assessment Last Done: 07/08/24 03:01
[2024-07-07] MEDS: SODIUM CHLORIDE 0.9% 1,000 ML IV ONE (22:02)
[2024-07-07] MEDS: LORazepam 1 MG/1 ML SYR ED Inj Use IV STA (22:02)
[2024-07-07 22:12] LABS: Troponin I High Sensitivity 57.9 pg/ml (0-14)
[2024-07-07 22:16] LABS: Thyroid Stimulating Hormone 9.163 uIu/ml (0.300-4.500)
[2024-07-07 22:20] LABS: Lipase 1049 U/L (11-82); Magnesium 1.3 mg/dl (1.7-2.4)
[2024-07-07 22:51] LABS: T4 Free Thyroxine 1.07 ng/dl (0.61-1.60)
[2024-07-07] MEDS: MAGNESIUM SULFATE / D5W 1 GM/100 ML BAG IV STA (23:21)
[2024-07-08] MEDS: OPTIRAY 320 100ml IV ONE (00:26)
--- NOTE | 2024-07-08 01:50 | CT Scan Report ---
EXAM: CT abd pelvis IV con only CLINICAL HISTORY: Increasing lipase, tachy TECHNIQUE: CT of the abdomen and pelvis was performed with 93ml of Opitray-320mg/ml contrast, with the following protocol: axial images with, and reconstructed coronal and sagittal images. One of the following dose reduction techniques was utilized for this exam: Automated exposure control, adjustment of the mA and/or kV according to patient size, and use of iterative reconstruction. COMPARISON: Comparison is made with previous CT imaging study dated 07/03/2024. FINDINGS: Abdomen: Still noted is mild left-sided pleural effusion with passive subsegmental collapse of left lower lobe. Unchanged previously noted loculated fluid collection of Approximately [id number] mm size compared to 60 x 57 x 88 mm with mild peripheral enhancement is noted involving peripancreatic and intrapancreatic region in the gastrocolic space. Unchanged Mild thickening of distal body and tail of pancreas without obvious necrotic component. OBX.5.1OBX.5.1.1Still noted Mild inflammatory thickening is also noted involving adjacent large bowel loops. Diffuse adjacent omental thickening with nodularity /OBX.5.1.1OBX.5.1.2 fat stranding was also seen. /OBX.5.1.2/OBX.5.1 Liver: Enlarged in size (22,5 cm in right lobe span ), shape, and density. No focal lesions, cysts, or masses were identified. Hepatic vasculature and biliary ducts are unremarkable. Gallbladder and Biliary System: The gallbladder is normal in size and shape. No wall thickening, pericholecystic fluid, or gallstones were identified. The common bile duct is normal in caliber without dilation. Spleen: Normal in size, shape, and density. No splenic lesions or masses were identified. Kidneys and Adrenal Glands: Both kidneys are normal in size, shape, and position. Cortical thickness is within normal limits. No renal calculi or hydronephrosis. Adrenal glands are unremarkable with no evidence of masses or hyperplasia. Pelvis: Urinary Bladder: Normal in contour and wall thickness. No intraluminal lesions were identified. Uterus: Normal in size and contour. No masses or abnormal thickening. Ovaries: Not well visualized but no gross abnormalities were noted. Vagina: Normal in contour and wall thickness. Cervix: No evidence of mass or abnormal thickening. Peritoneal and Retroperitoneal Structures: Mild free pelvic ascites are also newly seen. Mildly enlarged reactionary retroperitoneal lymphadenopathy was noted. Bowel: The visualized bowel loops are normal in caliber and appearance. No evidence of bowel obstruction or wall thickening. Bones and Soft Tissues: Mild right side scoliosis seen. Pelvic bones and soft tissues are unremarkable. No fractures or abnormal masses were identified. IMPRESSION: OBX.5.1OBX.5.1.11. Unchanged size and appearance of the previously noted complicated pancreatitis with giovanny pancreatic /OBX.5.1.1OBX.5.1.2 gastric bed loculated fluid collection referring to acute peripancretic collection, follow up is advised./OBX.5.1.2/OBX.5.1 2. Hepatomegaly was seen. (stable). 3. Retroperitoneal mild lymphadenopathy noted. (stable ). 4. Newly noted mild free pelvic ascites. 5. Still noted mild left-side pleural effusion. Electronically signed by Ginger Bar 07-08-2024 01:50 AM
[2024-07-08] MEDS: MAGNESIUM SULFATE / D5W 1 GM/100 ML BAG IV SCH (01:52)
--- NOTE | 2024-07-08 01:59 | History & Physical Report ---
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 Heparin subcu Full code Home in a.m. if serum magnesium with normal limits and dystonic reaction attributed to Reglan resolved. Text document was generated using [employer] voice recognition software. It may contain grammatical or spelling errors. Kindly contact undersigned for clarification of any documentation item in question. History of Present Illness Chief Complaint: Facial twitch Primary Care Provider: Payal Myers MD History obtained from patient, family, and records. Medical history significant for seronegative polyarthritis, macrophage activation syndrome, chronic left pleural effusion, history of gallstone pancreatitis, chronic hyponatremia, chronic hypocalcemia, hypothyroidism, chronic anemia (baseline hemoglobin 8-9), mood disorder. Recent [facility] confinement July 03 to 2023 for hypercalcemia, hyponatremia, and hypomagnesemia. Hypercalcemia attributed to calcium and D supplementation for hypocalcemia during recent C confinement. Home Calcium and D supplements initially held but later restarted at a lower dose by nephrology. Patient discharged on salt tablets and mag oxide supplements., GI was consulted for pancreatitis and fluid collections. Repeat CT abdomen pelvis recommended after 3 weeks to assess maturity and to determine if EUS drainage and option. Pulmonology consulted for evaluation of persistent left pleural effusion following [facility] confinement. Effusion attributed to pancreatitis and autoimmune disorder as per records. Patient discharged on Reglan Rx to facilitate better meal tolerance given malnutrition. Involuntary twitching more of the face noted over the last couple of days. No unusual headache, chest pain, SOB, abdominal pain complaints. Patient consulted ER for persistent symptoms. 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 Allergies Allergy/AdvReac Type Severity Reaction Status Date / Time adalimumab-atto Allergy Severe Chills and Verified 07/04/24 00:03 [From Narda(EMIL)] hot flashes sulfasalazine Allergy Severe Unknown Verified 07/04/24 00:03 Skin Reaction metoclopramide [From Reglan] AdvReac Intermediate facial Verified 07/08/24 09:55 twitch Home Medications Medication Instructions Recorded Confirmed Type fluoxetine 20 mg capsule 20 mg PO QAM 04/01/24 07/08/24 History ferrous sulfate 325 mg (65 mg 325 mg PO Q2D 05/20/24 07/08/24 History iron) tablet cyanocobalamin (vitamin B-12) 500 1,000 mcg (2 x 500 mcg) PO QAM #30 05/23/24 07/08/24 Rx mcg tablet tabs fenofibrate 160 mg tablet 160 mg PO QAM 07/03/24 07/08/24 History hydrocortisone 2.5 % topical cream 1 applic topical DIRECTED 07/03/24 07/08/24 History levothyroxine 88 mcg tablet 88 mcg PO QAM 07/03/24 07/08/24 History omeprazole 20 mg capsule,delayed 20 mg PO QAM 07/03/24 07/08/24 History release calcitriol 0.5 mcg capsule 0.5 mcg PO DAILY #30 caps 07/05/24 07/08/24 Rx calcium 250 mg 1 tab PO BID #60 tabs 07/05/24 07/08/24 Rx (citrate)-ergocalciferol (D2) 2.5 mcg (100 unit) tablet (Chriss-Citrate) ergocalciferol (vitamin D2) 1,250 50,000 unit PO .weekly #20 caps 07/05/24 07/08/24 Rx mcg (50,000 unit) capsule magnesium oxide 400 mg PO BID #60 tabs 07/05/24 07/08/24 Rx ondansetron 4 mg disintegrating 4 mg PO Q6H PRN nausea and 07/05/24 07/08/24 Rx tablet vomiting #20 tabs sodium chloride 1,000 mg soluble 1,000 mg PO DAILY #30 tabs 07/05/24 07/08/24 Rx tablet Past Med/Surg History Problem List Pleural effusion, left 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, unspecified Malnutrition Acute on chronic anemia 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 activation syndrome Electrolyte abnormality Pleural effusion Pancreatitis (Acute) Hypomagnesemia (Acute) Hyponatremia (Acute) Migraine Headache Leukocytopenia Seronegative polyarthritis (Acute) Anemia Sinus tachycardia Arthralgia Chills Elevated troponin (Acute) Anxiety Surgical History History of lymph node biopsy Family History Grandfather (Paternal) Myocardial infarction Father Myocardial infarction Family/Other Diabetes cousin Grandmother (Maternal) Pancreatoblastoma Social History Smoking Status: Never smoker Second Hand Exposure: No; Do You Dip or Chew Tobacco: No; Hx Alcohol Use: No Hx Substance Use: No Preferred Language: Amharic Communication Ability: Effective 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 Beliefs That Will Affect Care: None Current Living Situation: Family Current Living Situation Comment: one story home with Howard Feels Safe at Home: Yes Assistive Devices: Raised Toilet Seat and Walker Review of Systems Review of Systems: As per HPI, all other systems reviewed and negative Physical Exam Physical Exam: GENERAL: underweight, chronically ill, no respiratory distress SKIN: Pallor, warm HEENT: Pale palpebral conjunctivae, no ptosis, dry buccal mucosa NECK : Supple, no tenderness CHEST : Decreased breath sounds, no tenderness HEART : Tachycardic, no obvious murmurs ABDOMEN: Some distention, minimal epigastric tenderness EXTREMITIES : No LE swelling/tenderness, no other conspicuous deformities noted NEUROLOGIC : Coherent, no facial asymmetry, no involuntary movements of the face appreciated at time of encounter, no other gross focality Results & Data Results & Data Vital Signs (Past 12 Hours) Vital Signs Temp Pulse Pulse Resp BP BP Pulse Ox 07/08/24 01:17 103 H 07/08/24 01:15 102 H 24 95/62 L 99 07/07/24 23:23 121 H 30 H 114/76 98 07/07/24 22:10 124 H 30 H 110/76 98 07/07/24 21:07 122 H 07/07/24 20:35 100 H 28 H 115/76 07/07/24 18:44 36.5 C 137 H 19 109/70 100 O2 Del Method 07/08/24 01:17 07/08/24 01:15 07/07/24 23:23 Room Air 07/07/24 22:10 Room Air 07/07/24 21:07 07/07/24 20:35 07/07/24 18:44 Room Air Laboratory Results Laboratory Results WBC 4.25 K/ul (4.8-10.8) L 07/07/24 19:09 RBC 3.04 M/uL (4.20-5.40) L 07/07/24 19:09 Hgb 8.1 g/dl (12.0-16.0) L 07/07/24 19:09 Hct 25.1 % (37.0-47.0) L 07/07/24 19:09 MCV 82.6 fL (80.0-100.0) 07/07/24 19:09 MCH 26.6 pg (25.0-34.0) 07/07/24 19:09 MCHC 32.3 g/dL (32.0-36.0) 07/07/24 19:09 RDW Std Deviation 47.8 fL (36.4-46.3) H 07/07/24 19:09 RDW Coeff of Jackie 15.9 % (11.5-14.5) H 07/07/24 19:09 Plt Count 402 K/uL (130-400) H 07/07/24 19:09 MPV 9.2 fL (9.4-12.4) L 07/07/24 19:09 Immature Gran % (Auto) 1.2 % 07/07/24 19:09 Neut % (Auto) 88.2 % 07/07/24 19:09 Lymph % (Auto) 5.9 % 07/07/24 19:09 Josephine % (Auto) 4.7 % 07/07/24 19:09 Eos % (Auto) 0.0 % 07/07/24 19:09 Baso % (Auto) 0.0 % 07/07/24 19:09 Neut # (Auto) 3.75 K/uL (1.40-6.50) 07/07/24 19:09 Lymph # (Auto) 0.25 K/uL (1.20-3.40) L 07/07/24 19:09 Josephine # (Auto) 0.20 K/uL (0.11-0.59) 07/07/24 19:09 Eos # (Auto) 0.00 K/uL (0.00-0.50) 07/07/24 19:09 Baso # (Auto) 0.00 K/uL (0.00-0.20) 07/07/24 19:09 Immature Gran # (Auto) 0.05 K/uL (0.01-0.20) 07/07/24 19:09 Sodium 130 mmol/L (136-145) L 07/07/24 19:09 Potassium 3.9 mmol/L (3.5-5.1) 07/07/24 19:09 Chloride 94 mmol/L (98-107) L 07/07/24 19:09 Carbon Dioxide 30 mmol/L (21-32) 07/07/24 19:09 Anion Gap 6 (3-11) 07/07/24 19:09 BUN 12 mg/dl (6-23) 07/07/24 19:09 Creatinine 0.53 mg/dl (0.6-1.2) L 07/07/24 19:09 Est Cr Clr Drug Dosing Not Reportable 07/07/24 19:09 eGFR 129.92 07/07/24 19:09 BUN/Creatinine Ratio 22.6 (10-20) H 07/07/24 19:09 Glucose 105 mg/dl (70-99(Fasting)) H 07/07/24 19:09 Calcium 9.2 mg/dl (8.6-10.3) 07/07/24 19:09 Magnesium 1.3 mg/dl (1.7-2.4) L 07/07/24 19:09 Total Bilirubin 0.4 mg/dl (0.2-1.0) 07/07/24 19:09 AST 68 U/L (13-39) H 07/07/24 19:09 ALT 14 U/L (7-52) 07/07/24 19:09 Alkaline Phosphatase 70 U/L (34-104) 07/07/24 19:09 Troponin I High Sens 47.9 pg/ml (0-14) H D 07/07/24 22:41 Total Protein 6.3 gm/dl (6.0-8.3) 07/07/24 19:09 Albumin 3.0 gm/dl (3.4-5.0) L 07/07/24 19:09 Globulin 3.3 gm/dl (2.5-4.0) 07/07/24 19:09 Albumin/Globulin Ratio 0.9 (0.9-2) 07/07/24 19:09 Lipase 1049 U/L (11-82) H 07/07/24 19:09 TSH 9.163 uIu/ml (0.300-4.500) H 07/07/24 19:09 Free T4 1.07 ng/dl (0.61-1.60) 07/07/24 19:09 Lyme Disease Screen Negative (Negative) 07/07/24 19:09 Impressions Abdomen/Pelvis CT 07/07/24 23:25 EXAM: CT abd pelvis IV con only CLINICAL HISTORY: Increasing lipase, tachy TECHNIQUE: CT of the abdomen and pelvis was performed with 93ml of Opitray-320mg/ml contrast, with the following protocol: axial images with, and reconstructed coronal and sagittal images. One of the following dose reduction techniques was utilized for this exam: Automated exposure control, adjustment of the mA and/or kV according to patient size, and use of iterative reconstruction. COMPARISON: Comparison is made with previous CT imaging study dated 07/03/2024. FINDINGS: Abdomen: Still noted is mild left-sided pleural effusion with passive subsegmental collapse of left lower lobe. Unchanged previously noted loculated fluid collection of Approximately [id number] mm size compared to 60 x 57 x 88 mm with mild peripheral enhancement is noted involving peripancreatic and intrapancreatic region in the gastrocolic space. Unchanged Mild thickening of distal body and tail of pancreas without obvious necrotic component. OBX.5.1OBX.5.1.1Still noted Mild inflammatory thickening is also noted involving adjacent large bowel loops. Diffuse adjacent omental thickening with nodularity /OBX.5.1.1OBX.5.1.2 fat stranding was also seen. /OBX.5.1.2/OBX.5.1 Liver: Enlarged in size (22,5 cm in right lobe span ), shape, and density. No focal lesions, cysts, or masses were identified. Hepatic vasculature and biliary ducts are unremarkable. Gallbladder and Biliary System: The gallbladder is normal in size and shape. No wall thickening, pericholecystic fluid, or gallstones were identified. The common bile duct is normal in caliber without dilation. Spleen: Normal in size, shape, and density. No splenic lesions or masses were identified. Kidneys and Adrenal Glands: Both kidneys are normal in size, shape, and position. Cortical thickness is within normal limits. No renal calculi or hydronephrosis. Adrenal glands are unremarkable with no evidence of masses or hyperplasia. Pelvis: Urinary Bladder: Normal in contour and wall thickness. No intraluminal lesions were identified. Uterus: Normal in size and contour. No masses or abnormal thickening. Ovaries: Not well visualized but no gross abnormalities were noted. Vagina: Normal in contour and wall thickness. Cervix: No evidence of mass or abnormal thickening. Peritoneal and Retroperitoneal Structures: Mild free pelvic ascites are also newly seen. Mildly enlarged reactionary retroperitoneal lymphadenopathy was noted. Bowel: The visualized bowel loops are normal in caliber and appearance. No evidence of bowel obstruction or wall thickening. Bones and Soft Tissues: Mild right side scoliosis seen. Pelvic bones and soft tissues are unremarkable. No fractures or abnormal masses were identified. IMPRESSION: OBX.5.1OBX.5.1.11. Unchanged size and appearance of the previously noted complicated pancreatitis with giovanny pancreatic /OBX.5.1.1OBX.5.1.2 gastric bed loculated fluid collection referring to acute peripancretic collection, follow up is advised./OBX.5.1.2/OBX.5.1 2. Hepatomegaly was seen. (stable). 3. Retroperitoneal mild lymphadenopathy noted. (stable ). 4. Newly noted mild free pelvic ascites. 5. Still noted mild left-side pleural effusion. Electronically signed by Ginger Bar 07-08-2024 01:50 AM Diagnostic Findings EKG as per my interpretation : rate 120, sinus tachycardia, normal axis, incomplete RBBB, no ischemia
[2024-07-08] MEDS ORDERED: PROMETHAZINE 6.25 MG/50.25 ML BAG IV PRN (02:01)
[2024-07-08] MEDS ORDERED: ACETAMINOPHEN 500 MG TAB PO PRN (02:03)
--- NOTE | 2024-07-08 03:31 | XRay Report ---
EXAM: XR chest 1V portable CLINICAL HISTORY: HYPONATREMIA TECHNIQUE: An X-ray image of the chest is obtained in AP projection. COMPARISON: CT: 07/03/2024 FINDINGS: Pulmonary Parenchyma: No definite lung consolidation or masses. Subtle blunting of the left costophrenic angle. Clear right costophrenic angle. Heart and Mediastinum: Heart size and shape are normal. No mediastinal widening or masses. Bony Thorax: The bony thorax appears intact without fractures or deformities. Soft Tissues: Soft tissues overlying the chest wall are unremarkable. IMPRESSION: 1. Subtle blunting of the left costophrenic angle, indicating mild pleural effusion/thickening. (Stable) 2. No consolidation or cavitation was seen. Electronically signed by Ginger Bar 07-08-2024 03:31 AM
[2024-07-08] MEDS: NSS + 20MEQ KCL 20 MEQ/1,000 ML BAG IV ONE (04:52)
[2024-07-08] MEDS: HEPARIN SOD 5,000 UNIT/0.5 ML VIAL SQ SCH (06:07)
[2024-07-08] MEDS: LEVOTHYROXINE SODIUM 88 MCG TABLET PO SCH (06:07)
[2024-07-08 07:04] LABS: Albumin Globulin Ratio 0.8 (0.9-2); Albumin Level 2.3 gm/dl (3.4-5.0); BUN Creatinine Ratio 18.5 (10-20); Bilirubin,Total 0.3 mg/dl (0.2-1.0); Calcium 8.2 mg/dl (8.6-10.3); Creatinine Clr Calc Pharmacy 113.6 ml/min; Globulin 2.8 gm/dl (2.5-4.0); Potassium 3.2 mmol/L (3.5-5.1); Total Protein 5.1 gm/dl (6.0-8.3)
[2024-07-08 07:25] LABS: Hematocrit (blood only) 21.2 % (37.0-47.0); Hemoglobin 6.7 g/dl (12.0-16.0); Mean Corpuscular Hemoglobin 26.3 pg (25.0-34.0); Mean Corpuscular Hgb Conc 31.6 g/dL (32.0-36.0); Mean Corpuscular Volume 83.1 fL (80.0-100.0); Mean Platelet Volume 9.4 fL (9.4-12.4); Platelet Count 376 K/uL (130-400); RDW Coefficient of Variation 15.8 % (11.5-14.5); RDW Standard Deviation 48.1 fL (36.4-46.3); Red Blood Count 2.55 M/uL (4.20-5.40); White Blood Count 2.84 K/ul (4.8-10.8)
[2024-07-08 07:47] LABS: Immature Granulocytes # (auto) 0.04 K/uL (0.01-0.20); Immature Granulocytes % (auto) 1.4 %; Lymphocytes # (auto) 0.26 K/uL (1.20-3.40); Lymphocytes % (auto) 9.2 %; Monocytes # (auto) 0.11 K/uL (0.11-0.59); Monocytes % (auto) 3.9 %; Neutrophils # (auto) 2.43 K/uL (1.40-6.50); Neutrophils % (auto) 85.5 %; Ovalocytes 1+
[2024-07-08] MEDS: CALCITRIOL 0.25 MCG CAPSULE PO SCH (08:11)
[2024-07-08] MEDS: FLUoxetine HCL 20 MG CAP PO SCH (08:11)
[2024-07-08] MEDS: FENOFIBRATE NANOCRYSTALLIZED 145 MG TABLET PO SCH (08:12)
[2024-07-08] MEDS: CALCIUM 600MG + VIT D 400 IU TAB PO SCH (08:12)
[2024-07-08] MEDS: SODIUM CHLORIDE 1 GM TABLET PO SCH (08:12)
[2024-07-08] MEDS: FERROUS SULFATE 325 MG TAB PO SCH (08:12)
[2024-07-08] MEDS: PANTOprazole 40 MG TAB PO SCH (08:12)
[2024-07-08] MEDS: ERGOCALCIFEROL 1250 MCG (50,000 UNITS) CAP PO SCH (08:12)
[2024-07-08] MEDS: CYANOCOBALAMIN (B-12) 500 MCG TABLET PO SCH (08:13)
[2024-07-08] MEDS: MAGNESIUM OXIDE 400 MG TAB PO SCH ×2 (08:13→20:09)
[2024-07-08 09:29] LABS: Hematocrit (blood only) 22.2 % (37.0-47.0); Hemoglobin 7.1 g/dl (12.0-16.0)
--- OUTSIDE RECORDS SUMMARY | 2024-07-08 09:36 | External Medical Summary | Summary of Care ---
Author Name Unknown Organization [facility] [address] [address] Phone [phone] Care Team Providers Care Cut In Station Operator Name Role Phone Payal Myers MD Primary Care Provider Reason for Visit * Reason Onset Date Comments Appointment 07/05/2024 Encounter Details Date Type Department Care Team (Late st Contact Info) Description 07/05/2024 Telephone Gastroenterology, [facility] [address] [place] [address] Noreen Weller MD [address] [place] [address] Appointment Allergies Active Allergy Reactions Criticality Noted Date Comments Adalimumab High 05/20/2024 Other Reaction(s): Chills and hot flashes Sulfasalazine Rash Medium 10/23/2023 documented as of this encounter (statuses as of 07/06/2024) Medications 08/10 1-20 MG-MCG per tablet 1 [...] Tablets by mouth in the morning. 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 Anemia of chronic disease 06/02/2024 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 Iron deficiency 02/28/2024 LUDA (generalized anxiety disorder) 10/09/2023 Seronegative inflammatory arthritis 10/09/2023 documented as of this encounter (statuses as of 07/06/2024) Resolved Problems Problem Noted Date Diagnosed Date Resolved Date Ileus 06/08/2024 06/13/2024 Chest pain, non-cardiac 06/04/202405/23 Idiopathic acute pancreatitis 06/04/2024 06/13/2024 Gallstone pancreatitis 06/02/202406/13 documented as of this encounter (statuses as of 07/06/2024) Immunizations Name Administration Dates Next Due COVID-19 [...] encounter Miscellaneous Notes * Telephone Encounter - Jeanie Smith OSA - 07/06/2024 9:41 AM EST Patient returning call to schedule appointment patient scheduled 08/03/2024 & placed on fast pass. * Telephone Encounter - Una Clemens OSA - 07/06/2024 9:18 AM EST Lmm * Telephone Encounter - Noreen Weller MD - 07/05/2024 11:48 AM EST Currently admitted to [facility] with peripancreatic fluid collection after recent pancreatitis, please arrange office visit with a mid level in 2 weeks to order a follow up CT scan. documented in this encounter Plan of Treatment Upcoming Encounters Date Type Department Care Team (Late st Contact Info) Description 07/10/2024 2:40 PM EST Office Visit [facility] [address] [place] [address] [place] [address] Payal Myers MD [address] [place] [id number] 07/30/2024 2:30 PM EST Office Visit Rheumatology [place] [id number] [employer] [place] [address] Michelle Goodwin CRNP [address] [place] [address] 08/03/2024 12:30 PM EST Office Visit Gastroenterology, [facility] [address] [place] [address] Starla Sheriff CRNP [address] [place] [address] 08/19/2024 9:00 AM EST Office Visit Nephrology, [facility] [address] [place] [address] Ant Cardona MD [address] [place] [address] 08/31/2024 8:20 AM EST Office Visit [facility] [address] [place] [address] [place] [address] Payal Myers MD [address] [place] [address] 11/09/2024 3:20 PM EDT Office Visit Rheumatology [place] [id number] [place] [place] [address] Neal Vang MD [address] [employer] [place] [address] Health Maintenance Due Date Last Done Comments [...] patient or by statute hierarchy) Care Teams Cut In Station Operator Relationship Specialty Start Date End Date Payal Myers MD [address] [facility] [place] [address] PCP - General Family Medicine 01/21/24 documented as of this encounter
--- OUTSIDE RECORDS SUMMARY | 2024-07-08 09:36 | External Medical Summary | Summary of Care ---
Author Name Unknown Organization [facility] Address [address] [facility] [address] Phone [phone] Care Team Providers Care Recreation Therapy Aides Teacher Name Role Phone Payal Myers MD Primary Care Provider [phone] Reason for Visit * Reason Onset Date Comments Precert Approved 06/22/2024 Xeljanz Encounter Details Date Type Department Care Team (Late st Contact Info) Description 06/22/2024 Telephone Rheumatology [facility] [address] [place] [address] Michelle Lima CRNP [address] [place] [address] Precert Approved ( Xelaziza) Allergies Active Allergy Reactions Criticality Noted Date [...] 2 Tablets by mouth in the morning. 11/02/20 24 Active Levothyroxine Sodium 88 MCG Oral Tablet [...] Tablet 06/13/2024 2:46 PM EST 06/14/20 Active Fenofibrate [...] 06/13/2024 2:46 PM EST 06/13/20 Active predniSONE 20 MG Oral Tablet (Deltasone) Take 2 Tablets by mouth daily for 1 day, THEN 1.5 Tablets daily for 5 days, THEN 1 Tablet daily for 5 days, THEN 0.5 Tablets daily for 5 days. 17 Tablet 06/13/2024 2:46 PM EST 06/14/20 024 Ergocalciferol 1.25 MG (86093 UT) Oral Capsule (Vitamin D2(Drisdol)) Take 1 Capsule by mouth once a week. 12 Capsule 06/13/2024 2:46 PM EST 06/18/20 024 Discontinued Calcitriol 0.5 MCG Oral Capsule (Rocaltrol) Take 1 capsule in the morning and 2 capsules at night. Do not start before June 14, 2024. 60 Capsule 06/13/2024 2:46 PM EST 06/14/20 24 024 Discontinued Calcium Citrate 333 MG Oral Tablet Take 2 Tablets by mouth in the morning and 2 Tablets at noon and 2 Tablets in the evening. 120 Tablet 06/13/20 24 024 Discontinued documented as [...] Assessment Author No 06/02/2024 7:41 PM EST Benscoter , Elaine M, RN documented as of this encounter Mental Status * Because of a physical, mental, or emotional condition, do you have serious difficulty concentrating, remembering, or making decisions? (5 years old or older) Answer Entry Date Author No 06/02/2024 7:41 PM EST Elaine Baldwin RN documented in this encounter Miscellaneous Notes * Telephone Encounter - Cynthia Cerna [facility] - 07/06/2024 4:31 PM EST Rheumatology Pharmacist Appointment Request Department & Provider: Rheumatology [address] [[id number]] - Pharmacist #1 Rheumatology [facility] [[id number]] Patient to be scheduled for visit type: Telephonic Medicine Visit [[id number]] Length of visit: 60 minutes Reason for visit: Med Edu: Xeveronica Mosqueda Time Frame: within 1 week Compass Peggy Specific Scheduling Guidance Diagnosis: Rheumatoid Arthritis If medication is approved and able to be filled at [facility], please schedule for 60 minutes ([facility] will send Rx) Request routed to [facility] Specialty Scheduling Pool ([id number]) Please route this encounter back to [facility] Pharmacist Refill Pool/Class [p [phone]] if unable to schedule patient after 3 attempts. * Telephone Encounter - Lu Mandel CPhT - 06/24/2024 1:05 PM EST Rheumatology Pre-Certification Response Approved - CR Patient - Can be filled at [facility] ([facility] will send prescription after appointment) Thank you, Lu Mandel CPhT-Adv Machine Heel Builder Loan Operations Specialist [facility] ([facility]) 06/24/2024,1:05 PM * Telephone Encounter - Nirali Begum [facility] - 06/23/2024 11:03 AM EST Rheumatology Pre-Certification Request Medication/Disease State Information: Diagnosis: Rheumatoid arthritis of multiple sites without rheumatoid factor [M06.09] Medication:Xeljanz 11 mg ER daily Failed or Intolerant to or Contraindicated: Cimzia, Humira, and Sulfasalazine, NSAID, Prednisone, MTX Required Screening Information: Vaccination(s): will coordinate care for pertinent vaccine TB Testing:Completed under scans, care everywhere or epic Indeterminate TB but as per note, patient was evaluated by ID, no concerns Hepatitis B Screenings: Completed under scans, care everywhere or epic Hepatitis C Screenings: Completed under scans, care everywhere or epic No active, severe, and/or uncontrolled infection Rheumatology Office Information: Pot Fisher: MICHELLE LIMA Rheumatology Pharmacist: Nirali Begum Rheumatology Pharmacist Appointment Request Department & Provider: Rheumatology [address] [[id number]] - Pharmacist #1 Rheumatology [facility] [[id number]] Patient to be scheduled for visit type: Telephonic Medicine Visit [[id number]] Length of visit: 30 minutes Reason for visit: Med Edu: DILIP MOSQUEDA Time Frame: within 1-2 weeks Compass Peggy Specific Scheduling Guidance Diagnosis: Rheumatoid Arthritis If medication is approved and able to be filled at [facility], please schedule for 60 minutes ([facility] will send Rx) Request routed to [facility] Specialty Scheduling Pool ([id number]) Please route this encounter back to Rheum Pharmacist Refill Pool/Class [p [phone]] if unable to schedule patient after 3 attempts. * Telephone Encounter - Michelle Lima CRNP - 06/22/2024 4:12 PM EST Rheumatology Education, Pre-Certification, and/or Pharmacist Co-Management Request Medication Education (please select yes for all new starts): yes Pre-Certification: [facility]: Pre-cert for Prednisone, DMARDs & IV/IM/SC Osteoporosis Meds (routeto rheumatology pharmacist pool p [phone]) Pharmacist Co-Management: No Pharmacist Co-Management Medication/Disease State Information: Diagnosis: Rheumatoid arthritis of multiple sites without rheumatoid factor [M06.09] Medication:Xeljanz 11 mg ER daily Failed or Intolerant to or Contraindicated: Cimzia, Humira, and Sulfasalazine Comments labs up-to-date Rheumatology Pharmacist Disease Modifying Antirheumatic Drug (DMARD) Co- Management (If Applicable) Minimum frequency patient should be seen in person for medication management: As appropriate per clinical condition and patient status By my signature, I understand that my patient will have medication [facility]) per established policies, procedures, and protocols. I also certify that this referral may serve as an initiation of service for the management of drug therapy in the above noted patient. [facility] providers will be responsible for scheduling patient visits, obtaining appropriate laboratory studies, and adjusting medication management therapy per patient's need, in addition to those roles spelled out in the clinic policy, procedures, and drug management protocols. I understand that the service provided by the [facility] Clinic is voluntary and have informed patient that they can refuse the service at their discretion. I am aware that the [facility] Clinic will provide me with a copy of the patient encounter via my [employer] In-Basket. I authorize the [facility] to carryout these activities on my behalf. I consider this program to be a necessary part of the patient's medical care. BRYCE Rhodes documented in this encounter Plan of Treatment Upcoming Encounters Date Type Department Care Team (Late st Contact Info) Description 07/10/2024 2:40 PM EST Office Visit [facility] [address] [place] [address] Payal Myers MD [address] [place] [address] 07/14/2024 9:30 AM EST Office Visit Gastroenterology, [facility] [address] [place] [address] Starla Sheriff CRNP [address] [place] [address] 07/30/2024 2:30 PM EST Office Visit Rheumatology [address] [place] [address] Michelle Lima CRNP [address] [place] [address] 08/19/2024 9:00 AM EST Office Visit Nephrology, [facility] 200 [place] [address] Ant Cardona MD [address] [place] [address] 08/31/2024 8:20 AM EST Office Visit Family Practice [facility] [address] [place] [address] Payal Myers MD [address] [place] [address] 11/09/2024 3:20 PM EDT Office Visit Rheumatology [address] [place] [address] Neal Vang MD [address] [place] [address], [place] [address] Health Maintenance Due Date Last Done Comments [...] patient or by statute hierarchy) Care Teams Recreation Therapy Aides Teacher Relationship Specialty Start Date End Date Payal Myers MD [address] [place] [address] PCP - General Family Medicine 01/21/24 documented as of this encounter
--- OUTSIDE RECORDS SUMMARY | 2024-07-08 09:36 | External Medical Summary | Summary of Care ---
Author Name Unknown Organization [facility] Address [address] [place] [address] Phone [phone] Care Team Providers Care Sales Promotion Manager Name Role Phone Payal Myers MD Primary Care Provider [phone] Reason for Visit * Reason Onset Date Comments Referral 07/06/2024 PT and OT Appointment 07/06/2024 Encounter Details Date Type Department Care Team (Late st Contact Info) Description 07/06/2024 Telephone Family Practice [facility] [place] 200 [facility] [place] [address] Payal Myers MD 200 [place] [address] Referral (PT and OT ); Appointment Allergies Active Allergy Reactions Criticality Noted [...] 20 g 06/13/2024 2:46 PM EST Active Metoclopramide HCl 10 MG Oral Tablet (Reglan) Take 1 Tablet by mouth in the morning and 1 Tablet at noon and 1 Tablet in the evening and 1 Tablet before bedtime. Active Magnesium Oxide 400 MG Oral Tablet Take 1 Tablet by mouth in the morning. Active Sodium Chloride 1 GM Oral Tablet Take 1 Tablet by mouth in the morning. Active documented as of this encounter (statuses [...] encounter Miscellaneous Notes * Telephone Encounter - Shiloh Ying RN - 07/06/2024 10:05 AM EST Pt contacted for HD follow up with Dr Cardona on 07/17/24 at 1pm. * Telephone Encounter - Janelle Hodges OSA - 07/06/2024 8:48 AM EST Danitza from [facility] called needing a up to date referral for PT and OT fax over documented in this encounter Plan of Treatment Upcoming Encounters Date Type Department Care Team (Late st Contact Info) Description 07/10/2024 2:40 PM EST Office Visit [facility] [address] [place] [address] Payal Myers MD [address] [place] [address] 07/14/2024 9:30 AM EST Office Visit [facility]enterology, [facility] [place] [address] Starla Sheriff CRNP [address] [facility] [address] 07/30/2024 2:30 PM EST Office Visit Rheumatology [address] [place] [address] Michelle Goodwin CRNP [address] [place] [address] [place], [place] [address] 08/19/2024 9:00 AM EST Office Visit Nephrology, [facility] [address] [place] [address] Ant Cardona MD [address] [place], [place] [address] 08/31/2024 8:20 AM EST Office Visit [facility] [address] [place] [address] Payal Myers MD [address] [place] [address] 11/09/2024 3:20 PM EDT Office Visit Rheumatology [place] [address] [place] [address] Neal Vang MD [address] [place] [address] Health Maintenance Due Date Last Done Comments [...] patient or by statute hierarchy) Care Teams Sales Promotion Manager Relationship Specialty Start Date End Date Payal Myers MD [address] [place] [address] PCP - General Family Medicine 01/21/24 documented as of this encounter
--- OUTSIDE RECORDS SUMMARY | 2024-07-08 09:36 | External Medical Summary | Summary of Care ---
Author Name Unknown Organization [facility] Address [address] [place] [address] Phone [phone] Care Team Providers Care Activities Leader Name Role Phone Payal Myers MD Primary Care Provider [phone] Reason for Visit * Reason Onset Date Comments Referral 07/06/2024 PT and OT Appointment 07/06/2024 Encounter Details Date Type Department Care Team (Late st Contact Info) Description 07/06/2024 Telephone Family Practice [facility] [place] [address] [facility] [place] [address] Payal Myers MD 200 [place] [address] Referral (PT and OT ); Appointment Allergies [...] encounter Miscellaneous Notes * Telephone Encounter - Candelaria Guzman RN - 07/06/2024 11:19 AM EST Called [facility] home health gave verbal to continue home health. * Telephone Encounter - Shiloh Ying RN - 07/06/2024 10:05 AM EST Pt contacted for HD follow up with Dr Cardona on 07/17/24 at 1pm. * Telephone Encounter - Janelle Hodges OSA - 07/06/2024 8:48 AM EST Danitza from [facility] called needing a up to date referral for PT and OT fax over documented in this encounter Plan of Treatment Upcoming Encounters Date Type Department Care Team (Late st Contact Info) Description 07/10/2024 2:40 PM EST Office Visit [facility] [address] [facility] [place] [address] Payal Myers MD [address] [place] [address] 07/14/2024 9:30 AM EST Office Visit Gastroenterology, [facility] [address] [place] [address] Starla Sheriff CRNP [address] [place] [address] 07/30/2024 2:30 PM EST Office Visit Rheumatology [place] [address] [facility] [place] [address] Michelle Goodwin CRNP [address] [place] [place] [address] 08/19/2024 9:00 AM EST Office Visit Nephrology, [facility] [address] [place] [address] Ant Cardona MD [address] [place] [address] 08/31/2024 8:20 AM EST Office Visit [facility] [address] [place] [address] Payal Myers MD [address] [place] [address] 11/09/2024 3:20 PM EDT Office Visit Rheumatology [facility] [address] [place], [place] [address] Neal Vang MD [address] [place], [place] [address] Health Maintenance Due Date Last Done Comments [...] End Date Payal Myers MD [address] [place] [address] PCP - General Family Medicine 01/21/24 documented as of this encounter
--- OUTSIDE RECORDS SUMMARY | 2024-07-08 09:36 | External Medical Summary | Summary of Care ---
Author Name Unknown Organization [facility] Address [address] [facility] [place] [address] Phone [phone] Care Team Providers Care Shochet Name Role Phone Payal Myers MD Primary Care Provider [phone] Encounter Details Date Type Department Care Team (Late st Contact Info) Description 07/07/2024 Population Health External Data Unspecified Department Allergies Active Allergy Reactions Criticality Noted Date Comments Adalimumab High 05/20/2024 Other Reaction(s): Chills and hot flashes Sulfasalazine Rash Medium 10/23/2023 documented as of this encounter (statuses as of 07/07/2024) Medications 08/10 1-20 MG-MCG per tablet 1 [...] Tablet by mouth in the morning. Active Chriss-Citrate Plus Vitamin D 250-2.5 MG-MCG Oral Tablet (Calcium Citrate-Vitamin D) Take by mouth 2 times a day. Active Calcitriol 0.5 MCG Oral Capsule (Rocaltrol) Take 1 Capsule by mouth in the morning. 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 Iron deficiency 02/28/2024 LUDA (generalized anxiety disorder) 10/09/2023 Seronegative inflammatory arthritis 10/09/2023 documented as of this encounter (statuses as of 07/07/2024) Resolved Problems Problem Noted Date Diagnosed Date Resolved Date Ileus 06/08/2024 06/13/2024 Chest pain, non-cardiac 06/04/202405/23 Idiopathic acute pancreatitis 06/04/2024 06/13/2024 Gallstone pancreatitis 06/02/202406/13 documented as of this encounter (statuses as of 07/07/2024) Immunizations Name Administration Dates Next Due COVID-19 [...] 2:40 PM EST Office Visit Family Practice [facility] [place] [address] [place] [address] Payal Myers MD [address] [place] [address] 07/14/2024 9:30 AM EST Office Visit Gastroenterology, [facility] 132 [facility] [place] [address] Starla Sheriff CRNP [address] [place] [address] 07/30/2024 2:30 PM EST Office Visit Rheumatology [address] [place] [address] Michelle Goodwin CRNP [address] [place] [address] [place] [address] 08/19/2024 9:00 AM EST Office Visit Nephrology, [facility] 200 [facility] [place] [address] Ant Cardona MD 200 [place] [address] 08/31/2024 8:20 AM EST Office Visit Family Practice [facility] 200 [place] [address] Payal Myers MD 200 [place] [address] 11/09/2024 3:20 PM EDT Office Visit Rheumatology [address] [place] [address] Neal Vang MD [address] [place] [address], [place] [address] Health Maintenance Due Date Last Done Comments [...] patient or by statute hierarchy) Care Teams Shochet Relationship Specialty Start Date End Date Payal Myers MD 200 [place] [address] PCP - General Family Medicine 01/21/24 documented as of this encounter
--- OUTSIDE RECORDS SUMMARY | 2024-07-08 09:37 | External Medical Summary | Summary of Care ---
Author Name Unknown Organization [facility] Address [address] [facility] [address] Phone [phone] Care Team Providers Care Hydraulic Riveter Name Role Phone Payal Myers MD Primary Care Provider [phone] Encounter Details Date Type Department Care Team (Late st Contact Info) Description 07/05/2024 Telephone Gastroenterology, [facility] [address] [place] [address] Noreen Weller MD [address] [place] [address] Allergies Active Allergy Reactions Criticality Noted Date [...] encounter Miscellaneous Notes * Telephone Encounter - nUa Clemesn OSA - 07/06/2024 9:18 AM EST Lmm * Telephone Encounter - Noreen Weller MD - 07/05/2024 11:48 AM EST Currently admitted to [facility] with peripancreatic fluid collection after recent pancreatitis, please arrange office visit with a mid level in 2 weeks to order a follow up CT scan. documented in this encounter Plan of Treatment Upcoming Encounters Date Type Department Care Team (Late st Contact Info) Description 07/10/2024 2:40 PM EST Office Visit [facility] 200 [facility] [place] [address] Payal Myers MD 200 [place] [address] 07/30/2024 2:30 PM EST Office Visit Rheumatology [address] [place] [address] Michelle Goodwin CRNP [facility] [place] [place] [address] 08/19/2024 9:00 AM EST Office Visit Nephrology, [facility] 200 [place] [address] Ant Cardona MD 200 [place] [address] 08/31/2024 8:20 AM EST Office Visit [facility] 200 [place] [address] Payal Myers MD 200 [place] [address] 11/09/2024 3:20 PM EDT Office Visit Rheumatology [address] [place] [address] Neal Vang MD [address] [place] [address], [place] [address] Health Maintenance Due Date Last Done Comments [...] patient or by statute hierarchy) Care Teams Hydraulic Riveter Relationship Specialty Start Date End Date Payal Myers MD [address] [place] [address] PCP - General Family Medicine 01/21/24 documented as of this encounter
--- NOTE | 2024-07-08 11:22 | Hospitalist Progress Note ---
Date of Service July 08, 2024 Assessment & Plan (1) Hypomagnesemia: Plan: Patient is known to have persistent hypomagnesemia, she states that she has been taking her home regimen of magnesium supplement, after replacement, her magnesium improved to 2, I would increase that to magnesium oxide 800 mg twice daily. (2) Severe protein-calorie malnutrition: Plan: BMI is 17, patient is very cachectic, will consult dietitian. Patient may have underlying severe malnutrition due to malabsorption which is probably the reason she compensated by eating less. Will review if there is any further information about her being seen by gastroenterology or have done any studies in the past. I am very concerned that this patient may have underlying psychiatric component as well, so will await input from dietitian, psychiatric consultation can be done as inpatient or outpatient. (3) Hypothyroidism (acquired): Plan: Continue with Synthroid 88 mcg daily, TSH is elevated at 9 although the previous 1 about 4 days prior to this measurement was 3.4 only so I am not quite sure that this is the right number so I will not act upon it. Also she tells me that she has been only few weeks that started on Synthroid at this dose so I only recommend TSH to be rechecked at 1 month melinda. (4) Seronegative arthritis: Plan: Patient is being seen as outpatient and in the process of authorization to start Xeljanz. (5) Depression: Plan: Continue with Prozac 20 mg daily (6) Hypokalemia: Plan: Potassium is 3.2 and will be replaced. This is also due to malnutrition. (7) Elevated troponin: Plan: Patient is not complaining of any chest pain,EKG did not show any finding and there was no change comparing to previous studies. Most recent echocardiogram on 05/21/2024 showed normal ejection fraction without any wall motion abnormality or valvular abnormality and diastolic function of the left ventricle was also normal. This is not clinically significant. (8) Pancreatitis: Plan: This is not a new discovery, patient has some peripancreatic collection which showed no increase in size. This apparently has been followed up as outpatient. Lipase is 1000 up from 860 on 07/03/2024. Provide pain control, reach gastroenterology for any further recommendation. Plan At this time, even though her initial presentation was attributed to electrolyte abnormality of hypomagnesemia, low sodium and low potassium but I think the main issue with her is poor p.o. intake with questionable malnutrition on board. Allow dietitian to intervene and make recommendation, I may reach gastroenterology to see if they have any further recommendation. Psychiatric consultation is recommended. Admission and Anticipated Discharge Date Admission Date: July 08, 2024 Subjective Patient is a 29-year-old female with prior history of seronegative polyarthritis, depression, numerous admissions for electrolyte abnormalities who was admitted with the same presentation after she was recently discharged about several days prior to this admission. She had some facial muscle twitching and this was considered to be related to low magnesium, patient was treated for low magnesium, low potassium and she improved, magnesium was initially 1.3. She was found to have slightly elevated lipase of 1000 which is up from 860 before considering the presence of chronic pancreatitis with some loculation Which is being followed up as outpatient. Patient was seen and examined, she feels slightly better, she appears restless, will replace electrolytes, get input from gastroenterology. Physical Exam Physical Exam: VITALS: Reviewed. WEIGHT/BMI reviewed, malnourished and cachectic. NECK: Supple, with no masses. CV: RRR, no m/r/g. LUNGS: CTAB, no w/r/c. ABD: Soft, NT/ND, NBS, no masses or organomegaly. NEURO: Ambulating with no limitations. Normal muscle strength and tone. No focal deficits. Results & Data Results & Data Vital Signs (Past 12 Hours) Vital Signs Temp Pulse Pulse Resp BP BP Pulse Ox 07/08/24 09:32 108 H 07/08/24 07:46 36.3 C L 118 H 16 106/70 99 07/08/24 04:31 07/08/24 04:19 07/08/24 04:17 36.6 C 109 H 16 100/57 L 97 07/08/24 03:30 111 H 07/08/24 03:01 124 H 107/74 07/08/24 02:29 118 H 35 H 07/08/24 01:17 103 H 07/08/24 01:15 102 H 24 95/62 L 99 07/07/24 23:23 121 H 30 H 114/76 98 O2 Del Method 07/08/24 09:32 07/08/24 07:46 Room Air 07/08/24 04:31 Room Air 07/08/24 04:19 Room Air 07/08/24 04:17 Room Air 07/08/24 03:30 07/08/24 03:01 Room Air 07/08/24 02:29 07/08/24 01:17 07/08/24 01:15 07/07/24 23:23 Room Air Laboratory Results Laboratory Results - last 24 hr 07/07/24 07/07/24 07/08/24 19:09 22:41 05:54 WBC 4.25 L 2.84 L RBC 3.04 L 2.55 L Hgb 8.1 L 6.7 L* Hct 25.1 L 21.2 L MCV 82.6 83.1 MCH 26.6 26.3 MCHC 32.3 31.6 L RDW Std Deviation 47.8 H 48.1 H RDW Coeff of Jackie 15.9 H 15.8 H Plt Count 402 H 376 MPV 9.2 L 9.4 Immature Gran % (Auto) 1.2 1.4 Neut % (Auto) 88.2 85.5 Lymph % (Auto) 5.9 9.2 Blanco % (Auto) 4.7 3.9 Eos % (Auto) 0.0 0.0 Baso % (Auto) 0.0 0.0 Neut # (Auto) 3.75 2.43 Lymph # (Auto) 0.25 L 0.26 L Blanco # (Auto) 0.20 0.11 Eos # (Auto) 0.00 0.00 Baso # (Auto) 0.00 0.00 Immature Gran # (Auto) 0.05 0.04 Ovalocytes 1+ Sodium 130 L 132 L Potassium 3.9 3.2 L Chloride 94 L 98 Carbon Dioxide 30 28 Anion Gap 6 6 BUN 12 10 Creatinine 0.53 L 0.54 L Est Cr Clr Drug Dosing Not Reportable 113.6 eGFR 129.92 129.33 BUN/Creatinine Ratio 22.6 H 18.5 Glucose 105 H 94 Calcium 9.2 8.2 L Magnesium 1.3 L 2.0 Total Bilirubin 0.4 0.3 AST 68 H 51 H ALT 14 11 Alkaline Phosphatase 70 52 Troponin I High Sens 57.9 H* 47.9 H D Total Protein 6.3 5.1 L Albumin 3.0 L 2.3 L Globulin 3.3 2.8 Albumin/Globulin Ratio 0.9 0.8 L Lipase 1049 H TSH 9.163 H Free T4 1.07 Lyme Disease Screen Negative 07/08/24 09:04 WBC RBC Hgb 7.1 L Hct 22.2 L MCV MCH MCHC RDW Std Deviation RDW Coeff of Jackie Plt Count MPV Immature Gran % (Auto) Neut % (Auto) Lymph % (Auto) Blanco % (Auto) Eos % (Auto) Baso % (Auto) Neut # (Auto) Lymph # (Auto) Blanco # (Auto) Eos # (Auto) Baso # (Auto) Immature Gran # (Auto) Ovalocytes Sodium Potassium Chloride Carbon Dioxide Anion Gap BUN Creatinine Est Cr Clr Drug Dosing eGFR BUN/Creatinine Ratio Glucose Calcium Magnesium Total Bilirubin AST ALT Alkaline Phosphatase Troponin I High Sens Total Protein Albumin Globulin Albumin/Globulin Ratio Lipase TSH Free T4 Lyme Disease Screen Diagnostic Findings Abdomen/Pelvis CT 07/07/24 23:25 EXAM: CT abd pelvis IV con only CLINICAL HISTORY: Increasing lipase, tachy TECHNIQUE: CT of the abdomen and pelvis was performed with 93ml of Opitray-320mg/ml contrast, with the following protocol: axial images with, and reconstructed coronal and sagittal images. One of the following dose reduction techniques was utilized for this exam: Automated exposure control, adjustment of the mA and/or kV according to patient size, and use of iterative reconstruction. COMPARISON: Comparison is made with previous CT imaging study dated 07/03/2024. FINDINGS: Abdomen: Still noted is mild left-sided pleural effusion with passive subsegmental collapse of left lower lobe. Unchanged previously noted loculated fluid collection of Approximately [id number] mm size compared to 60 x 57 x 88 mm with mild peripheral enhancement is noted involving peripancreatic and intrapancreatic region in the gastrocolic space. Unchanged Mild thickening of distal body and tail of pancreas without obvious necrotic component. OBX.5.1OBX.5.1.1Still noted Mild inflammatory thickening is also noted involving adjacent large bowel loops. Diffuse adjacent omental thickening with nodularity /OBX.5.1.1OBX.5.1.2 fat stranding was also seen. /OBX.5.1.2/OBX.5.1 Liver: Enlarged in size (22,5 cm in right lobe span ), shape, and density. No focal lesions, cysts, or masses were identified. Hepatic vasculature and biliary ducts are unremarkable. Gallbladder and Biliary System: The gallbladder is normal in size and shape. No wall thickening, pericholecystic fluid, or gallstones were identified. The common bile duct is normal in caliber without dilation. Spleen: Normal in size, shape, and density. No splenic lesions or masses were identified. Kidneys and Adrenal Glands: Both kidneys are normal in size, shape, and position. Cortical thickness is within normal limits. No renal calculi or hydronephrosis. Adrenal glands are unremarkable with no evidence of masses or hyperplasia. Pelvis: Urinary Bladder: Normal in contour and wall thickness. No intraluminal lesions were identified. Uterus: Normal in size and contour. No masses or abnormal thickening. Ovaries: Not well visualized but no gross abnormalities were noted. Vagina: Normal in contour and wall thickness. Cervix: No evidence of mass or abnormal thickening. Peritoneal and Retroperitoneal Structures: Mild free pelvic ascites are also newly seen. Mildly enlarged reactionary retroperitoneal lymphadenopathy was noted. Bowel: The visualized bowel loops are normal in caliber and appearance. No evidence of bowel obstruction or wall thickening. Bones and Soft Tissues: Mild right side scoliosis seen. Pelvic bones and soft tissues are unremarkable. No fractures or abnormal masses were identified. IMPRESSION: OBX.5.1OBX.5.1.11. Unchanged size and appearance of the previously noted complicated pancreatitis with giovanny pancreatic /OBX.5.1.1OBX.5.1.2 gastric bed loculated fluid collection referring to acute peripancretic collection, follow up is advised./OBX.5.1.2/OBX.5.1 2. Hepatomegaly was seen. (stable). 3. Retroperitoneal mild lymphadenopathy noted. (stable ). 4. Newly noted mild free pelvic ascites. 5. Still noted mild left-side pleural effusion. Electronically signed by Ginger Bar 07-08-2024 01:50 AM Chest X-Ray 07/08/24 01:25 EXAM: XR chest 1V portable CLINICAL HISTORY: HYPONATREMIA TECHNIQUE: An X-ray image of the chest is obtained in AP projection. COMPARISON: CT: 07/03/2024 FINDINGS: Pulmonary Parenchyma: No definite lung consolidation or masses. Subtle blunting of the left costophrenic angle. Clear right costophrenic angle. Heart and Mediastinum: Heart size and shape are normal. No mediastinal widening or masses. Bony Thorax: The bony thorax appears intact without fractures or deformities. Soft Tissues: Soft tissues overlying the chest wall are unremarkable. IMPRESSION: 1. Subtle blunting of the left costophrenic angle, indicating mild pleural effusion/thickening. (Stable) 2. No consolidation or cavitation was seen. Electronically signed by Ginger Bar 07-08-2024 03:31 AM Medications Administered Current Inpatient Medications Acetaminophen (Acetaminophen 500 Mg Tab) 500 mg PO Q6H PRN PRN Reason: fever/pain Stop: 08/07/24 02:02 Calcitriol (Calcitriol 0.25 Mcg Capsule) 0.5 mcg PO DAILY ABBY Stop: 08/07/24 08:59 Last Admin: 07/08/24 08:11 Dose: 0.5 mcg Calcium/Vitamin D (Calcium 600mg + Vit D 400 Iu Tab) 1 tab PO BID ABBY Stop: 08/07/24 08:59 Last Admin: 07/08/24 08:12 Dose: 1 tab Cyanocobalamin (Cyanocobalamin (B-12) 500 Mcg Tablet) 1,000 mcg PO QAM ABBY Stop: 08/07/24 08:59 Last Admin: 07/08/24 08:13 Dose: 1,000 mcg Ergocalciferol (Ergocalciferol 1250 Mcg (50,000 Units) Cap) 1,250 mcg PO Q7D@0900 ABBY Stop: 08/07/24 08:59 Last Admin: 07/08/24 08:12 Dose: 1,250 mcg Fenofibrate (Fenofibrate Nanocrystallized 145 Mg Tablet) 145 mg PO QAM ABBY Stop: 08/07/24 08:59 Last Admin: 07/08/24 08:12 Dose: 145 mg Ferrous Sulfate (Ferrous Sulfate 325 Mg Tab) 325 mg PO Q48H ABBY Stop: 08/07/24 08:59 Last Admin: 07/08/24 08:12 Dose: 325 mg Fluoxetine HCl (Fluoxetine Hcl 20 Mg Cap) 20 mg PO QAM ABBY Stop: 08/07/24 08:59 Last Admin: 07/08/24 08:11 Dose: 20 mg Heparin Sodium (Porcine) (Heparin Sod 5,000 Unit/0.5 Ml Vial) 5,000 units SQ Q8 ABBY Stop: 08/07/24 05:59 Last Admin: 07/08/24 06:07 Dose: 5,000 units Promethazine HCl (Phenergan) 6.25 mg in 50.25 mls @ 201 mls/hr IV Q6H PRN PRN Reason: Nausea And Vomiting Stop: 08/07/24 02:00 Potassium Chloride/Sodium Chloride (Normal Saline W/20 Meq Kcl) 20 meq in 1,000 mls @ 75 mls/hr IV .[id number] ONE Stop: 07/08/24 15:22 Last Admin: 07/08/24 04:52 Dose: 75 mls/hr Levothyroxine Sodium (Levothyroxine Sodium 88 Mcg Tablet) 88 mcg PO DAILYBB ABBY Stop: 08/07/24 06:29 Last Admin: 07/08/24 06:07 Dose: 88 mcg Lorazepam (Lorazepam 0.5 Mg Tab) 0.25 mg PO TID PRN PRN Reason: Anxiety Stop: 08/07/24 02:01 Magnesium Oxide (Magnesium Oxide 400 Mg Tab) 800 mg PO BID ABBY Stop: 08/07/24 20:59 Pantoprazole Sodium (Pantoprazole 40 Mg Tab) 40 mg PO QAM ABBY Stop: 08/07/24 08:59 Last Admin: 07/08/24 08:12 Dose: 40 mg Potassium Chloride (Potassium Chloride Crtab 20 Meq Tabcr) 40 meq PO DAILY ABBY Stop: 08/07/24 11:29 Sodium Chloride (Sodium Chloride 1 Gm Tablet) 1 gm PO DAILY ABBY Stop: 08/07/24 08:59 Last Admin: 07/08/24 08:12 Dose: 1 gm (5) Depression Depression Type: other depression Qualified Code(s): F32.89 - Other specified depressive episodes (8) Pancreatitis Chronicity: chronic Pancreatitis type: other Qualified Code(s): K86.1 - Other chronic pancreatitis
[2024-07-08] MEDS: POTASSIUM CHLORIDE CRTAB 20 MEQ TABCR PO SCH (11:43)
[2024-07-08] MEDS: LORazepam 0.5 MG TAB PO PRN (16:25)
[2024-07-08] MEDS: MEGESTROL ACETATE SUSP 400 MG/10 ML UDC PO SCH (21:00)
[2024-07-09] MEDS: SODIUM CHLORIDE 0.9% 500 ML IV ONE (03:18)
--- NOTE | 2024-07-09 06:23 | Electrocardiogram Report ---
Test Reason : Blood Pressure : */* mmHG Vent. Rate : 119 BPM Atrial Rate : 119 BPM P-R Int : 118 ms QRS Dur : 78 ms QT Int : 306 ms P-R-T Axes : 56 75 53 degrees QTcB Int : 430 ms Sinus tachycardia Otherwise normal ECG When compared with ECG of 03-Jul-2024 17:06, No significant change was found Confirmed by Giuseppe Patel ([id number]) on 07/09/2024 6:23:08 AM Referred By: REFERRED SELF Confirmed By: Giuseppe Patel
[2024-07-09 08:23] LABS: Bilirubin,Total 0.3 mg/dl (0.2-1.0); Calcium 7.8 mg/dl (8.6-10.3); Magnesium 1.5 mg/dl (1.7-2.4); Potassium 3.8 mmol/L (3.5-5.1)
[2024-07-09 08:30] LABS: BUN Creatinine Ratio 27.3 (10-20); Creatinine Clr Calc Pharmacy 204.6 ml/min
[2024-07-09 08:43] LABS: Thyroid Stimulating Hormone 8.551 uIu/ml (0.300-4.500)
[2024-07-09 08:53] LABS: Albumin Globulin Ratio 0.8 (0.9-2); Globulin 2.6 gm/dl (2.5-4.0); Total Protein 4.6 gm/dl (6.0-8.3)
[2024-07-09] MEDS: MAGNESIUM SULFATE / D5W 1 GM/100 ML BAG IV ONE (09:30)
--- NOTE | 2024-07-09 10:20 | Discharge Summary ---
Discharge Summary Date of Service July 09, 2024 Principal Dx & Hospital Course #1 = Principal Diagnosis (1) Hypomagnesemia: (2) Severe protein-calorie malnutrition: (3) Hypothyroidism (acquired): (4) Seronegative arthritis: (5) Depression: (6) Hypokalemia: (7) Elevated troponin: (8) Pancreatitis: Notes For Next Care Provider Medication Changes From Visit Increasing magnesium oxide to 800 mg twice daily Starting K dur 40 mEq daily Starting Megace 400 mg twice daily suspension Admission HPI Per Admitting Provider Patient is a 29-year-old female with prior history of seronegative polyarthritis, depression, numerous admissions for electrolyte abnormalities who was admitted with the same presentation after she was recently discharged about several days prior to this admission. She had some facial muscle twitching and this was considered to be related to low magnesium, patient was treated for low magnesium, low potassium and she improved, magnesium was initially 1.3. She was found to have slightly elevated lipase of 1000 which is up from 860 before considering the presence of chronic pancreatitis with some loculation Which is being followed up as outpatient. Patient was monitored and electrolytes were replaced, magnesium oxide was increased to 800 mg twice daily on which again she showed some subtle deficiency today magnesium of 1.5 which was again replaced with 1 g of magnesium sulfate. I started patient on potassium K-dur 40 mEq and I intend to continue this as well. I was concerned about her psychiatric issue and the fact that she did not have a recent psychiatric visit so I asked our psychiatry to see her, patient was cleared to be followed up as outpatient with no issue of acute nature during this visit. Patient is planned to be placed on magnesium oxide 800 mg twice daily along with potassium 40 mEq daily and addition of Megace 400 mg twice daily of suspension to boost her appetite. Patient will be then discharged home. Updated Medication List Medication Instructions Recorded Confirmed Type fluoxetine 20 mg capsule 20 mg PO QAM 04/01/24 07/08/24 History ferrous sulfate 325 mg (65 mg 325 mg PO Q2D 05/20/24 07/08/24 History iron) tablet cyanocobalamin (vitamin B-12) 500 1,000 mcg (2 x 500 mcg) PO QAM #30 05/23/24 07/08/24 Rx mcg tablet tabs fenofibrate 160 mg tablet 160 mg PO QAM 07/03/24 07/08/24 History hydrocortisone 2.5 % topical cream 1 applic topical DIRECTED 07/03/24 07/08/24 History levothyroxine 88 mcg tablet 88 mcg PO QAM 07/03/24 07/08/24 History omeprazole 20 mg capsule,delayed 20 mg PO QAM 07/03/24 07/08/24 History release calcitriol 0.5 mcg capsule 0.5 mcg PO DAILY #30 caps 07/05/24 07/08/24 Rx calcium 250 mg 1 tab PO BID #60 tabs 07/05/24 07/08/24 Rx (citrate)-ergocalciferol (D2) 2.5 mcg (100 unit) tablet (Chriss-Citrate) ergocalciferol (vitamin D2) 1,250 50,000 unit PO .weekly #20 caps 07/05/24 07/08/24 Rx mcg (50,000 unit) capsule ondansetron 4 mg disintegrating 4 mg PO Q6H PRN nausea and 07/05/24 07/08/24 Rx tablet vomiting #20 tabs sodium chloride 1,000 mg soluble 1,000 mg PO DAILY #30 tabs 07/05/24 07/08/24 Rx tablet magnesium oxide 800 mg (2 x 400 mg magnesium) PO 07/09/24 Rx BID 30 days #120 tabs megestrol 400 mg/10 mL (40 mg/mL) 400 mg (10 mL) PO BID 30 days #600 07/09/24 Rx oral suspension mL potassium chloride 20 mEq oral 40 meq PO DAILY 30 days #30 ea 07/09/24 Rx packet Hospital Stay Data Consultations 07/08/24 01:53 ED Decision to Admit Stat 07/09/24 07:05 Consult Behavioral Health Liaison Routine Diagnostic Imagining Performed 07/07/24 23:25 CT abd pelvis IV con only Stat Pending Results Patient Have Any Pending Studies at Discharge: No Discharge Instructions Given to Patient (Per Discharging Provider) Patient to follow-up with her psychiatry and continue with home medications Total Time Total Time Spent Total Time Spent (In Minutes): More than 35 minutes
[2024-07-09 11:25] VITALS: BP 97/68; PULSE 111; RESP 20; TEMP 99; O2SAT 99
[2024-07-09] MEDS: LOPERAMIDE HCL 2 MG CAP PO STA (12:58)
== END 2024-07-09 13:05 | disposition home or self-care (01) | DRG 640 ==
LOC: ED 18:26 → EDINP 07-08 02:01 → 2S 07-08 03:01 → 2N 07-08 18:29

== ENCOUNTER 2024-11-09 14:35 | Inpatient (IN) ==
--- NOTE | 2024-11-09 14:50 | Emergency Department Note ---
Impression & Plan Autoimmune pancreatitis, Sinus tachycardia, Protein-calorie malnutrition, Hypomagnesemia, Elevated troponin ED Provider Note NAME: ANN VALERO AGE: 29 SEX: F : 1995 ARRIVES VIA: Walk-In INFORMANT: Patient ED PROVIDER(S): Kervin Alexander MD CHIEF COMPLAINT: Weakness, abdominal pain, nausea, referred. PLAN: Disposition: Admit MEDICAL DECISION MAKING: The patient is a pleasant 29-year-old woman with a past medical history of autoimmune pancreatitis history of seronegative polyarthritis, depression, numerous admissions for electrolyte abnormalities who presents to the emergency department via walk-in accompanied by her mother for evaluation of ongoing generalized weakness and shortness of breath where she was seen by her [facility] GI office and refer the emergency department due to worsening symptoms. Patient understands she had blood work performed that did not show any significant changes. Patient and mother report that she has been declining over the past 1- 2 weeks with poor oral intake ongoing abdominal pain with nausea. She reports having constipation. She reports some urinary urgency but denies any burning. She denies any fevers. She denies chest pain. EKG demonstrates sinus tachycardia without overt acute ischemia. Chest x-ray negative for acute cardiopulmonary process. WBC 3.4K with no neutrophilia but slight left shift. H/H similar to prior values. Platelets within normal limits. Chemistry without metabolic acidosis. Creatinine is 1.26, consistent with mild PAMELA. The patient's calcium is elevated with ionized calcium of 1.6 and serum calcium 11.4 which corrects to 12.4 given hypoalbuminemia of 2.6. Magnesium 1.3 with IV repletion initiated. AST is 228 with LFTs otherwise normal. High-sensitivity troponin is 1000, nonspecific and suspected to be related to persistent tachycardia. Limited bedside cardiac ultrasound was performed and demonstrated no overt pericardial effusion or gross wall motion abnormality at this time. BNP is not elevated. Lipase is 677 decreased from June though unclear if this is uptrending or downtrending at this time. Procalcitonin is not elevated. TSH is elevated at 10.0 however free T4 within normal limits. hCG negative. CTA of the chest was performed and was negative for PE though suggestion of mild pulmonary edema. CT of the abdomen pelvis demonstrates interval improvement in prior pancreatitis in June. Evidence of gastritis is also described. Mild ascites is present. Patient was treated with IV fluid hydration with 2 L of normal saline with stabilization of blood pressure with maps 65 and greater. Heart rate was also downtrending. Findings reviewed with the patient and her mother at the bedside. They do agree with plan for admission for further management. [facility] who will evaluate the patient for admission. Further management per admitting team. Triage Nursing notes reviewed and agree them. Prior/external medical records reviewed Vital Signs: reviewed Differential diagnosis: Infection, dehydration, metabolic abnormality, hypo/hyperglycemia, electrolyte disturbance, anemia, hypoxia, cardiac sources, intracerebral event, toxicologic, neurologic, as well as other pathologies. ER treatment provided: See below. Diagnostics interpreted by me: ECG: Sinus tachycardia, 133 bpm, no ectopy, no overt ST ovation or depression, QTc 410, QRS 68. Cardiac Monitoring: An order for continuous cardiac monitoring was placed and demonstrated sinus tachycardia, 133 bpm, no ectopy. Laboratory studies: See below Imaging studies: See below Consultation(s): [facility] HPI: Per MDM. ROS: See above HPI for pertinent positives & negatives. A total of 10 systems reviewed and were otherwise negative. VITALS:See Below PHYSICAL EXAMINATION: GENERAL: Awake, alert, chronically-appearing, in no distress, cachectic. HENT: Normocephalic, atraumatic. Oropharynx with dry mucous membranes and otherwise unremarkable. EYES: Normal conjunctiva. Sclera non-icteric. EOMI. No nystamgus. PEARRL. NECK: Supple. No nuchal rigidity. FROM. No JVD. RESPIRATORY: Clear to auscultation. CARDIAC: Tachycardic rate, normal rhythm. Extremities warm and well perfused. Pulses equal. ABDOMEN: Soft, non-distended. Mild epigastric tenderness to palpation. No rebound or guarding. MUSCULOSKELETAL: Chest examination reveals no tenderness. The back is symmetrical on inspection without obvious abnormality. There is no CVA tenderness to palpation. No joint edema. LOWER EXTREMITIES: Calves are equal size bilaterally and non-tender. No edema. No discoloration. NEURO: Cranial nerves II-XII grossly intact. 5/5 strength and SILT x 4 extremities. SKIN: No rash or jaundice noted. ED COURSE: Critical Care: I have personally spent greater than 35 minutes of critical care time in the direct management of this patient. This includes bedside care, interpretation of diagnostic studies, and testing, discussion with consultants, patient, and family members, and other required patient management activities. This 35 minutes is in excess of all separately billable procedures. 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 Migraine Leukocytopenia Seronegative polyarthritis (Acute) Anemia Sinus tachycardia Arthralgia Anxiety Medical History GERD (gastroesophageal reflux disease) History of pleural effusion Undifferentiated inflammatory polyarthritis Malnutrition Macrophage activation syndrome History of electrolyte imbalance 2023 History of sinus tachycardia denies issues, feels due to recent hospitalization, reaction to medication Migraines Anemia Seronegative polyarthritis Still's disease of adult diagnosed then told not sure if she does have Still's disease, follows with Dr Malcolm 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 Depression Anxiety Surgical History History of wisdom tooth extraction History of lymph node biopsy Family History Grandfather (Paternal) Myocardial infarction Father Myocardial infarction Family/Other Diabetes cousin Grandmother (Maternal) Pancreatoblastoma Social History Smoking Status: Never smoker Second Hand Exposure: No; Do You Dip or Chew Tobacco: No; Hx Alcohol Use: No Hx Substance Use: No Preferred Language: Korean Communication Ability: Effective Editor Book Required: No Beliefs That Will Affect Care: None Current Living Situation: Family Current Living Situation Comment: Lives with mom Feels Safe at Home: Yes Assistive Devices: Glasses Allergies Allergies Allergy/AdvReac Type Severity Reaction Status Date / Time adalimumab-atto Allergy Severe Chills and Verified 08/31/24 06:01 [From Amjevita(CF)] hot flashes sulfasalazine Allergy Severe Unknown Verified 08/31/24 06:01 Skin Reaction metoclopramide [From Reglan] AdvReac Intermediate facial Verified 08/31/24 06:01 twitch Home Meds Home Medications Medication Instructions Recorded Confirmed ferrous sulfate 325 mg (65 mg 325 mg PO DAILY 05/20/24 11/09/24 iron) tablet fenofibrate 160 mg tablet 145 mg PO QAM 07/03/24 11/09/24 omeprazole 20 mg capsule,delayed 20 mg PO QAM 07/03/24 08/31/24 release cyanocobalamin (vitamin B-12) 500 500 mcg PO QAM 11/09/24 11/09/24 mcg tablet Previous Rx's Medication Instructions Recorded ondansetron 4 mg disintegrating 4 mg PO Q6H PRN nausea and 07/05/24 tablet vomiting #20 tabs Results & Data (ED) Vital Signs Vital Signs - 24 hr 11/09/24 14:36 11/09/24 15:23 11/09/24 15:23 Temperature 37.3 C Temperature Source Temporal Artery Scan Pulse Rate 143 H 116 H Pulse Rate [Apical] 113 H Pulse Rhythm Regular Pulse Rhythm [Apical] Regular Pulse Strength Normal Respiratory Rate 14 16 18 Respiratory Effort / Characteristics Non-Labored Spontaneous Non-Labored Spontaneous Respiratory Depth Normal Normal Respiratory Pattern Regular Regular Blood Pressure 84/51 L Blood Pressure [Right Arm] 82/52 L Blood Pressure Mean 62 Blood Pressure Mean [Right Arm] 62 Blood Pressure Position Sitting Pulse Oximetry 98 96 96 Oxygen Delivery Method Room Air Room Air Room Air Oxygen Flow Rate Sepsis Recent Fever Within 48 Hours No Sepsis New/Unexplained Change in Mental Status No Sepsis Action Taken by Nursing Physician Notified Oxygen Flow Rate - Titration Pulse Oximetry Post Tiitration 11/09/24 15:24 11/09/24 15:30 11/09/24 15:42 Temperature Temperature Source Pulse Rate 117 H 114 H Pulse Rate [Apical] Pulse Rhythm Pulse Rhythm [Apical] Pulse Strength Respiratory Rate 18 Respiratory Effort / Characteristics Respiratory Depth Respiratory Pattern Blood Pressure 86/51 L Blood Pressure [Right Arm] Blood Pressure Mean 56 Blood Pressure Mean [Right Arm] Blood Pressure Position Pulse Oximetry 98 Oxygen Delivery Method Room Air Oxygen Flow Rate Sepsis Recent Fever Within 48 Hours Sepsis New/Unexplained Change in Mental Status Sepsis Action Taken by Nursing Oxygen Flow Rate - Titration Pulse Oximetry Post Tiitration 11/09/24 16:00 11/09/24 16:15 11/09/24 16:18 Temperature Temperature Source Pulse Rate 110 H 114 H Pulse Rate [Apical] 111 H Pulse Rhythm Pulse Rhythm [Apical] Pulse Strength Respiratory Rate 25 H 22 24 Respiratory Effort / Characteristics Non-Labored Spontaneous Respiratory Depth Normal Respiratory Pattern Regular Blood Pressure 84/55 L Blood Pressure [Right Arm] 86/53 L Blood Pressure Mean 64 Blood Pressure Mean [Right Arm] 64 Blood Pressure Position Pulse Oximetry 96 96 Oxygen Delivery Method Room Air Room Air Oxygen Flow Rate Sepsis Recent Fever Within 48 Hours Sepsis New/Unexplained Change in Mental Status Sepsis Action Taken by Nursing Oxygen Flow Rate - Titration Pulse Oximetry Post Tiitration 11/09/24 16:30 11/09/24 17:00 11/09/24 17:00 Temperature Temperature Source Pulse Rate 111 H Pulse Rate [Apical] Pulse Rhythm Pulse Rhythm [Apical] Pulse Strength Respiratory Rate 24 Respiratory Effort / Characteristics Respiratory Depth Respiratory Pattern Blood Pressure 91/55 L 91/62 L Blood Pressure [Right Arm] Blood Pressure Mean 64 71 Blood Pressure Mean [Right Arm] Blood Pressure Position Pulse Oximetry Oxygen Delivery Method Oxygen Flow Rate Sepsis Recent Fever Within 48 Hours Sepsis New/Unexplained Change in Mental Status Sepsis Action Taken by Nursing Oxygen Flow Rate - Titration Pulse Oximetry Post Tiitration 11/09/24 17:00 11/09/24 17:11 11/09/24 17:12 Temperature Temperature Source Pulse Rate 112 H Pulse Rate [Apical] Pulse Rhythm Pulse Rhythm [Apical] Pulse Strength Respiratory Rate 21 Respiratory Effort / Characteristics Respiratory Depth Respiratory Pattern Blood Pressure 91/62 L Blood Pressure [Right Arm] Blood Pressure Mean 71 Blood Pressure Mean [Right Arm] Blood Pressure Position Pulse Oximetry 88 L 95 Oxygen Delivery Method Nasal Cannula Nasal Cannula Oxygen Flow Rate 0 2 Sepsis Recent Fever Within 48 Hours Sepsis New/Unexplained Change in Mental Status Sepsis Action Taken by Nursing Oxygen Flow Rate - Titration 2 Pulse Oximetry Post Tiitration 94 11/09/24 17:30 11/09/24 17:33 11/09/24 17:36 Temperature Temperature Source Pulse Rate 113 H Pulse Rate [Apical] Pulse Rhythm Pulse Rhythm [Apical] Pulse Strength Respiratory Rate Respiratory Effort / Characteristics Respiratory Depth Respiratory Pattern Blood Pressure 95/62 L 94/66 L Blood Pressure [Right Arm] Blood Pressure Mean 71 69 Blood Pressure Mean [Right Arm] Blood Pressure Position Pulse Oximetry 90 Oxygen Delivery Method Nasal Cannula Oxygen Flow Rate 2 Sepsis Recent Fever Within 48 Hours Sepsis New/Unexplained Change in Mental Status Sepsis Action Taken by Nursing Oxygen Flow Rate - Titration Pulse Oximetry Post Tiitration 11/09/24 18:00 Temperature Temperature Source Pulse Rate 120 H Pulse Rate [Apical] Pulse Rhythm Pulse Rhythm [Apical] Pulse Strength Respiratory Rate Respiratory Effort / Characteristics Respiratory Depth Respiratory Pattern Blood Pressure 86/56 L Blood Pressure [Right Arm] Blood Pressure Mean 66 Blood Pressure Mean [Right Arm] Blood Pressure Position Pulse Oximetry 90 Oxygen Delivery Method Nasal Cannula Oxygen Flow Rate 2 Sepsis Recent Fever Within 48 Hours Sepsis New/Unexplained Change in Mental Status Sepsis Action Taken by Nursing Oxygen Flow Rate - Titration Pulse Oximetry Post Tiitration Laboratory Data Attestation: I reviewed the patient's lab results. 11/09/24 15:00 11/09/24 15:00 Lab Results 11/09/24 11/09/24 11/09/24 Range/Units 15:00 15:06 16:27 WBC 3.47 L (4.8-10.8) K/ul RBC 3.62 L (4.20-5.40) M/uL Hgb 8.9 L (12.0-16.0) g/dl POC Hgb 9.2 L (12.0-16.0) g/dl Hct 28.3 L (37.0-47.0) % POC Hct 27 L (37-47) % MCV 78.2 L (80.0-100.0) fL MCH 24.6 L (25.0-34.0) pg MCHC 31.4 L (32.0-36.0) g/dL RDW Std Deviation 46.3 (36.4-46.3) fL RDW Coeff of Jackie 16.3 H (11.5-14.5) % Plt Count 278 (130-400) K/uL MPV 10.3 (9.4-12.4) fL Immature Gran % (Auto) 6.9 % Neut % (Auto) 86.5 % Lymph % (Auto) 3.7 % Deuel % (Auto) 2.6 % Eos % (Auto) 0.0 % Baso % (Auto) 0.3 % Neut # (Auto) 3.00 (1.40-6.50) K/uL Lymph # (Auto) 0.13 L (1.20-3.40) K/uL Deuel # (Auto) 0.09 L (0.11-0.59) K/uL Eos # (Auto) 0.00 (0.00-0.50) K/uL Baso # (Auto) 0.01 (0.00-0.20) K/uL Immature Gran # (Auto) 0.24 H (0.01-0.20) K/uL PT 12.6 H (9.0-12.0) Seconds INR 1.2 H (0.9-1.1) POC Sodium 137 (135-144) mmol/L Sodium 135 L (136-145) mmol/L POC Potassium 4.6 (3.3-5.0) mmol/L Potassium 4.6 (3.5-5.1) mmol/L POC Chloride 103 (101-112) mmol/L Chloride 102 (98-107) mmol/L Carbon Dioxide 33 H (21-32) mmol/L POC Total CO2 27 (24-31) mmol/L Anion Gap 0 L (3-11) POC Anion Gap 13.0 L (16-25) mmol/L POC BUN 39 H (7-18) mg/dl BUN 36 H (6-23) mg/dl Creatinine 1.26 H (0.6-1.2) mg/dl POC Creatinine 1.5 H (0.6-1.3) mg/dl Est Cr Clr Drug Dosing 50.1 ml/min eGFR 60.01 BUN/Creatinine Ratio 28.6 H (10-20) Glucose 92 (70-99(Fasting)) mg/dl POC Glucose (other) 94 (70-99) mg/dl Calcium 11.4 H (8.6-10.3) mg/dl POC Ioniz Calcium Jared 1.60 H* (1.12-1.32) mmol/l Phosphorus 3.1 (2.5-4.9) mg/dl Magnesium 1.3 L (1.7-2.4) mg/dl Total Bilirubin 0.3 (0.2-1.0) mg/dl Direct Bilirubin 0.0 (0-0.2) mg/dl AST 228 H (13-39) U/L ALT 40 (7-52) U/L Alkaline Phosphatase 38 (34-104) U/L Troponin I High Sens 1022.4 H* 1000.5 H* (0-14) pg/ml B-Natriuretic Peptide 52 (0-100) pg/ml Total Protein 7.0 (6.0-8.3) gm/dl Albumin 2.6 L (3.4-5.0) gm/dl Globulin 4.4 H (2.5-4.0) gm/dl Albumin/Globulin Ratio 0.6 L (0.9-2) Lipase 677 H (11-82) U/L Procalcitonin 0.34 (0-0.5) ng/ml TSH 10.069 H (0.300-4.500) uIu/ml Free T4 0.63 (0.61-1.60) ng/dl HCG, Qual Negative (Negative) Random Cortisol 16.14 mcg/dl Administered Medications Discontinued Medications Calcitonin Sarah (Calcitonin Sarah 400 Units/2 Ml) 190 units SQ NOW STA Stop: 11/09/24 17:54 Last Admin: 11/09/24 18:51 Dose: 190 units Documented By: NADEGE Fentanyl Citrate (Fentanyl Citrate Pf 100 Mcg/2 Ml Vial) 50 mcg IV NOW STA Stop: 11/09/24 17:54 Last Admin: 11/09/24 18:07 Dose: 50 mcg Documented By: MARLEY Sodium Chloride (Nss) 1,000 mls @ 999 mls/hr IV .Q1H1M ABBY Stop: 11/09/24 17:00 Last Infusion: 11/09/24 17:26 Dose: Infused Documented By: Admin: 11/09/24 16:30 Dose: 999 mls/hr Documented By: Infusion: 11/09/24 16:29 Dose: Infused Documented By: [facility] Admin: 11/09/24 15:28 Dose: 999 mls/hr Documented By: NADEGE Magnesium Sulfate/Dextrose (Magnesium Sulfate / D5w) 1 gm in 100 mls @ 200 mls/hr IV Q30M ABBY Stop: 11/09/24 17:15 Last Infusion: 11/09/24 17:59 Dose: Infused Documented By: Admin: 11/09/24 17:26 Dose: 200 mls/hr Documented By: Infusion: 11/09/24 16:52 Dose: Infused Documented By: Admin: 11/09/24 16:22 Dose: 200 mls/hr Documented By: NADEGE Albumin Human (Albumin 25%) 12.5 gm in 50 mls @ 50 mls/hr IV ONE ONE Stop: 11/09/24 20:55 Last Infusion: 11/09/24 21:14 Dose: Infused Documented By: Admin: 11/09/24 20:19 Dose: 50 mls/hr Documented By: SAVANAH Sodium Chloride (Nss) 1,000 mls @ 60 mls/hr IV .[id number] ABBY Stop: 11/10/24 20:14 Last Admin: 11/09/24 20:20 Dose: 60 mls/hr Documented By: SAVANAH Magnesium Sulfate/Dextrose (Magnesium Sulfate / D5w) 1 gm in 100 mls @ 50 mls/hr IV ONE ONE Stop: 11/09/24 23:08 Last Admin: 11/09/24 22:10 Dose: 50 mls/hr Documented By: DIAN Sodium Chloride (Nss) 1,000 mls @ 125 mls/hr IV .Q8H ABBY Stop: 11/10/24 21:59 Last Admin: 11/09/24 22:27 Dose: 125 mls/hr Documented By: DIAN Ioversol (Optiray 320 125ml) 119 ml IV ONCE ONE Stop: 11/09/24 16:50 Last Admin: 11/09/24 16:49 Dose: 119 ml Documented By: SYD Morphine Sulfate (Morphine Sulfate 2 Mg/Ml Carp) 1 mg IV NOW STA Stop: 11/09/24 19:31 Last Admin: 11/09/24 19:36 Dose: Not Given Documented By: NADEGE Morphine Sulfate (Morphine Sulfate 2 Mg/Ml Carp) Confirm Administered Dose 2 mg .ROUTE .STK-MED ONE Stop: 11/09/24 19:34 Last Admin: 11/09/24 19:35 Dose: 1 mg Documented By: NADEGE Imaging Data Radiologist's Impression: Chest X-Ray 11/09/24 14:47 XR chest 1V portable CLINICAL HISTORY: history of seronegative polyarthritis, depression, COMPARISON STUDY: 08/31/2024 FINDINGS: Heart size and pulmonary vasculature are normal. No effusion, consolidation, or pneumothorax. IMPRESSION: No acute findings. ACT 112: Negative or not required by law. Electronically signed by: Salvador Woods M.D. 11/09/2024 3:20 PM Abdomen/Pelvis CT 11/09/24 16:14 Clinical History: Abdominal pain and nausea. Pancreatitis Technique: Axial computed tomography images were obtained of the abdomen and pelvis after the administration of intravenous contrast. Comparison is made to the prior CT dated 07/07/2024. Findings: The liver is overall of normal size, attenuation, and contour with no sign of cirrhosis or significant fatty infiltration. No liver mass lesion is seen. The portal vein is patent. The gallbladder has been removed. No bile duct dilatation is noted. The spleen is of normal size. No focal splenic lesion is evident. There has been near complete resolution of the previously seen fluid around the pancreas with a small amount of fluid remaining adjacent to the pancreatic tail. No clear discrete abscess or pseudocyst is seen The pancreatic duct is of normal caliber. The adrenal glands appear unremarkable. No definite renal or proximal ureteral calculi are seen on this contrast-enhanced study. There is no hydronephrosis or perinephric stranding. No renal mass lesion is identified. There is a small 8 mm cyst in the inferior right kidney and there is a 1 cm cyst in the mid right kidney. The aorta is of normal caliber. There are small subcentimeter retroperitoneal para-aortic lymph nodes. No overt abdominal adenopathy is seen. There is suspected mild wall thickening of the gastric antrum. There is no sign of small bowel obstruction. There is mild constipation. There is no sign of appendicitis. No free intraperitoneal air is identified. There is a minimal amount of ascites. No distal ureteral or bladder calculi are seen. No bladder mass lesion is evident. The iliac arteries are of normal caliber. There are mild prominent iliac chain lymph nodes, measuring up to 9 mm in short axis No overt pelvic adenopathy is noted. No fracture is identified. No focal osseous lesion is seen Impression: 1. Near complete resolution of the previously seen pancreatitis, with a small amount of fluid remaining adjacent to the pancreatic tail 2. Possible mild wall thickening of the gastric antrum, which could be due to secondary edema from the adjacent pancreatitis. Inflammatory or other gastritis cannot be excluded 3. Small right renal cysts 4. Constipation 5. Mildly prominent abdominal and pelvic lymph nodes, without overt adenopathy 6. Minimal amount of ascites ACT 112: Positive. There are findings on this exam that require communication between the performing entity and the patient following Patient Test Result Information Act ([place] ACT 112) guidelines. Electronically signed by Cody Cali 11-09-2024 5:22 PM Chest CTA 11/09/24 16:14 Clinical history: Abdominal pain. Pancreatitis Technique: Axial computed tomography images were obtained of the chest after the administration of intravenous contrast according to the CT angiogram protocol Comparison is made to the prior CT dated 07/03/2024 Findings: There is no definite sign of pulmonary embolism. There is suspected mild pulmonary edema. There is an unchanged 3 mm right middle lobe nodule. There is no pleural effusion or pneumothorax. There is no sign of pulmonary fibrosis or other diffuse interstitial process. No endobronchial lesion is seen There is no mediastinal, hilar, or axillary adenopathy. The thoracic aorta appears unremarkable with no sign of aneurysm or dissection. There is no pericardial effusion The visualized upper abdomen appears unremarkable. No fracture is seen. No focal osseous lesion is evident Impression: 1. No definite sign of pulmonary embolism 2. Mild pulmonary edema 3. Resolution of the previously seen left pleural effusion 4. Unchanged small right middle lobe nodule, likely benign. A follow-up chest CT could be obtained in 6 months to 1 year to ensure continued stability ACT 112: Positive. There are findings on this exam that require communication between the performing entity and the patient following Patient Test Result Information Act ([place] ACT 112) guidelines. Electronically signed by Cody Cali 11-09-2024 5:16 PM Discharge Plan Visit Data Chief Complaint: Abnormal Labs/Diagnostic Testing Stated Complaint: ABNORMAL LABS ED Provider: Kervin Alexander Discharge Problem: Autoimmune pancreatitis, Sinus tachycardia, Protein-calorie malnutrition, Hypomagnesemia, Elevated troponin Patient Disposition: Admitted As Inpatient Condition: Critical Discharge Instructions Interventions: ED Discharge Assessment Last Done: 11/09/24 20:47 Discharge Problem: Protein-calorie malnutrition Qualifiers: Protein-calorie malnutrition severity: unspecified severity Qualified Code(s): E46 - Unspecified protein-calorie malnutrition
[2024-11-09 15:19] LABS: Hematocrit (blood only) 28.3 % (37.0-47.0); Hemoglobin 8.9 g/dl (12.0-16.0); Mean Corpuscular Hemoglobin 24.6 pg (25.0-34.0); Mean Corpuscular Hgb Conc 31.4 g/dL (32.0-36.0); Mean Corpuscular Volume 78.2 fL (80.0-100.0); Mean Platelet Volume 10.3 fL (9.4-12.4); Platelet Count 278 K/uL (130-400); RDW Coefficient of Variation 16.3 % (11.5-14.5); RDW Standard Deviation 46.3 fL (36.4-46.3); Red Blood Count 3.62 M/uL (4.20-5.40); White Blood Count 3.47 K/ul (4.8-10.8)
[2024-11-09 15:19] LABS: iSTAT Creatinine 1.5 mg/dl (0.6-1.3); iSTAT Hemoglobin 9.2 g/dl (12.0-16.0); iSTAT Ionized Calcium 1.6 mmol/l (1.12-1.32); iSTAT Potassium 4.6 mmol/L (3.3-5.0)
--- NOTE | 2024-11-09 15:21 | XRay Report ---
XR chest 1V portable CLINICAL HISTORY: history of seronegative polyarthritis, depression, COMPARISON STUDY: 08/31/2024 FINDINGS: Heart size and pulmonary vasculature are normal. No effusion, consolidation, or pneumothora x. IMPRESSION: No acute findings. ACT 112: Negative or not required by law. Electronically signed by: Salvador Woods M.D. 11/09/2024 3:20 PM
[2024-11-09] MEDS: SODIUM CHLORIDE 0.9% 1,000 ML IV SCH ×3 (15:28→22:27)
[2024-11-09 15:42] LABS: BUN Creatinine Ratio 28.6 (10-20); Calcium 11.4 mg/dl (8.6-10.3); Creatinine Clr Calc Pharmacy 50.1 ml/min; Potassium 4.6 mmol/L (3.5-5.1)
[2024-11-09 15:43] LABS: Pregnancy Test, Serum Negative (Negative)
[2024-11-09 15:47] LABS: INR 1.2 (0.9-1.1); Prothrombin Time 12.6 Seconds (9.0-12.0)
[2024-11-09 15:49] LABS: Basophils # (auto) 0.01 K/uL (0.00-0.20); Basophils % (auto) 0.3 %; Immature Granulocytes # (auto) 0.24 K/uL (0.01-0.20); Immature Granulocytes % (auto) 6.9 %; Lymphocytes # (auto) 0.13 K/uL (1.20-3.40); Lymphocytes % (auto) 3.7 %; Monocytes # (auto) 0.09 K/uL (0.11-0.59); Monocytes % (auto) 2.6 %; Neutrophils % (auto) 86.5 %
[2024-11-09 15:53] LABS: Albumin Globulin Ratio 0.6 (0.9-2); Albumin Level 2.6 gm/dl (3.4-5.0); Bilirubin,Total 0.3 mg/dl (0.2-1.0); Globulin 4.4 gm/dl (2.5-4.0); Magnesium 1.3 mg/dl (1.7-2.4); Phosphorus 3.1 mg/dl (2.5-4.9); Troponin I High Sensitivity 1022.4 pg/ml (0-14)
[2024-11-09 15:56] LABS: Thyroid Stimulating Hormone 10.069 uIu/ml (0.300-4.500)
[2024-11-09] MEDS: MAGNESIUM SULFATE / D5W 1 GM/100 ML BAG IV SCH (16:22)
[2024-11-09 16:31] LABS: T4 Free Thyroxine 0.63 ng/dl (0.61-1.60)
[2024-11-09] MEDS: OPTIRAY 320 125ml IV ONE (16:49)
--- NOTE | 2024-11-09 17:16 | CT Scan Report ---
Clinical history: Abdominal pain. Pancreatitis Technique: Axial computed tomography images were obtained of the chest after the administration of intravenous contrast according to the CT angiogram protocol Comparison is made to the prior CT dated 07/03/2024 Findings: There is no definite sign of pulmonary embolism. There is suspected mild pulmonary edema. There is an unchanged 3 mm right middle lobe nodule. There is no pleural effusion or pneumothorax. There is no sign of pulmonary fibrosis or other diffuse interstitial process. No endobronchial lesion is seen There is no mediastinal, hilar, or axillary adenopathy. The thoracic aorta appears unremarkable with no sign of aneurysm or dissection. There is no pericardial effusion The visualized upper abdomen appears unremarkable. No fracture is seen. No focal osseous lesion is evident Impression: 1. No definite sign of pulmonary embolism 2. Mild pulmonary edema 3. Resolution of the previously seen left pleural effusion 4. Unchanged small right middle lobe nodule, likely benign. A follow-up chest CT could be obtained in 6 months to 1 year to ensure continued stability ACT 112: Positive. There are findings on this exam that require communication between the performing entity and the patient following Patient Test Result Information Act ([place] ACT 112) guidelines. Electronically signed by Cody Cali 11-09-2024 5:16 PM
--- NOTE | 2024-11-09 17:23 | CT Scan Report ---
Clinical History: Abdominal pain and nausea. Pancreatitis Technique: Axial computed tomography images were obtained of the abdomen and pelvis after the administration of intravenous contrast. Comparison is made to the prior CT dated 07/07/2024. Findings: The liver is overall of normal size, attenuation, and contour with no sign of cirrhosis or significant fatty infiltration. No liver mass lesion is seen. The portal vein is patent. The gallbladder has been removed. No bile duct dilatation is noted. The spleen is of normal size. No focal splenic lesion is evident. There has been near complete resolution of the previously seen fluid around the pancreas with a small amount of fluid remaining adjacent to the pancreatic tail. No clear discrete abscess or pseudocyst is seen The pancreatic duct is of normal caliber. The adrenal glands appear unremarkable. No definite renal or proximal ureteral calculi are seen on this contrast-enhanced study. There is no hydronephrosis or perinephric stranding. No renal mass lesion is identified. There is a small 8 mm cyst in the inferior right kidney and there is a 1 cm cyst in the mid right kidney. The aorta is of normal caliber. There are small subcentimeter retroperitoneal para-aortic lymph nodes. No overt abdominal adenopathy is seen. There is suspected mild wall thickening of the gastric antrum. There is no sign of small bowel obstruction. There is mild constipation. There is no sign of appendicitis. No free intraperitoneal air is identified. There is a minimal amount of ascites. No distal ureteral or bladder calculi are seen. No bladder mass lesion is evident. The iliac arteries are of normal caliber. There are mild prominent iliac chain lymph nodes, measuring up to 9 mm in short axis No overt pelvic adenopathy is noted. No fracture is identified. No focal osseous lesion is seen Impression: 1. Near complete resolution of the previously seen pancreatitis, with a small amount of fluid remaining adjacent to the pancreatic tail 2. Possible mild wall thickening of the gastric antrum, which could be due to secondary edema from the adjacent pancreatitis. Inflammatory or other gastritis cannot be excluded 3. Small right renal cysts 4. Constipation 5. Mildly prominent abdominal and pelvic lymph nodes, without overt adenopathy 6. Minimal amount of ascites ACT 112: Positive. There are findings on this exam that require communication between the performing entity and the patient following Patient Test Result Information Act ([place] ACT 112) guidelines. Electronically signed by Cody Cali 11-09-2024 5:22 PM
[2024-11-09] MEDS: fentaNYL citrate PF 100 MCG/2 ML VIAL IV STA (18:07)
[2024-11-09] MEDS: CALCITONIN SALMON 400 UNITS/2 ML SQ STA (18:51)
--- NOTE | 2024-11-09 19:01 | Communication Note ---
Date of Service: November 09, 2024 29-year-old lady with PMH of hypocalcemia [on calcium supplement, stopped supplement several weeks ago], chronic pancreatitis deemed autoimmune, iron defi ciency, seronegative polyarthritis, anemia of chronic disease, LUDA was evaluated at the GI office today where she was noted to be extremely weak, and a lot of generalized pain, mother had concerned that she was rapidly declining. And she was sent to the ED for management. Mother notes that she also fell today and bumped her head, will get CT scan of the head. Patient reports patient poor appetite, denies nausea or vomiting or diarrhea or fever or sore throat or cough or chest pain or palpitation or pain or burning while passing urine. Labs and imagings reviewed. CBC fairly around her baseline, creatinine elevated at 1.26 [baseline around 0.33], calcium 11.4, magnesium 1.3, troponin 1022/trended to 1000, lipase 677, TSH elevated with free T4 normal. Beta-hCG negative and test negative. CXR with no acute finding. CTAP with chronic abnormal findings including pancreatitis. CT chest negative for PE has some mild pulmonary edema, stable RML nodule [patient to follow-up with CT chest in 6 months]. Likely acute on chronic pancreatitis: Elevated lipase, patient with increased abdominal pain. Clear liquid diet, continue with IV fluid. Patient received 2 L IV fluid in the ED. Nausea control, pain control with Tylenol, as needed oxycodone and morphine. Chronic protein energy malnutrition: Consult dietitian, start multivitamins with minerals. Add folic acid and thiamine. Fall: Get CT head. Generalized weakness: PT/OT. Elevated troponin: Patient denies chest pain, EKG with no acute ST or T changes. Per discussion with ED physician who did POCUS which is negative for pericardial effusion and regional wall motion abnormality. Will trend troponin, get echo, cardiology consult, telemetry monitoring. Acute kidney injury and hypercalcemia: Patient received 2 L of IV fluid in the ED and calcitonin. Continue with normal saline at 60 mL an hour, labs in AM. Hold calcium supplement/vitamin D. Avoid nephrotoxic's. On exam: GENERAL: Alert and oriented x3. NAD, on 1.5 L NC O2. appears chronically ill/frail/weak/lean/thin HEENT: No pallor, no icterus. Pupils equal, round and reactive to light. Oral mucosa dry. NECK: No JVD, no neck masses. HEART: S1 and S2 heard. Regular rate and rhythm. HR in 110s. No murmur, no gallop. RESPIRATORY SYSTEM: Normal AP diameter. No accessory muscle use. No wheezing, no crackles. ABDOMEN: Soft, bowel sounds present, mild tender x diffuse, no distention. Healed lap dean scars noted. CENTRAL NERVOUS SYSTEM: No facial droop. Speech is clear. Obeys simple commands. Moves extremities. EXTREMITIES: No edema, no erythema seen. I have seen and examined the patient and have discussed the case with the provider above. I agree with the assessment and plan as stated. Time spent: 40 min
[2024-11-09] MEDS: MoRPHine SULFATE 2 MG/ML CARP ONE (19:35)
[2024-11-09] MEDS: MoRPHine SULFATE 2 MG/ML CARP IV STA (19:36)
--- NOTE | 2024-11-09 19:54 | History & Physical Report ---
Date of Service November 09, 2024 Assessment & Plan (1) Gallstone pancreatitis: Plan: #Seronegative polyarthritis (2) Sinus tachycardia: (3) Malnutrition: (4) Elevated troponin: (5) Hypomagnesemia: (6) Anemia: Plan 29 year old female with a history of Seronegative polyarthritis, MAS (macrophage activation syndrome), Autoimmune Pancreatitis, etiology unclear-- gallstone versus autoimmune/connective tissue related, s/p cholecystectomy 08/31/2024, anemia, hypoparathyroidism, hypothyroidism, presented to emergency department for abdominal pain and progressive weakness. Referred by her GI for nutrition concerns, abdnormal labs, and worsening weakness. She had labs drawn today following her GI appointment and was notified via telephone of abnormal values- concern for anemia, PAMELA, with increase CR at 1.3, elevated calcium and LFT's. Progressive weakness over the last several weeks to the point, she is now having difficulty bearing weight and ambulating. She had a fall earlier today d/t weakness and subsequently hit her head on the hardwood stairs at her home. She reports having a headache and mild tenderness to the back of her head. From a nutrition standpoint, she's been managed nutritionally at home with Boost supplements and small frequent meals. She denies N/V and states she has decreased appetite and feels full sooner. Oral intake of fluids is minimal, but feels she urinates okay. She's had a change in bowel habits since her gallbladder removal in August 2024, intermittent diarrhea. She's on ferrous sulfate for chronic anemia. Patient has autoimmune disease with possible drug-induced Lupus and Still's disease, although not clearly understood whether these drug-induced conditions have been ruled out by her Home Health Billing Specialist. Her seronegative polyarthritis is managed with xeljanz and is currently transitioning to Rinvoq. Gallstone pancreatitis: Referred by GI for nutrition concerns etiology unclear-- gallstone versus autoimmune/connective tissue related, s/p cholecystectomy 08/31/2024, Progressive weakness: Fall: Lasting several weeks; difficulty bearing weight and ambulating Fall today; hitting her head on hardwood stairs Head CT ordered Pain- Morphine 1G given x 2 Tachycardia: Telemetry monitoring Trend Trop Q6H Echocardiogram- ordered Cardiology c/s- ordered Malnourishment: Boost supplements clear diet IVF Nutrition consult Hypercalcemia Serum Ca 11.4; I Chriss 1.6 Hold home calcitriol and ergocalciferol Calcimar given in ED Hypomagnesemia: serum Mg+ 1.3; gave 3 G IV Mg+ Trend and replace as needed Hypokalemia: Serum K+ 3.4; given 40 meq PO BMP with AM labs DVT Ppx: Teds Code status: Full PCP: Chapis Dispo: Admit to Telemetry Patient seen in collaboration with Dr. Nichols. Please see addendum.I spent a total of 75 minutes coordinating, documenting and providing care for this patient excluding time spent in the performance of separately billed services or time spent by another provider/QHP. History of Present Illness Chief Complaint: Weakness and Abdominal Pain Primary Care Provider: Payal Myers MD 29 year old female with a history of Seronegative polyarthritis, MAS (macrophage activation syndrome), Autoimmune Pancreatitis, etiology unclear-- gallstone versus autoimmune/connective tissue related, s/p cholecystectomy 08/31/2024, anemia, hypoparathyroidism, hypothyroidism, presented to emergency department for abdominal pain and progressive weakness. Referred by her GI for nutrition concerns, abdnormal labs, and worsening weakness. She had labs drawn today following her GI appointment and was notified via telephone of abnormal values- concern for anemia, PAMELA, with increase CR at 1.3, elevated calcium and LFT's. Progressive weakness over the last several weeks to the point, she is now having difficulty bearing weight and ambulating. She had a fall earlier today d/t weakness and subsequently hit her head on the hardwood stairs at her home. She reports having a headache and mild tenderness to the back of her head. From a nutrition standpoint, she's been managed nutritionally at home with Boost supplements and small frequent meals. She denies N/V and states she has decreased appetite and feels full sooner. Oral intake of fluids is minimal, but feels she urinates okay. She's had a change in bowel habits since her gallbladder removal in August 2024, intermittent diarrhea. She's on ferrous sulfate for chronic anemia. Patient has autoimmune disease with possible drug-induced Lupus and Still's disease, although not clearly understood whether these drug-induced conditions have been ruled out by her Home Health Billing Specialist. Her seronegative polyarthritis is managed with xeljanz and is currently transitioning to Rinvoq. History obtained from both the patient and her mother, as well as an external chart review. Allergies Allergy/AdvReac Type Severity Reaction Status Date / Time adalimumab-atto Allergy Severe Chills and Verified 08/31/24 06:01 [From Narda(EMIL)] hot flashes sulfasalazine Allergy Severe Unknown Verified 08/31/24 06:01 Skin Reaction metoclopramide [From Reglan] AdvReac Intermediate facial Verified 08/31/24 06:01 twitch Home Medications Medication Instructions Recorded Confirmed Type ferrous sulfate 325 mg (65 mg 325 mg PO DAILY 05/20/24 11/09/24 History iron) tablet fenofibrate 160 mg tablet 145 mg PO QAM 07/03/24 11/09/24 History omeprazole 20 mg capsule,delayed 20 mg PO QAM 07/03/24 08/31/24 History release calcitriol 0.5 mcg capsule 0.5 mcg PO DAILY #30 caps 07/05/24 11/09/24 Rx calcium 250 mg 1 tab PO BID #60 tabs 07/05/24 08/31/24 Rx (citrate)-ergocalciferol (D2) 2.5 mcg (100 unit) tablet (Chriss-Citrate) ergocalciferol (vitamin D2) 1,250 50,000 unit PO .weekly #20 caps 07/05/24 11/09/24 Rx mcg (50,000 unit) capsule ondansetron 4 mg disintegrating 4 mg PO Q6H PRN nausea and 07/05/24 08/31/24 Rx tablet vomiting #20 tabs sodium chloride 1,000 mg soluble 1,000 mg PO QAM 08/19/24 11/09/24 History tablet tofacitinib 11 mg tablet,extended 11 mg PO QPM 08/19/24 08/31/24 History release 24 hr (Xeljanz XR) fluvoxamine 25 mg tablet 25 mg PO HS 08/21/24 08/31/24 History oxycodone-acetaminophen 5 mg-325 1 tab PO Q6H PRN pain #14 tabs 08/31/24 Rx mg tablet (Percocet) cyanocobalamin (vitamin B-12) 500 500 mcg PO QAM 11/09/24 11/09/24 History mcg tablet Past Med/Surg History Problem List (Updated 11/09/24 @ 19:13 by Kervin Alexander MD) Elevated troponin (Acute) Hypomagnesemia (Acute) Protein-calorie malnutrition (Acute) Sinus tachycardia (Acute) Pancreatitis (Acute) Gallstone pancreatitis Depression Hypothyroidism (acquired) 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, 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 activation syndrome Migraine Leukocytopenia Seronegative polyarthritis (Acute) Anemia Sinus tachycardia Arthralgia Anxiety Medical History GERD (gastroesophageal reflux disease) History of pleural effusion Undifferentiated inflammatory polyarthritis Malnutrition Macrophage activation syndrome History of electrolyte imbalance 2023 History of sinus tachycardia denies issues, feels due to recent hospitalization, reaction to medication Migraines Anemia Seronegative polyarthritis Still's disease of adult diagnosed then told not sure if she does have Still's disease, follows with Dr Malcolm 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 Depression Anxiety Surgical History History of wisdom tooth extraction History of lymph node biopsy Family History Grandfather (Paternal) Myocardial infarction Father Myocardial infarction Family/Other Diabetes cousin Grandmother (Maternal) Pancreatoblastoma Social History Smoking Status: Never smoker Second Hand Exposure: No; Do You Dip or Chew Tobacco: No; Hx Alcohol Use: No Hx Substance Use: No Preferred Language: Pakistani Communication Ability: Effective Marketing Manager Health Communications Required: No Beliefs That Will Affect Care: None Current Living Situation: Family Current Living Situation Comment: Lives with mom Feels Safe at Home: Yes Assistive Devices: Glasses Review of Systems Review of Systems: All systems reviewed & are unremarkable except as noted in HPI & below Physical Exam Physical Exam: VITALS: Reviewed. WEIGHT/BMI reviewed. GEN: Appears malnourished, weak, NAD. PSYCH: Good Judgment. AOx3. Normal memory and mood, with flat affect. HEENT -Head: Normocephalic; large circular bum p to occipital area. -Eyes: PERRL, EOMI. No discharge or redn ess; -Ears: External ears are normal. Normal TMs. -Nose: Normal nares. -Mouth and throat: MMM. Normal gums, muc armando, palate,. Good dentition. NECK: Supple, with no masses. CV: Tachycardic to 110's, no m/r/g. Warm and well perfused. LUNGS: CTAB, no w/r/c. ABD: Soft, tender with palpation, ND, NBS, no masses or organomegaly. : N/A SKIN: Warm, well perfused. Surgical scars to abdomen, no skin rashes or abnormal lesions. MSK: No deformities, 1/5 muscle strength to BLE, 2/5 muscle strength to BUE, no joint swelling. EXT: No clubbing, cyanosis, or edema. NEURO: Non weight bearing. Normal muscle tone. No focal deficits. Results & Data Results & Data Vital Signs (Past 12 Hours) Vital Signs Temp Pulse Pulse Resp BP BP Pulse Ox 11/09/24 19:37 120 H 11/09/24 19:24 122 H 20 95 11/09/24 19:18 128 H 15 95 11/09/24 19:00 122 H 19 84/52 L 96 11/09/24 18:53 118 H 20 83/51 L 97 11/09/24 18:18 122 H 26 H 94 11/09/24 18:00 120 H 86/56 L 90 11/09/24 17:36 94/66 L 11/09/24 17:33 113 H 90 11/09/24 17:30 95/62 L 11/09/24 17:12 112 H 21 95 11/09/24 17:11 88 L 11/09/24 17:00 91/62 L 11/09/24 17:00 91/62 L 11/09/24 17:00 111 H 24 11/09/24 16:30 91/55 L 11/09/24 16:18 114 H 24 11/09/24 16:15 111 H 22 86/53 L 96 11/09/24 16:00 110 H 25 H 84/55 L 96 11/09/24 15:42 114 H 18 98 11/09/24 15:30 86/51 L 11/09/24 15:24 117 H 11/09/24 15:23 116 H 18 96 11/09/24 15:23 113 H 16 82/52 L 96 11/09/24 14:36 37.3 C 143 H 14 84/51 L 98 O2 Del Method O2 Flow Rate 11/09/24 19:37 11/09/24 19:24 Nasal Cannula 2 11/09/24 19:18 Nasal Cannula 2 11/09/24 19:00 Nasal Cannula 2 11/09/24 18:53 Nasal Cannula 2 11/09/24 18:18 Nasal Cannula 2 11/09/24 18:00 Nasal Cannula 2 11/09/24 17:36 11/09/24 17:33 Nasal Cannula 2 11/09/24 17:30 11/09/24 17:12 Nasal Cannula 2 11/09/24 17:11 Nasal Cannula 0 11/09/24 17:00 11/09/24 17:00 11/09/24 17:00 11/09/24 16:30 11/09/24 16:18 11/09/24 16:15 Room Air 11/09/24 16:00 Room Air 11/09/24 15:42 Room Air 11/09/24 15:30 11/09/24 15:24 11/09/24 15:23 Room Air 11/09/24 15:23 Room Air 11/09/24 14:36 Room Air Laboratory Results Short CBC 11/09/24 Range/Units 15:00 WBC 3.47 L (4.8-10.8) K/ul Hgb 8.9 L (12.0-16.0) g/dl Hct 28.3 L (37.0-47.0) % Plt Count 278 (130-400) K/uL BMP 11/09/24 15:00 Sodium 135 L Potassium 4.6 Chloride 102 Carbon Dioxide 33 H BUN 36 H Creatinine 1.26 H Glucose 92 Calcium 11.4 H Liver Function 11/09/24 Range/Units 15:00 Total Bilirubin 0.3 (0.2-1.0) mg/dl Direct Bilirubin 0.0 (0-0.2) mg/dl AST 228 H (13-39) U/L ALT 40 (7-52) U/L Alkaline Phosphatase 38 (34-104) U/L Albumin 2.6 L (3.4-5.0) gm/dl Urine 11/09/24 Range/Units 19:39 Urine Color Yellow Urine Appearance Clear (Clear) Urine pH 5.5 (4.5-7.5) Ur Specific [place] 1.036 H (1.000-1.030) Urine Protein 1+ H (Negative) Urine Glucose (UA) Negative (Negative) Code Status & VTE Plan Code Status Full VTE Prophylaxis Plan VTE Prophylaxis will be ordered: Yes
[2024-11-09 19:57] LABS: Appearance Urine Clear (Clear); Bacteria Urine Automated None Seen (None Seen); Bilirubin Urine Negative (Negative); Blood Urine Negative (Negative); Cast Urine Automated 0-2 /lpf (0-2); Color Urine Yellow; Epithelial Cell Urine Auto 0-2 /hpf (0-2); Glucose Urine UA Negative (Negative); Ketones Urine Negative (Negative); Leukocyte Esterase Urine 2+ (Negative); Nitrite Urine Negative (Negative); Protein Urine 1+ (Negative); RBC Urine Automated 0-2 /hpf (0-2); Specific Gravity Urine 1.036 (1.000-1.030); Urobilinogen Urine Negative (Negative); pH Urine 5.5 (4.5-7.5)
[2024-11-09 20:17] LABS: Calcium Oxalate Crystals Urine Present (None Prsent)
[2024-11-09] MEDS: ALBUMIN 25% 12.5 GM/50 ML VIAL IV ONE (20:19)
--- NOTE | 2024-11-09 21:01 | CT Scan Report ---
EXAMINATION: Head CT without CLINICAL HISTORY: Fall PRIORS: None TECHNIQUE: Contiguous axial images were obtained through the head without the use of intravenous contrast. Sagittal and coronal reformations are supplied. FINDINGS: Appropriate parenchymal volume is noted. Arrington-white differentiation is preserved. No edema or midline shift. Subtle high attenuation is noted overlying the tentorium which is present and less conspicuous on the additional thin images supplied, image 123, series 4. No large subdural or epidural hematoma. Ventricles are normal in size and configuration. Brainstem and cerebellum have a normal appearance. Calvarium unremarkable. Moderate paranasal sinus mucosal thickening involving the ethmoid and sphenoid sinuses. Mastoid air cells are well-pneumatized. Globes are intact. No retrobulbar abnormality. IMPRESSION: 1. Subtle hyperattenuation of the tentorium which may represent a subtle subdural hematoma in the setting of trauma. Please correlate clinically and follow-up head CT could be considered if clinically appropriate. Alternatively, if prior head CTs are available, these would be helpful for comparison. 2. Moderate chronic sinusitis. Electronically signed by Christine Ortega 11-09-2024 9:00 PM
[2024-11-09] MEDS ORDERED: POLYETHYLENE (MIRALAX) 17 GM PACK PO PRN (21:09)
[2024-11-09] MEDS ORDERED: MoRPHine SULFATE 2 MG/ML CARP IV PRN (21:09)
[2024-11-09] MEDS ORDERED: ACETAMINOPHEN 325 MG TAB PO PRN ×2 (21:09)
[2024-11-09] MEDS ORDERED: ONDANSETRON INJ 2 MG/ML 2 ML VIAL IV PRN (21:09)
[2024-11-09] MEDS ORDERED: MAGNESIUM HYDROXIDE SUSP 30 ML UDC PO PRN (21:09)
[2024-11-09] MEDS ORDERED: oxyCODONE HCL IR 5 MG TAB (IMMEDIATE RELEASE) PO PRN (21:09)
[2024-11-09] MEDS ORDERED: ALUMINUM/MAGNESIUM SUSP 30 ML UDC PO PRN (21:09)
[2024-11-09 21:24] VITALS: PULSE 112; RESP 20; TEMP 99; O2SAT 97
--- OUTSIDE RECORDS SUMMARY | 2024-11-09 21:45 | External Medical Summary ---
Author Name Unknown Address Unknown Organization [id number] [address] [place] [id number] Laboratory Report Ordering Provider Test Date Status MARTHA CASTELLANOS 11/09/2024 12:00:12 Final Observation Date Value Abnormality Reference (Units ) Status WBC, Total 11/09/2024 12:00:12 3.88 Below low normal 4. 00-10.80 (K/uL) Final RBC 11/09/2024 12:00:12 3.32 3.85-5.15 (M/uL) Final Hemoglobin 11/09/2024 12:00:12 8.3 Below low normal 12 .0-15.3 (g/dL) Final HCT 11/09/2024 12:00:12 27.5 Below low normal 36. 0-45.2 (%) Final MCV 11/09/2024 12:00:12 82.8 81.5-97.5 (fL) Final MCH 11/09/2024 12:00:12 25.0 27.0-34.0 (pg) Final MCHC 11/09/2024 12:00:12 30.2 32.0-36.0 (g/dL) Final RDW 11/09/2024 12:00:12 16.6 11.5-15.5 (%) Final Platelets 11/09/2024 12:00:12 278 140-400 (K /uL) Final MPV 11/09/2024 12:00:12 10.5 6.6-11.1 ( fL) Final Performing Location [facility] [address] [place] [id number]
--- OUTSIDE RECORDS SUMMARY | 2024-11-09 21:45 | External Medical Summary ---
Author Name Unknown Address Unknown Organization [facility] [address] [place] [id number] Laboratory Report Ordering Provider Test Date Status MARTHA CASTELLANOS 11/09/2024 12:00:12 Final Observation Date Value Abnormality Reference (Units ) Status BUN 11/09/2024 12:00:12 36 Above high normal 6-20 (mg/dL) Final Creatinine 11/09/2024 12:00:12 1.3 Above high normal 0.5-1.0 (mg/dL) Final Glomerular filtration rate/1.73 sq M.predicted [Volume Rate/Area] in Serum, Plasma or Blood by Creatinine-based formula (CKD-EPI) 11/09/2024 12:00:12 58 Below low normal >=60 (mL/min) Final eGFR is calculated based on the CKD-EPI 2020 equation. Sodium 11/09/2024 12:00:12 135 135-146 (m mol/L) Final Potassium 11/09/2024 12:00:12 4.5 3.5-5.1 (m mol/L) Final Cl 11/09/2024 12:00:12 101 98-107 (mm ol/L) Final CO2 11/09/2024 12:00:12 24 22-32 (mmo l/L) Final Anion gap 11/09/2024 12:00:12 10 7-15 (mmol /L) Final Glucose 11/09/2024 12:00:12 124 Above high normal 70 -120 (mg/dL) Final Albumin 11/09/2024 12:00:12 2.5 Below low normal 3.8 -5.0 (g/dL) Final AST (Aspartate aminotransferase) 11/09/2024 12:00:12 318 Above high normal 10-35 (U/L) Final Alk Phos 11/09/2024 12:00:12 45 35-130 (U/ L) Final Bilirubin, Total 11/09/2024 12:00:12 <0.2 <=1 .2 (mg/dL) Final Calcium 11/09/2024 12:00:12 11.4 Above high normal 8. 4-10.2 (mg/dL) Final Protein 11/09/2024 12:00:12 7.1 6.0-8.3 (g /dL) Final ALT (Alanine aminotransferase) 11/09/2024 12:00:12 49 Above high normal 10-35 (U/L) Final Per[facility] Location [facility] [address] [facility] [id number]
--- OUTSIDE RECORDS SUMMARY | 2024-11-09 21:45 | External Medical Summary | Summary of Care ---
Author Name Unknown Organization [facility] Address [address] [place] [address] Phone [phone] Care Team Providers Care Support Director Name Role Phone Payal Myers MD Primary Care Provider [phone] Reason for Referral * Evaluate & Treat - Unlimited Visits (Within 30 days (routine)) - Authorized Specialty Diagnoses / Procedures Referred By Conttaryn t Referred To Contact Pharmacist / Pharmacy Diagnoses Seronegative inflammatory arthritis Shahriar Burnette MD [address] [address] Phone: tel: fax: Referral ID Status Reason Start Date Expiration Date Visits Requested Visits Authorized [id number] Authorized Specialty Services Required 10/29/2024 04/27/2025 99 99 Question Answer Referral Priority Within 30 days (routine) Referring Provider Role: Specialist Specialty: Rheum Reason for Referral: Med Education Where should this appointment be scheduled? [facility] Reason for Visit * Reason Onset Date Comments Precert Approved 10/29/2024 RINVOQ ER 15 MG TABLET Encounter Details Date Type Department Care Team (Late st Contact Info) Description 10/29/[address] [facility] [address] [place] [phone] Shahriar Burnette MD [address] [facility] [address] Precert Approved (RINVOQ ER 15 MG TABLET /) Allergies Active Allergy Reactions Criticality Noted Date Comments Adalimumab High 05/20/2024 Other Reaction(s): Chills and hot flashes Metoclopramide High 07/08/2024 Other Reaction(s): facial twitch Sulfasalazine Rash Medium 10/23/2023 documented as of this encounter (statuses as of 11/03/2024) Medications Ferrous Sulfate 325 (65 Fe) MG Oral Tablet Delayed Release Take 1 Tablet by mouth. Every other day. Active B-12 500 MCG Oral Tablet Take 2 Tablets by mouth in the morning. 4 Active Sodium Chloride 1 GM Oral Tablet Take 1 Tablet by mouth in the morning. Active Omeprazole 20 MG Oral Tablet Delayed Release Take 1 Tablet by mouth in the morning. 90 Tablet 3 5 Active linaCLOtide 145 MCG Oral Capsule (Linzess) Take 1 Capsule by mouth daily before breakfast. 30 Capsule 11 5 Active Additional Information Patient not taking.Reported on 09/21/2024 Ergocalciferol 1.25 MG (19839 UT) Oral Capsule (Vitamin D2(Drisdol)) Take 1 Capsule by mouth once a week. 12 Capsule 3 5 Active fluvoxaMINE Maleate 25 MG Oral Tablet (Luvox)Indicat ions:Moderate episode of recurrent major depressive disorder (HCC),LUDA (generalized anxiety disorder) Take 1 Tablet by mouth every night at bedtime. Active Magic Swizzle (Lidocaine-Devan adryl-Maalox) oral solution Swish and spit 15 mL in the morning and 15 mL before bedtime. 300 mL 5 Active Fenofibrate 145 MG Oral Tablet (Tricor) Take 1 Tablet by mouth in the morning. 30 Tablet 2 5 Active Calcitriol 0.5 MCG Oral Capsule (Rocaltrol) Take 1 Capsule by mouth in the morning. 30 Capsule 2 5 Active Tofacitinib Citrate ER 11 MG Oral Tablet Extended Release 24 Hour (Xeljanz XR) Take 1 Tablet by mouth in the morning. 30 Tablet 5 10/01/2024 3:29 PM EDT 5 10/30/19 25 Discontin ued(Patie nt preferenc e/discont inuation) documented as of this encounter (statuses as of 11/03/2024) Active Problems Problem Noted Date Diagnosed Date Other chronic pancreatitis 08/17/2024 Recurrent major depressive disorder 08/17/2024 Hypocalcemia 06/07/2024 Isolated proteinuria without specific morphologi c lesion 06/05/2024 Undifferentiated inflammatory polyarthritis 05/22 Anemia of chronic disease 06/02/2024 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 Iron deficiency 02/28/2024 LUDA (generalized anxiety disorder) 10/09/2023 documented as of this encounter (statuses as of 11/03/2024) Resolved Problems Problem Noted Date Diagnosed Date Resolved Date Ileus 06/08/2024 06/13/2024 Rash and nonspecific skin eruption 06/04/2024 09/24/2024 Chest pain, non-cardiac 06/04/202405/23 Idiopathic acute pancreatitis 06/04/2024 06/13/2024 MAS (macrophage activation syndrome) 06/03/2024 08/17/2024 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 Never true 07/01/20 24 Within the past 12 months, t he food you bought just didn't last and you didn't have money to get more. Never true 07/01/2024 Do you need food for this week? No 07/01/2024 Comments No Sex and Gender Information [...] doing errands alone such as visiting a doctor’s office or shopping? (15 years old or [...] encounter Miscellaneous Notes * Telephone Encounter - Cassidy Rivera PHARM Tech - 11/02/2024 3:53 PM EDT Rheumatology Pre-Certification Response Approved - CR Patient - Can be filled at [facility] ([facility] will send prescription after appointment) Thank you, Jose Rivera [employer] [facility] 11/02/2024,3:53 PM * Telephone Encounter - Cassidy Rivera PHARM Tech - 11/02/2024 3:52 PM EDT Patient Phone Numbers Spoke with patient to schedule [facility] appointment for Medication Education. Appointment scheduled as noted below. 11/06/2024 Thank you, Jose Rivera [employer] [facility] 11/02/2024,3:52 PM * Telephone Encounter - Leona Minaya [facility] - 10/29/2024 12:54 PM EDT Rheumatology Pre-Certification Request Medication/Disease State Information: Diagnosis: Rheumatoid arthritis of multiple sites without rheumatoid factor [M06.09] Patient Age: [age] year old Medication/Dose/Route/Interval: Rinvoq: 15 mg once daily Site of Care: Self-Administered Insurance considerations: [facility] Commercial: Formulary reviewed and medication selection on formulary Previously Tried Therapy: Previously tried and resulted in inadequate response/therapeutic failure: Cimzia, Humira, and Xeljanz Reauthorization: No Required Screening Information: Vaccination(s): will coordinate care for pertinent vaccine TB Testing:Completed under scans, care everywhere or epic Hepatitis B Screenings: Completed under scans, care everywhere or epic Hepatitis C Screenings: Completed under scans, care everywhere or epic No active, severe, and/or uncontrolled infection Rheumatology Office Information: Dance Director: SHAHRIAR BURNETTE Rheumatology Pharmacist Appointment Request Department & Provider: Rheumatology [address] [[id number]] - Pharmacist #1 Rheumatology [facility] [[id number]] Patient to be scheduled for visit type: Telephonic Medicine Visit [[id number]] Length of visit: 30 minutes Reason for visit: Med Edu: rinvoq Time Frame: within 1 weeks Compass Peggy Specific Scheduling Guidance Diagnosis: Rheumatoid Arthritis If medication is approved and able to be filled at [facility], please schedule for 60 minutes ([facility] will send Rx) Request routed to [facility] Specialty Scheduling Pool ([id number]) Please route this encounter back to Rheum Pharmacist Refill Pool/Class [p [phone]] if unable to schedule patient after 3 attempts. Thank you and have a wonderful day, Leona Minaya RPh * Telephone Encounter - Shahriar Burnette MD - 10/29/2024 12:31 PM EDT Rheumatology Education, Pre-Certification, and/or Pharmacist Co-Management Request Medication Education (please select yes for all new starts, EXCEPT prolia, evenity, reclast): yes Pre-Certification: All Sites: Pre-cert for Biologics or Small Molecules (route to rheumatology pharmacist pool p [phone]) Pharmacist Co-Management: Pharmacist Co-Management - Escalation & Maintenance Medication/Disease State Information: Diagnosis: Rheumatoid arthritis of multiple sites without rheumatoid factor [M06.09] Medication:Rinvoq: 15 mg once daily Failed or Intolerant to or Contraindicated: Cimzia, Humira, and Xeljanz Comments had reaction to humira, also received kineret and canakinumab Rheumatology Pharmacist Disease Modifying Antirheumatic Drug (DMARD) Co- Management (If Applicable) Minimum frequency patient should be seen in person for medication management: As appropriate per clinical condition and patient status By my signature, I understand that my patient will have medication therapy [facility] ([facility]) per established policies, procedures, and protocols. I also certify that this referral may serve as an initiation of service for the management of drug therapy in the above noted patient. [facility] providers will be responsible for scheduling patient visits, obtaining appropriate laboratory studies, and adjusting medication management therapy per patient's need, in addition to those roles spelled out in the clinic policy, procedures, and drug management protocols. I understand that the service provided by the [facility] is voluntary and have informed patient that they can refuse the service at their discretion. I am aware that the [facility] will provide me with a copy of the patient encounter via my [employer] In-Basket. I authorize the [facility] to carryout these activities on my behalf. I consider this program to be a necessary part of the patient's medical care. Shahriar Burnette MD documented in this encounter Plan of Treatment Upcoming Encounters Date Type Department Care Team (Late st Contact Info) Description 11/05/2024 8:15 AM EDT Imaging Radiology [address] [place] [phone] 11/06/2024 9:30 AM EDT Telemedicine Rheumatology, [place] [address] [place] [address] Agc5, Pharmacist Rheumatology [address] [place] [address] 11/09/2024 11:00 AM EDT Office Visit Gastroenterology, [facility] [address] [place] [phone] Starla Sheriff CRNP [address] [place] [address] 11/09/2024 3:20 PM EDT Office Visit Rheumatology [facility] [address] [place] [phone] Shahriar Burnette MD [facility] [place] [address] 01/04/2025 11:40 AM EDT Office Visit Family Practice [facility] [address] [facility] [place] [address] Payal Myers MD [address] [facility] [place] [address] 01/14/2025 1:00 PM EDT Office Visit Nephrology, [facility] [address] [facility] [place] [address] ZeYasemin jackson PA-C [address] [facility] [place] [address] 02/19/2025 3:00 PM EDT Office Visit Nephrology, [facility] [address] [facility] [place] [address] Ant Cardona MD [address] [facility] [place] [address] Scheduled Referrals Name Type Priority Associated Diagnoses Orde r Schedule PHARMACIST MEDS THERAPY MGMT REFERRAL OP Referral Within 30 days (routine) Seronegative inflammatory arthritis Ordered: 10/29/2024 Health Maintenance Due Date Last Done Comments COVID-19 Vaccine ( season) 2024 12/04/2020, 11/06/2020 Pap Smear 06/25/2025 06/25/2022, 02/11/2019 Depression Monitoring 09/11/2025 09/11/2024, 024 DTap/Tdap Vaccines (8 - Td or Tdap) 01/12/2031 01/12/2021, 01/30/2010, 09/25/2001, Additional history exists Hepatitis B Vaccine Completed 1997, 1997, 1997 HPV (Gardasil) Vaccine Completed , 05/13/2009, 02/28/2009 MENINGOCOCCAL (MENACTRA/MENVEO) Completed 02/04/2014, 01/30/2010 Gonorrhea / Chlamydia Screen Discontinued 09/10/2023, 11/17/2016 Influenza Vaccine (FLU shot) Completed 04/24/2024, 05/02/2020, 05/02/2020, Additional history exists Meningitis B Vaccine (Bexsero/Trumemba) Aged Out No longer eligible based on patient's age to complete this topic Pneumococcal Vaccine: Pediatrics (0 to 5 Years) and At-Risk Patients (6 to 18 Years and 19+ Years) Aged Out No longer eligib le based on patient's age to complete this topic documented as of this encounter Medical Devices Not on filedocumented as of this encounter Visit Diagnoses Diagnosis Seronegative inflammatory arthritis- Primary documented in this encounter Advance Directives * [...] Advance Directives occurred with: Patient Care Teams Support Director Relationship Specialty Start Date End Date Payal Myers MD [address] [place] [address] PCP - General Family Medicine 01/21/24 documented as of this encounter
--- OUTSIDE RECORDS SUMMARY | 2024-11-09 21:45 | External Medical Summary | Summary of Care ---
Author Name Unknown Organization [facility] Address [address] [place] [address] Phone [phone] Care Team Providers Care Travel Registered Nurse Icu Name Role Phone Payal Myers MD Primary Care Provider [phone] Reason for Visit * Reason Onset Date Comments Home Health 07/14/2024 Encounter Details Date Type Department Care Team (Late st Contact Info) Description 07/14/2024 Telephone Family Practice [facility] [address] [facility] [place] [address] Payal Myers MD [address] [place] [address] Home Health Allergies Active Allergy Reactions Criticality Noted Date Comments Adalimumab High 05/20/2024 Other Reaction(s): Chills and hot flashes Metoclopramide High 07/08/2024 Other Reaction(s): facial twitch Sulfasalazine Rash Medium 10/23/2023 documented as of this encounter (statuses as of 10/14/2024) Medications Ferrous Sulfate 325 (65 Fe) MG Oral Tablet Delayed Release Take 1 Tablet by mouth. Every other day. Active B-12 500 MCG Oral Tablet Take 2 Tablets by mouth in the morning. 05/23/20 24 Active Sodium Chloride 1 GM Oral Tablet Take 1 Tablet by mouth in the morning. Active JUNEL FE 08/10 1-20 MG-MCG per tablet 1 Tablet in the morning. 11/17/19 17 025 Discontinued(Me dication List Clean Up) FLUoxetine HCl 20 MG Oral Capsule (PROzac)Indica tions:LUDA (generalized anxiety disorder) Take 1 Capsule by mouth in the morning. 90 Capsule 3 01/16/20 24 025 Discontinued predniSONE 20 MG Oral Tablet (Deltasone) Take 2 Tablets by mouth daily for 1 day, THEN 1.5 Tablets daily for 5 days, THEN 1 Tablet daily for 5 days, THEN 0.5 Tablets daily for 5 days. 17 Tablet 4 2:46 PM EST 06/14/20 025 Discontinued(Me dication List Clean Up) Levothyroxine Sodium 88 MCG Oral Tablet (Levoxyl) Take 1 Tablet by mouth daily first thing in the morning. (at least 30 min prior to breakfast or other meds) 30 Tablet 4 2:46 PM EST 06/14/20 025 Discontinued(Me dication List Clean Up) Omeprazole 20 MG Oral Capsule Delayed Release (PriLOSEC) Take 1 Capsule by mouth in the morning. 30 Capsule 4 2:46 PM EST 06/13/20 025 Discontinued(Me dication List Clean Up) Sennosides 8.6 MG Oral Tablet Take 1 Tablet by mouth in the morning. 30 Tablet 4 2:46 PM EST 06/14/20 025 Discontinued(Me dication List Clean Up) Fenofibrate 160 MG Oral Tablet (Lofibra) Take 1 Tablet by mouth in the morning. 30 Tablet 4 2:46 PM EST 06/14/20 025 Discontinued(Me dication List Clean Up) HYDROmorphone HCl 2 MG Oral Tablet (Dilaudid) Take 1 Tablet by mouth every 4 hours as needed for moderate pain 30 Tablet 4 2:46 PM EST 06/13/20 025 Discontinued(Me dication List Clean Up) Hydrocortisone 2.5 % External Cream Apply to chest and face twice daily for 2 weeks. 20 g 4 2:46 PM EST 06/13/20 025 Discontinued(Me dication List Clean Up) Metoclopramide HCl 10 MG Oral Tablet (Reglan) Take 1 Tablet by mouth in the morning and 1 Tablet at noon and 1 Tablet in the evening and 1 Tablet before bedtime. 025 Discontinued(Me dication List Clean Up) Magnesium Oxide 400 MG Oral Tablet Take 2 Tablets by mouth in the morning and 2 Tablets before bedtime. 025 Discontinued(Re fill) Chriss-Citrate Plus Vitamin D 250-2.5 MG-MCG Oral Tablet (Calcium Citrate-Vitami n D) Take by mouth 2 times a day. 025 Discontinued Calcitriol 0.5 MCG Oral Capsule (Rocaltrol) Take 1 Capsule by mouth in the morning. 025 Discontinued(Re fill) Megestrol Acetate 40 MG/ML Oral Suspension (Megace) Take 10 mL by mouth in the morning and 10 mL before bedtime. 07/09/20 025 Discontinued Potassium Chloride 20 MEQ Oral Packet Take 40 mEq by mouth in the morning. 025 Discontinued(Nd dication List Clean Up) Tofacitinib Citrate ER 11 MG Oral Tablet Extended Release 24 Hour (Xeljanz XR) Take 1 tablet by mouth in the morning. 30 Tablet 5 11:36 AM EST 07/13/20 025 Discontinued(Re fill) documented as of this encounter (statuses as of 10/14/2024) Active Problems Problem Noted Date Diagnosed Date Other chronic pancreatitis 08/17/2024 Recurrent major depressive disorder 08/17/2024 Hypocalcemia 06/07/2024 Isolated proteinuria without specific morphologi c lesion 06/05/2024 Undifferentiated inflammatory polyarthritis 05/22 Anemia of chronic disease 06/02/2024 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 Iron deficiency 02/28/2024 LUDA (generalized anxiety disorder) 10/09/2023 documented as of this encounter (statuses as of 10/14/2024) Resolved Problems Problem Noted Date Diagnosed Date Resolved Date Ileus 06/08/2024 06/13/2024 Rash and nonspecific skin eruption 06/04/2024 09/24/2024 Chest pain, non-cardiac 06/04/202405/23 Idiopathic acute pancreatitis 06/04/2024 06/13/2024 MAS (macrophage activation syndrome) 06/03/2024 08/17/2024 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 Gallstone pancreatitis 06/02/202406/13 Seronegative inflammatory arthritis 10/09/2023 07/10/2024 documented as of this encounter (statuses as of 10/14/2024) Immunizations Name Administration Dates Next Due COVID-19 [...] encounter Miscellaneous Notes * Telephone Encounter - Danya Chappell LPN - 07/14/2024 9:43 AM EST Jeanie butler from [facility]. Sending over a new start of care date for 07/20/24 documented in this encounter Plan of Treatment Upcoming Encounters Date Type Department Care Team (Late st Contact Info) Description 11/05/2024 8:15 AM EDT Imaging Radiology [facility] [facility] [address] [place] [phone] 11/09/2024 11:00 AM EDT Office Visit Gastroenterology, [facility] [address] [place] [phone] Starla Sheriff CRNP [address] [place] [address] 11/09/2024 3:20 PM EDT Office Visit Rheumatology [facility] [address] [place] [phone] Neal Vang MD [facility] [place] [address] 01/04/2025 11:40 AM EDT Office Visit Family Practice [facility] [address] [place] [address] Payal Myers MD [address] [facility] [place] [address] 01/14/2025 1:00 PM EDT Office Visit Nephrology, [facility] [address] [place] [address] Yasemin Villaseñor PA-C [address] [place] [address] 02/19/2025 3:00 PM EDT Office Visit Nephrology, [facility] [address] [place] [address] Ant Cardona MD [address] [facility] [place] [address] Health Maintenance Due Date Last Done Comments [...] Advance Directives occurred with: Patient Care Teams Travel Registered Nurse Icu Relationship Specialty Start Date End Date Payal Myers MD [address] [place] [address] PCP - General Family Medicine 01/21/24 documented as of this encounter
--- OUTSIDE RECORDS SUMMARY | 2024-11-09 21:45 | External Medical Summary | Summary of Care ---
Author Name Unknown Organization [facility] Address [address] [place] [address] Phone [phone] Care Team Providers Care Log Cutter Name Role Phone Payal Myers MD Primary Care Provider [phone] Reason for Referral * Evaluate & Treat - Unlimited Visits (Within 30 days (routine)) - Authorized Specialty Diagnoses / Procedures Referred By Conttaryn t Referred To Contact Pharmacist / Pharmacy Diagnoses Seronegative inflammatory arthritis Shahriar Burnette MD [address] [place] [address] Phone: tel: fax: Referral ID Status Reason Start Date Expiration Date Visits Requested Visits Authorized [id number] Authorized Specialty Services Required 10/29/2024 04/27/2025 99 [...] st Contact Info) Description 10/29/2024 Telephone Rheumatology [facility] [address] [place] [phone] Shahriar Burnette MD [address] [facility] [address] Precert Approved (RINVOQ ER 15 MG TABLET /) Allergies Active Allergy Reactions Criticality Noted Date Comments Adalimumab High 05/20/2024 Other Reaction(s): Chills and hot flashes Metoclopramide High 07/08/2024 Other Reaction(s): facial twitch Sulfasalazine Rash Medium 10/23/2023 documented as of this encounter (statuses as of 11/06/2024) Medications Ferrous Sulfate 325 (65 Fe) MG [...] not taking.Reported on 09/21/2024 Ergocalciferol 1.25 MG (73509 UT) Oral Capsule (Vitamin D2(Drisdol)) Take 1 [...] as of this encounter (statuses as of 11/06/2024) Active Problems Problem Noted Date Diagnosed Date Other chronic pancreatitis 08/17/2024 Recurrent major depressive disorder 08/17/2024 Hypocalcemia 06/07/2024 Isolated proteinuria without specific morphologi c lesion 06/05/2024 Undifferentiated inflammatory polyarthritis 05/22 Anemia of chronic disease 06/02/2024 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 Iron deficiency 02/28/2024 LUDA (generalized anxiety disorder) 10/09/2023 documented as of this encounter (statuses as of 11/06/2024) Resolved Problems Problem Noted Date Diagnosed Date Resolved Date Ileus 06/08/2024 06/13/2024 Rash and nonspecific skin eruption 06/04/2024 09/24/2024 Chest pain, non-cardiac 06/04/202405/23 Idiopathic acute pancreatitis 06/04/2024 06/13/2024 MAS (macrophage activation syndrome) 06/03/2024 08/17/2024 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 Gallstone pancreatitis 06/02/202406/13 Seronegative inflammatory arthritis 10/09/2023 07/10/2024 documented as of this encounter (statuses as of 11/06/2024) Immunizations Name Administration Dates Next Due COVID-19 [...] Answer Date Recorded PHQ Adult Total Score 18 11/03/2024 Hunger Vital Sign Answer Date Recorded Within [...] of Assessment Author No 06/02/2024 7:41 PM Elanie Hatch RN * Because of a physical, [...] encounter Miscellaneous Notes * Telephone Encounter - Shahriar Burnette MD - 11/06/2024 11:05 AM EDT I think ok to start as she is already on xeljanz We can follow labs closely Shahriar Burnette MD * Telephone Encounter - Alex Canela [facility] - 11/06/2024 10:[address] Burnette, Rinvoq is approved. On review, patient's absolute lymphocyte count is 400, and it is recommended not to start Rinvoq if it is <500. May you review and advise if it is okay to proceed? * Telephone Encounter - Cassidy Rivera PHARM Tech - 11/02/2024 3:53 PM EDT Rheumatology Pre-Certification Response Approved - CR Patient - Can be filled at [facility] ([facility] will send prescription after appointment) Thank you, Jose Rivera Manager Shipping [facility] ([facility]) 11/02/2024,3:53 PM * Telephone Encounter - Cassidy Rivera PHARM Tech - 11/02/2024 3:52 PM EDT Patient Phone Numbers Spoke with patient to schedule [facility] appointment for Medication Education. Appointment scheduled as noted below. 11/06/2024 Thank you, Jose Rivera Manager Shipping [facility] ([facility]) 11/02/2024,3:52 PM * Telephone Encounter - Leona Minaya [facility] - 10/29/2024 12:54 PM EDT Rheumatology Pre-Certification Request Medication/Disease State Information: Diagnosis: Rheumatoid arthritis of multiple sites without rheumatoid factor [M06.09] Patient Age: [age] year old Medication/Dose/Route/Interval: Rinvoq: 15 mg once daily Site of Care: Self-Administered Insurance considerations: [facility] Commercial: Formulary reviewed and medication selection [...] severe, and/or uncontrolled infection Rheumatology Office Information: Supervisor Sandblaster: SHAHRIAR BURNETTE Rheumatology Pharmacist Appointment Request Department & Provider: Rheumatology [address] [[id number]] - Pharmacist #1 Rheumatology [facility] [[id number]] Patient to be scheduled for visit type: Telephonic Medicine Visit [[id number]] Length of visit: 30 minutes Reason for visit: Med Edu: rinvoq Time Frame: within 1 weeks Compass Peggy Specific Scheduling Guidance Diagnosis: Rheumatoid Arthritis If medication is approved and able to be filled at [facility], please schedule for 60 minutes ([facility] will send Rx) Request routed to [facility] Specialty Scheduling Pool ([id number]) Please route this encounter back to Rheum Pharmacist Refill Pool/Class [p [phone]] if unable to schedule patient after 3 attempts. Thank you and have a wonderful day, Leona Minaya RP * Telephone Encounter - Shahriar Burnette MD - 10/29/2024 12:31 PM EDT Rheumatology Education, Pre-Certification, and/or Pharmacist Co-Management Request Medication Education (please select yes for all new starts, EXCEPT prolia, evenity, reclast): yes Pre-Certification: All Sites: Pre-cert for Biologics or Small Molecules (route to rheumatology pharmacist pool p [phone]) Pharmacist Co-Management: Pharmacist Co-Management - Escalation & [...] will have [facility] per established policies, procedures, and protocols. I also certify that this referral may serve as an initiation of service for the management of drug therapy in the above noted patient. [facility] providers will be responsible for scheduling patient visits, obtaining appropriate laboratory studies, and adjusting medication management therapy per patient's need, in addition to those roles spelled out in the clinic policy, procedures, and drug management protocols. I understand that the service provided by the [facility] is voluntary and have informed patient that they can refuse the service at their discretion. I am aware that the [facility] Clinic will provide me with a copy of the patient encounter via my [employer] In-Basket. I authorize the [facility] to carryout these activities on my behalf. I consider this program to be a necessary part of the patient's medical care. Shahriar Burnette MD documented in this encounter Plan of Treatment Upcoming Encounters Date Type Department Care Team (Late st Contact Info) Description 11/09/2024 11:00 AM EDT Office Visit Gastroenterology, [facility] [address] [place] [phone] Starla Sheriff CRNP [address] [place] [address] 11/09/2024 3:20 PM EDT Office Visit Rheumatology [facility] [address] [place] [phone] Shahriar Burnette MD [address] [place] [address] [place] [address] 01/04/2025 11:40 AM EDT Office Visit Family Practice [facility] [place] [address] [place] [address] Payal Myers MD [address] [place] [address] 01/14/2025 1:00 PM EDT Office Visit Nephrology, [facility] [place] [address] [place] [address] Yasemin Villaseñor PA-C [address] [place] [address] 02/19/2025 3:00 PM EDT Office Visit Nephrology, [facility] [place] [address] [place], [place] [address] Ant Cardona MD [address] [place] [address] Scheduled Referrals Name Type Priority Associated Diagnoses Orde r Schedule PHARMACIST MEDS THERAPY MGMT REFERRAL OP Referral Within 30 days (routine) Seronegative inflammatory arthritis Ordered: 10/29/2024 Health Maintenance Due Date Last Done Comments COVID-19 Vaccine ( season) 2024 12/04/2020, 11/06/2020 Pap Smear 06/25/2025 06/25/2022, 02/11/2019 Depression Monitoring 11/03/2025 11/03/2024, 024 DTap/Tdap Vaccines (8 - Td or [...] Advance Directives occurred with: Patient Care Teams Log Cutter Relationship Specialty Start Date End Date Payal yMers MD [address] [place] [address] PCP - General Family Medicine 01/21/24 documented as of this encounter
--- OUTSIDE RECORDS SUMMARY | 2024-11-09 21:45 | External Medical Summary | Summary of Care ---
Author Name Unknown Organization [facility] Address [address] [place] [address] Phone [phone] Care Team Providers Care Dry Kiln Loader Name Role Phone Payal Myers MD Primary Care Provider [phone] Encounter Details Date Type Department Care Team (Late st Contact Info) Description 11/06/2024 9:30 AM EDT [facility] [address] [place] [address] Agc5, Pharmacist Rheumatology [facility] [place] [place] [address] Rheumatoid arthritis of multiple sites without rheumatoid factor (HCC)* Allergies Active Allergy Reactions Criticality Noted Date [...] not taking.Reported on 09/21/2024 Ergocalciferol 1.25 MG (45075 UT) Oral Capsule (Vitamin D2(Drisdol)) Take 1 Capsule by mouth once a week. 12 Capsule 3 5 Active fluvoxaMINE Maleate 25 MG Oral Tablet (Luvox)Indicati ons:Moderate episode of recurrent major depressive disorder (HCC),LUDA (generalized anxiety disorder) Take 1 Tablet by mouth every night at bedtime. Active Magic Swizzle (Lidocaine-[place] dryl-Maalox) oral solution Swish and spit 15 mL in the morning and 15 mL before bedtime. 300 mL 5 Active Fenofibrate 145 MG Oral Tablet (Tricor) Take 1 Tablet by mouth in the morning. 30 Tablet 2 Active Calcitriol 0.5 MCG Oral Capsule (Rocaltrol) Take 1 Capsule by mouth in the morning. 30 Capsule 2 5 Active Rinvoq 15 MG Oral Tablet Extended Release 24 Hour (Upadacitinib ER)Indications: Rheumatoid arthritis of multiple sites without rheumatoid factor (HCC) Take 1 tablet by mouth in the morning. 30 Tablet 2 5 Active documented as of this encounter (statuses [...] documented in this encounter Progress Notes * Kvng Canela, [facility] - 11/06/2024 1:[address] Burnette, okay to proceed. Spoke with patient and reviewed plan. Symptoms are significantly affecting health and quality of life. Denies SI/HI during the call. "SHIPPING DETAILS Prescribed medication: Medication: Rinvoq: 15 mg once daily Shipment date: 11/11/24 Delivery method: Specialty Mail Location Medication Delivered too? [address] [facility] [address]" * Kvng Canela RPh - 11/06/2024 10:38 AM EDT Agree with the registered pharmacy technician note. Patient has indeterminate quantiferon. On chart review (11/18/23 encounter), Dr. Burnette reviewed with ID who stated the TB test is negative. On chart review, absolute lymphocyte count is <500. Will discuss with provider. Kvng Canela RPh * Arthur Wilson, PHARM Student - 11/06/2024 9:30 AM EDT Clinical Pharmacy Service (Rheumatology): Medication Education ASSESSMENT No diagnosis found. Hep B Status: No TB Status: No Zoster Vaccine Status: No Malignancy Status: No History of VTE: No History of Hyperlipidemia: No History of Diverticulitis/Diverticulosis:No History of NM or procedure done to the heart:No History of Stroke: No HEALTH MAINTENANCE: Immunizations recommended: Influenza Labs recommended: no PLAN OF ACTION Medication Regimen: START Rinvoq 15mg daily Follow-Up Appointment: Pharmacist: 0 month (New Start) Physician: 6 month - scheduled for 11/09/24 EDUCATION Medication Information: IRWIN Inhibitors The following information was verbally provided to the patient and afterwards, a copy of the ACR medication guide was provided to supplement with more extensive information: Upadacitinib (Brand Name: Rinvoq), is within a class of medication known as IRWIN Inhibitors that block further formation of inflammatory markers within your immune system. This medication is availablein pill form and will be taken once daily, alone or with other medications. Side effects include but are not limited to nausea, increase in cholesterol levels, GI perforations, liver enzyme elevations possible respiratory infections, malignancies, renal disease, anemia, and DVTs/PE. Because this medication can lower the ability of your immune system to fight infections, there is an increased riskof developing infections, including TB or fungal infections. If any of the above-mentioned side effects occur, please inform your physician or rheumatology pharmacist so that we can take the next appropriate steps in your care. Please make your physician aware if you are or planning to become , have kidney/liver damage, history of heart failure, history of GI disease (diverticulitis/diverticulosis), historyof MS or any demyelinating disease, thrombosis, any active infections or malignancies, planning to get any vaccinations, or if you have new or changed medications on your medication list as these factors may impact your care plan. This medication may take up to 6-12 weeks to see an effect on your joints. For your safety, we will monitor you routinely through a series of blood work. For further inquiries, please refer to the medication information provided to you as well as your rheumatology care team. Safety warning discussed with the patient about potential increased risk of infections, cancer, blood clots, and CV events. After connecting to the patient via telephone, the patient was identified by name and date of . Patient was then informed that this was a telephone call only visit. The patient agreed to participate. Visit Disposition: Routine follow-up Total call duration was 40 minutes. Clinical Pharmacy Service (Rheumatology): Medication Education Rheumatology Provider: SHAHRIAR BURNETTE Visit: 0 month (New Start) After providing patient with a thorough explanation and introduction to program, patient agrees to program/counseling. PLAN OF ACTION Medication Regimen: START Rinvoq: 15 mg once daily Patient still taking Xeljanz until she receives Rinvoq DISEASE ASSESSMENT Diagnosis: Rheumatoid Arthritis RAPID3 Stage: not applicable DAS28: not applicable Treatment History: Patient takes tylenol Pain Scale: Severe [7-10] (9) Impacting Comorbidities: Anxiety Impacting Social Situations and Behaviors: Transportation Situation Activities of Daily Living Assessment: cook, drive, exercise or play sports, socialize with friends, and travel (Hard to use her hands and her leg) Patient Treatment Goals: patient specific goal 1: To feel better Patient Care Optimization: exercise, physical therapy, keep lab test appointments, and keep medicalappointments Disease Status Assessment: Progressing Comorbidity Assessment: no impact New Intake Referral: other: Not applicable Pharmacist Treatment Goals: manage vaccinations, ensure patient has pharmacy contact information, schedule regular follow-up to confirm medication adherence, and schedule regular follow-up to monitorfor current treatment related serious adverse events PATIENT EDUCATION Drug indications and pharmacology: Reviewed Medication specifics: Reviewed Administration precautions: Reviewed Common adverse events: Reviewed Severe adverse reactions: Reviewed : Reviewed Lactating mother: Reviewed Drug/OTC interactions: Reviewed Inadequate therapeutic response: Reviewed Additional warnings: Reviewed Adherence Adherence Tools Used: Other: Patient says she just remembers PROMIS Global-10: Would you say your health is: 2=fair Would you say your quality of life is: 2=fair How would you rate your physical health? 2=fair How would your rate your mental health, including your mood and ability to think? 2=fair How would you rate your satisfaction with your social activities and relationships? 2=fair To what extent are you able to carry out your everyday physical activities? 2=a little Please rate how well you carry out you usual social activities and roles. 2=fair How would you rate your pain on average (0-10)? 9 How would you rate your fatigue on average? 2=severe How often have you been bothered by emotional problems such as feeling anxious, depressed or irritable? 2=often SHIPPING DETAILS Prescribed medication: Medication: Rinvoq: 15 mg once daily Shipment date: 11/11/24 Delivery method: Specialty Mail Location Medication Delivered too? [address] [facility] [address] EDUCATION Required Screening Information: PPD/Quant: completed & reviewed CBC/D: completed & reviewed CMP: completed & reviewed Acute Hepatitis Panel: completed & reviewed Hep B Surface Antibody: completed & reviewed Follow-Up Appointment(s): Pharmacist: 3 month Physician: 6 month - scheduled for 11/09/24 Arthur Wilson, PHARM Student [facility] Clinical Pharmacist Rheumatology Department 11/06/2024,9:39 AM documented in this encounter Miscellaneous Notes * Addendum Note - Kvng Canela RPh - 11/06/2024 1:11 PM EDTAddended by: KVNG CANELA on: 11/06/2024 01:11 PM Modules accepted: Orders documented in this encounter Plan of Treatment Upcoming Encounters Date Type Department Care Team (Late st Contact Info) Description 11/09/2024 11:00 AM EDT Office Visit Gastroenterology, [facility] [address] [place] [phone] Starla Sheriff CRNP [address] [place] [address] 11/09/2024 3:20 PM EDT Office Visit Rheumatology [facility] [address] [place] [phone] Shahriar Burnette MD [facility] [place] [address] 01/04/2025 11:40 AM EDT Office Visit Family Practice [facility] [place] [address] [place] [address] Payal Myers MD [address] [place] [address] 01/14/2025 1:00 PM EDT Office Visit Nephrology, [facility] [place] [address] [place] [address] Yasemin Villaseñor PA-C [address] [place] [address] 02/19/2025 3:00 PM EDT Office Visit Nephrology, [facility] [address] [place] [address] Ant Cardona MD [address] [facility] [place] [address] Health Maintenance Due Date Last Done Comments [...] as of this encounter Visit Diagnoses Diagnosis Rheumatoid arthritis of multiple sites without rheumatoid factor (HCC)- Primary Rheumatoid arthritis documented in this encounter Advance Directives * [...] Advance Directives occurred with: Patient Care Teams Dry Kiln Loader Relationship Specialty Start Date End Date Payal Myers MD [address] [place] [address], [place] [address] PCP - General Family Medicine 01/21/24 documented as of this encounter
--- OUTSIDE RECORDS SUMMARY | 2024-11-09 21:45 | External Medical Summary | Summary of Care ---
Author Name Unknown Organization [facility] Address [address] [place] [address] Phone [phone] Care Team Providers Care Parts Assembler Name Role Phone Payal Myers MD Primary Care Provider [phone] Encounter Details Date Type Department Care Team (Late st Contact Info) Description 11/02/2024 Orders Only Outcomes Research Department [address] [place], [place] [id number] Viv Landeros CHRA [employer] Research Other*[id number] Allergies Active Allergy Reactions Criticality Noted Date Comments Adalimumab High 05/20/2024 Other Reaction(s): Chills and hot flashes Metoclopramide High 07/08/2024 Other Reaction(s): facial twitch Sulfasalazine Rash Medium 10/23/2023 documented as of this encounter (statuses as of 11/02/2024) Medications Ferrous Sulfate 325 (65 Fe) MG [...] not taking.Reported on 09/21/2024 Ergocalciferol 1.25 MG (82694 UT) Oral Capsule (Vitamin D2(Drisdol)) Take 1 Capsule by mouth once a week. 12 Capsule 3 5 Active fluvoxaMINE Maleate 25 MG Oral Tablet (Luvox)Indicati ons:Moderate episode of recurrent major depressive disorder (HCC),LUDA (generalized anxiety disorder) Take 1 Tablet by mouth every night at bedtime. Active Magic Swizzle (Lidocaine-[place] dryl-Maalox) oral solution Swish and spit 15 mL in the morning and 15 mL before bedtime. 300 mL 5 Active Fenofibrate 145 MG Oral Tablet (Tricor) Take 1 Tablet by mouth in the morning. 30 Tablet 2 5 Active Calcitriol 0.5 MCG Oral Capsule (Rocaltrol) Take 1 Capsule by mouth in the morning. 30 Capsule 2 5 Active documented as of this encounter (statuses as of 11/02/2024) Active Problems Problem Noted Date Diagnosed Date Other chronic pancreatitis 08/17/2024 Recurrent major depressive disorder 08/17/2024 Hypocalcemia 06/07/2024 Isolated proteinuria without specific morphologi c lesion 06/05/2024 Undifferentiated inflammatory polyarthritis 05/22 Anemia of chronic disease 06/02/2024 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 Iron deficiency 02/28/2024 LUDA (generalized anxiety disorder) 10/09/2023 documented as of this encounter (statuses as of 11/02/2024) Resolved Problems Problem Noted Date Diagnosed Date Resolved Date Ileus 06/08/2024 06/13/2024 Rash and nonspecific skin eruption 06/04/2024 09/24/2024 Chest pain, non-cardiac 06/04/202405/23 Idiopathic acute pancreatitis 06/04/2024 06/13/2024 MAS (macrophage activation syndrome) 06/03/2024 08/17/2024 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 Gallstone pancreatitis 06/02/202406/13 Seronegative inflammatory arthritis 10/09/2023 07/10/2024 documented as of this encounter (statuses as of 11/02/2024) Immunizations Name Administration Dates Next Due COVID-19 [...] Description 11/05/2024 8:15 AM EDT [facility] [address] [place] [phone] 11/09/2024 11:00 AM EDT Office Visit Gastroenterology, [facility] [address] [place] [phone] Starla Sheriff CRNP [address] [place] [address] 11/09/2024 3:20 PM EDT Office Visit Rheumatology [facility] [address] [place] [phone] Neal Vang MD [address] [facility] [place] [address] 01/04/2025 11:40 AM EDT Office Visit Family Practice [facility] [place] [address] [facility] [place] [address] Payal Myers MD [address] [facility] [place] [address] 01/14/2025 1:00 PM EDT Office Visit Nephrology, [facility] [address] [facility] [place] [address] ZemaitisYasemin PA-C [address] [facility] [place] [address] 02/19/2025 3:00 PM EDT Office Visit Nephrology, [facility] [address] [facility] [place] [address] Ant Cardona MD [address] [facility] [place] [address] Scheduled Orders Name Type Priority Associated Diagnoses Orde r Schedule MYCODE SUBSEQUENT ADULT Lab Routine [employer] Other*[id number] Every 6 Months for 2 Occurrences starting 11/02/2024 until 11/22/2025 Health Maintenance Due Date Last Done Comments [...] as of this encounter Visit Diagnoses Diagnosis [employer] Other*[id number] documented in this encounter Advance Directives * [...] Advance Directives occurred with: Patient Care Teams Parts Assembler Relationship Specialty Start Date End Date Payal Myers MD [address] [place] [address] PCP - General Family Medicine 01/21/24 documented as of this encounter
--- OUTSIDE RECORDS SUMMARY | 2024-11-09 21:45 | External Medical Summary ---
Author Name Unknown Address Unknown Organization K0G:[facility] ALEJANDRO [address] [place] [address] Laboratory Report Ordering Provider Test Date Status MARTHA CASTELLANOS 11/09/2024 12:00:12 Final Observation Date Value Abnormality Reference (Units ) Status SYNC LEUKOCYTES IN BLOOD BY AUTOMATED COUNT 11/09/2024 12:00:12 3.88 Below low normal 4.00-10.80 (K/uL) Final Neutrophils/100 leukocytes in Blood by Manual count 11/09/2024 12:00:12 95.0 Above high normal 40.0-75.0 (%) Final Lymphocytes/100 leukocytes in Blood by Manual count 11/09/2024 12:00:12 3.0 Below low normal 18.0-42.0 (%) Final Monocytes/100 leukocytes in Blood by Manual count 11/09/2024 12:00:12 2.0 1.0-11.0 (%) Final Neutrophils [#/volume] in Blood by Manual count 11/09/2024 12:00:12 3.69 1.80-7.70 (K/uL) Final Lymphocytes [#/volume] in Blood by Manual count 11/09/2024 12:00:12 0.12 Below low normal 1.00-4.80 (K/uL) Final Monocytes [#/volume] in Blood by Manual count 11/09/2024 12:00:12 0.08 0.00-1.10 (K/uL) Final Nucleated erythrocytes/100 leukocytes [Ratio] in Blood by Automated count 11/09/2024 12:00:12 Final Performing Location [facility] [employer] [address] [place] [address]
--- OUTSIDE RECORDS SUMMARY | 2024-11-09 21:45 | External Medical Summary | Summary of Care ---
Author Name Unknown Organization [facility] Address [address] [place] [address] Phone [phone] Care Team Providers Care Atmospheric Scientist Name Role Phone Payal Myers MD Primary Care Provider [phone] Reason for Referral * Evaluate & Treat - Unlimited Visits (Within 30 days (routine)) - Authorized Specialty Diagnoses / Procedures Referred By Conttaryn t Referred To Contact Pharmacist / Pharmacy Diagnoses Seronegative inflammatory arthritis Shahriar Burnette MD [address] [place] [address] Phone: tel: fax: Referral ID Status Reason Start Date Expiration Date Visits Requested Visits Authorized [id number] Authorized Specialty Services Required 10/29/2024 04/27/2025 99 [...] st Contact Info) Description 10/29/2024 Telephone Rheumatology [facility] [address] [place] [phone] Shahriar Burnette MD [address] [facility] [address] Precert Approved (RINVOQ ER 15 [...] not taking.Reported on 09/21/2024 Ergocalciferol 1.25 MG (61391 UT) Oral Capsule (Vitamin D2(Drisdol)) Take 1 [...] MD * Telephone Encounter - Alex Canela [facility] - 11/06/2024 10:[address] Burnette, [...] CR Patient - Can be filled at [facility] ([facility] will send prescription after appointment) Thank you, Jose Rivera Assembly Line Worker [facility] 11/02/2024,3:53 PM * Telephone Encounter - Cassidy Rivera PHARM Tech - 11/02/2024 3:52 PM EDT Patient Phone Numbers Spoke with patient to schedule [facility] appointment for Medication Education. Appointment scheduled as noted below. 11/06/2024 Thank you, Jose Rivera Assembly Line Worker [facility]) 11/02/2024,3:52 PM * Telephone Encounter - Leona Minaya [facility] - 10/29/2024 12:54 PM EDT Rheumatology Pre-Certification Request Medication/Disease State Information: Diagnosis: Rheumatoid arthritis of multiple sites without rheumatoid factor [M06.09] Patient Age: [age] year old Medication/Dose/Route/Interval: Rinvoq: 15 mg once daily Site of Care: Self-Administered Insurance considerations: [facility] Commercial: Formulary reviewed and medication selection on [...] severe, and/or uncontrolled infection Rheumatology Office Information: Salon Manager: SHAHRIAR BURNETTE Rheumatology Pharmacist Appointment Request Department & Provider: Rheumatology [address] [[id number]] - Pharmacist #1 Rheumatology [facility] [[id number]] Patient to be scheduled for visit type: Telephonic Medicine Visit [[id number]] Length of visit: 30 minutes Reason for visit: Med Edu: rinvoq Time Frame: within 1 weeks Compass Peggy Specific Scheduling Guidance Diagnosis: Rheumatoid Arthritis If medication is approved and able to be filled at [facility], please schedule for 60 minutes ([facility] will send Rx) Request routed to [facility] Specialty Scheduling Pool ([id number]) Please route this encounter back to Rheum Pharmacist Refill Pool/Class [p [phone]] if unable to schedule patient after 3 [...] Molecules (route to rheumatology pharmacist pool p [phone]) Pharmacist Co-Management: Pharmacist Co-Management - Escalation & [...] will have medication therapy managed [facility] per established policies, procedures, and protocols. I also certify that this referral may serve as an initiation of service for the management of drug therapy in the above noted patient. [facility] providers will be responsible for scheduling patient visits, obtaining appropriate laboratory studies, and adjusting medication management therapy per patient's need, in addition to those roles spelled out in the clinic policy, procedures, and drug management protocols. I understand that the service provided by the [facility] is voluntary and have informed patient that they can refuse the service at their discretion. I am aware that the [facility] Clinic will provide me with a copy of the patient encounter via my [employer] In-Basket. I authorize the [facility] to carryout these activities on my behalf. I consider this program to be a necessary part of the patient's medical care. Shahriar Burnette MD documented in this encounter Plan of Treatment Upcoming Encounters Date Type Department Care Team (Late st Contact Info) Description 11/09/2024 11:00 AM EDT Office Visit Gastroenterology, [facility] [address] [place] [phone] Starla Sheriff CRNP [address] [place] [address] 11/09/2024 3:20 PM EDT Office Visit Rheumatology [facility] [address] [place] [phone] Shahriar Burnette MD [address] [place] [address] [place] [address] 01/04/2025 11:40 AM EDT Office Visit Family Practice [facility] [place] [address] [place] [address] Payal Myers MD [address] [place] [address] 01/14/2025 1:00 PM EDT Office Visit Nephrology, [facility] [address] [place] [address] Yasemin Villaseñor PA-C [address] [place] [place] [address] 02/19/2025 3:00 PM EDT Office Visit Nephrology, [facility] [address] [place], [place] [address] Ant Cardona MD [address] [place] [address] Scheduled Referrals Name Type Priority Associated Diagnoses [...] Advance Directives occurred with: Patient Care Teams Atmospheric Scientist Relationship Specialty Start Date End Date Payal Myers MD [address] [place] [address] PCP - General Family Medicine 01/21/24 documented as of this encounter
--- OUTSIDE RECORDS SUMMARY | 2024-11-09 21:45 | External Medical Summary | Summary of Care ---
Author Name Unknown Organization [facility] Address [address] [place] [address] Phone [phone] Care Team Providers Care Geoscience Professor Name Role Phone Payal Myers MD Primary Care Provider [phone] Encounter Details Date Type Department Care Team (Late st Contact Info) Description 11/06/2024 9:30 AM EDT [facility] [address] [place] [address] Agc5, Pharmacist Rheumatology [facility][note 3] [place] [address] Rheumatoid arthritis of multiple sites without rheumatoid [...] not taking.Reported on 09/21/2024 Ergocalciferol 1.25 MG (99488 UT) Oral Capsule (Vitamin D2(Drisdol)) Take 1 Capsule by mouth once a week. 12 Capsule 3 5 Active fluvoxaMINE Maleate 25 MG Oral Tablet (Luvox)Indicati ons:Moderate episode of recurrent major depressive disorder (HCC),LUDA (generalized anxiety disorder) Take 1 Tablet by mouth every night at bedtime. Active Magic Swizzle (Lidocaine-[place] dryl-Maalox) oral solution Swish and spit 15 [...] sites without rheumatoid factor (HCC) Take 1 Tablet by mouth in the [...] encounter Progress Notes * Kvng Canela, [facility] - 11/06/2024 1:[address] Burnette, okay to proceed. Spoke with patient and reviewed plan. Symptoms are significantly affecting health and quality of life. Denies SI/HI during the call. "SHIPPING DETAILS Prescribed medication: Medication: Rinvoq: 15 mg once daily Shipment date: 11/11/24 Delivery method: Specialty Mail Location Medication Delivered too? [address] [facility] [address]" * Kvng Canela RPh - 11/06/2024 10:38 AM EDT Agree with the pharmacy informatics manager note. Patient has indeterminate quantiferon. On chart [...] Hyperlipidemia: No History of Diverticulitis/Diverticulosis:No History of AL or procedure done to the heart:No History [...] Specialty Mail Location Medication Delivered too? [address] [facility] [address] EDUCATION Required Screening Information: PPD/Quant: completed & reviewed CBC/D: completed & reviewed CMP: completed & reviewed Acute Hepatitis Panel: completed & reviewed Hep B Surface Antibody: completed & reviewed Follow-Up Appointment(s): Pharmacist: 3 month Physician: 6 month - scheduled for 11/09/24 Arthur Wilson, PHARM Student [facility] Clinical Pharmacist Rheumatology Department 11/06/2024,9:39 AM documented in this encounter Miscellaneous Notes * Addendum Note - Kvng Canela RPh - 11/06/2024 1:11 PM EDTAddended by: KVNG CANELA on: 11/06/2024 01:11 PM Modules accepted: Orders documented in this encounter Plan of Treatment Upcoming Encounters Date Type Department Care Team (Late st Contact Info) Description 11/09/2024 11:00 AM EDT Office Visit Gastroenterology, [facility] [address] [place] [phone] Starla Sheriff CRNP [address] [place] [address] 11/09/2024 3:20 PM EDT Office Visit Rheumatology [facility] [address] [place] [phone] Shahriar Burnette MD [facility] [place] [address] 01/04/2025 11:40 AM EDT Office Visit Family Practice [facility] [place] [address] [place] [address] Payal Myers MD [address] [place] [address] 01/14/2025 1:00 PM EDT Office Visit Nephrology, [facility] [address] [place] [address] Yasemin Villaseñor PA-C [address] [place] [address] 02/19/2025 3:00 PM EDT Office Visit Nephrology, [facility] [address] [place] [address] Ant Cardona MD [address] [facility] [place] [address] Health Maintenance Due Date Last Done Comments [...] Advance Directives occurred with: Patient Care Teams Geoscience Professor Relationship Specialty Start Date End Date Payal Myers MD [address] [place] [address], [place] [address] PCP - General Family Medicine 01/21/24 documented as of this encounter
--- OUTSIDE RECORDS SUMMARY | 2024-11-09 21:46 | External Medical Summary | Summary of Care ---
Author Name Unknown Organization [facility] Address [address] [place] [address] Phone [phone] Care Team Providers Care Socially Responsible Investment Adviser Name Role Phone Payal Myers MD Primary Care Provider [phone] Reason for Visit * Reason Comments eRx-Medication Refill Encounter Details Date Type Department Care Team (Late st Contact Info) Description 10/02/2024 Refill Family Practice [facility] 200 [facility] [place] [address] Payal Myers MD [address] [facility] [place] [address] Allergies Active Allergy Reactions Criticality Noted Date Comments Adalimumab High 05/20/2024 Other Reaction(s): Chills and hot flashes Metoclopramide High 07/08/2024 Other Reaction(s): facial twitch Sulfasalazine Rash Medium 10/23/2023 documented as of this encounter (statuses as of 10/05/2024) Medications Ferrous Sulfate 325 (65 Fe) MG [...] Additional Information Patient not taking.Reported on 09/21/2024 Calcitriol 0.5 MCG Oral Capsule (Rocaltrol) Take 1 Capsule by mouth in the morning. 30 Capsule 2 Active Fenofibrate 145 MG Oral Tablet (Tricor) Take 1 Tablet by mouth in the morning. 30 Tablet 2 Active Ergocalciferol 1.25 MG (01013 UT) Oral Capsule (Vitamin D2(Drisdol)) Take 1 Capsule by mouth once a week. 12 Capsule 3 Active fluvoxaMINE Maleate 25 MG Oral Tablet (Luvox)Indicati ons:Moderate episode of recurrent major depressive disorder (HCC),LUDA (generalized anxiety disorder) Take 1 Tablet by mouth every night at bedtime. Active Tofacitinib Citrate ER 11 MG Oral Tablet Extended Release 24 Hour (Xeljanz XR) Take 1 Tablet by mouth in the morning. 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 Iron deficiency 02/28/2024 LUDA (generalized anxiety disorder) 10/09/2023 documented as of this encounter (statuses as of 10/05/2024) Resolved Problems Problem Noted Date Diagnosed Date Resolved Date Ileus 06/08/2024 06/13/2024 Rash and nonspecific skin eruption 06/04/2024 09/24/2024 Chest pain, non-cardiac 06/04/202405/23 Idiopathic acute pancreatitis 06/04/2024 06/13/2024 MAS (macrophage activation syndrome) 06/03/2024 08/17/2024 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 Gallstone pancreatitis 06/02/202406/13 Seronegative inflammatory arthritis 10/09/2023 07/10/2024 documented as of this encounter (statuses as of 10/05/2024) Immunizations Name Administration Dates Next Due COVID-19 [...] encounter Miscellaneous Notes * Telephone Encounter - Valentin Shah [facility] - 10/05/2024 8:04 AM EDTRefused Prescriptions: Disp Refills Fenofibrate 145 MG Oral Tablet (Tricor) 30 Tab*1 Sig: Take 1 Tablet by mouth in the morning.Refused By: VALENTIN SHAH LReason for Refusal: Too soon Calcitriol 0.5MCG Oral Capsule (Rocaltrol)30 Cap*1 Sig: Take 1 Capsule by mouth in the morning.Refused By: VALENTIN SHAH LReason for Refusal: Too soon documented in this encounter Plan of Treatment Upcoming Encounters Date Type Department Care Team (Late st Contact Info) Description 10/07/2024 9:15 AM EDT Hospital Encounter OR [facility], Operating Room, [facility] 1st Floor [address] [place] [address] Justyna León MD [address] [place] [address] 11/05/2024 8:15 AM EDT Imaging Radiology [address] [facility] [place] [phone] 11/09/2024 11:00 AM EDT Office Visit Gastroenterology, [facility] 132 [facility] [place] [address] Strala Sheriff CRNP [address] [facility] [place] [address] 11/09/2024 3:20 PM EDT Office Visit Rheumatology [facility] [address] [facility] [place] [phone] Neal Vang MD [facility] [place] [address] 01/04/2025 11:40 AM EDT Office Visit Family Practice [facility] [place] [address] [place] [address] Payal Myers MD [address] [place] [address] 01/14/2025 1:00 PM EDT Office Visit Nephrology, [facility] 200 [facility] [place] [address] Yasemin Villaseñor PA-C 200 [facility] [place] [address] 02/19/2025 3:00 PM EDT Office Visit Nephrology, [facility] 200 [facility] [place] [address] Ant Cardona MD 200 [facility] [place] [address] Health Maintenance Due Date Last Done Comments [...] Advance Directives occurred with: Patient Care Teams Socially Responsible Investment Adviser Relationship Specialty Start Date End Date Payal Myers MD [address] [place] [address] PCP - General Family Medicine 01/21/24 documented as of this encounter
--- OUTSIDE RECORDS SUMMARY | 2024-11-09 21:46 | External Medical Summary | Summary of Care ---
Author Name Unknown Organization [facility] Address [address] [place] [address] Phone [phone] Care Team Providers Care Cultured Marble Products Maker Name Role Phone Payal Myers MD Primary Care Provider [phone] Encounter Details Date Type Department Care Team (Late st Contact Info) Description 10/01/2024 Orders Only Laboratory [facility] [address] [place] [address] Tel, [place] [address] Serologic autoimmunity* Allergies Active Allergy Reactions Criticality Noted Date Comments Adalimumab High 05/20/2024 Other Reaction(s): Chills and hot flashes Metoclopramide High 07/08/2024 Other Reaction(s): facial twitch Sulfasalazine Rash Medium 10/23/2023 documented as of this encounter (statuses as of 10/01/2024) Medications Ferrous Sulfate 325 (65 Fe) MG [...] the morning. 30 Capsule 2 5 Active Fenofibrate 145 MG Oral Tablet (Tricor) Take 1 Tablet by mouth in the morning. 30 Tablet 2 5 Active Ergocalciferol 1.25 MG (35775 UT) Oral Capsule (Vitamin D2(Drisdol)) Take 1 [...] mouth in the morning. 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 Anemia of chronic disease 06/02/2024 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 Iron deficiency 02/28/2024 LUDA (generalized anxiety disorder) 10/09/2023 documented as of this encounter (statuses as of 10/01/2024) Resolved Problems Problem Noted Date Diagnosed Date Resolved Date Ileus 06/08/2024 06/13/2024 Rash and nonspecific skin eruption 06/04/2024 09/24/2024 Chest pain, non-cardiac 06/04/202405/23 Idiopathic acute pancreatitis 06/04/2024 06/13/2024 MAS (macrophage activation syndrome) 06/03/2024 08/17/2024 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 Gallstone pancreatitis 06/02/202406/13 Seronegative inflammatory arthritis 10/09/2023 07/10/2024 documented as of this encounter (statuses as of 10/01/2024) Immunizations Name Administration Dates Next Due COVID-19 [...] Assessment Author No 06/02/2024 7:41 PM Elaine Hathc RN * Do you have difficulty dressing [...] 10/07/2024 9:15 AM EDT Hospital Encounter OR [facility], Operating Room, [facility] 1st Floor [address] [place] [address] Justyna León MD [facility] [address] 11/05/2024 8:15 AM EDT Imaging Radiology [facility] 1st [facility], [address] [place] [address] 11/09/2024 11:00 AM EDT Office Visit Gastroenterology, [facility] [address] [place] [address] Starla Sheriff CRNP [address] [place] [address] 11/09/2024 3:20 PM EDT Office Visit Rheumatology [facility] [address] [place] [phone] Neal Vang MD [address] [facility] [place] [address] 01/04/2025 11:40 AM EDT Office Visit Family Practice [facility] 200 [facility] [place] [address] Payal Myers MD 200 [facility] [place] [address] 01/14/2025 1:00 PM EDT Office Visit Nephrology, [facility] 200 [facility] [place] [address] ZemaYasemin rock PA-C 200 [facility] [place] [address] 02/19/2025 3:00 PM EDT Office Visit Nephrology, [facility] 200 [facility] [place] [address] Ant Cardona MD 200 [facility] [place] [address] Pending Results Name Type Priority Associated Diagnoses Date /Time REFERRED TEST, OTHER,(LAB USE ONLY) Lab Routine Serologic autoimmunity 10/01/2024 9:27 AM EDT Scheduled Orders Name Type Priority Associated Diagnoses Orde r Schedule REFERRED TEST, OTHER,(LAB USE ONLY) Lab Routine Serologic autoimmunity Expected: 10/01/2024, Expires: 10/01/2025 Health Maintenance Due Date Last Done Comments [...] as of this encounter Visit Diagnoses Diagnosis Serologic autoimmunity- Primary Other and unspecified nonspecific immunological findings documented [...] Advance Directives occurred with: Patient Care Teams Cultured Marble Products Maker Relationship Specialty Start Date End Date Payal Myers MD [address] [place] [address] PCP - General Family Medicine 01/21/24 documented as of this encounter
--- OUTSIDE RECORDS SUMMARY | 2024-11-09 21:46 | External Medical Summary | Summary of Care ---
Author Name Unknown Organization [facility] Address [address] [place] [address] Phone [phone] Care Team Providers Care Data Lead Name Role Phone Payal Myers MD Primary Care Provider [phone] Reason for Visit * Reason Comments Outpatient Testing Encounter Details Date Type Department Care Team (Late st Contact Info) Description 10/01/2024 9:10 AM EDT Laboratory Laboratory [facility] [place] [address] [place] [address] [facility] [address] [place] [address] Serologic autoimmunity Allergies Active Allergy Reactions Criticality Noted Date [...] 30 Tablet 2 Active Ergocalciferol 1.25 MG (40884 UT) Oral Capsule (Vitamin D2(Drisdol)) Take 1 [...] mouth in the morning. 30 Tablet 5 Active documented as of this encounter [...] EDT Hospital Encounter OR [facility], Operating Room, [facility] 1st Floor [address] [place] [address] Justyna León MD [address] [place] [address] 11/05/2024 8:15 AM EDT Imaging Radiology [facility] [facility] [address] [place] [phone] 11/09/2024 11:00 AM EDT Office Visit Gastroenterology, [facility] [address] [place] [address] Starla Sheriff CRNP [address] [place] [address] 11/09/2024 3:20 PM EDT Office Visit Rheumatology [facility] [address] [place] [phone] Neal Vang MD [address] [place] [address] [place] [address] 01/04/2025 11:40 AM EDT Office Visit Family Practice [facility] 200 [facility] [place] [address] Payal Myers MD 200 [facility] [place] [place] [address] 01/14/2025 1:00 PM EDT Office Visit Nephrology, [facility] [address] [place] [address] ZeYasemin jackson PA-C 200 [facility] [place] [place] [address] 02/19/2025 3:00 PM EDT Office Visit Nephrology, [facility] [address] [place] [address] Ant Cardona MD [address] [place] [address] Pending Results Name Type Priority Associated Diagnoses Date /Time REFERRED TEST, OTHER,(LAB USE ONLY) Lab Routine Serologic autoimmunity 10/01/2024 9:27 AM EDT Health Maintenance Due Date Last Done Comments [...] of this encounter Visit Diagnoses Diagnosis Serologic autoimmunity Other and unspecified nonspecific immunological findings documented [...] Advance Directives occurred with: Patient Care Teams Data Lead Relationship Specialty Start Date End Date Payal Myers MD [address] [place] [address] PCP - General Family Medicine 01/21/24 documented as of this encounter
--- OUTSIDE RECORDS SUMMARY | 2024-11-09 21:46 | External Medical Summary | Summary of Care ---
Author Name Unknown Organization [facility] Address [address] [place] [address] Phone [phone] Care Team Providers Care Greenskeeper Name Role Phone Payal Myers MD Primary Care Provider [phone] Reason for Visit * Reason Onset Date Comments Order Request 10/09/2024 Encounter Details Date Type Department Care Team (Late st Contact Info) Description 10/09/2024 Telephone Family Practice [facility] 200 [facility] [place] [address] Payal Myers MD 200 [place] [address] Order Request Allergies Active Allergy Reactions Criticality Noted Date Comments Adalimumab High 05/20/2024 Other Reaction(s): Chills and hot flashes Metoclopramide High 07/08/2024 Other Reaction(s): facial twitch Sulfasalazine Rash Medium 10/23/2023 documented as of this encounter (statuses as of 10/09/2024) Medications Ferrous Sulfate 325 (65 Fe) MG [...] mouth daily before breakfast. 30 Capsule 11 01/13/202 5 Active Additional Information Patient not taking.Reported on 09/21/2024 Calcitriol 0.5 MCG Oral Capsule (Rocaltrol) Take 1 Capsule by mouth in the morning. 30 Capsule 2 Active Fenofibrate 145 MG Oral Tablet (Tricor) Take 1 Tablet by mouth in the morning. 30 Tablet 2 Active Ergocalciferol 1.25 MG (76296 UT) Oral Capsule (Vitamin D2(Drisdol)) Take 1 [...] Tablet 5 10/01/2024 3:29 PM EDT Active Magic Swizzle (Lidocaine-Foster dryl-Maalox) oral solution Swish and spit 15 mL in the morning and 15 mL before bedtime. 300 mL Active documented as of this encounter (statuses as of 10/09/2024) Active Problems Problem Noted Date Diagnosed Date Other chronic pancreatitis 08/17/2024 Recurrent major depressive disorder 08/17/2024 Hypocalcemia 06/07/2024 Isolated proteinuria without specific morphologi c lesion 06/05/2024 Undifferentiated inflammatory polyarthritis 05/22 Anemia of chronic disease 06/02/2024 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 Iron deficiency 02/28/2024 LUDA (generalized anxiety disorder) 10/09/2023 documented as of this encounter (statuses as of 10/09/2024) Resolved Problems Problem Noted Date Diagnosed Date Resolved Date Ileus 06/08/2024 06/13/2024 Rash and nonspecific skin eruption 06/04/2024 09/24/2024 Chest pain, non-cardiac 06/04/202405/23 Idiopathic acute pancreatitis 06/04/2024 06/13/2024 MAS (macrophage activation syndrome) 06/03/2024 08/17/2024 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 Gallstone pancreatitis 06/02/202406/13 Seronegative inflammatory arthritis 10/09/2023 07/10/2024 documented as of this encounter (statuses as of 10/09/2024) Immunizations Name Administration Dates Next Due COVID-19 [...] of Assessment Author No 06/02/2024 7:41 PM Elaien Hatch RN * Are you blind or [...] encounter Miscellaneous Notes * Telephone Encounter - Lu Bacon LPN - 10/09/2024 3:15 PM EDT See pt message encounter * Telephone Encounter - Martina Holder OSA - 10/09/2024 9:22 AM EDT Patient is requesting an order for a urinalysis suspect possible uti documented in this encounter Plan of Treatment Upcoming Encounters Date Type Department Care Team (Late st Contact Info) Description 11/05/2024 8:15 AM EDT Imaging [facility] [address] [place] [phone] 11/09/2024 11:00 AM EDT Office Visit Gastroenterology, [facility] [address] [place] [phone] Starla Sheriff CRNP [address] [place] [address] 11/09/2024 3:20 PM EDT Office Visit Rheumatology [facility] [address] [place] [phone] Neal Vang MD [facility] [place] [address] 01/04/2025 11:40 AM EDT Office Visit Family Practice [facility] [place] [address] [place] [address] Payal Myers MD [address] [place] [address] 01/14/2025 1:00 PM EDT Office Visit Nephrology, [facility] [address] [place] [address] Yasemin Villaseñor PA-C [address] [place] [address] 02/19/2025 3:00 PM EDT Office Visit Nephrology, [facility] [address] [place] [address] Ant Cardona MD [address] [place] [address] Health Maintenance Due Date Last Done Comments [...] Advance Directives occurred with: Patient Care Teams Greenskeeper Relationship Specialty Start Date End Date Payal Myers MD [address] [place], [place] [address] PCP - General Family Medicine 01/21/24 documented as of this encounter
--- OUTSIDE RECORDS SUMMARY | 2024-11-09 21:46 | External Medical Summary | Summary of Care ---
Author Name Unknown Organization [facility] Address [address] [place] [address] Phone [phone] Care Team Providers Care Practicing Md Anesthesiologist Name Role Phone Payal Myers MD Primary Care Provider [phone] Reason for Visit * Reason Onset Date Comments Advice 07/07/2024 Encounter Details Date Type Department Care Team (Late st Contact Info) Description 07/07/2024 Telephone Family Practice [facility] 200 [facility] [place] [address] Payal Myers MD 200 [place] [address] Advice Allergies Active Allergy Reactions Criticality Noted Date Comments Adalimumab High 05/20/2024 Other Reaction(s): Chills and hot flashes Metoclopramide High 07/08/2024 Other Reaction(s): facial twitch Sulfasalazine Rash Medium 10/23/2023 documented as of this encounter (statuses as of 10/07/2024) Medications Ferrous Sulfate 325 (65 Fe) MG Oral Tablet Delayed Release Take 1 Tablet by mouth. Every other day. Active B-12 500 MCG Oral Tablet Take 2 Tablets by mouth in the morning. 05/23/2024 Active Sodium Chloride 1 GM Oral Tablet Take 1 Tablet by mouth in the morning. Active documented as of this encounter (statuses as of 10/07/2024) Active Problems Problem Noted Date Diagnosed Date Other chronic pancreatitis 08/17/2024 Recurrent major depressive disorder 08/17/2024 Hypocalcemia 06/07/2024 Isolated proteinuria without specific morphologi c lesion 06/05/2024 Undifferentiated inflammatory polyarthritis 05/22 Anemia of chronic disease 06/02/2024 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 Iron deficiency 02/28/2024 LUDA (generalized anxiety disorder) 10/09/2023 documented as of this encounter (statuses as of 10/07/2024) Resolved Problems Problem Noted Date Diagnosed Date Resolved Date Ileus 06/08/2024 06/13/2024 Rash and nonspecific skin eruption 06/04/2024 09/24/2024 Chest pain, non-cardiac 06/04/202405/23 Idiopathic acute pancreatitis 06/04/2024 06/13/2024 MAS (macrophage activation syndrome) 06/03/2024 08/17/2024 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 (5 years old or older) Answer Entry Date Author No 06/02/2024 7:41 PM EST Elaine Baldwin RN documented in this encounter Miscellaneous Notes * Telephone Encounter - Jessy Barrientos OSA - 07/07/2024 1:30 PM EST Pt has appointment 07/[address] Myers, as of yesterday 07/06 Candelaria Guzman RN gave verbal consent to continue PT/OT. Talked to Kelly and let her know this. * Telephone Encounter - Nnamdi Arndt OSA - 07/07/2024 12:54 PM EST Kelly with [facility] would like to know if pcp will sign orders for PT/OT documented in this encounter Plan of Treatment Upcoming Encounters Date Type Department Care Team (Late st Contact Info) Description 10/07/2024 9:15 AM EDT Hospital Encounter OR [facility], Operating Room, [facility] 1st Floor [address] [place] [phone] Justyna León MD [address] [place] [address] 11/05/2024 8:15 AM EDT Imaging Radiology [address] [place] [phone] 11/09/2024 11:00 AM EDT Office Visit Gastroenterology, [facility] [address] [place] [phone] Starla Sheriff CRNP [address] [place] [address] 11/09/2024 3:20 PM EDT Office Visit Rheumatology [facility] [address] [place] [phone] Neal Vang MD [address] [facility] [place], [place] [address] 01/04/2025 11:40 AM EDT Office Visit Family Practice [facility] 200 [facility] [place] [address] Payal Myers MD 200 [facility] [place] [address] 01/14/2025 1:00 PM EDT Office Visit Nephrology, [facility] 200 [facility] [place] [address] Yasemin Villaseñor PA-C 200 [facility] [place] [address] 02/19/2025 3:00 PM EDT Office Visit Nephrology, [facility] 200 [facility] [place] [address] Ant Cardona MD 200 [facility] [place] [address] Health Maintenance Due Date Last Done Comments [...] Advance Directives occurred with: Patient Care Teams Practicing Md Anesthesiologist Relationship Specialty Start Date End Date Payal Myers MD [address] [place] [address] PCP - General Family Medicine 01/21/24 documented as of this encounter
--- OUTSIDE RECORDS SUMMARY | 2024-11-09 21:46 | External Medical Summary | Summary of Care ---
Author Name Unknown Organization [facility] Address [address] [place] [address] Phone [phone] Care Team Providers Care Retail Specialist Name Role Phone Payal Myers MD Primary Care Provider [phone] Reason for Visit * Reason Onset Date Comments Appointment 07/13/2024 Encounter Details Date Type Department Care Team (Late st Contact Info) Description 07/13/2024 Telephone Family Practice [facility] 200 [facility] [place] [address] Payal Myers MD 200 [facility] [address] Appointment Allergies Active Allergy Reactions Criticality Noted Date Comments Adalimumab High 05/20/2024 Other Reaction(s): Chills and hot flashes Metoclopramide High 07/08/2024 Other Reaction(s): facial twitch Sulfasalazine Rash Medium 10/23/2023 documented as of this encounter (statuses as of 10/13/2024) Medications Ferrous Sulfate 325 (65 Fe) MG Oral Tablet Delayed Release Take 1 Tablet by mouth. Every other day. Active B-12 500 MCG Oral Tablet Take 2 Tablets by mouth in the morning. 05/23/2024 Active Sodium Chloride 1 GM Oral Tablet Take 1 Tablet by mouth in the morning. Active documented as of this encounter (statuses as of 10/13/2024) Active Problems Problem Noted Date Diagnosed Date Other chronic pancreatitis 08/17/2024 Recurrent major depressive disorder 08/17/2024 Hypocalcemia 06/07/2024 Isolated proteinuria without specific morphologi c lesion 06/05/2024 Undifferentiated inflammatory polyarthritis 05/22 Anemia of chronic disease 06/02/2024 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 Iron deficiency 02/28/2024 LUDA (generalized anxiety disorder) 10/09/2023 documented as of this encounter (statuses as of 10/13/2024) Resolved Problems Problem Noted Date Diagnosed Date Resolved Date Ileus 06/08/2024 06/13/2024 Rash and nonspecific skin eruption 06/04/2024 09/24/2024 Chest pain, non-cardiac 06/04/202405/23 Idiopathic acute pancreatitis 06/04/2024 06/13/2024 MAS (macrophage activation syndrome) 06/03/2024 08/17/2024 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 Return If Acute Visit Type is needed, were surrounding clinics offered to patient (Yes/No)? N/A Was patient offered appointments with other available providers (Yes/No)? N/A See Call Details? (Yes or No): No. Patient needs a video visit follow up 2 weeks per pcp 07/24/2023. Patient would like see pcp only. documented in this encounter Plan of Treatment Upcoming Encounters Date Type Department Care Team (Late st Contact Info) Description 11/05/2024 8:15 AM EDT Imaging Radiology [facility] 1st Floor, [place] [address] [place] [phone] 11/09/2024 11:00 AM EDT Office Visit Gastroenterology, [facility] [address] [place] [phone] Starla Sheriff CRNP [address] [place] [address] 11/09/2024 3:20 PM EDT Office Visit Rheumatology [facility] [address] [place] [phone] Neal Vang MD [address] [facility] [place] [address] 01/04/2025 11:40 AM EDT Office Visit Family Practice [facility] 200 [facility] [place] [address] Payal Myers MD 200 [facility] [place] [address] 01/14/2025 1:00 PM EDT Office Visit Nephrology, [facility] 200 [facility] [place] [address] Yasemin Villaseñor PA-C 200 [facility] [place] [address] 02/19/2025 3:00 PM EDT Office Visit Nephrology, [facility] 200 [facility] [place] [address] Ant Cardona MD 200 [facility] [place] [address] Health Maintenance Due Date Last Done Comments [...] Advance Directives occurred with: Patient Care Teams Retail Specialist Relationship Specialty Start Date End Date Payal Myers MD [address] [place] [address] PCP - General Family Medicine 01/21/24 documented as of this encounter
--- OUTSIDE RECORDS SUMMARY | 2024-11-09 21:46 | External Medical Summary ---
Author Name Unknown Address Unknown Organization K1G:[facility] [address] Laboratory Report Ordering Provider Test Date Status SUSY BECERRA 10/07/2024 08:18:56 Final Observation Date Value Abnormality Reference (Units ) Status Screen, Urine 10/07/2024 08:18:56 Negative Negative Final Performing Location [facility] - [address] [facility] [address]
--- OUTSIDE RECORDS SUMMARY | 2024-11-09 21:46 | External Medical Summary | Summary of Care ---
Author Name Unknown Organization [facility] Address [address] [place] [address] Phone [phone] Care Team Providers Care Housing And Residence Life Director Name Role Phone Payal Myers MD Primary Care Provider [phone] Reason for Visit * Reason Comments Outpatient Testing Encounter Details Date Type Department Care Team (Late st Contact Info) Description 10/01/2024 9:10 AM EDT Laboratory Laboratory [facility] [place] [address] [place] [address] [facility] [address] [place] [address] Serologic autoimmunity Allergies Active Allergy Reactions Criticality [...] 30 Tablet 2 Active Ergocalciferol 1.25 MG (24390 UT) Oral Capsule (Vitamin D2(Drisdol)) Take 1 [...] EDT Hospital Encounter OR [facility], Operating Room, [facility] 1st Floor [address] [place] [address] Justyna León MD [address] [place] [address] 11/05/2024 8:15 AM EDT Imaging Radiology [facility] [address] [place] [phone] 11/09/2024 11:00 AM EDT Office Visit Gastroenterology, [facility] [address] [place] [address] Starla Sheriff CRNP [address] [place] [address] 11/09/2024 3:20 PM EDT Office Visit Rheumatology [facility] [address] [place] [phone] Neal Vang MD [address] [place] [address] [place] [address] 01/04/2025 11:40 AM EDT Office Visit Family Practice [facility] [address] [facility] [place] [address] Payal Myers MD 200 [facility] [place] [address] 01/14/2025 1:00 PM EDT Office Visit Nephrology, [facility] [address] [place] [address] ZeYasemin jackson PA-C [address] [facility] [place] [address] 02/19/2025 3:00 PM EDT Office Visit Nephrology, [facility] [address] [place] [address] Ant Cardona MD [address] [place] [address] Pending Results Name Type Priority Associated Diagnoses [...] Advance Directives occurred with: Patient Care Teams Housing And Residence Life Director Relationship Specialty Start Date End Date Payal Myers MD [address] [place] [address] PCP - General Family Medicine 01/21/24 documented as of this encounter
--- OUTSIDE RECORDS SUMMARY | 2024-11-09 21:46 | External Medical Summary ---
Author Name Unknown Address Unknown Organization K09:[facility] [place] [address] [place] [place] [address] Laboratory Report Ordering Provider Test Date Status MARILEA PANTOJA 10/09/2024 14:54:37 Final Observation Date Value Abnormality Reference (Units ) Status Color of Urine by Auto 10/09/2024 14:54:37 Yellow Light Yellow, Yellow, Dark Yellow Final Clarity, Urine 10/09/2024 14:54:37 Clear Clear Final Glucose [Mass/volume] in Urine by Automated test strip 10/09/2024 14:54:37 Negative Negative (mg/dL) Final Bilirubin.total [Presence] in Urine by Automated test strip 10/09/2024 14:54:37 Negative Negative Final Ketones [Mass/volume] in Urine by Automated test strip 10/09/2024 14:54:37 Negative Negative (mg/dL) Final Specific gravity, Urine 10/09/2024 14:54:37 1.020 1.003-1.030 Final Hemoglobin [Presence] in Urine by Automated test strip 10/09/2024 14:54:37 Negative Negative Final pH, Urine 10/09/2024 14:54:37 5.5 5.0-7.5 (Units) Final Protein [Mass/volume] in Urine by Automated test strip 10/09/2024 14:54:37 Negative Negative (mg/dL) Final Urobilinogen [Mass/volume] in Urine by Automated test strip 10/09/2024 14:54:37 0.2 0.2, 1.0 (mg/dL) Final Nitrite [Presence] in Urine by Automated test strip 10/09/2024 14:54:37 Negative Negative Final Leukocyte esterase [Presence] in Urine by Automated test strip 10/09/2024 14:54:37 Negative Negative Final RBC, Urine 10/09/2024 14:54:37 0-2 0-2 (/HPF) Final WBC, Urine 10/09/2024 14:54:37 0-2 0-2 (/HPF) Final Bacteria [#/area] in Urine sediment by Microscopy high power field 10/09/2024 14:54:37 0-25 0-25 (/HPF) Final CULTURE, URINE - [facility] 10/09/2024 14:54:37 Final Culture not indicated by uri nalysis results\[id number]\ Performing Location [facility] [place] [address] [place] [address]
--- OUTSIDE RECORDS SUMMARY | 2024-11-09 21:46 | External Medical Summary | Summary of Care ---
Author Name Unknown Organization [facility] Address [address] [place] [address] Phone [phone] Care Team Providers Care Licensing Analyst Name Role Phone Payal Myers MD Primary Care Provider [phone] Encounter Details Date Type Department Care Team (Latest Contact Info) Description 10/07/2024 7:39 AM EDT - 10/07/2024 10:00 AM EDT Hospital Encounter OR [facility], Operating Room, [facility] 1st Floor [address] [place] [address] Justyna León MD [address] [place] [id number] Various: GICOLON,UGI Discharge Disposition: Home - Self Care Allergies Active Allergy Reactions Criticality Noted Date Comments Adalimumab High 05/20/2024 Other Reaction(s): Chills and hot flashes Metoclopramide High 07/08/2024 Other Reaction(s): facial twitch Sulfasalazine Rash Medium 10/23/2023 documented as of this encounter (statuses as of 10/08/2024) Medications Ferrous Sulfate 325 (65 Fe) MG [...] mouth daily before breakfast. 30 Capsule 11 Active Additional Information Patient not taking.Reported on 09/21/2024 Calcitriol 0.5 MCG Oral Capsule (Rocaltrol) Take 1 Capsule by mouth in the morning. 30 Capsule 2 Active Fenofibrate 145 MG Oral Tablet (Tricor) Take 1 Tablet by mouth in the morning. 30 Tablet 2 Active Ergocalciferol 1.25 MG (66615 UT) Oral Capsule (Vitamin D2(Drisdol)) Take 1 [...] Tablet 5 10/01/2024 3:29 PM EDT Active Calcium Citrate + D3 200-6.25 MG-MCG Oral Tablet (Calcium Citrate-Vitami n D) Take 2 Tablets by mouth in the morning and 2 Tablets before bedtime. 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 Anemia of chronic disease 06/02/2024 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 Iron deficiency 02/28/2024 LUDA (generalized anxiety disorder) 10/09/2023 documented as of this encounter (statuses as of 10/08/2024) Resolved Problems Problem Noted Date Diagnosed Date Resolved Date Ileus 06/08/2024 06/13/2024 Rash and nonspecific skin eruption 06/04/2024 09/24/2024 Chest pain, non-cardiac 06/04/202405/23 Idiopathic acute pancreatitis 06/04/2024 06/13/2024 MAS (macrophage activation syndrome) 06/03/2024 08/17/2024 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 Gallstone pancreatitis 06/02/202406/13 Seronegative inflammatory arthritis 10/09/2023 07/10/2024 documented as of this encounter (statuses as of 10/08/2024) Immunizations Name Administration Dates Next Due COVID-19 [...] Sign Reading Time Taken Comments Blood Pressure 82/63 10/07/2024 10:00 AM EDT Pulse 73 10/07/2024 10:00 AM EDT Temperature 38.5 °C (101.3 °F) 10/07/2024 9:31 AM E DT Respiratory Rate 20 10/07/2024 10:00 AM EDT Oxygen Saturation 97% 10/07/2024 10:00 AM EDT Inhaled Oxygen Concentration - - Weight - [...] documented in this encounter Progress Notes * Romelia Rothman RN - 10/07/2024 9:15 AM EDT PREOP PATIENT INFORMATION AND EDUCATION: MEDICATION INSTRUCTIONS: The day of surgery/procedure, you may TAKE the following medications with a sip of water up to 2 hours prior to your arrival time: Luvox, fenofibrate, and omeprazole STOP taking the following medications the noted number of days prior to surgery/procedure unless otherwise specified by your surgeon: Xeljanz- per rheumatology patient is to hold the day of procedure only. Ferrous Sulfate- stop 3 days before procedure. Vitamins/herbal supplements- stop 1 week before procedure. Please follow surgeon's instructions regarding use of Aspirin, Coumadin, Plavix, Eliquis, and any other blood thinner including NSAIDs (non-steroidal anti- inflammatory drugs, eg, Advil, Ibuprofen, Motrin, Aleve, Naproxen); if you have any questions regarding your anticoagulation therapy please contact your surgeon's clinic. Please verify any proposed stoppage of your anticoagulation therapy with the agent's prescribing provider. 10 days prior to surgery/procedure Stop all Herbal supplements, Green Tea, Turmeric, Melatonin, CBD, THC, etc. Stop all Vitamins (including Vitamin E) 24 hours prior to surgery/procedure DO NOT consume any alcohol. DO NOT use medical marijuana. DO NOT smoke or use tobacco products of any kind after midnight prior to surgery. *Using any of these products may increase your risks of procedural complications. IF IT IS LESS THAN RECOMMENDED STOPPAGE TIME PLEASE STOP AT TIME OF NOTIFICATION. FASTING RECOMMENDATIONS: To reduce risk, it is important for all elective surgery patients to follow the specific fasting guidelines listed below. If you have received more stringent guidelines, please follow the MOST RESTRICTIVE guidelines that you have been provided. DO NOT EAT after midnight on the night prior to your surgery date. You are allowed to drink clear liquids up to two hours prior to arrival time to the hospital or surgery center. Examples of clear liquids include water, clear fruit juice without pulp, clear carbonated beverages, clear tea, and black coffee. Any drinks given by your surgical service take as directed. /pediatric patients who currently drink breast milk, formula, and non-human milk must not eat after midnight. These patients are allowed to drink only the liquids listed below up to two hours prior to arrival time to the hospital or surgery center: Ingested Material Minimum Fasting Time Clear liquid After midnight up to 2 hours prior to arrival time Breast milk Up to 4 hours prior to arrival time Infant formula Up to 6 hours prior to arrival time Non-human milk Up to 6 hours prior to arrival time THE DAY BEFORE YOUR SURGERY: -Drink plenty of fluid the day before your surgery. Contact your surgeon's office if you develop any of the following within 2 weeks of surgery: A cold Infection Fever Shingles Chicken pox or exposure to chicken pox Open areas such as scrapes, cuts, turcios or other skin conditions Rashes GENERAL INSTRUCTIONS FOR PREPARING FOR SURGERY: BATHING INSTRUCTIONS: Bathe the evening prior to and the morning of surgery/procedure. Cleanse your body using ONLY anti-bacterial soap (eg, Dial, Safeguard) or any specific soap/cleansers and instructions provided by your surgeon (eg, Chlorhexidine). -You should brush your teeth the morning of surgery. Do NOT apply any lotions, powders, sprays, creams, oils, make-up, or deodorants after bathing. No hairspray, or nail samoan on fingers or toes. Day of surgery/procedure do not use tampons. If you wear contacts wear your eyeglasses if available otherwise bring your contact supplies with you to remove them prior to your surgery/procedure. If you wear glasses or dentures, please bring cases in which you can store them during your surgery. Please remove all piercings and jewelry and leave them at home. Wear comfortable and loose clothing. -Please leave all valuables at home. -If you use a CPAP and are staying overnight, please bring your mask and tubing with you to the hospital. -If you use an assistive mobility device (walker, cane, etc), please label it with your name and bring to hospital. -An escort school bus driver is required if you are being discharged the same day of the surgery. You should have a responsible adult over the age of 18 [address] you home. This person should be present with youin the hospital at the time of discharge and for the first 24 hours after the surgery to support your needs. If you are taking a taxi home, you must have your responsible green party accompany you in the taxi ride home at the time of discharge. OR times subject to change. Please check voicemail messages the day/evening before your surgery forany updates. PRE-OP: You will be taken to the pre-op area where your vital signs (blood pressure, pulse and temperature)will be taken. Any preparations that need to be done will be done there. When it is time for your surgery, you will be taken to the operating room. PARENTS OF PEDIATRIC PATIENTS WILL BE ALLOWED TO STAY WITH THEIR CHILDREN UNTIL THEY ARE ESCORTED TO THE OPERATING ROOM OUTPATIENT SURGERY PATIENTS: After your surgery you will be taken to the Same Day Surgery Unit when you are awake and will go home from there. You will get instructions about your home care before you leave. Arrange to have someone drive you home from the hospital. You may not drive for 24 hours after anesthesia. You must havean adult stay with you at home for 24 hours after your operation. This is very important. If you are not able to comply with these guidelines, your Short Stay surgery cannot be done. ADMISSION PATIENTS: After your stay in the recovery area, you will be taken to your room. Your family may visit you in your room based on current visitation policy. If a next day discharge is expected, it is important to make arrangements for a school bus driver to take you home. Please be aware our visitation policies are subject to change Professionals, attendants, caregivers or family members are allowable visitors for patients with intellectual, developmental or cognitive disabilities, communication barriers or behavioral concerns. Because patients' and families' needs vary, they will be taken into account when applying visitation restrictions. [facility]: ext [phone] Please enter through the Main Entrance of the [facility] which is directly across from the main parking lot. Stop at the registration desk, which is inside the main entrance, to register first. They will then direct you back to Same Day Surgery. You will be called the day before surgery (on Saturday if your surgery is Saturday) with the time to be at the hospital. If you have notbeen called by 4:00 p.m., please call [phone] and ask for the nursing prep room supervisor. THANK YOU FOR CHOOSING [facility]! * Juli Fairbanks RN - 10/07/2024 8:40 AM EDT Tofacitinib Citrate documented in this encounter H&P Notes * Justyna León MD - 10/07/2024 7:43 AM EDT Endoscopy Pre-Procedure Assessment Name: Bhavin Wilson Date: 10/07/2024 Time: 7:43 AM Procedure(s): Colonoscopy; with Indication(s) of Generalized abdominal pain Upper GI Endoscopy; with Indication(s) of Generalized abdominal pain Endoscopy Pre-Procedure Assessment: Prior to the procedure, the patient is identified. The patient's history, medications and allergieshave been reviewed. The patient is competent. The risks and benefits of the proposed procedure and the planned sedation have been discussed with the patient. All questions have been answered and informed consent for the procedure has been obtained. Prior to Admission medications Medication Sig Last Dose Discont. fluvoxaMINE Maleate 25 MG Oral Tablet (Luvox) Take 1 Tablet by mouth every night at bedtime. Tofacitinib Citrate ER 11 MG Oral Tablet Extended Release 24 Hour (Xeljanz XR) Take 1 Tablet by mouth in the morning. Ergocalciferol 1.25 MG (88802 UT) Oral Capsule (Vitamin D2(Drisdol)) Take 1 Capsule by mouth once aweek. Calcitriol 0.5 MCG Oral Capsule (Rocaltrol) Take 1 Capsule by mouth in the morning. Fenofibrate 145 MG Oral Tablet (Tricor) Take 1 Tablet by mouth in the morning. Omeprazole 20 MG Oral Tablet Delayed Release Take 1 Tablet by mouth in the morning. Sodium Chloride 1 GM Oral Tablet Take 1 Tablet by mouth in the morning. B-12 500 MCG Oral Tablet Take 2 Tablets by mouth in the morning. Ferrous Sulfate 325 (65 Fe) MG Oral Tablet Delayed Release Take 1 Tablet by mouth. Every other day. predniSONE 5 MG Oral Tablet (Deltasone) Take 4 Tablets by mouth daily for 3 days, THEN 3 Tablets daily for 3 days, THEN 2 Tablets daily for 3 days, THEN 1 Tablet daily for 3 days. linaCLOtide 145 MCG Oral Capsule (Linzess) Take 1 Capsule by mouth daily before breakfast. Patient not taking: Reported on 09/21/2024 Review of patient's allergies indicates: Allergen Reactions Adalimumab Other Reaction(s): Chills and hot flashes Metoclopramide Other Reaction(s): facial twitch Sulfasalazine Rash BP 102/63 | Temp (!) 38.2 °C (100.8 °F) (Tympanic) Comment: Dr. Moran made aware- pe t, she gets fevers due to autoimmune dx | Resp 24 | SpO2 100% Physical Exam: Mental Status Examination: alert and oriented. Airway Examination: normal oropharyngeal airway and neck mobility. Respiratory Examination: clear to auscultation. CV Examination: normal. ASA Grade: II - A patient with mild systemic disease. Abdomen: negative This patient has undergone a preprocedural evaluation. A determination has been made to proceed with the planned procedure under [facility] procedural guidelines and the [facility] Non-Emergent, Elective Medical Services and Treatment Recommendations (published on 10-27-19). The community and hospital prevalence of COVID-19 has been discussed as well as this patient's specific risks associated with SARS-CoV-19 infection. Based upon the clinical acuity and patient-specific care considerations, this procedure is deemed a Tier II - Intermediate acuity treatment or service with either progression or the threat of progressive disease related to the delay in treatment. Not providing the service has the potential for increasing morbidity or mortality. I have also discussed the risks of procedure which include pain, bleeding, infection, injury to other internal organs, perforation, aspiration, adverse reaction to anesthesia, missed lesions and incomplete endoscopic procedure. Patient would like to proceed with the endoscopic procedure. After reviewing the risks and benefits, the patient is deemed in satisfactory condition to undergo the procedure. The anesthesia plan is to use monitored anesthesia care (MAC). Justyna León MD 10/07/2024 documented in this encounter Procedure Notes * Payal Myers MD - 10/07/2024 8:28 AM EDTAssociated Order(s): COLONOSCOPY [facility] Patient Name: Bhavin Wilson Procedure Date: 10/07/2024 8:28 AM Date of : 1995 Admit Type: Outpatient Note Status: Finalized Date of : 1995 Admit Type: Outpatient Age: 29 Room: Endoscopy Gender: Female Note Status: Finalized Procedure: Colonoscopy Indications: Abdominal pain in the left lower quadrant, Constipation Providers: Justyna León MD (Doctor) Referring MD: Starla Fry Medicines: See the Anesthesia note for documentation of the administered medications Complications: No immediate complications. Estimated blood loss: None. Procedure: Pre-Anesthesia Assessment: - Prior to the procedure, a History and Physical was performed, and patient medications and allergies were reviewed. The patient's tolerance of previous anesthesia was also reviewed. The risks and benefits of the procedure and the sedation options and risks were discussed with the patient. All questions were answered, and informed consent was obtained. Prior Anticoagulants: The patient has taken no anticoagulant or antiplatelet agents. ASA Grade Assessment: II - A patient with mild systemic disease. After reviewing the risks and benefits, the patient was deemed in satisfactory condition to undergo the procedure. After I obtained informed consent, the scope was passed under direct vision. All instruments were visually inspected immediately before and after removal from the patient to ensure they are fully intact. Throughout the procedure, the patient's blood pressure, pulse, and oxygen saturations were monitored continuously. The PCF-H190L Colonoscope ([id number]) was introduced through the anus and advanced to 5 cm into the ileum. The colonoscopy was performed without difficulty. The patient tolerated the procedure well. The quality of the bowel preparation was good. Scope insertion time was 5 minutes . Scope withdrawal time was 10 minutes. Total procedure time was 15 minutes. Multiple passes made in the ascending colon and retroflexion done in the right colon Findings & Specimens: The perianal and digital rectal examinations were normal. The terminal ileum appeared normal. Retroflexion in the right colon was performed. The entire examined colon appeared normal. The retroflexed view of the distal rectum and anal verge was normal and showed no anal or rectal abnormalities. Impression: - The examined portion of the ileum was normal. - The entire examined colon is normal. - The distal rectum and anal verge are normal on retroflexion view. - No specimens collected. Recommendation: - Observe patient in GI recovery unit for observation. - Advance diet as tolerated. - Your colonoscopy was normal and did not show any evidence for polyps,cancers or inflammation. - Follow up with your primary GI - Patient has a contact number available for emergencies. The signs and symptoms of potential delayed complications were discussed with the patient. Return to normal activities tomorrow. Written discharge instructions were provided to the patient. Justyna León MD 10/07/2024 9:38:26 AM This report has been signed electronically. Estimated Blood Loss: None * Payal Myers MD - 10/07/2024 8:27 AM EDTAssociated Order(s): UPPER GI ENDOSCOPY [facility] Patient Name: Bhavin Wilson Procedure Date: 10/07/2024 8:27 AM Date of : 1995 Admit Type: Outpatient Note Status: Finalized Date of : 1995 Admit Type: Outpatient Age: 29 Room: Endoscopy Gender: Female Note Status: Finalized Procedure: Upper GI endoscopy Indications: Generalized abdominal pain Providers: Justyna León MD (Doctor) Referring MD: Strala Fry Medicines: See the Anesthesia note for documentation of the administered medications Complications: No immediate complications. Estimated blood loss: Minimal. Procedure: Pre-Anesthesia Assessment: - Prior to the procedure, a History and Physical was performed, and patient medications and allergies were reviewed. The patient's tolerance of previous anesthesia was also reviewed. The risks and benefits of the procedure and the sedation options and risks were discussed with the patient. All questions were answered, and informed consent was obtained. Prior Anticoagulants: The patient has taken no anticoagulant or antiplatelet agents. ASA Grade Assessment: II - A patient with mild systemic disease. After reviewing the risks and benefits, the patient was deemed in satisfactory condition to undergo the procedure. After obtaining informed consent, the endoscope was passed under direct vision. All instruments were visually inspected immediately before and after removal from the patient to ensure they are fully intact. Throughout the procedure, the patient's blood pressure, pulse, and oxygen saturations were monitored continuously. The GIF-H180 Endoscope ([id number]) was introduced through the mouth, and advanced to the second part of duodenum. The upper GI endoscopy was accomplished without difficulty. The patient tolerated the procedure well. Findings & Specimens: The second portion of the duodenum was normal. Biopsies for histology were taken with a cold forceps for evaluation of celiac disease. The pathology specimen was placed into Bottle Number 1. The duodenal bulb was normal. Striped mildly erythematous mucosa without bleeding was found in the gastric body. Biopsies were taken with a cold forceps for Helicobacter pylori testing. The pathology specimen was placed into Bottle Number 2. The cardia and gastric fundus were normal on retroflexion. The Z-line was regular and was found 40 cm from the incisors. The gastroesophageal flap valve was visualized endoscopically and classified as Hill Grade II (fold present, opens with respiration). The examined esophagus was normal. Biopsies were taken with a cold forceps for histology. The pathology specimen was placed into Bottle Number 3. Impression: - Normal second portion of the duodenum. Biopsied. - Normal duodenal bulb. - Small amount of bile in the stomach - Minimally rrythematous mucosa in the gastric body. Biopsied. - Z-line regular, 40 cm from the incisors. - Gastroesophageal flap valve classified as Hill Grade II (fold present, opens with respiration). - Normal esophagus. Biopsied. Recommendation: - Proceed with colonoscopy. - Your upper endoscopy was normal and it did not show any significant evidence of inflammation in the duodenum,stomach or esophagus. There was no evidence of narrowing/stricture in the esophagus. I have taken random biopsies during the upper endoscopy and will make you aware once results of biopsies are back. - Patient has a contact number available for emergencies. The signs and symptoms of potential delayed complications were discussed with the patient. Return to normal activities tomorrow. Written discharge instructions were provided to the patient. Justyna León MD 10/07/2024 9:39:03 AM This report has been signed electronically. Estimated Blood Loss: Minimal documented in this encounter Nursing Notes * Juli Fairbanks, RN - 10/07/2024 10:05 AM EDT Patient tolerated post op period without issues. IV removed, vitals stable, and no pain. D/C instructions covered with patient and mom All questions and concerns addressed. Pt left to personal car via WC in stable condition. documented in this encounter Plan of Treatment Upcoming Encounters Date Type Department Care Team (Late st Contact Info) Description 11/05/2024 8:15 AM EDT Imaging Radiology [facility] [facility] [address] [place] [phone] 11/09/2024 11:00 AM EDT Office Visit Gastroenterology, [facility] [address] [place] [phone] Starla Sheriff CRNP [address] [place] [address] 11/09/2024 3:20 PM EDT Office Visit Rheumatology [facility] [address] [place] [phone] Neal Vang MD [facility] [place] [address] 01/04/2025 11:40 AM EDT Office Visit Family Practice [facility] [address] [facility] [place] [address] Payal Myers MD [address] [facility] [place] [address] 01/14/2025 1:00 PM EDT Office Visit Nephrology, [facility] [address] [facility] [place], [place] [address] Yasemin Villaseñor PA-C [address] [facility] [place] [address] 02/19/2025 3:00 PM EDT Office Visit Nephrology, [facility] [address] [facility] [place] [address] Ant Cardona MD [address] [facility] [place] [address] Pending Results Name Type Priority Associated Diagnoses Date /Time SURGICAL PATHOLOGY Pathology Routine Constipation, unspecified constipation type Abdominal pain, unspecified abdominal location 10/07/2024 9:03 AM EDT Scheduled Orders Name Type Priority Associated Diagnoses Orde r Schedule SURGICAL PATHOLOGY Pathology Routine Constipation, unspecified constipation type Abdominal pain, unspecified abdominal location Release Upon Ordering for 1 Occurrences starting 10/07/2024, 1 completed Health Maintenance Due Date Last Done Comments [...] Procedure Name Priority Date/Time Associated Diagnosis Comments COLONOSCOPY 10/07/2024 8:28 AM EDT UPPER GI ENDOSCOPY 10/07/2024 8: 27 AM EDT HCG QUALITATIVE, URINE STAT 10/07/2024 8:18 AM EDT documented in this encounter Results * COLONOSCOPY (10/07/2024 8:28 AM EDT) 10/07/2024 8:28 AM EDT Narrative Procedure Note Payal Myers MD - 10/07/2024 8:28 AM EDT [facility] Patient Name: Bhavin Wilson Procedure Date: 10/07/2024 8:28 AM Date of : 1995 Admit Type: Outpatient Note Status:Finalized Date of : 1995 Admit Type: Outpatient Age: 29 Room: Endoscopy Gender: Female Note Status: Finalized Procedure: Colonoscopy Indications: Abdominal pain in the left lower quadrant,Constipation Providers: Justyna León MD (Doctor) Referring MD: Starla Fry Sharita Medicines: See the Anesthesia note for documentation of theadministered medications Complications: No immediate complications. Estimated blood loss:None. Procedure: Pre-Anesthesia Assessment: - Prior to the procedure, a History and Physicalwas performed, and patient medications and allergies were reviewed. Thepatient's tolerance of previous anesthesia was also reviewed. The risks andbenefits of the procedure and the sedation options and risks were discussed with thepatient. All questions were answered, and informed consent was obtained. PriorAnticoagulants: The patient has taken no anticoagulant or antiplatelet agents. ASAGrade Assessment: II - A patient with mild systemic disease. After reviewing therisks and benefits, the patient was deemed in satisfactory condition to undergo theprocedure. After I obtained informed consent, the scope waspassed under direct vision. All instruments were visually inspected immediatelybefore and after removal from the patient to ensure they are fully intact. Throughout the procedure, the patient's bloodpressure, pulse, and oxygen saturations were monitored continuously. The [id number] ([id number]) was introduced through the anus and advanced to 5 cm into theileum. The colonoscopy was performed without difficulty. The patient tolerated theprocedure well. The quality of the bowel preparation was good. Scope insertion timewas 5 minutes . Scope withdrawal time was 10 minutes. Total procedure time was 15minutes. Multiple passes made in the ascending colon and retroflexion done in the rightcolon Findings & Specimens: The perianal and digital rectal examinations were normal. The terminal ileum appeared normal. Retroflexion in the right colon was performed. The entire examined colon appeared normal. The retroflexed view of the distal rectum and anal verge was normaland showed no anal or rectal abnormalities. Impression: - The examined portion of the ileum was normal. - The entire examined colon is normal. - The distal rectum and anal verge are normal onretroflexion view. - No specimens collected. Recommendation: - Observe patient in GI recovery unit forobservation. - Advance diet as tolerated. - Your colonoscopy was normal and did not show anyevidence for polyps,cancers or inflammation. - Follow up with your primary GI - Patient has a contact number available foremergencies. The signs and symptoms of potential delayed complications were discussed withthe patient. Return to normal activities tomorrow. Written discharge instructionswere provided to the patient. Justyna León MD 10/07/2024 9:38:26 AM This report has been signed electronically. Estimated Blood Loss: None us Payal Myers MD GASTRO LOWER Final Result * UPPER GI ENDOSCOPY (10/07/2024 8:27 AM EDT) 10/07/2024 8:27 AM EDT Narrative Procedure Note Payal Myers MD - 10/07/2024 8:27 AM EDT [facility] Patient Name: Bhavin Wilson Procedure Date: 10/07/2024 8:27 AM Date of : 1995 Admit Type: Outpatient Note Status:Finalized Date of : 1995 Admit Type: Outpatient Age: 29 Room: Endoscopy Gender: Female Note Status: Finalized Procedure: Upper GI endoscopy Indications: Generalized abdominal pain Providers: Justyna León MD (Doctor) Referring MD: Starla Fry Sharita Medicines: See the Anesthesia note for documentation of theadministered medications Complications: No immediate complications. Estimated blood loss:Minimal. Procedure: Pre-Anesthesia Assessment: - Prior to the procedure, a History and Physicalwas performed, and patient medications and allergies were reviewed. Thepatient's tolerance of previous anesthesia was also reviewed. The risks andbenefits of the procedure and the sedation options and risks were discussed with thepatient. All questions were answered, and informed consent was obtained. PriorAnticoagulants: The patient has taken no anticoagulant or antiplatelet agents. ASAGrade Assessment: II - A patient with mild systemic disease. After reviewing therisks and benefits, the patient was deemed in satisfactory condition to undergo theprocedure. After obtaining informed consent, the endoscope waspassed under direct vision. All instruments were visually inspected immediatelybefore and after removal from the patient to ensure they are fully intact. Throughout the procedure, the patient's bloodpressure, pulse, and oxygen saturations were monitored continuously. The GIF-H180 Endoscope([id number]) was introduced through the mouth, and advanced to the second part ofduodenum. The upper GI endoscopy was accomplished without difficulty. The patienttolerated the procedure well. Findings & Specimens: The second portion of the duodenum was normal. Biopsies for histologywere taken with a cold forceps for evaluation of celiac disease. The pathology specimen was placedinto Bottle Number 1. The duodenal bulb was normal. Striped mildly erythematous mucosa without bleeding was found in thegastric body. Biopsies were taken with a cold forceps for Helicobacter pylori testing. The pathologyspecimen was placed into Bottle Number 2. The cardia and gastric fundus were normal on retroflexion. The Z-line was regular and was found 40 cm from the incisors. The gastroesophageal flap valve was visualized endoscopically andclassified as Hill Grade II (fold present, opens with respiration). The examined esophagus was normal. Biopsies were taken with a coldforceps for histology. The pathology specimen was placed into Bottle Number 3. Impression: - Normal second portion of the duodenum.Biopsied. - Normal duodenal bulb. - Small amount of bile in the stomach - Minimally rrythematous mucosa in the gastricbody. Biopsied. - Z-line regular, 40 cm from the incisors. - Gastroesophageal flap valve classified as HillGrade II (fold present, opens with respiration). - Normal esophagus. Biopsied. Recommendation: - Proceed with colonoscopy. - Your upper endoscopy was normal and it did notshow any significant evidence of inflammation in the duodenum,stomach or esophagus.There was no evidence of narrowing/stricture in the esophagus. I have takenrandom biopsies during the upper endoscopy and will make you aware once results ofbiopsies are back. - Patient has a contact number available foremergencies. The signs and symptoms of potential delayed complications were discussed withthe patient. Return to normal activities tomorrow. Written discharge instructionswere provided to the patient. Justyna León MD 10/07/2024 9:39:03 AM This report has been signed electronically. Estimated Blood Loss: Minimal Payal Myers MD GASTRO UPPER Final Result * HCG QUALITATIVE, URINE (10/07/2024 8:18 AM EDT) HCG Qualitative, Urine Negative Negative 10/07/2024 8:27 AM EDT [facility] Urine Urine specimen obtained by clean catch procedure / Unknown Non-blood Collection / Unknown 10/07/2024 8:18 AM EDT 10/07/2024 8:22 AM EDT us Justyna León MD LAB URINE ORDERABLES Final Resu lt [facility]ATORY [place] [id number] [place] [address] documented in this encounter Visit Diagnoses Diagnosis Constipation, unspecified constipation type Abdominal pain, unspecified abdominal location documented in this encounter Active and Recently Administered Medications Times are shown in EDT. PRN Medication Order 10/05/2024 10/06/2024 10/07/2024 Isolyte-S pH 7.4 infusion Intravenous, at 25 mL/hr, Plasma-LYTE 148, isolyte-S, and isolyte-S pH 7.4 are considered equivalent - including for MAR barcode scanning., PRN, Starting on Sat10/07/24 at 0754, Until Sat10/07/24 at 1053, Pre-Op documented in this encounter Advance Directives * [...] Advance Directives occurred with: Patient Care Teams Licensing Analyst Relationship Specialty Start Date End Date Payal Myers MD [address] [place] [address] PCP - General Family Medicine 01/21/24 documented as of this encounter"
--- OUTSIDE RECORDS SUMMARY | 2024-11-09 21:46 | External Medical Summary | Summary of Care ---
Author Name Unknown Organization [facility] Address [address] [place] [address] Phone [phone] Care Team Providers Care Processing Lead Name Role Phone Payal Myers MD Primary Care Provider [phone] Reason for Visit * Reason Comments Outpatient Testing Encounter Details Date Type Department Care Team (Late st Contact Info) Description 10/09/2024 2:50 PM EDT Laboratory Laboratory [facility] [place] [address] [place] [address] [facility] [address] [place] [address] Dysuria Allergies Active Allergy Reactions Criticality Noted Date [...] 30 Tablet 2 Active Ergocalciferol 1.25 MG (13789 UT) Oral Capsule (Vitamin D2(Drisdol)) Take 1 [...] 10/01/2024 3:29 PM EDT Active Magic Swizzle (Lidocaine-[place] dryl-Maalox) oral solution Swish and spit 15 [...] Description 11/05/2024 8:15 AM EDT Imaging Radiology [address], [place] 132 [facility] [place] [address] 11/09/2024 11:00 AM EDT Office Visit Gastroenterology, [facility] [address] [place] [address] Starla Sheriff CRNP [address] [place] [address] 11/09/2024 3:20 PM EDT Office Visit Rheumatology [facility] [address] [place] [phone] Neal Vang MD [facility] [place] [address] 01/04/2025 11:40 AM EDT Office Visit Family Practice [facility] [address] [place] [address] Payal Myers MD [address] [place] [address] 01/14/2025 1:00 PM EDT Office Visit Nephrology, [facility] [address] [place] [address] Yasemin Villaseñor PA-C 200 [facility] [place] [address] 02/19/2025 3:00 PM EDT Office Visit Nephrology, [facility] [address] [place] [address] Ant Cardona MD 200 [facility] [place] [address] Health Maintenance Due Date Last Done Comments COVID-19 Vaccine ( season) 2024 12/04/2020, 11/06/2020 Pap Smear 06/25/2025 06/25/2022, 02/11/2019 Depression Monitoring 09/11/2025 09/11/2024, 08/09/2 024 DTap/Tdap Vaccines (8 - Td or [...] Procedure Name Priority Date/Time Associated Diagnosis Comments URINALYSIS, REFLEX TO CULTURE Routine 10/09/2024 2:54 PM EDT Dysuria URINALYSIS, REFLEX TO CULTURE (CUP ONLY) Routine 10/09/2024 2:54 PM EDT Dysuria URINALYSIS, REFLEX TO CULTURE (NOT FOR NEUTROPENIC PATIENTS) Routine 10/09/2024 2:54 PM EDT Dysuria documented in this encounter Results * URINALYSIS, REFLEX TO CULTURE (10/09/2024 2:54 PM EDT) Color, Urine Yellow Light Yellow, Yellow, Dark Yellow 10/09/2024 4:05 PM EDT [facility] [place] [facility] Clarity, Urine Clear Clear 10/09/2024 4:05 PM EDT [facility] [place] [facility] [facility] Glucose, Urine Negative Negative mg/dL 10/09/2024 4:05 PM EDT [facility] [place] [facility] [facility] Bilirubin, Urine Negative Negative 10/09/2024 4:05 PM EDT [facility] 56 Ketone, Urine Negative Negative mg/dL 10/09/2024 4:05 PM EDT [facility] 56 Specific [place], Urine 1.020 1.003 - 1.030 10/09/2024 4:05 PM EDT [facility] 56 Blood, Urine Negative Negative 10/09/2024 4:05 PM EDT [facility] 56 pH, Urine 5.5 5.0 - 7.5 Units 10/09/2024 4:05 PM EDT [place] [address] Protein, Urine Negative Negative mg/dL 10/09/2024 4:05 PM EDT [facility] 56 Urobilinogen, Urine 0.2 0.2, 1.0 mg/dL 10/09/2024 4:05 PM EDT [address] Nitrite, Urine Negative Negative 10/09/2024 4:05 PM EDT [facility] 56 Esterase, Urine Negative Negative 10/09/2024 4:[address] RBC, Urine 0-2 0 - 2 /HPF 10/09/2024 4:05 PM EDT [address] WBC, Urine 0-2 0 - 2 /HPF 10/09/2024 4:05 PM EDT [address] Bacteria, Urine 0-25 0 - 25 /HPF 10/09/2024 4:05 PM EDT [facility] 56 Culture, Urine 10/09/2024 4:05 PM EDT [facility] 56 Comment:Culture not indicate d by urinalysis results Urine Urine specimen obtained by clean catch procedure / Unknown Non-blood Collection / Unknown 10/09/2024 2:54 PM EDT 10/09/2024 2:54 PM EDT us Payal Myers MD LAB URINE ORDERABLES Final Resu lt [facility] [address] [place] [address] * URINALYSIS, REFLEX TO CULTURE (CUP ONLY) (10/09/2024 2:54 PM EDT) Urinalysis, Reflex to Culture Specimen Specimen collected and received 10/09/2024 4:01 PM EDT [facility] 56-02 Urine Urine specimen obtained by clean catch procedure / Unknown Non-blood Collection / Unknown 10/09/2024 2:54 PM EDT 10/09/2024 2:54 PM EDT Payal Myers MD LAB URINE ORDERABLES Final Resu lt [facility] 56-02 [address] [facility] [address] documented in this encounter Visit Diagnoses Diagnosis Dysuria documented in this encounter Advance Directives * [...] Advance Directives occurred with: Patient Care Teams Processing Lead Relationship Specialty Start Date End Date Payal Myers MD [address] [facility] [address] PCP - General Family Medicine 01/21/24 documented as of this encounter
--- OUTSIDE RECORDS SUMMARY | 2024-11-09 21:46 | External Medical Summary | Summary of Care ---
Author Name Unknown Organization [facility] Address [address] [place] [address] Phone [phone] Care Team Providers Care Phlebotomy Services Technician Name Role Phone Payal Myers MD Primary Care Provider [phone] Reason for Visit * Reason Onset Date Comments Home Health 07/10/2024 Encounter Details Date Type Department Care Team (Late st Contact Info) Description 07/10/2024 Telephone Family Practice [facility] 200 [facility] [place] [address] Payal Myers MD [address] [place] [address] Home Health Allergies Active Allergy Reactions Criticality Noted Date Comments Adalimumab High 05/20/2024 Other Reaction(s): Chills and hot flashes Metoclopramide High 07/08/2024 Other Reaction(s): facial twitch Sulfasalazine Rash Medium 10/23/2023 documented as of this encounter (statuses as of 10/10/2024) Medications Ferrous Sulfate 325 (65 Fe) MG [...] morning and 10 mL before bedtime. 07/09/20 24 025 Discontinued Potassium Chloride 20 MEQ Oral Packet Take 40 mEq by mouth in the morning. 025 Discontinued(De dication List Clean Up) documented as of this encounter (statuses as of 10/10/2024) Active Problems Problem Noted Date Diagnosed Date Other chronic pancreatitis 08/17/2024 Recurrent major depressive disorder 08/17/2024 Hypocalcemia 06/07/2024 Isolated proteinuria without specific morphologi c lesion 06/05/2024 Undifferentiated inflammatory polyarthritis 05/22 Anemia of chronic disease 06/02/2024 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 Iron deficiency 02/28/2024 LUDA (generalized anxiety disorder) 10/09/2023 documented as of this encounter (statuses as of 10/10/2024) Resolved Problems Problem Noted Date Diagnosed Date Resolved Date Ileus 06/08/2024 06/13/2024 Rash and nonspecific skin eruption 06/04/2024 09/24/2024 Chest pain, non-cardiac 06/04/202405/23 Idiopathic acute pancreatitis 06/04/2024 06/13/2024 MAS (macrophage activation syndrome) 06/03/2024 08/17/2024 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 Gallstone pancreatitis 06/02/202406/13 Seronegative inflammatory arthritis 10/09/2023 07/10/2024 documented as of this encounter (statuses as of 10/10/2024) Immunizations Name Administration Dates Next Due COVID-19 [...] encounter Miscellaneous Notes * Telephone Encounter - Bianca Horton LPN - 07/10/2024 1:45 PM EST Admission/Start of Care Admission/Start of Care: Poppy ALEMAN, Calling from: [facility] Patient was Admitted to: [facility], for: Hypomagnesemia,hypothyroidism, pancreatitis from 07/08 to 07/09 Referral ordered by: [facility] Referral received for: [facility], PT, and OT Planned start of care date:Yes, Date 07/13 Start of care completed on: 07/13 Narrative: Planned start of care per patient request is 07/13. They will call with any updates or additional concerns from the upcoming HH visit. Last Office Visit: 06/22/2024 Has patient been scheduled or seen in the office for a follow up visit: Yes- on-07/10 Advised that orders will be signed by Payal Myers MD and to fax to the office for signature. Please fax orders to [facility] * Telephone Encounter - Kayla Harrison OSA - 07/10/2024 1:42 PM EST Reason for patient's call: [facility] calling regarding orders Caller was transferred to [place] at the nurse line. documented in this encounter Plan of Treatment Upcoming Encounters Date Type Department Care Team (Late st Contact Info) Description 11/05/2024 8:15 AM EDT Imaging Radiology [facility] 1st [facility] [address] [place] [phone] 11/09/2024 11:00 AM EDT Office Visit Gastroenterology, [facility] [address] [place] [phone] Starla Sheriff CRNP [address] [place] [address] 11/09/2024 3:20 PM EDT Office Visit Rheumatology [facility] [address] [place] [phone] Neal Vang MD [address] [facility] [place] [address] 01/04/2025 11:40 AM EDT Office Visit [facility] [address] [facility] [address] [place] [address] Payal Myers MD 200 [facility] [place], [place] [address] 01/14/2025 1:00 PM EDT Office Visit Nephrology, [facility] [address] [facility] [address] [place], [place] [address] Yasemin Villaseñor PA-C [address] [facility] [address] [place], [place] [address] 02/19/2025 3:00 PM EDT Office Visit Nephrology, [facility] [address] [facility] [address] [place], [place] [address] Ant Cardona MD 200 [facility] [place], [place] [address] Health Maintenance Due Date Last Done Comments [...] 06/02/2024 8:01 PM 06/06/2024 9:25 PM This orde r reflects the patients wishes and were consensually agreed upon. Question Answer Comments Discussion of Advance Directives occurred with: Patient Care Teams Phlebotomy Services Technician Relationship Specialty Start Date End Date Payal Myers MD [address] [facility] [place] [address] PCP - General Family Medicine 01/21/24 documented as of this encounter
--- OUTSIDE RECORDS SUMMARY | 2024-11-09 21:46 | External Medical Summary | Summary of Care ---
Author Name Unknown Organization [facility] Address [address] [place] [address] Phone [phone] Care Team Providers Care Lpta Name Role Phone Payal Myers MD Primary Care Provider Encounter Details Date Type Department Care Team (Late st Contact Info) Description 10/01/2024 Orders Only Laboratory [facility] [place] [address] [place] [address] Tel, [place] [address] Serologic autoimmunity* Allergies Active Allergy Reactions Criticality [...] Tablet 2 5 Active Ergocalciferol 1.25 MG (73827 UT) Oral Capsule (Vitamin D2(Drisdol)) Take 1 [...] EDT Hospital Encounter OR [facility], Operating Room, [facility] 1st Floor [address] [place] [address] Justyna León [facility] [address] 11/05/2024 8:15 AM EDT Imaging Radiology [facility] 1st [facility], [address] [place] [address] 11/09/2024 11:00 AM EDT Office Visit Gastroenterology, [facility] [address] [place] [address] Starla Sheriff CRNP [address] [place] [address] 11/09/2024 3:20 PM EDT Office Visit Rheumatology [facility] [address] [place] [phone] Neal Vang MD [address] [facility] [place] [address] 01/04/2025 11:40 AM EDT Office Visit Family Practice [facility] [place] 200 [facility] [place] [address] Payal Myers MD 200 [facility] [place] [address] 01/14/2025 1:00 PM EDT Office Visit Nephrology, [facility] 200 [facility] [place] [address] ZeYasemin jackson PA-C 200 [facility] [place] [address] 02/19/2025 3:00 PM EDT Office Visit Nephrology, [facility] 200 [facility] [place] [address] Ant Cardona MD 200 [facility] [place] [address] Health Maintenance Due Date Last Done Comments [...] Advance Directives occurred with: Patient Care Teams Lpta Relationship Specialty Start Date End Date Payal Myers MD 200 [facility] [place] [address] PCP - General Family Medicine 01/21/24 documented as of this encounter
--- OUTSIDE RECORDS SUMMARY | 2024-11-09 21:46 | External Medical Summary | Summary of Care ---
Author Name Unknown Organization [facility] Address [address] [place] [address] Phone [phone] Care Team Providers Care Stud Setter Name Role Phone Payal Myers MD Primary Care Provider [phone] Reason for Visit * Reason Comments Re-Check Encounter Details Date Type Department Care Team (Latest Contact Info) Description 09/07/2024 11:40 AM EST Office Visit Family Practice [facility] [place] [address] [place] [address] Payal Myers MD 200 [facility] [address] Undifferentiated inflammatory polyarthritis (HCC)*; S/P laparoscopic cholecystectomy; Moderate episode of recurrent major depressive disorder (HCC); LUDA (generalized anxiety disorder); Anemia of chronic disease Allergies Active Allergy Reactions Criticality Noted Date Comments Adalimumab High 05/20/2024 Other Reaction(s): Chills and hot flashes Metoclopramide High 07/08/2024 Other Reaction(s): facial twitch Sulfasalazine Rash Medium 10/23/2023 documented as of this encounter (statuses as of 09/24/2024) Medications Ferrous Sulfate 325 (65 Fe) MG [...] mouth in the morning. 90 Tablet 3 08/03/19 Active linaCLOtide 145 MCG Oral Capsule (Linzess) Take 1 Capsule by mouth daily before breakfast. 30 Capsule 08/03/19 Active Additional Information Patient not taking.Reported on 09/21/2024 Calcium Citrate + D3 200-6.25 MG-MCG Oral Tablet (Calcium Citrate-Vitam in D) Take 2 Tablets by mouth in the morning and 2 Tablets before bedtime. Active Calcitriol 0.5 MCG Oral Capsule (Rocaltrol) Take 1 Capsule by mouth in the morning. 30 Capsule 2 08/07/19 25 Active Fenofibrate 145 MG Oral Tablet (Tricor) Take 1 Tablet by mouth in the morning. 30 Tablet 2 08/07/19 25 Active Ergocalcifero l 1.25 MG (77057 UT) Oral Capsule (Vitamin D2(Drisdol)) Take 1 Capsule by mouth once a week. 12 Capsule 3 08/13/19 Active fluvoxaMINE Maleate 25 MG Oral Tablet (Luvox)Indica tions:Moderat e episode of recurrent major depressive disorder (HCC),LUDA (generalized anxiety disorder) Take 1 Tablet by mouth every night at bedtime. Active FLUoxetine HCl 20 MG Oral Capsule (PROzac)Indic ations:LUDA (generalized anxiety disorder) Take 1 Capsule by mouth in the morning. 90 Capsule 3 01/16/20 24 025 Discontinued Tofacitinib Citrate ER 11 MG Oral Tablet Extended Release 24 Hour (Xeljanz XR) Take 1 tablet by mouth in the morning. 30 Tablet 5 5 11:36 AM EST 07/13/20 24 025 Discontinued(Re fill) Magnesium Oxide 400 MG Oral Tablet Take 2 Tablets by mouth in the morning and 2 Tablets before bedtime. 120 Tablet 2 08/07/19 25 025 Discontinued(Sd dication List Clean Up) documented as of this encounter (statuses as of 09/24/2024) Active Problems Problem Noted Date Diagnosed Date Other chronic pancreatitis 08/17/2024 Recurrent major depressive disorder 08/17/2024 Hypocalcemia 06/07/2024 Isolated proteinuria without specific morphologi c lesion 06/05/2024 Undifferentiated inflammatory polyarthritis 05/22 Anemia of chronic disease 06/02/2024 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 Iron deficiency 02/28/2024 LUDA (generalized anxiety disorder) 10/09/2023 documented as of this encounter (statuses as of 09/24/2024) Resolved Problems Problem Noted Date Diagnosed Date Resolved Date Ileus 06/08/2024 06/13/2024 Rash and nonspecific skin eruption 06/04/2024 09/24/2024 Chest pain, non-cardiac 06/04/202405/23 Idiopathic acute pancreatitis 06/04/2024 06/13/2024 MAS (macrophage activation syndrome) 06/03/2024 08/17/2024 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 Gallstone pancreatitis 06/02/202406/13 Seronegative inflammatory arthritis 10/09/2023 07/10/2024 documented as of this encounter (statuses as of 09/24/2024) Immunizations Name Administration Dates Next Due COVID-19 [...] Sign Reading Time Taken Comments Blood Pressure 110/80 09/07/2024 11:36 AM EST Pulse 114 09/07/2024 11:36 AM EST Temperature 36.5 °C (97.7 °F) 09/07/2024 11:[address] Respiratory Rate 16 09/07/2024 11:36 AM EST Oxygen Saturation 97% 09/07/2024 11:36 AM EST Inhaled Oxygen Concentration - - Weight 48.6 kg (107 lb 1.3 oz) 09/07/2024 11:36 AM EST Height - - Body Mass Index 18.15 06/13/2024 5:54 AM EST documented in this [...] documented in this encounter Progress Notes * Paayl Myers MD - 09/07/2024 11:43 AM EST Subjective Chief Complaint Patient presents with Re-Check HPI: Bhavin Wilson is a 29 year old female. Patient is accompanied by her mother. The following issues were addressed today: Patient presents today for follow-up. Has noticed an improvement in her joint pain with Xeljanz. Had to stop for recent cholecystectomy and is still being held. Joint pain and swelling, especially in her feet, coming back now. Plans to discuss when she can restart it with rheumatology. Prakash moran went well and overall feeling good. She is eating better overall, gaining weight back. Has not been control since hospitalization and has not had a period since then. Met with psych and was started on fluvoxamine for depression and anxiety. Helping some. She is due for updated labs. Review of Systems: See HPI Objective BP 110/80 | Pulse 114 | Temp 97.7 °F (36.5 °C) (Tympanic) | Resp 16 | Wt 107 lb 1.3 oz (48.6 kg) | SpO2 97% | BMI 18.15 kg/m² | BSA 1.49 m² General: Well-appearing, no acute distress Abdomen: Surgical scars are clean, dry, and intact Neurological: Alert and oriented, no focal deficits noted Psychiatric: Appropriate mood and affect Assessment & Plan 1. Undifferentiated inflammatory polyarthritis (HCC) Patient to discuss restarting Xeljanz with rheumatology. Overall has noticed an improvement since starting. Due for update labs. She is seeking a second opinion, still has a lot of questions about diagnoses while in the hospital. - COMPREHENSIVE METABOLIC PANEL; Future - CBC WITH WBC DIFFERENTIAL; Future - MAGNESIUM; Future 2. S/P laparoscopic cholecystectomy Recovering well, incisions are well-healing. 3. Moderate episode of recurrent major depressive disorder (HCC) 4. LUDA (generalized anxiety disorder) Continue Luvox 25mg as prescribed and follow-up with psych. - fluvoxaMINE Maleate 25 MG Oral Tablet (Luvox); Take 1 Tablet by mouth every night at bedtime. 5. Anemia of chronic disease Update CBC. - CBC WITH WBC DIFFERENTIAL; Future Return in about 4 months (around 01/05/2025). This note was electronically signed by Payal Myers MD documented in this encounter Nursing Notes * Cynthia Bay LPN - 09/07/2024 11:34 AM EST Bhavin Wilson presents for 6 month recheck. Medications & HM reviewed. Feet have been swelling and numb Was taken off control in May while in the hospital and has not had a period Having some chest pain but not sure f its from shoulder pain or a combination of heart burn and having her gallbladder out. Had a chest xray a week ago Night sweats and chills sometimes at night documented in this encounter Plan of Treatment Upcoming Encounters Date Type Department Care Team (Late st Contact Info) Description 10/21/2024 2:00 PM EDT [facility], [facility] 1st Floor [address] [place] [address] Lina Arteaga, DO 10 [place] [address] 11/05/2024 8:15 AM EDT Imaging Radiology [facility] 1st [facility] [place] [phone] 11/09/2024 11:00 AM EDT Office Visit Gastroenterology, [facility] 132 [facility] [place] [address] Starla Sheriff CRNP [facility] [place] [address] 11/09/2024 3:20 PM EDT Office Visit Rheumatology [facility] [place] [phone] Neal Vang MD [facility]0 [facility] [place] [address] 01/04/2025 11:40 AM EDT Office Visit Family Practice [facility] [address] [facility] [place] [address] Payal Myers MD 200 [facility] [place] [address] 01/14/2025 1:00 PM EDT Office Visit Nephrology, [facility] [address] [place] [address] ZemaYasemin rock PA-C 200 [facility] [place] [address] 02/19/2025 3:00 PM EDT Office Visit Nephrology, [facility] [address] [place] [place] [address] Ant Cardona MD 200 [facility] [place] [address] Health Maintenance Due Date Last Done Comments [...] as of this encounter Results * (ABNORMAL) COMPREHENSIVE METABOLIC PANEL (09/07/2024 12:24 PM EST) BUN 19 6 - 20 mg/dL 09/07/2024 1:40 PM EST [facility] 56-02 CREATININE 0.5 0.5 - 1.0 mg/dL 09/07/2024 1:40 PM EST [facility] 56-02 EGFR >90 >=60 mL/min 09/07/2024 1:40 PM EST [facility] 56-02 Comment:eGFR is calculated b ased on the CKD-EPI 2020 equation. SODIUM 138 135 - 146 mmol/L 09/07/2024 1:40 PM EST [facility]02 POTASSIUM 4.5 3.5 - 5.1 mmol/L 09/07/2024 1:40 PM EST [facility] 56-02 CHLORIDE 102 98 - 107 mmol/L 09/07/2024 1:40 PM EST [facility] 56- CO2 27 22 - 32 mmol/L 09/07/2024 1:40 PM EST [facility] 56- ANION GAP 9 7 - 15 mmol/L 09/07/2024 1:40 PM EST [facility] 56- GLUCOSE 91 70 - 120 mg/dL 09/07/2024 1:40 PM EST [facility] 56- Albumin 3.5(L) 3.8 - 5.0 g/dL 09/07/2024 1:40 PM EST [facility] 56- AST 72(H) 10 - 35 U/L 09/07/2024 1:40 PM [facility] 56- Alkaline Phosphatase 78 35 - 130 U/L 09/07/2024 1:40 PM [facility] 56- Bilirubin, Total <0.2 <=1.2 mg/dL 09/07/2024 1:40 PM EST [facility] 56- CALCIUM 10.9(H) 8.4 - 10.2 mg/dL 09/07/2024 1:40 PM [facility] 56- Protein 7.4 6.0 - 8.3 g/dL 09/07/2024 1:40 PM [facility] 56- ALT 34 10 - 35 U/L 09/07/2024 1:40 PM [facility] 56- Blood Venous blood specimen / Unknown Venipuncture / Unknown 09/07/2024 12:24 PM EST 09/07/2024 12:24 PM EST us Payal Myers MD LAB BLOOD ORDERABLES Final Resu lt [facility] 56-[address] [place] [address] documented in this encounter Visit Diagnoses Diagnosis Undifferentiated inflammatory polyarthritis (HCC)- Primary Unspecified inflammatory polyarthropathy S/P laparoscopic cholecystectomy Other postprocedural status Moderate episode of recurrent major depressive disorder (HCC) LUDA (generalized anxiety disorder) Generalized anxiety disorder Anemia of chronic disease Anemia of other chronic disease documented in this encounter Advance Directives * [...] Name Relationship Healthcare Agent Relationshi p Communication Howardnabila Barrientos Significant Other Health Care Re presentative (appointed verbally by patient or by statute hierarchy) Care Teams Stud Setter Relationship Specialty Start Date End Date Payal Myers MD [address] [place] [address] PCP - General Family Medicine 01/21/24 documented as of this encounter"
--- OUTSIDE RECORDS SUMMARY | 2024-11-09 21:47 | External Medical Summary | Summary of Care ---
Author Name Unknown Organization [facility] Address [address] [place] [address] Phone [phone] Care Team Providers Care Dbas Name Role Phone Payal Myers MD Primary Care Provider [phone] Encounter Details Date Type Department Care Team (Late st Contact Info) Description 09/08/2024 Orders Only Family Practice [facility] 200 [facility] [place] [address] Payal Myers MD 200 [place] [address] Allergies Active Allergy Reactions Criticality Noted Date Comments Adalimumab High 05/20/2024 Other Reaction(s): Chills and hot flashes Metoclopramide High 07/08/2024 Other Reaction(s): facial twitch Sulfasalazine Rash Medium 10/23/2023 documented as of this encounter (statuses as of 09/08/2024) Medications Ferrous Sulfate 325 (65 Fe) MG [...] mouth in the morning. 90 Tablet 3 08/03/2024 Active linaCLOtide 145 MCG Oral Capsule (Linzess) Take 1 Capsule by mouth daily before breakfast. 30 Capsule 11 08/03/2024 Active Calcium Citrate + D3 200-6.25 MG-MCG Oral Tablet (Calcium Citrate-Vitamin D) Take 2 Tablets by mouth in the morning and 2 Tablets before bedtime. Active Calcitriol 0.5 MCG Oral Capsule (Rocaltrol) Take 1 Capsule by mouth in the morning. 30 Capsule 2 08/07/2024 Active Magnesium Oxide 400 MG Oral Tablet Take 2 Tablets by mouth in the morning and 2 Tablets before bedtime. 120 Tablet 2 08/07/2024 Active Fenofibrate 145 MG Oral Tablet (Tricor) Take 1 Tablet by mouth in the morning. 30 Tablet 2 08/07/2024 Active Ergocalciferol 1.25 MG (30965 UT) Oral Capsule (Vitamin D2(Drisdol)) Take 1 Capsule by mouth once a week. 12 Capsule 3 08/13/2024 Active fluvoxaMINE Maleate 25 MG Oral Tablet (Luvox) Take 1 Tablet by mouth every night at bedtime. Active Tofacitinib Citrate ER 11 MG Oral Tablet Extended Release 24 Hour (Xeljanz XR) Take 1 Tablet by mouth in the morning. 30 Tablet 5 09/07/2024 Active documented as of this encounter (statuses as of 09/08/2024) Active Problems Problem Noted Date Diagnosed Date Other chronic pancreatitis 08/17/2024 Recurrent major depressive disorder 08/17/2024 Hypocalcemia 06/07/2024 Isolated proteinuria without specific morphologi c lesion 06/05/2024 Rash and nonspecific skin eruption 06/04/2024 Undifferentiated inflammatory polyarthritis 05/22 Anemia of chronic disease 06/02/2024 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 Iron deficiency 02/28/2024 LUDA (generalized anxiety disorder) 10/09/2023 documented as of this encounter (statuses as of 09/08/2024) Resolved Problems Problem Noted Date Diagnosed Date Resolved Date Ileus 06/08/2024 06/13/2024 Chest pain, non-cardiac 06/04/202405/23 Idiopathic acute pancreatitis 06/04/2024 06/13/2024 MAS (macrophage activation syndrome) 06/03/2024 08/17/2024 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 Gallstone pancreatitis 06/02/202406/13 Seronegative inflammatory arthritis 10/09/2023 07/10/2024 documented as of this encounter (statuses as of 09/08/2024) Immunizations Name Administration Dates Next Due COVID-19 [...] Answer Date Recorded PHQ Adult Total Score 12 08/12/2024 Hunger Vital Sign Answer Date Recorded Within [...] Care Team (Late st Contact Info) Description 09/21/2024 9:30 AM EST Office Visit General Surgery, [facility] [address] [place] [address] Noah Campbell MD [address] [place] [address] 10/21/2024 2:00 PM EDT Appointment OR [facility], Operating Room, [facility] 1st Floor [address] [place] [address] Lina Arteaga, DO 10 [place] [address] 11/05/2024 8:15 AM EDT Imaging Radiology [address] [place] [phone] 11/09/2024 11:00 AM EDT Office Visit Gastroenterology, [facility] [address] [place] [address] Starla Sheriff CRNP [address] [place] [address] 11/09/2024 3:20 PM EDT Office Visit Rheumatology [facility] [address] [place] [phone] Neal Vang MD [address] [place] [address] [place] [address] 01/04/2025 11:40 AM EDT Office Visit Family Practice [facility] [place] [address] [place] [address] Payal Myers MD [address] [place] [address] 01/14/2025 1:00 PM EDT Office Visit Nephrology, [facility] [place] [address] [place] [address] Yasemin Villaseñor PA-C [address] [place] [address] 02/19/2025 3:00 PM EDT Office Visit Nephrology, [facility] [place] [address] [place], [place] [address] Ant Cardona MD [address] [place] [address] Health Maintenance Due Date Last Done Comments COVID-19 Vaccine ( season) 2024 12/04/2020, 11/06/2020 Pap Smear 06/25/2025 06/25/2022, 02/11/2019 Depression Monitoring 08/12/2025 08/12/2024, 024 DTap/Tdap Vaccines (8 - Td or [...] Procedure Name Priority Date/Time Associated Diagnosis Comments CHEMISTRY-OUTSIDE Routine 08/31/2024 documented in this encounter Results * (ABNORMAL) CHEMISTRY-OUTSIDE (08/31/2024) Not all results display below - see scan for full detail OUTSIDE LAB (SEE SCANNED REPORT) Comment:SCAN INCL: [facility] CREATININE OUTSIDE L AB (SEE SCANNED REPORT) EGFR OUTSIDE LA B (SEE SCANNED REPORT) POTASSIUM OUTSIDE LA B (SEE SCANNED REPORT) GLUCOSE OUTSIDE LA B (SEE SCANNED REPORT) HOURS FASTING OUTSID E LAB (SEE SCANNED REPORT) TRIGLYCERIDES-OUT SIDE LAB OUTSIDE LAB (SEE SCANNED REPORT) CHOLESTEROL-OUTSI DE LAB OUTSIDE LAB (SEE SCANNED REPORT) HDL-OUTSIDE LAB OUTS YOLIS LAB (SEE SCANNED REPORT) CHOL/HDL RATIO-OUTSIDE LAB OUTSIDE LA B (SEE SCANNED REPORT) LDL (CALCULATED)-OUTS YOLIS LAB OUTSIDE LAB (SEE SCANNED REPORT) LDL (DIRECT MEASURE)-OUTSIDE LAB OUTSIDE LAB (SEE SCANNED REPORT) HEMOGLOBIN, [id number] LAB OUTSIDE LAB (SEE SCANNED REPORT) PHOSPHORUS-OUTSID E LAB OUTSIDE LAB (SEE SCANNED REPORT) PTH-OUTSIDE LAB OUTS YOLIS LAB (SEE SCANNED REPORT) MICROALBUMIN RATIO-OUTSIDE LAB OUTSIDE LA B (SEE SCANNED REPORT) PROTEIN, UA-OUTSIDE LAB OUTSIDE LAB (SEE SCANNED REPORT) HGB 9.0(A) 12.0 - 16.0 G/DL OUTSIDE LAB (SEE SCANNED REPORT) 08/31/2024 us History Per Patient LABORATORY Final Result OUTSIDE LAB (SEE SCANNED REPORT) documented in this encounter Advance Directives * [...] patient or by statute hierarchy) Care Teams Dbas Relationship Specialty Start Date End Date Payal Myers MD [address] [place] [address] PCP - General Family Medicine 01/21/24 documented as of this encounter
--- OUTSIDE RECORDS SUMMARY | 2024-11-09 21:47 | External Medical Summary | Summary of Care ---
Author Name Unknown Organization [facility] Address [address] [place] [address] Phone [phone] Care Team Providers Care Molecular Modeler Name Role Phone Payal Myers MD Primary Care Provider [phone] Reason for Visit * Reason Onset Date Comments Advice 09/03/2024 Encounter Details Date Type Department Care Team (Late st Contact Info) Description 09/03/2024 Telephone [facility] [address] [place] [address] Lina Arteaga DO 10 [place] [address] Advice Allergies Active Allergy Reactions Criticality Noted Date Comments Adalimumab High 05/20/2024 Other Reaction(s): Chills and hot flashes Metoclopramide High 07/08/2024 Other Reaction(s): facial twitch Sulfasalazine Rash Medium 10/23/2023 documented as of this encounter (statuses as of 09/03/2024) Medications FLUoxetine HCl 20 MG Oral Capsule (PROzac)Indicat [...] Tablet by mouth in the morning. Active Tofacitinib Citrate ER 11 MG Oral Tablet Extended Release 24 Hour (Xeljanz XR) Take 1 tablet by mouth in the morning. 30 Tablet 5 08/14/2024 11:36 AM EST 4 Active Omeprazole 20 MG Oral Tablet Delayed Release Take 1 Tablet by mouth in the morning. 90 Tablet 3 5 Active linaCLOtide 145 MCG Oral Capsule (Linzess) Take 1 Capsule by mouth daily before breakfast. 30 Capsule 11 5 Active Additional Information Patient not taking.Reported on 08/07/2024 Calcium Citrate + D3 200-6.25 MG-MCG Oral Tablet (Calcium Citrate-Vitamin D) Take 2 Tablets by mouth in the morning and 2 Tablets before bedtime. Active Calcitriol 0.5 MCG Oral Capsule (Rocaltrol) Take 1 Capsule by mouth in the morning. 30 Capsule 2 Active Magnesium Oxide 400 MG Oral Tablet Take 2 Tablets by mouth in the morning and 2 Tablets before bedtime. 120 Tablet 2 5 Active Fenofibrate 145 MG Oral Tablet (Tricor) Take 1 Tablet by mouth in the morning. 30 Tablet 2 Active Ergocalciferol 1.25 MG (15834 UT) Oral Capsule (Vitamin D2(Drisdol)) Take 1 Capsule by mouth once a week. 12 Capsule 3 5 Active documented as of this encounter (statuses as of 09/03/2024) Active Problems Problem Noted Date Diagnosed Date Other chronic pancreatitis 08/17/2024 Recurrent major depressive disorder 08/17/2024 Hypocalcemia 06/07/2024 Isolated proteinuria without specific morphologi c lesion 06/05/2024 Rash and nonspecific skin eruption 06/04/2024 Undifferentiated inflammatory polyarthritis 05/22 Anemia of chronic disease 06/02/2024 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 Iron deficiency 02/28/2024 LUDA (generalized anxiety disorder) 10/09/2023 documented as of this encounter (statuses as of 09/03/2024) Resolved Problems Problem Noted Date Diagnosed Date Resolved Date Ileus 06/08/2024 06/13/2024 Chest pain, non-cardiac 06/04/202405/23 Idiopathic acute pancreatitis 06/04/2024 06/13/2024 MAS (macrophage activation syndrome) 06/03/2024 08/17/2024 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 Gallstone pancreatitis 06/02/202406/13 Seronegative inflammatory arthritis 10/09/2023 07/10/2024 documented as of this encounter (statuses as of 09/03/2024) Immunizations Name Administration Dates Next Due COVID-19 [...] encounter Miscellaneous Notes * Telephone Encounter - Fabricio Garcia RN - 09/03/2024 3:41 PM EST Dina, patient had a lap maria guadalupe on 08/31 with you. She needs to have EGD and colonoscopy as soon as she can. From your standpoint, is she OK to have the procedures on 10/21/24? I see that she has a follow up appointment with you on 09/21. Could you let us know if she can proceed with the procedures on 10/21 after you see her, please ? Thank you very much. EGD and colonoscopy are scheduled at [facility] with Dr. Lina Arteaga on 10/21/24. documented in this encounter Plan of Treatment Upcoming Encounters Date Type Department Care Team (Late st Contact Info) Description 09/07/2024 11:40 AM EST [facility] [place] [address] Payal Myers MD [address] [facility] [place] [address] 09/21/2024 9:30 AM EST Office Visit General Surgery, [facility] [address] [place] [address] Noah Campbell MD [address] [place] [address] 10/21/2024 2:00 PM EDT Appointment OR [facility], Operating Room, [facility] 1st Floor [facility] [place] [address] Lina Arteaga, DO 10 [place] [address] 11/05/2024 8:15 AM EDT Imaging Radiology [address] [place] [phone] 11/09/2024 11:00 AM EDT Office Visit Gastroenterology, [facility] [address] [place] [address] Starla Sheriff CRNP [address] [place] [address] 11/09/2024 3:20 PM EDT Office Visit Rheumatology [facility] [address] [place] [phone] Neal Vang MD [facility]0 [facility] [place] [address] 01/14/2025 1:00 PM EDT Office Visit Nephrology, [facility] [address] [facility] [place] [address] Yasemin Villaseñor PA-C [address] [facility] [place] [address] 02/19/2025 3:00 PM EDT Office Visit Nephrology, [facility] [address] [facility] [place] [address] Ant Cardona MD [address] [place] [address] Health Maintenance Due Date Last Done Comments COVID-19 Vaccine (2023- season) 2024 12/04/2020, 11/06/2020 Pap Smear 06/25/2025 [...] patient or by statute hierarchy) Care Teams Molecular Modeler Relationship Specialty Start Date End Date Payal Myers MD [address] [place] [address] PCP - General Family Medicine 01/21/24 documented as of this encounter
--- OUTSIDE RECORDS SUMMARY | 2024-11-09 21:47 | External Medical Summary ---
Author Name Unknown Address Unknown Organization K09:[facility] [address] [place] [address] Laboratory Report Ordering Provider Test Date Status MARIELA PANTOJA 09/07/2024 12:24:49 Final Observation Date Value Abnormality Reference (Units ) Status BUN 09/07/2024 12:24:49 19 6-20 (mg/dL) Final Creatinine 09/07/2024 12:24:49 0.5 0.5-1.0 (mg/dL) Final Glomerular filtration rate/1.73 sq M.predicted [Volume Rate/Area] in Serum, Plasma or Blood by Creatinine-based formula (CKD-EPI) 09/07/2024 12:24:49 >90 >=60 (mL/min) Final eGFR is calculated based on the CKD-EPI 2020 equation. Sodium 09/07/2024 12:24:49 138 135-146 (m mol/L) Final Potassium 09/07/2024 12:24:49 4.5 3.5-5.1 (m mol/L) Final Cl 09/07/2024 12:24:49 102 98-107 (mm ol/L) Final CO2 09/07/2024 12:24:49 27 22-32 (mmo l/L) Final Anion gap 09/07/2024 12:24:49 9 7-15 (mmol /L) Final Glucose 09/07/2024 12:24:49 91 70-120 (mg /dL) Final Albumin 09/07/2024 12:24:49 3.5 Below low normal 3.8 -5.0 (g/dL) Final AST (Aspartate aminotransferase) 09/07/2024 12:24:49 72 Above high normal 10-35 (U/L) Final Alk Phos 09/07/2024 12:24:49 78 35-130 (U/ L) Final Bilirubin, Total 09/07/2024 12:24:49 <0.2 <=1 .2 (mg/dL) Final Calcium 09/07/2024 12:24:49 10.9 Above high normal 8. 4-10.2 (mg/dL) Final Protein 09/07/2024 12:24:49 7.4 6.0-8.3 (g /dL) Final ALT (Alanine aminotransferase) 09/07/2024 12:24:49 34 10-35 (U/L) Colin terry Performing Location [facility] [address] [place] [address]
--- OUTSIDE RECORDS SUMMARY | 2024-11-09 21:47 | External Medical Summary | Summary of Care ---
Author Name Unknown Organization [facility] Address [address] [place] [address] Phone [phone] Care Team Providers Care Depositing Machine Operator Name Role Phone Payal Myers MD Primary Care Provider [phone] Reason for Visit * Reason Comments Rheum Follow Up Follow up - TMJ Encounter Details Date Type Department Care Team (Latest Contact Info) Description 09/16/2024 3:20 PM EST Office Visit Rheumatology [facility] [address] [place] [address] [facility] [address] [facility] [address] Undifferentiated inflammatory polyarthritis (HCC)*; Encounter for long-term (current) use of medications Allergies Active Allergy Reactions Criticality Noted Date Comments Adalimumab High 05/20/2024 Other Reaction(s): Chills and hot flashes Metoclopramide High 07/08/2024 Other Reaction(s): facial twitch Sulfasalazine Rash Medium 10/23/2023 documented as of this encounter (statuses as of 09/17/2024) Medications Ferrous Sulfate 325 (65 Fe) MG Oral Tablet Delayed Release Take 1 Tablet by mouth. Every other day. Active B-12 500 MCG Oral Tablet Take 2 Tablets by mouth in the morning. Active Sodium Chloride 1 GM Oral Tablet Take 1 Tablet by mouth in the morning. Active Omeprazole 20 MG Oral Tablet Delayed Release Take 1 Tablet by mouth in the morning. 90 Tablet 3 5 Active linaCLOtide 145 MCG Oral Capsule (Linzess) Take 1 Capsule by mouth daily before breakfast. 30 Capsule 11 5 Active Calcium Citrate + D3 200-6.25 MG-MCG [...] Tablet 2 5 Active Ergocalciferol 1.25 MG (81807 UT) Oral Capsule (Vitamin D2(Drisdol)) Take 1 Capsule by mouth once a week. 12 Capsule 3 5 Active fluvoxaMINE Maleate 25 MG Oral Tablet (Luvox) Take 1 Tablet by mouth every night at bedtime. Active Tofacitinib Citrate ER 11 MG Oral Tablet Extended Release 24 Hour (Xeljanz XR) Take 1 Tablet by mouth in the morning. 30 Tablet 5 5 Active predniSONE 5 MG Oral Tablet (Deltasone) Take 4 Tablets by mouth daily for 3 days, THEN 3 Tablets daily for 3 days, THEN 2 Tablets daily for 3 days, THEN 1 Tablet daily for 3 days. 30 Tablet 5 09/28/19 25 Active Magnesium Oxide 400 MG Oral Tablet Take 2 Tablets by mouth in the morning and 2 Tablets before bedtime. 120 Tablet 2 5 09/16/19 25 Discontinu ed(Medicat ion List Clean Up) documented as of this encounter (statuses as of 09/17/2024) Active Problems Problem Noted Date Diagnosed Date Other chronic pancreatitis 08/17/2024 Recurrent major depressive disorder 08/17/2024 Hypocalcemia 06/07/2024 Isolated proteinuria without specific morphologi c lesion 06/05/2024 Rash and nonspecific skin eruption 06/04/2024 Undifferentiated inflammatory polyarthritis 05/22 Anemia of chronic disease 06/02/2024 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 Iron deficiency 02/28/2024 LUDA (generalized anxiety disorder) 10/09/2023 documented as of this encounter (statuses as of 09/17/2024) Resolved Problems Problem Noted Date Diagnosed Date Resolved Date Ileus 06/08/2024 06/13/2024 Chest pain, non-cardiac 06/04/202405/23 Idiopathic acute pancreatitis 06/04/2024 06/13/2024 MAS (macrophage activation syndrome) 06/03/2024 08/17/2024 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 Gallstone pancreatitis 06/02/202406/13 Seronegative inflammatory arthritis 10/09/2023 07/10/2024 documented as of this encounter (statuses as of 09/17/2024) Immunizations Name Administration Dates Next Due COVID-19 [...] Pressure - - Pulse - - Temperature 36.5 °C (97.7 °F) 09/16/2024 3:13 PM ES T Respiratory Rate - - Oxygen Saturation - - Inhaled Oxygen Concentration - - Weight 48.1 kg (106 lb) 09/16/2024 3:13 PM EST Height - - Body Mass [...] documented in this encounter Progress Notes * Neal Vang MD - 09/16/2024 4:27 PM EST Subjective: Meds tried: kineret, canakinumab, humira, ssz Patient seen today for further follow up evaluation of seronegative polyarthritis, undifferentiatedspondyloarthropathy. Since the last visit she did have a kidney biopsy that was normal. She did endup getting her gallbladder out several weeks ago and had to stop Xeljanz. She had noted some positive benefit from Xeljanz but with stopping for surgery she started having increasing pains. We restarted the medication about 9 days ago. She contacted me yesterday and we started a prednisone taper for increasing musculoskeletal pain and lower extremity edema. She is here with her mother. They report that she is going to be starting physical therapy soon. She also has an appointment with [facility] Rheumatology department's in September for another opinion. 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 She was not felt to have Still's disease. She has gained some weight back but is still down about 20 lb. She was supposed to have a colonoscopy for her abdominal complaints but that was pushed off because of the gallbladder surgery. Musculoskeletal ROS: . Abnormal: joint pain and joint swelling . AM stiffness (hours): 1 . Pain scale (0-10): 6 Other ROS: . Constitutional: weight loss . Head normal . Eyes: normal . Ears, nose, throat, mouth: normal . Cardiovascular: edema . Respiratory: normal . Gastrointestinal: abdominal pain . Genitourinary: normal . Skin: normal All other ROS reviewed and negative Social History: Social History Tobacco Use Smoking status: Never Smokeless tobacco: Never Substance Use Topics Alcohol use: Not Currently Comment: occasionaly Vaping/E-Cigarette Use Vaping/E-Cigarette Use Never User Vaping/E-Cigarette Substances Vaping/E-Cigarette Devices Current Outpatient Medications Medication Sig Dispense Refill Ferrous Sulfate 325 (65 Fe) MG Oral Tablet Delayed Release Take 1 Tablet by mouth. Every other day. B-12 500 MCG Oral Tablet Take 2 Tablets by mouth in the morning. Sodium Chloride 1 GM Oral Tablet Take 1 Tablet by mouth in the morning. Omeprazole 20 MG Oral Tablet Delayed Release Take 1 Tablet by mouth in the morning. 90 Tablet 3 linaCLOtide 145 MCG Oral Capsule (Linzess) Take 1 Capsule by mouth daily before breakfast. 30 Capsule 11 Calcium Citrate + D3 200-6.25 MG-MCG Oral Tablet (Calcium Citrate-Vitamin D) Take 2 Tablets by mouth in the morning and 2 Tablets before bedtime. Calcitriol 0.5 MCG Oral Capsule (Rocaltrol) Take 1 Capsule by mouth in the morning. 30 Capsule 2 Fenofibrate 145 MG Oral Tablet (Tricor) Take 1 Tablet by mouth in the morning. 30 Tablet 2 Ergocalciferol 1.25 MG (44070 UT) Oral Capsule (Vitamin D2(Drisdol)) Take 1 Capsule by mouth once aweek. 12 Capsule 3 fluvoxaMINE Maleate 25 MG Oral Tablet (Luvox) Take 1 Tablet by mouth every night at bedtime. Tofacitinib Citrate ER 11 MG Oral Tablet Extended Release 24 Hour (Xeljanz XR) Take 1 Tablet by mouth in the morning. 30 Tablet 5 predniSONE 5 MG Oral Tablet (Deltasone) Take 4 Tablets by mouth daily for 3 days, THEN 3 Tablets daily for 3 days, THEN 2 Tablets daily for 3 days, THEN 1 Tablet daily for 3 days. 30 Tablet 0 No current facility-administered medications for this visit. Physical Exam: Temp 36.5 °C (97.7 °F) (Infrared ) | Wt 48.1 kg (106 lb) | BMI 17.96 kg/m² | BSA 1.48 m² General: alert, thin, but does appear better since last visit Neck: supple, no adenopathy, thyroid normal size, non-tender, without nodularity Lymph: no palpable lymphadenopathy Heart: regular rate & rhythm, no murmur, and no gallops Lungs: clear to auscultation , no rales, wheezes or rhonchi Abdomen: abdomen soft, non-tender, and normal bowel sounds Extremities: no clubbing, no cyanosis, LE edema noted Musculoskeletal Exam: . Synovitis: none noted for hands . Tenderness: yes MTPs, knees . Effusion: none No Achilles enthesitis Assessment: (M06.4) Undifferentiated inflammatory polyarthritis (HCC) (primary encounter diagnosis) (Z79.899) Encounter for long-term (current) use of medications She is back on Xeljanz and started a prednisone taper yesterday with some benefit. Will continue with current regimen. Await another opinion from [facility] in September. Plan: 1. Continue with prednisone taper 2. Continue with Xeljanz 3. Await 2nd opinion from [facility] 4. Contact with any issues 5. Agree with physical therapy 6. Return to clinic in October Neal Vang MD Department of Rheumatology documented in this encounter Nursing Notes * Una Ruelas LPN - 09/16/2024 3:12 PM EST Chief Complaint Patient presents with Rheum Follow Up Follow up - TMJ documented in this encounter Plan of Treatment Upcoming Encounters Date Type Department Care Team (Late st Contact Info) Description 09/21/2024 9:30 AM EST Office Visit General Surgery, [facility] [address] [place] [address] Noah Campbell MD [address] [place] [address] 10/21/2024 2:00 PM EDT Appointment OR [facility], Operating Room, [facility] 1st Floor [address] [place] [id number] Lina Arteaga, DO [address] [place] [address] 11/05/2024 8:15 AM EDT Imaging Radiology [address] [place] [phone] 11/09/2024 11:00 AM EDT Office Visit Gastroenterology, [facility] 132 [facility] [place] [address] Starla Sheriff CRNP [facility] [place] [address] 11/09/2024 3:20 PM EDT Office Visit [facility]umatology [facility] [place] [phone] Neal Vang MD [facility] [place] [address] 01/04/2025 11:40 AM EDT Office Visit Family Practice [facility] [address] [place] [address] Payal Myers MD [address] [place] [address] 01/14/2025 1:00 PM EDT Office Visit Nephrology, [facility] [address] [place] [address] Yasemin Villaseñor PA-C [address] [place] [address] 02/19/2025 3:00 PM EDT Office Visit Nephrology, [address] [place] [address] Ant Cardona MD [address] [place] [address] Health Maintenance Due Date Last Done Comments [...] inflammatory polyarthritis (HCC)- Primary Unspecified inflammatory polyarthropathy Encounter for long-term (current) use of medications Encounter for long-term (current) use of other medications documented in this encounter Advance Directives * [...] Agents on File Name Relationship Healthcare Agent [facility] Howard Barrientos Significant Other Health Care Re presentative (appointed verbally by patient or by statute hierarchy) Care Teams Depositing Machine Operator Relationship Specialty Start Date End Date Payal Myers MD [address] [place] [address] PCP - General Family Medicine 01/21/24 documented as of this encounter"
--- OUTSIDE RECORDS SUMMARY | 2024-11-09 21:47 | External Medical Summary | Summary of Care ---
Author Name Unknown Organization [facility] Address [address] [place] [address] Phone [phone] Care Team Providers Care Deckhand Engineer Name Role Phone Payal Myers MD Primary Care Provider [phone] Reason for Referral * Evaluate & Treat - Unlimited Visits (Within 30 days (routine)) - Authorized Specialty Diagnoses / Procedures Referred By Contac t Referred To Contact Rheumatology Diagnoses Undifferentiated inflammatory polyarthritis (HCC) Payal Myers MD [address] [place] [address] Phone: tel: fax: Referral ID Status Reason Start Date Expiration Date Visits Requested Visits Authorized [id number] Authorized Specialty Services Required 09/24/[phone] Question Answer Referral Priority Within 30 days (routine) Where should this appointment be scheduled? External - [facility] Reason for referral: Inflammatory arthritis/Autoimmune or Connective Tissue Diseases Reason for Visit * Reason Onset Date Comments Referral 09/22/2024 Encounter Details Date Type Department Care Team (Late st Contact Info) Description 09/22/2024 Telephone Family Practice State [facility] [address] [place] [address] Payal yMers MD [address] [place] [address] Referral Allergies Active Allergy Reactions Criticality Noted Date [...] Tablet 2 5 Active Ergocalciferol 1.25 MG (01482 UT) Oral Capsule (Vitamin D2(Drisdol)) Take 1 [...] days. 30 Tablet 5 09/28/19 25 Active documented as of this encounter (statuses [...] PM EST Benscoter , Elaine M, RN * Do you have difficulty dressing [...] Telephone Encounter - Jessy Barrientos OSA - 09/24/2024 11:17 AM EST Referral faxed to number listed * Telephone Encounter - Payal Myers MD - 09/24/2024 7:36 AM EST Referral signed, can fax as requested * Telephone Encounter - Adia Chang LPN - 09/23/2024 11:59 AM EST Order pended please sign if agreeable. * Telephone Encounter - Jeanie Robertson OSA - 09/22/2024 11:19 AM EST Ange from [facility] is calling to have a referral sent to them for rheumatology. [facility] [phone] Diagnosis code R68.[address] [place] [address] CPT Code 06338 documented in this encounter Plan of Treatment Upcoming Encounters Date Type Department Care Team (Late st Contact Info) Description 10/21/2024 2:00 PM EDT Appointment OR [facility], Operating Room, [facility] 1st Floor [address] [place] [address] Lina Arteaga, DO 10 [place] [address] 11/05/2024 8:15 AM EDT Imaging Radiology [facility] 1st [facility] [address] [place] [phone] 11/09/2024 11:00 AM EDT Office Visit Gastroenterology, [facility] [address] [place] [address] Starla Sheriff CRNP [address] [place] [address] 11/09/2024 3:20 PM EDT Office Visit Rheumatology [facility] [address] [place] [phone] Neal Vang MD [address] [place] [address] [place] [address] 01/04/2025 11:40 AM EDT Office Visit Family Practice [facility] [place] [address] [place] [address] Payal Myers MD [address] [place] [address] 01/14/2025 1:00 PM EDT Office Visit [facility] [address] [place] [address] Yasemin Villaseñor PA-C [address] [place] [address] 02/19/2025 3:00 PM EDT Office Visit Nephrology, [address] [address] [place] [address] Ant Cardona MD 200 [facility] [place] [address] Scheduled Referrals Name Type Priority Associated Diagnoses Orde r Schedule RHEUMATOLOGY REFERRAL OP Referral Within 30 days (routine) Undifferentiated inflammatory polyarthritis (HCC) Ordered: 09/24/2024 Health Maintenance Due Date Last Done Comments [...] inflammatory polyarthritis (HCC)- Primary Unspecified inflammatory polyarthropathy documented in this encounter Advance Directives * [...] patient or by statute hierarchy) Care Teams Deckhand Engineer Relationship Specialty Start Date End Date Payal Myers MD 200 [facility] [place] [address] PCP - General Family Medicine 01/21/24 documented as of this encounter
--- OUTSIDE RECORDS SUMMARY | 2024-11-09 21:47 | External Medical Summary | Summary of Care ---
Author Name Unknown Organization [facility] Address [address] [place] [address] Phone [phone] Care Team Providers Care Registered Nurse First Assistant Name Role Phone Payal Myers MD Primary Care Provider [phone] Encounter Details Date Type Department Care Team (Late st Contact Info) Description 08/31/2024 Result Scan Unspecified Department <No scans attached> [...] Tablet 2 08/07/2024 Active Ergocalciferol 1.25 MG (34326 UT) Oral Capsule (Vitamin D2(Drisdol)) Take 1 Capsule by mouth once a week. 12 Capsule 3 08/13/2024 Active documented as of this encounter (statuses [...] 9:30 AM EST Office Visit General Surgery, [facility] 132 [facility] [place] [address] Noah Campbell MD 132 [facility] [place] [address] 10/21/2024 2:00 PM EDT Appointment OR [facility], Operating Room, [facility] 1st Floor [address] [place] [address] Lina Arteaga DO [address] [place] [address] 11/05/2024 8:15 AM EDT Imaging Radiology [facility] 1st [facility] [address] [place] [address] 11/09/2024 11:00 AM EDT Office Visit Gastroenterology, [facility] [address] [place] [address] Starla Sheriff CRNP [address] [place] [address] 11/09/2024 3:20 PM EDT Office Visit Rheumatology [facility] [address] [place] [phone] Neal Vang MD [facility] [place] [address] 01/04/2025 11:40 AM EDT Office Visit Family Practice [facility] [place] [address] [place] [address] Payal Myers MD [address] [place] [address] 01/14/2025 1:00 PM EDT Office Visit Nephrology, [facility] [address] [place] [address] ZeYasemin jackson PA-C 200 [facility] [place] [place] [address] 02/19/2025 3:00 PM EDT Office Visit Nephrology, [facility] [address] [place] [address] Ant Cardona MD [address] [place] [address] Health Maintenance Due Date Last Done Comments [...] Procedure Name Priority Date/Time Associated Diagnosis Comments RADIOLOGY SCANNED RESULT 08/31/2024 RADIOLOGY SCANNED RESULT 08/31/2024 documented in this encounter Results * RADIOLOGY SCANNED RESULT (08/31/2024) 08/31/2024 us No Physician Data Unknown DIAGNOSTIC RADIOLOGY S ERVICES Final Result * RADIOLOGY SCANNED RESULT (08/31/2024) 08/31/2024 us No Physician Data Unknown DIAGNOSTIC RADIOLOGY S ERVICES Final Result documented in this encounter Advance [...] patient or by statute hierarchy) Care Teams Registered Nurse First Assistant Relationship Specialty Start Date End Date Payal Myers MD 200 [place] [address] PCP - General Family Medicine 01/21/24 documented as of this encounter
--- OUTSIDE RECORDS SUMMARY | 2024-11-09 21:47 | External Medical Summary ---
Author Name Unknown Address Unknown Organization [facility]09[facility] [place] [address] Laboratory Report Ordering Provider Test Date Status MARIELA PANTOJA 09/07/2024 12:24:49 Final Observation Date Value Abnormality Reference (Units ) Status Nucleated erythrocytes/100 leukocytes [Ratio] in Blood by Automated count 09/07/2024 12:24:49 Final Performing Location [facility] [place] [address]
--- OUTSIDE RECORDS SUMMARY | 2024-11-09 21:47 | External Medical Summary | Summary of Care ---
Author Name Unknown Organization [facility] Address [address] [place] [address] Phone [phone] Care Team Providers Care Watch Assembler Name Role Phone Payal Myers MD Primary Care Provider [phone] Reason for Referral * Evaluate & Treat - Unlimited Visits (Within 30 days (routine)) - Authorized Specialty Diagnoses / Procedures Referred By Contac t Referred To Contact Rheumatology Diagnoses Undifferentiated inflammatory polyarthritis (HCC) Payal Myers MD [address] [place] [address] Phone: tel: fax: Referral ID Status Reason Start Date Expiration Date Visits Requested Visits Authorized [id number] Authorized Specialty Services Required 09/24/[phone] Question Answer Referral Priority Within 30 days (routine) Where should this appointment be scheduled? External - [facility] Reason for referral: Inflammatory arthritis/Autoimmune or Connective Tissue Diseases Reason for Visit * Reason Onset Date Comments Referral 09/22/2024 Encounter Details Date Type Department Care Team (Late st Contact Info) Description 09/22/2024 Telephone Family Practice State [facility] E [facility] [address] [place] [address] Payal Myers MD [address] [place] [address] Referral Allergies Active Allergy Reactions Criticality Noted [...] Tablet 2 5 Active Ergocalciferol 1.25 MG (93343 UT) Oral Capsule (Vitamin D2(Drisdol)) Take 1 [...] 06/02/2024 7:41 PM Elaien Hatch RN * Do you have difficulty [...] encounter Miscellaneous Notes * Telephone Encounter - Payal Myers MD - 09/24/2024 7:36 AM EST Referral signed, can fax as requested * Telephone Encounter - Adia Chang LPN - 09/23/2024 11:59 AM EST Order pended please sign if agreeable. * Telephone Encounter - Jeanie Robertson OSA - 09/22/2024 11:19 AM EST Ange from [facility] is calling to have a referral sent to them for rheumatology. [facility] [id number] Diagnosis code R68.[address] [place] [address] CPT Code 22060 documented in this encounter Plan of Treatment Upcoming Encounters Date Type Department Care Team (Late st Contact Info) Description 10/21/2024 2:00 PM EDT Appointment OR [facility], Operating Room, [facility] 1st Floor [address] [place] [address] Lina Arteaga, DO 10 [place] [address] 11/05/2024 8:15 AM EDT Imaging Radiology [facility] 1st [facility] [place] [address] 11/09/2024 11:00 AM EDT Office Visit [facility], [facility] [place] [address] Starla Sheriff CRNP [facility] [place] [address] 11/09/2024 3:20 PM EDT Office Visit Rheumatology [facility] [address] [place] [phone] Neal Vang MD [address] [place] [address] [place] [address] 01/04/2025 11:40 AM EDT Office Visit Family Practice [facility] [address] [place] [address] Payal Myers MD 200 [facility] [place] [address] 01/14/2025 1:00 PM EDT Office Visit Nephrology, [facility] [address] [place] [address] Yasemin Villaseñor PA-C 200 [facility] [place] [address] 02/19/2025 3:00 PM EDT Office Visit Nephrology, [facility] [address] [place] [address] Ant Cardona MD [address] [place] [place] [address] Scheduled Referrals Name Type Priority Associated Diagnoses [...] patient or by statute hierarchy) Care Teams Watch Assembler Relationship Specialty Start Date End Date Payal Myers MD 200 [facility] [place] [address] PCP - General Family Medicine 01/21/24 documented as of this encounter
--- OUTSIDE RECORDS SUMMARY | 2024-11-09 21:47 | External Medical Summary ---
Author Name Unknown Address Unknown Organization K09[facility] [place] [address] Laboratory Report Ordering Provider Test Date Status MARIELA PANTOJA 09/07/2024 12:24:49 Final Observation Date Value Abnormality Reference (Units ) Status WBC, Total 09/07/2024 12:24:49 3.88 Below low normal 4. 00-10.80 (K/uL) Final RBC 09/07/2024 12:24:49 3.28 3.85-5.15 (M/uL) Final Hemoglobin 09/07/2024 12:24:49 8.8 Below low normal 12 .0-15.3 (g/dL) Final HCT 09/07/2024 12:24:49 29.5 Below low normal 36. 0-45.2 (%) Final MCV 09/07/2024 12:24:49 89.9 81.5-97.5 (fL) Final MCH 09/07/2024 12:24:49 26.8 27.0-34.0 (pg) Final MCHC 09/07/2024 12:24:49 29.8 32.0-36.0 (g/dL) Final RDW 09/07/2024 12:24:49 14.5 11.5-15.5 (%) Final Platelets 09/07/2024 12:24:49 512 Above high normal 14 0-400 (K/uL) Final MPV 09/07/2024 12:24:49 8.0 6.6-11.1 ( fL) Final Performing Location [facility] [place] [address]
--- OUTSIDE RECORDS SUMMARY | 2024-11-09 21:47 | External Medical Summary | Summary of Care ---
Author Name Unknown Organization [facility] Address [address] [place] [facility] [place] [address] Phone [phone] Care Team Providers Care Design Agent Name Role Phone Payal Myers MD Primary Care Provider [phone] Reason for Visit * Reason Comments Follow Up Post-Op Cholecystectomy on Encounter Details Date Type Department Care Team (Latest Contact Info) Description 09/21/2024 9:30 AM EST Office Visit General Surgery, [facility] [address] [place] [address] Noah Campbell MD [address] [place] [address] Symptomatic cholelithiasis*; S/P laparoscopic cholecystectomy Allergies Active Allergy Reactions Criticality Noted Date Comments Adalimumab High 05/20/2024 Other Reaction(s): Chills and hot flashes Metoclopramide High 07/08/2024 Other Reaction(s): facial twitch Sulfasalazine Rash Medium 10/23/2023 documented as of this encounter (statuses as of 09/21/2024) Medications Ferrous Sulfate 325 (65 Fe) MG [...] Tablet 2 5 Active Ergocalciferol 1.25 MG (95036 UT) Oral Capsule (Vitamin D2(Drisdol)) Take 1 Capsule by mouth once a week. 12 Capsule 3 5 Active fluvoxaMINE Maleate 25 MG Oral Tablet (Luvox) Take 1 Tablet by mouth every night at bedtime. Active Tofacitinib Citrate ER 11 MG Oral Tablet Extended Release 24 Hour (Xeljanz XR) Take 1 Tablet by mouth in the morning. 30 Tablet 5 Active predniSONE 5 MG Oral Tablet (Deltasone) Take 4 Tablets by mouth daily for 3 days, THEN 3 Tablets daily for 3 days, THEN 2 Tablets daily for 3 days, THEN 1 Tablet daily for 3 days. 30 Tablet 5 09/28/19 25 Active documented as of this encounter (statuses as of 09/21/2024) Active Problems Problem Noted Date Diagnosed Date Other chronic pancreatitis 08/17/2024 Recurrent major depressive disorder 08/17/2024 Hypocalcemia 06/07/2024 Isolated proteinuria without specific morphologi c lesion 06/05/2024 Rash and nonspecific skin eruption 06/04/2024 Undifferentiated inflammatory polyarthritis 05/22 Anemia of chronic disease 06/02/2024 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 Iron deficiency 02/28/2024 LUDA (generalized anxiety disorder) 10/09/2023 documented as of this encounter (statuses as of 09/21/2024) Resolved Problems Problem Noted Date Diagnosed Date Resolved Date Ileus 06/08/2024 06/13/2024 Chest pain, non-cardiac 06/04/202405/23 Idiopathic acute pancreatitis 06/04/2024 06/13/2024 MAS (macrophage activation syndrome) 06/03/2024 08/17/2024 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 Gallstone pancreatitis 06/02/202406/13 Seronegative inflammatory arthritis 10/09/2023 07/10/2024 documented as of this encounter (statuses as of 09/21/2024) Immunizations Name Administration Dates Next Due COVID-19 [...] Sign Reading Time Taken Comments Blood Pressure 114/59 09/21/2024 9:20 AM EST Pulse 108 09/21/2024 9:20 AM EST Temperature 36.3 °C (97.3 °F) 09/21/2024 9:20 AM ES T Respiratory Rate - - Oxygen Saturation 98% 09/21/2024 9:20 AM EST Inhaled Oxygen Concentration - - Weight 48.4 kg (106 lb 11.2 oz) 09/21/2024 9:20 AM EST Height - - Body Mass Index 18.08 06/13/2024 5:54 AM EST documented in this [...] documented in this encounter Progress Notes * Noah Campbell MD - 09/21/2024 9:30 AM EST Bhavin Wilson is s/p a laparascopic cholecystectomy on 08/31/2024. This female is doing well post-op. Pt. is tolerating a regular diet, having bowel movements, and has good pain control. No postoperative concerns. PE: Blood pressure 114/59, pulse 108, temperature 36.3 °C (97.3 °F), weight 48.4 kg (106 lb 11.2 oz),SpO2 98%. Gen: looks well, alert Abdomen: soft, nontender, non-distended, incisions clean, dry and intact Path: Stones and inflammation Assessment: No issues following laparascopic cholecystectomy. Return to full activity in three weeks following surgery. If diarrhea occurs, discussed benefit of a low fat diet for six weeks. Plan: Followup in the office PRN or if questions arise. Noah Campbell MD 09/21/2024 9:30 AM documented in this encounter Nursing Notes * Reyna Stone LPN - 09/21/2024 9:21 AM EST Patient identified by name and date of . Chief Complaint Patient presents with Follow Up Post-Op Cholecystectomy on 08/31/2024 documented in this encounter Plan of Treatment Upcoming Encounters Date Type Department Care Team (Late st Contact Info) Description 10/21/2024 2:00 PM EDT Appointment OR [facility], Operating Room, [facility] 1st Floor [address] [place] [address] Lina Arteaga, DO 10 [facility] [place] [address] 11/05/2024 8:15 AM EDT Imaging Radiology [address] [place] [address] 11/09/2024 11:00 AM EDT Office Visit Gastroenterology, [facility] [address] [place] [address] Starla Sheriff CRNP [address] [place] [address] 11/09/2024 3:20 PM EDT Office Visit Rheumatology [facility] [address] [place] [phone] Neal Vang MD [facility] [place] [address] 01/04/2025 11:40 AM EDT Office Visit Family Practice [facility] [place] [address] [place] [address] Payal Myers MD [address] [place] [address] 01/14/2025 1:00 PM EDT Office Visit Nephrology, [facility] [address] [place] [address] Yasemin Villaseñor PA-C [address] [place] [address] 02/19/2025 3:00 PM EDT Office Visit Nephrology, [facility] [address] [place] [address] Ant Cardona MD 200 [facility] [place], [place] [address] Health Maintenance Due Date Last Done Comments COVID-19 Vaccine (3 - 2023- season) 2024 12/04/2020, 11/06/2020 Pap Smear 06/25/2025 [...] as of this encounter Visit Diagnoses Diagnosis Symptomatic cholelithiasis- Primary Calculus of gallbladder without mention of cholecystitis or obstruction S/P laparoscopic cholecystectomy Other postprocedural status documented in this encounter Advance Directives * [...] patient or by statute hierarchy) Care Teams Design Agent Relationship Specialty Start Date End Date Payal Myers MD [address] [place] [address] PCP - General Family Medicine 01/21/24 documented as of this encounter
--- OUTSIDE RECORDS SUMMARY | 2024-11-09 21:47 | External Medical Summary ---
Author Name Unknown Address Unknown Organization K09[facility] [address] Laboratory Report Ordering Provider Test Date Status MARIELA PANTOJA 09/07/2024 12:24:49 Final Observation Date Value Abnormality Reference (Units ) Status Magnesium 09/07/2024 12:24:49 1.8 1.5-2.6 (m g/dL) Final Performing Location [facility] [place] [address]
--- OUTSIDE RECORDS SUMMARY | 2024-11-09 21:47 | External Medical Summary | Summary of Care ---
Author Name Unknown Organization [facility] Address [address] [place] [facility] [place] [place] [address] Phone [phone] Care Team Providers Care Emergency Services Director Name Role Phone Payal Myers MD Primary Care Provider [phone] Encounter Details Date Type Department Care Team (Late st Contact Info) Description 08/31/2024 Result Scan Unspecified Department Noah Campbell MD [address] [place] [address] <No scans attached> Allergies Active Allergy Reactions Criticality Noted Date Comments Adalimumab High 05/20/2024 Other Reaction(s): Chills and hot flashes Metoclopramide High 07/08/2024 Other Reaction(s): facial twitch Sulfasalazine Rash Medium 10/23/2023 documented as of this encounter (statuses as of 09/09/2024) Medications Ferrous Sulfate 325 (65 Fe) MG [...] Tablet 2 08/07/2024 Active Ergocalciferol 1.25 MG (39172 UT) Oral Capsule (Vitamin D2(Drisdol)) Take 1 Capsule by mouth once a week. 12 Capsule 3 08/13/2024 Active documented as of this encounter (statuses as of 09/09/2024) Active Problems Problem Noted Date Diagnosed Date Other chronic pancreatitis 08/17/2024 Recurrent major depressive disorder 08/17/2024 Hypocalcemia 06/07/2024 Isolated proteinuria without specific morphologi c lesion 06/05/2024 Rash and nonspecific skin eruption 06/04/2024 Undifferentiated inflammatory polyarthritis 05/22 Anemia of chronic disease 06/02/2024 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 Iron deficiency 02/28/2024 LUDA (generalized anxiety disorder) 10/09/2023 documented as of this encounter (statuses as of 09/09/2024) Resolved Problems Problem Noted Date Diagnosed Date Resolved Date Ileus 06/08/2024 06/13/2024 Chest pain, non-cardiac 06/04/202405/23 Idiopathic acute pancreatitis 06/04/2024 06/13/2024 MAS (macrophage activation syndrome) 06/03/2024 08/17/2024 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 Gallstone pancreatitis 06/02/202406/13 Seronegative inflammatory arthritis 10/09/2023 07/10/2024 documented as of this encounter (statuses as of 09/09/2024) Immunizations Name Administration Dates Next Due COVID-19 [...] 9:30 AM EST Office Visit General Surgery, [facility] [address] [place] [address] Noah Campbell MD [address] [place] [address] 10/21/2024 2:00 PM EDT Appointment OR [facility], Operating Room, [facility] 1st Floor [address] [place] [address] Lina Arteaga DO 10 [place] [address] 11/05/2024 8:15 AM EDT Imaging Radiology [facility] 1st [facility] [address] [place] [address] 11/09/2024 11:00 AM EDT Office Visit Gastroenterology, [facility] [address] [place] [address] Starla Sheriff CRNP 132 [facility] [place] [address] 11/09/2024 3:20 PM EDT Office Visit Rheumatology [facility] [address] [place] [phone] Neal Vang MD [address] [place] [address] [place] [address] 01/04/2025 11:40 AM EDT Office Visit Family Practice [facility] [address] [place] [place] [address] Payal Myers MD [address] [place] [place] [address] 01/14/2025 1:00 PM EDT Office Visit Nephrology, [facility] [address] [place] [address] ZeYasemin jackson PA-C 200 [facility] [place] [address] 02/19/2025 3:00 PM EDT Office Visit Nephrology, [facility] [address] [place] [address] Ant Cardona MD [address] [place] [address] Health Maintenance Due Date Last Done Comments COVID-19 Vaccine (3 - 2024-25 season) 2024 12/04/2020, 11/06/2020 Pap Smear 06/25/2025 [...] Procedure Name Priority Date/Time Associated Diagnosis Comments PATHOLOGY SCANNED RESULT 08/31/2024 documented in this encounter Results * PATHOLOGY SCANNED RESULT (08/31/2024) 08/31/2024 Noah Campbell MD PATHOLOGY Fin al Result documented in this encounter Advance Directives [...] patient or by statute hierarchy) Care Teams Emergency Services Director Relationship Specialty Start Date End Date Payal Myers MD 200 [place] [address] PCP - General Family Medicine 01/21/24 documented as of this encounter
--- OUTSIDE RECORDS SUMMARY | 2024-11-09 21:47 | External Medical Summary ---
Author Name Unknown Address Unknown Organization K09[facility] [place] [address] Laboratory Report Ordering Provider Test Date Status MARIELA PANTOJA 09/07/2024 12:24:49 Final Observation Date Value Abnormality Reference (Units ) Status Phosphate 09/07/2024 12:24:49 4.7 2.5-4.8 (m g/dL) Final Performing Location [facility] [place] [address]
--- OUTSIDE RECORDS SUMMARY | 2024-11-09 21:47 | External Medical Summary | Summary of Care ---
Author Name Unknown Organization [facility] Address [address] [place] [address] Phone [phone] Care Team Providers Care Solar Installation Helper Name Role Phone Payal Myers MD Primary Care Provider [phone] Reason for Visit * Reason Comments Outpatient Testing Encounter Details Date Type Department Care Team (Latest Contact Info) Description 09/07/2024 12:20 PM EST Laboratory Laboratory [facility] [address] [place] [address] [facility] Lab [facility] [address] [place] [address] Undifferentiated inflammatory polyarthritis (HCC); Still's disease (HCC) Allergies Active Allergy Reactions Criticality Noted Date Comments Adalimumab High 05/20/2024 Other Reaction(s): Chills and hot flashes Metoclopramide High 07/08/2024 Other Reaction(s): facial twitch Sulfasalazine Rash Medium 10/23/2023 documented as of this encounter (statuses as of 09/07/2024) Medications Ferrous Sulfate 325 (65 Fe) MG [...] the morning. 30 Capsule 2 5 Active Magnesium Oxide 400 MG Oral Tablet Take 2 Tablets by mouth in the morning and 2 Tablets before bedtime. 120 Tablet 2 5 Active Fenofibrate 145 MG Oral Tablet (Tricor) Take 1 Tablet by mouth in the morning. 30 Tablet 2 5 Active Ergocalciferol 1.25 MG (23364 UT) Oral Capsule (Vitamin D2(Drisdol)) Take 1 [...] Tablet 5 08/14/2024 11:36 AM EST 4 09/07/19 25 Discontinu ed(Refill) documented as of this encounter (statuses as of 09/07/2024) Active Problems Problem Noted Date Diagnosed Date Other chronic pancreatitis 08/17/2024 Recurrent major depressive disorder 08/17/2024 Hypocalcemia 06/07/2024 Isolated proteinuria without specific morphologi c lesion 06/05/2024 Rash and nonspecific skin eruption 06/04/2024 Undifferentiated inflammatory polyarthritis 05/22 Anemia of chronic disease 06/02/2024 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 Iron deficiency 02/28/2024 LUDA (generalized anxiety disorder) 10/09/2023 documented as of this encounter (statuses as of 09/07/2024) Resolved Problems Problem Noted Date Diagnosed Date Resolved Date Ileus 06/08/2024 06/13/2024 Chest pain, non-cardiac 06/04/202405/23 Idiopathic acute pancreatitis 06/04/2024 06/13/2024 MAS (macrophage activation syndrome) 06/03/2024 08/17/2024 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 [address] [place] [address] Noah Campbell MD [address] [place] [address] 10/21/2024 2:00 PM EDT Appointment OR [facility], Operating Room, [facility] 1st Floor [address] [place] [address] Lina Arteaga, DO 10 [place] [address] 11/05/2024 8:15 AM EDT Imaging Radiology [address] [place] [address] 11/09/2024 11:00 AM EDT Office Visit Gastroenterology, [facility] [address] [place] [address] Starla Sheriff CRNP 132 [facility] [place] [address] 11/09/2024 3:20 PM EDT Office Visit Rheumatology [facility] [address] [place] [phone] Neal Vang MD [address] [place] [address] [place] [address] 01/04/2025 11:40 AM EDT Office Visit Family Practice [facility] [address] [place] [address] Payal Myers MD [address] [place] [address] 01/14/2025 1:00 PM EDT Office Visit Nephrology, [facility] [address] [place] [address] ZeYasemin jackson PA-C 200 [facility] [place] [address] 02/19/2025 3:00 PM EDT Office Visit Nephrology, [facility] 200 [facility] [place] [address] Ant Cardona MD 200 [facility] [place] [address] Health Maintenance Due Date Last Done Comments [...] Date/Time Associated Diagnosis Comments DIFFERENTIAL, AUTOMATED Routine 09/07/2024 12:24 PM EST Undifferentiated inflammatory polyarthritis (HCC) COMPREHENSIVE METABOLIC PANEL Routine 09/07/2024 12:24 PM EST Undifferentiated inflammatory polyarthritis (HCC) CBC Routine 09/07/2024 12:24 PM EST Undifferentiated inflammatory polyarthritis (HCC) PHOSPHORUS Routine 09/07/2024 12:24 PM EST Undifferentiated inflammatory polyarthritis (HCC) Still's disease (HCC) CBC Routine 09/07/2024 12:24 PM EST Undifferentiated inflammatory polyarthritis (HCC) DIFFERENTIAL, TECHNOLOGIST REVIEW Routine 09/07/2024 12:24 PM EST Undifferentiated inflammatory polyarthritis (HCC) MAGNESIUM Routine 09/07/2024 12:24 PM EST Undifferentiated inflammatory polyarthritis (HCC) Still's disease (HCC) documented in this encounter Results * DIFFERENTIAL, TECHNOLOGIST REVIEW (09/07/2024 12:24 PM EST) nRs 09/07/2024 1:54 PM EST [facility] 56-02 Blood Venous blood specimen / Unknown Venipuncture / Unknown 09/07/2024 12:24 PM EST 09/07/2024 12:24 PM EST us Payal Myers MD LAB BLOOD ORDERABLES Final Resu lt [facility] 56-[address] [place] [address] * (ABNORMAL) DIFFERENTIAL, AUTOMATED (09/07/2024 12:24 PM EST) WBC 3.88(L) 4.00 - 10.80 K/uL 09/07/2024 1:54 PM EST [facility] 56-02 Neutrophils % 83.3(H) 40.0 - 75.0 % 09/07/2024 1:54 PM EST [facility] 56-02 Lymphocytes % 10.3(L) 18.0 - 42.0 % 09/07/2024 1:54 PM EST [facility] 56-02 Monocytes % 4.1 1.0 - 11.0 % 09/07/2024 1:54 PM EST [facility] 56- Eosinophils % 1.8 0.0 - 6.0 % 09/07/2024 1:54 PM EST [facility] 56- Basophils % 0.5 0.0 - 2.0 % 09/07/2024 1:54 PM EST [facility] 56- Absolute Neutrophils 3.23 1.80 - 7.70 K/uL 09/07/2024 1:54 PM EST [facility] 56- Absolute Lymphocytes 0.40(L) 1.00 - 4.80 K/ul 09/07/2024 1:54 PM EST [facility] 56- Absolute Monocytes 0.16 0.00 - 1.10 K/uL 09/07/2024 1:54 PM EST [facility] 56- Absolute Eosinophils 0.07 0.00 - 0.70 K/uL 09/07/2024 1:54 PM EST [facility] 56- Absolute Basophils 0.02 0.00 - 0.20 K/uL 09/07/2024 1:54 PM [facility] 56 Blood Venous blood specimen / Unknown Venipuncture / Unknown 09/07/2024 12:24 PM EST 09/07/2024 12:24 PM EST us Payal Myers MD LAB BLOOD ORDERABLES Final Resu lt [facility] [address] [place] [address] * (ABNORMAL) CBC (09/07/2024 12:24 PM EST) Pathologist [facility] WBC 3.88(L) 4.00 - 10.80 K/uL 09/07/2024 1:54 PM EST [facility] 56- RBC 3.28 3.85 - 5.15 M/uL 09/07/2024 1:54 PM [facility] 56- HGB 8.8(L) 12.0 - 15.3 g/dL 09/07/2024 1:54 PM EST [facility] 56- HCT 29.5(L) 36.0 - 45.2 % 09/07/2024 1:54 PM [facility] 56 MCV 89.9 81.5 - 97.5 fL 09/07/2024 1:54 PM EST [facility] 56 MCH 26.8 27.0 - 34.0 pg 09/07/2024 1:54 PM EST [facility] 56 MCHC 29.8 32.0 - 36.0 g/dL 09/07/2024 1:54 PM EST [facility] 56 RDW 14.5 11.5 - 15.5 % 09/07/2024 1:54 PM EST [facility] 56 PLT 512(H) 140 - 400 K/uL 09/07/2024 1:54 PM EST [facility] 56 MPV 8.0 6.6 - 11.1 fL 09/07/2024 1:54 PM [facility] 56 Blood Venous blood specimen / Unknown Venipuncture / Unknown 09/07/2024 12:24 PM EST 09/07/2024 12:24 PM EST us Payal Myers MD LAB BLOOD ORDERABLES Final Resu lt [facility] [address] [place] [address] * (ABNORMAL) COMPREHENSIVE METABOLIC PANEL (09/07/2024 12:24 PM EST) BUN 19 6 - 20 mg/dL 09/07/2024 1:40 PM [facility] 56 CREATININE 0.5 0.5 - 1.0 mg/dL 09/07/2024 1:40 PM [facility] 56- EGFR >90 >=60 mL/min 09/07/2024 1:40 PM [facility] 56 Comment:eGFR is calculated b ased on the CKD-EPI 2020 equation. SODIUM 138 135 - 146 mmol/L 09/07/2024 1:40 PM EST [facility] 56- POTASSIUM 4.5 3.5 - 5.1 mmol/L 09/07/2024 1:40 PM EST [facility] 56 CHLORIDE 102 98 - 107 mmol/L 09/07/2024 1:40 PM [facility] 56 CO2 27 22 - 32 mmol/L 09/07/2024 1:40 PM EST [facility] 56- ANION GAP 9 7 - 15 mmol/L 09/07/2024 1:40 PM [facility] 56- GLUCOSE 91 70 - 120 mg/dL 09/07/2024 1:40 PM [facility] 56- Albumin 3.5(L) 3.8 - 5.0 g/dL 09/07/2024 1:40 PM [facility] 56- AST 72(H) 10 - 35 U/L 09/07/2024 1:40 PM [facility] 56- Alkaline Phosphatase 78 35 - 130 U/L 09/07/2024 1:40 PM [facility] 56- Bilirubin, Total <0.2 <=1.2 mg/dL 09/07/2024 1:40 PM [facility] 56 CALCIUM 10.9(H) 8.4 - 10.2 mg/dL 09/07/2024 1:40 PM [facility] 56- Protein 7.4 6.0 - 8.3 g/dL 09/07/2024 1:40 PM [facility] 56 ALT 34 10 - 35 U/L 09/07/2024 1:40 PM [facility] 56- Blood Venous blood specimen / Unknown Venipuncture / Unknown 09/07/2024 12:24 PM EST 09/07/2024 12:24 PM EST us Payal Myers MD LAB BLOOD ORDERABLES Final Resu lt [facility] 56- [address] [place] [address] * PHOSPHORUS (09/07/2024 12:24 PM EST) Phosphorus 4.7 2.5 - 4.8 mg/dL 09/07/2024 1:40 PM EST [facility] 56- Blood Venous blood specimen / Unknown Venipuncture / Unknown 09/07/2024 12:24 PM EST 09/07/2024 12:24 PM EST Payal Myers MD LAB BLOOD ORDERABLES Final Resu lt [facility] 56- [address] [place] [address] * MAGNESIUM (09/07/2024 12:24 PM EST) Magnesium 1.8 1.5 - 2.6 mg/dL 09/07/2024 1:40 PM EST [facility] 56-02 Blood Venous blood specimen / Unknown Venipuncture / Unknown 09/07/2024 12:24 PM EST 09/07/2024 12:24 PM EST Payal Myers MD LAB BLOOD ORDERABLES Final Resu lt [facility] 56- [address] [place] [address] documented in this encounter Visit Diagnoses Diagnosis Undifferentiated inflammatory polyarthritis (HCC) Unspecified inflammatory polyarthropathy [...] patient or by statute hierarchy) Care Teams Solar Installation Helper Relationship Specialty Start Date End Date Payal Myers MD 200 [place] [address] PCP - General Family Medicine 01/21/24 documented as of this encounter
--- OUTSIDE RECORDS SUMMARY | 2024-11-09 21:47 | External Medical Summary ---
Author Name Unknown Address Unknown Organization K09:[facility] [place] [address] Laboratory Report Ordering Provider Test Date Status MARIELA PANTOJA 09/07/2024 12:24:49 Final Observation Date Value Abnormality Reference (Units ) Status SYNC LEUKOCYTES IN BLOOD BY AUTOMATED COUNT 09/07/2024 12:24:49 3.88 Below low normal 4.00-10.80 (K/uL) Final Segs 09/07/2024 12:24:49 83.3 Above high normal 40.0-75.0 (%) Final Lymphs % 09/07/2024 12:24:49 10.3 Below low normal 18.0-42.0 (%) Final Monos 09/07/2024 12:24:49 4.1 1.0-11.0 (%) Final Eosinophils 09/07/2024 12:24:49 1.8 0.0-6.0 (%) Final Basos 09/07/2024 12:24:49 0.5 0.0-2.0 (%) Final Absolute Segs 09/07/2024 12:24:49 3.23 1.80-7.70 (K/uL) Final Lymphs, absolute 09/07/2024 12:24:49 0.40 Below low normal 1.00-4.80 (K/ul) Final Monos, Abs 09/07/2024 12:24:49 0.16 0.00-1.10 (K/uL) Final Eos, Abs 09/07/2024 12:24:49 0.07 0.00-0.70 (K/uL) Final Basos, Abs 09/07/2024 12:24:49 0.02 0.00-0.20 (K/uL) Final Performing Location [facility] [address] [address]
--- OUTSIDE RECORDS SUMMARY | 2024-11-09 21:47 | External Medical Summary | Summary of Care ---
Author Name Unknown Organization [facility] Address [address] [place] [address] Phone [phone] Care Team Providers Care Ocean Freight Agent Name Role Phone Payal Myers MD Primary Care Provider [phone] Reason for Visit * Reason Comments Medication Management Dosage Adjustment Via Phone (anticoag Cl inic) Encounter Details Date Type Department Care Team (Late st Contact Info) Description 09/07/2024 8:40 AM EST Telemedicine Rheumatology, [place] [address] [place], [place] [id number] Agc5, Pharmacist Rheumatology [address] [place] [address] Seronegative inflammatory arthritis* Allergies Active Allergy Reactions [...] Tablet 2 5 Active Ergocalciferol 1.25 MG (17647 UT) Oral Capsule (Vitamin D2(Drisdol)) Take 1 Capsule by mouth once a week. 12 Capsule 3 5 Active fluvoxaMINE Maleate 25 MG Oral Tablet (Luvox) Take 1 Tablet by mouth every night at bedtime. Active Tofacitinib Citrate ER 11 MG Oral Tablet Extended Release 24 Hour (Xeljanz XR) Take 1 Tablet by mouth in the morning. 30 Tablet 5 5 Active Tofacitinib Citrate ER 11 MG [...] Elaine M, RN documented in this encounter Progress Notes * Nirali Begum, [facility] - 09/07/2024 3:39 PM EST Clinical Pharmacy Service (Rheumatology): Medication Management PHYSICIAN ACTION NEEDED: No action needed PROTOCOL IN PLACE Referral for: Status Check Diagnosis: Rheumatoid arthritis of multiple sites without rheumatoid factor [M06.09] ASSESSMENT Patient is on the following medication(s): Xeljanz 11 mg ER daily Patient has been on this medication for 3 weeks before she had to hold therapy after her gallbladder surgery on 08/31/24 Flares within past month: None Patient account of regimen effectiveness: improvement in condition/symptoms Patient reports side effects while being on medication: no PLAN OF ACTION Medication Regimen: CONTINUE Xeljanz 11 mg ER daily Labs Needed: no ____ LABORATORY VALUES Lab Results Component Value Date/Time WBC 3.88 (L) 09/07/2024 12:24 PM WBC 4.02 08/14/2024 10:26 AM WBC 3.56 (L) 07/17/2024 12:50 PM WBC, URINE - [facility] 3-5 (A) 07/17/2024 01:58 PM WBC, URINE - [facility] 3-5 (A) 06/08/2024 09:22 PM WBC, URINE - [facility] 0-2 06/04/2024 11:18 PM Lab Results Component Value Date/Time HGB 8.8 (L) 09/07/2024 12:24 PM HGB 9.1 (L) 08/14/2024 10:26 AM HGB 7.7 (L) 07/17/2024 12:50 PM HGB 7.9 (A) 07/05/2024 12:00 AM HGB 13.3 09/07/2019 12:00 AM Lab Results Component Value Date/Time HCT 29.5 (L) 09/07/2024 12:24 PM HCT 30.0 (L) 08/14/2024 10:26 AM HCT 25.0 (L) 07/17/2024 12:50 PM Lab Results Component Value Date/Time PLT 512 (H) 09/07/2024 12:24 PM PLT 428 (H) 08/14/2024 10:26 AM PLT 381 07/17/2024 12:50 PM Lab Results Component Value Date/Time CREATININE - [facility] 0.5 09/07/2024 12:24 PM CREATININE - [facility] 0.5 08/14/2024 10:26 AM CREATININE - [facility] 0.4 (L) 07/24/2024 02:09 PM CREATININE - [facility] 0.55 (A) 07/05/2024 12:00 AM CREATININE, RANDOM URINE - [facility] 174 07/17/2024 01:58 PM CREATININE, RANDOM URINE - [facility] 86 06/04/2024 11:18 PM CREATININE, RANDOM URINE - [facility] 85 06/02/2024 11:07 PM CREATININE, URINE 41 07/20/2024 10:40 AM CREATININE, URINE 24 HOUR 0.554 (L) 07/20/2024 10:40 AM Lab Results Component Value Date/Time BUN - [facility] 19 09/07/2024 12:24 PM BUN - [facility] 17 08/14/2024 10:26 AM BUN - [facility] 17 07/24/2024 02:09 PM Lab Results Component Value Date/Time AST - [facility] 72 (H) 09/07/2024 12:24 PM AST - [facility] 48 (H) 08/14/2024 10:26 AM AST - [facility] 47 (H) 07/24/2024 02:09 PM Lab Results Component Value Date/Time ALT - [facility] 34 09/07/2024 12:24 PM ALT - [facility] 22 08/14/2024 10:26 AM ALT - [facility] 14 07/24/2024 02:09 PM Lab Results Component Value Date/Time LDL CHOLESTEROL (DIRECT MEASURE) - [facility] 44 07/24/2024 02:09 PM LDL CHOLESTEROL (DIRECT MEASURE) - [facility] 38 06/01/2024 11:36 AM Nirali Begum [facility] Clinical Pharmacist Rheumatology Department 09/07/2024,3:39 PM documented in this encounter Plan of Treatment Upcoming Encounters Date Type Department Care Team (Late st Contact Info) Description 09/21/2024 9:30 AM EST Office Visit General Surgery, [facility] [address] [place] [address] Noah Campbell MD 132 [facility] [place] [address] 10/21/2024 2:00 PM EDT Appointment OR [facility], Operating Room, [facility] 1st Floor [address] [place] [address] Lina Arteaga, [address] [place] [address] 11/05/2024 8:15 AM EDT Imaging Radiology [facility] 1st [facility] 132 [facility] [place] [phone] 11/09/2024 11:00 AM EDT Office Visit Gastroenterology, [facility] 132 [facility] [place] [address] Starla Sheriff CRNP [address] [place] [address] 11/09/2024 3:20 PM EDT Office Visit Rheumatology [facility] 132 [facility] [place] [phone] Neal Vang MD [facility] [place] [address] 01/04/2025 11:40 AM EDT Office Visit Family [facility] [place] [address] [facility] [place] [address] Payal Myers MD 200 [facility] [place] [address] 01/14/2025 1:00 PM EDT Office Visit Nephrology, [place] [address] [facility] [place], [place] [address] Yasemin Villaseñor PA-C [address] [facility] [place] [address] 02/19/2025 3:00 PM EDT Office Visit Nephrology, [place] [address] [employer], [place] [address] Ant Cardona MD [address] [facility] [address] [place], [place] [address] Health Maintenance Due Date Last Done Comments [...] patient or by statute hierarchy) Care Teams Ocean Freight Agent Relationship Specialty Start Date End Date Payal Myers MD [address] [place] [address] PCP - General Family Medicine 01/21/24 documented as of this encounter
--- OUTSIDE RECORDS SUMMARY | 2024-11-09 21:48 | External Medical Summary | Summary of Care ---
Author Name Unknown Organization [facility] Address [address] [place] [address] Phone [phone] Care Team Providers Care Mobile Web Application Developer Name Role Phone Payal Myers MD Primary Care Provider [phone] Reason for Visit * Reason Onset Date Comments Advice 09/03/2024 Encounter Details Date Type Department Care Team (Late st Contact Info) Description 09/03/2024 Telephone [facility] [address] [place] [address] Lina Arteaga DO [address] [place] [address] Advice Allergies Active Allergy Reactions [...] 30 Tablet 2 Active Ergocalciferol 1.25 MG (98746 UT) Oral Capsule (Vitamin D2(Drisdol)) Take 1 [...] much. EGD and colonoscopy are scheduled at [facility] with Dr. Lina Arteaga on 10/21/24. documented in this encounter Plan of Treatment Upcoming Encounters Date Type Department Care Team (Late st Contact Info) Description 09/07/2024 11:40 AM EST Office Visit Family [facility] 200 [facility] [place] [address] Payal Myers MD 200 [facility] [place] [address] 09/21/2024 9:30 AM EST Office Visit General Surgery, [facility] [address] [place] [address] Noah Campbell MD [address] [place] [address] 10/21/2024 2:00 PM EDT Appointment OR [facility], Operating Room, [facility] 1st Floor [facility] [place] [address] Lina Arteaga, DO [address] [place] [address] 11/05/2024 8:15 AM EDT Imaging Radiology [address] [place] [phone] 11/09/2024 11:00 AM EDT Office Visit Gastroenterology, [facility] [address] [place] [address] Starla Sheriff CRNP [address] [place] [address] 11/09/2024 3:20 PM EDT Office Visit Rheumatology [facility] [address] [place] [phone] Neal Vang MD [facility]0 [facility] [place] [address] 01/14/2025 1:00 PM EDT Office Visit Nephrology, [facility] 200 [facility] [place] [address] Yasemin Villaseñor PA-C 200 [facility] [place] [address] 02/19/2025 3:00 PM EDT Office Visit Nephrology, [facility] 200 [facility] [place] [address] Ant Cardona MD [address] [place] [address] Health Maintenance Due Date Last Done Comments [...] patient or by statute hierarchy) Care Teams Mobile Web Application Developer Relationship Specialty Start Date End Date Payal Myers MD [address] [place] [address] PCP - General Family Medicine 01/21/24 documented as of this encounter
--- OUTSIDE RECORDS SUMMARY | 2024-11-09 21:48 | External Medical Summary | Summary of Care ---
Author Name Unknown Organization [facility] Address [address] [place] [address] Phone [phone] Care Team Providers Care Cardiology Coordinator Name Role Phone Payal Myers MD Primary Care Provider [phone] Reason for Visit * Reason Onset Date Comments Appointment 09/03/2024 rescheduled Encounter Details Date Type Department Care Team (Late st Contact Info) Description 09/03/2024 Telephone Pre Surgery, [facility] [address] [place] [address] Karin Davis MD [address] [place] [phone] Appointment (rescheduled) Allergies Active Allergy Reactions Criticality Noted Date [...] Tablet 2 5 Active Ergocalciferol 1.25 MG (95694 UT) Oral Capsule (Vitamin D2(Drisdol)) Take 1 [...] Encounter - Fabricio Garcia RN - 09/03/2024 3:37 PM EST Patient has a follow up with the surgeon on 09/21. Patient wants to get dual done as soon as possible. 10/21/24 was the first available at [facility]. She does not want to wait longer unless the surgeon wants her to. Sending a message to Dr. Campbell for a clearance. Patient is willing to have it done at [place] or [place] if they have any sooner appointment. She was contacted by them few weeks ago, and they did not have any openings for a few months. * Telephone Encounter - Shiloh Perez OSA - 09/03/2024 2:54 PM EST Bhavin is returning the call. Per Romelia at [facility] appt needs to be rescheduled Please reach out to patient Thank you * Telephone Encounter - Cassidy Mayorga NCMA - 09/03/2024 2:54 PM EST Appt canceled as requested * Telephone Encounter - Romelia Rothman RN - 09/03/2024 2:26 PM EST Patient had Lap dean done on 08/31/24 @ [facility]. Dr. Davis would like to wait and get her surgeons advice on when is the best time to do a dual. Call placed to patient to make her aware, patient will discuss with her surgeon and call to reschedule when it is appropriate. Can you please cancel the procedures for 09/16, thank you. documented in this encounter Plan of Treatment Upcoming Encounters Date Type Department Care Team (Late st Contact Info) Description 09/07/2024 11:40 AM EST Office Visit [facility] [address] [place] [address] Payal Myers MD [address] [place] [address] 09/21/2024 9:30 AM EST Office Visit General Surgery, [facility] 132 [facility] [place] [address] Noah Campbell MD 132 [facility] [place] [address] 10/21/2024 2:00 PM EDT Appointment OR [facility], Operating Room, [facility] 1st Floor [address] [place] [address] Lina Arteaga, DO [address] [place], [place] [id number] 11/05/2024 8:15 AM EDT Imaging Radiology [facility] 1st [facility] 132 [facility] [place] [phone] 11/09/2024 11:00 AM EDT Office Visit Gastroenterology, [facility] 132 [facility] [place] [address] Starla Sheriff CRNP 132 [facility] [place] [address] 11/09/2024 3:20 PM EDT Office Visit Rheumatology [facility] [address] [place] [phone] Neal Vang MD [facility] [place] [address] 01/14/2025 1:00 PM EDT Office Visit Nephrology, [facility] [address] [place] [address] ZeYasemin jackson PA-C [address] [place] [address] 02/19/2025 3:00 PM EDT Office Visit Nephrology, [place] [address] [place] [address] Ant Cardona MD [address] [place] [address] Health Maintenance Due Date Last Done Comments [...] patient or by statute hierarchy) Care Teams Cardiology Coordinator Relationship Specialty Start Date End Date Payal Myers MD 200 [facility] [place] [address] PCP - General Family Medicine 01/21/24 documented as of this encounter
[2024-11-09 22:04] VITALS: BP 94/53
[2024-11-09] MEDS: MAGNESIUM SULFATE / D5W 1 GM/100 ML BAG IV ONE (22:10)
--- NOTE | 2024-11-09 22:42 | Communication Note ---
Date of Service: November 09, 2024 In the ED, patient had a head CT with the following results: FINDINGS: Appropriate parenchymal volume is noted. Arrington-white differentiation is preserved. No edema or midline shift. Subtle high attenuation is noted overlying the tentorium which is present and less conspicuous on the additional thin images supplied, image 123, series 4. No large subdural or epidural hematoma. Ventricles are normal in size and configuration. Brainstem and cerebellum have a normal appearance. Calvarium unremarkable. Moderate paranasal sinus mucosal thickening involving the ethmoid and sphenoid sinuses. Mastoid air cells are well-pneumatized. Globes are intact. No retrobulbar abnormality. IMPRESSION: 1. Subtle hyperattenuation of the tentorium which may represent a subtle subdural hematoma in the setting of trauma. Please correlate clinically and follow-up head CT could be considered if clinically appropriate. A lternatively, if prior head CTs are available, these would be helpful for comparison. 2. Moderate chronic sinusitis. Given the patients hypotension, tachycardia, and new development of a SDH, her case was discussed with [facility] trauma physician; Dr. Maxwell, who recommended a cervical collar, increased IV fluids to 125mL/hour if her BP MAP < 60; recommended Levophed. MAP 66 during recheck when fluids were increased. Given nature of patients condition and possibility for acute worsening, air flight recommended after discussion with trauma to avoid delay in care. Pt mother, Abigail Wilson, updated over the phone regarding her condition with a new development of SDH which would be better managed at a tertiary care center. Consent verbally obtained from patient given shirley. Case discussed over the phone with Dr. Golden and via TigerText with Dr. Nichols who supports transfer fo this patient. Additional 45 minutes spent reviewing diagnostic imaging results and discussing case with patient, mother, along with organizing and upgrading care at a tertiary care facility.
--- NOTE | 2024-11-09 22:55 | Communication Note ---
Date of Service: November 09, 2024 Verbal consent for blood transfusion obtained prior to transfer via life flight. Patient verbalized understanding of risks and necessity for blood transfusions.
[2024-11-09] MEDS ORDERED: ACETAMINOPHEN 1000 MG/100 ML IV IV ONE (23:01)
--- NOTE | 2024-11-09 23:26 | Discharge Summary ---
Date of Service November 09, 2024 Admission HPI Per Admitting Provider 29 year old female with a history of Seronegative polyarthritis, MAS (macrophage activation syndrome), Autoimmune Pancreatitis, etiology unclear-- gallstone versus autoimmune/connective tissue related, s/p cholecystectomy 08/31/2024, anemia, hypoparathyroidism, hypothyroidism, presented to emergency department for abdominal pain and progressive weakness. Referred by her GI for nutrition concerns, abdnormal labs, and worsening weakness. She had labs drawn today following her GI appointment and was notified via telephone of abnormal values- concern for anemia, PAMELA, with increase CR at 1.3, elevated calcium and LFT's. Progressive weakness over the last several weeks to the point, she is now having difficulty bearing weight and ambulating. She had a fall earlier today d/t weakness and subsequently hit her head on the hardwood stairs at her home. She reports having a headache and mild tenderness to the back of her head. From a nutrition standpoint, she's been managed nutritionally at home with Boost supplements and small frequent meals. She denies N/V and states she has decreased appetite and feels full sooner. Oral intake of fluids is minimal, but feels she urinates okay. She's had a change in bowel habits since her gallbladder removal in August 2024, intermittent diarrhea. She's on ferrous sulfate for chronic anemia. Patient has autoimmune disease with possible drug-induced Lupus and Still's d isease, although not clearly understood whether these drug-induced conditions have been ruled out by her [employer]. Her seronegative polyarthritis is managed with xeljanz and is currently transitioning to Rinvoq. History obtained from both the patient and her mother, as well as an external chart review. Admission Exam Per Admitting Provider VITALS: Reviewed. WEIGHT/BMI reviewed. GEN: Appears malnourished, weak, NAD. PSYCH: Good Judgment. AOx3. Normal memory and mood, with flat affect. HEENT -Head: Normocephalic; large circular bump to occipital area. -Eyes: PERRL, EOMI. No discharge or redness; -Ears: External ears are normal. Normal TMs. -Nose: Normal nares. -Mouth and throat: MMM. Normal gums, mucosa, palate,. Good dentition. NECK: Supple, with no masses. CV: Tachycardic to 110's, no m/r/g. Warm and well perfused. LUNGS: CTAB, no w/r/c. ABD: Soft, tender with palpation, ND, NBS, no masses or organomegaly. : N/A SKIN: Warm, well perfused. Surgical scars to abdomen, no skin rashes or abnormal lesions. MSK: No deformities, 1/5 muscle strength to BLE, 2/5 muscle strength to BUE, no joint swelling. EXT: No clubbing, cyanosis, or edema. NEURO: Non weight bearing. Normal muscle tone. No focal deficits. Principal Diagnosis Subdural hematoma Discharge Exam Neuro: AAOx4, PERRLA, no aphagia, memory changes, CNII-XII grossly intact HEENT: head normocephalic, large round occipital tender bump. moist mucus membranes CV: S1/S2, (-) M/G/R, (-) edema, cap refill < 3 seconds Resp: Lungs CTA in all castillo. On RA GI: Abdomen S/tender/ND, Ax4 bowel sounds, (-) CVA tenderness Musculoskeletal: 2/5 B/L UE strength, 1/5 B/L LE strength. Non weight bearing Skin: (-) rashes , (-) erythema. abdominal surgical scars Psych: flat affect; labile at times Discharge Data Allergies Allergy/AdvReac Type Severity Reaction Status Date / Time adalimumab-atto Allergy Severe Chills and Verified 08/31/24 06:01 [From Amjevita(CF)] hot flashes sulfasalazine Allergy Severe Unknown Verified 08/31/24 06:01 Skin Reaction metoclopramide [From Reglan] AdvReac Intermediate facial Verified 08/31/24 06:01 twitch Consultations 11/09/24 18:04 ED Decision to Admit Stat 11/09/24 19:29 Consult Gastroenterology Routine 11/09/24 21:09 Consult Cardiology Routine Ordered Studies 11/09/24 16:14 CT abd pelvis IV con only Stat: Impression: 1. Near complete resolution of the previously seen pancreatitis, with a small amount of fluid remaining adjacent to the pancreatic tail 2. Possible mild wall thickening of the gastric antrum, which could be due to secondary edema from the adjacent pancreatitis. Inflammatory or other gastritis cannot be excluded 3. Small right renal cysts 4. Constipation 5. Mildly prominent abdominal and pelvic lymph nodes, without overt adenopathy 6. Minimal amount of ascites CT angio chest PE protocol Stat :Impression: 1. No definite sign of pulmonary embolism 2. Mild pulmonary edema 3. Resolution of the previously seen left pleural effusion 4. Unchanged small right middle lobe nodule, likely benign. A follow-up chest CT could be obtained in 6 months to 1 year to ensure continued stability 11/09/24 19:15 CT head/brain wo con Routine Head CT: IMPRESSION: 1. Subtle hyperattenuation of the tentorium which may represent a subtle subdural hematoma in the setting of trauma. Please correlate clinically and follow-up head CT could be considered if clinically appropriate. Alternatively, if prior head CTs are available, these would be helpful for comparison. 2. Moderate chronic sinusitis. CXR: IMPRESSION: No acute findings. Hospital Course (1) Protein-calorie malnutrition: (2) Seronegative polyarthritis: (3) Sinus tachycardia: (4) Arthralgia: (5) Elevated troponin: Plan 29 year old female with a history of Seronegative polyarthritis, MAS (macrophage activation syndrome), Autoimmune Pancreatitis, etiology unclear-- gallstone versus autoimmune/connective tissue related, s/p cholecystectomy 08/31/2024, anemia, hypoparathyroidism, hypothyroidism, presented to emergency department for abdominal pain and progressive weakness. Referred by her GI for nutrition concerns, abdnormal labs, and worsening weakness. She had labs drawn today following her GI appointment and was notified via telephone of abnormal values- concern for anemia, PAMELA, with increase CR at 1.3, elevated calcium and LFT's. Progressive weakness over the last several weeks to the point, she is now having difficulty bearing weight and ambulating. She had a fall earlier today d/t weakness and subsequently hit her head on the hardwood stairs at her home. She reports having a headache and mild tenderness to the back of her head. From a nutrition standpoint, she's been managed nutritionally at home with Boost supplements and small frequent meals. She denies N/V and states she has decreased appetite and feels full sooner. Oral intake of fluids is minimal, but feels she urinates okay. She's had a change in bowel habits since her gallbladder removal in August 2024, intermittent diarrhea. She's on ferrous sulfate for chronic anemia.Patient has autoimmune disease with possible drug- induced Lupus and Still's disease, although not clearly understood whether these drug-induced conditions have been ruled out by her [employer]. Her seronegative polyarthritis is managed with xeljanz and is currently transitioning to Rinvoq. UPDATE: CT RESULTS DISCUSSED AT 9:20 PM: In the ED, patient had a head CT with the following results relayed at 9:20 PM: FINDINGS: Appropriate parenchymal volume is noted. Arrington-white differentiation is preserved. No edema or midline shift. Subtle high attenuation is noted overlying the tentorium which is present and less conspicuous on the additional thin images supplied, image 123, series 4. No large subdural or epidural hematoma. Ventricles are normal in size and configuration. Brainstem and cerebellum have a normal appearance. Calvarium unremarkable. Moderate paranasal sinus mucosal thickening involving the ethmoid and sphenoid sinuses. Mastoid air cells are well-pneumatized. Globes are intact. No retrobulbar abnormality. IMPRESSION: 1. Subtle hyperattenuation of the tentorium which may represent a subtle subdural hematoma in the setting of trauma. Please correlate clinically and follow-up head CT could be considered if clinically appropriate. Alternatively, if prior head CTs are available, these would be helpful for comparison. 2. Moderate chronic sinusitis. I personally discussed directly on the phone with the parts consultant radiologist, Dr. Ortega, who ihas a trauma backround, who indicated that while subtle, given the presentation and nature of the fall, feels this has possibility for worsening quickly. Given the patients persistent hypotension, tachycardia, and new development of a SDH, elevated troponin (likely ischemic demand as EKG ST) her case was discussed with [facility] trauma physician; Dr. Maxwell, who re commended a cervical collar, increased IV fluids to 125mL/hour to keep her BP MAP > 60; if MAP < 60 and decreased perfusion; recommended Levophed. MAP 66 during recheck when fluids were increased. I visited patient numerous times at the bedside and she was becoming more lethargic comparing to admission after discussion with admitting MARIA E. Patient continues to be tachycardic, hypotensive, and now febrile 102.7 (was afebrile in ED), with a new probable SDH. Suspect patient could be experiencing hypovolemic shock - with the possibility of acute decompensation, air flight transfer recommended to avoid delay in care. Pt mother, Abigail Wilson, updated over the phone regarding her condition with a new development of SDH and possible hypovolemic shock which would be better managed at a tertiary care center. Consent verbally obtained from patient given shirley; pt mother in support of transfer as well. At the arrival of [facility] flight, remained hypotensive (low 90's/50's) and tachycardic (115) with remaining febrile 102.4; possible hypovolemic shock. Received 2L NSS in ED, additional maintenance fluids given on PCU. After discussion with [employer], 1 UPRBC given prior to departure, along with Tylenol 1G IV. RN called [facility] to give report; patient stabilized for air transfer. Pt mother planning to meet patient at [facility]. Room # 507 trauma. Total Time Total Time Spent Total Time Spent (In Minutes): I spent a total of 55 minutes coordinating, documenting, and providing care for this patient excluding time spent inthe performance of separately billed services or time spent by another provider/QHP. Discharge Plan Discharge Items Patient Disposition: Transfer Acute Care Hospital Reason For Visit: ABNORMAL LABS Discharge Diagnosis: subdural hematoma Condition on Discharge: Critical Activity: Per Instructions section Non-emergency contact: Primary Care Provider and In[employer] Call non-emergency contact if: you have any medication questions Follow-up/Referrals: Payal Myers MD [Primary Care Provider] - Diet: Clear liquid Addtl Attending Provider Instructions: 29 year old female with a history of Seronegative polyarthritis, MAS (macrophage activation syndrome), Autoimmune Pancreatitis, etiology unclear-- gallstone versus autoimmune/connective tissue related, s/p cholecystectomy 08/31/2024, anemia, hypoparathyroidism, hypothyroidism, presented to emergency department for abdominal pain and progressive weakness. Referred by her GI for nutrition concerns, abdnormal labs, and worsening weakness. She had labs drawn today following her GI appointment and was notified via telephone of abnormal values- concern for anemia, PAMELA, with increase CR at 1.3, elevated calcium and LFT's. Progressive weakness over the last several weeks to the point, she is now having difficulty bearing weight and ambulating. She had a fall earlier today d/t weakness and subsequently hit her head on the hardwood stairs at her home. She reports having a headache and mild tenderness to the back of her head. From a nutrition standpoint, she's been managed nutritionally at home with Boost supplements and small frequent meals. She denies N/V and states she has decreased appetite and feels full sooner. Oral intake of fluids is minimal, but feels she urinates okay. She's had a change in bowel habits since her gallbladder removal in August 2024, intermittent diarrhea. She's on ferrous sulfate for chronic anemia. Patient has autoimmune disease with possible drug-induced Lupus and Still's disease, although not clearly understood whether these drug-induced conditions have been ruled out by her [employer]. Her seronegative polyarthritis is managed with xeljanz and is currently transitioning to Rinvoq. In the ED, patient had a head CT with the following results: FINDINGS: Appropriate parenchymal volume is noted. Arrington-white differentiation is preserved. No edema or midline shift. Subtle high attenuation is noted overlying the tentorium which is present and less conspicuous on the additional thin images supplied, image 123, series 4. No large subdural or epidural hematoma. Ventricles are normal in size and configuration. Brainstem and cerebellum have a normal appearance. Calvarium unremarkable. Moderate paranasal sinus mucosal thickening involving the ethmoid and sphenoid sinuses. Mastoid air cells are well-pneumatized. Globes are intact. No retrobulbar abnormality. IMPRESSION: 1. Subtle hyperattenuation of the tentorium which may represent a subtle subdural hematoma in the setting of trauma. Please correlate clinically and follow-up head CT could be considered if clinically appropriate. Alternatively, if prior head CTs are available, these would be helpful for comparison. 2. Moderate chronic sinusitis. Given the patients hypotension, tachycardia, and new development of a SDH, her case was discussed with [facility] trauma physician; Dr. Maxwell, who recommended a cervical collar, increased IV fluids to 125mL/hour if her BP MAP < 60; recommended Levophed. MAP 66 during recheck when fluids were increased. Given nature of patients condition and possibility for acute wo rsening, air flight recommended after discussion with trauma to avoid delay in care. Pt mother, Abigail Wilson, updated over the phone regarding her condition with a new development of SDH which would be better managed at a tertiary care center. Consent verbally obtained from patient given tetany. Pending Studies at Discharge: No Stand-Alone Forms: My [facility] Skilled Items Patient informed of condition?: Yes DNR: No Discharge Level of Care: Other Communicable Disease: No Discharge Prognosis: Deteriorating Lines: Peripheral IV Urinary Catheter: No Medications and DC Order Prescriptions: Continued ferrous sulfate 325 mg (65 mg iron) Tablet 325 mg PO DAILY omeprazole 20 mg capsule,delayed release(DR/EC) 20 mg PO QAM fenofibrate 160 mg tablet 145 mg PO QAM ondansetron 4 mg Tablet,Disintegrating 4 mg PO Q6H PRN (Reason: nausea and vomiting) Qty: 20 0RF cyanocobalamin (vitamin B-12) 500 mcg tablet 500 mcg PO QAM Discontinued calcitriol 0.5 mcg capsule 0.5 mcg PO DAILY Qty: 30 0RF ergocalciferol (vitamin D2) 1,250 mcg (50,000 unit) capsule 50,000 unit PO .weekly Qty: 20 0RF Chriss-Citrate 250 mg-2.5 mcg (100 unit) tablet 1 tab PO BID Qty: 60 0RF sodium chloride 1,000 mg tablet,soluble 1,000 mg PO QAM Xeljanz XR 11 mg Tablet Extended Release 24 Hr 11 mg PO QPM fluvoxamine 25 mg Tablet 25 mg PO HS oxycodone-acetaminophen [Percocet] 5-325 mg tablet 1 tab PO Q6H PRN (Reason: pain) Qty: 14 0RF Discharge Orders: Discharge Order (Routine); Ordered 11/09/24 Ordered By: Rach Watts Admission Data Admit Date/Time: 11/09/24 18:12 Attending Provider: Stefany Nichols Admit Provider: Stefany Nichols Primary Care Provider: Payal Myers Other Providers: Micaela Aguirre Jr; Edwin Fragoso; Jono Golden Other Interventions: Discharge Summary Assessment (RN) Last Done: 11/09/24 22:35
--- OUTSIDE RECORDS SUMMARY | 2024-11-10 01:30 | External Medical Summary | Summary of Care ---
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 EGD/Amberg 10/02/24. Hx pancreatitis. Abd pain today. Rated 4. Pt reports feeling constipated, but when she goes has diarrhea. Encounter Details Date Type Department Care Team (Late st Contact Info) Description 11/09/2024 11:00 AM EDT Office Visit Gastroenterology, [facility] [address] [place] [phone] Jasmin Thomas CRNP [address] [place] [id number] Abdominal pain, left lower quadrant*; Acute pancreatitis without infection or necrosis, unspecified pancreatitis type; Brain fog; Diarrhea, unspecified type Allergies Active Allergy Reactions Criticality Noted Date Comments Adalimumab High 05/20/2024 Other Reaction(s): Chills and hot flashes Metoclopramide High 07/08/2024 Other Reaction(s): facial twitch Sulfasalazine Rash Medium 10/23/2023 documented as of this encounter (statuses as of 11/09/2024) Medications Ferrous Sulfate 325 (65 Fe) MG [...] the morning. 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 30 Tablet 2 5 Active Mirtazapine 7.5 MG Oral Tablet (Remeron) Take 1/2 tablet by mouth every night at bedtime for 5 days, then take 1 tablet by mouth every night at bedtime 5 Active linaCLOtide 145 MCG Oral Capsule (Linzess) Take 1 Capsule by mouth daily before breakfast. 30 Capsule 11 5 11/10/19 25 Discontinued documented as of this encounter (statuses as of 11/09/2024) Active Problems Problem Noted Date Diagnosed Date Other chronic pancreatitis 08/17/2024 Recurrent major depressive disorder 08/17/2024 Hypocalcemia 06/07/2024 Isolated proteinuria without specific morphologi c lesion 06/05/2024 Undifferentiated inflammatory polyarthritis 05/22 Anemia of chronic disease 06/02/2024 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 Iron deficiency 02/28/2024 LUDA (generalized anxiety disorder) 10/09/2023 documented as of this encounter (statuses as of 11/09/2024) Resolved Problems Problem Noted Date Diagnosed Date Resolved Date Ileus 06/08/2024 06/13/2024 Rash and nonspecific skin eruption 06/04/2024 09/24/2024 Chest pain, non-cardiac 06/04/202405/23 Idiopathic acute pancreatitis 06/04/2024 06/13/2024 MAS (macrophage activation syndrome) 06/03/2024 08/17/2024 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 Gallstone pancreatitis 06/02/202406/13 Seronegative inflammatory arthritis 10/09/2023 07/10/2024 documented as of this encounter (statuses as of 11/09/2024) Immunizations Name Administration Dates Next Due COVID-19 [...] Reading Time Taken Comments Blood Pressure 104/62 11/09/2024 11:00 AM EDT Pulse - - Temperature 36.8 °C (98.2 °F) 11/09/2024 11:00 AM E DT Respiratory Rate - - Oxygen Saturation - - Inhaled Oxygen Concentration - - Weight - [...] documented in this encounter Progress Notes * Jasmin Thomas CRNP - 11/09/2024 11:00 AM EDT Gastroenterology Outpatient Visit 11/09/2024 Referring physician:Noreen Weller MD PCP: Payal Myers MD Past medical history: Pancreatitis, etiology unclear-- gallstone versus autoimmune/connective tissue related Status post cholecystectomy 08/31/2024 Seronegative polyarthritis (?RA/lupus)--complicated course of treatment after using anti TNF with possible drug-induced Lupus and Still's disease. MAS (macrophage activation syndrome) CC: Pancreatitis HPI: Very pleasant but Medically complex 29 year old female presents today to the Gastroenterology office today in routine follow-up. Presents today accompanied by her mother, Abigail. Patient carries a fairly new diagnosis of seronegative polyarthritis--now following with [facility]. 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 Was admitted to [facility] 05/2024 with long hospital course. Had acute gallstone pancreatitis and underwent laparoscopic cholecystectomy on 08/31/2024. She is now on treatment with Xeljanz>> switching to Rinvoq. Since that time of diagnosis patient has been having chronic left lower quadrant cramping and discomfort with bloating and intermittent constipation. She was trialed on Senokot, Dulcolax as well as MiraLax--Linzess was ordered, but due to cost was not obtained. She did undergo an EGD and colonoscopy on 10/07/2024. EGD showed a normal duodenum. Small amount of bile within the stomach. Minimal erythematous mucosa in the gastric body. Z-line was regular. Esophagus was normal. Colonoscopy also was normal. In regards to her prior pancreatitis imaging has been followed--pancreatic pseudocyst has decreasedin size when now resolved on most recent MRI. However ongoing pancreatic duct dilation noted with possible stricture 11/09/2024: Presents today with her mother. Very weak and noting to be in a lot generalized pain. Arrived in a wheelchair today. Was unable to walk into the appointment. Mother has concerns that she is “rapidly declining”. Has not been eating or drinking much-- mother is trying to force protein shakes and liquids. Patient having multiple bouts of diarrhea throughout the day. Continues to have lower abdominal discomfort. Medications tried for above complaint: MiraLax--ineffective Senokot--mildly affected Dulcolax--ineffective Fiber--no change in symptoms Previous GI workup: Colonoscopy: 10/07/2024--ileum normal. Entire examined colon normal. Distal rectum and anal verge normal. No specimens collected. EGD: 10/07/2024--normal 2nd portion of the duodenum. Normal duodenal bulb. Small amount of bile within the stomach. Minimal or erythematous mucosa in the gastric body. Z-line regular. Normal esophagus. Pathology unremarkable. CTAP 07/28/2024--1. Decrease in size of the peripancreatic fluid collection surrounding the pancreatic tail. New mild dilation of the pancreatic duct within the pancreatic tail. Consider follow-up MRI or endoscopic ultrasound to evaluate for underlying lesion. 2. Similar nodular peritoneal thickening most pronounced in the right pericolic gutter. Differential diagnosis includes neoplastic and autoimmune processes 07/07/2024 [facility]-- Unchanged previously noted loculated fluid collection of Approximately [id number] mm size compared to 60 x 57 x 88 mm with mild peripheral enhancement is noted involving peripancreatic and intrapancreatic region in the gastrocolic space. Unchanged Mild thickening of distal body and tail of pancreas without obvious necrotic component. Hepatomegaly, retroperitoneal mild lymphadenopathy noted. Mild free at pelvic ascites. Left-sided pleural effusion. 07/03/2024 [facility]-- 1. Mild left sided pleural effusion with passive subsegmental collapse of left lower lobe is seen. 2. Approximately 60 x 57 x 88 mm sized ill- defined peripherally enhancing loculated collection is noted involving peripancreatic and intrapancreatic region in the gastrocolic space. 3. Mild thickening of distal body and tail of pancreas without obvious necrotic component- serum amylase and lipase correlation suggested. 4. Mild inflammatory thickening is also noted involving adjacent large bowel loop. Diffuse adjacent omental thickening with nodularity also see 06/11/2024-- 1. Findings compatible with interstitial pancreatitis 2. Moderate volume ascites. Mildperitoneal thickening may represent peritonitis 3. Moderate bilateral pleural effusions MRI pancreas: 11/05/2024--Pancreas: Pancreatic duct slightly prominent, measuring up to 4 mm in the pancreatic body. Short segment of the pancreatic duct not well visualized in the pancreatic head, possibly from underlying stricture. Gastric emptying study: 08/04/2024--normal Social history: Tobacco use: None ETOH use: None Drug use: None Family Hx: No known family history of inflammatory bowel disease. Maternal GM: panc cancer Mother: Bile duct cancer Father: Lung cancer Current Outpatient Medications Medication Sig Dispense Refill [...] mouth in the morning. 90 Tablet 3 Ergocalciferol 1.25 MG (92555 UT) Oral Capsule (Vitamin D2(Drisdol)) Take 1 Capsule by mouth once aweek. 12 Capsule 3 fluvoxaMINE Maleate 25 MG Oral Tablet (Luvox) Take 1 Tablet by mouth every night at bedtime. Fenofibrate 145 MG Oral Tablet (Tricor) Take 1 Tablet by mouth in the morning. 30 Tablet 2 Calcitriol 0.5 MCG Oral Capsule (Rocaltrol) Take 1 Capsule by mouth in the morning. 30 Capsule 2 Mirtazapine 7.5 MG Oral Tablet (Remeron) Take 1/2 tablet by mouth every night at bedtime for 5 days, then take 1 tablet by mouth every night at bedtime Magic Swizzle (Ldwzhsudf-Bexcbajx-Jmodwm) oral solution Swish and spit 15 mL in the morning and 15 mL before bedtime. 300 mL 0 Rinvoq 15 MG Oral Tablet Extended Release 24 Hour (Upadacitinib ER) Take 1 tablet by mouth in the morning. 30 Tablet 2 No current facility-administered medications for this visit. Past Medical History: Diagnosis Date Pancreatitis Past Surgical History: Procedure Laterality Date IR BIOPSY 02/19/2024 IR BIOPSY 08/12/2024 Social History Tobacco Use Smoking status: Never Smokeless tobacco: Never Vaping Use Vaping status: Never Used Substance Use Topics Alcohol use: Not Currently Comment: occasionaly Drug use: Never Review of patient's allergies indicates: Allergen Reactions Adalimumab Other Reaction(s): Chills and hot flashes Metoclopramide Other Reaction(s): facial twitch Sulfasalazine Rash Review of Systems: See HPI for pertinent positives. All others negative, other than those noted in HPI. Physical Exam: BP 104/62 | Temp 36.8 °C (98.2 °F) GENERAL: Well developed and well nourished in no acute distress. SKIN: No rashes, ulcers, jaundice or spider angiomata. +pale HEENT: Normocephalic, sclera clear, pharynx normal. NECK: Supple, no lymphadenopathy, no masses or thyroid enlargement. LUNGS: Clear to auscultation bilaterally, no respiratory distress or accessory muscles used. HEART: Regular rate & rhythm, no murmurs and no gallops. ABDOMEN: Normal bowel sounds, soft . LUQ pain, generalized abdominal discomfort. no masses or hepatosplenomegaly. EXTREMITIES: No palmar erythema, no ankle edema, no skin discoloration, no clubbing, no cyanosis. NEURO: No lateralizing findings. Sensory/Motor grossly normal. Lab data/imaging study review: Reviewed via chart/Intercasting Impression/Plan: This is a(n) 29 year old female who is being evaluated in the office for ongoing care/risk management for the below diagnoses. 1. H/o pancreatitis (Primary) History of gallstone pancreatitis status post cholecystectomy. Pancreas cyst resolved. Pancreatic duct dilation again noted with possible stricture. Recommend EUS +/- ERCP for further eval. Recommend low-fat diet. Pancreatic elastase stools sample -- patient may need pancreatic enzymes. Stool studies Labs ordered--patient is very pale and appears dry, rule out anemia and dehydration. 2. Diarrhea 3. Abdominal pain, left lower quadrant Patient feeling constipated, but having diarrhea. Ongoing LLQ pain. ? If bile acid diarrhea constributing versus pancreatic insufficiency, now start fiber supplementation very consider pancreatic enzymes. Pending above workup and patient response may need to consider Emergency Department workup. The patient agrees to the above plan and will call with additional questions or concerns. ER with all emergencies advised. Follow-up: Return in about 6 months (around 05/11/2025). | Check-out note: -EUS +/- ERCP w/ Dr. Weller within 2-3 weeks. -Labs today I spent a total of 40-54 minutes (exact time 40 mins) on the date of service in preparation, delivery, and documentation of the care provided to Bhavin Wilson excluding any time spent in the performance of separately billed services or time spent by another provider/QHP. BRYCE Rincon [facility] This chart was completed in part utilizing [employer] Speech Voice Recognition Software. Grammatical errors, random word insertions, prounoun errors, and incomplete sentences are an occasional consequence of this system due to software limitations, ambient noise, and hardware issues. Any formal questions or concerns about the content, text, or information contained within the body of this dictation should be directly addressed to the provider for clarification. documented in this encounter Nursing Notes * Sharon Guerin CMA - 11/09/2024 10:59 AM EDT Chief Complaint Patient presents with Follow Up Follow up constipation/LLQ pain. EGD/Amberg 10/02/24. Hx pancreatitis. Abd pain today. Rated 4. Pt reports feeling constipated, but when she goes has diarrhea. documented in this encounter Miscellaneous Notes * Addendum Note - Jasmin Thomas CRNP - 11/09/2024 11:37 AM EDTAddended by: JASMIN THOMAS on: 11/09/2024 11:37 AM Modules accepted: Orders documented in this encounter Plan of Treatment Upcoming Encounters Date Type Department Care Team (Latest Contact Info) Description 11/24/2024 11:20 AM EDT Office Visit Rheumatology [facility] [address] [place] [phone] Neal Vang MD [address] [place] [phone] 12/08/2024 9:30 AM EDT Hospital Encounter ENDO [facility], Endoscopy Room [facility] [address] [place] [phone] Noreen Weller MD [address] [place] [address] 12/08/2024 9:30 AM EDT - 12/08/2024 11:00 AM EDT Surgery ENDO [facility], Endoscopy Room [facility] [address] [place] [phone] Noreen Weller MD [address] [place] [address] ENDOSCOPIC RETROGRADE CHOLANGIOPANCREATOGRAPHY (ERCP) DIAGNOSTIC 01/04/2025 11:40 AM EDT Office Visit [facility] [place] [address] [place] [address] Payal Myers MD [address] [place] [address] 01/14/2025 1:00 PM EDT Office Visit [facility] [address] [place] [address] Yasemin Villaseñor PA-C [address] [place] [address] 02/19/2025 3:00 PM EDT [facility] [address] [place] [address] Ant Cardona MD [address] [facility] [place] [address] 05/11/2025 2:00 PM EDT Office Visit Gastroenterology , [facility] [address] [place] [phone] Jasmin Thomas CRNP [address] [place] [address] Pending Results Name Type Priority Associated Diagnoses Date /Time MAGNESIUM Lab STAT Abdominal pain, left lower quadrant Acute pancreatitis without infection or necrosis, unspecified pancreatitis type Brain fog Diarrhea, unspecified type 11/09/2024 12:00 PM EDT VITAMIN B12 Lab STAT Abdominal pain, left lower quadrant Acute pancreatitis without infection or necrosis, unspecified pancreatitis type Brain fog Diarrhea, unspecified type 11/09/2024 12:00 PM EDT Scheduled Orders Name Type Priority Associated Diagnoses Orde r Schedule US ENDOSCOPIC Medical Imaging Routine Abdominal pain, left lower quadrant Acute pancreatitis without infection or necrosis, unspecified pancreatitis type Brain fog Diarrhea, unspecified type Expected: 11/09/2024, Expires: 12/09/2025 ERCP Gastro Upper Routine Abdominal pain, left lower quadrant Acute pancreatitis without infection or necrosis, unspecified pancreatitis type Brain fog Diarrhea, unspecified type Ordered: 11/09/2024 PANCREATIC ELASTASE-1 Lab Routine Abdominal pain, left lower quadrant Acute pancreatitis without infection or necrosis, unspecified pancreatitis type Brain fog Diarrhea, unspecified type Expected: 11/09/2024, Expires: 11/09/2025 MAGNESIUM Lab STAT Abdominal pain, left lower quadrant Acute pancreatitis without infection or necrosis, unspecified pancreatitis type Brain fog Diarrhea, unspecified type Expected: 11/09/2024, Expires: 11/09/2025 VITAMIN B12 Lab STAT Abdominal pain, left lower quadrant Acute pancreatitis without infection or necrosis, unspecified pancreatitis type Brain fog Diarrhea, unspecified type Expected: 11/09/2024, Expires: 11/09/2025 GASTROINTESTINAL PATHOGEN PANEL, STOOL Lab Routine Abdominal pain, left lower quadrant Acute pancreatitis without infection or necrosis, unspecified pancreatitis type Brain fog Diarrhea, unspecified type Expected: 11/09/2024, Expires: 11/09/2025 CLOSTRIDIUM DIFFICILE, PCR Lab Routine Abdominal pain, left lower quadrant Acute pancreatitis without infection or necrosis, unspecified pancreatitis type Brain fog Diarrhea, unspecified type Expected: 11/09/2024, Expires: 11/09/2025 Scheduled Procedures Name Priority Associated Diagnoses Date/Ti me ENDOSCOPIC RETROGRADE CHOLANGIOPANCREATOGRAPHY (ERCP) DIAGNOSTIC Abdominal pain, left lower quadrant Acute pancreatitis without infection or necrosis, unspecified pancreatitis type Brain fog Diarrhea, unspecified type 12/08/2024 9:30 AM EDT ESOPHAGOGASTRODUODENOSCOPY ( EGD), FLEXIBLE, TRANSORAL, ENDOSCOPIC ULTRASOUND Abdominal pain, left lower quadrant Acute pancreatitis without infection or necrosis, unspecified pancreatitis type Brain fog Diarrhea, unspecified type 12/08/2024 9:30 AM EDT Health Maintenance Due Date Last [...] encounter Results * (ABNORMAL) COMPREHENSIVE METABOLIC PANEL (11/09/2024 12:00 PM EDT) BUN 36(H) 6 - 20 mg/dL 11/09/2024 12:33 PM EDT [facility] 57-10 CREATININE 1.3(H) 0.5 - 1.0 mg/dL 11/09/2024 12:33 PM EDT [facility] 5710 EGFR 58(L) >=60 mL/min 11/09/2024 12:33 PM EDT [facility] 5710 Comment:eGFR is calculated b ased on the CKD-EPI 2020 equation. SODIUM 135 135 - 146 mmol/L 11/09/2024 12:33 PM EDT [facility] 57-10 POTASSIUM 4.5 3.5 - 5.1 mmol/L 11/09/2024 12:33 PM EDT [facility] CHLORIDE 101 98 - 107 mmol/L 11/09/2024 12:33 PM EDT [facility] CO2 24 22 - 32 mmol/L 11/09/2024 12:33 PM EDT [facility] ANION GAP 10 7 - 15 mmol/L 11/09/2024 12:33 PM EDT [facility] 57- GLUCOSE 124(H) 70 - 120 mg/dL 11/09/2024 12:33 PM EDT [facility] 57- Albumin 2.5(L) 3.8 - 5.0 g/dL 11/09/2024 12:33 PM EDT [facility] AST 318(H) 10 - 35 U/L 11/09/2024 12:33 PM EDT [facility] 57- Alkaline Phosphatase 45 35 - 130 U/L 11/09/2024 12:33 PM EDT [facility] 5710 Bilirubin, Total <0.2 <=1.2 mg/dL 11/09/2024 12:33 PM EDT [facility] CALCIUM 11.4(H) 8.4 - 10.2 mg/dL 11/09/2024 12:33 PM EDT [facility] Protein 7.1 6.0 - 8.3 g/dL 11/09/2024 12:33 PM EDT [facility] 57-10 ALT 49(H) 10 - 35 U/L 11/09/2024 12:33 PM EDT [facility] 57-10 Blood Venous blood specimen / Unknown Venipuncture / Unknown 11/09/2024 12:00 PM EDT 11/09/2024 12:00 PM EDT Jasmin ORTANP LAB BLOOD ORDERABLES Fi nal Result [facility] 57-10 [address] [place] [id number] documented in this encounter Visit Diagnoses Diagnosis Abdominal pain, left lower quadrant- Primary Acute pancreatitis without infection or necrosis, unspecified pancreatitis type Brain fog Diarrhea, unspecified type Abdominal pain, left lower quadrant Acute pancreatitis without infection or necrosis, unspecified pancreatitis type Brain fog Diarrhea, unspecified type documented in this encounter Advance Directives * [...] Advance Directives occurred with: Patient Care Teams Battery Parts Assembler Relationship Specialty Start Date End Date Payal Myers MD [address] [place], [place] [address] PCP - General Family Medicine 01/21/24 documented as of this encounter"
--- OUTSIDE RECORDS SUMMARY | 2024-11-10 01:30 | External Medical Summary ---
Author Name Unknown Address Unknown Organization [id number]:[facility] [place] [address] [address] Laboratory Report Ordering Provider Test Date Status MARTHA CASTELLANOS 11/09/2024 12:00:12 Final Observation Date Value Abnormality Reference (Units ) Status Lipase 11/09/2024 12:00:12 688 Above high normal 13 -60 (U/L) Final Performing Location [facility] - [address] [place] [address]
--- OUTSIDE RECORDS SUMMARY | 2024-11-10 01:30 | External Medical Summary | Summary of Care ---
Author Name Unknown Organization [facility] Address [address] [facility] [place] [address] Phone [phone] Care Team Providers Care Academic Advisor Name Role Phone Payal Myers MD Primary Care Provider [phone] Reason for Visit * Reason Comments Follow Up Follow up constipati on/LLQ pain. EGD/[place] 10/02/24. Hx pancreatitis. Abd pain today. Rated 4. Pt reports feeling constipated, but when she goes has diarrhea. Encounter Details Date Type Department Care Team (Late st Contact Info) Description 11/09/2024 11:00 AM EDT Office Visit Gastroenterology, [facility] [address] [place] [phone] Jasmin Thomas CRNP [address] [place] [address] Abdominal pain, left lower quadrant*; Acute pancreatitis [...] Tablet 3 5 Active Ergocalciferol 1.25 MG (11261 UT) Oral Capsule (Vitamin D2(Drisdol)) Take 1 [...] new diagnosis of seronegative polyarthritis--now following with [facility]. 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 Was admitted to [facility] 05/2024 with long hospital course. Had acute [...] diagnosis includes neoplastic and autoimmune processes 07/07/2024 [facility]-- Unchanged previously noted loculated fluid collection of Approximately [id number] mm size compared to 60 x 57 x 88 mm with mild peripheral enhancement is noted involving peripancreatic and intrapancreatic region in the gastrocolic space. Unchanged Mild thickening of distal body and tail of pancreas without obvious necrotic component. Hepatomegaly, retroperitoneal mild lymphadenopathy noted. Mild free at pelvic ascites. Left-sided pleural effusion. 07/03/2024 [facility]-- 1. Mild left sided pleural effusion with [...] morning. 90 Tablet 3 Ergocalciferol 1.25 MG (65171 UT) Oral Capsule (Vitamin D2(Drisdol)) Take 1 [...] mouth every night at bedtime Magic Swizzle (Lurcvirvr-Ctztjgyv-Fzpyiy) oral solution Swish and spit 15 mL [...] normal. Lab data/imaging study review: Reviewed via chart/Clothia Impression/Plan: This is a(n) 29 year old [...] time spent by another provider/QHP. [facility]CE [facility] This chart was completed in part utilizing [employer] Speech Voice Recognition Software. Grammatical errors, random [...] with Follow Up Follow up constipation/LLQ pain. EGD/[place] 10/02/24. Hx pancreatitis. Abd pain today. Rated [...] 11/24/2024 11:20 AM EDT Office Visit Rheumatology [facility] [address] [place] [phone] Neal Vang MD [address] [place] [phone] 12/08/2024 9:30 AM EDT Hospital Encounter ENDO [facility], Endoscopy Room [facility] [address] [place] [address] Noreen Weller MD [address] [place] [address] 12/08/2024 9:30 AM EDT - 12/08/2024 11:00 AM EDT Surgery ENDO [facility], Endoscopy Room [facility] [address] [place] [address] Noreen Weller MD [address] [place] [address] ENDOSCOPIC RETROGRADE CHOLANGIOPANCREATOGRAPHY (ERCP) DIAGNOSTIC 01/04/2025 11:40 AM EDT Office Visit Family [facility] [place] [address] [place] [address] Payal Myers MD [address] [place] [address] 01/14/2025 1:00 PM EDT Office Visit [facility] [address] [place] [address] Yasemin Villaseñor PA-C [address] [place] [address] 02/19/2025 3:00 PM EDT [facility] [address] [place] [address] Ant Cardona MD 200 [facility] [place] [address] 05/11/2025 2:00 PM EDT Office Visit Gastroenterology , [facility] [address] [place] [phone] Jasmin Thomas CRNP [address] [place] [address] Pending Results Name Type Priority Associated Diagnoses [...] mg/dL 11/09/2024 12:33 PM EDT LABORATORY [facility] 57-10 CREATININE 1.3(H) 0.5 - 1.0 mg/dL 11/09/2024 12:33 PM EDT LABORATORY [facility] 5710 EGFR 58(L) >=60 mL/min 11/09/2024 12:33 PM EDT LAB[facility]ATORY [facility] 5710 Comment:eGFR is calculated b ased on the CKD-EPI 2020 equation. SODIUM 135 135 - 146 mmol/L 11/09/2024 12:33 PM EDT LABORATORY [facility] 57-10 POTASSIUM 4.5 3.5 - 5.1 mmol/L 11/09/2024 12:33 PM EDT LABORATORY [facility] 57[facility] CHLORIDE 101 98 - 107 mmol/L 11/09/2024 12:33 PM EDT LAB[facility]ATORY [facility] CO2 24 22 - 32 mmol/L 11/09/2024 12:33 PM EDT LAB[facility]ATORY [facility] ANION GAP 10 7 - 15 mmol/L 11/09/2024 12:33 PM EDT LAB[facility]ATORY [facility] 57- GLUCOSE 124(H) 70 - 120 mg/dL 11/09/2024 12:33 PM EDT LABORATORY [facility] 57- Albumin 2.5(L) 3.8 - 5.0 g/dL 11/09/2024 12:33 PM EDT LABORATORY [facility] 57[facility] AST 318(H) 10 - 35 U/L 11/09/2024 12:33 PM EDT LAB[facility]ATORY [facility] 57- Alkaline Phosphatase 45 35 - 130 U/L 11/09/2024 12:33 PM EDT LABORATORY [facility] 5710 Bilirubin, Total <0.2 <=1.2 mg/dL 11/09/2024 12:33 PM EDT LAB[facility]ATORY [facility] 57[facility] CALCIUM 11.4(H) 8.4 - 10.2 mg/dL 11/09/2024 12:33 PM EDT LAB[facility]ATORY [facility] Protein 7.1 6.0 - 8.3 g/dL 11/09/2024 12:33 PM EDT [facility] [place] [facility] 57-10 ALT 49(H) 10 - 35 U/L 11/09/2024 12:33 PM EDT [facility] [place] [facility] 57-10 Blood Venous blood specimen / Unknown Venipuncture / Unknown 11/09/2024 12:00 PM EDT 11/09/2024 12:00 PM EDT Jasmin ORTANP LAB BLOOD ORDERABLES Fi nal Result LAB[facility]ATORY [place] [facility] 57-10 [address] [place] [address] documented in this encounter Visit Diagnoses Diagnosis [...] Advance Directives occurred with: Patient Care Teams Academic Advisor Relationship Specialty Start Date End Date Payal Myers MD [address] [place], [place] [address] PCP - General Family Medicine 01/21/24 documented as of this encounter"
--- OUTSIDE RECORDS SUMMARY | 2024-11-10 01:30 | External Medical Summary | Summary of Care ---
Author Name Unknown Organization [facility] Address [address] [place] [address] Phone [phone] Care Team Providers Care Report Clerk Name Role Phone Payal Myers MD Primary Care Provider [phone] Reason for Visit * Reason Comments Outpatient Testing Encounter Details Date Type Department Care Team (Late st Contact Info) Description 11/09/2024 10:50 AM EDT Laboratory Laboratory, [facility] [address] [place] [address] [facility] [address] [place] [address] Arrived Allergies Active Allergy Reactions Criticality Noted Date [...] the morning. 90 Tablet 3 08/03/2024 Active Ergocalciferol 1.25 MG (09507 UT) Oral Capsule (Vitamin D2(Drisdol)) Take 1 Capsule by mouth once a week. 12 Capsule 3 08/13/2024 Active fluvoxaMINE Maleate 25 MG Oral Tablet (Luvox)Indicati ons:Moderate episode of recurrent major depressive disorder (HCC),LUDA (generalized anxiety disorder) Take 1 Tablet by mouth every night at bedtime. Active Magic Swizzle (Lidocaine-Staci dryl-Maalox) oral solution Swish and spit 15 mL in the morning and 15 mL before bedtime. 300 mL 10/07/2024 Active Fenofibrate 145 MG Oral Tablet (Tricor) Take 1 Tablet by mouth in the morning. 30 Tablet 2 10/27/2024 Active Calcitriol 0.5 MCG Oral Capsule (Rocaltrol) Take 1 Capsule by mouth in the morning. 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 30 Tablet 2 11/06/2024 Active Mirtazapine 7.5 MG Oral Tablet (Remeron) Take 1/2 tablet by mouth every night at bedtime for 5 days, then take 1 tablet by mouth every night at bedtime 11/06/2024 Active documented as of this encounter (statuses [...] Department Care Team (Latest Contact Info) Description 11/18/2024 1:00 PM EDT Office Visit Rheumatology [facility] [address] [place] [address] Neal Vang MD [address] [place] [address] 12/08/2024 9:30 AM EDT Hospital Encounter ENDO [facility], Endoscopy Room [facility] [address] [place] [address] Noreen Weller MD [address] [place] [address] 12/08/2024 9:30 AM EDT - 12/08/2024 11:00 AM EDT Surgery ENDO [facility], Endoscopy Room [facility] [address] [place], [place] [phone] Noreen Weller MD [address] [place] [address] ENDOSCOPIC RETROGRADE CHOLANGIOPANCREATOGRAPHY (ERCP) DIAGNOSTIC 01/04/2025 11:40 AM EDT Office Visit Family Practice [facility] [place] [address] [facility] [place] [address] Payal Myers MD [address] [facility] [place] [address] 01/14/2025 1:00 PM EDT Office Visit Nephrology, [facility] [address] [facility] [place] [address] ZeYasemin jackson PA-C [address] [facility] [place] [address] 02/19/2025 3:00 PM EDT Office Visit Nephrology, [facility] [address] [facility] [place] [address] Ant Cardona MD [address] [facility] [place] [address] 05/11/2025 2:00 PM EDT Office Visit Gastroenterology , [facility] [address] [place] [address] Starla Sheriff CRNP [address] [place] [address] Scheduled Procedures Name Priority Associated Diagnoses Date/Ti [...] Advance Directives occurred with: Patient Care Teams Report Clerk Relationship Specialty Start Date End Date Payal Myers MD [address] [place] [address] PCP - General Family Medicine 01/21/24 documented as of this encounter
--- OUTSIDE RECORDS SUMMARY | 2024-11-10 01:30 | External Medical Summary | Summary of Care ---
Author Name Unknown Organization [facility] Address [address] [facility] [address] Phone [phone] Care Team Providers Care Ton Container Filler Name Role Phone Payal Myers MD Primary Care Provider [phone] Reason for Visit * Reason Onset Date Comments Test Results 11/09/2024 Encounter Details Date Type Department Care Team (Late st Contact Info) Description 11/09/2024 Telephone Gastroenterology, [facility] [address] [place] [address] Starla Sheriff CRNP [address] [place] [address] Test Results Allergies Active Allergy Reactions Criticality Noted Date [...] Tablet 3 08/03/2024 Active Ergocalciferol 1.25 MG (38676 UT) Oral Capsule (Vitamin D2(Drisdol)) Take 1 Capsule by mouth once a week. 12 Capsule 3 08/13/2024 Active fluvoxaMINE Maleate 25 MG Oral Tablet (Luvox)Indicati ons:Moderate episode of recurrent major depressive disorder (HCC),LUDA (generalized anxiety disorder) Take 1 Tablet by mouth every night at bedtime. Active Magic Swizzle (Lidocaine-[place] dryl-Maalox) oral solution Swish and spit 15 [...] encounter Miscellaneous Notes * Telephone Encounter - Sharon Guerin CMA - 11/09/2024 1:51 PM EDT Pt notified of BRYCE note and voiced understanding. * Telephone Encounter - Starla Sheriff CRNP - 11/09/2024 12:59 PM EDT Nursing, Please let the patient know that I reviewed her labs. With how poor she was feeling today in office and the below results I am recommending her to be evaluated in the ED. She's anemic- but her hemoglobin is stable. No elevated white count. She is developing an PAMELA with her creatine being up at 1.3, she's not eating or drinking well per her mother. The ED can give her some fluids if need be. Calcium is also elevated. I am also concerned about her elevated LFTs. Lipase is pending. TAYLOR Vang and Payal documented in this encounter Plan of Treatment Upcoming Encounters Date Type Department Care Team (Latest Contact Info) Description 11/18/2024 1:00 PM EDT Office Visit Rheumatology [facility] [address] [place] [phone] Neal Vang MD [address] [place] [address] 12/08/2024 9:30 AM EDT Hospital Encounter ENDO [facility], Endoscopy Room [facility] [address] [place] [address] Nroeen Weller MD [address] [place] [address] 12/08/2024 9:30 AM EDT - 12/08/2024 11:00 AM EDT Surgery ENDO [facility], Endoscopy Room [facility] [address] [place] [phone] Noreen Weller MD [address] [place] [address] ENDOSCOPIC RETROGRADE CHOLANGIOPANCREATOGRAPHY (ERCP) DIAGNOSTIC 01/04/2025 11:40 AM EDT Office Visit Family Practice [facility] [address] [place], [place] [address] Payal Myers MD 200 [facility] [place] [address] 01/14/2025 1:00 PM EDT Office Visit Nephrology, [facility] [address] [facility] [place] [address] Yasemin Villaseñor PA-C 200 [facility] [place] [address] 02/19/2025 3:00 PM EDT Office Visit Nephrology, [facility] [address] [facility] [place] [address] Ant Cardona MD [address] [facility] [place] [address] 05/11/2025 2:00 PM EDT Office Visit Gastroenterology , [facility] [address] [place] [phone] Starla Sheriff CRNP [address] [place] [address] Scheduled Procedures Name Priority Associated Diagnoses Date/Ti [...] as of this encounter Results * (ABNORMAL) LIPASE (11/09/2024 12:00 PM EDT) Lipase 688(H) 13 - 60 U/L 11/09/2024 7:36 PM EDT LABORATORY [facility] Blood Venous blood specimen / Unknown Venipuncture / Unknown 11/09/2024 12:00 PM EDT 11/09/2024 12:00 PM EDT Starla WU LAB BLOOD ORDERABLES Fi nal Result LAB[facility]ATORY [facility] [address] [place] [address] documented in this encounter Visit Diagnoses Diagnosis Acute pancreatitis without infection or necrosis, unspecified pancreatitis type- Primary Abdominal pain, left lower quadrant Acute pancreatitis [...] Advance Directives occurred with: Patient Care Teams Ton Container Filler Relationship Specialty Start Date End Date Payal Myers MD 200 [facility] [place] [address] PCP - General Family Medicine 01/21/24 documented as of this encounter
--- OUTSIDE RECORDS SUMMARY | 2024-11-10 01:30 | External Medical Summary ---
Author Name Unknown Address Unknown Organization [id number]:[facility] - [address] [place] [address] Laboratory Report Ordering Provider Test Date Status MARTHA CASTELLANOS 11/09/2024 12:00:12 Final Observation Date Value Abnormality Reference (Units ) Status Magnesium 11/09/2024 12:00:12 1.5 1.5-2.6 (m g/dL) Final Performing Location [facility] [address] [place] [address]
[2024-11-10] MEDS ORDERED: SODIUM CHLORIDE 1 GM TABLET PO SCH (09:00)
[2024-11-10] MEDS ORDERED: FENOFIBRATE NANOCRYSTALLIZED 145 MG TABLET PO SCH (09:00)
[2024-11-10] MEDS ORDERED: CYANOCOBALAMIN (B-12) 500 MCG TABLET PO SCH (09:00)
[2024-11-10] MEDS ORDERED: FERROUS SULFATE 325 MG TAB PO SCH (09:00)
--- NOTE | 2024-11-11 10:14 | Electrocardiogram Report ---
Test Reason : Blood Pressure : */* mmHG Vent. Rate : 133 BPM Atrial Rate : 133 BPM P-R Int : 138 ms QRS Dur : 68 ms QT Int : 276 ms P-R-T Axes : 65 70 56 degrees QTcB Int : 410 ms Sinus tachycardia Low voltage QRS Borderline ECG When compared with ECG of 07-Jul-2024 22:08, No significant change was found Confirmed by Mariano Mann ([id number]) on 11/11/2024 10:14:05 AM Referred By: REFERRED SELF Confirmed By: Mariano Mann
[2024-11-12] MEDS ORDERED: ERGOCALCIFEROL 1250 MCG (50,000 UNITS) CAP PO SCH (09:00)
== END 2024-11-09 23:25 | disposition short-term general hospital (02) | DRG 82 ==
LOC: ED 14:35 → 2S 18:12

== ENCOUNTER 2025-03-08 11:58 | Inpatient (IN) ==
--- NOTE | 2025-03-08 13:00 | Emergency Department Note ---
History of Present Illness General Chief complaint: Illness Stated complaint: LIGHTHEADED, NO ENERGY, NOT MUCH APPETITE Time Seen by Provider: 03/08/25 12:45 History of Present Illness Maximum Pain Intensity: 4 This is a 29-year-old female who presents to the emergency department via private vehicle accompanied by mother with complaints of "lightheaded, no energy, not much appetite". The patient states that over the past few days she has felt "lightheaded". She notes that she is dizzy and feels like she is going to fall. She also notes no appetite and although she is trying to eat notes that food does not taste "good". The patient also notes a mild cough in the mouth feels dry. Cough is nonproductive. She does note at the end of October of this year, she was likely to do [facility] in [place]. The patient does note chronic chest pain, nothing new. No fever. She does note chronic left upper quadrant abdominal pain which is not new. She notes history of chronic pancreatitis as well. Home Medications Medication Instructions Recorded Confirmed Type omeprazole 20 mg capsule,delayed 20 mg PO PM 07/03/24 03/08/25 History release Women's Multivitamin 1 tab PO .AROUND NOON 03/08/25 03/08/25 History cetirizine 10 mg tablet (Zyrtec) 10 mg PO DAILY 03/08/25 03/08/25 History cholecalciferol (vitamin D3) 25 25 mcg PO DAILY 03/08/25 03/08/25 History mcg (1,000 unit) tablet (Vitamin D3) empagliflozin 10 mg tablet 10 mg PO QAM 03/08/25 03/08/25 History (Jardiance) folic acid 1 mg tablet 1 mg PO QAM 03/08/25 03/08/25 History furosemide 20 mg tablet 20 mg PO QAM 03/08/25 03/08/25 History levothyroxine 75 mcg tablet 75 mcg PO QAM 03/08/25 03/08/25 History quluwl-[id number] 1 cap PO UD 03/08/25 03/08/25 History 24,000-76,000-120,000 unit capsule,delayed rel (Creon) lisinopril 2.5 mg tablet 2.5 mg PO QAM 03/08/25 03/08/25 History metoprolol tartrate 25 mg tablet 25 mg PO BID 03/08/25 03/08/25 History prednisone 5 mg tablet 5 mg PO DAILY 03/08/25 03/08/25 History quetiapine 25 mg tablet 25 mg PO HS 03/08/25 03/08/25 History rosuvastatin 10 mg tablet 10 mg PO QAM 03/08/25 03/08/25 History thiamine HCl (vitamin B1) 100 mg 100 mg PO DAILY 03/08/25 03/08/25 History tablet upadacitinib 15 mg tablet,extended 15 mg PO DAILY 03/08/25 03/08/25 History release 24 hr (Rinvoq) vitamin A 3 mg PO DAILY 03/08/25 03/08/25 History Allergies Allergy/AdvReac Type Severity Reaction Status Date / Time adalimumab-atto Allergy Severe Chills and Verified 08/31/24 06:01 [From Narda()] hot flashes sulfasalazine Allergy Severe Unknown Verified 08/31/24 06:01 Skin Reaction metoclopramide [From Reglan] AdvReac Intermediate facial Verified 08/31/24 06:01 twitch Past Med/Surg History Problem List (Updated 03/08/25 @ 18:34 by Rayray Santiago PA-C) Hyponatremia (Acute) Hypotension (Acute) Hypotension due to medication Hypotension due to hypovolemia Chronic heart failure with preserved ejection fraction Anemia of chronic disease Dehydration with hyponatremia Elevated troponin (Acute) Hypomagnesemia (Acute) Protein-calorie malnutrition (Acute) Sinus tachycardia (Acute) Gallstone pancreatitis Depression Hypothyroidism (acquired) 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, 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 Migraine Leukocytopenia Seronegative polyarthritis (Acute) Anemia (Acute) Sinus tachycardia Arthralgia Anxiety Medical History GERD (gastroesophageal reflux disease) History of pleural effusion Undifferentiated inflammatory polyarthritis Malnutrition Macrophage activation syndrome History of electrolyte imbalance 2023 History of sinus tachycardia denies issues, feels due to recent hospitalization, reaction to medication Migraines Anemia Seronegative polyarthritis Still's disease of adult diagnosed then told not sure if she does have Still's disease, follows with Dr Malcolm 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 Depression Anxiety Surgical History History of wisdom tooth extraction History of lymph node biopsy Family History Grandfather (Paternal) Myocardial infarction Father Myocardial infarction Family/Other Diabetes cousin Grandmother (Maternal) Pancreatoblastoma Social History Smoking Status: Never smoker Second Hand Exposure: No; Do You Dip or Chew Tobacco: No; Hx Alcohol Use: No Hx Substance Use: No Preferred Language: Honduran Communication Ability: Effective Assistant Account Manager Required: No Beliefs That Will Affect Care: None Current Living Situation: Family Current Living Situation Comment: Lives with mom Feels Safe at Home: Yes Assistive Devices: Glasses Review of Systems A total of 10 systems reviewed and were otherwise negative Physical Exam Vital Signs Vital Signs - 24 hr 03/08/25 12:14 03/08/25 12:24 03/08/25 12:29 Temperature 37.4 C Temperature Source Oral Pulse Rate 103 H 95 H 109 H Pulse Rate [Apical] Respiratory Rate 17 20 Respiratory Effort / Characteristics Non-Labored Spontaneous Respiratory Depth Normal Respiratory Pattern Regular Blood Pressure 79/49 L 81/60 L Blood Pressure [Right Arm] Blood Pressure Mean 59 69 Blood Pressure Mean [Right Arm] Blood Pressure Position [Right Arm] Pulse Oximetry 96 Oxygen Delivery Method Room Air Sepsis Recent Fever Within 48 Hours Yes Sepsis New/Unexplained Change in Mental Status No Sepsis Action Taken by Nursing No Action Required 03/08/25 13:09 03/08/25 13:30 03/08/25 14:00 Temperature Temperature Source Pulse Rate 90 88 85 Pulse Rate [Apical] Respiratory Rate 28 H 20 20 Respiratory Effort / Characteristics Respiratory Depth Respiratory Pattern Blood Pressure 92/49 L 93/50 L Blood Pressure [Right Arm] Blood Pressure Mean 59 62 Blood Pressure Mean [Right Arm] Blood Pressure Position [Right Arm] Pulse Oximetry 95 95 Oxygen Delivery Method Room Air Room Air Sepsis Recent Fever Within 48 Hours Sepsis New/Unexplained Change in Mental Status Sepsis Action Taken by Nursing 03/08/25 14:30 03/08/25 16:41 03/08/25 16:43 Temperature 38.0 C H Temperature Source Oral Pulse Rate 82 87 Pulse Rate [Apical] 88 Respiratory Rate 22 16 Respiratory Effort / Characteristics Non-Labored Spontaneous Respiratory Depth Normal Respiratory Pattern Regular Blood Pressure 99/56 L Blood Pressure [Right Arm] 90/41 L Blood Pressure Mean 64 Blood Pressure Mean [Right Arm] 57 Blood Pressure Position [Right Arm] Semi-fowlers Pulse Oximetry 95 97 Oxygen Delivery Method Room Air Room Air Sepsis Recent Fever Within 48 Hours Sepsis New/Unexplained Change in Mental Status Sepsis Action Taken by Nursing 03/08/25 18:00 03/08/25 18:06 03/08/25 18:19 Temperature 37.3 C Temperature Source Oral Pulse Rate 85 Pulse Rate [Apical] 89 Respiratory Rate 16 18 Respiratory Effort / Characteristics Non-Labored Respiratory Depth Normal Respiratory Pattern Blood Pressure Blood Pressure [Right Arm] 89/52 L Blood Pressure Mean Blood Pressure Mean [Right Arm] 64 Blood Pressure Position [Right Arm] Semi-fowlers Pulse Oximetry 95 99 Oxygen Delivery Method Room Air Room Air Room Air Sepsis Recent Fever Within 48 Hours Sepsis New/Unexplained Change in Mental Status Sepsis Action Taken by Nursing VITAL SIGNS - Vital signs and nursing notes were reviewed. Hypotensive, tachycardic, otherwise stable and afebrile. GENERAL -29-year-old female appearing her stated age who is in no acute distress. Communicates well with provider and answers questions appropriately. SKIN - Without rashes. No meningeal or petechial rash. HEAD - NC/AT. EYES - PERRL with EOMI bilaterally. Sclera anicteric. EARS - No deformities of external structures noted on gross examination bilaterally. NOSE - Midline and without cyanosis. No epistaxis or purulent drainage noted. MOUTH/OROPHARYNX - Without perioral cyanosis. Buccal mucosa pink and moist and without leukoplakia. Tongue midline with equal elevation of palate bilaterally. No tonsillar hypertrophy, erythema, or exudates noted. Good dentition noted. NECK - Neck with FROM. Supple to palpation. No lymphadenopathy noted. No nuchal rigidity. LUNGS - Chest wall symmetric without accessory muscle use, intercostals retractions, or central cyanosis. Normal vesicular breath sounds CTA B/L. No wheezes, rales, or rhonchi appreciated. CARDIAC - RRR with S1/S2. No murmur, rubs, or gallops appreciated. ABDOMEN - Abdominal contour normal without pulsations or visible masses. BS normoactive all four quadrants. No tenderness, palpable masses, hepatosplenomegaly, or ascites noted. EXTREMITIES - No clubbing or peripheral cyanosis. +5/5 strength noted in UE/LE bilaterally. NEUROLOGIC - Cranial nerves II through XII grossly intact. PSYCH -alert, oriented and pleasant on exam. Course Administered Medications Sodium Chloride (Nss) 1,000 mls @ 100 mls/hr IV .Q10H ABBY Stop: 03/11/25 15:44 Last Admin: 03/08/25 16:03 Dose: 100 mls/hr Documented By: NATALIE Discontinued Medications Sodium Chloride (Nss) 1,000 mls @ 999 mls/hr IV .Q1H1M ONE Stop: 03/08/25 13:59 Last Infusion: 03/08/25 14:30 Dose: Infused Documented By: Infusion: 03/08/25 13:37 Dose: 999 mls/hr Documented By: Infusion: 03/08/25 13:24 Dose: 0 mls/hr Documented By: Admin: 03/08/25 13:21 Dose: 999 mls/hr Documented By: GISSEL Sodium Chloride (Nss) 1,000 mls @ 999 mls/hr IV .Q1H1M ONE Stop: 03/08/25 17:48 Last Admin: 03/08/25 16:59 Dose: 999 mls/hr Documented By: SAHIL Medical Decision Making Laboratory Data 03/08/25 12:30 03/08/25 12:30 Lab Results 03/08/25 03/08/25 03/08/25 Range/Units 12:30 12:37 15:17 WBC 5.36 (4.8-10.8) K/ul RBC 3.85 L (4.20-5.40) M/uL Hgb 10.0 L (12.0-16.0) g/dl Hct 31.2 L (37.0-47.0) % MCV 81.0 (80.0-100.0) fL MCH 26.0 (25.0-34.0) pg MCHC 32.1 (32.0-36.0) g/dL RDW Std Deviation 38.3 (36.4-46.3) fL RDW Coeff of Jackie 13.1 (11.5-14.5) % Plt Count 425 H (130-400) K/uL MPV 9.2 L (9.4-12.4) fL Immature Gran % (Auto) 2.1 % Neut % (Auto) 88.6 % Lymph % (Auto) 6.5 % Carver % (Auto) 2.6 % Eos % (Auto) 0.0 % Baso % (Auto) 0.2 % Neut # (Auto) 4.75 (1.40-6.50) K/uL Lymph # (Auto) 0.35 L (1.20-3.40) K/uL Carver # (Auto) 0.14 (0.11-0.59) K/uL Eos # (Auto) 0.00 (0.00-0.50) K/uL Baso # (Auto) 0.01 (0.00-0.20) K/uL Immature Gran # (Auto) 0.11 (0.01-0.20) K/uL PT 10.8 (9.0-12.0) Seconds INR 1.0 (0.9-1.1) APTT 29 (21-31) Seconds PTT Ratio 1.1 Sodium 126 L (136-145) mmol/L Potassium 4.5 (3.5-5.1) mmol/L Chloride 94 L (98-107) mmol/L Carbon Dioxide 28 (21-32) mmol/L Anion Gap 4 (3-11) BUN 21 (6-23) mg/dl Creatinine 0.69 (0.6-1.2) mg/dl Est Cr Clr Drug Dosing Not Reportable eGFR 121.91 BUN/Creatinine Ratio 30.4 H (10-20) Glucose 106 H (70-99(Fasting)) mg/dl Lactate 0.8 (0.4-2.0) mmol/L Calcium 9.8 (8.6-10.3) mg/dl Magnesium 2.2 (1.7-2.4) mg/dl Total Bilirubin 0.3 (0.2-1.0) mg/dl AST 155 H (13-39) U/L ALT 72 H (7-52) U/L Alkaline Phosphatase 31 L (34-104) U/L Troponin I High Sens 52.7 H* 52.3 H* (0-14) pg/ml Total Protein 7.2 (6.0-8.3) gm/dl Albumin 3.1 L (3.4-5.0) gm/dl Globulin 4.1 H (2.5-4.0) gm/dl Albumin/Globulin Ratio 0.8 L (0.9-2) Lipase 31 (11-82) U/L Procalcitonin 0.08 (0-0.5) ng/ml TSH 2.533 (0.300-4.500) uIu/ml HCG, Qual Negative (Negative) Lyme Disease Screen Negative (Negative) EBV Capsid Ag IgG Ab Positive EBV Caps Ag IgG Sig Str > 750.0 (< 18.0) U/mL EBV Capsid Ag IgM Ab Negative EBV Caps Ag IgM Sig Str < 10.0 (< 36.0) U/mL EBV Early Antigen IgG Positive A (Negative) EBV EA Signal Strength 25.2 (< 9.0) U/mL EBV Nuclear Antigen Ab Negative EBV Nucl Ag IgG Sig Str < 3.0 (< 18.0) U/mL EBV Interpretation See Comment Monoscreen Negative (Negative) 03/08/25 Range/Units 17:10 WBC (4.8-10.8) K/ul RBC (4.20-5.40) M/uL Hgb (12.0-16.0) g/dl Hct (37.0-47.0) % MCV (80.0-100.0) fL MCH (25.0-34.0) pg MCHC (32.0-36.0) g/dL RDW Std Deviation (36.4-46.3) fL RDW Coeff of Jackie (11.5-14.5) % Plt Count (130-400) K/uL MPV (9.4-12.4) fL Immature Gran % (Auto) % Neut % (Auto) % Lymph % (Auto) % Carver % (Auto) % Eos % (Auto) % Baso % (Auto) % Neut # (Auto) (1.40-6.50) K/uL Lymph # (Auto) (1.20-3.40) K/uL Carver # (Auto) (0.11-0.59) K/uL Eos # (Auto) (0.00-0.50) K/uL Baso # (Auto) (0.00-0.20) K/uL Immature Gran # (Auto) (0.01-0.20) K/uL PT (9.0-12.0) Seconds INR (0.9-1.1) APTT (21-31) Seconds PTT Ratio Sodium (136-145) mmol/L Potassium (3.5-5.1) mmol/L Chloride (98-107) mmol/L Carbon Dioxide (21-32) mmol/L Anion Gap (3-11) BUN (6-23) mg/dl Creatinine (0.6-1.2) mg/dl Est Cr Clr Drug Dosing eGFR BUN/Creatinine Ratio (10-20) Glucose (70-99(Fasting)) mg/dl Lactate (0.4-2.0) mmol/L Calcium (8.6-10.3) mg/dl Magnesium (1.7-2.4) mg/dl Total Bilirubin (0.2-1.0) mg/dl AST (13-39) U/L ALT (7-52) U/L Alkaline Phosphatase (34-104) U/L Troponin I High Sens 47.0 H (0-14) pg/ml Total Protein (6.0-8.3) gm/dl Albumin (3.4-5.0) gm/dl Globulin (2.5-4.0) gm/dl Albumin/Globulin Ratio (0.9-2) Lipase (11-82) U/L Procalcitonin (0-0.5) ng/ml TSH (0.300-4.500) uIu/ml HCG, Qual (Negative) Lyme Disease Screen (Negative) EBV Capsid Ag IgG Ab EBV Caps Ag IgG Sig Str (< 18.0) U/mL EBV Capsid Ag IgM Ab EBV Caps Ag IgM Sig Str (< 36.0) U/mL EBV Early Antigen IgG (Negative) EBV EA Signal Strength (< 9.0) U/mL EBV Nuclear Antigen Ab EBV Nucl Ag IgG Sig Str (< 18.0) U/mL EBV Interpretation Monoscreen (Negative) Imaging Data Radiologist's Impression: Chest X-Ray 03/08/25 12:58 XR chest 1V not portable CLINICAL HISTORY: dizziness COMPARISON STUDY: 11/09/2024 FINDINGS: Heart size and pulmonary vasculature are normal. No consolidation or pleural effusion. No pneumothorax. IMPRESSION: No acute findings. ACT 112: Negative or not required by law. Electronically signed by: Salvador Woods M.D. 03/08/2025 1:24 PM KUB X-Ray 03/08/25 13:00 KUB HISTORY: dizziness COMPARISON STUDY: 10/19/2023 FINDINGS: There are right upper quadrant surgical clips. There is moderate retained stool. No bowel obstruction seen. No gross free air. IMPRESSION: No acute findings. ACT 112: Negative or not required by law. The above report was generated using voice recognition software. It may contain grammatical, syntax or spelling errors. Electronically signed by: Salvador Woods M.D. 03/08/2025 1:24 PM MDM Narrative Patient was seen and evaluated as above in room C10. Review was performed of triage nursing notes and vital signs. I did review pertinent previous visits and patient history. After obtaining a thorough history and physical examination the above work up was performed. Patient presents to us today for evaluation of feeling unwell, dizziness and decreased appetite. I will note that upon signing up for the patient, I mainly presented to bedside as pressure in triage was documented to be 79/49. The patient does appear volume depleted and overall dehydrated. There is no fever. EKG per my interpretation reveals normal sinus rhythm at a rate of 100 bpm. QTc 405. QRS 72. No ST elevation on this rhythm tracing. Options of care were discussed with the patient. Chest x-ray and KUB were performed. Per my interpretation these were negative for acute process. IV access was established. Labs were drawn. I did order IV normal saline for this patient. There is no leukocytosis. There is stable anemia with hemoglobin at 10.0. Thrombocytosis 425. Hyponatremia 126. No evidence of kidney failure. There is transaminitis noted. Urinalysis with some blood, otherwise no sign of infection. Troponin returned elevated but will note much improved compared to her previous values. Repeat troponin pending but low suspicion for acute intrathoracic process. Blood cultures pending at this time. I do believe that further evaluation and management in the inpatient setting is warranted. At time of discussion with the hospitalist service, blood pressure 99/56. She has responded quite well to the IV fluids. Patient notes her baseline blood pressure is systolic in the 90s. Patient states she feels back to normal at this time and feels overall quite well. Pending laboratory studies will need to be trended. Case discussed with the hospitalist service. Please refer to further documentation regarding her stay. Antibiotics held at this time as there is no infectious source at this time, the patient appears to be volume depleted. GCS: 15 In the evaluation and treatment of this patient the following differential diagnoses were entertained: Dehydration/volume depletion, electrolyte disturbance, infectious etiology, among others. Impression & Plan Hypotension, Anemia, Elevated troponin, Hyponatremia Discharge Plan Visit Data Chief Complaint: Illness Stated Complaint: LIGHTHEADED, NO ENERGY, NOT MUCH APPETITE ED Provider: Marvin Hayden ED Midlevel Provider: Rayray Santiago Discharge Problem: Hypotension, Anemia, Elevated troponin, Hyponatremia Patient Disposition: Admitted As Inpatient Condition: Good Discharge Instructions Interventions: ED Discharge Assessment Last Done: 03/08/25 18:19
[2025-03-08 13:04] LABS: Hematocrit (blood only) 31.2 % (37.0-47.0); Hemoglobin 10.0 g/dl (12.0-16.0); Mean Corpuscular Hemoglobin 26.0 pg (25.0-34.0); Mean Corpuscular Volume 81.0 fL (80.0-100.0); Platelet Count 425 K/uL (130-400); RDW Standard Deviation 38.3 fL (36.4-46.3); Red Blood Count 3.85 M/uL (4.20-5.40); White Blood Count 5.36 K/ul (4.8-10.8)
[2025-03-08 13:19] LABS: Immature Granulocytes # (auto) 0.11 K/uL (0.01-0.20); Immature Granulocytes % (auto) 2.1 %
[2025-03-08 13:20] LABS: Alanine Aminotransferase 72 U/L (7-52); Albumin Globulin Ratio 0.8 (0.9-2); Alkaline Phosphatase 31 U/L (34-104); Anion Gap 4 (3-11); Bilirubin,Total 0.3 mg/dl (0.2-1.0); Blood Urea Nitrogen 21 mg/dl (6-23); Calcium 9.8 mg/dl (8.6-10.3); Carbon Dioxide 28 mmol/L (21-32); Chloride 94 mmol/L (98-107); Globulin 4.1 gm/dl (2.5-4.0); Glucose 106 mg/dl (70-99(Fasting)); Potassium 4.5 mmol/L (3.5-5.1); Sodium 126 mmol/L (136-145); Total Protein 7.2 gm/dl (6.0-8.3)
[2025-03-08 13:21] LABS: Appearance Urine Clear (Clear); Glucose Urine UA 2+ (Negative)
[2025-03-08] MEDS: SODIUM CHLORIDE 0.9% 1,000 ML IV ONE ×2 (13:21→16:59)
--- NOTE | 2025-03-08 13:25 | XRay Report ---
XR chest 1V not portable CLINICAL HISTORY: dizziness COMPARISON STUDY: 11/09/2024 FINDINGS: Heart size and pulmonary vasculature are normal. No consolidation or pleural effusion. No p neumothorax. IMPRESSION: No acute findings. ACT 112: Negative or not required by law. Electronically signed by: Salvador Woods M.D. 03/08/2025 1:24 PM
--- NOTE | 2025-03-08 13:26 | XRay Report ---
KUB HISTORY: dizziness COMPARISON STUDY: 10/19/2023 FINDINGS: There are right upper quadrant surgical clips. There is moderate retained stool. No bowel o bstruction seen. No gross free air. IMPRESSION: No acute findings. ACT 112: Negative or not required by law. The above report was generated using voice recognition software. It may contain grammatical, syntax o r spelling errors. Electronically signed by: Salvador Woods M.D. 03/08/2025 1:24 PM
[2025-03-08 13:44] LABS: Epithelial Cell Urine 0-2 /hpf (0-2)
[2025-03-08 14:42] LABS: Lipase 31 U/L (11-82); Magnesium 2.2 mg/dl (1.7-2.4)
[2025-03-08 14:47] LABS: Pregnancy Test, Serum Negative (Negative)
[2025-03-08 14:58] LABS: Thyroid Stimulating Hormone 2.533 uIu/ml (0.300-4.500)
[2025-03-08 15:03] LABS: Procalcitonin 0.08 ng/ml (0-0.5)
[2025-03-08 15:22] LABS: INR 1.0 (0.9-1.1); Partial Thromboplastin Time 29 Seconds (21-31); Prothrombin Time 10.8 Seconds (9.0-12.0)
[2025-03-08 15:29] LABS: Lyme Screen Rflx Confirmation Negative (Negative)
--- NOTE | 2025-03-08 16:01 | History & Physical Report ---
Date of Service March 08, 2025 Assessment & Plan (1) Dehydration with hyponatremia: (2) Hypotension due to hypovolemia: (3) Hypotension due to medication: (4) Chronic heart failure with preserved ejection fraction: (5) Still's disease of adult: (6) Anemia of chronic disease: (7) Undifferentiated inflammatory polyarthritis: (8) Autoimmune pancreatitis: (9) Macrophage activation syndrome: (10) Severe protein-calorie malnutrition: (11) Hypothyroidism (acquired): (12) Depression: Plan Patient 29-year-old female who presents with symptomatic hypotension and hyponatremia most likely due to hypovolemia in the setting of chronic diuretic use and medications for heart failure. Patient is at risk for worsening symptoms and requires hospital level care Admit to monitored setting Continue IV hydration Hold diuretics Hold antihypertensive medication Monitor sodium electrolytes and renal function Continue other home medications as prescribed Reviewed outpatient echocardiogram from January 2025, ejection fraction is now normal. With patient's symptoms may need to adjust dosages of her heart failure medications moving forward. Patient has chronic elevated troponin this is at her baseline, this is associated with her autoimmune disease, no need to trend Patient also has chronically elevated LFTs again this is associated with stills disease, as with her baseline no need to trend Follow respiratory panel and CMV and Monospot, however low suspicion for infectious process at this time History of Present Illness Chief Complaint: Lightheadedness, fatigue, poor appetite, diarrhea Primary Care Provider: Breezy Chester DO Patient 29-year-old female with a complicated medical history presents to the emergency room with above complaints. In the emergency room she was immediately noted to be quite hypotensive with systolic blood pressure in the 70s. Laboratory studies also showed hyponatremia. Patient rapidly responded to a fluid bolus. Blood pressure immediately improved and her symptoms improved. Patient was referred to our service for further evaluation and treatment of the hyponatremia. Time of my evaluation the patient is feeling significantly better with systolic blood pressure in the upper 90s. She denies any significant fevers. With her chronic medical issues and autoimmune immune disorder she can run a low-grade fever around 99. She has not had any significantly higher fevers recently. She states that she thinks she has been trying to eat and drink adequately. Tries to drink a couple boosts per day. Did have a loose stool yesterday. Has not spent excessive time outside in the heat. She has been compliant with all her heart failure medications. She reports that she just recently had an echocardiogram couple weeks ago which showed that her ejection fraction was back into the normal range. She has chronic abdominal pain associated with chronic pancreatitis and this has not changed in severity or quality recently. No new problems with her urine. Has not had any nausea or vomiting. Allergies Allergy/AdvReac Type Severity Reaction Status Date / Time adalimumab-atto Allergy Severe Chills and Verified 08/31/24 06:01 [From Narda()] hot flashes sulfasalazine Allergy Severe Unknown Verified 08/31/24 06:01 Skin Reaction metoclopramide [From Reglan] AdvReac Intermediate facial Verified 08/31/24 06:01 twitch Home Medications Medication Instructions Recorded Confirmed Type omeprazole 20 mg capsule,delayed 20 mg PO PM 07/03/24 03/08/25 History release Women's Multivitamin 1 tab PO .AROUND NOON 03/08/25 03/08/25 History cetirizine 10 mg tablet (Zyrtec) 10 mg PO DAILY 03/08/25 03/08/25 History cholecalciferol (vitamin D3) 25 25 mcg PO DAILY 03/08/25 03/08/25 History mcg (1,000 unit) tablet (Vitamin D3) empagliflozin 10 mg tablet 10 mg PO QAM 03/08/25 03/08/25 History (Jardiance) folic acid 1 mg tablet 1 mg PO QAM 03/08/25 03/08/25 History furosemide 20 mg tablet 20 mg PO QAM 03/08/25 03/08/25 History levothyroxine 75 mcg tablet 75 mcg PO QAM 03/08/25 03/08/25 History teqgdy-mkwzntuy-vsokgen 1 cap PO UD 03/08/25 03/08/25 History 24,000-76,000-120,000 unit capsule,delayed rel (Creon) lisinopril 2.5 mg tablet 2.5 mg PO QAM 03/08/25 03/08/25 History metoprolol tartrate 25 mg tablet 25 mg PO BID 03/08/25 03/08/25 History prednisone 5 mg tablet 5 mg PO DAILY 03/08/25 03/08/25 History quetiapine 25 mg tablet 25 mg PO HS 03/08/25 03/08/25 History rosuvastatin 10 mg tablet 10 mg PO QAM 03/08/25 03/08/25 History thiamine HCl (vitamin B1) 100 mg 100 mg PO DAILY 03/08/25 03/08/25 History tablet upadacitinib 15 mg tablet,extended 15 mg PO DAILY 03/08/25 03/08/25 History release 24 hr (Rinvoq) vitamin A 3 mg PO DAILY 03/08/25 03/08/25 History Past Med/Surg History Problem List (Updated 03/08/25 @ 15:57 by Drew Wills DO) Hypotension due to medication Hypotension due to hypovolemia Chronic heart failure with preserved ejection fraction Anemia of chronic disease Dehydration with hyponatremia Elevated troponin (Acute) Hypomagnesemia (Acute) Protein-calorie malnutrition (Acute) Sinus tachycardia (Acute) Gallstone pancreatitis Depression Hypothyroidism (acquired) 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, 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 Migraine Leukocytopenia Seronegative polyarthritis (Acute) Anemia Sinus tachycardia Arthralgia Anxiety Medical History GERD (gastroesophageal reflux disease) History of pleural effusion Undifferentiated inflammatory polyarthritis Malnutrition Macrophage activation syndrome History of electrolyte imbalance 2023 History of sinus tachycardia denies issues, feels due to recent hospitalization, reaction to medication Migraines Anemia Seronegative polyarthritis Still's disease of adult diagnosed then told not sure if she does have Still's disease, follows with Dr Malcolm 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 Depression Anxiety Surgical History History of wisdom tooth extraction History of lymph node biopsy Family History Grandfather (Paternal) Myocardial infarction Father Myocardial infarction Family/Other Diabetes cousin Grandmother (Maternal) Pancreatoblastoma Social History Smoking Status: Never smoker Second Hand Exposure: No; Do You Dip or Chew Tobacco: No; Hx Alcohol Use: No Hx Substance Use: No Preferred Language: Greek Communication Ability: Effective Front Sight Attacher Required: No Beliefs That Will Affect Care: None Current Living Situation: Family Current Living Situation Comment: Lives with mom Feels Safe at Home: Yes Assistive Devices: Glasses Review of Systems Review of Systems: Pertinent positive and negative review of systems as mentioned in the HPI Physical Exam Physical Exam: Constitutional: Alert, ill in appearance, underweight, somewhat frail nontoxic HEENT: Mucous membranes dry, sclera slightly injected Neck: Soft, no adenopathy Lungs: Clear to auscultation, decreased, no wheezes rales or rhonchi CV: S1-S2, regular Abdomen: Soft, mild diffuse chronic tenderness, nondistended, no guarding, no rigidity, hepatomegaly Extremities: No significant edema Musculoskeletal: No significant joint tenderness Neuro: No focal deficits generally weak Psych: Cooperative, normal mood, flat affect Results & Data Results & Data Vital Signs (Past 12 Hours) Vital Signs Temp Pulse Resp BP Pulse Ox O2 Del Method 03/08/25 14:30 82 22 99/56 L 95 Room Air 03/08/25 14:00 85 20 93/50 L 95 Room Air 03/08/25 13:30 88 20 92/49 L 95 Room Air 03/08/25 13:09 90 28 H 03/08/25 12:29 109 H 03/08/25 12:24 95 H 20 81/60 L 03/08/25 12:14 37.4 C 103 H 17 79/49 L 96 Room Air Diagnostic Findings Reviewed imaging, laboratory and diagnostic studies. Pertinent findings as below. WBCs 5.3 Hemoglobin 10.0 Platelets of 425 Coagulation panel within normal range Sodium 126 Chloride 94 Creatinine 0.69 Glucose 106 LFTs reviewed, chronically elevated, essentially within her baseline Troponin 52.7, chronically elevated and at her baseline TSH 2.5 Procalcitonin 0.08 hCG negative Urinalysis unremarkable for signs of infection Respiratory viral panel pending Lyme screen negative Personally reviewed chest x-ray, no acute infiltrative process KUB reviewed, no evidence of obstruction Personally reviewed EKG, sinus rhythm Code Status & VTE Plan VTE Prophylaxis Plan VTE Prophylaxis will be ordered: Yes (12) Depression Depression Type: other depression Qualified Code(s): F32.89 - Other specified depressive episodes
[2025-03-08] MEDS: SODIUM CHLORIDE 0.9% 1,000 ML IV SCH (16:03)
[2025-03-08 16:52] LABS: Chlamydia pneumoniae PCR Not Detected (NotDetected); Coronavirus 229E PCR Not Detected (NotDetected); Coronavirus CoV-2 (COVID19)PCR Not Detected (NotDetected); Coronavirus HKU1 PCR Not Detected (NotDetected); Coronavirus NL63 PCR Not Detected (NotDetected); Coronavirus OC43PCR Not Detected (NotDetected); Human Metapneumovirus PCR Not Detected (NotDetected); Parainfluenza Virus 1 PCR Not Detected (NotDetected); Parainfluenza Virus 2 PCR Not Detected (NotDetected); Parainfluenza Virus 3 PCR Not Detected (NotDetected); Parainfluenza Virus 4 PCR Not Detected (NotDetected); Respiratory Syncytial VirusPCR Not Detected (NotDetected); Rhinovirus/Enterovirus PCR Not Detected (NotDetected)
[2025-03-08 17:15] LABS: EBV Nuclear Antigen IgG Ab Negative; EBV Nuclear Antigen IgG Quant < 3.0 U/mL (< 18.0)
[2025-03-08 17:16] LABS: EBV Early Antigen IgG Ab Positive (Negative); EBV Early Antigen IgG Quant 25.2 U/mL (< 9.0)
[2025-03-08 17:17] LABS: EBV IgG Quant > 750.0 U/mL (< 18.0); EBV IgM Quant < 10.0 U/mL (< 36.0)
[2025-03-08] MEDS ORDERED: ALUMINUM/MAGNESIUM SUSP 30 ML UDC PO PRN (18:27)
[2025-03-08] MEDS ORDERED: ONDANSETRON INJ 2 MG/ML 2 ML VIAL IV PRN (18:27)
[2025-03-08] MEDS ORDERED: ACETAMINOPHEN 325 MG TAB PO PRN (18:27)
[2025-03-08] MEDS: PANCREAZE (LIPASE 16,800U) CAP PO SCH (19:06)
[2025-03-08] MEDS: ENOXAPARIN INJ 40 MG/0.4 ML SYR SQ SCH (20:29)
[2025-03-08 20:31] LABS: Anion Gap 6 (3-11); Blood Urea Nitrogen 19 mg/dl (6-23); Calcium 8.5 mg/dl (8.6-10.3); Carbon Dioxide 21 mmol/L (21-32); Chloride 103 mmol/L (98-107); Glucose 103 mg/dl (70-99(Fasting)); Potassium 3.7 mmol/L (3.5-5.1); Sodium 130 mmol/L (136-145)
[2025-03-09 03:59] VITALS: O2SAT 96
[2025-03-09] MEDS: LEVOTHYROXINE SODIUM 75 MCG TABLET PO SCH (05:32)
[2025-03-09 06:30] LABS: Hematocrit (blood only) 26.3 % (37.0-47.0); Hemoglobin 8.5 g/dl (12.0-16.0); Mean Corpuscular Hemoglobin 26.2 pg (25.0-34.0); Mean Corpuscular Volume 81.2 fL (80.0-100.0); Platelet Count 335 K/uL (130-400); RDW Standard Deviation 38.0 fL (36.4-46.3); Red Blood Count 3.24 M/uL (4.20-5.40); White Blood Count 3.80 K/ul (4.8-10.8)
[2025-03-09 06:50] LABS: Anion Gap 5 (3-11); Blood Urea Nitrogen 19 mg/dl (6-23); Calcium 8.7 mg/dl (8.6-10.3); Carbon Dioxide 24 mmol/L (21-32); Chloride 106 mmol/L (98-107); Glucose 84 mg/dl (70-99(Fasting)); Potassium 3.6 mmol/L (3.5-5.1); Sodium 135 mmol/L (136-145)
[2025-03-09 08:15] VITALS: BP 94/44; PULSE 105; RESP 20; TEMP 100.6
[2025-03-09] MEDS: CHOLECALCIFEROL 25 MCG (1000 UNITS) TAB PO SCH (08:26)
[2025-03-09] MEDS: ROSUVASTATIN CALCIUM 10 MG TAB PO SCH (08:26)
[2025-03-09] MEDS: THIAMINE HCL 100 MG TAB PO SCH (08:26)
[2025-03-09] MEDS: FOLIC ACID 1 MG TAB PO SCH (08:26)
[2025-03-09] MEDS: CETIRIZINE HCL 10 MG TABLET PO SCH (08:26)
[2025-03-09] MEDS: UPADACITINIB 15 MG PO SCH (08:27)
[2025-03-09] MEDS ORDERED: VITAMIN A PO SCH (09:00)
--- NOTE | 2025-03-09 09:07 | Discharge Summary ---
Discharge Summary Date of Service March 09, 2025 Principal Dx & Hospital Course #1 = Principal Diagnosis (1) Dehydration with hyponatremia: (2) Hypotension due to hypovolemia: (3) Hypotension due to medication: (4) Chronic heart failure with preserved ejection fraction: (5) Still's disease of adult: (6) Anemia of chronic disease: (7) Undifferentiated inflammatory polyarthritis: (8) Autoimmune pancreatitis: (9) Macrophage activation syndrome: (10) Severe protein-calorie malnutrition: (11) Hypothyroidism (acquired): (12) Depression: (13) History of Linnea-Khalil virus infection: Plan Patient 29-year-old female with complicated medical history presented with weakness and fatigue. Noted to be hypotensive and hyponatremic. Patient was admitted to the hospital. She is on multiple medications for a cardiomyopathy that can decrease blood pressure. She is also on furosemide which can also cause volume depletion and hyponatremia. Patient was given fluid resuscitation. These medications were held. Patient responded favorably to these interventions. By the following morning she was sitting up eating her breakfast. She had no lightheadedness or dizziness. Her weakness had significantly improved. Her sodium had significantly improved. Patient had a recent follow-up echocardiogram which showed that her ejection fraction had returned to normal. At this time I feel that the adverse effects and risks of continuing on the goal-directed medical therapy for her cardiomyopathy far outweigh any benefits. She is instructed to continue to hold the lisinopril, metoprolol, Jardiance, furosemide. 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 She is encouraged to continue eating a healthy diet with protein supplementation. I suspect some of her symptoms are also compounded from insensible water losses just with the heat of summer. She does state that she walks outside and just may not have kept up with her water intake. She is encouraged to maintain adequate water intake especially if she is outside a lot in the summer heat. Her blood pressure had improved at the time of discharge. Should be discharged to follow-up with outpatient providers. Notes For Next Care Provider Follow-up with cardiology, determine if she can tolerate any medications for her cardiomyopathy Medication Changes From Visit Jardiance, Lasix, metoprolol, lisinopril all held due to hypotension hyponatremia Admission HPI Per Admitting Provider Patient 29-year-old female with a complicated medical history presents to the emergency room with above complaints. In the emergency room she was immediately noted to be quite hypotensive with systolic blood pressure in the 70s. Laboratory studies also showed hyponatremia. Patient rapidly responded to a fluid bolus. Blood pressure immediately improved and her symptoms improved. Patient was referred to our service for further evaluation and treatment of the hyponatremia. Time of my evaluation the patient is feeling significantly better with systolic blood pressure in the upper 90s. She denies any significant fevers. With her chronic medical issues and autoimmune immune disorder she can run a low-grade fever around 99. She has not had any significantly higher fevers recently. She states that she thinks she has been trying to eat and drink adequately. Tries to drink a couple boosts per day. Did have a loose stool yesterday. Has not spent excessive time outside in the heat. She has been compliant with all her heart failure medications. She reports that she just recently had an echocardiogram couple weeks ago which showed that her ejection fraction was back into the normal range. She has chronic abdominal pain associated with chronic pancreatitis and this has not changed in severity or quality recently. No new problems with her urine. Has not had any nausea or vomiting. Admission Exam Per Admitting Provider See H&P Discharge Exam Constitutional: Alert, significantly improved in appearance but continues to be underweight HEENT: Mucous membranes moist. Lungs: Clear to auscultation, decreased, no wheezes rales or rhonchi CV: S1-S2, regular Abdomen: Soft, nontender, nondistended Extremities: No significant edema Neuro: No focal deficits Psych: Cooperative, normal mood Updated Medication List Medication Instructions Recorded Confirmed Type omeprazole 20 mg capsule,delayed 20 mg PO PM 07/03/24 03/08/25 History release Women's Multivitamin 1 tab PO .AROUND NOON 03/08/25 03/08/25 History cetirizine 10 mg tablet (Zyrtec) 10 mg PO DAILY 03/08/25 03/08/25 History cholecalciferol (vitamin D3) 25 25 mcg PO DAILY 03/08/25 03/08/25 History mcg (1,000 unit) tablet (Vitamin D3) empagliflozin 10 mg tablet 10 mg PO QAM 03/08/25 03/08/25 History (Jardiance) folic acid 1 mg tablet 1 mg PO QAM 03/08/25 03/08/25 History furosemide 20 mg tablet 20 mg PO QAM 03/08/25 03/08/25 History levothyroxine 75 mcg tablet 75 mcg PO QAM 03/08/25 03/08/25 History oeqwmc-enmaguyf-ntivapf 1 cap PO UD 03/08/25 03/08/25 History 24,000-76,000-120,000 unit capsule,delayed rel (Creon) lisinopril 2.5 mg tablet 2.5 mg PO QAM 03/08/25 03/08/25 History metoprolol tartrate 25 mg tablet 25 mg PO BID 03/08/25 03/08/25 History prednisone 5 mg tablet 5 mg PO DAILY 03/08/25 03/08/25 History quetiapine 25 mg tablet 25 mg PO HS 03/08/25 03/08/25 History rosuvastatin 10 mg tablet 10 mg PO QAM 03/08/25 03/08/25 History thiamine HCl (vitamin B1) 100 mg 100 mg PO DAILY 03/08/25 03/08/25 History tablet upadacitinib 15 mg tablet,extended 15 mg PO DAILY 03/08/25 03/08/25 History release 24 hr (Rinvoq) vitamin A 3 mg PO DAILY 03/08/25 03/08/25 History Hospital Stay Data Consultations 03/08/25 14:58 ED Decision to Admit Stat Diagnostic Imagining Performed Reviewed imaging, laboratory and diagnostic studies. Pertinent findings as below. WBC 3.8 Hemoglobin 8.5, baseline Platelets of 355 Sodium 135, significantly improved Potassium 3.6 Creatinine 0.56 Magnesium 2.2 Procalcitonin 0.08 TSH 2.53 Linnea-Khalil IgM negative, IgG early antigen positive, suspect sometime in the r ecent past had Linnea-Khalil virus Monospot was negative Pending Results Patient Have Any Pending Studies at Discharge: No Discharge Instructions Given to Patient (Per Discharging Provider) I suspect all of your symptoms were due to your medications compounded by some dehydration with the warm weather that we have had recently. Your most recent echocardiogram shows that your heart is strong. Will continue to hold these medications until you follow-up with cardiology and they can reevaluate your blood pressure. Continue with a nutritious diet and protein supplementation Total Time Total Time Spent Total Time Spent (In Minutes): 24
[2025-03-09] MEDS ORDERED: MULTIVITAMIN TAB PO SCH (12:00)
--- NOTE | 2025-03-12 13:55 | Electrocardiogram Report ---
Test Reason : Blood Pressure : */* mmHG Vent. Rate : 100 BPM Atrial Rate : 100 BPM P-R Int : 128 ms QRS Dur : 72 ms QT Int : 314 ms P-R-T Axes : 70 85 65 degrees QTcB Int : 405 ms Normal sinus rhythm Low voltage QRS Borderline ECG When compared with ECG of 09-Nov-2024 14:52, No significant change was found Confirmed by Jose Reyez ([id number]) on 03/12/2025 1:55:24 PM Referred By: REFERRED SELF Confirmed By: Jose Reyez
== END 2025-03-09 10:58 | disposition home or self-care (01) | DRG 640 ==
LOC: ED 11:58 → 2W 18:19